=== PATIENT | female | born 1945 | race Caucasian/White ===

== ENCOUNTER 2020-05-11 06:57 | Day surgery (SDC) | payer MEDICARE, OTHER ==
[2020-05-09 10:22] VITALS: BMI 28.5
[~2020-05-11 06:57] MED LIST: ALPRAZolam 0.25 MG TAB PO PRN; ALPRAZolam 0.5 MG TAB PO PRN; ASPIRIN 325 MG TAB PO STA; NITROGLYCERIN SL TABS 0.4 MG TAB SUBLINGUAL PRN; SODIUM CHLORIDE 0.9% 1,000 ML in EMPTY BAG 1 BAG IV ONE
[2020-05-11 07:34] VITALS: TEMP 98.1
[2020-05-11] MEDS ORDERED: SODIUM CHLORIDE 0.9% 1,000 ML IV ONE (07:34)
[2020-05-11 07:38] LABS: African American GFR (CKD) >90 (>60 ml/min/1.73 sqM); Blood Urea Nitrogen 28 mg/dL (7-17); Non-African American GFR(CKD) 79 (>60 ml/min/1.73 sqM)
[2020-05-11 07:54] LABS: Basophils # (A) 0.1 k/uL (0-0.2); Basophils % (A) 1 %; Eosinophils # (A) 0.2 k/uL (0-0.7); Eosinophils % (A) 2 %; HCT 53.5 % (34.0-46.0); HGB 17.1 gm/dL (11.4-16.0); Lymphocytes # (A) 3.7 k/uL (1.0-4.8); Lymphocytes % (A) 39 %; MCH 32.3 pg (25.0-35.0); MCHC 31.9 g/dL (31.0-37.0); MCV 101.1 fL (80.0-100.0); Macrocytosis Slight; Mean Platelet Volume 9.5; Monocytes # (A) 0.4 k/uL (0-1.0); Monocytes % (A) 5 %; Neutrophils # (A) 4.9 k/uL (1.3-7.7); Neutrophils % (A) 52 %; Platelet Count 190 k/uL (150-450); RBC 5.29 m/uL (3.80-5.40); RDW 13.7 % (11.5-15.5); WBC 9.5 k/uL (3.8-10.6)
[2020-05-11] MEDS ORDERED: fentaNYL (PF) 50 MCG/ML 2 ML AMP ONE (08:03)
[2020-05-11] MEDS ORDERED: LIDOCAINE 1% INJ 10MG/ML (20 ML MDV) ONE (08:11)
[2020-05-11] MEDS ORDERED: VERAPAMIL 2.5 MG/ML 2 ML AMP ONE (08:12)
[2020-05-11] MEDS ORDERED: BENZOCAINE SPRAY 1 CAN TOPICAL ONE ×2 (08:15→08:19)
[2020-05-11] MEDS ORDERED: fentaNYL (PF) 50 MCG/ML 2 ML AMP IVP ONE (08:19)
[2020-05-11] MEDS ORDERED: MIDAZOLAM 2 MG/2 ML VIAL IVP ONE ×2 (08:19→08:23)
[2020-05-11] MEDS ORDERED: HEPARIN SODIUM 1,000 UN/ML (10ML VL) ONE (08:50)
[2020-05-11] MEDS ORDERED: HEPARIN SODIUM 1,000 UN/ML (10ML VL) IV ONE (08:53)
[2020-05-11] MEDS ORDERED: IV FLUID CONTINUATION 900 ML IV ONE (08:53)
[2020-05-11] MEDS ORDERED: IOPAMIDOL-370 125ML BTL INJ ONE (08:58)
[2020-05-11] MEDS ORDERED: RX INFO: IV CONTRAST WAS GIVEN 1 EACH MISC MISCELLANE PRN (09:05)
[2020-05-11] MEDS ORDERED: SODIUM CHLORIDE 0.9% 1,000 ML IV SCH (09:15)
--- NOTE | 2020-05-11 09:34 | LTR ---
DATE OF SERVICE: 05/11/2020 RE: Sharmila Ayers Dear Dr. Reynolds; Ms. Sharmila Ayers underwent today heart catheterization and that revealed severe triple-vessel coronary artery disease with heavily calcified right and left coronary systems. Giving the above anatomy, I recommended the patient to be seen and evaluated by cardiothoracic surgeon for the evaluation of coronary artery bypass grafting and possibly repairing the mitral valve at the same time. I want to thank you for allowing us to participate in her care and please do not hesitate to call if you have any question or concern. Sincerely, Aakash Adame MD [id number] / OSMANN: [id number] /
[2020-05-11 09:43] VITALS: RESP 16
--- NOTE | 2020-05-11 09:44 | CC ---
CARDIAC CATHETERIZATION REPORT DATE OF SERVICE: 05/11/2020 PERFORMING PHYSICIAN: Aakash Adame MD. PROCEDURE PERFORMED: 1. Selective right and left coronary angiogram. 2. Left heart catheterization. INDICATION: This is a 74-year-old female patient with coronary artery disease and prior stenting of the LCX and LAD as well as hypertension and dyslipidemia and mitral regurgitation, who was experiencing symptoms of increasing shortness of breath with exertion. She underwent recently a myocardial perfusion imaging stress test and that revealed anterior ischemia and because of that, a heart catheterization was advised. APPROACH: Right radial artery. COMPLICATION: None. LEVEL OF SEDATION: Moderate with sedation length of 16 minutes. COMPLICATION: None. PROCEDURE DESCRIPTION: After obtaining an informed consent, the patient was brought to the cardiac sanitation laborer. The right radial artery was cannulated using micropuncture technique, the micropuncture wire passed easily, then I placed a 5-Welsh sheath in the right radial artery. Subsequently I gave the patient 2 mg of verapamil IA and 6000 units of heparin IV. Selective right and left coronary angiogram performed using JR4 and JL3.5 catheters. Left heart catheterization was performed using 5-Welsh pigtail catheter. The procedure was completed without any complication. SELECTIVE CORONARY ANGIOGRAM: 1. The right coronary artery is a large caliber vessel and it is a dominant vessel. The RCA is extremely calcified and chronically occluded in the midportion and fills by bridging collaterals from the left coronary system. 2. The left main is a large left main but is angiographically normal. Bifurcates into left circumflex and left anterior descending artery. 3. The left circumflex is a large caliber vessel, it is a nondominant vessel. The left circumflex is stented in the proximal portion and the midportion of the left circumflex by the bifurcation of a large obtuse marginal branch has a lesion, appeared to be in the range of 70%. OM branch is a large caliber vessel with 2 lesions. The first lesion appeared to be in the range of 80% and the second lesion distally appeared to be in the range of 90%. The left circumflex after OM continues as a moderate caliber vessel in the AV groove. 4. The left anterior descending artery is extremely calcified and diffusely diseased. The proximal LAD has a long tubular lesion, appeared to be in the range of 80%. The LAD after that lesion is stented with mild in-stent restenosis. The mid LAD has another lesion appeared to be in the range of 80% to 90%. The LAD distally appeared to have another lesion in the range of 99.9%. 5. HEMODYNAMICS: The LVEDP was 20 mmHg without significant gradient across aortic. CONCLUSION: 1. Extremely calcified right and left coronary systems. 2. Chronic total occlusion of the right coronary artery which fills by collateral from the left coronary system. 3. Critical disease involving the left circumflex coronary system with multiple lesions. 4. Critical disease involving the proximal, mid and distal left anterior descending artery with tubular lesions as well. 5. The patient mitral regurgitation is likely to be an ischemic MR related to the RCA occlusion. 6. .. POSTPROCEDURE MANAGEMENT: 1. Maximize medical treatment with high intensity statin. 2. Consult the surgeon for the evaluation of coronary artery bypass grafting. 3. Aggressive cholesterol control and blood pressure control. 4. Follow up with the patient. MMLACEY / IJN: [id number] /
[2020-05-11 13:15] VITALS: BP 157/71; PULSE 69
== END 2020-05-11 13:46 | disposition home or self-care (01) ==
LOC: CATHCVL 06:57
PROVIDERS: ATTEND Internal Medicine Interventional Cardiology
DX: I25.110 Atherosclerotic heart disease of native coronary artery with unstable angina pectoris (principal); I25.82 Chronic total occlusion of coronary artery; T82.855A Stenosis of coronary artery stent, initial encounter; I34.0 Nonrheumatic mitral (valve) insufficiency; I10 Essential (primary) hypertension; E78.5 Hyperlipidemia, unspecified; G35 Multiple sclerosis; F17.210 Nicotine dependence, cigarettes, uncomplicated; Z95.5 Presence of coronary angioplasty implant and graft; Z79.51 Long term (current) use of inhaled steroids; Z79.82 Long term (current) use of aspirin; Z79.899 Other long term (current) drug therapy
CPT/HCPCS: 93458; 82565; 84520; 85025; C1769; C1894; J2250; J3010; J1644; Q9967

== ENCOUNTER → 2020-07-10 | Outpatient (CLI) | payer MEDICARE ==
--- NOTE | 2020-07-10 15:38 | XR ---
EXAMINATION TYPE: XR foot complete LT DATE OF EXAM: 07/10/2020 COMPARISON: NONE HISTORY: Pain TECHNIQUE: Three views are submitted. FINDINGS: The osseous structures are intact. There is no acute fracture or dislocation. Joint spaces are p reserved. Soft tissue edema. No osseous destruction. Calcaneal spur noted. IMPRESSION: 1. No acute fracture or dislocation. If symptoms persist, follow-up exam in 7 to 10 days could be ob tained.
== END | disposition home or self-care (01) ==
LOC: RADXRYALE 15:16
PROVIDERS: ATTEND Internal Medicine
DX: L02.416 Cutaneous abscess of left lower limb (principal)

== ENCOUNTER 2020-08-03 10:43 | Day surgery (SDC) | payer MEDICARE ==
[2020-08-02 09:34] VITALS: BMI 28.9
[2020-08-03] MEDS ORDERED: ALPRAZolam 0.25 MG TAB ONE (11:06)
[2020-08-03] MEDS ORDERED: SODIUM CHLORIDE 0.9% 1,000 ML IV ONE (11:07)
[2020-08-03 11:14] VITALS: RESP 16
[2020-08-03 12:05] LABS: Basophils % (A) 0 %; Eosinophils # (A) 0.2 k/uL (0-0.7); Eosinophils % (A) 2 %; HCT 45.7 % (34.0-46.0); HGB 14.6 gm/dL (11.4-16.0); Lymphocytes # (A) 2.3 k/uL (1.0-4.8); Lymphocytes % (A) 26 %; MCH 31.5 pg (25.0-35.0); MCHC 31.8 g/dL (31.0-37.0); Mean Platelet Volume 9.9; Monocytes # (A) 0.4 k/uL (0-1.0); Monocytes % (A) 4 %; Neutrophils # (A) 5.9 k/uL (1.3-7.7); Neutrophils % (A) 67 %; Platelet Count 142 k/uL (150-450); RBC 4.62 m/uL (3.80-5.40); RDW 14.2 % (11.5-15.5); WBC 8.8 k/uL (3.8-10.6)
[2020-08-03 12:16] LABS: Calcium 9.1 mg/dL (8.4-10.2); Potassium 4.3 mmol/L (3.5-5.1)
[2020-08-03] MEDS: MIDAZOLAM 2 MG/2 ML VIAL IM ONE ×2 (12:30→12:52)
[2020-08-03] MEDS: fentaNYL (PF) 50 MCG/ML 2 ML AMP IVP ONE ×2 (12:33→12:49)
[2020-08-03] MEDS ORDERED: IOPAMIDOL-300 100ML BTL INJ ONE (12:51)
[2020-08-03] MEDS ORDERED: IOPAMIDOL-300 50ML BTL INJ ONE (12:51)
[2020-08-03] MEDS ORDERED: SODIUM CHLORIDE 0.9% 1,000 ML IV SCH (13:15)
--- NOTE | 2020-08-03 13:25 | IR ---
EXAMINATION TYPE: IR angio abdominal w runoff DATE OF EXAM: 08/03/2020 COMPARISON: NONE HISTORY: Fluoroscopy time. Fluoroscopy was provided to the referring clinician.
[2020-08-03] MEDS ORDERED: hydrALAZINE HCL 20 MG/ML 1 ML VIAL ONE (13:41)
[2020-08-03] MEDS ORDERED: HYDROmorphone 0.5 MG/0.5 ML SYRINGE IVP STA ×2 (13:44→17:52)
[2020-08-03] MEDS ORDERED: traMADol 50 MG TAB PO STA (13:54)
[2020-08-03 15:42] VITALS: TEMP 97.6
[2020-08-03 16:30] VITALS: BP 155/68; PULSE 98
--- NOTE | 2020-08-03 19:15 | AN ---
ANGIOGRAPHY REPORT DATE OF SERVICE: August 03, 2020. PERFORMING PHYSICIAN: Aakash Adame MD. PROCEDURE PERFORMED: 1. Abdominal aortogram. 2. Bilateral lower extremities runoff. INDICATION: This is a 74-year-old female patient who was diagnosed recently with critical limb ischemia of the left foot. COMPLICATION: None. LEVEL OF SEDATION: Moderate with sedation length of 17 minutes. PROCEDURE DESCRIPTION: After obtaining an informed consent, the patient was brought to the cardiac drop crew laborer. The right common femoral artery was cannulated using micropuncture technique, the micropuncture wire passed easily. Then I placed a 5-Faroese sheath at the right common femoral artery. I did an abdominal aortogram and bilateral lower extremities runoff using 5-Faroese pigtail catheter. The catheter was initially placed at the level of the renal arteries. Then it was pulled into above the bifurcation of the aorta to right and left common iliac artery. The procedure was completed without any complication. SELECTIVE PERIPHERAL ANGIOGRAM: 1. The aorta appeared to be calcified with mild disease only. 2. Common iliac arteries: The right and left common iliac arteries appear to have mild disease only. 3. External iliac arteries: The right external iliac artery is diffusely diseased up to about 80-90 percent and the left external iliac artery appeared to be occluded. 4. Internal iliac arteries: Both appeared to be patent. 5. Profunda both appeared to be patent. 6. Common femoral arteries: The right common femoral artery appeared to have intermediate to severe disease and the left common femoral artery appeared to have mild disease only. 7. SFA: The right SFA has a critical lesion on multiple areas. The left SFA is occluded from the ostium and reconstitute just by the Dmitry canal. 8. Popliteal: The right popliteal appeared to have mild disease only and the left popliteal appeared to have intermediate disease. 9. Below the knee: There is only one-vessel runoff below the knee bilaterally was peroneal. CONCLUSION: 1. Critical right external iliac and occluded left external iliac. 2. Critical right SFA and occluded left SFA. 3. One vessel runoff below the knee bilaterally with peroneal artery. MMODL / IJN: [id number] /
== END 2020-08-03 19:34 ==
LOC: CATHCVL 10:43 → 1SOBS 14:42 → CATHCVL 19:34
PROVIDERS: ATTEND Internal Medicine Interventional Cardiology
DX: I70.213 Atherosclerosis of native arteries of extremities with intermittent claudication, bilateral legs (principal); I70.245 Atherosclerosis of native arteries of left leg with ulceration of other part of foot; L97.529 Non-pressure chronic ulcer of other part of left foot with unspecified severity; I25.10 Atherosclerotic heart disease of native coronary artery without angina pectoris; I10 Essential (primary) hypertension; E78.5 Hyperlipidemia, unspecified; F17.210 Nicotine dependence, cigarettes, uncomplicated; Z79.82 Long term (current) use of aspirin; Z79.51 Long term (current) use of inhaled steroids; Z79.899 Other long term (current) drug therapy; I74.5 Embolism and thrombosis of iliac artery
CPT/HCPCS: 36200; 75625; 75716; 80048; 85025; C1769 ×4; C1894; J2250; J0360; J3010; J1170; Q9967 ×2

== ENCOUNTER 2020-08-15 11:07 | Day surgery (SDC) | payer MEDICARE ==
[2020-08-09 11:46] VITALS: BMI 28.9
[~2020-08-15 11:07] MED LIST changes: -ALPRAZolam 0.25 MG TAB PO PRN; -ALPRAZolam 0.5 MG TAB PO PRN; +ASPIRIN 325 MG TAB PO PRN; -ASPIRIN 325 MG TAB PO STA; -NITROGLYCERIN SL TABS 0.4 MG TAB SUBLINGUAL PRN; -SODIUM CHLORIDE 0.9% 1,000 ML in EMPTY BAG 1 BAG IV ONE
[2020-08-15] MEDS ORDERED: SODIUM CHLORIDE 0.9% 1,000 ML IV ONE (11:45)
[2020-08-15] MEDS ORDERED: HYDROmorphone 1 MG/ML 1 ML SYRINGE ONE ×2 (11:46→12:41)
[2020-08-15] MEDS ORDERED: ALPRAZolam 0.5 MG TAB ONE (12:00)
[2020-08-15] MEDS: ALPRAZolam 0.25 MG TAB PO PRN ×2 (12:03→20:59)
[2020-08-15] MEDS ORDERED: HYDROmorphone 1 MG/ML 1 ML SYRINGE IVP ONE ×2 (12:45→14:15)
[2020-08-15] MEDS ORDERED: MIDAZOLAM 2 MG/2 ML VIAL IVP ONE (12:52)
[2020-08-15] MEDS ORDERED: MIDAZOLAM 2 MG/2 ML VIAL IV ONE (14:02)
[2020-08-15] MEDS ORDERED: LIDOCAINE 1% INJ 10MG/ML (20 ML MDV) SQ ONE (14:05)
[2020-08-15] MEDS ORDERED: HEPARIN SODIUM 1,000 UN/ML (10ML VL) IV ONE (14:09)
[2020-08-15] MEDS ORDERED: PROPOFOL 10 MG/ML 20 ML VIAL IV ONE (14:24)
[2020-08-15] MEDS ORDERED: IPRATROPIUM 0.5 MG/2.5 ML NEBU INHALATION PRN (16:00)
[2020-08-15] MEDS ORDERED: IOPAMIDOL-250 100ML BTL INTRAARTER ONE (16:16)
[2020-08-15] MEDS ORDERED: CLOPIDOGREL 75 MG TAB PO ONE (16:26)
[2020-08-15] MEDS ORDERED: FLUTICASONE 110 MCG INHALER INHALATION PRN (16:44)
[2020-08-15] MEDS ORDERED: CANNABIDIOL 100 MG/ML TOPICAL PRN (16:44)
[2020-08-15] MEDS ORDERED: SODIUM CHLORIDE 0.9% 1,000 ML in EMPTY BAG 1 BAG IV SCH (16:45)
[2020-08-15] MEDS ORDERED: SYMBICORT 80-4.5 MCG INHALER INHALATION PRN (16:59)
[2020-08-15] MEDS ORDERED: HYDROmorphone 0.5 MG/0.5 ML SYRINGE IVP PRN (17:22)
[2020-08-15] MEDS: HYDROmorphone 1 MG/ML 1 ML SYRINGE IVP PRN ×2 (17:29→20:59)
[2020-08-15] MEDS ORDERED: ATROPINE SULFATE 0.1 MG/ML 10ML SYRINGE ONE (18:34)
--- NOTE | 2020-08-15 20:43 | PCN ---
PROCEDURE NOTE DATE OF SERVICE: 08/15/2020 PERFORMING PHYSICIAN: Aakash Adame M.D. PROCEDURES PERFORMED: 1. Atherectomy of the left common femoral artery using the directional atherectomy device and using the HawkOne device. 2. Successful stenting of the right and left external iliac arteries using self- expandable stents with excellent angiographic results. 3. Successful stenting of the left SFA using a 7.0 x 140 mm Zilver PTX drug-coated stent with an excellent angiographic result. 4. Successful balloon angioplasty of the left popliteal. 5. Selective angiogram of bilateral common iliac arteries and external iliac arteries as well as left SFA and left [id number] and right common femoral artery. 6. Ultrasound-guided access of the right common femoral artery. INDICATION: This is a 74-year-old female patient with extensive coronary artery disease who was diagnosed recently with critical limb ischemia of the left foot. She underwent an angiogram which revealed severe aortoiliac disease and severe femoropopliteal disease and severe jlpjn-khz-vfra disease bilaterally. She was brought today to undergo an intervention. APPROACH: Right common femoral artery. COMPLICATIONS: None. LEVEL OF SEDATION: Moderate, with sedation length of 125 minutes. PROCEDURE DESCRIPTION: After obtaining informed consent, the patient was brought to the cardiac cardiac cath technologist. The right common femoral artery was cannulated using micropuncture technique under ultrasound guidance. The micropuncture wire passed easily. Then I placed a 6-Chilean sheath 70 cm at the right common femoral artery. Initially I did balloon angioplasty of the right external iliac artery because it was severely diseased. Subsequently I did select the left profunda using an 0.035 stiff Glidewire with the back-up support of 5-Chilean RIM catheter. Subsequently I did advance the 6-Chilean Raabe sheath over the RIM catheter and 0.035 stiff Glidewire to the proximal left common iliac artery. I did cross the PSYCHIATRIC CLINICAL NURSE SPECIALIST of the left external iliac artery using 0.035 stiff Glidewire with the back-up support of CXI catheter. Subsequently I did balloon angioplasty and stenting of the left external iliac artery using an 8 x 80 mm self-expandable stent. After that the sheath was advanced through the stent all the way to the left common femoral artery. PSYCHIATRIC CLINICAL NURSE SPECIALIST crossing of the left SFA was performed using 0.018 staley-tipped Glidewire with the back-up support of 0.018 CXI catheter. Subsequently I did exchange my 0.018 wire for an 0.014 wire. Balloon angioplasty was performed using a 5 mm balloon with inadequate angiographic results. Subsequently I placed 2 stents in the left SFA. Both stents were Zilver PTX. The first stent was 6 x 140 and the second stent was 6 x 140 mm. I did after that postdilatation using 5 mm balloon with the following angiogram showing excellent angiographic results. I did after that atherectomy of the left common femoral artery using the HawkOne device and then balloon angioplasty using a 6 mm Chocolate balloon with the following angiogram showing excellent angiographic results. For the left popliteal, there was a lesion that appeared to be in the range of 60%. I did on it balloon angioplasty using a 5 mm Chocolate balloon. By the end I did successful stenting of the right external iliac artery using an 8 x 100 mm self-expandable stent which was post-dilated using a 7 mm balloon with an excellent angiographic result. By the end, I did selective right common femoral artery angiogram after I exchanged my sheath for a short sheath. The procedure was completed without any complication. POST-PROCEDURE MANAGEMENT: 1. Dual anti-platelet therapy. 2. Aggressive cholesterol control. 3. Risk factor modifications. 4. Follow up with the patient. MMODL / IJN: [id number] /
[2020-08-15] MEDS: RANOLAZINE 500 MG TAB.ER.12H PO SCH (20:59)
[2020-08-15] MEDS ORDERED: ATORVASTATIN 80 MG TAB PO SCH (21:00)
[2020-08-16] MEDS: HYDROmorphone 1 MG/ML 1 ML SYRINGE IVP PRN (03:27)
[2020-08-16 05:11] VITALS: RESP 20; TEMP 98.4
[2020-08-16 07:31] LABS: African American GFR (CKD) >90 (>60 ml/min/1.73 sqM); Anion Gap 3 mmol/L; Blood Urea Nitrogen 18 mg/dL (7-17); Calcium 8.6 mg/dL (8.4-10.2); Carbon Dioxide 29 mmol/L (22-30); Chloride 104 mmol/L (98-107); Glucose 89 mg/dL (74-99); Non-African American GFR(CKD) 85 (>60 ml/min/1.73 sqM); Potassium 3.8 mmol/L (3.5-5.1); Sodium 136 mmol/L (137-145)
[2020-08-16 07:37] LABS: Basophils # (A) 0.1 k/uL (0-0.2); Basophils % (A) 1 %; Eosinophils # (A) 0.1 k/uL (0-0.7); Eosinophils % (A) 1 %; HCT 42.8 % (34.0-46.0); HGB 13.7 gm/dL (11.4-16.0); Lymphocytes # (A) 2.1 k/uL (1.0-4.8); Lymphocytes % (A) 23 %; MCH 32.2 pg (25.0-35.0); MCV 100.6 fL (80.0-100.0); Macrocytosis Slight; Mean Platelet Volume 8.6; Monocytes # (A) 0.4 k/uL (0-1.0); Monocytes % (A) 5 %; Neutrophils # (A) 6.2 k/uL (1.3-7.7); Neutrophils % (A) 69 %; Platelet Count 213 k/uL (150-450); RBC 4.26 m/uL (3.80-5.40)
[2020-08-16] MEDS: RANOLAZINE 500 MG TAB.ER.12H PO SCH (08:50)
[2020-08-16] MEDS ORDERED: CYANOCOBALAMIN 500 MCG TAB PO SCH (09:00)
[2020-08-16] MEDS ORDERED: ISOSORBIDE MONONITRATE ER 30 MG TAB.ER.24H PO SCH (09:00)
[2020-08-16] MEDS ORDERED: CHOLECALCIFEROL 25 MCG (1000 IU) TABLET PO SCH (09:00)
[2020-08-16] MEDS ORDERED: METOPROLOL SUCCINATE (ER) 25 MG TAB.ER.24H PO SCH (09:00)
[2020-08-16] MEDS ORDERED: FUROSEMIDE 20 MG TAB PO SCH (09:00)
[2020-08-16] MEDS ORDERED: ASPIRIN 81 MG PO SCH (09:00)
[2020-08-16] MEDS ORDERED: ASCORBIC ACID 500 MG TAB PO SCH (09:00)
[2020-08-16] MEDS ORDERED: LOSARTAN 25 MG TAB PO SCH (09:00)
--- NOTE | 2020-08-16 10:21 | IR ---
EXAMINATION TYPE: IR machine captain iliac DATE OF EXAM: 08/15/2020 COMPARISON: NONE HISTORY: Fluoroscopy time. Fluoroscopy was provided to the referring clinician.
[2020-08-16 10:31] VITALS: BP 138/75; PULSE 92
--- NOTE | 2020-08-16 16:15 | DS ---
DISCHARGE SUMMARY DATE OF SERVICE: 08/16/2020 ADMISSION DATE: August 15, 2020. DISCHARGE DATE: August 16, 2020. BRIEF HISTORY: This is a 74-year-old female patient who underwent yesterday successful CUSTOMER PROGRAM SPECIALIST of the right iliac and left iliac and left SFA. The procedure was performed from the right groin. The right groin is soft and nontender and without any bruises. The patient is going to be discharged home on dual anti-platelet therapy and I will follow up with the patient next week in the office. MMODL / IJN: [id number] /
== END 2020-08-16 12:26 | disposition home or self-care (01) ==
LOC: CATHCVL 11:07 → 3SCARD 16:09 → CATHCVL 08-16 12:26
PROVIDERS: ATTEND Internal Medicine Interventional Cardiology
DX: I70.223 Atherosclerosis of native arteries of extremities with rest pain, bilateral legs (principal); I10 Essential (primary) hypertension; I25.10 Atherosclerotic heart disease of native coronary artery without angina pectoris; E78.5 Hyperlipidemia, unspecified; J44.9 Chronic obstructive pulmonary disease, unspecified; G47.33 Obstructive sleep apnea (adult) (pediatric); M19.90 Unspecified osteoarthritis, unspecified site; Z88.8 Allergy status to other drugs, medicaments and biological substances; Z79.82 Long term (current) use of aspirin; Z79.899 Other long term (current) drug therapy; Z98.890 Other specified postprocedural states
CPT/HCPCS: 37221; 37223; 37227; 80048; 85025; C1894 ×2; C1769 ×8; C1725 ×4; C1876; C1714; C1874; J2250; J2001; J1644; J1170 ×3; J2704; Q9966

== ENCOUNTER 2020-08-17 18:02 | Inpatient (IN) | payer MEDICARE ==
[2020-08-17] MEDS ORDERED: PIPERACILLIN-TAZOBACTAM 3.375 GM in SODIUM CHLORIDE 0.9% 100 ML IVPB STA (18:17)
[2020-08-17] MEDS ORDERED: HYDROmorphone 0.5 MG/0.5 ML SYRINGE IVP STA ×2 (18:17→19:32)
[2020-08-17] MEDS ORDERED: VANCOMYCIN IV PER PHARMACY 1 EACH MISC MISCELLANE PRN (18:18)
--- NOTE | 2020-08-17 18:24 | ED ---
General Adult HPI - General Chief complaint: Skin/Abscess/Foreign Body Stated complaint: post cath/stent in leg/toes are black Time Seen by Provider: 08/17/20 18:05 Source: patient, RN notes reviewed, old records reviewed Mode of arrival: ambulatory Limitations: no limitations - History of Present Illness Initial comments: This is a 74-year-old female who presents emergency department with past medical history significant for diabetes as well as chronic wound on her left foot. Patient states back as though she hit the foot on a door of a car and since then she's had a wound on the medial aspect of her left foot she has since had difficulty healing so more recently she had [address] Adame in the left leg. Patient states that occurred on Thursday and since that time the pain is worse in the blisters are getting worse and the erythema is worse and she states the dorsal aspect of the toes are all open wounds now and expressing quite a bit of pus according to the patient. Patient denies any fever or chills. Patient states the posterior is on the medial aspect of her left leg about 6 inches from her foot and that has now ruptured and the area around it is all erythematous. - Related Data Home Medications Medication Instructions Recorded Confirmed Aspirin [Adult Low Dose Aspirin EC] 81 mg PO DAILY 05/09/20 08/15/20 Cannabidiol (Cbd) [Epidiolex] 1 dose TOPICAL DAILY PRN 05/09/20 08/09/20 Cholecalciferol [Vitamin D3 (25 2,000 unit PO DAILY 05/09/20 08/15/20 Mcg = 1000 Iu)] Cyanocobalamin (Vitamin B-12) 1,000 mcg PO DAILY 05/09/20 08/15/20 [Vitamin B-12] Fluticasone Propionate 110 Mcg 1 puff INHALATION DAILY PRN 05/09/20 08/15/20 [Flovent 110 Mcg Inhaler (Mhu)] Fluticasone/Umeclidin/Vilanter 1 inhalation INHALATION DAILY PRN 05/09/20 08/15/20 [Trelegy Ellipta 100-62.5-25] Isosorbide Mononitrate ER [Imdur] 30 mg PO DAILY 05/09/20 08/15/20 Ascorbic Acid [Vitamin C] 500 mg PO DAILY 08/02/20 08/15/20 Atorvastatin [Lipitor] 80 mg PO HS 08/02/20 08/15/20 Losartan [Cozaar] 25 mg PO DAILY 08/02/20 08/15/20 Metoprolol Succinate [Toprol XL] 25 mg PO DAILY 08/02/20 08/15/20 Ranolazine [Ranexa] 500 mg PO BID 08/02/20 08/15/20 Furosemide [Lasix] 20 mg PO DAILY 08/09/20 08/15/20 Previous Rx's Medication Instructions Recorded Clopidogrel Bisulfate [Plavix] 75 mg PO DAILY #90 tab 08/16/20 Allergies Allergy/AdvReac Type Severity Reaction Status Date / Time sumatriptan [From Imitrex] Allergy Chest Pain Verified 08/17/20 18:09 Review of Systems ROS Statement: Those systems with pertinent positive or pertinent negative responses have been documented in the HPI. ROS Other: All systems not noted in ROS Statement are negative. Past Medical History Past Medical History: COPD, Hyperlipidemia, Hypertension, Neurologic Disorder, Osteoarthritis (OA), Skin Disorder, Sleep Apnea/CPAP/BIPAP, Vascular Disorder Additional Past Medical History / Comment(s): "leaky mitral valve", wound left foot-multiple areas, seen in wound center, [place], occasional use of oxygen for sleep apnea, doesn't use CPAP. [place] History of Any Multi-Drug Resistant Organisms: None Reported Past Surgical History: Appendectomy, Breast Surgery, Heart Catheterization With Stent, Tonsillectomy Additional Past Surgical History / Comment(s): joya benign breast biopsy, leg stents bilat. Past Anesthesia/Blood Transfusion Reactions: No Reported Reaction, Motion Sickness Date of Last Stent Placement:: 2009 Past Psychological History: Anxiety, Depression Smoking Status: Former smoker Past Alcohol Use History: None Reported Past Drug Use History: None Reported - Past Family History Mother Family Medical History: Diabetes Mellitus General Exam - General Exam Comments Initial Comments: GENERAL: Patient is well-developed and well-nourished. Patient is nontoxic and well- hydrated and is in moderate distress. ENT: Neck is soft and supple. No significant lymphadenopathy is noted. Oropharynx is clear. Moist mucous membranes. Neck has full range of motion without eliciting any pain. EYES: The sclera were anicteric and conjunctiva were pink and moist. Extraocular movements were intact and pupils were equal round and reactive to light. Eyelids were unremarkable. PULMONARY: Unlabored respirations. Good breath sounds bilaterally. No audible rales rhonchi or wheezing was noted. CARDIOVASCULAR: There is a regular rate and rhythm without any murmurs gallops or rubs. ABDOMEN: Soft and nontender with normal bowel sounds. SKIN: Patient has a open wound on the medial aspect of the left leg and the distal portion it was a blister which appears to recently ruptured measures about 5 cm in diameter patient also has toes 23 and 4 which all have open wounds on the dorsal surface and are malodorous and draining pus. Patient also has a chronic wound to the heel and to the plantar surface of the foot neither of which appears to be red NEUROLOGIC: Patient is alert and oriented x3. Cranial nerves II through XII are grossly intact. Motor and sensory are also intact. Normal speech, volume and content. Symmetrical smile. MUSCULOSKELETAL: Normal extremities with adequate strength and full range of motion. Patient has Refill in the toes on the left foot and just about 2 seconds. LYMPHATICS: No significant lymphadenopathy is noted PSYCHIATRIC: Normal psychiatric evaluation. Limitations: no limitations Course Vital Signs 08/17/20 18:04 Temperature 98.2 F Pulse Rate 50 L Respiratory 18 Rate Blood Pressure 130/89 O2 Sat by Pulse 97 Oximetry Medical Decision Making - Medical Decision Making EKG shows sinus rhythm occasional PVC at 97 bpm NE interval is 182 QRS is 72 QT interval 374 QTC is 474. Patient's EKG has inverted T waves in leads 2 and 3 as well as V5 and V6. Patient was started on Zosyn and vancomycin the emergency department. Patient's x-ray of the foot shows no obvious osteomyelitis. I spoke with [facility] significant admit the patient admitted the patient wrote admitting orders. - Lab Data Result diagrams: 08/17/20 18:50 08/17/20 18:50 Lab Results 08/17/20 08/17/20 08/17/20 Range/Units 18:50 18:50 18:50 WBC 10.1 (3.8-10.6) k/uL RBC 4.75 (3.80-5.40) m/uL Hgb 15.3 (11.4-16.0) gm/dL Hct 46.6 H (34.0-46.0) % MCV 98.3 (80.0-100.0) fL MCH 32.1 (25.0-35.0) pg MCHC 32.7 (31.0-37.0) g/dL RDW 15.0 (11.5-15.5) % Plt Count 221 (150-450) k/uL MPV 8.5 Neutrophils % 74 % Lymphocytes % 16 % Monocytes % 7 % Eosinophils % 1 % Basophils % 0 % Neutrophils # 7.4 (1.3-7.7) k/uL Lymphocytes # 1.6 (1.0-4.8) k/uL Monocytes # 0.7 (0-1.0) k/uL Eosinophils # 0.1 (0-0.7) k/uL Basophils # 0.0 (0-0.2) k/uL Macrocytosis Slight PT 10.1 (9.0-12.0) sec INR 0.9 (<1.2) APTT 22.4 (22.0-30.0) sec Sodium 138 (137-145) mmol/L Potassium 4.0 (3.5-5.1) mmol/L Chloride 104 (98-107) mmol/L Carbon Dioxide 26 (22-30) mmol/L Anion Gap 8 mmol/L BUN 25 H (7-17) mg/dL Creatinine 0.70 (0.52-1.04) mg/dL Est GFR (CKD-EPI)AfAm >90 (>60 ml/min/1.73 sqM) Est GFR (CKD-EPI)NonAf 87 (>60 ml/min/1.73 sqM) Glucose 134 H (74-99) mg/dL Plasma Lactic Acid Harrison (0.7-2.0) mmol/L Calcium 9.2 (8.4-10.2) mg/dL Total Bilirubin 0.6 (0.2-1.3) mg/dL AST 35 (14-36) U/L ALT 35 H (4-34) U/L Alkaline Phosphatase 78 (38-126) U/L Total Protein 6.7 (6.3-8.2) g/dL Albumin 3.5 (3.5-5.0) g/dL 08/17/20 Range/Units 18:50 WBC (3.8-10.6) k/uL RBC (3.80-5.40) m/uL Hgb (11.4-16.0) gm/dL Hct (34.0-46.0) % MCV (80.0-100.0) fL MCH (25.0-35.0) pg MCHC (31.0-37.0) g/dL RDW (11.5-15.5) % Plt Count (150-450) k/uL MPV Neutrophils % % Lymphocytes % % Monocytes % % Eosinophils % % Basophils % % Neutrophils # (1.3-7.7) k/uL Lymphocytes # (1.0-4.8) k/uL Monocytes # (0-1.0) k/uL Eosinophils # (0-0.7) k/uL Basophils # (0-0.2) k/uL Macrocytosis PT (9.0-12.0) sec INR (<1.2) APTT (22.0-30.0) sec Sodium (137-145) mmol/L Potassium (3.5-5.1) mmol/L Chloride (98-107) mmol/L Carbon Dioxide (22-30) mmol/L Anion Gap mmol/L BUN (7-17) mg/dL Creatinine (0.52-1.04) mg/dL Est GFR (CKD-EPI)AfAm (>60 ml/min/1.73 sqM) Est GFR (CKD-EPI)NonAf (>60 ml/min/1.73 sqM) Glucose (74-99) mg/dL Plasma Lactic Acid Harrison 1.5 (0.7-2.0) mmol/L Calcium (8.4-10.2) mg/dL Total Bilirubin (0.2-1.3) mg/dL AST (14-36) U/L ALT (4-34) U/L Alkaline Phosphatase (38-126) U/L Total Protein (6.3-8.2) g/dL Albumin (3.5-5.0) g/dL Disposition Clinical Impression: Infected wound, Decubitus ulcer of foot Disposition: ADMITTED IP TO THIS HOSP Referrals: Sydnie Reynolds MD [Primary Care Provider] - 1-2 days Time of Disposition: 19:29
[2020-08-17] MEDS ORDERED: VANCOMYCIN 1,250 MG in SODIUM CHLORIDE 0.9% 250 ML IVPB ONE (18:45)
[2020-08-17 19:01] LABS: Basophils % (A) 0 %; Eosinophils # (A) 0.1 k/uL (0-0.7); Eosinophils % (A) 1 %; HCT 46.6 % (34.0-46.0); HGB 15.3 gm/dL (11.4-16.0); Lymphocytes # (A) 1.6 k/uL (1.0-4.8); Lymphocytes % (A) 16 %; MCH 32.1 pg (25.0-35.0); MCHC 32.7 g/dL (31.0-37.0); MCV 98.3 fL (80.0-100.0); Macrocytosis Slight; Mean Platelet Volume 8.5; Monocytes # (A) 0.7 k/uL (0-1.0); Monocytes % (A) 7 %; Neutrophils # (A) 7.4 k/uL (1.3-7.7); Neutrophils % (A) 74 %; Platelet Count 221 k/uL (150-450); RBC 4.75 m/uL (3.80-5.40); WBC 10.1 k/uL (3.8-10.6)
--- NOTE | 2020-08-17 19:05 | XR ---
EXAMINATION TYPE: XR foot complete LT DATE OF EXAM: 08/17/2020 COMPARISON: 07/10/2020 HISTORY: Foot pain TECHNIQUE: 3 views FINDINGS: There is soft tissue swelling of the forefoot and midfoot. There is plantar calcaneal spurr ing. Metatarsals are intact there is soft tissue swelling of the toes. IMPRESSION: Soft tissue swelling increased compared to old exam. No focal bone destruction.
[2020-08-17 19:07] LABS: ALT 35 U/L (4-34); AST 35 U/L (14-36); African American GFR (CKD) >90 (>60 ml/min/1.73 sqM); Albumin 3.5 g/dL (3.5-5.0); Alkaline Phosphatase 78 U/L (38-126); Anion Gap 8 mmol/L; Blood Urea Nitrogen 25 mg/dL (7-17); Calcium 9.2 mg/dL (8.4-10.2); Carbon Dioxide 26 mmol/L (22-30); Chloride 104 mmol/L (98-107); Glucose 134 mg/dL (74-99); Non-African American GFR(CKD) 87 (>60 ml/min/1.73 sqM); Sodium 138 mmol/L (137-145); Total Bilirubin 0.6 mg/dL (0.2-1.3); Total Protein 6.7 g/dL (6.3-8.2)
[2020-08-17 19:11] LABS: INR 0.9 (<1.2); Partial Thromboplastin Time 22.4 sec (22.0-30.0); Prothrombin Time 10.1 sec (9.0-12.0)
[2020-08-17] MEDS: SODIUM CHLORIDE 0.9% 500 ML 500 ML IV SCH ×2 (19:16→21:04)
[2020-08-17] MEDS ORDERED: SODIUM CHLORIDE 0.9% 1,000 ML IV ONE (19:30)
[2020-08-17] MEDS ORDERED: HYDROmorphone 0.5 MG/0.5 ML SYRINGE IM PRN (19:32)
[2020-08-17] MEDS ORDERED: KETOROLAC 15 MG/ML 1 ML VIAL IVP STA (19:53)
[2020-08-17 19:59] LABS: Appearance,Urine Clear (Clear); Bilirubin,Urine Negative (Negative); Blood,Urine Negative (Negative); Color,Urine Yellow; Glucose,Urine (UA) Negative (Negative); Hyaline Casts,Urine 4 /lpf (0-2); Ketones,Urine Negative (Negative); Leukocyte Esterase,Urine Trace (Negative); Mucus,Urine Rare /hpf; Nitrite,Urine Negative (Negative); Protein,Urine Negative (Negative); RBC,Urine 1 /hpf (0-5); Specific Gravity,Urine 1.017 (1.001-1.035); Squamous Epithelial Cell,Urine 3 /hpf (0-4); Urobilinogen,Urine <2.0 mg/dL (<2.0); WBC,Urine 3 /hpf (0-5)
[2020-08-17] MEDS ORDERED: ALPRAZolam 0.25 MG TAB PO STA (23:11)
[2020-08-17] MEDS: HYDROmorphone 1 MG/ML 1 ML SYRINGE IVP PRN (23:26)
[2020-08-18] MEDS: PIPERACILLIN-TAZOBACTAM 3.375 GM in SODIUM CHLORIDE 0.9% 100 ML IVPB SCH ×2 (04:01→12:54)
[2020-08-18] MEDS: HYDROmorphone 1 MG/ML 1 ML SYRINGE IVP PRN ×5 (04:34→20:57)
[2020-08-18] MEDS: LOSARTAN 25 MG TAB PO SCH (09:14)
[2020-08-18] MEDS: VANCOMYCIN 1,250 MG in SODIUM CHLORIDE 0.9% 250 ML IVPB SCH (12:53)
[2020-08-18] MEDS: SODIUM CHLORIDE 0.9% 1,000 ML IV SCH (13:05)
[2020-08-18] MEDS ORDERED: FUROSEMIDE 20 MG TAB PO PRN (13:12)
--- NOTE | 2020-08-18 13:22 | P.CRDCN ---
History of Present Illness Consult date: 08/18/20 Reason for Consult (text): Chronic toe wounds History of present illness: HISTORY OF PRESENT ILLNESS This is a 74-year-old female patient of Dr. Adame with past medical history significant for coronary artery disease with remote stenting of the LAD, valvular heart disease, critical limb ischemia of the left foot, hypertension, dyslipidemia, recently quit tobacco use. Patient has undergone angiogram which revealed severe aortoiliac disease and severe femoropopliteal disease and severe below the knee disease bilaterally. On August 15, patient underwent atherectomy of the left common femoral artery, stenting of the right and left external iliac arteries, successful stenting of the left SFA, balloon angioplasty of the left popliteal and angiogram. Patient was recommended for dual antiplatelet therapy, aggressive cholesterol control and risk factor modifications. Patient also underwent heart catheterization in April 2020 which revealed extremely calcified right and left coronary systems. Chronic total occlusion of the right coronary artery that fills by collaterals from the left. Critical disease involving the left circumflex coronary artery with multiple lesions. Critical disease involving the proximal mid and distal left anterior descending artery with tubular lesions as well. Patient also had a mitral regurgitation likely ischemic related to RCA occlusion. Patient presented to the emergency center on August 17 with complaints of wounds and increasing pain worse to the blistered areas. She also complains of increasing erythema and wound drainage. EKG was a sinus rhythm with no acute changes. X-ra y of the foot shows no obvious osteomyelitis. CBC and BMP unremarkable. Lactic acid 1.5. Troponin 0.07, 0.72, 0.066. REVIEW OF SYSTEMS Constitutional: No fever, no chills. EENT: No headache. No dizziness. Lungs: No shortness of breath, cough, no sputum production. No wheezing. Cardiovascular: No chest pain, no lower extremity edema. No palpitations. No paroxysmal nocturnal dyspnea. No orthopnea. No lightheadedness or dizziness. No syncopal episodes. Abdominal: No abdominal pain. No nausea, vomiting. Genitourinary: No dysuria.. No urinary retention. Musculoskeletal: No myalgias. No muscle weakness, no gait dysfunction, no frequent falls. No back pain. No neck pain. Integumentary: Reports worsening wounds. PHYSICAL EXAMINATION Gen: This is a 74-year-old female. Patient is resting been appears to be comfortable and in no acute distress. VS: Afebrile, heart rate 115, blood pressure 172/72, pulse ox 97% on room air. HEENT: Head is atraumatic, normocephalic. Pupils equal, round. Sclerae is anicteric. NECK: Supple. No JVD. No lymphadenopathy. No thyromegaly. LUNGS: Diminished bilaterally. No intercostal retractions. HEART: Regular rate and rhythm. Systolic murmur. ABDOMEN: Soft. Bowel sounds are present. No masses. No tenderness. EXTREMITIES: Multiple bilateral lower extremity wounds/ulcers. Erythema and edema. Please see nursing neck mentation for details. NEUROLOGICAL: Patient is awake, alert and oriented x3. Cranial nerves 2 through 12 are grossly intact. ASSESSMENT Severe peripheral artery disease Severe triple-vessel coronary artery disease Valvular heart disease with mitral regurgitation Hypertension Dyslipidemia History of tobacco use and dependence PLAN Recommend continuing current IV antibiotics per infectious disease No plan for surgical intervention at this time Resume patient's cardiac medications including aspirin 81 mg daily, Lipitor 80 mg at bedtime, Plavix 75 mg daily, Lasix 20 mg twice daily as needed, Imdur 30 mg daily, Toprol-XL 25 mg daily, Ranexa 500 mg twice sidney Continue losartan 25 mg daily Further recommendations to follow based upon clinical course Thank you kindly for this consultation. Nurse practitioner note has been reviewed, I agree with documented findings and plan of care. Patient was seen and examined. Past Medical History Past Medical History: COPD, Hyperlipidemia, Hypertension, Neurologic Disorder, Osteoarthritis (OA), Skin Disorder, Sleep Apnea/CPAP/BIPAP, Vascular Disorder Additional Past Medical History / Comment(s): "leaky mitral valve", wound left foot-multiple areas, seen in wound center, MS, occasional use of oxygen for sleep apnea, doesn't use CPAP. MS History of Any Multi-Drug Resistant Organisms: None Reported Past Surgical History: Appendectomy, Breast Surgery, Heart Catheterization With Stent, Tonsillectomy Additional Past Surgical History / Comment(s): joya benign breast biopsy, leg stents bilat. Past Anesthesia/Blood Transfusion Reactions: No Reported Reaction, Motion Sickness Date of Last Stent Placement:: 2009 Past Psychological History: Anxiety, Depression Smoking Status: Former smoker Past Alcohol Use History: None Reported Additional Past Alcohol Use History / Comment(s): smoker since age 17 1-1 1/2ppd, quit smoking 2 month ago Past Drug Use History: None Reported Additional Drug Use History / Comment(s): cbd lotion - Past Family History Mother Family Medical History: Diabetes Mellitus Medications and Allergies Home Medications Medication Instructions Recorded Confirmed Type Aspirin [Adult Low Dose Aspirin EC] 81 mg PO DAILY 05/09/20 08/17/20 History Cyanocobalamin (Vitamin B-12) 1,000 mcg PO DAILY 05/09/20 08/17/20 History [Vitamin B-12] Isosorbide Mononitrate ER [Imdur] 30 mg PO DAILY 05/09/20 08/17/20 History Ascorbic Acid [Vitamin C] 500 mg PO DAILY 08/02/20 08/17/20 History Atorvastatin [Lipitor] 80 mg PO HS 08/02/20 08/17/20 History Losartan [Cozaar] 25 mg PO DAILY 08/02/20 08/17/20 History Metoprolol Succinate [Toprol XL] 25 mg PO DAILY 08/02/20 08/17/20 History Ranolazine [Ranexa] 500 mg PO BID 08/02/20 08/17/20 History Furosemide [Lasix] 20 mg PO BID PRN 08/09/20 08/17/20 History Clopidogrel Bisulfate [Plavix] 75 mg PO DAILY #90 tab 08/16/20 08/17/20 Rx Cholecalciferol [Vitamin D3 (25 25 mcg PO DAILY 08/17/20 08/17/20 History Mcg = 1000 Iu)] Collagenase [Santyl] 1 applic TOPICAL DAILY 08/17/20 08/17/20 History traMADol HCl [Ultram] 50 mg PO BID PRN 08/17/20 08/17/20 History Allergies Allergy/AdvReac Type Severity Reaction Status Date / Time sumatriptan [From Imitrex] Allergy Chest Pain Verified 08/17/20 20:11 Physical Exam Vitals: Vital Signs Temp Pulse Pulse Resp BP BP Pulse Ox 08/18/20 08:45 98.1 F 115 H 18 172/72 97 08/18/20 04:00 91 18 147/66 96 08/18/20 02:00 87 18 08/18/20 00:00 98.0 F 87 18 132/65 98 08/17/20 21:15 98 F 90 18 136/60 99 08/17/20 20:30 98.0 F 101 H 18 126/63 97 08/17/20 18:04 98.2 F 50 L 18 130/89 97 Intake and Output 08/17/20 08/18/20 08/18/20 22:59 06:59 14:59 Intake Total 550 Balance 550 Intake: Intake, IV Titration 250 Amount Vancomycin 1,250 mg In 250 Sodium Chloride 0.9% 250 ml @ 125 mls/hr IVPB ONCE ONE Rx#:[id number] Oral 300 Other: Voiding Method Indwelling Catheter # Voids 1 Weight 65.317 kg 71.5 kg Results 08/17/20 18:50 08/17/20 18:50 Cardiac Enzymes 08/17/20 08/17/20 08/17/20 Range/Units 18:50 19:15 23:34 AST 35 (14-36) U/L Troponin I 0.070 H* 0.072 H* (0.000-0.034) ng/mL 08/18/20 Range/Units 02:07 AST (14-36) U/L Troponin I 0.066 H* (0.000-0.034) ng/mL Coagulation 08/17/20 Range/Units 18:50 PT 10.1 (9.0-12.0) sec APTT 22.4 (22.0-30.0) sec CBC 08/17/20 Range/Units 18:50 WBC 10.1 (3.8-10.6) k/uL RBC 4.75 (3.80-5.40) m/uL Hgb 15.3 (11.4-16.0) gm/dL Hct 46.6 H (34.0-46.0) % Plt Count 221 (150-450) k/uL Comprehensive Metabolic Panel 08/17/20 Range/Units 18:50 Sodium 138 (137-145) mmol/L Potassium 4.0 (3.5-5.1) mmol/L Chloride 104 (98-107) mmol/L Carbon Dioxide 26 (22-30) mmol/L BUN 25 H (7-17) mg/dL Creatinine 0.70 (0.52-1.04) mg/dL Glucose 134 H (74-99) mg/dL Calcium 9.2 (8.4-10.2) mg/dL AST 35 (14-36) U/L ALT 35 H (4-34) U/L Alkaline Phosphatase 78 (38-126) U/L Total Protein 6.7 (6.3-8.2) g/dL Albumin 3.5 (3.5-5.0) g/dL Current Medications Generic Name Dose Route Start Last Admin Trade Name Freq PRN Reason Stop Dose Admin Hydromorphone HCl 1 mg 08/17/20 23:30 08/18/20 12:49 Hydromorphone 1 Mg/Ml 1 Ml Syringe IVP 1 mg Q4HR PRN Administration Pain Piperacillin Sod/Tazobactam 100 mls @ 25 mls/hr 08/18/20 04:00 08/18/20 12:54 Sod 3.375 gm/ Sodium Chloride IVPB 25 mls/hr Q8H MARY ANNE Administration Vancomycin HCl 1,250 mg/ 250 mls @ 125 mls/hr 08/18/20 12:00 08/18/20 12:53 Sodium Chloride IVPB 125 mls/hr Q16H MARY ANNE Administration Losartan Potassium 25 mg 08/18/20 09:00 08/18/20 09:14 Losartan 25 Mg Tab PO 25 mg DAILY MARY ANNE Administration Intake and Output 08/17/20 08/18/20 08/18/20 22:59 06:59 14:59 Intake Total 550 Balance 550 Intake: Intake, IV Titration 250 Amount Vancomycin 1,250 mg In 250 Sodium Chloride 0.9% 250 ml @ 125 mls/hr IVPB ONCE ONE Rx#:[id number] Oral 300 Other: Voiding Method Indwelling Catheter # Voids 1 Weight 65.317 kg 71.5 kg 08/17/20 18:50 08/17/20 18:50
--- NOTE | 2020-08-18 14:26 | P.HPIM ---
History of Present Illness This is a pleasant 74 years old female with multiple medical problems including COPD, hyperlipidemia, hypertension, osteoarthritis, multiple sclerosis, sleep apnea with is not compliant with CPAP. She was recently diagnosed with critical limb ischemia of the left foot and she underwent angiogram which revealed severe aortoiliac disease and severe femoral popliteal disease and severe [id number] disease bilaterally. She underwent atherectomy of the left common femoral artery, successful stenting of the right and left external iliac arteries, successful stenting of the left SFA and balloon angioplasty of the left popliteal. She was discharged yesterday. Presents because of worsening blisters and erythema associated with pain and purulent discharge. Patient states that she's been having worsening left lower extremity ischemic symptoms since March however lately for the last couple days the pain become more severe and she cannot take it anymore especially she ran out of her pain medication so she decided to come to emergency room. On admission Vitas looks stable. Labs including CBC, INR, BMP, liver enzymes are unremarkable. Troponins are elevated like to 0.07 and 0.07.Urine analysis is no suspicious of infection EKG showing sinus rhythm at 97 with sinus arrhythmia, T-wave inversion in the lateral legs including lead 1, 2, at 5.6 Left foot x-ray showing soft tissue swelling, increased compared to old exam. No focal bones In the emergency room patient was given Zosyn, IV vancomycin on normal saline at 75 mL/h, pain medication Consult placed for Dr. Montoya and ID team Review of Systems Review of systems CONSTITUTIONAL: No fever, no malaise, no fatigue. HEENT: No recent visual problems or hearing problems. Denied any sore throat. CARDIOVASCULAR: No orthopnea, PND, no palpitations, no syncope. PULMONARY: No shortness of breath, no cough, no hemoptysis. GASTROINTESTINAL: No diarrhea, no nausea, no vomiting, no abdominal pain. Normoactive bowel sounds. NEUROLOGICAL: No headaches, no weakness, no numbness. HEMATOLOGICAL: Denies any bleeding or petechiae. GENITOURINARY: Denies any burning micturition, frequency, or urgency. MUSCULOSKELETAL/RHEUMATOLOGICAL: Denies any joint pain, swelling, or any muscle pain. ENDOCRINE: Denies any polyuria or polydipsia. Past Medical History Past Medical History: COPD, Hyperlipidemia, Hypertension, Neurologic Disorder, Osteoarthritis (OA), Skin Disorder, Sleep Apnea/CPAP/BIPAP, Vascular Disorder Additional Past Medical History / Comment(s): "leaky mitral valve", wound left foot-multiple areas, seen in wound center, MS, occasional use of oxygen for sleep apnea, doesn't use CPAP. MS History of Any Multi-Drug Resistant Organisms: None Reported Past Surgical History: Appendectomy, Breast Surgery, Heart Catheterization With Stent, Tonsillectomy Additional Past Surgical History / Comment(s): joya benign breast biopsy, leg stents bilat. Past Anesthesia/Blood Transfusion Reactions: No Reported Reaction, Motion Sickness Date of Last Stent Placement:: 2009 Past Psychological History: Anxiety, Depression Smoking Status: Former smoker Past Alcohol Use History: None Reported Additional Past Alcohol Use History / Comment(s): smoker since age 17 1-1 1/2ppd, quit smoking 2 month ago Past Drug Use History: None Reported Additional Drug Use History / Comment(s): cbd lotion - Past Family History Mother Family Medical History: Diabetes Mellitus Medications and Allergies Home Medications Medication Instructions Recorded Confirmed Type Aspirin [Adult Low Dose Aspirin EC] 81 mg PO DAILY 05/09/20 08/17/20 History Cyanocobalamin (Vitamin B-12) 1,000 mcg PO DAILY 05/09/20 08/17/20 History [Vitamin B-12] Isosorbide Mononitrate ER [Imdur] 30 mg PO DAILY 05/09/20 08/17/20 History Ascorbic Acid [Vitamin C] 500 mg PO DAILY 08/02/20 08/17/20 History Atorvastatin [Lipitor] 80 mg PO HS 08/02/20 08/17/20 History Losartan [Cozaar] 25 mg PO DAILY 08/02/20 08/17/20 History Metoprolol Succinate [Toprol XL] 25 mg PO DAILY 08/02/20 08/17/20 History Ranolazine [Ranexa] 500 mg PO BID 08/02/20 08/17/20 History Furosemide [Lasix] 20 mg PO BID PRN 08/09/20 08/17/20 History Clopidogrel Bisulfate [Plavix] 75 mg PO DAILY #90 tab 08/16/20 08/17/20 Rx Cholecalciferol [Vitamin D3 (25 25 mcg PO DAILY 08/17/20 08/17/20 History Mcg = 1000 Iu)] Collagenase [Santyl] 1 applic TOPICAL DAILY 08/17/20 08/17/20 History traMADol HCl [Ultram] 50 mg PO BID PRN 08/17/20 08/17/20 History Allergies Allergy/AdvReac Type Severity Reaction Status Date / Time sumatriptan [From Imitrex] Allergy Chest Pain Verified 08/17/20 20:11 Physical Exam Vitals: Vital Signs Temp Pulse Pulse Resp BP BP Pulse Ox 08/17/20 21:15 98 F 90 18 136/60 99 08/17/20 20:30 98.0 F 101 H 18 126/63 97 08/17/20 18:04 98.2 F 50 L 18 130/89 97 Intake and Output 08/17/20 08/17/20 08/18/20 14:59 22:59 06:59 Other: Weight 65.317 kg GENERAL: The patient is alert and oriented x3, not in any acute distress. Well developed, well nourished. HEENT: Pupils are round and equally reacting to light. EOMI. No scleral icterus. No conjunctival pallor. Normocephalic, atraumatic. No pharyngeal erythema. No thyromegaly. CARDIOVASCULAR: S1 and S2 present. No murmurs, rubs, or gallops. PULMONARY: Chest is clear to auscultation, no wheezing or crackles. ABDOMEN: Soft, nontender, nondistended, normoactive bowel sounds. No palpable or ganomegaly. MUSCULOSKELETAL: No joint swelling or deformity. EXTREMITIES: No cyanosis, clubbing, or pedal edema. The whole left foot is erythematous with a black middle 3 toes with thick yellow nail. She has a cardiac and assault of the second toe. NEUROLOGICAL: Gross neurological examination did not reveal any focal deficits. SKIN: No rashes. no petechiae. Results CBC & Chem 7: 08/17/20 18:50 08/17/20 18:50 Labs: Abnormal Lab Results - Last 24 Hours (Table) 08/17/20 08/17/20 08/17/20 Range/Units 18:50 18:50 19:15 Hct 46.6 H (34.0-46.0) % BUN 25 H (7-17) mg/dL Glucose 134 H (74-99) mg/dL ALT 35 H (4-34) U/L Troponin I 0.070 H* (0.000-0.034) ng/mL Ur Leukocyte Esterase (Negative) Hyaline Casts (0-2) /lpf Urine Mucus (None) /hpf 08/17/20 08/17/20 Range/Units 19:29 23:34 Hct (34.0-46.0) % BUN (7-17) mg/dL Glucose (74-99) mg/dL ALT (4-34) U/L Troponin I 0.072 H* (0.000-0.034) ng/mL Ur Leukocyte Esterase Trace H (Negative) Hyaline Casts 4 H (0-2) /lpf Urine Mucus Rare H (None) /hpf Microbiology - Last 24 Hours (Table) 08/17/20 19:06 Wound Culture - Preliminary Toe - Left Second Thrombosis Risk Factor Assmnt - Choose All That Apply Any of the Below Risk Factors Present?: Yes Each Factor Represents 1 point: Abnormal pulmonary function (COPD) Other Risk Factors: Yes Each Risk Factor Represents 2 Points: Age 61-74 years Other congenital or acquired thrombophilia - If yes, enter type in comment: No Thrombosis Risk Factor Assessment Total Risk Factor Score: 3 Thrombosis Risk Factor Assessment Level: Moderate Risk Assessment and Plan Assessment: -Painful Left foot with worsening blisters and erythema and purulent discharge, suspicious for cellulitis secondary to ischemia -Left lower extremity ischemia and occluded severe aortoiliac disease and severe femoral popliteal disease, S/B atherectomy of the left common femoral artery, stenting of the right and left external iliac arteries, stenting of the left SFA and balloon angioplasty of the left popliteal. -Hypertension -Hyperlipidemia -Osteoarthritis -Sleep apnea not on CPAP -Multiple sclerosis -COPD, not in acute exacerbation Plan: This is a pleasant 74 years old female who presents with ischemic left lower extremity. Possible elements of infection. Continue with antibiotics vancomycin and change his Zosyn to Unasyn, consult infectious disease team. Continue gentle hydration. Consult vascular surgery and physical therapist center manager with Dr. Adame. Try to obtain culture results and followed up also continue with aspirin Labs and medication were reviewed.. Continue same treatment. Continue with symptomatic treatment. Resume home medication. Monitor lytes and vitals. DVT and GI prophylaxis. Further recommendationsas per clinical course of the patient DVT prophylaxis: Subcutaneous heparin GI Prophylaxis: Pepcid PT/OT: Pending Prognosis is guarded
[2020-08-18] MEDS: HEPARIN SODIUM,PORCINE 5,000 UNIT/ML 1 ML VIAL SQ SCH ×2 (14:57→23:39)
[2020-08-18] MEDS: METOPROLOL SUCCINATE (ER) 25 MG TAB.ER.24H PO SCH (17:08)
[2020-08-18] MEDS: AMPICILLIN-SULBACTAM 3 GM in SODIUM CHLORIDE 0.9% 100 ML IVPB SCH ×2 (17:09→23:39)
[2020-08-18] MEDS: RANOLAZINE 500 MG TAB.ER.12H PO SCH (20:57)
[2020-08-18] MEDS: FAMOTIDINE 20 MG/2 ML VIAL IV SCH (20:57)
[2020-08-18] MEDS: ATORVASTATIN 80 MG TAB PO SCH (20:57)
[2020-08-19] MEDS: HYDROmorphone 1 MG/ML 1 ML SYRINGE IVP PRN ×6 (00:38→21:25)
[2020-08-19] MEDS: VANCOMYCIN 1,250 MG in SODIUM CHLORIDE 0.9% 250 ML IVPB SCH ×2 (04:05→21:24)
[2020-08-19] MEDS: SODIUM CHLORIDE 0.9% 1,000 ML IV SCH ×2 (04:05→17:34)
[2020-08-19 06:45] LABS: Basophils # (A) 0.1 k/uL (0-0.2); Basophils % (A) 1 %; Eosinophils # (A) 0.2 k/uL (0-0.7); Eosinophils % (A) 4 %; HCT 37.1 % (34.0-46.0); HGB 12.4 gm/dL (11.4-16.0); Lymphocytes # (A) 1.9 k/uL (1.0-4.8); Lymphocytes % (A) 29 %; MCH 33.2 pg (25.0-35.0); MCHC 33.3 g/dL (31.0-37.0); MCV 99.7 fL (80.0-100.0); Macrocytosis Slight; Mean Platelet Volume 8.3; Monocytes # (A) 0.5 k/uL (0-1.0); Monocytes % (A) 7 %; Neutrophils # (A) 3.8 k/uL (1.3-7.7); Neutrophils % (A) 57 %; Platelet Count 188 k/uL (150-450); RBC 3.72 m/uL (3.80-5.40); RDW 14.4 % (11.5-15.5); WBC 6.6 k/uL (3.8-10.6)
[2020-08-19 06:56] LABS: African American GFR (CKD) >90 (>60 ml/min/1.73 sqM); Anion Gap 1 mmol/L; Blood Urea Nitrogen 18 mg/dL (7-17); Calcium 8.4 mg/dL (8.4-10.2); Carbon Dioxide 30 mmol/L (22-30); Chloride 108 mmol/L (98-107); Glucose 99 mg/dL (74-99); Non-African American GFR(CKD) 80 (>60 ml/min/1.73 sqM); Potassium 3.8 mmol/L (3.5-5.1); Sodium 139 mmol/L (137-145)
[2020-08-19] MEDS: AMPICILLIN-SULBACTAM 3 GM in SODIUM CHLORIDE 0.9% 100 ML IVPB SCH ×3 (07:50→17:35)
[2020-08-19] MEDS: HEPARIN SODIUM,PORCINE 5,000 UNIT/ML 1 ML VIAL SQ SCH ×2 (09:10→17:36)
[2020-08-19] MEDS: ASPIRIN 81 MG PO SCH (09:11)
[2020-08-19] MEDS: RANOLAZINE 500 MG TAB.ER.12H PO SCH ×2 (09:12→21:25)
[2020-08-19] MEDS: FAMOTIDINE 20 MG/2 ML VIAL IV SCH ×2 (09:12→21:25)
[2020-08-19] MEDS: CLOPIDOGREL 75 MG TAB PO SCH (09:12)
[2020-08-19] MEDS: ISOSORBIDE MONONITRATE ER 30 MG TAB.ER.24H PO SCH (09:12)
[2020-08-19] MEDS: METOPROLOL SUCCINATE (ER) 25 MG TAB.ER.24H PO SCH (09:12)
[2020-08-19] MEDS: LOSARTAN 25 MG TAB PO SCH (09:12)
[2020-08-19] MEDS: COLLAGENASE 250 UNIT/GM OINTMENT 30 GM TUBE TOPICAL SCH (11:09)
--- NOTE | 2020-08-19 11:14 | P.PN ---
Subjective Progress Note Date: 08/19/20 HISTORY OF PRESENT ILLNESS This is a 74-year-old female patient of Dr. Adame with past medical hi story significant for coronary artery disease with remote stenting of the LAD, valvular heart disease, critical limb ischemia of the left foot, hypertension, dyslipidemia, recently quit tobacco use. Patient has undergone angiogram which revealed severe aortoiliac disease and severe femoropopliteal disease and severe below the knee disease bilaterally. On August 15, patient underwent atherectomy of the left common femoral artery, stenting of the right and left external iliac arteries, successful stenting of the left SFA, balloon angioplasty of the left popliteal and angiogram. Patient was recommended for dual antiplatelet therapy, aggressive cholesterol control and risk factor modifications. Patient also underwent heart catheterization in April 2020 which revealed extremely calcified right and left coronary systems. Chronic total occlusion of the right coronary artery that fills by collaterals from the left. Critical disease involving the left circumflex coronary artery with mul tiple lesions. Critical disease involving the proximal mid and distal left anterior descending artery with tubular lesions as well. Patient also had a mitral regurgitation likely ischemic related to RCA occlusion. Patient presented to the emergency center on August 17 with complaints of wounds and increasing pain worse to the blistered areas. She also complains of increasing erythema and wound drainage. EKG was a sinus rhythm with no acute changes. X- ray of the foot shows no obvious osteomyelitis. CBC and BMP unremarkable. Lactic acid 1.5. Troponin 0.07, 0.72, 0.066. 08/19: Patient states that she is fine. She denies having any chest pain. Updated patient that Dr. Adame has been updated regarding her admission. He does not plan any further surgical intervention and recommends continuing current medical treatment. She has been afebrile, heart rate 88, blood pressure 122/68, pulse ox 95% on room air. Repeat CBC is unremarkable. BUN 18 and creatinine 0.75, potassium 3.8. PHYSICAL EXAMINATION Gen: This is a 74-year-old female. Patient is resting been appears to be comfortable and in no acute distress. HEENT: Head is atraumatic, normocephalic. Pupils equal, round. Sclerae is anicteric. NECK: Supple. No JVD. No lymphadenopathy. No thyromegaly. LUNGS: Diminished bilaterally. No intercostal retractions. HEART: Regular rate and rhythm. Systolic murmur. ABDOMEN: Soft. Bowel sounds are present. No masses. No tenderness. EXTREMITIES: Multiple bilateral lower extremity wounds/ulcers. Erythema and edema. Please see nursing neck mentation for details. NEUROLOGICAL: Patient is awake, alert and oriented x3. Cranial nerves 2 through 12 are grossly intact. ASSESSMENT Severe peripheral artery disease Severe triple-vessel coronary artery disease Valvular heart disease with mitral regurgitation Hypertension Dyslipidemia History of tobacco use and dependence PLAN Recommend continuing current IV antibiotics per infectious disease No plan for surgical intervention at this time by Dr. Adame Continue aspirin 81 mg daily, Lipitor 80 mg at bedtime, Plavix 75 mg daily, Lasix 20 mg twice daily as needed, Imdur 30 mg daily, Toprol-XL 25 mg daily, Ranexa 500 mg twice sidney Continue losartan 25 mg daily Further recommendations to follow based upon clinical course Thank you kindly for this consultation. Nurse practitioner note has been reviewed, I agree with documented findings and plan of care. Patient was seen and examined. Objective - Vital Signs Vital signs: Vital Signs Temp 99.0 F 08/19/20 00:00 Pulse 84 08/19/20 04:00 Resp 18 08/19/20 04:00 BP 172/77 08/19/20 04:00 Pulse Ox 94 L 08/19/20 04:00 Intake & Output 08/18/20 08/19/20 08/19/20 18:59 06:59 18:59 Intake Total 840 240 Output Total 100 425 Balance 740 -425 240 Weight 74.5 kg Intake: Oral 840 240 Output: Urine 100 425 Other: Voiding Method Indwelling Catheter Indwelling Catheter - Labs CBC & Chem 7: 08/19/20 06:09 08/19/20 06:09 Labs: Abnormal Lab Results - Last 24 Hours (Table) 08/17/20 08/19/20 08/19/20 Range/Units 23:34 06:09 06:09 RBC 3.72 L (3.80-5.40) m/uL Chloride 108 H (98-107) mmol/L BUN 18 H (7-17) mg/dL Troponin I 0.072 H* (0.000-0.034) ng/mL Microbiology - Last 24 Hours (Table) 08/17/20 18:50 Blood Culture Gram Stain - Preliminary Blood Blood Culture - Preliminary Coagulase Negative Staph 08/17/20 19:06 Gram Stain - Preliminary Toe - Left Second Wound Culture - Preliminary Gram Neg Bacilli 08/17/20 18:50 Blood Culture - Final Blood
--- NOTE | 2020-08-19 12:12 | P.PN ---
Subjective This is a pleasant 74 years old female with multiple medical problems including COPD, hyperlipidemia, hypertension, osteoarthritis, multiple sclerosis, sleep apnea with is not compliant with CPAP. She was recently diagnosed with critical limb ischemia of the left foot and she underwent angiogram which revealed severe aortoiliac disease and severe femoral popliteal disease and severe [id number] disease bilaterally. She underwent atherectomy of the left common femoral artery, successful stenting of the right and left external iliac arteries, successful stenting of the left SFA and balloon angioplasty of the left popliteal. She was discharged yesterday. Presents because of worsening blisters and erythema associated with pain and purulent discharge. Patient states that she's been having worsening left lower extremity ischemic symptoms since March however lately for the last couple days the pain become more severe and she cannot take it anymore especially she ran out of her pain medication so she decided to come to emergency room. On admission Vitas looks stable. Labs including CBC, INR, BMP, liver enzymes are unremarkable. Troponins are elevated like to 0.07 and 0.07.Urine analysis is no suspicious of infection EKG showing sinus rhythm at 97 with sinus arrhythmia, T-wave inversion in the lateral legs including lead 1, 2, at 5.6 Left foot x-ray showing soft tissue swelling, increased compared to old exam. No focal bones In the emergency room patient was given Zosyn, IV vancomycin on normal saline at 75 mL/h, pain medication Consult placed for Dr. Montoya and ID team 08/19/2020 Patient with no new complaints. She vitals and labs are stable. presents with left foot cellulitis secondary to ischemic left lower extremity. [employer] Veget[employer] team recommended no surgical intervention and to continue with antibiotics for now. Vascular surgery team been consulted pending the recommendation Patient currently is on Unasyn and IV vancomycin. Normal saline lower 75to 50 mL per hour Review of systems CONSTITUTIONAL: No fever, no malaise, no fatigue. HEENT: No recent visual problems or hearing problems. Denied any sore throat. CARDIOVASCULAR: No orthopnea, PND, no palpitations, no syncope. PULMONARY: No shortness of breath, no cough, no hemoptysis. GASTROINTESTINAL: No diarrhea, no nausea, no vomiting, no abdominal pain. Normoactive bowel sounds. NEUROLOGICAL: No headaches, no weakness, no numbness. Active Medications Generic Name Dose Route Start Last Admin Trade Name Freq PRN Reason Stop Dose Admin Aspirin 81 mg 08/19/20 09:00 08/19/20 09:11 Aspirin 81 Mg PO 81 mg DAILY MARY ANNE Administration Atorvastatin Calcium 80 mg 08/18/20 21:00 08/18/20 20:57 Atorvastatin 80 Mg Tab PO 80 mg HS MARY ANNE Administration Clopidogrel Bisulfate 75 mg 08/19/20 09:00 08/19/20 09:12 Clopidogrel 75 Mg Tab PO 75 mg DAILY MARY ANNE Administration Collagenase 1 applic 08/19/20 09:00 08/19/20 11:09 Collagenase 250 Unit/Gm Ointment 30 Gm Tube TOPICAL Not Given DAILY [facility] Famotidine 20 mg 08/18/20 21:00 08/19/20 09:12 Famotidine 20 Mg/2 Ml Vial IV 20 mg Q12HR MARY ANNE Administration Furosemide 20 mg 08/18/20 13:12 Furosemide 20 Mg Tab PO BID PRN Edema Heparin Sodium (Porcine) 5,000 unit 08/18/20 14:30 08/19/20 09:10 Heparin Sodium,Porcine 5,000 Unit/Ml 1 Ml Vial SQ 5,000 unit Q8HR MARY ANNE Administration Hydromorphone HCl 1 mg 08/17/20 23:30 08/19/20 09:03 Hydromorphone 1 Mg/Ml 1 Ml Syringe IVP 1 mg Q4HR PRN Administration Pain Vancomycin HCl 1,250 mg/ 250 mls @ 125 mls/hr 08/18/20 12:00 08/19/20 04:05 Sodium Chloride IVPB 125 mls/hr Q16H MARY ANNE Administration Sodium Chloride 1,000 mls @ 75 mls/hr 08/18/20 13:15 08/19/20 04:05 Saline 0.9% IV 75 mls/hr .[id number] MARY ANNE Administration Ampicillin Sodium/Sulbactam 100 mls @ 200 mls/hr 08/18/20 18:00 08/19/20 07:50 Sodium 3 gm/ Sodium Chloride IVPB 200 mls/hr Q6HR MARY ANNE Administration Isosorbide Mononitrate 30 mg 08/19/20 09:00 08/19/20 09:12 Isosorbide Mononitrate Er 30 Mg Tab.Er.24h PO 30 mg DAILY MARY ANNE Administration Losartan Potassium 25 mg 08/18/20 09:00 08/19/20 09:12 Losartan 25 Mg Tab PO 25 mg DAILY MARY ANNE Administration Metoprolol Succinate 25 mg 08/18/20 13:15 08/19/20 09:12 Metoprolol Succinate (Er) 25 Mg Tab.Er.24h PO 25 mg DAILY MARY ANNE Administration Miscellaneous Information 0 each 08/20/20 11:00 Vancomycin Trough Due 1 Each Misc MISCELLANE 08/20/20 11:01 DIRECTED ONE Ranolazine 500 mg 08/18/20 21:00 08/19/20 09:12 Ranolazine 500 Mg Tab.Er.12h PO 500 mg BID MARY ANNE Administration Objective - Vital Signs Vital signs: Vital Signs Temp 97.9 F 08/19/20 11:55 Pulse 87 08/19/20 11:55 Resp 16 08/19/20 11:55 BP 135/62 08/19/20 11:55 Pulse Ox 96 08/19/20 11:55 Intake & Output 08/18/20 08/19/20 08/19/20 18:59 06:59 18:59 Intake Total 840 240 Output Total 100 425 Balance 740 -425 240 Weight 74.5 kg Intake: Oral 840 240 Output: Urine 100 425 Other: Voiding Method Indwelling Catheter Indwelling Catheter Indwelling Catheter - Exam GENERAL: The patient is alert and oriented x3, not in any acute distress. Well developed, well nourished. HEENT: Pupils are round and equally reacting to light. EOMI. No scleral icterus. No conjunctival pallor. Normocephalic, atraumatic. No pharyngeal erythema. No thyromegaly. CARDIOVASCULAR: S1 and S2 present. No murmurs, rubs, or gallops. PULMONARY: Chest is clear to auscultation, no wheezing or crackles. ABDOMEN: Soft, nontender, nondistended, normoactive bowel sounds. No palpable organomegaly. MUSCULOSKELETAL: No joint swelling or deformity. -EXTREMITIES: No cyanosis, clubbing, or pedal edema. The whole left foot is erythematous with a black middle 3 toes with thick yellow nail. She has a cardiac and assault of the second toe. NEUROLOGICAL: Gross neurological examination did not reveal any focal deficits. SKIN: No rashes. no petechiae. - Labs CBC & Chem 7: 08/19/20 06:09 08/19/20 06:09 Labs: Abnormal Lab Results - Last 24 Hours (Table) 0108/19/20 08/19/20 Range/Units 23:34 06:09 06:09 RBC 3.72 L (3.80-5.40) m/uL Chloride 108 H (98-107) mmol/L BUN 18 H (7-17) mg/dL Troponin I 0.072 H* (0.000-0.034) ng/mL Microbiology - Last 24 Hours (Table) 08/17/20 18:50 Blood Culture Gram Stain - Preliminary Blood Blood Culture - Preliminary Coagulase Negative Staph 08/17/20 19:06 Gram Stain - Preliminary Toe - Left Second Wound Culture - Preliminary Gram Neg Bacilli 08/17/20 18:50 Blood Culture - Final Blood Assessment and Plan Assessment: -Painful Left foot with worsening blisters and erythema and purulent discharge, suspicious for cellulitis secondary to ischemia -Left lower extremity ischemia and occluded severe aortoiliac disease and severe femoral popliteal disease, S/B atherectomy of the left common femoral artery, stenting of the right and left external iliac arteries, stenting of the left SFA and balloon angioplasty of the left popliteal. -Hypertension -Hyperlipidemia -Osteoarthritis -Sleep apnea not on CPAP -Multiple sclerosis -COPD, not in acute exacerbation Plan: This is a pleasant 74 years old female who presents with ischemic left lower extremity. Possible elements of infection. Continue with antibiotics vancomycin and change his Zosyn to Unasyn, consult infectious disease team. Continue gentle hydration. 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 Adame. Try to obtain culture results and followed up also continue with aspirin Labs and medication were reviewed.. Continue same treatment. Continue with symptomatic treatment. Resume home medication. Monitor lytes and vitals. DVT and GI prophylaxis. Further recommendationsas per clinical course of the patient DVT prophylaxis: Subcutaneous heparin GI Prophylaxis: Pepcid PT/OT: Pending Prognosis is guarded
--- NOTE | 2020-08-19 12:34 | P.GSCN ---
History of Present Illness Consult date: 08/19/20 History of present illness: Sharmila is a 74-year-old female in hospital for worsened left lower extremity cellulitis and pain from her nonhealing wounds. She recently, on August 15, underwent bilateral iliac stenting, left superficial femoral artery atherectomy, angioplasty and stenting. She states that her wound began was initiated on a car door and has been going on since then. She just recently quit smoking. She denies any fevers, chills, nausea or vomiting. She is not allowing anyone to touch her toes due to the significant pain Past Medical History Past Medical History: COPD, Hyperlipidemia, Hypertension, Neurologic Disorder, Osteoarthritis (OA), Skin Disorder, Sleep Apnea/CPAP/BIPAP, Vascular Disorder Additional Past Medical History / Comment(s): "leaky mitral valve", wound left foot-multiple areas, seen in wound center, MS, occasional use of oxygen for sleep apnea, doesn't use CPAP. MS History of Any Multi-Drug Resistant Organisms: None Reported Past Surgical History: Appendectomy, Breast Surgery, Heart Catheterization With Stent, Tonsillectomy Additional Past Surgical History / Comment(s): joya benign breast biopsy, leg stents bilat. Past Anesthesia/Blood Transfusion Reactions: No Reported Reaction, Motion Sickness Date of Last Stent Placement:: 2009 Past Psychological History: Anxiety, Depression Smoking Status: Former smoker Past Alcohol Use History: None Reported Additional Past Alcohol Use History / Comment(s): smoker since age 17 1-1 1/2p pd, quit smoking 2 month ago Past Drug Use History: None Reported Additional Drug Use History / Comment(s): cbd lotion - Past Family History Mother Family Medical History: Diabetes Mellitus Medications and Allergies Home Medications Medication Instructions Recorded Confirmed Type Aspirin [Adult Low Dose Aspirin EC] 81 mg PO DAILY 05/09/20 08/17/20 History Cyanocobalamin (Vitamin B-12) 1,000 mcg PO DAILY 05/09/20 08/17/20 History [Vitamin B-12] Isosorbide Mononitrate ER [Imdur] 30 mg PO DAILY 05/09/20 08/17/20 History Ascorbic Acid [Vitamin C] 500 mg PO DAILY 08/02/20 08/17/20 History Atorvastatin [Lipitor] 80 mg PO HS 08/02/20 08/17/20 History Losartan [Cozaar] 25 mg PO DAILY 08/02/20 08/17/20 History Metoprolol Succinate [Toprol XL] 25 mg PO DAILY 08/02/20 08/17/20 History Ranolazine [Ranexa] 500 mg PO BID 08/02/20 08/17/20 History Furosemide [Lasix] 20 mg PO BID PRN 08/09/20 08/17/20 History Clopidogrel Bisulfate [Plavix] 75 mg PO DAILY #90 tab 08/16/20 08/17/20 Rx Cholecalciferol [Vitamin D3 (25 25 mcg PO DAILY 08/17/20 08/17/20 History Mcg = 1000 Iu)] Collagenase [Santyl] 1 applic TOPICAL DAILY 08/17/20 08/17/20 History traMADol HCl [Ultram] 50 mg PO BID PRN 08/17/20 08/17/20 History Allergies Allergy/AdvReac Type Severity Reaction Status Date / Time sumatriptan [From Imitrex] Allergy Chest Pain Verified 08/17/20 20:11 Surgical - Exam Vital Signs Temp Pulse Resp BP Pulse Ox 98.2 F 50 L 18 130/89 97 08/17/20 18:04 08/17/20 18:04 08/17/20 18:04 08/17/20 18:04 08/17/20 18:04 Gen. a pleasant cooperative female in no acute distress. HEENT is normocephalic atraumatic extraocular motion intact. Heart is regular at this time. Lungs are clear bilaterally. Abdomen is soft, nontender nondistended. Extremity show no clubbing, cyanosis or edema. Has palpable radial and femoral pulses bilaterally. She is a palpable posterior tibial pulse on the left lower extremity she has a bullae that has been unroofed at her left medial ankle. She is a small area of eschar of her heel. Her second through fourth toes have significant drainage and areas of eschar. She is unwilling to allow me to palpate these. She states that they are "fused together ". Results - Labs 08/19/20 06:09 08/19/20 06:09 Abnormal Lab Results - Last 24 Hours (Table) 08/17/20 08/19/20 08/19/20 Range/Units 23:34 06:09 06:09 RBC 3.72 L (3.80-5.40) m/uL Chloride 108 H (98-107) mmol/L BUN 18 H (7-17) mg/dL Troponin I 0.072 H* (0.000-0.034) ng/mL Microbiology - Last 24 Hours (Table) 08/17/20 18:50 Blood Culture Gram Stain - Preliminary Blood Blood Culture - Preliminary Coagulase Negative Staph 08/17/20 19:06 Gram Stain - Preliminary Toe - Left Second Wound Culture - Preliminary Gram Neg Bacilli 08/17/20 18:50 Blood Culture - Final Blood Diabetes panel 08/19/20 Range/Units 06:09 Sodium 139 (137-145) mmol/L Potassium 3.8 (3.5-5.1) mmol/L Chloride 108 H (98-107) mmol/L Carbon Dioxide 30 (22-30) mmol/L BUN 18 H (7-17) mg/dL Creatinine 0.75 (0.52-1.04) mg/dL Glucose 99 (74-99) mg/dL Calcium 8.4 (8.4-10.2) mg/dL Calcium panel 08/19/20 Range/Units 06:09 Calcium 8.4 (8.4-10.2) mg/dL Pituitary panel 08/19/20 Range/Units 06:09 Sodium 139 (137-145) mmol/L Potassium 3.8 (3.5-5.1) mmol/L Chloride 108 H (98-107) mmol/L Carbon Dioxide 30 (22-30) mmol/L BUN 18 H (7-17) mg/dL Creatinine 0.75 (0.52-1.04) mg/dL Glucose 99 (74-99) mg/dL Calcium 8.4 (8.4-10.2) mg/dL Adrenal panel 08/19/20 Range/Units 06:09 Sodium 139 (137-145) mmol/L Potassium 3.8 (3.5-5.1) mmol/L Chloride 108 H (98-107) mmol/L Carbon Dioxide 30 (22-30) mmol/L BUN 18 H (7-17) mg/dL Creatinine 0.75 (0.52-1.04) mg/dL Glucose 99 (74-99) mg/dL Calcium 8.4 (8.4-10.2) mg/dL Assessment and Plan Assessment: #1 left lower extremity nonhealing wound, infection and cellulitis #2 recent revascularization with bilateral iliac stenting, left superficial fe moral artery atherectomy and stenting #3 tobacco abuse recently quit Plan: At this time continue IV antibiotics. Had a long discussion with the patient regarding the need for proper wound care and debridement. She states she will not let anyone do this while she is awake due to the amount of pain. Given her recent revascularization, would be hesitant to be aggressive any amputations. Although we did discuss we'll plan to go likely Thursday for a debridement in the operating room as well as possibly undergoing a transmetatarsal amputation at that time if the wounds themselves appear to be too significant and depth and again we discussed the importance of local wound care. She said understands and is willing to proceed as such
--- NOTE | 2020-08-19 19:15 | PN ---
PROGRESS NOTE DATE OF SERVICE: 08/19/2020 REASON FOR FOLLOWUP: Left foot ulcer and cellulitis. INTERVAL HISTORY: Patient is currently afebrile. The patient is feeling slightly better today. Overall pain and discomfort to the left foot is currently controlled. Complaining of pain mostly at the time of dressing changes. No chest pain, shortness of breath or cough. No abdominal pain or diarrhea. PHYSICAL EXAMINATION: Blood pressure 120/58 with a pulse of 73. Temperature is 97.8. She is 96% on room air. General description: The patient is an elderly female lying in bed in no distress. Respiratory system: Unlabored breathing. Clear to auscultation anteriorly. Heart S1, S2. Regular rate and rhythm. Abdomen soft, no tenderness. Left foot is currently dressed up. No obvious drainage on the dressing. LABS: Hemoglobin is 12.4, white count 6.6, creatinine 0.75. Culture showing Gram-negative bacilli. Blood cultures with coagulase negative Staph. DIAGNOSTIC IMPRESSION AND PLAN: Patient with left foot ulcers with secondary cellulitis. She did have positive blood cultures yesterday hence vancomycin was added. Currently covered with Unasyn and Vanco to continue while waiting for the culture to finalize and monitor clinical course closely. MMODL / IJN: [id number] /
[2020-08-19] MEDS: ATORVASTATIN 80 MG TAB PO SCH (21:25)
--- NOTE | 2020-08-19 22:15 | P.CONS ---
History of Present Illness - Reason for Consult Consult date: 08/18/20 left foot wound and cellulitis Requesting physician: Quintin Elizondo - Chief Complaint left foot wound and pain x weeks - History of Present Illness Patient is a 74-year-old female with a past medical history significant for chronic nonhealing wound to her left foot area apparently started after the patient hit front of the door of the car since then the patient did have a wound on her left foot and apparently has been following at the [facility] wound care center patient was noticed to have worsening erythema and drainage from her left foot toes as well as her left foot area evaluated by the ER physician on arrival to the ER patient was afebrile patient did have a normal white count kidney function was normal troponin is elevated patient did have a local wound culture as well as blood cultures obtained patient did have x-rays of the foot soft tissue swelling increased compared to old exam no bone destruction patient has been admitted to the hospital infectious disease was consulted for further recommendation about antibiotic therapy patient describing pain to her left foot to be throbbing almost 10-10 and worse at the time of dressing changes this reason she diffuse her dressing to be changed however she showed me images on her phone. Review of Systems Positive point has been mentioned in HPI rest of the systems are negative Past Medical History Past Medical History: COPD, Hyperlipidemia, Hypertension, Neurologic Disorder, Osteoarthritis (OA), Skin Disorder, Sleep Apnea/CPAP/BIPAP, Vascular Disorder Additional Past Medical History / Comment(s): "leaky mitral valve", wound left foot-multiple areas, seen in wound center, MS, occasional use of oxygen for sleep apnea, doesn't use CPAP. MS History of Any Multi-Drug Resistant Organisms: None Reported Past Surgical History: Appendectomy, Breast Surgery, Heart Catheterization With Stent, Tonsillectomy Additional Past Surgical History / Comment(s): joya benign breast biopsy, leg stents bilat. Past Anesthesia/Blood Transfusion Reactions: No Reported Reaction, Motion Sickness Date of Last Stent Placement:: 2009 Past Psychological History: Anxiety, Depression Smoking Status: Former smoker Past Alcohol Use History: None Reported Additional Past Alcohol Use History / Comment(s): smoker since age 17 1-1 1/2ppd, quit smoking 2 month ago Past Drug Use History: None Reported Additional Drug Use History / Comment(s): cbd lotion - Past Family History Mother Family Medical History: Diabetes Mellitus Medications and Allergies Home Medications Medication Instructions Recorded Confirmed Type Aspirin [Adult Low Dose Aspirin EC] 81 mg PO DAILY 05/09/20 08/17/20 History Cyanocobalamin (Vitamin B-12) 1,000 mcg PO DAILY 05/09/20 08/17/20 History [Vitamin B-12] Isosorbide Mononitrate ER [Imdur] 30 mg PO DAILY 05/09/20 08/17/20 History Ascorbic Acid [Vitamin C] 500 mg PO DAILY 08/02/20 08/17/20 History Atorvastatin [Lipitor] 80 mg PO HS 08/02/20 08/17/20 History Losartan [Cozaar] 25 mg PO DAILY 08/02/20 08/17/20 History Metoprolol Succinate [Toprol XL] 25 mg PO DAILY 08/02/20 08/17/20 History Ranolazine [Ranexa] 500 mg PO BID 08/02/20 08/17/20 History Furosemide [Lasix] 20 mg PO BID PRN 08/09/20 08/17/20 History Clopidogrel Bisulfate [Plavix] 75 mg PO DAILY #90 tab 08/16/20 08/17/20 Rx Cholecalciferol [Vitamin D3 (25 25 mcg PO DAILY 08/17/20 08/17/20 History Mcg = 1000 Iu)] Collagenase [Santyl] 1 applic TOPICAL DAILY 08/17/20 08/17/20 History traMADol HCl [Ultram] 50 mg PO BID PRN 08/17/20 08/17/20 History Allergies Allergy/AdvReac Type Severity Reaction Status Date / Time sumatriptan [From Imitrex] Allergy Chest Pain Verified 08/17/20 20:11 Physical Exam Vitals: Vital Signs Temp Pulse Pulse Resp BP BP Pulse Ox 08/18/20 15:45 98.6 F 92 16 118/57 93 L 08/18/20 12:05 98.3 F 51 L 18 128/59 95 08/18/20 08:45 98.1 F 115 H 18 172/72 97 08/18/20 04:00 91 18 147/66 96 08/18/20 02:00 87 18 08/18/20 00:00 98.0 F 87 18 132/65 98 08/17/20 21:15 98 F 90 18 136/60 99 08/17/20 20:30 98.0 F 101 H 18 126/63 97 Intake and Output 08/18/20 08/18/20 08/18/20 06:59 14:59 22:59 Intake Total 600 240 Output Total 100 Balance 500 240 Intake: Oral 600 240 Output: Urine 100 Other: Voiding Method Indwelling Catheter Indwelling Catheter # Voids 1 Weight 71.5 kg GENERAL DESCRIPTION: Elderly female lying in bed, no distress. No tachypnea or accessory muscle of respiration use. HEENT: Shows Pallor , no scleral icterus. Oral mucous membrane is dry. NECK: Trachea central, no thyromegaly. LUNGS: Unlabored breathing. Clear to auscultation anteriorly. No wheeze or crackle. HEART: S1, S2, regular rate and rhythm. ABDOMEN: Soft, no tenderness , guarding or rigidity EXTREMITIES: No edema of feet. Left foot multiple superficial wounds on the toes and the dorsal aspect with some yellow slough and surrounding redness currently no drainage on the dressing SKIN: No rash, no masses palpable. NEUROLOGICAL: The patient is awake, alert, oriented x3, mood and affect normal. Results CBC & Chem 7: 08/19/20 06:09 08/19/20 06:09 Labs: Abnormal Lab Results - Last 24 Hours (Table) 08/17/20 08/17/20 08/17/20 Range/Units 19:15 19:29 23:34 Troponin I 0.070 H* 0.072 H* (0.000-0.034) ng/mL Ur Leukocyte Esterase Trace H (Negative) Hyaline Casts 4 H (0-2) /lpf Urine Mucus Rare H (None) /hpf 08/18/20 Range/Units 02:07 Troponin I 0.066 H* (0.000-0.034) ng/mL Ur Leukocyte Esterase (Negative) Hyaline Casts (0-2) /lpf Urine Mucus (None) /hpf Microbiology - Last 24 Hours (Table) 08/17/20 18:50 Blood Culture Gram Stain - Preliminary Blood 08/17/20 19:06 Gram Stain - Preliminary Toe - Left Second Wound Culture - Preliminary Gram Neg Bacilli 08/17/20 18:50 Blood Culture - Final Blood Assessment and Plan Assessment: 1-patient presented to the hospital with left foot wound with secondary cellulitis complaining of significant pain with multiple draining wound cellulitis with no evidence of any bony changes on the x-ray will need to cover for the gram-positive skin darell 2-Positive blood culture will be more likely due to her left foot infection (1) Gram-positive bacteremia Current Visit: Yes Status: Acute Code(s): R78.81 - BACTEREMIA SNOMED Code(s): 725365725141 (2) Infected wound Current Visit: Yes Status: Acute Code(s): T14.8XXA - OTHER INJURY OF UNSPECIFIED BODY REGION, INITIAL ENCOUNTER; L08.9 - LOCAL INFECTION OF THE SKIN AND SUBCUTANEOUS TISSUE, UNSP SNOMED Code(s): 89677611 Plan: 1- blood cultures will be repeated document clearance of bacteremia 2vancomycin pharmacy to dose her with a target trough of 15 while watching her kidney function and Vanco trough closely. 3 continue with Unasyn 3 g every 6 hours- 4 local wound care per surgery- We will follow on clinical condition and cultures to further adjust medication if needed Thank you for this consultation we will follow the patient along with you Time with Patient: Greater than 30
[2020-08-20] MEDS: CEFEPIME 2 GM in SODIUM CHLORIDE 0.9% 100 ML IVPB SCH ×3 (00:05→20:40)
[2020-08-20] MEDS: HEPARIN SODIUM,PORCINE 5,000 UNIT/ML 1 ML VIAL SQ SCH ×4 (00:12→23:16)
[2020-08-20] MEDS ORDERED: IPRATROPIUM-ALBUTEROL 3 ML NEB ONE (04:12)
[2020-08-20] MEDS: HYDROmorphone 1 MG/ML 1 ML SYRINGE IVP PRN ×5 (04:41→20:38)
[2020-08-20] MEDS: IPRATROPIUM-ALBUTEROL 3 ML NEB INHALATION PRN ×3 (08:27→21:25)
[2020-08-20] MEDS: METOPROLOL SUCCINATE (ER) 25 MG TAB.ER.24H PO SCH (09:20)
[2020-08-20] MEDS: ASPIRIN 81 MG PO SCH (09:20)
[2020-08-20] MEDS: LOSARTAN 25 MG TAB PO SCH (09:20)
[2020-08-20] MEDS: ISOSORBIDE MONONITRATE ER 30 MG TAB.ER.24H PO SCH (09:20)
[2020-08-20] MEDS: RANOLAZINE 500 MG TAB.ER.12H PO SCH ×2 (09:20→20:40)
[2020-08-20] MEDS: FAMOTIDINE 20 MG/2 ML VIAL IV SCH ×2 (09:20→20:40)
[2020-08-20] MEDS: CLOPIDOGREL 75 MG TAB PO SCH (09:20)
[2020-08-20] MEDS: COLLAGENASE 250 UNIT/GM OINTMENT 30 GM TUBE TOPICAL SCH (10:11)
[2020-08-20] MEDS ORDERED: VANCOMYCIN TROUGH DUE 1 EACH MISC MISCELLANE ONE (11:00)
--- NOTE | 2020-08-20 11:57 | P.PN ---
Subjective 74 years old female with multiple medical problems including COPD, hyperlipidemia, hypertension, osteoarthritis, multiple sclerosis, sleep apnea with is not compliant with CPAP. She was recently diagnosed with critical limb ischemia of the left foot and she underwent angiogram which revealed severe aortoiliac disease and severe femoral popliteal disease and severe [id number] disease bilaterally. She underwent atherectomy of the left commo n femoral artery, successful stenting of the right and left external iliac arteries, successful stenting of the left SFA and balloon angioplasty of the left popliteal. She was discharged yesterday. Presents because of worsening blisters and erythema associated with pain and purulent discharge. Patient states that she's been having worsening left lower extremity ischemic symptoms since March however lately for the last couple days the pain become more severe and she cannot take it anymore especially she ran out of her pain medication so she decided to come to emergency room. On admission Vitas looks stable. Labs including CBC, INR, BMP, liver enzymes are unremarkable. Troponins are elevated like to 0.07 and 0.07.Urine analysis is no suspicious of infection EKG showing sinus rhythm at 97 with sinus arrhythmia, T-wave inversion in the lateral legs including lead 1, 2, at 5.6 Left foot x-ray showing soft tissue swelling, increased compared to old exam. No focal bones In the emergency room patient was given Zosyn, IV vancomycin on normal saline at 75 mL/h, pain medication Consult placed for Dr. Montoya and ID team 08/19/2020 Patient with no new complaints. She vitals and labs are stable. presents with left foot cellulitis secondary to ischemic left lower extremity. Medical Education Coordinator team recommended no surgical intervention and to continue with antibiotics for now. Vascular surgery team been consulted pending the recommendation Patient currently is on Unasyn and IV vancomycin. Normal saline lower 75to 50 mL per hour 08/20/2020 Patient has a Enterobacter cloaca a in the wounds. Patient is presently on cefepime for that. Patient blood cultures are positive because of contamination and showing coagulase-negative staph. Patient is off oxygen at this time patient is getting IV fluids as well as Lasix IV fluids and this can you patient has significant swelling in the left leg. Constitutional: Denied any fatigue denied any fever. Cardio vascular: denied any chest pain, palpitations Gastrointestinal denied any nausea vomiting Pulmonary: Denied any shortness of breath cough Neurologic denied any new focal deficits All inpatient medications were reviewed and appropriate changes in these medications as dictated in the interval history and assessment and plan. Objective - Vital Signs Vital signs: Vital Signs Temp 96.6 F L 08/20/20 08:00 Pulse 90 08/20/20 11:41 Resp 16 08/20/20 11:41 BP 136/64 08/20/20 08:00 Pulse Ox 100 08/20/20 08:00 Intake & Output 08/19/20 08/20/20 08/20/20 18:59 06:59 18:59 Intake Total 1080 550 240 Output Total 100 175 Balance 980 375 240 Weight 71.4 kg Intake: Intake, IV Titration 550 Amount Cefepime 2 gm In Sodium 100 Chloride 0.9% 100 ml @ 25 mls/hr IVPB Q12HR [facility] Rx #:[id number] Sodium Chloride 0.9% 1, 200 000 ml @ 50 mls/hr IV . Q20H [facility] Rx#:[id number] Vancomycin 1,250 mg In 250 Sodium Chloride 0.9% 250 ml @ 125 mls/hr IVPB Q16H [facility] Rx#:[id number] Oral 1080 240 Output: Urine 100 175 Other: Voiding Method Indwelling Catheter Indwelling Catheter Indwelling Catheter # Bowel Movements 1 - Exam PHYSICAL EXAMINATION: GENERAL: The patient is alert and oriented x3, not in any acute distress. Well developed, well nourished. HEENT: Pupils are round and equally reacting to light. EOMI. No scleral icterus. No conjunctival pallor. Normocephalic, atraumatic. No pharyngeal erythema. No thyromegaly. CARDIOVASCULAR: S1 and S2 present. No murmurs, rubs, or gallops. PULMONARY: Chest is clear to auscultation, no wheezing or crackles. ABDOMEN: Soft, nontender, nondistended, normoactive bowel sounds. No palpable organomegaly. MUSCULOSKELETAL: No joint swelling or deformity. EXTREMITIES: No cyanosis, clubbing, or leg is swollen and the wrapped with bandage NEUROLOGICAL: Gross neurological examination did not reveal any focal deficits. SKIN: No rashes. - Labs CBC & Chem 7: 08/19/20 06:09 08/19/20 06:09 Labs: Microbiology - Last 24 Hours (Table) 08/17/20 18:50 Blood Culture Gram Stain - Final Blood Blood Culture - Final Staphylococcus epidermidis 08/17/20 19:06 Gram Stain - Final Toe - Left Second Wound Culture - Final Enterobacter cloacae Assessment and Plan Plan: --Infected wounds and cellulitis of the left leg: Patient is being treated with cefepime patient has Enterobacter cloacae. Patient will undergo debridement. Back wasn't was discontinued and patient is on cefepime at this time -Left lower extremity ischemia and occluded severe aortoiliac disease and severe femoral popliteal disease, S/B atherectomy of the left common femoral artery, stenting of the right and left external iliac arteries, stenting of the left SFA and balloon angioplasty of the left popliteal. -Hypertension -Hyperlipidemia -Osteoarthritis -Sleep apnea not on CPAP -Multiple sclerosis -COPD, not in acute exacerbation -DVT prophylaxis with Lovenox
--- NOTE | 2020-08-20 12:52 | P.PN ---
Subjective Progress Note Date: 08/20/20 Principal diagnosis: Nonhealing, infected wounds Patient seen and examined at the bedside. No acute changes through the night. Patient is scheduled for left foot wound debridement with possible TMA on Thursday with Dr. Tadeo. Objective - Vital Signs Vital signs: Vital Signs Temp 96.6 F L 08/20/20 08:00 Pulse 94 08/20/20 08:37 Resp 16 08/20/20 08:37 BP 136/64 08/20/20 08:00 Pulse Ox 100 08/20/20 08:00 Intake & Output 08/19/20 08/20/20 08/20/20 18:59 06:59 18:59 Intake Total 1080 550 240 Output Total 100 175 Balance 980 375 240 Weight 71.4 kg Intake: Intake, IV Titration 550 Amount Cefepime 2 gm In Sodium 100 Chloride 0.9% 100 ml @ 25 mls/hr IVPB Q12HR [facility] Rx #:[id number] Sodium Chloride 0.9% 1, 200 000 ml @ 50 mls/hr IV . Q20H [facility] Rx#:[id number] Vancomycin 1,250 mg In 250 Sodium Chloride 0.9% 250 ml @ 125 mls/hr IVPB Q16H [facility] Rx#:[id number] Oral 1080 240 Output: Urine 100 175 Other: Voiding Method Indwelling Catheter Indwelling Catheter Indwelling Catheter # Bowel Movements 1 - Exam General appearance: The patient is alert, oriented, appears in no acute distress. HET: Head is normocephalic and atraumatic. Neck: Supple without lymphadenopathy. Trachea midline. Extremities: Left lower extremity edema, good capillary refill. Patient with dressing clean dry and intact to left lower extremity. Full range of motion. Neurological: No focal deficits. Strength and sensation are grossly intact. - Labs CBC & Chem 7: 08/19/20 06:09 08/19/20 06:09 Labs: Microbiology - Last 24 Hours (Table) 08/17/20 18:50 Blood Culture Gram Stain - Final Blood Blood Culture - Final Staphylococcus epidermidis 08/17/20 19:06 Gram Stain - Final Toe - Left Second Wound Culture - Final Enterobacter cloacae Assessment and Plan Assessment: #1 left lower extremity nonhealing wound, infection and cellulitis #2 recent revascularization with bilateral iliac stenting, left superficial femoral artery atherectomy and stenting #3 tobacco abuse recently quit Plan: 1. Continue IV antibiotics 2. Continue local wound care 3. Patient is scheduled for left lower extremity wound debridement with possible TMA Thursday with Dr. Tadeo The above dictated assessment and findings were discussed with Dr. Nix. The impression and plan of care have been directed as dictated.
--- NOTE | 2020-08-20 14:45 | P.PN ---
Subjective This is a pleasant 74-year-old female past medical history significant for coronary artery disease status post PCI to the LAD, critical limb ischemia of the left foot, hypertension, dyslipidemia and mitral regurgitation. She follows in the office with Dr. Adame. She is seen and examined sitting up in the chair in no acute distress. She denies symptoms of chest pain, dizziness or palpitations. She states this morning she woke up feeling short of breath and wheezy. She received an updraft treatment and her symptoms improved. Blood pressure 136/64 heart rate 94 afebrile maintaining oxygen saturation on nasal cannula. Laboratory data reviewed, WBC 6.6, hemoglobin 12.4, platelets 188, sodium 139, potassium 3.8, creatinine 0.75 and troponin trend 0.07, 0.072 and 0.0 66. Currently maintained on aspirin 81 mg daily, atorvastatin 80 mg daily, Plavix 75 mg daily, Imdur 30 mg daily, losartan 25 mg daily, Toprol 25 mg daily and Ranexa 500 mg twice a day. GENERAL: Well-appearing, well-nourished and in no acute distress. NECK: Supple without JVD or thyromegaly. LUNGS: Breath sounds clear to auscultation bilaterally. Respiration equal and unlabored. No wheezes, rales or rhonchi. HEART: Regular rate and rhythm with systolic ejection murmur at the left sternal border, no rubs or gallops. S1 and S2 heard. EXTREMITIES: Normal range of motion, no edema, dressing in place to left lower extremity. No clubbing or cyanosis. Peripheral pulses intact. ASSESSMENT Peripheral vascular disease status post atherectomy of the left common femoral artery, PCI of the right and left external iliacs and successful stenting of the left SFA Nonhealing left lower extremity wound Coronary artery disease Mitral regurgitation Hypertension Dyslipidemia PLAN She is scheduled to undergo wound debridement on Thursday with Dr. Tadeo in the OR. There is discussion of possible amputation depending on the extent underlying wound significant. Stable from a cardiac perspective. She can be transferred to medical floor. Nurse Practitioner note has been reviewed, I agree with a documented findings and plan of care. Patient was seen and examined. Objective - Vital Signs Vital signs: Vital Signs Temp 96.6 F L 08/20/20 08:00 Pulse 94 08/20/20 08:37 Resp 16 08/20/20 08:37 BP 136/64 08/20/20 08:00 Pulse Ox 100 08/20/20 08:00 Intake & Output 08/19/20 08/20/20 08/20/20 18:59 06:59 18:59 Intake Total 1080 550 240 Output Total 100 175 Balance 980 375 240 Weight 71.4 kg Intake: Intake, IV Titration 550 Amount Cefepime 2 gm In Sodium 100 Chloride 0.9% 100 ml @ 25 mls/hr IVPB Q12HR [facility] Rx #:[id number] Sodium Chloride 0.9% 1, 200 000 ml @ 50 mls/hr IV . Q20H [facility] Rx#:[id number] Vancomycin 1,250 mg In 250 Sodium Chloride 0.9% 250 ml @ 125 mls/hr IVPB Q16H [facility] Rx#:[id number] Oral 1080 240 Output: Urine 100 175 Other: Voiding Method Indwelling Catheter Indwelling Catheter Indwelling Catheter # Bowel Movements 1 - Labs CBC & Chem 7: 08/19/20 06:09 08/19/20 06:09 Labs: Microbiology - Last 24 Hours (Table) 08/17/20 18:50 Blood Culture Gram Stain - Final Blood Blood Culture - Final Staphylococcus epidermidis 08/17/20 19:06 Gram Stain - Final Toe - Left Second Wound Culture - Final Enterobacter cloacae
[2020-08-20] MEDS: ATORVASTATIN 80 MG TAB PO SCH (20:40)
--- NOTE | 2020-08-20 21:55 | PN ---
PROGRESS NOTE DATE OF SERVICE: 08/20/2020 REASON FOR FOLLOWUP: Left foot ulcer and cellulitis. INTERVAL HISTORY: The patient is currently afebrile. The patient is breathing comfortably. Patient denies having any chest pain or shortness of breath or cough. No abdominal pain or worsening pain to the left foot area. PHYSICAL EXAMINATION: Her blood pressure is 160/88 with a pulse of 85, temperature 97.7. She is 99% on room air. General description is an elderly female lying in bed in no distress. RESPIRATORY SYSTEM: Unlabored breathing. Clear to auscultation anteriorly. HEART: S1, S2. Regular rate and rhythm. ABDOMEN: Soft. No tenderness. Left foot is currently dressed up. No obvious drainage on the dressing. LABS: Wound culture with Enterobacter. Blood culture with coagulase-negative Staph. Hemoglobin 12.4, white count 6.6, creatinine 0.75. DIAGNOSTIC IMPRESSION AND PLAN: 1. Patient with a positive blood culture, Staphylococcus epidermidis; skin contamination. No need for vancomycin. 2. Left foot wound with secondary cellulitis. Culture positive for Enterobacter. Patient is covered with cefepime and may benefit from continuation of IV antibiotic in the outpatient setting. Continue with supportive care. MMODL / IJN: [id number] /
[2020-08-21 06:18] LABS: HCT 38.5 % (34.0-46.0); MCH 33.5 pg (25.0-35.0); MCHC 33.9 g/dL (31.0-37.0); MCV 98.8 fL (80.0-100.0); Mean Platelet Volume 8.2; Platelet Count 200 k/uL (150-450); RDW 14.4 % (11.5-15.5); WBC 6.9 k/uL (3.8-10.6)
[2020-08-21] MEDS: HYDROmorphone 1 MG/ML 1 ML SYRINGE IVP PRN ×3 (06:53→22:53)
[2020-08-21] MEDS ORDERED: MIDAZOLAM 2 MG/2 ML VIAL IV PRN (07:00)
[2020-08-21] MEDS: ISOSORBIDE MONONITRATE ER 30 MG TAB.ER.24H PO SCH (08:03)
[2020-08-21] MEDS: LOSARTAN 25 MG TAB PO SCH (08:03)
[2020-08-21] MEDS: CEFEPIME 2 GM in SODIUM CHLORIDE 0.9% 100 ML IVPB SCH ×2 (08:03→21:59)
[2020-08-21] MEDS: ASPIRIN 81 MG PO SCH (08:03)
[2020-08-21] MEDS: FAMOTIDINE 20 MG/2 ML VIAL IV SCH ×2 (08:03→21:58)
[2020-08-21] MEDS: ENOXAPARIN 40 MG/0.4 ML SYRINGE SQ SCH (08:03)
[2020-08-21] MEDS: CLOPIDOGREL 75 MG TAB PO SCH (08:03)
[2020-08-21] MEDS: METOPROLOL SUCCINATE (ER) 25 MG TAB.ER.24H PO SCH (08:03)
[2020-08-21] MEDS: COLLAGENASE 250 UNIT/GM OINTMENT 30 GM TUBE TOPICAL SCH (08:06)
[2020-08-21 09:50] LABS: African American GFR (CKD) 105.5 (60.0-200.0); Anion Gap 7.4 mmol/L (4.00-12.00); BUN/Creat Ratio 23.33 Ratio (12.00-20.00); Calcium 8.8 mg/dL (8.7-10.3); Carbon Dioxide 26.6 mmol/L (21.6-31.8); Non-African American GFR(CKD) 91.1 (60.0-200.0); Potassium 4.1 mmol/L (3.5-5.5)
--- NOTE | 2020-08-21 09:50 | P.PN ---
Subjective Progress Note Date: 08/21/20 Principal diagnosis: Nonhealing, infected wounds Patient seen and examined at the bedside. No acute changes through the night. Patient is scheduled for left foot wound debridement with possible TMA on Thursday with Dr. Tadeo. Patient states she still has extreme pain to the left lower extremity. Dressing was changed yesterday. Objective - Vital Signs Vital signs: Vital Signs Temp 97.6 F 08/21/20 05:00 Pulse 88 08/21/20 05:00 Resp 18 08/21/20 05:00 BP 156/81 08/21/20 05:00 Pulse Ox 96 08/21/20 05:00 Intake & Output 08/20/20 08/21/20 08/21/20 18:59 06:59 18:59 Intake Total 540 240 240 Output Total 600 Balance 540 -360 240 Intake: Oral 540 240 240 Output: Urine 600 Other: Voiding Method Indwelling Catheter Indwelling Catheter Indwelling Catheter # Bowel Movements 1 - Exam General appearance: The patient is alert, oriented, appears in no acute distress. HET: Head is normocephalic and atraumatic. Neck: Supple without lymphadenopathy. Trachea midline. Extremities: Left lower extremity edema, good capillary refill. Patient with intact dressing to the left lower extremity with some noted yellow drainage. Full range of motion. Neurological: No focal deficits. Strength and sensation are grossly intact. - Labs CBC & Chem 7: 08/21/20 05:39 08/19/20 06:09 Labs: Microbiology - Last 24 Hours (Table) 08/17/20 18:50 Blood Culture Gram Stain - Final Blood Blood Culture - Final Staphylococcus epidermidis Assessment and Plan Assessment: #1 left lower extremity nonhealing wound, infection and cellulitis #2 recent revascularization with bilateral iliac stenting, left superficial femoral artery atherectomy and stenting #3 tobacco abuse recently quit Plan: 1. Continue IV antibiotics 2. Continue local wound care 3. Patient is scheduled for left lower extremity wound debridement with possible TMA Thursday with Dr. Tadeo 4. Nothing by mouth after midnight 5. Hold aspirin and Plavix and Lovenox in a.m. The impression and plan of care has been dictated as directed. I performed a history and examination of this patient, discussed the same with the dictator. I agree with the dictator's note ,documented as a scribe. Any additional findings or plans will be noted.
--- NOTE | 2020-08-21 11:47 | P.PN ---
Subjective Progress Note Date: 08/21/20 HISTORY OF PRESENT ILLNESS: Patient examined this morning. Patient is sitting up in the chair eating breakfast. Patient denies chest pain or pressure. She denies shortness of breath. Blood pressure 156/81. Heart rate in the 80s. She is on 2 L nasal cannula with oxygen saturations greater than 92%. She is afebrile. PHYSICAL EXAM: VITAL SIGNS: Reviewed. GENERAL: Well-developed in no acute distress. NECK: Supple. No JVD or thyromegaly LUNGS: Respirations even and unlabored. Lungs diminished with scattered expiratory wheezes. HEART: Regular rate and rhythm. S1 and S2 heard. Systolic murmur noted. EXTREMITIES: Normal range of motion. No clubbing or cyanosis. Peripheral pulses intact. No lower extremity edema. Dressing noted to left lower extr emity ASSESSMENT: Peripheral vascular disease status post atherectomy of the left common femoral artery, PCI of the right and left external iliacs and successful stenting of the left SFA Nonhealing left lower extremity wound Coronary artery disease with previous PCI to LAD Mitral regurgitation Hypertension Dyslipidemia PLAN: Continue current cardiac medications Patient is stable from a cardiac perspective Patient scheduled for wound debridement and possible amputation tomorrow with Dr. Tadeo Nurse practitioner note has been reviewed by physician. Signing provider agrees with the documented findings, assessment, and plan of care. Objective - Vital Signs Vital signs: Vital Signs Temp 97.6 F 08/21/20 05:00 Pulse 88 08/21/20 05:00 Resp 18 08/21/20 05:00 BP 156/81 08/21/20 05:00 Pulse Ox 96 08/21/20 05:00 Intake & Output 08/20/20 08/21/20 08/21/20 18:59 06:59 18:59 Intake Total 540 240 240 Output Total 600 Balance 540 -360 240 Intake: Oral 540 240 240 Output: Urine 600 Other: Voiding Method Indwelling Catheter Indwelling Catheter Indwelling Catheter # Bowel Movements 1 - Labs CBC & Chem 7: 08/21/20 05:39 08/21/20 05:39 Labs: Abnormal Lab Results - Last 24 Hours (Table) 08/21/20 Range/Units 05:39 BUN/Creatinine Ratio 23.33 H (12.00-20.00) Ratio Microbiology - Last 24 Hours (Table) 08/17/20 18:50 Blood Culture Gram Stain - Final Blood Blood Culture - Final Staphylococcus epidermidis
[2020-08-21] MEDS: RANOLAZINE 500 MG TAB.ER.12H PO SCH ×2 (13:39→21:45)
--- NOTE | 2020-08-21 13:42 | P.PN ---
Subjective Progress Note Date: 08/21/20 HISTORY OF PRESENT ILLNESS This is a 74-year-old female patient with past medical history signif icant for critical limb ischemia of the left foot, hypertension, dyslipidemia, recently quit tobacco use. Patient has undergone angiogram which revealed severe aortoiliac disease and severe femoropopliteal disease and severe below the knee disease bilaterally. On August 15, patient underwent atherectomy of the left common femoral artery, stenting of the right and left external iliac arteries, successful stenting of the left SFA, balloon angioplasty of the left popliteal and angiogram. Patient was recommended for dual antiplatelet therapy, aggressive cholesterol control and risk factor modifications. Patient presented to the emergency center on August 17 with complaints of wounds and increasing pain and increasing erythema and wound drainage. 08/21: Patient is seen today on the [facility] floor. She is a positive blood culture for Staphylococcus epidermidis a skin contaminant. Vancomycin has been discontinued. She is currently receiving cefepime. Wound culture is positive Enterobacter. She denies significant pain to the left foot. She states she is undergoing intervention tomorrow. Dr. Tadeo has scheduled the patient for debridement and possible transmetatarsal amputation. Patient is afebrile, heart rate 79, blood pressure 165/77, pulse ox 97% on room air. WBC 6.9, hemoglobin 13. Creatinine 0.7. PHYSICAL EXAMINATION Gen: This is a 74-year-old female. Patient is resting in chair appears to be comfortable and in no acute distress. HEENT: Head is atraumatic, normocephalic. Pupils equal, round. Sclerae is anicteric. NECK: Supple. LUNGS: Diminished bilaterally. No intercostal retractions. HEART: Regular rate and rhythm. Systolic murmur. ABDOMEN: Soft. Bowel sounds are present. No masses. No tenderness. EXTREMITIES: Dressing in place to the left foot. NEUROLOGICAL: Patient is awake, alert and oriented x3. ASSESSMENT Left foot ulcer and cellulitis Blood culture positive for Staphylococcus epidermidis, skin contamination Severe peripheral artery disease Severe triple-vessel coronary artery disease Valvular heart disease with mitral regurgitation Hypertension Dyslipidemia History of tobacco use and dependence PLAN Vancomycin has been discontinued Continue cefepime 2 g IV piggyback every 12 hours Further recommendations to follow based upon clinical course Thank you kindly for this consultation. Nurse practitioner note has been reviewed, I agree with documented findings and plan of care. Patient was seen and examined. Objective - Vital Signs Vital signs: Vital Signs Temp 97.6 F 08/21/20 05:00 Pulse 88 08/21/20 05:00 Resp 18 08/21/20 05:00 BP 156/81 08/21/20 05:00 Pulse Ox 96 08/21/20 05:00 Intake & Output 08/20/20 08/21/20 08/21/20 18:59 06:59 18:59 Intake Total 540 240 240 Output Total 600 Balance 540 -360 240 Intake: Oral 540 240 240 Output: Urine 600 Other: Voiding Method Indwelling Catheter Indwelling Catheter Indwelling Catheter # Bowel Movements 1 - Labs CBC & Chem 7: 08/21/20 05:39 08/21/20 05:39 Labs: Abnormal Lab Results - Last 24 Hours (Table) 08/21/20 Range/Units 05:39 BUN/Creatinine Ratio 23.33 H (12.00-20.00) Ratio Microbiology - Last 24 Hours (Table) 08/17/20 18:50 Blood Culture Gram Stain - Final Blood Blood Culture - Final Staphylococcus epidermidis
--- NOTE | 2020-08-21 13:48 | P.PN ---
Subjective Progress Note Date: 08/21/20 74 years old female with multiple medical problems including COPD, hyperlipidemia, hypertension, osteoarthritis, multiple sclerosis, sleep apnea with is not compliant with CPAP. She was recently diagnosed with critical limb ischemia of the left foot and she underwent angiogram which revealed severe aortoiliac disease and severe femoral popliteal disease and severe rzdsb-jhi-gnhe disease bilaterally. She underwent atherectomy of the left common femoral artery, successful stenting of the right and left external iliac arteries, successful stenting of the left SFA and balloon angioplasty of the left popliteal. She was discharged yesterday. Presents because of worsening blisters and erythema associated with pain and purulent discharge. Patient states that she's been having worsening left lower extremity ischemic symptoms since March however lately for the last couple days the pain become more severe and she cannot take it anymore especially she ran out of her pain medication so she decided to come to emergency room. On admission Vitas looks stable. Labs including CBC, INR, BMP, liver enzymes are unremarkable. Troponins are elevated like to 0.07 and 0.07.Urine analysis is no suspicious of infection EKG showing sinus rhythm at 97 with sinus arrhythmia, T-wave inversion in the lateral legs including lead 1, 2, at 5.6 Left foot x-ray showing soft tissue swelling, increased compared to old exam. No focal bones In the emergency room patient was given Zosyn, IV vancomycin on normal saline at 75 mL/h, pain medication Consult placed for Dr. Montoya and ID team 08/19/2020 Patient with no new complaints. She vitals and labs are stable. presents with left foot cellulitis secondary to ischemic left lower extremity. Plant Facilities Technician team recommended no surgical intervention and to continue with antibiotics for now. Vascular surgery team been consulted pending the recommendation Patient currently is on Unasyn and IV vancomycin. Normal saline lower 75to 50 mL per hour 08/20/2020 Patient has a Enterobacter cloaca a in the wounds. Patient is presently on cefepime for that. Patient blood cultures are positive because of contamination and showing coagulase-negative staph. Patient is off oxygen at this time patient is getting IV fluids as well as Lasix IV fluids and this can you patient has significant swelling in the left leg. 08/21/2020 Patient seen in follow-up today currently sitting up in the chair with no acute overnight issues. Cardiology and vascular surgery following. Plans are for wound debridement with the possibility of amputation of the left lower extremity with Dr. Tadeo on Thursday. Patient continues to have lower extremity discomfort and swelling and states that the swelling is worsening in her right leg as well. Dressing of the left lower extremity is currently dry and intact. Brian wraps to bilateral lower extremities and instructed the patient to elevate them while at rest. Constitutional: Denied any fatigue denied any fever. Cardio vascular: denied any chest pain, palpitations Gastrointestinal denied any nausea vomiting Pulmonary: Reports shortness of breath with exertion, denies cough Neurologic denied any new focal deficits All inpatient medications were reviewed and appropriate changes in these medications as dictated in the interval history and assessment and plan. Objective - Vital Signs Vital signs: Vital Signs Temp 97.6 F 08/21/20 05:00 Pulse 88 08/21/20 05:00 Resp 18 08/21/20 05:00 BP 156/81 08/21/20 05:00 Pulse Ox 96 08/21/20 05:00 Intake & Output 08/20/20 08/21/20 08/21/20 18:59 06:59 18:59 Intake Total 540 240 240 Output Total 600 Balance 540 -360 240 Intake: Oral 540 240 240 Output: Urine 600 Other: Voiding Method Indwelling Catheter Indwelling Catheter Indwelling Catheter # Bowel Movements 1 - Exam GENERAL: The patient is alert and oriented x3, not in any acute distress. Well developed, well nourished. HEENT: Pupils are round and equally reacting to light. EOMI. No scleral icterus. No conjunctival pallor. Normocephalic, atraumatic. No pharyngeal erythema. No thyromegaly. CARDIOVASCULAR: S1 and S2 present. No murmurs, rubs, or gallops. PULMONARY: Chest is clear to auscultation, no wheezing or crackles. ABDOMEN: Soft, nontender, nondistended, normoactive bowel sounds. No palpable organomegaly. MUSCULOSKELETAL: No joint swelling or deformity. EXTREMITIES: No cyanosis, clubbing, left leg is swollen and the wrapped with bandage, minimal swelling noted of the right lower extremity NEUROLOGICAL: Gross neurological examination did not reveal any focal deficits. SKIN: No rashes. - Labs CBC & Chem 7: 08/21/20 05:39 08/21/20 05:39 Labs: Abnormal Lab Results - Last 24 Hours (Table) 08/21/20 Range/Units 05:39 BUN/Creatinine Ratio 23.33 H (12.00-20.00) Ratio Microbiology - Last 24 Hours (Table) 08/17/20 18:50 Blood Culture Gram Stain - Final Blood Blood Culture - Final Staphylococcus epidermidis Assessment and Plan Assessment: -Infected wounds and cellulitis of the left leg: Patient is maintained on cefepime as cultures have finalized showing Enterobacter cloacae. Patient will undergo debridement with Dr. Tadeo on Thursday with the discussion of possible amputation when they evaluate. Infectious disease is following -Left lower extremity ischemia and occluded severe aortoiliac disease and severe femoral popliteal disease, S/B atherectomy of the left common femoral artery, stenting of the right and left external iliac arteries, stenting of the left SFA and balloon angioplasty of the left popliteal. Vascular surgery along with cardiology following and patient has been cleared by cardiology to undergo wound debridement with vascular tomorrow with the possibility of amputation of the left lower extremity -Hypertension -Hyperlipidemia -Osteoarthritis -Sleep apnea not on CPAP -Multiple sclerosis -COPD, not in acute exacerbation -DVT prophylaxis with Lovenox Plan: Continue with current medications. Patient is maintained on IV cefepime and will continue at this time. Infectious disease along with cardiology and vascular surgery following. Patient scheduled to undergo debridement with possible amputation of the left lower extremity with Dr. Tadeo in the morning. Patient is currently on 2 L via nasal cannula with intermittent periods of room air and tolerating. Denies Any worsening shortness of breath. Patient does have oral Lasix ordered. Patient is maintained on Lovenox which will be held tonight for the procedure tomorrow. Patient continues to have some swelling of the lower extremities and instructed the patient to elevate while at rest although she states the pain becomes worse when elevating. Recommend Brian wrap from toes to knees of bilateral lower extremities.
[2020-08-21] MEDS ORDERED: LIDOCAINE 1% (10MG/ML) FOR IV START INTRADERMA PRN (17:50)
[2020-08-21] MEDS: ALPRAZolam 0.25 MG TAB PO PRN (20:58)
[2020-08-21] MEDS: ATORVASTATIN 80 MG TAB PO SCH (21:44)
[2020-08-22] MEDS: HYDROmorphone 1 MG/ML 1 ML SYRINGE IVP PRN ×3 (03:45→21:26)
[2020-08-22 05:16] LABS: HCT 39.7 % (34.0-46.0); HGB 13.1 gm/dL (11.4-16.0); MCH 32.8 pg (25.0-35.0); MCV 99.4 fL (80.0-100.0); Macrocytosis Slight; Platelet Count 221 k/uL (150-450); RBC 3.99 m/uL (3.80-5.40); RDW 14.3 % (11.5-15.5)
[2020-08-22] MEDS ORDERED: ONDANSETRON 4 MG/2 ML VIAL IVP PRN (07:00)
[2020-08-22] MEDS: DEXAMETHASONE SOD PHOSPHATE 4 MG/ML 1 ML VIAL IV ONE ×2 (07:51→12:16)
[2020-08-22] MEDS: CEFEPIME 2 GM in SODIUM CHLORIDE 0.9% 100 ML IVPB SCH ×2 (08:06→21:27)
[2020-08-22] MEDS: CLOPIDOGREL 75 MG TAB PO SCH (08:08)
[2020-08-22] MEDS: ENOXAPARIN 40 MG/0.4 ML SYRINGE SQ SCH (08:08)
[2020-08-22] MEDS: ASPIRIN 81 MG PO SCH (08:08)
[2020-08-22] MEDS: COLLAGENASE 250 UNIT/GM OINTMENT 30 GM TUBE TOPICAL SCH (08:08)
[2020-08-22] MEDS: LACTATED RINGERS 1,000 ML IV SCH ×2 (08:23→17:29)
[2020-08-22] MEDS: METOPROLOL SUCCINATE (ER) 25 MG TAB.ER.24H PO SCH (08:56)
[2020-08-22] MEDS: LOSARTAN 25 MG TAB PO SCH (08:57)
[2020-08-22] MEDS: ISOSORBIDE MONONITRATE ER 30 MG TAB.ER.24H PO SCH (08:57)
[2020-08-22] MEDS: IPRATROPIUM-ALBUTEROL 3 ML NEB INHALATION PRN (09:26)
[2020-08-22 09:51] LABS: African American GFR (CKD) 100.3 (60.0-200.0); Anion Gap 4.9 mmol/L (4.00-12.00); BUN/Creat Ratio 17.14 Ratio (12.00-20.00); Calcium 8.6 mg/dL (8.7-10.3); Carbon Dioxide 32.1 mmol/L (21.6-31.8); Non-African American GFR(CKD) 86.6 (60.0-200.0); Potassium 3.7 mmol/L (3.5-5.5)
[2020-08-22] MEDS: FAMOTIDINE 20 MG/2 ML VIAL IV SCH ×2 (11:18→21:26)
[2020-08-22] MEDS ORDERED: IV FLUID CONTINUATION 1,000 ML IV ONE (12:03)
[2020-08-22] MEDS ORDERED: ROCURONIUM 10 MG/ML (10 ML VIAL) IV ONE (12:30)
[2020-08-22] MEDS ORDERED: KETAMINE 10 MG/ML 20 ML VIAL ONE (12:30)
[2020-08-22] MEDS ORDERED: MIDAZOLAM 2 MG/2 ML VIAL ONE (12:30)
[2020-08-22] MEDS ORDERED: PROPOFOL 10 MG/ML 20 ML VIAL IV ONE (12:30)
[2020-08-22] MEDS ORDERED: fentaNYL (PF) 50 MCG/ML 2 ML AMP ONE (12:30)
[2020-08-22] MEDS: HYDROmorphone 0.5 MG/0.5 ML SYRINGE IVP PRN ×4 (13:42→14:05)
[2020-08-22] MEDS: MEPERIDINE 50 MG/ML SYRINGE IVP ONE ×2 (14:07→14:40)
--- NOTE | 2020-08-22 14:07 | PN ---
PROGRESS NOTE DATE OF SERVICE: 08/22/2020 REASON FOR FOLLOWUP: Left foot wound and cellulitis. INTERVAL HISTORY: The patient is currently afebrile. The patient is breathing comfortably. Scheduled for surgery this afternoon. Denies having any chest pain. No shortness of breath or cough. No abdominal pain. No diarrhea. PHYSICAL EXAMINATION: Blood pressure 148/66, pulse of 95, temperature 99.1. She is 96% on room air. General description is an elderly female lying in bed in no distress. RESPIRATORY SYSTEM: Unlabored breathing, clear to auscultation anteriorly. HEART: S1, S2. Regular rate and rhythm. ABDOMEN: Soft, no tenderness. Left foot is currently dressed up. No obvious drainage on the dressing. LABS: Hemoglobin 13.1, white count 8.0. BUN of 12, creatinine 0.7. DIAGNOSTIC IMPRESSION AND PLAN: 1. Patient with left foot wound with secondary cellulitis cultures with Enterobacter. Patient is covered with cefepime to continue will see the results of her surgery to plan for any antibiotic therapy on discharge. 2. Positive blood culture with coagulase negative staph likely skin contaminant no need for any therapy for the same. MMODL / IJN: [id number] /
--- NOTE | 2020-08-22 14:14 | P.OP ---
Date of Procedure: 08/22/20 Description of Procedure: Preoperative diagnosis: [Left lower extremity wounds, peripheral arterial disease] Postoperative diagnosis: Same Procedure: [ #1 sharp excisional debridement left lower extremity wounds Plantar fourth toe 1.2 x 0.5 x 0.3 cm to muscle Heel wound 2.0 x 1.7 x 0.2cm to SQ ankle wound 1.7 x 1.2 x 0.2cm to SQ medial leg wound 7x7x0.1 to dermis #2 removal of toenails 1 through 5 Surgeon: Tiesha Tadeo D.O. EBL: [10 mL see records] IV fluids: See records[] Urine output: [Not measured] Drains: [None] Complications: [None immediately apparent] Condition: [Stable to recovery] Operative indication and findings: [The patient is a 74-year-old female with recent worsening of her left lower extremity wounds. She underwent revascularization with a superficial femoral artery angioplasty and stent as well as iliac. This was done on 08/15/2020. Given this recent revascularization we did discuss the possibility of aggressive wound debridement versus possible transmetatarsal amputation. Risks and benefits of both were discussed with the patient seemingly understood and willing to proceed as such.] Procedure in detail: []The patient was brought to the operating room and placed in supine position. The left lower extremity was prepped and draped in usual sterile fashion. A preprocedure timeout was performed, all parties were in agreement. Using a pickups, the slough and dried tissues were of bubbles from the second through fourth toes. In doing so, one of the toenails was avulsed completely through the nail bed and plate. Hemostasis was achieved with pressure. At that point further investigation of the other nails were was undertaken and all were found to be with some mild discharge underneath therefore toenails 1 through 5 were removed all the nail bed and plate matrix. Further sharp debridement was performed with the curet on toenails 2 through 4. At the bottom of the fourth plantar site there is a wound that was sharply excised with a scalpel which did go down to muscle there was no evidence of drainage or discharge. Only eschar and subcutaneous tissues and muscle was debrided. There was excellent bleeding at the site as well. The heel was then debrided. There was an overlying area of eschar which was resected. It did not seem to perforate deeper than the subcutaneous tissues. At the medial ankle a wound was sharply debrided to the subcutaneous tissues as well. This is right over the medial malleolus. The ankle wound at the medial calf has significant slough. It was sharply debrided with curet to healthy appearing granulation tissue. All wounds were dressed with Adaptic and gauze. Kerlix and compression dressing were placed. The patient was allowed awaken from anesthesia and transferred to recovery in stable condition having tolerated the procedure well.
--- NOTE | 2020-08-22 14:58 | P.PN ---
Subjective Progress Note Date: 08/22/20 74 years old female with multiple medical problems including COPD, hyperlipidemia, hypertension, osteoarthritis, multiple sclerosis, sleep apnea with is not compliant with CPAP. She was recently diagnosed with critical limb ischemia of the left foot and she underwent angiogram which revealed severe aortoiliac disease and severe femoral popliteal disease and severe [id number] disease bilaterally. She underwent atherectomy of the left common femoral artery, successful stenting of the right and left external iliac arteries, successful stenting of the left SFA and balloon angioplasty of the left popliteal. She was discharged yesterday. Presents because of worsening blisters and erythema associated with pain and purulent discharge. Patient states that she's been having worsening left lower extremity ischemic symptoms since March however lately for the last couple days the pain become more severe and she cannot take it anymore especially she ran out of her pain medication so she decided to come to emergency room. On admission Vitas looks stable. Labs including CBC, INR, BMP, liver enzymes are unremarkable. Troponins are elevated like to 0.07 and 0.07.Urine analysis is no suspicious of infection EKG showing sinus rhythm at 97 with sinus arrhythmia, T-wave inversion in the lateral legs including lead 1, 2, at 5.6 Left foot x-ray showing soft tissue swelling, increased compared to old exam. No focal bones In the emergency room patient was given Zosyn, IV vancomycin on normal saline at 75 mL/h, pain medication Consult placed for Dr. Montoya and ID team 08/19/2020 Patient with no new complaints. She vitals and labs are stable. presents with left foot cellulitis secondary to ischemic left lower extremity. Picker Machine Operator team recommended no surgical intervention and to continue with antibiotics for now. Vascular surgery team been consulted pending the recommendation Patient currently is on Unasyn and IV vancomycin. Normal saline lower 75to 50 mL per hour 08/20/2020 Patient has a Enterobacter cloaca a in the wounds. Patient is presently on cefepime for that. Patient blood cultures are positive because of contamination and showing coagulase-negative staph. Patient is off oxygen at this time patient is getting IV fluids as well as Lasix IV fluids and this can you patient has significant swelling in the left leg. 08/21/2020 Patient seen in follow-up today currently sitting up in the chair with no acute overnight issues. Cardiology and vascular surgery following. Plans are for wound debridement with the possibility of amputation of the left lower extremity with Dr. Tadeo on Thursday. Patient continues to have lower extremity discomfort and swelling and states that the swelling is worsening in her right leg as well. Dressing of the left lower extremity is currently dry and intact. Brian wraps to bilateral lower extremities and instructed the patient to elevate them while at rest. 08/22/2020 Patient is seen this morning currently awaiting to undergo debridement of left lower extremity wounds with the possibility of transmetatarsal amputation once further evaluating and the procedure. Patient is currently covered with IV antibiotics and infectious disease is following. IV fluids have been discontinued and current creatinine is 0.7, sodium is 141, potassium is 3.7. Hemoglobin is stable at 13.1. Antiplatelet therapy have been held and will resume once cleared by vascular surgery and cardiology. Will discuss with vascular surgery. She denies any chest pain, shortness of breath, or palpitations. Patient has been nothing by mouth since midnight. Will await surgical report Constitutional: Denied any fatigue denied any fever. Cardio vascular: denied any chest pain, palpitations Gastrointestinal denied any nausea vomiting Pulmonary: No reports of shortness of breath, denies cough Neurologic denied any new focal deficits All inpatient medications were reviewed and appropriate changes in these medications as dictated in the interval history and assessment and plan. Objective - Vital Signs Vital signs: Vital Signs Temp 97.6 F 08/22/20 08:49 Pulse 83 08/22/20 09:41 Resp 20 08/22/20 08:49 BP 169/85 08/22/20 08:49 Pulse Ox 96 08/22/20 08:49 Intake & Output 08/21/20 08/22/20 08/22/20 18:59 06:59 18:59 Intake Total 780 Output Total 600 400 400 Balance 180 -400 -400 Intake: Intake, IV Titration 100 Amount Cefepime 2 gm In Sodium 100 Chloride 0.9% 100 ml @ 25 mls/hr IVPB Q12HR [facility] Rx #:[id number] Oral 680 Output: Urine 600 400 400 Other: Voiding Method Indwelling Catheter Indwelling Catheter Indwelling Catheter # Voids 3 2 2 - Exam GENERAL: The patient is alert and oriented x3, not in any acute distress. Well developed, well nourished. HEENT: Pupils are round and equally reacting to light. EOMI. No scleral icterus. No conjunctival pallor. Normocephalic, atraumatic. No pharyngeal erythema. No thyromegaly. CARDIOVASCULAR: S1 and S2 present. No murmurs, rubs, or gallops. PULMONARY: Chest is clear to auscultation, no wheezing or crackles. ABDOMEN: Soft, nontender, nondistended, normoactive bowel sounds. No palpable organomegaly. MUSCULOSKELETAL: No joint swelling or deformity. EXTREMITIES: No cyanosis, clubbing, left leg is swollen and the wrapped with bandage, minimal swelling noted of the right lower extremity, elevated on bilateral pillows while lying in bed NEUROLOGICAL: Gross neurological examination did not reveal any focal deficits. SKIN: No rashes. - Labs CBC & Chem 7: 08/22/20 05:02 08/22/20 05:02 Labs: Abnormal Lab Results - Last 24 Hours (Table) 08/22/20 Range/Units 05:02 Carbon Dioxide 32.1 H (21.6-31.8) mmol/L Calcium 8.6 L (8.7-10.3) mg/dL Assessment and Plan Assessment: -Infected wounds and cellulitis of the left leg: Patient is maintained on cefepime as cultures have finalized showing Enterobacter cloacae. Patient scheduled to undergo debridement with Dr. Tadeo today with the discussion of possible transmetatarsal amputation when they evaluate. Infectious disease is following -Left lower extremity ischemia and occluded severe aortoiliac disease and severe femoral popliteal disease, S/B atherectomy of the left common femoral artery, stenting of the right and left external iliac arteries, stenting of the left SFA and balloon angioplasty of the left popliteal. Vascular surgery along with cardiology following and patient has been cleared by cardiology to undergo wound debridement with vascular tomorrow with the possibility of transmetatarsal amputation of the left lower extremity -Hypertension -Hyperlipidemia -Osteoarthritis -Sleep apnea not on CPAP -Multiple sclerosis -COPD, not in acute exacerbation -DVT prophylaxis with Lovenox which was held for surgery Plan: Continue with current medications. Patient is maintained on IV cefepime and will continue at this time. Infectious disease along with cardiology and vascular surgery following. Patient scheduled to undergo debridement with possible amputation of the left lower extremity with Dr. Tadeo in the morning. Patient is currently on 2 L via nasal cannula with intermittent periods of room air and tolerating. Denies Any worsening shortness of breath. Patient does have oral Lasix ordered. Patient is maintained on Lovenox which will be held tonight for the procedure tomorrow. Patient continues to have some swelling of the lower extremities and instructed the patient to elevate while at rest although she states the pain becomes worse when elevating. Recommend Brian wrap from toes to knees of bilateral lower extremities.
[2020-08-22] MEDS: RANOLAZINE 500 MG TAB.ER.12H PO SCH ×2 (15:54→21:26)
[2020-08-22] MEDS: ALPRAZolam 0.25 MG TAB PO PRN (20:26)
[2020-08-22] MEDS: ATORVASTATIN 80 MG TAB PO SCH (21:26)
[2020-08-23] MEDS: HYDROcodone/APAP 5-325MG 1 EACH TAB PO PRN ×4 (00:14→20:55)
[2020-08-23] MEDS: HYDROmorphone 1 MG/ML 1 ML SYRINGE IVP PRN ×3 (04:07→17:24)
[2020-08-23] MEDS: CEFEPIME 2 GM in SODIUM CHLORIDE 0.9% 100 ML IVPB SCH ×2 (09:07→20:57)
[2020-08-23] MEDS: COLLAGENASE 250 UNIT/GM OINTMENT 30 GM TUBE TOPICAL SCH (09:41)
[2020-08-23] MEDS: CLOPIDOGREL 75 MG TAB PO SCH (09:51)
[2020-08-23] MEDS: ASPIRIN 81 MG PO SCH (09:51)
[2020-08-23] MEDS: ENOXAPARIN 40 MG/0.4 ML SYRINGE SQ SCH (09:52)
[2020-08-23] MEDS: LOSARTAN 25 MG TAB PO SCH (09:53)
[2020-08-23] MEDS: ISOSORBIDE MONONITRATE ER 30 MG TAB.ER.24H PO SCH (09:53)
[2020-08-23] MEDS: METOPROLOL SUCCINATE (ER) 25 MG TAB.ER.24H PO SCH (09:53)
[2020-08-23] MEDS: RANOLAZINE 500 MG TAB.ER.12H PO SCH ×2 (09:54→20:36)
--- NOTE | 2020-08-23 13:53 | P.PN ---
Subjective Progress Note Date: 08/23/20 74 years old female with multiple medical problems including COPD, hyperlipidemia, hypertension, osteoarthritis, multiple sclerosis, sleep apnea with is not compliant with CPAP. She was recently diagnosed with critical limb ischemia of the left foot and she underwent angiogram which revealed severe aortoiliac disease and severe femoral popliteal disease and severe xrplh-zen-whls disease bilaterally. She underwent atherectomy of the left common femoral artery, successful stenting of the right and left external iliac arteries, successful stenting of the left SFA and balloon angioplasty of the left popliteal. She was discharged yesterday. Presents because of worsening blisters and erythema associated with pain and purulent discharge. Patient states that she's been having worsening left lower extremity ischemic symptoms since March however lately for the last couple days the pain become more severe and she cannot take it anymore especially she ran out of her pain medication so she decided to come to emergency room. On admission Vitas looks stable. Labs including CBC, INR, BMP, liver enzymes are unremarkable. Troponins are elevated like to 0.07 and 0.07.Urine analysis is no suspicious of infection EKG showing sinus rhythm at 97 with sinus arrhythmia, T-wave inversion in the lateral legs including lead 1, 2, at 5.6 Left foot x-ray showing soft tissue swelling, increased compared to old exam. No focal bones In the emergency room patient was given Zosyn, IV vancomycin on normal saline at 75 mL/h, pain medication Consult placed for Dr. Montoya and ID team 08/19/2020 Patient with no new complaints. She vitals and labs are stable. presents with left foot cellulitis secondary to ischemic left lower extremity. Ballistics Tester team recommended no surgical intervention and to continue with antibiotics for now. Vascular surgery team been consulted pending the recommendation Patient currently is on Unasyn and IV vancomycin. Normal saline lower 75to 50 mL per hour 08/20/2020 Patient has a Enterobacter cloaca a in the wounds. Patient is presently on cefepime for that. Patient blood cultures are positive because of contamination and showing coagulase-negative staph. Patient is off oxygen at this time patient is getting IV fluids as well as Lasix IV fluids and this can you patient has significant swelling in the left leg. 08/21/2020 Patient seen in follow-up today currently sitting up in the chair with no acute overnight issues. Cardiology and vascular surgery following. Plans are for wound debridement with the possibility of amputation of the left lower extremity with Dr. Tadeo on Thursday. Patient continues to have lower extremity discomfort and swelling and states that the swelling is worsening in her right leg as well. Dressing of the left lower extremity is currently dry and intact. Brian wraps to bilateral lower extremities and instructed the patient to elevate them while at rest. 08/22/2020 Patient is seen this morning currently awaiting to undergo debridement of left lower extremity wounds with the possibility of transmetatarsal amputation once further evaluating and the procedure. Patient is currently covered with IV antibiotics and infectious disease is following. IV fluids have been discontinued and current creatinine is 0.7, sodium is 141, potassium is 3.7. Hemoglobin is stable at 13.1. Antiplatelet therapy have been held and will resume once cleared by vascular surgery and cardiology. Will discuss with vascular surgery. She denies any chest pain, shortness of breath, or palpitations. Patient has been nothing by mouth since midnight. Will await surgical report 08/23/2020 She is seen in follow-up this morning status post debridement of the left foot wounds with Dr. Tadeo and dressings have been recently changed and appear dry and intact. Patient continues to have discomfort of the left lower extremity and swelling has improved. She does have bilateral lower extremities elevated and is currently sitting up in the chair. Aspirin and Plavix to be resumed. Patient is tolerating diet with no reports of nausea or vomiting noted. Patient is maintained on IV antibiotics in the form of cefepime and will need to discuss with infectious disease about antibiotics upon discharge. Case management also following and working on discharge planning needs. Patient is afebrile. No reports of chest pain or shortness of breath noted. Constitutional: Denied any fatigue denied any fever. Cardio vascular: denied any chest pain, palpitations Gastrointestinal denied any nausea vomiting Pulmonary: No reports of shortness of breath, denies cough Neurologic denied any new focal deficits All inpatient medications were reviewed and appropriate changes in these medications as dictated in the interval history and assessment and plan. Objective - Vital Signs Vital signs: Vital Signs Temp 97.8 F 08/23/20 13:18 Pulse 95 08/23/20 13:18 Resp 16 08/23/20 13:18 BP 152/62 08/23/20 13:18 Pulse Ox 92 L 08/23/20 13:18 Intake & Output 08/22/20 08/23/20 08/23/20 18:59 06:59 18:59 Intake Total 425 Output Total 1335 400 Balance -910 -400 Intake: IV 425 Output: Urine 1325 400 Estimated Blood Loss 10 Other: Voiding Method Indwelling Catheter Indwelling Catheter Indwelling Catheter # Voids 2 0 - Exam GENERAL: The patient is alert and oriented x3, not in any acute distress. Well developed, well nourished. HEENT: Pupils are round and equally reacting to light. EOMI. No scleral icterus. No conjunctival pallor. Normocephalic, atraumatic. No pharyngeal erythema. No thyromegaly. CARDIOVASCULAR: S1 and S2 present. No murmurs, rubs, or gallops. PULMONARY: Chest is clear to auscultation, no wheezing or crackles. ABDOMEN: Soft, nontender, nondistended, normoactive bowel sounds. No palpable organomegaly. MUSCULOSKELETAL: No joint swelling or deformity. EXTREMITIES: No cyanosis, clubbing, swelling of the left lower extremity has improved in surgical dressings changed this morning of debridement of the left foot and leg wounds and is dry and intact. Bilateral lower extremities elevated as patient is sitting up in the chair NEUROLOGICAL: Gross neurological examination did not reveal any focal deficits. SKIN: No rashes. - Labs CBC & Chem 7: 08/22/20 05:02 08/22/20 05:02 Assessment and Plan Assessment: -Infected wounds and cellulitis of the left leg: Patient is maintained on cefepime as cultures have finalized showing Enterobacter cloacae. Patient underwent debridement and toenail removal of the left foot and lower extremity wounds. ID also following and will need to discuss outpatient antibiotic recommendations. -Left lower extremity ischemia and occluded severe aortoiliac disease and severe femoral popliteal disease, S/B atherectomy of the left common femoral artery, stenting of the right and left external iliac arteries, stenting of the left SFA and balloon angioplasty of the left popliteal. Underwent wound debridement with vascular. Resuming aspirin and Plavix -Hypertension -Hyperlipidemia -Osteoarthritis -Sleep apnea not on CPAP -Multiple sclerosis -COPD, not in acute exacerbation -DVT prophylaxis with Lovenox resumed Plan: Patient underwent debridement and toenail removal of the left foot and lower extremity with Dr. Tadeo. Discussed with vascular surgery and resuming aspirin and Plavix and patient is maintained on Lovenox subcutaneous. Patient currently on IV cefepime and infectious disease is following. We'll need to discuss about possible midline her PICC line and outpatient IV antibiotic recommendations. Case management following and working on discharge planning needs. Instructed the patient to increase activity as tolerated and elevate lower extremities while at rest. Possible discharge in 24-48 hours.
[2020-08-23] MEDS: FAMOTIDINE 20 MG/2 ML VIAL IV SCH ×2 (15:05→20:56)
--- NOTE | 2020-08-23 15:28 | PN ---
PROGRESS NOTE DATE OF SERVICE: 08/23/2020 REASON FOR FOLLOWUP: Left foot wound and cellulitis. INTERVAL HISTORY: The patient is currently afebrile. The patient is status post debridement of the wound yesterday per Vascular Surgery. The patient's pain is currently controlled. Denies having any chest pain or shortness of breath or cough. No abdominal pain or diarrhea. PHYSICAL EXAMINATION: Blood pressure 152/62 with a pulse of 95, temperature 97.8. She is 92% on 3 L nasal cannula. General description is an elderly female up in the chair in no distress. RESPIRATORY SYSTEM: Unlabored breathing, clear to auscultation anteriorly. HEART: S1, S2. Regular rate and rhythm. ABDOMEN: Soft, no tenderness. LABS: Hemoglobin 13.1, white count 8.0, BUN of 12, creatinine 0.7. DIAGNOSTIC IMPRESSION AND PLAN: Patient with left foot wound infection with secondary cellulitis. This patient who is status post debridement of the wound completed yesterday. Culture positive for Enterobacter. She is currently on cefepime. Will get a Midline for outpatient antibiotic therapy short course and close outpatient followup. MMODL / IJN: [id number] /
[2020-08-23] MEDS: ALPRAZolam 0.25 MG TAB PO PRN (20:36)
[2020-08-23] MEDS: ATORVASTATIN 80 MG TAB PO SCH (20:36)
[2020-08-24] MEDS: HYDROmorphone 1 MG/ML 1 ML SYRINGE IVP PRN ×2 (02:51→09:19)
[2020-08-24 04:32] VITALS: PULSE 78
[2020-08-24] MEDS: FAMOTIDINE 20 MG/2 ML VIAL IV SCH (07:59)
[2020-08-24] MEDS: CEFEPIME 2 GM in SODIUM CHLORIDE 0.9% 100 ML IVPB SCH (07:59)
[2020-08-24] MEDS: ASPIRIN 81 MG PO SCH (08:01)
[2020-08-24] MEDS: METOPROLOL SUCCINATE (ER) 25 MG TAB.ER.24H PO SCH (08:02)
[2020-08-24] MEDS: ISOSORBIDE MONONITRATE ER 30 MG TAB.ER.24H PO SCH (08:04)
[2020-08-24] MEDS: CLOPIDOGREL 75 MG TAB PO SCH (08:04)
[2020-08-24] MEDS: RANOLAZINE 500 MG TAB.ER.12H PO SCH (08:07)
[2020-08-24] MEDS: LOSARTAN 25 MG TAB PO SCH (08:08)
[2020-08-24] MEDS: ENOXAPARIN 40 MG/0.4 ML SYRINGE SQ SCH (08:09)
[2020-08-24] MEDS: COLLAGENASE 250 UNIT/GM OINTMENT 30 GM TUBE TOPICAL SCH (09:11)
[2020-08-24 09:27] LABS: African American GFR (CKD) 100.3 (60.0-200.0); Anion Gap 6.6 mmol/L (4.00-12.00); BUN/Creat Ratio 25.71 Ratio (12.00-20.00); Calcium 8.6 mg/dL (8.7-10.3); Carbon Dioxide 30.4 mmol/L (21.6-31.8); Non-African American GFR(CKD) 86.6 (60.0-200.0); Potassium 4.3 mmol/L (3.5-5.5)
--- NOTE | 2020-08-24 10:35 | P.CONS ---
History of Present Illness - Reason for Consult Consult date: 08/24/20 wound care - History of Present Illness This is a 74-year-old pleasant female who is known to the wound care center. She sees Dr. Kimberley Robbins. Patient underwent a surgical debridement of second to fourth digit and calcaneus. At this time utilizing Adaptic and gauze Kerlix and a compression dressing. Patient will continue to be seen in the wound care center weekly with Dr. Kmiberley Robbins. At home patient we'll utilize absorptive silver for dressing changes. Review Of Systems: Constitutional: No fever, no chills, no night sweats. No weight change. No weakness, fatigue or lethargy. No daytime sleepiness. Integumentary:reports wounds, no lesions. No rash or pruritus. No unusual bruising. No change in hair or nails. Physical exam: General Appearance: Alert, cooperative, no distress, appears stated age. Skin: Surgical dressing in place clean and dry. all other Skin color, texture, tugor normal, no rashes or lesions. Neurologic: Alert oriented x3 Assessment and plan: 1. Arthrosclerosis of [place] vessels of the left leg with ulceration of heel and midfoot 2. 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 Saline moistened gauze, dry gauze, rolled gauze to curette paper tape. Secure with a Brian wrap. Patient to change the dressings on Thursday. Keep her appointment for August 29 at 9:15 in the wound care center with Dr. Sanchez. Thank you for the consultation any questions please contact the wound care center DNP note has been reviewed and discussed with Dr. Sanchez and the impression and plan of care has been directed as dictated. Past Medical History Past Medical History: COPD, Hyperlipidemia, Hypertension, Neurologic Disorder, Osteoarthritis (OA), Skin Disorder, Sleep Apnea/CPAP/BIPAP, Vascular Disorder Additional Past Medical History / Comment(s): "leaky mitral valve", wound left foot-multiple areas, seen in wound center, [place], occasional use of oxygen for sleep apnea, doesn't use CPAP. [place] History of Any Multi-Drug Resistant Organisms: None Reported Past Surgical History: Appendectomy, Breast Surgery, Heart Catheterization With Stent, Tonsillectomy Additional Past Surgical History / Comment(s): joya benign breast biopsy, leg stents bilat. Past Anesthesia/Blood Transfusion Reactions: No Reported Reaction, Motion Sickness Date of Last Stent Placement:: 2009 Past Psychological History: Anxiety, Depression Smoking Status: Former smoker Past Alcohol Use History: None Reported Additional Past Alcohol Use History / Comment(s): smoker since age 17 1-1 1/2ppd, quit smoking 2 month ago Past Drug Use History: None Reported Additional Drug Use History / Comment(s): cbd lotion - Past Family History Mother Family Medical History: Diabetes Mellitus Medications and Allergies Home Medications Medication Instructions Recorded Confirmed Type Aspirin [Adult Low Dose Aspirin EC] 81 mg PO DAILY 05/09/20 08/17/20 History Cyanocobalamin (Vitamin B-12) 1,000 mcg PO DAILY 05/09/20 08/17/20 History [Vitamin B-12] Isosorbide Mononitrate ER [Imdur] 30 mg PO DAILY 05/09/20 08/17/20 History Ascorbic Acid [Vitamin C] 500 mg PO DAILY 08/02/20 08/17/20 History Atorvastatin [Lipitor] 80 mg PO HS 08/02/20 08/17/20 History Losartan [Cozaar] 25 mg PO DAILY 08/02/20 08/17/20 History Metoprolol Succinate [Toprol XL] 25 mg PO DAILY 08/02/20 08/17/20 History Ranolazine [Ranexa] 500 mg PO BID 08/02/20 08/17/20 History Furosemide [Lasix] 20 mg PO BID PRN 08/09/20 08/17/20 History Clopidogrel Bisulfate [Plavix] 75 mg PO DAILY #90 tab 08/16/20 08/17/20 Rx Cholecalciferol [Vitamin D3 (25 25 mcg PO DAILY 08/17/20 08/17/20 History Mcg = 1000 Iu)] Collagenase [Santyl] 1 applic TOPICAL DAILY 08/17/20 08/17/20 History traMADol HCl [Ultram] 50 mg PO BID PRN 08/17/20 08/17/20 History Allergies Allergy/AdvReac Type Severity Reaction Status Date / Time sumatriptan [From Imitrex] Allergy Chest Pain Verified 08/17/20 20:11 Physical Exam Vitals: Vital Signs Temp Pulse Resp BP Pulse Ox 08/24/20 04:31 98 F 78 18 159/75 98 08/23/20 19:45 98.2 F 101 H 20 141/64 97 08/23/20 17:40 98.3 F 71 18 137/76 97 08/23/20 13:18 97.8 F 95 16 152/62 92 L Intake and Output 08/23/20 08/24/20 08/24/20 22:59 06:59 14:59 Intake Total 200 Output Total 350 Balance 200 -350 Intake: Intake, IV Titration 200 Amount Cefepime 2 gm In Sodium 200 Chloride 0.9% 100 ml @ 25 mls/hr IVPB Q12HR MARY ANNE Rx #:[id number] Output: Urine 350 Other: # Bowel Movements 1 Results CBC & Chem 7: 08/22/20 05:02 08/24/20 04:12 Labs: Abnormal Lab Results - Last 24 Hours (Table) 08/24/20 Range/Units 04:12 BUN/Creatinine Ratio 25.71 H (12.00-20.00) Ratio Calcium 8.6 L (8.7-10.3) mg/dL Microbiology - Last 24 Hours (Table) 08/23/20 06:45 Blood Culture - Preliminary Blood No Growth after 24 hours Assessment and Plan (1) Non-pressure chronic ulcer of left heel and midfoot with muscle involvement without evidence of necrosis Current Visit: Yes Status: Acute Code(s): L97.425 - NON-PRS CHR ULC OF L HEEL/MIDFT W MSL INVL W/O EVD OF NECR SNOMED Code(s): 494400651 (2) Atherosclerosis of [place] arteries of left leg with ulceration of heel and midfoot Current Visit: No Status: Acute Code(s): I70.244 - ATHSCL [place] ART OF LEFT LEG W ULCER OF HEEL AND MIDFOOT SNOMED Code(s): 130242882
[2020-08-24 13:13] VITALS: BP 151/87; RESP 20; TEMP 97.9
--- NOTE | 2020-08-24 13:46 | P.PN ---
Subjective Progress Note Date: 08/24/20 Principal diagnosis: Nonhealing, infected wounds Patient is seen and examined sitting up in the bedside chair her left lower extremity elevated with nursing and dressing change. The patient appears to be comfortable. No acute changes through the night. PICC line is been placed. Plan is for discharge home with home care. She will follow-up with wound care. Objective - Vital Signs Vital signs: Vital Signs Temp 98 F 08/24/20 04:31 Pulse 78 08/24/20 04:31 Resp 18 08/24/20 04:31 BP 159/75 08/24/20 04:31 Pulse Ox 98 08/24/20 04:31 Intake & Output 08/23/20 08/24/20 08/24/20 18:59 06:59 18:59 Intake Total 100 100 Output Total 350 Balance 100 -250 Intake: Intake, IV Titration 100 100 Amount Cefepime 2 gm In Sodium 100 100 Chloride 0.9% 100 ml @ 25 mls/hr IVPB Q12HR MARY ANNE Rx #:[id number] Output: Urine 350 Other: Voiding Method Indwelling Catheter # Bowel Movements 1 - Exam General appearance: The patient is alert, oriented, appears in no acute distress. HET: Head is normocephalic and atraumatic. Neck: Supple without lymphadenopathy. Trachea midline. Extremities: Left lower extremity dressing clean dry and intact. Neurological: No focal deficits. Strength and sensation are grossly intact. - Labs CBC & Chem 7: 08/22/20 05:02 08/24/20 04:12 Labs: Abnormal Lab Results - Last 24 Hours (Table) 08/24/20 Range/Units 04:12 BUN/Creatinine Ratio 25.71 H (12.00-20.00) Ratio Calcium 8.6 L (8.7-10.3) mg/dL Microbiology - Last 24 Hours (Table) 08/23/20 06:45 Blood Culture - Preliminary Blood No Growth after 24 hours Assessment and Plan Assessment: #1 postop day #2 for debridement left lower extremity wounds, as well as toenail removal #2 left lower extremity nonhealing wound, infection and cellulitis #3 recent revascularization with bilateral iliac stenting, left superficial fe moral artery atherectomy and stenting #4 tobacco abuse recently quit Plan: 1. Continue IV antibiotics 2. Continue local wound care daily 3. Wound care consulted, patient will follow-up in outpatient wound center 4. May restart aspirin and Plavix 5. May be discharged home from a vascular surgical standpoint with follow-up with Dr. Tadeo in 1-2 weeks. The impression and plan of care has been dictated as directed. Dr. Tadeo I performed a history and examination of this patient, discussed the same with the dictator. I agree with the dictator's note ,documented as a scribe. Any additional findings or plans will be noted.
[2020-08-24] MEDS ORDERED: TAMSULOSIN 0.4 MG CAP.ER.24H PO STA (15:06)
[2020-08-24] MEDS ORDERED: FUROSEMIDE 10 MG/ML 2 ML VIAL IV STA (15:07)
--- NOTE | 2020-08-24 18:51 | PN ---
PROGRESS NOTE DATE OF SERVICE: 08/24/2020 REASON FOR FOLLOWUP: Left lower extremity wound and cellulitis. INTERVAL HISTORY: The patient was seen on rounds early this afternoon. The patient has been afebrile. Overall pain and discomfort to the left leg wound has decreased. The patient denies having any chest pain or cough. No abdominal pain or diarrhea. PHYSICAL EXAMINATION: Blood pressure 151/87, pulse of 78, temperature 97.9. She is 98% on room air. General description is an elderly female lying in bed in no distress. RESPIRATORY SYSTEM: Unlabored breathing. Clear to auscultation anteriorly. HEART: S1, S2. Regular rate and rhythm. ABDOMEN: Soft. No tenderness. Left lower extremity wound base looks clean. No significant slough tissue. Some surrounding swelling and redness. No drainage. LABS: BUN of 18, creatinine 0.7. DIAGNOSTIC IMPRESSION AND PLAN: Patient with a left lower extremity wound with secondary cellulitis. Local care with a dry Aquacel Silver dressing. Antibiotic in the form of cefepime 2 grams q.12 for 2 weeks and close outpatient followup. MMODL / IJN: [id number] /
[2020-08-24] MEDS ORDERED: FAMOTIDINE 20 MG TAB PO SCH (21:00)
--- NOTE | 2020-08-27 09:03 | P.DS ---
Providers Date of admission: 08/20/20 07:57 Expected date of discharge: 08/24/20 Attending physician: Quintin Elizondo Consults: 08/17/20 19:30 Consult Physician Urgent Consulting Provider: Dell Carcamo Consult Reason/Comments: Infected wounds toes Do you want consulting provider notified?: Yes 08/18/20 13:08 Consult Physician Urgent Consulting Provider: Tiesha Tadeo Consult Reason/Comments: left leg and toe wounds, debridment Do you want consulting provider notified?: Yes Primary care physician: Sydnie Reynolds Hospital Course: Final diagnosis -Infected wounds and cellulitis of the left leg as cultures have finalized showing Enterobacter cloacae -Status post debridement of multiple wounds of the left lower extremity and foot along with all 5 digit toenail removal -Left lower extremity ischemia and occluded severe aortoiliac disease and severe femoral popliteal disease, S/B atherectomy of the left common femoral artery, stenting of the right and left external iliac arteries, stenting of the left SFA and balloon angioplasty of the left popliteal -Hypertension -Hyperlipidemia -Osteoarthritis -Sleep apnea not on CPAP -Multiple sclerosis -COPD, not in acute exacerbation -DVT prophylaxis Discharge disposition Patient is being discharged in a stable condition with guarded prognosis to home. Patient will continue with home care in the outpatient setting. Patient will follow-up with Dr. Reynolds in the outpatient setting upon discharge. Patient will also be following up outpatient with the wound center along with vascular surgery Dr. Tadeo as scheduled. She will continue with IV antibiotics in the form of cefepime 2 g twice daily for the next 2 weeks. Total time taken is greater than 35 minutes. Hospital course 74 years old female with multiple medical problems including COPD, hyperlipidemia, hypertension, osteoarthritis, multiple sclerosis, sleep apnea with is not compliant with CPAP. She was recently diagnosed with critical limb ischemia of the left foot and she underwent angiogram which revealed severe aortoiliac disease and severe femoral popliteal disease and severe zqwbg-ago-bswl disease bilaterally. She underwent atherectomy of the left common femoral artery, successful stenting of the right and left external iliac arteries, successful stenting of the left SFA and balloon angioplasty of the left popliteal. She was discharged yesterday. Presents because of worsening blisters and erythema associated with pain and purulent discharge. Patient states that she's been having worsening left lower extremity ischemic symptoms since March however lately for the last couple days the pain become more severe and she cannot take it anymore especially she ran out of her pain medication so she decided to come to emergency room. 08/24/2020 Patient is seen and evaluated this morning and follow-up in currently awaiting to receive a midline for IV antibiotic therapy in the outpatient setting. Patient does have coverage and will be continuing with [facility] infusion with IV cefepime 2 g twice daily for the next 2 weeks and will be following up at the wound care center. Wound care instructions provided by the wound care nurse pr actitioner. Wound cultures finalized showing Enterobacter Cloqae. Patient will continue with home care in the outpatient setting. Aspirin and Plavix have been resumed. Patient will also be following up with vascular surgery Dr. Tadeo in the outpatient setting. During hospitalization patient underwent debridement of multiple wounds noted on the left foot and lower extremity along with left foot all 5 digit toenail removal. Currently no reports of chest pain, shortness of breath, or palpitations. Patient is afebrile. No reports of nausea or vomiting and patient is tolerating diet. Patient will be discharged home today. On exam vital signs are stable. Temp is 97.9F, pulse is 78, respirations are 20, blood pressure is 151/87, oxygen saturation is 98% on room air. Cardio S1, S2 are muffled. Respiratory system shows diminished breath sounds at the bases with no wheezing or rhonchi noted. Abdomen is soft and nontender. Nervous system shows no focal deficits. Please refer to medication reconciliation sheet for a list of medications. Patient Condition at Discharge: Stable Plan - Discharge Summary Discharge Rx Participant: No New Discharge Prescriptions: New HYDROcodone/APAP 5-325MG [[place] 5-325] 1 each PO Q6H PRN #16 tab PRN Reason: Pain Budesonide/Formoterol Fumarate [Symbicort 160-4.5 Mcg Inhaler] 1 puff IH BID 30 Days #1 hfa.aer.ad Albuterol Inhaler [Ventolin Hfa Inhaler] 1 puff INHALATION RT-QID 30 Days #1 puff Continue Isosorbide Mononitrate ER [Imdur] 30 mg PO DAILY Aspirin [Adult Low Dose Aspirin EC] 81 mg PO DAILY Cyanocobalamin (Vitamin B-12) [Vitamin B-12] 1,000 mcg PO DAILY Atorvastatin [Lipitor] 80 mg PO HS Ascorbic Acid [Vitamin C] 500 mg PO DAILY Ranolazine [Ranexa] 500 mg PO BID Metoprolol Succinate [Toprol XL] 25 mg PO DAILY Losartan [Cozaar] 25 mg PO DAILY Furosemide [Lasix] 20 mg PO BID PRN PRN Reason: Edema Clopidogrel Bisulfate [Plavix] 75 mg PO DAILY #90 tab Cholecalciferol [Vitamin D3 (25 Mcg = 1000 Iu)] 25 mcg PO DAILY traMADol HCl [Ultram] 50 mg PO BID PRN PRN Reason: Pain Collagenase [Santyl] 1 applic TOPICAL DAILY Discharge Medication List Aspirin [Adult Low Dose Aspirin EC] 81 mg PO DAILY 05/09/20 [History] Cyanocobalamin (Vitamin B-12) [Vitamin B-12] 1,000 mcg PO DAILY 05/09/20 [History] Isosorbide Mononitrate ER [Imdur] 30 mg PO DAILY 05/09/20 [History] Ascorbic Acid [Vitamin C] 500 mg PO DAILY 08/02/20 [History] Atorvastatin [Lipitor] 80 mg PO HS 08/02/20 [History] Losartan [Cozaar] 25 mg PO DAILY 08/02/20 [History] Metoprolol Succinate [Toprol XL] 25 mg PO DAILY 08/02/20 [History] Ranolazine [Ranexa] 500 mg PO BID 08/02/20 [History] Furosemide [Lasix] 20 mg PO BID PRN 08/09/20 [History] Clopidogrel Bisulfate [Plavix] 75 mg PO DAILY #90 tab 08/16/20 [Rx] Cholecalciferol [Vitamin D3 (25 Mcg = 1000 Iu)] 25 mcg PO DAILY 08/17/20 [History] Collagenase [Santyl] 1 applic TOPICAL DAILY 08/17/20 [History] traMADol HCl [Ultram] 50 mg PO BID PRN 08/17/20 [History] Albuterol Inhaler [Ventolin Hfa Inhaler] 1 puff INHALATION RT-QID 30 Days #1 puff 08/24/20 [Rx] Budesonide/Formoterol Fumarate [Symbicort 160-4.5 Mcg Inhaler] 1 puff IH BID 30 Days #1 hfa.aer.ad 08/24/20 [Rx] HYDROcodone/APAP 5-325MG [[place] 5-325] 1 each PO Q6H PRN #16 tab 08/24/20 [Rx] Follow up Appointment(s)/Referral(s): Tiesha Tadeo DO [STAFF PHYSICIAN] - 09/05/20 9:30 am [facility], [NON-STAFF] - 1 Week (will come out to teach you and your how to infuse the antibiotics and monitor your progress.) [facility],Infusion [NON-STAFF] - 1 Week (will supply antibiotics and supplies) [facility] [NON-STAFF] - 08/29/20 9:15 am Sydnie Reynolds MD [Primary Care Provider] - 1-2 days (The office is closed please call and make follow up appointment.) Patient Instructions/Handouts: Hydrocodone/Acetaminophen (By mouth), Albuterol (By breathing), Cefepime (By injection), Budesonide/Formoterol (By breathing), Debridement (DC) Activity/Diet/Wound Care/Special Instructions: Cefepime 2 Grams Q12hr for 2 weeks - infusion will be at home with [facility] and [facility] supplying your supplies Activity Limited until follow-up Continue current diet Continue with antibiotics per infectious disease Follow up with primary care provider Follow-up with vascular surgery as instructed Follow-up at the wound care center on scheduled appointment this Thursday Continue with home care Discharge Disposition: HOME WITH HOME HEALTH SERVICES
== END 2020-08-24 16:22 | disposition home health service (06) | DRG 264 ==
LOC: EC 18:02 → 3SCARD 19:30 → OBSVTOIN 08-20 07:57 → 5NMEDONC 08-20 16:18
PROVIDERS: ADMIT Hospitalist; ATTEND Hospitalist
PROC: 0KBW0ZZ Excision of Left Foot Muscle, Open Approach (ICD-10-PCS; principal; 2020-08-22 12:30)
PROC: 0HBRXZZ Excision of Toe Nail, External Approach (ICD-10-PCS; principal; 2020-08-22 12:30)
PROC: 0JBR0ZZ Excision of Left Foot Subcutaneous Tissue and Fascia, Open Approach (ICD-10-PCS; principal; 2020-08-22 12:30)
DX: E11.51 Type 2 diabetes mellitus with diabetic peripheral angiopathy without gangrene (principal); L03.116 Cellulitis of left lower limb; L97.425 Non-pressure chronic ulcer of left heel and midfoot with muscle involvement without evidence of necrosis; F32.9 Major depressive disorder, single episode, unspecified; E78.5 Hyperlipidemia, unspecified; F41.9 Anxiety disorder, unspecified; G35 Multiple sclerosis; I10 Essential (primary) hypertension; I25.10 Atherosclerotic heart disease of native coronary artery without angina pectoris; G47.30 Sleep apnea, unspecified; I70.244 Atherosclerosis of native arteries of left leg with ulceration of heel and midfoot; J44.9 Chronic obstructive pulmonary disease, unspecified; M19.90 Unspecified osteoarthritis, unspecified site; I25.82 Chronic total occlusion of coronary artery; I34.0 Nonrheumatic mitral (valve) insufficiency; E11.621 Type 2 diabetes mellitus with foot ulcer; I49.3 Ventricular premature depolarization; L97.529 Non-pressure chronic ulcer of other part of left foot with unspecified severity; Z91.19 Patient's noncompliance with other medical treatment and regimen; Z87.891 Personal history of nicotine dependence; Z83.3 Family history of diabetes mellitus; Z79.899 Other long term (current) drug therapy; Z79.82 Long term (current) use of aspirin; Z79.02 Long term (current) use of antithrombotics/antiplatelets; Z88.8 Allergy status to other drugs, medicaments and biological substances; Z90.49 Acquired absence of other specified parts of digestive tract; Z95.5 Presence of coronary angioplasty implant and graft; Z90.89 Acquired absence of other organs; Z98.890 Other specified postprocedural states
CPT/HCPCS: 36410; 36415; 76937; 80048; 80053; 81001; 83605; 84484; 85025; 85027; 85610; 85730; 87040; 87070; 87077; 87186; 87205; 93005; 94640; 96365; 96367; 96375; 96376; 99285

== ENCOUNTER → 2020-10-30 | Outpatient (CLI) | payer MEDICARE ==
--- NOTE | 2020-10-31 09:56 | P.VSCSTY ---
Greater Saphenous Vein Mapping This is bilateral lower extremity greater saphenous vein mapping. Date of service: 10/30/2020 Vein quality and ultrasound appearance: We see no intraluminal thrombus. There appears to be a double system around the knee on both sides. In both cases the more posterior branch is most suitable for conduit. The right leg below the knee is probably too small for use.. Vein size groin right : 8.4 x 6.9 groin left: 2.7 x 2.3 High thigh right: 3.9 x 3.5 high thigh left: 7.6 x 7.5 Mid thigh right: 2.9 x 2.7 (posterior branch ) mid thigh left: 6.3 x 5.7 Above-knee right: 3.3 x 2.9 (posterior branch) above-knee left: 3.2 x 3.0 (posterior branch) Below knee right: 2.5 x 1.8 below-knee left: 3.5 x 2.7 Mid calf right: 2.0 x 1.3 mid calf left: To 0.2 x 2.0 Ankle right: 2.0 x 1.7 ankle left: 2.7 x 2.2 Impression: Usable bilateral greater saphenous vein. Duplicate system around the knee bilaterally with posterior branch being most suitable. Below the knee on the right probably too small for use as conduit..
== END | disposition home or self-care (01) ==
LOC: LABWHC1 07:49
PROVIDERS: ATTEND Thoracic Surgery (Cardiothoracic Vascular Surgery)
DX: I73.9 Peripheral vascular disease, unspecified (principal); Z88.8 Allergy status to other drugs, medicaments and biological substances
CPT/HCPCS: 93970

== ENCOUNTER → 2020-11-22 | Outpatient (CLI) | payer MEDICARE ==
[2020-11-22 10:24] LABS: HCT 37.5 % (34.0-46.0); HGB 12.1 gm/dL (11.4-16.0); MCH 32.5 pg (25.0-35.0); MCHC 32.3 g/dL (31.0-37.0); MCV 100.6 fL (80.0-100.0); Macrocytosis Slight; Mean Platelet Volume 8.9; Platelet Count 201 k/uL (150-450); RBC 3.72 m/uL (3.80-5.40); RDW 14.8 % (11.5-15.5); WBC 9.6 k/uL (3.8-10.6)
[2020-11-22 10:33] LABS: Partial Thromboplastin Time 23.7 sec (22.0-30.0); Prothrombin Time 10.9 sec (9.0-12.0)
[2020-11-22 10:40] LABS: Appearance,Urine Clear (Clear); Bilirubin,Urine Negative (Negative); Blood,Urine Negative (Negative); Color,Urine Yellow; Glucose,Urine (UA) Negative (Negative); Ketones,Urine Negative (Negative); Leukocyte Esterase,Urine Negative (Negative); Mucus,Urine Few /hpf; Nitrite,Urine Negative (Negative); PH, Urine 6.5 (5.0-8.0); Protein,Urine 1+ (Negative); RBC,Urine 1 /hpf (0-5); Squamous Epithelial Cell,Urine 1 /hpf (0-4); WBC,Urine 2 /hpf (0-5)
[2020-11-22 11:00] LABS: ALT 15 U/L (4-34); AST 20 U/L (14-36); African American GFR (CKD) >90 (>60 ml/min/1.73 sqM); Albumin 3.1 g/dL (3.5-5.0); Alkaline Phosphatase 94 U/L (38-126); Anion Gap 6 mmol/L; Blood Urea Nitrogen 24 mg/dL (7-17); Calcium 8.9 mg/dL (8.4-10.2); Carbon Dioxide 29 mmol/L (22-30); Chloride 107 mmol/L (98-107); Cholesterol 113 mg/dL (<200); Glucose 94 mg/dL (74-99); HDL Cholesterol 42 mg/dL (40-60); LDL Cholesterol,Calculated 53 mg/dL (0-99); Magnesium 1.7 mg/dL (1.6-2.3); Non-African American GFR(CKD) 87 (>60 ml/min/1.73 sqM); Sodium 142 mmol/L (137-145); Total Bilirubin 0.6 mg/dL (0.2-1.3); Triglycerides 89 mg/dL (<150)
--- NOTE | 2020-11-22 13:01 | ECHOF ---
Referral Reason:I25.84 CAD,COPD,Hyperlipdemia,HTN,U07.1, MEASUREMENTS -------- HEIGHT: 152.4 cm WEIGHT: 66.2 kg BP: 195/80 RVIDd: 2.2 cm (< 3.3) IVSd: 1.2 cm (0.6 - 1.1) LVIDd: 5.0 cm (3.9 - 5.3) LVPWd: 1.0 cm (0.6 - 1.1) IVSs: 1.5 cm LVIDs: 2.8 cm LVPWs: 1.3 cm LA Diam: 3.5 cm (2.7 - 3.8) LAESV Index (A-L): 32.49 ml/m Ao Diam: 2.9 cm (2.0 - 3.7) AV Cusp: 1.8 cm (1.5 - 2.6) MV EXCURSION: 13.189 mm (> 18.000) MV EF SLOPE: 25 mm/s (70 - 150) EPSS: 0.9 cm MV E Jonathan: 1.05 m/s MV DecT: 184 ms MV A Jonathan: 1.09 m/s MV E/A Ratio: 0.96 RAP: 15.00 mmHg RVSP: 54.69 mmHg FINDINGS -------- Sinus rhythm. This was a technically adequate study. The left ventricular size is normal. There is borderline concentric left ventricular hypertrophy. Overall left ventricular systolic function is mild-moderately impaired with, an EF between 40 - 45 % . Basal inferior LV wall motion is hypokinetic. Basal inferoseptal LV wall motion is hypokinetic . Mid inferior LV wall motion is hypokinetic. The right ventricle is normal in size. LA is midly dilated 29-33ml/m2. The right atrial size is normal. Interatrial and interventricular septum intact. There is mild aortic valve sclerosis. Mild mitral annular calcification present. Chtp-dg-ohmncoua mitral regurgitation is present. Mild tricuspid regurgitation present. There is moderate pulmonary hypertension. The pulmonic valve was not well visualized. There is no pulmonic regurgitation present. The aortic root size is normal. Normal inferior vena cava with less than 50% inspiratory collapse consistent with estimated right atr ial pressure of 15 mmHg. There is a small, generalized pericardial effusion present. CONCLUSIONS -------- 1. There is borderline concentric left ventricular hypertrophy. 2. Overall left ventricular systolic function is mild-moderately impaired with, an EF between 40 - 45 %. 3. Basal inferior LV wall motion is hypokinetic. 4. Basal inferoseptal LV wall motion is hypokinetic. 5. Mid inferior LV wall motion is hypokinetic. 6. LA is midly dilated 29-33ml/m2. 7. There is mild aortic valve sclerosis. 8. Mild mitral annular calcification present. 9. Vtha-hv-gdyonhlr mitral regurgitation is present. 10. Mild tricuspid regurgitation present. 11. There is moderate pulmonary hypertension. 12. Normal inferior vena cava with less than 50% inspiratory collapse consistent with estimated right atrial pressure of 15 mmHg. 13. There is a small, generalized pericardial effusion present. GEOSCIENCES ASSOCIATE PROFESSOR: Moriah Paul RDCS
--- NOTE | 2020-11-22 15:30 | XR ---
EXAMINATION TYPE: XR chest 2V DATE OF EXAM: 11/22/2020 COMPARISON: Chest x-ray 05/01/2010 HISTORY: Coronary artery disease, COPD, hypertension, preop TECHNIQUE: Frontal and lateral views of the chest are obtained. FINDINGS: Bibasilar increased attenuation obscures the hemidiaphragms. Heart is likely enlarged. The re is no evident pneumothorax. There is a spinal curvature. Aorta is dense. IMPRESSION: Probable basilar effusions and associated atelectasis versus edema or pneumonia. Cardiom egaly appearance may be accentuated by rotation.
[2020-11-22 22:04] LABS: Hepatitis A Antibody IgM Non-Reactive (Non-Reactive); Hepatitis B Core IgM Non-Reactive (Non-Reactive); Hepatitis B Surface Antigen Non-Reactive (Non-Reactive); Hepatitis C IgG Antibody Non-Reactive (Non-Reactive)
== END ==
LOC: LABPAT 08:35
PROVIDERS: ATTEND Thoracic Surgery (Cardiothoracic Vascular Surgery)
DX: Z01.818 Encounter for other preprocedural examination (principal); U07.1 COVID-19; J44.9 Chronic obstructive pulmonary disease, unspecified; I10 Essential (primary) hypertension; I25.10 Atherosclerotic heart disease of native coronary artery without angina pectoris; E78.5 Hyperlipidemia, unspecified; I73.9 Peripheral vascular disease, unspecified; G35 Multiple sclerosis; I21.09 ST elevation (STEMI) myocardial infarction involving other coronary artery of anterior wall; R94.31 Abnormal electrocardiogram [ECG] [EKG]; E13.9 Other specified diabetes mellitus without complications; R94.5 Abnormal results of liver function studies
CPT/HCPCS: 94150; 93306; 80061; 80053; 80074; 84443; 83735; 85027; 85610; 85730; 81001; 87070; 87086; 83036; 71046; 93005; 36415; U0003; C9803; U0005

== ENCOUNTER 2020-11-29 05:31 | Inpatient (IN) | payer MEDICARE ==
[~2020-11-29 05:31] MED LIST changes: +ALBUMIN HUMAN 25% 50 ML IV ONE; +ALBUMIN HUMAN 5% 500 ML IVPB ONE; +ASPIRIN 325 MG TAB PO ONE; -ASPIRIN 325 MG TAB PO PRN; +ATORVASTATIN 10 MG TAB PO ONE; +CALCIUM CHLORIDE 100 MG/ML 10 ML SYRINGE IV ONE; +CARDIOPLEGIC SOLN (K+ 16 MEQ/L 1,000 ML with SODIUM BICARB (1 MEQ/ML) 20 ML, LIDOCAINE ... PERFUSION ONE; +CHLORHEXIDINE GLUCONATE 15 ML CUP MUCOUS MEM ONE; +CLEVIDIPINE BUTYRATE 25 MG in EMPTY BAG 1 BAG IV ONE; +HEPARIN SODIUM 1,000 UN/ML (10ML VL) IV ONE; +HEPARIN SODIUM,PORCINE 5,000 UNIT in SODIUM CHLORIDE 0.9% 500 ML 500 ML IV ONE; +INSULIN REGULAR 100 UNIT in SODIUM CHLORIDE 0.9% 100 ML IV ONE; +LACTATED RINGERS 1,000 ML IV ONE; +MAGNESIUM SULFATE MG 500 MG/ML IV ONE; +MANNITOL 25% 12.5 GM/50 ML VIAL IV ONE; +METOPROLOL TARTRATE 12.5 MG TAB PO ONE; +NITROGLYCERIN SL TABS 0.4 MG TAB SUBLINGUAL ONE; +NITROGLYCERIN-D5W PMX 25 MG/250 ML BTL IV ONE; +NITROGLYCERIN-D5W PMX 50 MG in DEXTROSE/WATER 1 250ML.BAG IV ONE; +NOREPINEPHRINE 4 MG in SODIUM CHLORIDE 0.9% 250 ML IV ONE; +PAPAVERINE 360 MG in SODIUM CHLORIDE 0.9% 90 ML IV ONE; +PHENYLEPHRINE 10 MG/ML VIAL IV ONE; +PHENYLEPHRINE 40 MG in SODIUM CHLORIDE 0.9% 250 ML IV ONE; +PROTAMINE SULFATE 10 MG/ML 25 ML VIAL IV ONE; +PROTAMINE SULFATE 250 MG in EMPTY BAG 1 BAG IV ONE; +SODIUM BICARB 8.4% 50 ML SYR (1 MEQ/ML) IV ONE; +SODIUM CHLORIDE 0.9% 1,000 ML IV ONE; +TRANEXAMIC ACID 2,000 MG in SODIUM CHLORIDE 0.9% 80 ML IV ONE; +ceFAZolin 1,000 MG in SODIUM CHLORIDE 0.9% IRRIGATIO 1,000 ML IRRIGATION ONE; +propofoL 1,000 MG/100 ML VIAL IV ONE
[2020-11-29 06:30] LABS: Glucose,Whole Blood 88 mg/dL (75-99)
[2020-11-29] MEDS ORDERED: TRANEXAMIC ACID 1,000 MG/10 ML VIAL ONE (07:59)
[2020-11-29] MEDS ORDERED: SODIUM CHLORIDE 0.9% 250 ML BAG ONE (07:59)
[2020-11-29] MEDS ORDERED: MIDAZOLAM 2 MG/2 ML VIAL ONE (07:59)
[2020-11-29] MEDS ORDERED: HEPARIN SODIUM,PORCINE 10,000 UNIT/ML 1 ML VIAL ONE (07:59)
[2020-11-29] MEDS ORDERED: ALBUMIN HUMAN 5% (25gm) 500 ML VIAL IVPB ONE (07:59)
[2020-11-29] MEDS ORDERED: fentaNYL (PF) 50 MCG/ML 50 ML VIAL ONE (07:59)
[2020-11-29] MEDS ORDERED: fentaNYL (PF) 50 MCG/ML 2 ML AMP ONE (07:59)
[2020-11-29] MEDS ORDERED: SODIUM CHLORIDE 0.9% IRRIG 1,000 ML BTL IRRIGATION ONE (07:59)
[2020-11-29] MEDS ORDERED: VECURONIUM 10 MG VIAL IV ONE (07:59)
[2020-11-29] MEDS ORDERED: PROPOFOL 10 MG/ML 20 ML VIAL IV ONE ×2 (07:59→20:50)
[2020-11-29 08:27] LABS: ABG Base Excess 1.8 mmol/L; ABG Glucose Whole Blood 113 mg/dL (75-99); ABG HCO3 26 mmol/L (21-25); ABG Hematocrit 34 % (34.0-46.0); ABG Ionized Calcium 4.7 mg/dL (4.5-5.3); ABG Lactic Acid Whole Blood 0.9 mmol/L (0.5-1.6); ABG PCO2 39 mmHg (35-45); ABG PH 7.44 (7.35-7.45); ABG PO2 405 mmHg (83-108); ABG Potassium Whole Blood 3.6 mmol/L (3.4-4.5); ABG Sodium Whole Blood 140 mmol/L (135-146); ABG TCO2 27 mmol/L (19-24)
[2020-11-29 11:28] LABS: ABG Glucose Whole Blood 107 mg/dL (75-99); ABG HCO3 27 mmol/L (21-25); ABG Hematocrit 31 % (34.0-46.0); ABG Ionized Calcium 4.6 mg/dL (4.5-5.3); ABG Lactic Acid Whole Blood 0.6 mmol/L (0.5-1.6); ABG Oxygen Saturation 99.4 % (94-97); ABG PCO2 41 mmHg (35-45); ABG PH 7.42 (7.35-7.45); ABG PO2 122 mmHg (83-108); ABG Potassium Whole Blood 3.9 mmol/L (3.4-4.5); ABG Sodium Whole Blood 139 mmol/L (135-146); ABG TCO2 28 mmol/L (19-24)
[2020-11-29 11:58] LABS: ABG Base Excess 1.1 mmol/L; ABG Glucose Whole Blood 110 mg/dL (75-99); ABG HCO3 27 mmol/L (21-25); ABG Hematocrit 31 % (34.0-46.0); ABG Ionized Calcium 4.6 mg/dL (4.5-5.3); ABG Lactic Acid Whole Blood 0.5 mmol/L (0.5-1.6); ABG Oxygen Saturation 99.4 % (94-97); ABG PCO2 46 mmHg (35-45); ABG PH 7.37 (7.35-7.45); ABG PO2 125 mmHg (83-108); ABG Potassium Whole Blood 4.9 mmol/L (3.4-4.5); ABG Sodium Whole Blood 139 mmol/L (135-146); ABG TCO2 28 mmol/L (19-24)
[2020-11-29 12:30] LABS: ABG Base Excess 0.6 mmol/L; ABG Glucose Whole Blood 110 mg/dL (75-99); ABG HCO3 26 mmol/L (21-25); ABG Hematocrit 32 % (34.0-46.0); ABG Ionized Calcium 4.6 mg/dL (4.5-5.3); ABG Lactic Acid Whole Blood 0.7 mmol/L (0.5-1.6); ABG Oxygen Saturation 99.3 % (94-97); ABG PCO2 45 mmHg (35-45); ABG PH 7.37 (7.35-7.45); ABG PO2 133 mmHg (83-108); ABG Potassium Whole Blood 4.3 mmol/L (3.4-4.5); ABG Sodium Whole Blood 139 mmol/L (135-146); ABG TCO2 28 mmol/L (19-24)
[2020-11-29 13:04] LABS: ABG Base Excess -0.9 mmol/L; ABG Glucose Whole Blood 106 mg/dL (75-99); ABG HCO3 24 mmol/L (21-25); ABG Hematocrit 31 % (34.0-46.0); ABG Ionized Calcium 4.5 mg/dL (4.5-5.3); ABG Lactic Acid Whole Blood 0.7 mmol/L (0.5-1.6); ABG Oxygen Saturation 99.8 % (94-97); ABG PCO2 42 mmHg (35-45); ABG PH 7.37 (7.35-7.45); ABG PO2 156 mmHg (83-108); ABG Potassium Whole Blood 4.2 mmol/L (3.4-4.5); ABG Sodium Whole Blood 140 mmol/L (135-146); ABG TCO2 26 mmol/L (19-24)
[2020-11-29 13:51] LABS: ABG Base Excess -1.2 mmol/L; ABG Glucose Whole Blood 110 mg/dL (75-99); ABG HCO3 25 mmol/L (21-25); ABG Hematocrit 31 % (34.0-46.0); ABG Ionized Calcium 4.5 mg/dL (4.5-5.3); ABG Lactic Acid Whole Blood 0.7 mmol/L (0.5-1.6); ABG PCO2 46 mmHg (35-45); ABG PH 7.34 (7.35-7.45); ABG PO2 81 mmHg (83-108); ABG Potassium Whole Blood 3.9 mmol/L (3.4-4.5); ABG Sodium Whole Blood 140 mmol/L (135-146); ABG TCO2 26 mmol/L (19-24)
--- NOTE | 2020-11-29 14:19 | P.OP ---
Date of Procedure: 11/29/20 Preoperative Diagnosis: Coronary arteriosclerosis Postoperative Diagnosis: Same Procedure(s) Performed: CABG 3 with free BAUTISTA to LAD, saphenous vein graft to OM, saphenous vein graft to PDA with endovascular vein harvest and ligation of the left atrial appendage with a 40 mm AtriCure clip Implants: 40 mm AtriCure clip Anesthesia: SHANNON Surgeon: Johnson Hargrove Estimated Blood Loss (ml): 200 IV fluids (ml): 2,000 Urine output (ml): 300 Pathology: none sent Condition: stable Disposition: ICU Indications for Procedure: 75-year-old female with severe peripheral vascular disease and severe coronary artery disease. She had initially presented last fall but at that time was felt to be too sick to undergo coronary surgery twos undergone rehab and has also undergone lower extremity revascularization in order to heal a severely infected foot. At this time she is functional and was felt to be reasonable although still high risk candidate for bypass surgery. Operative Findings: There were bilateral serous pleural effusions as well as a significant pericardial sutures of fluid effusion. Tissues themselves were fairly edematous. Coronary targets were diffusely diseased but soft spots were identified for grafting. On preparing the BAUTISTA the flow was very poor. It was probed with a 1.5 mm probe and noted to have a tight calcific stenosis in the midportion of the BAUTISTA. It was taken free and the proximal portion used after excising the stenotic region. Description of Procedure: Patient was brought to the operating room, placed supine on the operating table, anesthetized and intubated. [place]-Richar catheter was placed through the right internal jugular approach. Tadeo and nasogastric tubes were placed. SOFIYA probe was placed. Saphenous vein was harvested from the right lower extremity from just below the knee to the groin. It was of reasonable quality. It did bifurcate in the groin but both pieces were harvested and ultimately were used. The lower leg vein was smaller. Simultaneous sternotomy was performed a left hemisternum retracted upwards. The internal mammary artery was harvested on a vascularized pedicle left intact on its origin from the subclavian and divided distally. It was a good-sized conduit. Once the vein was prepared and [place], standard sternal retractor was placed and pericardium was opened in the midline. Targets were identified. The lengths of the required vein grafts were measured and appropriate pieces of vein were identified. These were loaded onto passport anastomotic connectors and connected to the ascending aorta following systemic heparinization. The best piece of vein was used for the obtuse marginal and was attached to the mid ascending aorta to the left of midline. Second best piece of vein was attached to the anterior aorta just above the sinotubular junction. Both grafts flowed well and but flow was controlled with bulldog clamps. The end of the BAUTISTA was now prepared. Flow at the end of the BAUTISTA was very disappointing. A 1.5 mm probe was placed within the lumen of the BAUTISTA and run proximally and stopped about retirement up the BAUTISTA. This area was explored and a calcific plaque was noted. BAUTISTA was now ligated proximally and its takeoff from the subclavian and divided. 1.5 mm probe was placed into the proximal end of the BAUTISTA and run distally and came to the same site. This area was then excised. The longer piece was the proximal piece and it was decided to use this for the BAUTISTA to the LAD. It was not long enough to reach the ascending aorta but was or than adequate length to reach the saphenous vein graft to the obtuse marginal. The mid LAD was now stabilized and explored. Soft spot was identified. The LAD was opened here was 1.75-2 mm vessel. Blood flow was controlled 1.5 mm flow through. Anastomosis of the BAUTISTA to the LAD was performed with running 8-0 Prolene suture. On completion anastomosis the flow through was removed effectively probing the proximal distal portion anastomosis. Suture was tied with good result and hemostasis and excellent backbleeding was noted out the end of the free BAUTISTA controlled with a bulldog clamp. Bulldog clamps were now placed proximally and distally on the saphenous vein graft to the obtuse marginal and it was opened longitudinally. Proximal anastomosis was constructed with running 7-0 Prolene suture. On completion of the proximal anastomosis it was de-aired by backbleeding suture was tied and the inflow was open to the BAUTISTA to the LAD. Good hemostasis was noted. The end of the BAUITSTA was tacked surrounding epicardium with 6-0 silk. 40 mm AtriCure clip was placed at the base of the left atrial appendage. Next we exposed the PDA. This was a 1.5-1.75 mm vessel with diffuse disease present. It was opened fairly proximally and blood flow control the 1.5 mm flow through. Saphenous vein was anastomosed in an inside fashion with running 7-0 Prolene suture. On completion anastomosis flow through was removed 50 probe the proximal distal portion anastomosis suture was tied with good result and hemostasis and the inflow open. Good hemostasis was again noted. The vein was of excellent lengths. Next the lateral wall the heart was exposed the major marginal branch was stabilized.'s was a diffusely diseased vessel. It was opened in its midportion where it was a 2 mm vessel and had a soft wall. Blood flow was controlled 1.5 mm flow through. Saphenous vein was anastomosed in end-to-side fashion with running 7-0 Prolene suture. Completion of the anastomosis the flow through was removed 50 probe the proximal portion anastomosis. Suture was tied with good result and hemostasis and the inflow was open. Good hemostasis was again noted. The vein was more than adequate length well. Heart was lowered into anatomic position. Heparin was reversed with protamine. Good hemostasis obtained throughout. Bilateral pleural spaces were drained with 32-Serbian chest tubes. Bilateral serous pleural effusions were encountered. The mediastinum was drained with a 36- Serbian chest tube. After assuring good hemostasis the sternum was closed with 6 Mersilene band's. Fascia was closed with 0 Ethibond. Subcutaneous and subcuticular layers with layers of Vicryl suture both the leg and chest. Dry sterile dressings were applied the patient was transferred to the ICU in stable condition.
[2020-11-29] MEDS: CLEVIDIPINE BUTYRATE 25 MG in EMPTY BAG 1 BAG IV SCH ×2 (14:30→17:37)
[2020-11-29] MEDS ORDERED: METOCLOPRAMIDE 5 MG/ML 2 ML VIAL IVP PRN (14:43)
[2020-11-29] MEDS ORDERED: Magnesium Replacement Protocol 1 EACH MISC MISCELLANE PRN (14:43)
[2020-11-29] MEDS ORDERED: ONDANSETRON 4 MG/2 ML VIAL IVP PRN (14:43)
[2020-11-29] MEDS ORDERED: Phosphorus Replacement Protoco 1 EACH MISC MISCELLANE PRN (14:43)
[2020-11-29] MEDS ORDERED: Potassium Replacement Protocol 1 EACH MISC MISCELLANE PRN (14:43)
[2020-11-29] MEDS ORDERED: DEXTROSE 5% IN WATER 100 ML with AMIODARONE 150 MG IV PRN (14:43)
[2020-11-29] MEDS ORDERED: AMIODARONE 450 MG in DEXTROSE 5% IN WATER 250 ML IV PRN ×2 (14:43)
[2020-11-29] MEDS ORDERED: IPRATROPIUM-ALBUTEROL 3 ML NEB INHALATION PRN (14:43)
[2020-11-29] MEDS ORDERED: ALBUMIN HUMAN 5% 250 ML in EMPTY BAG 1 BAG IVPB PRN (14:43)
[2020-11-29] MEDS ORDERED: DEXMEDETOMIDINE/0.9% NACL(PMX) 400 MCG in EMPTY BAG 1 BAG IV SCH (14:43)
[2020-11-29] MEDS ORDERED: AMIODARONE 360 MG in DEXTROSE 5% IN WATER 200 ML IV PRN ×2 (14:43)
[2020-11-29] MEDS ORDERED: BENZOCAINE/MENTHOL LOZENG 1 EACH LOZENGE MUCOUS MEM PRN (14:43)
[2020-11-29] MEDS ORDERED: CALCIUM GLUCONATE 2 GM in SODIUM CHLORIDE 0.9% 100 ML IVPB PRN (14:43)
[2020-11-29] MEDS ORDERED: NITROGLYCERIN-D5W PMX 50 MG in DEXTROSE/WATER 1 250ML.BAG IV SCH (14:43)
[2020-11-29] MEDS ORDERED: hydrALAZINE HCL 20 MG/ML 1 ML VIAL IVP PRN (14:43)
[2020-11-29] MEDS ORDERED: INSULIN REGULAR 100 UNIT in SODIUM CHLORIDE 0.9% 100 ML IV SCH (14:43)
[2020-11-29 14:45] LABS: Glucose,Whole Blood 97 mg/dL (75-99)
[2020-11-29 14:59] LABS: Basophils % (A) 0 %; Eosinophils # (A) 0.2 k/uL (0-0.7); Eosinophils % (A) 2 %; HCT 35.7 % (34.0-46.0); HGB 11.6 gm/dL (11.4-16.0); Hypochromasia Slight; Lymphocytes # (A) 2.3 k/uL (1.0-4.8); Lymphocytes % (A) 24 %; MCH 32.4 pg (25.0-35.0); MCHC 32.5 g/dL (31.0-37.0); MCV 99.6 fL (80.0-100.0); Macrocytosis Slight; Mean Platelet Volume 8.7; Monocytes # (A) 0.2 k/uL (0-1.0); Monocytes % (A) 2 %; Neutrophils # (A) 6.7 k/uL (1.3-7.7); Neutrophils % (A) 71 %; Platelet Count 171 k/uL (150-450); RBC 3.58 m/uL (3.80-5.40); RDW 14.5 % (11.5-15.5); WBC 9.4 k/uL (3.8-10.6)
[2020-11-29 15:09] LABS: INR 1.2 (<1.2); Partial Thromboplastin Time 27.3 sec (22.0-30.0); Prothrombin Time 12.7 sec (9.0-12.0)
[2020-11-29 15:10] LABS: ABG Base Excess -1.7 mmol/L; ABG HCO3 23 mmol/L (21-25); ABG PCO2 38 mmHg (35-45); ABG PH 7.39 (7.35-7.45); ABG PO2 310 mmHg (83-108); ABG TCO2 24 mmol/L (19-24); Allen Test Performed? Yes
[2020-11-29 15:12] LABS: Glucose,Whole Blood 117 mg/dL (75-99)
[2020-11-29 15:13] LABS: Ionized Calcium 4.6 mg/dL (4.5-5.3)
[2020-11-29 15:31] LABS: ALT 11 U/L (4-34); AST 19 U/L (14-36); African American GFR (CKD) >90 (>60 ml/min/1.73 sqM); Alkaline Phosphatase 51 U/L (38-126); Anion Gap 4 mmol/L; Blood Urea Nitrogen 15 mg/dL (7-17); Calcium 8.3 mg/dL (8.4-10.2); Carbon Dioxide 26 mmol/L (22-30); Chloride 108 mmol/L (98-107); Glucose 100 mg/dL (74-99); Magnesium 1.4 mg/dL (1.6-2.3); Non-African American GFR(CKD) >90 (>60 ml/min/1.73 sqM); Potassium 4.1 mmol/L (3.5-5.1); Sodium 138 mmol/L (137-145); Total Bilirubin 0.6 mg/dL (0.2-1.3)
--- NOTE | 2020-11-29 15:33 | XR ---
EXAMINATION TYPE: XR chest 1V portable DATE OF EXAM: 11/29/2020 COMPARISON: 11/22/2020 INDICATION: Postop cardiac surgery TECHNIQUE: Single frontal view of the chest is obtained. FINDINGS: The heart size is mildly prominent. The pulmonary vasculature is normal. Diffuse increased lung markings are present slightly greater on the left. Endotracheal tube tip is above the bright. Nasogastric tube transverses the thorax with the tip in th e proximal left upper quadrant. This could be advanced for more typical positioning. Mediastinal tube is present. Bilateral chest tubes are present. No pneumothorax is evident. [place]-Richar catheter is pre sent with the tip in the main pulmonary artery region. IMPRESSION: 1. Mild diffuse increased lung markings are nonspecific. Correlate for volume overload. 2. Multiple lines and catheters discussed above.
--- NOTE | 2020-11-29 15:50 | P.CNPUL ---
History of Present Illness Consult date: 11/29/20 Chief complaint: Thoracotomy, coronary bypass surgery History of present illness: 75-year-old female patient is being seen in intensive care unit following coronary artery bypass surgery. This was an off pump bypass with CABG 3 with BAUTISTA to LAD, SVG to she is marginal, PDA and left atrial appendage clipping. The patient is currently in the intensive care unit intubated on mechanical ventilator. The patient arrived sedated on propofol. Initially she was on assist control of 14 and the rate was increased up to 22 and she remains on a ti estee volume of 350 with an FiO2 100% and PEEP of 5. Her blood gases are showing a pH of 7.39 with a pCO2 of 38 and pO2 of 310. The patient had a chest x-ray that showed adequate positioning of the ET tube, [place] catheter and the right pleural and left pleural and mediastinal chest tube. The patient as well expanded lungs. No evidence of any pneumothorax. At this point in time, the patient's cardiac output is at 4.3 with an index of 2.7. She has hypertensive and she is on side effects and 4 mg/h. Producing adequate amount of urine output. Chest tube outputs are minimal at this point with a left pleural chest tube draining 60, mediastinal draining 10 and right pleural draining 90 mL of bloody effusion. The patient's has adequate pulses in all 4 extremities. Arterial line was established in the left upper extremity. Hemoglobin 11.6. Creatinine is 0.4 with a mean of 15. Current cardiac rhythm is sinus. She is hypothermic and she is receiving external warming for a temperature of 95.4. Pulmonary artery pressures are 46/21. Review of Systems ROS unobtainable: due to endotracheal tube Past Medical History Past Medical History: Coronary Artery Disease (CAD), COPD, Hyperlipidemia, Hypertension, Neurologic Disorder, Osteoarthritis (OA), Skin Disorder, Sleep Apnea/CPAP/BIPAP, Vascular Disorder Additional Past Medical History / Comment(s): mild redness with swelling to joya lower extremities-firm to touch,hx "leaky mitral valve", wound left leg/foot/toes-multiple areas-healed was seen in wound center, [place], occasional use of oxygen for sleep apnea @ 2.5L [place], doesn't use CPAP History of Any Multi-Drug Resistant Organisms: None Reported Past Surgical History: Appendectomy, Breast Surgery, Heart Catheterization, He art Catheterization With Stent, Tonsillectomy Additional Past Surgical History / Comment(s): joya benign breast biopsy, atherectomy of left common femoral artery,stenting of rt and lt external iliac arteries,stent left SFA,balloon angioplasty of left popliteal artery,angiogram. Past Anesthesia/Blood Transfusion Reactions: No Reported Reaction, Motion Sickness Additional Past Anesthesia/Blood Transfusion Reaction / Comment(s): no hx blood transfusion Date of Last Stent Placement:: 2009 Smoking Status: Former smoker - Past Family History Father Family Medical History: No Reported History Mother Family Medical History: Cancer Additional Family Medical History / Comment(s): breast and brain Medications and Allergies Home Medications Medication Instructions Recorded Confirmed Type Aspirin [Adult Low Dose Aspirin EC] 81 mg PO DAILY 05/09/20 11/23/20 History Isosorbide Mononitrate ER [Imdur] 30 mg PO DAILY 05/09/20 11/23/20 History Atorvastatin [Lipitor] 80 mg PO HS 08/02/20 11/23/20 History Losartan [Cozaar] 25 mg PO DAILY 08/02/20 11/23/20 History Metoprolol Succinate [Toprol XL] 25 mg PO DAILY 08/02/20 11/23/20 History Ranolazine [Ranexa] 500 mg PO BID 08/02/20 11/23/20 History Furosemide [Lasix] 20 mg PO BID 08/09/20 11/23/20 History Clopidogrel Bisulfate [Plavix] 75 mg PO DAILY #90 tab 08/16/20 11/23/20 Rx Mupirocin 2% Oint [Bactroban 2% 1 applic NASAL BID #1 tube 11/22/20 11/23/20 Rx Oint] Albuterol Inhaler [Ventolin Hfa 1 puff INHALATION RT-QID PRN 11/23/20 11/23/20 History Inhaler] Fluticasone/Umeclidin/Vilanter 1 inhalation INHALATION DAILY 11/23/20 11/23/20 History [Trelegy Ellipta 100-62.5-25] ALPRAZolam [Xanax] 0.25 mg PO DAILY PRN 11/28/20 11/28/20 History Allergies Allergy/AdvReac Type Severity Reaction Status Date / Time sumatriptan [From Imitrex] Allergy Chest Pain Verified 11/23/20 15:00 Physical Exam Vitals: Vital Signs Temp Pulse Pulse Resp BP BP BP 11/29/20 15:30 62 22 11/29/20 15:00 95.4 F L 72 22 120/55 11/29/20 14:50 64 22 122/59 11/29/20 14:40 95.2 F L 65 22 125/61 11/29/20 14:31 73 26 H 11/29/20 06:20 97.6 F 69 20 161/75 173/72 11/29/20 06:00 74 20 205/89 212/91 Pulse Ox 11/29/20 15:30 100 11/29/20 15:00 95 11/29/20 14:50 99 11/29/20 14:40 95 11/29/20 14:31 11/29/20 06:20 93 L 11/29/20 06:00 Intake and Output 11/29/20 11/29/20 11/29/20 06:59 14:59 22:59 Intake Total 50 142 59 Output Total 1540 150 Balance 50 -1398 -91 Intake: IV 50 92 9 0.9 CO/CI 30 0.9 flush 9 9 Intake, IV Titration 50 50 Amount Lactated Ringers 1,000 ml 50 50 @ 50 mls/hr IV .Q20H [facility] Rx#:[id number] Output: Chest Tube Drainage 165 60 Chest Tube Left 65 30 Chest Tube Mediastinal 10 20 Chest Tube Right 90 10 Urine 625 90 Estimated Blood Loss 750 Other: Weight 63.3 kg ABP, PAP, CO, CI - Last 8 Hours Arterial Blood Pressure 119/43 Arterial Blood Pressure 116/48 Arterial Blood Pressure 143/52 Pulmonary Artery Pressure 43/19 Pulmonary Artery Pressure 44/18 Pulmonary Artery Pressure 46/20 Pulmonary Artery Pressure 46/21 Cardiac Output 4.3 Cardiac Index 2.7 Patient is currently sedated and the patient is currently intubated on a mechanical ventilator., Comfortable and successful mechanical ventilator. Head exam was generally normal. There was no scleral icterus or corneal arcus. Mucous membranes were moist. Neck was supple and without jugular venous distension, thyromegaly, or carotid bruits. Carotids were easily palpable bilaterally. There was no adenopathy. The patient has a right IJ [place]Rich[place] catheter in place along with a Cordis. Orotracheal and orogastric tube are both in place. Lungs sounds are diminished bilaterally otherwise clear. Surgical wound site over the anterior chest area is dry clean and intact. The patient has a right pleural, left pleural and mediastinal chest tube. Cardiac exam revealed the PMI to be normally situated and sized. The rhythm was regular and no extrasystoles were noted during several minutes of auscultation. The first and second heart sounds were normal and physiologic splitting of the second heart sound was noted. There were no murmurs, rubs, clicks, or gallops. Abdominal exam revealed normal bowel sounds. The abdomen was soft, non-tender, and without masses, organomegaly, or appreciable enlargement of the abdominal aorta. Extremities are showing diminished pulses. There is no cyanosis or clubbing. There is some mottling in the left thigh. Patient is known to have chronic vascular disease and lower extremities and the pulses are obviously diminished in all 4 extremities. Neurologically the patient is sedated and she is calm and comfortable. Pupils are equal and reactive to light. Psychiatric evaluation cannot be done. Examination of the skin revealed no evidence of significant rashes, suspicious appearing nevi or other concerning lesions. Results - Laboratory Findings CBC and BMP: 11/29/20 14:45 11/29/20 14:45 ABG ABG pH 7.39 (7.35-7.45) 11/29/20 15:06 ABG pCO2 38 mmHg (35-45) 11/29/20 15:06 ABG pO2 310 mmHg (83-108) H 11/29/20 15:06 ABG O2 Saturation 100.0 % (94-97) H 11/29/20 15:06 PT/INR, D-dimer PT 12.7 sec (9.0-12.0) H 11/29/20 14:45 INR 1.2 (<1.2) H 11/29/20 14:45 Abnormal lab findings: Abnormal Labs 11/22/20 11/29/20 11/29/20 09:00 08:28 11:28 RBC PT INR ABG pH ABG pCO2 ABG pO2 405 H 122 H ABG HCO3 26 H 27 H ABG Total CO2 27 H 28 H ABG O2 Saturation 100.0 H 99.4 H ABG Hematocrit 31 L ABG Potassium ABG Glucose 113 H 107 H Hemoglobin 11.1 L 10.1 L Chloride Creatinine Glucose POC Glucose (mg/dL) Calcium Magnesium Total Protein Albumin Arterial Blood Potassium Arterial Blood Glucose 113 H 107 H Crossmatch See Detail 11/29/20 11/29/20 11/29/20 11:59 12:31 13:06 RBC PT INR ABG pH ABG pCO2 46 H ABG pO2 125 H 133 H 156 H ABG HCO3 27 H 26 H ABG Total CO2 28 H 28 H 26 H ABG O2 Saturation 99.4 H 99.3 H 99.8 H ABG Hematocrit 31 L 32 L 31 L ABG Potassium 4.9 H ABG Glucose 110 H 110 H 106 H Hemoglobin 10.2 L 10.5 L 10.2 L Chloride Creatinine Glucose POC Glucose (mg/dL) Calcium Magnesium Total Protein Albumin Arterial Blood Potassium 4.9 H Arterial Blood Glucose 110 H 110 H 106 H Crossmatch 11/29/20 11/29/20 11/29/20 13:52 14:45 14:45 RBC 3.58 L PT 12.7 H INR 1.2 H ABG pH 7.34 L ABG pCO2 46 H ABG pO2 81 L ABG HCO3 ABG Total CO2 26 H ABG O2 Saturation ABG Hematocrit 31 L ABG Potassium ABG Glucose 110 H Hemoglobin 10.3 L Chloride Creatinine Glucose POC Glucose (mg/dL) Calcium Magnesium Total Protein Albumin Arterial Blood Potassium Arterial Blood Glucose 110 H Crossmatch 11/29/20 11/29/20 11/29/20 14:45 15:06 15:08 RBC PT INR ABG pH ABG pCO2 ABG pO2 310 H ABG HCO3 ABG Total CO2 ABG O2 Saturation 100.0 H ABG Hematocrit ABG Potassium ABG Glucose Hemoglobin Chloride 108 H Creatinine 0.49 L Glucose 100 H POC Glucose (mg/dL) 117 H Calcium 8.3 L Magnesium 1.4 L Total Protein 5.0 L Albumin 3.0 L Arterial Blood Potassium Arterial Blood Glucose Crossmatch - Diagnostic Findings Chest x-ray: image reviewed Assessment and Plan Plan: 1 symptomatic coronary artery disease, multivessel and the patient underwent three-vessel bypass surgery, off pump, currently postop day #0. The patient is currently hemodynamically stable. Hemodynamic parameters including pulmonary artery pressure, cardiac output and index I will appropriate. She is slightly hypertensive and the patient is currently on clevidipine drip for blood pressure control. Producing adequate urine output. Currently sedated on propofol. Cardiac rhythm is sinus. 2 post thoracotomy, the patient currently is intubated on a mechanical ventilator and the patient has right pleural, left pleural and mediastinal chest tube. Chest x-ray was noted. Blood gases was noted. Output from the chest tubes are minimal at this point in time. 3 severe peripheral vascular disease, post bilateral iliac artery stenting and the patient has undergone previous left superficial femoral artery atherectomy , angioplasty and stenting. 4 hypertension currently on Cleviprex for blood pressure control currently running at 4 mg an hour 5 hyperlipidemia 6 history of smoking 7 COPD 8 obstructive sleep apnea without CPAP therapy on outpatient basis 9 history of multiple sclerosis 10 history of recurrent cellulitis of the lower extremity and the patient has had previous nonhealing wounds, none for now. Plan Continue vent support Drop the FiO2 to maintain a saturation above 90% Keep sedation for now Monitor hemodynamics Continue Cleviprex drip for blood pressure control Monitor upper from the chest tubes Chest x-ray was reviewed Blood gases was reviewed Hemodynamically stable and should be able to extubate within the next 4-6 hours. We'll continue to follow
[2020-11-29] MEDS ORDERED: IPRATROPIUM-ALBUTEROL 3 ML NEB INHALATION SCH (16:00)
[2020-11-29 16:09] LABS: Glucose,Whole Blood 71 mg/dL (75-99)
[2020-11-29 16:16] LABS: Glucose,Whole Blood 128 mg/dL (75-99)
[2020-11-29] MEDS: LACTATED RINGERS 1,000 ML IV SCH (16:33)
[2020-11-29] MEDS: MAGNESIUM SULFATE-D5W PMX 1 GM in DEXTROSE/WATER 1 100ML.BAG IVPB SCH ×2 (16:43→17:49)
[2020-11-29] MEDS: HEPARIN SODIUM,PORCINE/PF 5,000 UNIT/0.5 ML SYRINGE SQ SCH ×2 (16:43→23:36)
[2020-11-29 17:07] LABS: Glucose,Whole Blood 99 mg/dL (75-99)
[2020-11-29 17:16] LABS: ABG Base Excess -4.1 mmol/L; ABG HCO3 23 mmol/L (21-25); ABG Oxygen Saturation 94.2 % (94-97); ABG PCO2 56 mmHg (35-45); ABG PH 7.23 (7.35-7.45); ABG PO2 85 mmHg (83-108); ABG TCO2 25 mmol/L (19-24); Allen Test Performed? Yes
[2020-11-29] MEDS: ACETAMINOPHEN IV (For NPO) 1,000 MG in EMPTY BAG 1 BAG IVPB SCH ×2 (17:50→23:36)
[2020-11-29] MEDS: KETOROLAC 15 MG/ML 1 ML VIAL IVP SCH ×2 (17:59→23:36)
[2020-11-29 18:07] LABS: Glucose,Whole Blood 139 mg/dL (75-99)
[2020-11-29 18:55] LABS: Glucose,Whole Blood 167 mg/dL (75-99)
[2020-11-29] MEDS: IPRATROPIUM-ALBUTEROL 3 ML NEB INHALATION SCH (19:32)
[2020-11-29 19:52] LABS: Glucose,Whole Blood 151 mg/dL (75-99)
[2020-11-29 20:20] LABS: ABG Base Excess -5.2 mmol/L; ABG HCO3 25 mmol/L (21-25); ABG Oxygen Saturation 80.6 % (94-97); ABG PO2 64 mmHg (83-108); ABG TCO2 28 mmol/L (19-24); Allen Test Performed? Yes
[2020-11-29 20:31] LABS: ABG PCO2 89 mmHg (35-45); ABG PH 7.06 (7.35-7.45)
[2020-11-29] MEDS ORDERED: SUCCINYLCHOLINE CHLORIDE VIAL 200 MG/10 ML VIAL IV ONE (20:50)
[2020-11-29] MEDS ORDERED: propofoL 100 ML IV ONE ×2 (20:51→21:03)
--- NOTE | 2020-11-29 21:08 | XR ---
EXAMINATION TYPE: XR chest 1V portable DATE OF EXAM: 11/29/2020 COMPARISON: 11/29/2020 HISTORY: Hypoxemia TECHNIQUE: FINDINGS: There is right jugular catheter with tip in the right pulmonary artery. There is pulmonary interstitial and airspace edema. There are bilateral chest tubes. There is small left apical pneumoth orax. Trachea is midline. There is some mild infiltrate and atelectasis at the lung bases. There is m ild pulmonary congestion. There is some large diameter tubing apparently in the thoracic aorta. IMPRESSION: Congestive heart failure. Small pleural effusions. Basilar pulmonary infiltrates. Chest o verall not significantly different than exam earlier today. There is a new small left apical pneumoth orax less than 5% compared to previous exam.
[2020-11-29 21:11] LABS: Glucose,Whole Blood 115 mg/dL (75-99)
--- NOTE | 2020-11-29 21:21 | XR ---
EXAMINATION TYPE: XR chest 1V portable DATE OF EXAM: 11/29/2020 COMPARISON: Today HISTORY: Hypoxemia TECHNIQUE: FINDINGS: Endotracheal tube is 4.5 cm from the bright. There is right jugular catheter with tip in th e main pulmonary artery. There is some infiltrate and atelectasis in both lower lobes. Heart is enlar ged. There is slight blunting of the costophrenic angles. There is bilateral chest tubes. No pneumoth orax. Large diameter drainage tube over the heart. No obvious pneumothorax. There are chest leads. IMPRESSION: Endotracheal tube in good position. Pulmonary congestion and pulmonary infiltrates slight ly improved compared to exam one hour ago.
[2020-11-29 21:42] LABS: ABG Base Excess -3.6 mmol/L; ABG HCO3 24 mmol/L (21-25); ABG Oxygen Saturation 99.2 % (94-97); ABG PCO2 54 mmHg (35-45); ABG PH 7.25 (7.35-7.45); ABG PO2 185 mmHg (83-108); ABG TCO2 25 mmol/L (19-24); Allen Test Performed? Yes
[2020-11-29 21:53] LABS: Basophils % (A) 0 %; Eosinophils % (A) 0 %; HCT 40.6 % (34.0-46.0); HGB 12.5 gm/dL (11.4-16.0); Hypochromasia Moderate; Lymphocytes # (A) 1.1 k/uL (1.0-4.8); Lymphocytes % (A) 7 %; MCH 31.8 pg (25.0-35.0); MCHC 30.9 g/dL (31.0-37.0); MCV 102.9 fL (80.0-100.0); Macrocytosis Slight; Mean Platelet Volume 9.6; Monocytes # (A) 0.7 k/uL (0-1.0); Monocytes % (A) 4 %; Neutrophils # (A) 13.5 k/uL (1.3-7.7); Neutrophils % (A) 88 %; Platelet Count 264 k/uL (150-450); RBC 3.95 m/uL (3.80-5.40); RDW 14.1 % (11.5-15.5); WBC 15.3 k/uL (3.8-10.6)
[2020-11-29 22:58] LABS: Glucose,Whole Blood 101 mg/dL (75-99)
[2020-11-29 23:07] LABS: ABG HCO3 21 mmol/L (21-25); ABG PCO2 29 mmHg (35-45); ABG PH 7.47 (7.35-7.45); ABG PO2 110 mmHg (83-108); ABG TCO2 22 mmol/L (19-24); Allen Test Performed? Yes
[2020-11-29] MEDS: ATORVASTATIN 80 MG TAB PO SCH (23:23)
[2020-11-30 02:36] LABS: Glucose,Whole Blood 126 mg/dL (75-99)
[2020-11-30 03:14] LABS: Glucose,Whole Blood 128 mg/dL (75-99)
[2020-11-30 03:28] LABS: Ionized Calcium 4.6 mg/dL (4.5-5.3)
[2020-11-30 03:38] LABS: Albumin 2.8 g/dL (3.5-5.0); Basophils % (A) 0 %; Calcium 8.4 mg/dL (8.4-10.2); Eosinophils % (A) 0 %; HCT 33.6 % (34.0-46.0); HGB 10.6 gm/dL (11.4-16.0); Lymphocytes # (A) 1.2 k/uL (1.0-4.8); Lymphocytes % (A) 12 %; MCH 30.9 pg (25.0-35.0); MCHC 31.5 g/dL (31.0-37.0); MCV 98.2 fL (80.0-100.0); Mean Platelet Volume 9.4; Monocytes # (A) 0.4 k/uL (0-1.0); Monocytes % (A) 4 %; Neutrophils # (A) 8.7 k/uL (1.3-7.7); Neutrophils % (A) 84 %; Platelet Count 165 k/uL (150-450); Potassium 3.7 mmol/L (3.5-5.1); RBC 3.42 m/uL (3.80-5.40); RDW 14.6 % (11.5-15.5); Total Bilirubin 0.7 mg/dL (0.2-1.3); Total Protein 4.7 g/dL (6.3-8.2); WBC 10.3 k/uL (3.8-10.6)
[2020-11-30 04:38] LABS: Glucose,Whole Blood 123 mg/dL (75-99)
[2020-11-30 05:44] LABS: ABG Base Excess -2.4 mmol/L; ABG HCO3 21 mmol/L (21-25); ABG Oxygen Saturation 99.8 % (94-97); ABG PCO2 26 mmHg (35-45); ABG PO2 139 mmHg (83-108); ABG TCO2 22 mmol/L (19-24); Allen Test Performed? Yes
[2020-11-30] MEDS: KETOROLAC 15 MG/ML 1 ML VIAL IVP SCH ×4 (05:44→23:51)
[2020-11-30] MEDS: POTASSIUM CHLORIDE 10 MEQ in WATER FOR INJECTION 1 100ML.BAG IVPB SCH ×2 (05:44→07:02)
[2020-11-30] MEDS: CLEVIDIPINE BUTYRATE 25 MG in EMPTY BAG 1 BAG IV SCH ×3 (05:54→15:52)
--- NOTE | 2020-11-30 06:00 | XR ---
EXAMINATION TYPE: XR chest 1V portable DATE OF EXAM: 11/30/2020 CLINICAL HISTORY: Difficulty breathing progress study. TECHNIQUE: Single AP portable upright view of the chest is obtained. COMPARISON: Chest x-ray from one day earlier pain and older studies. FINDINGS: Stable endotracheal and orogastric tubes. Persistent bilateral chest tubes and mediastinal drainage catheter. Stable right internal jugular [place]Rich[place] catheter. Mediastinal clips and left atri al appendage clip redemonstrated. Chronic parenchymal changes with bibasilar opacities. No visualized pneumothorax. Cardiac silhouette size is stable and mildly enlarged with atherosclerotic aorta. Underlying scoliotic curvature. IMPRESSION: Chronic changes and mild cardiomegaly with left greater than right bibasilar acute atelec tasis and/or infiltrate and likely small to tiny left greater than right pleural effusions. No pneumo thorax seen with bilateral chest tubes in place. No significant change from most recent x-ray.
[2020-11-30 06:07] LABS: Glucose,Whole Blood 121 mg/dL (75-99)
[2020-11-30 07:09] LABS: Glucose,Whole Blood 117 mg/dL (75-99)
--- NOTE | 2020-11-30 07:39 | P.PN ---
Subjective Progress Note Date: 11/30/20 11/30/2020, the patient remains intubated on a mechanical ventilator. She failed extubation yesterday and the patient had to be reintubated. Her weaning parameters once off sedation were adequate. Borderline. The patient was given a spontaneous breathing trial and following that she was extubated. Po stextubation, the patient hypoventilated. She developed respiratory acidosis pH became progressively more lethargic and there was a drop in mentation. The blood gases that was done at that time showed a component of an acute respiratory acidosis. At that point she was given a brief trial of BiPAP following that she was reintubated. This morning, she is on assist control of 22, tidal volume of 450, FiO2 of 40% with a PEEP of 5. Morning blood gases showed a pH of 7.5 with a pCO2 of 26 and pO2 of 139. The chest x-ray from today is showing some postsurgical changes. Chest tubes are all in good location. The patient has a right pleural, left pleural and mediastinal chest tube. ET tube is in a good location. She also has his Easton-Richar catheter in the right IJ. Cardiac index currently is at 2.6 with a cardiac output of 4.2. She is producing adequate amount of urine output. Pulses are diminished in all 4 extremities mentioned the legs, obtained by Doppler. Mediastinal chest tube output is in order of 300 mL since operation, left pleural chest tube is in order of 20 6 mL and right chest tube is in order 0.25 mL over the past 12 hours. Urine output is in order of 30 mL an hour. Currently the patient is back on propofol which is running at 25 mics per kilogram per minute. O vernight, recently she received volume and she received 5% albumin, 1. She is still on Catapres for blood pressure control which is still running at 4 mg/h. Her blood work today shows a hemoglobin of 10.6. White cell count is at 10.3. Platelet count is at 165. Electrolytes show a component of non-anion gap metabolic acidosis. Serum bicarbs at 17, sodium is at 135 and liver function tests are all within normal limits. She is arousable. She is following some simple commands. She is wiggling her toes and squeezing using her hands had tubes are equal and reactive to light. No facial asymmetry. Positive gag. Objective - Vital Signs Vital signs: Vital Signs Temp 99.5 F 11/30/20 04:00 Pulse 78 11/30/20 05:45 Resp 22 11/30/20 05:45 BP 112/57 11/30/20 05:45 Pulse Ox 100 11/30/20 05:45 Intake & Output 11/29/20 11/30/20 11/30/20 18:59 06:59 18:59 Intake Total 631.645 7749.228 186.298 Output Total 2055 948 23 Balance -1266.990 456.228 163.298 Weight 63.1 kg Intake: IV 158 1308 179 0.9 CO/CI 60 300 20 0.9 flush 45 108 9 Albumin Human 5% 250 ml 250 In Empty Bag 1 bag @ 250 mls/hr IVPB Q1HR PRN Rx#: [id number] Lactated Ringers 1,000 ml 550 50 @ 50 mls/hr IV .Q20H [facility] Rx#:[id number] Potassium Chloride 10 meq 100 100 In Water For Injection 1 100ml.bag @ 100 mls/hr IVPB Q1H [facility] Rx#: [id number] Intake, IV Titration 630.010 96.228 7.298 Amount ACETAMINOPHEN IV (For NPO 100 ) 1,000 mg In Empty Bag 1 bag @ 400 mls/hr IVPB Q6HR [facility] Rx#:[id number] Clevidipine Butyrate 25 24.933 32.267 5 mg In Empty Bag 1 bag @ 1 MG/HR 2 mls/hr IV .Q24H [facility] Rx#:[id number] Insulin Regular 100 unit 0.488 6.27 2.298 In Sodium Chloride 0.9% 100 ml @ Per Protocol IV .Q0M [facility] Rx#:[id number] Lactated Ringers 1,000 ml 250 50 @ 50 mls/hr IV .Q20H [facility] Rx#:[id number] Magnesium Sulfate-D5w Pmx 200 1 gm In Dextrose/Water 1 100ml.bag @ 100 mls/hr IVPB Q1H [facility] Rx#: [id number] ceFAZolin 2 gm In Sodium 50 Chloride 0.9% 50 ml @ 100 mls/hr IVPB Q8HR [facility] Rx# :[id number] propofoL 1,000 mg In 4.589 Empty Bag 1 bag @ Titrate IV .Q0M [facility] Rx#: [id number] propofoL 1,000 mg In 7.691 Empty Bag 1 bag @ Titrate IV .Q0M [facility] Rx#: [id number] Output: Chest Tube Drainage 375 537 0 Chest Tube Left 130 76 0 Chest Tube Mediastinal 80 201 0 Chest Tube Right 165 260 0 Urine 930 411 23 Estimated Blood Loss 750 Other: Voiding Method Indwelling Catheter Indwelling Catheter ABP, PAP, CO, CI - Last Documented Arterial Blood Pressure 131/53 Pulmonary Artery Pressure 37/19 Cardiac Output 4.4 Cardiac Index 2.8 - Exam Patient is currently sedated and the patient is currently intubated on a mechanical ventilator., Comfortable and successful mechanical ventilator. Head exam was generally normal. There was no scleral icterus or corneal arcus. Mucous membranes were moist. Neck was supple and without jugular venous distension, thyromegaly, or carotid bruits. Carotids were easily palpable bilaterally. There was no adenopathy. The patient has a right IJ Easton-Richar catheter in place along with a Cordis. Orotracheal and orogastric tube are both in place. Lungs sounds are diminished bilaterally otherwise clear. Surgical wound site over the anterior chest area is dry clean and intact. The patient has a right pleural, left pleural and mediastinal chest tube. Cardiac exam revealed the PMI to be normally situated and sized. The rhythm was regular and no extrasystoles were noted during several minutes of auscultation. The first and second heart sounds were normal and physiologic splitting of the second heart sound was noted. There were no murmurs, rubs, clicks, or gallops. Abdominal exam revealed normal bowel sounds. The abdomen was soft, non-tender, and without masses, organomegaly, or appreciable enlargement of the abdominal aorta. Extremities are showing diminished pulses. There is no cyanosis or clubbing. There is some mottling in the left thigh. Patient is known to have chronic vascular disease and lower extremities and the pulses are obviously diminished in all 4 extremities. Neurologically the patient is sedated and she is calm and comfortable. Pupils are equal and reactive to light. She is arousable. She is following simple commands. Psychiatric evaluation cannot be done. Examination of the skin revealed no evidence of significant rashes, suspicious appearing nevi or other concerning lesions. - Labs CBC & Chem 7: 11/30/20 03:10 11/30/20 03:10 Labs: Abnormal Lab Results - Last 24 Hours (Table) 11/22/20 11/29/20 11/29/20 Range/Units 09:00 08:28 11:28 WBC (3.8-10.6) k/uL RBC (3.80-5.40) m/uL Hgb (11.4-16.0) gm/dL Hct (34.0-46.0) % MCV (80.0-100.0) fL MCHC (31.0-37.0) g/dL Neutrophils # (1.3-7.7) k/uL PT (9.0-12.0) sec INR (<1.2) ABG pH (7.35-7.45) ABG pCO2 (35-45) mmHg ABG pO2 405 H 122 H (83-108) mmHg ABG HCO3 26 H 27 H (21-25) mmol/L ABG Total CO2 27 H 28 H (19-24) mmol/L ABG O2 Saturation 100.0 H 99.4 H (94-97) % ABG Hematocrit 31 L (34.0-46.0) % ABG Potassium (3.4-4.5) mmol/L ABG Glucose 113 H 107 H (75-99) mg/dL Hemoglobin 11.1 L 10.1 L (11.4-16.0) gm/dL Sodium (137-145) mmol/L Chloride (98-107) mmol/L Carbon Dioxide (22-30) mmol/L Creatinine (0.52-1.04) mg/dL Glucose (74-99) mg/dL POC Glucose (mg/dL) (75-99) mg/dL Calcium (8.4-10.2) mg/dL Magnesium (1.6-2.3) mg/dL Total Protein (6.3-8.2) g/dL Albumin (3.5-5.0) g/dL Arterial Blood Potassium (3.4-4.5) mmol/L Arterial Blood Glucose 113 H 107 H (75-99) mg/dL Crossmatch See Detail 11/29/20 11/29/20 11/29/20 Range/Units 11:59 12:31 13:06 WBC (3.8-10.6) k/uL RBC (3.80-5.40) m/uL Hgb (11.4-16.0) gm/dL Hct (34.0-46.0) % MCV (80.0-100.0) fL MCHC (31.0-37.0) g/dL Neutrophils # (1.3-7.7) k/uL PT (9.0-12.0) sec INR (<1.2) ABG pH (7.35-7.45) ABG pCO2 46 H (35-45) mmHg ABG pO2 125 H 133 H 156 H (83-108) mmHg ABG HCO3 27 H 26 H (21-25) mmol/L ABG Total CO2 28 H 28 H 26 H (19-24) mmol/L ABG O2 Saturation 99.4 H 99.3 H 99.8 H (94-97) % ABG Hematocrit 31 L 32 L 31 L (34.0-46.0) % ABG Potassium 4.9 H (3.4-4.5) mmol/L ABG Glucose 110 H 110 H 106 H (75-99) mg/dL Hemoglobin 10.2 L 10.5 L 10.2 L (11.4-16.0) gm/dL Sodium (137-145) mmol/L Chloride (98-107) mmol/L Carbon Dioxide (22-30) mmol/L Creatinine (0.52-1.04) mg/dL Glucose (74-99) mg/dL POC Glucose (mg/dL) (75-99) mg/dL Calcium (8.4-10.2) mg/dL Magnesium (1.6-2.3) mg/dL Total Protein (6.3-8.2) g/dL Albumin (3.5-5.0) g/dL Arterial Blood Potassium 4.9 H (3.4-4.5) mmol/L Arterial Blood Glucose 110 H 110 H 106 H (75-99) mg/dL Crossmatch 11/29/20 11/29/20 11/29/20 Range/Units 13:52 14:45 14:45 WBC (3.8-10.6) k/uL RBC 3.58 L (3.80-5.40) m/uL Hgb (11.4-16.0) gm/dL Hct (34.0-46.0) % MCV (80.0-100.0) fL MCHC (31.0-37.0) g/dL Neutrophils # (1.3-7.7) k/uL PT 12.7 H (9.0-12.0) sec INR 1.2 H (<1.2) ABG pH 7.34 L (7.35-7.45) ABG pCO2 46 H (35-45) mmHg ABG pO2 81 L (83-108) mmHg ABG HCO3 (21-25) mmol/L ABG Total CO2 26 H (19-24) mmol/L ABG O2 Saturation (94-97) % ABG Hematocrit 31 L (34.0-46.0) % ABG Potassium (3.4-4.5) mmol/L ABG Glucose 110 H (75-99) mg/dL Hemoglobin 10.3 L (11.4-16.0) gm/dL Sodium (137-145) mmol/L Chloride (98-107) mmol/L Carbon Dioxide (22-30) mmol/L Creatinine (0.52-1.04) mg/dL Glucose (74-99) mg/dL POC Glucose (mg/dL) (75-99) mg/dL Calcium (8.4-10.2) mg/dL Magnesium (1.6-2.3) mg/dL Total Protein (6.3-8.2) g/dL Albumin (3.5-5.0) g/dL Arterial Blood Potassium (3.4-4.5) mmol/L Arterial Blood Glucose 110 H (75-99) mg/dL Crossmatch 11/29/20 11/29/20 11/29/20 Range/Units 14:45 15:06 15:08 WBC (3.8-10.6) k/uL RBC (3.80-5.40) m/uL Hgb (11.4-16.0) gm/dL Hct (34.0-46.0) % MCV (80.0-100.0) fL MCHC (31.0-37.0) g/dL Neutrophils # (1.3-7.7) k/uL PT (9.0-12.0) sec INR (<1.2) ABG pH (7.35-7.45) ABG pCO2 (35-45) mmHg ABG pO2 310 H (83-108) mmHg ABG HCO3 (21-25) mmol/L ABG Total CO2 (19-24) mmol/L ABG O2 Saturation 100.0 H (94-97) % ABG Hematocrit (34.0-46.0) % ABG Potassium (3.4-4.5) mmol/L ABG Glucose (75-99) mg/dL Hemoglobin (11.4-16.0) gm/dL Sodium (137-145) mmol/L Chloride 108 H (98-107) mmol/L Carbon Dioxide (22-30) mmol/L Creatinine 0.49 L (0.52-1.04) mg/dL Glucose 100 H (74-99) mg/dL POC Glucose (mg/dL) 117 H (75-99) mg/dL Calcium 8.3 L (8.4-10.2) mg/dL Magnesium 1.4 L (1.6-2.3) mg/dL Total Protein 5.0 L (6.3-8.2) g/dL Albumin 3.0 L (3.5-5.0) g/dL Arterial Blood Potassium (3.4-4.5) mmol/L Arterial Blood Glucose (75-99) mg/dL Crossmatch 11/29/20 11/29/20 11/29/20 Range/Units 16:08 16:10 17:13 WBC (3.8-10.6) k/uL RBC (3.80-5.40) m/uL Hgb (11.4-16.0) gm/dL Hct (34.0-46.0) % MCV (80.0-100.0) fL MCHC (31.0-37.0) g/dL Neutrophils # (1.3-7.7) k/uL PT (9.0-12.0) sec INR (<1.2) ABG pH 7.23 L (7.35-7.45) ABG pCO2 56 H (35-45) mmHg ABG pO2 (83-108) mmHg ABG HCO3 (21-25) mmol/L ABG Total CO2 25 H (19-24) mmol/L ABG O2 Saturation (94-97) % ABG Hematocrit (34.0-46.0) % ABG Potassium (3.4-4.5) mmol/L ABG Glucose (75-99) mg/dL Hemoglobin (11.4-16.0) gm/dL Sodium (137-145) mmol/L Chloride (98-107) mmol/L Carbon Dioxide (22-30) mmol/L Creatinine (0.52-1.04) mg/dL Glucose (74-99) mg/dL POC Glucose (mg/dL) 71 L 128 H (75-99) mg/dL Calcium (8.4-10.2) mg/dL Magnesium (1.6-2.3) mg/dL Total Protein (6.3-8.2) g/dL Albumin (3.5-5.0) g/dL Arterial Blood Potassium (3.4-4.5) mmol/L Arterial Blood Glucose (75-99) mg/dL Crossmatch 11/29/20 11/29/20 11/29/20 Range/Units 18:05 18:53 19:45 WBC 15.3 H (3.8-10.6) k/uL RBC (3.80-5.40) m/uL Hgb (11.4-16.0) gm/dL Hct (34.0-46.0) % MCV 102.9 H (80.0-100.0) fL MCHC 30.9 L (31.0-37.0) g/dL Neutrophils # 13.5 H (1.3-7.7) k/uL PT (9.0-12.0) sec INR (<1.2) ABG pH (7.35-7.45) ABG pCO2 (35-45) mmHg ABG pO2 (83-108) mmHg ABG HCO3 (21-25) mmol/L ABG Total CO2 (19-24) mmol/L ABG O2 Saturation (94-97) % ABG Hematocrit (34.0-46.0) % ABG Potassium (3.4-4.5) mmol/L ABG Glucose (75-99) mg/dL Hemoglobin (11.4-16.0) gm/dL Sodium (137-145) mmol/L Chloride (98-107) mmol/L Carbon Dioxide (22-30) mmol/L Creatinine (0.52-1.04) mg/dL Glucose (74-99) mg/dL POC Glucose (mg/dL) 139 H 167 H (75-99) mg/dL Calcium (8.4-10.2) mg/dL Magnesium (1.6-2.3) mg/dL Total Protein (6.3-8.2) g/dL Albumin (3.5-5.0) g/dL Arterial Blood Potassium (3.4-4.5) mmol/L Arterial Blood Glucose (75-99) mg/dL Crossmatch 11/29/20 11/29/20 11/29/20 Range/Units 19:51 20:18 21:10 WBC (3.8-10.6) k/uL RBC (3.80-5.40) m/uL Hgb (11.4-16.0) gm/dL Hct (34.0-46.0) % MCV (80.0-100.0) fL MCHC (31.0-37.0) g/dL Neutrophils # (1.3-7.7) k/uL PT (9.0-12.0) sec INR (<1.2) ABG pH 7.06 L* (7.35-7.45) ABG pCO2 89 H* (35-45) mmHg ABG pO2 64 L (83-108) mmHg ABG HCO3 (21-25) mmol/L ABG Total CO2 28 H (19-24) mmol/L ABG O2 Saturation 80.6 L (94-97) % ABG Hematocrit (34.0-46.0) % ABG Potassium (3.4-4.5) mmol/L ABG Glucose (75-99) mg/dL Hemoglobin (11.4-16.0) gm/dL Sodium (137-145) mmol/L Chloride (98-107) mmol/L Carbon Dioxide (22-30) mmol/L Creatinine (0.52-1.04) mg/dL Glucose (74-99) mg/dL POC Glucose (mg/dL) 151 H 115 H (75-99) mg/dL Calcium (8.4-10.2) mg/dL Magnesium (1.6-2.3) mg/dL Total Protein (6.3-8.2) g/dL Albumin (3.5-5.0) g/dL Arterial Blood Potassium (3.4-4.5) mmol/L Arterial Blood Glucose (75-99) mg/dL Crossmatch 11/29/20 11/29/20 11/29/20 Range/Units 21:38 22:57 23:03 WBC (3.8-10.6) k/uL RBC (3.80-5.40) m/uL Hgb (11.4-16.0) gm/dL Hct (34.0-46.0) % MCV (80.0-100.0) fL MCHC (31.0-37.0) g/dL Neutrophils # (1.3-7.7) k/uL PT (9.0-12.0) sec INR (<1.2) ABG pH 7.25 L 7.47 H (7.35-7.45) ABG pCO2 54 H 29 L (35-45) mmHg ABG pO2 185 H 110 H (83-108) mmHg ABG HCO3 (21-25) mmol/L ABG Total CO2 25 H (19-24) mmol/L ABG O2 Saturation 99.2 H 99.0 H (94-97) % ABG Hematocrit (34.0-46.0) % ABG Potassium (3.4-4.5) mmol/L ABG Glucose (75-99) mg/dL Hemoglobin (11.4-16.0) gm/dL Sodium (137-145) mmol/L Chloride (98-107) mmol/L Carbon Dioxide (22-30) mmol/L Creatinine (0.52-1.04) mg/dL Glucose (74-99) mg/dL POC Glucose (mg/dL) 101 H (75-99) mg/dL Calcium (8.4-10.2) mg/dL Magnesium (1.6-2.3) mg/dL Total Protein (6.3-8.2) g/dL Albumin (3.5-5.0) g/dL Arterial Blood Potassium (3.4-4.5) mmol/L Arterial Blood Glucose (75-99) mg/dL Crossmatch 11/30/20 11/30/20 11/30/20 Range/Units 02:35 03:10 03:10 WBC (3.8-10.6) k/uL RBC 3.42 L (3.80-5.40) m/uL Hgb 10.6 L (11.4-16.0) gm/dL Hct 33.6 L (34.0-46.0) % MCV (80.0-100.0) fL MCHC (31.0-37.0) g/dL Neutrophils # 8.7 H (1.3-7.7) k/uL PT (9.0-12.0) sec INR (<1.2) ABG pH (7.35-7.45) ABG pCO2 (35-45) mmHg ABG pO2 (83-108) mmHg ABG HCO3 (21-25) mmol/L ABG Total CO2 (19-24) mmol/L ABG O2 Saturation (94-97) % ABG Hematocrit (34.0-46.0) % ABG Potassium (3.4-4.5) mmol/L ABG Glucose (75-99) mg/dL Hemoglobin (11.4-16.0) gm/dL Sodium 135 L (137-145) mmol/L Chloride (98-107) mmol/L Carbon Dioxide 17 L (22-30) mmol/L Creatinine (0.52-1.04) mg/dL Glucose 121 H (74-99) mg/dL POC Glucose (mg/dL) 126 H (75-99) mg/dL Calcium (8.4-10.2) mg/dL Magnesium (1.6-2.3) mg/dL Total Protein 4.7 L (6.3-8.2) g/dL Albumin 2.8 L (3.5-5.0) g/dL Arterial Blood Potassium (3.4-4.5) mmol/L Arterial Blood Glucose (75-99) mg/dL Crossmatch 11/30/20 11/30/20 11/30/20 Range/Units 03:12 04:36 05:40 WBC (3.8-10.6) k/uL RBC (3.80-5.40) m/uL Hgb (11.4-16.0) gm/dL Hct (34.0-46.0) % MCV (80.0-100.0) fL MCHC (31.0-37.0) g/dL Neutrophils # (1.3-7.7) k/uL PT (9.0-12.0) sec INR (<1.2) ABG pH 7.50 H (7.35-7.45) ABG pCO2 26 L (35-45) mmHg ABG pO2 139 H (83-108) mmHg ABG HCO3 (21-25) mmol/L ABG Total CO2 (19-24) mmol/L ABG O2 Saturation 99.8 H (94-97) % ABG Hematocrit (34.0-46.0) % ABG Potassium (3.4-4.5) mmol/L ABG Glucose (75-99) mg/dL Hemoglobin (11.4-16.0) gm/dL Sodium (137-145) mmol/L Chloride (98-107) mmol/L Carbon Dioxide (22-30) mmol/L Creatinine (0.52-1.04) mg/dL Glucose (74-99) mg/dL POC Glucose (mg/dL) 128 H 123 H (75-99) mg/dL Calcium (8.4-10.2) mg/dL Magnesium (1.6-2.3) mg/dL Total Protein (6.3-8.2) g/dL Albumin (3.5-5.0) g/dL Arterial Blood Potassium (3.4-4.5) mmol/L Arterial Blood Glucose (75-99) mg/dL Crossmatch 11/30/20 11/30/20 Range/Units 06:05 07:08 WBC (3.8-10.6) k/uL RBC (3.80-5.40) m/uL Hgb (11.4-16.0) gm/dL Hct (34.0-46.0) % MCV (80.0-100.0) fL MCHC (31.0-37.0) g/dL Neutrophils # (1.3-7.7) k/uL PT (9.0-12.0) sec INR (<1.2) ABG pH (7.35-7.45) ABG pCO2 (35-45) mmHg ABG pO2 (83-108) mmHg ABG HCO3 (21-25) mmol/L ABG Total CO2 (19-24) mmol/L ABG O2 Saturation (94-97) % ABG Hematocrit (34.0-46.0) % ABG Potassium (3.4-4.5) mmol/L ABG Glucose (75-99) mg/dL Hemoglobin (11.4-16.0) gm/dL Sodium (137-145) mmol/L Chloride (98-107) mmol/L Carbon Dioxide (22-30) mmol/L Creatinine (0.52-1.04) mg/dL Glucose (74-99) mg/dL POC Glucose (mg/dL) 121 H 117 H (75-99) mg/dL Calcium (8.4-10.2) mg/dL Magnesium (1.6-2.3) mg/dL Total Protein (6.3-8.2) g/dL Albumin (3.5-5.0) g/dL Arterial Blood Potassium (3.4-4.5) mmol/L Arterial Blood Glucose (75-99) mg/dL Crossmatch Assessment and Plan Plan: 1 symptomatic coronary artery disease, multivessel and the patient underwent three-vessel bypass surgery, off pump, currently postop day #1. The patient is currently hemodynamically stable. Hemodynamic parameters including pulmonary artery pressure, cardiac output and index .. Hemodynamically stable. She is on no pressors. She is on Cleviprex drip for blood pressure control. Chest tubes are all in place. No evidence of any bleeding. No cardiac arrhythmias. Adequate cardiac output and index. Still intubated on mechanical ventilator. Failed extubation yesterday. 2 post thoracotomy, the patient currently is intubated on a mechanical ventilator and the patient has right pleural, left pleural and mediastinal chest tube. Chest x-ray was noted. Blood gases was noted. The patient failed extubation yesterday. The patient was hypoventilating and she developed an acute respiratory acidosis with altered mentation. She failed BiPAP postextubation and she had to be reintubated. The same process of weaning and extubation to be done today. 3 severe peripheral vascular disease, post bilateral iliac artery stenting and the patient has undergone previous left superficial femoral artery atherectomy , angioplasty and stenting. 4 hypertension currently on Cleviprex for blood pressure control currently running at 4 mg an hour 5 hyperlipidemia 6 history of smoking 7 COPD 8 obstructive sleep apnea without CPAP therapy on outpatient basis 9 history of multiple sclerosis 10 history of recurrent cellulitis of the lower extremity and the patient has had previous nonhealing wounds, none for now. Plan Continue vent support The tidal volume to 400, Dr. respiratory rate down to 14, Wean off sedation and check weaning parameters Drop the FiO2 to maintain a saturation above 90% Monitor hemodynamics Continue Cleviprex drip for blood pressure control Monitor upper from the chest tubes Chest x-ray was reviewed We will proceed with a weaning protocol. We'll check weaning parameters. We will this point is breathing trial. We'll check blood gas. Monitor neurologic status. Monitor hemodynamics. Possible a second attempt at extubation today. Evaluation was done and more than 30 minutes. Time with Patient: Greater than 30
[2020-11-30 08:13] LABS: Glucose,Whole Blood 116 mg/dL (75-99)
[2020-11-30] MEDS: IPRATROPIUM-ALBUTEROL 3 ML NEB INHALATION SCH ×4 (08:18→20:49)
--- NOTE | 2020-11-30 08:27 | P.PN ---
Subjective Progress Note Date: 11/30/20 Principal diagnosis: Coronary artery disease. Previous medical history of coronary artery disease with previous stenting to the LAD, hypertension, hyperlipidemia, peripheral jessi rial disease with bilateral iliac stenting and atherectomy of the left superficial femoral artery as well as left lower extremity wounds necessitating debridement in July 2020, previous tobacco dependence, severe COPD with preoperative FEV1 44% of predicted, as needed home oxygen use, obstructive sleep apnea without CPAP use, remote history of pneumonia, multiple sclerosis. POD #1 CABG 3 with free left internal mammary artery to the left anterior descending artery, reverse greater saphenous vein graft to the obtuse marginal artery, reverse greater saphenous vein graft to the posterior descending artery, endovascular vein harvest of the right greater saphenous vein from just below the knee to the groin, ligation of the left atrial appendage with a 40 mm AtriCure clip Postoperative acute blood loss anemia and thrombocytopenia, expected given hemodilution Patient currently laying in bed in the intensive care unit, sedated and mechanically ventilated. She was successfully extubated last night at 1757, however over the course of the next few hours she became less responsive and mo re obtunded and was subsequently reintubated at 2100. Ventilator changes were made several times through the course of the evening by Dr. Travis. This morning she is awake and alert and following all commands. She remains in sinus rhythm and hemodynamically stable on Cleviprex for blood pressure control. Right internal jugular Scio/Cordis, left radial arterial line, mediastinal/left/right pleural chest tubes all remaining present. When asked if pain is controlled she does nod her head yes. Pulmonology will attempt extubation again as able. Objective - Vital Signs Vital signs: Vital Signs Temp 99.5 F 11/30/20 04:00 Pulse 78 11/30/20 05:45 Resp 22 11/30/20 05:45 BP 112/57 11/30/20 05:45 Pulse Ox 100 11/30/20 05:45 Intake & Output 11/29/20 11/30/20 11/30/20 18:59 06:59 18:59 Intake Total 109.361 0205.228 186.298 Output Total 4375 948 23 Balance -1266.990 456.228 163.298 Weight 63.1 kg Intake: IV 158 1308 179 0.9 CO/CI 60 300 20 0.9 flush 45 108 9 Albumin Human 5% 250 ml 250 In Empty Bag 1 bag @ 250 mls/hr IVPB Q1HR PRN Rx#: [id number] Lactated Ringers 1,000 ml 550 50 @ 50 mls/hr IV .Q20H MARY ANNE Rx#:[id number] Potassium Chloride 10 meq 100 100 In Water For Injection 1 100ml.bag @ 100 mls/hr IVPB Q1H MARY ANNE Rx#: [id number] Intake, IV Titration 630.010 96.228 7.298 Amount ACETAMINOPHEN IV (For NPO 100 ) 1,000 mg In Empty Bag 1 bag @ 400 mls/hr IVPB Q6HR MARY ANNE Rx#:[id number] Clevidipine Butyrate 25 24.933 32.267 5 mg In Empty Bag 1 bag @ 1 MG/HR 2 mls/hr IV .Q24H MARY ANNE Rx#:[id number] Insulin Regular 100 unit 0.488 6.27 2.298 In Sodium Chloride 0.9% 100 ml @ Per Protocol IV .Q0M MARY ANNE Rx#:[id number] Lactated Ringers 1,000 ml 250 50 @ 50 mls/hr IV .Q20H MARY ANNE Rx#:[id number] Magnesium Sulfate-D5w Pmx 200 1 gm In Dextrose/Water 1 100ml.bag @ 100 mls/hr IVPB Q1H MARY ANNE Rx#: [id number] ceFAZolin 2 gm In Sodium 50 Chloride 0.9% 50 ml @ 100 mls/hr IVPB Q8HR MARY ANNE Rx# :[id number] propofoL 1,000 mg In 4.589 Empty Bag 1 bag @ Titrate IV .Q0M MARY ANNE Rx#: [id number] propofoL 1,000 mg In 7.691 Empty Bag 1 bag @ Titrate IV .Q0M MARY ANNE Rx#: [id number] Output: Chest Tube Drainage 375 537 0 Chest Tube Left 130 76 0 Chest Tube Mediastinal 80 201 0 Chest Tube Right 165 260 0 Urine 930 411 23 Estimated Blood Loss 750 Other: Voiding Method Indwelling Catheter Indwelling Catheter ABP, PAP, CO, CI - Last Documented Arterial Blood Pressure 131/53 Pulmonary Artery Pressure 37/19 Cardiac Output 4.4 Cardiac Index 2.8 - Exam CONSTITUTIONAL: Appears comfortable, cooperative, no acute distress RESPIRATORY: Lungs sounds diminished bilaterally. Respirations even, nonlabored. Currently on mechanical ventilation, assist control mode, FiO2 40%, PEEP 5, tidal volume 400, respiratory rate 14. 7.5 ET tube present, 22 at the lip. CARDIOVASCULAR: S1, S2 present. Regular rate and rhythm, sinus rhythm on telemetry. Sternum stable. Doppler peripheral pulses bilaterally. Generalized edema present. No calf pain or tenderness noted. Heart hugger, antiembolism stockings, SCDs present. GASTROINTESTINAL: Abdomen soft, nontender, nondistended. Hypoactive bowel sounds present 4 quadrants. GENITOURINARY: Tadeo present draining clear, yellow urine. Output overnight 30-50 mL per hour INTEGUMENTARY: Skin is warm and dry. Anterior chest incision well approximated and covered with dry intact dressing. EVH site well approximated without redness or drainage. NEUROLOGIC: Cranial nerves II through XII intact MUSKULOSKELETAL: Able to move all extremities, strength equal bilaterally PSYCHIATRIC: Alert, appropriate affect INVASIVE LINES AND TUBES: Mediastinal/left/right pleural chest tubes present and connected to wall suction, no air leaks present. Mediastinal tube with 80 mL serosanguineous drainage overnight, 300 mL since surgery. Left pleural chest tube with 16 mL serosanguineous drainage overnight, 210 mL since surgery. Right pleural chest tube with 80 mL serosanguineous drainage overnight, 410 mL since surgery. Right internal jugular Scio/Cordis, left radial arterial line present. Last CO/CI 4.4/2.8, PA 41/22, CVP 10. - Allied health notes Allied health notes reviewed: nursing - Labs CBC & Chem 7: 11/30/20 03:10 11/30/20 03:10 Labs: Abnormal Lab Results - Last 24 Hours (Table) 11/22/20 11/29/20 11/29/20 Range/Units 09:00 08:28 11:28 WBC (3.8-10.6) k/uL RBC (3.80-5.40) m/uL Hgb (11.4-16.0) gm/dL Hct (34.0-46.0) % MCV (80.0-100.0) fL MCHC (31.0-37.0) g/dL Neutrophils # (1.3-7.7) k/uL PT (9.0-12.0) sec INR (<1.2) ABG pH (7.35-7.45) ABG pCO2 (35-45) mmHg ABG pO2 405 H 122 H (83-108) mmHg ABG HCO3 26 H 27 H (21-25) mmol/L ABG Total CO2 27 H 28 H (19-24) mmol/L ABG O2 Saturation 100.0 H 99.4 H (94-97) % ABG Hematocrit 31 L (34.0-46.0) % ABG Potassium (3.4-4.5) mmol/L ABG Glucose 113 H 107 H (75-99) mg/dL Hemoglobin 11.1 L 10.1 L (11.4-16.0) gm/dL Sodium (137-145) mmol/L Chloride (98-107) mmol/L Carbon Dioxide (22-30) mmol/L Creatinine (0.52-1.04) mg/dL Glucose (74-99) mg/dL POC Glucose (mg/dL) (75-99) mg/dL Calcium (8.4-10.2) mg/dL Magnesium (1.6-2.3) mg/dL Total Protein (6.3-8.2) g/dL Albumin (3.5-5.0) g/dL Arterial Blood Potassium (3.4-4.5) mmol/L Arterial Blood Glucose 113 H 107 H (75-99) mg/dL Crossmatch See Detail 11/29/20 11/29/20 11/29/20 Range/Units 11:59 12:31 13:06 WBC (3.8-10.6) k/uL RBC (3.80-5.40) m/uL Hgb (11.4-16.0) gm/dL Hct (34.0-46.0) % MCV (80.0-100.0) fL MCHC (31.0-37.0) g/dL Neutrophils # (1.3-7.7) k/uL PT (9.0-12.0) sec INR (<1.2) ABG pH (7.35-7.45) ABG pCO2 46 H (35-45) mmHg ABG pO2 125 H 133 H 156 H (83-108) mmHg ABG HCO3 27 H 26 H (21-25) mmol/L ABG Total CO2 28 H 28 H 26 H (19-24) mmol/L ABG O2 Saturation 99.4 H 99.3 H 99.8 H (94-97) % ABG Hematocrit 31 L 32 L 31 L (34.0-46.0) % ABG Potassium 4.9 H (3.4-4.5) mmol/L ABG Glucose 110 H 110 H 106 H (75-99) mg/dL Hemoglobin 10.2 L 10.5 L 10.2 L (11.4-16.0) gm/dL Sodium (137-145) mmol/L Chloride (98-107) mmol/L Carbon Dioxide (22-30) mmol/L Creatinine (0.52-1.04) mg/dL Glucose (74-99) mg/dL POC Glucose (mg/dL) (75-99) mg/dL Calcium (8.4-10.2) mg/dL Magnesium (1.6-2.3) mg/dL Total Protein (6.3-8.2) g/dL Albumin (3.5-5.0) g/dL Arterial Blood Potassium 4.9 H (3.4-4.5) mmol/L Arterial Blood Glucose 110 H 110 H 106 H (75-99) mg/dL Crossmatch 11/29/20 11/29/20 11/29/20 Range/Units 13:52 14:45 14:45 WBC (3.8-10.6) k/uL RBC 3.58 L (3.80-5.40) m/uL Hgb (11.4-16.0) gm/dL Hct (34.0-46.0) % MCV (80.0-100.0) fL MCHC (31.0-37.0) g/dL Neutrophils # (1.3-7.7) k/uL PT 12.7 H (9.0-12.0) sec INR 1.2 H (<1.2) ABG pH 7.34 L (7.35-7.45) ABG pCO2 46 H (35-45) mmHg ABG pO2 81 L (83-108) mmHg ABG HCO3 (21-25) mmol/L ABG Total CO2 26 H (19-24) mmol/L ABG O2 Saturation (94-97) % ABG Hematocrit 31 L (34.0-46.0) % ABG Potassium (3.4-4.5) mmol/L ABG Glucose 110 H (75-99) mg/dL Hemoglobin 10.3 L (11.4-16.0) gm/dL Sodium (137-145) mmol/L Chloride (98-107) mmol/L Carbon Dioxide (22-30) mmol/L Creatinine (0.52-1.04) mg/dL Glucose (74-99) mg/dL POC Glucose (mg/dL) (75-99) mg/dL Calcium (8.4-10.2) mg/dL Magnesium (1.6-2.3) mg/dL Total Protein (6.3-8.2) g/dL Albumin (3.5-5.0) g/dL Arterial Blood Potassium (3.4-4.5) mmol/L Arterial Blood Glucose 110 H (75-99) mg/dL Crossmatch 11/29/20 11/29/20 11/29/20 Range/Units 14:45 15:06 15:08 WBC (3.8-10.6) k/uL RBC (3.80-5.40) m/uL Hgb (11.4-16.0) gm/dL Hct (34.0-46.0) % MCV (80.0-100.0) fL MCHC (31.0-37.0) g/dL Neutrophils # (1.3-7.7) k/uL PT (9.0-12.0) sec INR (<1.2) ABG pH (7.35-7.45) ABG pCO2 (35-45) mmHg ABG pO2 310 H (83-108) mmHg ABG HCO3 (21-25) mmol/L ABG Total CO2 (19-24) mmol/L ABG O2 Saturation 100.0 H (94-97) % ABG Hematocrit (34.0-46.0) % ABG Potassium (3.4-4.5) mmol/L ABG Glucose (75-99) mg/dL Hemoglobin (11.4-16.0) gm/dL Sodium (137-145) mmol/L Chloride 108 H (98-107) mmol/L Carbon Dioxide (22-30) mmol/L Creatinine 0.49 L (0.52-1.04) mg/dL Glucose 100 H (74-99) mg/dL POC Glucose (mg/dL) 117 H (75-99) mg/dL Calcium 8.3 L (8.4-10.2) mg/dL Magnesium 1.4 L (1.6-2.3) mg/dL Total Protein 5.0 L (6.3-8.2) g/dL Albumin 3.0 L (3.5-5.0) g/dL Arterial Blood Potassium (3.4-4.5) mmol/L Arterial Blood Glucose (75-99) mg/dL Crossmatch 11/29/20 11/29/20 11/29/20 Range/Units 16:08 16:10 17:13 WBC (3.8-10.6) k/uL RBC (3.80-5.40) m/uL Hgb (11.4-16.0) gm/dL Hct (34.0-46.0) % MCV (80.0-100.0) fL MCHC (31.0-37.0) g/dL Neutrophils # (1.3-7.7) k/uL PT (9.0-12.0) sec INR (<1.2) ABG pH 7.23 L (7.35-7.45) ABG pCO2 56 H (35-45) mmHg ABG pO2 (83-108) mmHg ABG HCO3 (21-25) mmol/L ABG Total CO2 25 H (19-24) mmol/L ABG O2 Saturation (94-97) % ABG Hematocrit (34.0-46.0) % ABG Potassium (3.4-4.5) mmol/L ABG Glucose (75-99) mg/dL Hemoglobin (11.4-16.0) gm/dL Sodium (137-145) mmol/L Chloride (98-107) mmol/L Carbon Dioxide (22-30) mmol/L Creatinine (0.52-1.04) mg/dL Glucose (74-99) mg/dL POC Glucose (mg/dL) 71 L 128 H (75-99) mg/dL Calcium (8.4-10.2) mg/dL Magnesium (1.6-2.3) mg/dL Total Protein (6.3-8.2) g/dL Albumin (3.5-5.0) g/dL Arterial Blood Potassium (3.4-4.5) mmol/L Arterial Blood Glucose (75-99) mg/dL Crossmatch 11/29/20 11/29/20 11/29/20 Range/Units 18:05 18:53 19:45 WBC 15.3 H (3.8-10.6) k/uL RBC (3.80-5.40) m/uL Hgb (11.4-16.0) gm/dL Hct (34.0-46.0) % MCV 102.9 H (80.0-100.0) fL MCHC 30.9 L (31.0-37.0) g/dL Neutrophils # 13.5 H (1.3-7.7) k/uL PT (9.0-12.0) sec INR (<1.2) ABG pH (7.35-7.45) ABG pCO2 (35-45) mmHg ABG pO2 (83-108) mmHg ABG HCO3 (21-25) mmol/L ABG Total CO2 (19-24) mmol/L ABG O2 Saturation (94-97) % ABG Hematocrit (34.0-46.0) % ABG Potassium (3.4-4.5) mmol/L ABG Glucose (75-99) mg/dL Hemoglobin (11.4-16.0) gm/dL Sodium (137-145) mmol/L Chloride (98-107) mmol/L Carbon Dioxide (22-30) mmol/L Creatinine (0.52-1.04) mg/dL Glucose (74-99) mg/dL POC Glucose (mg/dL) 139 H 167 H (75-99) mg/dL Calcium (8.4-10.2) mg/dL Magnesium (1.6-2.3) mg/dL Total Protein (6.3-8.2) g/dL Albumin (3.5-5.0) g/dL Arterial Blood Potassium (3.4-4.5) mmol/L Arterial Blood Glucose (75-99) mg/dL Crossmatch 11/29/20 11/29/20 11/29/20 Range/Units 19:51 20:18 21:10 WBC (3.8-10.6) k/uL RBC (3.80-5.40) m/uL Hgb (11.4-16.0) gm/dL Hct (34.0-46.0) % MCV (80.0-100.0) fL MCHC (31.0-37.0) g/dL Neutrophils # (1.3-7.7) k/uL PT (9.0-12.0) sec INR (<1.2) ABG pH 7.06 L* (7.35-7.45) ABG pCO2 89 H* (35-45) mmHg ABG pO2 64 L (83-108) mmHg ABG HCO3 (21-25) mmol/L ABG Total CO2 28 H (19-24) mmol/L ABG O2 Saturation 80.6 L (94-97) % ABG Hematocrit (34.0-46.0) % ABG Potassium (3.4-4.5) mmol/L ABG Glucose (75-99) mg/dL Hemoglobin (11.4-16.0) gm/dL Sodium (137-145) mmol/L Chloride (98-107) mmol/L Carbon Dioxide (22-30) mmol/L Creatinine (0.52-1.04) mg/dL Glucose (74-99) mg/dL POC Glucose (mg/dL) 151 H 115 H (75-99) mg/dL Calcium (8.4-10.2) mg/dL Magnesium (1.6-2.3) mg/dL Total Protein (6.3-8.2) g/dL Albumin (3.5-5.0) g/dL Arterial Blood Potassium (3.4-4.5) mmol/L Arterial Blood Glucose (75-99) mg/dL Crossmatch 11/29/20 11/29/20 11/29/20 Range/Units 21:38 22:57 23:03 WBC (3.8-10.6) k/uL RBC (3.80-5.40) m/uL Hgb (11.4-16.0) gm/dL Hct (34.0-46.0) % MCV (80.0-100.0) fL MCHC (31.0-37.0) g/dL Neutrophils # (1.3-7.7) k/uL PT (9.0-12.0) sec INR (<1.2) ABG pH 7.25 L 7.47 H (7.35-7.45) ABG pCO2 54 H 29 L (35-45) mmHg ABG pO2 185 H 110 H (83-108) mmHg ABG HCO3 (21-25) mmol/L ABG Total CO2 25 H (19-24) mmol/L ABG O2 Saturation 99.2 H 99.0 H (94-97) % ABG Hematocrit (34.0-46.0) % ABG Potassium (3.4-4.5) mmol/L ABG Glucose (75-99) mg/dL Hemoglobin (11.4-16.0) gm/dL Sodium (137-145) mmol/L Chloride (98-107) mmol/L Carbon Dioxide (22-30) mmol/L Creatinine (0.52-1.04) mg/dL Glucose (74-99) mg/dL POC Glucose (mg/dL) 101 H (75-99) mg/dL Calcium (8.4-10.2) mg/dL Magnesium (1.6-2.3) mg/dL Total Protein (6.3-8.2) g/dL Albumin (3.5-5.0) g/dL Arterial Blood Potassium (3.4-4.5) mmol/L Arterial Blood Glucose (75-99) mg/dL Crossmatch 11/30/20 11/30/20 11/30/20 Range/Units 02:35 03:10 03:10 WBC (3.8-10.6) k/uL RBC 3.42 L (3.80-5.40) m/uL Hgb 10.6 L (11.4-16.0) gm/dL Hct 33.6 L (34.0-46.0) % MCV (80.0-100.0) fL MCHC (31.0-37.0) g/dL Neutrophils # 8.7 H (1.3-7.7) k/uL PT (9.0-12.0) sec INR (<1.2) ABG pH (7.35-7.45) ABG pCO2 (35-45) mmHg ABG pO2 (83-108) mmHg ABG HCO3 (21-25) mmol/L ABG Total CO2 (19-24) mmol/L ABG O2 Saturation (94-97) % ABG Hematocrit (34.0-46.0) % ABG Potassium (3.4-4.5) mmol/L ABG Glucose (75-99) mg/dL Hemoglobin (11.4-16.0) gm/dL Sodium 135 L (137-145) mmol/L Chloride (98-107) mmol/L Carbon Dioxide 17 L (22-30) mmol/L Creatinine (0.52-1.04) mg/dL Glucose 121 H (74-99) mg/dL POC Glucose (mg/dL) 126 H (75-99) mg/dL Calcium (8.4-10.2) mg/dL Magnesium (1.6-2.3) mg/dL Total Protein 4.7 L (6.3-8.2) g/dL Albumin 2.8 L (3.5-5.0) g/dL Arterial Blood Potassium (3.4-4.5) mmol/L Arterial Blood Glucose (75-99) mg/dL Crossmatch 11/30/20 11/30/20 11/30/20 Range/Units 03:12 04:36 05:40 WBC (3.8-10.6) k/uL RBC (3.80-5.40) m/uL Hgb (11.4-16.0) gm/dL Hct (34.0-46.0) % MCV (80.0-100.0) fL MCHC (31.0-37.0) g/dL Neutrophils # (1.3-7.7) k/uL PT (9.0-12.0) sec INR (<1.2) ABG pH 7.50 H (7.35-7.45) ABG pCO2 26 L (35-45) mmHg ABG pO2 139 H (83-108) mmHg ABG HCO3 (21-25) mmol/L ABG Total CO2 (19-24) mmol/L ABG O2 Saturation 99.8 H (94-97) % ABG Hematocrit (34.0-46.0) % ABG Potassium (3.4-4.5) mmol/L ABG Glucose (75-99) mg/dL Hemoglobin (11.4-16.0) gm/dL Sodium (137-145) mmol/L Chloride (98-107) mmol/L Carbon Dioxide (22-30) mmol/L Creatinine (0.52-1.04) mg/dL Glucose (74-99) mg/dL POC Glucose (mg/dL) 128 H 123 H (75-99) mg/dL Calcium (8.4-10.2) mg/dL Magnesium (1.6-2.3) mg/dL Total Protein (6.3-8.2) g/dL Albumin (3.5-5.0) g/dL Arterial Blood Potassium (3.4-4.5) mmol/L Arterial Blood Glucose (75-99) mg/dL Crossmatch 11/30/20 11/30/20 Range/Units 06:05 07:08 WBC (3.8-10.6) k/uL RBC (3.80-5.40) m/uL Hgb (11.4-16.0) gm/dL Hct (34.0-46.0) % MCV (80.0-100.0) fL MCHC (31.0-37.0) g/dL Neutrophils # (1.3-7.7) k/uL PT (9.0-12.0) sec INR (<1.2) ABG pH (7.35-7.45) ABG pCO2 (35-45) mmHg ABG pO2 (83-108) mmHg ABG HCO3 (21-25) mmol/L ABG Total CO2 (19-24) mmol/L ABG O2 Saturation (94-97) % ABG Hematocrit (34.0-46.0) % ABG Potassium (3.4-4.5) mmol/L ABG Glucose (75-99) mg/dL Hemoglobin (11.4-16.0) gm/dL Sodium (137-145) mmol/L Chloride (98-107) mmol/L Carbon Dioxide (22-30) mmol/L Creatinine (0.52-1.04) mg/dL Glucose (74-99) mg/dL POC Glucose (mg/dL) 121 H 117 H (75-99) mg/dL Calcium (8.4-10.2) mg/dL Magnesium (1.6-2.3) mg/dL Total Protein (6.3-8.2) g/dL Albumin (3.5-5.0) g/dL Arterial Blood Potassium (3.4-4.5) mmol/L Arterial Blood Glucose (75-99) mg/dL Crossmatch - Imaging and Cardiology Chest x-ray: report reviewed, image reviewed Assessment and Plan Assessment: 1. Coronary artery disease, previous stenting to the LAD, status post three- vessel CABG 2. Hypertension 3. Hyperlipidemia, treated, cholesterol 113, LDL 53 4. Peripheral arterial disease with bilateral iliac stenting and atherectomy of the left superficial femoral artery as well as left lower extremity wounds necessitating debridement in July 2020 5. Previous tobacco dependence 6. Severe COPD with preoperative FEV1 44% of predicted 7. As needed home oxygen use 8. Obstructive sleep apnea without CPAP use 9. Remote history of pneumonia 10. Multiple sclerosis 11. Postoperative acute blood loss anemia and thrombocytopenia, expected Plan: 1. Continue aspirin, statin, Plavix, beta patti therapy. Will increase beta blockers as tolerated 2. Discontinue IV nitro. Wean Cleviprex as tolerated 3. Wean from ventilator per pulmonology recommendations. Once extubated, encourage incentive spirometry 10 times every hour while awake 4. Once extubated will increase activity as tolerated. PT/OT/cardiac rehab consulted 5. Will monitor daily labs and x-rays. Electrolyte replacement per protocol. Will start Lasix 20 mg IV push every 8 hours 6. GI/DVT prophylaxis 7. Pain controlled current medication regimen 8. Insulin management per primary care service. Patient is not diabetic, preoperative hemoglobin A1c 5% 9. Will discontinue Scio later today, connect Cordis to continuous CVP monitoring 10. Continue chest tubes for another 24 hours 11. Continue Tadeo catheter for another 24 hours for strict accurate intake and output. Daily weights 12. More recommendations to follow Time with Patient: Greater than 30
[2020-11-30] MEDS ORDERED: CHLORHEXIDINE GLUCONATE 15 ML CUP MUCOUS MEM SCH (09:00)
[2020-11-30] MEDS ORDERED: METOPROLOL TARTRATE 12.5 MG TAB PO SCH (09:00)
[2020-11-30] MEDS ORDERED: bisacodyL 10 MG SUPP RECTAL PRN (09:00)
[2020-11-30] MEDS ORDERED: METOPROLOL TARTRATE 25 MG TAB PO SCH (09:00)
[2020-11-30] MEDS ORDERED: MAGNESIUM HYDROXIDE 2,400 MG/10 ML CUP PO PRN (09:00)
[2020-11-30] MEDS ORDERED: PANTOPRAZOLE 40 MG/10 ML VIAL IVP SCH (09:00)
[2020-11-30 09:20] LABS: Glucose,Whole Blood 120 mg/dL (75-99)
[2020-11-30] MEDS: ASPIRIN 325 MG TAB PO SCH (09:33)
[2020-11-30] MEDS: HEPARIN SODIUM,PORCINE/PF 5,000 UNIT/0.5 ML SYRINGE SQ SCH ×3 (09:33→23:51)
[2020-11-30] MEDS: FUROSEMIDE 10 MG/ML 2 ML VIAL IV SCH ×3 (09:33→23:52)
[2020-11-30] MEDS: POTASSIUM CHLORIDE ER 20 MEQ TAB.ER PO SCH ×2 (09:34→20:48)
[2020-11-30] MEDS: CLOPIDOGREL 75 MG TAB PO SCH (09:34)
[2020-11-30] MEDS: LACTATED RINGERS 1,000 ML IV SCH (09:35)
[2020-11-30 09:57] LABS: Glucose,Whole Blood 115 mg/dL (75-99)
--- NOTE | 2020-11-30 10:40 | P.CRDCN ---
History of Present Illness History of present illness: HISTORY OF PRESENTING ILLNESS This is a pleasant 75-year-old female past medical history significant for coronary artery disease, peripheral vascular disease s/p iliac athrectomy a nd stenting, COPD, hypertension, dyslipidemia, multiple sclerosis, former nicotine dependence, mitral regurgitation, sleep apnea and former nicotine dependence. She follows in the office with Dr. Adame. She underwent coronary artery bypass grafting yesterday with Dr. Hargrove. She had BAUTISTA-LAD, SVG-OM and SVG-PDA with ligation of left atrial appendage. She was initially extubated yesterday post-operatively, however became fatigued and hypercapnic requiring re-intubation. She is currently maintained on mechanical ventilation. She is awake and moving her extremities freely. Blood pressure 132/48 heart rate 84 and she is afebrile. Laboratory data reviewed, WBC 10.3, hemoglobin 10.6, platelets 165, pH 7.5, pCO2 26, pO2 139, sodium 135, potassium 3.7, creatinine 0.79 and magnesium 2.0. Currently maintained on aspirin 325 mg daily, atorvastatin 80 mg daily, Plavix 75 mg daily, Lasix 20 mg IV 3 times a day, metoprolol 25 mg twice a day, cleviprex infusion and nitroglycerin infusion. Pre-operative echocardiogram revealed impaired LV systolic function with EF 40-45%, basal inferior, inferoseptal and mid inferior wall hypokinesia. she had mild-moderate MR, mild TR and moderate pulmonary hypertension with RVSP 54 mmHg. REVIEW OF SYSTEMS At the time of my exam: Unable to obtain accurate review of systems due to mechanical ventilation. PHYSICAL EXAMINATION CONSTITUTIONAL: No apparent distress. HEENT: Head is normocephalic. Pupils are equal, round. Sclerae anicteric. Mucous membranes of the mouth are moist. No JVD. No carotid bruit. Right IJ in place. CHEST EXAMINATION: Scattered rhonchi, no wheezes. No chest wall tenderness is noted on palpation or with deep breathing. Heart hugger in place. Mediastinal/left/right chest tubes present connected to wall suction. HEART EXAMINATION: Regular rate and rhythm. S1, S2 heard. Systolic ejection murmur at the base, no gallops or rub. ABDOMEN: Soft, nontender. Positive bowel sounds. EXTREMITIES: 2+ peripheral pulses, no lower extremity edema and no calf tenderness. Right radial art line in place. NEUROLOGIC EXAMINATION: Patient arousable and moving all extremities. ASSESSMENT Coronary artery disease s/p bypass grafting Hypercapnia requiring re-intubation Peripheral vascular disease Hypertension Dyslipidemia Mitral regurgitation Multiple sclerosis COPD Sleep apnea Former nicotine dependence PLAN Continue current medical regimen. Possible extubation per critical care team. Cleviprexi is being weaned off. Follow renal function and electrolytes in the morning. Continue to provide supportive care. Thank you kindly for this consultation. Nurse Practitioner note has been reviewed, I agree with a documented findings and plan of care. Patient was seen and examined. Past Medical History Past Medical History: Coronary Artery Disease (CAD), COPD, Hyperlipidemia, Hypertension, Neurologic Disorder, Osteoarthritis (OA), Skin Disorder, Sleep Apnea/CPAP/BIPAP, Vascular Disorder Additional Past Medical History / Comment(s): mild redness with swelling to joya lower extremities-firm to touch,hx "leaky mitral valve", wound left leg/foot/toes-multiple areas-healed was seen in wound center, [place], occasional use of oxygen for sleep apnea @ 2.5L [place], doesn't use CPAP History of Any Multi-Drug Resistant Organisms: None Reported Past Surgical History: Appendectomy, Breast Surgery, Heart Catheterization, Heart Catheterization With Stent, Tonsillectomy Additional Past Surgical History / Comment(s): joya benign breast biopsy, atherectomy of left common femoral artery,stenting of rt and lt external iliac arteries,stent left SFA,balloon angioplasty of left popliteal artery,angiogram. Past Anesthesia/Blood Transfusion Reactions: No Reported Reaction, Motion Sick ness Additional Past Anesthesia/Blood Transfusion Reaction / Comment(s): no hx blood transfusion Date of Last Stent Placement:: 2009 Smoking Status: Former smoker - Past Family History Father Family Medical History: No Reported History Mother Family Medical History: Cancer Additional Family Medical History / Comment(s): breast and brain Medications and Allergies Home Medications Medication Instructions Recorded Confirmed Type Aspirin [Adult Low Dose Aspirin EC] 81 mg PO DAILY 05/09/20 11/23/20 History Isosorbide Mononitrate ER [Imdur] 30 mg PO DAILY 05/09/20 11/23/20 History Atorvastatin [Lipitor] 80 mg PO HS 08/02/20 11/23/20 History Losartan [Cozaar] 25 mg PO DAILY 08/02/20 11/23/20 History Metoprolol Succinate [Toprol XL] 25 mg PO DAILY 08/02/20 11/23/20 History Ranolazine [Ranexa] 500 mg PO BID 08/02/20 11/23/20 History Furosemide [Lasix] 20 mg PO BID 08/09/20 11/23/20 History Clopidogrel Bisulfate [Plavix] 75 mg PO DAILY #90 tab 08/16/20 11/23/20 Rx Mupirocin 2% Oint [Bactroban 2% 1 applic NASAL BID #1 tube 11/22/20 11/23/20 Rx Oint] Albuterol Inhaler [Ventolin Hfa 1 puff INHALATION RT-QID PRN 11/23/20 11/23/20 History Inhaler] Fluticasone/Umeclidin/Vilanter 1 inhalation INHALATION DAILY 11/23/20 11/23/20 History [Sky Ellipta 100-62.5-25] ALPRAZolam [Xanax] 0.25 mg PO DAILY PRN 11/28/20 11/28/20 History Allergies Allergy/AdvReac Type Severity Reaction Status Date / Time sumatriptan [From Imitrex] Allergy Chest Pain Verified 11/23/20 15:00 Physical Exam Vitals: Vital Signs Temp Pulse Pulse Resp BP Pulse Ox 11/30/20 09:00 84 15 99 11/30/20 08:30 80 14 11/30/20 08:18 86 14 11/30/20 08:00 99.5 F 79 14 100 11/30/20 07:00 79 22 100 11/30/20 06:00 78 22 100 11/30/20 05:45 78 22 112/57 100 11/30/20 05:30 75 22 100 11/30/20 05:15 82 22 112/57 100 11/30/20 05:00 79 22 100 11/30/20 04:45 85 22 100 11/30/20 04:30 79 22 100 11/30/20 04:15 79 22 100 11/30/20 04:00 99.5 F 76 77 22 100 11/30/20 03:45 80 22 100 11/30/20 03:30 74 22 100 11/30/20 03:15 75 22 103/51 100 11/30/20 03:00 78 22 100 11/30/20 02:45 77 22 100 11/30/20 02:30 73 22 100 11/30/20 02:15 77 22 102/47 100 11/30/20 02:00 71 22 100 11/30/20 01:45 75 22 100 11/30/20 01:30 71 22 100 11/30/20 01:15 75 22 104/48 100 11/30/20 01:00 76 22 100 11/30/20 00:45 71 22 100 11/30/20 00:30 70 22 100 11/30/20 00:15 71 22 94/36 100 11/30/20 00:00 65 66 22 92/56 100 11/29/20 23:45 71 22 100 11/29/20 23:30 99.0 F 66 22 100 11/29/20 23:15 66 22 105/56 100 11/29/20 23:00 61 22 100 11/29/20 22:45 69 22 100 11/29/20 22:30 63 22 100 11/29/20 22:15 71 22 80/51 100 11/29/20 22:00 67 22 99 11/29/20 21:45 71 22 100 11/29/20 21:30 62 22 101/56 100 11/29/20 21:00 89 23 94/74 100 11/29/20 20:18 70 12 11/29/20 20:00 97.2 F L 87 12 119/60 98 11/29/20 19:33 98 11/29/20 19:00 95 14 92 L 11/29/20 18:00 89 15 121/47 93 L 11/29/20 17:58 93 L 11/29/20 17:55 84 11/29/20 17:41 82 11/29/20 17:00 98.1 F 79 23 118/59 94 L 11/29/20 16:30 96.6 F L 72 26 H 99/51 96 11/29/20 16:00 96.3 F L 60 22 99 11/29/20 15:30 62 22 100 11/29/20 15:00 95.4 F L 72 22 120/55 95 11/29/20 14:50 64 22 122/59 99 11/29/20 14:40 95.2 F L 65 22 125/61 95 11/29/20 14:31 73 26 H Intake and Output 11/29/20 11/30/20 11/30/20 22:59 06:59 14:59 Intake Total 2898.003 1315.891 403.608 Output Total 983 480 113 Balance 44.347 542.891 290.608 Intake: IV 372 1002 287 0.9 CO/CI 150 180 50 0.9 flush 72 72 27 Albumin Human 5% 250 ml 250 In Empty Bag 1 bag @ 250 mls/hr IVPB Q1HR PRN Rx#: [id number] Lactated Ringers 1,000 ml 150 400 110 @ 30 mls/hr IV .Q24H [facility] Rx#:[id number] Potassium Chloride 10 meq 100 100 In Water For Injection 1 100ml.bag @ 100 mls/hr IVPB Q1H [facility] Rx#: [id number] Intake, IV Titration 655.347 20.891 116.608 Amount ACETAMINOPHEN IV (For NPO 100 ) 1,000 mg In Empty Bag 1 bag @ 400 mls/hr IVPB Q6HR [facility] Rx#:[id number] Clevidipine Butyrate 25 44.000 13.2 26.867 mg In Empty Bag 1 bag @ 1 MG/HR 2 mls/hr IV .Q24H [facility] Rx#:[id number] Insulin Regular 100 unit 6.758 0 2.298 In Sodium Chloride 0.9% 100 ml @ Per Protocol IV .Q0M [facility] Rx#:[id number] Lactated Ringers 1,000 ml 250 @ 30 mls/hr IV .Q24H [facility] Rx#:[id number] Magnesium Sulfate-D5w Pmx 200 1 gm In Dextrose/Water 1 100ml.bag @ 100 mls/hr IVPB Q1H [facility] Rx#: [id number] ceFAZolin 2 gm In Sodium 50 Chloride 0.9% 50 ml @ 100 mls/hr IVPB Q8HR [facility] Rx# :[id number] propofoL 1,000 mg In 4.589 Empty Bag 1 bag @ Titrate IV .Q0M [facility] Rx#: [id number] propofoL 1,000 mg In 7.691 87.443 Empty Bag 1 bag @ Titrate IV .Q0M [facility] Rx#: [id number] Output: Chest Tube Drainage 571 176 20 Chest Tube Left 125 16 0 Chest Tube Mediastinal 191 80 10 Chest Tube Right 255 80 10 Urine 412 304 93 Other: Voiding Method Indwelling Catheter Indwelling Catheter Indwelling Catheter Weight 63.1 kg ABP, PAP, CO, CI - Last 8 Hours Arterial Blood Pressure 132/48 Arterial Blood Pressure 133/50 Arterial Blood Pressure 145/52 Arterial Blood Pressure 139/53 Arterial Blood Pressure 131/53 Arterial Blood Pressure 135/52 Arterial Blood Pressure 138/60 Arterial Blood Pressure 147/53 Arterial Blood Pressure 126/48 Arterial Blood Pressure 125/50 Arterial Blood Pressure 131/51 Arterial Blood Pressure 123/49 Arterial Blood Pressure 121/64 Arterial Blood Pressure 125/70 Arterial Blood Pressure 135/55 Arterial Blood Pressure 127/53 Arterial Blood Pressure 147/56 Arterial Blood Pressure 109/55 Pulmonary Artery Pressure 45/23 Pulmonary Artery Pressure 41/22 Pulmonary Artery Pressure 38/20 Pulmonary Artery Pressure 36/20 Pulmonary Artery Pressure 37/19 Pulmonary Artery Pressure 40/21 Pulmonary Artery Pressure 43/24 Pulmonary Artery Pressure 37/20 Pulmonary Artery Pressure 37/20 Pulmonary Artery Pressure 35/20 Pulmonary Artery Pressure 36/19 Pulmonary Artery Pressure 37/20 Pulmonary Artery Pressure 36/21 Pulmonary Artery Pressure 36/20 Pulmonary Artery Pressure 41/23 Pulmonary Artery Pressure 38/23 Pulmonary Artery Pressure 46/27 Pulmonary Artery Pressure 45/26 Cardiac Output 4.4 Cardiac Output 4.4 Cardiac Output 4.3 Cardiac Index 2.8 Cardiac Index 2.8 Cardiac Index 2.7 Results 11/30/20 03:10 11/30/20 03:10 Cardiac Enzymes 11/29/20 11/30/20 Range/Units 14:45 03:10 AST 19 30 (14-36) U/L Coagulation 11/29/20 Range/Units 14:45 PT 12.7 H (9.0-12.0) sec APTT 27.3 (22.0-30.0) sec CBC 11/29/20 11/29/20 11/30/20 Range/Units 14:45 19:45 03:10 WBC 9.4 15.3 H 10.3 (3.8-10.6) k/uL RBC 3.58 L 3.95 3.42 L (3.80-5.40) m/uL Hgb 11.6 12.5 10.6 L (11.4-16.0) gm/dL Hct 35.7 40.6 33.6 L (34.0-46.0) % Plt Count 171 264 165 (150-450) k/uL Comprehensive Metabolic Panel 11/29/20 11/30/20 Range/Units 14:45 03:10 Sodium 138 135 L (137-145) mmol/L Potassium 4.1 3.7 (3.5-5.1) mmol/L Chloride 108 H 107 (98-107) mmol/L Carbon Dioxide 26 17 L (22-30) mmol/L BUN 15 17 (7-17) mg/dL Creatinine 0.49 L 0.79 (0.52-1.04) mg/dL Glucose 100 H 121 H (74-99) mg/dL Calcium 8.3 L 8.4 (8.4-10.2) mg/dL AST 19 30 (14-36) U/L ALT 11 9 (4-34) U/L Alkaline Phosphatase 51 44 (38-126) U/L Total Protein 5.0 L 4.7 L (6.3-8.2) g/dL Albumin 3.0 L 2.8 L (3.5-5.0) g/dL Current Medications Generic Name Dose Route Start Last Admin Trade Name Freq PRN Reason Stop Dose Admin Hydrocodone Bitart/Acetaminophen 2 each 11/30/20 01:52 Hydrocodone/Apap 5-325mg 1 Each Tab PO Q4HR PRN Severe Pain Hydrocodone Bitart/Acetaminophen 1 each 11/30/20 01:52 Hydrocodone/Apap 5-325mg 1 Each Tab PO Q4HR PRN Moderate Pain Albuterol/Ipratropium 3 ml 11/29/20 14:43 Ipratropium-Albuterol 3 Ml Neb INHALATION RT-Q2H PRN Shortness Of Breath Or Wheezing Albuterol/Ipratropium 3 ml 11/29/20 20:00 11/30/20 08:18 Ipratropium-Albuterol 3 Ml Neb INHALATION 3 ml RT-QID [facility] Administration Aspirin 325 mg 11/30/20 09:00 11/30/20 09:33 Aspirin 325 Mg Tab PO 325 mg DAILY [facility] Administration Atorvastatin Calcium 80 mg 11/29/20 21:00 11/29/20 23:23 Atorvastatin 80 Mg Tab PO Not Given HS [facility] Benzocaine/Menthol 1 each 11/29/20 14:43 Benzocaine/Menthol Lozeng 1 Each Lozenge MUCOUS MEM Q2H PRN Sore Throat Bisacodyl 10 mg 11/30/20 09:00 Bisacodyl 10 Mg Supp RECTAL DAILY PRN Constipation Chlorhexidine Gluconate 15 ml 11/30/20 09:00 11/30/20 09:34 Chlorhexidine Gluconate 15 Ml Cup MUCOUS MEM 15 ml BID [facility] Administration Clopidogrel Bisulfate 75 mg 11/30/20 09:00 11/30/20 09:34 Clopidogrel 75 Mg Tab PO 75 mg DAILY [facility] Administration Furosemide 20 mg 11/30/20 08:00 11/30/20 09:33 Furosemide 10 Mg/Ml 2 Ml Vial IV 20 mg Q8HR [facility] Administration Heparin Sodium (Porcine) 5,000 unit 11/29/20 16:00 11/30/20 09:33 Heparin Sodium,Porcine/Pf 5,000 Unit/0.5 Ml Syringe SQ 5,000 unit Q8HR [facility] Administration Hydralazine HCl 10 mg 11/29/20 14:43 Hydralazine Hcl 20 Mg/Ml 1 Ml Vial IVP Q1H PRN Blood Pressure - High Clevidipine 25 mg/ IV Solution 50 mls @ 2 mls/hr 11/29/20 14:43 11/30/20 09:53 IV 4 mg/hr .Q24H [facility] 8 mls/hr Administration Protocol 1 MG/HR Amiodarone HCl 150 mg/ 103 mls @ 618 mls/hr 11/29/20 14:43 Dextrose/Water IV .Q10M PRN A.FIB/FLUTTER Protocol Amiodarone HCl 360 mg/ 207.2 mls @ 34.533 mls/hr 11/29/20 14:43 Dextrose/Water IV .Q6H PRN A.FIB/FLUTTER Protocol 1 MG/MIN Amiodarone HCl 450 mg/ 250 mls @ 16.667 mls/hr 11/29/20 14:43 Dextrose/Water IV .Q15H PRN A.FIB/FLUTTER Protocol 0.5 MG/MIN Albumin Human 250 ml/ IV 250 mls @ 250 mls/hr 11/29/20 14:43 11/29/20 21:58 Solution IVPB 12/01/20 14:44 250 mls/hr Q1HR PRN Administration For Volume Calcium Gluconate 2 gm/ Sodium 120 mls @ 100 mls/hr 11/29/20 14:43 Chloride IVPB 12/24/20 14:44 ONCE PRN Ionized Calcium less than 4.4 Nitroglycerin/Dextrose 50 mg/ 250 mls @ 1.5 mls/hr 11/29/20 14:43 11/29/20 15:14 IV Solution IV 10 mcg/min .Q24H [facility] 3 mls/hr Administration 5 MCG/MIN Lactated Ringer's 1,000 mls @ 30 mls/hr 11/29/20 14:43 11/30/20 09:35 Lactated Ringers IV Not Given .Q24H [facility] Insulin Human Regular 100 unit 101 mls @ 0 mls/hr 11/29/20 14:43 11/30/20 07:09 / Sodium Chloride IV 0 units/hr .Q0M [facility] 0 mls/hr Titration Protocol Per Protocol Propofol 1,000 mg/ IV Solution 100 mls @ 0 mls/hr 11/29/20 21:30 11/30/20 09:21 IV 0 mcg/kg/min .Q0M [facility] 0 mls/hr Titration Protocol Titrate Ketorolac Tromethamine 15 mg 11/29/20 18:00 11/30/20 05:44 Ketorolac 15 Mg/Ml 1 Ml Vial IVP 12/02/20 15:49 15 mg Q6HR [facility] Administration Magnesium Hydroxide 2,400 mg 11/30/20 09:00 Magnesium Hydroxide 2,400 Mg/10 Ml Cup PO BID PRN Constipation Metoclopramide HCl 10 mg 11/29/20 14:43 Metoclopramide 5 Mg/Ml 2 Ml Vial IVP Q4H PRN Nausea And Vomiting Metoprolol Tartrate 25 mg 11/30/20 09:00 11/30/20 09:34 Metoprolol Tartrate 25 Mg Tab PO 25 mg BID [facility] Administration Miscellaneous Information 1 each 11/29/20 14:43 Potassium Replacement Protocol 1 Each Misc MISCELLANE DAILY PRN Per Protocol Protocol Miscellaneous Information 1 each 11/29/20 14:43 Magnesium Replacement Protocol 1 Each Misc MISCELLANE DAILY PRN Per Protocol Protocol Miscellaneous Information 1 each 11/29/20 14:43 Phosphorus Replacement Protoco 1 Each Misc MISCELLANE DAILY PRN Per Protocol Protocol Ondansetron HCl 4 mg 11/29/20 14:43 Ondansetron 4 Mg/2 Ml Vial IVP Q6HR PRN Nausea And Vomiting Pantoprazole Sodium 40 mg 11/30/20 09:00 11/30/20 09:34 Pantoprazole 40 Mg/10 Ml Vial IVP 40 mg DAILY [facility] Administration Potassium Chloride 20 meq 11/30/20 09:00 11/30/20 09:34 Potassium Chloride Er 20 Meq Tab.Er PO 20 meq BID [facility] Administration Senna/Docusate Sodium 2 each 11/30/20 21:00 Sennosides-Docusate Sodium 1 Each Tab PO HS [facility] Sodium Chloride 10 ml 11/29/20 21:00 11/30/20 09:34 Sodium Chloride 0.9% Flush 10 Ml Syringe IV Not Given BID [facility] Intake and Output 11/29/20 11/30/20 11/30/20 22:59 06:59 14:59 Intake Total 0372.706 5963.891 403.608 Output Total 983 480 113 Balance 44.347 542.891 290.608 Intake: IV 372 1002 287 0.9 CO/CI 150 180 50 0.9 flush 72 72 27 Albumin Human 5% 250 ml 250 In Empty Bag 1 bag @ 250 mls/hr IVPB Q1HR PRN Rx#: [id number] Lactated Ringers 1,000 ml 150 400 110 @ 30 mls/hr IV .Q24H [facility] Rx#:[id number] Potassium Chloride 10 meq 100 100 In Water For Injection 1 100ml.bag @ 100 mls/hr IVPB Q1H [facility] Rx#: [id number] Intake, IV Titration 655.347 20.891 116.608 Amount ACETAMINOPHEN IV (For NPO 100 ) 1,000 mg In Empty Bag 1 bag @ 400 mls/hr IVPB Q6HR [facility] Rx#:[id number] Clevidipine Butyrate 25 44.000 13.2 26.867 mg In Empty Bag 1 bag @ 1 MG/HR 2 mls/hr IV .Q24H [facility] Rx#:[id number] Insulin Regular 100 unit 6.758 0 2.298 In Sodium Chloride 0.9% 100 ml @ Per Protocol IV .Q0M [facility] Rx#:[id number] Lactated Ringers 1,000 ml 250 @ 30 mls/hr IV .Q24H [facility] Rx#:[id number] Magnesium Sulfate-D5w Pmx 200 1 gm In Dextrose/Water 1 100ml.bag @ 100 mls/hr IVPB Q1H [facility] Rx#: [id number] ceFAZolin 2 gm In Sodium 50 Chloride 0.9% 50 ml @ 100 mls/hr IVPB Q8HR [facility] Rx# :[id number] propofoL 1,000 mg In 4.589 Empty Bag 1 bag @ Titrate IV .Q0M [facility] Rx#: [id number] propofoL 1,000 mg In 7.691 87.443 Empty Bag 1 bag @ Titrate IV .Q0M [facility] Rx#: [id number] Output: Chest Tube Drainage 571 176 20 Chest Tube Left 125 16 0 Chest Tube Mediastinal 191 80 10 Chest Tube Right 255 80 10 Urine 412 304 93 Other: Voiding Method Indwelling Catheter Indwelling Catheter Indwelling Catheter Weight 63.1 kg 11/30/20 03:10 11/30/20 03:10
[2020-11-30 11:14] LABS: Glucose,Whole Blood 124 mg/dL (75-99)
[2020-11-30 11:59] LABS: Glucose,Whole Blood 110 mg/dL (75-99)
[2020-11-30 12:11] LABS: ABG Base Excess -1.7 mmol/L; ABG HCO3 23 mmol/L (21-25); ABG Oxygen Saturation 98.4 % (94-97); ABG PCO2 39 mmHg (35-45); ABG PH 7.38 (7.35-7.45); ABG PO2 105 mmHg (83-108); ABG TCO2 25 mmol/L (19-24); Allen Test Performed? Yes
[2020-11-30 13:27] LABS: Glucose,Whole Blood 122 mg/dL (75-99)
[2020-11-30 14:01] LABS: Glucose,Whole Blood 112 mg/dL (75-99)
--- NOTE | 2020-11-30 15:11 | P.CONS ---
History of Present Illness - Reason for Consult Postoperative medical management, management of blood sugars - History of Present Illness Patient is admitted for elective coronary artery bypass surgery patient had BAUTISTA-LAD, SVG-OM and SVG-PDA with ligation of left atrial appendage. Patient was extubated yesterday. Patient has 3 chest tubes 1 left, 1 right and mediastinal chest tube which is still draining. Patient is extubated earlier today. Patient had an echocardiogram which showed an ejection fraction of 40- 45%. Patient is presently on Lasix patient does have bilateral pleural effusion. Patient is on Catapres and nitroglycerin infusion. Patient has a [place] and [place]. [place] will be removed later today. Patient had mildly elevated white blood cell count. Patient also has significant history of progressive disease doesn't smoke presently. Patient doesn't have any history of time despite as patient is only requiring sliding scale insulin did not require any IV insulin at this time. Review of Systems REVIEW OF SYSTEMS: CONSTITUTIONAL: No fever, no malaise, no fatigue. HEENT: No recent visual problems or hearing problems. Denied any sore throat. CARDIOVASCULAR: No chest pain, orthopnea, PND, no palpitations, no syncope. PULMONARY: No shortness of breath, no cough, no hemoptysis. GASTROINTESTINAL: No diarrhea, no nausea, no vomiting, no abdominal pain. NEUROLOGICAL: No headaches, no weakness, no numbness. HEMATOLOGICAL: Denies any bleeding or petechiae. GENITOURINARY: Denies any burning micturition, frequency, or urgency. MUSCULOSKELETAL/RHEUMATOLOGICAL: Denies any joint pain, swelling, or any muscle pain. ENDOCRINE: Denies any polyuria or polydipsia. The rest of the 14-point review of systems is negative. Past Medical History Past Medical History: Coronary Artery Disease (CAD), COPD, Hyperlipidemia, Hypertension, Neurologic Disorder, Osteoarthritis (OA), Skin Disorder, Sleep Apnea/CPAP/BIPAP, Vascular Disorder Additional Past Medical History / Comment(s): mild redness with swelling to joya lower extremities-firm to touch,hx "leaky mitral valve", wound left leg/foot/toes-multiple areas-healed was seen in wound center, [place], occasional use of oxygen for sleep apnea @ 2.5L [place], doesn't use CPAP History of Any Multi-Drug Resistant Organisms: None Reported Past Surgical History: Appendectomy, Breast Surgery, Heart Catheterization, Heart Catheterization With Stent, Tonsillectomy Additional Past Surgical History / Comment(s): joya benign breast biopsy, atherectomy of left common femoral artery,stenting of rt and lt external iliac arteries,stent left SFA,balloon angioplasty of left popliteal artery,angiogram. Past Anesthesia/Blood Transfusion Reactions: No Reported Reaction, Motion Sickness Additional Past Anesthesia/Blood Transfusion Reaction / Comm: no hx blood transfusion Date of Last Stent Placement:: 2009 Smoking Status: Former smoker - Past Family History Father Family Medical History: No Reported History Mother Family Medical History: Cancer Additional Family Medical History / Comment(s): breast and brain Medications and Allergies Home Medications Medication Instructions Recorded Confirmed Type Aspirin [Adult Low Dose Aspirin EC] 81 mg PO DAILY 05/09/20 11/23/20 History Isosorbide Mononitrate ER [Imdur] 30 mg PO DAILY 05/09/20 11/23/20 History Atorvastatin [Lipitor] 80 mg PO HS 08/02/20 11/23/20 History Losartan [Cozaar] 25 mg PO DAILY 08/02/20 11/23/20 History Metoprolol Succinate [Toprol XL] 25 mg PO DAILY 08/02/20 11/23/20 History Ranolazine [Ranexa] 500 mg PO BID 08/02/20 11/23/20 History Furosemide [Lasix] 20 mg PO BID 08/09/20 11/23/20 History Clopidogrel Bisulfate [Plavix] 75 mg PO DAILY #90 tab 08/16/20 11/23/20 Rx Mupirocin 2% Oint [Bactroban 2% 1 applic NASAL BID #1 tube 11/22/20 11/23/20 Rx Oint] Albuterol Inhaler [Ventolin Hfa 1 puff INHALATION RT-QID PRN 11/23/20 11/23/20 History Inhaler] Fluticasone/Umeclidin/Vilanter 1 inhalation INHALATION DAILY 11/23/20 11/23/20 History [Trelegy Ellipta 100-62.5-25] ALPRAZolam [Xanax] 0.25 mg PO DAILY PRN 11/28/20 11/28/20 History Allergies Allergy/AdvReac Type Severity Reaction Status Date / Time sumatriptan [From Imitrex] Allergy Chest Pain Verified 11/23/20 15:00 Physical Exam Vitals: Vital Signs Temp Pulse Pulse Resp BP Pulse Ox 11/30/20 14:00 80 14 100 11/30/20 13:52 78 16 11/30/20 13:00 81 18 98 11/30/20 12:00 99.5 F 80 20 99 11/30/20 11:00 70 15 100 11/30/20 10:00 84 17 100 11/30/20 09:00 84 15 99 11/30/20 08:30 80 14 11/30/20 08:18 86 14 11/30/20 08:00 99.5 F 79 14 100 11/30/20 07:00 79 22 100 11/30/20 06:00 78 22 100 11/30/20 05:45 78 22 112/57 100 11/30/20 05:30 75 22 100 11/30/20 05:15 82 22 112/57 100 11/30/20 05:00 79 22 100 11/30/20 04:45 85 22 100 11/30/20 04:30 79 22 100 11/30/20 04:15 79 22 100 11/30/20 04:00 99.5 F 76 77 22 100 11/30/20 03:45 80 22 100 11/30/20 03:30 74 22 100 11/30/20 03:15 75 22 103/51 100 11/30/20 03:00 78 22 100 11/30/20 02:45 77 22 100 11/30/20 02:30 73 22 100 11/30/20 02:15 77 22 102/47 100 11/30/20 02:00 71 22 100 11/30/20 01:45 75 22 100 11/30/20 01:30 71 22 100 11/30/20 01:15 75 22 104/48 100 11/30/20 01:00 76 22 100 11/30/20 00:45 71 22 100 11/30/20 00:30 70 22 100 11/30/20 00:15 71 22 94/36 100 11/30/20 00:00 65 66 22 92/56 100 11/29/20 23:45 71 22 100 11/29/20 23:30 99.0 F 66 22 100 11/29/20 23:15 66 22 105/56 100 11/29/20 23:00 61 22 100 11/29/20 22:45 69 22 100 11/29/20 22:30 63 22 100 11/29/20 22:15 71 22 80/51 100 11/29/20 22:00 67 22 99 11/29/20 21:45 71 22 100 11/29/20 21:30 62 22 101/56 100 11/29/20 21:00 89 23 94/74 100 11/29/20 20:18 70 12 11/29/20 20:00 97.2 F L 87 12 119/60 98 11/29/20 19:33 98 11/29/20 19:00 95 14 92 L 11/29/20 18:00 89 15 121/47 93 L 11/29/20 17:58 93 L 11/29/20 17:55 84 11/29/20 17:41 82 11/29/20 17:00 98.1 F 79 23 118/59 94 L 11/29/20 16:30 96.6 F L 72 26 H 99/51 96 11/29/20 16:00 96.3 F L 60 22 99 11/29/20 15:30 62 22 100 Intake and Output 11/30/20 11/30/20 11/30/20 06:59 14:59 22:59 Intake Total 1022.891 734.408 Output Total 480 893 Balance 542.891 -158.592 Intake: IV 1002 499 0.9 CO/CI 180 80 0.9 flush 72 69 Albumin Human 5% 250 ml 250 In Empty Bag 1 bag @ 250 mls/hr IVPB Q1HR PRN Rx#: [id number] Lactated Ringers 1,000 ml 400 250 @ 30 mls/hr IV .Q24H MARY ANNE Rx#:[id number] Potassium Chloride 10 meq 100 100 In Water For Injection 1 100ml.bag @ 100 mls/hr IVPB Q1H MARY ANNE Rx#: [id number] Intake, IV Titration 20.891 235.408 Amount Clevidipine Butyrate 25 13.2 26.867 mg In Empty Bag 1 bag @ 1 MG/HR 2 mls/hr IV .Q24H MARY ANNE Rx#:[id number] Insulin Regular 100 unit 0 2.298 In Sodium Chloride 0.9% 100 ml @ Per Protocol IV .Q0M MARY ANNE Rx#:[id number] Nitroglycerin-D5w Pmx 50 68.8 mg In Dextrose/Water 1 250ml.bag @ 5 MCG/MIN 1.5 mls/hr IV .Q24H MARY ANNE Rx#: [id number] ceFAZolin 2 gm In Sodium 50 Chloride 0.9% 50 ml @ 100 mls/hr IVPB Q8HR MARY ANNE Rx# :[id number] propofoL 1,000 mg In 7.691 87.443 Empty Bag 1 bag @ Titrate IV .Q0M MARY ANNE Rx#: [id number] Output: Chest Tube Drainage 176 200 Chest Tube Left 16 10 Chest Tube Mediastinal 80 90 Chest Tube Right 80 100 Urine 304 693 Other: Voiding Method Indwelling Catheter Indwelling Catheter Weight 63.1 kg 63.1 kg ABP, PAP, CO, CI - Last 8 Hours Arterial Blood Pressure 129/52 Arterial Blood Pressure 126/50 Arterial Blood Pressure 130/47 Arterial Blood Pressure 119/43 Arterial Blood Pressure 135/48 Arterial Blood Pressure 132/48 Arterial Blood Pressure 133/50 Pulmonary Artery Pressure 43/21 Pulmonary Artery Pressure 58/17 Pulmonary Artery Pressure 37/16 Pulmonary Artery Pressure 40/17 Pulmonary Artery Pressure 45/23 Pulmonary Artery Pressure 41/22 Cardiac Output 4.6 Cardiac Output 4.4 Cardiac Index 2.5 Cardiac Index 2.8 PHYSICAL EXAMINATION: GENERAL: The patient is alert and oriented x3, not in any acute distress. Well developed, well nourished. HEENT: Pupils are round and equally reacting to light. EOMI. No scleral icterus. No conjunctival pallor. Normocephalic, atraumatic. No pharyngeal erythema. No thyromegaly. Patient has a [place] in place. CARDIOVASCULAR: S1 and S2 present. No murmurs, rubs, or gallops. PULMONARY: Chest is clear to auscultation, no wheezing or crackles. She was as mentioned above ABDOMEN: Soft, nontender, nondistended, normoactive bowel sounds. No palpable organomegaly. MUSCULOSKELETAL: No joint swelling or deformity. EXTREMITIES: No cyanosis, clubbing, or pedal edema. NEUROLOGICAL: Gross neurological examination did not reveal any focal deficits. SKIN: No rashes. Results CBC & Chem 7: 11/30/20 03:10 11/30/20 03:10 Labs: Abnormal Lab Results - Last 24 Hours (Table) 11/22/20 11/29/20 11/29/20 Range/Units 09:00 14:45 14:45 WBC (3.8-10.6) k/uL RBC (3.80-5.40) m/uL Hgb (11.4-16.0) gm/dL Hct (34.0-46.0) % MCV (80.0-100.0) fL MCHC (31.0-37.0) g/dL Neutrophils # (1.3-7.7) k/uL PT 12.7 H (9.0-12.0) sec INR 1.2 H (<1.2) ABG pH (7.35-7.45) ABG pCO2 (35-45) mmHg ABG pO2 (83-108) mmHg ABG Total CO2 (19-24) mmol/L ABG O2 Saturation (94-97) % Sodium (137-145) mmol/L Chloride 108 H (98-107) mmol/L Carbon Dioxide (22-30) mmol/L Creatinine 0.49 L (0.52-1.04) mg/dL Glucose 100 H (74-99) mg/dL POC Glucose (mg/dL) (75-99) mg/dL Calcium 8.3 L (8.4-10.2) mg/dL Magnesium 1.4 L (1.6-2.3) mg/dL Total Protein 5.0 L (6.3-8.2) g/dL Albumin 3.0 L (3.5-5.0) g/dL Crossmatch See Detail 11/29/20 11/29/20 11/29/20 Range/Units 15:06 15:08 16:08 WBC (3.8-10.6) k/uL RBC (3.80-5.40) m/uL Hgb (11.4-16.0) gm/dL Hct (34.0-46.0) % MCV (80.0-100.0) fL MCHC (31.0-37.0) g/dL Neutrophils # (1.3-7.7) k/uL PT (9.0-12.0) sec INR (<1.2) ABG pH (7.35-7.45) ABG pCO2 (35-45) mmHg ABG pO2 310 H (83-108) mmHg ABG Total CO2 (19-24) mmol/L ABG O2 Saturation 100.0 H (94-97) % Sodium (137-145) mmol/L Chloride (98-107) mmol/L Carbon Dioxide (22-30) mmol/L Creatinine (0.52-1.04) mg/dL Glucose (74-99) mg/dL POC Glucose (mg/dL) 117 H 71 L (75-99) mg/dL Calcium (8.4-10.2) mg/dL Magnesium (1.6-2.3) mg/dL Total Protein (6.3-8.2) g/dL Albumin (3.5-5.0) g/dL Crossmatch 11/29/20 11/29/20 11/29/20 Range/Units 16:10 17:13 18:05 WBC (3.8-10.6) k/uL RBC (3.80-5.40) m/uL Hgb (11.4-16.0) gm/dL Hct (34.0-46.0) % MCV (80.0-100.0) fL MCHC (31.0-37.0) g/dL Neutrophils # (1.3-7.7) k/uL PT (9.0-12.0) sec INR (<1.2) ABG pH 7.23 L (7.35-7.45) ABG pCO2 56 H (35-45) mmHg ABG pO2 (83-108) mmHg ABG Total CO2 25 H (19-24) mmol/L ABG O2 Saturation (94-97) % Sodium (137-145) mmol/L Chloride (98-107) mmol/L Carbon Dioxide (22-30) mmol/L Creatinine (0.52-1.04) mg/dL Glucose (74-99) mg/dL POC Glucose (mg/dL) 128 H 139 H (75-99) mg/dL Calcium (8.4-10.2) mg/dL Magnesium (1.6-2.3) mg/dL Total Protein (6.3-8.2) g/dL Albumin (3.5-5.0) g/dL Crossmatch 11/29/20 11/29/20 11/29/20 Range/Units 18:53 19:45 19:51 WBC 15.3 H (3.8-10.6) k/uL RBC (3.80-5.40) m/uL Hgb (11.4-16.0) gm/dL Hct (34.0-46.0) % MCV 102.9 H (80.0-100.0) fL MCHC 30.9 L (31.0-37.0) g/dL Neutrophils # 13.5 H (1.3-7.7) k/uL PT (9.0-12.0) sec INR (<1.2) ABG pH (7.35-7.45) ABG pCO2 (35-45) mmHg ABG pO2 (83-108) mmHg ABG Total CO2 (19-24) mmol/L ABG O2 Saturation (94-97) % Sodium (137-145) mmol/L Chloride (98-107) mmol/L Carbon Dioxide (22-30) mmol/L Creatinine (0.52-1.04) mg/dL Glucose (74-99) mg/dL POC Glucose (mg/dL) 167 H 151 H (75-99) mg/dL Calcium (8.4-10.2) mg/dL Magnesium (1.6-2.3) mg/dL Total Protein (6.3-8.2) g/dL Albumin (3.5-5.0) g/dL Crossmatch 11/29/20 11/29/20 11/29/20 Range/Units 20:18 21:10 21:38 WBC (3.8-10.6) k/uL RBC (3.80-5.40) m/uL Hgb (11.4-16.0) gm/dL Hct (34.0-46.0) % MCV (80.0-100.0) fL MCHC (31.0-37.0) g/dL Neutrophils # (1.3-7.7) k/uL PT (9.0-12.0) sec INR (<1.2) ABG pH 7.06 L* 7.25 L (7.35-7.45) ABG pCO2 89 H* 54 H (35-45) mmHg ABG pO2 64 L 185 H (83-108) mmHg ABG Total CO2 28 H 25 H (19-24) mmol/L ABG O2 Saturation 80.6 L 99.2 H (94-97) % Sodium (137-145) mmol/L Chloride (98-107) mmol/L Carbon Dioxide (22-30) mmol/L Creatinine (0.52-1.04) mg/dL Glucose (74-99) mg/dL POC Glucose (mg/dL) 115 H (75-99) mg/dL Calcium (8.4-10.2) mg/dL Magnesium (1.6-2.3) mg/dL Total Protein (6.3-8.2) g/dL Albumin (3.5-5.0) g/dL Crossmatch 11/29/20 11/29/20 11/30/20 Range/Units 22:57 23:03 02:35 WBC (3.8-10.6) k/uL RBC (3.80-5.40) m/uL Hgb (11.4-16.0) gm/dL Hct (34.0-46.0) % MCV (80.0-100.0) fL MCHC (31.0-37.0) g/dL Neutrophils # (1.3-7.7) k/uL PT (9.0-12.0) sec INR (<1.2) ABG pH 7.47 H (7.35-7.45) ABG pCO2 29 L (35-45) mmHg ABG pO2 110 H (83-108) mmHg ABG Total CO2 (19-24) mmol/L ABG O2 Saturation 99.0 H (94-97) % Sodium (137-145) mmol/L Chloride (98-107) mmol/L Carbon Dioxide (22-30) mmol/L Creatinine (0.52-1.04) mg/dL Glucose (74-99) mg/dL POC Glucose (mg/dL) 101 H 126 H (75-99) mg/dL Calcium (8.4-10.2) mg/dL Magnesium (1.6-2.3) mg/dL Total Protein (6.3-8.2) g/dL Albumin (3.5-5.0) g/dL Crossmatch 11/30/20 11/30/20 11/30/20 Range/Units 03:10 03:10 03:12 WBC (3.8-10.6) k/uL RBC 3.42 L (3.80-5.40) m/uL Hgb 10.6 L (11.4-16.0) gm/dL Hct 33.6 L (34.0-46.0) % MCV (80.0-100.0) fL MCHC (31.0-37.0) g/dL Neutrophils # 8.7 H (1.3-7.7) k/uL PT (9.0-12.0) sec INR (<1.2) ABG pH (7.35-7.45) ABG pCO2 (35-45) mmHg ABG pO2 (83-108) mmHg ABG Total CO2 (19-24) mmol/L ABG O2 Saturation (94-97) % Sodium 135 L (137-145) mmol/L Chloride (98-107) mmol/L Carbon Dioxide 17 L (22-30) mmol/L Creatinine (0.52-1.04) mg/dL Glucose 121 H (74-99) mg/dL POC Glucose (mg/dL) 128 H (75-99) mg/dL Calcium (8.4-10.2) mg/dL Magnesium (1.6-2.3) mg/dL Total Protein 4.7 L (6.3-8.2) g/dL Albumin 2.8 L (3.5-5.0) g/dL Crossmatch 11/30/20 11/30/20 11/30/20 Range/Units 04:36 05:40 06:05 WBC (3.8-10.6) k/uL RBC (3.80-5.40) m/uL Hgb (11.4-16.0) gm/dL Hct (34.0-46.0) % MCV (80.0-100.0) fL MCHC (31.0-37.0) g/dL Neutrophils # (1.3-7.7) k/uL PT (9.0-12.0) sec INR (<1.2) ABG pH 7.50 H (7.35-7.45) ABG pCO2 26 L (35-45) mmHg ABG pO2 139 H (83-108) mmHg ABG Total CO2 (19-24) mmol/L ABG O2 Saturation 99.8 H (94-97) % Sodium (137-145) mmol/L Chloride (98-107) mmol/L Carbon Dioxide (22-30) mmol/L Creatinine (0.52-1.04) mg/dL Glucose (74-99) mg/dL POC Glucose (mg/dL) 123 H 121 H (75-99) mg/dL Calcium (8.4-10.2) mg/dL Magnesium (1.6-2.3) mg/dL Total Protein (6.3-8.2) g/dL Albumin (3.5-5.0) g/dL Crossmatch 11/30/20 11/30/20 11/30/20 Range/Units 07:08 08:12 09:18 WBC (3.8-10.6) k/uL RBC (3.80-5.40) m/uL Hgb (11.4-16.0) gm/dL Hct (34.0-46.0) % MCV (80.0-100.0) fL MCHC (31.0-37.0) g/dL Neutrophils # (1.3-7.7) k/uL PT (9.0-12.0) sec INR (<1.2) ABG pH (7.35-7.45) ABG pCO2 (35-45) mmHg ABG pO2 (83-108) mmHg ABG Total CO2 (19-24) mmol/L ABG O2 Saturation (94-97) % Sodium (137-145) mmol/L Chloride (98-107) mmol/L Carbon Dioxide (22-30) mmol/L Creatinine (0.52-1.04) mg/dL Glucose (74-99) mg/dL POC Glucose (mg/dL) 117 H 116 H 120 H (75-99) mg/dL Calcium (8.4-10.2) mg/dL Magnesium (1.6-2.3) mg/dL Total Protein (6.3-8.2) g/dL Albumin (3.5-5.0) g/dL Crossmatch 11/30/20 11/30/20 11/30/20 Range/Units 09:56 11:13 11:57 WBC (3.8-10.6) k/uL RBC (3.80-5.40) m/uL Hgb (11.4-16.0) gm/dL Hct (34.0-46.0) % MCV (80.0-100.0) fL MCHC (31.0-37.0) g/dL Neutrophils # (1.3-7.7) k/uL PT (9.0-12.0) sec INR (<1.2) ABG pH (7.35-7.45) ABG pCO2 (35-45) mmHg ABG pO2 (83-108) mmHg ABG Total CO2 (19-24) mmol/L ABG O2 Saturation (94-97) % Sodium (137-145) mmol/L Chloride (98-107) mmol/L Carbon Dioxide (22-30) mmol/L Creatinine (0.52-1.04) mg/dL Glucose (74-99) mg/dL POC Glucose (mg/dL) 115 H 124 H 110 H (75-99) mg/dL Calcium (8.4-10.2) mg/dL Magnesium (1.6-2.3) mg/dL Total Protein (6.3-8.2) g/dL Albumin (3.5-5.0) g/dL Crossmatch 11/30/20 11/30/20 11/30/20 Range/Units 12:08 13:26 13:59 WBC (3.8-10.6) k/uL RBC (3.80-5.40) m/uL Hgb (11.4-16.0) gm/dL Hct (34.0-46.0) % MCV (80.0-100.0) fL MCHC (31.0-37.0) g/dL Neutrophils # (1.3-7.7) k/uL PT (9.0-12.0) sec INR (<1.2) ABG pH (7.35-7.45) ABG pCO2 (35-45) mmHg ABG pO2 (83-108) mmHg ABG Total CO2 25 H (19-24) mmol/L ABG O2 Saturation 98.4 H (94-97) % Sodium (137-145) mmol/L Chloride (98-107) mmol/L Carbon Dioxide (22-30) mmol/L Creatinine (0.52-1.04) mg/dL Glucose (74-99) mg/dL POC Glucose (mg/dL) 122 H 112 H (75-99) mg/dL Calcium (8.4-10.2) mg/dL Magnesium (1.6-2.3) mg/dL Total Protein (6.3-8.2) g/dL Albumin (3.5-5.0) g/dL Crossmatch Assessment and Plan Plan: Coronary artery disease status post CABG: Management as per primary service and the patient is presently on Paraflex and nitroglycerin drip nitroglycerin will be weaned off. Continue with the the platelet therapy and a statin. Patient is also on amiodarone drip -Postoperative respiratory failure which resolved and patient is presently extubated -Professor disease -Hypertension -Hyperlipidemia -Mitral regurgitation -COPD without any acute exacerbation at this time -Sleep apnea 11 congestive heart failure chronic systolic dysfunction EF of around 40-40% with mild acute exacerbation patient is on Lasix and continued -Elevated blood sugars in the perioperative period it secondary to the IV drips patient is not diabetic continue with sliding scale insulin.
[2020-11-30] MEDS: HYDROcodone/APAP 5-325MG 1 EACH TAB PO PRN ×2 (15:50→22:19)
[2020-11-30 16:03] LABS: Glucose,Whole Blood 112 mg/dL (75-99)
[2020-11-30] MEDS: METOPROLOL TARTRATE 25 MG TAB PO SCH ×2 (17:58→23:59)
[2020-11-30 18:04] LABS: Glucose,Whole Blood 106 mg/dL (75-99)
[2020-11-30] MEDS: ATORVASTATIN 80 MG TAB PO SCH (20:48)
[2020-11-30] MEDS: SENNOSIDES-DOCUSATE SODIUM 1 EACH TAB PO SCH (20:49)
[2020-11-30 22:12] LABS: Glucose,Whole Blood 96 mg/dL (75-99)
[2020-11-30 23:32] LABS: Glucose,Whole Blood 103 mg/dL (75-99)
[2020-12-01 02:11] LABS: Glucose,Whole Blood 107 mg/dL (75-99)
[2020-12-01 04:41] LABS: Basophils % (A) 0 %; Eosinophils % (A) 0 %; HCT 33.2 % (34.0-46.0); HGB 11.3 gm/dL (11.4-16.0); Lymphocytes # (A) 1.5 k/uL (1.0-4.8); Lymphocytes % (A) 12 %; MCH 33.7 pg (25.0-35.0); MCV 99.2 fL (80.0-100.0); Mean Platelet Volume 9.2; Monocytes # (A) 0.6 k/uL (0-1.0); Monocytes % (A) 5 %; Neutrophils % (A) 82 %; Platelet Count 146 k/uL (150-450); RBC 3.35 m/uL (3.80-5.40); RDW 14.5 % (11.5-15.5); WBC 12.3 k/uL (3.8-10.6)
[2020-12-01 04:59] LABS: Albumin 2.6 g/dL (3.5-5.0); Calcium 8.3 mg/dL (8.4-10.2); Magnesium 2.1 mg/dL (1.6-2.3); Potassium 4.8 mmol/L (3.5-5.1); Total Bilirubin 0.5 mg/dL (0.2-1.3); Total Protein 4.8 g/dL (6.3-8.2)
[2020-12-01] MEDS: KETOROLAC 15 MG/ML 1 ML VIAL IVP SCH (05:09)
[2020-12-01] MEDS: HYDROcodone/APAP 5-325MG 1 EACH TAB PO PRN ×3 (05:09→15:42)
[2020-12-01 05:33] LABS: Glucose,Whole Blood 92 mg/dL (75-99)
[2020-12-01] MEDS: IPRATROPIUM-ALBUTEROL 3 ML NEB INHALATION SCH ×4 (05:58→20:22)
[2020-12-01 07:19] LABS: Glucose,Whole Blood 102 mg/dL (75-99)
--- NOTE | 2020-12-01 07:38 | P.PN ---
Subjective Progress Note Date: 12/01/20 Principal diagnosis: Coronary artery disease. Previous medical history of coronary artery disease with previous stenting to the LAD, hypertension, hyperlipidemia, peripheral jessi rial disease with bilateral iliac stenting and atherectomy of the left superficial femoral artery as well as left lower extremity wounds necessitating debridement in July 2020, previous tobacco dependence, severe COPD with preoperative FEV1 44% of predicted, as needed home oxygen use, obstructive sleep apnea without CPAP use, remote history of pneumonia, multiple sclerosis. POD #2 CABG 3 with free left internal mammary artery to the left anterior descending artery, reverse greater saphenous vein graft to the obtuse marginal artery, reverse greater saphenous vein graft to the posterior descending artery, endovascular vein harvest of the right greater saphenous vein from just below the knee to the groin, ligation of the left atrial appendage with a 40 mm AtriCure clip Postoperative acute blood loss anemia and thrombocytopenia, expected given hemodilution Patient currently sitting up in a recliner in the intensive care unit in no acute distress. She was successfully extubated again yesterday at 12:30. She states pain is controlled on current medication regimen, denies significant shortness of breath. Actively attempting to use incentive spirometry, oxygenating well on 2LPM NC. She remains in sinus rhythm and hemodynamically stable, off Cleveprex. Right internal jugular Cordis, mediastinal/left/right pleural chest tubes all remaining present. She has ambulated out to the hallway this am. No new concerns. Objective - Vital Signs Vital signs: Vital Signs Temp 99.3 F 12/01/20 04:00 Pulse 73 12/01/20 06:12 Resp 12 12/01/20 06:00 BP 145/66 12/01/20 06:00 Pulse Ox 96 12/01/20 06:00 Intake & Output 11/30/20 12/01/20 12/01/20 18:59 06:59 18:59 Intake Total 899.608 332 26 Output Total 1503 845 15 Balance -603.392 -513 11 Weight 63.1 kg 63.7 kg Intake: IV 603 332 26 0.9 CO/CI 80 0.9 flush 93 92 6 Lactated Ringers 1,000 ml 330 240 20 @ 20 mls/hr IV .Q24H [facility] Rx#:[id number] Potassium Chloride 10 meq 100 In Water For Injection 1 100ml.bag @ 100 mls/hr IVPB Q1H [facility] Rx#: [id number] Intake, IV Titration 296.608 Amount Clevidipine Butyrate 25 88.067 mg In Empty Bag 1 bag @ 1 MG/HR 2 mls/hr IV .Q24H [facility] Rx#:[id number] Insulin Regular 100 unit 2.298 In Sodium Chloride 0.9% 100 ml @ Per Protocol IV .Q0M [facility] Rx#:[id number] Nitroglycerin-D5w Pmx 50 68.8 mg In Dextrose/Water 1 250ml.bag @ 5 MCG/MIN 1.5 mls/hr IV .Q24H [facility] Rx#: [id number] ceFAZolin 2 gm In Sodium 50 Chloride 0.9% 50 ml @ 100 mls/hr IVPB Q8HR [facility] Rx# :[id number] propofoL 1,000 mg In 87.443 Empty Bag 1 bag @ Titrate IV .Q0M [facility] Rx#: [id number] Output: Chest Tube Drainage 290 470 Chest Tube Left 20 110 Chest Tube Mediastinal 120 80 Chest Tube Right 150 280 Urine 1213 375 15 Other: Voiding Method Indwelling Catheter Indwelling Catheter ABP, PAP, CO, CI - Last Documented Arterial Blood Pressure 115/88 Pulmonary Artery Pressure 43/21 Cardiac Output 4.6 Cardiac Index 2.5 - Exam CONSTITUTIONAL: Appears comfortable, cooperative, no acute distress RESPIRATORY: Lungs sounds diminished, coarse bilaterally. Respirations even, nonlabored. Currently on 2 LPM NC, oxygen saturation 99%. Only able to achieve 500 mL on her incentive spirometry. Strong cough. CARDIOVASCULAR: S1, S2 present. Regular rate and rhythm, sinus rhythm on telemetry. Sternum stable. Doppler peripheral pulses bilaterally. Generalized edema present. No calf pain or tenderness noted. Heart hugger in place with patient using appropriately. Antiembolism stockings, SCDs present. GASTROINTESTINAL: Abdomen soft, nontender, nondistended. Active bowel sounds present 4 quadrants. Positive flatus GENITOURINARY: Tadeo present draining clear, yellow urine. Output overnight 20-50 mL per hour, 1588 mL in the last 24 hours INTEGUMENTARY: Skin is warm and dry. Anterior chest incision well approximated and covered with dry intact dressing. EVH site well approximated without redness or drainage. NEUROLOGIC: Cranial nerves II through XII intact MUSKULOSKELETAL: Able to move all extremities, strength equal bilaterally PSYCHIATRIC: Alert, appropriate affect INVASIVE LINES AND TUBES: Mediastinal/left/right pleural chest tubes present and connected to wall suction, small rare intermittent air leak present in the mediastinal and left pleural tube, no air leak present right pleural tube. Mediastinal tube with 20 mL serous drainage overnight, 250 mL in the last 24 hours. Left pleural chest tube with 60 mL serous drainage overnight, 300 mL in the last 24 hours. Right pleural chest tube with 190 mL serous drainage overnight, 550 mL in the last 24 hours. Right internal jugular Cordis present. CVP 12-16 overnight, now 5 up in chair. - Allied health notes Allied health notes reviewed: nursing - Labs CBC & Chem 7: 12/01/20 04:08 12/01/20 04:08 Labs: Abnormal Lab Results - Last 24 Hours (Table) 11/30/20 11/30/20 11/30/20 Range/Units 08:12 09:18 09:56 WBC (3.8-10.6) k/uL RBC (3.80-5.40) m/uL Hgb (11.4-16.0) gm/dL Hct (34.0-46.0) % Plt Count (150-450) k/uL Neutrophils # (1.3-7.7) k/uL ABG Total CO2 (19-24) mmol/L ABG O2 Saturation (94-97) % BUN (7-17) mg/dL Creatinine (0.52-1.04) mg/dL POC Glucose (mg/dL) 116 H 120 H 115 H (75-99) mg/dL Calcium (8.4-10.2) mg/dL Total Protein (6.3-8.2) g/dL Albumin (3.5-5.0) g/dL 11/30/20 11/30/20 11/30/20 Range/Units 11:13 11:57 12:08 WBC (3.8-10.6) k/uL RBC (3.80-5.40) m/uL Hgb (11.4-16.0) gm/dL Hct (34.0-46.0) % Plt Count (150-450) k/uL Neutrophils # (1.3-7.7) k/uL ABG Total CO2 25 H (19-24) mmol/L ABG O2 Saturation 98.4 H (94-97) % BUN (7-17) mg/dL Creatinine (0.52-1.04) mg/dL POC Glucose (mg/dL) 124 H 110 H (75-99) mg/dL Calcium (8.4-10.2) mg/dL Total Protein (6.3-8.2) g/dL Albumin (3.5-5.0) g/dL 11/30/20 11/30/20 11/30/20 Range/Units 13:26 13:59 16:02 WBC (3.8-10.6) k/uL RBC (3.80-5.40) m/uL Hgb (11.4-16.0) gm/dL Hct (34.0-46.0) % Plt Count (150-450) k/uL Neutrophils # (1.3-7.7) k/uL ABG Total CO2 (19-24) mmol/L ABG O2 Saturation (94-97) % BUN (7-17) mg/dL Creatinine (0.52-1.04) mg/dL POC Glucose (mg/dL) 122 H 112 H 112 H (75-99) mg/dL Calcium (8.4-10.2) mg/dL Total Protein (6.3-8.2) g/dL Albumin (3.5-5.0) g/dL 11/30/20 11/30/20 12/01/20 Range/Units 18:03 23:31 02:11 WBC (3.8-10.6) k/uL RBC (3.80-5.40) m/uL Hgb (11.4-16.0) gm/dL Hct (34.0-46.0) % Plt Count (150-450) k/uL Neutrophils # (1.3-7.7) k/uL ABG Total CO2 (19-24) mmol/L ABG O2 Saturation (94-97) % BUN (7-17) mg/dL Creatinine (0.52-1.04) mg/dL POC Glucose (mg/dL) 106 H 103 H 107 H (75-99) mg/dL Calcium (8.4-10.2) mg/dL Total Protein (6.3-8.2) g/dL Albumin (3.5-5.0) g/dL 12/01/20 12/01/20 12/01/20 Range/Units 04:08 04:08 07:18 WBC 12.3 H (3.8-10.6) k/uL RBC 3.35 L (3.80-5.40) m/uL Hgb 11.3 L (11.4-16.0) gm/dL Hct 33.2 L (34.0-46.0) % Plt Count 146 L (150-450) k/uL Neutrophils # 10.0 H (1.3-7.7) k/uL ABG Total CO2 (19-24) mmol/L ABG O2 Saturation (94-97) % BUN 22 H (7-17) mg/dL Creatinine 1.12 H (0.52-1.04) mg/dL POC Glucose (mg/dL) 102 H (75-99) mg/dL Calcium 8.3 L (8.4-10.2) mg/dL Total Protein 4.8 L (6.3-8.2) g/dL Albumin 2.6 L (3.5-5.0) g/dL - Imaging and Cardiology Chest x-ray: image reviewed Assessment and Plan Assessment: 1. Coronary artery disease, previous stenting to the LAD, status post three- vessel CABG 2. Hypertension 3. Hyperlipidemia, treated, cholesterol 113, LDL 53 4. Peripheral arterial disease with bilateral iliac stenting and atherectomy of the left superficial femoral artery as well as left lower extremity wounds n ecessitating debridement in July 2020 5. Previous tobacco dependence 6. Severe COPD with preoperative FEV1 44% of predicted 7. As needed home oxygen use 8. Obstructive sleep apnea without CPAP use 9. Remote history of pneumonia 10. Multiple sclerosis 11. Postoperative acute blood loss anemia and thrombocytopenia, expected Plan: 1. Continue aspirin, statin, Plavix, beta patti therapy. Will increase beta blockers as tolerated. Will restart ARB when able, likely tomorrow 2. Wean oxygen as tolerated. Encourage incentive spirometry 10 times every hour while awake. Bronchodilators per pulmonology. 3. Increase activity, ambulate as tolerated. PT/OT/cardiac rehab consulted 4. Will monitor daily labs and x-rays. Electrolyte replacement per protocol. Continue Lasix 20 mg IV push every 8 hours 5. GI/DVT prophylaxis 6. Pain controlled current medication regimen. Toradol DC'd due to increased creatinine 7. Insulin management per primary care service. Patient is not diabetic, preoperative hemoglobin A1c 5% 8. Will discontinue mediastinal chest tube, keep pleural tubes for another 24 hours 9. Establish peripheral IV, dc cordis 10. Continue Tadeo catheter for another 24 hours for strict accurate intake and output. Daily weights 11. Protein powder added to each meal. Patient needs better nutrition status 12. More recommendations to follow Time with Patient: Greater than 30
[2020-12-01] MEDS: FUROSEMIDE 10 MG/ML 2 ML VIAL IV SCH ×2 (08:11→15:39)
[2020-12-01] MEDS: CLOPIDOGREL 75 MG TAB PO SCH (08:11)
[2020-12-01] MEDS: HEPARIN SODIUM,PORCINE/PF 5,000 UNIT/0.5 ML SYRINGE SQ SCH ×2 (08:11→15:39)
[2020-12-01] MEDS: METOPROLOL TARTRATE 25 MG TAB PO SCH ×2 (08:12→15:39)
[2020-12-01] MEDS: MULTIVITAMINS, THERA 1 EACH TAB PO SCH (08:12)
[2020-12-01] MEDS: PANTOPRAZOLE 40 MG TABLET PO SCH (08:12)
[2020-12-01] MEDS: ASPIRIN 325 MG TAB PO SCH (08:12)
--- NOTE | 2020-12-01 08:44 | XR ---
EXAMINATION TYPE: XR chest 1V portable DATE OF EXAM: 12/01/2020 COMPARISON: 11/30/2020 INDICATION: Tube placement, post CABG TECHNIQUE: Single frontal view of the chest is obtained. FINDINGS: The heart size is mildly prominent. The pulmonary vasculature is normal. Left lower lobe infiltrate appears to be present. No pneumothorax is evident. Bilateral chest tubes a re present. Mediastinal tube is present. The endotracheal tube and nasogastric tube. The [place]-Richar catheter is been removed. Sheath on the rig ht remains present. IMPRESSION: 1. Left lower lobe infiltrate. Correlate for atelectasis. 2. Lines and catheters discussed above.
--- NOTE | 2020-12-01 09:17 | PN ---
PROGRESS NOTE Mrs Ayers was extubated yesterday around noontime. She is maintaining sinus rhythm. Appears to be doing well. Hemodynamically stable, not on any pressors. Remains in sinus rhythm. No JVD. S1-S2 heard normally. Short systolic murmur noted. Lungs reveal improved air entry. Abdomen is soft. Lower extremities are diminished pulses. PLAN: Continue incentive spirometry, pulmonary toilet. Continue current medications. Electrolytes appear to be good. MMODL / IJN: [id number] /
--- NOTE | 2020-12-01 10:04 | P.PN ---
Subjective Progress Note Date: 12/01/20 11/30/2020, the patient remains intubated on a mechanical ventilator. She failed extubation yesterday and the patient had to be reintubated. Her weaning parameters once off sedation were adequate. Borderline. The patient was given a spontaneous breathing trial and following that she was extubated. Po stextubation, the patient hypoventilated. She developed respiratory acidosis pH became progressively more lethargic and there was a drop in mentation. The blood gases that was done at that time showed a component of an acute respiratory acidosis. At that point she was given a brief trial of BiPAP following that she was reintubated. This morning, she is on assist control of 22, tidal volume of 450, FiO2 of 40% with a PEEP of 5. Morning blood gases showed a pH of 7.5 with a pCO2 of 26 and pO2 of 139. The chest x-ray from today is showing some postsurgical changes. Chest tubes are all in good location. The patient has a right pleural, left pleural and mediastinal chest tube. ET tube is in a good location. She also has his Oxford-Richar catheter in the right IJ. Cardiac index currently is at 2.6 with a cardiac output of 4.2. She is producing adequate amount of urine output. Pulses are diminished in all 4 extremities mentioned the legs, obtained by Doppler. Mediastinal chest tube output is in order of 300 mL since operation, left pleural chest tube is in order of 20 6 mL and right chest tube is in order 0.25 mL over the past 12 hours. Urine output is in order of 30 mL an hour. Currently the patient is back on propofol which is running at 25 mics per kilogram per minute. O vernight, recently she received volume and she received 5% albumin, 1. She is still on Catapres for blood pressure control which is still running at 4 mg/h. Her blood work today shows a hemoglobin of 10.6. White cell count is at 10.3. Platelet count is at 165. Electrolytes show a component of non-anion gap metabolic acidosis. Serum bicarbs at 17, sodium is at 135 and liver function tests are all within normal limits. She is arousable. She is following some simple commands. She is wiggling her toes and squeezing using her hands had tubes are equal and reactive to light. No facial asymmetry. Positive gag. 2020, the patient is extubated and the patient is currently on oxygen by nasal cannula at 2 L. Doing extremely well. Sitting up on a chair. No respiratory difficulties. Sternum stable clean and intact. No significant pain across the chest. She is using incentive spirometer and the patient is pulling approximately 500 mL. Chest x-ray showing some small effusion and atelectatic changes in lung bases. Chest tubes are still in place and the patient has a right pleural, left lower and mediastinal chest tubes. Output from the chest tubes have been noted. The patient had minimal mediastinal output and for that reason the mediastinal chest tubes have been removed. The patient otherwise is hemodynamically table. She is on no pressors. The Cleviprex drip has been discontinued and pauses the patient's blood pressure is adequate for now. Hemoglobin is 11.3. Platelet count is slightly dropped down to 146. No signs of any bleeding. She is awake and alert. She is following commands and answering questions. She is moving all 4 extremities. She is also tolerating her diet. Her serum bicarbs up to 25. Creatinine is at 1.1. Conservative an acute kidney injury knowing that her baseline creatinine is a lower at 0.49 Objective - Vital Signs Vital signs: Vital Signs Temp 99.3 F 12/01/20 04:00 Pulse 85 12/01/20 09:00 Resp 9 L 12/01/20 09:00 BP 116/55 12/01/20 09:00 Pulse Ox 97 12/01/20 09:00 Intake & Output 11/30/20 12/01/20 12/01/20 18:59 06:59 18:59 Intake Total 899.608 332 169 Output Total 1503 845 45 Balance -603.392 -513 124 Weight 63.1 kg 63.7 kg Intake: IV 603 332 49 0.9 CO/CI 80 0.9 flush 93 92 9 Lactated Ringers 1,000 ml 330 240 40 @ 20 mls/hr IV .Q24H [facility] Rx#:[id number] Potassium Chloride 10 meq 100 In Water For Injection 1 100ml.bag @ 100 mls/hr IVPB Q1H [facility] Rx#: [id number] Intake, IV Titration 296.608 Amount Clevidipine Butyrate 25 88.067 mg In Empty Bag 1 bag @ 1 MG/HR 2 mls/hr IV .Q24H [facility] Rx#:[id number] Insulin Regular 100 unit 2.298 In Sodium Chloride 0.9% 100 ml @ Per Protocol IV .Q0M [facility] Rx#:[id number] Nitroglycerin-D5w Pmx 50 68.8 mg In Dextrose/Water 1 250ml.bag @ 5 MCG/MIN 1.5 mls/hr IV .Q24H [facility] Rx#: [id number] ceFAZolin 2 gm In Sodium 50 Chloride 0.9% 50 ml @ 100 mls/hr IVPB Q8HR [facility] Rx# :[id number] propofoL 1,000 mg In 87.443 Empty Bag 1 bag @ Titrate IV .Q0M [facility] Rx#: [id number] Oral 120 Output: Chest Tube Drainage 290 470 Chest Tube Left 20 110 Chest Tube Mediastinal 120 80 Chest Tube Right 150 280 Urine 1213 375 45 Other: Voiding Method Indwelling Catheter Indwelling Catheter Indwelling Catheter ABP, PAP, CO, CI - Last Documented Arterial Blood Pressure 115/88 Pulmonary Artery Pressure 43/21 Cardiac Output 4.6 Cardiac Index 2.9 - Exam Patient is currently extubated on 2 L of oxygen by nasal cannula Head exam was generally normal. There was no scleral icterus or corneal arcus. Mucous membranes were moist. Neck was supple and without jugular venous distension, thyromegaly, or carotid bruits. Carotids were easily palpable bilaterally. There was no adenopathy. The patient has a right IJ Oxford-Richar catheter in place along with a Cordis. Orotracheal and orogastric tube are both in place. Lungs sounds are diminished bilaterally otherwise clear. Surgical wound site over the anterior chest area is dry clean and intact. The patient has a right pleural, left pleural and mediastinal chest tube. Cardiac exam revealed the PMI to be normally situated and sized. The rhythm was regular and no extrasystoles were noted during several minutes of auscultation. The first and second heart sounds were normal and physiologic splitting of the second heart sound was noted. There were no murmurs, rubs, clicks, or gallops. Abdominal exam revealed normal bowel sounds. The abdomen was soft, non-tender, and without masses, organomegaly, or appreciable enlargement of the abdominal aorta. Extremities are showing diminished pulses. There is no cyanosis or clubbing. There is some mottling in the left thigh. Patient is known to have chronic vascular disease and lower extremities and the pulses are obviously diminished in all 4 extremities. Neurologically the patient is sedated and she is calm and comfortable. Pupils are equal and reactive to light. She is arousable. She is following simple commands. Psychiatric evaluation cannot be done. Examination of the skin revealed no evidence of significant rashes, suspicious appearing nevi or other concerning lesions. - Labs CBC & Chem 7: 12/01/20 04:08 12/01/20 04:08 Labs: Abnormal Lab Results - Last 24 Hours (Table) 11/30/20 11/30/20 11/30/20 Range/Units 09:56 11:13 11:57 WBC (3.8-10.6) k/uL RBC (3.80-5.40) m/uL Hgb (11.4-16.0) gm/dL Hct (34.0-46.0) % Plt Count (150-450) k/uL Neutrophils # (1.3-7.7) k/uL ABG Total CO2 (19-24) mmol/L ABG O2 Saturation (94-97) % BUN (7-17) mg/dL Creatinine (0.52-1.04) mg/dL POC Glucose (mg/dL) 115 H 124 H 110 H (75-99) mg/dL Calcium (8.4-10.2) mg/dL Total Protein (6.3-8.2) g/dL Albumin (3.5-5.0) g/dL 11/30/20 11/30/20 11/30/20 Range/Units 12:08 13:26 13:59 WBC (3.8-10.6) k/uL RBC (3.80-5.40) m/uL Hgb (11.4-16.0) gm/dL Hct (34.0-46.0) % Plt Count (150-450) k/uL Neutrophils # (1.3-7.7) k/uL ABG Total CO2 25 H (19-24) mmol/L ABG O2 Saturation 98.4 H (94-97) % BUN (7-17) mg/dL Creatinine (0.52-1.04) mg/dL POC Glucose (mg/dL) 122 H 112 H (75-99) mg/dL Calcium (8.4-10.2) mg/dL Total Protein (6.3-8.2) g/dL Albumin (3.5-5.0) g/dL 11/30/20 11/30/20 11/30/20 Range/Units 16:02 18:03 23:31 WBC (3.8-10.6) k/uL RBC (3.80-5.40) m/uL Hgb (11.4-16.0) gm/dL Hct (34.0-46.0) % Plt Count (150-450) k/uL Neutrophils # (1.3-7.7) k/uL ABG Total CO2 (19-24) mmol/L ABG O2 Saturation (94-97) % BUN (7-17) mg/dL Creatinine (0.52-1.04) mg/dL POC Glucose (mg/dL) 112 H 106 H 103 H (75-99) mg/dL Calcium (8.4-10.2) mg/dL Total Protein (6.3-8.2) g/dL Albumin (3.5-5.0) g/dL 12/01/20 12/01/20 12/01/20 Range/Units 02:11 04:08 04:08 WBC 12.3 H (3.8-10.6) k/uL RBC 3.35 L (3.80-5.40) m/uL Hgb 11.3 L (11.4-16.0) gm/dL Hct 33.2 L (34.0-46.0) % Plt Count 146 L (150-450) k/uL Neutrophils # 10.0 H (1.3-7.7) k/uL ABG Total CO2 (19-24) mmol/L ABG O2 Saturation (94-97) % BUN 22 H (7-17) mg/dL Creatinine 1.12 H (0.52-1.04) mg/dL POC Glucose (mg/dL) 107 H (75-99) mg/dL Calcium 8.3 L (8.4-10.2) mg/dL Total Protein 4.8 L (6.3-8.2) g/dL Albumin 2.6 L (3.5-5.0) g/dL 12/01/20 Range/Units 07:18 WBC (3.8-10.6) k/uL RBC (3.80-5.40) m/uL Hgb (11.4-16.0) gm/dL Hct (34.0-46.0) % Plt Count (150-450) k/uL Neutrophils # (1.3-7.7) k/uL ABG Total CO2 (19-24) mmol/L ABG O2 Saturation (94-97) % BUN (7-17) mg/dL Creatinine (0.52-1.04) mg/dL POC Glucose (mg/dL) 102 H (75-99) mg/dL Calcium (8.4-10.2) mg/dL Total Protein (6.3-8.2) g/dL Albumin (3.5-5.0) g/dL Assessment and Plan Plan: 1 symptomatic coronary artery disease, multivessel and the patient underwent three-vessel bypass surgery, off pump, currently postop day #2. The patient is currently hemodynamically stable. Extubated following an initial failed extubation. The patient was extubated yesterday without any major difficulties and currently she is on 2 L of oxygen by nasal cannula. 2 post thoracotomy, the patient currently is intubated on a mechanical ventilator and the patient has right pleural, left pleural and mediastinal chest tube. Chest x-ray was noted. Mediastinal chest tubes have been removed. The pleural chest tube will be kept in place for today. 3 severe peripheral vascular disease, post bilateral iliac artery stenting and the patient has undergone previous left superficial femoral artery atherectomy , angioplasty and stenting. 4 hypertension currently on pressor 25 mg by mouth 3 times a day 5 hyperlipidemia 6 history of smoking 7 COPD 8 obstructive sleep apnea without CPAP therapy on outpatient basis 9 history of multiple sclerosis 10 history of recurrent cellulitis of the lower extremity and the patient has had previous nonhealing wounds, none for now. 11 acute kidney injury currently on Lasix Plan Incentive spirometer Drop the FiO2 to maintain a saturation above 90% Monitor hemodynamics mediastinal chest tubes have been removed keep the pleural chest tubes in place Chest x-ray was reviewed will continue to follow
[2020-12-01] MEDS: LACTATED RINGERS 1,000 ML IV SCH (10:38)
[2020-12-01 12:00] LABS: Glucose,Whole Blood 108 mg/dL (75-99)
[2020-12-01] MEDS: INSULIN ASPART (NovoLOG) 100 UNIT/ML VIAL SQ SCH ×3 (14:29→20:28)
--- NOTE | 2020-12-01 14:44 | P.PN ---
Subjective Patient is admitted for elective coronary artery bypass surgery patient had BAUTISTA-LAD, SVG-OM and SVG-PDA with ligation of left atrial appendage. Patient was extubated yesterday. Patient has 3 chest tubes 1 left, 1 right and mediastinal chest tube which is still draining. Patient is extubated earlier today. Patient had an echocardiogram which showed an ejection fraction of 40- 45%. Patient is presently on Lasix patient does have bilateral pleural effusion. Patient is on Catapres and nitroglycerin infusion. Patient has a [place]-Richar and Cordis. [place]-Richar will be removed later today. Patient had mildly elevated white blood cell count. Patient also has significant history of progressive disease doesn't smoke presently. Patient doesn't have any history of time despite as patient is only requiring sliding scale insulin did not require any IV insulin at this time. 12/01/2020 Ring well chest x-ray showing some atelectasis patient still has left and her sed rate chest use mediastinal was removed remains on cleveprex drip. Constitutional: Denied any fatigue denied any fever. Cardio vascular: denied any chest pain, palpitations Gastrointestinal denied any nausea vomiting Pulmonary: Denied any shortness of breath cough Neurologic denied any new focal deficits All inpatient medications were reviewed and appropriate changes in these medications as dictated in the interval history and assessment and plan. Objective - Vital Signs Vital signs: Vital Signs Temp 99.3 F 12/01/20 04:00 Pulse 86 12/01/20 14:00 Resp 13 12/01/20 14:00 BP 108/66 12/01/20 14:00 Pulse Ox 99 12/01/20 14:00 Intake & Output 11/30/20 12/01/20 12/01/20 18:59 06:59 18:59 Intake Total 899.608 332 455 Output Total 1503 845 570 Balance -603.392 -513 -115 Weight 63.1 kg 63.7 kg Intake: IV 603 332 95 0.9 CO/CI 80 0.9 flush 93 92 15 Lactated Ringers 1,000 ml 330 240 80 @ 20 mls/hr IV .Q24H [facility] Rx#:[id number] Potassium Chloride 10 meq 100 In Water For Injection 1 100ml.bag @ 100 mls/hr IVPB Q1H [facility] Rx#: [id number] Intake, IV Titration 296.608 Amount Clevidipine Butyrate 25 88.067 mg In Empty Bag 1 bag @ 1 MG/HR 2 mls/hr IV .Q24H [facility] Rx#:[id number] Insulin Regular 100 unit 2.298 In Sodium Chloride 0.9% 100 ml @ Per Protocol IV .Q0M [facility] Rx#:[id number] Nitroglycerin-D5w Pmx 50 68.8 mg In Dextrose/Water 1 250ml.bag @ 5 MCG/MIN 1.5 mls/hr IV .Q24H [facility] Rx#: [id number] ceFAZolin 2 gm In Sodium 50 Chloride 0.9% 50 ml @ 100 mls/hr IVPB Q8HR [facility] Rx# :[id number] propofoL 1,000 mg In 87.443 Empty Bag 1 bag @ Titrate IV .Q0M [facility] Rx#: [id number] Oral 360 Output: Chest Tube Drainage 290 470 Chest Tube Left 20 110 Chest Tube Mediastinal 120 80 Chest Tube Right 150 280 Urine 1213 375 570 Other: Voiding Method Indwelling Catheter Indwelling Catheter Indwelling Catheter ABP, PAP, CO, CI - Last Documented Arterial Blood Pressure 115/88 Pulmonary Artery Pressure 43/21 Cardiac Output 4.6 Cardiac Index 2.9 - Exam GENERAL: The patient is alert and oriented x3, not in any acute distress. Well developed, well nourished. HEENT: Pupils are round and equally reacting to light. EOMI. No scleral icterus. No conjunctival pallor. Normocephalic, atraumatic. No pharyngeal erythema. No th yromegaly. CARDIOVASCULAR: S1 and S2 present. No murmurs, rubs, or gallops. PULMONARY: Chest is clear to auscultation, no wheezing or crackles. She was as mentioned above ABDOMEN: Soft, nontender, nondistended, normoactive bowel sounds. No palpable organomegaly. MUSCULOSKELETAL: No joint swelling or deformity. EXTREMITIES: No cyanosis, clubbing, or pedal edema. NEUROLOGICAL: Gross neurological examination did not reveal any focal deficits. SKIN: No rashes. - Labs CBC & Chem 7: 12/01/20 04:08 12/01/20 04:08 Labs: Abnormal Lab Results - Last 24 Hours (Table) 11/30/20 11/30/20 11/30/20 Range/Units 16:02 18:03 23:31 WBC (3.8-10.6) k/uL RBC (3.80-5.40) m/uL Hgb (11.4-16.0) gm/dL Hct (34.0-46.0) % Plt Count (150-450) k/uL Neutrophils # (1.3-7.7) k/uL BUN (7-17) mg/dL Creatinine (0.52-1.04) mg/dL POC Glucose (mg/dL) 112 H 106 H 103 H (75-99) mg/dL Calcium (8.4-10.2) mg/dL Total Protein (6.3-8.2) g/dL Albumin (3.5-5.0) g/dL 12/01/20 12/01/20 12/01/20 Range/Units 02:11 04:08 04:08 WBC 12.3 H (3.8-10.6) k/uL RBC 3.35 L (3.80-5.40) m/uL Hgb 11.3 L (11.4-16.0) gm/dL Hct 33.2 L (34.0-46.0) % Plt Count 146 L (150-450) k/uL Neutrophils # 10.0 H (1.3-7.7) k/uL BUN 22 H (7-17) mg/dL Creatinine 1.12 H (0.52-1.04) mg/dL POC Glucose (mg/dL) 107 H (75-99) mg/dL Calcium 8.3 L (8.4-10.2) mg/dL Total Protein 4.8 L (6.3-8.2) g/dL Albumin 2.6 L (3.5-5.0) g/dL 12/01/20 12/01/20 Range/Units 07:18 11:59 WBC (3.8-10.6) k/uL RBC (3.80-5.40) m/uL Hgb (11.4-16.0) gm/dL Hct (34.0-46.0) % Plt Count (150-450) k/uL Neutrophils # (1.3-7.7) k/uL BUN (7-17) mg/dL Creatinine (0.52-1.04) mg/dL POC Glucose (mg/dL) 102 H 108 H (75-99) mg/dL Calcium (8.4-10.2) mg/dL Total Protein (6.3-8.2) g/dL Albumin (3.5-5.0) g/dL Assessment and Plan Plan: Coronary artery disease status post CABG: Management as per primary service and the patient is presently on pracex Continue with the the platelet therapy and a statin. Patient is also on amiodarone . -Postoperative respiratory failure which resolved and patient is presently ext ubated -Professor disease -Hypertension -Hyperlipidemia -Mitral regurgitation -COPD without any acute exacerbation at this time -Sleep apnea 11 congestive heart failure chronic systolic dysfunction EF of around 40-40% with mild acute exacerbation patient is on Lasix and continued -Elevated blood sugars in the perioperative period it secondary to the IV drips patient is not diabetic continue with sliding scale insulin.
[2020-12-01 18:07] LABS: Glucose,Whole Blood 140 mg/dL (75-99)
[2020-12-01 20:28] LABS: Glucose,Whole Blood 126 mg/dL (75-99)
[2020-12-01] MEDS: ATORVASTATIN 80 MG TAB PO SCH (20:34)
[2020-12-01] MEDS: SENNOSIDES-DOCUSATE SODIUM 1 EACH TAB PO SCH (20:34)
[2020-12-02] MEDS: HEPARIN SODIUM,PORCINE/PF 5,000 UNIT/0.5 ML SYRINGE SQ SCH ×4 (00:36→23:41)
[2020-12-02] MEDS: FUROSEMIDE 10 MG/ML 2 ML VIAL IV SCH ×3 (00:37→21:45)
[2020-12-02] MEDS: HYDROcodone/APAP 5-325MG 1 EACH TAB PO PRN ×5 (00:39→21:45)
[2020-12-02] MEDS: METOPROLOL TARTRATE 25 MG TAB PO SCH ×3 (01:49→16:39)
[2020-12-02 05:06] LABS: Basophils % (A) 0 %; Eosinophils # (A) 0.2 k/uL (0-0.7); Eosinophils % (A) 2 %; HCT 33.9 % (34.0-46.0); HGB 10.7 gm/dL (11.4-16.0); Lymphocytes # (A) 1.7 k/uL (1.0-4.8); Lymphocytes % (A) 15 %; MCH 31.1 pg (25.0-35.0); MCHC 31.5 g/dL (31.0-37.0); MCV 98.7 fL (80.0-100.0); Mean Platelet Volume 9.5; Monocytes # (A) 0.4 k/uL (0-1.0); Monocytes % (A) 4 %; Neutrophils # (A) 8.5 k/uL (1.3-7.7); Neutrophils % (A) 78 %; Platelet Count 172 k/uL (150-450); RBC 3.44 m/uL (3.80-5.40); RDW 14.7 % (11.5-15.5)
[2020-12-02 05:37] LABS: Albumin 2.5 g/dL (3.5-5.0); Calcium 8.4 mg/dL (8.4-10.2); Total Bilirubin 0.6 mg/dL (0.2-1.3); Total Protein 4.6 g/dL (6.3-8.2)
[2020-12-02 06:46] LABS: Glucose,Whole Blood 89 mg/dL (75-99)
[2020-12-02] MEDS: PANTOPRAZOLE 40 MG TABLET PO SCH (06:51)
[2020-12-02] MEDS: INSULIN ASPART (NovoLOG) 100 UNIT/ML VIAL SQ SCH ×4 (06:51→21:46)
[2020-12-02] MEDS: IPRATROPIUM-ALBUTEROL 3 ML NEB INHALATION SCH ×4 (06:53→19:10)
--- NOTE | 2020-12-02 07:37 | P.PN ---
Subjective Progress Note Date: 12/02/20 Principal diagnosis: Coronary artery disease. Previous medical history of coronary artery disease with previous stenting to the LAD, hypertension, hyperlipidemia, peripheral jessi rial disease with bilateral iliac stenting and atherectomy of the left superficial femoral artery as well as left lower extremity wounds necessitating debridement in July 2020, previous tobacco dependence, severe COPD with preoperative FEV1 44% of predicted, as needed home oxygen use, obstructive sleep apnea without CPAP use, remote history of pneumonia, multiple sclerosis. POD #3 CABG 3 with free left internal mammary artery to the left anterior descending artery, reverse greater saphenous vein graft to the obtuse marginal artery, reverse greater saphenous vein graft to the posterior descending artery, endovascular vein harvest of the right greater saphenous vein from just below the knee to the groin, ligation of the left atrial appendage with a 40 mm AtriCure clip Postoperative acute blood loss anemia and thrombocytopenia, expected given hemodilution Patient currently sitting up in a recliner in the intensive care unit in no acute distress. She states pain is controlled on current medication regimen, denies significant shortness of breath. Actively attempting to use incentive spirometry although only achieving 500 mL, oxygenating well on 2LPM NC. She remains in sinus rhythm and hemodynamically stable. Left/right pleural chest tubes remainin present. She has ambulated out in the hallway several times yesterday and this morning. No new concerns. Objective - Vital Signs Vital signs: Vital Signs Temp 98.1 F 12/02/20 00:00 Pulse 84 12/02/20 07:00 Resp 25 H 12/02/20 07:00 BP 130/74 12/02/20 07:00 Pulse Ox 100 12/02/20 07:00 Intake & Output 12/01/20 12/02/20 12/02/20 18:59 06:59 18:59 Intake Total 695 200 75 Output Total 1120 930 35 Balance -425 -730 40 Weight 63 kg Intake: IV 95 0.9 flush 15 Lactated Ringers 1,000 ml 80 @ 20 mls/hr IV .Q24H [facility] Rx#:[id number] Oral 600 200 75 Output: Chest Tube Drainage 150 235 Chest Tube Left 60 150 Chest Tube Right 90 85 Urine 970 695 35 Other: Voiding Method Indwelling Catheter Indwelling Catheter ABP, PAP, CO, CI - Last Documented Arterial Blood Pressure 115/88 Pulmonary Artery Pressure 43/21 Cardiac Output 4.6 Cardiac Index 2.9 - Exam CONSTITUTIONAL: Appears comfortable, cooperative, no acute distress RESPIRATORY: Lungs sounds diminished bilaterally. Respirations even, nonlabored. Currently on 2 LPM NC, oxygen saturation 98%, 93-94% on room air. Only able to achieve 500 mL on her incentive spirometry. Strong cough. CARDIOVASCULAR: S1, S2 present. Regular rate and rhythm, sinus rhythm on telemetry. Sternum stable. Doppler peripheral pulses bilaterally. Trace edema present. No calf pain or tenderness noted. Heart hugger in place with patient using appropriately. Antiembolism stockings, SCDs present. GASTROINTESTINAL: Abdomen soft, nontender, nondistended. Active bowel sounds present 4 quadrants. Positive flatus GENITOURINARY: Tadeo present draining clear, yellow urine. Output overnight 25-60 mL per hour, 1665 mL in the last 24 hours INTEGUMENTARY: Skin is warm and dry. Anterior chest incision well approximated and covered with dry intact dressing. EVH site well approximated without redness or drainage. NEUROLOGIC: Cranial nerves II through XII intact MUSKULOSKELETAL: Able to move all extremities, strength equal bilaterally PSYCHIATRIC: Alert, oriented to person, place and time, appropriate affect INVASIVE LINES AND TUBES: Left/right pleural chest tubes present and connected to wall suction, no air leaks present. Left pleural chest tube with 150 mL serous drainage overnight, 400 mL in the last 24 hours. Right pleural chest tube with 75 mL serous drainage overnight, 300 mL in the last 24 hours. - Allied health notes Allied health notes reviewed: nursing - Labs CBC & Chem 7: 12/02/20 04:42 12/02/20 04:42 Labs: Abnormal Lab Results - Last 24 Hours (Table) 12/01/20 12/01/20 12/01/20 Range/Units 11:59 18:05 20:27 WBC (3.8-10.6) k/uL RBC (3.80-5.40) m/uL Hgb (11.4-16.0) gm/dL Hct (34.0-46.0) % Neutrophils # (1.3-7.7) k/uL Sodium (137-145) mmol/L BUN (7-17) mg/dL Glucose (74-99) mg/dL POC Glucose (mg/dL) 108 H 140 H 126 H (75-99) mg/dL Total Protein (6.3-8.2) g/dL Albumin (3.5-5.0) g/dL 12/02/20 12/02/20 Range/Units 04:42 04:42 WBC 11.0 H (3.8-10.6) k/uL RBC 3.44 L (3.80-5.40) m/uL Hgb 10.7 L (11.4-16.0) gm/dL Hct 33.9 L (34.0-46.0) % Neutrophils # 8.5 H (1.3-7.7) k/uL Sodium 135 L (137-145) mmol/L BUN 27 H (7-17) mg/dL Glucose 107 H (74-99) mg/dL POC Glucose (mg/dL) (75-99) mg/dL Total Protein 4.6 L (6.3-8.2) g/dL Albumin 2.5 L (3.5-5.0) g/dL - Imaging and Cardiology Chest x-ray: image reviewed Assessment and Plan Assessment: 1. Coronary artery disease, previous stenting to the LAD, status post three- vessel CABG 2. Hypertension 3. Hyperlipidemia, treated, cholesterol 113, LDL 53 4. Peripheral arterial disease with bilateral iliac stenting and atherectomy of the left superficial femoral artery as well as left lower extremity wounds necessitating debridement in July 2020 5. Previous tobacco dependence 6. Severe COPD with preoperative FEV1 44% of predicted 7. As needed home oxygen use 8. Obstructive sleep apnea without CPAP use 9. Remote history of pneumonia 10. Multiple sclerosis 11. Postoperative acute blood loss anemia and thrombocytopenia, expected Plan: 1. Continue aspirin, statin, Plavix, beta patti therapy. Will increase beta blockers as tolerated. Will restart low dose ARB today 2. Wean oxygen as tolerated. Encourage incentive spirometry 10 times every hour while awake. Bronchodilators per pulmonology. 3. Increase activity, ambulate as tolerated. PT/OT/cardiac rehab consulted 4. Will monitor daily labs and x-rays. Electrolyte replacement per protocol. Decrease Lasix 20 mg IV push twice daily 5. GI/DVT prophylaxis 6. Pain controlled current medication regimen. 7. Insulin management per primary care service. Patient is not diabetic, preoperative hemoglobin A1c 5% 8. Will discontinue pleural chest tubes 9. Discontinue Tadeo catheter. May bladder scan and straight cath for >300 mL residual. 10. Strict accurate intake and output. Daily weights 11. Protein powder added to each meal. Patient needs improved nutrition status 12. Will place transfer orders for 3 south cardiac step-down, may transfer when bed available 13. More recommendations to follow Time with Patient: Greater than 30
--- NOTE | 2020-12-02 08:05 | XR ---
EXAMINATION TYPE: XR chest 1V portable DATE OF EXAM: 12/02/2020 COMPARISON: 12/01/2020 INDICATION: Line catheter placement TECHNIQUE: Single frontal view of the chest is obtained. FINDINGS: The heart size is enlarged. The pulmonary vasculature is normal. Mild nonspecific lung markings are present. Mild infiltrate is at the left base may have mild improve ment. Bilateral chest tubes are present. A small left pneumothorax is present. IMPRESSION: 1. Small left apical pneumothorax. 2. Diffuse increased lung markings greatest at the left base, stable from comparison
[2020-12-02] MEDS: MULTIVITAMINS, THERA 1 EACH TAB PO SCH (08:40)
[2020-12-02] MEDS: CLOPIDOGREL 75 MG TAB PO SCH (08:40)
[2020-12-02] MEDS: ASPIRIN 325 MG TAB PO SCH (08:40)
[2020-12-02] MEDS: LOSARTAN 25 MG TAB PO SCH (08:41)
--- NOTE | 2020-12-02 08:46 | P.PN ---
Subjective Progress Note Date: 12/02/20 11/30/2020, the patient remains intubated on a mechanical ventilator. She failed extubation yesterday and the patient had to be reintubated. Her weaning parameters once off sedation were adequate. Borderline. The patient was given a spontaneous breathing trial and following that she was extubated. Po stextubation, the patient hypoventilated. She developed respiratory acidosis pH became progressively more lethargic and there was a drop in mentation. The blood gases that was done at that time showed a component of an acute respiratory acidosis. At that point she was given a brief trial of BiPAP following that she was reintubated. This morning, she is on assist control of 22, tidal volume of 450, FiO2 of 40% with a PEEP of 5. Morning blood gases showed a pH of 7.5 with a pCO2 of 26 and pO2 of 139. The chest x-ray from today is showing some postsurgical changes. Chest tubes are all in good location. The patient has a right pleural, left pleural and mediastinal chest tube. ET tube is in a good location. She also has his [place]-Richar catheter in the right IJ. Cardiac index currently is at 2.6 with a cardiac output of 4.2. She is producing adequate amount of urine output. Pulses are diminished in all 4 extremities mentioned the legs, obtained by Doppler. Mediastinal chest tube output is in order of 300 mL since operation, left pleural chest tube is in order of 20 6 mL and right chest tube is in order 0.25 mL over the past 12 hours. Urine output is in order of 30 mL an hour. Currently the patient is back on propofol which is running at 25 mics per kilogram per minute. O vernight, recently she received volume and she received 5% albumin, 1. She is still on Catapres for blood pressure control which is still running at 4 mg/h. Her blood work today shows a hemoglobin of 10.6. White cell count is at 10.3. Platelet count is at 165. Electrolytes show a component of non-anion gap metabolic acidosis. Serum bicarbs at 17, sodium is at 135 and liver function tests are all within normal limits. She is arousable. She is following some simple commands. She is wiggling her toes and squeezing using her hands had tubes are equal and reactive to light. No facial asymmetry. Positive gag. 2020, the patient is extubated and the patient is currently on oxygen by nasal cannula at 2 L. Doing extremely well. Sitting up on a chair. No respiratory difficulties. Sternum stable clean and intact. No significant pain across the chest. She is using incentive spirometer and the patient is pulling approximately 500 mL. Chest x-ray showing some small effusion and atelectatic changes in lung bases. Chest tubes are still in place and the patient has a right pleural, left lower and mediastinal chest tubes. Output from the chest tubes have been noted. The patient had minimal mediastinal output and for that reason the mediastinal chest tubes have been removed. The patient otherwise is hemodynamically table. She is on no pressors. The Cleviprex drip has been discontinued and pauses the patient's blood pressure is adequate for now. Hemoglobin is 11.3. Platelet count is slightly dropped down to 146. No signs of any bleeding. She is awake and alert. She is following commands and answering questions. She is moving all 4 extremities. She is also tolerating her diet. Her serum bicarbs up to 25. Creatinine is at 1.1. Conservative an acute kidney injury knowing that her baseline creatinine is a lower at 0.49 The patient is seen today 12/02/2020 and follow-up in the intensive care unit. She is currently sitting up in a chair at the bedside. Awake and alert in no acute distress. She is maintaining good O2 saturations in the 90s on room air. Afebrile. Hemodynamically stable. Chest x-ray reveals small left apical pneumothorax. Diffuse increased lung markings greater on the left. Stable compared to previous. Right and left sided chest tubes remain with approximate 100 ML's out. She's only pulling approximately 500 ML's on her incentive spirometer. She needs increased encouragement regarding the use. Cordis has been removed. White count 11.0. Hemoglobin 10.7. Sodium 135. Potassium 4.0. Creatinine 0.97. He is receiving Lasix 20 mg IV push twice a day. Heparin for DVT prophylaxis. Tenex for GI prophylaxis. She has been up ambulating in the alcantar with assistance. Objective - Vital Signs Vital signs: Vital Signs Temp 98.1 F 12/02/20 00:00 Pulse 84 12/02/20 07:00 Resp 25 H 12/02/20 08:00 BP 130/74 12/02/20 07:00 Pulse Ox 100 12/02/20 07:00 Intake & Output 12/01/20 12/02/20 12/02/20 18:59 06:59 18:59 Intake Total 695 200 75 Output Total 1120 930 35 Balance -425 -730 40 Weight 63 kg Intake: IV 95 0.9 flush 15 Lactated Ringers 1,000 ml 80 @ 20 mls/hr IV .Q24H [facility] Rx#:[id number] Oral 600 200 75 Output: Chest Tube Drainage 150 235 Chest Tube Left 60 150 Chest Tube Right 90 85 Urine 970 695 35 Other: Voiding Method Indwelling Catheter Indwelling Catheter Indwelling Catheter ABP, PAP, CO, CI - Last Documented Arterial Blood Pressure 115/88 Pulmonary Artery Pressure 43/21 Cardiac Output 4.6 Cardiac Index 2.9 - Exam Alert pleasant 75-year-old female patient, up in a chair at the bedside, currently on room air. Head exam was generally normal. There was no scleral icterus or corneal arcus. Mucous membranes were moist. Neck was supple and without jugular venous distension, thyromegaly, or carotid bruits. Carotids were easily palpable bilaterally. There was no adenopathy. [place]/cordis is removed Lungs sounds are diminished bilaterally otherwise clear. Surgical wound site over the anterior chest area is dry clean and intact. The patient has a right pleural, left pleural chest tubes. Cardiac exam revealed the PMI to be normally situated and sized. The rhythm was regular and no extrasystoles were noted during several minutes of auscultation. The first and second heart sounds were normal and physiologic splitting of the second heart sound was noted. There were no murmurs, rubs, clicks, or gallops. Abdominal exam revealed normal bowel sounds. The abdomen was soft, non-tender, and without masses, organomegaly, or appreciable enlargement of the abdominal aorta. Extremities are showing diminished pulses. There is no cyanosis or clubbing. There is some mottling in the left thigh. Patient is known to have chronic vascular disease and lower extremities and the pulses are obviously diminished in all 4 extremities. Neurologically the patient is sedated and she is calm and comfortable. Pupils are equal and reactive to light. She is arousable. She is following simple commands. Psychiatric evaluation cannot be done. Examination of the skin revealed no evidence of significant rashes, suspicious appearing nevi or other concerning lesions. - Labs CBC & Chem 7: 12/02/20 04:42 12/02/20 04:42 Labs: Abnormal Lab Results - Last 24 Hours (Table) 12/01/20 12/01/20 12/01/20 Range/Units 11:59 18:05 20:27 WBC (3.8-10.6) k/uL RBC (3.80-5.40) m/uL Hgb (11.4-16.0) gm/dL Hct (34.0-46.0) % Neutrophils # (1.3-7.7) k/uL Sodium (137-145) mmol/L BUN (7-17) mg/dL Glucose (74-99) mg/dL POC Glucose (mg/dL) 108 H 140 H 126 H (75-99) mg/dL Total Protein (6.3-8.2) g/dL Albumin (3.5-5.0) g/dL 12/02/20 12/02/20 Range/Units 04:42 04:42 WBC 11.0 H (3.8-10.6) k/uL RBC 3.44 L (3.80-5.40) m/uL Hgb 10.7 L (11.4-16.0) gm/dL Hct 33.9 L (34.0-46.0) % Neutrophils # 8.5 H (1.3-7.7) k/uL Sodium 135 L (137-145) mmol/L BUN 27 H (7-17) mg/dL Glucose 107 H (74-99) mg/dL POC Glucose (mg/dL) (75-99) mg/dL Total Protein 4.6 L (6.3-8.2) g/dL Albumin 2.5 L (3.5-5.0) g/dL Assessment and Plan Assessment: 1 symptomatic coronary artery disease, multivessel and the patient underwent three-vessel bypass surgery, off pump, currently postop day #3. The patient is currently hemodynamically stable. Extubated following an initial failed extubation. The patient was extubated yesterday without any major difficulties and currently she is on room air. 2 post thoracotomy, the patient currently is intubated on a mechanical ventilator and the patient has right pleural, left pleural chest tubes. Chest x-ray was noted. 3 severe peripheral vascular disease, post bilateral iliac artery stenting and the patient has undergone previous left superficial femoral artery atherectomy , angioplasty and stenting. 4 hypertension currently on lopressor 25 mg by mouth 3 times a day 5 hyperlipidemia 6 history of smoking 7 COPD on home oxygen at 2.5 L/m 8 obstructive sleep apnea without CPAP therapy on outpatient basis 9 history of multiple sclerosis 10 history of recurrent cellulitis of the lower extremity and the patient has had previous nonhealing wounds, none for now. 11 acute kidney injury currently on Lasix Plan The patient was seen and evaluated by Dr. Travis Chest x-ray and labs reviewed Encouraged increased use the incentive spirometer and cough and deep breathing exercises Remains on Lasix 20 mg IVP every 12 hours Increase her activity as tolerated We will continue to follow
[2020-12-02 10:54] LABS: Glucose,Whole Blood 112 mg/dL (75-99)
--- NOTE | 2020-12-02 12:59 | PN ---
PROGRESS NOTE Mrs. Ayers is in sinus rhythm, status post bypass surgery, doing remarkably well. Today she is improving with her effort on the incentive spirometry. Vital signs stable. S1-S2 heard normally. No rub. Lungs reveal improved air entry. Abdomen is soft. Lower extremities reveal diminished pulses. Rest of physical exam unchanged. MMODL / IJN: [id number] /
[2020-12-02] MEDS ORDERED: ACETAMINOPHEN TAB 325 MG TAB PO PRN (13:13)
--- NOTE | 2020-12-02 14:14 | P.PN ---
Subjective Patient is admitted for elective coronary artery bypass surgery patient had BAUTISTA-LAD, SVG-OM and SVG-PDA with ligation of left atrial appendage. Patient was extubated yesterday. Patient has 3 chest tubes 1 left, 1 right and mediastinal chest tube which is still draining. Patient is extubated earlier today. Patient had an echocardiogram which showed an ejection fraction of 40- 45%. Patient is presently on Lasix patient does have bilateral pleural effusion. Patient is on Catapres and nitroglycerin infusion. Patient has a Hyannis-Richar and Cordis. Hyannis-Richar will be removed later today. Patient had mildly elevated white blood cell count. Patient also has significant history of progressive disease doesn't smoke presently. Patient doesn't have any history of time despite as patient is only requiring sliding scale insulin did not require any IV insulin at this time. 12/01/2020 Ring well chest x-ray showing some atelectasis patient still has left and her sed rate chest use mediastinal was removed remains on cleveprex drip. 12/02/2020 Patient is off all drips patient chest tubes are out. Patient is clinically doing well chest x-rays showed a very small apical pneumothorax on the left. Patient does have increased interstitial markings patient has mild wheezing and exam LAD Pulmicort. Creatinine is 0.97 visit patient is presently receiving Lasix 20 mg IV twice a day. Patient is already on DuoNeb treatments. Constitutional: Denied any fatigue denied any fever. Cardio vascular: denied any chest pain, palpitations Gastrointestinal denied any nausea vomiting Pulmonary: Denied any shortness of breath cough Neurologic denied any new focal deficits All inpatient medications were reviewed and appropriate changes in these medications as dictated in the interval history and assessment and plan. Objective - Vital Signs Vital signs: Vital Signs Temp 98.0 F 12/02/20 12:00 Pulse 89 12/02/20 13:04 Resp 18 12/02/20 13:04 BP 116/56 12/02/20 13:04 Pulse Ox 97 12/02/20 13:04 Intake & Output 12/01/20 12/02/20 12/02/20 18:59 06:59 18:59 Intake Total 695 200 675 Output Total 1120 930 485 Balance -425 -730 190 Weight 63 kg Intake: IV 95 0.9 flush 15 Lactated Ringers 1,000 ml 80 @ 20 mls/hr IV .Q24H [facility] Rx#:[id number] Oral 600 200 675 Output: Chest Tube Drainage 150 235 Chest Tube Left 60 150 Chest Tube Right 90 85 Urine 970 695 485 Other: Voiding Method Indwelling Catheter Indwelling Catheter Bedside Commode ABP, PAP, CO, CI - Last Documented Arterial Blood Pressure 115/88 Pulmonary Artery Pressure 43/21 Cardiac Output 4.6 Cardiac Index 2.9 - Exam GENERAL: The patient is alert and oriented x3, not in any acute distress. Well developed, well nourished. HEENT: Pupils are round and equally reacting to light. EOMI. No scleral icterus. No conjunctival pallor. Normocephalic, atraumatic. No pharyngeal erythema. No thyromegaly. CARDIOVASCULAR: S1 and S2 present. No murmurs, rubs, or gallops. PULMONARY: Mild expiratory wheezing on exam fairly good air entry into bilateral lung howard ABDOMEN: Soft, nontender, nondistended, normoactive bowel sounds. No palpable organomegaly. MUSCULOSKELETAL: No joint swelling or deformity. EXTREMITIES: No cyanosis, clubbing, or pedal edema. NEUROLOGICAL: Gross neurological examination did not reveal any focal deficits. SKIN: No rashes. - Labs CBC & Chem 7: 12/02/20 04:42 12/02/20 04:42 Labs: Abnormal Lab Results - Last 24 Hours (Table) 12/01/20 12/01/20 12/02/20 Range/Units 18:05 20:27 04:42 WBC 11.0 H (3.8-10.6) k/uL RBC 3.44 L (3.80-5.40) m/uL Hgb 10.7 L (11.4-16.0) gm/dL Hct 33.9 L (34.0-46.0) % Neutrophils # 8.5 H (1.3-7.7) k/uL Sodium (137-145) mmol/L BUN (7-17) mg/dL Glucose (74-99) mg/dL POC Glucose (mg/dL) 140 H 126 H (75-99) mg/dL Total Protein (6.3-8.2) g/dL Albumin (3.5-5.0) g/dL 12/02/20 12/02/20 Range/Units 04:42 10:53 WBC (3.8-10.6) k/uL RBC (3.80-5.40) m/uL Hgb (11.4-16.0) gm/dL Hct (34.0-46.0) % Neutrophils # (1.3-7.7) k/uL Sodium 135 L (137-145) mmol/L BUN 27 H (7-17) mg/dL Glucose 107 H (74-99) mg/dL POC Glucose (mg/dL) 112 H (75-99) mg/dL Total Protein 4.6 L (6.3-8.2) g/dL Albumin 2.5 L (3.5-5.0) g/dL Assessment and Plan Plan: Coronary artery disease status post CABG: Postoperative day 3 Management as per primary service and patient does have some pulmonary edema for which patient on IV Lasix -Postoperative respiratory failure which resolved -Coronary artery and peripheral vascular disease -Hypertension -Hyperlipidemia -Mitral regurgitation -COPD mild acute exacerbation patient will be stressed started on inhaled steroids continue with the inhalational treatments. -Sleep apnea 11 congestive heart failure chronic systolic dysfunction EF of around 40-40% with mild acute exacerbation patient is on Lasix and continued -Elevated blood sugars in the perioperative period it secondary to the IV drips patient is not diabetic continue with sliding scale insulin.
[2020-12-02 16:39] LABS: Glucose,Whole Blood 142 mg/dL (75-99)
[2020-12-02] MEDS: DEXTROSE 5% IN WATER 100 ML with AMIODARONE 150 MG IV ONE (18:06)
[2020-12-02 19:08] LABS: Glucose,Whole Blood 223 mg/dL (75-99)
[2020-12-02] MEDS: BUDESONIDE 0.5 MG/2 ML NEBU INHALATION SCH (19:11)
[2020-12-02] MEDS: SENNOSIDES-DOCUSATE SODIUM 1 EACH TAB PO SCH (21:44)
[2020-12-02] MEDS: ATORVASTATIN 80 MG TAB PO SCH (21:49)
[2020-12-03] MEDS: METOPROLOL TARTRATE 25 MG TAB PO SCH ×3 (02:30→17:03)
[2020-12-03 06:22] LABS: Glucose,Whole Blood 121 mg/dL (75-99)
[2020-12-03] MEDS: PANTOPRAZOLE 40 MG TABLET PO SCH (06:46)
[2020-12-03] MEDS: HYDROcodone/APAP 5-325MG 1 EACH TAB PO PRN ×3 (06:54→18:34)
--- NOTE | 2020-12-03 08:00 | P.PN ---
Subjective Progress Note Date: 12/03/20 Principal diagnosis: Coronary artery disease. Previous medical history of coronary artery disease with previous stenting to the LAD, hypertension, hyperlipidemia, peripheral jessi rial disease with bilateral iliac stenting and atherectomy of the left superficial femoral artery as well as left lower extremity wounds necessitating debridement in July 2020, previous tobacco dependence, severe COPD with preoperative FEV1 44% of predicted, as needed home oxygen use, obstructive sleep apnea without CPAP use, remote history of pneumonia, multiple sclerosis. POD #4 CABG 3 with free left internal mammary artery to the left anterior descending artery, reverse greater saphenous vein graft to the obtuse marginal artery, reverse greater saphenous vein graft to the posterior descending artery, endovascular vein harvest of the right greater saphenous vein from just below the knee to the groin, ligation of the left atrial appendage with a 40 mm AtriCure clip Postoperative acute blood loss anemia and thrombocytopenia, expected given hemodilution Atrial fibrillation, known common occurrence after open heart surgery, currently in sinus rhythm The patient is currently laying in bed on the cardiac step down unit in no acute distress. She states her only pain is in her shoulders and it is controlled on current medication regimen, denies significant shortness of breath. Actively attempting to use incentive spirometry although only achieving 500 mL, oxygenating well on room air. She did have a few hours of atrial fibrillation yesterday, given IV amio with conversion back to sinus rhythm. She remains in sinus rhythm currently and hemodynamically stable. All invasive lines/tubes discontinued yesterday. She has ambulated several times with minimal assistance. No new concerns. Objective - Vital Signs Vital signs: Vital Signs Temp 98.2 F 12/03/20 04:00 Pulse 74 12/03/20 04:00 Resp 18 12/03/20 04:00 BP 129/58 12/03/20 04:00 Pulse Ox 96 12/03/20 04:00 Intake & Output 12/02/20 12/03/20 12/03/20 18:59 06:59 18:59 Intake Total 905 Output Total 485 50 Balance 420 -50 Weight 63 kg Intake: Oral 905 Output: Urine 485 50 Other: Voiding Method Bedside Commode Bedside Commode # Voids 1 1 ABP, PAP, CO, CI - Last Documented Arterial Blood Pressure 115/88 Pulmonary Artery Pressure 43/21 Cardiac Output 4.6 Cardiac Index 2.9 - Exam CONSTITUTIONAL: Appears comfortable, cooperative, no acute distress RESPIRATORY: Lungs sounds diminished bilaterally. Respirations even, nonlabored. Currently on room air with oxygen saturation 94-96%. Only able to achieve 500 mL on her incentive spirometry. Strong cough. CARDIOVASCULAR: S1, S2 present. Regular rate and rhythm, sinus rhythm on telemetry. Sternum stable. Doppler peripheral pulses bilaterally. Trace edema present. No calf pain or tenderness noted. Heart hugger in place with patient using appropriately. Antiembolism stockings, SCDs present. GASTROINTESTINAL: Abdomen soft, nontender, nondistended. Active bowel sounds present 4 quadrants. Positive flatus GENITOURINARY: Tadeo discontinued yesterday, continues to void INTEGUMENTARY: Skin is warm and dry. Anterior chest incision well approximated and covered with dry intact dressing. EVH site well approximated without rednes s or drainage. NEUROLOGIC: Cranial nerves II through XII intact MUSKULOSKELETAL: Able to move all extremities, strength equal bilaterally, ambulating with minimal assistance PSYCHIATRIC: Alert, oriented to person, place and time, appropriate affect - Allied health notes Allied health notes reviewed: nursing - Labs CBC & Chem 7: 12/02/20 04:42 12/02/20 04:42 Labs: Abnormal Lab Results - Last 24 Hours (Table) 12/02/20 12/02/20 12/02/20 Range/Units 10:53 16:36 19:07 POC Glucose (mg/dL) 112 H 142 H 223 H (75-99) mg/dL 12/03/20 Range/Units 06:13 POC Glucose (mg/dL) 121 H (75-99) mg/dL - Imaging and Cardiology Chest x-ray: image reviewed Assessment and Plan Assessment: 1. Coronary artery disease, previous stenting to the LAD, status post three- vessel CABG 2. Hypertension 3. Hyperlipidemia, treated, cholesterol 113, LDL 53 4. Peripheral arterial disease with bilateral iliac stenting and atherectomy of the left superficial femoral artery as well as left lower extremity wounds necessitating debridement in July 2020 5. Previous tobacco dependence 6. Severe COPD with preoperative FEV1 44% of predicted 7. As needed home oxygen use 8. Obstructive sleep apnea without CPAP use 9. Remote history of pneumonia 10. Multiple sclerosis 11. Postoperative acute blood loss anemia and thrombocytopenia, expected 12. Atrial fibrillation, known common occurrence, currently sinus rhythm Plan: 1. Continue aspirin, statin, Plavix, ARB, beta patti therapy. Will increase beta blockers as tolerated. 2. Continue amio for afib prophylaxis, will transition to oral. No anticoagulation necessary unless in afib >24 hours 3. Encourage incentive spirometry 10 times every hour while awake. Bronchodilators per pulmonology. 4. Increase activity, ambulate as tolerated. PT/OT/cardiac rehab consulted 5. Will monitor daily labs and x-rays. Electrolyte replacement per protocol. Continue Lasix 20 mg IV push twice daily 6. GI/DVT prophylaxis 7. Pain controlled current medication regimen. 8. Insulin management per primary care service. Patient is not diabetic, preoperative hemoglobin A1c 5% 9. Strict accurate intake and output. Daily weights 10. Protein powder added to each meal. Patient needs improved nutrition status 11. Discharge planning in progress, anticipate discharge to home with home care next 24-48 hours 12. More recommendations to follow Time with Patient: Greater than 30
[2020-12-03 08:13] LABS: HCT 32.6 % (34.0-46.0); HGB 10.7 gm/dL (11.4-16.0); MCH 32.3 pg (25.0-35.0); MCHC 32.9 g/dL (31.0-37.0); MCV 98.4 fL (80.0-100.0); Platelet Count 207 k/uL (150-450); RBC 3.31 m/uL (3.80-5.40); RDW 14.7 % (11.5-15.5); WBC 9.7 k/uL (3.8-10.6)
[2020-12-03] MEDS: INSULIN ASPART (NovoLOG) 100 UNIT/ML VIAL SQ SCH ×4 (08:22→21:54)
[2020-12-03 08:26] LABS: Calcium 8.3 mg/dL (8.4-10.2); Potassium 3.9 mmol/L (3.5-5.1)
[2020-12-03] MEDS: HEPARIN SODIUM,PORCINE/PF 5,000 UNIT/0.5 ML SYRINGE SQ SCH ×2 (08:26→17:03)
[2020-12-03] MEDS: ASPIRIN 325 MG TAB PO SCH (08:26)
[2020-12-03] MEDS: MULTIVITAMINS, THERA 1 EACH TAB PO SCH (08:26)
[2020-12-03] MEDS: CLOPIDOGREL 75 MG TAB PO SCH (08:27)
[2020-12-03] MEDS: FUROSEMIDE 10 MG/ML 2 ML VIAL IV SCH ×2 (08:27→21:45)
--- NOTE | 2020-12-03 08:30 | XR ---
EXAMINATION TYPE: XR chest 2V DATE OF EXAM: 12/03/2020 COMPARISON: Chest x-ray 12/02/2020 HISTORY: Status post cardiac surgery, chest tube removal, abnormal chest x-ray TECHNIQUE: Frontal and lateral views of the chest are obtained. FINDINGS: There is been interval removal of bilateral chest tubes. Left atrial appendage clip is aga in noted. Cardiac mediastinal silhouette shows a similar appearance, patient is rotated. There is saundra e minimal blunting the costophrenic angles. Minimal pneumothorax suspected on the left as on prior. A mariana is dense. There are overlying artifacts. There is some improvement in lung volume, aeration as c ompared to prior exam. IMPRESSION: No evident complication status post chest tube removal. Improvement in aeration.
[2020-12-03] MEDS: BUDESONIDE 0.5 MG/2 ML NEBU INHALATION SCH ×2 (10:03→20:00)
[2020-12-03] MEDS: IPRATROPIUM-ALBUTEROL 3 ML NEB INHALATION SCH ×4 (10:03→20:00)
[2020-12-03] MEDS: AMIODARONE 200 MG TAB PO SCH ×2 (10:16→21:44)
[2020-12-03] MEDS: DEXTROSE 5% IN WATER 100 ML with AMIODARONE 150 MG IV ONE (10:26)
--- NOTE | 2020-12-03 10:37 | P.PN ---
Subjective HISTORY OF PRESENTING ILLNESS This is a pleasant 75-year-old female past medical history significant for coronary artery disease, peripheral vascular disease s/p iliac athrectomy and stenting, COPD, hypertension, dyslipidemia, multiple sclerosis, former nicotine dependence, mitral regurgitation, sleep apnea and former nicotine dependence. She follows in the office with Dr. Adame. She underwent coronary artery bypass grafting yesterday with Dr. Hargrove. She had BAUTISTA-LAD, SVG-OM and SVG-PDA with ligation of left atrial appendage. She was initially extubated yesterday post-operatively, however became fatigued and hypercapnic requiring re-intubation. She is currently maintained on mechanical ventilation. She is awake and moving her extremities freely. Blood pressure 132/48 heart rate 84 and she is afebrile. Laboratory data reviewed, WBC 10.3, hemoglobin 10.6, platelets 165, pH 7.5, pCO2 26, pO2 139, sodium 135, potassium 3.7, creatinine 0.79 and magnesium 2.0. Currently maintained on aspirin 325 mg daily, atorvastatin 80 mg daily, Plavix 75 mg daily, Lasix 20 mg IV 3 times a day, metoprolol 25 mg twice a day, cleviprex infusion and nitroglycerin infusion. Pre-operative echocardiogram revealed impaired LV systolic function with EF 40-45%, basal inferior, inferoseptal and mid inferior wall hypokinesia. she had mild-moderate MR, mild TR and moderate pulmonary hypertension with RVSP 54 mmHg. 12/03/2020 Pt seen and examined sitting up in the recliner in no acute distress. She has some pain in her chest with breathing. No exertional pain. Breathing is stable. Blood pressure 141/61 heart rate 74. Yesterday afternoon she went into atrial fibrillation. She was given an amiodarone bolus and is on oral agents this morning. She has converted back to sinus rhythm. PHYSICAL EXAMINATION CONSTITUTIONAL: No apparent distress. HEENT: Head is normocephalic. Pupils are equal, round. Sclerae anicteric. Mucous membranes of the mouth are moist. No JVD. No carotid bruit. CHEST EXAMINATION: Scattered rhonchi, no wheezes. No chest wall tenderness is noted on palpation or with deep breathing. Heart hugger in place. HEART EXAMINATION: Regular rate and rhythm. S1, S2 heard. Systolic ejection murmur at the base, no gallops or rub. EXTREMITIES: 2+ peripheral pulses, no lower extremity edema and no calf tenderness. Right radial art line in place. ASSESSMENT Coronary artery disease s/p bypass grafting Hypercapnia requiring re-intubation Peripheral vascular disease Hypertension Dyslipidemia Mitral regurgitation Multiple sclerosis COPD Sleep apnea Former nicotine dependence Episode of paroxysmal atrial fibrillation, currently maintaining sinus mechanism. PLAN Continue current medical regimen. Encourage incentive spirometer use around the clock while awake. We will continue to follow and provide supportive care. Nurse Practitioner note has been reviewed, I agree with a documented findings and plan of care. Patient was seen and examined. Objective - Vital Signs Vital signs: Vital Signs Temp 97.6 F 12/03/20 08:00 Pulse 74 12/03/20 10:16 Resp 20 12/03/20 08:00 BP 141/61 12/03/20 08:00 Pulse Ox 97 12/03/20 08:00 Intake & Output 12/02/20 12/03/20 12/03/20 18:59 06:59 18:59 Intake Total 905 240 Output Total 485 50 200 Balance 420 -50 40 Weight 63 kg Intake: Oral 905 240 Output: Urine 485 50 200 Other: Voiding Method Bedside Commode Bedside Commode # Voids 1 1 ABP, PAP, CO, CI - Last Documented Arterial Blood Pressure 115/88 Pulmonary Artery Pressure 43/21 Cardiac Output 4.6 Cardiac Index 2.9 - Labs CBC & Chem 7: 12/03/20 07:38 12/03/20 07:38 Labs: Abnormal Lab Results - Last 24 Hours (Table) 12/02/20 12/02/20 12/02/20 Range/Units 10:53 16:36 19:07 RBC (3.80-5.40) m/uL Hgb (11.4-16.0) gm/dL Hct (34.0-46.0) % Sodium (137-145) mmol/L BUN (7-17) mg/dL Glucose (74-99) mg/dL POC Glucose (mg/dL) 112 H 142 H 223 H (75-99) mg/dL Calcium (8.4-10.2) mg/dL 12/03/20 12/03/20 12/03/20 Range/Units 06:13 07:38 07:38 RBC 3.31 L (3.80-5.40) m/uL Hgb 10.7 L (11.4-16.0) gm/dL Hct 32.6 L (34.0-46.0) % Sodium 136 L (137-145) mmol/L BUN 26 H (7-17) mg/dL Glucose 107 H (74-99) mg/dL POC Glucose (mg/dL) 121 H (75-99) mg/dL Calcium 8.3 L (8.4-10.2) mg/dL
[2020-12-03 12:09] LABS: Glucose,Whole Blood 104 mg/dL (75-99)
[2020-12-03] MEDS: LOSARTAN 25 MG TAB PO SCH (12:27)
[2020-12-03 16:57] LABS: Glucose,Whole Blood 104 mg/dL (75-99)
--- NOTE | 2020-12-03 17:11 | PN ---
PROGRESS NOTE DATE OF SERVICE: 12/03/2020 This 75-year-old woman who was admitted after CAD, CABG, is being closely monitored. The patient had postoperative respiratory failure, expected, which has resolved. No chest pain. No palpitations. No fever. The most recent chest x-ray, which was reviewed personally by me, showed improved aeration. No chest pain. No palpitations. No fever. PHYSICAL EXAMINATION: Alert and oriented x3. Pulse is 75, blood pressure 147/61, respiration 20, temperature 97.5, pulse ox 98% on room air. HEENT: Conjunctivae normal. NECK: No jugular venous distention. CARDIOVASCULAR SYSTEM: S1, S2 muffled. RESPIRATORY SYSTEM: Breath sounds diminished at the bases. A few scattered rhonchi. ABDOMEN: Soft, non-tender. LEGS: No edema. No swelling. NERVOUS SYSTEM: No focal deficit. LAB STUDIES: WBC 9.7. Hemoglobin 10.7. ASSESSMENT: 1. Coronary artery disease, status post coronary artery bypass grafting. 2. Postoperative acute respiratory failure, as expected, which has improved. 3. Hypercapnia requiring reintubation. 4. Coronary artery disease, peripheral vascular disease. 5. Hypertension. 6. Hyperlipidemia. 7. Mitral regurgitation. 8. Chronic obstructive pulmonary disease, mild exacerbation. 9. Sleep apnea. 10.History of congestive heart failure with congestive heart failure, ejection fraction 40%. 11.Elevated blood glucose. RECOMMENDATIONS AND DISCUSSION: I recommend to continue current medication, continue symptomatic treatment. Otherwise, incentive spirometry. Continue the bronchodilators. Closely follow with Pulmonary as well as Cardiology and Cardiothoracic Surgery. Further recommendations to follow. MMODL / IJN: [id number] /
--- NOTE | 2020-12-03 17:32 | P.PN ---
Subjective Progress Note Date: 12/03/20 Principal diagnosis: Status post three-vessel bypass surgery 11/30/2020, the patient remains intubated on a mechanical ventilator. She failed extubation yesterday and the patient had to be reintubated. Her weaning parameters once off sedation were adequate. Borderline. The patient was given a spontaneous breathing trial and following that she was extubated. Postextubation, the patient hypoventilated. She developed respiratory acidosis pH became progressively more lethargic and there was a drop in mentation. The blood gases that was done at that time showed a component of an acute respiratory acidosis. At that point she was given a brief trial of BiPAP following that she was reintubated. This morning, she is on assist control of 22, tidal volume of 450, FiO2 of 40% with a PEEP of 5. Morning blood gases showed a pH of 7.5 with a pCO2 of 26 and pO2 of 139. The chest x-ray from today is showing some postsurgical changes. Chest tubes are all in good location. The patient has a right pleural, left pleural and mediastinal chest tube. ET tube is in a good location. She also has his Kincaid-Richar catheter in the right IJ. Cardiac index currently is at 2.6 with a cardiac output of 4.2. She is producing adequate amount of urine output. Pulses are diminished in all 4 extremities mentioned the legs, obtained by Doppler. Mediastinal chest tube output is in order of 300 mL since operation, left pleural chest tube is in order of 20 6 mL and right chest tube is in order 0.25 mL over the past 12 hours. Urine output is in order of 30 mL an hour. Currently the patient is back on propofol which is running at 25 mics per kilogram per minute. Overnight, recently she received volume and she received 5% albumin, 1. She is still on Catapres for blood pressure control which is still running at 4 mg/h. Her blood work today shows a hemoglobin of 10.6. White cell count is at 10.3. Platelet count is at 165. Electrolytes show a component of non-anion gap metabolic acidosis. Serum bicarbs at 17, sodium is at 135 and liver function tests are all within normal limits. She is arousable. She is following some simple commands. She is wiggling her toes and squeezing using her hands had tubes are equal and reactive to light. No facial asymmetry. Positive gag. 2020, the patient is extubated and the patient is currently on oxygen by nasal cannula at 2 L. Doing extremely well. Sitting up on a chair. No respiratory difficulties. Sternum stable clean and intact. No significant pain across the chest. She is using incentive spirometer and the patient is pulling approximately 500 mL. Chest x-ray showing some small effusion and atelectatic changes in lung bases. Chest tubes are still in place and the patient has a right pleural, left lower and mediastinal chest tubes. Output from the chest tubes have been noted. The patient had minimal mediastinal output and for that reason the mediastinal chest tubes have been removed. The patient otherwise is hemodynamically table. She is on no pressors. The Cleviprex drip has been discontinued and pauses the patient's blood pressure is adequate for now. Hemoglobin is 11.3. Platelet count is slightly dropped down to 146. No signs of any bleeding. She is awake and alert. She is following commands and answering questions. She is moving all 4 extremities. She is also tolerating her diet. Her serum bicarbs up to 25. Creatinine is at 1.1. Conservative an acute kidney injury knowing that her baseline creatinine is a lower at 0.49 The patient is seen today 12/02/2020 and follow-up in the intensive care unit. She is currently sitting up in a chair at the bedside. Awake and alert in no acute distress. She is maintaining good O2 saturations in the 90s on room air. Afebrile. Hemodynamically stable. Chest x-ray reveals small left apical pneumothorax. Diffuse increased lung markings greater on the left. Stable compared to previous. Right and left sided chest tubes remain with approximate 100 ML's out. She's only pulling approximately 500 ML's on her incentive spirometer. She needs increased encouragement regarding the use. Cordis has been removed. White count 11.0. Hemoglobin 10.7. Sodium 135. Potassium 4.0. Creatinine 0.97. He is receiving Lasix 20 mg IV push twice a day. Heparin for DVT prophylaxis. Tenex for GI prophylaxis. She has been up ambulating in the alcantar with assistance. Reevaluated today on 12/03/2020, patient is now on the regular medical floor, sitting at a bedside chair, in no distress. Chest x-ray continues show small tiny left apical pneumothorax. Patient is doing great clinically. Remains compliant with her incentive spirometer. And she is not in any distress. Objective - Vital Signs Vital signs: Vital Signs Temp 98.1 F 12/03/20 16:39 Pulse 69 12/03/20 16:39 Resp 20 12/03/20 16:39 BP 130/58 12/03/20 16:39 Pulse Ox 98 12/03/20 16:39 Intake & Output 12/02/20 12/03/20 12/03/20 18:59 06:59 18:59 Intake Total 905 490 Output Total 485 50 500 Balance 420 -50 -10 Weight 63 kg Intake: Oral 905 490 Output: Urine 485 50 500 Other: Voiding Method Bedside Commode Bedside Commode # Voids 1 1 ABP, PAP, CO, CI - Last Documented Arterial Blood Pressure 115/88 Pulmonary Artery Pressure 43/21 Cardiac Output 4.6 Cardiac Index 2.9 - Exam Physical Exam: Revealed 75-year-old female in no distress. Head: Atraumatic normocephalic. HEENT:[Neck is supple.] [No neck masses.] [No thyromegaly.] [No JVD.] Chest: [Clear throughout, no crackles, no rhonchi, no wheezes.] Cardiac Exam: [Normal S1 and S2, no S3 gallop, no murmur.] Abdomen: [Soft, nontender, no megaly, no rebound, no guarding, normal bowel sounds.] Extremities: [No clubbing, no edema, no cyanosis.] Neurological Exam: [No focal neurologic deficit.] Alert oriented 3. Psychiatric: Normal mood, affect and normal mental status examination. Skin: No rashes. - Labs CBC & Chem 7: 12/03/20 07:38 12/03/20 07:38 Labs: Abnormal Lab Results - Last 24 Hours (Table) 12/02/20 12/03/20 12/03/20 Range/Units 19:07 06:13 07:38 RBC 3.31 L (3.80-5.40) m/uL Hgb 10.7 L (11.4-16.0) gm/dL Hct 32.6 L (34.0-46.0) % Sodium (137-145) mmol/L BUN (7-17) mg/dL Glucose (74-99) mg/dL POC Glucose (mg/dL) 223 H 121 H (75-99) mg/dL Calcium (8.4-10.2) mg/dL 12/03/20 12/03/20 12/03/20 Range/Units 07:38 12:01 16:46 RBC (3.80-5.40) m/uL Hgb (11.4-16.0) gm/dL Hct (34.0-46.0) % Sodium 136 L (137-145) mmol/L BUN 26 H (7-17) mg/dL Glucose 107 H (74-99) mg/dL POC Glucose (mg/dL) 104 H 104 H (75-99) mg/dL Calcium 8.3 L (8.4-10.2) mg/dL Assessment and Plan Assessment: Impression: Status post CABG, postoperative day #4 3 severe peripheral vessel occlusive disease Hypertension. Dyslipidemia. Chronic hypoxic respiratory failure secondary to COPD, patient is on 2.5 L nasal cannula at home. Obstructive sleep apnea syndrome. History of multiple sclerosis. Acute kidney injury, remains on diuretics. Small left apical pneumothorax, expected. Recommendation: Chest x-ray was reviewed. Encouraged to continue incentive spirometry Continue deep coughing deep breathing Ambulation. Continue oxygen and titrate accordingly Possible discharge planning in the next 24 hours. We'll continue to follow. Time with Patient: Less than 30
[2020-12-03 20:31] LABS: Glucose,Whole Blood 91 mg/dL (75-99)
[2020-12-03] MEDS: SENNOSIDES-DOCUSATE SODIUM 1 EACH TAB PO SCH (21:44)
[2020-12-03] MEDS: ATORVASTATIN 80 MG TAB PO SCH (21:44)
[2020-12-04] MEDS: METOPROLOL TARTRATE 25 MG TAB PO SCH (00:59)
[2020-12-04] MEDS: HEPARIN SODIUM,PORCINE/PF 5,000 UNIT/0.5 ML SYRINGE SQ SCH ×2 (00:59→08:17)
[2020-12-04] MEDS: HYDROcodone/APAP 5-325MG 1 EACH TAB PO PRN ×4 (01:11→21:01)
[2020-12-04] MEDS ORDERED: DEXTROSE 5% IN WATER 100 ML with AMIODARONE 150 MG IV ONE (05:00)
[2020-12-04 06:07] LABS: Glucose,Whole Blood 143 mg/dL (75-99)
[2020-12-04] MEDS: PANTOPRAZOLE 40 MG TABLET PO SCH (06:21)
[2020-12-04] MEDS ORDERED: DEXTROSE 5% IN WATER 100 ML with AMIODARONE 150 MG IV STA (06:32)
[2020-12-04] MEDS: INSULIN ASPART (NovoLOG) 100 UNIT/ML VIAL SQ SCH ×4 (07:12→20:46)
[2020-12-04 08:10] LABS: HCT 35.2 % (34.0-46.0); HGB 11.3 gm/dL (11.4-16.0); MCH 31.7 pg (25.0-35.0); MCHC 32.2 g/dL (31.0-37.0); MCV 98.4 fL (80.0-100.0); Platelet Count 266 k/uL (150-450); RBC 3.58 m/uL (3.80-5.40); RDW 14.5 % (11.5-15.5); WBC 8.3 k/uL (3.8-10.6)
[2020-12-04] MEDS: AMIODARONE 200 MG TAB PO SCH ×2 (08:13→21:00)
[2020-12-04] MEDS: METOPROLOL TARTRATE 50 MG TAB PO SCH ×2 (08:14→21:01)
[2020-12-04] MEDS: MULTIVITAMINS, THERA 1 EACH TAB PO SCH (08:14)
[2020-12-04] MEDS: CLOPIDOGREL 75 MG TAB PO SCH (08:14)
[2020-12-04] MEDS: FUROSEMIDE 10 MG/ML 2 ML VIAL IV SCH ×2 (08:14→21:00)
--- NOTE | 2020-12-04 08:15 | XR ---
EXAMINATION TYPE: XR chest 2V DATE OF EXAM: 12/04/2020 COMPARISON: Chest x-ray 12/03/2020 HISTORY: Status post cardiac surgery, abnormal chest x-ray TECHNIQUE: Frontal and lateral views of the chest are obtained. FINDINGS: Bibasilar increased attenuation is present, there is blunting the costophrenic angles. Car diac mediastinal silhouette shows a similar appearance, atrial appendage clip is noted. Aorta is dens e. There may be residual minimal apical left pneumothorax. There are overlying artifacts. Thickening of the major fissure suspected on the lateral exam may be due to pleural effusion. IMPRESSION: Probable small basilar effusions and associated atelectasis. Small left apical pneumotho rax is likely improved.
[2020-12-04] MEDS: ASPIRIN 81 MG PO SCH (08:17)
[2020-12-04 08:28] LABS: Calcium 8.3 mg/dL (8.4-10.2); Magnesium 1.9 mg/dL (1.6-2.3); Potassium 3.8 mmol/L (3.5-5.1)
[2020-12-04] MEDS ORDERED: POTASSIUM CHLORIDE ER 20 MEQ TAB.ER PO STA (08:33)
--- NOTE | 2020-12-04 08:42 | P.PN ---
Subjective Progress Note Date: 12/04/20 Principal diagnosis: Coronary artery disease. Previous medical history of coronary artery disease with previous stenting to the LAD, hypertension, hyperlipidemia, peripheral jessi rial disease with bilateral iliac stenting and atherectomy of the left superficial femoral artery as well as left lower extremity wounds necessitating debridement in July 2020, previous tobacco dependence, severe COPD with preoperative FEV1 44% of predicted, as needed home oxygen use, obstructive sleep apnea without CPAP use, remote history of pneumonia, multiple sclerosis. POD #5 CABG 3 with free left internal mammary artery to the left anterior descending artery, reverse greater saphenous vein graft to the obtuse marginal artery, reverse greater saphenous vein graft to the posterior descending artery, endovascular vein harvest of the right greater saphenous vein from just below the knee to the groin, ligation of the left atrial appendage with a 40 mm AtriCure clip Postoperative acute blood loss anemia and thrombocytopenia, expected given hemodilution Atrial fibrillation, known common occurrence after open heart surgery The patient is currently sitting up in a chair on the cardiac step down unit in no acute distress. She states her only pain is in her shoulders and it is co ntrolled on current medication regimen, denies significant shortness of breath. Actively attempting to use incentive spirometry although only achieving 500 mL, oxygenating well on room air. She did have a burst of atrial fibrillation yesterday afternoon and went into A. fib RVR again last night, given IV amio bolus, as well as oral started yesterday. She is currently in sinus rhythm and hemodynamically stable. She has ambulated several times with minimal assistance. Patient is wishing to go home although understands need for further medication adjustment. No new concerns. Objective - Vital Signs Vital signs: Vital Signs Temp 97.8 F 12/04/20 04:00 Pulse 125 H 12/04/20 04:00 Resp 18 12/04/20 04:00 BP 141/76 12/04/20 04:00 Pulse Ox 96 12/04/20 04:00 Intake & Output 12/03/20 12/04/20 12/04/20 18:59 06:59 18:59 Intake Total 814.92 Output Total 700 1175 Balance 114.92 -1175 Weight 53.5 kg Intake: Intake, IV Titration 199.92 Amount Dextrose 5% in Water 100 199.92 ml @ 618 mls/hr IV .Q10M ONE with Amiodarone 150 mg Rx#:[id number] Oral 615 Output: Urine 700 1100 Other 75 Other: Voiding Method Bedside Commode ABP, PAP, CO, CI - Last Documented Arterial Blood Pressure 115/88 Pulmonary Artery Pressure 43/21 Cardiac Output 4.6 Cardiac Index 2.9 - Exam CONSTITUTIONAL: Appears comfortable, cooperative, no acute distress RESPIRATORY: Lungs sounds diminished bilaterally. Respirations even, nonlabored. Currently on room air with oxygen saturation 94-96%. Only able to achieve 500 mL on her incentive spirometry. Strong cough. CARDIOVASCULAR: S1, S2 present. Regular rate and rhythm, sinus rhythm on telemetry. Sternum stable. Doppler peripheral pulses bilaterally. No edema present. No calf pain or tenderness noted. Heart hugger in place with patient using appropriately. Antiembolism stockings, SCDs present. GASTROINTESTINAL: Abdomen soft, nontender, nondistended. Active bowel sounds present 4 quadrants. Positive flatus GENITOURINARY: Continues to void INTEGUMENTARY: Skin is warm and dry. Anterior chest incision well approximated and covered with dry intact dressing. EVH site well approximated without redness or drainage. NEUROLOGIC: Cranial nerves II through XII intact MUSKULOSKELETAL: Able to move all extremities, strength equal bilaterally, ambulating with minimal assistance although does need to take occasional breaks PSYCHIATRIC: Alert, oriented to person, place and time, appropriate affect - Allied health notes Allied health notes reviewed: nursing - Labs CBC & Chem 7: 12/04/20 07:47 12/04/20 07:47 Labs: Abnormal Lab Results - Last 24 Hours (Table) 12/03/20 12/03/20 12/03/20 Range/Units 07:38 07:38 12:01 RBC 3.31 L (3.80-5.40) m/uL Hgb 10.7 L (11.4-16.0) gm/dL Hct 32.6 L (34.0-46.0) % Sodium 136 L (137-145) mmol/L BUN 26 H (7-17) mg/dL Glucose 107 H (74-99) mg/dL POC Glucose (mg/dL) 104 H (75-99) mg/dL Calcium 8.3 L (8.4-10.2) mg/dL 12/03/20 12/04/20 Range/Units 16:46 06:02 RBC (3.80-5.40) m/uL Hgb (11.4-16.0) gm/dL Hct (34.0-46.0) % Sodium (137-145) mmol/L BUN (7-17) mg/dL Glucose (74-99) mg/dL POC Glucose (mg/dL) 104 H 143 H (75-99) mg/dL Calcium (8.4-10.2) mg/dL - Imaging and Cardiology Chest x-ray: image reviewed Assessment and Plan Assessment: 1. Coronary artery disease, previous stenting to the LAD, status post three- vessel CABG 2. Hypertension 3. Hyperlipidemia, treated, cholesterol 113, LDL 53 4. Peripheral arterial disease with bilateral iliac stenting and atherectomy of the left superficial femoral artery as well as left lower extremity wounds necessitating debridement in July 2020 5. Previous tobacco dependence 6. Severe COPD with preoperative FEV1 44% of predicted 7. As needed home oxygen use 8. Obstructive sleep apnea without CPAP use 9. Remote history of pneumonia 10. Multiple sclerosis 11. Postoperative acute blood loss anemia and thrombocytopenia, expected 12. Atrial fibrillation, known common occurrence Plan: 1. Continue low dose aspirin, statin, Plavix, ARB, beta patti therapy. Will increase beta blockers as tolerated, increased to 50 mg twice daily today. 2. Continue oral amio for afib prophylaxis. Will start low dose Eliquis for anticoagulation, will use triple therapy due to significant PAD, discussed with Dr. Adame 3. Encourage incentive spirometry 10 times every hour while awake. Bronchodilators per pulmonology. 4. Increase activity, ambulate as tolerated. PT/OT/cardiac rehab consulted 5. Will monitor daily labs and x-rays. Electrolyte replacement per protocol. Continue Lasix 20 mg IV push twice daily 6. GI/DVT prophylaxis 7. Pain controlled current medication regimen. 8. Insulin management per primary care service. Patient is not diabetic, preoperative hemoglobin A1c 5% 9. Strict accurate intake and output. Daily weights 10. Protein powder added to each meal. Patient needs improved nutrition status 11. Discharge planning in progress, anticipate discharge to home with home care next 24-48 hours 12. More recommendations to follow Time with Patient: Greater than 30
[2020-12-04] MEDS: APIXABAN 2.5 MG TABLET PO SCH ×2 (09:15→21:00)
[2020-12-04] MEDS: MAGNESIUM OXIDE 400 MG TAB PO SCH ×2 (09:15→21:01)
[2020-12-04] MEDS: BUDESONIDE 0.5 MG/2 ML NEBU INHALATION SCH ×2 (09:39→20:44)
[2020-12-04] MEDS: IPRATROPIUM-ALBUTEROL 3 ML NEB INHALATION SCH ×4 (09:39→20:44)
[2020-12-04 11:23] VITALS: BMI 23.0
[2020-12-04] MEDS: LOSARTAN 25 MG TAB PO SCH (12:13)
[2020-12-04 12:14] LABS: Glucose,Whole Blood 117 mg/dL (75-99)
--- NOTE | 2020-12-04 12:17 | P.PN ---
Subjective HISTORY OF PRESENTING ILLNESS This is a pleasant 75-year-old female past medical history significant for coronary artery disease, peripheral vascular disease s/p iliac athrectomy and stenting, COPD, hypertension, dyslipidemia, multiple sclerosis, former nicotine dependence, mitral regurgitation, sleep apnea and former nicotine dependence. She follows in the office with Dr. Adame. She underwent coronary artery bypass grafting yesterday with Dr. Hargrove. She had BAUTISTA-LAD, SVG-OM and SVG-PDA with ligation of left atrial appendage. She was initially extubated yesterday post-operatively, however became fatigued and hypercapnic requiring re-intubation. She is currently maintained on mechanical ventilation. She is awake and moving her extremities freely. Blood pressure 132/48 heart rate 84 and she is afebrile. Laboratory data reviewed, WBC 10.3, hemoglobin 10.6, platelets 165, pH 7.5, pCO2 26, pO2 139, sodium 135, potassium 3.7, creatinine 0.79 and magnesium 2.0. Currently maintained on aspirin 325 mg daily, atorvastatin 80 mg daily, Plavix 75 mg daily, Lasix 20 mg IV 3 times a day, metoprolol 25 mg twice a day, cleviprex infusion and nitroglycerin infusion. Pre-operative echocardiogram revealed impaired LV systolic function with EF 40-45%, basal inferior, inferoseptal and mid inferior wall hypokinesia. she had mild-moderate MR, mild TR and moderate pulmonary hypertension with RVSP 54 mmHg. 12/03/2020 Pt seen and examined sitting up in the recliner in no acute distress. Her breathing is stable. She has no chest pain, dizziness or palpitations. She has been up ambulating with therapy. Blood pressure 153/71 heart rate 61 afebrile and maintaining oxygen saturation on room air. Telemetry tracings reviewed, she had another episode of afib last night requiring amiodarone bolus. She was initiated on eliquis 2.5 mg BID today per CT surgery. Currently in sinus mechanism. Laboratory data reviewed, WBC 8.3, hemoglobin 11.3, sodium 132, potassium 3.8, creatinine 0.79 and magnesium 1.9. PHYSICAL EXAMINATION CONSTITUTIONAL: No apparent distress. HEENT: Head is normocephalic. Pupils are equal, round. Sclerae anicteric. Mucous membranes of the mouth are moist. No JVD. No carotid bruit. CHEST EXAMINATION: Scattered rhonchi, no wheezes. No chest wall tenderness is noted on palpation or with deep breathing. Heart hugger in place. HEART EXAMINATION: Regular rate and rhythm. S1, S2 heard. Systolic ejection murmur at the base, no gallops or rub. EXTREMITIES: 2+ peripheral pulses, no lower extremity edema and no calf tenderness. ASSESSMENT Coronary artery disease s/p bypass grafting Hypercapnia requiring re-intubation Peripheral vascular disease Hypertension Dyslipidemia Mitral regurgitation Multiple sclerosis COPD Sleep apnea Former nicotine dependence Episode of paroxysmal atrial fibrillation, currently maintaining sinus mechanism. PLAN Agree with Eliquis 2.5 mg twice a day for thromboembolic protection. Current incentive spirometer use. Increase activity as tolerated. We will continue to follow and make recommendations accordingly. Nurse Practitioner note has been reviewed, I agree with a documented findings and plan of care. Patient was seen and examined. Objective - Vital Signs Vital signs: Vital Signs Temp 98.1 F 12/04/20 08:00 Pulse 61 12/04/20 11:23 Resp 20 12/04/20 11:23 BP 153/71 12/04/20 11:23 Pulse Ox 97 12/04/20 11:23 Intake & Output 12/03/20 12/04/20 12/04/20 18:59 06:59 18:59 Intake Total 814.92 0 Output Total 700 1175 Balance 114.92 -1175 0 Weight 53.5 kg 53.5 kg Intake: Intake, IV Titration 199.92 Amount Dextrose 5% in Water 100 199.92 ml @ 618 mls/hr IV .Q10M ONE with Amiodarone 150 mg Rx#:[id number] Oral 615 0 Output: Urine 700 1100 Other 75 Other: Voiding Method Bedside Commode ABP, PAP, CO, CI - Last Documented Arterial Blood Pressure 115/88 Pulmonary Artery Pressure 43/21 Cardiac Output 4.6 Cardiac Index 2.9 - Labs CBC & Chem 7: 12/04/20 07:47 12/04/20 07:47 Labs: Abnormal Lab Results - Last 24 Hours (Table) 12/03/20 12/04/20 12/04/20 Range/Units 16:46 06:02 07:47 RBC 3.58 L (3.80-5.40) m/uL Hgb 11.3 L (11.4-16.0) gm/dL Sodium (137-145) mmol/L Chloride (98-107) mmol/L BUN (7-17) mg/dL Glucose (74-99) mg/dL POC Glucose (mg/dL) 104 H 143 H (75-99) mg/dL Calcium (8.4-10.2) mg/dL 12/04/20 Range/Units 07:47 RBC (3.80-5.40) m/uL Hgb (11.4-16.0) gm/dL Sodium 132 L (137-145) mmol/L Chloride 97 L (98-107) mmol/L BUN 23 H (7-17) mg/dL Glucose 228 H (74-99) mg/dL POC Glucose (mg/dL) (75-99) mg/dL Calcium 8.3 L (8.4-10.2) mg/dL
[2020-12-04 17:17] LABS: Glucose,Whole Blood 106 mg/dL (75-99)
--- NOTE | 2020-12-04 18:58 | PN ---
PROGRESS NOTE This 75-year-old woman who was admitted after CAD, CABG is being closely monitored. Patient has some bronchospasm also. No chest pain. No palpitations. No fever. Most recent chest x-ray done today showed some bibasilar effusions and atelectasis. No chest pain. No palpitations. No fever. PHYSICAL EXAMINATION: Alert and oriented times two. Pulse 66, blood pressure 120/63, respiration 20, temperature 98 degrees, pulse ox 99 percent on room air. HEENT: Conjunctivae normal. NECK: No JVD. CARDIOVASCULAR: S1, S2 muffled. RESPIRATION: Breath sounds diminished in the bases. A few scattered rhonchi. No crackles. ABDOMEN: Soft, nontender. LEGS: No edema. No swelling. NERVOUS SYSTEM: No focal deficits. LABS: Hemoglobin 11.2, sodium 132. ASSESSMENT: 1. Coronary artery disease, coronary artery bypass grafting. 2. Postoperative acute respiratory failure as expected, which is improved. 3. Hypercapnia requiring re-intubation. 4. Coronary artery disease. 5. Peripheral vascular disease. 6. Hypertension. 7. Hyperlipidemia. 8. Chronic obstructive pulmonary disease. 9. Mitral regurgitation. 10.Obstructive sleep apnea. 11.History of congestive heart failure with chronic systolic dysfunction, ejection fraction 40%. 12.Elevated blood glucose. RECOMMENDATIONS AND DISCUSSION: Recommend to continue current management and symptomatic treatment. Continue incentive spirometry, bronchodilators. Monitor labs. Closely follow with Cardiothoracic Surgery. Further recommendations to follow. Cardiology is also following the patient closely. Incentive spirometry. DVT prophylaxis. CHARMAINE / OSMANN: [id number] /
[2020-12-04 20:24] LABS: Glucose,Whole Blood 103 mg/dL (75-99)
[2020-12-04] MEDS: ATORVASTATIN 80 MG TAB PO SCH (21:00)
[2020-12-04] MEDS: SENNOSIDES-DOCUSATE SODIUM 1 EACH TAB PO SCH (21:01)
[2020-12-05 02:01] LABS: Glucose,Whole Blood 99 mg/dL (75-99)
[2020-12-05] MEDS: HYDROcodone/APAP 5-325MG 1 EACH TAB PO PRN (03:29)
[2020-12-05 06:22] LABS: Glucose,Whole Blood 97 mg/dL (75-99)
[2020-12-05] MEDS: INSULIN ASPART (NovoLOG) 100 UNIT/ML VIAL SQ SCH ×2 (06:26→12:34)
[2020-12-05] MEDS: PANTOPRAZOLE 40 MG TABLET PO SCH (06:27)
--- NOTE | 2020-12-05 07:59 | XR ---
EXAMINATION TYPE: XR chest 2V DATE OF EXAM: 12/05/2020 COMPARISON: 12/04/2020 TECHNIQUE: PA and lateral views submitted. HISTORY: Post cardiac surgery. FINDINGS: Heart is enlarged and there is bilateral infiltrate and pleural effusion. Diffuse interstitial patter n. No pneumothorax. Atherosclerotic change aorta. Postsurgical changes seen. IMPRESSION: 1. Stable x-ray compatible COPD, bilateral infiltrate and pleural effusion correlate for underlying C HF.
[2020-12-05 08:41] LABS: HCT 34.2 % (34.0-46.0); HGB 10.9 gm/dL (11.4-16.0); Hypochromasia Slight; MCH 31.6 pg (25.0-35.0); MCHC 31.7 g/dL (31.0-37.0); MCV 99.6 fL (80.0-100.0); Macrocytosis Slight; Mean Platelet Volume 8.6; Platelet Count 277 k/uL (150-450); RBC 3.43 m/uL (3.80-5.40); RDW 14.6 % (11.5-15.5); WBC 9.1 k/uL (3.8-10.6)
--- NOTE | 2020-12-05 08:42 | P.PN ---
Subjective Progress Note Date: 12/05/20 Principal diagnosis: Coronary artery disease. Previous medical history of coronary artery disease with previous stenting to the LAD, hypertension, hyperlipidemia, peripheral jessi rial disease with bilateral iliac stenting and atherectomy of the left superficial femoral artery as well as left lower extremity wounds necessitating debridement in July 2020, previous tobacco dependence, severe COPD with preoperative FEV1 44% of predicted, as needed home oxygen use, obstructive sleep apnea without CPAP use, remote history of pneumonia, multiple sclerosis. POD #6 CABG 3 with free left internal mammary artery to the left anterior descending artery, reverse greater saphenous vein graft to the obtuse marginal artery, reverse greater saphenous vein graft to the posterior descending artery, endovascular vein harvest of the right greater saphenous vein from just below the knee to the groin, ligation of the left atrial appendage with a 40 mm AtriCure clip Postoperative acute blood loss anemia and thrombocytopenia, expected given hemodilution Atrial fibrillation, known common occurrence after open heart surgery The patient is currently sitting up in a chair on the cardiac step down unit in no acute distress. She states her only pain is in her shoulders and it is co ntrolled on current medication regimen, denies significant shortness of breath. Actively attempting to use incentive spirometry although only achieving 500 mL, oxygenating well on room air. No further afib. She is currently in sinus rhythm and hemodynamically stable. She has ambulated several times with minimal assistance. Patient is wishing to go home. No new concerns. Objective - Vital Signs Vital signs: Vital Signs Temp 98.2 F 12/05/20 03:59 Pulse 67 12/05/20 03:59 Resp 18 12/05/20 03:59 BP 145/65 12/05/20 03:59 Pulse Ox 96 12/05/20 03:59 Intake & Output 12/04/20 12/05/20 12/05/20 18:59 06:59 18:59 Intake Total 340 780 Output Total 425 Balance 340 355 Weight 53.5 kg 59.9 kg Intake: Intake, IV Titration 100 Amount Dextrose 5% in Water 100 100 ml @ 618 mls/hr IV .Q10M STA with Amiodarone 150 mg Rx#:[id number] Oral 240 780 Output: Urine 425 Other: Voiding Method Toilet # Voids 2 1 ABP, PAP, CO, CI - Last Documented Arterial Blood Pressure 115/88 Pulmonary Artery Pressure 43/21 Cardiac Output 4.6 Cardiac Index 2.9 - Exam CONSTITUTIONAL: Appears comfortable, cooperative, no acute distress RESPIRATORY: Lungs sounds diminished bilaterally. Respirations even, nonlabored. Currently on room air with oxygen saturation 94-96%. Only able to achieve 500 mL on her incentive spirometry. Strong cough. CARDIOVASCULAR: S1, S2 present. Regular rate and rhythm, sinus rhythm on telemetry. Sternum stable. Doppler peripheral pulses bilaterally. No edema present. No calf pain or tenderness noted. Heart hugger in place with patient using appropriately. Antiembolism stockings, SCDs present. GASTROINTESTINAL: Abdomen soft, nontender, nondistended. Active bowel sounds present 4 quadrants. Positive bowel movement GENITOURINARY: Continues to void INTEGUMENTARY: Skin is warm and dry. Anterior chest incision well approximated and covered with dry intact dressing. EVH site well approximated without redness or drainage. NEUROLOGIC: Cranial nerves II through XII intact MUSKULOSKELETAL: Able to move all extremities, strength equal bilaterally, ambulating with minimal assistance although does need to take occasional breaks PSYCHIATRIC: Alert, oriented to person, place and time, appropriate affect - Allied health notes Allied health notes reviewed: nursing - Labs CBC & Chem 7: 12/04/20 07:47 12/04/20 07:47 Labs: Abnormal Lab Results - Last 24 Hours (Table) 12/04/20 12/04/20 12/04/20 Range/Units 11:47 17:00 20:23 POC Glucose (mg/dL) 117 H 106 H 103 H (75-99) mg/dL - Imaging and Cardiology Chest x-ray: image reviewed Assessment and Plan Assessment: 1. Coronary artery disease, previous stenting to the LAD, status post three- vessel CABG 2. Hypertension 3. Hyperlipidemia, treated, cholesterol 113, LDL 53 4. Peripheral arterial disease with bilateral iliac stenting and atherectomy of the left superficial femoral artery as well as left lower extremity wounds necessitating debridement in July 2020 5. Previous tobacco dependence 6. Severe COPD with preoperative FEV1 44% of predicted 7. As needed home oxygen use 8. Obstructive sleep apnea without CPAP use 9. Remote history of pneumonia 10. Multiple sclerosis 11. Postoperative acute blood loss anemia and thrombocytopenia, expected 12. Atrial fibrillation, known common occurrence after open heart surgery Plan: 1. Continue low dose aspirin, statin, ARB, beta patti therapy. 2. Continue oral amio for afib prophylaxis. Continue Eliquis for anticoagulation 3. Encourage incentive spirometry 10 times every hour while awake. Bronchodilators per pulmonology. 4. Increase activity, ambulate as tolerated. PT/OT/cardiac rehab consulted 5. Will monitor daily labs and x-rays. Electrolyte replacement per protocol. 6. GI/DVT prophylaxis 7. Pain controlled current medication regimen. 8. Insulin management per primary care service. Patient is not diabetic, preoperative hemoglobin A1c 5% 9. Strict accurate intake and output. Daily weights 10. Protein powder added to each meal. Patient needs improved nutrition status 11. Discharge planning in progress, anticipate discharge to home with home care early afternoon 12. More recommendations to follow Time with Patient: Greater than 30
[2020-12-05 08:43] LABS: Calcium 8.5 mg/dL (8.4-10.2); Potassium 4.4 mmol/L (3.5-5.1)
[2020-12-05] MEDS ORDERED: APIXABAN 5 MG TAB PO SCH (09:00)
[2020-12-05 09:09] VITALS: RESP 16; TEMP 97.8
[2020-12-05] MEDS: MULTIVITAMINS, THERA 1 EACH TAB PO SCH (09:11)
[2020-12-05] MEDS: METOPROLOL TARTRATE 50 MG TAB PO SCH (09:11)
[2020-12-05] MEDS: MAGNESIUM OXIDE 400 MG TAB PO SCH (09:11)
[2020-12-05] MEDS: ASPIRIN 81 MG PO SCH (09:11)
[2020-12-05] MEDS: FUROSEMIDE 10 MG/ML 2 ML VIAL IV SCH (09:11)
[2020-12-05] MEDS: AMIODARONE 200 MG TAB PO SCH (09:11)
--- NOTE | 2020-12-05 09:28 | P.PN ---
Subjective HISTORY OF PRESENTING ILLNESS This is a pleasant 75-year-old female past medical history significant for coronary artery disease, peripheral vascular disease s/p iliac athrectomy and stenting, COPD, hypertension, dyslipidemia, multiple sclerosis, former nicotine dependence, mitral regurgitation, sleep apnea and former nicotine dependence. She follows in the office with Dr. Adame. She underwent coronary artery bypass grafting yesterday with Dr. Hargrove. She had BAUTISTA-LAD, SVG-OM and SVG-PDA with ligation of left atrial appendage. She was initially extubated yesterday post-operatively, however became fatigued and hypercapnic requiring re-intubation. She is currently maintained on mechanical ventilation. She is awake and moving her extremities freely. Blood pressure 132/48 heart rate 84 and she is afebrile. Laboratory data reviewed, WBC 10.3, hemoglobin 10.6, platelets 165, pH 7.5, pCO2 26, pO2 139, sodium 135, potassium 3.7, creatinine 0.79 and magnesium 2.0. Currently maintained on aspirin 325 mg daily, atorvastatin 80 mg daily, Plavix 75 mg daily, Lasix 20 mg IV 3 times a day, metoprolol 25 mg twice a day, cleviprex infusion and nitroglycerin infusion. Pre-operative echocardiogram revealed impaired LV systolic function with EF 40-45%, basal inferior, inferoseptal and mid inferior wall hypokinesia. she had mild-moderate MR, mild TR and moderate pulmonary hypertension with RVSP 54 mmHg. 12/05/2020 Pt seen and examined sitting up in the recliner in no acute distress. She denies resting chest pain, shortness of breath or palpitations. She does feel some exertional shortness of breath. She went back in atrial fibrillation this morning with heart rates in the 130-140s. She has yet to get her AM dose of lopressor. Blood pressure 145/65 heart rate 136 afebrile and maintaining oxygen saturation on nasal cannula. Laboratory data reviewed, WBC 9.1, hemoglobin 10.9, platelets 277, sodium 136, potassium 4.4, creatinine 0.83 magnesium 2.0. PHYSICAL EXAMINATION CONSTITUTIONAL: No apparent distress. HEENT: Head is normocephalic. Pupils are equal, round. Sclerae anicteric. Mucous membranes of the mouth are moist. No JVD. No carotid bruit. CHEST EXAMINATION: Scattered rhonchi, faint rales, no wheezes. No chest wall tenderness is noted on palpation or with deep breathing. Heart hugger in place. HEART EXAMINATION: Irregular rate and rhythm. S1, S2 heard. Systolic ejection murmur at the base, no gallops or rub. EXTREMITIES: 2+ peripheral pulses, no lower extremity edema and no calf tenderness. ASSESSMENT Coronary artery disease s/p bypass grafting Hypercapnia requiring re-intubation Peripheral vascular disease Hypertension Dyslipidemia Mitral regurgitation Multiple sclerosis COPD Sleep apnea Former nicotine dependence Paroxysmal atrial fibrillation with rapid ventricular rates PLAN Eliquis was increased per CT surgery. Discussed with the nurse her beta patti dosing. Continue oral amiodarone 400 mg BID. Continue telemetry monitoring. Recommend to keep her inpatient for another 24 hours for ongoing telemetry monitoring. Further recommendations to follow based on clinical course. Nurse Practitioner note has been reviewed, I agree with a documented findings and plan of care. Patient was seen and examined. Objective - Vital Signs Vital signs: Vital Signs Temp 97.8 F 12/05/20 09:08 Pulse 129 H 12/05/20 09:08 Resp 16 12/05/20 09:08 BP 130/61 12/05/20 09:08 Pulse Ox 95 12/05/20 09:08 Intake & Output 12/04/20 12/05/20 12/05/20 18:59 06:59 18:59 Intake Total 340 780 Output Total 425 Balance 340 355 Weight 53.5 kg 59.9 kg Intake: Intake, IV Titration 100 Amount Dextrose 5% in Water 100 100 ml @ 618 mls/hr IV .Q10M STA with Amiodarone 150 mg Rx#:[id number] Oral 240 780 Output: Urine 425 Other: Voiding Method Toilet # Voids 2 1 ABP, PAP, CO, CI - Last Documented Arterial Blood Pressure 115/88 Pulmonary Artery Pressure 43/21 Cardiac Output 4.6 Cardiac Index 2.9 - Labs CBC & Chem 7: 12/05/20 07:20 12/05/20 07:20 Labs: Abnormal Lab Results - Last 24 Hours (Table) 12/04/20 12/04/20 12/04/20 Range/Units 11:47 17:00 20:23 RBC (3.80-5.40) m/uL Hgb (11.4-16.0) gm/dL Sodium (137-145) mmol/L BUN (7-17) mg/dL POC Glucose (mg/dL) 117 H 106 H 103 H (75-99) mg/dL 12/05/20 12/05/20 Range/Units 07:20 07:20 RBC 3.43 L (3.80-5.40) m/uL Hgb 10.9 L (11.4-16.0) gm/dL Sodium 136 L (137-145) mmol/L BUN 26 H (7-17) mg/dL POC Glucose (mg/dL) (75-99) mg/dL
[2020-12-05] MEDS: BUDESONIDE 0.5 MG/2 ML NEBU INHALATION SCH (09:39)
[2020-12-05] MEDS: IPRATROPIUM-ALBUTEROL 3 ML NEB INHALATION SCH ×2 (09:39→12:29)
[2020-12-05] MEDS ORDERED: DEXTROSE 5% IN WATER 100 ML with AMIODARONE 150 MG IV ONE (10:58)
[2020-12-05] MEDS ORDERED: LOSARTAN 25 MG TAB PO SCH (12:00)
[2020-12-05 12:28] LABS: Glucose,Whole Blood 110 mg/dL (75-99)
[2020-12-05 12:32] VITALS: PULSE 120
[2020-12-05 12:33] VITALS: BP 136/63
--- NOTE | 2020-12-05 13:49 | P.DS ---
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 Coronary artery disease with previous history of stenting 2. Hypertension 3. Hyperlipidemia, treated, cholesterol 113, LDL 53 4. Peripheral arterial disease with bilateral iliac stenting and atherectomy of the left SFA as well as left lower extremity wounds necessitating debridement in July 2020 5. Previous tobacco dependence 6. Severe COPD with preoperative FEV1 44% of predicted 7. Home oxygen use as needed 8. Obstructive sleep apnea without CPAP use 9. Remote history of pneumonia 10. Multiple sclerosis 11. Postoperative acute blood loss anemia and thrombocytopenia, expected 12. Paroxysmal atrial fibrillation PRINCIPAL PROCEDURE: 1. Coronary artery bypass 3 with free left internal mammary artery to the left anterior descending artery, reverse greater saphenous vein graft to the obtuse marginal artery, reverse greater saphenous vein graft to the posterior descending artery 2. Endovascular vein harvest of the right greater saphenous vein from just below the knee to the groin 3. Ligation of the left atrial appendage with a 40 mm AtriCure clip HISTORY OF PRESENT ILLNESS: This is a 75-year-old female who follows on an outpatient basis with Dr. Sydnie Reynolds for primary care as well as Dr. Adame for cardiology. She has a known history of coronary artery disease as well as peripheral vascular disease for many years, which came to a head over the previous 6 months. She underwent cardiac catheterization in April 2020 which demonstrated severe triple-vessel coronary artery disease with in-stent restenosis of the LAD stent, diffuse disease in the LAD, both in the mid and distal portions of the vessel. Following the catheterization she had transthoracic echocardiography demonstrating fairly normal left ventricular function with evidence of mild to moderate ischemic mitral regurgitation with evidence of diastolic dysfunction and left ventricular hypertrophy. She was referred for bypass at that time but was turned down due to severe peripheral vascular disease with leg ischemia combined with severe diffuse coronary disease with relatively poor targets and active smoking. She underwent bilateral iliac stenting and atherectomy of the left superficial femoral artery leading to improved blood supply to the left foot. Following this she had fairly extensive debridement of the left foot, both of the toes and heel, and had been undergoing wound care for healing of her leg. She successfully quit smoking. She was referred to Dr. Madrigal from pulmonology and received clearance for surgery upon smoking cessation. She was referred back to Dr. Hargrove for a second opinion regarding surgical myocardial revascularization. It was felt she would likely benefit from CABG although at somewhat higher risk than the average patient. The usual perioperative course was discussed in detail with the patient and her family, all risks and benefits were explained, all questions were answered, and consent was obtained to proceed with surgery, in fact the patient was adamant that she wanted surgery. Preoperative testing was repeated including vein mapping, and she was scheduled for surgery at the earliest possible date. HOSPITAL COURSE: The patient was brought to the hospital on 11/29/2020, taken to the preoperative area, prepared in the usual fashion, and subsequently taken to the operating room where Dr. Hargrove performed a three-vessel CABG. Upon completion of surgery the patient was transferred to the cardiovascular intensive care unit where she was recovered and monitored hemodynamically. She was extubated, all lines, tubes, and drips were discontinued when appropriate, and she was transferred to 3 S. cardiac stepdown unit for further monitoring and rehabilitation. She did experience paroxysmal atrial fibrillation which was treated with amiodarone and Eliquis, along with protection in the form of left atrial appendage ligation. Her oxygen was titrated down, she continued to work with physical and occupational therapy, she was tolerating oral diet, her pain was controlled, and she was ready to be discharged to home with [facility] care on postoperative day #6. She received written and verbal instruction regarding her medications, activity restrictions, signs and symptoms requiring physician notification, and follow-up appointments. COMPLICATIONS: The patient experienced paroxysmal atrial fibrillation which was treated accordingly. Patient Condition at Discharge: Stable Plan - Discharge Summary Discharge Rx Participant: No New Discharge Prescriptions: New Amiodarone [Cordarone] 400 mg PO BID #40 tab Metoprolol Tartrate [Lopressor] 50 mg PO BID #60 tab Sennosides-Docusate Sodium [Senokot-S] 2 each PO HS PRN tab PRN Reason: Constipation Apixaban [Eliquis] 5 mg PO BID #60 tab Pantoprazole [Protonix] 40 mg PO AC-BRKFST #30 tablet.dr Acetaminophen Tab [Tylenol] 650 mg PO Q4HR PRN tab PRN Reason: Fever And/ Or Pain Continue Aspirin [Adult Low Dose Aspirin EC] 81 mg PO DAILY Atorvastatin [Lipitor] 80 mg PO HS Losartan [Cozaar] 25 mg PO DAILY Albuterol Inhaler [Ventolin Hfa Inhaler] 1 puff INHALATION RT-QID PRN PRN Reason: sob Fluticasone/Umeclidin/Vilanter [Trelegy Ellipta 100-62.5-25] 1 inhalation INHALATION DAILY Changed Furosemide [Lasix] 40 mg PO DAILY #30 tab Discontinued Isosorbide Mononitrate ER [Imdur] 30 mg PO DAILY Ranolazine [Ranexa] 500 mg PO BID Metoprolol Succinate [Toprol XL] 25 mg PO DAILY Clopidogrel Bisulfate [Plavix] 75 mg PO DAILY #90 tab Mupirocin 2% Oint [Bactroban 2% Oint] 1 applic NASAL BID #1 tube ALPRAZolam [Xanax] 0.25 mg PO DAILY PRN PRN Reason: Anxiety Discharge Medication List Aspirin [Adult Low Dose Aspirin EC] 81 mg PO DAILY 05/09/20 [History] Atorvastatin [Lipitor] 80 mg PO HS 08/02/20 [History] Losartan [Cozaar] 25 mg PO DAILY 08/02/20 [History] Albuterol Inhaler [Ventolin Hfa Inhaler] 1 puff INHALATION RT-QID PRN 11/23/20 [History] Fluticasone/Umeclidin/Vilanter [Trelegy Ellipta 100-62.5-25] 1 inhalation I NHALATION DAILY 11/23/20 [History] Acetaminophen Tab [Tylenol] 650 mg PO Q4HR PRN tab 12/05/20 [Rx] Amiodarone [Cordarone] 400 mg PO BID #40 tab 12/05/20 [Rx] Apixaban [Eliquis] 5 mg PO BID #60 tab 12/05/20 [Rx] Furosemide [Lasix] 40 mg PO DAILY #30 tab 12/05/20 [Rx] Metoprolol Tartrate [Lopressor] 50 mg PO BID #60 tab 12/05/20 [Rx] Pantoprazole [Protonix] 40 mg PO AC-BRKFST #30 tablet. 12/05/20 [Rx] Sennosides-Docusate Sodium [Senokot-S] 2 each PO HS PRN tab 12/05/20 [Rx] Follow up Appointment(s)/Referral(s): Luis Felipe Madrigal MD [STAFF PHYSICIAN] - 12/21/20 1:15 pm Rosario Hernandez NPC [Nurse Practitioner] - 12/10/20 11:00 am (To be seen in the surgeon's office, [facility], [address], [address]) [facility] [NON-STAFF] - 4 Weeks (You will be called for evaluation to begin Cardiac Rehab in approximately 4 weeks) Aakash Adame MD [STAFF PHYSICIAN] - 2 Weeks (Office will call with appointment) Johnson Hargrove MD [STAFF PHYSICIAN] - 12/27/20 9:30 am [facility], [NON-STAFF] - Sydnie Reynolds MD [Primary Care Provider] - 12/17/20 2:00 pm Ambulatory/Diagnostic Orders: Complete Blood Count w/diff [LAB.AMB] Time Frame: 3 Days, Location: None Selected Comprehensive Metabolic Panel [LAB.AMB] Time Frame: 3 Days, Location: None Selected Patient Instructions/Handouts: A-fib (Atrial Fibrillation) (DC), CABG (Coronary Artery Bypass Graft) (DC) Activity/Diet/Wound Care/Special Instructions: DISCHARGE INSTRUCTIONS: 1. No driving for 4 weeks, or until physician gives their ok. 2. The patient should sleep in their own bed, no medical bed needed. 3. Stairs are not an issue. If the bedroom is upstairs, it is advised that the patient go up at night and down in the morning for the first week. Go slowly, using handrail and take 1 step at a time. 4. MARIS hose are to be worn for 30 days or until physician discontinues. 5. Heart hugger is to be worn 100% of the time until physician discontinues.(except when showering) 6. No lifting, pushing, or pulling more than 10 pounds for 12 weeks. The physician will advise of any restriction changes. 7. The patient is expected to continue the prescribed walking program. 8. Continue pain control per as needed orders. 9. Continue with incentive spirometry and splinting/heart hugger until otherwi se directed by the physician. 10. Must shower daily using liquid antibacterial soap and a separate white washcloth for each individual incision. 11. Routine sternal incision care. No powders, lotions, ointments on incisions. No dressings are necessary on incisions unless they are draining. Dermabond tape is to remain on sternal incision until surgeon follow-up. 12. Please call surgeon/PAYROLL TAX SPECIALIST for temp greater than 101 F or purulent drainage from incisions. 13. All prescriptions given by surgeon for 30 days. Refills need to be filled through food cart attendant/primary care physician. 14. A Red armband has been placed on the patient. It should be worn for 30 days post surgery and will be removed by the cardiac surgeons. If an ER visit is necessary, please make sure the number on the Red armband is called. 15. You have been referred to and are expected to begin Cardiac Rehab in approximately 4-6 weeks. HOME HEALTH SERVICES TO PROVIDE: RN SKILLED HOME CARE SERVICES FOR POST-OP SURGICAL PATIENTS WITH THE FOLLOWING: Coronary Artery Bypass Surgery (CABG), Mitral Valve Replacement/Repair ( MVR), Aortic Valve Replacement/Repair (AVR) RN TO CONTINUE EDUCATION FROM ``ROAD TO A HEALTH HEART PATIENT EDUCATION MANUAL (GIVEN TO PATIENT IN THE HOSPITAL) MEDICATION RECONCILIATION WITH EDUCATION NEEDED ON FIRST HOME VISIT EMPHASIZE IMPORTANCE OF WEARING BREAST SUPPORT/HEART HUGGER ENCOURAGE USE OF INCENTIVE SPIROMETER 10 X EVERY HOUR WHILE AWAKE ENCOURAGE UTILIZATION OF LOWER EXTREMITY COMPRESSION STOCKINGS/MARIS HOSE and ELEVATE LEGS ABOVE LEVEL OF HEART WHILE AT REST. ENCOURAGE AMBULATION 3-5x/day INCREASING TOLERATES, WHILE AVOIDING EXTREMES IN TEMPERATURE FREQUENCY: RN TO OPEN THE PATIENT WITHIN 24 HOURS OF DISCHARGE FROM THE HOSPITAL WITH TELEHEALTH INSTALLED AT [facility] [place], RN TO VISIT 2-3 X A WEEK FOR 4 WEEKS ESTABLISHED BY PATIENT NEEDS. LABORATORY: CBC, CMP TO BE DRAWN ON THE THIRD DAY HOME, (RAN STAT) FAX RESULTS TO . TELEHEALTH PARAMETERS: WEIGHT: NOTIFY MD OF WEIGHT GAIN OF 2 LBS IN 24 HOURS OR 5 LBS IN ONE WEEK HR: NOTIFY MD OF HR <55 BPM OR HR>100 BPM BP: NOTIFY MD IF BP <90/55 OR BP>140/100 O2 SAT: NOTIFY MD IF PO2<93% ON ROOM AIR SEND TELEHEALTH REPORT TO LOG MARKER AND CARDIOVASCULAR SURGEON THE FIRST WEEK OF CARE AND THEN BI-WEEKLY. PLEASE ADDITIONALLY COMMUNICATE ANY ABNORMALS AND NEW FINDINGS TO THE SURGEONS OFFICE. For any questions or concerns please call decorating consultant Rosario @ or Emiliano @ Discharge Disposition: HOME WITH HOME HEALTH SERVICES
--- NOTE | 2020-12-05 17:55 | PN ---
PROGRESS NOTE DATE OF SERVICE: 12/05/2020 This 75-year-old woman who was admitted with CAD, CABG is improving significantly. No chest pain. No palpitations. No fever. The patient has some atelectasis. The patient has COPD, also. PHYSICAL EXAMINATION: Alert and oriented x3. Pulse is 120, blood pressure 130/63, respirations 16, temperature normal, pulse ox 95% on room air. HEENT: Conjunctivae normal. NECK: No jugular venous distention. CARDIOVASCULAR SYSTEM: S1, S2 muffled. RESPIRATORY SYSTEM: Breath sounds diminished at the bases. A few scattered rhonchi. ABDOMEN: Soft, non-tender. NERVOUS SYSTEM: No focal deficit. LABS: WBC 9.2, hemoglobin 10.9. ASSESSMENT: 1. Coronary artery disease, status post coronary artery bypass grafting. 2. Possible acute respiratory failure, as expected, which is improved. 3. Hypercapnia requiring reintubation. 4. Coronary artery disease. 5. Peripheral vascular disease. 6. Hypertension. 7. Hyperlipidemia. 8. Chronic obstructive pulmonary disease. 9. Mitral regurgitation. 10.Obstructive sleep apnea. 11.History of congestive heart failure with chronic systolic dysfunction, ejection fraction 40%. 12.Elevated blood glucose. RECOMMENDATIONS AND DISCUSSION: I recommend to continue current medications, continue symptomatic treatment. Otherwise at this time I recommend resuming the home medications, bronchodilators. Closely follow with Dr. Reynolds as recommended. Rest of the recommendations per Cardiothoracic Surgery, Cardiology and Pulmonology. MMODL / IJN: [id number] /
== END 2020-12-05 14:04 | disposition home health service (06) | DRG 235 ==
LOC: 2ORMAIN 05:31 → 2SICU 14:32 → 3SCARD 12-02 12:58
PROVIDERS: ADMIT Thoracic Surgery (Cardiothoracic Vascular Surgery); ATTEND Thoracic Surgery (Cardiothoracic Vascular Surgery)
PROC: 5A1935Z Respiratory Ventilation, Less than 24 Consecutive Hours (ICD-10-PCS; 2020-11-29)
PROC: 0BH17EZ Insertion of Endotracheal Airway into Trachea, Via Natural or Artificial Opening (ICD-10-PCS; 2020-11-29)
PROC: 02100Z9 Bypass Coronary Artery, One Artery from Left Internal Mammary, Open Approach (ICD-10-PCS; principal; 2020-11-29 08:00)
PROC: 06BP4ZZ Excision of Right Saphenous Vein, Percutaneous Endoscopic Approach (ICD-10-PCS; principal; 2020-11-29 08:00)
PROC: 02L70CK Occlusion of Left Atrial Appendage with Extraluminal Device, Open Approach (ICD-10-PCS; principal; 2020-11-29 08:00)
PROC: B246ZZ4 Ultrasonography of Right and Left Heart, Transesophageal (ICD-10-PCS; principal; 2020-11-29 08:00)
PROC: 021109W Bypass Coronary Artery, Two Arteries from Aorta with Autologous Venous Tissue, Open Approach (ICD-10-PCS; principal; 2020-11-29 08:00)
PROC: 5A09357 Assistance with Respiratory Ventilation, Less than 24 Consecutive Hours, Continuous Positive Airway Pressure (ICD-10-PCS; 2020-11-29 08:00)
DX: I25.10 Atherosclerotic heart disease of native coronary artery without angina pectoris (principal); J96.02 Acute respiratory failure with hypercapnia; I50.23 Acute on chronic systolic (congestive) heart failure; J96.11 Chronic respiratory failure with hypoxia; N17.9 Acute kidney failure, unspecified; E87.2 Acidosis; T82.855A Stenosis of coronary artery stent, initial encounter; D62 Acute posthemorrhagic anemia; J93.83 Other pneumothorax; J98.11 Atelectasis; D69.6 Thrombocytopenia, unspecified; I27.20 Pulmonary hypertension, unspecified; I48.0 Paroxysmal atrial fibrillation; I11.0 Hypertensive heart disease with heart failure; I73.9 Peripheral vascular disease, unspecified; J44.9 Chronic obstructive pulmonary disease, unspecified; G35 Multiple sclerosis; J98.01 Acute bronchospasm; I34.0 Nonrheumatic mitral (valve) insufficiency; G47.33 Obstructive sleep apnea (adult) (pediatric); R73.9 Hyperglycemia, unspecified; E78.5 Hyperlipidemia, unspecified; I25.2 Old myocardial infarction; M19.90 Unspecified osteoarthritis, unspecified site; Z99.81 Dependence on supplemental oxygen; Z79.82 Long term (current) use of aspirin; Z79.02 Long term (current) use of antithrombotics/antiplatelets; Z79.51 Long term (current) use of inhaled steroids; Z79.899 Other long term (current) drug therapy; Z87.891 Personal history of nicotine dependence; Z87.01 Personal history of pneumonia (recurrent); Z95.5 Presence of coronary angioplasty implant and graft; Z90.49 Acquired absence of other specified parts of digestive tract; Z87.19 Personal history of other diseases of the digestive system; Z87.2 Personal history of diseases of the skin and subcutaneous tissue; Z90.89 Acquired absence of other organs; Z95.820 Peripheral vascular angioplasty status with implants and grafts; Z98.890 Other specified postprocedural states; Z88.8 Allergy status to other drugs, medicaments and biological substances; Z80.3 Family history of malignant neoplasm of breast; Z80.8 Family history of malignant neoplasm of other organs or systems; Y83.1 Surgical operation with implant of artificial internal device as the cause of abnormal reaction of the patient, or of later complication, without mention of misadventure at the time of the procedure
CPT/HCPCS: 71045; 71046; 80048; 80053; 82330; 82805; 83735; 84132; 85025; 85027; 85520; 85610; 85730; 86850; 86891; 86900; 86901; 86920; 94003; 94640; 94660; 94760

== ENCOUNTER → 2020-12-14 | Outpatient (CLI) | payer MEDICARE ==
--- NOTE | 2020-12-14 14:13 | XR ---
EXAMINATION TYPE: XR chest 2V DATE OF EXAM: 12/14/2020 COMPARISON: 12/05/2020 HISTORY: Shortness of breath TECHNIQUE: Frontal and lateral views of the chest are obtained. FINDINGS: Heart size enlarged. Moderate bilateral pleural effusions. Bilateral perihilar interstitia l opacities suggestive of edema. Consider congestive heart failure. There are also bibasilar airspace opacities suggestive of atelectasis or developing pneumonia. No pneumothorax. Degenerative changes a nd osteopenia of the thoracic spine. IMPRESSION: 1. Cardiomegaly, bilateral perihilar interstitial opacities and moderate bilateral pleural effusions. Consider congestive heart failure. 2. Bibasilar airspace opacities suggestive of atelectasis or developing pneumonia.
[2020-12-14 14:24] LABS: Basophils # (A) 0.1 k/uL (0-0.2); Basophils % (A) 1 %; Eosinophils # (A) 0.4 k/uL (0-0.7); Eosinophils % (A) 4 %; HCT 30.4 % (34.0-46.0); Hypochromasia Moderate; Lymphocytes # (A) 1.9 k/uL (1.0-4.8); Lymphocytes % (A) 17 %; MCH 31.8 pg (25.0-35.0); MCHC 32.1 g/dL (31.0-37.0); MCV 99.1 fL (80.0-100.0); Mean Platelet Volume 7.4; Monocytes # (A) 0.5 k/uL (0-1.0); Monocytes % (A) 4 %; Neutrophils # (A) 8.5 k/uL (1.3-7.7); Neutrophils % (A) 74 %; Platelet Count 473 k/uL (150-450); RBC 3.07 m/uL (3.80-5.40); RDW 14.5 % (11.5-15.5); WBC 11.5 k/uL (3.8-10.6)
[2020-12-14 14:28] LABS: HGB 9.8 gm/dL (11.4-16.0)
[2020-12-14 14:31] LABS: ALT 14 U/L (4-34); AST 20 U/L (14-36); African American GFR (CKD) 88 (>60 ml/min/1.73 sqM); Albumin 2.8 g/dL (3.5-5.0); Alkaline Phosphatase 92 U/L (38-126); Anion Gap 3 mmol/L; Blood Urea Nitrogen 22 mg/dL (7-17); Calcium 8.7 mg/dL (8.4-10.2); Carbon Dioxide 30 mmol/L (22-30); Chloride 107 mmol/L (98-107); Globulin 2.8 g/dL; Glucose 92 mg/dL (74-99); Non-African American GFR(CKD) 76 (>60 ml/min/1.73 sqM); Potassium 4.9 mmol/L (3.5-5.1); Sodium 140 mmol/L (137-145); Total Bilirubin 0.2 mg/dL (0.2-1.3); Total Protein 5.6 g/dL (6.3-8.2)
== END | disposition home or self-care (01) ==
LOC: LABWHC1 12:13
PROVIDERS: ATTEND Surgery
DX: I11.0 Hypertensive heart disease with heart failure (principal); I50.9 Heart failure, unspecified; E87.5 Hyperkalemia; D64.9 Anemia, unspecified; J90 Pleural effusion, not elsewhere classified; R91.8 Other nonspecific abnormal finding of lung field
CPT/HCPCS: 36415; 71046; 80053; 85025

== ENCOUNTER → 2021-05-14 | Outpatient (CLI) | payer MEDICARE ==
--- NOTE | 2021-05-14 12:41 | MM ---
Reason for exam: clinical finding. History: Patient is postmenopausal. Family history of breast cancer in mother and breast cancer in maternal aunt. Benign excisional biopsy of both breasts. Benign lumpectomy of both breasts. Took hormonal contraceptives for 6 months. Indicated problem(s): palpable abnormality in the right breast. Physical Findings: Nurse Summary: 1cm nodule in the right breast at 11 o'clock, 0.5cm nodule in the left breast at 2 o'clock (nurse jazmyne). MG 3D Diag Mammo W/Cad PAUL Bilateral CC, MLO, XCCL, CC with magnification, and LM with magnification view(s) were taken. The breast tissue is heterogeneously dense. This may lower the sensitivity of mammography. Irregular mass palpable right upper outer quadrant. Nurse palpated area 2 o'clock left breast. Dense tissues area present. 10 o'clock grouped calcifications left breast, some round, some heterogeneous, stereotactic biopsy recommended. These results were verbally communicated with the patient and result sheet given to the patient on 05/14/21. ASSESSMENT: Incomplete: need additional imaging evaluation, BI-RAD 0 RECOMMENDATION: Ultrasound of both breasts.
--- NOTE | 2021-05-14 12:44 | USB ---
Reason for exam: additional evaluation requested from abnormal screening. History: Patient is postmenopausal. Family history of breast cancer in mother and breast cancer in maternal aunt. Benign excisional biopsy of both breasts. Benign lumpectomy of both breasts. Took hormonal contraceptives for 6 months. US Breast BILAT Right complete breast ultrasound includes all four quadrants, the retroareolar region and axilla. Finding demonstrates a 2.4 x 1.2 x 2.1cm oval, solid, hypoechoic lesion at 10 o'clock. Left complete breast ultrasound includes all four quadrants, the retroareolar region and axilla. Finding demonstrates bilateral complete dense tissue under left BB at 2 o'clock. No axillary CAD. These results were verbally communicated with the patient and result sheet given to the patient on 05/14/21. ASSESSMENT: Suspicious, BI-RAD 4 RECOMMENDATION: Ultrasound core biopsy of the right breast. Stereotactic core biopsy of the left breast. Called office with mammographic findings and has scheduled an appointment for the patient for 05/16/21 at 3:[address] Reynolds. PRELIMINARY REPORT CALLED AND FAXED TO DR. REYNOLDS ON 05/14/21.
== END | disposition home or self-care (01) ==
LOC: RADMAMWWP 11:02
PROVIDERS: ATTEND Internal Medicine
DX: N63.11 Unspecified lump in the right breast, upper outer quadrant (principal); N63.21 Unspecified lump in the left breast, upper outer quadrant; Z80.3 Family history of malignant neoplasm of breast
CPT/HCPCS: 77066; 76641; G0279; 77062

== ENCOUNTER → 2021-05-17 | Outpatient (CLI) | payer MEDICARE ==
[2021-05-17 07:52] VITALS: BP 172/79; PULSE 52; RESP 14; TEMP 98.3
--- NOTE | 2021-05-17 08:57 | P.GSHP ---
History of Present Illness H&P Date: 05/17/21 Chief Complaint: lump in right breast, abnormal bilateral mammogram Sharmila is a 75-year-old white female seen in consultation for Dr. Reynolds regarding a mass in her right breast and bilateral abnormal mammograms. The patient states she noted the mass approximately 7 months ago. It has increased in size. Her last mammogram was approximately 40 years ago until the recent mammogram of [id number]. On the mammogram in the right breast at the 10 o'clock position there is an irregular mass, and in the left breast some heterogeneous calcifications were noted. An ultrasound was recommended of both breast. On the ultrasound of the right breast a 2.4 x 2.1 cm solid mass was noted at 10:00. In the left breast dense tissue was noted at 2:00. Ultrasound core biopsy of the right breast was recommended and stereotactic core biopsy of the left breast was recommended. She has had bilateral open biopsies in the remote past. They were benign. She has had no recent trauma or infection in the breast. Her pain medication is done through neurology Javier Felipe; Dr. Morgan Caffeine: 2 pots coffee/day now down to 3 cups/day nicotine: stopped 1 year ago, was 3 PPD; had smoked since chocolate: several times/week Family history: mother: breast metastasis to brain; dx. in 80's maternal aunt: breast and ovarian dx. in 40's maternal cousin: cervical and breast cancer Hormonal History: menarche: 15 , breast fed: no, age at first : 24 menopause: mid 40's BCP: 6 months in her 30's hormones: 6 months at menopause Surgical history: 1. open heart surgery November 29; tripple bypass 2. stints in legs bilateral 3. stints in heart 4. appendectomy 5. tonsil 6. bilateral breast biopsies Medical History: multiple sclerosis since 2006 sleep apnea uses oxygen at night Social history: Nicotine: 3 packs per day until last year stopped approximately one year ago smoked since she was 15 alcohol: none drugs: none - Constitutional Constitutional: Denies chills, Denies fever - EENT Eyes: bilateral bulging eye, denies blurred vision, denies pain Ears: bilateral: decreased hearing, deny: tinnitus Ears, nose, mouth and throat: Reports headache, Denies sore throat - Breasts Breasts: bilateral: as per HPI - Cardiovascular Comment: coronary bypass surgery Cardiovascular: Reports chest pain, Reports shortness of breath - Respiratory Respiratory: Reports as per HPI - Gastrointestinal Gastrointestinal: Reports constipation, Denies abdominal pain, Denies diarrhea, Denies nausea, Denies vomiting - Genitourinary (Female) Genitourinary: Denies dysuria, Denies hematuria - Menstruation Menstruation: Reports postmenopausal - Musculoskeletal Comment: arthritis back and hips - Integumentary Integumentary: Denies pruritus, Denies rash - Neurological Comment: hands numb and tingling - Psychiatric Psychiatric: Reports anxiety, Reports depression - Endocrine Comment: lost 25 pounds since November 2020 Endocrine: Reports fatigue, Reports weight change - Hematologic/Lymphatic Comment: aspirin, eliquis - Allergic/Immunologic Allergic/Immunologic: Reports as per HPI Past Medical History Past Medical History: COPD, Hyperlipidemia, Hypertension, Neurologic Disorder, Osteoarthritis (OA), Skin Disorder, Sleep Apnea/CPAP/BIPAP, Vascular Disorder Additional Past Medical History / Comment(s): "leaky mitral valve", wound left foot-multiple areas, seen in wound center, [place], occasional use of oxygen for sleep apnea, doesn't use CPAP. MS History of Any Multi-Drug Resistant Organisms: None Reported Past Surgical History: Appendectomy, Breast Surgery, Heart Catheterization With Stent, Tonsillectomy Additional Past Surgical History / Comment(s): joya benign breast biopsy, leg stents bilat. Past Anesthesia/Blood Transfusion Reactions: No Reported Reaction, Motion Sickness Additional Past Anesthesia/Blood Transfusion Reaction / Comment(s): no hx blood transfusion Date of Last Stent Placement:: 2009 Additional Past Alcohol Use History / Comment(s): smoker since age 17 1-1 1/2ppd, quit smoking 2 month ago - Past Family History Father Family Medical History: No Reported History Mother Family Medical History: Cancer Additional Family Medical History / Comment(s): breast and brain Medications and Allergies Home Medications Medication Instructions Recorded Confirmed Type Aspirin [Adult Low Dose Aspirin EC] 81 mg PO DAILY 05/09/20 05/17/21 History Atorvastatin [Lipitor] 80 mg PO BID 08/02/20 05/17/21 History Albuterol Inhaler [Ventolin Hfa 1 puff INHALATION RT-QID PRN 11/23/20 05/17/21 History Inhaler] Acetaminophen Tab [Tylenol] 650 mg PO Q4HR PRN tab 12/05/20 05/17/21 Rx Apixaban [Eliquis] 5 mg PO BID #60 tab 12/05/20 05/17/21 Rx Metoprolol Tartrate [Lopressor] 50 mg PO BID #60 tab 12/05/20 05/17/21 Rx HYDROcodone/APAP 5-325MG [[place] 1 tab PO Q6HR PRN 7 Days #30 tab 12/10/20 05/17/21 Rx 5-325] Baclofen 10 mg PO TID PRN 05/17/21 05/17/21 History Fluticasone/Umeclidin/Vilanter 1 inhalation INHALATION DAILY 05/17/21 05/17/21 History [Trelegy Ellipta 100-62.5-25] Furosemide [Lasix] 20 mg PO BID 05/17/21 05/17/21 History Tiotropium Br/Olodaterol HCl 1 spray INHALATION DAILY 05/17/21 05/17/21 History [Stiolto Respimat Inhal [place]] traMADol HCL 50 mg PO BID PRN 05/17/21 05/17/21 History Allergies Allergy/AdvReac Type Severity Reaction Status Date / Time sumatriptan [From Imitrex] Allergy Chest Pain Verified 05/17/21 07:29 Surgical - Exam BMI 24.4 - General no distress - Eyes normal ocular movement - ENT normal nares - Neck no masses, trachea midline - Respiratory normal respiratory effort - Cardiovascular Heart Sounds: normal: S1, S2 - Abdomen Abdomen: soft - Integumentary Well-healed scar from coronary artery bypass graft; bilateral scars on breast from prior biopsies - Neurologic no disoriented, no combative - Musculoskeletal uses a cane, or a walker, or a wheel chair - Psychiatric oriented to time, oriented to person, oriented to place, speech is normal, memory intact Breast Exam: BRA: 36C inspection: bilateral grade 3 ptosis; bilateral scars from prior biopsies palpation: right breast: Multi-positional exam mass upper outer quadrant approximately 2 cm in size no other dominant masses or nodules of concern Right axilla: Shotty adenopathy Left breast: Multi-positional exam fibrocystic changes no dominant masses or nodules of concern Left axilla: No adenopathy of concern Results Mammogram and ultrasound reviewed with Dr. Alston Assessment and Plan Assessment: Impression: 1. Palpable mass right breast upper outer quadrant corresponding to mammogram and ultrasound abnormality, microcalcifications of concern left breast 2. Fibrocystic breast changes 3. Family history breast cancer 4. Personal history of multiple sclerosis 5. Cardiac disease/recent coronary artery bypass grafting 6. Atherosclerotic disease bilateral lower extremity stents 7. COPD 8. Hyperlipidemia 9. Hypertension 10. Sleep apnea 11. growth between C1 and C3/ waiting for appointment at [facility] [phone] Plan: 1. Patient is presently on Eloquis we will asked permission to stop the Eloquis such that the patient can have an ultrasound core biopsy of the right breast and a stereotactic core biopsy of the left breast 2. Follow-up after biopsies 3. clearance to stop eloquis prior to biopsy Cc: Dr. Reynolds
== END ==
LOC: WWCWWP 07:08
PROVIDERS: ATTEND Surgery
DX: N60.12 Diffuse cystic mastopathy of left breast (principal); N63.11 Unspecified lump in the right breast, upper outer quadrant; R92.0 Mammographic microcalcification found on diagnostic imaging of breast; J44.9 Chronic obstructive pulmonary disease, unspecified; Z87.39 Personal history of other diseases of the musculoskeletal system and connective tissue; Z95.1 Presence of aortocoronary bypass graft; I70.203 Unspecified atherosclerosis of native arteries of extremities, bilateral legs; Z80.3 Family history of malignant neoplasm of breast; E78.5 Hyperlipidemia, unspecified; I10 Essential (primary) hypertension; G47.30 Sleep apnea, unspecified; M19.90 Unspecified osteoarthritis, unspecified site; Z87.891 Personal history of nicotine dependence; Z79.82 Long term (current) use of aspirin; Z79.899 Other long term (current) drug therapy

== ENCOUNTER → 2021-06-05 | Day surgery (SDC) | payer MEDICARE ==
[2021-06-05 07:44] VITALS: RESP 12
[2021-06-05 09:17] VITALS: BP 179/78; PULSE 66; TEMP 98.7
--- NOTE | 2021-06-05 11:41 | USB ---
EXAMINATION TYPE: US biopsy breast VAD RT, MG post biopsy diagnostic mammo RT wo CAD DATE OF EXAM: 06/05/2021 CLINICAL HISTORY: 75-year-old female N63 BREAST LUMP,MASS. TECHNIQUE: Ultrasound guided core biopsy of the right breast. COMPARISON: 05/14/2021 FINDINGS: The procedure of ultrasound guided core biopsy was explained to the patient. Benefits, alternatives, and risks were discussed. An informed consent was then obtained. Timeout was performed. Initial scanning shows the heterogeneous hypoechoic area at the 10:00 position. The patient was placed in supine positioning for imaging and for the procedure. The overlying skin was prepped and draped in usual sterile fashion. Lidocaine was used as anesthetic into the skin and subcutaneous tissue up to area of concern in the 10:00 right breast. Under ultrasound guidance, a 13-gauge vacuum-assisted mammotome Elite biopsy gun was used to obtain 6 core samples. Following this, a wing clip was left in lesion. The patient tolerated the procedure well without any immediate complication. The patient was kept in the radiology department for short stay after the procedure and then discharged home in stable condition. Post procedure mammogram shows wing clip at the site of architectural distortion. IMPRESSION: 1. Successful, uncomplicated ultrasound guided core biopsy of area of concern in the 10:00 right breast corresponding to the patient's palpable site and area of architectural distortion on mammogram, full pathology results to follow. 2. If benign results, given continued growth and mammographic appearance, excision would need to be considered. 3. The patient scheduled for stereotactic core needle biopsy of the left breast next week for calcifications. Pathology Results: Malignant RIGHT BREAST, ULTRASOUND GUIDED CORE BIOPSY: Invasive lobular carcinoma. See Surgical Pathology Cancer Case Summary and Comment. Recommendation Surgical consult of the right breast. Await results for left stereotactic core biopsy. [facility]
== END ==
LOC: RADUSWWP 07:17
PROVIDERS: ATTEND Surgery
DX: N63.20 Unspecified lump in the left breast, unspecified quadrant (principal); Z88.8 Allergy status to other drugs, medicaments and biological substances; Z17.0 Estrogen receptor positive status [ER+]
CPT/HCPCS: 88305; 88342; 88341; 77065; 19083; A4648; J2001

== ENCOUNTER → 2021-06-13 | Day surgery (SDC) | payer MEDICARE ==
[2021-06-13 07:53] VITALS: RESP 18; TEMP 97.6
[2021-06-13 10:06] VITALS: BP 182/68; PULSE 67
--- NOTE | 2021-06-18 11:37 | MM ---
Sharmila is a 75-year-old female noted to have calcifications of concern in her left breast at the 10 o'clock position. A stereotactic core biopsy was recommended. The risk and benefits of the procedure were discussed with the patient. She understood and wished to proceed. The patient was brought to the stereotactic core biopsy room. She was positioned prone on the lo-rad table. A CC from above approach was utilized. The breast was prepped using Betadine. 20 mL of 1% lidocaine were used to anesthetize the area of concern. A 9-gauge Petit vacuum-assisted core rotating biopsy needle was driven to the correct coordinates after the lesion had been targeted. A prefire film was obtained. The needle was fired and post-fire film was obtained. The needle appeared to be in the correct location. 13 core biopsy specimens were obtained. Radiograph of the specimen revealed that calcifications of concern were present. A secure rah top hat lacer was placed. A post biopsy mammogram revealed the marker to be in the correct location. The specimen was sent to pathology. The patient will follow-up with Dr. Padron next week. The patient has a known right breast invasive ductal carcinoma and this was discussed with the patient and her prior to her stereotactic core biopsy. This will be further discussed in treatment planning after results from the left breast stereotactic core biopsy are available. YULY
== END ==
LOC: RADMAMWWP 07:05
PROVIDERS: ATTEND Surgery
DX: D24.2 Benign neoplasm of left breast (principal)
CPT/HCPCS: 88305; 19081; A4648; J2001

== ENCOUNTER → 2021-06-13 | Outpatient (CLI) | payer MEDICARE ==
[2021-06-13 07:36] VITALS: BP 185/78; PULSE 70; RESP 18; TEMP 97.6
--- NOTE | 2021-06-13 16:55 | P.PCN ---
Date of Procedure: 06/13/21 Preoperative Diagnosis: Sharmila Ayers is a 75-year-old white female who underwent an ultrasound-guided core biopsy of the right breast which was positive for invasive ductal carcinoma. She was recommended to undergo a stereotactic core biopsy of the left breast secondary to calcifications of concern. I discussed this with the patient and her . Risks and benefits of the procedure have been discussed. They understand and wish to proceed. Postoperative Diagnosis: Same Procedure(s) Performed: Stereotactic core biopsy left breast Anesthesia: local Surgeon: Jonna Stapleton Pathology: other (Breast tissue/calcifications noted in specimen) Condition: stable Disposition: same day Indications for Procedure: Calcifications of concern left breast Operative Findings: Radiographic of specimen reveals calcifications Description of Procedure: Sharmila is a 75-year-old female noted to have calcifications of concern in her left breast at the 10 o'clock position. A stereotactic core biopsy was recommended. The risk and benefits of the procedure were discussed with the patient. She understood and wished to proceed. The patient was brought to the stereotactic core biopsy wound. She was positioned prone on the liver bed table. A CC from above approach was utilized. The breast was prepped using Betadine. 20 mL of 1% lidocaine were used to anesthetize the area of concern. A 9-gauge Petit vacuum-assisted core rotating biopsy needle was driven to the correct coordinates after the lesion had been targeted. A prefire film was obtained. The needle was fired and post-fire film was obtained. The needle appeared to be in the correct location. 13 core biopsy specimens were obtained. Radiograph of the specimen revealed that calcifications were present. A secure marked top Marker was placed. A post biopsy mammogram revealed the marker to be in the correct location. The specimen was sent to pathology. The patient will follow-up with Dr. Padron next week. The patient has a known right breast invasive ductal carcinoma and this was discussed with the patient and her prior to her stereotactic core biopsy. This will be further discussed in treatment planning after results from the left breast stereotactic core biopsy are available. Cc: Dr. Reynolds
== END ==
LOC: WWCWWP 07:09
PROVIDERS: ATTEND Surgery
DX: C50.911 Malignant neoplasm of unspecified site of right female breast (principal); R92.1 Mammographic calcification found on diagnostic imaging of breast; Z88.8 Allergy status to other drugs, medicaments and biological substances

== ENCOUNTER → 2021-06-27 | Outpatient (CLI) | payer MEDICARE ==
[2021-06-27 12:09] VITALS: BP 168/88; PULSE 92; RESP 18; TEMP 97.7
--- NOTE | 2021-06-27 12:49 | P.PN ---
Subjective Progress Note Date: 06/27/21 Principal diagnosis: right breast invasive ductal cancer stage IIA Sharmila is a 75-year-old white female seen in consultation for Dr. Reynolds regarding a mass in her right breast and bilateral abnormal mammograms. The patient states she noted the mass approximately 7 months ago. It has increased in size. Her last mammogram was approximately 40 years ago until the recent mammogram of [id number]. On the mammogram in the right breast at the 10 o'clock position there is an irregular mass, and in the left breast some heterogeneous calcifications were noted. An ultrasound was recommended of both breast. On the ultrasound of the right breast a 2.4 x 2.1 cm solid mass was noted at 10:00. In the left breast dense tissue was noted at 2:00. Ultrasound core biopsy of the right breast was recommended and stereotactic core biopsy of the left breast was recommended. She has had bilateral open biopsies in the remote past. They were benign. She has had no recent trauma or infection in the breast. She underwent a right breast ultrasound-guided core biopsy on [id number]. This revealed invasive ductal carcinoma grade 1 ER positive, NM negative, HER-2 negative. The patient then underwent a stereotactic core biopsy of the left breast on [id number]. This revealed fibrocystic changes including dense stromal fibrosis with focal fibroadenomatoid hyperplasia. Chills no complaints related to her most recent biopsy. Her pain medication is done through neurology Javier Felipe; Dr. Morgan She underwent an MRI performed on . 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 She has an appointment with neurology on July 04. She was seen and cleared for surgery by Dr. Montoay on May 27. Caffeine: 2 pots coffee/day now down to 3 cups/day nicotine: stopped 1 year ago, was 3 PPD; had smoked since 15 chocolate: several times/week Family history: mother: breast metastasis to brain; dx. in 80's maternal aunt: breast and ovarian dx. in 40's maternal cousin: cervical and breast cancer Hormonal History: menarche: 15 , breast fed: no, age at first : 24 menopause: mid 40's BCP: 6 months in her 30's hormones: 6 months at menopause Surgical history: 1. open heart surgery November 29; tripple bypass 2. stints in legs bilateral 3. stints in heart 4. appendectomy 5. tonsil 6. bilateral breast biopsies Medical History: multiple sclerosis since 2006 sleep apnea uses oxygen at night Social history: Nicotine: 3 packs per day until last year stopped approximately one year ago smoked since she was 15 alcohol: none drugs: none - Constitutional Constitutional: Denies chills, Denies fever - EENT Eyes: bilateral bulging eye, denies blurred vision, denies pain Ears: bilateral: decreased hearing, deny: tinnitus Ears, nose, mouth and throat: Reports headache, Denies sore throat - Breasts Breasts: bilateral: as per HPI - Cardiovascular Comment: coronary bypass surgery Cardiovascular: Reports chest pain, Reports shortness of breath - Respiratory Respiratory: Reports as per HPI - Gastrointestinal Gastrointestinal: Reports constipation, Denies abdominal pain, Denies diarrhea, Denies nausea, Denies vomiting - Genitourinary (Female) Genitourinary: Denies dysuria, Denies hematuria - Menstruation Menstruation: Reports postmenopausal - Musculoskeletal Comment: arthritis back and hips - Integumentary Integumentary: Denies pruritus, Denies rash - Neurological Comment: hands numb and tingling - Psychiatric Psychiatric: Reports anxiety, Reports depression - Endocrine Comment: lost 25 pounds since November 2020 Endocrine: Reports fatigue, Reports weight change - Hematologic/Lymphatic Comment: aspirin, eliquis - Allergic/Immunologic Allergic/Immunologic: Reports as per HPI Objective - Vital Signs Vital signs: Vital Signs Temp 97.7 F 06/27/21 12:07 Pulse 92 06/27/21 12:07 Resp 18 06/27/21 12:07 BP 168/88 06/27/21 12:07 Pulse Ox 96 06/27/21 12:07 Intake & Output 06/26/21 06/27/21 06/27/21 18:59 06:59 18:59 Weight 56.699 kg - Constitutional General appearance: Present: cooperative - EENT Eyes: Present: EOMI ENT: Present: hearing grossly normal - Neck Neck: Present: normal ROM - Respiratory Respiratory: bilateral: CTA - Cardiovascular Heart sounds: normal: S1, S2 - Gastrointestinal General gastrointestinal: Present: soft - Integumentary Integumentary: Present: normal turgor - Psychiatric Psychiatric: Present: A&O x's 3, appropriate affect, intact judgment & insight - Additional findings Additional findings: Breast Exam: BRA: 36B inspection: bilateral grade 3 ptosis palpation: right breast: multiplsitional exam mass UUQ 2.5 cm, no other dominate masses or nodules of concern right axilla: No adenopathy of concern Left breast: Multiple positional exam no dominant masses or nodules of concern Left axilla: No adenopathy of concern Assessment and Plan Assessment: Impression: 1. right breast Stage IIA invasive ductal cancer 2. cardiac stints/ open heart surgery 3. Meningioma Plan: 1. Presentation of case at tumor board 2. Cardiac clearance 3. Clearance from Dr. Reynolds 4. Clearance from neurology 5. right breast Needle localization lumpectomy, sentinel node biopsy possible axillary node dissection, optical plastic tissue transfer Risks and benefits of the procedure been discussed with the patient and her husb and. Risks include but are not limited to bleeding, infection, reaction to the anesthetic. Additionally we have discussed mastectomy versus lumpectomy and at this time she would prefer to save her breast. She understands that she will be getting radiation therapy. She understands the margins are positive she would need reexcision. Regarding the sentinel node biopsy we have talked about bleedi ng, infection, reaction to the anesthetic. Possibility of numbness to her inner arm as well as lymphedema and/or injury to the thoracodorsal and long thoracic nerves. They understand and wish to proceed. At this time we are awaiting clearance from neurology prior to proceeding. CC: Dr. Reynolds
== END ==
LOC: WWCWWP 11:59
PROVIDERS: ATTEND Surgery
DX: C50.911 Malignant neoplasm of unspecified site of right female breast (principal); D32.9 Benign neoplasm of meninges, unspecified; Z87.891 Personal history of nicotine dependence; Z95.5 Presence of coronary angioplasty implant and graft; Z88.8 Allergy status to other drugs, medicaments and biological substances

== ENCOUNTER 2021-07-18 12:57 | Emergency (ER) | payer MEDICARE ==
[2021-07-18 13:03] VITALS: BP 135/87; TEMP 98.4
[2021-07-18 13:58] VITALS: RESP 16
[2021-07-18] MEDS ORDERED: SODIUM CHLORIDE 0.9% 50 ML IVPB ONE (14:30)
[2021-07-18] MEDS ORDERED: CASIRIVIMAB (REGN10933) (EUA) 600 MG, IMDEVIMAB (REGN10987) (EUA) 600 MG in SODIUM CHLO... IVPB ONE (14:30)
--- NOTE | 2021-07-18 14:50 | ED ---
General Adult HPI - General Chief complaint: Recheck/Abnormal Lab/Rx Stated complaint: Covid test Time Seen by Provider: 07/18/21 13:10 Source: patient, family, RN notes reviewed Mode of arrival: ambulatory Limitations: no limitations - History of Present Illness Initial comments: This a 75-year-old female presents emergency Department with chief complaint of possible COVID-19. Patient states her was just here and tested positive. She is asymptomatic. Patient offers no complaints denies fevers chills cough congestion runny nose sore throat. - Related Data Home Medications Medication Instructions Recorded Confirmed Aspirin [Adult Low Dose Aspirin EC] 81 mg PO DAILY 05/09/20 06/13/21 Atorvastatin [Lipitor] 80 mg PO BID 08/02/20 06/13/21 Albuterol Inhaler [Ventolin Hfa 1 puff INHALATION RT-QID PRN 11/23/20 06/13/21 Inhaler] Baclofen 10 mg PO TID PRN 05/17/21 06/13/21 Furosemide [Lasix] 20 mg PO BID 05/17/21 06/13/21 Tiotropium Br/Olodaterol HCl 1 spray INHALATION DAILY 05/31/21 06/13/21 [Stiolto Respimat Inhal [place]] Previous Rx's Medication Instructions Recorded Acetaminophen Tab [Tylenol] 650 mg PO Q4HR PRN tab 12/05/20 Apixaban [Eliquis] 5 mg PO BID #60 tab 12/05/20 Metoprolol Tartrate [Lopressor] 50 mg PO BID #60 tab 12/05/20 HYDROcodone/APAP 5-325MG [[place] 1 tab PO Q6HR PRN 7 Days #30 tab 12/10/20 5-325] Allergies Allergy/AdvReac Type Severity Reaction Status Date / Time sumatriptan [From Imitrex] Allergy Chest Pain Verified 07/18/21 13:03 Review of Systems ROS Statement: Those systems with pertinent positive or pertinent negative responses have been documented in the HPI. ROS Other: All systems not noted in ROS Statement are negative. Past Medical History Past Medical History: COPD, Hyperlipidemia, Hypertension, Neurologic Disorder, Osteoarthritis (OA), Skin Disorder, Sleep Apnea/CPAP/BIPAP, Vascular Disorder Additional Past Medical History / Comment(s): "leaky mitral valve"; wound left foot-multiple areas, seen in wound center; MS; occasional use of oxygen for sleep apnea, doesn't use CPAP; History of Any Multi-Drug Resistant Organisms: None Reported Past Surgical History: Appendectomy, Breast Surgery, Heart Catheterization With Stent, Tonsillectomy Additional Past Surgical History / Comment(s): joya benign breast biopsy; leg stents bilat; nov 29 2020 open heart, ultrasound core biopsy right breast 06/16 Past Anesthesia/Blood Transfusion Reactions: Motion Sickness Additional Past Anesthesia/Blood Transfusion Reaction / Comment(s): no hx blood transfusion Date of Last Stent Placement:: 2009 Past Psychological History: Anxiety, Depression Smoking Status: Former smoker Past Alcohol Use History: Rare Past Drug Use History: None Reported - Past Family History Father Family Medical History: No Reported History Mother Family Medical History: Cancer Additional Family Medical History / Comment(s): breast and brain General Exam Limitations: no limitations General appearance: alert, in no apparent distress Head exam: Present: atraumatic, normocephalic, normal inspection Eye exam: Present: normal appearance, PERRL, EOMI. Absent: scleral icterus, conjunctival injection, periorbital swelling ENT exam: Present: normal exam, normal oropharynx, mucous membranes moist Neck exam: Present: normal inspection, full ROM. Absent: tenderness, meningismus, lymphadenopathy Respiratory exam: Present: normal lung sounds bilaterally. Absent: respiratory distress, wheezes, rales, rhonchi, stridor Cardiovascular Exam: Present: regular rate, normal rhythm, normal heart sounds. Absent: systolic murmur, diastolic murmur, rubs, gallop, clicks GI/Abdominal exam: Present: soft, normal bowel sounds. Absent: distended, tenderness, guarding, rebound, rigid Course Vital Signs 07/18/21 07/18/21 12:59 13:53 Temperature 98.4 F Pulse Rate 99 Respiratory 18 16 Rate Blood Pressure 135/87 O2 Sat by Pulse 100 Oximetry Medical Decision Making - Medical Decision Making pateint will monoclonal antibodies will be discharged in stable condition return parameters were discussed. - Lab Data Lab Results 07/18/21 Range/Units 13:08 Coronavirus (PCR) Detected A (Not Detectd) Disposition Clinical Impression: COVID-19 Disposition: HOME SELF-CARE Condition: Stable Instructions (If sedation given, give patient instructions): Coronavirus Disease 2019 (COVID-19) Additional Instructions: Please return to the Emergency Department if symptoms worsen or any other concerns. Is patient prescribed a controlled substance at d/c from ED?: No Referrals: Sydnie Reynolds MD [Primary Care Provider] - 1-2 days Time of Disposition: 14:49
[2021-07-18 15:57] VITALS: PULSE 68
== END 2021-07-18 15:56 | disposition home or self-care (01) ==
LOC: EC 12:57
DX: U07.1 COVID-19 (principal); I10 Essential (primary) hypertension; J44.9 Chronic obstructive pulmonary disease, unspecified; E78.5 Hyperlipidemia, unspecified; M19.90 Unspecified osteoarthritis, unspecified site; Z87.891 Personal history of nicotine dependence; Z79.899 Other long term (current) drug therapy; Z79.82 Long term (current) use of aspirin; Z79.51 Long term (current) use of inhaled steroids
CPT/HCPCS: 99283; 87635; Q0244

== ENCOUNTER → 2021-08-08 | Outpatient (CLI) | payer MEDICARE ==
[2021-08-08 17:17] LABS: Appearance,Urine Clear (Clear); Bilirubin,Urine Negative (Negative); Blood,Urine Negative (Negative); Color,Urine Yellow; Glucose,Urine (UA) Negative (Negative); Ketones,Urine Negative (Negative); Leukocyte Esterase,Urine Negative (Negative); Nitrite,Urine Negative (Negative); PH, Urine 5.5 (5.0-8.0); Protein,Urine Trace (Negative); Specific Gravity,Urine 1.029 (1.001-1.035); Urobilinogen,Urine <2.0 mg/dL (<2.0)
[2021-08-08 17:41] LABS: Partial Thromboplastin Time 25.5 sec (22.0-30.0); Prothrombin Time 10.6 sec (9.0-12.0)
[2021-08-08 23:11] LABS: Basophils # (A) 0.07 X 10*3/uL (0.00-0.10); Basophils % (A) 0.9 %; Eosinophils # (A) 0.12 X 10*3/uL (0.04-0.35); Eosinophils % (A) 1.5 %; HCT 38.5 % (37.2-46.3); HGB 11.3 g/dL (12.0-15.0); Lymphocytes # (A) 2.65 X 10*3/uL (0.90-5.00); Lymphocytes % (A) 32.2 %; MCH 26.2 pg (27.0-32.0); MCHC 29.4 g/dL (32.0-37.0); MCV 89.3 fL (80.0-97.0); Mean Platelet Volume 11.4 fL (9.5-12.2); Monocytes # (A) 0.52 X 10*3/uL (0.20-1.00); Monocytes % (A) 6.3 %; Neutrophils # (A) 4.84 X 10*3/uL (1.80-7.70); Neutrophils % (A) 58.9 %; Platelet Count 293 X 10*3/uL (140-440); RBC 4.31 X 10*6/uL (4.10-5.20); RDW 18.3 % (11.5-14.5); WBC 8.22 X 10*3/uL (4.50-10.00)
[2021-08-09 00:37] LABS: African American GFR (CKD) 85.3 (60.0-200.0); Albumin 3.8 g/dL (3.8-4.9); Albumin/Globulin Ratio 1.24 (1.60-3.17); Anion Gap 14.5 mmol/L (10.00-18.00); BUN/Creat Ratio 26.26 Ratio (12.00-20.00); Blood Urea Nitrogen 20.9 mg/dL (9.0-27.0); Calcium 9.1 mg/dL (8.7-10.3); Carbon Dioxide 22.5 mmol/L (20.0-27.5); Globulin 3.1 g/dL (1.6-3.3); Non-African American GFR(CKD) 73.6 (60.0-200.0); Potassium 4.1 mmol/L (3.5-5.5); Total Bilirubin 0.2 mg/dL (0.30-1.20); Total Protein 6.9 g/dL (6.2-8.2)
== END | disposition home or self-care (01) ==
LOC: LABWHC1 16:20
PROVIDERS: ATTEND Neurological Surgery
DX: D48.9 Neoplasm of uncertain behavior, unspecified (principal); M47.12 Other spondylosis with myelopathy, cervical region
CPT/HCPCS: 36415; 80053; 81003; 85025; 85610; 85730; 87070

== ENCOUNTER → 2021-09-05 | Outpatient (CLI) | payer MEDICARE ==
[2021-09-05 13:20] VITALS: BP 168/82; PULSE 97; RESP 20; TEMP 98.6
--- NOTE | 2021-09-05 14:07 | P.PN ---
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 Reynolds regarding a mass in her right breast and bilateral abnormal mammograms. The patient states she noted the mass approximately 7 months ago. It has increased in size. Her last mammogram was approximately 40 years ago until the recent mammogram of [id number]. On the mammogram in the right breast at the 10 o'clock position there is an irregular mass, and in the left breast some heterogeneous calcifications were noted. An ultrasound was recommended of both breast. On the ultrasound of the right breast a 2.4 x 2.1 cm solid mass was noted at 10:00. In the left breast dense tissue was noted at 2:00. Ultrasound core biopsy of the right breast was recommended and stereotactic core biopsy of the left breast was recommended. She has had bilateral open biopsies in the remote past. They were benign. She has had no recent trauma or infection in the breast. She underwent a right breast ultrasound-guided core biopsy on [id number]. This revealed invasive ductal carcinoma grade 1 ER positive, WI negative, HER-2 negative. The patient then underwent a stereotactic core biopsy of the left julissa ast on [id number]. This revealed fibrocystic changes including dense stromal fibrosis with focal fibroadenomatoid hyperplasia. Chills no complaints related to her most recent biopsy. Her pain medication is done through neurology Javier Felipe; Dr. Morgan She underwent an MRI performed on . 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 She has an appointment with neurology on July 04. She was seen and cleared for surgery by Dr. Montoya on May 27. 09-05-21 She had resection of the spinal tumor approximately 2 weeks ago at [facility]. I am awaiting clearance from neurosurgery. Procedure the patient had some lethargy was taken to the emergency department and a computed tomography scan was performed showing 2 strokes. The computed tomography scan was on . It was an acute/subacute microinfarct of the right frontal lobe place central gyrus near the apex. She was off all Eloquis for approximately 6 days. She takes this for atrial fibrillation and the stroke was attributed to being off the blood thinner. Caffeine: 2 pots coffee/day now down to 3 cups/day nicotine: stopped 1 year ago, was 3 PPD; had smoked since chocolate: several times/week Family history: mother: breast metastasis to brain; dx. in 80's maternal aunt: breast and ovarian dx. in 40's maternal cousin: cervical and breast cancer Hormonal History: menarche: 15 , breast fed: no, age at first : 24 menopause: mid 40's BCP: 6 months in her 30's hormones: 6 months at menopause Surgical history: 1. open heart surgery November 29; tripple bypass 2. stints in legs bilateral 3. stints in heart 4. appendectomy 5. tonsil 6. bilateral breast biopsies Medical History: multiple sclerosis since 2006 sleep apnea uses oxygen at night Social history: Nicotine: 3 packs per day until last year stopped approximately one year ago smoked since she was 15 alcohol: none drugs: none - Constitutional Constitutional: Denies chills, Denies fever - EENT Eyes: bilateral bulging eye, denies blurred vision, denies pain Ears: bilateral: decreased hearing, deny: tinnitus Ears, nose, mouth and throat: Reports headache, Denies sore throat - Breasts Breasts: bilateral: as per HPI - Cardiovascular Comment: coronary bypass surgery Cardiovascular: Reports chest pain, Reports shortness of breath - Respiratory Respiratory: Reports as per HPI - Gastrointestinal Gastrointestinal: Reports constipation, Denies abdominal pain, Denies diarrhea, Denies nausea, Denies vomiting - Genitourinary (Female) Genitourinary: Denies dysuria, Denies hematuria - Menstruation Menstruation: Reports postmenopausal - Musculoskeletal Comment: arthritis back and hips - Integumentary Integumentary: Denies pruritus, Denies rash - Neurological Comment: hands numb and tingling - Psychiatric Psychiatric: Reports anxiety, Reports depression - Endocrine Comment: lost 25 pounds since November 2020 Endocrine: Reports fatigue, Reports weight change - Hematologic/Lymphatic Comment: aspirin, eliquis - Allergic/Immunologic Allergic/Immunologic: Reports as per HPI Objective - Vital Signs Vital signs: Vital Signs Temp 98.6 F 09/05/21 13:13 Pulse 97 09/05/21 13:13 Resp 20 09/05/21 13:13 BP 168/82 09/05/21 13:13 Pulse Ox 98 09/05/21 13:13 Intake & Output 09/04/21 09/05/21 09/05/21 18:59 06:59 18:59 Weight 53.977 kg - Constitutional General appearance: Present: cooperative - EENT Eyes: Present: EOMI ENT: Present: hearing grossly normal - Neck Neck: Present: normal ROM - Respiratory Respiratory: bilateral: CTA - Cardiovascular Heart sounds: normal: S1, S2 - Gastrointestinal General gastrointestinal: Present: soft - Integumentary Integumentary: Present: normal turgor - Musculoskeletal Musculoskeletal Comment(s): uses a cane - Psychiatric Psychiatric: Present: A&O x's 3, appropriate affect, intact judgment & insight - Additional findings Additional findings: Breast Exam: BRA: 34C inspection: grade 3 ptosis bilateral palpation: right breast: Mass right breast lateral aspect approximately 2 cm in size freely mobile no other dominant masses or nodules of concern Right axilla: No adenopathy of concern Left breast: fibrocystic changes no dominant masses or nodules of concern Left axilla: No adenopathy of concern Assessment and Plan Assessment: Impression: Stage IIA left breast invasive ductal carcinoma Recent acute/subacute microinfarct of the right frontal lobe pre-central gyrus near the apex Recent neurosurgical removal of spinal cord tumor Cardiac history Pulmonary history Plan: The patient has opted for a mastectomy rather than a lumpectomy. Additionally after discussion with she and her [id number] she would like to have a sentinel node biopsy performed. Right mastectomy with sentinel node biopsy possible axillary node dissection Preoperative clearance from cardiology Preoperative clearance from pulmonary Preoperative clearance from neurosurgery Preoperative clearance from neurology Operative clearance from Dr. Reynolds Risk and benefits of the procedure discussed with the patient and her [id number]. Risk include but are not limited to bleeding, infection, reaction to the anesthetic. This axillary surgery includes possible injury to the thoracodorsal or long thoracic nerves as well as numbness to the interim or lymphedema. They understand and wish to proceed. Cc: Dr. Reynolds
== END ==
LOC: WWCWWP 13:00
PROVIDERS: ATTEND Surgery
DX: C50.911 Malignant neoplasm of unspecified site of right female breast (principal); I67.89 Other cerebrovascular disease; Z86.79 Personal history of other diseases of the circulatory system; Z87.09 Personal history of other diseases of the respiratory system; Z87.891 Personal history of nicotine dependence; Z88.8 Allergy status to other drugs, medicaments and biological substances

== ENCOUNTER 2021-09-17 07:33 | Day surgery (SDC) | payer MEDICARE ==
--- NOTE | 2021-09-13 08:16 | P.PN ---
Progress Note - Text Progress Note Date: 09/13/21 A have had a discussion with Dr. Rodolfo henao primary care physician as well as Dr. Baca medical oncology regarding Sharmila's case. We all have concerns secondary to her medical comorbidities and the high risk of operative intervention. We have determined that the safest course for the patient would be lumpectomy without a sentinel node biopsy and an aromatase inhibitor to follow. We have discussed the fact that she would not be receiving radiation therapy secondary to transportation difficulties. I have discussed this with the patient. The patient understands and would like to change the procedure from a mastectomy to a lumpectomy. We will attempt to do this with local and sedation. I've also discussed cost her case with her neurosurgeon who feels that she is stable for surgery. The procedure is being changed from a mastectomy to a right lumpectomy without sentinel node biopsy.
[2021-09-13 12:27] VITALS: BMI 24.2
[~2021-09-17 07:33] MED LIST changes: -ALBUMIN HUMAN 25% 50 ML IV ONE; -ALBUMIN HUMAN 5% 500 ML IVPB ONE; -ASPIRIN 325 MG TAB PO ONE; -ATORVASTATIN 10 MG TAB PO ONE; -CALCIUM CHLORIDE 100 MG/ML 10 ML SYRINGE IV ONE; -CARDIOPLEGIC SOLN (K+ 16 MEQ/L 1,000 ML with SODIUM BICARB (1 MEQ/ML) 20 ML, LIDOCAINE ... PERFUSION ONE; -CHLORHEXIDINE GLUCONATE 15 ML CUP MUCOUS MEM ONE; -CLEVIDIPINE BUTYRATE 25 MG in EMPTY BAG 1 BAG IV ONE; +DEXAMETHASONE SOD PHOSPHATE 4 MG/ML 1 ML VIAL IV ONE; -HEPARIN SODIUM 1,000 UN/ML (10ML VL) IV ONE; -HEPARIN SODIUM,PORCINE 5,000 UNIT in SODIUM CHLORIDE 0.9% 500 ML 500 ML IV ONE; +HEPARIN SODIUM,PORCINE/PF 5,000 UNIT/0.5 ML SYRINGE SQ PRN; +HYDROmorphone 0.5 MG/0.5 ML SYRINGE IVP PRN; -INSULIN REGULAR 100 UNIT in SODIUM CHLORIDE 0.9% 100 ML IV ONE; -LACTATED RINGERS 1,000 ML IV ONE; +LACTATED RINGERS 1,000 ML IV SCH; +LIDOCAINE 1% (10MG/ML) FOR IV START INTRADERMA PRN; -MAGNESIUM SULFATE MG 500 MG/ML IV ONE; -MANNITOL 25% 12.5 GM/50 ML VIAL IV ONE; -METOPROLOL TARTRATE 12.5 MG TAB PO ONE; +MIDAZOLAM 2 MG/2 ML VIAL IV PRN; -NITROGLYCERIN SL TABS 0.4 MG TAB SUBLINGUAL ONE; -NITROGLYCERIN-D5W PMX 25 MG/250 ML BTL IV ONE; -NITROGLYCERIN-D5W PMX 50 MG in DEXTROSE/WATER 1 250ML.BAG IV ONE; -NOREPINEPHRINE 4 MG in SODIUM CHLORIDE 0.9% 250 ML IV ONE; +ONDANSETRON 4 MG/2 ML VIAL IVP ONE; -PAPAVERINE 360 MG in SODIUM CHLORIDE 0.9% 90 ML IV ONE; -PHENYLEPHRINE 10 MG/ML VIAL IV ONE; -PHENYLEPHRINE 40 MG in SODIUM CHLORIDE 0.9% 250 ML IV ONE; -PROTAMINE SULFATE 10 MG/ML 25 ML VIAL IV ONE; -PROTAMINE SULFATE 250 MG in EMPTY BAG 1 BAG IV ONE; +Pre Op ABX Message 1 EACH MISC MISCELLANE ONE; -SODIUM BICARB 8.4% 50 ML SYR (1 MEQ/ML) IV ONE; -SODIUM CHLORIDE 0.9% 1,000 ML IV ONE; -TRANEXAMIC ACID 2,000 MG in SODIUM CHLORIDE 0.9% 80 ML IV ONE; -ceFAZolin 1,000 MG in SODIUM CHLORIDE 0.9% IRRIGATIO 1,000 ML IRRIGATION ONE; -propofoL 1,000 MG/100 ML VIAL IV ONE
[2021-09-17] MEDS ORDERED: fentaNYL (PF) 50 MCG/ML 2 ML AMP ONE (08:39)
[2021-09-17] MEDS ORDERED: MIDAZOLAM 2 MG/2 ML VIAL ONE (08:39)
[2021-09-17] MEDS ORDERED: PROPOFOL 10 MG/ML 20 ML VIAL IV ONE (08:39)
--- NOTE | 2021-09-17 08:50 | P.NAPBC ---
NAPBC Queries - NAPBC Queries Was patient's case review presented at [facility] tumor board? If no, comment.: Yes Was patient's pathology reviewed at [facility]? If no, comment.: Yes Was breast conservation surgery offered? If no, comment.: Yes Was sentinel node biopsy offered? If no, comment.: Yes (declined secondary to medical co-morbidities) Was diagnosis confirmed by percutaneous core biopsy? If no, comment.: Yes Is patient mastectomy patient?: No (see addendum) Clinical Stage: [id number]- stage IIA
[2021-09-17] MEDS ORDERED: LIDOCAINE 0.5% (PF) 5 MG/ML (50 ML SDV) SQ ONE ×3 (09:02)
--- NOTE | 2021-09-17 10:02 | P.OP ---
Date of Procedure: 09/17/21 Preoperative Diagnosis: Right breast invasive ductal carcinoma Postoperative Diagnosis: Same Procedure(s) Performed: Lumpectomy invasive ductal carcinoma right breast Anesthesia: MAC Surgeon: Jonna Stapleton Estimated Blood Loss (ml): 10 IV fluids (ml): 500 Pathology: other (Breast tissue) Condition: stable Disposition: same day Indications for Procedure: Invasive ductal carcinoma right breast Operative Findings: Palpable carcinoma right breast Description of Procedure: The patient was brought to the operating room and following sedation the right breast was prepped and draped in a sterile fashion. 0.5% lidocaine was used to anesthetize the area of concern. Wide excision was performed of the palpable carcinoma. Anteriorly skin was taken. Posteriorly dissection was performed onto the pectoralis major muscle. The specimen was removed. The specimen was 6 x 3 cm in size. This was 18 cm. The specimen was painted for orientation. Titanium clips were placed to rah the cavity. Superiorioly tissue mobilization of 6 x 2 cm for 12 cm was performed. Inferiorly 6 x 2 cm tissue mobilized for a total of 12 cm. A total of 42 cm of tissue was mobilized. The deep tissues were brought together using 3-0 Vicryl suture. Surgicel in powder form was placed. Several layers were used to close the defect. Subcutaneously 3-0 Vicryl suture was run. A subcuticular 4-0 Monocryl suture was run. The patient tolerated the procedure in stable condition. The specimen was painted for orientation and sent to pathology. A total of 30 mL of 0.5% lidocaine was utilized.
--- NOTE | 2021-09-17 10:08 | P.DS ---
Providers Attending physician: Jonna Stapleton Primary care physician: Sydnie Reynolds Plan - Discharge Summary Discharge Rx Participant: No New Discharge Prescriptions: No Action Atorvastatin [Lipitor] 80 mg PO HS Metoprolol Tartrate [Lopressor] 50 mg PO BID #60 tab HYDROcodone/APAP 7.5-325MG [[place] 7.5-325] 1 tab PO TID PRN PRN Reason: Pain ALPRAZolam [Xanax] 0.25 mg PO BID PRN PRN Reason: Anxiety traMADol HCl [Ultram] 50 mg PO BID PRN PRN Reason: Pain Escitalopram [Lexapro] 5 mg PO DAILY Apixaban [Eliquis] 5 mg PO BID #0 Furosemide [Lasix] 20 mg PO BID PRN PRN Reason: Edema Gabapentin [Neurontin] 100 mg PO TID PRN PRN Reason: Pain Aspirin [Adult Low Dose Aspirin EC] 81 mg PO DAILY Potassium Chloride 10 meq PO DAILY #30 tab Baclofen 5 mg PO BID #0 Albuterol Sulfate [Ventolin HFA] 1 puff INHALATION Q4H PRN PRN Reason: Dyspnea Discharge Medication List Atorvastatin [Lipitor] 80 mg PO HS 08/02/20 [History] Metoprolol Tartrate [Lopressor] 50 mg PO BID #60 tab 12/05/20 [Rx] ALPRAZolam [Xanax] 0.25 mg PO BID PRN 07/18/21 [History] Gabapentin [Neurontin] 100 mg PO TID PRN 07/18/21 [History] HYDROcodone/APAP 7.5-325MG [[place] 7.5-325] 1 tab PO TID PRN 07/18/21 [History] Escitalopram [Lexapro] 5 mg PO DAILY 08/18/21 [History] traMADol HCl [Ultram] 50 mg PO BID PRN 08/18/21 [History] Aspirin [Adult Low Dose Aspirin EC] 81 mg PO DAILY 08/20/21 [History] Apixaban [Eliquis] 5 mg PO BID #0 08/22/21 [Rx] Baclofen 5 mg PO BID #0 08/22/21 [Rx] Potassium Chloride 10 meq PO DAILY #30 tab 08/22/21 [Rx] Albuterol Sulfate [Ventolin HFA] 1 puff INHALATION Q4H PRN 09/13/21 [History] Furosemide [Lasix] 20 mg PO BID PRN 09/13/21 [History] Follow up Appointment(s)/Referral(s): Jonna Stapleton MD [STAFF PHYSICIAN] - 1 Week Activity/Diet/Wound Care/Special Instructions: May shower after 48 hours Wear Bra all times Restart Eliquis tomorrow Discharge Disposition: HOME SELF-CARE
[2021-09-17 10:15] VITALS: TEMP 97.6
[2021-09-17] MEDS ORDERED: METOPROLOL TARTRATE 5 MG/5 ML VIAL IVP ONE (10:55)
[2021-09-17 11:47] VITALS: BP 150/70; PULSE 67; RESP 18
== END 2021-09-17 12:25 | disposition home or self-care (01) ==
LOC: OR 07:33
PROVIDERS: ATTEND Surgery
DX: C50.911 Malignant neoplasm of unspecified site of right female breast (principal); Z87.891 Personal history of nicotine dependence; J44.9 Chronic obstructive pulmonary disease, unspecified; I25.10 Atherosclerotic heart disease of native coronary artery without angina pectoris; I11.0 Hypertensive heart disease with heart failure; I50.9 Heart failure, unspecified; I48.91 Unspecified atrial fibrillation; I34.1 Nonrheumatic mitral (valve) prolapse; I73.9 Peripheral vascular disease, unspecified; G47.33 Obstructive sleep apnea (adult) (pediatric); M19.90 Unspecified osteoarthritis, unspecified site; Z82.3 Family history of stroke; Z95.1 Presence of aortocoronary bypass graft; Z95.5 Presence of coronary angioplasty implant and graft; Z90.49 Acquired absence of other specified parts of digestive tract; Z98.890 Other specified postprocedural states; G35 Multiple sclerosis; Z80.3 Family history of malignant neoplasm of breast; Z80.41 Family history of malignant neoplasm of ovary; Z79.899 Other long term (current) drug therapy; Z79.01 Long term (current) use of anticoagulants; Z88.8 Allergy status to other drugs, medicaments and biological substances; Z80.49 Family history of malignant neoplasm of other genital organs
CPT/HCPCS: 19301; 88307; J2250; J1100; J2405; J0690; J2001; J3010; J2704; J1644

== ENCOUNTER → 2021-09-26 | Outpatient (CLI) | payer MEDICARE ==
[2021-09-26 11:32] VITALS: BP 142/63; PULSE 60; RESP 20; TEMP 98.3
--- NOTE | 2021-09-26 11:51 | P.PN ---
Progress Note - Text Progress Note Date: 09/26/21 Sharmila is a 75 -year-old white female status post right breast lumpectomy on . Pathology revealed invasive lobular carcinoma involving the medial and inferior margins. The tumor size was 2.4 cm by gross calculation. The patient post procedure has done well although she does have some mild erythema at the lumpectomy site. After discussion with the patient and her [id number] the patient would like to have a mastectomy performed with a sentinel node biopsy. Physical examination: Lungs: Clear Heart: Regular rate and rhythm Incision: Mild erythema superior aspect of incision Plan: Patient to be started on Keflex Follow-up in 2 weeks Scheduled for mastectomy with sentinel node biopsy CC: Dr. Reynolds
== END ==
LOC: WWCWWP 11:08
PROVIDERS: ATTEND Surgery
DX: Z08 Encounter for follow-up examination after completed treatment for malignant neoplasm (principal); Z85.3 Personal history of malignant neoplasm of breast; Z98.890 Other specified postprocedural states; Z88.6 Allergy status to analgesic agent

== ENCOUNTER 2021-11-26 13:03 | Day surgery (SDC) | payer MEDICARE ==
[2021-11-25 12:04] VITALS: BMI 25.0
[~2021-11-26 13:03] MED LIST changes: -LACTATED RINGERS 1,000 ML IV SCH; -ONDANSETRON 4 MG/2 ML VIAL IVP ONE; +ONDANSETRON 4 MG/2 ML VIAL IVP PRN
[2021-11-26] MEDS: LACTATED RINGERS 1,000 ML IV SCH (13:36)
[2021-11-26] MEDS ORDERED: SUCCINYLCHOLINE CHLORIDE 100 MG/5 ML SYR IV ONE (14:10)
[2021-11-26] MEDS ORDERED: LIDOCAINE 2% INJ 20 MG/ML (2 ML VIAL) ONE (14:10)
[2021-11-26] MEDS ORDERED: ePHEDrine 50 MG/ML 1 ML VIAL ONE (14:10)
[2021-11-26] MEDS ORDERED: PROPOFOL 10 MG/ML 20 ML VIAL IV ONE (14:10)
[2021-11-26] MEDS ORDERED: fentaNYL (PF) 50 MCG/ML 2 ML AMP ONE (14:10)
--- NOTE | 2021-11-26 14:15 | NM ---
EXAMINATION TYPE: NM sentinel node injection DATE OF EXAM: 11/26/2021 COMPARISON: NONE HISTORY: Right-sided breast cancer TECHNIQUE AND FINDINGS: The procedure of sentinel lymph node injection was explained to the patient. The benefits, alternatives, and risks were discussed. An informed consent was then obtained. Overlying skin is cleaned with sterile alcohol. Following this, 557 uCi Tc99m Tilmanocept was inject ed in the upper outer aspect of the right nipple intradermally. The patient tolerated the procedure well without any immediate complication. The patient was kept in the radiology department for short stay after the procedure and then taken to surgery for surgical p rocedure what is presumed intraoperative gamma probe will be used for sentinel lymph node detection. IMPRESSION: Right breast radiotracer injection for sentinel node localization as above.
[2021-11-26] MEDS ORDERED: NALOXONE 0.4 MG/ML 1 ML VIAL IV PRN (15:50)
[2021-11-26] MEDS ORDERED: ONDANSETRON 4 MG/2 ML VIAL IVP PRN (15:50)
[2021-11-26] MEDS ORDERED: BENZOCAINE/MENTHOL LOZENG 1 EACH LOZENGE MUCOUS MEM PRN (15:50)
[2021-11-26] MEDS ORDERED: HYDROmorphone 1 MG/ML 1 ML SYRINGE IVP PRN (15:50)
--- NOTE | 2021-11-26 15:50 | P.OP ---
Date of Procedure: 11/26/21 Preoperative Diagnosis: Right breast invasive lobular carcinoma/lumpectomy with positive margins Postoperative Diagnosis: Same Procedure(s) Performed: Right mastectomy with sentinel node biopsy Anesthesia: SHANNON Surgeon: Jonna Stapleton Estimated Blood Loss (ml): 20 IV fluids (ml): 600 Pathology: other (Right breast and sentinel node) Condition: stable Disposition: floor Indications for Procedure: Invasive lobular carcinoma with positive margins on lumpectomy Operative Findings: Fibrofatty breast tissue Description of Procedure: The patient is a 76-year-old white female who underwent a lumpectomy for invasive lobular carcinoma. The margins were positive on lumpectomy specimen and she opted for a mastectomy. The patient wished to have a sentinel node biopsy. Secondary to the fact that she was undergoing a mastectomy and we would be near the area of the axilla. In the preoperative area the patient was injected in the periareolar area with radioactive tracer. The patient was brought to the operating room and following induction of anesthesia the right breast and axilla were prepped and draped in a sterile fashion. The breast was marked for superior and inferior flaps. The superior flap was developed using the electrocautery device as well as the Harmonic scalpel. This was carried down to the chest wall. The inferior flap was developed in a similar fashion. The breast breast was brought from medial to lateral off the chest wall using the electrocautery device as well as the Harmonic scalpel. The area of the axilla was interrogated. A small amount of radioactivity was identified and dissection in this area revealed a small lymph node. 10 second count was only 17 however the background count was minimal was removed no other palpable adenopathy was demonstrated. Small amount of axillary tissue was removed with the breast specimen and sent as axillary tissue. This area was not radioactive. After assured that hemostasis was attained 2 HOLLIE drains were placed. One in the axilla and one in the inferior aspect of the skin flap. The flap's were closed using interrupted 3-0 Vicryl suture followed by 3-0 running subcuticular suture. The skin was repaired approximated using oksana. The drains were secured using nylon suture. The patient tolerated the procedure in stable condition. All instrument and sponge counts were correct at the end of the case.
[2021-11-26] MEDS ORDERED: SODIUM CHLORIDE 0.45% 1,000 ML IV SCH (16:00)
[2021-11-26] MEDS ORDERED: hydrALAZINE HCL 20 MG/ML 1 ML VIAL IVP ONE (16:26)
[2021-11-26] MEDS ORDERED: ALBUTEROL HFA INHALER INHALATION PRN (17:57)
[2021-11-26] MEDS ORDERED: ALPRAZolam 0.25 MG TAB PO PRN (17:57)
[2021-11-26] MEDS ORDERED: IPRATROPIUM 0.5 MG/2.5 ML NEBU INHALATION PRN (17:57)
[2021-11-26] MEDS ORDERED: GABAPENTIN 100 MG CAP PO PRN (17:57)
[2021-11-26] MEDS ORDERED: SYMBICORT 80-4.5 MCG INHALER INHALATION PRN (18:01)
[2021-11-26] MEDS: BACLOFEN 10 MG TAB PO SCH (20:24)
[2021-11-26] MEDS: METOPROLOL TARTRATE 50 MG TAB PO SCH (20:25)
[2021-11-26] MEDS: HYDROcodone/APAP 5-325MG 1 EACH TAB PO PRN (20:29)
[2021-11-26] MEDS ORDERED: ATORVASTATIN 80 MG TAB PO SCH (21:00)
[2021-11-26] MEDS ORDERED: ESCITALOPRAM 5 MG TAB PO SCH (21:00)
[2021-11-26] MEDS: HEPARIN SODIUM,PORCINE/PF 5,000 UNIT/0.5 ML SYRINGE SQ SCH (23:57)
[2021-11-27] MEDS: LACTATED RINGERS 1,000 ML IV SCH (07:42)
[2021-11-27] MEDS: HEPARIN SODIUM,PORCINE/PF 5,000 UNIT/0.5 ML SYRINGE SQ SCH (07:55)
[2021-11-27] MEDS: HYDROcodone/APAP 5-325MG 1 EACH TAB PO PRN ×2 (07:56→12:00)
[2021-11-27] MEDS: METOPROLOL TARTRATE 50 MG TAB PO SCH (07:56)
[2021-11-27] MEDS: BACLOFEN 10 MG TAB PO SCH (07:56)
[2021-11-27 08:59] VITALS: BP 146/66; PULSE 73; RESP 17; TEMP 98.3
[2021-11-27] MEDS ORDERED: ASPIRIN 81 MG PO SCH (09:00)
[2021-11-27 10:04] LABS: Basophils # (A) 0.02 X 10*3/uL (0.00-0.10); Basophils % (A) 0.2 %; Eosinophils # (A) 0 X 10*3/uL (0.04-0.35); Eosinophils % (A) 0 %; HCT 30.6 % (37.2-46.3); HGB 8.5 g/dL (12.0-15.0); Immature Grans, Automated 0.3 %; Lymphocytes % (A) 15.1 %; MCH 26.2 pg (27.0-32.0); MCHC 27.8 g/dL (32.0-37.0); MCV 94.4 fL (80.0-97.0); Mean Platelet Volume 11.4 fL (9.5-12.2); Monocytes # (A) 0.54 X 10*3/uL (0.20-1.00); Monocytes % (A) 6.3 %; NRBC Per 100 WBC 0 /100 WBCS (0.0-0.0); Neutrophils % (A) 78.1 %; Platelet Count 217 X 10*3/uL (140-440); RBC 3.24 X 10*6/uL (4.10-5.20); WBC 8.59 X 10*3/uL (4.50-10.00)
--- NOTE | 2021-11-27 10:09 | P.PN ---
Subjective Progress Note Date: 11/27/21 Principal diagnosis: POD#1 right mastectomy with sentinel node biopsy Sharmila is a 76-year-old white female status post right mastectomy and sentinel node biopsy on [id number]. Post procedure she is doing well with no complaints. Her HOLLIE drainage is serous in nature and total output is 80 mL. Her hemoglobin is stable at 11. She is tolerating eating, with minimal pain. Objective - Vital Signs Vital signs: Vital Signs Temp 98.3 F 11/27/21 08:00 Pulse 73 11/27/21 08:00 Resp 17 11/27/21 08:00 BP 146/66 11/27/21 08:00 Pulse Ox 98 11/27/21 08:00 Intake & Output 11/26/21 11/27/21 11/27/21 18:59 06:59 18:59 Intake Total 850 Output Total 20 80 Balance 830 -80 Weight 56.7 kg Intake: IV 850 Oral 0 Output: Drainage 80 Chest 0 Right Chest 80 Estimated Blood Loss 20 Other: Voiding Method Toilet Toilet # Voids 0 2 - Constitutional General appearance: Present: cooperative - EENT Eyes: Present: EOMI - Neck Neck: Present: normal ROM - Respiratory Details: wheezing right lung base, left lung decreased breath sounds but clear - Cardiovascular Heart sounds: normal: S1, S2 - Integumentary Integumentary Comment(s): Decreased swelling bilateral lower extremities Incision right chest wall clean and dry no evidence of infection, no evidence of hematoma - Musculoskeletal Musculoskeletal Comment(s): Sitting in a chair - Psychiatric Psychiatric: Present: A&O x's 3, appropriate affect, intact judgment & insight - Labs CBC & Chem 7: 11/27/21 03:41 Labs: Abnormal Lab Results - Last 24 Hours (Table) 11/27/21 Range/Units 03:41 RBC 3.24 L (4.10-5.20) X 10*6/uL Hgb 8.5 L (12.0-15.0) g/dL Hct 30.6 L (37.2-46.3) % MCH 26.2 L (27.0-32.0) pg MCHC 27.8 L (32.0-37.0) g/dL RDW 20.0 H (11.5-14.5) % Eosinophils # 0 L (0.04-0.35) X 10*3/uL Assessment and Plan Assessment: Impression: Patient is postop day #1 right mastectomy and sentinel node biopsy From a postoperative perspective she is doing well She has medical comorbidities prior to the procedure and has some wheezing at the right lung base, her O2 sats are 98% Plan: Discharge if okay with medicine Follow-up Dr. Padron 1 week Teaching patient drain care Where binder at all times May restart eliquis today CC: Dr. Reynolds
--- NOTE | 2021-11-27 10:12 | P.DS ---
Providers Attending physician: Jonna Stapleton Consults: 11/26/21 15:54 Consult Physician Routine Consulting Provider: Quintin Elizondo Consult Reason/Comments: medical managment Do you want consulting provider notified?: Yes Primary care physician: Sydnie Reynolds [facility] Course: The patient was admitted on 5321. She underwent a right mastectomy with sentinel node biopsy. Postoperatively she has done well. Her hemoglobin is stable. She has no evidence of infection or hematoma at the mastectomy site. Her HOLLIE drains are holding suction without difficulty. She does have some mild wheezing at the right lung base in medicine is following her. Plan - Discharge Summary Discharge Rx Participant: No New Discharge Prescriptions: No Action Atorvastatin [Lipitor] 80 mg PO HS Metoprolol Tartrate [Lopressor] 50 mg PO BID #60 tab ALPRAZolam [Xanax] 0.25 mg PO BID PRN PRN Reason: Anxiety Escitalopram [Lexapro] 5 mg PO HS Apixaban [Eliquis] 5 mg PO BID #0 Furosemide [Lasix] 20 mg PO BID PRN PRN Reason: Edema Fluticasone/Umeclidin/Vilanter [Trelegy Ellipta 100-62.5-25] 1 puff INHALATION DAILY PRN PRN Reason: Wheezing Gabapentin [Neurontin] 100 mg PO TID PRN PRN Reason: Pain Aspirin [Adult Low Dose Aspirin EC] 81 mg PO DAILY Baclofen 5 mg PO BID #0 Albuterol Sulfate [Ventolin HFA] 1 puff INHALATION Q4H PRN PRN Reason: Dyspnea Discharge Medication List Atorvastatin [Lipitor] 80 mg PO HS 08/02/20 [History] Metoprolol Tartrate [Lopressor] 50 mg PO BID #60 tab 12/05/20 [Rx] ALPRAZolam [Xanax] 0.25 mg PO BID PRN 07/18/21 [History] Gabapentin [Neurontin] 100 mg PO TID PRN 07/18/21 [History] Escitalopram [Lexapro] 5 mg PO HS 08/18/21 [History] Aspirin [Adult Low Dose Aspirin EC] 81 mg PO DAILY 08/20/21 [History] Apixaban [Eliquis] 5 mg PO BID #0 08/22/21 [Rx] Baclofen 5 mg PO BID #0 08/22/21 [Rx] Albuterol Sulfate [Ventolin HFA] 1 puff INHALATION Q4H PRN 09/13/21 [History] Furosemide [Lasix] 20 mg PO BID PRN 09/13/21 [History] Fluticasone/Umeclidin/Vilanter [Trelegy Ellipta 100-62.5-25] 1 puff INHALATION DAILY PRN 11/01/21 [History] Follow up Appointment(s)/Referral(s): Jonna Stapleton MD [STAFF PHYSICIAN] - 1 Week Activity/Diet/Wound Care/Special Instructions: May shower after 48 hours Restart eliquis today Wear binder at all times teach how to empty and record HOLLIE drainage that should be done twice a day and as needed Discharge Disposition: HOME SELF-CARE
--- NOTE | 2021-11-27 10:32 | P.CONS ---
History of Present Illness - History of Present Illness This is a pleasant 76 years old female with past medical history of right breast mass, atrial fibrillation on liquids, COPD that follow-up with Dr. carrington on chronic oxygen at home 2.5-4 lpm urine. Panic attack, depression, coronary artery disease that follow up with Dr. Adame. Osteoarthritis. Patient's was admitted for right mastectomy related to her invasive lobular carcinoma with sentinel node biopsy. Patient was sitting in chair, eating cookies and drinks. She was doing well with no nausea vomiting, no abdominal pain. Have bowel movements but she is passing gas. To the bathroom twice this morning with no difficulties. His chest pain or dyspnea. No headache or weakness or numbness. No urinary complaints. No fever. Patient herself feels fine and she wants to go home. Actually she's been already discharge and pending medical clearance. Her oxygen and breathing is at baseline and she has oxygen at home as she told me. Also she has a liquids at home. As been already started on facility this morning. Patient was instructed to resume her Eliquis as soon as possible as per surgery team. Patient is hemodynamically stable and afebrile. She is saturating 98% on 4 L oxygen at Labs showed only CBC with WBC 8.5, hemoglobin 8.5 and platelet count 217. Review of Systems CONSTITUTIONAL: No fever, no malaise, no fatigue. HEENT: No recent visual problems or hearing problems. Denied any sore throat. CARDIOVASCULAR: No orthopnea, PND, no palpitations, no syncope. PULMONARY: No shortness of breath, no cough, no hemoptysis. GASTROINTESTINAL: No diarrhea, no nausea, no vomiting, no abdominal pain. Normoactive bowel sounds. NEUROLOGICAL: No headaches, no weakness, no numbness. HEMATOLOGICAL: Denies any bleeding or petechiae. GENITOURINARY: Denies any burning micturition, frequency, or urgency. MUSCULOSKELETAL/RHEUMATOLOGICAL: Denies any joint pain, swelling, or any muscle pain. ENDOCRINE: Denies any polyuria or polydipsia. Past Medical History Past Medical History: Atrial Fibrillation, Coronary Artery Disease (CAD), Cancer, Heart Failure, COPD, CVA/TIA, Hyperlipidemia, Hypertension, Mitral Valve Prolapse (MVP), Neurologic Disorder, Osteoarthritis (OA), Pneumonia, Skin Disorder, Sleep Apnea/CPAP/BIPAP, Vascular Disorder Additional Past Medical History / Comment(s): "Upper back cancerous mass removed 08/17/21 at [facility].". Multiple Sclerosis. PAD/chronic wounds left foot/lower leg, peripheral neuropathy. CVA Jul/Aug 2021. History of Any Multi-Drug Resistant Organisms: None Reported Past Surgical History: Appendectomy, Breast Surgery, Coronary Bypass/CABG, Heart Catheterization With Stent, Orthopedic Surgery, Tonsillectomy Additional Past Surgical History / Comment(s): 08/17/21 surgery at [facility]-cervical or upper back for mass, 11/2020 CABG 4 vessel, PCI/stents in , bilateral iliac arthrectomy/stents, left foot wound debridements, bronchoscopy/lavage, bilateral breast biopsies, D&C, lumpectomy right breast 08/2021. Right mastectomy (11/26/21) Past Anesthesia/Blood Transfusion Reactions: Motion Sickness Additional Past Anesthesia/Blood Transfusion Reaction / Comm: No hx blood transfusion. Date of Last Stent Placement:: 2008 Past Psychological History: Anxiety, Depression Additional Psychological History / Comment(s): Pt's due to Covid beginning of August 2021. Smoking Status: Former smoker Past Alcohol Use History: Rare Additional Past Alcohol Use History / Comment(s): Pt started smoking in 1960 and quit May 2020. Past Drug Use History: None Reported Additional Drug Use History / Comment(s): CBD lotion. - Past Family History Father Family Medical History: No Reported History Mother Family Medical History: Cancer Additional Family Medical History / Comment(s): Breast and brain cancer. Medications and Allergies Home Medications Medication Instructions Recorded Confirmed Type Atorvastatin [Lipitor] 80 mg PO HS 08/02/20 11/25/21 History Metoprolol Tartrate [Lopressor] 50 mg PO BID #60 tab 12/05/20 11/25/21 Rx ALPRAZolam [Xanax] 0.25 mg PO BID PRN 07/18/21 11/26/21 History Gabapentin [Neurontin] 100 mg PO TID PRN 07/18/21 11/25/21 History Escitalopram [Lexapro] 5 mg PO HS 08/18/21 11/25/21 History Aspirin [Adult Low Dose Aspirin EC] 81 mg PO DAILY 08/20/21 11/25/21 History Apixaban [Eliquis] 5 mg PO BID #0 08/22/21 11/26/21 Rx Baclofen 5 mg PO BID #0 08/22/21 11/25/21 Rx Albuterol Sulfate [Ventolin HFA] 1 puff INHALATION Q4H PRN 09/13/21 11/26/21 History Furosemide [Lasix] 20 mg PO BID PRN 09/13/21 11/25/21 History Fluticasone/Umeclidin/Vilanter 1 puff INHALATION DAILY PRN 11/01/21 11/25/21 History [Trelegy Ellipta 100-62.5-25] Allergies Allergy/AdvReac Type Severity Reaction Status Date / Time sumatriptan [From Imitrex] Allergy Chest Pain Verified 11/26/21 13:21 Physical Exam Vitals: Vital Signs Temp Pulse Pulse Resp BP BP Pulse Ox 11/27/21 08:00 98.3 F 73 17 146/66 98 11/27/21 01:57 98.0 F 65 15 129/61 100 11/26/21 19:40 20 11/26/21 19:27 78 167/52 100 11/26/21 19:12 82 152/77 99 11/26/21 18:57 84 162/69 99 11/26/21 18:42 81 152/72 99 11/26/21 18:27 81 162/70 95 11/26/21 18:13 83 148/71 93 L 11/26/21 17:58 82 152/72 94 L 11/26/21 17:42 84 146/64 90 L 11/26/21 17:30 98.6 F 89 22 149/69 93 L 11/26/21 17:05 84 16 147/63 96 11/26/21 16:50 89 16 148/82 94 L 11/26/21 16:35 82 17 157/88 98 11/26/21 16:20 89 16 204/91 98 11/26/21 16:05 96.8 F L 79 16 169/74 99 11/26/21 13:25 97.7 F 84 16 133/76 96 Intake and Output 11/26/21 11/27/21 11/27/21 22:59 06:59 14:59 Intake Total 100 Output Total 20 80 Balance 80 -80 Intake: IV 100 Oral 0 Output: Drainage 80 Chest 0 Right Chest 80 Estimated Blood Loss 20 Other: Voiding Method Toilet Toilet # Voids 0 2 Weight 56.7 kg GENERAL: The patient is alert and oriented x3, not in any acute distress. Well developed, well nourished. -HEENT: Pupils are round and equally reacting to light. EOMI. No scleral icterus. No conjunctival pallor. Normocephalic, atraumatic. No pharyngeal erythema. No thyromegaly. Right breast surgical wound with a dressing in place. Of exam is deferred to surgery primary team CARDIOVASCULAR: S1 and S2 present. No murmurs, rubs, or gallops. PULMONARY: Chest is clear to auscultation, no wheezing or crackles. ABDOMEN: Soft, nontender, nondistended, normoactive bowel sounds. No palpable organomegaly. MUSCULOSKELETAL: No joint swelling or deformity. EXTREMITIES: No cyanosis, clubbing, or pedal edema. NEUROLOGICAL: Gross neurological examination did not reveal any focal deficits. SKIN: No rashes. No petechiae Results CBC & Chem 7: 11/27/21 03:41 Labs: Abnormal Lab Results - Last 24 Hours (Table) 11/27/21 Range/Units 03:41 RBC 3.24 L (4.10-5.20) X 10*6/uL Hgb 8.5 L (12.0-15.0) g/dL Hct 30.6 L (37.2-46.3) % MCH 26.2 L (27.0-32.0) pg MCHC 27.8 L (32.0-37.0) g/dL RDW 20.0 H (11.5-14.5) % Eosinophils # 0 L (0.04-0.35) X 10*3/uL Assessment and Plan Assessment: Right breast cancer, status post right mastectomy related to her invasive lobular carcinoma with sentinel node biopsy. Chronic atrial fibrillation on Eliquis COPD, no acute exacerbation Circumflex respiratory failure Congestive heart failure, no acute exacerbation Panic attack, not an active issue Hypertension Hyperlipidemia History of mitral valve prolapse History of osteoarthritis History of sleep apnea Plan: This is a pleasant 76 years old female who presents with right mastectomy She is doing well postoperatively. She denies any symptoms and she can resume her aspirin. Resume Eliquis for surgery team clearance. Discussed with the bedside nurse. Labs and medication were reviewed.. Continue same treatment. Continue with symptomatic treatment. Resume home medication. Monitor lytes and vitals. DVT and GI prophylaxis. Further recommendations depends on the clinical course of the patient Patient is medically stable and can be discharged home once cleared by surgical team. We recommend patient follow up with her PCP Dr. Reynolds in one week and her oncologist Dr. Baca in 7-10 days, patient informed with this recommendation and she agrees. States that her on July and she does not have a right atrial to depend on family member so she was to make her own appointment. Thank you for consulting us
== END 2021-11-27 14:12 | disposition home or self-care (01) ==
LOC: OR 13:03 → 4SSUR 15:53 → OR 11-27 14:12
PROVIDERS: ATTEND Surgery
DX: C50.911 Malignant neoplasm of unspecified site of right female breast (principal); Z86.73 Personal history of transient ischemic attack (TIA), and cerebral infarction without residual deficits; Z87.891 Personal history of nicotine dependence; Z95.1 Presence of aortocoronary bypass graft; Z95.820 Peripheral vascular angioplasty status with implants and grafts; Z90.49 Acquired absence of other specified parts of digestive tract; Z98.890 Other specified postprocedural states; I25.10 Atherosclerotic heart disease of native coronary artery without angina pectoris; I11.0 Hypertensive heart disease with heart failure; I50.9 Heart failure, unspecified; I48.20 Chronic atrial fibrillation, unspecified; J44.9 Chronic obstructive pulmonary disease, unspecified; E78.5 Hyperlipidemia, unspecified; F41.0 Panic disorder [episodic paroxysmal anxiety]; F32.A Depression, unspecified; M19.90 Unspecified osteoarthritis, unspecified site; G35 Multiple sclerosis; G47.30 Sleep apnea, unspecified; J96.90 Respiratory failure, unspecified, unspecified whether with hypoxia or hypercapnia; Z99.81 Dependence on supplemental oxygen; Z80.3 Family history of malignant neoplasm of breast; Z80.8 Family history of malignant neoplasm of other organs or systems; Z80.41 Family history of malignant neoplasm of ovary; Z80.49 Family history of malignant neoplasm of other genital organs; I34.1 Nonrheumatic mitral (valve) prolapse; Z87.01 Personal history of pneumonia (recurrent); Z95.5 Presence of coronary angioplasty implant and graft; Z90.11 Acquired absence of right breast and nipple; F41.9 Anxiety disorder, unspecified; Z79.01 Long term (current) use of anticoagulants; Z79.82 Long term (current) use of aspirin; Z79.899 Other long term (current) drug therapy; Z88.8 Allergy status to other drugs, medicaments and biological substances
CPT/HCPCS: 97162; 97166; 85025; 38792; 19301; 38500; A9520; J0360; J1100; J2405; J0690; J3010; J0330; J2704; J1644 ×2; J2001

== ENCOUNTER → 2021-12-05 | Outpatient (CLI) | payer MEDICARE ==
[2021-12-05 13:33] VITALS: BP 134/71; PULSE 65; RESP 18; TEMP 98.2
--- NOTE | 2021-12-05 13:59 | P.PN ---
Progress Note - Text Progress Note Date: 12/05/21 Sharmila is a 76-year-old white female status post right mastectomy and 5522. This was for positive margins on a lumpectomy for invasive lobular carcinoma. The mastectomy specimen on verbal report did not show any residual disease. The sentinel lymph node was negative. The patient's doing well at this time. Physical exam: Incision clean and dry Bilateral JPs serous in nature HOLLIE #1 50 mL for the last 2 days HOLLIE #250 mm 30 mL Heart: Regular rate and rhythm Lungs: Bilateral wheezing at the bases Bilateral ankle swelling Impression/Plan: Patient doing well from a surgical standpoint We will remove every other staple and leave HOLLIE drains in place tone next week Follow up next week for removal of the remainder oksana and HOLLIE drains Follow up Primary care doctor regarding ankle swelling and lung wheezing CC: Dr. Reynolds
== END ==
LOC: WWCWWP 13:02
PROVIDERS: ATTEND Surgery
DX: Z48.817 Encounter for surgical aftercare following surgery on the skin and subcutaneous tissue (principal); Z90.11 Acquired absence of right breast and nipple; Z88.6 Allergy status to analgesic agent

== ENCOUNTER → 2021-12-19 | Outpatient (CLI) | payer MEDICARE ==
--- NOTE | 2021-12-19 18:01 | P.PN ---
Progress Note - Text Progress Note Date: 12/19/21 Sharmila is a 76-year-old white female status post right mastectomy and 5522. This was for positive margins on a lumpectomy for invasive lobular carcinoma. The mastectomy specimen did not show any residual disease. The sentinel lymph node was negative. The patient's doing well at this time. Physical exam: Incision clean and dry HOLLIE output at this time is minimal and can be removed Impression/Plan: Patient doing well from a surgical standpoint HOLLIE drain removed Patient will follow up in 4 months Patient is following up with medical oncology and we'll most likely start an aromatase inhibitor CC: Dr. Reynolds
== END ==
LOC: WWCWWP 17:51
PROVIDERS: ATTEND Surgery
DX: Z48.03 Encounter for change or removal of drains (principal)

== ENCOUNTER → 2021-12-20 | Outpatient (CLI) | payer MEDICARE ==
--- NOTE | 2021-12-24 07:46 | BD ---
EXAMINATION TYPE: DEXA Bone Density DATE OF EXAM: 12/20/2021 COMPARISON: NONE CLINICAL HISTORY: 76 years year old Female. ICD-10 CODE: BREAST CANCER C50.411 Nuclear Medicine Study in the last 2 weeks: Barium Study in the last week: : Height: Weight: FRAX RISK QUESTIONS: Alcohol (3 or more units per day): NO Family History (Parent hip fracture): NO Glucocorticoids (More than 3mos): NO History of Fracture in Adulthood: NO Secondary Osteoporosis: 1. Type 1 Diabetes: NO 2. Hyperthyroidism: NO 3. Menopause before 45: YES 4. Malnutrition: NO 5. Chronic liver disease: NO Rheumatoid Arthritis: NO Current Tobacco Use: YES RISK FACTORS HISTORY OF: Hip Fracture (Right/Left): NO Spine Fracture: NO History of Wrist Fracture: NO Surgery to Spine/Hip(right/left)/Wrist (right/left): NO Family History of Osteoporosis: NO Active: NO Diet low in dairy products/other sources of calcium: YES Postmenopausal woman: YES Take estrogen and/or progesterone medications: YES How lon WEEKS, PRESCRIBED BY ONCOLOGIST Lost more than 2 inches in height since high school: YES Frequent falls: NO Poor Health: YES Hyperparathyroidism NO Adrenal Insufficiency: NO MEDICATIONS: Prednisone or other steroids: VENTOLIN INHALER How Lon YEARS Thyroid Medications: NO Osteoporosis Medications: NO Additional Medications: CHOLESTEROL MEDS, LASIX, TRIOLOGY Additional History: EXAM MEASUREMENTS: Bone mineral densitometry was performed using the CDP System. Bone mineral density as measured about the Lumbar spine is: ----- L1-L4(G/cm2): 1.413 T Score Values are as follows: ----- L1: -0.8 ----- L2: -0.3 ----- L3: 3.2 ----- L4: 4.7 ----- L1-L4: 1.9 BASELINE STUDY Bone mineral density about the R hip (g/cm2): 0.782 Bone mineral density about the L hip (g/cm2): 0.783 T Score values are as follows: -----R Neck: -1.8 -----L Neck -1.8 -----R Total: -1.4 -----L Total: -1.5 BASELINE STUDY FRAX%s: The graph provided illustrates a 13.2% chance for a major osteoporotic fx and a 4.6% chance f or the hips probability for fx in 10 years time. IMPRESSION: Osteopenia (T Score between -2.5 and -1). There is slightly increased risk of fracture and the patient may be considered for treatment. Re-Screen 2-5 years. NOTE: T-SCORE=SD OF THE YOUNG ADULT MEAN. Phasicity
== END | disposition home or self-care (01) ==
LOC: RADBDWWP 16:19
PROVIDERS: ATTEND Internal Medicine Hematology & Oncology
DX: C50.919 Malignant neoplasm of unspecified site of unspecified female breast (principal); M85.89 Other specified disorders of bone density and structure, multiple sites; Z78.0 Asymptomatic menopausal state
CPT/HCPCS: 77080

== ENCOUNTER 2022-01-04 19:35 | Inpatient (IN) | payer MEDICARE ==
--- NOTE | 2022-01-04 19:44 | ED ---
General Adult HPI - General Stated complaint: Chest Pain Time Seen by Provider: 01/04/22 19:44 - History of Present Illness Initial comments: Sharmial is a 46-year-old female history of A. fib, COPD, still smoking cigarettes. Patient is brought to the ER today by ambulance for evaluation of shortness of breath and chest pressure. Patient reports that she's been feeling like this throughout the day today. She was given a breathing treatment by EMS and some nitro and had some improvement in her discomfort. Patient states she feels like she can't catch her breath, she is breathing really hard her heartbeat really hard. - Related Data Home Medications Medication Instructions Recorded Confirmed Atorvastatin [Lipitor] 80 mg PO HS 08/02/20 12/05/21 ALPRAZolam [Xanax] 0.25 mg PO BID PRN 07/18/21 12/05/21 Gabapentin [Neurontin] 100 mg PO TID PRN 07/18/21 12/05/21 Escitalopram [Lexapro] 5 mg PO HS 08/18/21 12/05/21 Aspirin [Adult Low Dose Aspirin EC] 81 mg PO DAILY 08/20/21 12/05/21 Albuterol Sulfate [Ventolin HFA] 1 puff INHALATION Q4H PRN 09/13/21 12/05/21 Furosemide [Lasix] 20 mg PO BID PRN 09/13/21 12/05/21 Fluticasone/Umeclidin/Vilanter 1 puff INHALATION DAILY PRN 11/01/21 12/05/21 [Trelegy Ellipta 100-62.5-25] Previous Rx's Medication Instructions Recorded Metoprolol Tartrate [Lopressor] 50 mg PO BID #60 tab 12/05/20 Apixaban [Eliquis] 5 mg PO BID #0 08/22/21 Baclofen 5 mg PO BID #0 08/22/21 Allergies Allergy/AdvReac Type Severity Reaction Status Date / Time sumatriptan [From Imitrex] Allergy Chest Pain Verified 12/05/21 13:33 Review of Systems ROS Statement: Those systems with pertinent positive or pertinent negative responses have been documented in the HPI. ROS Other: All systems not noted in ROS Statement are negative. Past Medical History Past Medical History: Atrial Fibrillation, Coronary Artery Disease (CAD), Cancer, Heart Failure, COPD, CVA/TIA, Hyperlipidemia, Hypertension, Mitral Valve Prolapse (MVP), Neurologic Disorder, Osteoarthritis (OA), Pneumonia, Skin Disorder, Sleep Apnea/CPAP/BIPAP, Vascular Disorder Additional Past Medical History / Comment(s): "Upper back cancerous mass removed 08/17/21 at [facility].". Multiple Sclerosis. PAD/chronic wounds left foot/lower leg, peripheral neuropathy. CVA Jul/Aug 2021. History of Any Multi-Drug Resistant Organisms: None Reported Past Surgical History: Appendectomy, Breast Surgery, Coronary Bypass/CABG, Heart Catheterization With Stent, Orthopedic Surgery, Tonsillectomy Additional Past Surgical History / Comment(s): 08/17/21 surgery at [facility]-cervical or upper back for mass, 11/2020 CABG 4 vessel, PCI/stents in , bilateral iliac arthrectomy/stents, left foot wound debridements, bronchoscopy/lavage, bilateral breast biopsies, D&C, lumpectomy right breast 08/2021. Right mastectomy (11/26/21) Past Anesthesia/Blood Transfusion Reactions: Motion Sickness Additional Past Anesthesia/Blood Transfusion Reaction / Comment(s): No hx blood transfusion. Date of Last Stent Placement:: 2008 Past Psychological History: Anxiety, Depression Additional Psychological History / Comment(s): Pt's due to Covid beginning of August 2021. Smoking Status: Former smoker Past Alcohol Use History: Rare Additional Past Alcohol Use History / Comment(s): Pt started smoking in 1960 and quit May 2020. Past Drug Use History: None Reported Additional Drug Use History / Comment(s): CBD lotion. - Past Family History Father Family Medical History: No Reported History Mother Family Medical History: Cancer Additional Family Medical History / Comment(s): Breast and brain cancer. General Exam - General Exam Comments Initial Comments: Physical Exam GENERAL: Chronically ill-appearing elderly female HENT: Normocephalic, Atraumatic. EYES: PERRL, EOMI PULMONARY: Tachypnea with wheezing in all lung howard CARDIOVASCULAR: Tachycardia, irregularly irregular ABDOMEN: Soft and nontender with normal bowel sounds. SKIN: Surgical incision over her right breast f : Deferred NEUROLOGIC: Patient is alert and oriented x3. Moving all extremities spontaneously MUSCULOSKELETAL: Normal extremities with adequate strength and full range of motion. No lower extremity swelling or edema. No calf tenderness. PSYCHIATRIC: Normal psychiatric evaluation. Course Vital Signs 01/04/22 01/04/22 01/04/22 19:39 20:38 20:52 Temperature 98.0 F Pulse Rate 130 H 110 H 120 H Respiratory 22 Rate Blood Pressure 132/81 O2 Sat by Pulse 100 Oximetry 01/04/22 01/04/22 21:57 22:11 Temperature Pulse Rate 133 H 113 H Respiratory 22 Rate Blood Pressure 133/104 O2 Sat by Pulse 99 Oximetry EKG Findings - EKG Comments: EKG Findings:: EKG was obtained due to tachycardia and chest pain, EKG was obtained 1938 rate is 131 rhythm is narrow complex irregularly irregular tachycardia consistent with an atrial fibrillation with RVR no acute ST elevations no evidence of ischemia or infarction. PVCs are noted. Medical Decision Making - Medical Decision Making Patient was seen and evaluated, history is obtained from the patient and EMS Labs were ordered DuoNeb's were ordered, patient's heart rate was somewhat elevated but she didn't improve with DuoNeb's She was placed on Cardizem for rate management Labs resulted with multiple abnormalities, patient has chronic anemia which is at baseline, troponin is mildly elevated is likely related to persistent tachycardia, BNP is significantly elevated and chest x-ray reveals signs of h eart failure Patient be admitted to the hospital to trend troponins, manage heart rate and treat CHF exacerbation - Lab Data Result diagrams: 01/04/22 19:54 01/04/22 19:54 Lab Results 01/04/22 01/04/22 01/04/22 Range/Units 19:54 19:54 19:54 WBC 7.9 (3.8-10.6) k/uL RBC 3.60 L (3.80-5.40) m/uL Hgb 9.1 L (11.4-16.0) gm/dL Hct 31.5 L (34.0-46.0) % MCV 87.4 (80.0-100.0) fL MCH 25.3 (25.0-35.0) pg MCHC 28.9 L (31.0-37.0) g/dL RDW 17.8 H (11.5-15.5) % Plt Count 286 (150-450) k/uL MPV 8.9 Neutrophils % 72 % Lymphocytes % 22 % Monocytes % 5 % Eosinophils % 0 % Basophils % 0 % Neutrophils # 5.6 (1.3-7.7) k/uL Lymphocytes # 1.7 (1.0-4.8) k/uL Monocytes # 0.4 (0-1.0) k/uL Eosinophils # 0.0 (0-0.7) k/uL Basophils # 0.0 (0-0.2) k/uL Hypochromasia Marked Anisocytosis Slight PT 12.8 H (9.0-12.0) sec INR 1.2 H (<1.2) APTT 24.5 (22.0-30.0) sec Sodium 139 (137-145) mmol/L Potassium 3.3 L (3.5-5.1) mmol/L Chloride 104 (98-107) mmol/L Carbon Dioxide 29 (22-30) mmol/L Anion Gap 6 mmol/L BUN 19 H (7-17) mg/dL Creatinine 0.86 (0.52-1.04) mg/dL Est GFR (CKD-EPI)AfAm 78 (>60 ml/min/1.73 sqM) Est GFR (CKD-EPI)NonAf 67 (>60 ml/min/1.73 sqM) Glucose 126 H (74-99) mg/dL Plasma Lactic Acid Harrison (0.7-2.0) mmol/L Calcium 8.8 (8.4-10.2) mg/dL Magnesium 1.6 (1.6-2.3) mg/dL Total Bilirubin 0.5 (0.2-1.3) mg/dL AST 37 H (14-36) U/L ALT 25 (4-34) U/L Alkaline Phosphatase 109 (38-126) U/L Troponin I (0.000-0.034) ng/mL NT-Pro-B Natriuret Pep pg/mL Total Protein 6.2 L (6.3-8.2) g/dL Albumin 3.3 L (3.5-5.0) g/dL Coronavirus (PCR) (Not Detectd) Influenza Type A RNA (Not Detectd) Influenza Type B (PCR) (Not Detectd) 01/04/22 01/04/22 01/04/22 Range/Units 19:54 19:54 19:54 WBC (3.8-10.6) k/uL RBC (3.80-5.40) m/uL Hgb (11.4-16.0) gm/dL Hct (34.0-46.0) % MCV (80.0-100.0) fL MCH (25.0-35.0) pg MCHC (31.0-37.0) g/dL RDW (11.5-15.5) % Plt Count (150-450) k/uL MPV Neutrophils % % Lymphocytes % % Monocytes % % Eosinophils % % Basophils % % Neutrophils # (1.3-7.7) k/uL Lymphocytes # (1.0-4.8) k/uL Monocytes # (0-1.0) k/uL Eosinophils # (0-0.7) k/uL Basophils # (0-0.2) k/uL Hypochromasia Anisocytosis PT (9.0-12.0) sec INR (<1.2) APTT (22.0-30.0) sec Sodium (137-145) mmol/L Potassium (3.5-5.1) mmol/L Chloride (98-107) mmol/L Carbon Dioxide (22-30) mmol/L Anion Gap mmol/L BUN (7-17) mg/dL Creatinine (0.52-1.04) mg/dL Est GFR (CKD-EPI)AfAm (>60 ml/min/1.73 sqM) Est GFR (CKD-EPI)NonAf (>60 ml/min/1.73 sqM) Glucose (74-99) mg/dL Plasma Lactic Acid Harrison 1.7 (0.7-2.0) mmol/L Calcium (8.4-10.2) mg/dL Magnesium (1.6-2.3) mg/dL Total Bilirubin (0.2-1.3) mg/dL AST (14-36) U/L ALT (4-34) U/L Alkaline Phosphatase (38-126) U/L Troponin I 0.067 H* (0.000-0.034) ng/mL NT-Pro-B Natriuret Pep 89246 pg/mL Total Protein (6.3-8.2) g/dL Albumin (3.5-5.0) g/dL Coronavirus (PCR) (Not Detectd) Influenza Type A RNA (Not Detectd) Influenza Type B (PCR) (Not Detectd) 06/11/22 06/11/22 Range/Units 19:54 19:54 WBC (3.8-10.6) k/uL RBC (3.80-5.40) m/uL Hgb (11.4-16.0) gm/dL Hct (34.0-46.0) % MCV (80.0-100.0) fL MCH (25.0-35.0) pg MCHC (31.0-37.0) g/dL RDW (11.5-15.5) % Plt Count (150-450) k/uL MPV Neutrophils % % Lymphocytes % % Monocytes % % Eosinophils % % Basophils % % Neutrophils # (1.3-7.7) k/uL Lymphocytes # (1.0-4.8) k/uL Monocytes # (0-1.0) k/uL Eosinophils # (0-0.7) k/uL Basophils # (0-0.2) k/uL Hypochromasia Anisocytosis PT (9.0-12.0) sec INR (<1.2) APTT (22.0-30.0) sec Sodium (137-145) mmol/L Potassium (3.5-5.1) mmol/L Chloride (98-107) mmol/L Carbon Dioxide (22-30) mmol/L Anion Gap mmol/L BUN (7-17) mg/dL Creatinine (0.52-1.04) mg/dL Est GFR (CKD-EPI)AfAm (>60 ml/min/1.73 sqM) Est GFR (CKD-EPI)NonAf (>60 ml/min/1.73 sqM) Glucose (74-99) mg/dL Plasma Lactic Acid Harrison (0.7-2.0) mmol/L Calcium (8.4-10.2) mg/dL Magnesium (1.6-2.3) mg/dL Total Bilirubin (0.2-1.3) mg/dL AST (14-36) U/L ALT (4-34) U/L Alkaline Phosphatase (38-126) U/L Troponin I (0.000-0.034) ng/mL NT-Pro-B Natriuret Pep pg/mL Total Protein (6.3-8.2) g/dL Albumin (3.5-5.0) g/dL Coronavirus (PCR) Not Detected (Not Detectd) Influenza Type A RNA Not Detected (Not Detectd) Influenza Type B (PCR) Not Detected (Not Detectd) Disposition Clinical Impression: Acute non-ST elevation myocardial infarction (NSTEMI), Atrial fibrillation with RVR, COPD exacerbation Disposition: ADMITTED IP TO THIS HOSP Condition: Serious
[2022-01-04] MEDS ORDERED: IPRATROPIUM-ALBUTEROL 3 ML NEB INHALATION STA (19:51)
[2022-01-04] MEDS ORDERED: SODIUM CHLORIDE 0.9% 1,000 ML IV STA (19:51)
--- NOTE | 2022-01-04 20:31 | XR ---
EXAMINATION TYPE: XR chest 2V DATE OF EXAM: 01/04/2022 COMPARISON: 11/21/2021 HISTORY: Short of breath TECHNIQUE: FINDINGS: Heart is enlarged. There is blunting of the costophrenic angles are more on the left side. There is pulmonary vascular congestion. IMPRESSION: Congestive heart failure with pleural effusions that appears worse than last exam.
[2022-01-04 20:59] LABS: Anisocytosis Slight; Basophils % (A) 0 %; Eosinophils % (A) 0 %; HCT 31.5 % (34.0-46.0); HGB 9.1 gm/dL (11.4-16.0); Hypochromasia Marked; Lymphocytes # (A) 1.7 k/uL (1.0-4.8); Lymphocytes % (A) 22 %; MCH 25.3 pg (25.0-35.0); MCHC 28.9 g/dL (31.0-37.0); MCV 87.4 fL (80.0-100.0); Mean Platelet Volume 8.9; Monocytes # (A) 0.4 k/uL (0-1.0); Monocytes % (A) 5 %; Neutrophils # (A) 5.6 k/uL (1.3-7.7); Neutrophils % (A) 72 %; Platelet Count 286 k/uL (150-450); RDW 17.8 % (11.5-15.5); WBC 7.9 k/uL (3.8-10.6)
[2022-01-04 21:05] LABS: INR 1.2 (<1.2); Partial Thromboplastin Time 24.5 sec (22.0-30.0); Prothrombin Time 12.8 sec (9.0-12.0)
[2022-01-04] MEDS ORDERED: DILTIAZEM DRIP BOLUS FROM BAG 1 MG SOLN IV ONE (21:15)
[2022-01-04] MEDS ORDERED: DILTIAZEM 125 MG in SODIUM CHLORIDE 0.9% 100 ML IV SCH (21:15)
[2022-01-04 21:25] LABS: Albumin 3.3 g/dL (3.5-5.0); Calcium 8.8 mg/dL (8.4-10.2); Magnesium 1.6 mg/dL (1.6-2.3); Potassium 3.3 mmol/L (3.5-5.1); Total Bilirubin 0.5 mg/dL (0.2-1.3); Total Protein 6.2 g/dL (6.3-8.2)
[2022-01-05] MEDS: FUROSEMIDE 10 MG/ML 4 ML VIAL IV SCH ×3 (00:36→20:40)
[2022-01-05] MEDS ORDERED: ALPRAZolam 0.25 MG TAB PO PRN (01:00)
[2022-01-05] MEDS ORDERED: BACLOFEN 10 MG TAB PO PRN (01:00)
[2022-01-05] MEDS ORDERED: NON FORMULARY DRUG (Fluticasone/Umeclidin/Vilanter [Trelegy Ellipta 100-62.5-25] 1 EACH Bl INHALATION PRN (01:00)
[2022-01-05] MEDS ORDERED: ALBUTEROL NEBULIZED 2.5 MG/3 ML INHALATION PRN (01:00)
[2022-01-05] MEDS ORDERED: POTASSIUM CHLORIDE ER 20 MEQ TAB.ER PO STA ×3 (01:03→09:56)
[2022-01-05] MEDS: ACETAMINOPHEN TAB 500 MG TAB PO PRN ×2 (01:49→10:31)
[2022-01-05] MEDS: APIXABAN 5 MG TAB PO SCH ×3 (01:49→20:39)
[2022-01-05] MEDS: GABAPENTIN 100 MG CAP PO SCH ×4 (01:50→20:44)
[2022-01-05 08:08] LABS: Calcium 8.8 mg/dL (8.4-10.2); Potassium 3.7 mmol/L (3.5-5.1)
[2022-01-05] MEDS: LETROZOLE 2.5 MG TAB PO SCH (08:25)
[2022-01-05] MEDS: ASPIRIN 81 MG PO SCH (08:25)
[2022-01-05] MEDS ORDERED: METOPROLOL TARTRATE 50 MG TAB PO SCH (09:00)
[2022-01-05] MEDS: IPRATROPIUM 0.5 MG/2.5 ML NEBU INHALATION SCH ×4 (09:20→19:50)
[2022-01-05] MEDS: SYMBICORT 80-4.5 MCG INHALER INHALATION SCH ×2 (09:24→19:50)
--- NOTE | 2022-01-05 10:16 | P.HPIM ---
History of Present Illness Patient is a pleasant 46-year-old female came in with compensative shortness of breath and orthopnea, patient does have history of congestive heart failure EF of around 25-30% in the past patient has ischemic cardiomyopathy had heart attacks in the past and CABG in the past. Patient is found to have elevated BNP of 10,000 and the patient the chest x-ray is consistent with congestive heart failure with bilateral pleural effusions and primary congestion. Patient the quit smoking many months ago started smoking again last July. Chest x-ray did not show any pneumonia patient is comparing of coffee per day sputum production. had the atrial fibrillation with rapid ventricular rate on admission was on Cardizem uses metoprolol Cardizem is being this can urine patient's metoprolol dose will be increased cardiology was consulted. REVIEW OF SYSTEMS: CONSTITUTIONAL: No fever, no malaise, no fatigue. HEENT: No recent visual problems or hearing problems. Denied any sore throat. CARDIOVASCULAR: No chest pain, no palpitations, no syncope. PULMONARY: no hemoptysis. GASTROINTESTINAL: No diarrhea, no nausea, no vomiting, no abdominal pain. NEUROLOGICAL: No headaches, no weakness, no numbness. HEMATOLOGICAL: Denies any bleeding or petechiae. GENITOURINARY: Denies any burning micturition, frequency, or urgency. MUSCULOSKELETAL/RHEUMATOLOGICAL: Denies any joint pain, swelling, or any muscle pain. ENDOCRINE: Denies any polyuria or polydipsia. The rest of the 14-point review of systems is negative. PHYSICAL EXAMINATION: GENERAL: The patient is alert and oriented x3, not in any acute distress. Well developed, well nourished. HEENT: Pupils are round and equally reacting to light. EOMI. No scleral icterus. No conjunctival pallor. Normocephalic, atraumatic. No pharyngeal erythema. No thyromegaly. CARDIOVASCULAR: S1 and S2 present. No murmurs, rubs, or gallops. Elevated JVD PULMONARY: Type bilaterally along with bibasilar crackles ABDOMEN: Soft, nontender, nondistended, normoactive bowel sounds. No palpable organomegaly. MUSCULOSKELETAL: No joint swelling or deformity. EXTREMITIES: No cyanosis, clubbing, does have pedal edema NEUROLOGICAL: Gross neurological examination did not reveal any focal deficits. SKIN: No rashes. Assessment and plan Congestive heart failure chronic systolic dysfunction with acute exacerbation: Patient will be continued on IV Lasix patient uses 20 mg twice a day of Lasix patient is presently on 40 every 8 which probably need to be cut down to 40 twice a day patient has good urine output. -Atrial fibrillation with rapid rate patient has a known proximal A. fib does take Eliquis for anticoagulation metoprolol dose will be increased discontinue Cardizem. -COPD with mild acute exacerbation patient was started on inhaled steroids inhalational treatments. -Depression -Coronary artery disease -Peripheral neuropathy -Hyperlipidemia -History of cerebral vascular accident in the past without any residual weakness -Mitral valve prolapse DVT prophylaxis: On Eliquis Past Medical History Past Medical History: Atrial Fibrillation, Coronary Artery Disease (CAD), Cancer, Heart Failure, COPD, CVA/TIA, Hyperlipidemia, Hypertension, Mitral Valve Prolapse (MVP), Neurologic Disorder, Osteoarthritis (OA), Pneumonia, Skin Disorder, Sleep Apnea/CPAP/BIPAP, Vascular Disorder Additional Past Medical History / Comment(s): "Upper back non-cancerous mass removed 08/17/21 at [facility].". Multiple Sclerosis. PAD/chronic wounds left foot/lower leg, peripheral neuropathy. CVA Jul/Aug 2021. History of Any Multi-Drug Resistant Organisms: None Reported Past Surgical History: Appendectomy, Breast Surgery, Coronary Bypass/CABG, Heart Catheterization With Stent, Orthopedic Surgery, Tonsillectomy Additional Past Surgical History / Comment(s): 08/17/21 surgery at [facility]-cervical or upper back for mass, 11/2020 CABG 4 vessel, PCI/stents in 2005/2008, bilateral iliac arthrectomy/stents, left foot wound debridements, bronchoscopy/lavage, bilateral breast biopsies, D&C, lumpectomy right breast 08/2021. Right mastectomy (11/26/21) Past Anesthesia/Blood Transfusion Reactions: Motion Sickness Additional Past Anesthesia/Blood Transfusion Reaction / Comment(s): No hx blood transfusion. Date of Last Stent Placement:: 2008 Past Psychological History: Anxiety, Depression Additional Psychological History / Comment(s): Pt's due to Covid beginning of August 2021. Smoking Status: Former smoker Past Alcohol Use History: Rare Additional Past Alcohol Use History / Comment(s): Pt started smoking in 1960 and quit May 2020. Past Drug Use History: None Reported Additional Drug Use History / Comment(s): CBD lotion. - Past Family History Father Family Medical History: No Reported History Mother Family Medical History: Cancer Additional Family Medical History / Comment(s): Breast and brain cancer. Medications and Allergies Home Medications Medication Instructions Recorded Confirmed Type Atorvastatin [Lipitor] 80 mg PO HS 08/02/20 01/04/22 History Metoprolol Tartrate [Lopressor] 50 mg PO BID #60 tab 12/05/20 01/04/22 Rx ALPRAZolam [Xanax] 0.25 mg PO BID PRN 07/18/21 01/04/22 History Gabapentin [Neurontin] 100 mg PO TID 07/18/21 01/04/22 History Escitalopram [Lexapro] 5 mg PO HS 08/18/21 01/04/22 History Aspirin [Adult Low Dose Aspirin EC] 81 mg PO DAILY 08/20/21 01/04/22 History Apixaban [Eliquis] 5 mg PO BID #0 08/22/21 01/04/22 Rx Albuterol Sulfate [Ventolin HFA] 1 puff INHALATION RT-Q4H PRN 09/13/21 01/04/22 History Furosemide [Lasix] 20 mg PO BID PRN 09/13/21 01/04/22 History Fluticasone/Umeclidin/Vilanter 1 puff INHALATION RT-DAILY PRN 11/01/21 01/04/22 History [Trelegy Ellipta 100-62.5-25] Baclofen 10 mg PO QID PRN 01/04/22 01/04/22 History Letrozole [Femara] 2.5 mg PO DAILY 01/04/22 01/04/22 History lisinopriL [Zestril] 2.5 mg PO DAILY 01/04/22 01/04/22 History Allergies Allergy/AdvReac Type Severity Reaction Status Date / Time sumatriptan [From Imitrex] AdvReac Chest Pain Verified 01/04/22 22:47 Physical Exam Vitals: Vital Signs Temp Pulse Pulse Resp BP BP Pulse Ox 01/05/22 09:34 80 01/05/22 09:25 80 01/05/22 08:16 98.2 F 80 171/70 98 01/05/22 04:00 97.9 F 88 19 126/79 100 01/05/22 02:05 100 01/05/22 02:00 94 24 01/05/22 01:56 110 H 01/05/22 00:00 98.3 F 94 24 140/72 100 01/04/22 22:46 98.3 F 94 24 140/72 100 01/04/22 22:11 113 H 01/04/22 21:57 133 H 22 133/104 99 01/04/22 20:52 120 H 01/04/22 20:38 110 H 01/04/22 19:50 20 01/04/22 19:39 98.0 F 130 H 22 132/81 100 Intake and Output 01/04/22 01/05/22 01/05/22 22:59 06:59 14:59 Intake Total 130 Output Total 1550 Balance -1420 Intake: Intake, IV Titration 80 Amount Sodium Chloride 0.9% 1, 80 000 ml @ 50 mls/hr IV . Q20H STA Rx#:[id number] Oral 50 Output: Urine 1550 Other: Voiding Method External Catheter Weight 60.5 kg 60.5 kg Results CBC & Chem 7: 01/04/22 19:54 01/05/22 06:53 Labs: Abnormal Lab Results - Last 24 Hours (Table) 01/04/22 01/04/22 01/04/22 Range/Units 19:54 19:54 19:54 RBC 3.60 L (3.80-5.40) m/uL Hgb 9.1 L (11.4-16.0) gm/dL Hct 31.5 L (34.0-46.0) % MCHC 28.9 L (31.0-37.0) g/dL RDW 17.8 H (11.5-15.5) % PT 12.8 H (9.0-12.0) sec INR 1.2 H (<1.2) Potassium 3.3 L (3.5-5.1) mmol/L Carbon Dioxide (22-30) mmol/L BUN 19 H (7-17) mg/dL Glucose 126 H (74-99) mg/dL AST 37 H (14-36) U/L Troponin I (0.000-0.034) ng/mL Total Protein 6.2 L (6.3-8.2) g/dL Albumin 3.3 L (3.5-5.0) g/dL 01/04/22 01/05/22 Range/Units 19:54 06:53 RBC (3.80-5.40) m/uL Hgb (11.4-16.0) gm/dL Hct (34.0-46.0) % MCHC (31.0-37.0) g/dL RDW (11.5-15.5) % PT (9.0-12.0) sec INR (<1.2) Potassium (3.5-5.1) mmol/L Carbon Dioxide 31 H (22-30) mmol/L BUN (7-17) mg/dL Glucose 106 H (74-99) mg/dL AST (14-36) U/L Troponin I 0.067 H* (0.000-0.034) ng/mL Total Protein (6.3-8.2) g/dL Albumin (3.5-5.0) g/dL Thrombosis Risk Factor Assmnt - Choose All That Apply Any of the Below Risk Factors Present?: Yes Each Factor Represents 1 point: Abnormal pulmonary function (COPD), Obesity (BMI >25) Other Risk Factors: Yes Each Risk Factor Represents 2 Points: Age 61-74 years Thrombosis Risk Factor Assessment Total Risk Factor Score: 4 Thrombosis Risk Factor Assessment Level: Moderate Risk
[2022-01-05] MEDS: METOPROLOL TARTRATE 25 MG TAB PO SCH ×2 (10:28→20:39)
--- NOTE | 2022-01-05 11:17 | P.CRDCN ---
History of Present Illness Consult date: 01/05/22 Consult reason: chest pain, shortness of breath History of present illness: The patient is a 76-year-old female who follows in the office with Dr. Adame. She presented to the hospital with worsening shortness of breath and chest discomfort. She states this started over 24-48 hour period and progressively had gotten worse. Initial EKG showed A. fib with RVR. Chest x-ray showed pulmonary vascular congestion with bilateral pleural effusions. The patient was interviewed and examined lying comfortably in bed. She states she's been feeling much better since she has been receiving Lasix. She states she is breathing much more comfortably and no longer has chest discomfort. She denies ever feeling any palpitations. DIAGNOSTICS: Lab data WBC 7.9, hemoglobin 9.1, hematocrit 31.5, platelet 286, sodium 142, potassium 3.7, BUN 16, creatinine 0.84, BNP 10,400, troponin 0.06, AST 37, ALT 25 Vital signs: Blood pressure 171/70, temp 98.2F, pulse 80, SpO2 98% on 3 L nasal cannula Telemetry: Sinus mechanism with heart rates in the 80s PAST MEDICAL HISTORY: Coronary artery disease, cardiomyopathy, paroxysmal atrial fibrillation, LV thrombus, dyslipidemia, TIA, hypertension or valvular heart disease REVIEW OF SYSTEMS: No fever or chills. No cough or expectoration. No diaphoresis. Patient denies headache, dizziness, blurred vision, double vision. Patient denies any stomach discomfort. No nausea, vomiting. No hematochezia. No hematemesis. Denies any black stools or blood in his stools. Denies dysuria or hematuria. No muscle weakness or numbness. PHYSICAL EXAMINATION: This is a 76-year-old female in no apparent distress at the time of my examination. HEENT: Head is atraumatic, normocephalic. Pupils are equal, round. Sclerae ani cteric. Conjunctivae are clear. Mucous membranes of the mouth are moist. Neck is supple. There is no jugular venous distention. No carotid bruit is heard. CHEST EXAMINATION: Lungs are diminished to auscultation. No chest wall tenderness is noted on palpation or with deep breathing. Inspiratory wheezes bilaterally. No rhonchi. HEART EXAMINATION: Heart regular rate and rhythm. S1, S2 heard. No murmurs, gallops or rub. ABDOMEN: Soft, nontender. Bowel sounds are heard. No organomegaly noted. EXTREMITIES: 2+ peripheral pulses with no evidence of peripheral edema and no calf tenderness noted. NEUROLOGIC EXAMINATION: Patient is awake, alert and oriented x3. FINAL ASSESSMENT AND PLAN: A. fib with RVR, converted with Cardizem drip Congestive heart failure, last ejection fraction 25-30% History of LV thrombus, on anticoagulation Coronary artery disease Peripheral vascular disease Hypertension Dyslipidemia Moderate mitral regurgitation PLAN: Discontinue Cardizem drip as she is now back in sinus rhythm Increased beta patti to 50 mg twice daily Echocardiogram and Doppler study in sinus rhythm Further recommendations will be based upon clinical course I am dictating on behalf of Dr Luis Armijo's history/physical and assessment/plan. Past Medical History Past Medical History: Atrial Fibrillation, Coronary Artery Disease (CAD), Cancer, Heart Failure, COPD, CVA/TIA, Hyperlipidemia, Hypertension, Mitral Valve Prolapse (MVP), Neurologic Disorder, Osteoarthritis (OA), Pneumonia, Skin Disorder, Sleep Apnea/CPAP/BIPAP, Vascular Disorder Additional Past Medical History / Comment(s): "Upper back non-cancerous mass removed 08/17/21 at [facility].". Multiple Sclerosis. PAD/chronic wounds left foot/lower leg, peripheral neuropathy. CVA Jul/Aug 2021. History of Any Multi-Drug Resistant Organisms: None Reported Past Surgical History: Appendectomy, Breast Surgery, Coronary Bypass/CABG, Heart Catheterization With Stent, Orthopedic Surgery, Tonsillectomy Additional Past Surgical History / Comment(s): 08/17/[address] [facility]-cervical or upper back for mass, 11/2020 CABG 4 vessel, PCI/stents in , bilateral iliac arthrectomy/stents, left foot wound debridements, bronchoscopy/lavage, bilateral breast biopsies, D&C, lumpectomy right breast 08/2021. Right mastectomy (11/26/21) Past Anesthesia/Blood Transfusion Reactions: Motion Sickness Additional Past Anesthesia/Blood Transfusion Reaction / Comment(s): No hx blood transfusion. Date of Last Stent Placement:: 2008 Past Psychological History: Anxiety, Depression Additional Psychological History / Comment(s): Pt's due to Covid beginning of August 2021. Smoking Status: Former smoker Past Alcohol Use History: Rare Additional Past Alcohol Use History / Comment(s): Pt started smoking in 1960 and quit May 2020. Past Drug Use History: None Reported Additional Drug Use History / Comment(s): CBD lotion. - Past Family History Father Family Medical History: No Reported History Mother Family Medical History: Cancer Additional Family Medical History / Comment(s): Breast and brain cancer. Medications and Allergies Home Medications Medication Instructions Recorded Confirmed Type Atorvastatin [Lipitor] 80 mg PO HS 08/02/20 01/04/22 History Metoprolol Tartrate [Lopressor] 50 mg PO BID #60 tab 12/05/20 01/04/22 Rx ALPRAZolam [Xanax] 0.25 mg PO BID PRN 07/18/21 01/04/22 History Gabapentin [Neurontin] 100 mg PO TID 07/18/21 01/04/22 History Escitalopram [Lexapro] 5 mg PO HS 08/18/21 01/04/22 History Aspirin [Adult Low Dose Aspirin EC] 81 mg PO DAILY 08/20/21 01/04/22 History Apixaban [Eliquis] 5 mg PO BID #0 08/22/21 01/04/22 Rx Albuterol Sulfate [Ventolin HFA] 1 puff INHALATION RT-Q4H PRN 09/13/21 01/04/22 History Furosemide [Lasix] 20 mg PO BID PRN 09/13/21 01/04/22 History Fluticasone/Umeclidin/Vilanter 1 puff INHALATION RT-DAILY PRN 11/01/21 01/04/22 History [Trelegy Ellipta 100-62.5-25] Baclofen 10 mg PO QID PRN 01/04/22 01/04/22 History Letrozole [Femara] 2.5 mg PO DAILY 01/04/22 01/04/22 History lisinopriL [Zestril] 2.5 mg PO DAILY 01/04/22 01/04/22 History Allergies Allergy/AdvReac Type Severity Reaction Status Date / Time sumatriptan [From Imitrex] AdvReac Chest Pain Verified 01/04/22 22:47 Physical Exam Vitals: Vital Signs Temp Pulse Pulse Resp BP BP Pulse Ox 01/05/22 08:16 98.2 F 80 171/70 98 01/05/22 04:00 97.9 F 88 19 126/79 100 01/05/22 02:05 100 01/05/22 02:00 94 24 01/05/22 01:56 110 H 01/05/22 00:00 98.3 F 94 24 140/72 100 01/04/22 22:46 98.3 F 94 24 140/72 100 01/04/22 22:11 113 H 01/04/22 21:57 133 H 22 133/104 99 01/04/22 20:52 120 H 01/04/22 20:38 110 H 01/04/22 19:50 20 01/04/22 19:39 98.0 F 130 H 22 132/81 100 Intake and Output 01/04/22 01/05/22 01/05/22 22:59 06:59 14:59 Intake Total 130 Output Total 1550 Balance -1420 Intake: Intake, IV Titration 80 Amount Sodium Chloride 0.9% 1, 80 000 ml @ 50 mls/hr IV . Q20H [facility] Rx#:[id number] Oral 50 Output: Urine 1550 Other: Voiding Method External Catheter Weight 60.5 kg 60.5 kg Results 01/04/22 19:54 01/05/22 06:53 Cardiac Enzymes 01/04/22 01/04/22 Range/Units 19:54 19:54 AST 37 H (14-36) U/L Troponin I 0.067 H* (0.000-0.034) ng/mL Coagulation 01/04/22 Range/Units 19:54 PT 12.8 H (9.0-12.0) sec APTT 24.5 (22.0-30.0) sec CBC 01/04/22 Range/Units 19:54 WBC 7.9 (3.8-10.6) k/uL RBC 3.60 L (3.80-5.40) m/uL Hgb 9.1 L (11.4-16.0) gm/dL Hct 31.5 L (34.0-46.0) % Plt Count 286 (150-450) k/uL Comprehensive Metabolic Panel 01/04/22 01/05/22 Range/Units 19:54 06:53 Sodium 139 142 (137-145) mmol/L Potassium 3.3 L 3.7 (3.5-5.1) mmol/L Chloride 104 102 (98-107) mmol/L Carbon Dioxide 29 31 H (22-30) mmol/L BUN 19 H 16 (7-17) mg/dL Creatinine 0.86 0.84 (0.52-1.04) mg/dL Glucose 126 H 106 H (74-99) mg/dL Calcium 8.8 8.8 (8.4-10.2) mg/dL AST 37 H (14-36) U/L ALT 25 (4-34) U/L Alkaline Phosphatase 109 (38-126) U/L Total Protein 6.2 L (6.3-8.2) g/dL Albumin 3.3 L (3.5-5.0) g/dL Current Medications Generic Name Dose Route Start Last Admin Trade Name Freq PRN Reason Stop Dose Admin Acetaminophen 500 mg 01/05/22 01:03 01/05/22 01:49 Acetaminophen Tab 500 Mg Tab PO 500 mg Q6HR PRN Administration Fever and/ or Pain Albuterol Sulfate 2.5 mg 01/05/22 01:00 01/05/22 01:56 Albuterol Nebulized 2.5 Mg/3 Ml INHALATION 2.5 mg RT-Q4H PRN Administration Shortness Of Breath Alprazolam 0.25 mg 01/05/22 01:00 01/05/22 01:49 Alprazolam 0.25 Mg Tab PO 0.25 mg BID PRN Administration Anxiety Apixaban 5 mg 01/05/22 01:15 01/05/22 01:49 Apixaban 5 Mg Tab PO 5 mg BID MARY ANNE Administration Protocol Aspirin 81 mg 01/05/22 09:00 01/05/22 08:25 Aspirin 81 Mg PO 81 mg DAILY MARY ANNE Administration Atorvastatin Calcium 80 mg 01/05/22 21:00 Atorvastatin 80 Mg Tab PO HS MARY ANNE Baclofen 10 mg 01/05/22 01:00 01/05/22 01:49 Baclofen 10 Mg Tab PO 10 mg QID PRN Administration Muscle Spasm Budesonide/Formoterol Fumarate 2 puff 01/05/22 08:00 Symbicort 80-4.5 Mcg Inhaler INHALATION RT-BID MARY ANNE Escitalopram Oxalate 5 mg 01/05/22 21:00 Escitalopram 5 Mg Tab PO HS [facility] Furosemide 40 mg 01/04/22 22:00 01/05/22 05:47 Furosemide 10 Mg/Ml 4 Ml Vial IV 40 mg Q8H MARY ANNE Administration Gabapentin 100 mg 01/05/22 01:01 01/05/22 08:25 Gabapentin 100 Mg Cap PO 100 mg TID MARY ANNE Administration Sodium Chloride 1,000 mls @ 50 mls/hr 01/04/22 19:51 01/04/22 20:18 Saline 0.9% IV 01/05/22 15:50 50 mls/hr .Q20H [facility] Administration Ipratropium [place] 0.5 mg 01/05/22 08:00 Ipratropium 0.5 Mg/2.5 Ml Nebu INHALATION RT-QID MARY ANNE Letrozole 2.5 mg 01/05/22 09:00 01/05/22 08:25 Letrozole 2.5 Mg Tab PO 2.5 mg DAILY MARY ANNE Administration Lisinopril 2.5 mg 01/05/22 09:00 01/05/22 08:26 Lisinopril 2.5 Mg Tab PO 2.5 mg DAILY MARY ANNE Administration Metoprolol Tartrate 50 mg 01/05/22 09:00 Metoprolol Tartrate 50 Mg Tab PO BID MARY ANNE Intake and Output 01/04/22 01/05/22 01/05/22 22:59 06:59 14:59 Intake Total 130 Output Total 1550 Balance -1420 Intake: Intake, IV Titration 80 Amount Sodium Chloride 0.9% 1, 80 000 ml @ 50 mls/hr IV . Q20H [facility] Rx#:[id number] Oral 50 Output: Urine 1550 Other: Voiding Method External Catheter Weight 60.5 kg 60.5 kg 01/04/22 19:54 01/05/22 06:53
[2022-01-05] MEDS: IPRATROPIUM-ALBUTEROL 3 ML NEB INHALATION PRN (12:40)
[2022-01-05] MEDS: BACLOFEN 10 MG TAB PO SCH ×2 (15:53→20:39)
[2022-01-05] MEDS: traMADol 50 MG TAB PO SCH ×2 (18:44→22:10)
[2022-01-05] MEDS: BUDESONIDE 0.5 MG/2 ML NEBU INHALATION SCH (19:49)
[2022-01-05] MEDS: ATORVASTATIN 80 MG TAB PO SCH (20:39)
[2022-01-05] MEDS: ESCITALOPRAM 5 MG TAB PO SCH (20:39)
[2022-01-06] MEDS: ACETAMINOPHEN TAB 500 MG TAB PO PRN (05:16)
[2022-01-06 07:08] LABS: Calcium 8.8 mg/dL (8.4-10.2); Magnesium 1.6 mg/dL (1.6-2.3); Potassium 4.2 mmol/L (3.5-5.1)
[2022-01-06] MEDS: BUDESONIDE 0.5 MG/2 ML NEBU INHALATION SCH (08:19)
[2022-01-06] MEDS: IPRATROPIUM-ALBUTEROL 3 ML NEB INHALATION PRN ×4 (08:20→20:15)
[2022-01-06] MEDS: IPRATROPIUM 0.5 MG/2.5 ML NEBU INHALATION SCH ×4 (08:20→20:26)
[2022-01-06] MEDS: SYMBICORT 80-4.5 MCG INHALER INHALATION SCH ×2 (08:21→20:20)
[2022-01-06] MEDS: traMADol 50 MG TAB PO SCH ×4 (09:41→20:09)
[2022-01-06] MEDS: BACLOFEN 10 MG TAB PO SCH ×3 (09:41→20:09)
[2022-01-06] MEDS: ASPIRIN 81 MG PO SCH (09:41)
[2022-01-06] MEDS: METOPROLOL TARTRATE 25 MG TAB PO SCH ×2 (09:41→20:08)
[2022-01-06] MEDS: APIXABAN 5 MG TAB PO SCH ×2 (09:42→20:09)
[2022-01-06] MEDS: FUROSEMIDE 10 MG/ML 4 ML VIAL IV SCH ×2 (09:42→20:10)
[2022-01-06] MEDS: GABAPENTIN 100 MG CAP PO SCH ×3 (09:42→20:09)
[2022-01-06] MEDS: LETROZOLE 2.5 MG TAB PO SCH (09:43)
--- NOTE | 2022-01-06 10:00 | CA ---
Transthoracic Echo Report Name: Sharmila Ayers Age: 76 Gender: F : 1945 Exam Date: 01/06/2022 08:51 Exam Location: [place] [facility] Ht (in): 52 Wt (lb): 133 Ordering Physician: Leela Gonzalez Attending/Referring Phys: [id number], Carlos Ep Technologist Sandy Escobedo, VIOLET Procedure CPT: Indications: chf Cardiac Hx: NC, STENTS, CABG X 3, TIA Technical Quality: Good Contrast 1: Total Dose (mL): Contrast 2: Total Dose (mL): MEASUREMENTS (Male / Female) Normal Values 2D ECHO LA Volume 66.2 cm??? 18 - 58 / 22 - 52 cm??? M-MODE Aortic Root Diameter MM 3.0 cm LA Systolic Diameter MM 4.2 cm LA Ao Ratio MM 1.4 MV E Point Septal Separation 0.9 cm AV Cusp Separation MM 1.2 cm DOPPLER MV Area PHT 4.6 cm??? Mitral E Point Velocity 89.6 cm/s Mitral A Point Velocity 43.8 cm/s Mitral E to A Ratio 2.0 MV Deceleration Time 163.2 ms MV E' Velocity 3.0 cm/s Mitral E to MV E' Ratio 29.9 FINDINGS Left Ventricle Left ventricular ejection fraction is estimated at 45-50 %. Inferior basal hypokinesis. Right Ventricle Normal right ventricular size and function. Right ventricular systolic pressure within normal limits. Right Atrium Normal right atrial size. Left Atrium Moderately increased left atrial volume. Mildly increased left atrial area. Mitral Valve Mitral valve thickened. [id number] mitral regurgitation. Aortic Valve Aortic valve sclerosis. Tricuspid Valve Structurally normal tricuspid valve. Pulmonic Valve Structurally normal pulmonic valve. Pericardium Normal pericardium. Aorta Normal size aortic root and proximal ascending aorta. CONCLUSIONS Normal LV size. Inferobasal hypokinesia and ejection fraction is about 45%. No pericardial effusion. Mild to moderate mitral regurgitation. Previewed by: Dr. Kari Winters MD (Electronically Signed) Final Date: 06 January 2022 09:59
--- NOTE | 2022-01-06 11:49 | P.PN ---
Subjective Progress Note Date: 01/06/22 HISTORY OF PRESENT ILLNESS: This is a 76-year-old female who follows in the office with Dr. Adame. Patient has a history of paroxysmal atrial fibrillation, LV thrombus, hypertension, h yperlipidemia, TIA, and coronary artery disease with previous stenting and CABG 3 vessels in November 2020. Patient is admitted to the hospital secondary to CHF and A-fib with RVR. Patient was placed on IV Cardizem and has since converted to sinus mechanism. She is maintaining sinus mechanism this morning. She remains on IV lasix 40mg BID. PHYSICAL EXAM: VITAL SIGNS: Reviewed. GENERAL: Well-developed in no acute distress. NECK: Supple. No JVD or thyromegaly LUNGS: Respirations even and unlabored. Lungs diminished with bibasilar crackles and expiratory wheezing. HEART: Regular rate and rhythm. S1 and S2 heard. EXTREMITIES: Normal range of motion. No clubbing or cyanosis. Peripheral pulses intact. Trace bilateral lower extremity edema ASSESSMENT: Paroxysmal atrial fibrillation with RVR Acute on chronic heart failure with reduced EF Abnormal troponins, likely NSTEMI Coronary artery disease with previous stenting and CABG 3 vessels Ischemic cardiomyopathy, most recent ejection fraction 25-30% History of LV thrombus Peripheral vascular disease Hypertension Hyperlipidemia PLAN: 2D echo ordered. Await results. Continue IV lasix Daily weights. Accurate I&O. Monitor kidney function. Continue current cardiac medications Continue telemetry monitoring Patient will likely need cardiac cath when she is medically stable Further recommendations pending patient course Nurse practitioner note has been reviewed by physician. Signing provider agrees with the documented findings, assessment, and plan of care. Objective - Vital Signs Vital signs: Vital Signs Temp 98.3 F 01/06/22 04:00 Pulse 64 01/06/22 08:32 Resp 20 01/06/22 08:27 BP 137/74 01/06/22 04:00 Pulse Ox 97 01/06/22 04:00 FiO2 Intake & Output 01/05/22 01/06/22 01/06/22 18:59 06:59 18:59 Intake Total 304.833 240 240 Output Total 350 1350 Balance -45.167 -1110 240 Weight 60.6 kg Intake: Intake, IV Titration 64.833 Amount Diltiazem 125 mg In 64.833 Sodium Chloride 0.9% 100 ml @ 5 MG/HR 5 mls/hr IV .Q24H MARY ANNE Rx#:[id number] Oral 240 240 240 Output: Urine 350 1350 Other: Voiding Method External Catheter External Catheter External Catheter - Labs CBC & Chem 7: 01/04/22 19:54 01/06/22 06:25 Labs: Abnormal Lab Results - Last 24 Hours (Table) 01/05/22 01/05/22 01/06/22 Range/Units 10:26 15:16 06:25 BUN 18 H (7-17) mg/dL Glucose 104 H (74-99) mg/dL Troponin I 2.830 H* 2.920 H* (0.000-0.034) ng/mL
[2022-01-06] MEDS ORDERED: Magnesium Replacement Protocol 1 EACH MISC MISCELLANE PRN (15:13)
--- NOTE | 2022-01-06 15:18 | P.PN ---
Subjective Progress Note Date: 01/06/22 Patient is a pleasant 46-year-old female came in with compensative shortness of breath and orthopnea, patient does have history of congestive heart failure EF of around 25-30% in the past patient has ischemic cardiomyopathy had heart attacks in the past and CABG in the past. Patient is found to have elevated BNP of 10,000 and the patient the chest x-ray is consistent with congestive heart failure with bilateral pleural effusions and primary congestion. Patient the quit smoking many months ago started smoking again last July. Chest x-ray did not show any pneumonia patient is comparing of coffee per day sputum production. had the atrial fibrillation with rapid ventricular rate on admission was on Cardizem uses metoprolol Cardizem is being this can urine patient's metoprolol dose will be increased cardiology was consulted. 01/06/2022 Patient evaluated today resting in bed. Overall she is feeling better. She continues on oxygen via nasal cannula 2-3 L, oxygen saturation is 99% and this can be weaned off probably. She has been started on eliquis. Metoprolol has been increased to 75 mg PO BID and she is now in sinus rhythm. She uses trelegy inhaler at home which is not stocked here for this reason she is on symbicort. Echocardiogram has been completed showing EF of 45% with inferobasal hypokinesia, there is mild to moderate mitral regurgitation. She continues on IV lasix BID, has been down -1.4 Liters in the last 24 hours. Labs today showing sodium 139, potassium 4.2, BUN 18, creatinine 0.86, magnesium 1.6. Cardiology is recommending cardiac cath when she is medically stable. Review of Systems Constitutional: Denied any fatigue denied any fever. Cardio vascular: denied any chest pain, palpitations Gastrointestinal: denied any nausea, vomiting, diarrhea Pulmonary: Denied any shortness of breath cough Neurologic denied any new focal deficits All inpatient medications were reviewed and appropriate changes in these medications as dictated in the interval history and assessment and plan. PHYSICAL EXAMINATION: GENERAL: The patient is alert and oriented x3, not in any acute distress. Well developed, well nourished. HEENT: Pupils are round and equally reacting to light. EOMI. No scleral icterus. No conjunctival pallor. Normocephalic, atraumatic. No pharyngeal erythema. No thyromegaly. CARDIOVASCULAR: S1 and S2 present. No murmurs, rubs, or gallops. Elevated JVD PULMONARY: Faint inspiratory wheeze noted. ABDOMEN: Soft, nontender, nondistended, normoactive bowel sounds. No palpable organomegaly. MUSCULOSKELETAL: No joint swelling or deformity. EXTREMITIES: No cyanosis, clubbing, does have pedal edema NEUROLOGICAL: Gross neurological examination did not reveal any focal deficits. SKIN: No rashes. Assessment and plan Congestive heart failure chronic systolic dysfunction, patient continues on IV lasix BID and cardiology is following patient -Atrial fibrillation with rapid rate patient has a known paroxysmal A. fib does take Eliquis for anticoagulation metoprolol dose will be increased discontinue Cardizem and patient is now in sinus rhythm. -COPD with mild acute exacerbation patient was started on inhaled steroids, she is maintained on trelegy outpatient -Depression -Coronary artery disease status post prior stenting and 3 vessel CABG -Peripheral neuropathy -Hyperlipidemia -History of cerebral vascular accident in the past without any residual weakness -Mitral valve prolapse -History of LV thrombus -Hypertension DVT prophylaxis: On Eliquis The impression and plan of care has been dictated by Carlene Loera, Nurse Practitioner as directed. Dr. Kacey MD I have performed a history and physical examination and medical decision making of this patient, discussed the same with the dictator, and agree with the dictators assessment and plan as written, documented as a scribe. Based on total visit time, I have performed more than 50% of this visit. Objective - Vital Signs Vital signs: Vital Signs Temp 97.8 F 01/06/22 12:13 Pulse 62 01/06/22 12:42 Resp 18 01/06/22 14:00 BP 139/80 01/06/22 12:13 Pulse Ox 99 01/06/22 12:13 FiO2 Intake & Output 01/05/22 01/06/22 01/06/22 18:59 06:59 18:59 Intake Total 304.833 240 240 Output Total 350 1350 500 Balance -45.167 -1110 -260 Weight 60.6 kg 60.6 kg Intake: Intake, IV Titration 64.833 Amount Diltiazem 125 mg In 64.833 Sodium Chloride 0.9% 100 ml @ 5 MG/HR 5 mls/hr IV .Q24H [facility] Rx#:[id number] Oral 240 240 240 Output: Urine 350 1350 500 Other: Voiding Method External Catheter External Catheter External Catheter - Labs CBC & Chem 7: 01/04/22 19:54 01/06/22 06:25 Labs: Abnormal Lab Results - Last 24 Hours (Table) 01/05/22 01/06/22 Range/Units 15:16 06:25 BUN 18 H (7-17) mg/dL Glucose 104 H (74-99) mg/dL Troponin I 2.920 H* (0.000-0.034) ng/mL Assessment and Plan Time with Patient: Less than 30
[2022-01-06] MEDS: MAGNESIUM SULFATE-D5W PMX 1 GM in DEXTROSE/WATER 1 100ML.BAG IVPB SCH ×2 (17:03→18:31)
[2022-01-06] MEDS: ATORVASTATIN 80 MG TAB PO SCH (20:09)
[2022-01-06] MEDS: ESCITALOPRAM 5 MG TAB PO SCH (20:44)
[2022-01-07] MEDS: IPRATROPIUM 0.5 MG/2.5 ML NEBU INHALATION SCH ×4 (08:11→19:44)
[2022-01-07] MEDS: SYMBICORT 80-4.5 MCG INHALER INHALATION SCH ×2 (08:11→19:45)
[2022-01-07] MEDS: IPRATROPIUM-ALBUTEROL 3 ML NEB INHALATION PRN (08:17)
[2022-01-07] MEDS: METOPROLOL TARTRATE 25 MG TAB PO SCH ×2 (08:53→20:03)
[2022-01-07] MEDS: BACLOFEN 10 MG TAB PO SCH ×3 (08:54→20:03)
[2022-01-07] MEDS: ASPIRIN 81 MG PO SCH (08:54)
[2022-01-07] MEDS: FUROSEMIDE 10 MG/ML 4 ML VIAL IV SCH (08:54)
[2022-01-07] MEDS: APIXABAN 5 MG TAB PO SCH ×2 (08:54→20:02)
[2022-01-07] MEDS: GABAPENTIN 100 MG CAP PO SCH ×3 (08:54→20:03)
[2022-01-07] MEDS: LETROZOLE 2.5 MG TAB PO SCH (08:54)
[2022-01-07] MEDS: traMADol 50 MG TAB PO SCH ×3 (08:54→18:09)
[2022-01-07 10:31] LABS: Calcium 9.2 mg/dL (8.4-10.2); Potassium 3.7 mmol/L (3.5-5.1)
--- NOTE | 2022-01-07 10:36 | CT ---
EXAMINATION TYPE: CT brain wo con DATE OF EXAM: 01/07/2022 COMPARISON: CT dated 08/18/2021 HISTORY: confusion CT DLP: 1099.4 mGycm Automated exposure control for dose reduction was used. TECHNIQUE: CT scan of the brain is performed without IV contrast administration. FINDINGS: Brain volume loss changes, likely age-related. Bilateral cerebral white matter hypodensities, likely representing advanced chronic microvascular ischemic changes. Right occipital cortical and subcortica l chronic infarct, appreciated previously. Scattered arterial atherosclerotic calcifications. No acute intracranial hemorrhage. No gross acute cortical infarct. No midline shift, herniation or ve ntriculomegaly. Unremarkable basal cisterns, sella and CP angles. No gross space-occupying lesion, va sogenic edema or mass effect. Unremarkable orbits. Clear visualized paranasal sinuses and mastoid air cells. Unremarkable calvarial bones. IMPRESSION: Brain volume loss changes, chronic ischemic changes and chronic right occipital infarct as described above. No acute intracranial hemorrhage or gross acute cortical infarct. No gross space-occupying lesion by this unenhanced CT scan.
--- NOTE | 2022-01-07 13:07 | P.PN ---
Subjective Progress Note Date: 01/07/22 HISTORY OF PRESENT ILLNESS: This is a 76-year-old female who follows in the office with Dr. Adame. Patient has a history of paroxysmal atrial fibrillation, LV thrombus, hypertension, h yperlipidemia, TIA, and coronary artery disease with previous stenting and CABG 3 vessels in November 2020. Patient is admitted to the hospital secondary to CHF and A-fib with RVR. Patient was placed on IV Cardizem and has since converted to sinus mechanism. She is maintaining sinus mechanism this morning. She remains on IV lasix 40mg BID. 01/07/2022 Patient examined this morning at the bedside. Patient appears confused this morning. She denies chest pain or pressure. She reports improvement in her lower extremity edema and her SOB. Echocardiogram performed reveals ejection fraction 45-50%, inferior basal hypokinesis, [id number] mitral regurgitation. PHYSICAL EXAM: VITAL SIGNS: Reviewed. GENERAL: Well-developed in no acute distress. NECK: Supple. No JVD or thyromegaly LUNGS: Respirations even and unlabored. Lungs diminished bilaterally. HEART: Regular rate and rhythm. S1 and S2 heard. EXTREMITIES: Normal range of motion. No clubbing or cyanosis. Peripheral pulses intact. Trace bilateral lower extremity edema ASSESSMENT: Paroxysmal atrial fibrillation with RVR Acute on chronic heart failure with reduced EF Abnormal troponins, likely NSTEMI Coronary artery disease with previous stenting and CABG 3 vessels Ischemic cardiomyopathy, most recent ejection fraction 25-30%, repeat echo 45- 50% History of LV thrombus Peripheral vascular disease Hypertension Hyperlipidemia PLAN: Continue IV lasix. Decrease dose to 40mg IV daily Daily weights. Accurate I&O. Monitor kidney function. Continue current cardiac medications Continue telemetry monitoring Patient will likely need cardiac cath when she is medically stable Further recommendations pending patient course Nurse practitioner note has been reviewed by physician. Signing provider agrees with the documented findings, assessment, and plan of care. Objective - Vital Signs Vital signs: Vital Signs Temp 98.0 F 01/07/22 09:15 Pulse 79 01/07/22 09:15 Resp 20 01/07/22 09:15 BP 149/90 01/07/22 09:15 Pulse Ox 94 L 01/07/22 09:15 FiO2 Intake & Output 01/06/22 01/07/22 01/07/22 18:59 06:59 18:59 Intake Total 240 485 Output Total 700 650 Balance -460 -165 Weight 60.6 kg 58 kg Intake: Oral 240 485 Output: Urine 700 650 Other: Voiding Method External Catheter External Catheter External Catheter # Voids 2 - Labs CBC & Chem 7: 01/04/22 19:54 01/07/22 09:41 Labs: Abnormal Lab Results - Last 24 Hours (Table) 01/07/22 Range/Units 09:41 Chloride 97 L (98-107) mmol/L Carbon Dioxide 33 H (22-30) mmol/L BUN 19 H (7-17) mg/dL Glucose 110 H (74-99) mg/dL
[2022-01-07] MEDS ORDERED: POTASSIUM CHLORIDE ER 20 MEQ TAB.ER PO STA (13:24)
--- NOTE | 2022-01-07 16:59 | P.PN ---
Subjective Progress Note Date: 01/07/22 Patient is a pleasant 46-year-old female came in with compensative shortness of breath and orthopnea, patient does have history of congestive heart failure EF of around 25-30% in the past patient has ischemic cardiomyopathy had heart attacks in the past and CABG in the past. Patient is found to have elevated BNP of 10,000 and the patient the chest x-ray is consistent with congestive heart failure with bilateral pleural effusions and primary congestion. Patient the quit smoking many months ago started smoking again last July. Chest x-ray did not show any pneumonia patient is comparing of coffee per day sputum production. had the atrial fibrillation with rapid ventricular rate on admission was on Cardizem uses metoprolol Cardizem is being this can urine patient's metoprolol dose will be increased cardiology was consulted. 01/06/2022 Patient evaluated today resting in bed. Overall she is feeling better. She continues on oxygen via nasal cannula 2-3 L, oxygen saturation is 99% and this can be weaned off probably. She has been started on eliquis. Metoprolol has been increased to 75 mg PO BID and she is now in sinus rhythm. She uses trelegy inhaler at home which is not stocked here for this reason she is on symbicort. Echocardiogram has been completed showing EF of 45% with inferobasal hypokinesia, there is mild to moderate mitral regurgitation. She continues on IV lasix BID, has been down -1.4 Liters in the last 24 hours. Labs today showing sodium 139, potassium 4.2, BUN 18, creatinine 0.86, magnesium 1.6. Cardiology is recommending cardiac cath when she is medically stable. 01/07/2022 Patient elevated today resting in bed, she is alert 1 which is a change in mental status. 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 Brain CT without contrast was completed today which shows no hemorrhage and no acute stroke. Continue to monitor neuro status will start patient on a small dose of Seroquel the evening for some possible acute hospital delirium. Patient is on Lexapro and accommodation can prolong QT interval which was reviewed and her QTC is showing 385 on EKG. Labs show serum sodium 139, potassium 3.7, chloride 97, CO2 33, BUN 19, creatinine 0.91. Blood pressure today 134/67. IV lasix decreased to daily. Review of Systems Constitutional: Denied any fatigue denied any fever. Cardio vascular: denied any chest pain, palpitations Gastrointestinal: denied any nausea, vomiting, diarrhea Pulmonary: Denied any shortness of breath cough Neurologic denied any new focal deficits All inpatient medications were reviewed and appropriate changes in these medications as dictated in the interval history and assessment and plan. PHYSICAL EXAMINATION: GENERAL: The patient is alert and oriented x3, not in any acute distress. Well developed, well nourished. HEENT: Pupils are round and equally reacting to light. EOMI. No scleral icterus. No conjunctival pallor. Normocephalic, atraumatic. No pharyngeal erythema. No thyromegaly. CARDIOVASCULAR: S1 and S2 present. No murmurs, rubs, or gallops. Elevated JVD PULMONARY: Faint inspiratory wheeze noted. ABDOMEN: Soft, nontender, nondistended, normoactive bowel sounds. No palpable organomegaly. MUSCULOSKELETAL: No joint swelling or deformity. EXTREMITIES: No cyanosis, clubbing, does have pedal edema NEUROLOGICAL: Gross neurological examination did not reveal any focal deficits. SKIN: No rashes. Assessment and plan Congestive heart failure chronic systolic dysfunction, patient continues on IV lasix which has been decreased to daily. -Atrial fibrillation with rapid rate patient has a known paroxysmal A. fib does take Eliquis for anticoagulation metoprolol dose will be increased discontinue Cardizem and patient is now in sinus rhythm. -COPD with mild acute exacerbation patient was started on inhaled steroids, she is maintained on trelegy outpatient -Acute delirium, brain CT negative for acute changes, will trial seroquel tonight and continue to monitor -Depression -Coronary artery disease status post prior stenting and 3 vessel CABG -Peripheral neuropathy -Hyperlipidemia -History of cerebral vascular accident in the past without any residual weakness -Mitral valve prolapse -History of LV thrombus -Hypertension DVT prophylaxis: On Eliquis The impression and plan of care has been dictated by Carlene Loera Nurse Practitioner as directed. Dr. Kacey MD I have performed a history and physical examination and medical decision making of this patient, discussed the same with the dictator, and agree with the dictators assessment and plan as written, documented as a scribe. Based on total visit time, I have performed more than 50% of this visit. Objective - Vital Signs Vital signs: Vital Signs Temp 98.0 F 01/07/22 09:15 Pulse 79 01/07/22 09:15 Resp 20 01/07/22 09:15 BP 149/90 01/07/22 09:15 Pulse Ox 94 L 01/07/22 09:15 FiO2 Intake & Output 01/06/22 01/07/22 01/07/22 18:59 06:59 18:59 Intake Total 240 485 Output Total 700 650 Balance -460 -165 Weight 60.6 kg 58 kg Intake: Oral 240 485 Output: Urine 700 650 Other: Voiding Method External Catheter External Catheter External Catheter # Voids 2 - Labs CBC & Chem 7: 01/04/22 19:54 01/07/22 09:41 Labs: Abnormal Lab Results - Last 24 Hours (Table) 01/07/22 Range/Units 09:41 Chloride 97 L (98-107) mmol/L Carbon Dioxide 33 H (22-30) mmol/L BUN 19 H (7-17) mg/dL Glucose 110 H (74-99) mg/dL Assessment and Plan Time with Patient: Less than 30
[2022-01-07] MEDS ORDERED: traMADol 50 MG TAB PO PRN (18:37)
[2022-01-07] MEDS ORDERED: QUEtiapine 25 MG TAB PO PRN (18:38)
[2022-01-07 19:09] LABS: Glucose,Whole Blood 150 mg/dL (75-99)
[2022-01-07 19:24] LABS: ABG Base Excess 8.5 mmol/L; ABG HCO3 34 mmol/L (21-25); ABG Oxygen Saturation 94.1 % (94-97); ABG PCO2 58 mmHg (35-45); ABG PH 7.38 (7.35-7.45); ABG PO2 72 mmHg (83-108); ABG TCO2 36 mmol/L (19-24); Allen Test Performed? Yes
--- NOTE | 2022-01-07 19:43 | CT ---
EXAMINATION TYPE: CT brain wo con CT DLP: 1111.4 mGycm, Automated exposure control for dose reduction was used. DATE OF EXAM: 01/07/2022 7:07 PM COMPARISON: MRI brain 08/20/2021. CT 08/18/2021. CLINICAL INDICATION:Female, 76 years old with history of AMS, increased AMS TECHNIQUE: Brain: Multiple axial CT images of the brain were obtained without IV contrast. FINDINGS: Brain: Extra-axial spaces: No abnormal extra-axial fluid collections. Ventricular system: Dilatation in proportion to cerebral atrophy. 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 No acute intraparenchymal hemorrhage or mass effect. The tang-white junction is w ell differentiated. Scattered hypoattenuating areas are seen within the white matter. Cerebellum: Unremarkable. Mass effect: No evidence of midline shift. Intracranial vasculature: Atherosclerotic calcifications of the intracranial vessels. Soft tissues: Normal. Calvarium/osseous structures: No depressed skull fracture. Paranasal sinuses and mastoid air cells: Mild scattered paranasal sinus disease. Visualized orbits: Orbital contents are intact. IMPRESSION: 1. Continued evolution of right parietal infarct with encephalomalacia as seen on 08/20/2021. No new a reas suspicious for acute/subacute infarct. 2. Nonspecific white matter changes.
[2022-01-07] MEDS: ATORVASTATIN 80 MG TAB PO SCH (20:02)
[2022-01-07] MEDS: ESCITALOPRAM 5 MG TAB PO SCH (20:03)
[2022-01-07 20:13] LABS: Albumin 3.6 g/dL (3.5-5.0); Potassium 4.2 mmol/L (3.5-5.1); Total Bilirubin 0.6 mg/dL (0.2-1.3); Total Protein 6.8 g/dL (6.3-8.2)
[2022-01-07 20:20] LABS: Anisocytosis Slight; HCT 36.2 % (34.0-46.0); HGB 10.5 gm/dL (11.4-16.0); Hypochromasia Marked; MCH 25.7 pg (25.0-35.0); MCHC 28.9 g/dL (31.0-37.0); MCV 88.7 fL (80.0-100.0); Mean Platelet Volume 8.8; Platelet Count 309 k/uL (150-450); Poikilocytosis Slight; RBC 4.08 m/uL (3.80-5.40); RDW 17.9 % (11.5-15.5); WBC 9.7 k/uL (3.8-10.6)
[2022-01-07] MEDS ORDERED: QUEtiapine 25 MG TAB PO SCH (21:00)
[2022-01-08] MEDS: BACLOFEN 10 MG TAB PO SCH ×4 (07:37→19:56)
[2022-01-08] MEDS: LETROZOLE 2.5 MG TAB PO SCH (07:38)
[2022-01-08] MEDS: METOPROLOL TARTRATE 25 MG TAB PO SCH ×2 (07:38→19:56)
[2022-01-08] MEDS: GABAPENTIN 100 MG CAP PO SCH ×4 (07:38→19:56)
[2022-01-08] MEDS: APIXABAN 5 MG TAB PO SCH ×2 (07:38→19:56)
[2022-01-08] MEDS: ASPIRIN 81 MG PO SCH (07:38)
[2022-01-08] MEDS: IPRATROPIUM 0.5 MG/2.5 ML NEBU INHALATION SCH ×4 (07:46→20:04)
[2022-01-08] MEDS: SYMBICORT 80-4.5 MCG INHALER INHALATION SCH (07:46)
[2022-01-08] MEDS ORDERED: FUROSEMIDE 10 MG/ML 4 ML VIAL IV SCH (09:00)
--- NOTE | 2022-01-08 09:32 | XR ---
EXAMINATION TYPE: XR chest 2V DATE OF EXAM: 01/08/2022 COMPARISON: Chest x-ray dated 01/04/2022 HISTORY: Redness of breath TECHNIQUE: Frontal and lateral views of the chest are obtained. FINDINGS: Coronary artery calcifications are present, patient is post left atrial appendage clip deo cement. Aorta is dense, patient is rotated. Surgical clips are again noted and is superior aspect of left hemithorax level. No evident pneumothorax or sizable pleural effusion. Heart is enlarged. Patchy density is present at the left lung base, suspect some improvement in airspace disease. IMPRESSION: Findings may represent some basilar atelectasis, patient is rotated. Cardiomegaly and po stop changes. Coronary artery disease.
--- NOTE | 2022-01-08 12:29 | P.PN ---
Subjective Progress Note Date: 01/08/22 Patient is a pleasant 46-year-old female came in with compensative shortness of breath and orthopnea, patient does have history of congestive heart failure EF of around 25-30% in the past patient has ischemic cardiomyopathy had heart attacks in the past and CABG in the past. Patient is found to have elevated BNP of 10,000 and the patient the chest x-ray is consistent with congestive heart failure with bilateral pleural effusions and primary congestion. Patient the quit smoking many months ago started smoking again last July. Chest x-ray did not show any pneumonia patient is comparing of coffee per day sputum production. had the atrial fibrillation with rapid ventricular rate on admission was on Cardizem uses metoprolol Cardizem is being this can urine patient's metoprolol dose will be increased cardiology was consulted. 01/06/2022 Patient evaluated today resting in bed. Overall she is feeling better. She continues on oxygen via nasal cannula 2-3 L, oxygen saturation is 99% and this can be weaned off probably. She has been started on eliquis. Metoprolol has been increased to 75 mg PO BID and she is now in sinus rhythm. She uses trelegy inhaler at home which is not stocked here for this reason she is on symbicort. Echocardiogram has been completed showing EF of 45% with inferobasal hypokinesia, there is mild to moderate mitral regurgitation. She continues on IV lasix BID, has been down -1.4 Liters in the last 24 hours. Labs today showing sodium 139, potassium 4.2, BUN 18, creatinine 0.86, magnesium 1.6. Cardiology is recommending cardiac cath when she is medically stable. 01/07/2022 Patient elevated today resting in bed, she is alert 1 which is a change in mental status. 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 Brain CT without contrast was completed today which shows no hemorrhage and no acute stroke. Continue to monitor neuro status will start patient on a small dose of Seroquel the evening for some possible acute hospital delirium. Patient is on Lexapro and accommodation can prolong QT interval which was reviewed and her QTC is showing 385 on EKG. Labs show serum sodium 139, potassium 3.7, chloride 97, CO2 33, BUN 19, creatinine 0.91. Blood pressure today 134/67. IV lasix decreased to daily. 01/08/2022 Patient evaluated today and her mentation has improved slighty she is alert x 2 now. She underwent repeat brain CT 01/07/2022 in the evening redemonstrating right parietal infarct with encephalomalacia, however, this CT reports continued evolution. No new areas for acute/subacute infarct. There is nonspecific white matter changes. Patient to be evaluated today by neurology. She is afebrile, heart rate 83, blood pressure 159/71, 96% on 3L Nasal cannula, she was dyspneic today on exam, chest xray was completed showing some basilar atelectasis. Labs today showing sodium 140, potassium 4.2, CO2 increased up to 37, ABG's were ordered last night showing PO2 of 72, HCO3 34, total CO2 36, pCO2 58. She has been transitioned to oral lasix today. Review of Systems Constitutional: Denied any fatigue denied any fever. Cardio vascular: denied any chest pain, palpitations Gastrointestinal: denied any nausea, vomiting, diarrhea Pulmonary: Denied any shortness of breath cough Neurologic: Unable to complete full neurological exam she is not answering all questions. All inpatient medications were reviewed and appropriate changes in these medications as dictated in the interval history and assessment and plan. PHYSICAL EXAMINATION: GENERAL: The patient is alert and oriented x2, not in any acute distress. Well developed, well nourished. HEENT: Pupils are round and equally reacting to light. EOMI. No scleral icterus. No conjunctival pallor. Normocephalic, atraumatic. No pharyngeal erythema. No thyromegaly. CARDIOVASCULAR: S1 and S2 present. No murmurs, rubs, or gallops. Elevated JVD PULMONARY: Lungs are clear today, she is dyspneic. ABDOMEN: Soft, nontender, nondistended, normoactive bowel sounds. No palpable organomegaly. MUSCULOSKELETAL: No joint swelling or deformity. EXTREMITIES: No cyanosis, clubbing, does have pedal edema NEUROLOGICAL: Alert x 2 SKIN: No rashes. Assessment and plan Congestive heart failure chronic systolic dysfunction, patient has been transitioned to oral lasix. -Atrial fibrillation with rapid rate patient has a known paroxysmal A. fib does take Eliquis for anticoagulation metoprolol dose will be increased discontinue Cardizem and patient is now in sinus rhythm. -COPD with mild acute exacerbation patient was started on inhaled steroids, she is maintained on trelegy outpatient -Altered mental status with repeat brain CT showing continued evolution of right parietal infarct with encephalomalacia, she will be evaluated by neurology today. Mentation is slightly improved today. -Depression -Coronary artery disease status post prior stenting and 3 vessel CABG -Peripheral neuropathy -Hyperlipidemia -History of cerebral vascular accident in the past without any residual weakness -Mitral valve prolapse -History of LV thrombus -Hypertension DVT prophylaxis: On Eliquis Full Code The impression and plan of care has been dictated by Carlene Loera, Nurse Practitioner as directed. Dr. Kacey MD I have performed a history and physical examination and medical decision making of this patient, discussed the same with the dictator, and agree with the dictators assessment and plan as written, documented as a scribe. Based on total visit time, I have performed more than 50% of this visit. Objective - Vital Signs Vital signs: Vital Signs Temp 98.3 F 01/08/22 07:42 Pulse 83 01/08/22 08:00 Resp 22 01/08/22 08:00 BP 159/71 01/08/22 07:42 Pulse Ox 96 01/08/22 07:49 FiO2 Intake & Output 01/07/22 01/08/22 01/08/22 18:59 06:59 18:59 Output Total 125 Balance -125 Weight 53.5 kg Output: Urine 125 Other: Voiding Method External Catheter External Catheter External Catheter # Voids 1 - Labs CBC & Chem 7: 01/07/22 19:42 01/07/22 19:42 Labs: Abnormal Lab Results - Last 24 Hours (Table) 01/07/22 01/07/22 01/07/22 Range/Units 19:08 19:20 19:42 Hgb 10.5 L (11.4-16.0) gm/dL MCHC 28.9 L (31.0-37.0) g/dL RDW 17.9 H (11.5-15.5) % ABG pCO2 58 H (35-45) mmHg ABG pO2 72 L (83-108) mmHg ABG HCO3 34 H (21-25) mmol/L ABG Total CO2 36 H (19-24) mmol/L Carbon Dioxide (22-30) mmol/L BUN (7-17) mg/dL Glucose (74-99) mg/dL POC Glucose (mg/dL) 150 H (75-99) mg/dL 01/07/22 Range/Units 19:42 Hgb (11.4-16.0) gm/dL MCHC (31.0-37.0) g/dL RDW (11.5-15.5) % ABG pCO2 (35-45) mmHg ABG pO2 (83-108) mmHg ABG HCO3 (21-25) mmol/L ABG Total CO2 (19-24) mmol/L Carbon Dioxide 37 H (22-30) mmol/L BUN 22 H (7-17) mg/dL Glucose 108 H (74-99) mg/dL POC Glucose (mg/dL) (75-99) mg/dL Assessment and Plan Time with Patient: Less than 30
--- NOTE | 2022-01-08 13:13 | P.PN ---
Subjective Progress Note Date: 01/08/22 HISTORY OF PRESENT ILLNESS: This is a 76-year-old female who follows in the office with Dr. Adame. Patient has a history of paroxysmal atrial fibrillation, LV thrombus, hypertension, h yperlipidemia, TIA, and coronary artery disease with previous stenting and CABG 3 vessels in November 2020. Patient is admitted to the hospital secondary to CHF and A-fib with RVR. Patient was placed on IV Cardizem and has since converted to sinus mechanism. She is maintaining sinus mechanism this morning. She remains on IV lasix 40mg BID. 01/07/2022 Patient examined this morning at the bedside. Patient appears confused this morning. She denies chest pain or pressure. She reports improvement in her lower extremity edema and her SOB. Echocardiogram performed reveals ejection fraction 45-50%, inferior basal hypokinesis, [id number] mitral regurgitation. 01/08/2022 Patient examined this morning at the bedside. Patient remains slightly confused this morning. She denies chest pain or pressure. She reports mild SOB. She remains on IV lasix. Vital signs are stable. Chest x-ray this morning reveals findings representing basilar atelectasis, cardiomegaly and postoperative changes. PHYSICAL EXAM: VITAL SIGNS: Reviewed. GENERAL: Well-developed in no acute distress. NECK: Supple. No JVD or thyromegaly LUNGS: Respirations even and unlabored. Lungs diminished bilaterally. HEART: Regular rate and rhythm. S1 and S2 heard. EXTREMITIES: Normal range of motion. No clubbing or cyanosis. Peripheral pulses intact. Trace bilateral lower extremity edema ASSESSMENT: Paroxysmal atrial fibrillation with RVR Acute on chronic heart failure with reduced EF Abnormal troponins, likely NSTEMI Coronary artery disease with previous stenting and CABG 3 vessels Ischemic cardiomyopathy, most recent ejection fraction 25-30%, repeat echo 45- 50% History of LV thrombus Peripheral vascular disease Hypertension Hyperlipidemia PLAN: Discontinue IV lasix. Begin oral lasix 20mg starting tomorrow. Daily weights. Accurate I&O. Monitor kidney function. Continue current cardiac medications Continue telemetry monitoring Patient will likely need cardiac cath when she is medically stable Further recommendations pending patient course Nurse practitioner note has been reviewed by physician. Signing provider agrees with the documented findings, assessment, and plan of care. Objective - Vital Signs Vital signs: Vital Signs Temp 98.3 F 01/08/22 07:42 Pulse 83 01/08/22 12:35 Resp 22 01/08/22 12:35 BP 159/71 01/08/22 07:42 Pulse Ox 96 01/08/22 07:49 FiO2 Intake & Output 01/07/22 01/08/22 01/08/22 18:59 06:59 18:59 Output Total 125 Balance -125 Weight 53.5 kg Output: Urine 125 Other: Voiding Method External Catheter External Catheter External Catheter # Voids 1 - Labs CBC & Chem 7: 01/07/22 19:42 01/07/22 19:42 Labs: Abnormal Lab Results - Last 24 Hours (Table) 01/07/22 01/07/22 01/07/22 Range/Units 19:08 19:20 19:42 Hgb 10.5 L (11.4-16.0) gm/dL MCHC 28.9 L (31.0-37.0) g/dL RDW 17.9 H (11.5-15.5) % ABG pCO2 58 H (35-45) mmHg ABG pO2 72 L (83-108) mmHg ABG HCO3 34 H (21-25) mmol/L ABG Total CO2 36 H (19-24) mmol/L Carbon Dioxide (22-30) mmol/L BUN (7-17) mg/dL Glucose (74-99) mg/dL POC Glucose (mg/dL) 150 H (75-99) mg/dL 01/07/22 Range/Units 19:42 Hgb (11.4-16.0) gm/dL MCHC (31.0-37.0) g/dL RDW (11.5-15.5) % ABG pCO2 (35-45) mmHg ABG pO2 (83-108) mmHg ABG HCO3 (21-25) mmol/L ABG Total CO2 (19-24) mmol/L Carbon Dioxide 37 H (22-30) mmol/L BUN 22 H (7-17) mg/dL Glucose 108 H (74-99) mg/dL POC Glucose (mg/dL) (75-99) mg/dL
[2022-01-08 14:14] LABS: Allen Test Performed? Yes
--- NOTE | 2022-01-08 14:39 | P.CNNES ---
History of Present Illness Consult date: 01/08/22 Requesting physician: Nasima Chavis Reason for Consult: Altered mental status History of Present Illness: Patient is a 76-year-old female with history of atrial fibrillation, COPD, still smokes cigarettes came to the hospital by ambulance on 01/04/2022 for shortness of breath and chest pressure. EMS flow sheet not available in the chart. As per report from the nurse, patient apparently was conversing couple days ago as usual. Yesterday she was alert and oriented in the morning. However as the day progressed, patient mental status declined. Her breathing has also got worse, more labored breathing, and diaphoretic. This morning patient was only saying "yes" to every question, which was a significant change from baseline, which prompted this neurology consultation for altered mental status. No seizures peres ve been noted. Nurses have not noticed any focal deficits. Patient has been diagnosed with non-STEMI. EKG shows atrial fibrillation with rapid ventricular rate. Chest x-ray showed congestive heart failure with pleural effusion that appears worse than last exam. CT head from 01/07/2022 revealed brain volume loss changes, chronic ischemic changes and chronic right occipital infarct. No acute process. CT head from 01/07/2022 revealed continued evolution of right parietal infarct with encephalomalacia seen on 08/20/2021. No new areas of suspicious for acute/subacute infarct. Nonspecific white matter change. Patient's blood test shows WBC 9.7 hemoglobin 10.5 platelet 29. ABG with pH 7.38, pCO2 58, pO2 72 and saturation 94%. Electrolytes are normal, BUN 22, creatinine 0.99. Hepatic panel is normal, ammonia is normal, troponins are elevated. Mccray virus PCR negative, influenza screen negative. Patient was seen by myself on 08/22/2021 when patient has presented with acute CVA in 2 different vascular territories, one of them is a mild infarct on the right frontal lobe precentral gyrus near the apex, and the another area of restricted diffusion around an area of encephalomalacia of the right temporal parietal region. Strokes likely embolic in nature. Thrombus in the left- ventricular apex. Patient had history of breast cancer. Review of Systems Patient does admit to having headache, but cannot tell the degree on a scale of 1-10. She is obviously short of breath. Not able to answer any other questions. ROS unobtainable: due to mental status Past Medical History Past Medical History: Atrial Fibrillation, Coronary Artery Disease (CAD), Cancer, Heart Failure, COPD, CVA/TIA, Hyperlipidemia, Hypertension, Mitral Valve Prolapse (MVP), Neurologic Disorder, Osteoarthritis (OA), Pneumonia, Skin Disorder, Sleep Apnea/CPAP/BIPAP, Vascular Disorder Additional Past Medical History / Comment(s): "Upper back non-cancerous mass removed 08/17/21 at [facility].". Multiple Sclerosis. PAD/chronic wounds left foot/lower leg, peripheral neuropathy. CVA Jul/Aug 2021. History of Any Multi-Drug Resistant Organisms: None Reported Past Surgical History: Appendectomy, Breast Surgery, Coronary Bypass/CABG, Heart Catheterization With Stent, Orthopedic Surgery, Tonsillectomy Additional Past Surgical History / Comment(s): 08/17/21 surgery at [facility]-cervical or upper back for mass, 11/2020 CABG 4 vessel, PCI/stents in , bilateral iliac arthrectomy/stents, left foot wound debridements, bronchoscopy/lavage, bilateral breast biopsies, D&C, lumpectomy right breast 08/2021. Right mastectomy (11/26/21) Past Anesthesia/Blood Transfusion Reactions: Motion Sickness Additional Past Anesthesia/Blood Transfusion Reaction / Comment(s): No hx blood transfusion. Date of Last Stent Placement:: 2008 Past Psychological History: Anxiety, Depression Additional Psychological History / Comment(s): Pt's due to Covid beginning of August 2021. Smoking Status: Former smoker Past Alcohol Use History: Rare Additional Past Alcohol Use History / Comment(s): Pt started smoking in 1960 and quit May 2020. Past Drug Use History: None Reported Additional Drug Use History / Comment(s): CBD lotion. - Past Family History Father Family Medical History: No Reported History Mother Family Medical History: Cancer Additional Family Medical History / Comment(s): Breast and brain cancer. Medications and Allergies Home Medications Medication Instructions Recorded Confirmed Type Atorvastatin [Lipitor] 80 mg PO HS 08/02/20 01/04/22 History Metoprolol Tartrate [Lopressor] 50 mg PO BID #60 tab 12/05/20 01/04/22 Rx ALPRAZolam [Xanax] 0.25 mg PO BID PRN 07/18/21 01/04/22 History Gabapentin [Neurontin] 100 mg PO TID 07/18/21 01/04/22 History Escitalopram [Lexapro] 5 mg PO HS 08/18/21 01/04/22 History Aspirin [Adult Low Dose Aspirin EC] 81 mg PO DAILY 08/20/21 01/04/22 History Apixaban [Eliquis] 5 mg PO BID #0 08/22/21 01/04/22 Rx Albuterol Sulfate [Ventolin HFA] 1 puff INHALATION RT-Q4H PRN 09/13/21 01/04/22 History Furosemide [Lasix] 20 mg PO BID PRN 09/13/21 01/04/22 History Fluticasone/Umeclidin/Vilanter 1 puff INHALATION RT-DAILY PRN 11/01/21 01/04/22 History [Trelegy Ellipta 100-62.5-25] Baclofen 10 mg PO QID PRN 01/04/22 01/04/22 History Letrozole [Femara] 2.5 mg PO DAILY 01/04/22 01/04/22 History lisinopriL [Zestril] 2.5 mg PO DAILY 01/04/22 01/04/22 History Allergies Allergy/AdvReac Type Severity Reaction Status Date / Time sumatriptan [From Imitrex] AdvReac Chest Pain Verified 01/04/22 22:47 Physical Examination - Vital Signs Vital Signs: Vital Signs Temp Pulse Pulse Resp BP Pulse Ox 01/08/22 08:00 83 22 01/08/22 07:49 83 96 01/08/22 07:42 98.3 F 83 22 159/71 93 L 01/08/22 04:00 80 20 184/77 94 L 01/08/22 00:00 82 18 164/80 98 01/07/22 20:00 98.2 F 76 20 170/77 98 01/07/22 16:27 98.0 F 70 18 150/90 95 01/07/22 14:00 18 01/07/22 12:00 97.8 F 80 18 134/67 97 Intake and Output 01/07/22 01/08/22 01/08/22 22:59 06:59 14:59 Output Total 125 Balance -125 Output: Urine 125 Other: Voiding Method External Catheter External Catheter External Catheter # Voids 1 Weight 53.5 kg Patient is an elderly female, who appears in obvious respiratory distress, with labored breathing at 32/m. Patient is alert awake, appears encephalopathic, very tachypneic in moderate distress. Patient knows her name, her date of , stated "I am fine". Patient able to name objects like "finger, pen, eyeglasses". Limited speech was clear with no aphasia or dysarthria. Attention, concentration and fund of knowledge is limited. On cranial examination, pupils are round and reacting to light, visual howard could not be tested reliably because of patient's mental status. Her extraocular muscles are intact with no nystagmus. Face is symmetric, patient did not protrude her tongue. Palatal elevation and sensation cannot be asse ssed, hearing and shoulder shrug normal, facial sensations could not be assessed. On muscle strength testing, there is no pronator drift although patient brings her arms down equally bilaterally. No obvious flaccidity. Patient did not cooperate well. 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 Patient did not cooperate with examination of the proximal upper limbs. Patient did not cooperate for testing of the lower extremities. However when I gave her 10. Less with nailbed pressure of the toes, she would draw her foot equal bilaterally. Sensation to painful stimuli appears equal. Deep tendon reflexes are trace at the biceps, 0 brachioradialis, 2 at the knees 0 ankles and plantars are probably upgoing bilaterally. Cerebellar function could not be tested. Tone is mildly to moderately increased and bulk of muscles overall decreased. Gait not able to be checked. On general examination, there is no carotid bruit or murmur, S1-S2 audible. Abdomen is soft nontender. No organomegaly. Bowel sounds present. Chest has some crackles in the bases. Patient has positive peripheral edema. Her toes are purple bilaterally. Feet are cold. Results - Laboratory Findings CBC and BMP: 01/07/22 19:42 01/07/22 19:42 Abnormal Lab Findings: Abnormal Labs 01/04/22 01/04/22 01/04/22 19:54 19:54 19:54 RBC 3.60 L Hgb 9.1 L Hct 31.5 L MCHC 28.9 L RDW 17.8 H PT 12.8 H INR 1.2 H ABG pCO2 ABG pO2 ABG HCO3 ABG Total CO2 Potassium 3.3 L Chloride Carbon Dioxide BUN 19 H Glucose 126 H POC Glucose (mg/dL) AST 37 H Troponin I Total Protein 6.2 L Albumin 3.3 L 01/04/22 01/05/22 01/05/22 19:54 06:53 10:26 RBC Hgb Hct MCHC RDW PT INR ABG pCO2 ABG pO2 ABG HCO3 ABG Total CO2 Potassium Chloride Carbon Dioxide 31 H BUN Glucose 106 H POC Glucose (mg/dL) AST Troponin I 0.067 H* 2.830 H* Total Protein Albumin 01/05/22 01/06/22 01/07/22 15:16 06:25 09:41 RBC Hgb Hct MCHC RDW PT INR ABG pCO2 ABG pO2 ABG HCO3 ABG Total CO2 Potassium Chloride 97 L Carbon Dioxide 33 H BUN 18 H 19 H Glucose 104 H 110 H POC Glucose (mg/dL) AST Troponin I 2.920 H* Total Protein Albumin 01/07/22 01/07/22 01/07/22 19:08 19:20 19:42 RBC Hgb 10.5 L Hct MCHC 28.9 L RDW 17.9 H PT INR ABG pCO2 58 H ABG pO2 72 L ABG HCO3 34 H ABG Total CO2 36 H Potassium Chloride Carbon Dioxide BUN Glucose POC Glucose (mg/dL) 150 H AST Troponin I Total Protein Albumin 01/07/22 19:42 RBC Hgb Hct MCHC RDW PT INR ABG pCO2 ABG pO2 ABG HCO3 ABG Total CO2 Potassium Chloride Carbon Dioxide 37 H BUN 22 H Glucose 108 H POC Glucose (mg/dL) AST Troponin I Total Protein Albumin Assessment and Plan Assessment: * Altered mental status, likely due to toxic metabolic encephalopathy. This is most likely related to underlying cardiopulmonary dysfunction. Patient is in obvious respiratory distress, tachypneic, breathing at 32/m. Her limited neurological examination is nonfocal. * Acute non-STEMI * Congestive heart failure * History of CVA * Paroxysmal atrial fibrillation * CAD * COPD * Hypertension * Hyperlipidemia * Folate deficiency * History of breast cancer Plan: * Patient's altered mental status is most likely related to metabolic encephalopathy. Patient able to answer some simple questions appropriately, with no aphasia. Her examination although limited (due to mental status) is nonfocal. * Treatment of underlying cardiopulmonary process as per IM and other specialties. * 2-D echo revealed normal left ventricle size. Inferior septal hypokinesia and ejection fraction is about 45%. Mild to moderate MR. Moderately increased left atrial volume. Mildly increased left atrium area. * Carotid Doppler from 08/19/2021 showed [id number] atherosclerotic changes with no significant hemodynamic stenosis. * Continue Eliquis for stroke prevention related to atrial fibrillation. Patient also on aspirin 81 mg daily and Lipitor 80 mg. * Patient has history of folate deficiency, we will start folic acid 1 mg daily. * Neurology will follow clinically. Thank you for the consult.
--- NOTE | 2022-01-08 15:09 | P.CNPUL ---
History of Present Illness Consult date: 01/08/22 Requesting physician: Dov Erazo Reason for consult: dyspnea Chief complaint: Dyspnea History of present illness: 76-year-old female patient that was admitted thru the emergency department on 01/04/2022 for evaluation of chest pain, and shortness of breath. She felt like she couldn't catch her breath, and she was breathing really hard, and having palpitations. Has extensive medical history including paroxysmal atrial fibrillation on Eliquis, LV thrombus, TIA, coronary artery disease with history of stenting and three-vessel coronary artery bypass in November 2020 and the left atrial appendage clipping, chronic congestive heart failure with systolic dysfunction, ischemic cardiomyopathy, mitral valve prolapse with previous surgery, hypertension, hyperlipidemia, previous episode of pneumonia, COPD, peripheral vascular disease with previous bilateral iliac arthrectomy and stent placement, breast cancer with history of right mastectomy currently on Femara. Patient also has history of multiple sclerosis, and obstructive sleep apnea without CPAP on outpatient basis. Chest x-ray on admission showed cardiomegaly, blunting of the costophrenic angles more so on the left side, pulmonary rest or congestion consistent with congestive heart failure with pleural effusions. EKG showed A. fib with RVR. Lab evaluation showed a white blood cell, 7.9, hemoglobin is 9.1, INR is 1.2, potassium is 3.3, respiratory electrolytes were unremarkable, renal profile was within normal limits, lactic acid was 1.7, patient had troponin elevation of 0.067, 2.830, 2.9-0, and proBNP of 10,004 100. The COVID-19 influenza A and B were all negative. Echocardiogram showed improved EF at 45-50% compared previously documented EF of 25-30%. There was moderately increased left atrial volume, mild to moderate mitral regurgitation, there was inferobasal hypokinesia, no evidence of pericardial effusion. Patient was started on diuretics, she was placed on Cardizem infusion for rate control, and she was already on oral anticoagulation for history of paroxysmal atrial fibrillation. Patient was noted to have alteration of her mental status that was noted 3 days ago. Patient's breathing also got worse, more labored and diaphoretic. Patient was only able to say yes to every question which was a significant change from baseline. No seizures. No focal neurological deficit was noted. CT of the head from 01/07/2022 showed brain volume loss changes, chronic ischemic changes on chronic right occipital infarct. There was no acute process. CT of the brain CT was obtained from the same date on 01/07/2022 showed continued evolution of the right parietal infarct with encephalomalacia. No new areas of suspicious for acute subacute infarct, diffuse nonspecific white matter. Patient does have history of previous CVA from July 2021. She was seen in evaluation by neurology, and it was felt that her mental status was due to toxic metabolic encephalopathy. He was also diagnosed with acute non-ST elevated myocardial infarction. Today we were called to the bedside for evaluation of worsening shortness of breath, patient is awake, but is not able to answer any questions, she has obviously increased work of breathing, with accessory muscle use. At the time of our arrival to the bedside patient is having blood gas drawn, she is currently on 3 L of oxygen with pulse ox of 94%, she is afebrile, she remains in A. fib, chest x-ray this morning showing cardiomegaly, no evident pneumothorax or sizable pleural effusion, patchy densities at the left lung base, suspect some improvement in airspace disease. Yesterday patient had a blood gas that showed pO2 of 72, pCO2 of 58, and pH of 7.38 and this was done and FiO2 of 35%. Her last set of blood work from 01/07/2022 showed normal white count of 9.7, hemoglobin is 10.5, CO2 is 37, the rest of the electrolytes were within normal limits, B1 is 22, creatinine 0.99. Ammonia level is less than 9, LFTs were within normal limits. Patient has had no fever. Blood pressure is 149/79. Patient is having retractive respirations of the abdomen, and she will be placed on BiPAP support, with pending blood gases and transferred to the intensive care unit. Review of Systems All systems: negative Constitutional: Denies chills, Denies fever Eyes: denies blurred vision, denies pain Ears, nose, mouth and throat: Denies headache, Denies sore throat Cardiovascular: Denies chest pain, Denies shortness of breath Respiratory: Reports dyspnea, Denies cough Gastrointestinal: Denies abdominal pain, Denies diarrhea, Denies nausea, Denies vomiting Genitourinary: Denies dysuria, Denies hematuria Musculoskeletal: Denies myalgias Integumentary: Denies pruritus, Denies rash Neurological: Reports change in mentation, Denies numbness, Denies weakness Psychiatric: Denies anxiety, Denies depression Endocrine: Denies fatigue, Denies weight change Past Medical History Past Medical History: Atrial Fibrillation, Coronary Artery Disease (CAD), Cancer, Heart Failure, COPD, CVA/TIA, Hyperlipidemia, Hypertension, Mitral Valve Prolapse (MVP), Neurologic Disorder, Osteoarthritis (OA), Pneumonia, Skin Disorder, Sleep Apnea/CPAP/BIPAP, Vascular Disorder Additional Past Medical History / Comment(s): "Upper back non-cancerous mass removed 08/17/21 at [facility].". Multiple Sclerosis. PAD/chronic wounds left foot/lower leg, peripheral neuropathy. CVA Jul/Aug 2021. History of Any Multi-Drug Resistant Organisms: None Reported Past Surgical History: Appendectomy, Breast Surgery, Coronary Bypass/CABG, Heart Catheterization With Stent, Orthopedic Surgery, Tonsillectomy Additional Past Surgical History / Comment(s): 08/17/21 surgery at [facility]-cervical or upper back for mass, 11/2020 CABG 4 vessel, PCI/stents in , bilateral iliac arthrectomy/stents, left foot wound debridements, bronchoscopy/lavage, bilateral breast biopsies, D&C, lumpectomy right breast 08/2021. Right mastectomy (11/26/21) Past Anesthesia/Blood Transfusion Reactions: Motion Sickness Additional Past Anesthesia/Blood Transfusion Reaction / Comment(s): No hx blood transfusion. Date of Last Stent Placement:: 2008 Past Psychological History: Anxiety, Depression Additional Psychological History / Comment(s): Pt's due to Covid beginning of August 2021. Smoking Status: Former smoker Past Alcohol Use History: Rare Additional Past Alcohol Use History / Comment(s): Pt started smoking in 1960 and quit May 2020. Past Drug Use History: None Reported Additional Drug Use History / Comment(s): CBD lotion. - Past Family History Father Family Medical History: No Reported History Mother Family Medical History: Cancer Additional Family Medical History / Comment(s): Breast and brain cancer. Medications and Allergies Home Medications Medication Instructions Recorded Confirmed Type Atorvastatin [Lipitor] 80 mg PO HS 08/02/20 01/04/22 History Metoprolol Tartrate [Lopressor] 50 mg PO BID #60 tab 12/05/20 01/04/22 Rx ALPRAZolam [Xanax] 0.25 mg PO BID PRN 07/18/21 01/04/22 History Gabapentin [Neurontin] 100 mg PO TID 07/18/21 01/04/22 History Escitalopram [Lexapro] 5 mg PO HS 08/18/21 01/04/22 History Aspirin [Adult Low Dose Aspirin EC] 81 mg PO DAILY 08/20/21 01/04/22 History Apixaban [Eliquis] 5 mg PO BID #0 08/22/21 01/04/22 Rx Albuterol Sulfate [Ventolin HFA] 1 puff INHALATION RT-Q4H PRN 09/13/21 01/04/22 History Furosemide [Lasix] 20 mg PO BID PRN 09/13/21 01/04/22 History Fluticasone/Umeclidin/Vilanter 1 puff INHALATION RT-DAILY PRN 11/01/21 01/04/22 History [Trelegy Ellipta 100-62.5-25] Baclofen 10 mg PO QID PRN 01/04/22 01/04/22 History Letrozole [Femara] 2.5 mg PO DAILY 01/04/22 01/04/22 History lisinopriL [Zestril] 2.5 mg PO DAILY 01/04/22 01/04/22 History Allergies Allergy/AdvReac Type Severity Reaction Status Date / Time sumatriptan [From Imitrex] AdvReac Chest Pain Verified 01/04/22 22:47 Physical Exam Vitals: Vital Signs Temp Pulse Pulse Pulse Resp BP Pulse Ox 01/08/22 14:35 01/08/22 12:35 83 22 01/08/22 12:00 98.1 F 92 20 149/76 94 L 01/08/22 08:00 83 22 01/08/22 07:49 83 96 01/08/22 07:42 98.3 F 83 22 159/71 93 L 01/08/22 04:00 80 20 184/77 94 L 01/08/22 00:00 82 18 164/80 98 01/07/22 20:00 98.2 F 76 20 170/77 98 01/07/22 16:27 98.0 F 70 18 150/90 95 FiO2 01/08/22 14:35 40 01/08/22 12:35 01/08/22 12:00 01/08/22 08:00 01/08/22 07:49 01/08/22 07:42 01/08/22 04:00 01/08/22 00:00 01/07/22 20:00 01/07/22 16:27 Intake and Output 01/07/22 01/08/22 01/08/22 22:59 06:59 14:59 Output Total 125 Balance -125 Output: Urine 125 Other: Voiding Method External Catheter External Catheter External Catheter # Voids 1 Weight 53.5 kg GENERAL EXAM: Alert, but in respiratory distress, increased work of breathing, patient is not able to provide any verbal answers related to dyspnea, 76-year-old white female, currently on 3 L of oxygen, she is being placed on BiPAP support HEAD: Normocephalic/atraumatic. EYES: Normal reaction of pupils, equal size. Conjunctiva pink, sclera white. NOSE: Clear with pink turbinates. THROAT: No erythema or exudates. NECK: No masses, no JVD, no thyroid enlargement, no adenopathy. CHEST: No chest wall deformity. Symmetrical expansion. LUNGS: Equal air entry with no crackles, wheeze, rhonchi or dullness. CVS: Irregular rate and rhythm, normal S1 and S2, no gallops, no murmurs, no rubs ABDOMEN: Soft, nontender. No hepatosplenomegaly, normal bowel sounds, no guarding or rigidity. EXTREMITIES: No clubbing, no edema, no cyanosis, 2+ pulses and upper and lower extremities. MUSCULOSKELETAL: Muscle strength and tone normal. SPINE: No scoliosis or deformity SKIN: No rashes CENTRAL NERVOUS SYSTEM: Alert and oriented -1. No focal deficits, tone is normal in all 4 extremities. PSYCHIATRIC: Alert and oriented -1. Appropriate affect. Intact judgment and insight. Results - Laboratory Findings CBC and BMP: 01/07/22 19:42 01/07/22 19:42 ABG ABG pH 7.38 (7.35-7.45) 01/07/22 19:20 ABG pCO2 58 mmHg (35-45) H 01/07/22 19:20 ABG pO2 72 mmHg (83-108) L 01/07/22 19:20 ABG O2 Saturation 94.1 % (94-97) 01/07/22 19:20 PT/INR, D-dimer PT 12.8 sec (9.0-12.0) H 01/04/22 19:54 INR 1.2 (<1.2) H 01/04/22 19:54 Abnormal lab findings: Abnormal Labs 01/04/22 01/04/22 01/04/22 19:54 19:54 19:54 RBC 3.60 L Hgb 9.1 L Hct 31.5 L MCHC 28.9 L RDW 17.8 H PT 12.8 H INR 1.2 H ABG pCO2 ABG pO2 ABG HCO3 ABG Total CO2 Potassium 3.3 L Chloride Carbon Dioxide BUN 19 H Glucose 126 H POC Glucose (mg/dL) AST 37 H Troponin I Total Protein 6.2 L Albumin 3.3 L 01/04/22 01/05/22 01/05/22 19:54 06:53 10:26 RBC Hgb Hct MCHC RDW PT INR ABG pCO2 ABG pO2 ABG HCO3 ABG Total CO2 Potassium Chloride Carbon Dioxide 31 H BUN Glucose 106 H POC Glucose (mg/dL) AST Troponin I 0.067 H* 2.830 H* Total Protein Albumin 01/05/22 01/06/22 01/07/22 15:16 06:25 09:41 RBC Hgb Hct MCHC RDW PT INR ABG pCO2 ABG pO2 ABG HCO3 ABG Total CO2 Potassium Chloride 97 L Carbon Dioxide 33 H BUN 18 H 19 H Glucose 104 H 110 H POC Glucose (mg/dL) AST Troponin I 2.920 H* Total Protein Albumin 01/07/22 01/07/22 01/07/22 19:08 19:20 19:42 RBC Hgb 10.5 L Hct MCHC 28.9 L RDW 17.9 H PT INR ABG pCO2 58 H ABG pO2 72 L ABG HCO3 34 H ABG Total CO2 36 H Potassium Chloride Carbon Dioxide BUN Glucose POC Glucose (mg/dL) 150 H AST Troponin I Total Protein Albumin 01/07/22 19:42 RBC Hgb Hct MCHC RDW PT INR ABG pCO2 ABG pO2 ABG HCO3 ABG Total CO2 Potassium Chloride Carbon Dioxide 37 H BUN 22 H Glucose 108 H POC Glucose (mg/dL) AST Troponin I Total Protein Albumin - Diagnostic Findings Chest x-ray: report reviewed, image reviewed Additional studies: Brain CT, EKG, echocardiogram reviewed Assessment and Plan Plan: Assessment: #1. Acute hypoxic and likely hypercapnic respiratory failure related to acute exacerbation of CHF with systolic dysfunction and acute exacerbation of COPD, worsened, and patient started experiencing altered mental status, worsening work of breathing, and was placed on BiPAP support and transferred to the unit on #2. Acute non-ST elevated myocardial infarction #3. Altered mental status, patient was evaluated by neurology who feels that this is due to toxic metabolic encephalopathy #4. Previous history of CVA #5. Paroxysmal atrial fibrillation on [place] #6. A. fib with RVR, currently better controlled #7. History of COPD #8. Hypertension #9. Hyperlipidemia #10. History of breast cancer with right mastectomy #11. Coronary artery disease with previous stenting and three-vessel coronary artery bypass grafting in November 2020 #12. Mild to moderate mitral regurgitation #13. Ischemic cardiomyopathy, most recent EF shows improvement, and was at 45% #14. Chronic and ongoing history of smoking Plan: We'll place the patient on BiPAP support Blood gases pending Transfer the patient to the intensive care unit *Symbicort Continue breathing treatments Start IV Solu-Medrol Patient stated that she does not want life support, or aggressive resuscitation We will verify the CODE STATUS with the family In the meantime we'll continue supportive treatment in the intensive care unit I have personally seen and examined the patient, performed the documentation and the assessment and plan as written. Number of minutes spent on the visit: 15 Time with Patient: Greater than 30
[2022-01-08 15:22] LABS: Glucose,Whole Blood 100 mg/dL (70-110)
[2022-01-08] MEDS: methylPREDNISolone SOD SUCCI 40 MG/ML 1 ML VIAL IV SCH (15:33)
[2022-01-08] MEDS: FOLIC ACID 1 MG TAB PO SCH (15:35)
[2022-01-08 15:38] LABS: ABG Base Excess 8.1 mmol/L; ABG HCO3 30 mmol/L (21-25); ABG PCO2 35 mmHg (35-45); ABG PH 7.55 (7.35-7.45); ABG PO2 144 mmHg (83-108); ABG TCO2 32 mmol/L (19-24)
[2022-01-08] MEDS ORDERED: ALPRAZolam 0.25 MG TAB PO PRN (15:53)
[2022-01-08] MEDS: SODIUM CHLORIDE 0.9% 1,000 ML IV SCH (16:12)
[2022-01-08] MEDS: LORazepam 2 MG/ML INJ IV PRN ×2 (18:12→21:23)
[2022-01-08] MEDS: ATORVASTATIN 80 MG TAB PO SCH (19:56)
[2022-01-08] MEDS: SYMBICORT 160-4.5 MCG INHALER INHALATION SCH (20:04)
[2022-01-08 21:31] LABS: Anisocytosis Slight; Basophils # (A) 0.1 k/uL (0-0.2); Basophils % (A) 0 %; Eosinophils # (A) 0.2 k/uL (0-0.7); Eosinophils % (A) 1 %; HCT 37.6 % (34.0-46.0); HGB 10.6 gm/dL (11.4-16.0); Hypochromasia Marked; Lymphocytes # (A) 0.5 k/uL (1.0-4.8); Lymphocytes % (A) 4 %; MCH 24.2 pg (25.0-35.0); MCHC 28.1 g/dL (31.0-37.0); MCV 86.1 fL (80.0-100.0); Mean Platelet Volume 8.4; Monocytes # (A) 0.4 k/uL (0-1.0); Monocytes % (A) 3 %; Neutrophils # (A) 13.3 k/uL (1.3-7.7); Neutrophils % (A) 92 %; Platelet Count 287 k/uL (150-450); Poikilocytosis Slight; RBC 4.37 m/uL (3.80-5.40); RDW 17.6 % (11.5-15.5); WBC 14.4 k/uL (3.8-10.6)
[2022-01-08 21:40] LABS: Calcium 9.2 mg/dL (8.4-10.2); Potassium 3.9 mmol/L (3.5-5.1)
[2022-01-08] MEDS: ESCITALOPRAM 5 MG TAB PO SCH (22:10)
[2022-01-08] MEDS ORDERED: hydrALAZINE HCL 20 MG/ML 1 ML VIAL IVP PRN (22:18)
[2022-01-08] MEDS ORDERED: DEXMEDETOMIDINE/0.9% NACL(PMX) 400 MCG in EMPTY BAG 1 BAG IV SCH (23:30)
[2022-01-08 23:44] LABS: Amorphous Sediment,Urine Occasional /hpf; Appearance,Urine Cloudy (Clear); Bacteria,Urine Occasional /hpf; Bilirubin,Urine Negative (Negative); Blood,Urine Moderate (Negative); Color,Urine Yellow; Glucose,Urine (UA) Negative (Negative); Hyaline Casts,Urine 59 /lpf (0-2); Ketones,Urine 1+ (Negative); Leukocyte Esterase,Urine Large (Negative); Mucus,Urine Occasional /hpf; Nitrite,Urine Negative (Negative); PH, Urine 5.5 (5.0-8.0); Protein,Urine Trace (Negative); RBC,Urine 147 /hpf (0-5); Specific Gravity,Urine 1.018 (1.001-1.035); Squamous Epithelial Cell,Urine 1 /hpf (0-4); Urobilinogen,Urine <2.0 mg/dL (<2.0); WBC,Urine 149 /hpf (0-5)
[2022-01-08 23:47] LABS: Glucose,Whole Blood 155 mg/dL (70-110)
[2022-01-09] MEDS: methylPREDNISolone SOD SUCCI 40 MG/ML 1 ML VIAL IV SCH ×4 (00:16→23:13)
[2022-01-09] MEDS: INSULIN ASPART (NovoLOG) 100 UNIT/ML VIAL SQ SCH ×5 (00:17→23:28)
[2022-01-09] MEDS: IPRATROPIUM-ALBUTEROL 3 ML NEB INHALATION PRN (00:38)
[2022-01-09 05:58] LABS: Glucose,Whole Blood 120 mg/dL (70-110)
[2022-01-09 07:25] LABS: Calcium 8.9 mg/dL (8.4-10.2); Potassium 3.5 mmol/L (3.5-5.1)
[2022-01-09 07:38] LABS: Anisocytosis Slight; Basophils % (A) 0 %; Eosinophils % (A) 0 %; HCT 33.5 % (34.0-46.0); HGB 9.8 gm/dL (11.4-16.0); Hypochromasia Marked; Lymphocytes # (A) 0.6 k/uL (1.0-4.8); Lymphocytes % (A) 5 %; MCH 25.1 pg (25.0-35.0); MCHC 29.2 g/dL (31.0-37.0); MCV 86.1 fL (80.0-100.0); Mean Platelet Volume 8.1; Monocytes # (A) 0.6 k/uL (0-1.0); Monocytes % (A) 5 %; Neutrophils # (A) 10.1 k/uL (1.3-7.7); Neutrophils % (A) 89 %; Platelet Count 224 k/uL (150-450); RBC 3.89 m/uL (3.80-5.40); RDW 17.7 % (11.5-15.5); WBC 11.3 k/uL (3.8-10.6)
--- NOTE | 2022-01-09 08:18 | XR ---
EXAMINATION TYPE: XR chest 1V portable DATE OF EXAM: 01/09/2022 COMPARISON: Chest x-ray 01/08/2022 HISTORY: Congestive heart failure TECHNIQUE: Single frontal view of the chest is obtained. FINDINGS: There has been interval near opacification of the left hemithorax. Patient is rotated, the re is volume loss with tracheal deviation suspected. No evident pneumothorax. Postop changes are agai n seen. IMPRESSION: Findings may represent atelectasis, difficult to exclude associated effusion, pneumonia
[2022-01-09] MEDS ORDERED: propofoL 100 ML IV ONE (08:54)
[2022-01-09] MEDS ORDERED: SUCCINYLCHOLINE CHLORIDE VIAL 200 MG/10 ML VIAL IV ONE (08:54)
[2022-01-09] MEDS ORDERED: FUROSEMIDE 20 MG TAB PO SCH (09:00)
[2022-01-09] MEDS: SYMBICORT 160-4.5 MCG INHALER INHALATION SCH ×2 (09:30→20:07)
[2022-01-09] MEDS: IPRATROPIUM 0.5 MG/2.5 ML NEBU INHALATION SCH ×4 (09:30→19:46)
--- NOTE | 2022-01-09 10:18 | XR ---
EXAMINATION TYPE: XR chest 1V confirm [facility] DATE OF EXAM: 01/09/2022 COMPARISON: Chest x-ray 01/09/2022 at earlier time HISTORY: Post intubation, central line placement TECHNIQUE: frontal view of the chest is obtained on 2 images. FINDINGS: There is been interval placement of a right jugular central venous catheter is coursing to the region overlying the superior vena cava. There is some improvement in aeration in the left upper lobe, persistent abnormal density present in the lower two thirds of the left chest however. Endotra cheal tube and NG tube have been placed in the interval, NG tube shows the distal tip near the level of the gastroesophageal junction, side port is proximal. Endotracheal tube is overlying the tracheal air column in appropriate position. No evident pneumothorax. IMPRESSION: No evident comp occasions status post central venous catheter placement. Some interval i mproved aeration in the left upper lobe. NG tube positioned as described.
[2022-01-09] MEDS: ASPIRIN 81 MG PO SCH (10:50)
[2022-01-09] MEDS: BACLOFEN 10 MG TAB PO SCH ×3 (10:50→21:19)
[2022-01-09] MEDS: APIXABAN 5 MG TAB PO SCH ×2 (10:50→20:04)
[2022-01-09] MEDS: GABAPENTIN 100 MG CAP PO SCH ×3 (10:51→21:20)
[2022-01-09] MEDS: FOLIC ACID 1 MG TAB PO SCH (10:51)
[2022-01-09] MEDS: LETROZOLE 2.5 MG TAB PO SCH (10:51)
[2022-01-09 10:52] LABS: ABG Base Excess 8.9 mmol/L; ABG HCO3 32 mmol/L (21-25); ABG Oxygen Saturation 96.3 % (94-97); ABG PCO2 43 mmHg (35-45); ABG PH 7.48 (7.35-7.45); ABG PO2 74 mmHg (83-108); ABG TCO2 34 mmol/L (19-24)
[2022-01-09] MEDS: METOPROLOL TARTRATE 25 MG TAB PO SCH ×2 (10:52→20:04)
[2022-01-09 10:55] LABS: Allen Test Performed? no
[2022-01-09] MEDS: PIPERACILLIN-TAZOBACTAM 3.375 GM in SODIUM CHLORIDE 0.9% 100 ML IVPB SCH ×2 (10:59→18:15)
[2022-01-09] MEDS: CHLORHEXIDINE GLUCONATE 15 ML CUP MUCOUS MEM SCH ×2 (11:24→20:04)
[2022-01-09] MEDS: PANTOPRAZOLE 40 MG/10 ML VIAL IVP SCH (11:26)
--- NOTE | 2022-01-09 11:30 | PN ---
PROGRESS NOTE Sharmila is a 76-year-old lady with history of paroxysmal atrial fibrillation, coronary artery disease, status post prior bypass surgery, hypertension, dyslipidemia, who was admitted to the hospital with a combination of COPD and CHF exacerbations, was on the floor with worsening shortness of breath and yesterday actually remained slightly confused. Due to increasing oxygen needs, she was transferred to ICU where she underwent a bronchoscopy and subsequently had to be intubated and placed on vent. I am seeing the patient in the ICU. She remains in sinus rhythm, hemodynamically stable. EXAM: Heart rate is 65 beats a minute, and blood pressure is 120/70, respiratory is 18. Chest exam reveals diminished air entry bilaterally. Heart exam reveals first and second heart sounds. Systolic murmur at the apex. Abdomen: Soft. Exam of extremities did not reveal any edema. LABS: Labs show a hemoglobin of 9.8, platelet count is 224. Potassium is 3.5. Creatinine is 0.76. MEDICATIONS: The patient is on Eliquis, Lipitor, Zestril and Lopressor. ASSESSMENT: 1. Paroxysmal atrial fibrillation. 2. Acute exacerbation of chronic systolic heart failure. 3. Chronic obstructive pulmonary disease. 4. Vent requiring respiratory failure. PLAN: Continue with current medications. MMODL / IJN: [id number] /
[2022-01-09 11:49] LABS: Glucose,Whole Blood 128 mg/dL (70-110)
--- NOTE | 2022-01-09 14:07 | P.PN ---
Subjective Progress Note Date: 01/09/22 Principal diagnosis: Acute hypoxic and hypercapnic respiratory failure, multifactorial secondary to COPD exacerbation and systolic dysfunction heart failure. 76-year-old female patient that was admitted thru the emergency department on 01/04/2022 for evaluation of chest pain, and shortness of breath. She felt like she couldn't catch her breath, and she was breathing really hard, and having palpitations. Has extensive medical history including paroxysmal atrial fibrillation on Eliquis, LV thrombus, TIA, coronary artery disease with history of stenting and three-vessel coronary artery bypass in November 2020 and the left atrial appendage clipping, chronic congestive heart failure with systolic dysfunction, ischemic cardiomyopathy, mitral valve prolapse with previous surgery, hypertension, hyperlipidemia, previous episode of pneumonia, COPD, peripheral vascular disease with previous bilateral iliac arthrectomy and stent placement, breast cancer with history of right mastectomy currently on Femara. Patient also has history of multiple sclerosis, and obstructive sleep apnea without CPAP on outpatient basis. Chest x-ray on admission showed cardiomegaly, blunting of the costophrenic angles more so on the left side, pulmonary rest or congestion consistent with congestive heart failure with pleural effusions. EKG showed A. fib with RVR. Lab evaluation showed a white blood cell, 7.9, hemoglobin is 9.1, INR is 1.2, potassium is 3.3, respiratory electrolytes were unremarkable, renal profile was within normal limits, lactic acid was 1.7, patient had troponin elevation of 0.067, 2.830, 2.9-0, and proBNP of 10,004 100. The COVID-19 influenza A and B were all negative. Echocardiogram showed improved EF at 45-50% compared previously documented EF of 25-30%. There was moderately increased left atrial volume, mild to moderate mitral regurgitation, there was inferobasal hypokinesia, no evidence of pericardial effusion. Patient was started on diuretics, she was placed on Cardizem infusion for rate control, and she was already on oral anticoagulation for history of paroxysmal atrial fibrillation. Patient was noted to have alteration of her mental status that was noted 3 days ago. Patient's breathing also got worse, more labored and diaphoretic. Patient was only able to say yes to every question which was a significant change from baseline. No seizures. No focal neurological deficit was noted. CT of the head from 01/07/2022 showed brain volume loss changes, chronic ischemic changes on chronic right occipital infarct. There was no acute process. CT of the brain CT was obtained from the same date on 01/07/2022 showed continued evolution of the right parietal infarct with encephalomalacia. No new areas of suspicious for acute subacute infarct, diffuse nonspecific white matter. Patient does have history of previous CVA from July 2021. She was seen in evaluation by neurology, and it was felt that her mental status was due to toxic metabolic encephalopathy. He was also diagnosed with acute non-ST elevated myocardial infarction. Today we were called to the bedside for evaluation of worsening shortness of breath, patient is awake, but is not able to answer any questions, she has obviously increased work of breathing, with accessory muscle use. At the time of our arrival to the bedside patient is having blood gas drawn, she is currently on 3 L of oxygen with pulse ox of 94%, she is afebrile, she remains in A. fib, chest x-ray this morning showing cardiomegaly, no evident pneumothorax or sizable pleural effusion, patchy densi ties at the left lung base, suspect some improvement in airspace disease. Yesterday patient had a blood gas that showed pO2 of 72, pCO2 of 58, and pH of 7.38 and this was done and FiO2 of 35%. Her last set of blood work from 01/07/2022 showed normal white count of 9.7, hemoglobin is 10.5, CO2 is 37, the rest of the electrolytes were within normal limits, B1 is 22, creatinine 0.99. Ammonia level is less than 9, LFTs were within normal limits. Patient has had no fever. Blood pressure is 149/79. Patient is having retractive respirations of the abdomen, and she will be placed on BiPAP support, with pending blood gases and transferred to the intensive care unit. Patient was reevaluated today on 01/09/2022, patient is on BiPAP, she is also on Precedex as she was getting extremely agitated last night. However the patient had developed apparently complete collapse of the left lung, and obviously based on the chest x-ray, the patient has mucous plugging involving the left mainstem bronchus. Indeed the patient underwent bronchoscopy while the patient was intubated, and revealed evidence of significant mucous plugs in the left mainstem bronchus,. His secretions, these were suctioned in the left lung was lavaged. Kept on mechanical ventilation to the address and she may need another bronchoscopy in the next 24 hours. She is now on mechanical ventilation assist control rate 24th of volume 300 FiO2 on the percent and PEEP of 5. He is also on propofol drip and IV fluid 0.9 normal saline at 50 mL per hour. Chest x-ray showed excellent improvement over a bronchoscopy and lavage of the left lung. 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 Hence ENT was consulted, consult is pending. Labs today showed W set of 11.3 hemoglobin 9.8. ABG post intubation on 50% showed a pO2 of 74 pCO2 43 pH of 7.48. Basic metabolic profile is normal renal profile is normal. Objective - Vital Signs Vital signs: Vital Signs Temp 98.1 F 01/09/22 04:00 Pulse 65 01/09/22 06:00 Resp 18 01/09/22 06:00 BP 124/57 01/09/22 06:00 Pulse Ox 94 L 01/09/22 06:00 FiO2 50 01/09/22 10:50 Intake & Output 01/08/22 01/09/22 01/09/22 18:59 06:59 18:59 Intake Total 150 605.573 Output Total 990 445 Balance -840 160.573 Weight 48.7 kg Intake: Intake, IV Titration 150 605.573 Amount Dexmedetomidine/0.9% NaCl 5.573 (Pmx) 400 mcg In Empty Bag 1 bag @ 0.2 MCG/KG/HR 2.675 mls/hr IV .Q24H MARY ANNE Rx#:[id number] Sodium Chloride 0.9% 1, 150 600 000 ml @ 50 mls/hr IV . Q20H MARY ANNE Rx#:[id number] Output: Urine 990 445 Uretheral (Tadeo) 900 Other: Voiding Method Indwelling Catheter Indwelling Catheter - Exam Physical Exam: Revealed a 76-year-old female on BiPAP, in mild respiratory distress. On Precedex. Head: Atraumatic, normocephalic. HEENT:[Neck is supple.] [No neck masses.] [No thyromegaly.] [No JVD.] Chest: [Extremely diminished breath sounds on the left side, right-sided clear. Cardiac Exam: [Normal S1 and S2, no S3 gallop, no murmur.] Abdomen: [Soft, nontender, no megaly, no rebound, no guarding, normal bowel sounds.] Extremities: [No clubbing, no edema, no cyanosis.] Neurological Exam: [No focal neurologic deficit.] Skin: No rashes - Labs CBC & Chem 7: 01/09/22 06:54 01/09/22 06:54 Labs: Abnormal Lab Results - Last 24 Hours (Table) 01/08/22 01/08/22 01/08/22 Range/Units 14:24 14:24 15:37 WBC (3.8-10.6) k/uL Hgb (11.4-16.0) gm/dL Hct (34.0-46.0) % MCH (25.0-35.0) pg MCHC (31.0-37.0) g/dL RDW (11.5-15.5) % Neutrophils # (1.3-7.7) k/uL Lymphocytes # (1.0-4.8) k/uL D-Dimer 2.19 H (<0.60) mg/L FEU ABG pH 7.55 H (7.35-7.45) ABG pO2 144 H (83-108) mmHg ABG HCO3 30 H (21-25) mmol/L ABG Total CO2 32 H (19-24) mmol/L ABG O2 Saturation 100.0 H (94-97) % BUN (7-17) mg/dL Glucose (74-99) mg/dL POC Glucose (mg/dL) (70-110) mg/dL Troponin I 0.503 H* (0.000-0.034) ng/mL Urine Appearance (Clear) Urine Protein (Negative) Urine Ketones (Negative) Urine Blood (Negative) Ur Leukocyte Esterase (Negative) Urine RBC (0-5) /hpf Urine WBC (0-5) /hpf Urine WBC Clumps (None) /hpf Amorphous Sediment (None) /hpf Urine Bacteria (None) /hpf Hyaline Casts (0-2) /lpf Urine Mucus (None) /hpf 01/08/22 01/08/22 01/08/22 Range/Units 21:23 21:23 23:17 WBC 14.4 H (3.8-10.6) k/uL Hgb 10.6 L (11.4-16.0) gm/dL Hct (34.0-46.0) % MCH 24.2 L (25.0-35.0) pg MCHC 28.1 L (31.0-37.0) g/dL RDW 17.6 H (11.5-15.5) % Neutrophils # 13.3 H (1.3-7.7) k/uL Lymphocytes # 0.5 L (1.0-4.8) k/uL D-Dimer (<0.60) mg/L FEU ABG pH (7.35-7.45) ABG pO2 (83-108) mmHg ABG HCO3 (21-25) mmol/L ABG Total CO2 (19-24) mmol/L ABG O2 Saturation (94-97) % BUN 31 H (7-17) mg/dL Glucose 128 H (74-99) mg/dL POC Glucose (mg/dL) (70-110) mg/dL Troponin I (0.000-0.034) ng/mL Urine Appearance Cloudy H (Clear) Urine Protein Trace H (Negative) Urine Ketones 1+ H (Negative) Urine Blood Moderate H (Negative) Ur Leukocyte Esterase Large H (Negative) Urine RBC 147 H (0-5) /hpf Urine WBC 149 H (0-5) /hpf Urine WBC Clumps Many H (None) /hpf Amorphous Sediment Occasional H (None) /hpf Urine Bacteria Occasional H (None) /hpf Hyaline Casts 59 H (0-2) /lpf Urine Mucus Occasional H (None) /hpf 01/08/22 01/09/22 01/09/22 Range/Units 23:46 05:57 06:54 WBC 11.3 H (3.8-10.6) k/uL Hgb 9.8 L (11.4-16.0) gm/dL Hct 33.5 L (34.0-46.0) % MCH (25.0-35.0) pg MCHC 29.2 L (31.0-37.0) g/dL RDW 17.7 H (11.5-15.5) % Neutrophils # 10.1 H (1.3-7.7) k/uL Lymphocytes # 0.6 L (1.0-4.8) k/uL D-Dimer (<0.60) mg/L FEU ABG pH (7.35-7.45) ABG pO2 (83-108) mmHg ABG HCO3 (21-25) mmol/L ABG Total CO2 (19-24) mmol/L ABG O2 Saturation (94-97) % BUN (7-17) mg/dL Glucose (74-99) mg/dL POC Glucose (mg/dL) 155 H 120 H (70-110) mg/dL Troponin I (0.000-0.034) ng/mL Urine Appearance (Clear) Urine Protein (Negative) Urine Ketones (Negative) Urine Blood (Negative) Ur Leukocyte Esterase (Negative) Urine RBC (0-5) /hpf Urine WBC (0-5) /hpf Urine WBC Clumps (None) /hpf Amorphous Sediment (None) /hpf Urine Bacteria (None) /hpf Hyaline Casts (0-2) /lpf Urine Mucus (None) /hpf 01/09/22 01/09/22 01/09/22 Range/Units 06:54 10:50 11:48 WBC (3.8-10.6) k/uL Hgb (11.4-16.0) gm/dL Hct (34.0-46.0) % MCH (25.0-35.0) pg MCHC (31.0-37.0) g/dL RDW (11.5-15.5) % Neutrophils # (1.3-7.7) k/uL Lymphocytes # (1.0-4.8) k/uL D-Dimer (<0.60) mg/L FEU ABG pH 7.48 H (7.35-7.45) ABG pO2 74 L (83-108) mmHg ABG HCO3 32 H (21-25) mmol/L ABG Total CO2 34 H (19-24) mmol/L ABG O2 Saturation (94-97) % BUN 32 H (7-17) mg/dL Glucose 122 H (74-99) mg/dL POC Glucose (mg/dL) 128 H (70-110) mg/dL Troponin I (0.000-0.034) ng/mL Urine Appearance (Clear) Urine Protein (Negative) Urine Ketones (Negative) Urine Blood (Negative) Ur Leukocyte Esterase (Negative) Urine RBC (0-5) /hpf Urine WBC (0-5) /hpf Urine WBC Clumps (None) /hpf Amorphous Sediment (None) /hpf Urine Bacteria (None) /hpf Hyaline Casts (0-2) /lpf Urine Mucus (None) /hpf Microbiology - Last 24 Hours (Table) 01/08/22 23:17 Urine Culture - Preliminary Urine,Voided Assessment and Plan Assessment: Impression: Acute hypoxic and hypercapnic respiratory failure secondary to acute exacerbation of COPD, acute systolic congestive heart failure, and now mucous plugging involving the left mainstem bronchus with complete collapse of the left lung. Acute non-ST elevation myocardial infarction Acute metabolic encephalopathy History of CVA Paroxysmal atrial fibrillation History of severe underlying COPD Benign essential hypertension History of right breast cancer with right mastectomy Coronary artery disease and previous stenting and three-vessel CABG in November 2020 Mitral valve disease with mild to moderate mitral regurgitation Ischemic cardiomyopathy and LV dysfunction and ejection fraction of 45% Ongoing tobacco dependence syndrome. Status post bronchoscopy and lavage as well as extraction of mucous plugs in the left mainstem bronchus however the patient required intubation and mechanical ventilation. Focal cord tumor noted during intubation, needs to have further evaluation by ENT Recommendation: Continue ventilatory support Continue bronchodilators Start antibiotics Discussed and explained to her daughter today over the phone her need for bronchoscopy and intubation, and will update the daughter later today about her overall status and findings from the bronchoscopy. ENT consultation for evaluation of focal cord tumor noted during intubation. Prognosis is extremely poor and guarded, Patient is critically ill. Critical care time is over 30 minutes not including the time spent on procedures today Time with Patient: Greater than 30
--- NOTE | 2022-01-09 14:19 | P.PN ---
Subjective Progress Note Date: 01/09/22 Patient is a pleasant 46-year-old female came in with compensative shortness of breath and orthopnea, patient does have history of congestive heart failure EF of around 25-30% in the past patient has ischemic cardiomyopathy had heart attacks in the past and CABG in the past. Patient is found to have elevated BNP of 10,000 and the patient the chest x-ray is consistent with congestive heart failure with bilateral pleural effusions and primary congestion. Patient the quit smoking many months ago started smoking again last July. Chest x-ray did not show any pneumonia patient is comparing of coffee per day sputum production. had the atrial fibrillation with rapid ventricular rate on admission was on Cardizem uses metoprolol Cardizem is being this can urine patient's metoprolol dose will be increased cardiology was consulted. 01/06/2022 Patient evaluated today resting in bed. Overall she is feeling better. She continues on oxygen via nasal cannula 2-3 L, oxygen saturation is 99% and this can be weaned off probably. She has been started on eliquis. Metoprolol has been increased to 75 mg PO BID and she is now in sinus rhythm. She uses trelegy inhaler at home which is not stocked here for this reason she is on symbicort. Echocardiogram has been completed showing EF of 45% with inferobasal hypokinesia, there is mild to moderate mitral regurgitation. She continues on IV lasix BID, has been down -1.4 Liters in the last 24 hours. Labs today showing sodium 139, potassium 4.2, BUN 18, creatinine 0.86, magnesium 1.6. Cardiology is recommending cardiac cath when she is medically stable. 01/07/2022 Patient elevated today resting in bed, she is alert 1 which is a change in mental status. 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 Brain CT without contrast was completed today which shows no hemorrhage and no acute stroke. Continue to monitor neuro status will start patient on a small dose of Seroquel the evening for some possible acute hospital delirium. Patient is on Lexapro and accommodation can prolong QT interval which was reviewed and her QTC is showing 385 on EKG. Labs show serum sodium 139, potassium 3.7, chloride 97, CO2 33, BUN 19, creatinine 0.91. Blood pressure today 134/67. IV lasix decreased to daily. 01/08/2022 Patient evaluated today and her mentation has improved slighty she is alert x 2 now. She underwent repeat brain CT 01/07/2022 in the evening redemonstrating right parietal infarct with encephalomalacia, however, this CT reports continued evolution. No new areas for acute/subacute infarct. There is nonspecific white matter changes. Patient to be evaluated today by neurology. She is afebrile, heart rate 83, blood pressure 159/71, 96% on 3L Nasal cannula, she was dyspneic today on exam, chest xray was completed showing some basilar atelectasis. Labs today showing sodium 140, potassium 4.2, CO2 increased up to 37, ABG's were ordered last night showing PO2 of 72, HCO3 34, total CO2 36, pCO2 58. She has been transitioned to oral lasix today. 01/09/2022 Patient was upgraded to intensive care unit and placed on BiPAP yesterday afternoon, she was started on precedex gtt through out the night for acute agitation. Repeat ABGs were completed showing pH 7.55, pCO2 35, pO2 144, HCO3 30, total CO2 32, oxygen saturation 100%. Repeat troponin level showing 0.503 which is trending down, d-dimer was completed at 2.19. Patient had a chest xray completed this morning showing opacification of the left lung suggesting comple te collapse of the left lung with suspected mucous plug or obstruction. 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 ENT was consulted for this. Bronchoscopy per reports showed mucous plugging in the left mainstream bronchus which was extracted and Patient is now on mechanical ventilator with FiO2 of 50%. Repeat chest xray post bronchoscopy shows improved aeration of the left upper lobe with persistent abnormal density in the lower 2/3 of the chest. Labs today showing white count 11.3, hgb 9.8, sodium 142, potassium 3.5, BUN 7, creatinine 3.2. Glucose in the 120s. Urinalysis showing cloudy urine with trace protein, mo derate blood, ketones, large leukocyte esterase, WC 149, many white blood cell clumps, high hyaline casts. Urine culture is pending. She has been started on IV zosyn empirically, as well as IV solumedrol 40 mg Q8h, symbicort, duonebs. Lasix is on hold and she is receiving normal saline at 50 mLs per hour. Precedex has been discontinued. She is being followed by neurology, pulmonary powder line repairer, an d cardiology services. Unable to complete full review of systems as patient is intubated All inpatient medications were reviewed and appropriate changes in these medications as dictated in the interval history and assessment and plan. PHYSICAL EXAMINATION: GENERAL: The patient is alert and oriented x2, not in any acute distress. Well developed, well nourished. HEENT: Pupils are round and equally reacting to light. EOMI. No scleral icterus. No conjunctival pallor. Normocephalic, atraumatic. No pharyngeal erythema. No thyromegaly. CARDIOVASCULAR: S1 and S2 present. No murmurs, rubs, or gallops. Elevated JVD PULMONARY: Lungs are clear today, she is dyspneic. ABDOMEN: Soft, nontender, nondistended, normoactive bowel sounds. No palpable organomegaly. MUSCULOSKELETAL: No joint swelling or deformity. EXTREMITIES: No cyanosis, clubbing, does have pedal edema NEUROLOGICAL: Alert x 2 SKIN: No rashes. Assessment and plan -Acute hypoxic and hypercapnic Respiratory Failure patient is on mechanical ventilator being monitored in the intensive care unit with 50% FiO2. She is status post bronchoscopy which reveals mucous plugging of left mainstem bronchus and also complete collapse of the left lung. Culture and cytology are pending. She is on antibiotics empirically. 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 fib does take Eliquis for anticoagulation metoprolol dose will be increased discontinue Cardizem and patient is now in sinus rhythm. -Elevated troponins, likely NSTEMI per cardiology will most likely require cardiac cath when medically sable -COPD with acute exacerbation patient was started on inhaled steroids, she is maintained on trelegy outpatient, IV solumedrol has been added today. -Altered mental status with repeat brain CT showing continued evolution of right parietal infarct with encephalomalacia, she will be evaluated by neurology today. Mentation is slightly improved today. -Depression -Coronary artery disease status post prior stenting and 3 vessel CABG -Peripheral neuropathy -Hyperlipidemia -History of cerebral vascular accident in the past without any residual weakness -Mitral valve prolapse -History of LV thrombus -Hypertension -History of right breast cancer with mastectomy she is maintained on femara daily GI Prophylaxis: DVT prophylaxis: On Eliquis code status: mechanical ventilator only Plan Patient will continue to be monitored in the intensive care unit on mechanical ventilator. She is post bronchoscopy with pulmonary powder line repairer. Per reports patient may need repeat bronchoscopy. Lasix has been placed on hold and the patient is being gently hydrated with normal saline. She has also been started on IV Solu-Medrol 40 mg every 8 hours in addition to empiric antibiotic coverage with IV Zosyn. She is on a propofol drip for sedation. We will repeat labs in morning including CBC, CMP. She is being followed by multiple consultations including pulmonary powder line repairer, cardiology, neurology, and ENT. Code status per family includes mechanical ventilation only. Family does not want defibrillation, trach, peg. The impression and plan of care has been dictated by Carlene Loera, Nurse Practitioner as directed. Dr. Kacey MD I have performed a history and physical examination and medical decision making of this patient, discussed the same with the dictator, and agree with the dictators assessment and plan as written, documented as a scribe. Based on total visit time, I have performed more than 50% of this visit. Objective - Vital Signs Vital signs: Vital Signs Temp 98.1 F 01/09/22 04:00 Pulse 65 01/09/22 06:00 Resp 18 01/09/22 06:00 BP 124/57 01/09/22 06:00 Pulse Ox 94 L 01/09/22 06:00 FiO2 50 01/09/22 10:50 Intake & Output 01/08/22 01/09/22 01/09/22 18:59 06:59 18:59 Intake Total 150 605.573 Output Total 990 445 Balance -840 160.573 Weight 48.7 kg Intake: Intake, IV Titration 150 605.573 Amount Dexmedetomidine/0.9% NaCl 5.573 (Pmx) 400 mcg In Empty Bag 1 bag @ 0.2 MCG/KG/HR 2.675 mls/hr IV .Q24H [facility] Rx#:[id number] Sodium Chloride 0.9% 1, 150 600 000 ml @ 50 mls/hr IV . Q20H [facility] Rx#:[id number] Output: Urine 990 445 Uretheral (Tadeo) 900 Other: Voiding Method Indwelling Catheter Indwelling Catheter - Labs CBC & Chem 7: 01/09/22 06:54 01/09/22 06:54 Labs: Abnormal Lab Results - Last 24 Hours (Table) 01/08/22 01/08/22 01/08/22 Range/Units 14:24 14:24 15:37 WBC (3.8-10.6) k/uL Hgb (11.4-16.0) gm/dL Hct (34.0-46.0) % MCH (25.0-35.0) pg MCHC (31.0-37.0) g/dL RDW (11.5-15.5) % Neutrophils # (1.3-7.7) k/uL Lymphocytes # (1.0-4.8) k/uL D-Dimer 2.19 H (<0.60) mg/L FEU ABG pH 7.55 H (7.35-7.45) ABG pO2 144 H (83-108) mmHg ABG HCO3 30 H (21-25) mmol/L ABG Total CO2 32 H (19-24) mmol/L ABG O2 Saturation 100.0 H (94-97) % BUN (7-17) mg/dL Glucose (74-99) mg/dL POC Glucose (mg/dL) (70-110) mg/dL Troponin I 0.503 H* (0.000-0.034) ng/mL Urine Appearance (Clear) Urine Protein (Negative) Urine Ketones (Negative) Urine Blood (Negative) Ur Leukocyte Esterase (Negative) Urine RBC (0-5) /hpf Urine WBC (0-5) /hpf Urine WBC Clumps (None) /hpf Amorphous Sediment (None) /hpf Urine Bacteria (None) /hpf Hyaline Casts (0-2) /lpf Urine Mucus (None) /hpf 01/08/22 01/08/22 01/08/22 Range/Units 21:23 21:23 23:17 WBC 14.4 H (3.8-10.6) k/uL Hgb 10.6 L (11.4-16.0) gm/dL Hct (34.0-46.0) % MCH 24.2 L (25.0-35.0) pg MCHC 28.1 L (31.0-37.0) g/dL RDW 17.6 H (11.5-15.5) % Neutrophils # 13.3 H (1.3-7.7) k/uL Lymphocytes # 0.5 L (1.0-4.8) k/uL D-Dimer (<0.60) mg/L FEU ABG pH (7.35-7.45) ABG pO2 (83-108) mmHg ABG HCO3 (21-25) mmol/L ABG Total CO2 (19-24) mmol/L ABG O2 Saturation (94-97) % BUN 31 H (7-17) mg/dL Glucose 128 H (74-99) mg/dL POC Glucose (mg/dL) (70-110) mg/dL Troponin I (0.000-0.034) ng/mL Urine Appearance Cloudy H (Clear) Urine Protein Trace H (Negative) Urine Ketones 1+ H (Negative) Urine Blood Moderate H (Negative) Ur Leukocyte Esterase Large H (Negative) Urine RBC 147 H (0-5) /hpf Urine WBC 149 H (0-5) /hpf Urine WBC Clumps Many H (None) /hpf Amorphous Sediment Occasional H (None) /hpf Urine Bacteria Occasional H (None) /hpf Hyaline Casts 59 H (0-2) /lpf Urine Mucus Occasional H (None) /hpf 01/08/22 01/09/22 01/09/22 Range/Units 23:46 05:57 06:54 WBC 11.3 H (3.8-10.6) k/uL Hgb 9.8 L (11.4-16.0) gm/dL Hct 33.5 L (34.0-46.0) % MCH (25.0-35.0) pg MCHC 29.2 L (31.0-37.0) g/dL RDW 17.7 H (11.5-15.5) % Neutrophils # 10.1 H (1.3-7.7) k/uL Lymphocytes # 0.6 L (1.0-4.8) k/uL D-Dimer (<0.60) mg/L FEU ABG pH (7.35-7.45) ABG pO2 (83-108) mmHg ABG HCO3 (21-25) mmol/L ABG Total CO2 (19-24) mmol/L ABG O2 Saturation (94-97) % BUN (7-17) mg/dL Glucose (74-99) mg/dL POC Glucose (mg/dL) 155 H 120 H (70-110) mg/dL Troponin I (0.000-0.034) ng/mL Urine Appearance (Clear) Urine Protein (Negative) Urine Ketones (Negative) Urine Blood (Negative) Ur Leukocyte Esterase (Negative) Urine RBC (0-5) /hpf Urine WBC (0-5) /hpf Urine WBC Clumps (None) /hpf Amorphous Sediment (None) /hpf Urine Bacteria (None) /hpf Hyaline Casts (0-2) /lpf Urine Mucus (None) /hpf 01/09/22 01/09/22 Range/Units 06:54 10:50 WBC (3.8-10.6) k/uL Hgb (11.4-16.0) gm/dL Hct (34.0-46.0) % MCH (25.0-35.0) pg MCHC (31.0-37.0) g/dL RDW (11.5-15.5) % Neutrophils # (1.3-7.7) k/uL Lymphocytes # (1.0-4.8) k/uL D-Dimer (<0.60) mg/L FEU ABG pH 7.48 H (7.35-7.45) ABG pO2 74 L (83-108) mmHg ABG HCO3 32 H (21-25) mmol/L ABG Total CO2 34 H (19-24) mmol/L ABG O2 Saturation (94-97) % BUN 32 H (7-17) mg/dL Glucose 122 H (74-99) mg/dL POC Glucose (mg/dL) (70-110) mg/dL Troponin I (0.000-0.034) ng/mL Urine Appearance (Clear) Urine Protein (Negative) Urine Ketones (Negative) Urine Blood (Negative) Ur Leukocyte Esterase (Negative) Urine RBC (0-5) /hpf Urine WBC (0-5) /hpf Urine WBC Clumps (None) /hpf Amorphous Sediment (None) /hpf Urine Bacteria (None) /hpf Hyaline Casts (0-2) /lpf Urine Mucus (None) /hpf Microbiology - Last 24 Hours (Table) 01/08/22 23:17 Urine Culture - Preliminary Urine,Voided Assessment and Plan Time with Patient: Less than 30
--- NOTE | 2022-01-09 15:38 | PCN ---
PROCEDURE NOTE OPERATIVE REPORT: Intubation. PREOPERATIVE DIAGNOSIS: Left lung collapse secondary to mucus plugging, and the patient has severe underlying COPD. POSTOPERATIVE DIAGNOSIS: Left lung collapse secondary to mucus plugging, and the patient has severe underlying COPD. ANESTHESIA USED: The patient was given 75 mg of succinylcholine, 50 mg of propofol. PROCEDURE: Patient was placed in a supine position, the patient was Ambu bagged initially after the anesthetics were given. I was able to visualize the vocal cords using a GlideScope. As soon as the vocal cords were visualized, there was a tumor noted in the vallecula, it slightly impinges on the right vocal cord measuring about 2.0 cm. Pictures of the tumor were given. Nonetheless, I went ahead and proceeded with intubating the patient with a size 7.5 endotracheal tube. The vocal cords were easily entered, and as soon as the tube went through the vocal cords, the cuff was inflated, and there was color change and monitored adequate placement of the endotracheal tube by listening to breath sounds bilaterally, and by noticing color change indicating end- tidal CO2 monitoring. At any rate, the patient was intubated and connected to mechanical ventilation, and the cuff was inflated at the 22 cm at the lip. No complications, the procedure was well tolerated. MMODL / IJN: [id number] /
--- NOTE | 2022-01-09 15:45 | PCN ---
PROCEDURE NOTE OPERATIVE REPORT: Bronchoscopy and bronchoalveolar lavage of the left lung were extraction of the left mainstem endobronchial mucous plugs. PREOPERATIVE DIAGNOSIS: Left lung collapse secondary to mucus plugging. POSTOPERATIVE DIAGNOSIS: Left lung collapse secondary to mucus plugging. ANESTHESIA: The patient was already on propofol after intubation. PROCEDURE: The patient was placed in the supine position, she was already on mechanical ventilation, as the patient was intubated earlier. The bronchoscope was advanced through the endotracheal tube down to the distal area of the endotracheal tube, and there was significant mucus noted. Secretions noted at the distal end. The right side was examined, there was hardly any secretions on the right side. The right upper lobe, right middle lobe, right lower lobe were intact. However, as I entered the left mainstem bronchus, there was a large mucus plug with purulent secretions completely occluding the left mainstem bronchus. Suctioning was done, lavage of the whole left lung was done including lavage of the left mainstem bronchus, left upper lobe, left side, lingula and left lower lobe. The procedure was well tolerated, the fluid was sent for different diagnostic studies including cultures. Again, no complications. The patient remained on mechanical ventilation postprocedure, and the chest x-ray showed significant improvement of the left lung, but not completely clear. Hence, we will keep the patient on mechanical ventilation for the next 24 hours. MMODL / IJN: [id number] /
[2022-01-09] MEDS: SODIUM CHLORIDE 0.9% 1,000 ML IV SCH (16:37)
[2022-01-09 17:00] LABS: Glucose,Whole Blood 90 mg/dL (70-110)
[2022-01-09] MEDS: ATORVASTATIN 80 MG TAB PO SCH (20:04)
[2022-01-09] MEDS: ESCITALOPRAM 5 MG TAB PO SCH (20:04)
--- NOTE | 2022-01-09 20:26 | PCN ---
PROCEDURE NOTE OPERATIVE REPORT: Placement of a right jugular triple-lumen catheter. PREOPERATIVE DIAGNOSIS: Acute hypoxic respiratory failure. POSTOP DIAGNOSIS: Acute hypoxic respiratory failure. ANESTHESIA USED: 2 mL of 1% lidocaine. PROCEDURE: The patient was placed in a Trendelenburg position, right neck was prepared in a sterile fashion. Drapes were applied. The area behind the posterior belly of the sternocleidomastoid was locally anesthetized. Then using the posterior approach, the right internal jugular vein was easily cannulated, a guidewire was placed, area around the guidewire was dilated. Then a triple-lumen catheter was inserted over the guidewire, the guidewire was removed. Good blood flow noted in the significant ports, no complications, line was secured using 3.0 silk sutures. The chest x-ray postoperatively was unremarkable and showed adequate placement of the line. MMLACEY / OSMANN: [id number] /
--- NOTE | 2022-01-09 20:29 | PCN ---
PROCEDURE NOTE OPERATIVE REPORT: Placement of the left brachial arterial line. PREOPERATIVE DIAGNOSIS: Acute hypoxic respiratory failure. POSTOPERATIVE DIAGNOSIS: Acute hypoxic respiratory failure. ANESTHESIA: Used none deployed. PROCEDURE: The patient was placed in the supine position, the left brachial region was prepared in a sterile fashion. Drapes were applied. The left brachial artery was palpated, easily cannulated, and a guidewire was placed. A Cook's catheter was inserted over the guidewire, and the guidewire was removed. Good blood flow, good waveform, no complications. Line was secured using 3.0 silk sutures. MMODL / IJN: [id number] /
[2022-01-09] MEDS: HYDROmorphone 1 MG/ML 1 ML SYRINGE IVP PRN (21:19)
[2022-01-09] MEDS: ACETAMINOPHEN TAB 500 MG TAB PO PRN (21:52)
[2022-01-09] MEDS ORDERED: Potassium Replacement Protocol 1 EACH MISC MISCELLANE PRN (22:27)
[2022-01-09] MEDS: POTASSIUM BICARBONATE/CIT AC 20 MEQ TABLET.EFF NG-TUBE SCH ×2 (22:37→23:29)
[2022-01-09] MEDS ORDERED: NOREPINEPHRIN 4 MG-0.9% NS PMX 4 MG/250 ML ML IV ONE (22:54)
[2022-01-09] MEDS: NOREPINEPHRINE 4 MG in SODIUM CHLORIDE 0.9% 250 ML IV SCH (22:55)
[2022-01-09 23:28] LABS: Glucose,Whole Blood 140 mg/dL (70-110)
[2022-01-09 23:37] LABS: Calcium 8.6 mg/dL (8.4-10.2); Magnesium 1.9 mg/dL (1.6-2.3); Phosphorus 3.4 mg/dL (2.5-4.5); Potassium 3.2 mmol/L (3.5-5.1)
[2022-01-10] MEDS: PIPERACILLIN-TAZOBACTAM 3.375 GM in SODIUM CHLORIDE 0.9% 100 ML IVPB SCH ×3 (03:06→18:56)
[2022-01-10 04:49] LABS: Albumin 2.7 g/dL (3.5-5.0); Calcium 8.8 mg/dL (8.4-10.2); Potassium 3.8 mmol/L (3.5-5.1); Total Protein 5.5 g/dL (6.3-8.2)
[2022-01-10 04:55] LABS: Anisocytosis Slight; Basophils % (A) 0 %; Eosinophils % (A) 0 %; HCT 31.8 % (34.0-46.0); HGB 9.5 gm/dL (11.4-16.0); Hypochromasia Marked; Lymphocytes # (A) 0.6 k/uL (1.0-4.8); Lymphocytes % (A) 6 %; MCH 25.6 pg (25.0-35.0); MCV 85.2 fL (80.0-100.0); Mean Platelet Volume 9.1; Monocytes # (A) 0.3 k/uL (0-1.0); Monocytes % (A) 3 %; Neutrophils # (A) 8.8 k/uL (1.3-7.7); Neutrophils % (A) 89 %; Platelet Count 231 k/uL (150-450); Poikilocytosis Slight; RBC 3.73 m/uL (3.80-5.40); RDW 18.3 % (11.5-15.5); WBC 9.9 k/uL (3.8-10.6)
[2022-01-10 05:31] LABS: Glucose,Whole Blood 160 mg/dL (70-110)
[2022-01-10] MEDS: INSULIN ASPART (NovoLOG) 100 UNIT/ML VIAL SQ SCH ×4 (05:31→23:59)
[2022-01-10 05:49] LABS: ABG Base Excess 9.3 mmol/L; ABG HCO3 32 mmol/L (21-25); ABG PCO2 37 mmHg (35-45); ABG PH 7.55 (7.35-7.45); ABG PO2 84 mmHg (83-108); ABG TCO2 33 mmol/L (19-24); Allen Test Performed? Yes
[2022-01-10] MEDS ORDERED: POTASSIUM BICARBONATE/CIT AC 20 MEQ TABLET.EFF NG-TUBE SCH (06:00)
[2022-01-10] MEDS: IPRATROPIUM 0.5 MG/2.5 ML NEBU INHALATION SCH ×4 (08:27→19:50)
[2022-01-10] MEDS: methylPREDNISolone SOD SUCCI 40 MG/ML 1 ML VIAL IV SCH ×3 (08:37→23:46)
[2022-01-10] MEDS: PANTOPRAZOLE 40 MG/10 ML VIAL IVP SCH (08:37)
[2022-01-10] MEDS: METOPROLOL TARTRATE 25 MG TAB PO SCH ×2 (08:38→20:01)
[2022-01-10] MEDS: ASPIRIN 81 MG PO SCH (08:38)
[2022-01-10] MEDS: CHLORHEXIDINE GLUCONATE 15 ML CUP MUCOUS MEM SCH ×2 (08:38→20:00)
[2022-01-10] MEDS: BACLOFEN 10 MG TAB PO SCH ×3 (08:38→21:01)
[2022-01-10] MEDS: FOLIC ACID 1 MG TAB PO SCH (08:38)
[2022-01-10] MEDS: APIXABAN 5 MG TAB PO SCH ×2 (08:38→20:00)
[2022-01-10] MEDS: LETROZOLE 2.5 MG TAB PO SCH (08:39)
--- NOTE | 2022-01-10 10:17 | XR ---
EXAMINATION TYPE: XR chest 1V portable DATE OF EXAM: 01/10/2022 COMPARISON: Chest x-ray 01/09/2022 HISTORY: Intubated TECHNIQUE: Single frontal view of the chest is obtained. FINDINGS: Endotracheal tube, right jugular central venous catheter, left atrial appendage clip and p ostop changes are all again noted. NG tube shows the distal tip near the gastroesophageal junction. N o evident pneumothorax. There are overlying leads. Patient is rotated. There is some improvement in a eration as compared to prior exam, persistent abnormal density at the left lung base with obscured le ft hemidiaphragm, increased retrocardiac density. Cardiac mediastinal silhouette is likely stable. Ao rta is dense. IMPRESSION: Improvement in aeration.
--- NOTE | 2022-01-10 10:55 | P.PN ---
Subjective 76-year-old lady who developed vent requiring respiratory failure intubated on vent oxygenating well thinks are improving. On exam intubated on vent sedated in sinus rhythm stable hemodynamically there is a jugular venous distention chest exam reveals good air entry bilaterally and do not hear any crackles or rhonchi heart exam reveals first and second heart sounds no gallop abdomen is soft exam extremities did not will any edema per for pulses are felt Labs show a hemoglobin of 9.5 platelet count is 2:30 blood gases revealed a pH of 7.5 pO2 of 84. Potassium is 3.8 BN is 36 creatinine 0.9 Assessment and plan: Paroxysmal A. fib Acute exacerbation of chronic systolic heart failure COPD Vent requiring respiratory failure CAD status post CABG Patient will continue Eliquis aspirin and Lipitor and Zestril and Lopressor. Will continue the antibiotics Objective - Vital Signs Vital signs: Vital Signs Temp 97.7 F 01/10/22 08:00 Pulse 66 01/10/22 08:38 Resp 25 H 01/10/22 08:00 BP 114/56 01/10/22 08:00 Pulse Ox 98 01/10/22 08:00 FiO2 40 01/10/22 10:41 Intake & Output 01/09/22 01/10/22 01/10/22 18:59 06:59 18:59 Intake Total 827.798 959.062 180.178 Output Total 357 337 70 Balance 470.798 622.062 110.178 Weight 48.7 kg 52.7 kg Intake: IV 750 600 100 Piperacillin-Tazobactam 3 200 .375 gm In Sodium Chloride 0.9% 100 ml @ 25 mls/hr IVPB Q8H [facility] Rx#: [id number] Sodium Chloride 0.9% 1, 550 600 100 000 ml @ 50 mls/hr IV . Q20H [facility] Rx#:[id number] Intake, IV Titration 77.798 89.062 40.178 Amount Norepinephrine 4 mg In 87.796 Sodium Chloride 0.9% 250 ml @ 0.05 MCG/KG/MIN 9. 277 mls/hr IV .Q24H [facility] Rx#:[id number] propofoL 1,000 mg In 77.798 Empty Bag 1 bag @ 5 MCG/ KG/MIN 1.461 mls/hr IV . Q24H [facility] Rx#:[id number] propofoL 1,000 mg In 1.266 40.178 Empty Bag 1 bag @ 50 MCG/ KG/MIN 14.61 mls/hr IV . Q6H51M [facility] Rx#:[id number] Tube Feeding 180 40 Other 90 Output: Urine 357 337 70 Other: Voiding Method Indwelling Catheter Indwelling Catheter ABP, PAP, CO, CI - Last Documented Arterial Blood Pressure 200/73 - Labs CBC & Chem 7: 01/10/22 04:10 01/10/22 04:10 Labs: Abnormal Lab Results - Last 24 Hours (Table) 01/09/22 01/09/22 01/09/22 Range/Units 10:50 11:48 23:10 RBC (3.80-5.40) m/uL Hgb (11.4-16.0) gm/dL Hct (34.0-46.0) % MCHC (31.0-37.0) g/dL RDW (11.5-15.5) % Neutrophils # (1.3-7.7) k/uL Lymphocytes # (1.0-4.8) k/uL ABG pH 7.48 H (7.35-7.45) ABG pO2 74 L (83-108) mmHg ABG HCO3 32 H (21-25) mmol/L ABG Total CO2 34 H (19-24) mmol/L ABG O2 Saturation (94-97) % Potassium 3.2 L (3.5-5.1) mmol/L Carbon Dioxide (22-30) mmol/L BUN 36 H (7-17) mg/dL Glucose 126 H (74-99) mg/dL POC Glucose (mg/dL) 128 H (70-110) mg/dL Total Protein (6.3-8.2) g/dL Albumin (3.5-5.0) g/dL 01/09/22 01/10/22 01/10/22 Range/Units 23:27 04:10 04:10 RBC 3.73 L (3.80-5.40) m/uL Hgb 9.5 L (11.4-16.0) gm/dL Hct 31.8 L (34.0-46.0) % MCHC 30.0 L (31.0-37.0) g/dL RDW 18.3 H (11.5-15.5) % Neutrophils # 8.8 H (1.3-7.7) k/uL Lymphocytes # 0.6 L (1.0-4.8) k/uL ABG pH (7.35-7.45) ABG pO2 (83-108) mmHg ABG HCO3 (21-25) mmol/L ABG Total CO2 (19-24) mmol/L ABG O2 Saturation (94-97) % Potassium (3.5-5.1) mmol/L Carbon Dioxide 31 H (22-30) mmol/L BUN 36 H (7-17) mg/dL Glucose 165 H (74-99) mg/dL POC Glucose (mg/dL) 140 H (70-110) mg/dL Total Protein 5.5 L (6.3-8.2) g/dL Albumin 2.7 L (3.5-5.0) g/dL 01/10/22 01/10/22 Range/Units 05:29 05:46 RBC (3.80-5.40) m/uL Hgb (11.4-16.0) gm/dL Hct (34.0-46.0) % MCHC (31.0-37.0) g/dL RDW (11.5-15.5) % Neutrophils # (1.3-7.7) k/uL Lymphocytes # (1.0-4.8) k/uL ABG pH 7.55 H (7.35-7.45) ABG pO2 (83-108) mmHg ABG HCO3 32 H (21-25) mmol/L ABG Total CO2 33 H (19-24) mmol/L ABG O2 Saturation 98.0 H (94-97) % Potassium (3.5-5.1) mmol/L Carbon Dioxide (22-30) mmol/L BUN (7-17) mg/dL Glucose (74-99) mg/dL POC Glucose (mg/dL) 160 H (70-110) mg/dL Total Protein (6.3-8.2) g/dL Albumin (3.5-5.0) g/dL Microbiology - Last 24 Hours (Table) 01/09/22 09:13 Gram Stain - Preliminary Bronchial Washings - Left Bronchial Washings Culture - Preliminary 01/09/22 09:13 Acid Fast Bacilli Smear - Final Bronchial Washings - Left Acid Fast Bacilli Culture - Preliminary 01/09/22 09:13 Fungal Culture - Preliminary Bronchial Washings - Left 01/08/22 23:17 Urine Culture - Preliminary Urine,Voided
[2022-01-10] MEDS: GABAPENTIN 100 MG CAP PO SCH ×3 (11:03→21:02)
[2022-01-10] MEDS: SODIUM CHLORIDE 0.9% 1,000 ML IV SCH (11:20)
[2022-01-10 11:37] LABS: Glucose,Whole Blood 178 mg/dL (70-110)
--- NOTE | 2022-01-10 12:04 | P.PN ---
Subjective Progress Note Date: 01/10/22 Patient is a pleasant 46-year-old female came in with compensative shortness of breath and orthopnea, patient does have history of congestive heart failure EF of around 25-30% in the past patient has ischemic cardiomyopathy had heart attacks in the past and CABG in the past. Patient is found to have elevated BNP of 10,000 and the patient the chest x-ray is consistent with congestive heart failure with bilateral pleural effusions and primary congestion. Patient the quit smoking many months ago started smoking again last July. Chest x-ray did not show any pneumonia patient is comparing of coffee per day sputum production. had the atrial fibrillation with rapid ventricular rate on admission was on Cardizem uses metoprolol Cardizem is being this can urine patient's metoprolol dose will be increased cardiology was consulted. 01/06/2022 Patient evaluated today resting in bed. Overall she is feeling better. She continues on oxygen via nasal cannula 2-3 L, oxygen saturation is 99% and this can be weaned off probably. She has been started on eliquis. Metoprolol has been increased to 75 mg PO BID and she is now in sinus rhythm. She uses trelegy inhaler at home which is not stocked here for this reason she is on symbicort. Echocardiogram has been completed showing EF of 45% with inferobasal hypokinesia, there is mild to moderate mitral regurgitation. She continues on IV lasix BID, has been down -1.4 Liters in the last 24 hours. Labs today showing sodium 139, potassium 4.2, BUN 18, creatinine 0.86, magnesium 1.6. Cardiology is recommending cardiac cath when she is medically stable. 01/07/2022 Patient elevated today resting in bed, she is alert 1 which is a change in mental status. Apparently this happened throughout the night time babysitter. Brain CT without contrast was completed today which shows no hemorrhage and no acute stroke. Continue to monitor neuro status will start patient on a small dose of Seroquel the evening for some possible acute hospital delirium. Patient is on Lexapro and accommodation can prolong QT interval which was reviewed and her QTC is showing 385 on EKG. Labs show serum sodium 139, potassium 3.7, chloride 97, CO2 33, BUN 19, creatinine 0.91. Blood pressure today 134/67. IV lasix decreased to daily. 01/08/2022 Patient evaluated today and her mentation has improved slighty she is alert x 2 now. She underwent repeat brain CT 01/07/2022 in the evening redemonstrating right parietal infarct with encephalomalacia, however, this CT reports continued evolution. No new areas for acute/subacute infarct. There is nonspecific white matter changes. Patient to be evaluated today by neurology. She is afebrile, heart rate 83, blood pressure 159/71, 96% on 3L Nasal cannula, she was dyspneic today on exam, chest xray was completed showing some basilar atelectasis. Labs today showing sodium 140, potassium 4.2, CO2 increased up to 37, ABG's were ordered last night showing PO2 of 72, HCO3 34, total CO2 36, pCO2 58. She has been transitioned to oral lasix today. 01/09/2022 Patient was upgraded to intensive care unit and placed on BiPAP yesterday afternoon, she was started on precedex gtt through out the night for acute agitation. Repeat ABGs were completed showing pH 7.55, pCO2 35, pO2 144, HCO3 30, total CO2 32, oxygen saturation 100%. Repeat troponin level showing 0.503 which is trending down, d-dimer was completed at 2.19. Patient had a chest xray completed this morning showing opacification of the left lung suggesting comple te collapse of the left lung with suspected mucous plug or obstruction. 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 ENT was consulted for this. Bronchoscopy per reports showed mucous plugging in the left mainstream bronchus which was extracted and Patient is now on mechanical ventilator with FiO2 of 50%. Repeat chest xray post bronchoscopy shows improved aeration of the left upper lobe with persistent abnormal density in the lower 2/3 of the chest. Labs today showing white count 11.3, hgb 9.8, sodium 142, potassium 3.5, BUN 7, creatinine 3.2. Glucose in the 120s. Urinalysis showing cloudy urine with trace protein, mo derate blood, ketones, large leukocyte esterase, WC 149, many white blood cell clumps, high hyaline casts. Urine culture is pending. She has been started on IV zosyn empirically, as well as IV solumedrol 40 mg Q8h, symbicort, duonebs. Lasix is on hold and she is receiving normal saline at 50 mLs per hour. Precedex has been discontinued. She is being followed by neurology, pulmonary nuisance wildlife control operator, an d cardiology services. 01/10/2022 Patient continues to be monitored in the intensive care unit on mechanical ventilator with FiO2 40%. She is status post bronchoscopy with evacuation of mucous plugging left mainstem bronchus. Today her chest xray shows improvement in aeration with persistent abnormal density in the left lung base. No wheezing noted today, she does sound rhonchorous today with JVD evident. She continues off lasix. Labs today showing white count of 9.9, hemoglobin 9.5, sodium 142, potassium 3.8, CO2 31, BUN 36, creatinine 0.90. Blood glucoses in the 160s. She has T-Max 101.3 in the last 24 hours, heart rate showing sinus kathrin cardia in the 50s, blood pressure 88/40, 97% oxygenation, Cardiology is following the patient as well as neurology and pulmonary nuisance wildlife control operator. She continues on IV zosyn, IV propofol, she is requiring pressor support. Continues on IV solumedrol and blood sugars will be monitored closely. Dietary has also been consulted and patient will be started on enteral tube feedings. Family has changed code status to mechanical ventilation only. She is wiggling toes on examination. Unable to complete full review of systems as patient is intubated All inpatient medications were reviewed and appropriate changes in these medications as dictated in the interval history and assessment and plan. PHYSICAL EXAMINATION: GENERAL: The patient continues in intensive care unit on mechanical ventilator. HEENT: Pupils are round and equally reacting to light. EOMI. No scleral icterus. No conjunctival pallor. Normocephalic, atraumatic. No pharyngeal erythema. No thyromegaly. CARDIOVASCULAR: S1 and S2 present. No murmurs, rubs, or gallops. Elevated JVD PULMONARY: Coarse rhonchi throughout, ABDOMEN: Soft, nontender, nondistended, normoactive bowel sounds. No palpable organomegaly. MUSCULOSKELETAL: No joint swelling or deformity. EXTREMITIES: No cyanosis, clubbing, no pedal edema, wiggling toes NEUROLOGICAL: Patient is intubated. SKIN: No rashes. Assessment and plan -Acute hypoxic and hypercapnic Respiratory Failure patient is on mechanical ve ntilator being monitored in the intensive care unit with 40% FiO2. She is status post bronchoscopy which reveals mucous plugging of left mainstem bronchus. Left lung aeration has improved on imaging. Culture and cytology are pending. She is on antibiotics empirically. 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 fib does take Eliquis for anticoagulation. Patient is continued on metoprolol. -Elevated troponins, likely NSTEMI per cardiology will most likely require cardiac cath when medically sable -COPD with acute exacerbation patient was started on inhaled steroids, she is maintained on trelegy outpatient, IV solumedrol has been added today. -Altered mental status with repeat brain CT showing continued evolution of right parietal infarct with encephalomalacia, most likely this is toxic metabolic encephalopathy from underlying cardiac and pulmonary disease process as mentioned above. -Depression -Coronary artery disease status post prior stenting and 3 vessel CABG -Peripheral neuropathy -Hyperlipidemia -History of cerebral vascular accident in the past without any residual weakness -Mitral valve prolapse -History of LV thrombus -Hypertension -History of right breast cancer with mastectomy she is maintained on femara daily GI Prophylaxis: DVT prophylaxis: On Eliquis code status: mechanical ventilator only Plan Patient will continue to be monitored in the intensive care unit on mechanical ventilator. She is post bronchoscopy with pulmonary nuisance wildlife control operator. Per reports patient may need repeat bronchoscopy. Per chest xray there is improved aeration of the left lung with plans to repeat chest xray in the morning. Lasix has been placed on hold and the patient is being gently hydrated with normal saline. She continues on IV Solu-Medrol 40 mg every 8 hours in addition to empiric antibiotic coverage with IV Zosyn. She is on a propofol drip for sedation, patient is also maintained on pressor support. Dietary has been consulted for enteral tube feedings and blood glucose will be monitored closely and adjust as needed. She is being followed by multiple consultations including pulmonary nuisance wildlife control operator, cardiology, neurology, and ENT. Follow up labs in AM including CBC, CMP. Code status per family includes mechanical ventilation only. Family does not want defibrillation, trach, peg. Prognosis remains guarded for this patient. The impression and plan of care has been dictated by Carlene Loera Nurse Practitioner as directed. Dr. Kacey MD I have performed a history and physical examination and medical decision making of this patient, discussed the same with the dictator, and agree with the dictators assessment and plan as written, documented as a scribe. Based on total visit time, I have performed more than 50% of this visit. Objective - Vital Signs Vital signs: Vital Signs Temp 97.7 F 01/10/22 08:00 Pulse 64 01/10/22 11:38 Resp 25 H 01/10/22 11:00 BP 88/40 01/10/22 11:00 Pulse Ox 97 01/10/22 11:00 FiO2 40 01/10/22 10:41 Intake & Output 01/09/22 01/10/22 01/10/22 18:59 06:59 18:59 Intake Total 827.798 959.062 394.811 Output Total 357 337 160 Balance 470.798 622.062 234.811 Weight 48.7 kg 52.7 kg Intake: IV 750 600 250 Piperacillin-Tazobactam 3 200 .375 gm In Sodium Chloride 0.9% 100 ml @ 25 mls/hr IVPB Q8H [facility] Rx#: [id number] Sodium Chloride 0.9% 1, 550 600 250 000 ml @ 50 mls/hr IV . Q20H [facility] ANNE Rx#:[id number] Intake, IV Titration 77.798 89.062 44.811 Amount Norepinephrine 4 mg In 87.796 Sodium Chloride 0.9% 250 ml @ 0.05 MCG/KG/MIN 9. 277 mls/hr IV .Q24H [facility]NE Rx#:[id number] propofoL 1,000 mg In 77.798 Empty Bag 1 bag @ 5 MCG/ KG/MIN 1.461 mls/hr IV . Q24H [facility]NE Rx#:[id number] propofoL 1,000 mg In 1.266 44.811 Empty Bag 1 bag @ 50 MCG/ KG/MIN 14.61 mls/hr IV . Q6H51M [facility] ANNE Rx#:[id number] Tube Feeding 180 100 Other 90 Output: Urine 357 337 160 Other: Voiding Method Indwelling Catheter Indwelling Catheter Indwelling Catheter ABP, PAP, CO, CI - Last Documented Arterial Blood Pressure 154/44 - Labs CBC & Chem 7: 01/10/22 04:10 01/10/22 04:10 Labs: Abnormal Lab Results - Last 24 Hours (Table) 01/09/22 01/09/22 01/09/22 Range/Units 11:48 23:10 23:27 RBC (3.80-5.40) m/uL Hgb (11.4-16.0) gm/dL Hct (34.0-46.0) % MCHC (31.0-37.0) g/dL RDW (11.5-15.5) % Neutrophils # (1.3-7.7) k/uL Lymphocytes # (1.0-4.8) k/uL ABG pH (7.35-7.45) ABG HCO3 (21-25) mmol/L ABG Total CO2 (19-24) mmol/L ABG O2 Saturation (94-97) % Potassium 3.2 L (3.5-5.1) mmol/L Carbon Dioxide (22-30) mmol/L BUN 36 H (7-17) mg/dL Glucose 126 H (74-99) mg/dL POC Glucose (mg/dL) 128 H 140 H (70-110) mg/dL Total Protein (6.3-8.2) g/dL Albumin (3.5-5.0) g/dL 01/10/22 01/10/22 01/10/22 Range/Units 04:10 04:10 05:29 RBC 3.73 L (3.80-5.40) m/uL Hgb 9.5 L (11.4-16.0) gm/dL Hct 31.8 L (34.0-46.0) % MCHC 30.0 L (31.0-37.0) g/dL RDW 18.3 H (11.5-15.5) % Neutrophils # 8.8 H (1.3-7.7) k/uL Lymphocytes # 0.6 L (1.0-4.8) k/uL ABG pH (7.35-7.45) ABG HCO3 (21-25) mmol/L ABG Total CO2 (19-24) mmol/L ABG O2 Saturation (94-97) % Potassium (3.5-5.1) mmol/L Carbon Dioxide 31 H (22-30) mmol/L BUN 36 H (7-17) mg/dL Glucose 165 H (74-99) mg/dL POC Glucose (mg/dL) 160 H (70-110) mg/dL Total Protein 5.5 L (6.3-8.2) g/dL Albumin 2.7 L (3.5-5.0) g/dL 01/10/22 01/10/22 Range/Units 05:46 11:35 RBC (3.80-5.40) m/uL Hgb (11.4-16.0) gm/dL Hct (34.0-46.0) % MCHC (31.0-37.0) g/dL RDW (11.5-15.5) % Neutrophils # (1.3-7.7) k/uL Lymphocytes # (1.0-4.8) k/uL ABG pH 7.55 H (7.35-7.45) ABG HCO3 32 H (21-25) mmol/L ABG Total CO2 33 H (19-24) mmol/L ABG O2 Saturation 98.0 H (94-97) % Potassium (3.5-5.1) mmol/L Carbon Dioxide (22-30) mmol/L BUN (7-17) mg/dL Glucose (74-99) mg/dL POC Glucose (mg/dL) 178 H (70-110) mg/dL Total Protein (6.3-8.2) g/dL Albumin (3.5-5.0) g/dL Microbiology - Last 24 Hours (Table) 01/09/22 09:13 Gram Stain - Preliminary Bronchial Washings - Left Bronchial Washings Culture - Preliminary 01/09/22 09:13 Acid Fast Bacilli Smear - Final Bronchial Washings - Left Acid Fast Bacilli Culture - Preliminary 01/09/22 09:13 Fungal Culture - Preliminary Bronchial Washings - Left 01/08/22 23:17 Urine Culture - Preliminary Urine,Voided Assessment and Plan Time with Patient: Less than 30
--- NOTE | 2022-01-10 12:39 | P.PN ---
Subjective Progress Note Date: 01/10/22 Principal diagnosis: Acute hypoxic and hypercapnic respiratory failure, multifactorial secondary to COPD exacerbation and systolic dysfunction heart failure. 76-year-old female patient that was admitted thru the emergency department on 01/04/2022 for evaluation of chest pain, and shortness of breath. She felt like she couldn't catch her breath, and she was breathing really hard, and having palpitations. Has extensive medical history including paroxysmal atrial fibrillation on Eliquis, LV thrombus, TIA, coronary artery disease with history of stenting and three-vessel coronary artery bypass in November 2020 and the left atrial appendage clipping, chronic congestive heart failure with systolic dysfunction, ischemic cardiomyopathy, mitral valve prolapse with previous surgery, hypertension, hyperlipidemia, previous episode of pneumonia, COPD, peripheral vascular disease with previous bilateral iliac arthrectomy and stent placement, breast cancer with history of right mastectomy currently on Femara. Patient also has history of multiple sclerosis, and obstructive sleep apnea without CPAP on outpatient basis. Chest x-ray on admission showed cardiomegaly, blunting of the costophrenic angles more so on the left side, pulmonary rest or congestion consistent with congestive heart failure with pleural effusions. EKG showed A. fib with RVR. Lab evaluation showed a white blood cell, 7.9, hemoglobin is 9.1, INR is 1.2, potassium is 3.3, respiratory electrolytes were unremarkable, renal profile was within normal limits, lactic acid was 1.7, patient had troponin elevation of 0.067, 2.830, 2.9-0, and proBNP of 10,004 100. The COVID-19 influenza A and B were all negative. Echocardiogram showed improved EF at 45-50% compared previously documented EF of 25-30%. There was moderately increased left atrial volume, mild to moderate mitral regurgitation, there was inferobasal hypokinesia, no evidence of pericardial effusion. Patient was started on diuretics, she was placed on Cardizem infusion for rate control, and she was already on oral anticoagulation for history of paroxysmal atrial fibrillation. Patient was noted to have alteration of her mental status that was noted 3 days ago. Patient's breathing also got worse, more labored and diaphoretic. Patient was only able to say yes to every question which was a significant change from baseline. No seizures. No focal neurological deficit was noted. CT of the head from 01/07/2022 showed brain volume loss changes, chronic ischemic changes on chronic right occipital infarct. There was no acute process. CT of the brain CT was obtained from the same date on 01/07/2022 showed continued evolution of the right parietal infarct with encephalomalacia. No new areas of suspicious for acute subacute infarct, diffuse nonspecific white matter. Patient does have history of previous CVA from July 2021. She was seen in evaluation by neurology, and it was felt that her mental status was due to toxic metabolic encephalopathy. He was also diagnosed with acute non-ST elevated myocardial infarction. Today we were called to the bedside for evaluation of worsening shortness of breath, patient is awake, but is not able to answer any questions, she has obviously increased work of breathing, with accessory muscle use. At the time of our arrival to the bedside patient is having blood gas drawn, she is currently on 3 L of oxygen with pulse ox of 94%, she is afebrile, she remains in A. fib, chest x-ray this morning showing cardiomegaly, no evident pneumothorax or sizable pleural effusion, patchy densi ties at the left lung base, suspect some improvement in airspace disease. Yesterday patient had a blood gas that showed pO2 of 72, pCO2 of 58, and pH of 7.38 and this was done and FiO2 of 35%. Her last set of blood work from 01/07/2022 showed normal white count of 9.7, hemoglobin is 10.5, CO2 is 37, the rest of the electrolytes were within normal limits, B1 is 22, creatinine 0.99. Ammonia level is less than 9, LFTs were within normal limits. Patient has had no fever. Blood pressure is 149/79. Patient is having retractive respirations of the abdomen, and she will be placed on BiPAP support, with pending blood gases and transferred to the intensive care unit. Patient was reevaluated today on 01/09/2022, patient is on BiPAP, she is also on Precedex as she was getting extremely agitated last night. However the patient had developed apparently complete collapse of the left lung, and obviously based on the chest x-ray, the patient has mucous plugging involving the left mainstem bronchus. Indeed the patient underwent bronchoscopy while the patient was intubated, and revealed evidence of significant mucous plugs in the left mainstem bronchus,. His secretions, these were suctioned in the left lung was lavaged. Kept on mechanical ventilation to the address and she may need another bronchoscopy in the next 24 hours. She is now on mechanical ventilation assist control rate 24th of volume 300 FiO2 on the percent and PEEP of 5. He is also on propofol drip and IV fluid 0.9 normal saline at 50 mL per hour. Chest x-ray showed excellent improvement over a bronchoscopy and lavage of the left lung. 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 Hence ENT was consulted, consult is pending. Labs today showed W set of 11.3 hemoglobin 9.8. ABG post intubation on 50% showed a pO2 of 74 pCO2 43 pH of 7.48. Basic metabolic profile is normal renal profile is normal. Reevaluated today on 01/10/22, patient remains in the ICU, intubated and mechanically ventilated. Patient is on assist control rate of 24 tidal volume 350 FiO2 40% and PEEP of 5. Overnight the patient required small dose of norepinephrine at 0.04 mcg/kg/m. She is sedated, on propofol at 7.5 mcg/kg/h, patient is still receiving Zosyn for presumptive left sided pneumonia, and cultures are pending. ABG today showed a pO2 of 84 pCO2 37 pH of 7.55. Continues to have left lower lobe consolidation on chest x-ray, however dramatic improvement noted on the chest x-ray in comparison to her chest x-ray when she was admitted to the ICU showing a complete collapse of the left lung. WBC count today is 9.9 hemoglobin is 9.5. Basic metabolic profile is relatively normal. Patient is on enteral feeding. Tolerating enteral feeding well. Objective - Vital Signs Vital signs: Vital Signs Temp 97.7 F 01/10/22 08:00 Pulse 59 L 01/10/22 11:48 Resp 25 H 01/10/22 11:00 BP 88/40 01/10/22 11:00 Pulse Ox 97 01/10/22 11:00 FiO2 40 01/10/22 10:41 Intake & Output 01/09/22 01/10/22 01/10/22 18:59 06:59 18:59 Intake Total 827.798 959.062 394.811 Output Total 357 337 160 Balance 470.798 622.062 234.811 Weight 48.7 kg 52.7 kg Intake: IV 750 600 250 Piperacillin-Tazobactam 3 200 .375 gm In Sodium Chloride 0.9% 100 ml @ 25 mls/hr IVPB Q8H [facility] Rx#: [id number] Sodium Chloride 0.9% 1, 550 600 250 000 ml @ 50 mls/hr IV . Q20H [facility] ANNE Rx#:[id number] Intake, IV Titration 77.798 89.062 44.811 Amount Norepinephrine 4 mg In 87.796 Sodium Chloride 0.9% 250 ml @ 0.05 MCG/KG/MIN 9. 277 mls/hr IV .Q24H M[facility] ANNE Rx#:[id number] propofoL 1,000 mg In 77.798 Empty Bag 1 bag @ 5 MCG/ KG/MIN 1.461 mls/hr IV . Q24H [facility] ANNE Rx#:[id number] propofoL 1,000 mg In 1.266 44.811 Empty Bag 1 bag @ 50 MCG/ KG/MIN 14.61 mls/hr IV . Q6H51M [facility] ANNE Rx#:[id number] Tube Feeding 180 100 Other 90 Output: Urine 357 337 160 Other: Voiding Method Indwelling Catheter Indwelling Catheter Indwelling Catheter ABP, PAP, CO, CI - Last Documented Arterial Blood Pressure 154/44 - Exam Physical Exam: Revealed a 76-year-old female, intubated, sedated, mechanically ventilated. Head: Atraumatic, normocephalic. HEENT:[Neck is supple.] [No neck masses.] [No thyromegaly.] [No JVD.] Chest: [Scattered rhonchi bilaterally. No wheezing good breath sound bilaterally. Cardiac Exam: [Normal S1 and S2, no S3 gallop, no murmur.] Abdomen: [Soft, nontender, no megaly, no rebound, no guarding, normal bowel sounds.] Extremities: [No clubbing, no edema, no cyanosis.] Neurological Exam: Could not assess, patient is sedated. Psychiatric: Could not assess. Skin: No rashes - Labs CBC & Chem 7: 01/10/22 04:10 01/10/22 04:10 Labs: Abnormal Lab Results - Last 24 Hours (Table) 01/09/22 01/09/22 01/10/22 Range/Units 23:10 23:27 04:10 RBC 3.73 L (3.80-5.40) m/uL Hgb 9.5 L (11.4-16.0) gm/dL Hct 31.8 L (34.0-46.0) % MCHC 30.0 L (31.0-37.0) g/dL RDW 18.3 H (11.5-15.5) % Neutrophils # 8.8 H (1.3-7.7) k/uL Lymphocytes # 0.6 L (1.0-4.8) k/uL ABG pH (7.35-7.45) ABG HCO3 (21-25) mmol/L ABG Total CO2 (19-24) mmol/L ABG O2 Saturation (94-97) % Potassium 3.2 L (3.5-5.1) mmol/L Carbon Dioxide (22-30) mmol/L BUN 36 H (7-17) mg/dL Glucose 126 H (74-99) mg/dL POC Glucose (mg/dL) 140 H (70-110) mg/dL Total Protein (6.3-8.2) g/dL Albumin (3.5-5.0) g/dL 01/10/22 01/10/22 01/10/22 Range/Units 04:10 05:29 05:46 RBC (3.80-5.40) m/uL Hgb (11.4-16.0) gm/dL Hct (34.0-46.0) % MCHC (31.0-37.0) g/dL RDW (11.5-15.5) % Neutrophils # (1.3-7.7) k/uL Lymphocytes # (1.0-4.8) k/uL ABG pH 7.55 H (7.35-7.45) ABG HCO3 32 H (21-25) mmol/L ABG Total CO2 33 H (19-24) mmol/L ABG O2 Saturation 98.0 H (94-97) % Potassium (3.5-5.1) mmol/L Carbon Dioxide 31 H (22-30) mmol/L BUN 36 H (7-17) mg/dL Glucose 165 H (74-99) mg/dL POC Glucose (mg/dL) 160 H (70-110) mg/dL Total Protein 5.5 L (6.3-8.2) g/dL Albumin 2.7 L (3.5-5.0) g/dL 01/10/22 Range/Units 11:35 RBC (3.80-5.40) m/uL Hgb (11.4-16.0) gm/dL Hct (34.0-46.0) % MCHC (31.0-37.0) g/dL RDW (11.5-15.5) % Neutrophils # (1.3-7.7) k/uL Lymphocytes # (1.0-4.8) k/uL ABG pH (7.35-7.45) ABG HCO3 (21-25) mmol/L ABG Total CO2 (19-24) mmol/L ABG O2 Saturation (94-97) % Potassium (3.5-5.1) mmol/L Carbon Dioxide (22-30) mmol/L BUN (7-17) mg/dL Glucose (74-99) mg/dL POC Glucose (mg/dL) 178 H (70-110) mg/dL Total Protein (6.3-8.2) g/dL Albumin (3.5-5.0) g/dL Microbiology - Last 24 Hours (Table) 01/09/22 09:13 Gram Stain - Preliminary Bronchial Washings - Left Bronchial Washings Culture - Preliminary 01/09/22 09:13 Acid Fast Bacilli Smear - Final Bronchial Washings - Left Acid Fast Bacilli Culture - Preliminary 01/09/22 09:13 Fungal Culture - Preliminary Bronchial Washings - Left 01/08/22 23:17 Urine Culture - Preliminary Urine,Voided Assessment and Plan Assessment: Impression: Acute hypoxic and hypercapnic respiratory failure secondary to acute exacerbation of COPD, acute systolic congestive heart failure, and now mucous plugging involving the left mainstem bronchus with complete collapse of the left lung. Suspect left lower lobe pneumonia, likely hospital-acquired or healthcare acquired pneumonia. Acute non-ST elevation myocardial infarction Acute metabolic encephalopathy History of CVA Paroxysmal atrial fibrillation History of severe underlying COPD Benign essential hypertension History of right breast cancer with right mastectomy Coronary artery disease and previous stenting and three-vessel CABG in November 2020 Mitral valve disease with mild to moderate mitral regurgitation Ischemic cardiomyopathy and LV dysfunction and ejection fraction of 45% Ongoing tobacco dependence syndrome. Status post bronchoscopy and lavage as well as extraction of mucous plugs in the left mainstem bronchus however the patient required intubation and mechanical ventilation. vocal cord tumor noted during intubation, needs to have further evaluation by ENT, discussed with Dr. Alvarez, he will evaluate the patient postextubation Recommendation: Continue ventilatory support Continue bronchodilators Continue Zosyn empirically. For her presumptive left sided pneumonia and mucous plugs. Cultures are pending from the bronchoscopy/lavage ENT should eventually evaluate for her vocal cords tumor and this is to be done after the patient is extubated. Prognosis is extremely poor and guarded, Patient is critically ill. Critical care time is over 30 minutes not including the time spent on procedures today Time with Patient: Greater than 30
[2022-01-10 18:06] LABS: Glucose,Whole Blood 165 mg/dL (70-110)
[2022-01-10] MEDS: IPRATROPIUM-ALBUTEROL 3 ML NEB INHALATION PRN (19:50)
[2022-01-10] MEDS: ESCITALOPRAM 5 MG TAB PO SCH (20:01)
[2022-01-10] MEDS: ATORVASTATIN 80 MG TAB PO SCH (20:01)
[2022-01-10] MEDS: ACETAMINOPHEN TAB 500 MG TAB PO PRN (21:01)
[2022-01-10] MEDS: NOREPINEPHRINE 4 MG in SODIUM CHLORIDE 0.9% 250 ML IV SCH ×2 (21:55→23:43)
[2022-01-10 23:55] LABS: Glucose,Whole Blood 203 mg/dL (70-110)
[2022-01-11] MEDS: PIPERACILLIN-TAZOBACTAM 3.375 GM in SODIUM CHLORIDE 0.9% 100 ML IVPB SCH ×3 (02:28→23:22)
[2022-01-11] MEDS: HYDROmorphone 1 MG/ML 1 ML SYRINGE IVP PRN ×2 (03:41→15:47)
[2022-01-11] MEDS: SODIUM CHLORIDE 0.9% 1,000 ML IV SCH (03:51)
[2022-01-11 04:34] LABS: Anisocytosis Slight; Basophils % (A) 0 %; Eosinophils % (A) 0 %; HCT 28.5 % (34.0-46.0); HGB 8.4 gm/dL (11.4-16.0); Hypochromasia Marked; Lymphocytes # (A) 0.4 k/uL (1.0-4.8); Lymphocytes % (A) 5 %; MCH 25.3 pg (25.0-35.0); MCHC 29.4 g/dL (31.0-37.0); Mean Platelet Volume 9.5; Monocytes # (A) 0.3 k/uL (0-1.0); Monocytes % (A) 4 %; Neutrophils # (A) 7.1 k/uL (1.3-7.7); Neutrophils % (A) 90 %; Platelet Count 193 k/uL (150-450); RBC 3.31 m/uL (3.80-5.40)
[2022-01-11 04:45] LABS: ALT 17 U/L (4-34); African American GFR (CKD) >90 (>60 ml/min/1.73 sqM); Albumin 2.4 g/dL (3.5-5.0); Anion Gap 5 mmol/L; Blood Urea Nitrogen 40 mg/dL (7-17); Calcium 8.2 mg/dL (8.4-10.2); Carbon Dioxide 28 mmol/L (22-30); Chloride 110 mmol/L (98-107); Glucose 161 mg/dL (74-99); Non-African American GFR(CKD) 90 (>60 ml/min/1.73 sqM); Sodium 143 mmol/L (137-145); Total Bilirubin 0.6 mg/dL (0.2-1.3); Total Protein 5.2 g/dL (6.3-8.2)
[2022-01-11 04:47] LABS: AST 30 U/L (14-36); Alkaline Phosphatase 55 U/L (38-126); Potassium 3.5 mmol/L (3.5-5.1)
[2022-01-11] MEDS: POTASSIUM BICARBONATE/CIT AC 20 MEQ TABLET.EFF NG-TUBE SCH ×4 (05:15→22:59)
[2022-01-11 05:26] LABS: Glucose,Whole Blood 185 mg/dL (70-110)
[2022-01-11 05:43] LABS: ABG Base Excess 7.6 mmol/L; ABG HCO3 30 mmol/L (21-25); ABG Oxygen Saturation 99.2 % (94-97); ABG PCO2 37 mmHg (35-45); ABG PH 7.52 (7.35-7.45); ABG PO2 107 mmHg (83-108); ABG TCO2 32 mmol/L (19-24)
[2022-01-11 05:45] LABS: Allen Test Performed? no
[2022-01-11] MEDS: INSULIN ASPART (NovoLOG) 100 UNIT/ML VIAL SQ SCH ×4 (05:53→23:59)
[2022-01-11] MEDS: IPRATROPIUM 0.5 MG/2.5 ML NEBU INHALATION SCH ×4 (07:25→19:17)
--- NOTE | 2022-01-11 07:31 | XR ---
EXAMINATION TYPE: XR chest 1V portable DATE OF EXAM: 01/11/2022 COMPARISON: Chest x-ray 01/10/2022 HISTORY: Intubated TECHNIQUE: Single frontal view of the chest is obtained. FINDINGS: Endotracheal tube and NG tube are in place overlying appropriate positions, the NG tube peres s been advanced in the interval. Left atrial appendage clip placement, right jugular central venous c atheter are again noted. Bilateral airspace disease is suspected, there are overlying artifacts. No e vident pneumothorax. Aorta is dense. Bones are stable. IMPRESSION: Correlate for congestive heart failure versus pneumonia, difficult to exclude effusion
[2022-01-11] MEDS: PANTOPRAZOLE 40 MG/10 ML VIAL IVP SCH (08:52)
[2022-01-11] MEDS: CHLORHEXIDINE GLUCONATE 15 ML CUP MUCOUS MEM SCH ×2 (08:52→21:26)
[2022-01-11] MEDS: methylPREDNISolone SOD SUCCI 40 MG/ML 1 ML VIAL IV SCH ×3 (08:53→23:22)
[2022-01-11] MEDS: APIXABAN 5 MG TAB PO SCH ×2 (08:53→21:26)
[2022-01-11] MEDS: FOLIC ACID 1 MG TAB PO SCH (08:53)
[2022-01-11] MEDS: ASPIRIN 81 MG PO SCH (08:53)
[2022-01-11] MEDS: GABAPENTIN 100 MG CAP PO SCH ×3 (08:54→21:26)
[2022-01-11] MEDS: BACLOFEN 10 MG TAB PO SCH ×3 (08:54→21:26)
[2022-01-11] MEDS: LETROZOLE 2.5 MG TAB PO SCH (08:55)
[2022-01-11] MEDS: METOPROLOL TARTRATE 25 MG TAB PO SCH ×2 (09:16→21:25)
--- NOTE | 2022-01-11 11:36 | P.PN ---
Subjective Progress Note Date: 01/11/22 Patient is a pleasant 46-year-old female came in with compensative shortness of breath and orthopnea, patient does have history of congestive heart failure EF of around 25-30% in the past patient has ischemic cardiomyopathy had heart attacks in the past and CABG in the past. Patient is found to have elevated BNP of 10,000 and the patient the chest x-ray is consistent with congestive heart failure with bilateral pleural effusions and primary congestion. Patient the quit smoking many months ago started smoking again last July. Chest x-ray did not show any pneumonia patient is comparing of coffee per day sputum production. had the atrial fibrillation with rapid ventricular rate on admission was on Cardizem uses metoprolol Cardizem is being this can urine patient's metoprolol dose will be increased cardiology was consulted. 01/06/2022 Patient evaluated today resting in bed. Overall she is feeling better. She continues on oxygen via nasal cannula 2-3 L, oxygen saturation is 99% and this can be weaned off probably. She has been started on eliquis. Metoprolol has been increased to 75 mg PO BID and she is now in sinus rhythm. She uses trelegy inhaler at home which is not stocked here for this reason she is on symbicort. Echocardiogram has been completed showing EF of 45% with inferobasal hypokinesia, there is mild to moderate mitral regurgitation. She continues on IV lasix BID, has been down -1.4 Liters in the last 24 hours. Labs today showing sodium 139, potassium 4.2, BUN 18, creatinine 0.86, magnesium 1.6. Cardiology is recommending cardiac cath when she is medically stable. 01/07/2022 Patient elevated today resting in bed, she is alert 1 which is a change in mental status. 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 Brain CT without contrast was completed today which shows no hemorrhage and no acute stroke. Continue to monitor neuro status will start patient on a small dose of Seroquel the evening for some possible acute hospital delirium. Patient is on Lexapro and accommodation can prolong QT interval which was reviewed and her QTC is showing 385 on EKG. Labs show serum sodium 139, potassium 3.7, chloride 97, CO2 33, BUN 19, creatinine 0.91. Blood pressure today 134/67. IV lasix decreased to daily. 01/08/2022 Patient evaluated today and her mentation has improved slighty she is alert x 2 now. She underwent repeat brain CT 01/07/2022 in the evening redemonstrating right parietal infarct with encephalomalacia, however, this CT reports continued evolution. No new areas for acute/subacute infarct. There is nonspecific white matter changes. Patient to be evaluated today by neurology. She is afebrile, heart rate 83, blood pressure 159/71, 96% on 3L Nasal cannula, she was dyspneic today on exam, chest xray was completed showing some basilar atelectasis. Labs today showing sodium 140, potassium 4.2, CO2 increased up to 37, ABG's were ordered last night showing PO2 of 72, HCO3 34, total CO2 36, pCO2 58. She has been transitioned to oral lasix today. 01/09/2022 Patient was upgraded to intensive care unit and placed on BiPAP yesterday afternoon, she was started on precedex gtt through out the night for acute agitation. Repeat ABGs were completed showing pH 7.55, pCO2 35, pO2 144, HCO3 30, total CO2 32, oxygen saturation 100%. Repeat troponin level showing 0.503 which is trending down, d-dimer was completed at 2.19. Patient had a chest xray completed this morning showing opacification of the left lung suggesting comple te collapse of the left lung with suspected mucous plug or obstruction. 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 ENT was consulted for this. Bronchoscopy per reports showed mucous plugging in the left mainstream bronchus which was extracted and Patient is now on mechanical ventilator with FiO2 of 50%. Repeat chest xray post bronchoscopy shows improved aeration of the left upper lobe with persistent abnormal density in the lower 2/3 of the chest. Labs today showing white count 11.3, hgb 9.8, sodium 142, potassium 3.5, BUN 7, creatinine 3.2. Glucose in the 120s. Urinalysis showing cloudy urine with trace protein, mo derate blood, ketones, large leukocyte esterase, WC 149, many white blood cell clumps, high hyaline casts. Urine culture is pending. She has been started on IV zosyn empirically, as well as IV solumedrol 40 mg Q8h, symbicort, duonebs. Lasix is on hold and she is receiving normal saline at 50 mLs per hour. Precedex has been discontinued. She is being followed by neurology, pulmonary music therapist, an d cardiology services. 01/10/2022 Patient continues to be monitored in the intensive care unit on mechanical ventilator with FiO2 40%. She is status post bronchoscopy with evacuation of mucous plugging left mainstem bronchus. Today her chest xray shows improvement in aeration with persistent abnormal density in the left lung base. No wheezing noted today, she does sound rhonchorous today with JVD evident. She continues off lasix. Labs today showing white count of 9.9, hemoglobin 9.5, sodium 142, potassium 3.8, CO2 31, BUN 36, creatinine 0.90. Blood glucoses in the 160s. She has T-Max 101.3 in the last 24 hours, heart rate showing sinus kathrin cardia in the 50s, blood pressure 88/40, 97% oxygenation, Cardiology is following the patient as well as neurology and pulmonary music therapist. She continues on IV zosyn, IV propofol, she is requiring pressor support. Continues on IV solumedrol and blood sugars will be monitored closely. Dietary has also been consulted and patient will be started on enteral tube feedings. Family has changed code status to mechanical ventilation only. She is wiggling toes on examination. 01/11/2022 Patient continues to be monitored in the intensive care unit. She is currently intubated with an FiO2 of 40% oxygen saturations 99-100%. She has been febrile throughout the evening with T-Max 100.6. Patient complains of difficulty in breathing and asking to be suctioned. Continues with significant secretions. Patients chest xray today shows correlation for congestive heart failure versus pneumonia. She has been started on enteral tube feedings with novolog coverage every 6 hours. Blood glucose in the 180s. A small dose of levemir was given today. She continues on IV solu-medrol 40 mg Q8h. She is off pressor support and blood pressures are 115/50. She is sinus rhythm with ST depression and inverted T Wave. Urine culture has finalized showing E.Coli and Klebsiella, and bronchial washing showing E.Coli. Antibiotics have been changed to Ceftriaxone 2gm Q24 hours. We will order a blood culture today as well. 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 Cardiology is following the patient and lasix continues to be on hold. She is in a positive fluid balance of about 1200 mL over the last few days with evidence for JVD. She is continued on Labs reviewed; White count is 8.4 today, hemoglobin 8.4, her sodium was 143, potassium 3.5 and repeat 4.1 after supplementation, BUN 40, creatinine 0.61. Unable to complete full review of systems as patient is intubated All inpatient medications were reviewed and appropriate changes in these medications as dictated in the interval history and assessment and plan. PHYSICAL EXAMINATION: GENERAL: The patient continues in intensive care unit on mechanical ventilator. HEENT: Pupils are round and equally reacting to light. EOMI. No scleral icterus. No conjunctival pallor. Normocephalic, atraumatic. No pharyngeal erythema. No thyromegaly. CARDIOVASCULAR: S1 and S2 present. No murmurs, rubs, or gallops. Elevated JVD PULMONARY: Coarse rhonchi throughout, ABDOMEN: Soft, nontender, nondistended, normoactive bowel sounds. No palpable organomegaly. MUSCULOSKELETAL: No joint swelling or deformity. EXTREMITIES: No cyanosis, clubbing, no pedal edema, wiggling toes NEUROLOGICAL: Patient is intubated. SKIN: No rashes. Assessment and plan -Acute hypoxic and hypercapnic Respiratory Failure patient is on mechanical ventilator being monitored in the intensive care unit with 40% FiO2. She is status post bronchoscopy which reveals mucous plugging of left mainstem bronchus. Left lung aeration has improved on imaging. Culture showing E.Coli and antibiotics have been adjusted to Rocephin. -Acute CHF with chronic systolic dysfunction, lasix is on hold -Urinary tract infection with sepsis, E.Coli and Klebsiella finalized on cultures, antibiotics have been adjusted to rocephin -Elevated troponins, likely NSTEMI per cardiology will most likely require cardiac cath when medically sable -Atrial fibrillation with rapid rate patient has a known paroxysmal A. fib does take Eliquis for anticoagulation. Patient is continued on metoprolol. -COPD with acute exacerbation patient was started on inhaled steroids, she is maintained on trelegy outpatient, IV solumedrol has been added today. -Altered mental status with repeat brain CT showing continued evolution of right parietal infarct with encephalomalacia, most likely this is toxic metabolic enc ephalopathy multifactorial from urinary tract infection, pneumonia and heart failure, improving. 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 Patient was treated with Cardizem gtt and IV lasix on the stepdown unit and was eventually transitioned to oral lasix and po metoprolol. On 01/08 patient Developed altered mentation and brain CT was completed which did not show acute stroke or hemorrhage. Urinalysis was completed, and also patient had a chest xray completed showing a completed collapse of left lung. She is post bronchoscopy with pulmonary music therapist. Patient continue to be monitored in the intensive care unit on mechanical ventilator with FiO2 40%. Per reports patient may need repeat bronchoscopy. Lasix has been placed on hold and the patient is being gently hydrated with normal saline. She continues on IV Solu-Medrol 40 mg every 8 hours. Antibiotics have been adjusted to IV rocephin as urine and bronchial washing cultures are showing E.Coli and Klebsiella. She is on a propofol drip for sedation, pressor support is currently on hold. Patient continues on enteral tube feedings and blood glucose will be monitored closely. She is on sliding scale Q6 and small dose of levemir added today. Recommend tight glycemic control. She is being followed by multiple consultations including pulmonary music therapist, cardiology, neurology, and ENT. Follow up labs in AM including CBC, CMP. Blood culture has been ordered. Code status per family includes mechanical ventilation only. Family does not want defibrillation, trach, peg. Prognosis remains guarded for this patient. The impression and plan of care has been dictated by Carlene Loera Nurse Practitioner as directed. Dr. Kacey MD I have performed a history and physical examination and medical decision making of this patient, discussed the same with the dictator, and agree with the dictators assessment and plan as written, documented as a scribe. Based on total visit time, I have performed more than 50% of this visit. Objective - Vital Signs Vital signs: Vital Signs Temp 99.0 F 01/11/22 04:00 Pulse 58 L 01/11/22 07:40 Resp 15 01/11/22 07:00 BP 115/50 01/11/22 07:00 Pulse Ox 99 01/11/22 07:00 FiO2 40 01/11/22 07:22 Intake & Output 01/10/22 01/11/22 01/11/22 18:59 06:59 18:59 Intake Total 716.154 7310.936 243.628 Output Total 465 545 150 Balance 503.171 583.936 93.628 Weight 52.7 kg 53.6 kg Intake: IV 600 600 150 Sodium Chloride 0.9% 1, 600 600 150 000 ml @ 50 mls/hr IV . Q20H M[facility] ANNE Rx#:[id number] Intake, IV Titration 58.171 17.936 11.628 Amount Norepinephrine 4 mg In 13.36 17.936 11.628 Sodium Chloride 0.9% 250 ml @ 0.05 MCG/KG/MIN 9. 277 mls/hr IV .Q24H MARY ANNE Rx#:[id number] propofoL 1,000 mg In 44.811 Empty Bag 1 bag @ 50 MCG/ KG/MIN 14.61 mls/hr IV . Q6H51M MARY ANNE Rx#:[id number] Tube Feeding 310 481 82 Other 30 Output: Urine 465 545 150 Other: Voiding Method Indwelling Catheter Indwelling Catheter ABP, PAP, CO, CI - Last Documented Arterial Blood Pressure 142/43 - Labs CBC & Chem 7: 01/11/22 04:20 01/11/22 07:00 Labs: Abnormal Lab Results - Last 24 Hours (Table) 01/10/22 01/10/22 01/10/22 Range/Units 11:35 18:04 23:52 RBC (3.80-5.40) m/uL Hgb (11.4-16.0) gm/dL Hct (34.0-46.0) % MCHC (31.0-37.0) g/dL RDW (11.5-15.5) % Lymphocytes # (1.0-4.8) k/uL ABG pH (7.35-7.45) ABG HCO3 (21-25) mmol/L ABG Total CO2 (19-24) mmol/L ABG O2 Saturation (94-97) % Chloride (98-107) mmol/L BUN (7-17) mg/dL Glucose (74-99) mg/dL POC Glucose (mg/dL) 178 H 165 H 203 H (70-110) mg/dL Calcium (8.4-10.2) mg/dL Total Protein (6.3-8.2) g/dL Albumin (3.5-5.0) g/dL 01/11/22 01/11/22 01/11/22 Range/Units 04:20 04:20 05:25 RBC 3.31 L (3.80-5.40) m/uL Hgb 8.4 L (11.4-16.0) gm/dL Hct 28.5 L (34.0-46.0) % MCHC 29.4 L (31.0-37.0) g/dL RDW 18.0 H (11.5-15.5) % Lymphocytes # 0.4 L (1.0-4.8) k/uL ABG pH (7.35-7.45) ABG HCO3 (21-25) mmol/L ABG Total CO2 (19-24) mmol/L ABG O2 Saturation (94-97) % Chloride 110 H (98-107) mmol/L BUN 40 H (7-17) mg/dL Glucose 161 H (74-99) mg/dL POC Glucose (mg/dL) 185 H (70-110) mg/dL Calcium 8.2 L (8.4-10.2) mg/dL Total Protein 5.2 L (6.3-8.2) g/dL Albumin 2.4 L (3.5-5.0) g/dL 01/11/22 Range/Units 05:40 RBC (3.80-5.40) m/uL Hgb (11.4-16.0) gm/dL Hct (34.0-46.0) % MCHC (31.0-37.0) g/dL RDW (11.5-15.5) % Lymphocytes # (1.0-4.8) k/uL ABG pH 7.52 H (7.35-7.45) ABG HCO3 30 H (21-25) mmol/L ABG Total CO2 32 H (19-24) mmol/L ABG O2 Saturation 99.2 H (94-97) % Chloride (98-107) mmol/L BUN (7-17) mg/dL Glucose (74-99) mg/dL POC Glucose (mg/dL) (70-110) mg/dL Calcium (8.4-10.2) mg/dL Total Protein (6.3-8.2) g/dL Albumin (3.5-5.0) g/dL Microbiology - Last 24 Hours (Table) 01/09/22 09:13 Gram Stain - Final Bronchial Washings - Left Bronchial Washings Culture - Final Escherichia coli 01/08/22 23:17 Urine Culture - Preliminary Urine,Voided Gram Neg Bacilli Assessment and Plan Time with Patient: Less than 30
[2022-01-11 11:47] LABS: Glucose,Whole Blood 141 mg/dL (70-110)
--- NOTE | 2022-01-11 12:02 | P.PN ---
Subjective Progress Note Date: 01/11/22 Principal diagnosis: Acute hypoxic and hypercapnic respiratory failure, multifactorial secondary to COPD exacerbation and systolic dysfunction heart failure. 76-year-old female patient that was admitted thru the emergency department on 01/04/2022 for evaluation of chest pain, and shortness of breath. She felt like she couldn't catch her breath, and she was breathing really hard, and having palpitations. Has extensive medical history including paroxysmal atrial fibrillation on Eliquis, LV thrombus, TIA, coronary artery disease with history of stenting and three-vessel coronary artery bypass in November 2020 and the left atrial appendage clipping, chronic congestive heart failure with systolic dysfunction, ischemic cardiomyopathy, mitral valve prolapse with previous surgery, hypertension, hyperlipidemia, previous episode of pneumonia, COPD, peripheral vascular disease with previous bilateral iliac arthrectomy and stent placement, breast cancer with history of right mastectomy currently on Femara. Patient also has history of multiple sclerosis, and obstructive sleep apnea without CPAP on outpatient basis. Chest x-ray on admission showed cardiomegaly, blunting of the costophrenic angles more so on the left side, pulmonary rest or congestion consistent with congestive heart failure with pleural effusions. EKG showed A. fib with RVR. Lab evaluation showed a white blood cell, 7.9, hemoglobin is 9.1, INR is 1.2, potassium is 3.3, respiratory electrolytes were unremarkable, renal profile was within normal limits, lactic acid was 1.7, patient had troponin elevation of 0.067, 2.830, 2.9-0, and proBNP of 10,004 100. The COVID-19 influenza A and B were all negative. Echocardiogram showed improved EF at 45-50% compared previously documented EF of 25-30%. There was moderately increased left atrial volume, mild to moderate mitral regurgitation, there was inferobasal hypokinesia, no evidence of pericardial effusion. Patient was started on diuretics, she was placed on Cardizem infusion for rate control, and she was already on oral anticoagulation for history of paroxysmal atrial fibrillation. Patient was noted to have alteration of her mental status that was noted 3 days ago. Patient's breathing also got worse, more labored and diaphoretic. Patient was only able to say yes to every question which was a significant change from baseline. No seizures. No focal neurological deficit was noted. CT of the head from 01/07/2022 showed brain volume loss changes, chronic ischemic changes on chronic right occipital infarct. There was no acute process. CT of the brain CT was obtained from the same date on 01/07/2022 showed continued evolution of the right parietal infarct with encephalomalacia. No new areas of suspicious for acute subacute infarct, diffuse nonspecific white matter. Patient does have history of previous CVA from July 2021. She was seen in evaluation by neurology, and it was felt that her mental status was due to toxic metabolic encephalopathy. He was also diagnosed with acute non-ST elevated myocardial infarction. Today we were called to the bedside for evaluation of worsening shortness of breath, patient is awake, but is not able to answer any questions, she has obviously increased work of breathing, with accessory muscle use. At the time of our arrival to the bedside patient is having blood gas drawn, she is currently on 3 L of oxygen with pulse ox of 94%, she is afebrile, she remains in A. fib, chest x-ray this morning showing cardiomegaly, no evident pneumothorax or sizable pleural effusion, patchy densi ties at the left lung base, suspect some improvement in airspace disease. Yesterday patient had a blood gas that showed pO2 of 72, pCO2 of 58, and pH of 7.38 and this was done and FiO2 of 35%. Her last set of blood work from 01/07/2022 showed normal white count of 9.7, hemoglobin is 10.5, CO2 is 37, the rest of the electrolytes were within normal limits, B1 is 22, creatinine 0.99. Ammonia level is less than 9, LFTs were within normal limits. Patient has had no fever. Blood pressure is 149/79. Patient is having retractive respirations of the abdomen, and she will be placed on BiPAP support, with pending blood gases and transferred to the intensive care unit. Patient was reevaluated today on 01/09/2022, patient is on BiPAP, she is also on Precedex as she was getting extremely agitated last night. However the patient had developed apparently complete collapse of the left lung, and obviously based on the chest x-ray, the patient has mucous plugging involving the left mainstem bronchus. Indeed the patient underwent bronchoscopy while the patient was intubated, and revealed evidence of significant mucous plugs in the left mainstem bronchus,. His secretions, these were suctioned in the left lung was lavaged. Kept on mechanical ventilation to the address and she may need another bronchoscopy in the next 24 hours. She is now on mechanical ventilation assist control rate 24th of volume 300 FiO2 on the percent and PEEP of 5. He is also on propofol drip and IV fluid 0.9 normal saline at 50 mL per hour. Chest x-ray showed excellent improvement over a bronchoscopy and lavage of the left lung. 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 Hence ENT was consulted, consult is pending. Labs today showed W set of 11.3 hemoglobin 9.8. ABG post intubation on 50% showed a pO2 of 74 pCO2 43 pH of 7.48. Basic metabolic profile is normal renal profile is normal. Reevaluated today on 01/10/22, patient remains in the ICU, intubated and mechanically ventilated. Patient is on assist control rate of 24 tidal volume 350 FiO2 40% and PEEP of 5. Overnight the patient required small dose of norepinephrine at 0.04 mcg/kg/m. She is sedated, on propofol at 7.5 mcg/kg/h, patient is still receiving Zosyn for presumptive left sided pneumonia, and cultures are pending. ABG today showed a pO2 of 84 pCO2 37 pH of 7.55. Continues to have left lower lobe consolidation on chest x-ray, however dramatic improvement noted on the chest x-ray in comparison to her chest x-ray when she was admitted to the ICU showing a complete collapse of the left lung. WBC count today is 9.9 hemoglobin is 9.5. Basic metabolic profile is relatively normal. Patient is on enteral feeding. Tolerating enteral feeding well. 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 Patient is awake, however she seems to be extremely restless, agitated, and tachypneic. Respiratory rate is in the mid 30s. Patient seems to be working hard to breathe although she is on assist control mode of mechanical ventilation. Hence I believe the patient is not quite ready to wean and extubate at this point yet. Her ventilator settings are assist control rate of 24 tidal volume 350 FiO2 40% PEEP of 5 and I cut down her FiO2 down to 35%. Her ABG showed a pO2 of 107 pCO2 37 pH of 7.52. Patient is now off sedation, and I recommended going back on sedation, as she is not quite ready to wean. Patient will be a difficult extubation, and she will likely be a failure to wean easily. She is on IV fluid in the form of point tenderness saline at 50 mL per hour. Chest x-ray showed significant improvement in her left lung opacification and left lower lobe pneumonia. However the chest x-ray is suggestive of mild perihilar interstitial edema. Bronchial washings are positive for E. coli and urine cultures are positive for E. coli and Klebsiella oxytoca. Both are sensitive to Zosyn, and the patient is already on Zosyn WBC count today is 8.0 hemoglobin is 8.4. Platelets are 193. Basic metabolic profile is relatively normal. BUN is 40 creatinine 0.61. Liver profile is basically unremarkable. Objective - Vital Signs Vital signs: Vital Signs Temp 99.0 F 01/11/22 04:00 Pulse 57 L 01/11/22 11:30 Resp 15 01/11/22 07:00 BP 115/50 01/11/22 07:00 Pulse Ox 99 01/11/22 07:00 FiO2 35 01/11/22 11:16 Intake & Output 01/10/22 01/11/22 01/11/22 18:59 06:59 18:59 Intake Total 831.317 6467.936 384.750 Output Total 465 545 280 Balance 503.171 583.936 104.750 Weight 52.7 kg 53.6 kg Intake: IV 600 600 250 Sodium Chloride 0.9% 1, 600 600 250 000 ml @ 50 mls/hr IV . Q20H MARY ANNE Rx#:[id number] Intake, IV Titration 58.171 17.936 11.750 Amount Norepinephrine 4 mg In 13.36 17.936 11.628 Sodium Chloride 0.9% 250 ml @ 0.05 MCG/KG/MIN 9. 277 mls/hr IV .Q24H MARY ANNE Rx#:[id number] propofoL 1,000 mg In 44.811 0.122 Empty Bag 1 bag @ 50 MCG/ KG/MIN 14.61 mls/hr IV . Q6H51M MARY ANNE Rx#:[id number] Tube Feeding 310 481 123 Other 30 Output: Urine 465 545 280 Other: Voiding Method Indwelling Catheter Indwelling Catheter ABP, PAP, CO, CI - Last Documented Arterial Blood Pressure 142/43 - Exam Physical Exam: Revealed a 76-year-old female, intubated, off sedation, seems to be agitated, restless. And tachypneic Head: Atraumatic, normocephalic. HEENT:[Neck is supple.] [No neck masses.] [No thyromegaly.] [No JVD.] Chest: [Diminished breath sound bilaterally, occasional wheezing noted bilaterally. Cardiac Exam: [Normal S1 and S2, no S3 gallop, no murmur.] Abdomen: [Soft, nontender, no megaly, no rebound, no guarding, normal bowel sounds.] Extremities: [No clubbing, no edema, no cyanosis.] Neurological Exam: Awake, restless, agitated, follows instructions. Psychiatric: Anxious mood, flat affect, mental status seems to be appropriate and she follows instructions. Skin: No rashes - Labs CBC & Chem 7: 01/11/22 04:20 01/11/22 07:00 Labs: Abnormal Lab Results - Last 24 Hours (Table) 01/10/22 01/10/22 01/11/22 Range/Units 18:04 23:52 04:20 RBC 3.31 L (3.80-5.40) m/uL Hgb 8.4 L (11.4-16.0) gm/dL Hct 28.5 L (34.0-46.0) % MCHC 29.4 L (31.0-37.0) g/dL RDW 18.0 H (11.5-15.5) % Lymphocytes # 0.4 L (1.0-4.8) k/uL ABG pH (7.35-7.45) ABG HCO3 (21-25) mmol/L ABG Total CO2 (19-24) mmol/L ABG O2 Saturation (94-97) % Chloride (98-107) mmol/L BUN (7-17) mg/dL Glucose (74-99) mg/dL POC Glucose (mg/dL) 165 H 203 H (70-110) mg/dL Calcium (8.4-10.2) mg/dL Total Protein (6.3-8.2) g/dL Albumin (3.5-5.0) g/dL 01/11/22 01/11/22 01/11/22 Range/Units 04:20 05:25 05:40 RBC (3.80-5.40) m/uL Hgb (11.4-16.0) gm/dL Hct (34.0-46.0) % MCHC (31.0-37.0) g/dL RDW (11.5-15.5) % Lymphocytes # (1.0-4.8) k/uL ABG pH 7.52 H (7.35-7.45) ABG HCO3 30 H (21-25) mmol/L ABG Total CO2 32 H (19-24) mmol/L ABG O2 Saturation 99.2 H (94-97) % Chloride 110 H (98-107) mmol/L BUN 40 H (7-17) mg/dL Glucose 161 H (74-99) mg/dL POC Glucose (mg/dL) 185 H (70-110) mg/dL Calcium 8.2 L (8.4-10.2) mg/dL Total Protein 5.2 L (6.3-8.2) g/dL Albumin 2.4 L (3.5-5.0) g/dL 01/11/22 Range/Units 11:45 RBC (3.80-5.40) m/uL Hgb (11.4-16.0) gm/dL Hct (34.0-46.0) % MCHC (31.0-37.0) g/dL RDW (11.5-15.5) % Lymphocytes # (1.0-4.8) k/uL ABG pH (7.35-7.45) ABG HCO3 (21-25) mmol/L ABG Total CO2 (19-24) mmol/L ABG O2 Saturation (94-97) % Chloride (98-107) mmol/L BUN (7-17) mg/dL Glucose (74-99) mg/dL POC Glucose (mg/dL) 141 H (70-110) mg/dL Calcium (8.4-10.2) mg/dL Total Protein (6.3-8.2) g/dL Albumin (3.5-5.0) g/dL Microbiology - Last 24 Hours (Table) 01/08/22 23:17 Urine Culture - Final Urine,Voided Escherichia coli Klebsiella oxytoca 01/09/22 09:13 Gram Stain - Final Bronchial Washings - Left Bronchial Washings Culture - Final Escherichia coli Assessment and Plan Assessment: Impression: Acute hypoxic and hypercapnic respiratory failure secondary to acute exacerbation of COPD, acute systolic congestive heart failure, and now mucous plugging involving the left mainstem bronchus with complete collapse of the left lung. Suspect left lower lobe pneumonia, likely hospital-acquired or healthcare acquired pneumonia. Patient has E. coli pneumonia. Acute non-ST elevation myocardial infarction Acute metabolic encephalopathy History of CVA Paroxysmal atrial fibrillation History of severe underlying COPD Benign essential hypertension History of right breast cancer with right mastectomy Coronary artery disease and previous stenting and three-vessel CABG in November 2020 Mitral valve disease with mild to moderate mitral regurgitation Ischemic cardiomyopathy and LV dysfunction and ejection fraction of 45% Ongoing tobacco dependence syndrome. Status post bronchoscopy and lavage as well as extraction of mucous plugs in the left mainstem bronchus however the patient required intubation and mechanical ventilation. vocal cord tumor noted during intubation, needs to have further evaluation by ENT, discussed with Dr. Alvarez, he will evaluate the patient postextubation Acute urinary tract infection secondary to E. coli and Klebsiella oxytoca. Recommendation: Continue ventilatory support, patient is not ready to wean and extubate at this point. Hence I will keep on mechanical ventilation. Recommend gentle diuresis. Continue bronchodilators Continue GI and DVT prophylaxis. Gentle diuresis Continue nutritional support/enteral feeding. Continue Zosyn for her E. coli pneumonia and for her urinary tract infection. ENT aware of her tumor next to the vocal cords. Will evaluate post extubation Prognosis is extremely poor and guarded, Patient is critically ill. Patient is not ready to wean. Critical care time is over 30 minutes not including the time spent on procedures today Time with Patient: Greater than 30
[2022-01-11 12:06] LABS: % Iron Saturation 2.9 (12.00-45.00)
[2022-01-11] MEDS: FUROSEMIDE 10 MG/ML 2 ML VIAL IV SCH ×2 (12:53→21:45)
--- NOTE | 2022-01-11 14:37 | PN ---
PROGRESS NOTE FOLLOW-UP NOTE: Sharmila remains intubated on vent without any significant change in her condition. She remains in sinus rhythm. Heart rate is 60 beats per minute. Blood pressure is 139/40, respiratory rate is 24. Chest exam reveals diminished air entry bilaterally. She is mechanically ventilated with an O2 saturation of 97%. Heart exam reveals first and second heart sounds. No gallop. Examination of extremities did not reveal any edema. Peripheral pulses are felt. Labs show that the blood gases show a pH of 7.5, pO2 of 107. Potassium is 3.5 creatinine is 0.6. Patient is currently on Eliquis 5 b.i.d., Lipitor 80 daily, Lasix 20 mg IV q.12, Lopressor 75 b.i.d. and Solu-Medrol. ASSESSMENT: 1. Paroxysmal atrial fibrillation. 2. Vent-requiring respiratory failure. 3. Coronary artery disease, status post coronary artery bypass grafting. PLAN: Patient will continue current medications. MMODL / IJN: [id number] /
[2022-01-11 18:03] LABS: Glucose,Whole Blood 158 mg/dL (70-110)
[2022-01-11] MEDS: ESCITALOPRAM 5 MG TAB PO SCH (21:26)
[2022-01-11] MEDS: ATORVASTATIN 80 MG TAB PO SCH (21:26)
[2022-01-11] MEDS: INSULIN DETEMIR (LEVEMIR) 100 UNIT/ML SYR SQ SCH (21:26)
[2022-01-11 21:35] LABS: Magnesium 1.9 mg/dL (1.6-2.3); Potassium 3.2 mmol/L (3.5-5.1)
[2022-01-11] MEDS: NOREPINEPHRINE 4 MG in SODIUM CHLORIDE 0.9% 250 ML IV SCH (23:00)
[2022-01-11 23:58] LABS: Glucose,Whole Blood 197 mg/dL (70-110)
[2022-01-12 04:19] LABS: Anisocytosis Slight; Basophils % (A) 0 %; Eosinophils % (A) 0 %; HCT 28.8 % (34.0-46.0); HGB 8.6 gm/dL (11.4-16.0); Hypochromasia Marked; Lymphocytes # (A) 0.4 k/uL (1.0-4.8); Lymphocytes % (A) 4 %; MCH 25.1 pg (25.0-35.0); MCHC 29.9 g/dL (31.0-37.0); MCV 84.2 fL (80.0-100.0); Mean Platelet Volume 10.1; Monocytes # (A) 0.4 k/uL (0-1.0); Monocytes % (A) 4 %; Neutrophils # (A) 8.7 k/uL (1.3-7.7); Neutrophils % (A) 90 %; Platelet Count 194 k/uL (150-450); Poikilocytosis Slight; RBC 3.42 m/uL (3.80-5.40); RDW 17.9 % (11.5-15.5); WBC 9.7 k/uL (3.8-10.6)
[2022-01-12] MEDS: SODIUM CHLORIDE 0.9% 1,000 ML IV SCH (04:25)
[2022-01-12 04:37] LABS: ALT 24 U/L (4-34); AST 30 U/L (14-36); African American GFR (CKD) >90 (>60 ml/min/1.73 sqM); Albumin 2.6 g/dL (3.5-5.0); Alkaline Phosphatase 63 U/L (38-126); Anion Gap 4 mmol/L; Blood Urea Nitrogen 37 mg/dL (7-17); Calcium 8.3 mg/dL (8.4-10.2); Carbon Dioxide 31 mmol/L (22-30); Chloride 107 mmol/L (98-107); Glucose 147 mg/dL (74-99); Non-African American GFR(CKD) 86 (>60 ml/min/1.73 sqM); Potassium 3.5 mmol/L (3.5-5.1); Sodium 142 mmol/L (137-145); Total Bilirubin 0.4 mg/dL (0.2-1.3); Total Protein 5.4 g/dL (6.3-8.2)
[2022-01-12] MEDS: HYDROmorphone 1 MG/ML 1 ML SYRINGE IVP PRN ×4 (05:27→21:51)
[2022-01-12 05:31] LABS: Glucose,Whole Blood 153 mg/dL (70-110)
[2022-01-12] MEDS: INSULIN ASPART (NovoLOG) 100 UNIT/ML VIAL SQ SCH ×4 (05:32→23:54)
[2022-01-12] MEDS: POTASSIUM BICARBONATE/CIT AC 20 MEQ TABLET.EFF NG-TUBE SCH ×2 (05:32→06:44)
[2022-01-12 05:33] LABS: ABG Base Excess 8.9 mmol/L; ABG HCO3 31 mmol/L (21-25); ABG Oxygen Saturation 99.4 % (94-97); ABG PCO2 32 mmHg (35-45); ABG PO2 108 mmHg (83-108); ABG TCO2 32 mmol/L (19-24)
[2022-01-12 05:35] LABS: ABG PH 7.59 (7.35-7.45); Allen Test Performed? no
[2022-01-12] MEDS: IPRATROPIUM 0.5 MG/2.5 ML NEBU INHALATION SCH ×4 (07:10→19:10)
--- NOTE | 2022-01-12 07:46 | XR ---
EXAMINATION TYPE: XR chest 1V portable DATE OF EXAM: 01/12/2022 6:01 AM COMPARISON: Chest radiograph from one day prior. TECHNIQUE: XR chest 1V portable Portable AP radiograph of the chest.. CLINICAL INDICATION:Female, 76 years old with history of Tube placement; FINDINGS: Lungs/Pleura: There is no evidence of pleural effusion, focal consolidation, or pneumothorax. Pulmonary vascularity: Pulmonary vascular congestion. Heart/mediastinum: Cardiomediastinal silhouette is unremarkable. Left atrial occlusion device. Musculoskeletal: No acute osseous pathology. Other findings: None Lines/Tubes: Endotracheal tube with distal tip 6.6 cm above the bright Nasogastric tube with its distal tip and side-port projecting under the diaphragm. Right internal jugular central venous catheter with distal tip at the cavoatrial junction. IMPRESSION: 1. Similar multifocal airspace opacities. 2. Stable support line and tubes.
[2022-01-12] MEDS: BACLOFEN 10 MG TAB PO SCH ×3 (08:15→21:51)
[2022-01-12] MEDS: PIPERACILLIN-TAZOBACTAM 3.375 GM in SODIUM CHLORIDE 0.9% 100 ML IVPB SCH ×3 (08:16→23:53)
[2022-01-12] MEDS: methylPREDNISolone SOD SUCCI 40 MG/ML 1 ML VIAL IV SCH ×3 (08:16→23:53)
[2022-01-12] MEDS: FOLIC ACID 1 MG TAB PO SCH (08:16)
[2022-01-12] MEDS: ACETAMINOPHEN TAB 500 MG TAB PO PRN (08:16)
[2022-01-12] MEDS: APIXABAN 5 MG TAB PO SCH ×2 (08:16→20:18)
[2022-01-12] MEDS: GABAPENTIN 100 MG CAP PO SCH ×3 (08:17→21:51)
[2022-01-12] MEDS: FUROSEMIDE 10 MG/ML 2 ML VIAL IV SCH ×2 (08:17→20:18)
[2022-01-12] MEDS: METOPROLOL TARTRATE 25 MG TAB PO SCH ×2 (08:17→20:19)
[2022-01-12] MEDS: PANTOPRAZOLE 40 MG/10 ML VIAL IVP SCH (08:17)
[2022-01-12] MEDS: CHLORHEXIDINE GLUCONATE 15 ML CUP MUCOUS MEM SCH (08:17)
[2022-01-12] MEDS: LETROZOLE 2.5 MG TAB PO SCH (08:17)
[2022-01-12] MEDS: ASPIRIN 81 MG PO SCH (08:18)
--- NOTE | 2022-01-12 10:10 | P.PN ---
Subjective Progress Note Date: 01/12/22 Principal diagnosis: Acute hypoxic and hypercapnic respiratory failure, multifactorial secondary to COPD exacerbation and systolic dysfunction heart failure. 76-year-old female patient that was admitted thru the emergency department on 01/04/2022 for evaluation of chest pain, and shortness of breath. She felt like she couldn't catch her breath, and she was breathing really hard, and having palpitations. Has extensive medical history including paroxysmal atrial fibrillation on Eliquis, LV thrombus, TIA, coronary artery disease with history of stenting and three-vessel coronary artery bypass in November 2020 and the left atrial appendage clipping, chronic congestive heart failure with systolic dysfunction, ischemic cardiomyopathy, mitral valve prolapse with previous surgery, hypertension, hyperlipidemia, previous episode of pneumonia, COPD, peripheral vascular disease with previous bilateral iliac arthrectomy and stent placement, breast cancer with history of right mastectomy currently on Femara. Patient also has history of multiple sclerosis, and obstructive sleep apnea without CPAP on outpatient basis. Chest x-ray on admission showed cardiomegaly, blunting of the costophrenic angles more so on the left side, pulmonary rest or congestion consistent with congestive heart failure with pleural effusions. EKG showed A. fib with RVR. Lab evaluation showed a white blood cell, 7.9, hemoglobin is 9.1, INR is 1.2, potassium is 3.3, respiratory electrolytes were unremarkable, renal profile was within normal limits, lactic acid was 1.7, patient had troponin elevation of 0.067, 2.830, 2.9-0, and proBNP of 10,004 100. The COVID-19 influenza A and B were all negative. Echocardiogram showed improved EF at 45-50% compared previously documented EF of 25-30%. There was moderately increased left atrial volume, mild to moderate mitral regurgitation, there was inferobasal hypokinesia, no evidence of pericardial effusion. Patient was started on diuretics, she was placed on Cardizem infusion for rate control, and she was already on oral anticoagulation for history of paroxysmal atrial fibrillation. Patient was noted to have alteration of her mental status that was noted 3 days ago. Patient's breathing also got worse, more labored and diaphoretic. Patient was only able to say yes to every question which was a significant change from baseline. No seizures. No focal neurological deficit was noted. CT of the head from 01/07/2022 showed brain volume loss changes, chronic ischemic changes on chronic right occipital infarct. There was no acute process. CT of the brain CT was obtained from the same date on 01/07/2022 showed continued evolution of the right parietal infarct with encephalomalacia. No new areas of suspicious for acute subacute infarct, diffuse nonspecific white matter. Patient does have history of previous CVA from July 2021. She was seen in evaluation by neurology, and it was felt that her mental status was due to toxic metabolic encephalopathy. He was also diagnosed with acute non-ST elevated myocardial infarction. Today we were called to the bedside for evaluation of worsening shortness of breath, patient is awake, but is not able to answer any questions, she has obviously increased work of breathing, with accessory muscle use. At the time of our arrival to the bedside patient is having blood gas drawn, she is currently on 3 L of oxygen with pulse ox of 94%, she is afebrile, she remains in A. fib, chest x-ray this morning showing cardiomegaly, no evident pneumothorax or sizable pleural effusion, patchy densi ties at the left lung base, suspect some improvement in airspace disease. Yesterday patient had a blood gas that showed pO2 of 72, pCO2 of 58, and pH of 7.38 and this was done and FiO2 of 35%. Her last set of blood work from 01/07/2022 showed normal white count of 9.7, hemoglobin is 10.5, CO2 is 37, the rest of the electrolytes were within normal limits, B1 is 22, creatinine 0.99. Ammonia level is less than 9, LFTs were within normal limits. Patient has had no fever. Blood pressure is 149/79. Patient is having retractive respirations of the abdomen, and she will be placed on BiPAP support, with pending blood gases and transferred to the intensive care unit. Patient was reevaluated today on 01/09/2022, patient is on BiPAP, she is also on Precedex as she was getting extremely agitated last night. However the patient had developed apparently complete collapse of the left lung, and obviously based on the chest x-ray, the patient has mucous plugging involving the left mainstem bronchus. Indeed the patient underwent bronchoscopy while the patient was intubated, and revealed evidence of significant mucous plugs in the left mainstem bronchus,. His secretions, these were suctioned in the left lung was lavaged. Kept on mechanical ventilation to the address and she may need another bronchoscopy in the next 24 hours. She is now on mechanical ventilation assist control rate 24th of volume 300 FiO2 on the percent and PEEP of 5. He is also on propofol drip and IV fluid 0.9 normal saline at 50 mL per hour. Chest x-ray showed excellent improvement over a bronchoscopy and lavage of the left lung. 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 Hence ENT was consulted, consult is pending. Labs today showed W set of 11.3 hemoglobin 9.8. ABG post intubation on 50% showed a pO2 of 74 pCO2 43 pH of 7.48. Basic metabolic profile is normal renal profile is normal. Reevaluated today on 01/10/22, patient remains in the ICU, intubated and mechanically ventilated. Patient is on assist control rate of 24 tidal volume 350 FiO2 40% and PEEP of 5. Overnight the patient required small dose of norepinephrine at 0.04 mcg/kg/m. She is sedated, on propofol at 7.5 mcg/kg/h, patient is still receiving Zosyn for presumptive left sided pneumonia, and cultures are pending. ABG today showed a pO2 of 84 pCO2 37 pH of 7.55. Continues to have left lower lobe consolidation on chest x-ray, however dramatic improvement noted on the chest x-ray in comparison to her chest x-ray when she was admitted to the ICU showing a complete collapse of the left lung. WBC count today is 9.9 hemoglobin is 9.5. Basic metabolic profile is relatively normal. Patient is on enteral feeding. Tolerating enteral feeding well. 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 Patient is awake, however she seems to be extremely restless, agitated, and tachypneic. Respiratory rate is in the mid 30s. Patient seems to be working hard to breathe although she is on assist control mode of mechanical ventilation. Hence I believe the patient is not quite ready to wean and extubate at this point yet. Her ventilator settings are assist control rate of 24 tidal volume 350 FiO2 40% PEEP of 5 and I cut down her FiO2 down to 35%. Her ABG showed a pO2 of 107 pCO2 37 pH of 7.52. Patient is now off sedation, and I recommended going back on sedation, as she is not quite ready to wean. Patient will be a difficult extubation, and she will likely be a failure to wean easily. She is on IV fluid in the form of point tenderness saline at 50 mL per hour. Chest x-ray showed significant improvement in her left lung opacification and left lower lobe pneumonia. However the chest x-ray is suggestive of mild perihilar interstitial edema. Bronchial washings are positive for E. coli and urine cultures are positive for E. coli and Klebsiella oxytoca. Both are sensitive to Zosyn, and the patient is already on Zosyn WBC count today is 8.0 hemoglobin is 8.4. Platelets are 193. Basic metabolic profile is relatively normal. BUN is 40 creatinine 0.61. Liver profile is basically unremarkable. Reevaluated today on 01/12/2022, patient remains in the ICU, intubated and mechanically ventilated. She is off sedation this morning, patient is awake, and she follows simple instructions but she seems to be generally weak. She is on assist control rate of 24 tidal volume 350 FiO2 35% PEEP of 5. ABG showed a pO2 of 108 pCO2 of 32 pH of 7.59, patient had a baseline pCO2 in the 50s, hence I cut down her rate from 24-20 in the meantime I recommended giving the patient a trial of pressure support of 10 and CPAP. Since the patient is awake, at the she will receive a weaning trial, although my clinical suspicion that the patient will be difficult to wean based on her baseline pulmonary status and cardiac status. Chest x-ray showed evidence of pulmonary congestion/slight interstitial edema, and I recommended Lasix which is given twice a day. Patient is on vitamin Hpwe at 41 cc per hour. Tolerating that quite well. WBC count today is 9.7 hemoglobin 8.6. Basic metabolic profile is normal renal profile is normal. Bicarb is 31. Objective - Vital Signs Vital signs: Vital Signs Temp 98.8 F 01/12/22 08:00 Pulse 67 01/12/22 09:00 Resp 30 H 01/12/22 09:00 BP 115/50 01/11/22 07:00 Pulse Ox 100 01/12/22 09:00 FiO2 40 01/12/22 09:10 Intake & Output 01/11/22 01/12/22 01/12/22 18:59 06:59 18:59 Intake Total 730.986 351.109 163.036 Output Total 1560 1495 140 Balance -829.014 -1143.891 23.036 Weight 49.8 kg Intake: IV 450 240 140 Piperacillin-Tazobactam 3 100 100 .375 gm In Sodium Chloride 0.9% 100 ml @ 25 mls/hr IVPB Q8H [facility] Rx#: [id number] Sodium Chloride 0.9% 1, 350 240 40 000 ml @ 20 mls/hr IV . Q24H [facility] Rx#:[id number] Intake, IV Titration 75.986 111.109 23.036 Amount Norepinephrine 4 mg In 11.628 Sodium Chloride 0.9% 250 ml @ 0.05 MCG/KG/MIN 9. 277 mls/hr IV .Q24H [facility] Rx#:[id number] propofoL 1,000 mg In 64.358 111.109 23.036 Empty Bag 1 bag @ 50 MCG/ KG/MIN 14.61 mls/hr IV . Q6H51M [facility]NE Rx#:[id number] Tube Feeding 205 Output: Urine 1560 1495 140 Other: Voiding Method Indwelling Catheter Indwelling Catheter Indwelling Catheter # Bowel Movements 1 ABP, PAP, CO, CI - Last Documented Arterial Blood Pressure 179/62 - Exam Physical Exam: Revealed a 76-year-old female, intubated, awake, calm, in no distress, she is on assist control mode of mechanical ventilation, off propofol Head: Atraumatic, normocephalic. HEENT:[Neck is supple.] [No neck masses.] [No thyromegaly.] [No JVD.] Chest: [Diminished breath sound bilaterally, occasional wheezing noted bilaterally. Cardiac Exam: [Normal S1 and S2, no S3 gallop, no murmur.] Abdomen: [Soft, nontender, no megaly, no rebound, no guarding, normal bowel sounds.] Extremities: [No clubbing, no edema, no cyanosis.] Neurological Exam: Awake, restless, agitated, follows instructions. Psychiatric: Normal mood, flat affect, mental status seems to be appropriate and she follows instructions. Skin: No rashes - Labs CBC & Chem 7: 01/12/22 04:00 01/12/22 08:30 Labs: Abnormal Lab Results - Last 24 Hours (Table) 01/11/22 01/11/22 01/11/22 Range/Units 04:20 11:45 18:01 RBC (3.80-5.40) m/uL Hgb (11.4-16.0) gm/dL Hct (34.0-46.0) % MCHC (31.0-37.0) g/dL RDW (11.5-15.5) % Neutrophils # (1.3-7.7) k/uL Lymphocytes # (1.0-4.8) k/uL ABG pH (7.35-7.45) ABG pCO2 (35-45) mmHg ABG HCO3 (21-25) mmol/L ABG Total CO2 (19-24) mmol/L ABG O2 Saturation (94-97) % Potassium (3.5-5.1) mmol/L Carbon Dioxide (22-30) mmol/L BUN (7-17) mg/dL Glucose (74-99) mg/dL POC Glucose (mg/dL) 141 H 158 H (70-110) mg/dL Calcium (8.4-10.2) mg/dL Iron 8 L (50-170) ug/dL % Saturation 2.90 L (12.00-45.00) Total Protein (6.3-8.2) g/dL Albumin (3.5-5.0) g/dL 01/11/22 01/11/22 01/12/22 Range/Units 20:53 23:54 04:00 RBC 3.42 L (3.80-5.40) m/uL Hgb 8.6 L (11.4-16.0) gm/dL Hct 28.8 L (34.0-46.0) % MCHC 29.9 L (31.0-37.0) g/dL RDW 17.9 H (11.5-15.5) % Neutrophils # 8.7 H (1.3-7.7) k/uL Lymphocytes # 0.4 L (1.0-4.8) k/uL ABG pH (7.35-7.45) ABG pCO2 (35-45) mmHg ABG HCO3 (21-25) mmol/L ABG Total CO2 (19-24) mmol/L ABG O2 Saturation (94-97) % Potassium 3.2 L (3.5-5.1) mmol/L Carbon Dioxide (22-30) mmol/L BUN (7-17) mg/dL Glucose (74-99) mg/dL POC Glucose (mg/dL) 197 H (70-110) mg/dL Calcium (8.4-10.2) mg/dL Iron (50-170) ug/dL % Saturation (12.00-45.00) Total Protein (6.3-8.2) g/dL Albumin (3.5-5.0) g/dL 01/12/22 01/12/22 01/12/22 Range/Units 04:00 05:30 05:30 RBC (3.80-5.40) m/uL Hgb (11.4-16.0) gm/dL Hct (34.0-46.0) % MCHC (31.0-37.0) g/dL RDW (11.5-15.5) % Neutrophils # (1.3-7.7) k/uL Lymphocytes # (1.0-4.8) k/uL ABG pH 7.59 H* (7.35-7.45) ABG pCO2 32 L (35-45) mmHg ABG HCO3 31 H (21-25) mmol/L ABG Total CO2 32 H (19-24) mmol/L ABG O2 Saturation 99.4 H (94-97) % Potassium (3.5-5.1) mmol/L Carbon Dioxide 31 H (22-30) mmol/L BUN 37 H (7-17) mg/dL Glucose 147 H (74-99) mg/dL POC Glucose (mg/dL) 153 H (70-110) mg/dL Calcium 8.3 L (8.4-10.2) mg/dL Iron (50-170) ug/dL % Saturation (12.00-45.00) Total Protein 5.4 L (6.3-8.2) g/dL Albumin 2.6 L (3.5-5.0) g/dL Microbiology - Last 24 Hours (Table) 01/08/22 23:17 Urine Culture - Final Urine,Voided Escherichia coli Klebsiella oxytoca 01/09/22 09:13 Gram Stain - Final Bronchial Washings - Left Bronchial Washings Culture - Final Escherichia coli Assessment and Plan Assessment: Impression: Acute hypoxic and hypercapnic respiratory failure secondary to acute exacerbation of COPD, acute systolic congestive heart failure, and mucous plugging involving the left mainstem bronchus with complete collapse of the left lung. Suspect left lower lobe pneumonia, likely hospital-acquired or healthcare acquired pneumonia. Patient has E. coli pneumonia. Acute non-ST elevation myocardial infarction Acute metabolic encephalopathy History of CVA Paroxysmal atrial fibrillation History of severe underlying COPD Benign essential hypertension History of right breast cancer with right mastectomy Coronary artery disease and previous stenting and three-vessel CABG in November 2020 Mitral valve disease with mild to moderate mitral regurgitation Ischemic cardiomyopathy and LV dysfunction and ejection fraction of 45% Acute on chronic systolic congestive heart failure Ongoing tobacco dependence syndrome. Status post bronchoscopy and lavage as well as extraction of mucous plugs in the left mainstem bronchus however the patient required intubation and mechanical ventilation. vocal cord tumor noted during intubation, needs to have further evaluation by ENT, discussed with Dr. Alvarez, he will evaluate the patient postextubation Acute urinary tract infection secondary to E. coli and Klebsiella oxytoca. Recommendation: Continue ventilatory support, will give the patient a trial of pressure support and CPAP today, starting at pressure support of 10. Continue diuresis. Continue bronchodilators Continue GI and DVT prophylaxis. Continue nutritional support/enteral feeding. Continue Zosyn for her E. coli pneumonia and for her urinary tract infection. ENT aware of her tumor next to the vocal cords. Will evaluate post extubation Prognosis is extremely poor and guarded, Patient is critically ill. Will be given a trial of weaning, my clinical impression is that patient will be difficult to wean Critical care time is over 30 minutes not including the time spent on procedures today Time with Patient: Greater than 30
[2022-01-12 10:52] LABS: ABG Base Excess 11.1 mmol/L; ABG HCO3 33 mmol/L (21-25); ABG PCO2 35 mmHg (35-45); ABG PO2 119 mmHg (83-108); ABG TCO2 34 mmol/L (19-24); Allen Test Performed? Yes
[2022-01-12 10:56] LABS: ABG PH 7.59 (7.35-7.45)
[2022-01-12 12:32] LABS: Glucose,Whole Blood 132 mg/dL (70-110)
--- NOTE | 2022-01-12 13:58 | PN ---
PROGRESS NOTE FOLLOW-UP NOTE: Sharmila is a 76-year-old lady with history of paroxysmal atrial fibrillation, coronary artery disease, status post CABG, and COPD who is admitted to hospital with mild non-ST- segment-elevation MS, congestive heart failure and acute exacerbation of chronic COPD. She had a mucus plug and developed respiratory failure, was intubated on vent and underwent bronchoscopy. Today patient is extubated and oxygenating well and is free of significant symptoms. On exam, heart rate is 70 beats per minute. Blood pressure is 160/50. Respiratory rate is 18. Chest exam reveals diminished air entry at the bases. Heart exam reveals first and second heart sounds, an ejection systolic murmur in the aortic area. Abdomen is soft. Examination of extremities reveals mild edema. Peripheral pulses are felt. The patient is currently on Eliquis 5 b.i.d., aspirin, Lipitor 80 daily, Lexapro, folic acid, Lasix 20 IV q.12, insulin, Zestril, Lopressor and nebulizers. Labs show that the hemoglobin is 8.6, potassium is 3.5, creatinine is 0.69. ASSESSMENT: 1. Vent-requiring respiratory failure. 2. Congestive heart failure. 3. Coronary artery disease, status post coronary artery bypass grafting. 4. Paroxysmal atrial fibrillation. PLAN: Patient is extubated, doing well. Will continue current medications. MMODL / IJN: [id number] /
[2022-01-12] MEDS: NITROGLYCERIN OINT 1 INCH/GM PACKET TOPICAL SCH ×2 (14:29→23:53)
[2022-01-12 17:55] LABS: Glucose,Whole Blood 141 mg/dL (70-110)
[2022-01-12] MEDS: IPRATROPIUM-ALBUTEROL 3 ML NEB INHALATION PRN (19:09)
[2022-01-12] MEDS: ATORVASTATIN 80 MG TAB PO SCH (20:18)
[2022-01-12] MEDS: INSULIN DETEMIR (LEVEMIR) 100 UNIT/ML SYR SQ SCH (20:19)
[2022-01-12] MEDS: ESCITALOPRAM 5 MG TAB PO SCH (21:51)
[2022-01-12] MEDS: NOREPINEPHRINE 4 MG in SODIUM CHLORIDE 0.9% 250 ML IV SCH (22:23)
--- NOTE | 2022-01-12 22:38 | P.PN ---
Subjective Patient is a pleasant 46-year-old female came in with compensative shortness of breath and orthopnea, patient does have history of congestive heart failure EF of around 25-30% in the past patient has ischemic cardiomyopathy had heart attacks in the past and CABG in the past. Patient is found to have elevated BNP of 10,000 and the patient the chest x-ray is consistent with congestive heart failure with bilateral pleural effusions and primary congestion. Patient the quit smoking many months ago started smoking again last July. Chest x-ray did not show any pneumonia patient is comparing of coffee per day sputum production. had the atrial fibrillation with rapid ventricular rate on admission was on Cardizem uses metoprolol Cardizem is being this can urine patient's metoprolol dose will be increased cardiology was consulted. 01/06/2022 Patient evaluated today resting in bed. Overall she is feeling better. She continues on oxygen via nasal cannula 2-3 L, oxygen saturation is 99% and this can be weaned off probably. She has been started on eliquis. Metoprolol has been increased to 75 mg PO BID and she is now in sinus rhythm. She uses trelegy inhaler at home which is not stocked here for this reason she is on symbicort. E chocardiogram has been completed showing EF of 45% with inferobasal hypokinesia, there is mild to moderate mitral regurgitation. She continues on IV lasix BID, has been down -1.4 Liters in the last 24 hours. Labs today showing sodium 139, potassium 4.2, BUN 18, creatinine 0.86, magnesium 1.6. Cardiology is recommending cardiac cath when she is medically stable. 01/07/2022 Patient elevated today resting in bed, she is alert 1 which is a change in mental status. Apparently this happened throughout the registered nurse cardiac telemetry. Brain CT without contrast was completed today which shows no hemorrhage and no acute stroke. Continue to monitor neuro status will start patient on a small dose of Seroquel the evening for some possible acute hospital delirium. Patient is on Lexapro and accommodation can prolong QT interval which was reviewed and her QTC is showing 385 on EKG. Labs show serum sodium 139, potassium 3.7, chloride 97, CO2 33, BUN 19, creatinine 0.91. Blood pressure today 134/67. IV lasix decreased to daily. 01/08/2022 Patient evaluated today and her mentation has improved slighty she is alert x 2 now. She underwent repeat brain CT 01/07/2022 in the evening redemonstrating right parietal infarct with encephalomalacia, however, this CT reports continued evolution. No new areas for acute/subacute infarct. There is nonspecific white matter changes. Patient to be evaluated today by neurology. She is afebrile, heart rate 83, blood pressure 159/71, 96% on 3L Nasal cannula, she was dyspneic today on exam, chest xray was completed showing some basilar atelectasis. Labs today showing sodium 140, potassium 4.2, CO2 increased up to 37, ABG's were ordered last night showing PO2 of 72, HCO3 34, total CO2 36, pCO2 58. She has been transitioned to oral lasix today. 01/09/2022 Patient was upgraded to intensive care unit and placed on BiPAP yesterday afternoon, she was started on precedex gtt through out the night for acute agitation. Repeat ABGs were completed showing pH 7.55, pCO2 35, pO2 144, HCO3 30, total CO2 32, oxygen saturation 100%. Repeat troponin level showing 0.503 w hich is trending down, d-dimer was completed at 2.19. Patient had a chest xray completed this morning showing opacification of the left lung suggesting complete collapse of the left lung with suspected mucous plug or obstruction. 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 ENT was consulted for this. Bronchoscopy per reports showed mucous plugging in the left mainstream bronchus which was extracted and Patient is now on mechanical ventilator with FiO2 of 50%. Repeat chest xray post bronchoscopy shows improved aeration of the left upper lobe with persistent abnormal density in the lower 2/3 of the chest. Labs today showing white count 11.3, hgb 9.8, sodium 142, potassium 3.5, BUN 7, creatinine 3.2. Glucose in the 120s. Urinalysis showing cloudy urine with trace protein, moderate blood, ketones, large leukocyte esterase, WC 149, many white blood cell clumps, high hyaline casts. Urine culture is pending. She has been started on IV zosyn empirically, as well as IV solumedrol 40 mg Q8h, symbicort, duonebs. Lasix is on hold and she is receiving normal saline at 50 mLs per hour. Precedex has been discontinued. She is being followed by neurology, pulmonary order builder loader, and cardiology services. 01/10/2022 Patient continues to be monitored in the intensive care unit on mechanical ventilator with FiO2 40%. She is status post bronchoscopy with evacuation of mucous plugging left mainstem bronchus. Today her chest xray shows improvement in aeration with persistent abnormal density in the left lung base. No wheezing noted today, she does sound rhonchorous today with JVD evident. She continues off lasix. Labs today showing white count of 9.9, hemoglobin 9.5, sodium 142, potassium 3.8, CO2 31, BUN 36, creatinine 0.90. Blood glucoses in the 160s. She has T-Max 101.3 in the last 24 hours, heart rate showing sinus kathrin cardia in the 50s, blood pressure 88/40, 97% oxygenation, Cardiology is following the pat ient as well as neurology and pulmonary order builder loader. She continues on IV zosyn, IV propofol, she is requiring pressor support. Continues on IV solumedrol and blood sugars will be monitored closely. Dietary has also been consulted and patient will be started on enteral tube feedings. Family has changed code status to mechanical ventilation only. She is wiggling toes on examination. 01/11/2022 Patient continues to be monitored in the intensive care unit. She is currently intubated with an FiO2 of 40% oxygen saturations 99-100%. She has been febrile throughout the evening with T-Max 100.6. Patient complains of difficulty in breathing and asking to be suctioned. Continues with significant secretions. Patients chest xray today shows correlation for congestive heart failure versus pneumonia. She has been started on enteral tube feedings with novolog coverage every 6 hours. Blood glucose in the 180s. A small dose of levemir was given today. She continues on IV solu-medrol 40 mg Q8h. She is off pressor support and blood pressures are 115/50. She is sinus rhythm with ST depression and inverted T Wave. Urine culture has finalized showing E.Coli and Klebsiella, and bronchial washing showing E.Coli. Antibiotics have been changed to Ceftriaxone 2gm Q24 hours. We will order a blood culture today as well. 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 Cardiology is following the patient and lasix continues to be on hold. She is in a positive fluid balance of about 1200 mL over the last few days with evidence for JVD. She is continued on Resume the care of the patient on 01/12/2022 Patient remains in the ICU in critical condition, she is intubated and on mechanical ventilation with pulmonary/critical care team following her closely. I did help with and management. She is on multiple medications including those of Eliquis for her paroxysmal atrial fibrillation, she is on IV Lasix 20 mg twice daily, salmeterol 40 mg and Zosyn for her multiple problems including hypoxic respiratory failure secondary to E. coli left lower lobe pneumonia, good COPD exacerbation and acute systolic CHF with ejection fraction of 45%. Also she has evidence of chronic rectal stroke, iron deficiency anemia and 2 more close to the vocal cords. Patient is followed closely by pulmonary services. Her hemoglobin is 8.6 and, and access 31. She is on PEEP of 5 and she has no fever or currently. Echocardiogram showing ejection fraction of 45% and hypokinesia well chest x-ray showing multifocal airspace opacity. Bring a portion cultures positive for E. coli were urine cultures positive for E. coli and Klebsiella. ProBNP is elevated at 10 400 Review of systems: N/a Active Medications Generic Name Dose Route Start Last Admin Trade Name Freq PRN Reason Stop Dose Admin Acetaminophen 500 mg 01/05/22 01:03 01/12/22 08:16 Acetaminophen Tab 500 Mg Tab PO 500 mg Q6HR PRN Administration Fever and/ or Pain Albuterol/Ipratropium 3 ml 01/05/22 10:16 01/12/22 19:09 Ipratropium-Albuterol 3 Ml Neb INHALATION 3 ml RT-QID PRN Administration Shortness Of Breath Or Wheezing Apixaban 5 mg 01/05/22 01:15 01/12/22 20:18 Apixaban 5 Mg Tab PO 5 mg BID MARY ANNE Administration Protocol Aspirin 81 mg 01/05/22 09:00 01/12/22 08:18 Aspirin 81 Mg PO 81 mg DAILY MARY ANNE Administration Atorvastatin Calcium 80 mg 01/05/22 21:00 01/12/22 20:18 Atorvastatin 80 Mg Tab PO 80 mg HS MARY ANNE Administration Baclofen 5 mg 01/05/22 16:00 01/12/22 21:51 Baclofen 10 Mg Tab PO 5 mg TID MARY ANNE Administration Escitalopram Oxalate 5 mg 01/05/22 21:00 01/12/22 21:51 Escitalopram 5 Mg Tab PO 5 mg HS MARY ANNE Administration Folic Acid 1 mg 01/08/22 14:45 01/12/22 08:16 Folic Acid 1 Mg Tab PO 1 mg DAILY MARY ANNE Administration Furosemide 20 mg 01/11/22 12:30 01/12/22 20:18 Furosemide 10 Mg/Ml 2 Ml Vial IV 20 mg Q12HR MARY ANNE Administration Gabapentin 100 mg 01/05/22 01:01 01/12/22 21:51 Gabapentin 100 Mg Cap PO 100 mg TID MARY ANNE Administration Hydromorphone HCl 1 mg 01/09/22 19:25 01/12/22 21:51 Hydromorphone 1 Mg/Ml 1 Ml Syringe IVP 1 mg Q3H PRN Administration Pain Sodium Chloride 1,000 mls @ 20 mls/hr 01/08/22 16:00 01/12/22 04:25 Saline 0.9% IV 20 mls/hr .Q24H MARY ANNE Administration Norepinephrine Bitartrate 4 mg 254 mls @ 9.277 mls/hr 01/09/22 23:00 01/12/22 22:23 / Sodium Chloride IV Not Given .Q24H MARY ANNE Protocol 0.05 MCG/KG/MIN Piperacillin Sod/Tazobactam 100 mls @ 25 mls/hr 01/11/22 16:00 01/12/22 16:49 Sod 3.375 gm/ Sodium Chloride IVPB 25 mls/hr Q8HR MARY ANNE Administration Protocol Insulin Aspart 0 unit 01/09/22 00:00 01/12/22 18:17 Insulin Aspart (Novolog) 100 Unit/Ml Vial SQ Not Given Q6H [facility] Protocol Insulin Detemir 6 unit 01/11/22 21:00 01/12/22 20:19 Insulin Detemir (Levemir) 100 Unit/Ml Syr SQ 6 unit HS MARY ANNE Administration Ipratropium [place] 0.5 mg 01/05/22 08:00 01/12/22 19:10 Ipratropium 0.5 Mg/2.5 Ml Nebu INHALATION Not Given RT-QID MARY ANNE Letrozole 2.5 mg 01/05/22 09:00 01/12/22 08:17 Letrozole 2.5 Mg Tab PO 2.5 mg DAILY MARY ANNE Administration Lisinopril 2.5 mg 01/05/22 09:00 01/12/22 08:18 Lisinopril 2.5 Mg Tab PO 2.5 mg DAILY MARY ANNE Administration Methylprednisolone Sodium Succinate 40 mg 01/08/22 16:00 01/12/22 16:48 Methylprednisolone Sod Succi 40 Mg/Ml 1 Ml Vial IV 40 mg Q8HR MARY ANNE Administration Metoprolol Tartrate 75 mg 01/05/22 10:00 01/12/22 20:19 Metoprolol Tartrate 25 Mg Tab PO 75 mg BID MARY ANNE Administration Miscellaneous Information 1 each 01/06/22 15:13 Magnesium Replacement Protocol 1 Each [facility] [place] DAILY PRN Per Protocol Protocol Miscellaneous Information 1 each 01/09/22 22:27 Potassium Replacement Protocol 1 Each [facility] [place] DAILY PRN Per Protocol Protocol Nitroglycerin 1 inch 01/12/22 16:00 01/12/22 14:29 Nitroglycerin Oint 1 Inch/Gm Packet TOPICAL 1 inch Q8HR MARY ANNE Administration Pantoprazole Sodium 40 mg 01/09/22 10:00 01/12/22 08:17 Pantoprazole 40 Mg/10 Ml Vial IVP 40 mg DAILY MARY ANNE Administration Objective - Vital Signs Vital signs: Vital Signs Temp 98.8 F 01/12/22 08:00 Pulse 71 01/12/22 08:00 Resp 24 01/12/22 08:00 BP 115/50 01/11/22 07:00 Pulse Ox 100 01/12/22 08:00 FiO2 40 01/12/22 09:10 Intake & Output 01/11/22 01/12/22 01/12/22 18:59 06:59 18:59 Intake Total 730.986 351.109 162.402 Output Total 1560 1495 140 Balance -829.014 -1143.891 22.402 Weight 49.8 kg Intake: IV 450 240 140 Piperacillin-Tazobactam 3 100 100 .375 gm In Sodium Chloride 0.9% 100 ml @ 25 mls/hr IVPB Q8H MARY ANNE Rx#: [id number] Sodium Chloride 0.9% 1, 350 240 40 000 ml @ 20 mls/hr IV . Q24H MARY ANNE Rx#:[id number] Intake, IV Titration 75.986 111.109 22.402 Amount Norepinephrine 4 mg In 11.628 Sodium Chloride 0.9% 250 ml @ 0.05 MCG/KG/MIN 9. 277 mls/hr IV .Q24H MARY ANNE Rx#:[id number] propofoL 1,000 mg In 64.358 111.109 22.402 Empty Bag 1 bag @ 50 MCG/ KG/MIN 14.61 mls/hr IV . Q6H51M MARY ANNE Rx#:[id number] Tube Feeding 205 Output: Urine 1560 1495 140 Other: Voiding Method Indwelling Catheter Indwelling Catheter Indwelling Catheter # Bowel Movements 1 ABP, PAP, CO, CI - Last Documented Arterial Blood Pressure 186/67 - Exam -GENERAL: The patient is intubated and sedated HEENT: Pupils are round and equally reacting to light. EOMI. No scleral icterus. No conjunctival pallor. Normocephalic, atraumatic. No pharyngeal erythema. No thyromegaly. CARDIOVASCULAR: S1 and S2 present. No murmurs, rubs, or gallops. -PULMONARY: Chest is clear to auscultation, no wheezing, multiple crackles bilaterally ABDOMEN: Soft, nontender, nondistended, normoactive bowel sounds. No palpable organomegaly. MUSCULOSKELETAL: No joint swelling or deformity. EXTREMITIES: No cyanosis, clubbing, or pedal edema. NEUROLOGICAL: Gross neurological examination did not reveal any focal deficits. SKIN: No rashes. no petechiae. - Labs CBC & Chem 7: 01/12/22 04:00 01/12/22 08:30 Labs: Abnormal Lab Results - Last 24 Hours (Table) 01/11/22 01/11/22 01/11/22 Range/Units 04:20 11:45 18:01 RBC (3.80-5.40) m/uL Hgb (11.4-16.0) gm/dL Hct (34.0-46.0) % MCHC (31.0-37.0) g/dL RDW (11.5-15.5) % Neutrophils # (1.3-7.7) k/uL Lymphocytes # (1.0-4.8) k/uL ABG pH (7.35-7.45) ABG pCO2 (35-45) mmHg ABG HCO3 (21-25) mmol/L ABG Total CO2 (19-24) mmol/L ABG O2 Saturation (94-97) % Potassium (3.5-5.1) mmol/L Carbon Dioxide (22-30) mmol/L BUN (7-17) mg/dL Glucose (74-99) mg/dL POC Glucose (mg/dL) 141 H 158 H (70-110) mg/dL Calcium (8.4-10.2) mg/dL Iron 8 L (50-170) ug/dL % Saturation 2.90 L (12.00-45.00) Total Protein (6.3-8.2) g/dL Albumin (3.5-5.0) g/dL 01/11/22 01/11/22 01/12/22 Range/Units 20:53 23:54 04:00 RBC 3.42 L (3.80-5.40) m/uL Hgb 8.6 L (11.4-16.0) gm/dL Hct 28.8 L (34.0-46.0) % MCHC 29.9 L (31.0-37.0) g/dL RDW 17.9 H (11.5-15.5) % Neutrophils # 8.7 H (1.3-7.7) k/uL Lymphocytes # 0.4 L (1.0-4.8) k/uL ABG pH (7.35-7.45) ABG pCO2 (35-45) mmHg ABG HCO3 (21-25) mmol/L ABG Total CO2 (19-24) mmol/L ABG O2 Saturation (94-97) % Potassium 3.2 L (3.5-5.1) mmol/L Carbon Dioxide (22-30) mmol/L BUN (7-17) mg/dL Glucose (74-99) mg/dL POC Glucose (mg/dL) 197 H (70-110) mg/dL Calcium (8.4-10.2) mg/dL Iron (50-170) ug/dL % Saturation (12.00-45.00) Total Protein (6.3-8.2) g/dL Albumin (3.5-5.0) g/dL 01/12/22 01/12/22 01/12/22 Range/Units 04:00 05:30 05:30 RBC (3.80-5.40) m/uL Hgb (11.4-16.0) gm/dL Hct (34.0-46.0) % MCHC (31.0-37.0) g/dL RDW (11.5-15.5) % Neutrophils # (1.3-7.7) k/uL Lymphocytes # (1.0-4.8) k/uL ABG pH 7.59 H* (7.35-7.45) ABG pCO2 32 L (35-45) mmHg ABG HCO3 31 H (21-25) mmol/L ABG Total CO2 32 H (19-24) mmol/L ABG O2 Saturation 99.4 H (94-97) % Potassium (3.5-5.1) mmol/L Carbon Dioxide 31 H (22-30) mmol/L BUN 37 H (7-17) mg/dL Glucose 147 H (74-99) mg/dL POC Glucose (mg/dL) 153 H (70-110) mg/dL Calcium 8.3 L (8.4-10.2) mg/dL Iron (50-170) ug/dL % Saturation (12.00-45.00) Total Protein 5.4 L (6.3-8.2) g/dL Albumin 2.6 L (3.5-5.0) g/dL Microbiology - Last 24 Hours (Table) 01/08/22 23:17 Urine Culture - Final Urine,Voided Escherichia coli Klebsiella oxytoca 01/09/22 09:13 Gram Stain - Final Bronchial Washings - Left Bronchial Washings Culture - Final Escherichia coli Assessment and Plan Assessment: -Acute hypoxic and hypercapnic Respiratory Failure patient is on mechanical ventilator being monitored in the intensive care unit. She is status post bronchoscopy which reveals mucous plugging of left mainstem bronchus. Left lung aeration has improved on imaging. Culture showing E.Coli and antibiotics have been adjusted to Rocephin. -Acute on chronic systolic CHF, ejection fraction 45% - Acute COPD exacerbation -Urinary tract infection with sepsis, E.Coli and Klebsiella finalized on cultures, antibiotics have been adjusted to rocephin -Elevated troponins, likely NSTEMI per cardiology will most likely require cardiac cath when medically sable -Atrial fibrillation with rapid rate patient has a known paroxysmal A. fib does take Eliquis for anticoagulation. Patient is continued on metoprolol. -Altered mental status with repeat brain CT showing continued evolution of right parietal infarct with encephalomalacia, most likely this is toxic metabolic encephalopathy multifactorial from urinary tract infection, pneumonia and heart failure, improving. 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 fib. Continue with the liquids home dose of 5 mg Continue with IV Lasix Continue with IV Solu-Medrol Continue with antibiotic Zosyn patient may benefit from cardiac cath upon improvement of her critical illness Patient were were ENT evaluation for her vocal cord tumor Several consultants of the case including ICU, neurologist and clerical aide teacher Labs and medication were reviewed.. Continue same treatment. Continue with symptomatic treatment. Resume home medication. Monitor lytes and vitals. DVT and GI prophylaxis. Further recommendations as per clinical course of the patient DVT prophylaxis: Eliquis GI Prophylaxis: ppi Prognosis is guarded
[2022-01-12 23:54] LABS: Glucose,Whole Blood 113 mg/dL (70-110)
--- NOTE | 2022-01-13 01:43 | P.PN ---
Subjective Progress Note Date: 01/10/22 Patient was seen for a follow-up. Patient is intubated. Patient is following commands. Wiggling all toes. Objective - Vital Signs Vital signs: Vital Signs Temp 97.7 F 01/10/22 08:00 Pulse 59 L 01/10/22 11:48 Resp 25 H 01/10/22 11:00 BP 88/40 01/10/22 11:00 Pulse Ox 97 01/10/22 11:00 FiO2 40 01/10/22 10:41 Intake & Output 01/09/22 01/10/22 01/10/22 18:59 06:59 18:59 Intake Total 827.798 959.062 394.811 Output Total 357 337 160 Balance 470.798 622.062 234.811 Weight 48.7 kg 52.7 kg Intake: IV 750 600 250 Piperacillin-Tazobactam 3 200 .375 gm In Sodium Chloride 0.9% 100 ml @ 25 mls/hr IVPB Q8H MARY ANNE Rx#: [id number] Sodium Chloride 0.9% 1, 550 600 250 000 ml @ 50 mls/hr IV . Q20H MARY ANNE Rx#:[id number] Intake, IV Titration 77.798 89.062 44.811 Amount Norepinephrine 4 mg In 87.796 Sodium Chloride 0.9% 250 ml @ 0.05 MCG/KG/MIN 9. 277 mls/hr IV .Q24H MARY ANNE Rx#:[id number] propofoL 1,000 mg In 77.798 Empty Bag 1 bag @ 5 MCG/ KG/MIN 1.461 mls/hr IV . Q24H MARY ANNE Rx#:[id number] propofoL 1,000 mg In 1.266 44.811 Empty Bag 1 bag @ 50 MCG/ KG/MIN 14.61 mls/hr IV . Q6H51M MARY ANNE Rx#:[id number] Tube Feeding 180 100 Other 90 Output: Urine 357 337 160 Other: Voiding Method Indwelling Catheter Indwelling Catheter Indwelling Catheter ABP, PAP, CO, CI - Last Documented Arterial Blood Pressure 154/44 - Exam Patient is intubated, slightly drowsy, but does wake up, and is following commands. Patient nods very appropriately. Patient is squeezing hands. She is wiggling her feet. No obvious focality. - Labs CBC & Chem 7: 01/12/22 04:00 01/12/22 08:30 Labs: Abnormal Lab Results - Last 24 Hours (Table) 01/09/22 01/09/22 01/10/22 Range/Units 23:10 23:27 04:10 RBC 3.73 L (3.80-5.40) m/uL Hgb 9.5 L (11.4-16.0) gm/dL Hct 31.8 L (34.0-46.0) % MCHC 30.0 L (31.0-37.0) g/dL RDW 18.3 H (11.5-15.5) % Neutrophils # 8.8 H (1.3-7.7) k/uL Lymphocytes # 0.6 L (1.0-4.8) k/uL ABG pH (7.35-7.45) ABG HCO3 (21-25) mmol/L ABG Total CO2 (19-24) mmol/L ABG O2 Saturation (94-97) % Potassium 3.2 L (3.5-5.1) mmol/L Carbon Dioxide (22-30) mmol/L BUN 36 H (7-17) mg/dL Glucose 126 H (74-99) mg/dL POC Glucose (mg/dL) 140 H (70-110) mg/dL Total Protein (6.3-8.2) g/dL Albumin (3.5-5.0) g/dL 01/10/22 01/10/22 01/10/22 Range/Units 04:10 05:29 05:46 RBC (3.80-5.40) m/uL Hgb (11.4-16.0) gm/dL Hct (34.0-46.0) % MCHC (31.0-37.0) g/dL RDW (11.5-15.5) % Neutrophils # (1.3-7.7) k/uL Lymphocytes # (1.0-4.8) k/uL ABG pH 7.55 H (7.35-7.45) ABG HCO3 32 H (21-25) mmol/L ABG Total CO2 33 H (19-24) mmol/L ABG O2 Saturation 98.0 H (94-97) % Potassium (3.5-5.1) mmol/L Carbon Dioxide 31 H (22-30) mmol/L BUN 36 H (7-17) mg/dL Glucose 165 H (74-99) mg/dL POC Glucose (mg/dL) 160 H (70-110) mg/dL Total Protein 5.5 L (6.3-8.2) g/dL Albumin 2.7 L (3.5-5.0) g/dL 01/10/22 Range/Units 11:35 RBC (3.80-5.40) m/uL Hgb (11.4-16.0) gm/dL Hct (34.0-46.0) % MCHC (31.0-37.0) g/dL RDW (11.5-15.5) % Neutrophils # (1.3-7.7) k/uL Lymphocytes # (1.0-4.8) k/uL ABG pH (7.35-7.45) ABG HCO3 (21-25) mmol/L ABG Total CO2 (19-24) mmol/L ABG O2 Saturation (94-97) % Potassium (3.5-5.1) mmol/L Carbon Dioxide (22-30) mmol/L BUN (7-17) mg/dL Glucose (74-99) mg/dL POC Glucose (mg/dL) 178 H (70-110) mg/dL Total Protein (6.3-8.2) g/dL Albumin (3.5-5.0) g/dL Microbiology - Last 24 Hours (Table) 01/09/22 09:13 Gram Stain - Preliminary Bronchial Washings - Left Bronchial Washings Culture - Preliminary 01/09/22 09:13 Acid Fast Bacilli Smear - Final Bronchial Washings - Left Acid Fast Bacilli Culture - Preliminary 01/09/22 09:13 Fungal Culture - Preliminary Bronchial Washings - Left 01/08/22 23:17 Urine Culture - Preliminary Urine,Voided Assessment and Plan Assessment: * Altered mental status, likely due to toxic metabolic encephalopathy. This is most likely related to underlying cardiopulmonary dysfunction. * Ventilator-dependent respiratory failure, now on mechanical ventilation * Acute non-STEMI * Congestive heart failure * History of CVA * Paroxysmal atrial fibrillation * CAD * COPD * Hypertension * Hyperlipidemia * Folate deficiency * History of breast cancer Plan: * Patient's examination is limited due to being on mechanical ventilation, but is nonfocal. She is following commands, moving all 4 extremities. * Treatment of underlying cardiopulmonary process as per IM and other specialties. * 2-D echo revealed normal left ventricle size. Inferior septal hypokinesia and ejection fraction is about 45%. Mild to moderate MR. Moderately increased left atrial volume. Mildly increased left atrium area. * Carotid Doppler from 08/19/2021 showed [id number] atherosclerotic changes with no significant hemodynamic stenosis. * Continue Eliquis for stroke prevention related to atrial fibrillation. Patient also on aspirin 81 mg daily and Lipitor 80 mg. * Patient has history of folate deficiency, we will start folic acid 1 mg daily. * Medical management as per ICU and other specialties. * Neurology will sign off. Please reconsult neurology if any other concerns.
[2022-01-13] MEDS: HYDROmorphone 1 MG/ML 1 ML SYRINGE IVP PRN ×5 (02:43→20:34)
[2022-01-13 02:59] LABS: Anisocytosis Slight; Basophils % (A) 0 %; Eosinophils % (A) 0 %; HCT 28.7 % (34.0-46.0); HGB 8.6 gm/dL (11.4-16.0); Hypochromasia Marked; Lymphocytes # (A) 0.6 k/uL (1.0-4.8); Lymphocytes % (A) 6 %; MCH 25.5 pg (25.0-35.0); MCV 84.9 fL (80.0-100.0); Mean Platelet Volume 11.1; Monocytes # (A) 0.3 k/uL (0-1.0); Monocytes % (A) 3 %; Neutrophils # (A) 9.8 k/uL (1.3-7.7); Neutrophils % (A) 90 %; Platelet Count 166 k/uL (150-450); Poikilocytosis Slight; RBC 3.38 m/uL (3.80-5.40); RDW 17.6 % (11.5-15.5); WBC 10.8 k/uL (3.8-10.6)
[2022-01-13 03:08] LABS: ALT 27 U/L (4-34); AST 29 U/L (14-36); African American GFR (CKD) >90 (>60 ml/min/1.73 sqM); Albumin 2.9 g/dL (3.5-5.0); Alkaline Phosphatase 63 U/L (38-126); Anion Gap 4 mmol/L; Blood Urea Nitrogen 32 mg/dL (7-17); Calcium 8.5 mg/dL (8.4-10.2); Carbon Dioxide 33 mmol/L (22-30); Chloride 104 mmol/L (98-107); Glucose 107 mg/dL (74-99); Non-African American GFR(CKD) 86 (>60 ml/min/1.73 sqM); Potassium 3.7 mmol/L (3.5-5.1); Sodium 141 mmol/L (137-145); Total Bilirubin 0.5 mg/dL (0.2-1.3); Total Protein 5.9 g/dL (6.3-8.2)
[2022-01-13] MEDS ORDERED: POTASSIUM CHLORIDE ER 20 MEQ TAB.ER PO SCH (04:00)
[2022-01-13] MEDS: SODIUM CHLORIDE 0.9% 1,000 ML IV SCH (04:33)
[2022-01-13 06:41] LABS: Glucose,Whole Blood 100 mg/dL (70-110)
[2022-01-13] MEDS: INSULIN ASPART (NovoLOG) 100 UNIT/ML VIAL SQ SCH ×4 (06:55→21:30)
--- NOTE | 2022-01-13 07:35 | XR ---
EXAMINATION TYPE: XR chest 1V portable DATE OF EXAM: 01/13/2022 COMPARISON: Chest x-ray dated 01/11/2022 HISTORY: Extubated TECHNIQUE: Single frontal view of the chest is obtained. FINDINGS: Endotracheal tube and NG tube have been removed, right jugular central sheath remains in p lace. There is some interval improvement in visualization of left hemidiaphragm. Patient is post left atrial appendage clip placement. Aorta is dense. Patient is rotated. No evident pneumothorax. Patchy density persists within the lungs. Cardiac mediastinal silhouette is likely stable. IMPRESSION: Interval extubation. Suspect some improvement in aeration.
--- NOTE | 2022-01-13 07:53 | P.PN ---
Subjective Progress Note Date: 01/13/22 Principal diagnosis: Acute hypoxic respiratory failure This is a 76-year-old female patient with known to her service from before with a past medical history significant for severe coronary artery disease and status post CABG as well as severe lower extremities peripheral arterial disease with prior revascularization as well as cardiomyopathy based on echo recently the ejection fraction was 45% and also hypertension and dyslipidemia and smoking and COPD. She was admitted to the hospital with acute hypoxic respiratory failure. The patient was seen this morning. She is feeling better overall. She reports no pain in the chest. On examination she continues to have bilateral expiratory wheezing. She has no lower extremities edema noted on examination. Currently she is on Lasix IV. The chest x-ray was repeated this morning and showed mild improvement. We can consider switching the patient Lasix by mouth in the next 24 hours. She is also on oral anticoagulation for history of paroxysmal atrial fibrillation. Objective - Vital Signs Vital signs: Vital Signs Temp 98.3 F 01/13/22 04:00 Pulse 75 01/13/22 07:00 Resp 28 H 01/13/22 07:00 BP 115/50 01/11/22 07:00 Pulse Ox 99 01/13/22 07:00 FiO2 40 01/12/22 09:10 Intake & Output 01/12/22 01/13/22 01/13/22 18:59 06:59 18:59 Intake Total 563.036 240 20 Output Total 1090 1325 150 Balance -526.964 -1085 -130 Weight 49.7 kg Intake: IV 340 240 20 Piperacillin-Tazobactam 3 100 .375 gm In Sodium Chloride 0.9% 100 ml @ 25 mls/hr IVPB Q8H MARY ANNE Rx#: [id number] Sodium Chloride 0.9% 1, 240 240 20 000 ml @ 20 mls/hr IV . Q24H MARY ANNE Rx#:[id number] Intake, IV Titration 123.036 Amount Piperacillin-Tazobactam 3 100 .375 gm In Sodium Chloride 0.9% 100 ml @ 25 mls/hr IVPB Q8HR MARY ANNE Rx# :[id number] propofoL 1,000 mg In 23.036 Empty Bag 1 bag @ 50 MCG/ KG/MIN 14.61 mls/hr IV . Q6H51M MARY ANNE Rx#:[id number] Oral 100 Output: Urine 1090 1325 150 Other: Voiding Method Indwelling Catheter Indwelling Catheter ABP, PAP, CO, CI - Last Documented Arterial Blood Pressure 132/86 - Constitutional General appearance: Present: no acute distress - Respiratory Respiratory: bilateral: wheezing - Cardiovascular Rhythm: regular Heart sounds: normal: S1, S2 - Labs CBC & Chem 7: 01/13/22 02:50 01/13/22 02:50 Labs: Abnormal Lab Results - Last 24 Hours (Table) 01/12/22 01/12/22 01/12/22 Range/Units 10:46 12:30 17:53 WBC (3.8-10.6) k/uL RBC (3.80-5.40) m/uL Hgb (11.4-16.0) gm/dL Hct (34.0-46.0) % MCHC (31.0-37.0) g/dL RDW (11.5-15.5) % Neutrophils # (1.3-7.7) k/uL Lymphocytes # (1.0-4.8) k/uL ABG pH 7.59 H* (7.35-7.45) ABG pO2 119 H (83-108) mmHg ABG HCO3 33 H (21-25) mmol/L ABG Total CO2 34 H (19-24) mmol/L ABG O2 Saturation 100.0 H (94-97) % Carbon Dioxide (22-30) mmol/L BUN (7-17) mg/dL Glucose (74-99) mg/dL POC Glucose (mg/dL) 132 H 141 H (70-110) mg/dL Total Protein (6.3-8.2) g/dL Albumin (3.5-5.0) g/dL 01/12/22 01/13/22 01/13/22 Range/Units 23:52 02:50 02:50 WBC 10.8 H (3.8-10.6) k/uL RBC 3.38 L (3.80-5.40) m/uL Hgb 8.6 L (11.4-16.0) gm/dL Hct 28.7 L (34.0-46.0) % MCHC 30.0 L (31.0-37.0) g/dL RDW 17.6 H (11.5-15.5) % Neutrophils # 9.8 H (1.3-7.7) k/uL Lymphocytes # 0.6 L (1.0-4.8) k/uL ABG pH (7.35-7.45) ABG pO2 (83-108) mmHg ABG HCO3 (21-25) mmol/L ABG Total CO2 (19-24) mmol/L ABG O2 Saturation (94-97) % Carbon Dioxide 33 H (22-30) mmol/L BUN 32 H (7-17) mg/dL Glucose 107 H (74-99) mg/dL POC Glucose (mg/dL) 113 H (70-110) mg/dL Total Protein 5.9 L (6.3-8.2) g/dL Albumin 2.9 L (3.5-5.0) g/dL Microbiology - Last 24 Hours (Table) 01/11/22 12:57 Blood Culture - Preliminary Blood No Growth after 24 hours Assessment and Plan Assessment: Assessment #1 acute hypoxic respiratory failure #2 heart failure exacerbation secondary to heart failure with reduced ejection fraction #3 paroxysmal atrial fibrillation #4 COPD exacerbation #5 severe lower extremities peripheral arterial disease #6 multiple comorbid conditions Plan #1 continue the current dose of Lasix IV for additional 24 hours #2 consider switching the patient to Lasix by mouth in the next 24-48 hours #3 the chest x-ray was reviewed and showed mild improvement #4 continue oral anticoagulation #5 continue anti-ischemic medication #6 follow-up with the patient
[2022-01-13] MEDS: IPRATROPIUM 0.5 MG/2.5 ML NEBU INHALATION SCH ×4 (08:46→20:02)
[2022-01-13] MEDS: methylPREDNISolone SOD SUCCI 40 MG/ML 1 ML VIAL IV SCH ×3 (08:53→23:37)
[2022-01-13] MEDS: PIPERACILLIN-TAZOBACTAM 3.375 GM in SODIUM CHLORIDE 0.9% 100 ML IVPB SCH ×3 (08:53→23:37)
[2022-01-13] MEDS: NITROGLYCERIN OINT 1 INCH/GM PACKET TOPICAL SCH ×3 (08:54→23:34)
[2022-01-13] MEDS: APIXABAN 5 MG TAB PO SCH ×2 (08:54→21:11)
[2022-01-13] MEDS: GABAPENTIN 100 MG CAP PO SCH ×3 (08:55→21:29)
[2022-01-13] MEDS: FOLIC ACID 1 MG TAB PO SCH (08:55)
[2022-01-13] MEDS: BACLOFEN 10 MG TAB PO SCH ×3 (08:55→21:29)
[2022-01-13] MEDS: FUROSEMIDE 10 MG/ML 2 ML VIAL IV SCH ×2 (08:55→21:30)
[2022-01-13] MEDS: ASPIRIN 81 MG PO SCH (08:55)
[2022-01-13] MEDS: LETROZOLE 2.5 MG TAB PO SCH (09:00)
[2022-01-13] MEDS: PANTOPRAZOLE 40 MG/10 ML VIAL IVP SCH (09:01)
[2022-01-13] MEDS: METOPROLOL TARTRATE 25 MG TAB PO SCH ×2 (09:17→21:29)
--- NOTE | 2022-01-13 09:41 | P.PN ---
Subjective Progress Note Date: 01/13/22 Principal diagnosis: Respiratory failure. Reevaluated today on 01/10/22, patient remains in the ICU, intubated and mechanically ventilated. Patient is on assist control rate of 24 tidal volume 350 FiO2 40% and PEEP of 5. Overnight the patient required small dose of norepinephrine at 0.04 mcg/kg/m. She is sedated, on propofol at 7.5 mcg/kg/h, patient is still receiving Zosyn for presumptive left sided pneumonia, and cultures are pending. ABG today showed a pO2 of 84 pCO2 37 pH of 7.55. Continues to have left lower lobe consolidation on chest x-ray, however dramatic improvement noted on the chest x-ray in comparison to her chest x-ray when she was admitted to the ICU showing a complete collapse of the left lung. WBC count today is 9.9 hemoglobin is 9.5. Basic metabolic profile is relatively normal. Patient is on enteral feeding. Tolerating enteral feeding well. Reevaluated today on 01/11/22, patient remains in the ICU, intubated and mechanically ventilated. Patient is awake, however she seems to be extremely restless, agitated, and tachypneic. Respiratory rate is in the mid 30s. Patient seems to be working hard to breathe although she is on assist control mode of mechanical ventilation. Hence I believe the patient is not quite ready to wean and extubate at this point yet. Her ventilator settings are assist control rate of 24 tidal volume 350 FiO2 40% PEEP of 5 and I cut down her FiO2 down to 35%. Her ABG showed a pO2 of 107 pCO2 37 pH of 7.52. Patient is now off sedation, and I recommended going back on sedation, as she is not quite ready to wean. Patient will be a difficult extubation, and she will likely be a failure to wean easily. She is on IV fluid in the form of point tenderness saline at 50 mL per hour. Chest x-ray showed significant improvement in her left lung opacification and left lower lobe pneumonia. However the chest x-ray is suggestive of mild perihilar interstitial edema. Bronchial washings are positive for E. coli and urine cultures are positive for E. coli and Klebsiella oxytoca. Both are sensitive to Zosyn, and the patient is already on Zosyn WBC count today is 8.0 hemoglobin is 8.4. Platelets are 193. Basic metabolic profile is relatively normal. BUN is 40 creatinine 0.61. Liver profile is basically unremarkable. Reevaluated today on 01/12/2022, patient remains in the ICU, intubated and mechanically ventilated. She is off sedation this morning, patient is awake, and she follows simple instructions but she seems to be generally weak. She is on assist control rate of 24 tidal volume 350 FiO2 35% PEEP of 5. ABG showed a pO2 of 108 pCO2 of 32 pH of 7.59, patient had a baseline pCO2 in the 50s, hence I cut down her rate from 24-20 in the meantime I recommended giving the patient a trial of pressure support of 10 and CPAP. Since the patient is awake, at the she will receive a weaning trial, although my clinical suspicion that the patient will be difficult to wean based on her baseline pulmonary status and cardiac status. Chest x-ray showed evidence of pulmonary congestion/slight int erstitial edema, and I recommended Lasix which is given twice a day. Patient is on vitamin Hpwe at 41 cc per hour. Tolerating that quite well. WBC count today is 9.7 hemoglobin 8.6. Basic metabolic profile is normal renal profile is normal. Bicarb is 31. Progress note dated 01/13/2022. The patient is seen today in room 258. She was admitted to the hospital on January 04. She came with atrial fibrillation and RVR, COPD, and CHF. She was intubated on January 09, extubated yesterday on January 12. Currently, she is resting comfortably. She is on 3 L nasal cannula. He is getting saline at 20 mL an hour. She has no major complaints. White count 10.8, hemoglobin 8.6, hematocrit 28.7, and platelet count 266,000. Sodium 141, potassium 3.7, chlorides 104, CO2 33, BUN 32, creatinine 0.69. Albumin 2.9. Chest x-ray shows improvement in overall aeration. Microbiologic studies show urine to be positive for Escherichia coli, and Klebsiella, and bronchial washings from January 09 be positive for E. coli. She is currently on Zosyn. Objective - Vital Signs Vital signs: Vital Signs Temp 97.0 F L 01/13/22 08:00 Pulse 74 01/13/22 08:56 Resp 20 01/13/22 08:00 BP 145/85 01/13/22 08:00 Pulse Ox 99 01/13/22 08:00 FiO2 40 01/12/22 09:10 Intake & Output 01/12/22 01/13/22 01/13/22 18:59 06:59 18:59 Intake Total 563.036 240 20 Output Total 1090 1325 150 Balance -526.964 -1085 -130 Weight 49.7 kg Intake: IV 340 240 20 Piperacillin-Tazobactam 3 100 .375 gm In Sodium Chloride 0.9% 100 ml @ 25 mls/hr IVPB Q8H [facility] ANNE Rx#: [id number] Sodium Chloride 0.9% 1, 240 240 20 000 ml @ 20 mls/hr IV . Q24H [facility]ARY ANNE Rx#:[id number] Intake, IV Titration 123.036 Amount Piperacillin-Tazobactam 3 100 .375 gm In Sodium Chloride 0.9% 100 ml @ 25 mls/hr IVPB Q8HR M[facility] ANNE Rx# :[id number] propofoL 1,000 mg In 23.036 Empty Bag 1 bag @ 50 MCG/ KG/MIN 14.61 mls/hr IV . Q6H51M MARY ANNE Rx#:[id number] Oral 100 Output: Urine 1090 1325 150 Other: Voiding Method Indwelling Catheter Indwelling Catheter Indwelling Catheter ABP, PAP, CO, CI - Last Documented Arterial Blood Pressure 116/105 - Exam No acute distress, oriented 3. Currently on 3 L nasal cannula. HEENT examination is grossly unremarkable. Neck supple. Full range of motion. No adenopathy thyromegaly or neck vein distention. Cardiovascular examination reveals regular rhythm rate. S1-S2 normal. No S3 or S4. No discernible murmur noted. Heart rate 74 bpm. Lungs reveal scattered bilateral rhonchi. No wheezes or crackles. Breath sound s equal bilaterally. 3 L saturations 99%. Abdomen soft bowel sounds are heard. No masses or tenderness. Extremities are intact. No cyanosis clubbing or edema. Skin is without rash or lesion. Neurologic examination is brief but nonfocal. - Labs CBC & Chem 7: 01/13/22 02:50 01/13/22 02:50 Labs: Abnormal Lab Results - Last 24 Hours (Table) 01/12/22 01/12/22 01/12/22 Range/Units 10:46 12:30 17:53 WBC (3.8-10.6) k/uL RBC (3.80-5.40) m/uL Hgb (11.4-16.0) gm/dL Hct (34.0-46.0) % MCHC (31.0-37.0) g/dL RDW (11.5-15.5) % Neutrophils # (1.3-7.7) k/uL Lymphocytes # (1.0-4.8) k/uL ABG pH 7.59 H* (7.35-7.45) ABG pO2 119 H (83-108) mmHg ABG HCO3 33 H (21-25) mmol/L ABG Total CO2 34 H (19-24) mmol/L ABG O2 Saturation 100.0 H (94-97) % Carbon Dioxide (22-30) mmol/L BUN (7-17) mg/dL Glucose (74-99) mg/dL POC Glucose (mg/dL) 132 H 141 H (70-110) mg/dL Total Protein (6.3-8.2) g/dL Albumin (3.5-5.0) g/dL 01/12/22 01/13/22 01/13/22 Range/Units 23:52 02:50 02:50 WBC 10.8 H (3.8-10.6) k/uL RBC 3.38 L (3.80-5.40) m/uL Hgb 8.6 L (11.4-16.0) gm/dL Hct 28.7 L (34.0-46.0) % MCHC 30.0 L (31.0-37.0) g/dL RDW 17.6 H (11.5-15.5) % Neutrophils # 9.8 H (1.3-7.7) k/uL Lymphocytes # 0.6 L (1.0-4.8) k/uL ABG pH (7.35-7.45) ABG pO2 (83-108) mmHg ABG HCO3 (21-25) mmol/L ABG Total CO2 (19-24) mmol/L ABG O2 Saturation (94-97) % Carbon Dioxide 33 H (22-30) mmol/L BUN 32 H (7-17) mg/dL Glucose 107 H (74-99) mg/dL POC Glucose (mg/dL) 113 H (70-110) mg/dL Total Protein 5.9 L (6.3-8.2) g/dL Albumin 2.9 L (3.5-5.0) g/dL Microbiology - Last 24 Hours (Table) 01/11/22 12:57 Blood Culture - Preliminary Blood No Growth after 24 hours Assessment and Plan Assessment: Acute hypoxemic and hypercapnic respiratory failure, secondary to both COPD exacerbation, and acute systolic CHF, status post intubation on January 09 and extubation on January 12. Status post bronchoscopy, for mucous plugging of the left mainstem bronchus. Acute non-ST; elevation myocardial infarction. Escherichia coli pneumonia. Escherichia coli and Klebsiella urinary tract infection. History of CVA. Metabolic encephalopathy. Paroxysmal atrial fibrillation. Severe COPD. Benign essential hypertension. Right breast cancer, S/P previous mastectomy. CAD, with previous three-vessel bypass grafting, November 2020. Mitral valve regurgitation. Ischemic cardiomyopathy. Acute on chronic systolic CHF. Ongoing tobacco dependence syndrome. 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 Plan: Plan dated 01/13/2022. The patient appears to be doing well. She was extubated yesterday, January 12. She remains on 3 L nasal cannula. She's getting saline at 20 mL an hour. Labs, x-rays, and medications are reviewed. The patient remains on Zosyn for E. coli and Klebsiella infections. We will continue to follow the patient, make recommendations were appropriate. Prognosis is guarded. The patient could be considered for possible transfer out of the intensive care unit. Time with Patient: Less than 30
[2022-01-13 12:18] LABS: Glucose,Whole Blood 100 mg/dL (70-110)
[2022-01-13] MEDS: ACETAMINOPHEN TAB 500 MG TAB PO PRN (13:52)
[2022-01-13 14:20] LABS: INR 1.1 (<1.2); Partial Thromboplastin Time 24.6 sec (22.0-30.0)
[2022-01-13 14:34] LABS: Anisocytosis Slight; Basophils % (A) 0 %; Eosinophils % (A) 0 %; HCT 28.7 % (34.0-46.0); HGB 8.5 gm/dL (11.4-16.0); Hypochromasia Marked; Lymphocytes # (A) 0.8 k/uL (1.0-4.8); Lymphocytes % (A) 7 %; MCH 25.2 pg (25.0-35.0); MCHC 29.5 g/dL (31.0-37.0); MCV 85.5 fL (80.0-100.0); Mean Platelet Volume 10.5; Monocytes # (A) 0.5 k/uL (0-1.0); Monocytes % (A) 4 %; Neutrophils # (A) 9.6 k/uL (1.3-7.7); Neutrophils % (A) 87 %; Platelet Count 173 k/uL (150-450); Poikilocytosis Slight; RBC 3.36 m/uL (3.80-5.40); RDW 17.8 % (11.5-15.5)
--- NOTE | 2022-01-13 14:36 | P.GSCN ---
History of Present Illness Consult date: 01/13/22 Reason for Consult: Arterial line bleed Requesting physician: Dani Banerjee History of present illness: This a pleasant 76-year-old female who was admitted to the hospital on 01/04/2022 acute hypoxic respiratory failure related to congestive heart failure and COPD. She has a history of coronary artery disease atrial fibrillation, cardiomyopathy, TIA, LV thrombus, hypertension, and valvular heart disease who is currently on Eliquis 5mg BID. Patient had been intubated on 01/09/2022 and a left brachial arterial line was placed by Dr. Madrigal. Nursing removed arterial line today and states that there is been bleeding for the last 3 hours from the site. They have applied pressure and T-band without any improvement. Dr. Steele was notified and recommended Surgicel to site. Nursing states it still continues to bleed. Patient is awake and alert, she is oriented 3. She is denying any difficulty with moving her arm or her fingers. She is denying any shortness of breath or chest pain. Repeat hemoglobin this afternoon is stable at 8.5 from 8.6 this morning. Review of Systems A 14 point review systems was completed all pertinent positives and negatives as stated in the HPI. Past Medical History Past Medical History: Atrial Fibrillation, Coronary Artery Disease (CAD), Cancer, Heart Failure, COPD, CVA/TIA, Hyperlipidemia, Hypertension, Mitral Valve Prolapse (MVP), Neurologic Disorder, Osteoarthritis (OA), Pneumonia, Skin Disorder, Sleep Apnea/CPAP/BIPAP, Vascular Disorder Additional Past Medical History / Comment(s): "Upper back non-cancerous mass removed 08/17/21 at [facility].". Multiple Sclerosis. PAD/chronic wounds left foot/lower leg, peripheral neuropathy. CVA Jul/Aug 2021. History of Any Multi-Drug Resistant Organisms: None Reported Past Surgical History: Appendectomy, Breast Surgery, Coronary Bypass/CABG, Heart Catheterization With Stent, Orthopedic Surgery, Tonsillectomy Additional Past Surgical History / Comment(s): 08/17/21 surgery at [facility]-cervical or upper back for mass, 11/2020 CABG 4 vessel, PCI/stents in , bilateral iliac arthrectomy/stents, left foot wound debridements, bronchoscopy/lavage, bilateral breast biopsies, D&C, lumpectomy right breast 08/2021. Right mastectomy (11/26/21) Past Anesthesia/Blood Transfusion Reactions: Motion Sickness Additional Past Anesthesia/Blood Transfusion Reaction / Comm: No hx blood transfusion. Date of Last Stent Placement:: 2008 Past Psychological History: Anxiety, Depression Additional Psychological History / Comment(s): Pt's due to Covid beginning of August 2021. Smoking Status: Former smoker Past Alcohol Use History: Rare Additional Past Alcohol Use History / Comment(s): Pt started smoking in 1960 and quit May 2020. Past Drug Use History: None Reported Additional Drug Use History / Comment(s): CBD lotion. - Past Family History Father Family Medical History: No Reported History Mother Family Medical History: Cancer Additional Family Medical History / Comment(s): Breast and brain cancer. Medications and Allergies Home Medications Medication Instructions Recorded Confirmed Type Atorvastatin [Lipitor] 80 mg PO HS 08/02/20 01/04/22 History Metoprolol Tartrate [Lopressor] 50 mg PO BID #60 tab 12/05/20 01/04/22 Rx ALPRAZolam [Xanax] 0.25 mg PO BID PRN 07/18/21 01/04/22 History Gabapentin [Neurontin] 100 mg PO TID 07/18/21 01/04/22 History Escitalopram [Lexapro] 5 mg PO HS 08/18/21 01/04/22 History Aspirin [Adult Low Dose Aspirin EC] 81 mg PO DAILY 08/20/21 01/04/22 History Apixaban [Eliquis] 5 mg PO BID #0 08/22/21 01/04/22 Rx Albuterol Sulfate [Ventolin HFA] 1 puff INHALATION RT-Q4H PRN 09/13/21 01/04/22 History Furosemide [Lasix] 20 mg PO BID PRN 09/13/21 01/04/22 History Fluticasone/Umeclidin/Vilanter 1 puff INHALATION RT-DAILY PRN 11/01/21 01/04/22 History [Trelegy Ellipta 100-62.5-25] Baclofen 10 mg PO QID PRN 01/04/22 01/04/22 History Letrozole [Femara] 2.5 mg PO DAILY 01/04/22 01/04/22 History lisinopriL [Zestril] 2.5 mg PO DAILY 01/04/22 01/04/22 History Allergies Allergy/AdvReac Type Severity Reaction Status Date / Time sumatriptan [From Imitrex] AdvReac Chest Pain Verified 01/04/22 22:47 Surgical - Exam Vital Signs Temp Pulse Resp BP Pulse Ox 98.0 F 130 H 22 132/81 100 01/04/22 19:39 01/04/22 19:39 01/04/22 19:39 01/04/22 19:39 01/04/22 19:39 General appearance: The patient is alert, oriented, appears in no acute distress. HET: Head is normocephalic and atraumatic. Pupils are equal and reactive. Neck: Supple without lymphadenopathy. Trachea midline. Extremities: Normal skin color and turgor. Left antecubital region with dressing and pressure per nursing staff with continued bleeding from the brachial arterial line site. Patient has palpable radial pulse. Good capillary refill and sensation in her hand and fingers. Neurological: No focal deficits. Strength and sensation are grossly intact. Results - Labs 01/13/22 13:47 01/13/22 02:50 Abnormal Lab Results - Last 24 Hours (Table) 01/12/22 01/12/22 01/13/22 Range/Units 17:53 23:52 02:50 WBC 10.8 H (3.8-10.6) k/uL RBC 3.38 L (3.80-5.40) m/uL Hgb 8.6 L (11.4-16.0) gm/dL Hct 28.7 L (34.0-46.0) % MCHC 30.0 L (31.0-37.0) g/dL RDW 17.6 H (11.5-15.5) % Neutrophils # 9.8 H (1.3-7.7) k/uL Lymphocytes # 0.6 L (1.0-4.8) k/uL Carbon Dioxide (22-30) mmol/L BUN (7-17) mg/dL Glucose (74-99) mg/dL POC Glucose (mg/dL) 141 H 113 H (70-110) mg/dL Total Protein (6.3-8.2) g/dL Albumin (3.5-5.0) g/dL 01/13/22 Range/Units 02:50 WBC (3.8-10.6) k/uL RBC (3.80-5.40) m/uL Hgb (11.4-16.0) gm/dL Hct (34.0-46.0) % MCHC (31.0-37.0) g/dL RDW (11.5-15.5) % Neutrophils # (1.3-7.7) k/uL Lymphocytes # (1.0-4.8) k/uL Carbon Dioxide 33 H (22-30) mmol/L BUN 32 H (7-17) mg/dL Glucose 107 H (74-99) mg/dL POC Glucose (mg/dL) (70-110) mg/dL Total Protein 5.9 L (6.3-8.2) g/dL Albumin 2.9 L (3.5-5.0) g/dL Microbiology - Last 24 Hours (Table) 01/11/22 12:57 Blood Culture - Preliminary Blood No Growth after 24 hours Diabetes panel 01/13/22 Range/Units 02:50 Sodium 141 (137-145) mmol/L Potassium 3.7 (3.5-5.1) mmol/L Chloride 104 (98-107) mmol/L Carbon Dioxide 33 H (22-30) mmol/L BUN 32 H (7-17) mg/dL Creatinine 0.69 (0.52-1.04) mg/dL Glucose 107 H (74-99) mg/dL Calcium 8.5 (8.4-10.2) mg/dL AST 29 (14-36) U/L ALT 27 (4-34) U/L Alkaline Phosphatase 63 (38-126) U/L Total Protein 5.9 L (6.3-8.2) g/dL Albumin 2.9 L (3.5-5.0) g/dL Calcium panel 01/13/22 Range/Units 02:50 Calcium 8.5 (8.4-10.2) mg/dL Albumin 2.9 L (3.5-5.0) g/dL Pituitary panel 01/13/22 Range/Units 02:50 Sodium 141 (137-145) mmol/L Potassium 3.7 (3.5-5.1) mmol/L Chloride 104 (98-107) mmol/L Carbon Dioxide 33 H (22-30) mmol/L BUN 32 H (7-17) mg/dL Creatinine 0.69 (0.52-1.04) mg/dL Glucose 107 H (74-99) mg/dL Calcium 8.5 (8.4-10.2) mg/dL Adrenal panel 01/13/22 Range/Units 02:50 Sodium 141 (137-145) mmol/L Potassium 3.7 (3.5-5.1) mmol/L Chloride 104 (98-107) mmol/L Carbon Dioxide 33 H (22-30) mmol/L BUN 32 H (7-17) mg/dL Creatinine 0.69 (0.52-1.04) mg/dL Glucose 107 H (74-99) mg/dL Calcium 8.5 (8.4-10.2) mg/dL Total Bilirubin 0.5 (0.2-1.3) mg/dL AST 29 (14-36) U/L ALT 27 (4-34) U/L Alkaline Phosphatase 63 (38-126) U/L Total Protein 5.9 L (6.3-8.2) g/dL Albumin 2.9 L (3.5-5.0) g/dL Assessment and Plan Assessment: 1. Left brachial artery bleed status post arterial line removal 2. Acute hypoxic respiratory failure 3. COPD 4. Congestive heart failure 5. History atrial fibrillation on Eliquis Plan: 1. Hold pressure to the left brachial artery site 2. Hold Eliquis 3. Surgicel to site 4. Keep nothing by mouth 5. CBC, type and screen 6. Further recommendations per vascular surgeon forthcoming Thank you for this consultation, we will continue to follow. The impression and plan of care has been dictated as directed. I performed a history and examination of this patient, discussed the same with the dictator. I agree with the dictator's note ,documented as a scribe. Any additional findings or plans will be noted.
[2022-01-13] MEDS ORDERED: ALPRAZolam 0.25 MG TAB PO PRN (17:46)
--- NOTE | 2022-01-13 18:44 | P.PN ---
Subjective Patient is a pleasant 46-year-old female came in with compensative shortness of breath and orthopnea, patient does have history of congestive heart failure EF of around 25-30% in the past patient has ischemic cardiomyopathy had heart attacks in the past and CABG in the past. Patient is found to have elevated BNP of 10,000 and the patient the chest x-ray is consistent with congestive heart failure with bilateral pleural effusions and primary congestion. Patient the quit smoking many months ago started smoking again last July. Chest x-ray did not show any pneumonia patient is comparing of coffee per day sputum production. had the atrial fibrillation with rapid ventricular rate on admission was on Cardizem uses metoprolol Cardizem is being this can urine patient's metoprolol dose will be increased cardiology was consulted. 01/06/2022 Patient evaluated today resting in bed. Overall she is feeling better. She continues on oxygen via nasal cannula 2-3 L, oxygen saturation is 99% and this can be weaned off probably. She has been started on eliquis. Metoprolol has been increased to 75 mg PO BID and she is now in sinus rhythm. She uses trelegy inhaler at home which is not stocked here for this reason she is on symbicort. E chocardiogram has been completed showing EF of 45% with inferobasal hypokinesia, there is mild to moderate mitral regurgitation. She continues on IV lasix BID, has been down -1.4 Liters in the last 24 hours. Labs today showing sodium 139, potassium 4.2, BUN 18, creatinine 0.86, magnesium 1.6. Cardiology is recommending cardiac cath when she is medically stable. 01/07/2022 Patient elevated today resting in bed, she is alert 1 which is a change in mental status. Apparently this happened throughout the overnight caregiver. Brain CT without contrast was completed today which shows no hemorrhage and no acute stroke. Continue to monitor neuro status will start patient on a small dose of Seroquel the evening for some possible acute hospital delirium. Patient is on Lexapro and accommodation can prolong QT interval which was reviewed and her QTC is showing 385 on EKG. Labs show serum sodium 139, potassium 3.7, chloride 97, CO2 33, BUN 19, creatinine 0.91. Blood pressure today 134/67. IV lasix decreased to daily. 01/08/2022 Patient evaluated today and her mentation has improved slighty she is alert x 2 now. She underwent repeat brain CT 01/07/2022 in the evening redemonstrating right parietal infarct with encephalomalacia, however, this CT reports continued evolution. No new areas for acute/subacute infarct. There is nonspecific white matter changes. Patient to be evaluated today by neurology. She is afebrile, heart rate 83, blood pressure 159/71, 96% on 3L Nasal cannula, she was dyspneic today on exam, chest xray was completed showing some basilar atelectasis. Labs today showing sodium 140, potassium 4.2, CO2 increased up to 37, ABG's were ordered last night showing PO2 of 72, HCO3 34, total CO2 36, pCO2 58. She has been transitioned to oral lasix today. 01/09/2022 Patient was upgraded to intensive care unit and placed on BiPAP yesterday afternoon, she was started on precedex gtt through out the night for acute agitation. Repeat ABGs were completed showing pH 7.55, pCO2 35, pO2 144, HCO3 30, total CO2 32, oxygen saturation 100%. Repeat troponin level showing 0.503 w hich is trending down, d-dimer was completed at 2.19. Patient had a chest xray completed this morning showing opacification of the left lung suggesting complete collapse of the left lung with suspected mucous plug or obstruction. 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 ENT was consulted for this. Bronchoscopy per reports showed mucous plugging in the left mainstream bronchus which was extracted and Patient is now on mechanical ventilator with FiO2 of 50%. Repeat chest xray post bronchoscopy shows improved aeration of the left upper lobe with persistent abnormal density in the lower 2/3 of the chest. Labs today showing white count 11.3, hgb 9.8, sodium 142, potassium 3.5, BUN 7, creatinine 3.2. Glucose in the 120s. Urinalysis showing cloudy urine with trace protein, moderate blood, ketones, large leukocyte esterase, WC 149, many white blood cell clumps, high hyaline casts. Urine culture is pending. She has been started on IV zosyn empirically, as well as IV solumedrol 40 mg Q8h, symbicort, duonebs. Lasix is on hold and she is receiving normal saline at 50 mLs per hour. Precedex has been discontinued. She is being followed by neurology, pulmonary colorectal surgeon, and cardiology services. 01/10/2022 Patient continues to be monitored in the intensive care unit on mechanical ventilator with FiO2 40%. She is status post bronchoscopy with evacuation of mucous plugging left mainstem bronchus. Today her chest xray shows improvement in aeration with persistent abnormal density in the left lung base. No wheezing noted today, she does sound rhonchorous today with JVD evident. She continues off lasix. Labs today showing white count of 9.9, hemoglobin 9.5, sodium 142, potassium 3.8, CO2 31, BUN 36, creatinine 0.90. Blood glucoses in the 160s. She has T-Max 101.3 in the last 24 hours, heart rate showing sinus kathrin cardia in the 50s, blood pressure 88/40, 97% oxygenation, Cardiology is following the pat ient as well as neurology and pulmonary colorectal surgeon. She continues on IV zosyn, IV propofol, she is requiring pressor support. Continues on IV solumedrol and blood sugars will be monitored closely. Dietary has also been consulted and patient will be started on enteral tube feedings. Family has changed code status to mechanical ventilation only. She is wiggling toes on examination. 01/11/2022 Patient continues to be monitored in the intensive care unit. She is currently intubated with an FiO2 of 40% oxygen saturations 99-100%. She has been febrile throughout the evening with T-Max 100.6. Patient complains of difficulty in breathing and asking to be suctioned. Continues with significant secretions. Patients chest xray today shows correlation for congestive heart failure versus pneumonia. She has been started on enteral tube feedings with novolog coverage every 6 hours. Blood glucose in the 180s. A small dose of levemir was given today. She continues on IV solu-medrol 40 mg Q8h. She is off pressor support and blood pressures are 115/50. She is sinus rhythm with ST depression and inverted T Wave. Urine culture has finalized showing E.Coli and Klebsiella, and bronchial washing showing E.Coli. Antibiotics have been changed to Ceftriaxone 2gm Q24 hours. We will order a blood culture today as well. 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 Cardiology is following the patient and lasix continues to be on hold. She is in a positive fluid balance of about 1200 mL over the last few days with evidence for JVD. She is continued on Resume the care of the patient on 01/12/2022 Patient remains in the ICU in critical condition, she is intubated and on mechanical ventilation with pulmonary/critical care team following her closely. I did help with and management. She is on multiple medications including those of Eliquis for her paroxysmal atrial fibrillation, she is on IV Lasix 20 mg twice daily, salmeterol 40 mg and Zosyn for her multiple problems including hypoxic respiratory failure secondary to E. coli left lower lobe pneumonia, good COPD exacerbation and acute systolic CHF with ejection fraction of 45%. Also she has evidence of chronic rectal stroke, iron deficiency anemia and 2 more close to the vocal cords. Patient is followed closely by pulmonary services. Her hemoglobin is 8.6 and, and access 31. She is on PEEP of 5 and she has no fever or currently. Echocardiogram showing ejection fraction of 45% and hypokinesia well chest x-ray showing multifocal airspace opacity. Bring a portion cultures positive for E. coli were urine cultures positive for E. coli and Klebsiella. ProBNP is elevated at 10 400 01/13/2022 Patient is a status post extubation, today she was lying in bed comfortable, no tachypnea, no chest pain or coughing. She is saturating well until 23 L oxygen via nasal cannula. No other complaints and she tolerates diet well. She has little back pain. Also she is awake and alert. She still has Tadeo catheter. Vital signs stable and labs are stable as well. Hemoglobin 8.5 bicarb is 33. Chest x-ray showing mild radiation and S/p extubation. She remains on Solu-Medrol 40 mg, Zosyn, IV Lasix 20 mg twice a day and home dose of Eliquis 5 mg. Objective - Vital Signs Vital signs: Vital Signs Temp 97.0 F L 01/13/22 08:00 Pulse 64 01/13/22 10:00 Resp 15 01/13/22 10:00 BP 137/91 01/13/22 10:00 Pulse Ox 92 L 01/13/22 10:00 FiO2 40 01/12/22 09:10 Intake & Output 01/12/22 01/13/22 01/13/22 18:59 06:59 18:59 Intake Total 563.036 240 80 Output Total 1090 1325 500 Balance -526.964 -1085 -420 Weight 49.7 kg Intake: IV 340 240 80 Piperacillin-Tazobactam 3 100 .375 gm In Sodium Chloride 0.9% 100 ml @ 25 mls/hr IVPB Q8H MARY ANNE Rx#: [id number] Sodium Chloride 0.9% 1, 240 240 80 000 ml @ 20 mls/hr IV . Q24H MARY ANNE Rx#:[id number] Intake, IV Titration 123.036 Amount Piperacillin-Tazobactam 3 100 .375 gm In Sodium Chloride 0.9% 100 ml @ 25 mls/hr IVPB Q8HR MARY ANNE Rx# :[id number] propofoL 1,000 mg In 23.036 Empty Bag 1 bag @ 50 MCG/ KG/MIN 14.61 mls/hr IV . Q6H51M MARY ANNE Rx#:[id number] Oral 100 Output: Urine 1090 1325 500 Other: Voiding Method Indwelling Catheter Indwelling Catheter Indwelling Catheter ABP, PAP, CO, CI - Last Documented Arterial Blood Pressure 131/89 - Exam -GENERAL: The patient is awake and alert and oriented 3, no respiratory distress. HEENT: Pupils are round and equally reacting to light. EOMI. No scleral icterus. No conjunctival pallor. Normocephalic, atraumatic. No pharyngeal erythema. No thyromegaly. CARDIOVASCULAR: S1 and S2 present. No murmurs, rubs, or gallops. -PULMONARY: Chest is clear to auscultation, no wheezing, multiple crackles bilaterally -ABDOMEN: Soft, nontender, nondistended, normoactive bowel sounds. No palpable organomegaly. Tadeo catheter in place MUSCULOSKELETAL: No joint swelling or deformity. EXTREMITIES: No cyanosis, clubbing, or pedal edema. NEUROLOGICAL: Gross neurological examination did not reveal any focal deficits. SKIN: No rashes. no petechiae. - Labs CBC & Chem 7: 01/13/22 13:47 01/13/22 02:50 Labs: Abnormal Lab Results - Last 24 Hours (Table) 01/12/22 01/12/22 01/12/22 Range/Units 10:46 12:30 17:53 WBC (3.8-10.6) k/uL RBC (3.80-5.40) m/uL Hgb (11.4-16.0) gm/dL Hct (34.0-46.0) % MCHC (31.0-37.0) g/dL RDW (11.5-15.5) % Neutrophils # (1.3-7.7) k/uL Lymphocytes # (1.0-4.8) k/uL ABG pH 7.59 H* (7.35-7.45) ABG pO2 119 H (83-108) mmHg ABG HCO3 33 H (21-25) mmol/L ABG Total CO2 34 H (19-24) mmol/L ABG O2 Saturation 100.0 H (94-97) % Carbon Dioxide (22-30) mmol/L BUN (7-17) mg/dL Glucose (74-99) mg/dL POC Glucose (mg/dL) 132 H 141 H (70-110) mg/dL Total Protein (6.3-8.2) g/dL Albumin (3.5-5.0) g/dL 01/12/22 01/13/22 01/13/22 Range/Units 23:52 02:50 02:50 WBC 10.8 H (3.8-10.6) k/uL RBC 3.38 L (3.80-5.40) m/uL Hgb 8.6 L (11.4-16.0) gm/dL Hct 28.7 L (34.0-46.0) % MCHC 30.0 L (31.0-37.0) g/dL RDW 17.6 H (11.5-15.5) % Neutrophils # 9.8 H (1.3-7.7) k/uL Lymphocytes # 0.6 L (1.0-4.8) k/uL ABG pH (7.35-7.45) ABG pO2 (83-108) mmHg ABG HCO3 (21-25) mmol/L ABG Total CO2 (19-24) mmol/L ABG O2 Saturation (94-97) % Carbon Dioxide 33 H (22-30) mmol/L BUN 32 H (7-17) mg/dL Glucose 107 H (74-99) mg/dL POC Glucose (mg/dL) 113 H (70-110) mg/dL Total Protein 5.9 L (6.3-8.2) g/dL Albumin 2.9 L (3.5-5.0) g/dL Microbiology - Last 24 Hours (Table) 01/11/22 12:57 Blood Culture - Preliminary Blood No Growth after 24 hours Assessment and Plan Assessment: -Acute hypoxic and hypercapnic Respiratory Failure patient is on mechanical ventilator, status post extubation on 01/12. She is status post bronchoscopy which reveals mucous plugging of left mainstem bronchus. Left lung aeration has improved on imaging. Culture showing E.Coli and antibiotics have been adjusted to Rocephin. -Acute on chronic systolic CHF, ejection fraction 45% - Acute COPD exacerbation -Urinary tract infection with sepsis, E.Coli and Klebsiella finalized on cultures, antibiotics have been adjusted to rocephin -Elevated troponins, likely NSTEMI per cardiology will most likely require cardiac cath when medically sable -Atrial fibrillation with rapid rate patient has a known paroxysmal A. fib does take Eliquis for anticoagulation. Patient is continued on metoprolol. -Altered mental status with repeat brain CT showing continued evolution of right parietal infarct with encephalomalacia, most likely this is toxic metabolic encephalopathy multifactorial from urinary tract infection, pneumonia and heart failure, improving. 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 fib. Continue with Eliquis home dose of 5 mg Continue with IV Lasix Continue with IV Solu-Medrol Continue with antibiotic Zosyn patient may benefit from cardiac cath upon improvement of her critical illness Patient were were ENT evaluation for her vocal cord tumor Several consultants of the case including ICU, neurologist and software engineer developer Labs and medication were reviewed.. Continue same treatment. Continue with symptomatic treatment. Resume home medication. Monitor lytes and vitals. DVT and GI prophylaxis. Further recommendations as per clinical course of the patient DVT prophylaxis: Eliquis GI Prophylaxis: ppi Prognosis is guarded
[2022-01-13] MEDS: IPRATROPIUM-ALBUTEROL 3 ML NEB INHALATION PRN (20:02)
[2022-01-13 20:55] LABS: Glucose,Whole Blood 174 mg/dL (70-110)
[2022-01-13] MEDS: ATORVASTATIN 80 MG TAB PO SCH (21:29)
[2022-01-13] MEDS: INSULIN DETEMIR (LEVEMIR) 100 UNIT/ML SYR SQ SCH (21:30)
[2022-01-13] MEDS: ESCITALOPRAM 5 MG TAB PO SCH (22:13)
[2022-01-14] MEDS: HYDROmorphone 1 MG/ML 1 ML SYRINGE IVP PRN (02:48)
[2022-01-14 06:04] LABS: Glucose,Whole Blood 141 mg/dL (70-110)
[2022-01-14] MEDS: SODIUM CHLORIDE 0.9% 1,000 ML IV SCH (06:17)
[2022-01-14] MEDS: INSULIN ASPART (NovoLOG) 100 UNIT/ML VIAL SQ SCH ×4 (06:21→20:46)
[2022-01-14] MEDS: IPRATROPIUM 0.5 MG/2.5 ML NEBU INHALATION SCH ×4 (08:06→20:11)
[2022-01-14] MEDS: IPRATROPIUM-ALBUTEROL 3 ML NEB INHALATION PRN ×4 (08:06→20:12)
[2022-01-14] MEDS: methylPREDNISolone SOD SUCCI 40 MG/ML 1 ML VIAL IV SCH ×3 (09:45→23:30)
[2022-01-14] MEDS: PANTOPRAZOLE 40 MG/10 ML VIAL IVP SCH (09:46)
[2022-01-14] MEDS: PIPERACILLIN-TAZOBACTAM 3.375 GM in SODIUM CHLORIDE 0.9% 100 ML IVPB SCH ×3 (09:46→23:30)
[2022-01-14] MEDS: GABAPENTIN 100 MG CAP PO SCH ×3 (09:46→20:46)
[2022-01-14] MEDS: FOLIC ACID 1 MG TAB PO SCH (09:46)
[2022-01-14] MEDS: BACLOFEN 10 MG TAB PO SCH ×3 (09:46→20:46)
[2022-01-14] MEDS: NITROGLYCERIN OINT 1 INCH/GM PACKET TOPICAL SCH ×4 (09:46→23:30)
[2022-01-14] MEDS: ASPIRIN 81 MG PO SCH (09:46)
[2022-01-14] MEDS: METOPROLOL TARTRATE 25 MG TAB PO SCH ×2 (09:46→21:20)
[2022-01-14] MEDS: FUROSEMIDE 10 MG/ML 2 ML VIAL IV SCH (09:46)
[2022-01-14] MEDS: APIXABAN 5 MG TAB PO SCH ×2 (09:47→20:46)
--- NOTE | 2022-01-14 09:51 | P.PN ---
Subjective Progress Note Date: 01/14/22 Principal diagnosis: Respiratory failure. Reevaluated today on 01/10/22, patient remains in the ICU, intubated and mechanically ventilated. Patient is on assist control rate of 24 tidal volume 350 FiO2 40% and PEEP of 5. Overnight the patient required small dose of norepinephrine at 0.04 mcg/kg/m. She is sedated, on propofol at 7.5 mcg/kg/h, patient is still receiving Zosyn for presumptive left sided pneumonia, and cultures are pending. ABG today showed a pO2 of 84 pCO2 37 pH of 7.55. Continues to have left lower lobe consolidation on chest x-ray, however dramatic improvement noted on the chest x-ray in comparison to her chest x-ray when she was admitted to the ICU showing a complete collapse of the left lung. WBC count today is 9.9 hemoglobin is 9.5. Basic metabolic profile is relatively normal. Patient is on enteral feeding. Tolerating enteral feeding well. Reevaluated today on 01/11/22, patient remains in the ICU, intubated and mechanically ventilated. Patient is awake, however she seems to be extremely restless, agitated, and tachypneic. Respiratory rate is in the mid 30s. Patient seems to be working hard to breathe although she is on assist control mode of mechanical ventilation. Hence I believe the patient is not quite ready to wean and extubate at this point yet. Her ventilator settings are assist control rate of 24 tidal volume 350 FiO2 40% PEEP of 5 and I cut down her FiO2 down to 35%. Her ABG showed a pO2 of 107 pCO2 37 pH of 7.52. Patient is now off sedation, and I recommended going back on sedation, as she is not quite ready to wean. Patient will be a difficult extubation, and she will likely be a failure to wean easily. She is on IV fluid in the form of point tenderness saline at 50 mL per hour. Chest x-ray showed significant improvement in her left lung opacification and left lower lobe pneumonia. However the chest x-ray is suggestive of mild perihilar interstitial edema. Bronchial washings are positive for E. coli and urine cultures are positive for E. coli and Klebsiella oxytoca. Both are sensitive to Zosyn, and the patient is already on Zosyn WBC count today is 8.0 hemoglobin is 8.4. Platelets are 193. Basic metabolic profile is relatively normal. BUN is 40 creatinine 0.61. Liver profile is basically unremarkable. Reevaluated today on 01/12/2022, patient remains in the ICU, intubated and mechanically ventilated. She is off sedation this morning, patient is awake, and she follows simple instructions but she seems to be generally weak. She is on assist control rate of 24 tidal volume 350 FiO2 35% PEEP of 5. ABG showed a pO2 of 108 pCO2 of 32 pH of 7.59, patient had a baseline pCO2 in the 50s, hence I cut down her rate from 24-20 in the meantime I recommended giving the patient a trial of pressure support of 10 and CPAP. Since the patient is awake, at the she will receive a weaning trial, although my clinical suspicion that the patient will be difficult to wean based on her baseline pulmonary status and cardiac status. Chest x-ray showed evidence of pulmonary congestion/slight int erstitial edema, and I recommended Lasix which is given twice a day. Patient is on vitamin Hpwe at 41 cc per hour. Tolerating that quite well. WBC count today is 9.7 hemoglobin 8.6. Basic metabolic profile is normal renal profile is normal. Bicarb is 31. Progress note dated 01/13/2022. The patient is seen today in room 258. She was admitted to the hospital on January 04. She came with atrial fibrillation and RVR, COPD, and CHF. She was intubated on January 09, extubated yesterday on January 12. Currently, she is resting comfortably. She is on 3 L nasal cannula. He is getting saline at 20 mL an hour. She has no major complaints. White count 10.8, hemoglobin 8.6, hematocrit 28.7, and platelet count 266,000. Sodium 141, potassium 3.7, chlorides 104, CO2 33, BUN 32, creatinine 0.69. Albumin 2.9. Chest x-ray shows improvement in overall aeration. Microbiologic studies show urine to be positive for Escherichia coli, and Klebsiella, and bronchial washings from January 09 be positive for E. coli. She is currently on Zosyn. Progress note dated 01/14/2022. The patient was seen in the intensive care unit yesterday. She was moved out to the floor. Today she seen in room 378. Currently, the patient's on O2 at 3 L. She's getting saline at 20 mL an hour. The patient is talking on the phone, without any respiratory difficulty or distress. There is no conversational dyspnea or use of accessory muscles. No new labs today other than a glucose of 141. Objective - Vital Signs Vital signs: Vital Signs Temp 97.9 F 01/14/22 04:00 Pulse 72 01/14/22 08:16 Resp 16 01/14/22 08:16 BP 136/75 01/14/22 04:00 Pulse Ox 100 01/14/22 08:06 FiO2 40 01/12/22 09:10 Intake & Output 01/13/22 01/14/22 01/14/22 18:59 06:59 18:59 Intake Total 220 240 Output Total 900 1000 390 Balance -680 -760 -390 Weight 49.7 kg Intake: IV 120 240 Sodium Chloride 0.9% 1, 120 240 000 ml @ 20 mls/hr IV . Q24H MARY ANNE Rx#:[id number] Intake, IV Titration 100 Amount Piperacillin-Tazobactam 3 100 .375 gm In Sodium Chloride 0.9% 100 ml @ 25 mls/hr IVPB Q8HR MARY ANNE Rx# :[id number] Output: Urine 900 1000 390 Other: Voiding Method Indwelling Catheter Indwelling Catheter ABP, PAP, CO, CI - Last Documented Arterial Blood Pressure 125/63 - Exam No acute distress, oriented 3. Currently on 3 L nasal cannula. HEENT examination is grossly unremarkable. Neck supple. Full range of motion. No adenopathy thyromegaly or neck vein distention. Cardiovascular examination reveals regular rhythm rate. S1-S2 normal. No S3 or S4. No discernible murmur noted. Heart rate 72 bpm. Lungs reveal scattered bilateral rhonchi. No wheezes or crackles. Breath sounds equal bilaterally. 3 L saturation is 100%. Abdomen soft bowel sounds are heard. No masses or tenderness. Extremities are intact. No cyanosis clubbing or edema. Skin is without rash or lesion. Neurologic examination is brief but nonfocal. - Labs CBC & Chem 7: 01/13/22 13:47 01/13/22 02:50 Labs: Abnormal Lab Results - Last 24 Hours (Table) 01/13/22 01/13/22 01/14/22 Range/Units 13:47 20:54 06:02 WBC 11.0 H (3.8-10.6) k/uL RBC 3.36 L (3.80-5.40) m/uL Hgb 8.5 L (11.4-16.0) gm/dL Hct 28.7 L (34.0-46.0) % MCHC 29.5 L (31.0-37.0) g/dL RDW 17.8 H (11.5-15.5) % Neutrophils # 9.6 H (1.3-7.7) k/uL Lymphocytes # 0.8 L (1.0-4.8) k/uL POC Glucose (mg/dL) 174 H 141 H (70-110) mg/dL Microbiology - Last 24 Hours (Table) 01/11/22 12:57 Blood Culture - Preliminary Blood No Growth after 48 hours Assessment and Plan Assessment: Acute hypoxemic and hypercapnic respiratory failure, secondary to both COPD exacerbation, and acute systolic CHF, status post intubation on January 09 and extubation on January 12. Status post bronchoscopy, for mucous plugging of the left mainstem bronchus. Acute non-ST; elevation myocardial infarction. Escherichia coli pneumonia. Escherichia coli and Klebsiella urinary tract infection. History of CVA. Metabolic encephalopathy. Paroxysmal atrial fibrillation. Severe COPD. Benign essential hypertension. Right breast cancer, S/P previous mastectomy. CAD, with previous three-vessel bypass grafting, November 2020. Mitral valve regurgitation. Ischemic cardiomyopathy. Acute on chronic systolic CHF. Ongoing tobacco dependence syndrome. 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 Plan: Plan dated 01/13/2022. The patient appears to be doing well. She was extubated yesterday, January 12. She remains on 3 L nasal cannula. She's getting saline at 20 mL an hour. Labs, x-rays, and medications are reviewed. The patient remains on Zosyn for E. coli and Klebsiella infections. We will continue to follow the patient, make re commendations were appropriate. Prognosis is guarded. The patient could be considered for possible transfer out of the intensive care unit. Plan dated 01/14/2022. The patient was in the intensive care unit yesterday. The patient was extubated on January 12. Clinically, she's doing very well. She is on saline at 20 mL an hour. She is getting oxygen at 3 L. Saturations are 100% and probably the oxygen can be titrated down or off. Labs are reviewed. X-rays and medications are reviewed. The patient is treated for a E. coli and Klebsiella infection. She remains on Zosyn. We'll continue to follow as needed. Prognosis is guarded. Time with Patient: Less than 30
--- NOTE | 2022-01-14 11:08 | P.PN ---
Subjective Progress Note Date: 01/14/22 Principal diagnosis: Left brachial artery A-line bleed Pleasant 76-year-old female who was admitted into the ICU and intubated for acute hypoxic respiratory failure. She was extubated 2 days ago, yesterday her arterial line from her left brachial artery was discontinued and patient had significant bleeding for 3-4 hours post removal. Initially Surgicel and pressure was applied however bleeding continued. Dr. Steele came back 3 evaluate the patient thrombin was used at the site along with pressure dressing. Today she has not had any further bleeding from that site. Hemoglobin has been stable at 8.5. She denies any pain in her left arm. She has good capillary refill, denies any numbness or tingling. Objective - Vital Signs Vital signs: Vital Signs Temp 98 F 01/14/22 09:45 Pulse 88 01/14/22 09:45 Resp 18 01/14/22 09:45 BP 128/63 01/14/22 09:45 Pulse Ox 100 01/14/22 09:45 FiO2 40 01/12/22 09:10 Intake & Output 01/13/22 01/14/22 01/14/22 18:59 06:59 18:59 Intake Total 220 240 Output Total 900 1000 390 Balance -680 -760 -390 Weight 49.7 kg Intake: IV 120 240 Sodium Chloride 0.9% 1, 120 240 000 ml @ 20 mls/hr IV . Q24H MARY ANNE Rx#:[id number] Intake, IV Titration 100 Amount Piperacillin-Tazobactam 3 100 .375 gm In Sodium Chloride 0.9% 100 ml @ 25 mls/hr IVPB Q8HR MARY ANNE Rx# :[id number] Output: Urine 900 1000 390 Other: Voiding Method Indwelling Catheter Indwelling Catheter ABP, PAP, CO, CI - Last Documented Arterial Blood Pressure 125/63 - Exam General appearance: The patient is alert, oriented, appears in no acute distress. HET: Head is normocephalic and atraumatic. Pupils are equal and reactive. Neck: Supple without lymphadenopathy. Trachea midline. Extremities: Left arm with pressure dressing that is clean dry and intact. Some notable swelling to the lower forearm with a palpable radial pulse. Good capillary refill and good range of motion. Dressing was removed there was no bleeding at this site, minimal bruising. Minimal pressure dressing reapplied. Neurological: No focal deficits. Strength and sensation are grossly intact. - Labs CBC & Chem 7: 01/13/22 13:47 01/13/22 02:50 Labs: Abnormal Lab Results - Last 24 Hours (Table) 01/13/22 01/13/22 01/14/22 Range/Units 13:47 20:54 06:02 WBC 11.0 H (3.8-10.6) k/uL RBC 3.36 L (3.80-5.40) m/uL Hgb 8.5 L (11.4-16.0) gm/dL Hct 28.7 L (34.0-46.0) % MCHC 29.5 L (31.0-37.0) g/dL RDW 17.8 H (11.5-15.5) % Neutrophils # 9.6 H (1.3-7.7) k/uL Lymphocytes # 0.8 L (1.0-4.8) k/uL POC Glucose (mg/dL) 174 H 141 H (70-110) mg/dL Microbiology - Last 24 Hours (Table) 01/11/22 12:57 Blood Culture - Preliminary Blood No Growth after 48 hours Assessment and Plan Assessment: 1. Left brachial artery bleed status post arterial line removal 2. Acute hypoxic respiratory failure 3. COPD 4. Congestive heart failure 5. History atrial fibrillation on Eliquis Plan: 1. Keep 4 x 4 with Kerlix to A-line site, with minimal pressure 2. May resume Eliquis this evening 3. There is no indication for any surgical intervention. Thank you for this consultation, we will continue to follow. The impression and plan of care has been dictated as directed. I performed a history and examination of this patient, discussed the same with the dictator. I agree with the dictator's note ,documented as a scribe. Any additional findings or plans will be noted.
[2022-01-14 11:40] LABS: Glucose,Whole Blood 153 mg/dL (70-110)
--- NOTE | 2022-01-14 11:44 | P.PN ---
Subjective Patient is a pleasant 46-year-old female came in with compensative shortness of breath and orthopnea, patient does have history of congestive heart failure EF of around 25-30% in the past patient has ischemic cardiomyopathy had heart attacks in the past and CABG in the past. Patient is found to have elevated BNP of 10,000 and the patient the chest x-ray is consistent with congestive heart failure with bilateral pleural effusions and primary congestion. Patient the quit smoking many months ago started smoking again last July. Chest x-ray did not show any pneumonia patient is comparing of coffee per day sputum production. had the atrial fibrillation with rapid ventricular rate on admission was on Cardizem uses metoprolol Cardizem is being this can urine patient's metoprolol dose will be increased cardiology was consulted. 01/06/2022 Patient evaluated today resting in bed. Overall she is feeling better. She continues on oxygen via nasal cannula 2-3 L, oxygen saturation is 99% and this can be weaned off probably. She has been started on eliquis. Metoprolol has been increased to 75 mg PO BID and she is now in sinus rhythm. She uses trelegy inhaler at home which is not stocked here for this reason she is on symbicort. E chocardiogram has been completed showing EF of 45% with inferobasal hypokinesia, there is mild to moderate mitral regurgitation. She continues on IV lasix BID, has been down -1.4 Liters in the last 24 hours. Labs today showing sodium 139, potassium 4.2, BUN 18, creatinine 0.86, magnesium 1.6. Cardiology is recommending cardiac cath when she is medically stable. 01/07/2022 Patient elevated today resting in bed, she is alert 1 which is a change in mental status. Apparently this happened throughout the handle finisher. Brain CT without contrast was completed today which shows no hemorrhage and no acute stroke. Continue to monitor neuro status will start patient on a small dose of Seroquel the evening for some possible acute hospital delirium. Patient is on Lexapro and accommodation can prolong QT interval which was reviewed and her QTC is showing 385 on EKG. Labs show serum sodium 139, potassium 3.7, chloride 97, CO2 33, BUN 19, creatinine 0.91. Blood pressure today 134/67. IV lasix decreased to daily. 01/08/2022 Patient evaluated today and her mentation has improved slighty she is alert x 2 now. She underwent repeat brain CT 01/07/2022 in the evening redemonstrating right parietal infarct with encephalomalacia, however, this CT reports continued evolution. No new areas for acute/subacute infarct. There is nonspecific white matter changes. Patient to be evaluated today by neurology. She is afebrile, heart rate 83, blood pressure 159/71, 96% on 3L Nasal cannula, she was dyspneic today on exam, chest xray was completed showing some basilar atelectasis. Labs today showing sodium 140, potassium 4.2, CO2 increased up to 37, ABG's were ordered last night showing PO2 of 72, HCO3 34, total CO2 36, pCO2 58. She has been transitioned to oral lasix today. 01/09/2022 Patient was upgraded to intensive care unit and placed on BiPAP yesterday afternoon, she was started on precedex gtt through out the night for acute agitation. Repeat ABGs were completed showing pH 7.55, pCO2 35, pO2 144, HCO3 30, total CO2 32, oxygen saturation 100%. Repeat troponin level showing 0.503 w hich is trending down, d-dimer was completed at 2.19. Patient had a chest xray completed this morning showing opacification of the left lung suggesting complete collapse of the left lung with suspected mucous plug or obstruction. 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 ENT was consulted for this. Bronchoscopy per reports showed mucous plugging in the left mainstream bronchus which was extracted and Patient is now on mechanical ventilator with FiO2 of 50%. Repeat chest xray post bronchoscopy shows improved aeration of the left upper lobe with persistent abnormal density in the lower 2/3 of the chest. Labs today showing white count 11.3, hgb 9.8, sodium 142, potassium 3.5, BUN 7, creatinine 3.2. Glucose in the 120s. Urinalysis showing cloudy urine with trace protein, moderate blood, ketones, large leukocyte esterase, WC 149, many white blood cell clumps, high hyaline casts. Urine culture is pending. She has been started on IV zosyn empirically, as well as IV solumedrol 40 mg Q8h, symbicort, duonebs. Lasix is on hold and she is receiving normal saline at 50 mLs per hour. Precedex has been discontinued. She is being followed by neurology, pulmonary glassware finisher, and cardiology services. 01/10/2022 Patient continues to be monitored in the intensive care unit on mechanical ventilator with FiO2 40%. She is status post bronchoscopy with evacuation of mucous plugging left mainstem bronchus. Today her chest xray shows improvement in aeration with persistent abnormal density in the left lung base. No wheezing noted today, she does sound rhonchorous today with JVD evident. She continues off lasix. Labs today showing white count of 9.9, hemoglobin 9.5, sodium 142, potassium 3.8, CO2 31, BUN 36, creatinine 0.90. Blood glucoses in the 160s. She has T-Max 101.3 in the last 24 hours, heart rate showing sinus kathrin cardia in the 50s, blood pressure 88/40, 97% oxygenation, Cardiology is following the pat ient as well as neurology and pulmonary glassware finisher. She continues on IV zosyn, IV propofol, she is requiring pressor support. Continues on IV solumedrol and blood sugars will be monitored closely. Dietary has also been consulted and patient will be started on enteral tube feedings. Family has changed code status to mechanical ventilation only. She is wiggling toes on examination. 01/11/2022 Patient continues to be monitored in the intensive care unit. She is currently intubated with an FiO2 of 40% oxygen saturations 99-100%. She has been febrile throughout the evening with T-Max 100.6. Patient complains of difficulty in breathing and asking to be suctioned. Continues with significant secretions. Patients chest xray today shows correlation for congestive heart failure versus pneumonia. She has been started on enteral tube feedings with novolog coverage every 6 hours. Blood glucose in the 180s. A small dose of levemir was given today. She continues on IV solu-medrol 40 mg Q8h. She is off pressor support and blood pressures are 115/50. She is sinus rhythm with ST depression and inverted T Wave. Urine culture has finalized showing E.Coli and Klebsiella, and bronchial washing showing E.Coli. Antibiotics have been changed to Ceftriaxone 2gm Q24 hours. We will order a blood culture today as well. 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 Cardiology is following the patient and lasix continues to be on hold. She is in a positive fluid balance of about 1200 mL over the last few days with evidence for JVD. She is continued on Resume the care of the patient on 01/12/2022 Patient remains in the ICU in critical condition, she is intubated and on mechanical ventilation with pulmonary/critical care team following her closely. I did help with and management. She is on multiple medications including those of Eliquis for her paroxysmal atrial fibrillation, she is on IV Lasix 20 mg twice daily, salmeterol 40 mg and Zosyn for her multiple problems including hypoxic respiratory failure secondary to E. coli left lower lobe pneumonia, good COPD exacerbation and acute systolic CHF with ejection fraction of 45%. Also she has evidence of chronic rectal stroke, iron deficiency anemia and 2 more close to the vocal cords. Patient is followed closely by pulmonary services. Her hemoglobin is 8.6 and, and access 31. She is on PEEP of 5 and she has no fever or currently. Echocardiogram showing ejection fraction of 45% and hypokinesia well chest x-ray showing multifocal airspace opacity. Bring a portion cultures positive for E. coli were urine cultures positive for E. coli and Klebsiella. ProBNP is elevated at 10 400 01/13/2022 Patient is a status post extubation, today she was lying in bed comfortable, no tachypnea, no chest pain or coughing. She is saturating well until 23 L oxygen via nasal cannula. No other complaints and she tolerates diet well. She has little back pain. Also she is awake and alert. She still has Tadeo catheter. Vital signs stable and labs are stable as well. Hemoglobin 8.5 bicarb is 33. Chest x-ray showing mild radiation and S/p extubation. She remains on Solu-Medrol 40 mg, Zosyn, IV Lasix 20 mg twice a day and home dose of Eliquis 5 mg. 01/15/2012 patient awake and alert and she denies any specific complaints this morning, she was sitting up in bed ready to eat her breakfast 14. No dyspnea or abdominal pain. No dysuria. No headache. She is hemodynamically stable. Yesterday she developed bleeding from her arterial line on left arm which is controlled by pressure and Eliquis held, resume Eliquis today for surgery team. Extremities on Eliquis 5 mg, Solu-Medrol 40 mg and Zosyn. Lasix was switched to oral dose 40 mg once daily. Tadeo catheter to be discontinued today and check postvoid residual, discussed with the bedside nurse. Objective - Vital Signs Vital signs: Vital Signs Temp 98 F 01/14/22 09:45 Pulse 88 01/14/22 09:45 Resp 18 01/14/22 09:45 BP 128/63 01/14/22 09:45 Pulse Ox 100 01/14/22 09:45 FiO2 40 01/12/22 09:10 Intake & Output 01/13/22 01/14/22 01/14/22 18:59 06:59 18:59 Intake Total 220 240 Output Total 900 1000 390 Balance -680 -760 -390 Weight 49.7 kg Intake: IV 120 240 Sodium Chloride 0.9% 1, 120 240 000 ml @ 20 mls/hr IV . Q24H MARY ANNE Rx#:[id number] Intake, IV Titration 100 Amount Piperacillin-Tazobactam 3 100 .375 gm In Sodium Chloride 0.9% 100 ml @ 25 mls/hr IVPB Q8HR MARY ANNE Rx# :[id number] Output: Urine 900 1000 390 Other: Voiding Method Indwelling Catheter Indwelling Catheter ABP, PAP, CO, CI - Last Documented Arterial Blood Pressure 125/63 - Exam -GENERAL: The patient is awake and alert and oriented 3, no respiratory distress. HEENT: Pupils are round and equally reacting to light. EOMI. No scleral icterus. No conjunctival pallor. Normocephalic, atraumatic. No pharyngeal erythema. No thyromegaly. CARDIOVASCULAR: S1 and S2 present. No murmurs, rubs, or gallops. -PULMONARY: Chest is clear to auscultation, no wheezing, multiple crackles bilaterally -ABDOMEN: Soft, nontender, nondistended, normoactive bowel sounds. No palpable organomegaly. Tadeo catheter in place MUSCULOSKELETAL: No joint swelling or deformity. EXTREMITIES: No cyanosis, clubbing, or pedal edema. NEUROLOGICAL: Gross neurological examination did not reveal any focal deficits. SKIN: No rashes. no petechiae. - Labs CBC & Chem 7: 01/13/22 13:47 01/13/22 02:50 Labs: Abnormal Lab Results - Last 24 Hours (Table) 01/13/22 01/13/22 01/14/22 Range/Units 13:47 20:54 06:02 WBC 11.0 H (3.8-10.6) k/uL RBC 3.36 L (3.80-5.40) m/uL Hgb 8.5 L (11.4-16.0) gm/dL Hct 28.7 L (34.0-46.0) % MCHC 29.5 L (31.0-37.0) g/dL RDW 17.8 H (11.5-15.5) % Neutrophils # 9.6 H (1.3-7.7) k/uL Lymphocytes # 0.8 L (1.0-4.8) k/uL POC Glucose (mg/dL) 174 H 141 H (70-110) mg/dL Microbiology - Last 24 Hours (Table) 01/11/22 12:57 Blood Culture - Preliminary Blood No Growth after 48 hours Assessment and Plan Assessment: -Acute hypoxic and hypercapnic Respiratory Failure patient is on mechanical ventilator, status post extubation on 01/12. She is status post bronchoscopy which reveals mucous plugging of left mainstem bronchus. Left lung aeration has improved on imaging. Culture showing E.Coli and antibiotics have been adjusted to Rocephin. -Acute on chronic systolic CHF, ejection fraction 45% - Acute COPD exacerbation -Urinary tract infection with sepsis, E.Coli and Klebsiella finalized on cultures, antibiotics have been adjusted to rocephin -Elevated troponins, likely NSTEMI per cardiology will most likely require cardiac cath when medically sable -Atrial fibrillation with rapid rate patient has a known paroxysmal A. fib does take Eliquis for anticoagulation. Patient is continued on metoprolol. -Altered mental status with repeat brain CT showing continued evolution of right parietal infarct with encephalomalacia, most likely this is toxic metabolic encephalopathy multifactorial from urinary tract infection, pneumonia and heart failure, improving. 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 fib. Continue with Eliquis home dose of 5 mg Continue with IV Lasix Continue with IV Solu-Medrol Continue with antibiotic Zosyn patient may benefit from cardiac cath upon improvement of her critical illness Patient were were ENT evaluation for her vocal cord tumor Several consultants of the case including ICU, neurologist and electric lineman Labs and medication were reviewed.. Continue same treatment. Continue with symptomatic treatment. Resume home medication. Monitor lytes and vitals. DVT and GI prophylaxis. Further recommendations as per clinical course of the patient DVT prophylaxis: Eliquis GI Prophylaxis: ppi Prognosis is guarded
[2022-01-14] MEDS: LETROZOLE 2.5 MG TAB PO SCH (12:51)
--- NOTE | 2022-01-14 13:34 | P.PN ---
Subjective Progress Note Date: 01/14/22 HISTORY OF PRESENT ILLNESS: This is a 76-year-old female who follows in the office with Dr. Adame. Patient has a history of paroxysmal atrial fibrillation, LV thrombus, hypertension, h yperlipidemia, TIA, and coronary artery disease with previous stenting and CABG 3 vessels in November 2020. Patient is admitted to the hospital secondary to CHF and A-fib with RVR. Patient was placed on IV Cardizem and has since converted to sinus mechanism. She is maintaining sinus mechanism this morning. She remains on IV lasix 40mg BID. 01/07/2022 Patient examined this morning at the bedside. Patient appears confused this morning. She denies chest pain or pressure. She reports improvement in her lower extremity edema and her SOB. Echocardiogram performed reveals ejection fraction 45-50%, inferior basal hypokinesis, [id number] mitral regurgitation. 01/08/2022 Patient examined this morning at the bedside. Patient remains slightly confused this morning. She denies chest pain or pressure. She reports mild SOB. She remains on IV lasix. Vital signs are stable. Chest x-ray this morning reveals findings representing basilar atelectasis, cardiomegaly and postoperative changes. 01/14/2022 Patient examined this morning at the bedside. Patient denies chest pain or pressure. She denies shortness of breath. She remains on IV Lasix. Patient is hoping to be discharged home today. PHYSICAL EXAM: VITAL SIGNS: Reviewed. GENERAL: Well-developed in no acute distress. NECK: Supple. No JVD or thyromegaly LUNGS: Respirations even and unlabored. Lungs diminished bilaterally with a few scattered crackles.. HEART: Regular rate and rhythm. S1 and S2 heard. EXTREMITIES: Normal range of motion. No clubbing or cyanosis. Peripheral pulses intact. Trace bilateral lower extremity edema ASSESSMENT: Paroxysmal atrial fibrillation with RVR Acute on chronic heart failure with reduced EF Abnormal troponins, likely NSTEMI Coronary artery disease with previous stenting and CABG 3 vessels Ischemic cardiomyopathy, most recent ejection fraction 25-30%, repeat echo 45- 50% History of LV thrombus Peripheral vascular disease Hypertension Hyperlipidemia PLAN: Discontinue IV Lasix Begin oral lasix 40mg daily Per Dr. Adame ,patient may be discharged home today with close outpatient follow up Nurse practitioner note has been reviewed by physician. Signing provider agrees with the documented findings, assessment, and plan of care. Objective - Vital Signs Vital signs: Vital Signs Temp 98.6 F 01/14/22 12:40 Pulse 64 01/14/22 12:40 Resp 16 01/14/22 12:40 BP 142/70 01/14/22 12:40 Pulse Ox 99 01/14/22 12:40 FiO2 40 01/12/22 09:10 Intake & Output 01/13/22 01/14/22 01/14/22 18:59 06:59 18:59 Intake Total 220 240 Output Total 900 1000 390 Balance -680 -760 -390 Weight 49.7 kg Intake: IV 120 240 Sodium Chloride 0.9% 1, 120 240 000 ml @ 20 mls/hr IV . Q24H MARY ANNE Rx#:[id number] Intake, IV Titration 100 Amount Piperacillin-Tazobactam 3 100 .375 gm In Sodium Chloride 0.9% 100 ml @ 25 mls/hr IVPB Q8HR MARY ANNE Rx# :[id number] Output: Urine 900 1000 390 Other: Voiding Method Indwelling Catheter Indwelling Catheter Indwelling Catheter ABP, PAP, CO, CI - Last Documented Arterial Blood Pressure 125/63 - Labs CBC & Chem 7: 01/13/22 13:47 01/13/22 02:50 Labs: Abnormal Lab Results - Last 24 Hours (Table) 01/13/22 01/13/22 01/14/22 Range/Units 13:47 20:54 06:02 WBC 11.0 H (3.8-10.6) k/uL RBC 3.36 L (3.80-5.40) m/uL Hgb 8.5 L (11.4-16.0) gm/dL Hct 28.7 L (34.0-46.0) % MCHC 29.5 L (31.0-37.0) g/dL RDW 17.8 H (11.5-15.5) % Neutrophils # 9.6 H (1.3-7.7) k/uL Lymphocytes # 0.8 L (1.0-4.8) k/uL POC Glucose (mg/dL) 174 H 141 H (70-110) mg/dL 01/14/22 Range/Units 11:39 WBC (3.8-10.6) k/uL RBC (3.80-5.40) m/uL Hgb (11.4-16.0) gm/dL Hct (34.0-46.0) % MCHC (31.0-37.0) g/dL RDW (11.5-15.5) % Neutrophils # (1.3-7.7) k/uL Lymphocytes # (1.0-4.8) k/uL POC Glucose (mg/dL) 153 H (70-110) mg/dL Microbiology - Last 24 Hours (Table) 01/11/22 12:57 Blood Culture - Preliminary Blood No Growth after 48 hours
[2022-01-14 17:19] LABS: Glucose,Whole Blood 200 mg/dL (70-110)
[2022-01-14] MEDS: ACETAMINOPHEN TAB 500 MG TAB PO PRN (17:26)
[2022-01-14 20:16] LABS: Glucose,Whole Blood 176 mg/dL (70-110)
[2022-01-14] MEDS: INSULIN DETEMIR (LEVEMIR) 100 UNIT/ML SYR SQ SCH (20:46)
[2022-01-14] MEDS: ATORVASTATIN 80 MG TAB PO SCH (20:46)
[2022-01-14] MEDS: ESCITALOPRAM 5 MG TAB PO SCH (21:20)
[2022-01-15] MEDS: SODIUM CHLORIDE 0.9% 1,000 ML IV SCH (04:13)
[2022-01-15 06:08] LABS: Glucose,Whole Blood 136 mg/dL (70-110)
[2022-01-15] MEDS: INSULIN ASPART (NovoLOG) 100 UNIT/ML VIAL SQ SCH ×2 (06:13→12:54)
[2022-01-15] MEDS: IPRATROPIUM 0.5 MG/2.5 ML NEBU INHALATION SCH ×3 (08:51→16:15)
[2022-01-15] MEDS: IPRATROPIUM-ALBUTEROL 3 ML NEB INHALATION PRN (08:51)
[2022-01-15] MEDS ORDERED: FUROSEMIDE 40 MG TAB PO SCH (09:00)
[2022-01-15] MEDS: ASPIRIN 81 MG PO SCH (09:41)
[2022-01-15] MEDS: BACLOFEN 10 MG TAB PO SCH ×2 (09:41→16:25)
[2022-01-15] MEDS: PIPERACILLIN-TAZOBACTAM 3.375 GM in SODIUM CHLORIDE 0.9% 100 ML IVPB SCH (09:41)
[2022-01-15] MEDS: LETROZOLE 2.5 MG TAB PO SCH (09:42)
[2022-01-15] MEDS: APIXABAN 5 MG TAB PO SCH (09:42)
[2022-01-15] MEDS: METOPROLOL TARTRATE 25 MG TAB PO SCH (09:43)
[2022-01-15] MEDS: NITROGLYCERIN OINT 1 INCH/GM PACKET TOPICAL SCH ×2 (09:43→16:21)
[2022-01-15] MEDS: methylPREDNISolone SOD SUCCI 40 MG/ML 1 ML VIAL IV SCH ×2 (09:43→16:21)
[2022-01-15] MEDS: GABAPENTIN 100 MG CAP PO SCH ×2 (09:43→16:25)
[2022-01-15] MEDS: PANTOPRAZOLE 40 MG/10 ML VIAL IVP SCH (09:43)
[2022-01-15] MEDS: FOLIC ACID 1 MG TAB PO SCH (09:44)
--- NOTE | 2022-01-15 10:24 | P.PN ---
Subjective Progress Note Date: 01/15/22 Principal diagnosis: Left brachial artery A-line bleed Pleasant 76-year-old female who was admitted into the ICU and intubated for acute hypoxic respiratory failure. She was extubated, A-line was discontinued and patient had bleeding from site for 3-4 hours post removal. Surgicel and thrombin were used to control the bleeding along with pressure dressing. She's had no further bleeding. Eliquis was resumed yesterday evening. She has no complaints of pain in the left upper extremity and has full range of motion. Objective - Vital Signs Vital signs: Vital Signs Temp 98.3 F 01/15/22 03:59 Pulse 64 01/15/22 09:02 Resp 16 01/15/22 03:59 BP 151/77 01/15/22 03:59 Pulse Ox 100 01/15/22 08:51 FiO2 40 01/12/22 09:10 Intake & Output 01/14/22 01/15/22 01/15/22 18:59 06:59 18:59 Intake Total 760 460 Output Total 570 Balance 190 460 Weight 50 kg Intake: Intake, IV Titration 280 100 Amount Piperacillin-Tazobactam 3 100 100 .375 gm In Sodium Chloride 0.9% 100 ml @ 25 mls/hr IVPB Q8HR MARY ANNE Rx# :[id number] Sodium Chloride 0.9% 1, 180 000 ml @ 20 mls/hr IV . Q24H MARY ANNE Rx#:[id number] Oral 480 360 Output: Urine 570 Other: Voiding Method Indwelling Catheter # Voids 1 ABP, PAP, CO, CI - Last Documented Arterial Blood Pressure 125/63 - Exam General appearance: The patient is alert, oriented, appears in no acute distress. HET: Head is normocephalic and atraumatic. Pupils are equal and reactive. Neck: Supple without lymphadenopathy. Trachea midline. Extremities: Left arm brachial access site clean dry and intact. No further bleeding. Minimal bruising noted. No hematoma. Swelling improved. Good capillary refill and good range of motion. Palpable radial pulse. Neurological: No focal deficits. Strength and sensation are grossly intact. - Labs CBC & Chem 7: 01/13/22 13:47 01/13/22 02:50 Labs: Abnormal Lab Results - Last 24 Hours (Table) 01/14/22 01/14/22 01/14/22 Range/Units 11:39 17:07 20:15 POC Glucose (mg/dL) 153 H 200 H 176 H (70-110) mg/dL 01/15/22 Range/Units 06:05 POC Glucose (mg/dL) 136 H (70-110) mg/dL Microbiology - Last 24 Hours (Table) 01/11/22 12:57 Blood Culture - Preliminary Blood No Growth after 72 hours Assessment and Plan Assessment: 1. Left brachial artery bleed status post arterial line removal 2. Acute hypoxic respiratory failure 3. COPD 4. Congestive heart failure 5. History atrial fibrillation on Eliquis Plan: 1. May resume Eliquis 2. There is no indication for any surgical intervention. Thank you for this consultation, we will sign off at this time The impression and plan of care has been dictated as directed. Dr. Tadeo I performed a history and examination of this patient, discussed the same with the dictator. I agree with the dictator's note ,documented as a scribe. Any additional findings or plans will be noted.
--- NOTE | 2022-01-15 11:59 | P.PN ---
Subjective Progress Note Date: 01/15/22 Principal diagnosis: Respiratory failure. Reevaluated today on 01/10/22, patient remains in the ICU, intubated and mechanically ventilated. Patient is on assist control rate of 24 tidal volume 350 FiO2 40% and PEEP of 5. Overnight the patient required small dose of norepinephrine at 0.04 mcg/kg/m. She is sedated, on propofol at 7.5 mcg/kg/h, patient is still receiving Zosyn for presumptive left sided pneumonia, and cultures are pending. ABG today showed a pO2 of 84 pCO2 37 pH of 7.55. Continues to have left lower lobe consolidation on chest x-ray, however dramatic improvement noted on the chest x-ray in comparison to her chest x-ray when she was admitted to the ICU showing a complete collapse of the left lung. WBC count today is 9.9 hemoglobin is 9.5. Basic metabolic profile is relatively normal. Patient is on enteral feeding. Tolerating enteral feeding well. Reevaluated today on 01/11/22, patient remains in the ICU, intubated and mechanically ventilated. Patient is awake, however she seems to be extremely restless, agitated, and tachypneic. Respiratory rate is in the mid 30s. Patient seems to be working hard to breathe although she is on assist control mode of mechanical ventilation. Hence I believe the patient is not quite ready to wean and extubate at this point yet. Her ventilator settings are assist control rate of 24 tidal volume 350 FiO2 40% PEEP of 5 and I cut down her FiO2 down to 35%. Her ABG showed a pO2 of 107 pCO2 37 pH of 7.52. Patient is now off sedation, and I recommended going back on sedation, as she is not quite ready to wean. Patient will be a difficult extubation, and she will likely be a failure to wean easily. She is on IV fluid in the form of point tenderness saline at 50 mL per hour. Chest x-ray showed significant improvement in her left lung opacification and left lower lobe pneumonia. However the chest x-ray is suggestive of mild perihilar interstitial edema. Bronchial washings are positive for E. coli and urine cultures are positive for E. coli and Klebsiella oxytoca. Both are sensitive to Zosyn, and the patient is already on Zosyn WBC count today is 8.0 hemoglobin is 8.4. Platelets are 193. Basic metabolic profile is relatively normal. BUN is 40 creatinine 0.61. Liver profile is basically unremarkable. Reevaluated today on 01/12/2022, patient remains in the ICU, intubated and mechanically ventilated. She is off sedation this morning, patient is awake, and she follows simple instructions but she seems to be generally weak. She is on assist control rate of 24 tidal volume 350 FiO2 35% PEEP of 5. ABG showed a pO2 of 108 pCO2 of 32 pH of 7.59, patient had a baseline pCO2 in the 50s, hence I cut down her rate from 24-20 in the meantime I recommended giving the patient a trial of pressure support of 10 and CPAP. Since the patient is awake, at the she will receive a weaning trial, although my clinical suspicion that the patient will be difficult to wean based on her baseline pulmonary status and cardiac status. Chest x-ray showed evidence of pulmonary congestion/slight int erstitial edema, and I recommended Lasix which is given twice a day. Patient is on vitamin Hpwe at 41 cc per hour. Tolerating that quite well. WBC count today is 9.7 hemoglobin 8.6. Basic metabolic profile is normal renal profile is normal. Bicarb is 31. Progress note dated 01/13/2022. The patient is seen today in room 258. She was admitted to the hospital on January 04. She came with atrial fibrillation and RVR, COPD, and CHF. She was intubated on January 09, extubated yesterday on January 12. Currently, she is resting comfortably. She is on 3 L nasal cannula. He is getting saline at 20 mL an hour. She has no major complaints. White count 10.8, hemoglobin 8.6, hematocrit 28.7, and platelet count 266,000. Sodium 141, potassium 3.7, chlorides 104, CO2 33, BUN 32, creatinine 0.69. Albumin 2.9. Chest x-ray shows improvement in overall aeration. Microbiologic studies show urine to be positive for Escherichia coli, and Klebsiella, and bronchial washings from January 09 be positive for E. coli. She is currently on Zosyn. Progress note dated 01/14/2022. The patient was seen in the intensive care unit yesterday. She was moved out to the floor. Today she seen in room 378. Currently, the patient's on O2 at 3 L. She's getting saline at 20 mL an hour. The patient is talking on the phone, without any respiratory difficulty or distress. There is no conversational dyspnea or use of accessory muscles. No new labs today other than a glucose of 141. Progress note dated 01/15/2022. The patient is doing well. She seen today in room 378. No new labs today. Today's glucose was 136. She remains on 3 L nasal cannula, with saturations of 100%. The rest of her vital signs are stable. No new laboratory data today. The patient is getting saline at 20 mL an hour. Objective - Vital Signs Vital signs: Vital Signs Temp 97.7 F 01/15/22 08:00 Pulse 64 01/15/22 09:02 Resp 18 01/15/22 08:00 BP 150/66 01/15/22 08:00 Pulse Ox 100 01/15/22 08:51 FiO2 40 01/12/22 09:10 Intake & Output 01/14/22 01/15/22 01/15/22 18:59 06:59 18:59 Intake Total 760 460 Output Total 570 1 Balance 190 460 -1 Weight 50 kg Intake: Intake, IV Titration 280 100 Amount Piperacillin-Tazobactam 3 100 100 .375 gm In Sodium Chloride 0.9% 100 ml @ 25 mls/hr IVPB Q8HR [facility] Rx# :[id number] Sodium Chloride 0.9% 1, 180 000 ml @ 20 mls/hr IV . Q24H [facility]ARY ANNE Rx#:[id number] Oral 480 360 Output: Urine 570 Stool 1 Other: Voiding Method Indwelling Catheter Bedside Commode # Voids 1 1 # Bowel Movements 3 ABP, PAP, CO, CI - Last Documented Arterial Blood Pressure 125/63 - Exam No acute distress, oriented 3. Currently on 3 L nasal cannula. HEENT examination is grossly unremarkable. Neck supple. Full range of motion. No adenopathy thyromegaly or neck vein distention. Cardiovascular examination reveals regular rhythm rate. S1-S2 normal. No S3 or S4. No discernible murmur noted. Heart rate 64 bpm. Lungs reveal scattered bilateral rhonchi. No wheezes or crackles. Breath sounds equal bilaterally. 3 L saturation is 100%. Abdomen soft bowel sounds are heard. No masses or tenderness. Extremities are intact. No cyanosis clubbing or edema. Skin is without rash or lesion. Neurologic examination is brief but nonfocal. - Labs CBC & Chem 7: 01/13/22 13:47 01/13/22 02:50 Labs: Abnormal Lab Results - Last 24 Hours (Table) 01/14/22 01/14/22 01/15/22 Range/Units 17:07 20:15 06:05 POC Glucose (mg/dL) 200 H 176 H 136 H (70-110) mg/dL Microbiology - Last 24 Hours (Table) 01/11/22 12:57 Blood Culture - Preliminary Blood No Growth after 72 hours Assessment and Plan Assessment: Acute hypoxemic and hypercapnic respiratory failure, secondary to both COPD exacerbation, and acute systolic CHF, status post intubation on January 09 and ex tubation on January 12. Status post bronchoscopy, for mucous plugging of the left mainstem bronchus. Acute non-ST segment elevation myocardial infarction. Escherichia coli pneumonia. Escherichia coli and Klebsiella urinary tract infection. History of CVA. Metabolic encephalopathy. Paroxysmal atrial fibrillation. Severe COPD. Benign essential hypertension. Right breast cancer, S/P previous mastectomy. CAD, with previous three-vessel bypass grafting, November 2020. Mitral valve regurgitation. Ischemic cardiomyopathy. Acute on chronic systolic CHF. Ongoing tobacco dependence syndrome. 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 Plan: Plan dated 01/13/2022. The patient appears to be doing well. She was extubated yesterday, January 12. She remains on 3 L nasal cannula. She's getting saline at 20 mL an hour. Labs, x-rays, and medications are reviewed. The patient remains on Zosyn for E. coli and Klebsiella infections. We will continue to follow the patient, make recommendations were appropriate. Prognosis is guarded. The patient could be considered for possible transfer out of the intensive care unit. Plan dated 01/14/2022. The patient was in the intensive care unit yesterday. The patient was extubated on January 12. Clinically, she's doing very well. She is on saline at 20 mL an hour. She is getting oxygen at 3 L. Saturations are 100% and probably the oxygen can be titrated down or off. Labs are reviewed. X-rays and medications are reviewed. The patient is treated for a E. coli and Klebsiella infection. She remains on Zosyn. We'll continue to follow as needed. Prognosis is guarded. Plan dated 01/15/2022. From our perspective, the patient is cleared to be discharged. Apparently, the primary service is planning to discharge the patient to a correction although the patient apparently does not want to go. Labs, x-rays, medications are all reviewed. The patient's oxygen can probably be titrated down. On 3 L, her saturation is 100%. Labs, x-rays, and medications are reviewed. She remains on Zosyn. Prognosis is guarded. Moving forward, we'll see the patient only as needed. Time with Patient: Less than 30
[2022-01-15 12:10] LABS: Glucose,Whole Blood 114 mg/dL (70-110)
[2022-01-15 12:13] VITALS: BP 134/61; RESP 16; TEMP 97.9
[2022-01-15] MEDS: ACETAMINOPHEN TAB 500 MG TAB PO PRN (15:01)
[2022-01-15 15:14] VITALS: BMI 23.0
[2022-01-15 17:45] VITALS: PULSE 88
--- NOTE | 2022-01-15 20:55 | P.DS ---
Providers Date of admission: 01/04/22 22:04 Attending physician: Quintin Elizondo Consults: 01/04/22 22:04 Consult Physician Routine Consulting Provider: [facility] Consult Reason/Comments: chf, afib rvr Do you want consulting provider notified?: Yes, Notify in am 01/07/22 21:24 Consult Physician Routine Consulting Provider: Suleiman Banerjee Consult Reason/Comments: AMS Do you want consulting provider notified?: Yes, Notify in am 01/08/22 13:53 Consult Physician Routine Consulting Provider: Luis Felipe Madrigal Consult Reason/Comments: hypoxia Do you want consulting provider notified?: Yes, Notify in am 01/09/22 10:22 Consult Physician Routine Consulting Provider: Sincere Dueñas Consult Reason/Comments: vocal cord mass Do you want consulting provider notified?: Yes 01/13/22 12:52 Consult Physician Routine Consulting Provider: Jed Steele Consult Reason/Comments: artierial line site bleeding Do you want consulting provider notified?: Yes Primary care physician: Sydnie Reynolds Hospital Course: Diagnoses: -Acute hypoxic and hypercapnic Respiratory Failure patient is on mechanical ventilator, status post extubation on 01/12. She is status post bronchoscopy which reveals mucous plugging of left mainstem bronchus. Left lung aeration has improved on imaging. Culture showing E.Coli and antibiotics have been adjusted to Rocephin. -Acute on chronic systolic CHF, ejection fraction 45% - Acute COPD exacerbation -Urinary tract infection with sepsis, E.Coli and Klebsiella finalized on cultures, antibiotics have been adjusted to rocephin -Elevated troponins, likely NSTEMI per cardiology will most likely require cardiac cath when medically sable -Atrial fibrillation with rapid rate patient has a known paroxysmal A. fib does take Eliquis for anticoagulation. Patient is continued on metoprolol. -Altered mental status with repeat brain CT showing continued evolution of right parietal infarct with encephalomalacia, most likely this is toxic metabolic encephalopathy multifactorial from urinary tract infection, pneumonia and heart failure, improving. 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 Patient refusing rehab -Coronary artery disease status post prior stenting and 3 vessel CABG -Peripheral neuropathy -Hyperlipidemia -History of cerebral vascular accident in the past without any residual weakness -Mitral valve prolapse -History of LV thrombus -Hypertension -History of right breast cancer with mastectomy she is maintained on femara daily Hospital course: Patient is a pleasant 76-year-old female came in with shortness of breath and orthopnea, patient does have history of congestive heart failure EF of around 25-30% in the past patient has ischemic cardiomyopathy had heart attacks in the past and CABG in the past. Patient is found to have elevated BNP of 10,000 and the patient the chest x-ray is consistent with congestive heart failure with bilateral pleural effusions and primary congestion. Patient went into respiratory failure and she got intubated with pulmonary/critical care team were following her closely as well as billet heater. She's been treated for left lower lobe pneumonia secondary to E. coli, acute COPD exacerbation acute on chronic systolic CHF with ejection fraction 45%, also she has a right parietal stroke. She was treated with IV Lasix, salmeterol and Zosyn as well as her home dose of Eliquis 5 mg, patient showed interval improvement and she got extubated and transferred to the general medical floor reactive Patient currently resting comfortably in bed and chair, she needed 2 people to assist her to lift her between chair and bed, she is generally weak and she required rehab for physical therapy evaluation however was so adamant not to go to rehab and to go home stating that she has wheelchair, walker and people to help her and her home. Patient has to make medical decision and risks including but not limited to fall, intracranial bleed recurrent infection are explained for her and she verbalized understanding and acceptance. Patient remains high- risk for rehospitalization and complication. However with stopped her baclofen which may contribute to her weakness. Patient feels ready for going home today. Patient will be discharged with home health care. Patient informed about her vocal cords area tumor that risk of cancer explained for her and she verbalized understanding and acceptance to follow up with ENT Dr. Simpson as an outpatient, see discharge instructions. Patient does not want to talk to her family however she agrees to follow up with her PCP Dr. Reynolds. And that patient will be discharged on short course of oral antibiotics, tapered prednisone. Patient confirmed to me she has Eliquis at home. Problems and management plan were discussed with the patient and he verbalized understanding and acceptance Patient was found stable and can be discharged home in guarded prognosis however he needs follow-up as an outpatient. Patient was instructed to follow up with PCP Dr. Reynolds within one week and patient agrees with appointment made for her on 01/21, also she told me she agrees to the appointment made with her ENT Dr. Simpson and and that she will follow up. Also she agreed with the appointments made for her Dr. Adame as she confirmed to me today prior to her going home. Physical exam Gen: patient is a AAOx3, no distress CVS: S1-S2, RRR, no murmur Lungs: B/L CTA, no wheezing Abdomen: soft, no distention, no tenderness, positive bowel sounds Extremity: no leg edema or induration Time spent more than 35 minutes Patient Condition at Discharge: Stable Plan - Discharge Summary Discharge Rx Participant: No New Discharge Prescriptions: New predniSONE 10 mg PO DIRECTED #40 tab Acetaminophen Tab [Tylenol] 500 mg PO Q6HR PRN tab PRN Reason: Fever And/ Or Pain Amoxic-Pot Clav 875-125Mg [Augmentin 875-125] 1 tab PO Q12HR 7 Days #14 tab Folic Acid 1 mg PO DAILY #30 tab Metoprolol Tartrate [Lopressor] 75 mg PO BID #180 tab Omeprazole [PriLOSEC] 20 mg PO AC-BID #60 cap Continue Atorvastatin [Lipitor] 80 mg PO HS Escitalopram [Lexapro] 5 mg PO HS Apixaban [Eliquis] 5 mg PO BID #0 Furosemide [Lasix] 20 mg PO BID PRN PRN Reason: Edema Fluticasone/Umeclidin/Vilanter [Trelegy Ellipta 100-62.5-25] 1 puff INHALATION RT-DAILY PRN PRN Reason: Wheezing Letrozole [Femara] 2.5 mg PO DAILY Albuterol Sulfate [Ventolin HFA] 1 puff INHALATION RT-Q4H PRN #1 each PRN Reason: Shortness Of Breath Gabapentin [Neurontin] 100 mg PO TID Aspirin [Adult Low Dose Aspirin EC] 81 mg PO DAILY lisinopriL [Zestril] 2.5 mg PO DAILY Discontinued Metoprolol Tartrate [Lopressor] 50 mg PO BID #60 tab ALPRAZolam [Xanax] 0.25 mg PO BID PRN PRN Reason: Anxiety Baclofen 10 mg PO QID PRN PRN Reason: Muscle Spasm Discharge Medication List Atorvastatin [Lipitor] 80 mg PO HS 01/07/21 [History] Gabapentin [Neurontin] 100 mg PO TID 07/18/21 [History] Escitalopram [Lexapro] 5 mg PO HS 08/18/21 [History] Aspirin [Adult Low Dose Aspirin EC] 81 mg PO DAILY 08/20/21 [History] Apixaban [Eliquis] 5 mg PO BID #0 08/22/21 [Rx] Furosemide [Lasix] 20 mg PO BID PRN 09/13/21 [History] Fluticasone/Umeclidin/Vilanter [Trelegy Ellipta 100-62.5-25] 1 puff INHALATION RT-DAILY PRN 11/01/21 [History] Letrozole [Femara] 2.5 mg PO DAILY 01/04/22 [History] lisinopriL [Zestril] 2.5 mg PO DAILY 01/04/22 [History] Acetaminophen Tab [Tylenol] 500 mg PO Q6HR PRN tab 01/15/22 [Rx] Albuterol Sulfate [Ventolin HFA] 1 puff INHALATION RT-Q4H PRN #1 each 01/15/22 [Rx] Amoxic-Pot Clav 875-125Mg [Augmentin 875-125] 1 tab PO Q12HR 7 Days #14 tab 01/15/22 [Rx] Folic Acid 1 mg PO DAILY #30 tab 01/15/22 [Rx] Metoprolol Tartrate [Lopressor] 75 mg PO BID #180 tab 01/15/22 [Rx] Omeprazole [PriLOSEC] 20 mg PO AC-BID #60 cap 01/15/22 [Rx] predniSONE 10 mg PO DIRECTED #40 tab 01/15/22 [Rx] Follow up Appointment(s)/Referral(s): Luis Felipe Madrigal MD [STAFF PHYSICIAN] - 2 Weeks (lung doctor ) Aakash Adame MD [STAFF PHYSICIAN] - 02/03/22 4:45 pm (Thursday previously scheduled appointment (no earlier appointment available)) Eldon Simpson MD [STAFF PHYSICIAN] - 01/23/22 9:45 am ( ENT Doctor for our laryngeal mass They will mail you forms prior to appointment) Sydnie Reynolds MD [Primary Care Provider] - 01/21/22 11:40 am (Thursday) Patient Instructions/Handouts: Heart Failure (DC), A-fib (Atrial Fibrillation) (DC) Activity/Diet/Wound Care/Special Instructions: heart healthy diet activity is restricted till you see your doctor Discharge Disposition: HOME WITH HOME HEALTH SERVICES
--- NOTE | 2022-01-17 15:51 | CDI ---
Documentation Clarification Form Date: 01/17/2022 03:24:59 PM From: Rocío Rodarte RN, CCDS Email: [email or web address] Admit Date: 01/04/2022 10:04:00 PM Patient Name: Sharmila Ayers Visit Number: [id number] Discharge Date: 01/15/2022 06:55:00 PM ATTENTION: The Clinical Documentation Specialists (CDI) and [facility] Coding Staff appreciate your assistance in clarifying documentation. Please respond to the clarification below the line at the bottom and electronically sign. The CDI & [facility] Coding staff will review the response and follow-up if needed. Please note: Queries are made part of the Legal Health Record. If you have any questions, please contact the author of this message via ITS. Dr. Horn E Sheet There is documentation of uncontrolled bleeding from the brachial artery site post arterial line removal. The patient was on Eliquis. Additional clarification is requested. History/Risk Factors: Admitted to the hospital on 01/04/2022 with acute hypoxic respiratory failure related to congestive heart failure and COPD. She has a history of coronary artery disease atrial fibrillation, cardiomyopathy, TIA, LV thrombus, hypertension, and valvular heart disease who was on Eliquis 5mg BID. Clinical Indicators: 01/13 Nursing note: RN pulled left brachial arterial line at 1115. Pressure held for 1 hour due to uncontrolled bleeding from site. Dr. Steele in to see patient at 1300. Labs ordered and pressure continued with surgicell in place. Bleeding remained uncontrolled with continued pressure, and Dr. Steele back at bedside at 1500. Dr. Steele dressed site with thrombin, gel foam and paz wrap. Instructions given to keep paz wrap in place unless site becomes saturated. Pulses palpable at left radial site, and patient has not complaints of pain or numbness to extremity. 01/13 Cardiovascular surgery: Left brachial artery bleed status post arterial line removal. 01/14 IM: Yesterday she developed bleeding from her arterial line on left arm which is controlled by pressure and Eliquis held, resume Eliquis today for surgery team. Treatment: Hold pressure to the left brachial artery site Hold Eliquis Surgicel to site Keep nothing by mouth CBC, type and screen Can you please clarify if anticoagulation was responsible for the prolonged bleeding [ ] Yes [ ] No [ ] Other, please specify [ ] Unable to determine yes MTDD
== END 2022-01-15 18:55 | disposition home health service (06) | DRG 280 ==
LOC: EC 19:35 → 3SCARD 22:04 → 2SICU 01-08 15:58 → 3SCARD 01-13 19:53
PROVIDERS: ADMIT Hospitalist; ATTEND Hospitalist
PROC: 5A09357 Assistance with Respiratory Ventilation, Less than 24 Consecutive Hours, Continuous Positive Airway Pressure (ICD-10-PCS; 2022-01-08)
PROC: 4A133B1 Monitoring of Arterial Pressure, Peripheral, Percutaneous Approach (ICD-10-PCS; 2022-01-09)
PROC: 4A133J1 Monitoring of Arterial Pulse, Peripheral, Percutaneous Approach (ICD-10-PCS; 2022-01-09)
PROC: 02HV33Z Insertion of Infusion Device into Superior Vena Cava, Percutaneous Approach (ICD-10-PCS; 2022-01-09)
PROC: 0BH17EZ Insertion of Endotracheal Airway into Trachea, Via Natural or Artificial Opening (ICD-10-PCS; 2022-01-09)
PROC: 0BC98ZZ Extirpation of Matter from Lingula Bronchus, Via Natural or Artificial Opening Endoscopic (ICD-10-PCS; 2022-01-09)
PROC: 0BC88ZZ Extirpation of Matter from Left Upper Lobe Bronchus, Via Natural or Artificial Opening Endoscopic (ICD-10-PCS; 2022-01-09)
PROC: 0BC78ZZ Extirpation of Matter from Left Main Bronchus, Via Natural or Artificial Opening Endoscopic (ICD-10-PCS; 2022-01-09)
PROC: 0BCB8ZZ Extirpation of Matter from Left Lower Lobe Bronchus, Via Natural or Artificial Opening Endoscopic (ICD-10-PCS; 2022-01-09)
PROC: 3E043XZ Introduction of Vasopressor into Central Vein, Percutaneous Approach (ICD-10-PCS; 2022-01-09)
PROC: 3E0G76Z Introduction of Nutritional Substance into Upper GI, Via Natural or Artificial Opening (ICD-10-PCS; 2022-01-09)
PROC: 0D9670Z Drainage of Stomach with Drainage Device, Via Natural or Artificial Opening (ICD-10-PCS; 2022-01-09)
PROC: 5A1945Z Respiratory Ventilation, 24-96 Consecutive Hours (ICD-10-PCS; principal; 2022-01-09 08:05)
PROC: 03HY32Z Insertion of Monitoring Device into Upper Artery, Percutaneous Approach (ICD-10-PCS; 2022-01-09 08:05)
DX: I21.4 Non-ST elevation (NSTEMI) myocardial infarction (principal); I50.23 Acute on chronic systolic (congestive) heart failure; J96.01 Acute respiratory failure with hypoxia; A41.51 Sepsis due to Escherichia coli [E. coli]; J96.02 Acute respiratory failure with hypercapnia; G92.8 Other toxic encephalopathy; J15.5 Pneumonia due to Escherichia coli; T17.590A Other foreign object in bronchus causing asphyxiation, initial encounter; J44.0 Chronic obstructive pulmonary disease with (acute) lower respiratory infection; J44.1 Chronic obstructive pulmonary disease with (acute) exacerbation; I23.6 Thrombosis of atrium, auricular appendage, and ventricle as current complications following acute myocardial infarction; J98.11 Atelectasis; N39.0 Urinary tract infection, site not specified; D68.32 Hemorrhagic disorder due to extrinsic circulating anticoagulants; I11.0 Hypertensive heart disease with heart failure; G35 Multiple sclerosis; I73.9 Peripheral vascular disease, unspecified; I48.0 Paroxysmal atrial fibrillation; Z20.822 Contact with and (suspected) exposure to COVID-19; G93.89 Other specified disorders of brain; R58 Hemorrhage, not elsewhere classified; T45.515A Adverse effect of anticoagulants, initial encounter; I25.5 Ischemic cardiomyopathy; I25.10 Atherosclerotic heart disease of native coronary artery without angina pectoris; D49.1 Neoplasm of unspecified behavior of respiratory system; E78.5 Hyperlipidemia, unspecified; I34.1 Nonrheumatic mitral (valve) prolapse; I34.0 Nonrheumatic mitral (valve) insufficiency; D50.9 Iron deficiency anemia, unspecified; B96.1 Klebsiella pneumoniae [K. pneumoniae] as the cause of diseases classified elsewhere; G47.33 Obstructive sleep apnea (adult) (pediatric); E53.8 Deficiency of other specified B group vitamins; I25.2 Old myocardial infarction; G62.9 Polyneuropathy, unspecified; F32.A Depression, unspecified; F41.9 Anxiety disorder, unspecified; M54.9 Dorsalgia, unspecified; M19.90 Unspecified osteoarthritis, unspecified site; Z91.19 Patient's noncompliance with other medical treatment and regimen; Z79.01 Long term (current) use of anticoagulants; Z79.82 Long term (current) use of aspirin; Z79.811 Long term (current) use of aromatase inhibitors; Z79.51 Long term (current) use of inhaled steroids; Z79.899 Other long term (current) drug therapy; Z95.1 Presence of aortocoronary bypass graft; Z87.891 Personal history of nicotine dependence; Z87.01 Personal history of pneumonia (recurrent); Z86.73 Personal history of transient ischemic attack (TIA), and cerebral infarction without residual deficits; Z90.49 Acquired absence of other specified parts of digestive tract; Z85.3 Personal history of malignant neoplasm of breast; Z95.5 Presence of coronary angioplasty implant and graft; Z87.2 Personal history of diseases of the skin and subcutaneous tissue; Z95.820 Peripheral vascular angioplasty status with implants and grafts; Z88.8 Allergy status to other drugs, medicaments and biological substances
CPT/HCPCS: 31624; 31645; 36415; 36600; 70450; 71045; 71046; 80048; 80053; 81001; 82140; 82805; 83540; 83550; 83605; 83735; 83880; 84100; 84132; 84484; 85025; 85027; 85379; 85610; 85730; 86850; 86900; 86901; 87040; 87070; 87075; 87077; 87086; 87102; 87116; 87186; 87205; 87206; 87252; 87496; 87498; 87502; 87529; 87634; 87635; 87798; 88108; 88305; 93005; 93306; 94002; 94003; 94640; 94660; 94760; 96374; 99285

== ENCOUNTER 2022-01-27 17:55 | Inpatient (IN) | payer MEDICARE ==
[2022-01-27] MEDS ORDERED: HYDROcodone/APAP 7.5-325MG 1 EACH TAB PO ONE (18:41)
--- NOTE | 2022-01-27 18:55 | ED ---
Fall HPI - General Chief Complaint: Fall Stated Complaint: weakness Time Seen by Provider: 01/27/22 18:17 Source: patient, EMS, RN notes reviewed Mode of arrival: EMS - History of Present Illness Initial Comments: This is a 76-year-old female who presents to the emergency department for a fall. Patient slipped out of her wheelchair and fell onto the ground. Her grandson forgot to check on her because he was camping, and she was unable to reach for a phone or get help. She was subsequently left on the floor for 2-4 days. Currently complaining of pain in her lower back, however she states that she has multiple sclerosis and she does frequently have pain there so she is u nsure if this is new. Otherwise she does not have any pain. She was recently hospitalized from 01/04 through 01/15 for a pneumonia and subsequent respiratory failure requiring intubation. She continues to be on 3 L of oxygen via nasal cannula at home. States that she does continue to feel very short of breath. Denies any chest pain. Denies any fevers, chills, sore throat, cough, chest pain, palpitations, abdominal pain, nausea, vomiting, diarrhea, back pain, or headaches. MD Complaint: fall Fall Witnessed: no Place Fall Occurred: home Loss of Consciousness: unsure Prolonged Down Time?: yes Symptoms Prior to Fall: none Location: back - Related Data Home Medications Medication Instructions Recorded Confirmed Atorvastatin [Lipitor] 80 mg PO HS 08/02/20 01/27/22 Gabapentin [Neurontin] 100 mg PO TID 07/18/21 01/27/22 Escitalopram [Lexapro] 5 mg PO HS 08/18/21 01/27/22 Aspirin [Adult Low Dose Aspirin EC] 81 mg PO DAILY 08/20/21 01/27/22 Furosemide [Lasix] 20 mg PO BID PRN 09/13/21 01/27/22 Fluticasone/Umeclidin/Vilanter 1 puff INHALATION RT-DAILY PRN 11/01/21 01/27/22 [Trelegy Ellipta 100-62.5-25] Letrozole [Femara] 2.5 mg PO DAILY 01/04/22 01/27/22 lisinopriL [Zestril] 2.5 mg PO DAILY 01/04/22 01/27/22 ALPRAZolam [Xanax] 0.25 mg PO BID PRN 01/27/22 01/27/22 predniSONE See Taper PO DIRECTED 01/27/22 01/27/22 Previous Rx's Medication Instructions Recorded Apixaban [Eliquis] 5 mg PO BID #0 08/22/21 Acetaminophen Tab [Tylenol] 500 mg PO Q6HR PRN tab 01/15/22 Albuterol Sulfate [Ventolin HFA] 1 puff INHALATION RT-Q4H PRN #1 01/15/22 each Folic Acid 1 mg PO DAILY #30 tab 01/15/22 Metoprolol Tartrate [Lopressor] 75 mg PO BID #180 tab 01/15/22 Omeprazole [PriLOSEC] 20 mg PO AC-BID #60 cap 01/15/22 Allergies Allergy/AdvReac Type Severity Reaction Status Date / Time sumatriptan [From Imitrex] AdvReac Chest Pain Verified 01/04/22 22:47 Review of Systems ROS Statement: Those systems with pertinent positive or pertinent negative responses have been documented in the HPI. ROS Other: All systems not noted in ROS Statement are negative. Past Medical History Past Medical History: Atrial Fibrillation, Coronary Artery Disease (CAD), Cancer, Heart Failure, COPD, CVA/TIA, Hyperlipidemia, Hypertension, Mitral Valve Prolapse (MVP), Neurologic Disorder, Osteoarthritis (OA), Pneumonia, Skin Disorder, Sleep Apnea/CPAP/BIPAP, Vascular Disorder Additional Past Medical History / Comment(s): "Upper back non-cancerous mass removed 08/17/21 at [facility].". Multiple Sclerosis. PAD/chronic wounds left foot/lower leg, peripheral neuropathy. CVA Jul/Aug 2021. History of Any Multi-Drug Resistant Organisms: None Reported Past Surgical History: Appendectomy, Breast Surgery, Coronary Bypass/CABG, Heart Catheterization With Stent, Orthopedic Surgery, Tonsillectomy Additional Past Surgical History / Comment(s): 08/17/21 surgery at [facility]-cervical or upper back for mass, 11/2020 CABG 4 vessel, PCI/stents in , bilateral iliac arthrectomy/stents, left foot wound debridements, bronchoscopy/lavage, bilateral breast biopsies, D&C, lumpectomy right breast 08/2021. Right mastectomy (11/26/21) Past Anesthesia/Blood Transfusion Reactions: Motion Sickness Additional Past Anesthesia/Blood Transfusion Reaction / Comment(s): No hx blood transfusion. Date of Last Stent Placement:: 2008 Past Psychological History: Anxiety, Depression Additional Psychological History / Comment(s): Pt's due to Covid beginning of August 2021. Smoking Status: Former smoker Past Alcohol Use History: Rare Additional Past Alcohol Use History / Comment(s): Pt started smoking in 1960 and quit May 2020. Past Drug Use History: None Reported Additional Drug Use History / Comment(s): CBD lotion. - Past Family History Father Family Medical History: No Reported History Mother Family Medical History: Cancer Additional Family Medical History / Comment(s): Breast and brain cancer. General Exam Limitations: no limitations General appearance: alert, in no apparent distress Head exam: Present: atraumatic, normocephalic, normal inspection Respiratory exam: Present: wheezes, rhonchi Cardiovascular Exam: Present: regular rate, normal rhythm, normal heart sounds. Absent: systolic murmur, diastolic murmur, rubs, gallop, clicks Neurological exam: Present: alert, oriented X3, CN II-XII intact Psychiatric exam: Present: normal affect, normal mood Skin exam: Present: warm, dry, intact, normal color. Absent: rash Course Vital Signs 01/27/22 01/27/22 01/27/22 18:03 19:51 21:55 Temperature 99.1 F Pulse Rate 95 94 71 Respiratory 18 18 18 Rate Blood Pressure 118/74 140/81 146/104 O2 Sat by Pulse 94 L 99 100 Oximetry Medical Decision Making - Medical Decision Making This is a 76-year-old female who presents to the emergency department for a fall. Lab work consistent with a urinary tract infection, and given the a ssociated back pain, she has likely developed a pyelonephritis. Her creatinine kinase is not elevated to suggest a rhabdomyolysis. Troponin is elevated at 0.108, however this is improved from 01/15 when she was discharged for respiratory failure secondary to pneumonia. At that time the troponin was 0.503. XR of the lumbar spine had no acute irregularities and chest x-ray revealed stable or improving CHF. Given that the patient lives alone and has difficulty caring for herself, she would likely benefit from jail placement or an assisted living facility. Patient will be admitted for pyelonephritis and possible jail placement. Consult to social work placed to discuss this with the patient and her family. Ceftriaxone administered for pyelonephritis and the patient was started on maintenance IV fluids. This case was discussed in detail with the attending ED physician. Presentation, findings, and treatment plan discussed in detail as well. - Lab Data Result diagrams: 01/27/22 19:51 01/27/22 19:51 Lab Results 01/27/22 01/27/22 01/27/22 Range/Units 19:51 19:51 19:51 WBC 10.8 H (3.8-10.6) k/uL RBC 3.16 L (3.80-5.40) m/uL Hgb 8.2 L (11.4-16.0) gm/dL Hct 26.6 L (34.0-46.0) % MCV 84.3 (80.0-100.0) fL MCH 25.9 (25.0-35.0) pg MCHC 30.8 L (31.0-37.0) g/dL RDW 19.1 H (11.5-15.5) % Plt Count 229 (150-450) k/uL MPV 8.5 Neutrophils % 84 % Lymphocytes % 11 % Monocytes % 3 % Eosinophils % 0 % Basophils % 0 % Neutrophils # 9.1 H (1.3-7.7) k/uL Lymphocytes # 1.2 (1.0-4.8) k/uL Monocytes # 0.3 (0-1.0) k/uL Eosinophils # 0.0 (0-0.7) k/uL Basophils # 0.0 (0-0.2) k/uL Hypochromasia Marked Anisocytosis Slight VBG pH (7.31-7.41) VBG pCO2 (37-51) mmHg VBG HCO3 (24-28) mmol/L Sodium 138 (137-145) mmol/L Potassium 4.6 (3.5-5.1) mmol/L Chloride 110 H (98-107) mmol/L Carbon Dioxide 20 L (22-30) mmol/L Anion Gap 8 mmol/L BUN 26 H (7-17) mg/dL Creatinine 0.63 (0.52-1.04) mg/dL Est GFR (CKD-EPI)AfAm >90 (>60 ml/min/1.73 sqM) Est GFR (CKD-EPI)NonAf 89 (>60 ml/min/1.73 sqM) Glucose 96 (74-99) mg/dL Calcium 8.6 (8.4-10.2) mg/dL Total Bilirubin 0.6 (0.2-1.3) mg/dL AST 33 (14-36) U/L ALT 19 (4-34) U/L Alkaline Phosphatase 108 (38-126) U/L Creatine Kinase 73 (30-135) U/L Troponin I (0.000-0.034) ng/mL Total Protein 6.0 L (6.3-8.2) g/dL Albumin 3.1 L (3.5-5.0) g/dL Urine Color Yellow Urine Appearance Cloudy H (Clear) Urine pH 7.0 (5.0-8.0) Ur Specific [place] 1.020 (1.001-1.035) Urine Protein Trace H (Negative) Urine Glucose (UA) Negative (Negative) Urine Ketones 1+ H (Negative) Urine Blood Negative (Negative) Urine Nitrite Positive H (Negative) Urine Bilirubin Negative (Negative) Urine Urobilinogen <2.0 (<2.0) mg/dL Ur Leukocyte Esterase Moderate H (Negative) Urine RBC <1 (0-5) /hpf Urine WBC 14 H (0-5) /hpf Ur Squamous Epith Cells 1 (0-4) /hpf Urine Bacteria Moderate H (None) /hpf Hyaline Casts 1 (0-2) /lpf Urine Mucus Rare H (None) /hpf 01/27/22 01/27/22 Range/Units 19:51 19:51 WBC (3.8-10.6) k/uL RBC (3.80-5.40) m/uL Hgb (11.4-16.0) gm/dL Hct (34.0-46.0) % MCV (80.0-100.0) fL MCH (25.0-35.0) pg MCHC (31.0-37.0) g/dL RDW (11.5-15.5) % Plt Count (150-450) k/uL MPV Neutrophils % % Lymphocytes % % Monocytes % % Eosinophils % % Basophils % % Neutrophils # (1.3-7.7) k/uL Lymphocytes # (1.0-4.8) k/uL Monocytes # (0-1.0) k/uL Eosinophils # (0-0.7) k/uL Basophils # (0-0.2) k/uL Hypochromasia Anisocytosis VBG pH 7.40 (7.31-7.41) VBG pCO2 32 L (37-51) mmHg VBG HCO3 20 L (24-28) mmol/L Sodium (137-145) mmol/L Potassium (3.5-5.1) mmol/L Chloride (98-107) mmol/L Carbon Dioxide (22-30) mmol/L Anion Gap mmol/L BUN (7-17) mg/dL Creatinine (0.52-1.04) mg/dL Est GFR (CKD-EPI)AfAm (>60 ml/min/1.73 sqM) Est GFR (CKD-EPI)NonAf (>60 ml/min/1.73 sqM) Glucose (74-99) mg/dL Calcium (8.4-10.2) mg/dL Total Bilirubin (0.2-1.3) mg/dL AST (14-36) U/L ALT (4-34) U/L Alkaline Phosphatase (38-126) U/L Creatine Kinase (30-135) U/L Troponin I 0.108 H* (0.000-0.034) ng/mL Total Protein (6.3-8.2) g/dL Albumin (3.5-5.0) g/dL Urine Color Urine Appearance (Clear) Urine pH (5.0-8.0) Ur Specific [place] (1.001-1.035) Urine Protein (Negative) Urine Glucose (UA) (Negative) Urine Ketones (Negative) Urine Blood (Negative) Urine Nitrite (Negative) Urine Bilirubin (Negative) Urine Urobilinogen (<2.0) mg/dL Ur Leukocyte Esterase (Negative) Urine RBC (0-5) /hpf Urine WBC (0-5) /hpf Ur Squamous Epith Cells (0-4) /hpf Urine Bacteria (None) /hpf Hyaline Casts (0-2) /lpf Urine Mucus (None) /hpf - EKG Data EKG Comments: Sinus rhythm with frequent PVCs. Possible left atrial enlargement. Ventricular rate 90 bpm, FL interval 159 ms, QRS duration 82 ms, QTC 388 ms. - Radiology Data Radiology results: report reviewed, image reviewed Disposition Clinical Impression: Fall, Pyelonephritis, Elevated troponin Disposition: ADMITTED IP TO THIS HOSP
--- NOTE | 2022-01-27 19:39 | XR ---
EXAMINATION TYPE: XR chest 2V DATE OF EXAM: 01/27/2022 COMPARISON: 01/13/2022 HISTORY: Short of breath TECHNIQUE: FINDINGS: Heart is enlarged. There is some mild pulmonary congestion. There is mild blunting of the c ostophrenic angles. Bony thorax is intact. IMPRESSION: There is mild heart failure that is the same or improved compared to last exam.
--- NOTE | 2022-01-27 19:41 | XR ---
EXAMINATION TYPE: XR lumbar spine 2 or 3V DATE OF EXAM: 01/27/2022 COMPARISON: NONE HISTORY: Back pain TECHNIQUE: 3 views FINDINGS: There is a upper lumbar dextroscoliosis. There is degenerative disc space narrowing through out the lumbar spine with spurring and vacuum disc. No compression fracture. Sacroiliac joints are in tact. There is stent in the left iliac artery. There is mild subluxation of L3 to the right of L4. IMPRESSION: Scoliotic deformity and multilevel spondylosis. No fracture seen.
[2022-01-27 20:00] LABS: Anisocytosis Slight; Basophils % (A) 0 %; Eosinophils % (A) 0 %; HCT 26.6 % (34.0-46.0); HGB 8.2 gm/dL (11.4-16.0); Hypochromasia Marked; Lymphocytes # (A) 1.2 k/uL (1.0-4.8); Lymphocytes % (A) 11 %; MCH 25.9 pg (25.0-35.0); MCHC 30.8 g/dL (31.0-37.0); MCV 84.3 fL (80.0-100.0); Mean Platelet Volume 8.5; Monocytes # (A) 0.3 k/uL (0-1.0); Monocytes % (A) 3 %; Neutrophils # (A) 9.1 k/uL (1.3-7.7); Neutrophils % (A) 84 %; Platelet Count 229 k/uL (150-450); RBC 3.16 m/uL (3.80-5.40); RDW 19.1 % (11.5-15.5); VBG PH 7.4 (7.31-7.41); WBC 10.8 k/uL (3.8-10.6)
[2022-01-27 20:12] LABS: ALT 19 U/L (4-34); AST 33 U/L (14-36); African American GFR (CKD) >90 (>60 ml/min/1.73 sqM); Albumin 3.1 g/dL (3.5-5.0); Alkaline Phosphatase 108 U/L (38-126); Anion Gap 8 mmol/L; Blood Urea Nitrogen 26 mg/dL (7-17); Calcium 8.6 mg/dL (8.4-10.2); Carbon Dioxide 20 mmol/L (22-30); Chloride 110 mmol/L (98-107); Creatine Kinase 73 U/L (30-135); Glucose 96 mg/dL (74-99); Non-African American GFR(CKD) 89 (>60 ml/min/1.73 sqM); Potassium 4.6 mmol/L (3.5-5.1); Sodium 138 mmol/L (137-145); Total Bilirubin 0.6 mg/dL (0.2-1.3)
[2022-01-27 20:14] LABS: Appearance,Urine Cloudy (Clear); Bacteria,Urine Moderate /hpf; Bilirubin,Urine Negative (Negative); Blood,Urine Negative (Negative); Color,Urine Yellow; Glucose,Urine (UA) Negative (Negative); Hyaline Casts,Urine 1 /lpf (0-2); Ketones,Urine 1+ (Negative); Leukocyte Esterase,Urine Moderate (Negative); Mucus,Urine Rare /hpf; Nitrite,Urine Positive (Negative); Protein,Urine Trace (Negative); RBC,Urine <1 /hpf (0-5); Squamous Epithelial Cell,Urine 1 /hpf (0-4); Urobilinogen,Urine <2.0 mg/dL (<2.0); WBC,Urine 14 /hpf (0-5)
[2022-01-27] MEDS ORDERED: SODIUM CHLORIDE 0.9% 1,000 ML IV STA (20:16)
[2022-01-27] MEDS ORDERED: cefTRIAXone IN SWFI 1,000 MG/10 ML SYRINGE IVP STA (20:16)
[2022-01-27] MEDS ORDERED: ONDANSETRON 4 MG/2 ML VIAL IVP PRN (22:39)
[2022-01-27] MEDS ORDERED: NALOXONE 0.4 MG/ML 1 ML VIAL IV PRN (22:39)
[2022-01-27] MEDS ORDERED: ACETAMINOPHEN TAB 325 MG TAB PO PRN (22:39)
[2022-01-27] MEDS ORDERED: oxyCODONE-APAP 5-325MG 1 EACH TAB PO PRN (22:39)
[2022-01-27] MEDS ORDERED: IPRATROPIUM 0.5 MG/2.5 ML NEBU INHALATION PRN (22:42)
[2022-01-27] MEDS: METOPROLOL TARTRATE 25 MG TAB PO SCH (22:57)
[2022-01-27] MEDS: SODIUM CHLORIDE 0.9% 1,000 ML IV SCH (22:57)
[2022-01-27] MEDS: GABAPENTIN 100 MG CAP PO SCH (22:57)
[2022-01-27] MEDS: APIXABAN 5 MG TAB PO SCH (22:57)
[2022-01-27] MEDS: ATORVASTATIN 80 MG TAB PO SCH (22:57)
[2022-01-27] MEDS: ESCITALOPRAM 5 MG TAB PO SCH (22:58)
[2022-01-28] MEDS: HYDROcodone/APAP 5-325MG 1 EACH TAB PO PRN ×2 (00:28→18:00)
[2022-01-28] MEDS: SODIUM CHLORIDE 0.9% 1,000 ML IV SCH (00:30)
[2022-01-28] MEDS: PANTOPRAZOLE 40 MG TABLET PO SCH (06:27)
[2022-01-28] MEDS: SYMBICORT 80-4.5 MCG INHALER INHALATION SCH ×2 (07:43→20:28)
[2022-01-28 08:10] LABS: ALT 20 U/L (4-34); AST 28 U/L (14-36); African American GFR (CKD) >90 (>60 ml/min/1.73 sqM); Albumin 2.9 g/dL (3.5-5.0); Alkaline Phosphatase 129 U/L (38-126); Anion Gap 7 mmol/L; Blood Urea Nitrogen 25 mg/dL (7-17); Calcium 8.1 mg/dL (8.4-10.2); Carbon Dioxide 20 mmol/L (22-30); Chloride 111 mmol/L (98-107); Creatine Kinase 58 U/L (30-135); Glucose 73 mg/dL (74-99); Non-African American GFR(CKD) 86 (>60 ml/min/1.73 sqM); Potassium 4.1 mmol/L (3.5-5.1); Sodium 138 mmol/L (137-145); Total Bilirubin 0.5 mg/dL (0.2-1.3); Total Protein 5.5 g/dL (6.3-8.2)
[2022-01-28 08:18] LABS: Anisocytosis Slight; Basophils % (A) 0 %; Eosinophils % (A) 0 %; HCT 24.7 % (34.0-46.0); HGB 7.4 gm/dL (11.4-16.0); Hypochromasia Marked; Lymphocytes # (A) 1.4 k/uL (1.0-4.8); Lymphocytes % (A) 18 %; MCH 25.4 pg (25.0-35.0); MCV 84.8 fL (80.0-100.0); Mean Platelet Volume 7.8; Monocytes # (A) 0.3 k/uL (0-1.0); Monocytes % (A) 4 %; Neutrophils % (A) 76 %; Platelet Count 210 k/uL (150-450); RBC 2.92 m/uL (3.80-5.40); RDW 18.9 % (11.5-15.5); WBC 7.9 k/uL (3.8-10.6)
[2022-01-28] MEDS: GABAPENTIN 100 MG CAP PO SCH ×3 (08:37→20:20)
[2022-01-28] MEDS: LETROZOLE 2.5 MG TAB PO SCH (08:37)
[2022-01-28] MEDS: FOLIC ACID 1 MG TAB PO SCH (08:37)
[2022-01-28] MEDS: ASPIRIN 81 MG PO SCH (08:38)
[2022-01-28] MEDS: METOPROLOL TARTRATE 25 MG TAB PO SCH ×2 (08:38→20:20)
[2022-01-28] MEDS: APIXABAN 5 MG TAB PO SCH ×2 (08:38→20:20)
--- NOTE | 2022-01-28 09:37 | P.HPIM ---
History of Present Illness This is a pleasant 76 years old female with past medical history of Atrial Fibrillation, Coronary Artery Disease , Heart Failure, COPD, CVA/TIA, Hyperlipidemia, Hypertension, , Osteoarthritis Sleep Apnea/CPAP/BIPAP, , Coronary Bypass/CABG, Heart Catheterization With Stent, Pt's due to Covid beginning of August 2021. History of multiple sclerosis Patient slipped from her wheelchair and was on the ground and could not get up for 2 days She denies any dizziness or syncope. She denies any chest pain or dyspnea or coughing currently. She has some mild discomfort earlier which is better now. She thinks she has weakness in both upper extremities although she has strong hand case assistant but she had difficulty pulling her up from the floor which usually she can do as she states. She denies any headache or numbness. She's been on Zainab for about a month, before that she was able to walk little bit. She is also complaining of from a pain like a band around her lower back and the sites which is resolved now. No abdominal pain or vomiting or diarrhea. She is complaining of from dysuria Vitals are stable and patient is afebrile. Labs showing mild leukocytosis of 10.8, hemoglobin 8.2, platelet count 2129. BMP and liver enzymes are unremarkable Elevated troponin of 0.108 Urine analysis is suspicious for infection Chest x-ray: Showing mild heart failure improved from last time Lumbar x-ray: No fracture In the emergency room she received ceftriaxone, IV fluid and [place] Review of Systems Review of systems CONSTITUTIONAL: No fever, no malaise, no fatigue. HEENT: No recent visual problems or hearing problems. Denied any sore throat. CARDIOVASCULAR: No orthopnea, PND, no palpitations, no syncope. PULMONARY: No shortness of breath, no cough, no hemoptysis. GASTROINTESTINAL: No diarrhea, no nausea, no vomiting, no abdominal pain. Normoactive bowel sounds. NEUROLOGICAL: No headaches, no weakness, no numbness. HEMATOLOGICAL: Denies any bleeding or petechiae. GENITOURINARY: Denies any burning micturition, frequency, or urgency. MUSCULOSKELETAL/RHEUMATOLOGICAL: Denies any joint pain, swelling, or any muscle pain. ENDOCRINE: Denies any polyuria or polydipsia. Past Medical History Past Medical History: Atrial Fibrillation, Coronary Artery Disease (CAD), Cancer, Heart Failure, COPD, CVA/TIA, Hyperlipidemia, Hypertension, Mitral Valve Prolapse (MVP), Neurologic Disorder, Osteoarthritis (OA), Pneumonia, Skin Disorder, Sleep Apnea/CPAP/BIPAP, Vascular Disorder Additional Past Medical History / Comment(s): "Upper back non-cancerous mass removed 08/17/21 at [facility].". Multiple Sclerosis. PAD/chronic wounds left foot/lower leg, peripheral neuropathy. CVA Jul/Aug 2021. History of Any Multi-Drug Resistant Organisms: None Reported Past Surgical History: Appendectomy, Breast Surgery, Coronary Bypass/CABG, Heart Catheterization With Stent, Orthopedic Surgery, Tonsillectomy Additional Past Surgical History / Comment(s): 08/17/21 surgery at [facility]-cervical or upper back for mass, 11/2020 CABG 4 vessel, PCI/stents in , bilateral iliac arthrectomy/stents, left foot wound debridements, bronchoscopy/lavage, bilateral breast biopsies, D&C, lumpectomy right breast 08/2021. Right mastectomy (11/26/21) Past Anesthesia/Blood Transfusion Reactions: Motion Sickness Additional Past Anesthesia/Blood Transfusion Reaction / Comment(s): No hx blood transfusion. Date of Last Stent Placement:: 2008 Past Psychological History: Anxiety, Depression Additional Psychological History / Comment(s): Pt's due to Covid beginning of August 2021. Smoking Status: Former smoker Past Alcohol Use History: Rare Additional Past Alcohol Use History / Comment(s): Pt started smoking in 1960 and quit May 2020. Past Drug Use History: None Reported Additional Drug Use History / Comment(s): CBD lotion. - Past Family History Father Family Medical History: No Reported History Mother Family Medical History: Cancer Additional Family Medical History / Comment(s): Breast and brain cancer. Medications and Allergies Home Medications Medication Instructions Recorded Confirmed Type Atorvastatin [Lipitor] 80 mg PO HS 08/02/20 01/27/22 History Gabapentin [Neurontin] 100 mg PO TID 07/18/21 01/27/22 History Escitalopram [Lexapro] 5 mg PO HS 08/18/21 01/27/22 History Aspirin [Adult Low Dose Aspirin EC] 81 mg PO DAILY 08/20/21 01/27/22 History Apixaban [Eliquis] 5 mg PO BID #0 08/22/21 01/27/22 Rx Furosemide [Lasix] 20 mg PO BID PRN 09/13/21 01/27/22 History Fluticasone/Umeclidin/Vilanter 1 puff INHALATION RT-DAILY PRN 11/01/21 01/27/22 History [[place] 100-62.5-25] Letrozole [Femara] 2.5 mg PO DAILY 01/04/22 01/27/22 History lisinopriL [Zestril] 2.5 mg PO DAILY 01/04/22 01/27/22 History Acetaminophen Tab [Tylenol] 500 mg PO Q6HR PRN tab 01/15/22 01/27/22 Rx Albuterol Sulfate [Ventolin HFA] 1 puff INHALATION RT-Q4H PRN #1 01/15/22 01/27/22 Rx each Folic Acid 1 mg PO DAILY #30 tab 01/15/22 01/27/22 Rx Metoprolol Tartrate [Lopressor] 75 mg PO BID #180 tab 01/15/22 01/27/22 Rx Omeprazole [PriLOSEC] 20 mg PO AC-BID #60 cap 01/15/22 01/27/22 Rx ALPRAZolam [Xanax] 0.25 mg PO BID PRN 01/27/22 01/27/22 History predniSONE See Taper PO DIRECTED 01/27/22 01/27/22 History Allergies Allergy/AdvReac Type Severity Reaction Status Date / Time sumatriptan [From Imitrex] AdvReac Chest Pain Verified 01/04/22 22:47 Physical Exam Vitals: Vital Signs Temp Pulse Pulse Resp BP BP Pulse Ox 01/28/22 03:43 97.9 F 76 16 131/61 98 01/28/22 02:00 76 16 01/28/22 00:44 72 18 01/28/22 00:00 98.4 F 72 18 135/65 100 01/27/22 21:55 71 18 146/104 100 01/27/22 19:51 94 18 140/81 99 01/27/22 18:03 99.1 F 95 18 118/74 94 L Intake and Output 01/27/22 01/28/22 01/28/22 22:59 06:59 14:59 Intake Total 1150 Balance 1150 Intake: Intake, IV Titration 1150 Amount Sodium Chloride 0.9% 1, 150 000 ml @ 75 mls/hr IV . [id number] MARY ANNE Rx#:[id number] Sodium Chloride 0.9% 1, 1000 000 ml @ 999 mls/hr IV . Q1H1M STA Rx#:[id number] Other: Voiding Method Indwelling Catheter Weight 52.617 kg 52.617 kg GENERAL: The patient is alert and oriented x3, not in any acute distress. Well developed, well nourished. HEENT: Pupils are round and equally reacting to light. EOMI. No scleral icterus. No conjunctival pallor. Normocephalic, atraumatic. No pharyngeal erythema. No thyromegaly. CARDIOVASCULAR: S1 and S2 present. No murmurs, rubs, or gallops. PULMONARY: Chest is clear to auscultation, no wheezing or crackles. ABDOMEN: Soft, nontender, nondistended, normoactive bowel sounds. No palpable organomegaly. MUSCULOSKELETAL: No joint swelling or deformity. EXTREMITIES: No cyanosis, clubbing, or pedal edema. -NEUROLOGICAL: Gross neurological examination did not reveal any focal deficits. She has chronic bilateral lower extremity weakness strength 5/5 in upper extremity. Sensation is intact SKIN: No rashes. no petechiae. Results CBC & Chem 7: 01/28/22 06:07 01/28/22 06:07 Labs: Abnormal Lab Results - Last 24 Hours (Table) 01/27/22 01/27/22 01/27/22 Range/Units 19:51 19:51 19:51 WBC 10.8 H (3.8-10.6) k/uL RBC 3.16 L (3.80-5.40) m/uL Hgb 8.2 L (11.4-16.0) gm/dL Hct 26.6 L (34.0-46.0) % MCHC 30.8 L (31.0-37.0) g/dL RDW 19.1 H (11.5-15.5) % Neutrophils # 9.1 H (1.3-7.7) k/uL VBG pCO2 (37-51) mmHg VBG HCO3 (24-28) mmol/L Chloride 110 H (98-107) mmol/L Carbon Dioxide 20 L (22-30) mmol/L BUN 26 H (7-17) mg/dL Glucose (74-99) mg/dL Calcium (8.4-10.2) mg/dL Alkaline Phosphatase (38-126) U/L Troponin I (0.000-0.034) ng/mL Total Protein 6.0 L (6.3-8.2) g/dL Albumin 3.1 L (3.5-5.0) g/dL Urine Appearance Cloudy H (Clear) Urine Protein Trace H (Negative) Urine Ketones 1+ H (Negative) Urine Nitrite Positive H (Negative) Ur Leukocyte Esterase Moderate H (Negative) Urine WBC 14 H (0-5) /hpf Urine Bacteria Moderate H (None) /hpf Urine Mucus Rare H (None) /hpf 01/27/22 01/27/22 01/28/22 Range/Units 19:51 19:51 06:07 WBC (3.8-10.6) k/uL RBC 2.92 L (3.80-5.40) m/uL Hgb 7.4 L (11.4-16.0) gm/dL Hct 24.7 L (34.0-46.0) % MCHC 30.0 L (31.0-37.0) g/dL RDW 18.9 H (11.5-15.5) % Neutrophils # (1.3-7.7) k/uL VBG pCO2 32 L (37-51) mmHg VBG HCO3 20 L (24-28) mmol/L Chloride (98-107) mmol/L Carbon Dioxide (22-30) mmol/L BUN (7-17) mg/dL Glucose (74-99) mg/dL Calcium (8.4-10.2) mg/dL Alkaline Phosphatase (38-126) U/L Troponin I 0.108 H* (0.000-0.034) ng/mL Total Protein (6.3-8.2) g/dL Albumin (3.5-5.0) g/dL Urine Appearance (Clear) Urine Protein (Negative) Urine Ketones (Negative) Urine Nitrite (Negative) Ur Leukocyte Esterase (Negative) Urine WBC (0-5) /hpf Urine Bacteria (None) /hpf Urine Mucus (None) /hpf 01/28/22 01/28/22 Range/Units 06:07 06:07 WBC (3.8-10.6) k/uL RBC (3.80-5.40) m/uL Hgb (11.4-16.0) gm/dL Hct (34.0-46.0) % MCHC (31.0-37.0) g/dL RDW (11.5-15.5) % Neutrophils # (1.3-7.7) k/uL VBG pCO2 (37-51) mmHg VBG HCO3 (24-28) mmol/L Chloride 111 H (98-107) mmol/L Carbon Dioxide 20 L (22-30) mmol/L BUN 25 H (7-17) mg/dL Glucose 73 L (74-99) mg/dL Calcium 8.1 L (8.4-10.2) mg/dL Alkaline Phosphatase 129 H (38-126) U/L Troponin I 0.084 H* (0.000-0.034) ng/mL Total Protein 5.5 L (6.3-8.2) g/dL Albumin 2.9 L (3.5-5.0) g/dL Urine Appearance (Clear) Urine Protein (Negative) Urine Ketones (Negative) Urine Nitrite (Negative) Ur Leukocyte Esterase (Negative) Urine WBC (0-5) /hpf Urine Bacteria (None) /hpf Urine Mucus (None) /hpf Thrombosis Risk Factor Assmnt - Choose All That Apply Each Factor Represents 1 point: Abnormal pulmonary function (COPD), Medical pt on bed rest, Serious lung disease incl. pneumonia (< 1month) Each Risk Factor Represents 2 Points: Age 61-74 years Other congenital or acquired thrombophilia - If yes, enter type in comment: No Thrombosis Risk Factor Assessment Total Risk Factor Score: 5 Thrombosis Risk Factor Assessment Level: High Risk Assessment and Plan Assessment: Acute urinary tract infection Elevated troponin EKG showed normal sinus rhythm at [address]-T changes Dehydration Fall on the floor with inability to stand up for 2 days History of multiple sclerosis, rule out acute flareup History of coronary artery disease status post CABG and stent Chronic atrial fibrillation on Eliquis COPD, no acute exacerbation Chronic heart failure History of CVA/TIA Hypertension Hyperlipidemia History of osteoarthritis History of sleep apnea Plan: This is a pleasant 76 years old female who presents with fall and inability to stand up for 2 days Continue g continue with ceftriaxone follow-up urine culture Continue with IV hydration Consult neurology Consults cardiology. Continue with the liquids and aspirin. Continue with metoprolol and lisinopril. And statin Labs and medication were reviewed.. Continue same treatment. Continue with symptomatic treatment. Resume home medication. Monitor lytes and vitals. DVT and GI prophylaxis. Further recommendations as per clinical course of the patient DVT prophylaxis Eliquis GI Prophylaxis: Pepcid PT/OT: Pending Prognosis is guarded
--- NOTE | 2022-01-28 10:22 | US ---
EXAMINATION TYPE: US renals and bladder DATE OF EXAM: 01/28/2022 COMPARISON: NONE CLINICAL HISTORY: uti and pain. UTI, BILATERAL FLANK PAIN EXAM MEASUREMENTS: Right Kidney: 10.1 x 4.0 x 4.3 cm Left Kidney: 10.4 x 4.7 x 5.3 cm Right Kidney: No hydronephrosis or calcifications seen, cystic area noted in mid/ upper pole measurin g 2.9 x 2.7 x 2.5cm, simple cystic Left Kidney: No hydronephrosis or calcifications seen, cystic area noted in mid pelvis area measuring approx. 2.0 x 1.2 x 1.5cm, some low-level internal echoes not excluded, findings could be technical, possible focal caliectasis Bladder: Non distended, harden bulb seen Bilateral Jets seen: No Calcification noted in GB neck area measuring approx. 2.9 x 2.0cm There is no evidence for hydronephrosis at this point in time. No nephrolithiasis is seen. Cortical medullary differentiation is maintained. No masses are identified. The urinary bladder is catheteriz ed. IMPRESSION: Simple cyst right kidney. Some limitations in evaluation of left renal cystic focus, possible parapel evelia cyst or focal caliectasis. Follow-up suggested. Incidental cholelithiasis. Limitations as describ ed.
[2022-01-28] MEDS: ATORVASTATIN 80 MG TAB PO SCH (20:20)
[2022-01-28] MEDS: ESCITALOPRAM 5 MG TAB PO SCH (20:20)
[2022-01-29] MEDS: SODIUM CHLORIDE 0.9% 1,000 ML IV SCH (02:33)
[2022-01-29] MEDS: PANTOPRAZOLE 40 MG TABLET PO SCH (06:16)
[2022-01-29] MEDS: SYMBICORT 80-4.5 MCG INHALER INHALATION SCH ×2 (08:23→18:37)
[2022-01-29 08:41] LABS: Anisocytosis Slight; Basophils % (A) 0 %; Eosinophils # (A) 0.1 k/uL (0-0.7); Eosinophils % (A) 1 %; HCT 25.5 % (34.0-46.0); HGB 7.5 gm/dL (11.4-16.0); Hypochromasia Marked; Lymphocytes # (A) 1.3 k/uL (1.0-4.8); Lymphocytes % (A) 17 %; MCH 25.5 pg (25.0-35.0); MCHC 29.5 g/dL (31.0-37.0); MCV 86.4 fL (80.0-100.0); Mean Platelet Volume 7.7; Monocytes # (A) 0.3 k/uL (0-1.0); Monocytes % (A) 4 %; Neutrophils # (A) 5.7 k/uL (1.3-7.7); Neutrophils % (A) 78 %; Platelet Count 196 k/uL (150-450); RBC 2.96 m/uL (3.80-5.40); RDW 18.6 % (11.5-15.5); WBC 7.3 k/uL (3.8-10.6)
[2022-01-29] MEDS: ASPIRIN 81 MG PO SCH (08:45)
[2022-01-29] MEDS: GABAPENTIN 100 MG CAP PO SCH ×3 (08:45→19:56)
[2022-01-29] MEDS: FOLIC ACID 1 MG TAB PO SCH (08:45)
[2022-01-29] MEDS: APIXABAN 5 MG TAB PO SCH ×2 (08:45→19:56)
[2022-01-29] MEDS: METOPROLOL TARTRATE 25 MG TAB PO SCH ×2 (08:45→19:55)
[2022-01-29 09:05] LABS: African American GFR (CKD) >90 (>60 ml/min/1.73 sqM); Anion Gap 6 mmol/L; Blood Urea Nitrogen 19 mg/dL (7-17); Calcium 7.9 mg/dL (8.4-10.2); Carbon Dioxide 22 mmol/L (22-30); Chloride 111 mmol/L (98-107); Glucose 119 mg/dL (74-99); Magnesium 1.8 mg/dL (1.6-2.3); Non-African American GFR(CKD) 87 (>60 ml/min/1.73 sqM); Potassium 4.1 mmol/L (3.5-5.1); Sodium 139 mmol/L (137-145)
--- NOTE | 2022-01-29 09:46 | XR ---
EXAMINATION TYPE: XR chest 2V DATE OF EXAM: 01/29/2022 COMPARISON: Chest x-ray 01/27/2022 HISTORY: Congestive heart failure TECHNIQUE: Frontal and lateral views of the chest are obtained. FINDINGS: Cardiac mediastinal silhouette is stable and thought to be indicative of an enlarged heart , the patient is rotated however. No evident pneumothorax. There is blunting the costophrenic angles, patchy basilar density is noted. Central vascularity appears increased. Patient is post left atrial appendage clip placement. Aorta is dense. There is some thickening the minor fissure. Interstitium is increased. IMPRESSION: Findings could be indicative of pulmonary venous hypertension and interstitial edema, si milar to prior exam. Difficult to exclude basilar effusions.
[2022-01-29] MEDS ORDERED: FUROSEMIDE 20 MG TAB PO SCH (10:00)
[2022-01-29] MEDS ORDERED: FUROSEMIDE 10 MG/ML 2 ML VIAL IV ONE (10:24)
--- NOTE | 2022-01-29 10:29 | P.PN ---
Subjective This is a pleasant 76 years old female with past medical history of Atrial Fibrillation, Coronary Artery Disease , Heart Failure, COPD, CVA/TIA, Hyp erlipidemia, Hypertension, , Osteoarthritis Sleep Apnea/CPAP/BIPAP, , Coronary Bypass/CABG, Heart Catheterization With Stent, Pt's due to Covid beginning of August 2021. History of multiple sclerosis Patient slipped from her wheelchair and was on the ground and could not get up for 2 days She denies any dizziness or syncope. She denies any chest pain or dyspnea or coughing currently. She has some mild discomfort earlier which is better now. 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 She denies any headache or numbness. She's been on [place] for about a month, before that she was able to walk little bit. She is also complaining of from a pain like a band around her lower back and the sites which is resolved now. No abdominal pain or vomiting or diarrhea. She is complaining of from dysuria Vitals are stable and patient is afebrile. Labs showing mild leukocytosis of 10.8, hemoglobin 8.2, platelet count 2129. BMP and liver enzymes are unremarkable Elevated troponin of 0.108 Urine analysis is suspicious for infection Chest x-ray: Showing mild heart failure improved from last time Lumbar x-ray: No fracture In the emergency room she received ceftriaxone, IV fluid and [place] 12/31/2021 Patient little tachypneic this morning while at bed. Repeat chest x-ray showing similar findings with hyperinflated chest and some pulmonary congestion. IV fluids were stopped, patient is already on Lasix by mouth 20 mg twice a day. We will add Aldactone 25 mg daily. Check labs tomorrow morning. Here patient also receiving treatment for acute UTI with ceftriaxone, her weakness is improving. Tadeo catheter draining yellow urine. Continue with home dose of Eliquis 5 mg and aspirin 81 mg. No active chest pain. 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 Objective - Vital Signs Vital signs: Vital Signs Temp 98.3 F 01/29/22 04:00 Pulse 74 01/29/22 08:00 Resp 16 01/29/22 08:00 BP 115/55 01/29/22 08:00 Pulse Ox 96 01/29/22 08:00 FiO2 Intake & Output 01/28/22 01/29/22 01/29/22 18:59 06:59 18:59 Intake Total 840 1500 Output Total 250 375 Balance 590 1125 Weight 52.617 kg Intake: Intake, IV Titration 600 900 Amount Sodium Chloride 0.9% 1, 550 900 000 ml @ 75 mls/hr IV . [id number] MARY ANNE Rx#:[id number] cefTRIAXone 1 gm In 50 Sodium Chloride 0.9% 50 ml @ 100 mls/hr IVPB Q24HR MARY ANNE Rx#:[id number] Oral 240 600 Output: Urine 250 375 Other: Voiding Method Indwelling Catheter Indwelling Catheter - Exam GENERAL: The patient is alert and oriented x3, not in any acute distress. Well developed, well nourished. HEENT: Pupils are round and equally reacting to light. EOMI. No scleral icterus. No conjunctival pallor. Normocephalic, atraumatic. No pharyngeal erythema. No thyromegaly. CARDIOVASCULAR: S1 and S2 present. No murmurs, rubs, or gallops. -PULMONARY: Chest is clear to auscultation, no wheezing or crackles. Mild basal crepitation ABDOMEN: Soft, nontender, nondistended, normoactive bowel sounds. No palpable organomegaly. MUSCULOSKELETAL: No joint swelling or deformity. EXTREMITIES: No cyanosis, clubbing, or pedal edema. NEUROLOGICAL: Gross neurological examination did not reveal any focal deficits. SKIN: No rashes. no petechiae. - Labs CBC & Chem 7: 01/29/22 08:16 01/29/22 08:16 Labs: Abnormal Lab Results - Last 24 Hours (Table) 01/29/22 01/29/22 Range/Units 08:16 08:16 RBC 2.96 L (3.80-5.40) m/uL Hgb 7.5 L (11.4-16.0) gm/dL Hct 25.5 L (34.0-46.0) % MCHC 29.5 L (31.0-37.0) g/dL RDW 18.6 H (11.5-15.5) % Chloride 111 H (98-107) mmol/L BUN 19 H (7-17) mg/dL Glucose 119 H (74-99) mg/dL Calcium 7.9 L (8.4-10.2) mg/dL Microbiology - Last 24 Hours (Table) 01/27/22 20:50 Blood Culture - Preliminary Blood No Growth after 24 hours 01/27/22 19:51 Urine Culture - Preliminary Urine,Voided Assessment and Plan Assessment: Acute urinary tract infection Elevated troponin EKG showed normal sinus rhythm at [address]-T changes Dehydration Fall on the floor with inability to stand up for 2 days History of multiple sclerosis, rule out acute flareup History of coronary artery disease status post CABG and stent Chronic atrial fibrillation on Eliquis COPD, no acute exacerbation Chronic heart failure History of CVA/TIA Hypertension Hyperlipidemia History of osteoarthritis History of sleep apnea Plan: This is a pleasant 76 years old female who presents with fall and inability to stand up for 2 days Continue g continue with ceftriaxone follow-up urine culture Discontinue IV hydration Add Aldactone Consults cardiology. Continue with the liquids and aspirin. Continue with metoprolol and lisinopril. And statin Labs and medication were reviewed.. Continue same treatment. Continue with symptomatic treatment. Resume home medication. Monitor lytes and vitals. DVT and GI prophylaxis. Further recommendations as per clinical course of the patient DVT prophylaxis Eliquis GI Prophylaxis: Pepcid PT/OT: Pending Prognosis is guarded
[2022-01-29] MEDS ORDERED: SPIRONOLACTONE 25 MG TAB PO SCH (10:30)
[2022-01-29] MEDS: LETROZOLE 2.5 MG TAB PO SCH (12:20)
[2022-01-29] MEDS: SPIRONOLACTONE 25 MG TAB PO SCH (12:20)
[2022-01-29] MEDS ORDERED: FUROSEMIDE 10 MG/ML 2 ML VIAL ONE (12:24)
[2022-01-29] MEDS: FUROSEMIDE 10 MG/ML 2 ML VIAL IV SCH ×2 (12:26→19:56)
--- NOTE | 2022-01-29 12:26 | P.CRDCN ---
History of Present Illness History of present illness: HISTORY OF PRESENTING ILLNESS This is a pleasant 76-year-old female past medical history significant for paroxysmal atrial fibrillation on Eliquis, coronary artery disease s/p CABG 11/2020, multiple sclerosis, ischemic cardiomyopathy, history of LV thrombus, peripheral artery disease status post prior angioplasty, hypertension, dyslipidemia, former nicotine dependence, mitral regurgitation, obstructive sleep apnea, COPD, recent diagnosis of breast cancer status post lumpectomy 08/2021 and mastectomy 11/2021, recent admission to the hospital 01/04- 01/15/2022 for pneumonia, congestive heart failure, atrial fib with RVR and respiratory failure mucous plugging involving the left mainstem bronchus with complete collapse of the left lung, requiring intubation. She follows in the office with Dr. Adame. We have been asked to see in consultation for elevated troponin. Patient presents to the ER with complaints of fall. She apparently slipped out of her wheelchair and fell on the ground. She was on the floor for 2 days. Her grandson called with no answer, sent neighbor over to check on her and EMS was called. She endorses increased shortness of breath, needing her oxygen on consistently, the minute she takes it off she feels dyspnea on exertion and anxiety. She denies any chest pain, lightheadedness, dizziness, syncope or loss of consciousness. She denies any fever, cough or chills. She denies any bleeding or dark/tarry stools. DIAGNOSTICS EKG reveals sinus rhythm, frequent PVCs, nonspecific ST or T-wave abnormalities. No acute ischemia noted. Telemetry tracings indicate sinus rhythm Chest xray mild pulmonary congestion, heart is enlarged. Laboratory reviewed, WBC 7.9, hemoglobin 7.4, platelets 210, sodium 138, potassium 4.1, BUN 25, serum creatinine 0.6, troponin 0.10, 0.08, proBNP 11,000, UA positive UTI Echocardiogram 01/06/2022 revealed an EF of 4550%, inferior basal hypokinesis, mild to moderate mitral regurgitation Current home cardiac medications include metoprolol titrate 75 mg twice a day, lisinopril 2.5 mg daily, Lasix 20 mg twice a day when necessary, atorvastatin 80 mg nightly, aspirin 81 mg daily, Eliquis 5 mg twice a day REVIEW OF SYSTEMS At the time of my exam: CONSTITUTIONAL: Denies fever or chills. CARDIOVASCULAR: Denies chest pain,Reports shortness of breath, Denies orthopnea, PND or palpitations. RESPIRATORY: Denies cough. GASTROINTESTINAL: Denies abdominal pain, diarrhea, constipation, nausea or vomiting. MUSCULOSKELETAL: Denies myalgias. NEUROLOGIC: Denies numbness, tingling, headacbe or weakness. ENDOCRINE: Denies fatigue, weight change, polydipsia or polyurina. GENITOURINARY: Denies burning, hematuria or urgency with micturation. HEMATOLOGIC: +history of anemia or bleeding. PHYSICAL EXAMINATION Vitals reviewed CONSTITUTIONAL: No apparent distress. HEENT: Head is normocephalic. Pupils are equal, round. Sclerae anicteric. Mucous membranes of the mouth are moist. No JVD. No carotid bruit. CHEST EXAMINATION: Lungs are crackles in the bilateral bases to auscultation. No chest wall tenderness is noted on palpation or with deep breathing. HEART EXAMINATION: Regular rate and rhythm. S1, S2 heard. Systolic murmur heard at base and apex, No gallops or rub. ABDOMEN: Soft, nontender. Positive bowel sounds. EXTREMITIES: no lower extremity edema and no calf tenderness. Bilateral feet are cool, difficult to obtain pedal pulse NEUROLOGIC EXAMINATION: Patient is awake, alert and oriented x3. ASSESSMENT Shortness of breath Elevated troponin, chronic elevated troponin, ACS unlikely. Mechanical fall at home, on the floor for 2 days Urinary tract infection Paroxysmal atrial fibrillation on Eliquis Coronary artery disease s/p CABG 11/2020 Acute on chronic heart failure with preserved ejection fraction, borderline EF 45-50% History of Multiple sclerosis Ischemic cardiomyopathy History of LV thrombus Peripheral artery disease status post prior angioplasty Hypertension Dyslipidemia Former nicotine dependence Mitral regurgitation, mild to moderate Obstructive sleep apnea COPD Breast cancer status post lumpectomy 08/2021 and mastectomy 11/2021 Recent admission to the hospital 01/04-01/15/2022 for pneumonia, atrial fib with RVR and respiratory failure mucous plugging involving the left mainstem bronc hus with complete collapse of the left lung, requiring intubation PLAN Limited 2D echocardiogram IV lasix 20mg BID Monitor I/Os, daily weights, renal function and electrolytes Monitor Hemoglobin Continue atorvastatin, Eliquis, lisinopril 2.5 mg daily, metoprolol Further recommendations based on clinical course Nurse practitioner note has been reviewed by physician. Signing provider agrees with the documented findings, assessment, and plan of care. Past Medical History Past Medical History: Atrial Fibrillation, Coronary Artery Disease (CAD), Cancer , Heart Failure, COPD, CVA/TIA, Hyperlipidemia, Hypertension, Mitral Valve Prolapse (MVP), Neurologic Disorder, Osteoarthritis (OA), Pneumonia, Skin Disorder, Sleep Apnea/CPAP/BIPAP, Vascular Disorder Additional Past Medical History / Comment(s): "Upper back non-cancerous mass removed 08/17/21 at [facility].". Multiple Sclerosis. PAD/chronic wounds left foot/lower leg, peripheral neuropathy. CVA Jul/Aug 2021. History of Any Multi-Drug Resistant Organisms: None Reported Past Surgical History: Appendectomy, Breast Surgery, Coronary Bypass/CABG, Heart Catheterization With Stent, Orthopedic Surgery, Tonsillectomy Additional Past Surgical History / Comment(s): 08/17/21 surgery at [facility]-cervical or upper back for mass, 11/2020 CABG 4 vessel, PCI/stents in , bilateral iliac arthrectomy/stents, left foot wound debridements, bronchoscopy/lavage, bilateral breast biopsies, D&C, lumpectomy right breast 08/2021. Right mastectomy (11/26/21) Past Anesthesia/Blood Transfusion Reactions: Motion Sickness Additional Past Anesthesia/Blood Transfusion Reaction / Comment(s): No hx blood transfusion. Date of Last Stent Placement:: 2008 Past Psychological History: Anxiety, Depression Additional Psychological History / Comment(s): Pt's due to Covid beginning of August 2021. Smoking Status: Former smoker Past Alcohol Use History: Rare Additional Past Alcohol Use History / Comment(s): Pt started smoking in 1960 and quit May 2020. Past Drug Use History: None Reported Additional Drug Use History / Comment(s): CBD lotion. - Past Family History Father Family Medical History: No Reported History Mother Family Medical History: Cancer Additional Family Medical History / Comment(s): Breast and brain cancer. Medications and Allergies Home Medications Medication Instructions Recorded Confirmed Type Atorvastatin [Lipitor] 80 mg PO HS 08/02/20 01/27/22 History Gabapentin [Neurontin] 100 mg PO TID 07/18/21 01/27/22 History Escitalopram [Lexapro] 5 mg PO HS 08/18/21 01/27/22 History Aspirin [Adult Low Dose Aspirin EC] 81 mg PO DAILY 08/20/21 01/27/22 History Apixaban [Eliquis] 5 mg PO BID #0 08/22/21 01/27/22 Rx Furosemide [Lasix] 20 mg PO BID PRN 09/13/21 01/27/22 History Fluticasone/Umeclidin/Vilanter 1 puff INHALATION RT-DAILY PRN 11/01/21 01/27/22 History [Trelegy Ellipta 100-62.5-25] Letrozole [Femara] 2.5 mg PO DAILY 01/04/22 01/27/22 History lisinopriL [Zestril] 2.5 mg PO DAILY 01/04/22 01/27/22 History Acetaminophen Tab [Tylenol] 500 mg PO Q6HR PRN tab 01/15/22 01/27/22 Rx Albuterol Sulfate [Ventolin HFA] 1 puff INHALATION RT-Q4H PRN #1 01/15/22 01/27/22 Rx each Folic Acid 1 mg PO DAILY #30 tab 01/15/22 01/27/22 Rx Metoprolol Tartrate [Lopressor] 75 mg PO BID #180 tab 01/15/22 01/27/22 Rx Omeprazole [PriLOSEC] 20 mg PO AC-BID #60 cap 01/15/22 01/27/22 Rx ALPRAZolam [Xanax] 0.25 mg PO BID PRN 01/27/22 01/27/22 History predniSONE See Taper PO DIRECTED 01/27/22 01/27/22 History Allergies Allergy/AdvReac Type Severity Reaction Status Date / Time sumatriptan [From Imitrex] AdvReac Chest Pain Verified 01/04/22 22:47 Physical Exam Vitals: Vital Signs Temp Pulse Pulse Resp BP BP Pulse Ox 01/28/22 12:00 98 F 66 16 133/65 99 01/28/22 08:00 97.8 F 75 16 132/68 99 01/28/22 03:43 97.9 F 76 16 131/61 98 01/28/22 02:00 76 16 01/28/22 00:44 72 18 01/28/22 00:00 98.4 F 72 18 135/65 100 01/27/22 21:55 71 18 146/104 100 01/27/22 19:51 94 18 140/81 99 01/27/22 18:03 99.1 F 95 18 118/74 94 L Intake and Output 01/27/22 01/28/22 01/28/22 22:59 06:59 14:59 Intake Total 1150 720 Balance 1150 720 Intake: Intake, IV Titration 1150 600 Amount Sodium Chloride 0.9% 1, 150 550 000 ml @ 75 mls/hr IV . [id number] MARY ANNE Rx#:[id number] Sodium Chloride 0.9% 1, 1000 000 ml @ 999 mls/hr IV . Q1H1M STA Rx#:[id number] cefTRIAXone 1 gm In 50 Sodium Chloride 0.9% 50 ml @ 100 mls/hr IVPB Q24HR [facility] Rx#:[id number] Oral 120 Other: Voiding Method Indwelling Catheter Indwelling Catheter Weight 52.617 kg 52.617 kg 52.617 kg Results 01/29/22 08:16 01/29/22 08:16 Cardiac Enzymes 01/27/22 01/27/22 01/28/22 Range/Units 19:51 19:51 06:07 AST 33 28 (14-36) U/L Troponin I 0.108 H* (0.000-0.034) ng/mL 01/28/22 Range/Units 06:07 AST (14-36) U/L Troponin I 0.084 H* (0.000-0.034) ng/mL CBC 01/27/22 01/28/22 Range/Units 19:51 06:07 WBC 10.8 H 7.9 (3.8-10.6) k/uL RBC 3.16 L 2.92 L (3.80-5.40) m/uL Hgb 8.2 L 7.4 L (11.4-16.0) gm/dL Hct 26.6 L 24.7 L (34.0-46.0) % Plt Count 229 210 (150-450) k/uL Comprehensive Metabolic Panel 01/27/22 01/28/22 Range/Units 19:51 06:07 Sodium 138 138 (137-145) mmol/L Potassium 4.6 4.1 (3.5-5.1) mmol/L Chloride 110 H 111 H (98-107) mmol/L Carbon Dioxide 20 L 20 L (22-30) mmol/L BUN 26 H 25 H (7-17) mg/dL Creatinine 0.63 0.69 (0.52-1.04) mg/dL Glucose 96 73 L (74-99) mg/dL Calcium 8.6 8.1 L (8.4-10.2) mg/dL AST 33 28 (14-36) U/L ALT 19 20 (4-34) U/L Alkaline Phosphatase 108 129 H (38-126) U/L Total Protein 6.0 L 5.5 L (6.3-8.2) g/dL Albumin 3.1 L 2.9 L (3.5-5.0) g/dL Current Medications Generic Name Dose Route Start Last Admin Trade Name Freq PRN Reason Stop Dose Admin Acetaminophen 650 mg 01/27/22 22:39 Acetaminophen Tab 325 Mg Tab PO Q6HR PRN Mild Pain or Fever > 100.5 Hydrocodone Bitart/Acetaminophen 1 each 01/27/22 22:39 01/28/22 00:28 Hydrocodone/Apap 5-325mg 1 Each Tab PO 1 each Q4HR PRN Administration Moderate Pain Apixaban 5 mg 01/27/22 22:45 01/28/22 08:38 Apixaban 5 Mg Tab PO 5 mg BID MARY ANNE Administration Protocol Aspirin 81 mg 01/28/22 09:00 01/28/22 08:38 Aspirin 81 Mg PO 81 mg DAILY MARY ANNE Administration Atorvastatin Calcium 80 mg 01/27/22 22:45 01/27/22 22:57 Atorvastatin 80 Mg Tab PO 80 mg HS MARY ANNE Administration Budesonide/Formoterol Fumarate 2 puff 01/28/22 08:00 01/28/22 07:43 Symbicort 80-4.5 Mcg Inhaler INHALATION Not Given RT-BID MARY ANNE Escitalopram Oxalate 5 mg 01/27/22 22:45 01/27/22 22:58 Escitalopram 5 Mg Tab PO 5 mg HS MARY ANNE Administration Folic Acid 1 mg 01/28/22 09:00 01/28/22 08:37 Folic Acid 1 Mg Tab PO 1 mg DAILY MARY ANNE Administration Gabapentin 100 mg 01/27/22 22:45 01/28/22 08:37 Gabapentin 100 Mg Cap PO 100 mg TID MARY ANNE Administration Sodium Chloride 1,000 mls @ 75 mls/hr 01/27/22 22:45 01/28/22 00:30 Saline 0.9% IV 75 mls/hr .[id number] MARY ANNE Administration Ceftriaxone Sodium 1 gm/ 50 mls @ 100 mls/hr 01/28/22 09:00 01/28/22 08:37 Sodium Chloride IVPB 100 mls/hr Q24HR MARY ANNE Administration Protocol Ipratropium [place] 0.5 mg 01/27/22 22:42 Ipratropium 0.5 Mg/2.5 Ml Nebu INHALATION RT-QID PRN Wheezing Letrozole 2.5 mg 01/28/22 09:00 01/28/22 08:37 Letrozole 2.5 Mg Tab PO 2.5 mg DAILY MARY ANNE Administration Lisinopril 2.5 mg 01/28/22 09:00 01/28/22 08:37 Lisinopril 2.5 Mg Tab PO 2.5 mg DAILY MARY ANNE Administration Metoprolol Tartrate 75 mg 01/27/22 22:45 01/28/22 08:38 Metoprolol Tartrate 25 Mg Tab PO 75 mg BID MARY ANNE Administration Naloxone HCl 0.2 mg 01/27/22 22:39 Naloxone 0.4 Mg/Ml 1 Ml Vial IV Q2M PRN Opioid Reversal Ondansetron HCl 4 mg 01/27/22 22:39 Ondansetron 4 Mg/2 Ml Vial IVP Q8HR PRN Nausea And Vomiting Oxycodone/Acetaminophen 1 each 01/27/22 22:39 Oxycodone-Apap 5-325mg 1 Each Tab PO Q4HR PRN Severe Pain Pantoprazole Sodium 40 mg 01/28/22 07:30 01/28/22 06:27 Pantoprazole 40 Mg Tablet PO 40 mg [id number] MARY ANNE Administration Intake and Output 01/27/22 01/28/22 01/28/22 22:59 06:59 14:59 Intake Total 1150 720 Balance 1150 720 Intake: Intake, IV Titration 1150 600 Amount Sodium Chloride 0.9% 1, 150 550 000 ml @ 75 mls/hr IV . [id number] MARY ANNE Rx#:[id number] Sodium Chloride 0.9% 1, 1000 000 ml @ 999 mls/hr IV . Q1H1M STA Rx#:[id number] cefTRIAXone 1 gm In 50 Sodium Chloride 0.9% 50 ml @ 100 mls/hr IVPB Q24HR MARY ANNE Rx#:[id number] Oral 120 Other: Voiding Method Indwelling Catheter Indwelling Catheter Weight 52.617 kg 52.617 kg 52.617 kg Patient Weight 01/29/22 06:59 Weight 52.617 kg 01/28/22 06:07 01/28/22 06:07
[2022-01-29] MEDS: FERROUS SULFATE 325 MG TAB PO SCH ×2 (15:48→17:49)
[2022-01-29] MEDS: HYDROcodone/APAP 5-325MG 1 EACH TAB PO PRN ×2 (15:50→19:58)
[2022-01-29 18:31] LABS: % Iron Saturation 4.23 (12.00-45.00); Ferritin 33.7 ng/mL (10.0-291.0)
[2022-01-29] MEDS: ATORVASTATIN 80 MG TAB PO SCH (19:56)
[2022-01-29] MEDS: ESCITALOPRAM 5 MG TAB PO SCH (23:08)
[2022-01-30] MEDS: PANTOPRAZOLE 40 MG TABLET PO SCH (06:29)
[2022-01-30] MEDS: FERROUS SULFATE 325 MG TAB PO SCH ×2 (06:29→17:02)
[2022-01-30] MEDS: SYMBICORT 80-4.5 MCG INHALER INHALATION SCH ×2 (08:12→20:44)
[2022-01-30] MEDS: APIXABAN 5 MG TAB PO SCH ×2 (08:26→21:00)
[2022-01-30] MEDS: LETROZOLE 2.5 MG TAB PO SCH (08:26)
[2022-01-30] MEDS: GABAPENTIN 100 MG CAP PO SCH ×3 (08:26→21:00)
[2022-01-30] MEDS: FUROSEMIDE 10 MG/ML 2 ML VIAL IV SCH ×2 (08:26→21:01)
[2022-01-30] MEDS: SPIRONOLACTONE 25 MG TAB PO SCH (08:26)
[2022-01-30] MEDS: FOLIC ACID 1 MG TAB PO SCH (08:27)
[2022-01-30] MEDS: METOPROLOL TARTRATE 25 MG TAB PO SCH ×2 (08:27→21:02)
[2022-01-30] MEDS: HYDROcodone/APAP 5-325MG 1 EACH TAB PO PRN ×2 (08:38→21:00)
[2022-01-30 09:07] LABS: African American GFR (CKD) >90 (>60 ml/min/1.73 sqM); Anion Gap 6 mmol/L; Blood Urea Nitrogen 14 mg/dL (7-17); Calcium 7.9 mg/dL (8.4-10.2); Carbon Dioxide 24 mmol/L (22-30); Chloride 107 mmol/L (98-107); Glucose 86 mg/dL (74-99); Magnesium 1.7 mg/dL (1.6-2.3); Non-African American GFR(CKD) 90 (>60 ml/min/1.73 sqM); Potassium 3.8 mmol/L (3.5-5.1); Sodium 137 mmol/L (137-145)
[2022-01-30 09:49] LABS: Anisocytosis Slight; Basophils % (A) 0 %; Eosinophils # (A) 0.1 k/uL (0-0.7); Eosinophils % (A) 1 %; HCT 25.5 % (34.0-46.0); HGB 7.6 gm/dL (11.4-16.0); Hypochromasia Marked; Lymphocytes # (A) 1.3 k/uL (1.0-4.8); Lymphocytes % (A) 21 %; MCH 25.3 pg (25.0-35.0); MCHC 29.9 g/dL (31.0-37.0); MCV 84.6 fL (80.0-100.0); Monocytes # (A) 0.3 k/uL (0-1.0); Monocytes % (A) 4 %; Neutrophils # (A) 4.6 k/uL (1.3-7.7); Neutrophils % (A) 73 %; Platelet Count 202 k/uL (150-450); RBC 3.01 m/uL (3.80-5.40); RDW 18.7 % (11.5-15.5); WBC 6.3 k/uL (3.8-10.6)
[2022-01-30 10:07] LABS: Hypochromasia (M) Present; Ovalocytes Present; Poikilocytosis (M) Present; Polychromasia Present; Target Cells Present
--- NOTE | 2022-01-30 10:36 | CA ---
Transthoracic Echo Report Name: Sharmila Ayers Age: 76 Gender: F : 1945 Exam Date: 01/29/2022 13:50 Exam Location: [facility] [facility] Ht (in): 52 Wt (lb): 11 Ordering Physician: Seamus Jones DO ([email or web address]) Attending/Referring Phys: Cloth Tester Quality Sandy Escobedo RDCS Procedure CPT: Indications: re: elevated troponin Cardiac Hx: Technical Quality: Good Contrast 1: Total Dose (mL): Contrast 2: Total Dose (mL): MEASUREMENTS (Male / Female) Normal Values FINDINGS Left Ventricle Left ventricular ejection fraction is estimated at 40-45 %. Right Ventricle Right Atrium Left Atrium Mitral Valve Aortic Valve Tricuspid Valve Pulmonic Valve Pericardium Aorta CONCLUSIONS This is a limited echocardiogram. The echo is to assess ejection fraction The lead function is impaired with EF between 40-45% Previewed by: Dr. Aakash Adame MD (Electronically Signed) Final Date: 30 January 2022 10:35
--- NOTE | 2022-01-30 10:58 | P.PN ---
Subjective This is a pleasant 76 years old female with past medical history of Atrial Fibrillation, Coronary Artery Disease , Heart Failure, COPD, CVA/TIA, Hyp erlipidemia, Hypertension, , Osteoarthritis Sleep Apnea/CPAP/BIPAP, , Coronary Bypass/CABG, Heart Catheterization With Stent, Pt's due to Covid beginning of August 2021. History of multiple sclerosis Patient slipped from her wheelchair and was on the ground and could not get up for 2 days She denies any dizziness or syncope. She denies any chest pain or dyspnea or coughing currently. She has some mild discomfort earlier which is better now. She thinks she has weakness in both upper extremities although she has strong hand track repairer but she had difficulty pulling her up from the floor which usually she can do as she states. She denies any headache or numbness. She's been on [place] for about a month, before that she was able to walk little bit. She is also complaining of from a pain like a band around her lower back and the sites which is resolved now. No abdominal pain or vomiting or diarrhea. She is complaining of from dysuria Vitals are stable and patient is afebrile. Labs showing mild leukocytosis of 10.8, hemoglobin 8.2, platelet count 2129. BMP and liver enzymes are unremarkable Elevated troponin of 0.108 Urine analysis is suspicious for infection Chest x-ray: Showing mild heart failure improved from last time Lumbar x-ray: No fracture In the emergency room she received ceftriaxone, IV fluid and [place] 12/31/2021 Patient little tachypneic this morning while at bed. Repeat chest x-ray showing similar findings with hyperinflated chest and some pulmonary congestion. IV fluids were stopped, patient is already on Lasix by mouth 20 mg twice a day. We will add Aldactone 25 mg daily. Check labs tomorrow morning. Here patient also receiving treatment for acute UTI with ceftriaxone, her weakness is improving. Tadeo catheter draining yellow urine. Continue with home dose of Eliquis 5 mg and aspirin 81 mg. No active chest pain. 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 01/30/2022 Patient name is little bit tachypneic with bilateral leg swelling secondary to acute CHF exacerbation with ejection fraction 40-45%, patient kept on IV Lasix 20 mg twice daily. Also she received ceftriaxone for UTI with culture is growing gram-negative bacilli. She is afebrile. Rest of her toes looks stable. She is saturating 97% on 3 L oxygen nasal cannula. WBC is 6.3, hemoglobin 7.6. BMP is unremarkable. She is continued on home dose of Eliquis She has history of atrial fibrillation Objective - Vital Signs Vital signs: Vital Signs Temp 98.1 F 01/30/22 03:43 Pulse 70 01/30/22 03:43 Resp 17 01/30/22 03:43 BP 115/56 01/30/22 03:43 Pulse Ox 98 01/30/22 03:43 FiO2 Intake & Output 01/29/22 01/30/22 01/30/22 18:59 06:59 18:59 Intake Total 240 Output Total 1500 1400 Balance -1260 -1400 Weight 53.8 kg 29 kg Intake: Oral 240 Output: Urine 1500 1400 Uretheral (Tadeo) 700 Other: Voiding Method Indwelling Catheter Indwelling Catheter - Exam GENERAL: The patient is alert and oriented x3, not in any acute distress. Well developed, well nourished. HEENT: Pupils are round and equally reacting to light. EOMI. No scleral icterus. No conjunctival pallor. Normocephalic, atraumatic. No pharyngeal erythema. No thyromegaly. CARDIOVASCULAR: S1 and S2 present. No murmurs, rubs, or gallops. -PULMONARY: Chest is clear to auscultation, no wheezing or crackles. Mild basal crepitation ABDOMEN: Soft, nontender, nondistended, normoactive bowel sounds. No palpable organomegaly. MUSCULOSKELETAL: No joint swelling or deformity. EXTREMITIES: No cyanosis, clubbing, or pedal edema. NEUROLOGICAL: Gross neurological examination did not reveal any focal deficits. SKIN: No rashes. no petechiae. - Labs CBC & Chem 7: 01/30/22 08:11 01/30/22 08:11 Labs: Abnormal Lab Results - Last 24 Hours (Table) 01/29/22 01/30/22 01/30/22 Range/Units 08:16 08:11 08:11 RBC 3.01 L (3.80-5.40) m/uL Hgb 7.6 L (11.4-16.0) gm/dL Hct 25.5 L (34.0-46.0) % MCHC 29.9 L (31.0-37.0) g/dL RDW 18.7 H (11.5-15.5) % Calcium 7.9 L (8.4-10.2) mg/dL Iron 14 L (50-170) ug/dL % Saturation 4.23 L (12.00-45.00) Microbiology - Last 24 Hours (Table) 01/27/22 19:51 Urine Culture - Final Urine,Voided Escherichia coli 01/27/22 20:50 Blood Culture - Preliminary Blood No Growth after 48 hours Assessment and Plan Assessment: Acute urinary tract infection secondary to gram-negative bacilli, final results pending Acute on chronic CHF with ejection fraction 40-45% iron deficiency anemia. Rule out GI bleed Elevated troponin EKG showed normal sinus rhythm at [address]-T changes Fall on the floor with inability to stand up for 2 days History of multiple sclerosis, rule out acute flareup History of coronary artery disease status post CABG and stent Chronic atrial fibrillation on Eliquis COPD, no acute exacerbation Chronic heart failure History of CVA/TIA Hypertension Hyperlipidemia History of osteoarthritis History of sleep apnea Plan: This is a pleasant 76 years old female who presents with fall and inability to stand up for 2 days continue with ceftriaxone follow-up urine culture results Continue with IV Lasix Add Aldactone Continue with iron pills and consult surgery for iron deficiency anemia. Check occult blood in stool as she is on a blood thinner at home. Monitor hemoglobin closely. Continue with Protonix Consults cardiology. Continue with the liquids and aspirin. Continue with metoprolol and lisinopril. And statin Labs and medication were reviewed.. Continue same treatment. Continue with symptomatic treatment. Resume home medication. Monitor lytes and vitals. DVT and GI prophylaxis. Further recommendations as per clinical course of the p atient DVT prophylaxis Eliquis GI Prophylaxis: Ppi PT/OT: Pending Prognosis is guarded
--- NOTE | 2022-01-30 13:29 | P.PN ---
Subjective This is a pleasant 76-year-old female past medical history significant for paroxysmal atrial fibrillation on Eliquis, coronary artery disease s/p CABG 11/2020, multiple sclerosis, ischemic cardiomyopathy, history of LV thrombus, peripheral artery disease status post prior angioplasty, hypertension, dyslipidemia, former nicotine dependence, mitral regurgitation, obstructive sleep apnea, COPD, recent diagnosis of breast cancer status post lumpectomy 08/2021 and mastectomy 11/2021, recent admission to the hospital 01/04- 01/15/2022 for pneumonia, congestive heart failure, atrial fib with RVR and respiratory failure mucous plugging involving the left mainstem bronchus with complete collapse of the left lung, requiring intubation. She follows in the office with Dr. Adame. We have been asked to see in consultation for elevated troponin. Patient presents to the ER with complaints of fall. She apparently slipped out of her wheelchair and fell on the ground. She was on the floor for 2 days. She had symptoms of shortness of breath. 01/30/2022 Patient seen and examined at bedside, no acute distress. She endorses her breathing and shortness of breath is the same. She denies any chest pain. 2.9L urine output over the past 24 hours.kidney function is stable. Limited Echo revealed EF 40-45% (previous echo last prabhakar hEF 45-50%) She is currently being diuresed with IV Lasix 20mg BID PHYSICAL EXAMINATION Vitals reviewed CONSTITUTIONAL: No apparent distress. HEENT: Head is normocephalic. Pupils are equal, round. Sclerae anicteric. Mucous membranes of the mouth are moist. No JVD. CHEST EXAMINATION: Lungs are crackles in the bilateral bases to auscultation. No chest wall tenderness is noted on palpation or with deep breathing. HEART EXAMINATION: Regular rate and rhythm. S1, S2 heard. Systolic murmur heard at base and apex, No gallops or rub. ABDOMEN: Soft, nontender. Positive bowel sounds. EXTREMITIES: no lower extremity edema and no calf tenderness. Bilateral feet are cool, difficult to obtain pedal pulse NEUROLOGIC EXAMINATION: Patient is awake, alert and oriented x3. ASSESSMENT Shortness of breath Elevated troponin, chronic elevated troponin, ACS unlikely. Mechanical fall at home, on the floor for 2 days Urinary tract infection Paroxysmal atrial fibrillation on Eliquis Coronary artery disease s/p CABG 11/2020 Acute on chronic heart failure with preserved ejection fraction, 40-45% History of Multiple sclerosis Ischemic cardiomyopathy History of LV thrombus Peripheral artery disease status post prior angioplasty Hypertension Dyslipidemia Former nicotine dependence Mitral regurgitation, mild to moderate Obstructive sleep apnea COPD Breast cancer status post lumpectomy 08/2021 and mastectomy 11/2021 Recent admission to the hospital 01/04-01/15/2022 for pneumonia, atrial fib with RVR and respiratory failure mucous plugging involving the left mainstem bronchus with complete collapse of the left lung, requiring intubation PLAN IV lasix 20mg BID Monitor I/Os, daily weights, renal function and electrolytes Monitor Hemoglobin Patient had iron infusion scheduled as an outpatient as Arturo recommend infusion, will defer to primary Continue atorvastatin, Eliquis, lisinopril 2.5 mg daily, metoprolol Further recommendations based on clinical course Nurse practitioner note has been reviewed by physician. Signing provider agrees with the documented findings, assessment, and plan of care. Objective - Vital Signs Vital signs: Vital Signs Temp 98.1 F 01/30/22 03:43 Pulse 61 01/30/22 12:00 Resp 16 01/30/22 12:00 BP 121/64 01/30/22 12:00 Pulse Ox 100 01/30/22 12:00 FiO2 Intake & Output 01/29/22 01/30/22 01/30/22 18:59 06:59 18:59 Intake Total 240 118 Output Total 1500 1400 Balance -1260 -1400 118 Weight 53.8 kg 29 kg Intake: Oral 240 118 Output: Urine 1500 1400 Uretheral (Tadeo) 700 Other: Voiding Method Indwelling Catheter Indwelling Catheter Indwelling Catheter - Labs CBC & Chem 7: 01/30/22 08:11 01/30/22 08:11 Labs: Abnormal Lab Results - Last 24 Hours (Table) 01/29/22 01/30/22 01/30/22 Range/Units 08:16 08:11 08:11 RBC 3.01 L (3.80-5.40) m/uL Hgb 7.6 L (11.4-16.0) gm/dL Hct 25.5 L (34.0-46.0) % MCHC 29.9 L (31.0-37.0) g/dL RDW 18.7 H (11.5-15.5) % Calcium 7.9 L (8.4-10.2) mg/dL Iron 14 L (50-170) ug/dL % Saturation 4.23 L (12.00-45.00) Microbiology - Last 24 Hours (Table) 01/27/22 19:51 Urine Culture - Final Urine,Voided Escherichia coli 01/27/22 20:50 Blood Culture - Preliminary Blood No Growth after 48 hours
--- NOTE | 2022-01-30 15:17 | P.GSCN ---
History of Present Illness Consult date: 01/30/22 History of present illness: CHIEF COMPLAINT: Fall Reason for consult anemia, on Eliquis HISTORY OF PRESENT ILLNESS: This is a 76-year-old female presented to the emergency department after a fall. She had slipped out of her chair and landed on the ground. Apparently she was on the ground for about 2-4 days. She had a recent hospitalization from January 04 through January 15 for pneumonia and respiratory failure requiring to be intubated. She has a known history of br east cancer status post mastectomy on November 2021. Patient follows with Dr. Baca at [facility]. Patient denies being on any chemotherapy. She was found to have a UTI and CHF exacerbation during this hospitalization. Patient follow- up with cardiology. Patient has known history of atrial fibrillation and on Eliquis. Patient has been anemic. She reports that her oncologist was going to start iron infusions at [facility]. Patient reports that the just had not is set up a official date. Hemoglobin on admission 8.2. Hemoglobin did drop to 7.4 and is now at 7.6 today. Patient's iron level low at 14. She denies any blood in his stools or black stools. She's never had a colonoscopy or EGD. She denies any NSAID use. Denies any abdominal pain. Denies any nausea or vomiting. Patient also reporting that she does not want to have EGD or colonoscopy. Surgical service consulted in regards to patient's anemia. Patient denies any bruising from her fall. Patient also reports poor oral intake. Patient does have shortness of breath. PAST MEDICAL HISTORY: Multiple sclerosis, Atrial Fibrillation, Coronary Artery Disease (CAD), Cancer, Heart Failure, COPD, CVA, Hyperlipidemia, Hypertension, Mitral Valve Prolapse (MVP), Neurologic Disorder, Osteoarthritis (OA), Pneumonia, Skin Disorder, Sleep Apnea/CPAP/BIPAP, Vascular Disorder coronary disease with CABG and cardiac stent PAST SURGICAL HISTORY: See list. MEDICATIONS: See list. ALLERGIES: See list. SOCIAL HISTORY: No illicit drug use. REVIEW OF SYSTEMS: CONSTITUTIONAL: Denies fever or chills. HEENT: Denies blurred vision, vision changes, or eye pain. Denies hemoptysis CARDIOVASCULAR: Denies chest pain or pressure. RESPIRATORY: shortness of breath. GASTROINTESTINAL: See HPI for pertinent findings HEMATOLOGIC: Denies bleeding disorders. GENITOURINARY: Denies any blood in urine or increased urinary frequency. SKIN: Denies pruitis. Denies rash. PHYSICAL EXAM: VITAL SIGNS: Reviewed GENERAL: Well-developed in no acute distress. HEENT: No sclera icterus. Extraocular movements grossly intact. Moist buccal mucosa. Head is atraumatic, normocephalic. No nasal drainage. ABDOMEN: Soft. Nondistended. nontender NEUROLOGIC: Alert and oriented. Cranial nerves II through XII grossly intact. skin exam no evidence of bruising LABORATORY DATA: WBC 6.3 hemoglobin 7.6 platelets 202 sodium 137 potassium 3.8 creatinine 0.61 Albumin 2.9 IMAGING: Echo EF of 40-45% ASSESSMENT: 1. Microcytic Anemia with no active signs of bleeding 2. Iron deficiency anemia 3. History of atrial fibrillation anticoagulated with Eliquis 4. Recent pneumonia and hospitalization requiring to be intubated 5. History of breast cancer status post mastectomy PLAN: -Continue iron replacement -Continue monitor hemoglobin -Continue monitor for any signs or symptoms of bleeding -check stool for occult blood -Continue supportive care -Patient refuses to have EGD or colonoscopy Thank you for this consultation Physician [employer] note has been reviewed by physician. Signing provider agrees with the documented findings, assessment, and plan of care. Past Medical History Past Medical History: Atrial Fibrillation, Coronary Artery Disease (CAD), Cancer, Heart Failure, COPD, CVA/TIA, Hyperlipidemia, Hypertension, Mitral Valve Prolapse (MVP), Neurologic Disorder, Osteoarthritis (OA), Pneumonia, Skin Disorder, Sleep Apnea/CPAP/BIPAP, Vascular Disorder Additional Past Medical History / Comment(s): "Upper back non-cancerous mass removed 08/17/21 at [facility].". Multiple Sclerosis. PAD/chronic wounds left foot/lower leg, peripheral neuropathy. CVA Jul/Aug 2021. History of Any Multi-Drug Resistant Organisms: None Reported Past Surgical History: Appendectomy, Breast Surgery, Coronary Bypass/CABG, Heart Catheterization With Stent, Orthopedic Surgery, Tonsillectomy Additional Past Surgical History / Comment(s): 08/17/21 surgery at [facility] spital-cervical or upper back for mass, 11/2020 CABG 4 vessel, PCI/stents in , bilateral iliac arthrectomy/stents, left foot wound debridements, bronchoscopy/lavage, bilateral breast biopsies, D&C, lumpectomy right breast 08/2021. Right mastectomy (11/26/21) Past Anesthesia/Blood Transfusion Reactions: Motion Sickness Additional Past Anesthesia/Blood Transfusion Reaction / Comm: No hx blood transfusion. Date of Last Stent Placement:: 2008 Past Psychological History: Anxiety, Depression Additional Psychological History / Comment(s): Pt's due to Covid beginning of August 2021. Smoking Status: Former smoker Past Alcohol Use History: Rare Additional Past Alcohol Use History / Comment(s): Pt started smoking in 1960 and quit May 2020. Past Drug Use History: None Reported Additional Drug Use History / Comment(s): CBD lotion. - Past Family History Father Family Medical History: No Reported History Mother Family Medical History: Cancer Additional Family Medical History / Comment(s): Breast and brain cancer. Medications and Allergies Home Medications Medication Instructions Recorded Confirmed Type Atorvastatin [Lipitor] 80 mg PO HS 08/02/20 01/27/22 History Gabapentin [Neurontin] 100 mg PO TID 07/18/21 01/27/22 History Escitalopram [Lexapro] 5 mg PO HS 08/18/21 01/27/22 History Aspirin [Adult Low Dose Aspirin EC] 81 mg PO DAILY 08/20/21 01/27/22 History Apixaban [Eliquis] 5 mg PO BID #0 08/22/21 01/27/22 Rx Furosemide [Lasix] 20 mg PO BID PRN 09/13/21 01/27/22 History Fluticasone/Umeclidin/Vilanter 1 puff INHALATION RT-DAILY PRN 11/01/21 01/27/22 History [Trelegy Ellipta 100-62.5-25] Letrozole [Femara] 2.5 mg PO DAILY 01/04/22 01/27/22 History lisinopriL [Zestril] 2.5 mg PO DAILY 01/04/22 01/27/22 History Acetaminophen Tab [Tylenol] 500 mg PO Q6HR PRN tab 01/15/22 01/27/22 Rx Albuterol Sulfate [Ventolin HFA] 1 puff INHALATION RT-Q4H PRN #1 01/15/22 01/27/22 Rx each Folic Acid 1 mg PO DAILY #30 tab 01/15/22 01/27/22 Rx Metoprolol Tartrate [Lopressor] 75 mg PO BID #180 tab 01/15/22 01/27/22 Rx Omeprazole [PriLOSEC] 20 mg PO AC-BID #60 cap 01/15/22 01/27/22 Rx ALPRAZolam [Xanax] 0.25 mg PO BID PRN 01/27/22 01/27/22 History predniSONE See Taper PO DIRECTED 01/27/22 01/27/22 History Allergies Allergy/AdvReac Type Severity Reaction Status Date / Time sumatriptan [From Imitrex] AdvReac Chest Pain Verified 01/04/22 22:47 Surgical - Exam Vital Signs Temp Pulse Resp BP Pulse Ox 99.1 F 95 18 118/74 94 L 01/27/22 18:03 01/27/22 18:03 01/27/22 18:03 01/27/22 18:03 01/27/22 18:03 Results - Labs 01/30/22 08:11 01/30/22 08:11 Abnormal Lab Results - Last 24 Hours (Table) 01/29/22 01/30/22 01/30/22 Range/Units 08:16 08:11 08:11 RBC 3.01 L (3.80-5.40) m/uL Hgb 7.6 L (11.4-16.0) gm/dL Hct 25.5 L (34.0-46.0) % MCHC 29.9 L (31.0-37.0) g/dL RDW 18.7 H (11.5-15.5) % Calcium 7.9 L (8.4-10.2) mg/dL Iron 14 L (50-170) ug/dL % Saturation 4.23 L (12.00-45.00) Microbiology - Last 24 Hours (Table) 01/27/22 19:51 Urine Culture - Final Urine,Voided Escherichia coli 01/27/22 20:50 Blood Culture - Preliminary Blood No Growth after 48 hours Diabetes panel 01/30/22 Range/Units 08:11 Sodium 137 (137-145) mmol/L Potassium 3.8 (3.5-5.1) mmol/L Chloride 107 (98-107) mmol/L Carbon Dioxide 24 (22-30) mmol/L BUN 14 (7-17) mg/dL Creatinine 0.61 (0.52-1.04) mg/dL Glucose 86 (74-99) mg/dL Calcium 7.9 L (8.4-10.2) mg/dL Calcium panel 01/30/22 Range/Units 08:11 Calcium 7.9 L (8.4-10.2) mg/dL Pituitary panel 01/30/22 Range/Units 08:11 Sodium 137 (137-145) mmol/L Potassium 3.8 (3.5-5.1) mmol/L Chloride 107 (98-107) mmol/L Carbon Dioxide 24 (22-30) mmol/L BUN 14 (7-17) mg/dL Creatinine 0.61 (0.52-1.04) mg/dL Glucose 86 (74-99) mg/dL Calcium 7.9 L (8.4-10.2) mg/dL Adrenal panel 01/30/22 Range/Units 08:11 Sodium 137 (137-145) mmol/L Potassium 3.8 (3.5-5.1) mmol/L Chloride 107 (98-107) mmol/L Carbon Dioxide 24 (22-30) mmol/L BUN 14 (7-17) mg/dL Creatinine 0.61 (0.52-1.04) mg/dL Glucose 86 (74-99) mg/dL Calcium 7.9 L (8.4-10.2) mg/dL
[2022-01-30] MEDS: ATORVASTATIN 80 MG TAB PO SCH (21:00)
[2022-01-30] MEDS: ESCITALOPRAM 5 MG TAB PO SCH (21:01)
[2022-01-31] MEDS: FERROUS SULFATE 325 MG TAB PO SCH ×2 (06:22→16:46)
[2022-01-31] MEDS: PANTOPRAZOLE 40 MG TABLET PO SCH (06:22)
[2022-01-31] MEDS: SYMBICORT 80-4.5 MCG INHALER INHALATION SCH ×3 (07:06→19:14)
[2022-01-31] MEDS: APIXABAN 5 MG TAB PO SCH (08:29)
[2022-01-31] MEDS: FOLIC ACID 1 MG TAB PO SCH (08:30)
[2022-01-31] MEDS: LETROZOLE 2.5 MG TAB PO SCH (08:31)
[2022-01-31] MEDS: METOPROLOL TARTRATE 25 MG TAB PO SCH (08:32)
[2022-01-31] MEDS: SPIRONOLACTONE 25 MG TAB PO SCH (08:32)
[2022-01-31] MEDS: GABAPENTIN 100 MG CAP PO SCH ×2 (08:37→16:46)
[2022-01-31] MEDS: FUROSEMIDE 10 MG/ML 2 ML VIAL IV SCH (09:03)
[2022-01-31 09:04] LABS: Anisocytosis Slight; Basophils % (A) 0 %; Eosinophils # (A) 0.1 k/uL (0-0.7); Eosinophils % (A) 2 %; HGB 8.3 gm/dL (11.4-16.0); Hypochromasia Marked; Lymphocytes # (A) 1.5 k/uL (1.0-4.8); Lymphocytes % (A) 23 %; MCH 25.3 pg (25.0-35.0); MCHC 29.6 g/dL (31.0-37.0); MCV 85.7 fL (80.0-100.0); Mean Platelet Volume 9.5; Monocytes # (A) 0.3 k/uL (0-1.0); Monocytes % (A) 4 %; Neutrophils # (A) 4.4 k/uL (1.3-7.7); Neutrophils % (A) 69 %; Platelet Count 244 k/uL (150-450); Poikilocytosis Slight; RBC 3.27 m/uL (3.80-5.40); RDW 19.1 % (11.5-15.5); WBC 6.4 k/uL (3.8-10.6)
[2022-01-31] MEDS: HYDROcodone/APAP 5-325MG 1 EACH TAB PO PRN ×2 (09:04→16:46)
[2022-01-31 09:45] LABS: African American GFR (CKD) >90 (>60 ml/min/1.73 sqM); Anion Gap 6 mmol/L; Blood Urea Nitrogen 11 mg/dL (7-17); Calcium 8.1 mg/dL (8.4-10.2); Carbon Dioxide 28 mmol/L (22-30); Chloride 104 mmol/L (98-107); Glucose 102 mg/dL (74-99); Magnesium 1.7 mg/dL (1.6-2.3); Non-African American GFR(CKD) >90 (>60 ml/min/1.73 sqM); Potassium 3.8 mmol/L (3.5-5.1); Sodium 138 mmol/L (137-145)
--- NOTE | 2022-01-31 12:40 | P.PN ---
Subjective Progress Note Date: 01/31/22 CHIEF COMPLAINT: Anemia HISTORY OF PRESENT ILLNESS: Surgical service following in regards to patient's anemia. Patient has refused endoscopies. Patient denies any abdominal pain. Denies any blood in her stools. She remains on eliquis for afib. Hemoglobin has gone up from 7.6-8.3. She is receiving oral iron. She is tolerating diet. Patient seen and examined with Dr. murphy PHYSICAL EXAM: VITAL SIGNS: Reviewed. GENERAL: Well-developed in no acute distress. HEENT: No sclera icterus. Extraocular movements grossly intact. Moist buccal mucosa. Head is atraumatic, normocephalic. ABDOMEN: Soft. Nondistended. Nontender. NEUROLOGIC: Alert and oriented. Cranial nerves II through XII grossly intact. ASSESSMENT: 1. Microcytic Anemia with no active signs of bleeding 2. Iron deficiency anemia 3. History of atrial fibrillation anticoagulated with Eliquis 4. Recent pneumonia and hospitalization requiring to be intubated 5. History of breast cancer status post mastectomy PLAN: -Surgical service remains on standby. Patient refusing endoscopies. -Continue supportive care -Continue iron supplement -Continue to monitor hemoglobin -Continue to monitor signs or symptoms of bleeding -Continue PPI Physician [employer] note has been reviewed by physician. Signing provider agrees with the documented findings, assessment, and plan of care. Objective - Vital Signs Vital signs: Vital Signs Temp 98.0 F 01/31/22 11:23 Pulse 100 01/31/22 11:23 Resp 22 01/31/22 11:23 BP 122/57 01/31/22 11:23 Pulse Ox 100 01/31/22 11:23 FiO2 Intake & Output 01/30/22 01/31/22 01/31/22 18:59 06:59 18:59 Intake Total 358 240 Balance 358 240 Weight 60.5 kg Intake: Oral 358 240 Other: Voiding Method Indwelling Catheter Indwelling Catheter Indwelling Catheter - Labs CBC & Chem 7: 01/31/22 07:25 01/31/22 07:25 Labs: Abnormal Lab Results - Last 24 Hours (Table) 01/31/22 01/31/22 Range/Units 07:25 07:25 RBC 3.27 L (3.80-5.40) m/uL Hgb 8.3 L (11.4-16.0) gm/dL Hct 28.0 L (34.0-46.0) % MCHC 29.6 L (31.0-37.0) g/dL RDW 19.1 H (11.5-15.5) % Glucose 102 H (74-99) mg/dL Calcium 8.1 L (8.4-10.2) mg/dL Microbiology - Last 24 Hours (Table) 01/27/22 20:50 Blood Culture - Preliminary Blood No Growth after 72 hours 01/27/22 19:51 Urine Culture - Final Urine,Voided Escherichia coli
[2022-01-31 12:48] VITALS: BMI 27.8
--- NOTE | 2022-01-31 13:06 | P.PN ---
Subjective This is a pleasant 76-year-old female past medical history significant for paroxysmal atrial fibrillation on Eliquis, coronary artery disease s/p CABG 11/2020, multiple sclerosis, ischemic cardiomyopathy, history of LV thrombus, peripheral artery disease status post prior angioplasty, hypertension, dyslipidemia, former nicotine dependence, mitral regurgitation, obstructive sleep apnea, COPD, recent diagnosis of breast cancer status post lumpectomy 08/2021 and mastectomy 11/2021, recent admission to the hospital 01/04- 01/15/2022 for pneumonia, congestive heart failure, atrial fib with RVR and respiratory failure mucous plugging involving the left mainstem bronchus with complete collapse of the left lung, requiring intubation. She follows in the office with Dr. Adame. We have been asked to see in consultation for elevated troponin. Patient presents to the ER with complaints of fall. She apparently slipped out of her wheelchair and fell on the ground. She was on the floor for 2 days. She had symptoms of shortness of breath. 01/31/2022 Patient seen and examined at bedside, no acute distress. She endorses her breathing and shortness of breath is the same, however, appears improved from yesterday. She denies any chest pain. She states she has had increased urine output. Sodium 138, potassium 3.8, BUN 11, serum creatinine 0.5. Limited Echo revealed EF 40-45% (previous echo last prabhakar hEF 45-50%) She is currently being diuresed with IV Lasix 20mg BID PHYSICAL EXAMINATION Vitals reviewed CONSTITUTIONAL: No apparent distress. HEENT: Head is normocephalic. Pupils are equal, round. Sclerae anicteric. Mucous membranes of the mouth are moist. No JVD. CHEST EXAMINATION: Lungs are crackles in the left base, diminished in the right, clear to auscultation other lung howard. No chest wall tenderness is noted on palpation or with deep breathing. HEART EXAMINATION: Regular rate and rhythm. S1, S2 heard. Systolic murmur heard at base and apex, No gallops or rub. ABDOMEN: Soft, nontender. Positive bowel sounds. EXTREMITIES: no lower extremity edema and no calf tenderness. Bilateral feet are cool, difficult to obtain pedal pulse NEUROLOGIC EXAMINATION: Patient is awake, alert and oriented x3. ASSESSMENT Shortness of breath Elevated troponin, chronic elevated troponin, ACS unlikely. Mechanical fall at home, on the floor for 2 days Urinary tract infection Paroxysmal atrial fibrillation on Eliquis Coronary artery disease s/p CABG 11/2020 Acute on chronic heart failure with preserved ejection fraction, 40-45% History of Multiple sclerosis Ischemic cardiomyopathy History of LV thrombus Peripheral artery disease status post prior angioplasty Hypertension Dyslipidemia Former nicotine dependence Mitral regurgitation, mild to moderate Obstructive sleep apnea COPD Breast cancer status post lumpectomy 08/2021 and mastectomy 11/2021 Recent admission to the hospital 01/04-01/15/2022 for pneumonia, atrial fib with RVR and respiratory failure mucous plugging involving the left mainstem bronchus with complete collapse of the left lung, requiring intubation PLAN From a cardiology perspective, patient is stable. We will transition to PO Lasix. No further changes from a cardiology perspective Patient had iron infusion scheduled as an outpatient as Arturo recommend infusion, will defer to primary Stop home Aspirin Continue atorvastatin, Eliquis, lisinopril 2.5 mg daily, metoprolol We'll follow the patient as needed. Please reconsult if needed. Patient to follow up outpatient with Dr. Adame Nurse practitioner note has been reviewed by physician. Signing provider agrees with the documented findings, assessment, and plan of care. Objective - Vital Signs Vital signs: Vital Signs Temp 98.1 F 01/31/22 12:00 Pulse 62 01/31/22 12:00 Resp 16 01/31/22 12:00 BP 139/66 01/31/22 12:00 Pulse Ox 100 01/31/22 12:00 FiO2 Intake & Output 01/30/22 01/31/22 01/31/22 18:59 06:59 18:59 Intake Total 358 240 Output Total 825 Balance 358 -585 Weight 60.5 kg 60.5 kg Intake: Oral 358 240 Output: Urine 825 Uretheral (Tadeo) 825 Other: Voiding Method Indwelling Catheter Indwelling Catheter Indwelling Catheter - Labs CBC & Chem 7: 01/31/22 07:25 01/31/22 07:25 Labs: Abnormal Lab Results - Last 24 Hours (Table) 01/31/22 01/31/22 Range/Units 07:25 07:25 RBC 3.27 L (3.80-5.40) m/uL Hgb 8.3 L (11.4-16.0) gm/dL Hct 28.0 L (34.0-46.0) % MCHC 29.6 L (31.0-37.0) g/dL RDW 19.1 H (11.5-15.5) % Glucose 102 H (74-99) mg/dL Calcium 8.1 L (8.4-10.2) mg/dL Microbiology - Last 24 Hours (Table) 01/27/22 20:50 Blood Culture - Preliminary Blood No Growth after 72 hours
[2022-01-31 17:54] VITALS: BP 148/67; PULSE 52; RESP 15; TEMP 97.6
--- NOTE | 2022-01-31 18:56 | P.DS ---
Providers Date of admission: 01/27/22 22:56 Expected date of discharge: 01/31/22 Attending physician: Quintin Elizondo Consults: 01/28/22 09:35 Consult Physician Urgent Consulting Provider: Mitchell Marshall Consult Reason/Comments: high Troponin Do you want consulting provider notified?: Yes 01/30/22 10:57 Consult Physician Urgent Consulting Provider: Curtis Rudolph Consult Reason/Comments: anemia while on eliquis Do you want consulting provider notified?: Yes Primary care physician: [facility] Course: 76 years old female with past medical history of Atrial Fibrillation, Coronary Artery Disease , Heart Failure, COPD, CVA/TIA, Hyperlipidemia, Hypertension, , Osteoarthritis Sleep Apnea/CPAP/BIPAP, , Coronary Bypass/CABG, Heart Catheterization With Stent, Pt's due to Covid beginning of August 2021. History of multiple sclerosis Patient slipped from her wheelchair and was on the ground and could not get up for 2 days She denies any dizziness or syncope. She denies any chest pain or dyspnea or coughing currently. She has some mild discomfort earlier which is better now. She thinks she has weakness in both upper extremities although she has strong hand roller repairer but she had difficulty pulling her up from the floor which usually she can do as she states. She denies any headache or numbness. She's been on Zainab for about a month, before that she was able to walk little bit. She is also complaining of from a pain like a band around her lower back and the sites which is resolved now. No abdominal pain or vomiting or diarrhea. She is complaining of from dysuria Vitals are stable and patient is afebrile. Labs showing mild leukocytosis of 10.8, hemoglobin 8.2, platelet count 2129. BMP and liver enzymes are unremarkable Elevated troponin of 0.108 Urine analysis is suspicious for infection Chest x-ray: Showing mild heart failure improved from last time Lumbar x-ray: No fracture In the emergency room she received ceftriaxone, IV fluid and Sedley Limited 2D echocardiogram IV lasix 20mg BID Monitor I/Os, daily weights, renal function and electrolytes Monitor Hemoglobin Continue atorvastatin, Eliquis, lisinopril 2.5 mg daily, metoprolol ---We will transition to PO Lasix. No further changes from a cardiology perspective Patient had iron infusion scheduled as an outpatient as Karmanos recommend i nfusion, will defer to primary Stop home Aspirin Continue atorvastatin, Eliquis, lisinopril 2.5 mg daily, metoprolol We'll follow the patient as needed. Please reconsult if needed. Patient to follow up outpatient with Dr. Adame 12/31/2021 Patient little tachypneic this morning while at bed. Repeat chest x-ray showing similar findings with hyperinflated chest and some pulmonary congestion. IV fluids were stopped, patient is already on Lasix by mouth 20 mg twice a day. We will add Aldactone 25 mg daily. Check labs tomorrow morning. Here patient also receiving treatment for acute UTI with ceftriaxone, her weakness is improving. Tadeo catheter draining yellow urine. Continue with home dose of Eliquis 5 mg and aspirin 81 mg. No active chest pain. 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 01/30/2022 Patient name is little bit tachypneic with bilateral leg swelling secondary to acute CHF exacerbation with ejection fraction 40-45%, patient kept on IV Lasix 20 mg twice daily. Also she received ceftriaxone for UTI with culture is growing gram-negative [place]. She is afebrile. Rest of her toes looks stable. She is saturating 97% on 3 L oxygen nasal cannula. WBC is 6.3, hemoglobin 7.6. BMP is unremarkable. She is continued on home dose of Eliquis She has history of atrial fibrillation Plan - Discharge Summary New Discharge Prescriptions: New Spironolactone [Aldactone] 25 mg PO DAILY 30 Days #30 tab Cephalexin [Keflex] 500 mg PO Q8HR 7 Days #21 cap Continue Atorvastatin [Lipitor] 80 mg PO HS Escitalopram [Lexapro] 5 mg PO HS Apixaban [Eliquis] 5 mg PO BID #0 Furosemide [Lasix] 20 mg PO BID PRN PRN Reason: Edema Fluticasone/Umeclidin/Vilanter [Trelegy Ellipta 100-62.5-25] 1 puff INHALATION RT-DAILY PRN PRN Reason: Wheezing Letrozole [Femara] 2.5 mg PO DAILY Acetaminophen Tab [Tylenol] 500 mg PO Q6HR PRN tab PRN Reason: Fever And/ Or Pain Albuterol Sulfate [Ventolin HFA] 1 puff INHALATION RT-Q4H PRN #1 each PRN Reason: Shortness Of Breath ALPRAZolam [Xanax] 0.25 mg PO BID PRN PRN Reason: Anxiety predniSONE See Taper PO DIRECTED Gabapentin [Neurontin] 100 mg PO TID lisinopriL [Zestril] 2.5 mg PO DAILY Folic Acid 1 mg PO DAILY #30 tab Metoprolol Tartrate [Lopressor] 75 mg PO BID #180 tab Omeprazole [PriLOSEC] 20 mg PO AC-BID #60 cap Discontinued Aspirin [Adult Low Dose Aspirin EC] 81 mg PO DAILY Discharge Medication List Atorvastatin [Lipitor] 80 mg PO HS 08/02/20 [History] Gabapentin [Neurontin] 100 mg PO TID 07/18/21 [History] Escitalopram [Lexapro] 5 mg PO HS 08/18/21 [History] Apixaban [Eliquis] 5 mg PO BID #0 08/22/21 [Rx] Furosemide [Lasix] 20 mg PO BID PRN 09/13/21 [History] Fluticasone/Umeclidin/Vilanter [Trelegy Ellipta 100-62.5-25] 1 puff INHALATION RT-DAILY PRN 11/01/21 [History] Letrozole [Femara] 2.5 mg PO DAILY 01/04/22 [History] lisinopriL [Zestril] 2.5 mg PO DAILY 01/04/22 [History] Acetaminophen Tab [Tylenol] 500 mg PO Q6HR PRN tab 01/15/22 [Rx] Albuterol Sulfate [Ventolin HFA] 1 puff INHALATION RT-Q4H PRN #1 each 01/15/22 [Rx] Folic Acid 1 mg PO DAILY #30 tab 01/15/22 [Rx] Metoprolol Tartrate [Lopressor] 75 mg PO BID #180 tab 01/15/22 [Rx] Omeprazole [PriLOSEC] 20 mg PO AC-BID #60 cap 01/15/22 [Rx] ALPRAZolam [Xanax] 0.25 mg PO BID PRN 01/27/22 [History] predniSONE See Taper PO DIRECTED 01/27/22 [History] Cephalexin [Keflex] 500 mg PO Q8HR 7 Days #21 cap 01/31/22 [Rx] Spironolactone [Aldactone] 25 mg PO DAILY 30 Days #30 tab 01/31/22 [Rx] Follow up Appointment(s)/Referral(s): Aakash Adame MD [STAFF PHYSICIAN] - 2 Weeks [facility], [NON-STAFF] - ySdnie Reynolds MD [Primary Care Provider] - 1-2 days Patient Instructions/Handouts: Kidney Infection (DC) Discharge Disposition: HOME WITH HOME HEALTH SERVICES
[2022-02-01] MEDS ORDERED: FUROSEMIDE 20 MG TAB PO SCH (09:00)
== END 2022-01-31 19:38 | disposition home health service (06) | DRG 689 ==
LOC: EC 17:55 → 3SCARD 22:38
PROVIDERS: ADMIT Hospitalist; ATTEND Hospitalist
DX: N39.0 Urinary tract infection, site not specified (principal); I50.33 Acute on chronic diastolic (congestive) heart failure; C50.911 Malignant neoplasm of unspecified site of right female breast; Z99.81 Dependence on supplemental oxygen; I48.0 Paroxysmal atrial fibrillation; E78.5 Hyperlipidemia, unspecified; D50.9 Iron deficiency anemia, unspecified; B96.20 Unspecified Escherichia coli [E. coli] as the cause of diseases classified elsewhere; E86.0 Dehydration; I11.0 Hypertensive heart disease with heart failure; G35 Multiple sclerosis; F32.A Depression, unspecified; G62.9 Polyneuropathy, unspecified; J44.9 Chronic obstructive pulmonary disease, unspecified; I73.9 Peripheral vascular disease, unspecified; G47.33 Obstructive sleep apnea (adult) (pediatric); F41.9 Anxiety disorder, unspecified; I34.0 Nonrheumatic mitral (valve) insufficiency; I34.1 Nonrheumatic mitral (valve) prolapse; I25.5 Ischemic cardiomyopathy; M54.50 Low back pain, unspecified; I25.10 Atherosclerotic heart disease of native coronary artery without angina pectoris; M19.90 Unspecified osteoarthritis, unspecified site; Z79.01 Long term (current) use of anticoagulants; Z79.51 Long term (current) use of inhaled steroids; Z79.811 Long term (current) use of aromatase inhibitors; Z79.899 Other long term (current) drug therapy; Z87.891 Personal history of nicotine dependence; Z95.1 Presence of aortocoronary bypass graft; Z95.5 Presence of coronary angioplasty implant and graft; Z95.820 Peripheral vascular angioplasty status with implants and grafts; Z60.2 Problems related to living alone; Z88.8 Allergy status to other drugs, medicaments and biological substances; W05.0XXA Fall from non-moving wheelchair, initial encounter; Y92.009 Unspecified place in unspecified non-institutional (private) residence as the place of occurrence of the external cause
CPT/HCPCS: 36415; 51702; 71046; 72100; 76770; 80048; 80053; 81001; 82550; 82728; 82803; 83540; 83550; 83735; 83880; 84145; 84484; 85025; 87040; 87077; 87086; 87186; 93005; 93308; 94640; 94760; 96361; 96374; 99285

== ENCOUNTER 2022-04-18 10:11 | Day surgery (SDC) | payer MEDICARE ==
[2022-04-16 12:33] VITALS: BMI 23.8
--- NOTE | 2022-04-17 20:21 | HP ---
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 HISTORY OF PRESENT ILLNESS: This patient is a 76-year-old female with a history of having severe COPD, who was referred to my office because of a lesion on her left true vocal cord. The lesion was discovered during a recent bronchoscopy while the patient was hospitalized for a left collapsed lung. The patient is a smoker and smokes at least a pack to a pack and a half or more per day and has absolutely no desire to quit. At the time that she was seen in my office, clinical examination of the hypopharynx including an indirect laryngoscopy with a headlight and mirror revealed a possible lesion of the right true vocal cord. The patient had originally been listed as having a lesion on the left true vocal cord, but it is actually the right true vocal cord. This lesion is highly suspicious for a malignancy. No other suspicious lesions were noted. Because of a history of heavy smoking, it was recommended that the patient undergo a suspension microlaryngoscopy with biopsy of this lesion of the right true vocal cord under general anesthesia. PAST MEDICAL HISTORY: Reveals that the patient has allergies to Imitrex. PAST SURGICAL HISTORY: Reveals the patient's previous surgeries include triple bypass surgery, appendectomy, mastectomy, benign tumor removed from the back of her neck, tonsillectomy and adenoidectomy. She is 2 para, 2 , 0 miscarriage. CURRENT MEDICATIONS: Include: 1. Metoprolol. 2. Lipitor. 3. Lopressor. 4. Xanax. 5. Neurontin. 6. Lexapro. 7. Baby aspirin daily. 8. Eliquis. 9. Flonase. 10.Ellipta. 11.Baclofen. 12.Femara. 13.Zestril. 14.Albuterol. REVIEW OF SYSTEMS: CARDIOVASCULAR: Positive for hypertension and ASHD. RESPIRATORY: Positive for severe COPD. METABOLIC/ENDOCRINE is positive for hypercholesterolemia. The remainder of the review of systems is essentially unremarkable. PHYSICAL EXAMINATION: GENERAL: This patient is a 76-year-old female, who is alert and cooperative. HEENT: The patient is normocephalic. Tympanic membranes are normal. Middle ear space is free of any fluid or infection. Pupils are equal, round, and react to light and accommodation. Extraocular movements are within normal limits. Intranasal examination reveals moderate septal deviation with compensatory hypertrophy of the inferior turbinates. Examination of the hypopharynx and larynx is as described above in the history of present illness and will not be repeated here. Cranial nerves 2 through 12, palpation of the neck, and the remainder of the head and neck exam is within normal limits. CHEST/CARDIOVASCULAR: Lung sounds are distant, but clear. The patient is in regular sinus rhythm. S1, S2 are present without evidence of any murmurs, S3s, or S4s. Peripheral pulses are bilaterally symmetrical. ABDOMEN: There is no evidence any masses, megaly, or tenderness. Abdomen is soft. SKIN: Unremarkable. MUSCULOSKELETAL/NEUROLOGICAL: Within normal limits. PELVIC/RECTAL: Deferred at this time because the patient has this done on a regular basis at her family physician's office. IMPRESSION: Suspicious lesion of the right true vocal cord. PLAN: The patient is scheduled to undergo a suspension microlaryngoscopy, biopsy of right true vocal cord under general anesthesia in the a.m. Attention RNs in the pre-surgical area: I have ordered for this patient to receive Ofirmev 1000 mg IV to be given once an intravenous line has been established. I have not ordered any pre-surgical prophylactic antibiotics. If the Pharmacy Department sends any pre-surgical prophylactic antibiotics to the pre-surgical area for this patient, that order should be cancelled, the medication should be returned to the Pharmacy Department, and make sure that the patient's account is credited appropriately. I have discussed the risks, benefits and alternative therapies for the above-mentioned procedure and for both sedation/analgesia as well as necessary blood product administration, if indicated, as they pertain to this patient. The patient has indicated her understanding and acceptance of the risks and procedures discussed. MMODL / IJN: [id number] /
[~2022-04-18 10:11] MED LIST changes: +ACETAMINOPHEN IV (For NPO) 1,000 MG in EMPTY BAG 1 BAG IVPB ONE; -HEPARIN SODIUM,PORCINE/PF 5,000 UNIT/0.5 ML SYRINGE SQ PRN; +LACTATED RINGERS 1,000 ML IV SCH; +ONDANSETRON 4 MG/2 ML VIAL IVP ONE; -ONDANSETRON 4 MG/2 ML VIAL IVP PRN
[2022-04-18 11:17] VITALS: RESP 16; TEMP 96.6
[2022-04-18] MEDS ORDERED: SUCCINYLCHOLINE CHLORIDE 200 MG/10 ML VIAL IV ONE (12:15)
[2022-04-18] MEDS ORDERED: fentaNYL (PF) 50 MCG/ML 2 ML AMP ONE (12:15)
[2022-04-18] MEDS ORDERED: LIDOCAINE 2% INJ 20 MG/ML (2 ML VIAL) ONE (12:15)
[2022-04-18] MEDS ORDERED: PROPOFOL 10 MG/ML 20 ML VIAL IV ONE (12:15)
[2022-04-18] MEDS ORDERED: LIDOCAINE 4% LTA KIT (4 ML) TOPICAL ONE (12:15)
[2022-04-18 14:05] VITALS: PULSE 67
[2022-04-18 15:02] VITALS: BP 149/73
--- NOTE | 2022-04-20 15:54 | OP ---
OPERATIVE REPORT PREOPERATIVE DIAGNOSIS: Laryngeal mass. POSTOPERATIVE DIAGNOSES: 1. Laryngeal mass, biopsy pathology pending. 2. Torus palatinus. ANESTHESIA: General. OPERATIVE PROCEDURE: Suspension microlaryngoscopy with biopsy of right laryngeal mass, final pathology pending. ANESTHESIA: General. COMPLICATIONS: None. ESTIMATED BLOOD LOSS: Less than 1 cc. DESCRIPTION OF PROCEDURE: The patient was placed on the operating table in supine position and after uneventful induction and endotracheal intubation, satisfactory general anesthesia was obtained. Next, the patient was draped in usual and customary fashion. Following this, the laryngoscope was introduced into the oropharynx and immediately one could see that there was a large torus palatinus arising in the area of the patient's hard palate. This is a benign condition and therefore was not biopsied. Next, as the laryngoscope was advanced, the right and left pyriform sinuses, base of tongue and vallecula were inspected and found to be free of any suspicious lesions. Next, the laryngoscope was presented at the laryngeal introitus. The Lewy apparatus was then attached to the handle on the laryngoscope and the laryngoscope was suspended on the patient's chest. Inspection did not reveal any evidence of any suspicious lesions of the right or left true vocal cord proper. However, there was noted to be a cystic-appearing lesion that was involving the right false vocal cord near the region of the arytenoid. This area was biopsied. Further inspection did not reveal any other suspicious lesions. There did not appear to be anything located in the immediate subglottic area either. The patient was given 10 mg of Decadron intraoperatively to reduce any laryngeal edema. At this point, the procedure was terminated. There were no intraoperative complications. The patient tolerated the procedure well and was returned to recovery room in satisfactory condition. Final pathology is pending. Again, it is noted that the patient had a rather large torus palatinus. MMODL / IJN: [id number] /
--- NOTE | 2022-04-20 16:21 | OP ---
OPERATIVE REPORT PREOPERATIVE DIAGNOSIS: Right true vocal cord mass. 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 ANESTHESIA: General. OPERATIVE PROCEDURE: Suspension microlaryngoscopy with biopsy of right laryngeal mass. COMPLICATIONS: None. ESTIMATED BLOOD LOSS: Less than 1 cc. DESCRIPTION OF PROCEDURE: The patient was placed on the operating table in supine position and after uneventful induction and endotracheal intubation, satisfactory general anesthesia was obtained. Next, the patient's head was draped in usual and customary fashion. Following this, the laryngoscope was introduced into the patient's oropharynx. Immediately it was noted that there was a large torus palatinus located on the patient's hard palate. This is a benign lesion and therefore it was not biopsied. Further inspection of the hypopharynx revealed no suspicious lesion of the right or left pyriform sinuses, base of tongue, vallecula, or epiglottis. The tip of the laryngoscope was then presented at the laryngeal introitus, the Lewy apparatus was then attached to the handle of the laryngoscope and the laryngoscope was suspended on the patient's chest. Next, using the Zeiss operating microscope, the larynx and vocal cords were visualized with magnification. There were no suspicious lesions noted of the right or left pyriform sinus or of the subglottic area. However, there appeared to be a cystic lesion located in the region of the right ventricle/right true vocal cord. A single biopsy was taken of this area and this specimen was sent in formalin to Pathology for permanent sectioning. Further extensive inspection did not reveal any suspicious lesions. Again, there was no suspicious mass noted on either the right or left true vocal cord. However, it was noted that the patient did have a large torus palatinus, which was easily seen at initiation of any type of laryngoscopy or bronchoscopy procedure. The patient was given 10 mg of Decadron intraoperatively to reduce any postoperative laryngeal edema. At this point, the procedure was terminated. There were no intraoperative complications. The patient tolerated the procedure well and was returned to recovery room in satisfactory condition. MMODL / IJN: [id number] /
== END 2022-04-18 15:24 | disposition home or self-care (01) ==
LOC: OR 10:11
PROVIDERS: ATTEND Otolaryngology
DX: J37.0 Chronic laryngitis (principal); J38.1 Polyp of vocal cord and larynx; M27.0 Developmental disorders of jaws; I10 Essential (primary) hypertension; E78.5 Hyperlipidemia, unspecified; J44.9 Chronic obstructive pulmonary disease, unspecified; Z90.49 Acquired absence of other specified parts of digestive tract; I48.91 Unspecified atrial fibrillation; G47.33 Obstructive sleep apnea (adult) (pediatric); I25.10 Atherosclerotic heart disease of native coronary artery without angina pectoris; I49.9 Cardiac arrhythmia, unspecified; I63.9 Cerebral infarction, unspecified; Z98.890 Other specified postprocedural states; Z90.89 Acquired absence of other organs; Z90.10 Acquired absence of unspecified breast and nipple; Z79.51 Long term (current) use of inhaled steroids; Z79.899 Other long term (current) drug therapy; Z88.1 Allergy status to other antibiotic agents
CPT/HCPCS: 88305; 31536; J0330; J1100; J2405; J3010; J0131; J2704; J1170; J2001

== ENCOUNTER 2022-05-12 08:36 | Day surgery (SDC) | payer MEDICARE ==
[2022-05-09 14:31] VITALS: BMI 22.1
--- NOTE | 2022-05-11 20:48 | HP ---
HISTORY AND PHYSICAL CHIEF COMPLAINT: Chronic laryngitis with possible laryngeal lesion. HISTORY OF PRESENT ILLNESS: The patient is a 76-year-old female with history of severe COPD, who was initially referred to my office because of a laryngeal lesion. Lesion was discovered on recent bronchoscopy. The patient is a heavy smoker and smokes at least a pack to a pack and a half or more cigarettes per day and has absolutely no desire to quit. The patient was subsequently taken to surgery and underwent a suspension microlaryngoscopy and a right laryngeal biopsy did not reveal evidence of any malignancy. However, when the patient was seen in my office, I advised her that although the pathology came back negative for malignancy, I was still quite suspicious and recommended that we repeat suspension microlaryngoscopy, and at that time, we will biopsy not only the right true vocal cord, but also do a blind biopsy of this area of the vallecular area. The patient was in agreement with this. PAST MEDICAL HISTORY: Reveals that she has allergies to Imitrex. PAST SURGICAL HISTORY: Previous surgeries include triple bypass surgery, suspension microlaryngoscopy, appendectomy, mastectomy, benign tumor removed from the back of her neck, tonsillectomy, adenoidectomy. She is 2 para, 2 , 0 miscarriage. CURRENT MEDICATIONS: 1. Lipitor. 2. Metoprolol. 3. Albuterol. 4. Femara. 5. Zestril. 6. Flonase. 7. Baclofen. 8. Ellipta. 9. Neurontin. 10.Baby aspirin daily. 11.Lopressor. 12.Lexapro. 13.Xanax. REVIEW OF SYSTEMS: CARDIOVASCULAR: Positive for hypertension and ASHD. RESPIRATORY: Positive for severe COPD. METABOLIC/ENDOCRINE: Positive for hypercholesterolemia. Remainder of the review of systems is unremarkable. PHYSICAL EXAMINATION: GENERAL: This patient is a 76-year-old female, who is alert and cooperative. HEENT: The patient is normocephalic. Tympanic membranes are normal. Middle ear spaces are free of any fluid or infection. Pupils are equal, round, and reactive to light and accommodation. Extraocular movements are within normal limits. Intranasal examination reveals [id number] septal deviation with compensatory hypertrophy of the inferior turbinates. Examination of the oropharynx is unremarkable. Indirect laryngoscopy findings were noted on previous history and physical and in the history of present illness and will not be repeated here. Palpation of the neck is negative for any neck masses or lymphadenopathy. Cranial nerves II through XII, and the remainder of the head and neck exam is unremarkable. CHEST/CARDIOVASCULAR: Lung howard are clear. The lung sounds are distant bilaterally. There is no rales, rhonchi, or wheezes. The patient is in regular sinus rhythm. S1 and S2 are present without any murmurs, S3s, or S4s. Peripheral pulses are bilaterally symmetrical. ABDOMEN: There is no evidence of any masses, megaly, or tenderness. Abdomen is soft. SKIN: Unremarkable. MUSCULOSKELETAL/NEUROLOGICAL: Within normal limits. PELVIC/RECTAL: Deferred at this time because the patient has this done on a regular basis at her family physician's office. The remainder of the physical exam is unremarkable. ASSESSMENT: Chronic laryngitis with possible laryngeal lesion. PLAN: The patient is scheduled to undergo a suspension microlaryngoscopy with biopsy of the vallecula, right true vocal cord, and laryngeal lesion. Attention RNs in the pre-surgical area: I have ordered for this patient to receive 1000 mg of Ofirmev IV to be given once an intravenous line has been established. I have not ordered any pre-surgical prophylactic antibiotics for this patient. If the Pharmacy Department sends any pre-surgical prophylactic antibiotics to the pre-surgical area for this patient, please return that medication to the pharmacy and cancel that order. Please make sure that the patient's account is credited appropriately. I have discussed the risks, benefits and alternative therapies for the above-mentioned procedure and for both sedation/analgesia as well as necessary blood product administration, if indicated, as they pertain to this patient. The patient has indicated her understanding and acceptance of the risks and procedures discussed. MMODL / IJN: [id number] /
[~2022-05-12 08:36] MED LIST changes: -ACETAMINOPHEN IV (For NPO) 1,000 MG in EMPTY BAG 1 BAG IVPB ONE; -DEXAMETHASONE SOD PHOSPHATE 4 MG/ML 1 ML VIAL IV ONE; -HYDROmorphone 0.5 MG/0.5 ML SYRINGE IVP PRN; -LACTATED RINGERS 1,000 ML IV SCH; -LIDOCAINE 1% (10MG/ML) FOR IV START INTRADERMA PRN; -MIDAZOLAM 2 MG/2 ML VIAL IV PRN; -ONDANSETRON 4 MG/2 ML VIAL IVP ONE
[2022-05-12] MEDS ORDERED: ACETAMINOPHEN IV (For NPO) 1,000 MG in EMPTY BAG 1 BAG IVPB ONE (09:45)
[2022-05-12] MEDS ORDERED: ACETAMINOPHEN IVPB ONE (09:45)
[2022-05-12] MEDS ORDERED: ceFAZolin 1,000 MG VIAL ONE (09:59)
[2022-05-12] MEDS ORDERED: LIDOCAINE 2% INJ 20 MG/ML (2 ML VIAL) ONE (09:59)
[2022-05-12] MEDS ORDERED: ONDANSETRON 4 MG/2 ML VIAL ONE (09:59)
[2022-05-12] MEDS ORDERED: PROPOFOL 10 MG/ML 20 ML VIAL IV ONE (09:59)
[2022-05-12] MEDS ORDERED: MIDAZOLAM 2 MG/2 ML VIAL ONE (09:59)
[2022-05-12] MEDS ORDERED: fentaNYL (PF) 50 MCG/ML 2 ML AMP ONE (09:59)
[2022-05-12] MEDS ORDERED: SUCCINYLCHOLINE CHLORIDE 200 MG/10 ML VIAL IV ONE (09:59)
[2022-05-12] MEDS ORDERED: DEXAMETHASONE SOD PHOS (MDV) 100 MG/10 ML VIAL ONE (09:59)
[2022-05-12] MEDS ORDERED: SODIUM CHLORIDE 0.9% 100 ML BAG ONE (09:59)
[2022-05-12] MEDS ORDERED: ACETAMINOPHEN IV (For NPO) 1,000 MG/100 ML VIAL IVPB ONE (10:02)
[2022-05-12] MEDS ORDERED: LACTATED RINGERS 1,000 ML IV ONE ×2 (10:03→12:22)
[2022-05-12] MEDS ORDERED: SODIUM CHLORIDE 0.9% 50 ML with ceFAZolin 1,000 MG IV ONE ×2 (10:19)
[2022-05-12 11:07] VITALS: TEMP 97.3
[2022-05-12 12:35] VITALS: RESP 16
[2022-05-12] MEDS ORDERED: Acetaminophen-Codeine 300-30mg TAB ONE (13:19)
[2022-05-12] MEDS ORDERED: Acetaminophen-Codeine 300-30mg TAB PO ONE (13:21)
[2022-05-12 13:23] VITALS: PULSE 77
[2022-05-12 13:30] VITALS: BP 151/81
--- NOTE | 2022-05-13 08:07 | OP ---
OPERATIVE REPORT PREOPERATIVE DIAGNOSIS: Chronic laryngitis with right laryngeal mass. POSTOPERATIVE DIAGNOSIS: Chronic laryngitis with right laryngeal mass, final pathology pending. ANESTHESIA: General. PROCEDURES PERFORMED: 1. Suspension microlaryngoscopy with biopsy of lesion of the right vallecula/base of tongue. 2. Biopsy of lesion of the right laryngeal ventricle. COMPLICATIONS: None. ESTIMATED BLOOD LOSS: Less than 1 mL. DESCRIPTION OF PROCEDURE: The patient was placed on the operating table in supine position, and after uneventful induction and endotracheal intubation, satisfactory general anesthesia was obtained. Next, the patient's head was draped in usual customary fashion. Following this, the laryngoscope was introduced into the oropharynx, and the entire hypopharynx including the right and left piriform sinus, base of tongue, valleculae, and epiglottis were inspected. There appeared to be a sizable vallecular cyst on the right side near the base of tongue. Therefore, using a large, straight, up-biting microlaryngeal forceps, a biopsy specimen of this area was taken and sent to Pathology in formalin for permanent sectioning. Next, the tip of the laryngoscope was placed at the laryngeal introitus, the Lewy apparatus was attached to the handle of the laryngoscope, and the laryngoscope was suspended on the patient's chest. Next, using the Zeiss operating microscope under direct visualization, one could see that there appeared to be some irregular tissue noted in the right ventricle. I did not see any actual spillage onto the right true vocal cord either posteriorly or anteriorly. Multiple blind biopsies of this tissue were taken. The tissue did not appear to be suspicious, however. Further careful search of the entire laryngeal apparatus did not reveal any other suspicious lesions. The patient was given 10 mg of Decadron intraoperatively to prevent any postoperative laryngeal edema. The true vocal cords themselves appeared to be free of any lesions or disease, polyps, nodules, etc. At this point, the procedure was terminated. There were no intraoperative complications. The patient tolerated the procedure well and was returned to the recovery room in satisfactory condition. Final pathology is pending. MMODL / IJN: [id number] /
== END 2022-05-12 14:15 | disposition home or self-care (01) ==
LOC: OR 08:36
PROVIDERS: ATTEND Otolaryngology
DX: J37.0 Chronic laryngitis (principal); L72.0 Epidermal cyst; I10 Essential (primary) hypertension; J44.9 Chronic obstructive pulmonary disease, unspecified; Z90.49 Acquired absence of other specified parts of digestive tract; Z90.89 Acquired absence of other organs; Z79.899 Other long term (current) drug therapy
CPT/HCPCS: 88305; 84132; 31536; J2250; J0330; J2405; J0690; J3010; J1100; J0131; J2704; J2001

== ENCOUNTER → 2022-06-25 | Outpatient (CLI) | payer MEDICARE ==
[2022-06-25 13:22] LABS: African American GFR (CKD) >90 (>60 ml/min/1.73 sqM); Blood Urea Nitrogen 15 mg/dL (7-17); Non-African American GFR(CKD) 86 (>60 ml/min/1.73 sqM)
--- NOTE | 2022-06-25 15:42 | CT ---
EXAMINATION TYPE: CT angio abd aorta w/Runoff DATE OF EXAM: 06/25/2022 COMPARISON: None HISTORY: 76-year-old female I73.9, PAD, Cold lower extremities X1 year TECHNIQUE: Contiguous axial scanning of the abdomen and pelvis performed without and with IV Contrast , post contrast scanning was continued through the bilateral lower extremities. Patient injected with 125 mL of Isovue 370. Coronal/sagittal reconstructions performed. 3-D reconstructions generated on a dedicated workstation. CT DLP: 1598 mGycm Automated exposure control for dose reduction was used. FINDINGS: Severe generalized anasarca change. Heart mildly enlarged. Prominent reflux of contrast into the hepatic veins. Small left and trace righ t pleural effusions with adjacent atelectasis. There is mild abdominopelvic ascites fluid. Allowing for arterial phase imaging, liver, adrenal glands and left kidney, spleen, and pancreas show no gross abnormality. There is a 3.2 cm benign cortical cyst lateral right kidney. No dilated small bowel or free air. There is a 2.5 x 1.5 cm gallstone. Mild gallbladder wall thickening but no hydropic change. There is moderate mural and fold thickening along the cecum and ascending colon, refer to axial image 104. Suspect mid to distal sigmoid diverticulosis. The severe anasarca change and limited intra-abdo rashaun fat limits evaluation. Circumferential bladder wall thickening. Correlate to exclude cystitis. Mild pelvic ascites fluid. Ut erus not clearly identified and may be surgically absent. Neither ovary clearly identified. Bones: Osteopenia. Mild degenerative change of the hips. Moderate to advanced spondylotic change mid to lower lumbar spine. VASCULATURE: Scattered moderate atherosclerotic calcifications are present throughout. Celiac axis and SMA origins are patent. There is possible severe focal stenosis proximal to mid right renal artery, axial image 61 located beyond the origin. HALLE is patent. No aneurysmal change. Right: Right common and external iliac artery stents. Moderate atherosclerotic calcifications continue along the iliac vessels. Suspect occlusion of the origin of the right internal iliac artery with some estela t distal reconstitution from collateral vessels. Segmental mild stenosis at the distal landing zone of the external iliac artery stent. The common femoral artery shows scattered mild atherosclerotic calcifications. The profunda femoral artery is patent. There is SFA occlusion 1 cm below the bifurcation. Reconstitution of the upper popliteal artery. Normal takeoff of the anterior tibial artery. Tibial peroneal trunk is patent. Nonvisualization of the posterior tibial artery. The anterior tibial artery becomes markedly diminutive at the distal third leg level. The peroneal artery becomes diminutive at the distal leg. Faint runoff is seen via the anterior tibial and peroneal arteries. Left: Mild segmental stenoses left common iliac artery. Left external iliac artery stent. Mild stenosis distal left external iliac artery after the stent della ding zone. Moderate focal stenosis at the origin of the left internal iliac artery with moderate stenoses throug hout. Moderate atherosclerotic calcifications of the common femoral artery. Suspect severe focal stenosis at the origin of the profunda femoral artery which otherwise opacifies. SFA stent is patent. The popliteal artery is patent. Normal takeoff of the anterior tibial artery. Moderate atherosclerotic calcification tibioperoneal trunk and proximal anterior tibial artery. Nonvisualization of the posterior tibial artery. The anterior tibial artery becomes diminutive at the mid leg level. It is not seen beyond the distal third leg level. Faint runoff via the peroneal artery which supplies collateral flow to the distal posterior tibial ar leyla at the ankle. IMPRESSION: 1. MODERATE ATHEROSCLEROTIC CHANGES THROUGHOUT. SEVERE FOCAL STENOSIS PROXIMAL TO MID RIGHT RENAL ART CHARLENE BEYOND ITS ORIGIN. RIGHT: 2. COMMON AND EXTERNAL ILIAC ARTERY STENTS. OCCLUSION AT THE ORIGIN OF THE RIGHT INTERNAL ILIAC ARTER Y. 3. Patent PFA with SFA occlusion 1 cm below its origin. Reconstitution of the upper popliteal artery. 4. Nonvisualization of the posterior tibial artery. Anterior tibial artery becomes diminutive at the distal third leg level. Peroneal artery becomes diminutive at the distal leg. Faint two-vessel runoff . LEFT: 5. External iliac artery stent. Moderate segmental stenoses throughout the left internal iliac artery and [employer]. 6. Severe focal stenosis at the origin of the PFA. 7. Patent SFA stent and popliteal artery. 8. Nonvisualization of the posterior tibial artery. 9. Anterior tibial artery becomes diminutive at the mid leg level and is not seen beyond the distal t hird leg. 10. Faint runoff via the peroneal artery which supplies collateral flow to the distal posterior tibia l artery at the ankle. ABDOMEN PELVIS: 11. Severe anasarca change. Cardiomegaly. Contrast reflux into the hepatic veins. Small left and trac e right pleural effusions. Mild ascites fluid. Correlate for CHF and fluid overload. 12. Abnormal moderate wall thickening of the cecum and ascending colon. Correlate for nonspecific mod erate colitis. Direct visualization when patient able and if routine screening colonoscopy has not be en performed. 13. A 2.5 cm gallstone. 14. Prominent bladder wall thickening could represent chronic bladder hypertrophy or cystitis. Clinic ally correlate.
== END | disposition home or self-care (01) ==
LOC: RADCTMAIN 12:39
PROVIDERS: ATTEND Surgery
DX: I70.201 Unspecified atherosclerosis of native arteries of extremities, right leg (principal); K80.20 Calculus of gallbladder without cholecystitis without obstruction; N32.89 Other specified disorders of bladder; J90 Pleural effusion, not elsewhere classified; R18.8 Other ascites; I51.7 Cardiomegaly
CPT/HCPCS: 82565; 84520; 75635; 36415; Q9967

== ENCOUNTER 2022-07-15 18:12 | Inpatient (IN) | payer MEDICARE ==
--- NOTE | 2022-07-15 19:52 | XR ---
EXAMINATION TYPE: XR tibia fibula RT DATE OF EXAM: 07/15/2022 CLINICAL HISTORY: Swelling and pain after injury. TECHNIQUE: Two views of the right leg are obtained. COMPARISON: None. FINDINGS: There is no acute fracture or dislocation seen in the right tibia or fibula. The right kn ee and ankle joints appear within normal limits. Moderate diffuse subcutaneous edema is present. Surg ical clips medially are seen. More focal soft tissue swelling laterally mid to distal fibular diaphys eal level is noted. IMPRESSION: As above.
--- NOTE | 2022-07-15 19:54 | XR ---
EXAMINATION TYPE: XR chest 2V DATE OF EXAM: 07/15/2022 COMPARISON: Chest x-ray January 29, 2022 HISTORY: Difficulty in breathing. TECHNIQUE: Frontal and lateral views of the chest are obtained. FINDINGS: There is persistent cardiomegaly. There is left atrial appendage clip redemonstrated. Joe e scattered mediastinal clips noted. Chronic parenchymal changes are present with suspected mild inte rstitial edema. No pleural effusion or pneumothorax noted. The osseous structures are intact. IMPRESSION: Cardiomegaly with mild interstitial edema redemonstrated. No significant change from prio r. Correlate for CHF exacerbation.
[2022-07-15 20:24] LABS: Anisocytosis Slight; Basophils % (A) 0 %; Eosinophils # (A) 0.1 k/uL (0-0.7); Eosinophils % (A) 1 %; HCT 45.2 % (34.0-46.0); HGB 13.7 gm/dL (11.4-16.0); Hypochromasia Marked; Lymphocytes # (A) 1.8 k/uL (1.0-4.8); Lymphocytes % (A) 22 %; MCH 29.6 pg (25.0-35.0); MCHC 30.3 g/dL (31.0-37.0); MCV 97.9 fL (80.0-100.0); Macrocytosis Slight; Mean Platelet Volume 8.7; Monocytes # (A) 0.4 k/uL (0-1.0); Monocytes % (A) 5 %; Neutrophils # (A) 5.7 k/uL (1.3-7.7); Neutrophils % (A) 69 %; Platelet Count 203 k/uL (150-450); RBC 4.62 m/uL (3.80-5.40); WBC 8.3 k/uL (3.8-10.6)
--- NOTE | 2022-07-15 20:24 | ED ---
General Adult HPI - General Chief complaint: Skin/Abscess/Foreign Body Stated complaint: edema - both legs Time Seen by Provider: 07/15/22 18:29 Source: patient, RN notes reviewed, old records reviewed Mode of arrival: wheelchair Limitations: no limitations - History of Present Illness Initial comments: This a 76-year-old female presents emergency department she states she is on eliquis. Patient comes in because she bumped her leg 2 weeks ago and there was a large hematoma on the outside of her leg and it is not going down is becoming more painful for she came in to be evaluated because her primary medical care doctor wanted someone else looked at and possibly evacuate the hematoma. Patient has bilateral edema which is chronic but worsening lately. Patient denies any fever chills or cough. Patient denies any chest pain palpitations difficulty breathing. - Related Data Home Medications Medication Instructions Recorded Confirmed Atorvastatin [Lipitor] 80 mg PO HS 08/02/20 07/15/22 Furosemide [Lasix] 20 mg PO BID 09/13/21 07/15/22 Fluticasone/Umeclidin/Vilanter 1 puff INHALATION RT-DAILY PRN 11/01/21 07/15/22 [Trelegy Ellipta 100-62.5-25] Letrozole [Femara] 2.5 mg PO DAILY 01/04/22 07/15/22 lisinopriL [Zestril] 2.5 mg PO DAILY 01/04/22 07/15/22 ALPRAZolam [Xanax] 0.25 mg PO BID PRN 01/27/22 07/15/22 Nitroglycerin Sl Tabs [Nitrostat] 0.4 mg SUBLINGUAL Q5M PRN 04/16/22 07/15/22 Escitalopram Oxalate [Lexapro] 10 mg PO DAILY 07/15/22 07/15/22 Gabapentin [Neurontin] 300 mg PO BID 07/15/22 07/15/22 Metoprolol Tartrate [Lopressor] 75 mg PO BID 07/15/22 07/15/22 Previous Rx's Medication Instructions Recorded Apixaban [Eliquis] 5 mg PO BID #0 08/22/21 Albuterol Sulfate [Ventolin HFA] 1 puff INHALATION RT-Q4H PRN #1 01/15/22 each Allergies Allergy/AdvReac Type Severity Reaction Status Date / Time sumatriptan [From Imitrex] AdvReac Chest Pain Verified 05/09/22 14:25 Review of Systems ROS Statement: Those systems with pertinent positive or pertinent negative responses have been documented in the HPI. ROS Other: All systems not noted in ROS Statement are negative. Past Medical History Past Medical History: Atrial Fibrillation, Coronary Artery Disease (CAD), Cancer, Heart Failure, COPD, CVA/TIA, Hyperlipidemia, Hypertension, Mitral Valve Prolapse (MVP), Neurologic Disorder, Osteoarthritis (OA), Pneumonia, Skin Disorder, Sleep Apnea/CPAP/BIPAP, Vascular Disorder Additional Past Medical History / Comment(s): right breast cancer (mastectomy november 2021).,. Multiple Sclerosis. ,PAD hx chronic wounds left foot/lower leg now healed., states feet are red & purple in color, edema both feet., peripheral neuropathy., CVA x2 Jul/Aug 2021 gait unsteady-uses w/c., generalized weakness., hx anemia with iron infusions., hx hospitalization for collapsed lung and respiratory failure with intubation., states lump on her vocal cord.,. oxygen at 2.5-4 L prn, sleep apnea (no machine) History of Any Multi-Drug Resistant Organisms: None Reported Past Surgical History: Appendectomy, Breast Surgery, Coronary Bypass/CABG, Heart Catheterization With Stent, Orthopedic Surgery, Tonsillectomy Additional Past Surgical History / Comment(s): 08/17/21 surgery at [facility] for mass upper back., 11/2020 CABG 4 vessel, PCI/stents in , bilateral iliac arthrectomy/stents ., left foot wound debridements, bronchoscopy/lavage, bilateral breast biopsies, D&C, lumpectomy right breast 08/2021. Right mastectomy (11/26/21) Past Anesthesia/Blood Transfusion Reactions: No Reported Reaction, Motion Sickness Additional Past Anesthesia/Blood Transfusion Reaction / Comment(s): No hx blood transfusion. Date of Last Stent Placement:: 2008 Past Psychological History: Anxiety, Depression Smoking Status: Current every day smoker Past Alcohol Use History: None Reported Past Drug Use History: None Reported - Past Family History Father Family Medical History: No Reported History Mother Family Medical History: Cancer Additional Family Medical History / Comment(s): Breast and brain cancer. General Exam - General Exam Comments Initial Comments: GENERAL: Patient is well-developed and well-nourished. Patient is nontoxic and well- hydrated and is in mild distress. ENT: Neck is soft and supple. No significant lymphadenopathy is noted. Oropharynx is clear. Moist mucous membranes. Neck has full range of motion without eliciting any pain. EYES: The sclera were anicteric and conjunctiva were pink and moist. Extraocular movements were intact and pupils were equal round and reactive to light. Eyelids were unremarkable. PULMONARY: Unlabored respirations. Good breath sounds bilaterally. No audible rales rhonchi or wheezing was noted. CARDIOVASCULAR: There is a regular rate and rhythm without any murmurs gallops or rubs. ABDOMEN: Soft and nontender with normal bowel sounds. SKIN: Skin is clear with no lesions or rashes and otherwise unremarkable. NEUROLOGIC: Patient is alert and oriented x3. Cranial nerves II through XII are grossly intact. Motor and sensory are also intact. Normal speech, volume and content. Symmetrical smile. MUSCULOSKELETAL: Normal extremities with adequate strength and full range of motion. Bilateral edema is 2+. Patient has a large hematoma on the lateral aspect of the right leg it is extremely tender to touch and it does appear to be some early necrosis of the overlying skin. LYMPHATICS: No significant lymphadenopathy is noted PSYCHIATRIC: Normal psychiatric evaluation. Limitations: no limitations Course Vital Signs 07/15/22 07/15/22 07/15/22 18:14 19:22 20:17 Temperature 97 F L 97.3 F L Pulse Rate 79 70 Respiratory 20 16 16 Rate Blood Pressure 159/78 114/83 O2 Sat by Pulse 92 L 94 L Oximetry Medical Decision Making - Medical Decision Making X-ray of the chest was interpreted by me. X-ray of the chest shows mild pulmona ry edema. X-ray of the tib-fib was interpreted by me. X-ray of the tib-fib shows no acute abnormality. [facility] the patient wrote admitting orders. - Lab Data Result diagrams: 07/15/22 18:49 07/15/22 18:49 Lab Results 07/15/22 07/15/22 07/15/22 Range/Units 18:49 18:49 18:49 WBC 8.3 (3.8-10.6) k/uL RBC 4.62 (3.80-5.40) m/uL Hgb 13.7 (11.4-16.0) gm/dL Hct 45.2 (34.0-46.0) % MCV 97.9 (80.0-100.0) fL MCH 29.6 (25.0-35.0) pg MCHC 30.3 L (31.0-37.0) g/dL RDW 17.0 H (11.5-15.5) % Plt Count 203 (150-450) k/uL MPV 8.7 Neutrophils % 69 % Lymphocytes % 22 % Monocytes % 5 % Eosinophils % 1 % Basophils % 0 % Neutrophils # 5.7 (1.3-7.7) k/uL Lymphocytes # 1.8 (1.0-4.8) k/uL Monocytes # 0.4 (0-1.0) k/uL Eosinophils # 0.1 (0-0.7) k/uL Basophils # 0.0 (0-0.2) k/uL Hypochromasia Marked Anisocytosis Slight Macrocytosis Slight PT (9.0-12.0) sec INR (<1.2) APTT (22.0-30.0) sec Sodium 138 (137-145) mmol/L Potassium 3.7 (3.5-5.1) mmol/L Chloride 97 L (98-107) mmol/L Carbon Dioxide 37 H (22-30) mmol/L Anion Gap 4 mmol/L BUN 17 (7-17) mg/dL Creatinine 0.65 (0.52-1.04) mg/dL Est GFR (CKD-EPI)AfAm >90 (>60 ml/min/1.73 sqM) Est GFR (CKD-EPI)NonAf 88 (>60 ml/min/1.73 sqM) Glucose 89 (74-99) mg/dL Plasma Lactic Acid Harrison 1.3 (0.7-2.0) mmol/L Calcium 8.5 (8.4-10.2) mg/dL Magnesium 1.9 (1.6-2.3) mg/dL Total Bilirubin 0.8 (0.2-1.3) mg/dL AST 28 (14-36) U/L ALT 17 (4-34) U/L Alkaline Phosphatase 126 (38-126) U/L NT-Pro-B Natriuret Pep pg/mL Total Protein 6.9 (6.3-8.2) g/dL Albumin 3.7 (3.5-5.0) g/dL 07/15/22 07/15/22 Range/Units 18:49 18:49 WBC (3.8-10.6) k/uL RBC (3.80-5.40) m/uL Hgb (11.4-16.0) gm/dL Hct (34.0-46.0) % MCV (80.0-100.0) fL MCH (25.0-35.0) pg MCHC (31.0-37.0) g/dL RDW (11.5-15.5) % Plt Count (150-450) k/uL MPV Neutrophils % % Lymphocytes % % Monocytes % % Eosinophils % % Basophils % % Neutrophils # (1.3-7.7) k/uL Lymphocytes # (1.0-4.8) k/uL Monocytes # (0-1.0) k/uL Eosinophils # (0-0.7) k/uL Basophils # (0-0.2) k/uL Hypochromasia Anisocytosis Macrocytosis PT 11.0 (9.0-12.0) sec INR 1.1 (<1.2) APTT 26.6 (22.0-30.0) sec Sodium (137-145) mmol/L Potassium (3.5-5.1) mmol/L Chloride (98-107) mmol/L Carbon Dioxide (22-30) mmol/L Anion Gap mmol/L BUN (7-17) mg/dL Creatinine (0.52-1.04) mg/dL Est GFR (CKD-EPI)AfAm (>60 ml/min/1.73 sqM) Est GFR (CKD-EPI)NonAf (>60 ml/min/1.73 sqM) Glucose (74-99) mg/dL Plasma Lactic Acid Harrison (0.7-2.0) mmol/L Calcium (8.4-10.2) mg/dL Magnesium (1.6-2.3) mg/dL Total Bilirubin (0.2-1.3) mg/dL AST (14-36) U/L ALT (4-34) U/L Alkaline Phosphatase (38-126) U/L NT-Pro-B Natriuret Pep 6580 pg/mL Total Protein (6.3-8.2) g/dL Albumin (3.5-5.0) g/dL Disposition Clinical Impression: Pulmonary edema, Hematoma of leg Disposition: ADMITTED IP TO THIS HOSP Referrals: Sydnie Reynolds MD [Primary Care Provider] - 1-2 days Time of Disposition: 22:10
[2022-07-15 20:36] LABS: INR 1.1 (<1.2); Partial Thromboplastin Time 26.6 sec (22.0-30.0)
[2022-07-15 20:45] LABS: ALT 17 U/L (4-34); AST 28 U/L (14-36); African American GFR (CKD) >90 (>60 ml/min/1.73 sqM); Albumin 3.7 g/dL (3.5-5.0); Alkaline Phosphatase 126 U/L (38-126); Anion Gap 4 mmol/L; Blood Urea Nitrogen 17 mg/dL (7-17); Calcium 8.5 mg/dL (8.4-10.2); Carbon Dioxide 37 mmol/L (22-30); Chloride 97 mmol/L (98-107); Glucose 89 mg/dL (74-99); Magnesium 1.9 mg/dL (1.6-2.3); Non-African American GFR(CKD) 88 (>60 ml/min/1.73 sqM); Potassium 3.7 mmol/L (3.5-5.1); Sodium 138 mmol/L (137-145); Total Bilirubin 0.8 mg/dL (0.2-1.3); Total Protein 6.9 g/dL (6.3-8.2)
[2022-07-15] MEDS: FUROSEMIDE 10 MG/ML 4 ML VIAL IV SCH (23:13)
[2022-07-16] MEDS: HYDROcodone/APAP 7.5-325MG 1 EACH TAB PO PRN ×4 (01:40→22:44)
[2022-07-16] MEDS: FUROSEMIDE 10 MG/ML 4 ML VIAL IV SCH ×3 (05:29→21:12)
[2022-07-16] MEDS ORDERED: NITROGLYCERIN SL TABS 0.4 MG TAB SUBLINGUAL PRN (11:25)
[2022-07-16] MEDS ORDERED: ALPRAZolam 0.25 MG TAB PO PRN (11:25)
[2022-07-16] MEDS ORDERED: ALBUTEROL NEBULIZED 2.5 MG/3 ML INHALATION PRN (11:25)
--- NOTE | 2022-07-16 11:33 | P.HPIM ---
History of Present Illness Patient with known history of CHF systolic function around 40-45% came in with complaints of for shortness of breath orthopnea paroxysmal dyspnea with along with bilateral pedal edema. Patient does have a big hematoma and bruise in the right leg patient is on eliquis for atrial fibrillation, patient is presently sinus rhythm, rate controlled. Patient is feeling better today. Patient does have bilateral pedal edema which appears to have improved patient does have some chronic venous stasis redness in bilateral lower extremities along with hematoma in the right leg with significant surrounding redness there is occasional skin breakdowns along with the severe peripheral vascular disease we will pulses and purplish toes. Patient quit smoking for 18 months started smoking again after the demise of her . Patient is feeling better since admission patient was started on every 8 hours IV Lasix 40 mg patient usually uses oral 20 mg twice a day. REVIEW OF SYSTEMS: CONSTITUTIONAL: No fever, no malaise, no fatigue. HEENT: No recent visual problems or hearing problems. Denied any sore throat. CARDIOVASCULAR: No chest pain, no palpitations, no syncope. PULMONARY: no cough, no hemoptysis. GASTROINTESTINAL: No diarrhea, no nausea, no vomiting, no abdominal pain. NEUROLOGICAL: No headaches, no weakness, no numbness. HEMATOLOGICAL: Denies any bleeding or petechiae. GENITOURINARY: Denies any burning micturition, frequency, or urgency. MUSCULOSKELETAL/RHEUMATOLOGICAL: Denies any joint pain, or any muscle pain. ENDOCRINE: Denies any polyuria or polydipsia. The rest of the 14-point review of systems is negative. PHYSICAL EXAMINATION: GENERAL: The patient is alert and oriented x3, not in any acute distress. Well developed, well nourished. HEENT: Pupils are round and equally reacting to light. EOMI. No scleral icterus. No conjunctival pallor. Normocephalic, atraumatic. No pharyngeal erythema. No thyromegaly. CARDIOVASCULAR: S1 and S2 present. No murmurs, rubs, or gallops. PULMONARY: Chest is clear to auscultation, no wheezing or crackles. ABDOMEN: Soft, nontender, nondistended, normoactive bowel sounds. No palpable organomegaly. MUSCULOSKELETAL: No joint swelling or deformity. EXTREMITIES: No clubbing, bilateral lower extremity 2+ pitting pedal edema extending up to both knees venous stasis bilateral lower extremities NEUROLOGICAL: Gross neurological examination did not reveal any focal deficits. SKIN: Venous stasis bilateral lower extremities along with cyanosis of bilateral toes skin breakdown with a hematoma in the right painter area along with some skin breakdown in the right foot . Assessment and plan -Congestive heart failure chronic systolic dysfunction with acute exacerbation EF of around 40-45%, patient will be continued on IV Lasix will cut down the Lasix dose of 40 mg IV twice a day possibly can be discharged later today or tomorrow cardiology will evaluate the patient. -Right painter hematoma patient may have had an ileus, leading to hematoma, patient will be resumed on atelectasis hematoma should resolve by itself -Severe peripheral vascular disease secondary to smoking counseling was provided for this -COPD without any acute exacerbation -Atrial fibrillation paroxysmal presently sinus rhythm -History of mitral valve prolapse -Hypertension -Hyperlipidemia -Sleep apnea uses CPAP machine at home -Coronary artery disease with cardiomyopathy: Patient will be resumed on beta patti and a statin and АНДРЕЙ inhibitor -Urinary retention for which patient has a chronic Tadeo catheter -Generalized deconditioning patient usually mostly nonambulatory does move around with help of a walker and wheelchair does have home care DVT prophylaxis: On anticoagulation Past Medical History Past Medical History: Atrial Fibrillation, Coronary Artery Disease (CAD), Cancer, Heart Failure, COPD, CVA/TIA, Hyperlipidemia, Hypertension, Mitral Valve Prolapse (MVP), Neurologic Disorder, Osteoarthritis (OA), Pneumonia, Skin Diso rder, Sleep Apnea/CPAP/BIPAP, Vascular Disorder Additional Past Medical History / Comment(s): right breast cancer (mastectomy november 2021).,. Multiple Sclerosis. ,PAD hx chronic wounds left foot/lower leg now healed., states feet are red & purple in color, edema both feet., peripheral neuropathy., CVA x2 Jul/Aug 2021 gait unsteady-uses w/c., generalized weakness., hx anemia with iron infusions., hx hospitalization for collapsed lung and respiratory failure with intubation., states lump on her vocal cord.,. oxygen at 2.5-4 L prn, sleep apnea (no machine) History of Any Multi-Drug Resistant Organisms: None Reported Past Surgical History: Appendectomy, Breast Surgery, Coronary Bypass/CABG, Heart Catheterization With Stent, Orthopedic Surgery, Tonsillectomy Additional Past Surgical History / Comment(s): 08/17/21 surgery at [facility] for mass upper back., 11/2020 CABG 4 vessel, PCI/stents in , bilateral iliac arthrectomy/stents ., left foot wound debridements, bronchoscopy/lavage, b ilateral breast biopsies, D&C, lumpectomy right breast 08/2021. Right mastectomy (11/26/21) Past Anesthesia/Blood Transfusion Reactions: No Reported Reaction, Motion Sickness Additional Past Anesthesia/Blood Transfusion Reaction / Comment(s): No hx blood transfusion. Date of Last Stent Placement:: 2008 Past Psychological History: Anxiety, Depression Smoking Status: Current every day smoker Past Alcohol Use History: None Reported Past Drug Use History: None Reported - Past Family History Father Family Medical History: No Reported History Mother Family Medical History: Cancer Additional Family Medical History / Comment(s): Breast and brain cancer. Medications and Allergies Home Medications Medication Instructions Recorded Confirmed Type Atorvastatin [Lipitor] 80 mg PO HS 08/02/20 07/15/22 History Apixaban [Eliquis] 5 mg PO BID #0 08/22/21 07/15/22 Rx Furosemide [Lasix] 20 mg PO BID 09/13/21 07/15/22 History Fluticasone/Umeclidin/Vilanter 1 puff INHALATION RT-DAILY PRN 11/01/21 07/15/22 History [Trelegy Ellipta 100-62.5-25] Letrozole [Femara] 2.5 mg PO DAILY 01/04/22 07/15/22 History lisinopriL [Zestril] 2.5 mg PO DAILY 01/04/22 07/15/22 History Albuterol Sulfate [Ventolin HFA] 1 puff INHALATION RT-Q4H PRN #1 01/15/22 07/15/22 Rx each ALPRAZolam [Xanax] 0.25 mg PO BID PRN 01/27/22 07/15/22 History Nitroglycerin Sl Tabs [Nitrostat] 0.4 mg SUBLINGUAL Q5M PRN 04/16/22 07/15/22 History Escitalopram Oxalate [Lexapro] 10 mg PO DAILY 07/15/22 07/15/22 History Gabapentin [Neurontin] 300 mg PO BID 07/15/22 07/15/22 History Metoprolol Tartrate [Lopressor] 75 mg PO BID 07/15/22 07/15/22 History Allergies Allergy/AdvReac Type Severity Reaction Status Date / Time sumatriptan [From Imitrex] AdvReac Chest Pain Verified 05/09/22 14:25 Physical Exam Vitals: Vital Signs Temp Pulse Resp BP Pulse Ox 07/16/22 07:33 71 16 150/86 94 L 07/16/22 06:55 72 16 149/66 94 L 07/16/22 06:00 71 16 94 L 07/16/22 05:38 98.4 F 72 16 144/90 95 07/16/22 05:00 72 16 138/59 97 07/16/22 04:00 74 16 98 07/16/22 01:22 63 18 134/61 92 L 07/15/22 23:00 68 18 119/59 95 07/15/22 22:10 70 16 156/84 07/15/22 20:17 16 07/15/22 19:22 97.3 F L 70 16 114/83 94 L 07/15/22 18:14 97 F L 79 20 159/78 92 L Intake and Output 07/15/22 07/16/22 07/16/22 22:59 06:59 14:59 Output Total 1750 Balance -1750 Output: Urine 1750 Uretheral (Tadeo) 1750 Other: Weight 117 kg Results CBC & Chem 7: 07/15/22 18:49 07/15/22 18:49 Labs: Abnormal Lab Results - Last 24 Hours (Table) 07/15/22 07/15/22 Range/Units 18:49 18:49 MCHC 30.3 L (31.0-37.0) g/dL RDW 17.0 H (11.5-15.5) % Chloride 97 L (98-107) mmol/L Carbon Dioxide 37 H (22-30) mmol/L
[2022-07-16] MEDS: SYMBICORT 80-4.5 MCG INHALER INHALATION SCH (19:44)
[2022-07-16] MEDS: IPRATROPIUM 0.5 MG/2.5 ML NEBU INHALATION SCH (19:45)
[2022-07-16 20:31] VITALS: RESP 16
[2022-07-16] MEDS ORDERED: ATORVASTATIN 80 MG TAB PO SCH (21:00)
[2022-07-16] MEDS: GABAPENTIN 300 MG CAP PO SCH (21:13)
[2022-07-16] MEDS: METOPROLOL TARTRATE 25 MG TAB PO SCH (21:13)
[2022-07-16] MEDS: APIXABAN 5 MG TAB PO SCH (21:13)
--- NOTE | 2022-07-16 23:25 | P.CRDCN ---
History of Present Illness History of present illness: HISTORY OF PRESENTING ILLNESS This is a pleasant 76-year-old female past medical history significant for paroxysmal atrial fibrillation on Eliquis, coronary artery disease s/p CABG 11/2020, multiple sclerosis, ischemic cardiomyopathy EF40-45%, history of LV thrombus, peripheral artery disease status post prior angioplasty, hypertension, dyslipidemia, former nicotine dependence, mitral regurgitation, obstructive sleep apnea, COPD, recent diagnosis of breast cancer status post lumpectomy 08/2021 and mastectomy 11/2021, previoius respiratory failure with mucous plugging involving the left mainstem bronchus with complete collapse of the left lung, requiring intubation. She follows in the office with Dr. Adame. She admits to being noncompliant with meds 2-3 weeks ago however recently in the last week has been taking them. In the last week however she has noticed increased VÁSQUEZ, orthopnea, and increased LE edema. She additionally has had erythema, pain and warmth of her LLE with skin changes concerning for cellulitis. Denies any chest pain or pressure. DIAGNOSTICS EKG reveals sinus rhythm, nonspecific ST depressions inferior and laterally Telemetry tracings indicate sinus rhythm REVIEW OF SYSTEMS At the time of my exam: CONSTITUTIONAL: Denies fever or chills. CARDIOVASCULAR: Denies chest pain, Reports shortness of breath, Denies orthopnea, PND or palpitations. RESPIRATORY: Denies cough. GASTROINTESTINAL: Denies abdominal pain, diarrhea, constipation, nausea or v omiting. MUSCULOSKELETAL: Denies myalgias. NEUROLOGIC: Denies numbness, tingling, headacbe or weakness. ENDOCRINE: Denies fatigue, weight change, polydipsia or polyurina. GENITOURINARY: Denies burning, hematuria or urgency with micturation. HEMATOLOGIC: +history of anemia or bleeding. PHYSICAL EXAMINATION Vitals reviewed CONSTITUTIONAL: No apparent distress. HEENT: Head is normocephalic. Pupils are equal, round. Sclerae anicteric. Mucous membranes of the mouth are moist. No JVD. No carotid bruit. CHEST EXAMINATION: Lungs are crackles in the bilateral bases to auscultation. No chest wall tenderness is noted on palpation or with deep breathing. HEART EXAMINATION: Regular rate and rhythm. S1, S2 heard. Systolic murmur heard at base and apex, No gallops or rub. ABDOMEN: Soft, nontender. Positive bowel sounds. EXTREMITIES: 2+ lower extremity edema and +LLE erythema NEUROLOGIC EXAMINATION: Patient is awake, alert and oriented x3. ASSESSMENT Acute on chronic systolic heart failure EF 40-45% LLE cellulitis Paroxysmal atrial fibrillationcurrently sinus rhythm Coronary artery disease s/p CABG 11/2020 History of Multiple sclerosis Ischemic cardiomyopathy History of LV thrombus Peripheral artery disease status post prior angioplasty Hypertension Dyslipidemia Former nicotine dependence Mitral regurgitation, mild to moderate Obstructive sleep apnea COPD Breast cancer status post lumpectomy 08/2021 and mastectomy 11/2021 PLAN Presentation consistent with heart failure which mainly appears related to medical noncompliance a few weeks ago. Continue diuretics and home heart failur e regimen. Antibiotics for LLE cellulitis per medicine. If LLE erythema not improving may consider ultrasound to rule out progression of PAD. Past Medical History Past Medical History: Atrial Fibrillation, Coronary Artery Disease (CAD), Cancer, Heart Failure, COPD, CVA/TIA, Hyperlipidemia, Hypertension, Mitral Valve Prolapse (MVP), Neurologic Disorder, Osteoarthritis (OA), Pneumonia, Skin Disorder, Sleep Apnea/CPAP/BIPAP, Vascular Disorder Additional Past Medical History / Comment(s): right breast cancer (mastectomy november 2021).,. Multiple Sclerosis. ,PAD hx chronic wounds left foot/lower leg now healed., states feet are red & purple in color, edema both feet., peripheral neuropathy., CVA x2 Jul/Aug 2021 gait unsteady-uses w/c., generalized weakness., hx anemia with iron infusions., hx hospitalization for collapsed lung and respiratory failure with intubation., states lump on her vocal cord.,. oxygen at 2.5-4 L prn, sleep apnea (no machine) History of Any Multi-Drug Resistant Organisms: None Reported Past Surgical History: Appendectomy, Breast Surgery, Coronary Bypass/CABG, Heart Catheterization With Stent, Orthopedic Surgery, Tonsillectomy Additional Past Surgical History / Comment(s): 08/17/21 surgery at [place] for mass upper back., 11/2020 CABG 4 vessel, PCI/stents in , bilateral iliac arthrectomy/stents ., left foot wound debridements, bronchoscopy/lavage, bilateral breast biopsies, D&C, lumpectomy right breast 08/2021. Right mastectomy (11/26/21) Past Anesthesia/Blood Transfusion Reactions: No Reported Reaction, Motion Sickness Additional Past Anesthesia/Blood Transfusion Reaction / Comment(s): No hx blood transfusion. Date of Last Stent Placement:: 2008 Past Psychological History: Anxiety, Depression Additional Psychological History / Comment(s): Pt's due to Covid beginning of August 2021. Smoking Status: Current every day smoker Past Alcohol Use History: None Reported Additional Past Alcohol Use History / Comment(s): smokes 1/2 ppd., started smoking 1960, quit may 2020 and restarted. Past Drug Use History: None Reported Additional Drug Use History / Comment(s): . - Past Family History Father Family Medical History: No Reported History Mother Family Medical History: Cancer Additional Family Medical History / Comment(s): Breast and brain cancer. Medications and Allergies Home Medications Medication Instructions Recorded Confirmed Type Atorvastatin [Lipitor] 80 mg PO HS 08/02/20 07/15/22 History Apixaban [Eliquis] 5 mg PO BID #0 08/22/21 07/15/22 Rx Furosemide [Lasix] 20 mg PO BID 09/13/21 07/15/22 History Fluticasone/Umeclidin/Vilanter 1 puff INHALATION RT-DAILY PRN 11/01/21 07/15/22 History [Trelegy Ellipta 100-62.5-25] Letrozole [Femara] 2.5 mg PO DAILY 01/04/22 07/15/22 History lisinopriL [Zestril] 2.5 mg PO DAILY 01/04/22 07/15/22 History Albuterol Sulfate [Ventolin HFA] 1 puff INHALATION RT-Q4H PRN #1 01/15/22 07/15/22 Rx each ALPRAZolam [Xanax] 0.25 mg PO BID PRN 01/27/22 07/15/22 History Nitroglycerin Sl Tabs [Nitrostat] 0.4 mg SUBLINGUAL Q5M PRN 04/16/22 07/15/22 History Escitalopram Oxalate [Lexapro] 10 mg PO DAILY 07/15/22 07/15/22 History Gabapentin [Neurontin] 300 mg PO BID 07/15/22 07/15/22 History Metoprolol Tartrate [Lopressor] 75 mg PO BID 07/15/22 07/15/22 History Allergies Allergy/AdvReac Type Severity Reaction Status Date / Time sumatriptan [From Imitrex] AdvReac Chest Pain Verified 05/09/22 14:25 Physical Exam Vitals: Vital Signs Temp Pulse Pulse Resp BP BP Pulse Ox 07/16/22 20:00 98.5 F 75 16 158/69 98 07/16/22 19:48 72 07/16/22 18:24 89 18 147/80 91 L 07/16/22 16:22 78 18 133/55 91 L 07/16/22 07:33 71 16 150/86 94 L 07/16/22 06:55 72 16 149/66 94 L 07/16/22 06:00 71 16 94 L 07/16/22 05:38 98.4 F 72 16 144/90 95 07/16/22 05:00 72 16 138/59 97 07/16/22 04:00 74 16 98 07/16/22 01:22 63 18 134/61 92 L Intake and Output 07/16/22 07/16/22 07/17/22 14:59 22:59 06:59 Output Total 700 Balance -700 Output: Urine 700 Other: Voiding Method Indwelling Catheter Weight 117 kg Results 07/15/22 18:49 07/15/22 18:49 Current Medications Generic Name Dose Route Start Last Admin Trade Name Freq PRN Reason Stop Dose Admin Hydrocodone Bitart/Acetaminophen 1 each 07/16/22 01:27 07/16/22 22:44 Hydrocodone/Apap 7.5-325mg 1 Each Tab PO 1 each Q6HR PRN Administration Pain Albuterol Sulfate 2.5 mg 07/16/22 11:25 Albuterol Nebulized 2.5 Mg/3 Ml INHALATION RT-Q4H PRN Shortness Of Breath Alprazolam 0.25 mg 07/16/22 11:25 Alprazolam 0.25 Mg Tab PO BID PRN Anxiety Apixaban 5 mg 07/16/22 21:00 07/16/22 21:13 Apixaban 5 Mg Tab PO 5 mg BID MARY ANNE Administration Protocol Atorvastatin Calcium 80 mg 07/16/22 21:00 07/16/22 21:13 Atorvastatin 80 Mg Tab PO 80 mg HS MARY ANNE Administration Budesonide/Formoterol Fumarate 2 puff 07/16/22 20:00 07/16/22 19:44 Symbicort 80-4.5 Mcg Inhaler INHALATION 2 puff RT-BID MARY ANNE Administration Escitalopram Oxalate 10 mg 07/17/22 09:00 Escitalopram 10 Mg Tab PO DAILY MARY ANNE Furosemide 40 mg 07/16/22 21:00 07/16/22 21:12 Furosemide 10 Mg/Ml 4 Ml Vial IV 40 mg BID MARY ANNE Administration Gabapentin 300 mg 07/16/22 21:00 07/16/22 21:13 Gabapentin 300 Mg Cap PO 300 mg BID MARY ANNE Administration Ipratropium [place] 0.5 mg 07/16/22 20:00 07/16/22 19:45 Ipratropium 0.5 Mg/2.5 Ml Nebu INHALATION 0.5 mg RT-QID MARY ANNE Administration Letrozole 2.5 mg 07/17/22 09:00 Letrozole 2.5 Mg Tab PO DAILY [facility] Lisinopril 5 mg 07/17/22 09:00 Lisinopril 5 Mg Tab PO DAILY [facility] Metoprolol Tartrate 75 mg 07/16/22 21:00 07/16/22 21:13 Metoprolol Tartrate 25 Mg Tab PO 75 mg BID MARY ANNE Administration Nitroglycerin 0.4 mg 07/16/22 11:25 Nitroglycerin Sl Tabs 0.4 Mg Tab SUBLINGUAL Q5M PRN Chest Pain Intake and Output 07/16/22 07/16/22 07/17/22 14:59 22:59 06:59 Output Total 700 Balance -700 Output: Urine 700 Other: Voiding Method Indwelling Catheter Weight 117 kg Patient Weight 07/17/22 06:59 Weight 117 kg 07/15/22 18:49 07/15/22 18:49
[2022-07-17 08:05] LABS: Calcium 8.4 mg/dL (8.4-10.2); Magnesium 1.9 mg/dL (1.6-2.3); Potassium 3.7 mmol/L (3.5-5.1)
[2022-07-17] MEDS: SYMBICORT 80-4.5 MCG INHALER INHALATION SCH (08:21)
[2022-07-17] MEDS: IPRATROPIUM 0.5 MG/2.5 ML NEBU INHALATION SCH ×3 (08:21→15:47)
[2022-07-17] MEDS ORDERED: ESCITALOPRAM 10 MG TAB PO SCH (09:00)
[2022-07-17] MEDS ORDERED: LETROZOLE 2.5 MG TAB PO SCH (09:00)
[2022-07-17] MEDS ORDERED: lisinopriL 5 MG TAB PO SCH (09:00)
[2022-07-17] MEDS: HYDROcodone/APAP 7.5-325MG 1 EACH TAB PO PRN (10:29)
[2022-07-17] MEDS: METOPROLOL TARTRATE 25 MG TAB PO SCH (10:30)
[2022-07-17] MEDS: APIXABAN 5 MG TAB PO SCH (10:31)
[2022-07-17] MEDS: FUROSEMIDE 10 MG/ML 4 ML VIAL IV SCH (10:31)
[2022-07-17] MEDS: GABAPENTIN 300 MG CAP PO SCH (10:31)
--- NOTE | 2022-07-17 11:52 | P.PN ---
Subjective HISTORY OF PRESENTING ILLNESS This is a pleasant 76-year-old female past medical history significant for paroxysmal atrial fibrillation on Eliquis, coronary artery disease s/p CABG 11/2020, multiple sclerosis, ischemic cardiomyopathy EF40-45%, history of LV thrombus, peripheral artery disease status post prior angioplasty, hypertension, dyslipidemia, former nicotine dependence, mitral regurgitation, obstructive sleep apnea, COPD, recent diagnosis of breast cancer status post lumpectomy 08/2021 and mastectomy 11/2021, previoius respiratory failure with mucous plugging involving the left mainstem bronchus with complete collapse of the left lung, requiring intubation. She follows in the office with Dr. Adame. She admits to being noncompliant with meds 2-3 weeks ago however recently in the last week has been taking them. In the last week however she has noticed increased VÁSQUEZ, orthopnea, and increased LE edema. She additionally has had erythema, pain and warmth of her LLE with skin changes concerning for cellulitis. Denies any chest pain or pressure. DIAGNOSTICS EKG reveals sinus rhythm, nonspecific ST depressions inferior and laterally Telemetry tracings indicate sinus rhythm 07/17 Patient seen and examined. She admits her lower extremity swelling is much better. She is somewhat anxious to go home. Has had good urine output with IV Lasix. Creatinine stable. Erythema somewhat improved on bilateral right greater than left lower extremity. PHYSICAL EXAMINATION Vitals reviewed CONSTITUTIONAL: No apparent distress. HEENT: Head is normocephalic. Pupils are equal, round. Sclerae anicteric. Mucous membranes of the mouth are moist. No JVD. No carotid bruit. CHEST EXAMINATION: Lungs are crackles in the bilateral bases to auscultation. No chest wall tenderness is noted on palpation or with deep breathing. HEART EXAMINATION: Regular rate and rhythm. S1, S2 heard. Systolic murmur heard at base and apex, No gallops or rub. ABDOMEN: Soft, nontender. Positive bowel sounds. EXTREMITIES: 2+ lower extremity edema and +LLE erythema NEUROLOGIC EXAMINATION: Patient is awake, alert and oriented x3. ASSESSMENT Acute on chronic systolic heart failure EF 40-45% LLE cellulitis Paroxysmal atrial fibrillationcurrently sinus rhythm Coronary artery disease s/p CABG 11/2020 History of Multiple sclerosis Ischemic cardiomyopathy History of LV thrombus Peripheral artery disease status post prior angioplasty Hypertension Dyslipidemia Former nicotine dependence Mitral regurgitation, mild to moderate Obstructive sleep apnea COPD Breast cancer status post lumpectomy 08/2021 and mastectomy 11/2021 PLAN Appears to be improving significantly with diuresis. She still does have some edema however and discussed prior likelihood of readmission if not properly diuresis. Would recommend another 24 hours of diuretics. Likely discharge home tomorrow. Objective - Vital Signs Vital signs: Vital Signs Temp 97.7 F 07/17/22 09:15 Pulse 68 07/17/22 09:15 Resp 16 07/17/22 09:15 BP 190/70 07/17/22 09:15 Pulse Ox 98 07/17/22 09:15 FiO2 Intake & Output 07/16/22 07/17/22 07/17/22 18:59 06:59 18:59 Intake Total 240 Output Total 1150 Balance -1150 240 Weight 51.5 kg Intake: Oral 240 Output: Urine 1150 Other: Voiding Method Indwelling Catheter - Labs CBC & Chem 7: 07/15/22 18:49 07/17/22 07:30 Labs: Abnormal Lab Results - Last 24 Hours (Table) 07/17/22 Range/Units 07:30 Carbon Dioxide 39 H (22-30) mmol/L BUN 21 H (7-17) mg/dL
[2022-07-17] MEDS ORDERED: POTASSIUM CHLORIDE ER 20 MEQ TAB.ER PO STA (13:22)
[2022-07-17 13:27] VITALS: BMI 23.7
[2022-07-17 15:17] VITALS: BP 127/60; TEMP 97.7
[2022-07-17 15:59] VITALS: PULSE 72
== END 2022-07-17 18:23 | disposition home health service (06) | DRG 291 ==
LOC: EC 18:12 → 3SCARD 22:12
PROVIDERS: ADMIT Hospitalist; ATTEND Hospitalist
DX: I11.0 Hypertensive heart disease with heart failure (principal); I50.23 Acute on chronic systolic (congestive) heart failure; J98.11 Atelectasis; L03.116 Cellulitis of left lower limb; S80.11XA Contusion of right lower leg, initial encounter; J44.9 Chronic obstructive pulmonary disease, unspecified; I48.0 Paroxysmal atrial fibrillation; I73.9 Peripheral vascular disease, unspecified; G35 Multiple sclerosis; I25.10 Atherosclerotic heart disease of native coronary artery without angina pectoris; R33.9 Retention of urine, unspecified; E78.5 Hyperlipidemia, unspecified; I34.1 Nonrheumatic mitral (valve) prolapse; G62.9 Polyneuropathy, unspecified; I87.8 Other specified disorders of veins; D50.9 Iron deficiency anemia, unspecified; M19.90 Unspecified osteoarthritis, unspecified site; F32.A Depression, unspecified; F41.9 Anxiety disorder, unspecified; Z95.1 Presence of aortocoronary bypass graft; Z95.5 Presence of coronary angioplasty implant and graft; Z88.8 Allergy status to other drugs, medicaments and biological substances; Z79.01 Long term (current) use of anticoagulants; Z79.899 Other long term (current) drug therapy; Z79.811 Long term (current) use of aromatase inhibitors; Z90.711 Acquired absence of uterus with remaining cervical stump; Z86.73 Personal history of transient ischemic attack (TIA), and cerebral infarction without residual deficits; Z85.3 Personal history of malignant neoplasm of breast; Z87.01 Personal history of pneumonia (recurrent); Z80.8 Family history of malignant neoplasm of other organs or systems; Z80.3 Family history of malignant neoplasm of breast; G47.33 Obstructive sleep apnea (adult) (pediatric); I25.5 Ischemic cardiomyopathy; I34.0 Nonrheumatic mitral (valve) insufficiency; Z90.11 Acquired absence of right breast and nipple; Z91.14 Patient's other noncompliance with medication regimen
CPT/HCPCS: 36415; 71046; 80048; 80053; 83605; 83735; 83880; 85025; 85610; 85730; 93005; 94640; 94760; 96374; 96376; 99285

== ENCOUNTER 2022-08-01 16:51 | Inpatient (IN) | payer MEDICARE ==
[2022-08-01] MEDS ORDERED: LORazepam 2 MG/ML INJ IV STA (17:18)
[2022-08-01] MEDS ORDERED: DILTIAZEM DRIP BOLUS FROM BAG 1 MG SOLN IV ONE ×2 (17:18→19:48)
[2022-08-01] MEDS: DILTIAZEM 125 MG in SODIUM CHLORIDE 0.9% 100 ML IV SCH (17:34)
--- NOTE | 2022-08-01 17:51 | XR ---
EXAMINATION TYPE: XR chest 1V portable DATE OF EXAM: 08/01/2022 COMPARISON: 07/15/2022 HISTORY: Short of breath TECHNIQUE: FINDINGS: Heart is top normal in size. There is coarsening of the interstitial markings. No pleural f luid. There are no hilar masses. No obvious heart failure. There are chest leads. IMPRESSION: There are some interstitial infiltrates that could be interstitial pneumonia or pulmonary fibrosis and similar to old exam. No obvious heart failure.
[2022-08-01 17:52] LABS: Anisocytosis Slight; Basophils # (A) 0.1 k/uL (0-0.2); Basophils % (A) 1 %; Eosinophils % (A) 0 %; HCT 46.4 % (34.0-46.0); HGB 14.9 gm/dL (11.4-16.0); Hypochromasia Moderate; Lymphocytes # (A) 1.1 k/uL (1.0-4.8); Lymphocytes % (A) 7 %; MCH 30.8 pg (25.0-35.0); MCHC 32.1 g/dL (31.0-37.0); MCV 95.9 fL (80.0-100.0); Mean Platelet Volume 9.3; Monocytes # (A) 0.4 k/uL (0-1.0); Monocytes % (A) 3 %; Neutrophils # (A) 14.4 k/uL (1.3-7.7); Neutrophils % (A) 89 %; Platelet Count 190 k/uL (150-450); RBC 4.84 m/uL (3.80-5.40); RDW 16.9 % (11.5-15.5); WBC 16.1 k/uL (3.8-10.6)
[2022-08-01 18:08] LABS: ALT 21 U/L (4-34); AST 44 U/L (14-36); African American GFR (CKD) >90 (>60 ml/min/1.73 sqM); Alkaline Phosphatase 132 U/L (38-126); Anion Gap 14 mmol/L; Blood Urea Nitrogen 17 mg/dL (7-17); Calcium 9.2 mg/dL (8.4-10.2); Carbon Dioxide 24 mmol/L (22-30); Chloride 101 mmol/L (98-107); Glucose 149 mg/dL (74-99); Magnesium 1.7 mg/dL (1.6-2.3); Non-African American GFR(CKD) >90 (>60 ml/min/1.73 sqM); Sodium 139 mmol/L (137-145); Total Bilirubin 0.8 mg/dL (0.2-1.3); Total Protein 7.4 g/dL (6.3-8.2)
[2022-08-01 18:56] LABS: Potassium 4.1 mmol/L (3.5-5.1)
[2022-08-01 19:27] LABS: INR 1.1 (<1.2); Partial Thromboplastin Time 27.1 sec (22.0-30.0); Prothrombin Time 11.3 sec (9.0-12.0)
[2022-08-01] MEDS ORDERED: OSELTAMIVIR 75 MG CAP PO STA (20:06)
[2022-08-01] MEDS ORDERED: NALOXONE 0.4 MG/ML 1 ML VIAL IV PRN (21:16)
--- NOTE | 2022-08-01 21:16 | ED ---
SOB HPI - General Chief Complaint: Shortness of Breath Stated Complaint: CRISTA Time Seen by Provider: 08/01/22 16:55 Source: EMS Mode of arrival: EMS Limitations: physical limitation - History of Present Illness Initial Comments: 76-year-old female past medical history of A. fib on antiplatelet medication, congestive heart failure, COPD on 3 L home O2 who presents emergency room in respiratory distress. Patient called EMS for increased work of breathing which has been going on for the past 3 days. They found the patient to be wearing her 3 L of oxygen however she was saturating in the 70s. When they attempted to get the patient up and ambulate to the stretcher she dropped down into the 50s. She was placed on CPAP and brought into the hospital with improvement in her saturations up to 92%. She was given 125 of Solu-Medrol, 2 albuterol treatments with a Atrovent treatments. They also gave her a nitro and 4 baby aspirins. Patient denies any chest pain. Admits to a chronic cough without any sputum production. No fevers. No sick contacts. Admits to some increase in her lower extremity edema. Patient has been taking her blood thinner as directed without any missed doses. She has been intubated previously for her breathing. No othe r alleviating, precipitating or modifying factors - Related Data Home Medications Medication Instructions Recorded Confirmed Atorvastatin [Lipitor] 80 mg PO HS 08/02/20 08/01/22 Fluticasone/Umeclidin/Vilanter 1 puff INHALATION RT-DAILY PRN 11/01/21 08/01/22 [Trelegy Ellipta 100-62.5-25] Letrozole [Femara] 2.5 mg PO DAILY 01/04/22 08/01/22 Nitroglycerin Sl Tabs [Nitrostat] 0.4 mg SUBLINGUAL Q5M PRN 04/16/22 08/01/22 Escitalopram Oxalate [Lexapro] 10 mg PO DAILY 07/15/22 08/01/22 Gabapentin [Neurontin] 300 mg PO BID 07/15/22 08/01/22 Metoprolol Tartrate [Lopressor] 75 mg PO BID 07/15/22 08/01/22 HYDROcodone/APAP 7.5-325MG [[place] 1 tab PO Q6HR PRN 08/01/22 08/01/22 7.5-325] Previous Rx's Medication Instructions Recorded Apixaban [Eliquis] 5 mg PO BID #0 08/22/21 Potassium Chloride ER [K-Dur 20] 20 meq PO DAILY #30 tab 07/17/22 lisinopriL [Zestril] 10 mg PO DAILY 30 Days #60 tab 07/17/22 Albuterol Sulfate [Ventolin HFA] 1 puff INHALATION Q6H PRN #1 each 08/06/22 Furosemide [Lasix] 40 mg PO BID@0900,1600 #60 tab 08/06/22 cefUROXime axetiL [Ceftin] 500 mg PO BID 6 Days #3 tab 08/06/22 predniSONE 10 mg PO DIRECTED #40 tab 08/06/22 Allergies Allergy/AdvReac Type Severity Reaction Status Date / Time sumatriptan [From Imitrex] AdvReac Chest Pain Verified 08/01/22 18:56 Review of Systems ROS Statement: Those systems with pertinent positive or pertinent negative responses have been documented in the HPI. ROS Other: All systems not noted in ROS Statement are negative. Past Medical History Past Medical History: Atrial Fibrillation, Coronary Artery Disease (CAD), Cancer, Heart Failure, COPD, CVA/TIA, Hyperlipidemia, Hypertension, Mitral Valve Prolapse (MVP), Neurologic Disorder, Osteoarthritis (OA), Pneumonia, Skin Disorder, Sleep Apnea/CPAP/BIPAP, Vascular Disorder Additional Past Medical History / Comment(s): right breast cancer (mastectomy november 2021).,. Multiple Sclerosis. ,PAD hx chronic wounds left foot/lower leg now healed., states feet are red & purple in color, edema both feet., peripheral n europathy., CVA x2 Jul/Aug 2021 gait unsteady-uses w/c., generalized weakness., hx anemia with iron infusions., hx hospitalization for collapsed lung and respiratory failure with intubation., states lump on her vocal cord.,. oxygen at 2.5-4 L prn, sleep apnea (no machine) History of Any Multi-Drug Resistant Organisms: None Reported Past Surgical History: Appendectomy, Breast Surgery, Coronary Bypass/CABG, Heart Catheterization With Stent, Orthopedic Surgery, Tonsillectomy Additional Past Surgical History / Comment(s): 08/17/21 surgery at [facility] for mass upper back., 11/2020 CABG 4 vessel, PCI/stents in , bilateral iliac arthrectomy/stents ., left foot wound debridements, bronchoscopy/lavage, bilateral breast biopsies, D&C, lumpectomy right breast 08/2021. Right mastectomy (11/26/21) Past Anesthesia/Blood Transfusion Reactions: No Reported Reaction, Motion Sickness Additional Past Anesthesia/Blood Transfusion Reaction / Comment(s): No hx blood transfusion. Date of Last Stent Placement:: 2008 Past Psychological History: Anxiety, Depression Smoking Status: Current every day smoker Past Alcohol Use History: None Reported Past Drug Use History: None Reported - Past Family History Father Family Medical History: No Reported History Mother Family Medical History: Cancer Additional Family Medical History / Comment(s): Breast and brain cancer. General Exam Limitations: physical limitation General appearance: alert, anxious Head exam: Present: atraumatic, normocephalic, normal inspection Eye exam: Present: normal appearance, PERRL, EOMI. Absent: scleral icterus, conjunctival injection, periorbital swelling Respiratory exam: Present: respiratory distress, wheezes, accessory muscle use, decreased breath sounds Cardiovascular Exam: Present: tachycardia, irregular rhythm GI/Abdominal exam: Present: soft, normal bowel sounds. Absent: distended, tenderness, guarding, rebound, rigid Extremities exam: Present: pedal edema Neurological exam: Present: alert Psychiatric exam: Present: anxious Skin exam: Present: diaphoretic, pallor Course Vital Signs 08/01/22 08/01/22 08/01/22 16:52 16:58 17:03 Temperature 98.3 F Pulse Rate 172 H Respiratory 26 H 26 H Rate Blood Pressure 145/88 O2 Sat by Pulse 100 Oximetry Fraction of 35 Inspired Oxygen (FIO2) 08/01/22 08/01/22 08/01/22 17:36 18:58 19:44 Temperature Pulse Rate 161 H 160 H 152 H Respiratory 45 H 20 34 H Rate Blood Pressure 110/72 107/92 112/78 O2 Sat by Pulse 95 94 L 95 Oximetry Fraction of Inspired Oxygen (FIO2) 08/01/22 08/01/22 08/01/22 21:27 21:35 23:40 Temperature Pulse Rate Respiratory Rate Blood Pressure O2 Sat by Pulse Oximetry Fraction of 35 40 40 Inspired Oxygen (FIO2) 08/02/22 08/02/22 08/02/22 00:47 03:43 05:00 Temperature Pulse Rate 124 H 125 H Respiratory 22 30 H Rate Blood Pressure 98/87 98/58 O2 Sat by Pulse 96 97 Oximetry Fraction of 40 Inspired Oxygen (FIO2) 08/02/22 08/02/22 08/02/22 06:43 09:33 11:20 Temperature Pulse Rate 122 H 96 Respiratory 20 Rate Blood Pressure 119/75 O2 Sat by Pulse 97 Oximetry Fraction of 40 40 Inspired Oxygen (FIO2) 08/02/22 08/02/22 08/02/22 11:29 11:32 15:42 Temperature Pulse Rate 105 H 96 105 H Respiratory 27 H Rate Blood Pressure 109/64 O2 Sat by Pulse 97 Oximetry Fraction of 40 Inspired Oxygen (FIO2) 08/02/22 15:52 Temperature Pulse Rate 104 H Respiratory Rate Blood Pressure O2 Sat by Pulse Oximetry Fraction of Inspired Oxygen (FIO2) Medical Decision Making - Medical Decision Making Was pt. sent in by a medical professional or institution? no Did you speak to anyone other than the patient for history? EMS Did you review nursing and triage notes? yes and I agree Were old charts reviewed? previous admissions, old EKG Differential Diagnosis? MDM Differential Dyspnea: Coronary syndrome, arrhythmia, tamponade, asthma, COPD, pulmonary embolism, pneumonia, pneumothorax, pulmonary effusion, anaphylaxis, diabetic ketoacidosis, flailed chest, pulmonary contusion, diaphragmatic rupture, anemia, neuromuscular this is not meant to be an all-inclusive list. EKG interpreted by me (3pts min.)? yes X-rays interpreted by me (1pt min.)? yes CT interpreted by me (1pt min.)? no U/S interpreted by me (1pt. min.)? no What testing was considered but not performed? (CT, X-rays, U/S, labs)? Why? none What meds were considered but not given? Why? none Did you discuss the management of the patient with other professionals? admitting physician Did you reconcile home meds? yes Was smoking cessation discussed for >3mins.? no Was critical care preformed (if so, how long)? yes 35 minutes for bipap management Were there social determinants of health that impacted care today? How? (Homelessness, low income, unemployed, alcoholism, drug addiction, transportation, low edu. Level, literacy, decrease access to med. care, retirement, rehab)? no Was there de-escalation of care discussed even if they declined? (Discuss DNR or withdrawal of care, Hospice)? no What co-morbidities impacted this encounter? (DM, HTN, Smoking, COPD, CAD, Cancer, CVA, Hep., AIDS, mental health diagnosis, sleep apnea, morbid obesity)? afib, htn, cancer, copd, heart failure, CAD Was patient admitted / discharged? @Upon arrival patient was promptly placed into trauma 1. A thorough history and physical exam was performed. She is switched to BiPAP. IV is established. Laboratory studies are conducted. Chest x-rays performed. Laboratory studies are reviewed. Troponin 0.075. BNP 10,000. Influenza A is positive. Chest x- ray demonstrates interstitial infiltrates that could be interstitial pneumonia o r pulmonary fibrosis similar to old exam. No heart failure. She does have rales on clinical exam. She was given a dose of Lasix. Patient also initiated on Tamiflu for her influenza. She remains on BiPAP. Gas obtained which demonstrates a CO2 of 48 and O2 of 58. FiO2 of 35 was increased to 40. Patient placed on a Cardizem drip for her rapid heart rates. Patient will be admitted. Spoke with [facility] who was agreeable to admit the patient. Cardiology and pulmonology placed on consult Undiagnosed new problem with uncertain prognosis? yes Drug Therapy requiring intensive monitoring for toxicity (Heparin, Nitro, Insulin, Cardizem)? cardizem Were any procedures done? abg Diagnosis/symptom? acute resp distress with bipap dependance Acute, or Chronic, or Acute on Chronic? acute Uncomplicated (without systemic symptoms) or Complicated (systemic symptoms)? complicated Side effects of treatment? none Exacerbation, Progression, or Severe Exacerbation] severe exacerbation Poses a threat to life or bodily function? yes Diagnosis/symptom? afib with rvr Acute, or Chronic, or Acute on Chronic? acute on chronic Uncomplicated (without systemic symptoms) or Complicated (systemic symptoms)? complicated Side effects of treatment? hypotension, bradycardia Exacerbation, Progression, or Severe Exacerbation] severe exacerbation Poses a threat to life or bodily function? yes Diagnosis/symptom? influenza A Acute, or Chronic, or Acute on Chronic? acute Uncomplicated (without systemic symptoms) or Complicated (systemic symptoms)? complicated Side effects of treatment? none Exacerbation, Progression, or Severe Exacerbation] no Poses a threat to life or bodily function? yes - Lab Data Result diagrams: 08/04/22 06:23 01/09/23 06:23 Lab Results 08/01/22 08/01/22 08/01/22 Range/Units 17:30 17:30 17:30 WBC 16.1 H (3.8-10.6) k/uL RBC 4.84 (3.80-5.40) m/uL Hgb 14.9 (11.4-16.0) gm/dL Hct 46.4 H (34.0-46.0) % MCV 95.9 (80.0-100.0) fL MCH 30.8 (25.0-35.0) pg MCHC 32.1 (31.0-37.0) g/dL RDW 16.9 H (11.5-15.5) % Plt Count 190 (150-450) k/uL MPV 9.3 Neutrophils % 89 % Lymphocytes % 7 % Monocytes % 3 % Eosinophils % 0 % Basophils % 1 % Neutrophils # 14.4 H (1.3-7.7) k/uL Lymphocytes # 1.1 (1.0-4.8) k/uL Monocytes # 0.4 (0-1.0) k/uL Eosinophils # 0.0 (0-0.7) k/uL Basophils # 0.1 (0-0.2) k/uL Manual Slide Review Performed Hypochromasia Moderate Anisocytosis Slight PT 11.3 (9.0-12.0) sec INR 1.1 (<1.2) APTT 27.1 (22.0-30.0) sec Sodium 139 (137-145) mmol/L Potassium 4.1 (3.5-5.1) mmol/L Chloride 101 (98-107) mmol/L Carbon Dioxide 24 (22-30) mmol/L Anion Gap 14 mmol/L BUN 17 (7-17) mg/dL Creatinine 0.55 (0.52-1.04) mg/dL Est GFR (CKD-EPI)AfAm >90 (>60 ml/min/1.73 sqM) Est GFR (CKD-EPI)NonAf >90 (>60 ml/min/1.73 sqM) Glucose 149 H (74-99) mg/dL Lactic Ac Sepsis Rflx Plasma Lactic Acid Harrison (0.7-2.0) mmol/L Calcium 9.2 (8.4-10.2) mg/dL Magnesium 1.7 (1.6-2.3) mg/dL Total Bilirubin 0.8 (0.2-1.3) mg/dL AST 44 H (14-36) U/L ALT 21 (4-34) U/L Alkaline Phosphatase 132 H (38-126) U/L Troponin I (0.000-0.034) ng/mL NT-Pro-B Natriuret Pep pg/mL Total Protein 7.4 (6.3-8.2) g/dL Albumin 4.0 (3.5-5.0) g/dL Influenza Type A (PCR) (Not Detectd) Influenza Type B (PCR) (Not Detectd) RSV (PCR) (Not Detectd) SARS-CoV-2 (PCR) (Not Detectd) 08/01/22 08/01/22 08/01/22 Range/Units 17:30 17:30 17:36 WBC (3.8-10.6) k/uL RBC (3.80-5.40) m/uL Hgb (11.4-16.0) gm/dL Hct (34.0-46.0) % MCV (80.0-100.0) fL MCH (25.0-35.0) pg MCHC (31.0-37.0) g/dL RDW (11.5-15.5) % Plt Count (150-450) k/uL MPV Neutrophils % % Lymphocytes % % Monocytes % % Eosinophils % % Basophils % % Neutrophils # (1.3-7.7) k/uL Lymphocytes # (1.0-4.8) k/uL Monocytes # (0-1.0) k/uL Eosinophils # (0-0.7) k/uL Basophils # (0-0.2) k/uL Manual Slide Review Hypochromasia Anisocytosis PT (9.0-12.0) sec INR (<1.2) APTT (22.0-30.0) sec Sodium (137-145) mmol/L Potassium (3.5-5.1) mmol/L Chloride (98-107) mmol/L Carbon Dioxide (22-30) mmol/L Anion Gap mmol/L BUN (7-17) mg/dL Creatinine (0.52-1.04) mg/dL Est GFR (CKD-EPI)AfAm (>60 ml/min/1.73 sqM) Est GFR (CKD-EPI)NonAf (>60 ml/min/1.73 sqM) Glucose (74-99) mg/dL Lactic Ac Sepsis Rflx Plasma Lactic Acid Harrison (0.7-2.0) mmol/L Calcium (8.4-10.2) mg/dL Magnesium (1.6-2.3) mg/dL Total Bilirubin (0.2-1.3) mg/dL AST (14-36) U/L ALT (4-34) U/L Alkaline Phosphatase (38-126) U/L Troponin I 0.075 H* (0.000-0.034) ng/mL NT-Pro-B Natriuret Pep 42455 pg/mL Total Protein (6.3-8.2) g/dL Albumin (3.5-5.0) g/dL Influenza Type A (PCR) Detected A (Not Detectd) Influenza Type B (PCR) Not Detected (Not Detectd) RSV (PCR) Not Detected (Not Detectd) SARS-CoV-2 (PCR) Not Detected (Not Detectd) 08/01/22 08/01/22 Range/Units 19:50 21:11 WBC (3.8-10.6) k/uL RBC (3.80-5.40) m/uL Hgb (11.4-16.0) gm/dL Hct (34.0-46.0) % MCV (80.0-100.0) fL MCH (25.0-35.0) pg MCHC (31.0-37.0) g/dL RDW (11.5-15.5) % Plt Count (150-450) k/uL MPV Neutrophils % % Lymphocytes % % Monocytes % % Eosinophils % % Basophils % % Neutrophils # (1.3-7.7) k/uL Lymphocytes # (1.0-4.8) k/uL Monocytes # (0-1.0) k/uL Eosinophils # (0-0.7) k/uL Basophils # (0-0.2) k/uL Manual Slide Review Hypochromasia Anisocytosis PT (9.0-12.0) sec INR (<1.2) APTT (22.0-30.0) sec Sodium (137-145) mmol/L Potassium (3.5-5.1) mmol/L Chloride (98-107) mmol/L Carbon Dioxide (22-30) mmol/L Anion Gap mmol/L BUN (7-17) mg/dL Creatinine (0.52-1.04) mg/dL Est GFR (CKD-EPI)AfAm (>60 ml/min/1.73 sqM) Est GFR (CKD-EPI)NonAf (>60 ml/min/1.73 sqM) Glucose (74-99) mg/dL Lactic Ac Sepsis Rflx Y Plasma Lactic Acid Harrison 2.3 H* (0.7-2.0) mmol/L Calcium (8.4-10.2) mg/dL Magnesium (1.6-2.3) mg/dL Total Bilirubin (0.2-1.3) mg/dL AST (14-36) U/L ALT (4-34) U/L Alkaline Phosphatase (38-126) U/L Troponin I (0.000-0.034) ng/mL NT-Pro-B Natriuret Pep pg/mL Total Protein (6.3-8.2) g/dL Albumin (3.5-5.0) g/dL Influenza Type A (PCR) (Not Detectd) Influenza Type B (PCR) (Not Detectd) RSV (PCR) (Not Detectd) SARS-CoV-2 (PCR) (Not Detectd) - EKG Data EKG Comments: EKG demonstrates A. fib with a rate of 182. QRS 80. QTC of 337. No acute ST segment elevations. Mild rate dependent ST depression Critical Care Time Critical Care Time: Yes Critical Care Time: 35 minutes Disposition Clinical Impression: Influenza A, BiPAP (biphasic positive airway pressure) dependence, Atrial fibrillation with RVR, Elevated troponin Disposition: ADMITTED IP TO THIS HOSP Condition: Serious Is patient prescribed a controlled substance at d/c from ED?: No Time of Disposition: 21:16 Decision to Admit Reason: Admit from EC Decision Date: 08/01/22 Decision Time: 21:16
[2022-08-01] MEDS ORDERED: FUROSEMIDE 10 MG/ML 10 ML VIAL IV STA (21:26)
[2022-08-01 21:31] LABS: ABG HCO3 28 mmol/L (21-25); ABG Oxygen Saturation 90.8 % (94-97); ABG PCO2 40 mmHg (35-45); ABG PH 7.45 (7.35-7.45); ABG TCO2 29 mmol/L (19-24); Allen Test Performed? Yes
[2022-08-01 21:33] LABS: ABG PO2 58 mmHg (83-108)
[2022-08-01] MEDS ORDERED: SYMBICORT 80-4.5 MCG INHALER INHALATION PRN (22:00)
[2022-08-02] MEDS: APIXABAN 5 MG TAB PO SCH ×3 (00:50→21:16)
[2022-08-02] MEDS: ATORVASTATIN 80 MG TAB PO SCH ×2 (00:50→21:16)
[2022-08-02] MEDS: methylPREDNISolone SOD SUCCI 40 MG/ML 1 ML VIAL IV SCH ×2 (00:50→09:59)
[2022-08-02] MEDS: GABAPENTIN 300 MG CAP PO SCH ×3 (00:50→21:16)
[2022-08-02 04:25] LABS: Anisocytosis Slight; Basophils # (A) 0.1 k/uL (0-0.2); Basophils % (A) 0 %; Eosinophils % (A) 0 %; HCT 42.7 % (34.0-46.0); HGB 13.7 gm/dL (11.4-16.0); Hypochromasia Slight; Lymphocytes # (A) 1.1 k/uL (1.0-4.8); Lymphocytes % (A) 7 %; MCH 30.8 pg (25.0-35.0); MCHC 32.1 g/dL (31.0-37.0); MCV 95.9 fL (80.0-100.0); Macrocytosis Slight; Mean Platelet Volume 9.5; Monocytes # (A) 0.3 k/uL (0-1.0); Monocytes % (A) 2 %; Neutrophils # (A) 12.9 k/uL (1.3-7.7); Neutrophils % (A) 88 %; Platelet Count 180 k/uL (150-450); RBC 4.45 m/uL (3.80-5.40); RDW 17.4 % (11.5-15.5); WBC 14.7 k/uL (3.8-10.6)
[2022-08-02 05:20] LABS: African American GFR (CKD) >90 (>60 ml/min/1.73 sqM); Anion Gap 9 mmol/L; Blood Urea Nitrogen 19 mg/dL (7-17); Calcium 9.2 mg/dL (8.4-10.2); Carbon Dioxide 29 mmol/L (22-30); Chloride 101 mmol/L (98-107); Glucose 135 mg/dL (74-99); Non-African American GFR(CKD) >90 (>60 ml/min/1.73 sqM); Potassium 3.7 mmol/L (3.5-5.1); Sodium 139 mmol/L (137-145)
[2022-08-02] MEDS ORDERED: IPRATROPIUM 0.5 MG/2.5 ML NEBU INHALATION SCH (08:00)
[2022-08-02] MEDS ORDERED: FUROSEMIDE 40 MG TAB PO SCH (09:00)
[2022-08-02] MEDS: OSELTAMIVIR 75 MG CAP PO SCH ×2 (09:23→21:44)
[2022-08-02] MEDS: HYDROcodone/APAP 7.5-325MG 1 EACH TAB PO PRN ×2 (09:57→18:56)
[2022-08-02] MEDS: LETROZOLE 2.5 MG TAB PO SCH (10:01)
--- NOTE | 2022-08-02 10:07 | P.CNPUL ---
History of Present Illness Consult date: 08/02/22 Reason for consult: dyspnea History of present illness: 76-year-old female patient that was admitted thru the emergency department for shortness of breath. Has extensive medical history including paroxysmal atrial fibrillation on Eliquis, LV thrombus, TIA, coronary artery disease with history of stenting and three-vessel coronary artery bypass in November 2020 and the left atrial appendage clipping, chronic congestive heart failure with systolic dysfunction, ischemic cardiomyopathy, mitral valve prolapse with previous surgery, hypertension, hyperlipidemia, previous episode of pneumonia, COPD, peripheral vascular disease with previous bilateral iliac arthrectomy and stent placement, breast cancer with history of right mastectomy currently on Femara. Patient also has history of multiple sclerosis, and obstructive sleep apnea without CPAP on outpatient basis. The patient has advanced COPD. The patient has started smoking cigarettes. She was in the hospital back in December 2021 for acute hypoxic/hypercapnic respiratory failure due to COPD exacerbation had mucus plugging involving left mainstem bronchus and complete collapse of the left lung. This was active uterine E. coli infection and the patient underwent bronchoscopy and a bronchial lavage and she required intubation mechanical ventilation and ultimately she recovers. During the course of her illness, she also suffered a acute non-ST segment elevation myocardial infarction. Noted the patient is known to have coronary artery disease, three-vessel bypass surgery in November 2020 was done and the patient has undergone previous stenting. She has ischemic cardiomyopathy. She was also maintained on oxygen at 3 L/m nasal cannula. She was living at home and she was still smoking 1 pack of cigarettes a day. During this current admission, the patient came into the emergency for worsening shortness of breath. She was found to be hypoxic at home with a pulse ox of 70% on 3 L of oxygen by nasal cannula. She attempted to get up and ambulate and she dropped even further down to the 50s. EMS arrived to the scene. The patient was placed on CPAP/BiPAP and the patient was brought in to the emergency. Here in the emergency, the patient is currently on a BiPAP at a pressure of 12/6 cm of water with FiO2 of 40%. She is in atrial fibrillation and slightly tachycardic in the heart disease ranging between 110 and 120. She was given bronchodilators and she was given steroids. Chest x-ray was done and there is some mild colovesical congestion. Small effusions. Increased interstitial markings. No airspace disease. He is awake and alert and she is communicating. While on her BiPAP she had a blood gas that showed a pH of 7.4 with a pCO2 of 40 and pO2 of 58 and this was on FiO2 of 35%. Lactic acid level was at 2.5. Troponins were elevated at 0.0 0.6 respectively. BUN is at 19 with a creatinine of 0.4. She has a chronic dry wound/ulcer over the anterior aspect of the right lower extremity. It is unstageable as the patient has a necrotic eschar coverin g the wounds. She also has evidence of chronic vascular insufficiency in the lower extremities and chronic cyanosis of diminished pulses. Note that the patient also tested positive for influenza A. Covid 19 testing was negative. RSV was negative. Past Medical History Past Medical History: Atrial Fibrillation, Coronary Artery Disease (CAD), Cancer, Heart Failure, COPD, CVA/TIA, Hyperlipidemia, Hypertension, Mitral Valve Prolapse (MVP), Neurologic Disorder, Osteoarthritis (OA), Pneumonia, Skin Disorder, Sleep Apnea/CPAP/BIPAP, Vascular Disorder Additional Past Medical History / Comment(s): right breast cancer (mastectomy november 2021).,. Multiple Sclerosis. ,PAD hx chronic wounds left foot/lower leg now healed., states feet are red & purple in color, edema both feet., peripheral neuropathy., CVA x2 Jul/Aug 2021 gait unsteady-uses w/c., generalized weakness., hx anemia with iron infusions., hx hospitalization for collapsed lung and respiratory failure with intubation., states lump on her vocal cord.,. oxygen at 2.5-4 L prn, sleep apnea (no machine) History of Any Multi-Drug Resistant Organisms: None Reported Past Surgical History: Appendectomy, Breast Surgery, Coronary Bypass/CABG, Heart Catheterization With Stent, Orthopedic Surgery, Tonsillectomy Additional Past Surgical History / Comment(s): 08/17/21 surgery at [facility] for mass upper back., 11/2020 CABG 4 vessel, PCI/stents in , bilateral iliac arthrectomy/stents ., left foot wound debridements, bronchoscopy/lavage, bilateral breast biopsies, D&C, lumpectomy right breast 08/2021. Right mastectomy (11/26/21) Past Anesthesia/Blood Transfusion Reactions: No Reported Reaction, Motion Sickness Additional Past Anesthesia/Blood Transfusion Reaction / Comment(s): No hx blood transfusion. Date of Last Stent Placement:: 2008 Past Psychological History: Anxiety, Depression Smoking Status: Current every day smoker Past Alcohol Use History: None Reported Past Drug Use History: None Reported - Past Family History Father Family Medical History: No Reported History Mother Family Medical History: Cancer Additional Family Medical History / Comment(s): Breast and brain cancer. Medications and Allergies Home Medications Medication Instructions Recorded Confirmed Type Atorvastatin [Lipitor] 80 mg PO HS 08/02/20 08/01/22 History Apixaban [Eliquis] 5 mg PO BID #0 08/22/21 08/01/22 Rx Fluticasone/Umeclidin/Vilanter 1 puff INHALATION RT-DAILY PRN 11/01/21 08/01/22 History [Trelegy Ellipta 100-62.5-25] Letrozole [Femara] 2.5 mg PO DAILY 01/04/22 08/01/22 History Albuterol Sulfate [Ventolin HFA] 1 puff INHALATION RT-Q4H PRN #1 01/15/22 08/01/22 Rx each ALPRAZolam [Xanax] 0.25 mg PO BID PRN 01/27/22 08/01/22 History Nitroglycerin Sl Tabs [Nitrostat] 0.4 mg SUBLINGUAL Q5M PRN 04/16/22 08/01/22 History Escitalopram Oxalate [Lexapro] 10 mg PO DAILY 07/15/22 08/01/22 History Gabapentin [Neurontin] 300 mg PO BID 07/15/22 08/01/22 History Metoprolol Tartrate [Lopressor] 75 mg PO BID 07/15/22 08/01/22 History Furosemide [Lasix] 40 mg PO BID 30 Days #120 tab 07/17/22 08/01/22 Rx Potassium Chloride ER [K-Dur 20] 20 meq PO DAILY #30 tab 07/17/22 08/01/22 Rx lisinopriL [Zestril] 10 mg PO DAILY 30 Days #60 tab 07/17/22 08/01/22 Rx HYDROcodone/APAP 7.5-325MG [[place] 1 tab PO Q6HR PRN 08/01/22 08/01/22 History 7.5-325] Allergies Allergy/AdvReac Type Severity Reaction Status Date / Time sumatriptan [From Imitrex] AdvReac Chest Pain Verified 08/01/22 18:56 Physical Exam Vitals: Vital Signs Temp Pulse Resp BP Pulse Ox FiO2 08/02/22 09:33 40 08/02/22 06:43 122 H 20 119/75 97 08/02/22 05:00 40 08/02/22 03:43 125 H 30 H 98/58 97 08/02/22 00:47 124 H 22 98/87 96 08/01/22 23:40 40 08/01/22 21:35 40 08/01/22 21:27 35 08/01/22 19:44 152 H 34 H 112/78 95 08/01/22 18:58 160 H 20 107/92 94 L 08/01/22 17:36 161 H 45 H 110/72 95 08/01/22 17:03 35 08/01/22 16:58 26 H 08/01/22 16:52 98.3 F 172 H 26 H 145/88 100 Intake and Output 08/01/22 08/02/22 08/02/22 22:59 06:59 14:59 Intake Total 11.083 Balance 11.083 Intake: Intake, IV Titration 11.083 Amount Diltiazem 125 mg In 11.083 Sodium Chloride 0.9% 100 ml @ 5 MG/HR 5 mls/hr IV .Q24H [facility] Rx#:[id number] Other: Weight 47.627 kg Patient is currently extubated on BiPAP at a pressure of 12/6 cm of water, he'll tachypneic and short of breath and actively bronchospastic and wheezy Head exam was generally normal. There was no scleral icterus or corneal arcus. Mucous membranes were moist. Neck was supple and without jugular venous distension, thyromegaly, or carotid bruits. Carotids were easily palpable bilaterally. There was no adenopathy. The patient has a right IJ [place]-Richar catheter in place along with a Cordis. Orotracheal and orogastric tube are both in place. Lungs sounds are diminished bilaterally and the patient is actively b ronchospastic and wheezy and diminished breath sounds on she has crackles in lung bases bilaterally Cardiac exam revealed the PMI to be normally situated and sized. The rhythm was regular and no extrasystoles were noted during several minutes of auscultation. The first and second heart sounds were normal and physiologic splitting of the second heart sound was noted. There were no murmurs, rubs, clicks, or gallops. Abdominal exam revealed normal bowel sounds. The abdomen was soft, non-tender, and without masses, organomegaly, or appreciable enlargement of the abdominal aorta. Extremities are showing diminished pulses. There is no cyanosis or clubbing. There is some mottling in the left thigh. Patient is known to have chronic vascular disease and lower extremities and the pulses are obviously diminished in all 4 extremities. Neurologically the patient is sedated and she is calm and comfortable. Pupils are equal and reactive to light. She is arousable. She is following simple commands. Psychiatric evaluation cannot be done. Examination of the skin revealed no evidence of significant rashes, suspicious appearing nevi or other concerning lesions. In unstageable wound in the anter ior aspect of the right lower extremity with a large dried up eschar covering the wound. Pulses are diminished in lower oximetry is bilaterally Results - Laboratory Findings CBC and BMP: 08/02/22 03:30 08/02/22 03:30 ABG ABG pH 7.45 (7.35-7.45) 08/01/22 21:27 ABG pCO2 40 mmHg (35-45) 08/01/22 21:27 ABG pO2 58 mmHg (83-108) L* 08/01/22 21:27 ABG O2 Saturation 90.8 % (94-97) L 08/01/22 21:27 PT/INR, D-dimer PT 11.3 sec (9.0-12.0) 08/01/22 17:30 INR 1.1 (<1.2) 08/01/22 17:30 Abnormal lab findings: Abnormal Labs 08/01/22 08/01/22 08/01/22 17:30 17:30 17:30 WBC 16.1 H Hct 46.4 H RDW 16.9 H Neutrophils # 14.4 H ABG pO2 ABG HCO3 ABG Total CO2 ABG O2 Saturation BUN Creatinine Glucose 149 H Plasma Lactic Acid Harrison AST 44 H Alkaline Phosphatase 132 H Troponin I 0.075 H* Influenza Type A (PCR) 08/01/22 08/01/22 08/01/22 17:36 19:50 21:27 WBC Hct RDW Neutrophils # ABG pO2 58 L* ABG HCO3 28 H ABG Total CO2 29 H ABG O2 Saturation 90.8 L BUN Creatinine Glucose Plasma Lactic Acid Harrison 2.3 H* AST Alkaline Phosphatase Troponin I Influenza Type A (PCR) Detected A 08/01/22 08/01/22 08/02/22 22:00 23:10 03:30 WBC Hct RDW Neutrophils # ABG pO2 ABG HCO3 ABG Total CO2 ABG O2 Saturation BUN Creatinine Glucose Plasma Lactic Acid Harrison 2.5 H* AST Alkaline Phosphatase Troponin I 0.327 H* 0.612 H* Influenza Type A (PCR) 08/02/22 08/02/22 03:30 03:30 WBC 14.7 H Hct RDW 17.4 H Neutrophils # 12.9 H ABG pO2 ABG HCO3 ABG Total CO2 ABG O2 Saturation BUN 19 H Creatinine 0.49 L Glucose 135 H Plasma Lactic Acid Harrison AST Alkaline Phosphatase Troponin I Influenza Type A (PCR) Assessment and Plan Plan: Acute shortness of breath secondary to COPD exacerbation and influenza A infection Acute influenza A tracheobronchitis with secondary COPD exacerbation Acute on chronic hypoxic and hypercapnic respiratory failure, secondary to above, currently on BiPAP at a pressure of 12/6 cm of water Previous history of respiratory failure with E. coli pneumonia and left lung collapse requiring intubation, mechanical ventilation and bronchoscopy and this was in December 2020 Previous history of coronary artery disease. The patient has multivessel and the patient underwent three-vessel bypass surgery, off pump Troponin Leak secondary to above Acute on chronic systolic heart failure EF 40-45% Chronic atrial fibrillation with rapid ventricular response at this point in time secondary to above History of cardiac thrombus severe peripheral vascular disease, post bilateral iliac artery stenting and the patient has undergone previous left superficial femoral artery atherectomy , angioplasty and stenting. hypertension hyperlipidemia history of smoking COPD obstructive sleep apnea without CPAP therapy on outpatient basis history of multiple sclerosis history of recurrent cellulitis of the lower extremity and the patient has had previous nonhealing wounds, none for now. Plan Ideally, this patient will need ICU transfer. She is very ill and she has multiple medical problems and comorbidities. We'll try to get into the intensive care unit if possible today. Continue BiPAP support at a pressure of 12/6 with an FiO2 of 40% Check a pro-calcitonin level I'm going to start the patient on DuoNeb updrafts on the clock every 4 hours IV Solu-Medrol 60 mg every 6 hours Tamiflu 75 mg by mouth twice a day Lasix 40 mg IV every 12 hours continue anticoagulation with Eliquis
[2022-08-02] MEDS ORDERED: NITROGLYCERIN SL TABS 0.4 MG TAB SUBLINGUAL PRN (10:48)
[2022-08-02] MEDS ORDERED: ALBUTEROL NEBULIZED 2.5 MG/3 ML INHALATION PRN (10:48)
[2022-08-02] MEDS: IPRATROPIUM-ALBUTEROL 3 ML NEB INHALATION SCH ×3 (11:20→20:43)
[2022-08-02] MEDS: methylPREDNISolone SOD SUCCI 125 MG/2 ML VIAL IV SCH ×3 (11:40→22:46)
--- NOTE | 2022-08-02 14:44 | P.CRDCN ---
History of Present Illness Consult date: 08/02/22 Reason for Consult (text): Elevated troponins History of present illness: This is Joel Carballo NP, I'm dictating on behalf of Dr. Armijo's H&P and A&P The patient was interviewed and examined. HPI: Patient is a 76-year-old female who presented to the hospital with significant shortness of breath. Patient was brought into the ER by EMS and immediately placed on BiPAP due to significant hypoxia. Patient is positive for influenza A. We were consulted due to elevated troponins. History is difficult to obtain due to the patient needing BIPAP mask. Patient has a history of congestive heart failure, as well as COPD and atrial fibrillation. Patient's heart rates were significantly elevated upon admission, and she was placed on a Cardizem drip. This is currently running at 10 mg an hour. ROS: [No fever, chills, or rigors] [Positive for cough, phlegm, and expectoration] [no nausea, vomiting, or diarrhea] [no hematuria, dysuria] [no musculoskelatal complaints] [no strokes or seizures] [no skin lesions] EXAMINATION: GENERAL: Well-appearing, well-nourished and in no acute distress. NECK: Supple without JVD or thyromegaly. LUNGS: Breath sounds demonstrate rales bilaterally. Respiration equal and unlabored on BiPAP. No wheezes or rhonchi. HEART: Irregular rate and rhythm without murmurs, rubs or gallops. S1 and S2 heard. EXTREMITIES: Normal range of motion, mild edema. No clubbing, positive for cyanosis in the bilateral feet. Peripheral pulses intact and weak. REVIEW OF LABS, ECG & MEDICAL DATA: LABS: White count 14.7, hemoglobin 13.7, platelets 180, arterial blood gas-pH 7.45, CO2 40, O2 58, HCO3 28; sodium 139, potassium 3.7, B1 19, creatinine 0.49, lactic acid 2.5, troponin 0.327, 0.612 EKG: Atrial fibrillation with rapid ventricular response IMAGING: Chest x-ray dated 08/01/2022 demonstrates some interstitial infiltrates that could be interstitial pneumonia or pulmonary fibrosis and similar to old e xam, no obvious heart failure. VITALS: Temp 98.3, heart rate 122, respirations 20, blood pressure 119/75, O2 saturation 97% on BiPAP at 40% FiO2 IMPRESSION: 1. Influenza A 2. Acute exacerbation of COPD 3. Demand ischemia 4. Atrial fibrillation with RVR PLAN: Continue Cardizem at 10, do not change the rate. Once breathing improves, may switch to oral Cardizem. Continue Eliquis. Troponin elevations are due to ischemic demand. Further recommendations based on the patient's clinical course. Thank you for the consult and allowing us to participate in the care of this patient. Past Medical History Past Medical History: Atrial Fibrillation, Coronary Artery Disease (CAD), Cancer, Heart Failure, COPD, CVA/TIA, Hyperlipidemia, Hypertension, Mitral Valve Prolapse (MVP), Neurologic Disorder, Osteoarthritis (OA), Pneumonia, Skin Disorder, Sleep Apnea/CPAP/BIPAP, Vascular Disorder Additional Past Medical History / Comment(s): right breast cancer (mastectomy november 2021).,. Multiple Sclerosis. ,PAD hx chronic wounds left foot/lower leg now healed., states feet are red & purple in color, edema both feet., peripheral neuropathy., CVA x2 Jul/Aug 2021 gait unsteady-uses w/c., generalized weakness., hx anemia with iron infusions., hx hospitalization for collapsed lung and respiratory failure with intubation., states lump on her vocal cord.,. oxygen at 2.5-4 L prn, sleep apnea (no machine) History of Any Multi-Drug Resistant Organisms: None Reported Past Surgical History: Appendectomy, Breast Surgery, Coronary Bypass/CABG, Heart Catheterization With Stent, Orthopedic Surgery, Tonsillectomy Additional Past Surgical History / Comment(s): 08/17/21 surgery at [place] for mass upper back., 11/2020 CABG 4 vessel, PCI/stents in , bilateral iliac arthrectomy/stents ., left foot wound debridements, bronchoscopy/lavage, bilateral breast biopsies, D&C, lumpectomy right breast 08/2021. Right mastectomy (11/26/21) Past Anesthesia/Blood Transfusion Reactions: No Reported Reaction, Motion Sickness Additional Past Anesthesia/Blood Transfusion Reaction / Comment(s): No hx blood transfusion. Date of Last Stent Placement:: 2008 Past Psychological History: Anxiety, Depression Smoking Status: Current every day smoker Past Alcohol Use History: None Reported Past Drug Use History: None Reported - Past Family History Father Family Medical History: No Reported History Mother Family Medical History: Cancer Additional Family Medical History / Comment(s): Breast and brain cancer. Medications and Allergies Home Medications Medication Instructions Recorded Confirmed Type Atorvastatin [Lipitor] 80 mg PO HS 08/02/20 08/01/22 History Apixaban [Eliquis] 5 mg PO BID #0 08/22/21 08/01/22 Rx Fluticasone/Umeclidin/Vilanter 1 puff INHALATION RT-DAILY PRN 11/01/21 08/01/22 History [Trelegy Ellipta 100-62.5-25] Letrozole [Femara] 2.5 mg PO DAILY 01/04/22 08/01/22 History Albuterol Sulfate [Ventolin HFA] 1 puff INHALATION RT-Q4H PRN #1 01/15/22 08/01/22 Rx each ALPRAZolam [Xanax] 0.25 mg PO BID PRN 01/27/22 08/01/22 History Nitroglycerin Sl Tabs [Nitrostat] 0.4 mg SUBLINGUAL Q5M PRN 04/16/22 08/01/22 History Escitalopram Oxalate [Lexapro] 10 mg PO DAILY 07/15/22 08/01/22 History Gabapentin [Neurontin] 300 mg PO BID 07/15/22 08/01/22 History Metoprolol Tartrate [Lopressor] 75 mg PO BID 07/15/22 08/01/22 History Furosemide [Lasix] 40 mg PO BID 30 Days #120 tab 07/17/22 08/01/22 Rx Potassium Chloride ER [K-Dur 20] 20 meq PO DAILY #30 tab 07/17/22 08/01/22 Rx lisinopriL [Zestril] 10 mg PO DAILY 30 Days #60 tab 07/17/22 08/01/22 Rx HYDROcodone/APAP 7.5-325MG [[place] 1 tab PO Q6HR PRN 08/01/22 08/01/22 History 7.5-325] Allergies Allergy/AdvReac Type Severity Reaction Status Date / Time sumatriptan [From Imitrex] AdvReac Chest Pain Verified 08/01/22 18:56 Physical Exam Vitals: Vital Signs Temp Pulse Resp BP Pulse Ox FiO2 08/02/22 11:29 105 H 27 H 109/64 97 08/02/22 11:20 40 08/02/22 09:33 40 08/02/22 06:43 122 H 20 119/75 97 08/02/22 05:00 40 08/02/22 03:43 125 H 30 H 98/58 97 08/02/22 00:47 124 H 22 98/87 96 08/01/22 23:40 40 08/01/22 21:35 40 08/01/22 21:27 35 08/01/22 19:44 152 H 34 H 112/78 95 08/01/22 18:58 160 H 20 107/92 94 L 08/01/22 17:36 161 H 45 H 110/72 95 08/01/22 17:03 35 08/01/22 16:58 26 H 08/01/22 16:52 98.3 F 172 H 26 H 145/88 100 Intake and Output 08/01/22 08/02/22 08/02/22 22:59 06:59 14:59 Intake Total 11.083 Balance 11.083 Intake: Intake, IV Titration 11.083 Amount Diltiazem 125 mg In 11.083 Sodium Chloride 0.9% 100 ml @ 5 MG/HR 5 mls/hr IV .Q24H [facility] Rx#:[id number] Other: Weight 47.627 kg Results 08/02/22 03:30 08/02/22 03:30 Cardiac Enzymes 08/01/22 08/01/22 08/01/22 Range/Units 17:30 17:30 22:00 AST 44 H (14-36) U/L Troponin I 0.075 H* 0.327 H* (0.000-0.034) ng/mL 08/02/22 Range/Units 03:30 AST (14-36) U/L Troponin I 0.612 H* (0.000-0.034) ng/mL Coagulation 08/01/22 Range/Units 17:30 PT 11.3 (9.0-12.0) sec APTT 27.1 (22.0-30.0) sec CBC 08/01/22 08/02/22 Range/Units 17:30 03:30 WBC 16.1 H 14.7 H (3.8-10.6) k/uL RBC 4.84 4.45 (3.80-5.40) m/uL Hgb 14.9 13.7 (11.4-16.0) gm/dL Hct 46.4 H 42.7 (34.0-46.0) % Plt Count 190 180 (150-450) k/uL Comprehensive Metabolic Panel 08/01/22 08/02/22 Range/Units 17:30 03:30 Sodium 139 139 (137-145) mmol/L Potassium 4.1 3.7 (3.5-5.1) mmol/L Chloride 101 101 (98-107) mmol/L Carbon Dioxide 24 29 (22-30) mmol/L BUN 17 19 H (7-17) mg/dL Creatinine 0.55 0.49 L (0.52-1.04) mg/dL Glucose 149 H 135 H (74-99) mg/dL Calcium 9.2 9.2 (8.4-10.2) mg/dL AST 44 H (14-36) U/L ALT 21 (4-34) U/L Alkaline Phosphatase 132 H (38-126) U/L Total Protein 7.4 (6.3-8.2) g/dL Albumin 4.0 (3.5-5.0) g/dL Current Medications Generic Name Dose Route Start Last Admin Trade Name Freq PRN Reason Stop Dose Admin Hydrocodone Bitart/Acetaminophen 1 each 08/01/22 21:23 08/02/22 09:57 Hydrocodone/Apap 7.5-325mg 1 Each Tab PO 1 each Q6HR PRN Administration Pain Albuterol Sulfate 2.5 mg 08/02/22 10:48 Albuterol Nebulized 2.5 Mg/3 Ml INHALATION RT-Q4H PRN Shortness Of Breath Albuterol/Ipratropium 3 ml 08/02/22 12:00 08/02/22 11:20 Ipratropium-Albuterol 3 Ml Neb INHALATION 3 ml RT-QID MARY ANNE Administration Alprazolam 0.25 mg 08/01/22 21:23 Alprazolam 0.25 Mg Tab PO BID PRN Anxiety Apixaban 5 mg 08/01/22 21:30 08/02/22 09:23 Apixaban 5 Mg Tab PO 5 mg BID MARY ANNE Administration Protocol Atorvastatin Calcium 80 mg 08/01/22 21:30 08/02/22 00:50 Atorvastatin 80 Mg Tab PO 80 mg HS MARY ANNE Administration Budesonide 0.5 mg 08/02/22 20:00 Budesonide 0.5 Mg/2 Ml Nebu INHALATION RT-BID [facility] Escitalopram Oxalate 10 mg 08/03/22 09:00 Escitalopram 10 Mg Tab PO DAILY [facility] Formoterol Fumarate 20 mcg 08/02/22 20:00 Formoterol Fumarate 20 Mcg/2 Ml Nebu INHALATION RT-BID MARY ANNE Furosemide 40 mg 08/02/22 21:00 Furosemide 10 Mg/Ml 4 Ml Vial IV Q12HR MARY ANNE Gabapentin 300 mg 08/01/22 21:30 08/02/22 09:24 Gabapentin 300 Mg Cap PO 300 mg BID MARY ANNE Administration Diltiazem HCl 125 mg/ Sodium 125 mls @ 5 mls/hr 08/01/22 17:30 08/01/22 19:47 Chloride IV 10 mg/hr .Q24H [facility] ANNE 10 mls/hr Infusion 5 MG/HR Ceftriaxone Sodium 1 gm/ 50 mls @ 100 mls/hr 08/02/22 10:15 08/02/22 11:40 Sodium Chloride IVPB 100 mls/hr Q24HR MARY ANNE Administration Protocol Letrozole 2.5 mg 08/02/22 09:00 08/02/22 10:01 Letrozole 2.5 Mg Tab PO 2.5 mg DAILY MARY ANNE Administration Methylprednisolone Sodium Succinate 60 mg 08/02/22 11:00 08/02/22 11:40 Methylprednisolone Sod Succi 125 Mg/2 Ml Vial IV 60 mg Q6H [facility] ANNE Administration Naloxone HCl 0.2 mg 08/01/22 21:16 Naloxone 0.4 Mg/Ml 1 Ml Vial IV Q2M PRN Opioid Reversal Nitroglycerin 0.4 mg 08/02/22 10:48 Nitroglycerin Sl Tabs 0.4 Mg Tab SUBLINGUAL Q5M PRN Chest Pain Oseltamivir Phosphate 75 mg 08/02/22 09:00 08/02/22 09:23 Oseltamivir 75 Mg Cap PO 08/06/22 21:01 75 mg Q12HR MARY ANNE Administration Protocol Intake and Output 08/01/22 08/02/22 08/02/22 22:59 06:59 14:59 Intake Total 11.083 Balance 11.083 Intake: Intake, IV Titration 11.083 Amount Diltiazem 125 mg In 11.083 Sodium Chloride 0.9% 100 ml @ 5 MG/HR 5 mls/hr IV .Q24H [facility] Rx#:[id number] Other: Weight 47.627 kg 08/02/22 03:30 08/02/22 03:30
[2022-08-02 17:26] LABS: Glucose,Whole Blood 148 mg/dL (70-110)
--- NOTE | 2022-08-02 18:19 | P.HPIM ---
History of Present Illness H&P Date: 08/02/22 Chief Complaint: Shortness of Breath 76-year-old female past medical history of A. fib on antiplatelet medication, congestive heart failure, COPD on 3 L home O2 who presents emergency room in respiratory distress. Patient called EMS for increased worker breathing which has been going on for the past 3 days. They found the patient to be wearing her 3 L of oxygen however she was saturating in the 70s. When they attempted to get the patient up and ambulate to the stretcher she dropped down into the 50s. She was placed on CPAP and brought into the hospital with improvement in her saturations up to 92%. She was given 125 of Solu-Medrol, 2 albuterol treatments with a Atrovent treatments. They also gave her a nitro and 4 baby aspirins. Patient denies any chest pain. Admits to a chronic cough without any sputum production. No fevers. No sick contacts. Admits to some increase in her lower extremity edema. Patient has been taking her blood thinner as directed without any missed doses. She has been intubated previously for her breathing. 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 VITALS: Temp 98.3, heart rate 122, respirations 20, blood pressure 119/75, O2 saturation 97% on BiPAP at 40% FiO2 Review of Systems REVIEW OF SYSTEMS: CONSTITUTIONAL: No fever, no malaise, no fatigue. HEENT: No recent visual problems or hearing problems. Denied any sore throat. CARDIOVASCULAR: No chest pain, orthopnea, PND, no palpitations, no syncope. PULMONARY: No shortness of breath, no cough, no hemoptysis. GASTROINTESTINAL: No diarrhea, no nausea, no vomiting, no abdominal pain. NEUROLOGICAL: No headaches, no weakness, no numbness. HEMATOLOGICAL: Denies any bleeding or petechiae. GENITOURINARY: Denies any burning micturition, frequency, or urgency. MUSCULOSKELETAL/RHEUMATOLOGICAL: Denies any joint pain, swelling, or any muscle pain. ENDOCRINE: Denies any polyuria or polydipsia. The rest of the 14-point review of systems is negative. Past Medical History Past Medical History: Atrial Fibrillation, Coronary Artery Disease (CAD), Cancer, Heart Failure, COPD, CVA/TIA, Hyperlipidemia, Hypertension, Mitral Valve Prolapse (MVP), Neurologic Disorder, Osteoarthritis (OA), Pneumonia, Skin Disorder, Sleep Apnea/CPAP/BIPAP, Vascular Disorder Additional Past Medical History / Comment(s): right breast cancer (mastectomy november 2021).,. Multiple Sclerosis. ,PAD hx chronic wounds left foot/lower leg now healed., states feet are red & purple in color, edema both feet., peripheral neuropathy., CVA x2 Jul/Aug 2021 gait unsteady-uses w/c., generalized weakness., hx anemia with iron infusions., hx hospitalization for collapsed lung and respiratory failure with intubation., states lump on her vocal cord.,. oxygen at 2.5-4 L prn, sleep apnea (no machine) History of Any Multi-Drug Resistant Organisms: None Reported Past Surgical History: Appendectomy, Breast Surgery, Coronary Bypass/CABG, Heart Catheterization With Stent, Orthopedic Surgery, Tonsillectomy Additional Past Surgical History / Comment(s): 08/17/21 surgery at [place] for mass upper back., 11/2020 CABG 4 vessel, PCI/stents in , bilateral iliac arthrectomy/stents ., left foot wound debridements, bronchoscopy/lavage, bilateral breast biopsies, D&C, lumpectomy right breast 08/2021. Right mastectomy (11/26/21) Past Anesthesia/Blood Transfusion Reactions: No Reported Reaction, Motion Sickness Additional Past Anesthesia/Blood Transfusion Reaction / Comment(s): No hx blood transfusion. Date of Last Stent Placement:: 2008 Past Psychological History: Anxiety, Depression Smoking Status: Current every day smoker Past Alcohol Use History: None Reported Past Drug Use History: None Reported - Past Family History Father Family Medical History: No Reported History Mother Family Medical History: Cancer Additional Family Medical History / Comment(s): Breast and brain cancer. Medications and Allergies Home Medications Medication Instructions Recorded Confirmed Type Atorvastatin [Lipitor] 80 mg PO HS 08/02/20 08/01/22 History Apixaban [Eliquis] 5 mg PO BID #0 08/22/21 08/01/22 Rx Fluticasone/Umeclidin/Vilanter 1 puff INHALATION RT-DAILY PRN 11/01/21 08/01/22 History [Trelegy Ellipta 100-62.5-25] Letrozole [Femara] 2.5 mg PO DAILY 01/04/22 08/01/22 History Albuterol Sulfate [Ventolin HFA] 1 puff INHALATION RT-Q4H PRN #1 01/15/22 08/01/22 Rx each ALPRAZolam [Xanax] 0.25 mg PO BID PRN 01/27/22 08/01/22 History Nitroglycerin Sl Tabs [Nitrostat] 0.4 mg SUBLINGUAL Q5M PRN 04/16/22 08/01/22 History Escitalopram Oxalate [Lexapro] 10 mg PO DAILY 07/15/22 08/01/22 History Gabapentin [Neurontin] 300 mg PO BID 07/15/22 08/01/22 History Metoprolol Tartrate [Lopressor] 75 mg PO BID 07/15/22 08/01/22 History Furosemide [Lasix] 40 mg PO BID 30 Days #120 tab 07/17/22 08/01/22 Rx Potassium Chloride ER [K-Dur 20] 20 meq PO DAILY #30 tab 07/17/22 08/01/22 Rx lisinopriL [Zestril] 10 mg PO DAILY 30 Days #60 tab 07/17/22 08/01/22 Rx HYDROcodone/APAP 7.5-325MG [Perry 1 tab PO Q6HR PRN 08/01/22 08/01/22 History 7.5-325] Allergies Allergy/AdvReac Type Severity Reaction Status Date / Time sumatriptan [From Imitrex] AdvReac Chest Pain Verified 08/01/22 18:56 Physical Exam Vitals: Vital Signs Temp Pulse Resp BP Pulse Ox FiO2 08/02/22 09:33 40 08/02/22 06:43 122 H 20 119/75 97 08/02/22 05:00 40 08/02/22 03:43 125 H 30 H 98/58 97 08/02/22 00:47 124 H 22 98/87 96 08/01/22 23:40 40 08/01/22 21:35 40 08/01/22 21:27 35 08/01/22 19:44 152 H 34 H 112/78 95 08/01/22 18:58 160 H 20 107/92 94 L 08/01/22 17:36 161 H 45 H 110/72 95 08/01/22 17:03 35 08/01/22 16:58 26 H 08/01/22 16:52 98.3 F 172 H 26 H 145/88 100 Intake and Output 08/01/22 08/02/22 08/02/22 22:59 06:59 14:59 Intake Total 11.083 Balance 11.083 Intake: Intake, IV Titration 11.083 Amount Diltiazem 125 mg In 11.083 Sodium Chloride 0.9% 100 ml @ 5 MG/HR 5 mls/hr IV .Q24H [facility] Rx#:[id number] Other: Weight 47.627 kg GENERAL: Well-appearing, well-nourished and in no acute distress. NECK: Supple without JVD or thyromegaly. LUNGS: Breath sounds demonstrate rales bilaterally. Respiration equal and unlabored on BiPAP. No wheezes or rhonchi. HEART: Irregular rate and rhythm without murmurs, rubs or gallops. S1 and S2 heard. EXTREMITIES: Normal range of motion, mild edema. No clubbing, positive for cyanosis in the bilateral feet. Peripheral pulses intact and weak. Results CBC & Chem 7: 08/02/22 03:30 08/02/22 03:30 Labs: Abnormal Lab Results - Last 24 Hours (Table) 08/01/22 08/01/22 08/01/22 Range/Units 17:30 17:30 17:30 WBC 16.1 H (3.8-10.6) k/uL Hct 46.4 H (34.0-46.0) % RDW 16.9 H (11.5-15.5) % Neutrophils # 14.4 H (1.3-7.7) k/uL ABG pO2 (83-108) mmHg ABG HCO3 (21-25) mmol/L ABG Total CO2 (19-24) mmol/L ABG O2 Saturation (94-97) % BUN (7-17) mg/dL Creatinine (0.52-1.04) mg/dL Glucose 149 H (74-99) mg/dL Plasma Lactic Acid Harrison (0.7-2.0) mmol/L AST 44 H (14-36) U/L Alkaline Phosphatase 132 H (38-126) U/L Troponin I 0.075 H* (0.000-0.034) ng/mL Influenza Type A (PCR) (Not Detectd) 08/01/22 08/01/22 08/01/22 Range/Units 17:36 19:50 21:27 WBC (3.8-10.6) k/uL Hct (34.0-46.0) % RDW (11.5-15.5) % Neutrophils # (1.3-7.7) k/uL ABG pO2 58 L* (83-108) mmHg ABG HCO3 28 H (21-25) mmol/L ABG Total CO2 29 H (19-24) mmol/L ABG O2 Saturation 90.8 L (94-97) % BUN (7-17) mg/dL Creatinine (0.52-1.04) mg/dL Glucose (74-99) mg/dL Plasma Lactic Acid Harrison 2.3 H* (0.7-2.0) mmol/L AST (14-36) U/L Alkaline Phosphatase (38-126) U/L Troponin I (0.000-0.034) ng/mL Influenza Type A (PCR) Detected A (Not Detectd) 08/01/22 08/01/22 08/02/22 Range/Units 22:00 23:10 03:30 WBC (3.8-10.6) k/uL Hct (34.0-46.0) % RDW (11.5-15.5) % Neutrophils # (1.3-7.7) k/uL ABG pO2 (83-108) mmHg ABG HCO3 (21-25) mmol/L ABG Total CO2 (19-24) mmol/L ABG O2 Saturation (94-97) % BUN (7-17) mg/dL Creatinine (0.52-1.04) mg/dL Glucose (74-99) mg/dL Plasma Lactic Acid Harrison 2.5 H* (0.7-2.0) mmol/L AST (14-36) U/L Alkaline Phosphatase (38-126) U/L Troponin I 0.327 H* 0.612 H* (0.000-0.034) ng/mL Influenza Type A (PCR) (Not Detectd) 08/02/22 08/02/22 Range/Units 03:30 03:30 WBC 14.7 H (3.8-10.6) k/uL Hct (34.0-46.0) % RDW 17.4 H (11.5-15.5) % Neutrophils # 12.9 H (1.3-7.7) k/uL ABG pO2 (83-108) mmHg ABG HCO3 (21-25) mmol/L ABG Total CO2 (19-24) mmol/L ABG O2 Saturation (94-97) % BUN 19 H (7-17) mg/dL Creatinine 0.49 L (0.52-1.04) mg/dL Glucose 135 H (74-99) mg/dL Plasma Lactic Acid Harrison (0.7-2.0) mmol/L AST (14-36) U/L Alkaline Phosphatase (38-126) U/L Troponin I (0.000-0.034) ng/mL Influenza Type A (PCR) (Not Detectd) Assessment and Plan Assessment: 1. Acute influenza A tracheobronchitis with secondary COPD exacerbation - Patient has been admitted to ICU; has been placed on IV Solu-Medrol 60 mg every 6 hours; bronchodilator nebulizer treatments 4 times a day and when necessary; Pulmicort nebulizer treatments twice a day - Patient has been placed on Tamiflu 75 mg by mouth twice a day - Ceftriaxone 1 g IV daily 2. Acute on chronic hypoxic and hypercapnic respiratory failure -- currently on BiPAP at a pressure of 12/6 cm of water at an FiO2 of 40% - Patient has been placed on steroid and bronchodilator nebulizer treatments 4 times a day and when necessary 3. 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 History of coronary artery disease. The patient has multivessel and the patient underwent three-vessel bypass surgery, off pump 4. Elevated Troponin Leak secondary to above; we will monitor EKG and trend troponin 5. Acute on chronic systolic heart failure EF 40-45% - Lasix 40 mg IV every 12 hours; we will monitor strict MIKEY's, daily weights, renal function and electrolytes along with low-salt and fluid restricted diet 6. Chronic atrial fibrillation with rapid ventricular response; likely related to hypoxic respiratory failure resulting from influenza A infection and COPD exacerbation - Patient remains on IV Cardizem infusion at a rate of 5 mg per hour -- continue anticoagulation with Eliquis 7. Severe peripheral vascular disease, post bilateral iliac artery stenting and the patient has undergone previous left superficial femoral artery atherectomy , angioplasty and stenting. 8. Hypertension; patient takes lisinopril and metoprolol at home which has been placed on hold; blood pressure currently stable on IV Cardizem infusion 9. Hyperlipidemia; Lipitor 80 mg by mouth daily at bedtime 10. Obstructive sleep apnea without CPAP therapy on outpatient basis; patient is currently on BiPAP DVT prophylaxis; SCDs/systemic anticoagulation CODE STATUS; full code
[2022-08-02] MEDS: ALPRAZolam 0.25 MG TAB PO PRN (18:56)
[2022-08-02] MEDS: BUDESONIDE 0.5 MG/2 ML NEBU INHALATION SCH (20:43)
[2022-08-02] MEDS: FORMOTEROL FUMARATE 20 MCG/2 ML NEBU INHALATION SCH (20:43)
[2022-08-02] MEDS: DILTIAZEM 125 MG in SODIUM CHLORIDE 0.9% 100 ML IV SCH (21:09)
[2022-08-02] MEDS: FUROSEMIDE 10 MG/ML 4 ML VIAL IV SCH (21:17)
[2022-08-03] MEDS: HYDROcodone/APAP 7.5-325MG 1 EACH TAB PO PRN ×2 (00:48→15:52)
[2022-08-03 01:16] LABS: Glucose,Whole Blood 175 mg/dL (70-110)
[2022-08-03] MEDS: methylPREDNISolone SOD SUCCI 125 MG/2 ML VIAL IV SCH ×4 (05:24→23:09)
[2022-08-03] MEDS: DILTIAZEM 125 MG in SODIUM CHLORIDE 0.9% 100 ML IV SCH (05:54)
[2022-08-03 06:08] LABS: Anisocytosis Slight; HGB 13.1 gm/dL (11.4-16.0); Hypochromasia Slight; MCH 31.2 pg (25.0-35.0); MCHC 32.6 g/dL (31.0-37.0); MCV 95.8 fL (80.0-100.0); Mean Platelet Volume 9.6; Platelet Count 179 k/uL (150-450); RBC 4.18 m/uL (3.80-5.40); RDW 16.9 % (11.5-15.5); WBC 13.6 k/uL (3.8-10.6)
[2022-08-03 06:27] LABS: Potassium 3.4 mmol/L (3.5-5.1)
[2022-08-03 06:28] LABS: African American GFR (CKD) >90 (>60 ml/min/1.73 sqM); Anion Gap 6 mmol/L; Blood Urea Nitrogen 32 mg/dL (7-17); Calcium 9.2 mg/dL (8.4-10.2); Carbon Dioxide 31 mmol/L (22-30); Chloride 99 mmol/L (98-107); Glucose 142 mg/dL (74-99); Non-African American GFR(CKD) 86 (>60 ml/min/1.73 sqM); Sodium 136 mmol/L (137-145)
[2022-08-03] MEDS ORDERED: Potassium Replacement Protocol 1 EACH MISC MISCELLANE PRN ×2 (07:14→09:48)
--- NOTE | 2022-08-03 07:14 | P.PN ---
Subjective Progress Note Date: 08/03/22 76-year-old female patient that was admitted thru the emergency department for shortness of breath. Has extensive medical history including paroxysmal atrial fibrillation on Eliquis, LV thrombus, TIA, coronary artery disease with history of stenting and three-vessel coronary artery bypass in November 2020 and the left atrial appendage clipping, chronic congestive heart failure with systolic dysfunction, ischemic cardiomyopathy, mitral valve prolapse with previous surgery, hypertension, hyperlipidemia, previous episode of pneumonia, COPD, peripheral vascular disease with previous bilateral iliac arthrectomy and stent placement, breast cancer with history of right mastectomy currently on Femara. Patient also has history of multiple sclerosis, and obstructive sleep apnea without CPAP on outpatient basis. The patient has advanced COPD. The patient has started smoking cigarettes. She was in the hospital back in December 2021 for acute hypoxic/hypercapnic respiratory failure due to COPD exacerbation had mucus plugging involving left mainstem bronchus and complete collapse of the left lung. This was active uterine E. coli infection and the patient underwent bronchoscopy and a bronchial lavage and she required intubation mechanical ventilation and ultimately she recovers. During the course of her illness, she also suffered a acute non-ST segment elevation myocardial infarction. Noted the patient is known to have coronary artery disease, three-vessel bypass surgery in November 2020 was done and the patient has undergone previous stenting. She has ischemic cardiomyopathy. She was also maintained on oxygen at 3 L/m nasal cannula. She was living at home and she was still smoking 1 pack of cigarettes a day. During this current admission, the patient came into the emergency for worsening shortness of breath. She was found to be hypoxic at home with a pulse ox of 70% on 3 L of oxygen by nasal cannula. She attempted to get up and ambulate and she dropped even further down to the 50s. EMS arrived to the scene. The patient was placed on CPAP/BiPAP and the patient was brought in to the emergency. Here in the emergency, the patient is currently on a BiPAP at a pressure of 12/6 cm of water with FiO2 of 40%. She is in atrial fibrillation and slightly tachycardic in the heart disease ranging between 110 and 120. She was given bronchodilators and she was given steroids. Chest x-ray was done and there is some mild pulmonary congestion. Small effusions. Increased interstitial markings. No airspace disease. He is awake and alert and she is communicating. While on her BiPAP she had a blood gas that showed a pH of 7.4 with a pCO2 of 40 and pO2 of 58 and this was on FiO2 of 35%. Lactic acid level was at 2.5. Troponins were elevated at 0.0 0.6 respectively. BUN is at 19 with a creatinine of 0.4. She has a chronic dry wound/ulcer over the anterior aspect of the right lower extremity. It is unstageable as the patient has a necrotic eschar covering the wounds. She also has evidence of chronic vascular insufficiency in the lower extremities and chronic cyanosis of diminished pulses. Note that the patient also tested positive for influenza A. Covid 19 testing was negative. RSV was negative. On 08/03/2022, the patient seems to much more comfortable compared to yesterday. I saw this patient in emergency department yesterday with significant respiratory distress. At that time she was diagnosed having influenza A tracheobronchitis and secondary COPD and CHF exacerbation. Immediately, the patient was placed on a BiPAP. She was subjected to Tamiflu. She was given diuretics patient was given bronchodilators and steroids. Overnight, she took off the BiPAP. She was already getting better and this morning she is on 4 L of oxygen by nasal cannula. She seems to be comfortable in her pulse ox is around 93%. The patient is receiving bronchodilators right now and she is on DuoNeb nebulized treatments [id number]. She is also on IV Solu-Medrol 60 mg every 6 hours. She is on Tamiflu 75 mg by mouth twice a day. She also was found to have elevated pro-calcitonin level and she was started on empiric antibiotic coverage with IV Rocephin. She is receiving Lasix 40 mg IV every 12 hours and she is achieving a negative fluid balance. On today's evaluation, cardiac rhythm is atrial fibrillation and rate is other better control. She remains on Cardizem drip at 5 mg and hour and was being titrated for her blood pressure control. She takes and coagulation with Eliquis 5 mg by mouth twice a day which has been resumed. She is also on metoprolol on outpatient basis at a dose of 75 mg by mouth twice a day. No chest pain. No angina. Pulses of the lower extremities are diminished. They're obtainable by Doppler signals. Most recent BP is 113/68. Vascular surgery has been consulted regarding her diminished pulses in lower extremities and the wound that essentially unstageable with a large eschar covering the surface of the wound and this wound is located in the anterior aspect of the right lower extremity. There is no evidence of any surrounding cellulitis at this point in time. Tadeo catheter is in place. The patient was seen by cardiology. Alert and awake and oriented. Following commands and answering questions appropriately. Repeat chest x-ray from today is showing pulmonary vascular congestion and CHF and cardiomegaly. Objective - Vital Signs Vital signs: Vital Signs Temp 97.3 F L 08/03/22 00:00 Pulse 112 H 08/03/22 06:00 Resp 13 08/03/22 06:00 BP 113/68 08/03/22 06:00 Pulse Ox 92 L 08/03/22 06:00 FiO2 40 08/02/22 15:42 Intake & Output 08/02/22 08/03/22 08/03/22 18:59 06:59 18:59 Intake Total 113.917 287.5 Output Total 470 Balance 113.917 -182.5 Weight 50.7 kg Intake: Intake, IV Titration 113.917 87.5 Amount Diltiazem 125 mg In 113.917 87.5 Sodium Chloride 0.9% 100 ml @ 5 MG/HR 5 mls/hr IV .Q24H [facility] Rx#:[id number] Oral 200 Output: Urine 470 Other: Voiding Method Indwelling Catheter - Exam Patient is currently calm and comfortable on 4 L of oxygen by nasal cannula, and the BiPAP was discontinued yesterday Head exam was generally normal. There was no scleral icterus or corneal arcus. Mucous membranes were moist. Neck was supple and without jugular venous distension, thyromegaly, or carotid bruits. Carotids were easily palpable bilaterally. There was no adenopathy. Cardiac exam revealed the PMI to be normally situated and sized. The rhythm was regular and no extrasystoles were noted during several minutes of auscultation. The first and second heart sounds were normal and physiologic splitting of the second heart sound was noted. There were no murmurs, rubs, clicks, or gallops. Abdominal exam revealed normal bowel sounds. The abdomen was soft, non-tender, and without masses, organomegaly, or appreciable enlargement of the abdominal aorta. Extremities are showing diminished pulses. There is no cyanosis or clubbing. There is some mottling in the left thigh. Patient is known to have chronic vascular disease and lower extremities and the pulses are obviously diminished in all 4 extremities. Neurologically the patient is sedated and she is calm and comfortable. Pupils are equal and reactive to light. She is arousable. She is following simple commands. Psychiatric evaluation cannot be done. Examination of the skin revealed no evidence of significant rashes, suspicious appearing nevi or other concerning lesions. In unstageable wound in the anterior aspect of the right lower extremity with a large dried up eschar covering the wound. Pulses are diminished in lower extremities bilaterally and the patient has Doppler signals in the wound remains unchanged. - Labs CBC & Chem 7: 08/03/22 05:41 08/03/22 05:41 Labs: Abnormal Lab Results - Last 24 Hours (Table) 08/02/22 08/02/22 08/03/22 Range/Units 03:30 17:24 01:14 WBC (3.8-10.6) k/uL RDW (11.5-15.5) % Sodium (137-145) mmol/L Potassium (3.5-5.1) mmol/L Carbon Dioxide (22-30) mmol/L BUN (7-17) mg/dL Glucose (74-99) mg/dL POC Glucose (mg/dL) 148 H 175 H (70-110) mg/dL Procalcitonin 1.59 H (0.02-0.09) ng/mL 08/03/22 08/03/22 Range/Units 05:41 05:41 WBC 13.6 H (3.8-10.6) k/uL RDW 16.9 H (11.5-15.5) % Sodium 136 L (137-145) mmol/L Potassium 3.4 L (3.5-5.1) mmol/L Carbon Dioxide 31 H (22-30) mmol/L BUN 32 H (7-17) mg/dL Glucose 142 H (74-99) mg/dL POC Glucose (mg/dL) (70-110) mg/dL Procalcitonin (0.02-0.09) ng/mL Assessment and Plan Plan: Acute shortness of breath secondary to COPD exacerbation and influenza A infection, improving Acute influenza A tracheobronchitis with secondary COPD exacerbation, improving Acute on chronic hypoxic and hypercapnic respiratory failure, secondary to above, currently off BiPAP and the patient is currently on 4 L of oxygen by nasal cannula Previous history of respiratory failure with E. coli pneumonia and left lung collapse requiring intubation, mechanical ventilation and bronchoscopy and this was in December 2020 Previous history of coronary artery disease. The patient has multivessel and the patient underwent three-vessel bypass surgery, off pump Troponin Leak secondary to above Acute on chronic systolic heart failure EF 40-45% Chronic atrial fibrillation with rapid ventricular response at this point in time secondary to above, and the patient is currently on a Cardizem drip at 10 mg an hour History of cardiac thrombus severe peripheral vascular disease, post bilateral iliac artery stenting and the patient has undergone previous left superficial femoral artery atherectomy , ang ioplasty and stenting. hypertension hyperlipidemia history of smoking COPD obstructive sleep apnea without CPAP therapy on outpatient basis history of multiple sclerosis history of recurrent cellulitis of the lower extremity and the patient has had previous nonhealing wounds, none for now. Plan Keep the patient off BiPAP today Pro calcitonin level is elevated and we'll continue the IV Rocephin for now Continue Lasix 40 mg IV every 12 hours Continue Tamiflu Continue bronchodilators and IV Solu-Medrol Continue Cardizem drip and restart the patient on metoprolol 50 mg by mouth twice a day and gradually wean off the Cardizem drip. Continue Eliquis for long-term anticoagulants Condition is obviously improved since yesterday. Would advance diet. With proper the patient incentive spirometer. She is quite debilitated and she'll be kept in ICU for another 24 hours.
--- NOTE | 2022-08-03 07:24 | XR ---
EXAMINATION TYPE: XR chest 1V portable DATE OF EXAM: 08/03/2022 5:23 AM COMPARISON: Chest radiograph from two days prior. TECHNIQUE: XR chest 1V portable Portable AP radiograph of the chest. CLINICAL INDICATION:Female, 76 years old with history of Short of breath; FINDINGS: Lungs/Pleura: Similar multifocal airspace opacities. No evidence of pneumothorax or pleural effusion. Pulmonary vascularity: Unremarkable. Heart/mediastinum: Cardiomediastinal silhouette is unremarkable. Atherosclerotic calcifications are seen in the aorta. Left atrial appendage occlusion device is present. Musculoskeletal: No acute osseous pathology. Surgical clips project over the mediastinum. IMPRESSION: Similar multifocal airspace opacities.
[2022-08-03] MEDS: IPRATROPIUM-ALBUTEROL 3 ML NEB INHALATION SCH ×4 (07:46→19:15)
[2022-08-03] MEDS: FORMOTEROL FUMARATE 20 MCG/2 ML NEBU INHALATION SCH ×2 (07:46→19:26)
[2022-08-03] MEDS: BUDESONIDE 0.5 MG/2 ML NEBU INHALATION SCH ×2 (07:46→19:15)
[2022-08-03] MEDS: APIXABAN 5 MG TAB PO SCH ×2 (08:48→20:29)
[2022-08-03] MEDS: GABAPENTIN 300 MG CAP PO SCH ×2 (08:48→20:29)
[2022-08-03] MEDS: ESCITALOPRAM 10 MG TAB PO SCH (08:50)
[2022-08-03] MEDS: LETROZOLE 2.5 MG TAB PO SCH (08:50)
[2022-08-03] MEDS: FUROSEMIDE 10 MG/ML 4 ML VIAL IV SCH ×2 (08:50→20:36)
[2022-08-03] MEDS: OSELTAMIVIR 75 MG CAP PO SCH (08:51)
[2022-08-03] MEDS ORDERED: METOPROLOL TARTRATE 50 MG TAB PO SCH (09:00)
[2022-08-03] MEDS ORDERED: METOPROLOL TARTRATE 25 MG TAB PO STA (10:40)
[2022-08-03] MEDS: POTASSIUM CHLORIDE ER 20 MEQ TAB.ER PO SCH ×2 (10:58→13:08)
--- NOTE | 2022-08-03 11:53 | P.PN ---
Subjective Progress Note Date: 08/03/22 This is Joel Carballo NP, I'm dictating on behalf of Dr. Armijo's H&P and A&P. Patient was interviewed and examined. Patient is a 76-year-old female who presented to the hospital with severe shortness of breath, and was significantly tachycardic in the ER. Today patients heart rate is significantly improved. She has tolerated the cardizem and metoprolol well. She is no longer on bipap. Heart rate is much better controlled. She denies chest pain and palpitations. GENERAL: Well-appearing, well-nourished and in no acute distress. NECK: Supple without JVD or thyromegaly. LUNGS: Breath sounds clear to auscultation bilaterally. Respiration equal and unlabored. No wheezes, rales or rhonchi. HEART: Regular rate and rhythm without murmurs, rubs or gallops. S1 and S2 heard. EXTREMITIES: Normal range of motion, no edema. No clubbing or cyanosis. Peripheral pulses intact and strong. VITALS: Temp 98.1, pulse 86, respirations 26, blood pressure 112/60, O2 saturation 93% on 4 L TELEMETRY: Normal sinus rhythm LABS: White count 13.6, hemoglobin 13.1, platelets 179, sodium 136, potassium 3.4, B1 32, creatinine 0.7 IMPRESSION: 1. Influenza A 2. Acute exacerbation of COPD 3. Demand ischemia 4. Atrial fibrillation with RVR PLAN: Continue cardizem Increase metoprolol to 75mg BID. Give a 25mg one time dose this am. Further recommendations based on the patients clinical course. Objective - Vital Signs Vital signs: Vital Signs Temp 98.1 F 08/03/22 08:00 Pulse 115 H 08/03/22 09:00 Resp 35 H 08/03/22 09:00 BP 106/66 08/03/22 09:00 Pulse Ox 90 L 08/03/22 09:00 FiO2 40 08/02/22 15:42 Intake & Output 08/02/22 08/03/22 08/03/22 18:59 06:59 18:59 Intake Total 113.917 287.5 50 Output Total 470 90 Balance 113.917 -182.5 -40 Weight 50.7 kg Intake: IV 50 cefTRIAXone 1 gm In 50 Sodium Chloride 0.9% 50 ml @ 100 mls/hr IVPB Q24HR [facility] Rx#:[id number] Intake, IV Titration 113.917 87.5 Amount Diltiazem 125 mg In 113.917 87.5 Sodium Chloride 0.9% 100 ml @ 5 MG/HR 5 mls/hr IV .Q24H [facility] Rx#:[id number] Oral 200 Output: Urine 470 90 Other: Voiding Method Indwelling Catheter - Labs CBC & Chem 7: 08/03/22 05:41 08/03/22 05:41 Labs: Abnormal Lab Results - Last 24 Hours (Table) 08/02/22 08/02/22 08/03/22 Range/Units 03:30 17:24 01:14 WBC (3.8-10.6) k/uL RDW (11.5-15.5) % Sodium (137-145) mmol/L Potassium (3.5-5.1) mmol/L Carbon Dioxide (22-30) mmol/L BUN (7-17) mg/dL Glucose (74-99) mg/dL POC Glucose (mg/dL) 148 H 175 H (70-110) mg/dL Procalcitonin 1.59 H (0.02-0.09) ng/mL 08/03/22 08/03/22 Range/Units 05:41 05:41 WBC 13.6 H (3.8-10.6) k/uL RDW 16.9 H (11.5-15.5) % Sodium 136 L (137-145) mmol/L Potassium 3.4 L (3.5-5.1) mmol/L Carbon Dioxide 31 H (22-30) mmol/L BUN 32 H (7-17) mg/dL Glucose 142 H (74-99) mg/dL POC Glucose (mg/dL) (70-110) mg/dL Procalcitonin (0.02-0.09) ng/mL
--- NOTE | 2022-08-03 14:12 | P.PN ---
Subjective Progress Note Date: 08/03/22 Principal diagnosis: Acute exacerbation COPD Influenza infection/tracheobronchitis Acute on chronic hypoxic/hypercapnic respiratory failure Acute on chronic systolic CHF Severe peripheral vascular disease/unstageable wound right lower extremity 76-year-old female past medical history of A. fib on antiplatelet medication, congestive heart failure, COPD on 3 L home O2 who presents emergency room in respiratory distress. Patient called EMS for increased worker breathing which has been going on for the past 3 days. They found the patient to be wearing her 3 L of oxygen however she was saturating in the 70s. When they attempted to get the patient up and ambulate to the stretcher she dropped down into the 50s. She was placed on CPAP and brought into the hospital with improvement in her saturations up to 92%. She was given 125 of Solu-Medrol, 2 albuterol treatments with a Atrovent treatments. They also gave her a nitro and 4 baby aspirins. Patient denies any chest pain. Admits to a chronic cough without any sputum production. No fevers. No sick contacts. Admits to some increase in her lower extremity edema. Patient has been taking her blood thinner as directed without any missed doses. She has been intubated previously for her breathing. No other alleviating, berry grower modifying factors -- LABS: White count 14.7, hemoglobin 13.7, platelets 180, arterial blood gas-pH 7.45, CO2 40, O2 58, HCO3 28; sodium 139, potassium 3.7, B1 19, creatinine 0.49, lactic acid 2.5, troponin 0.327, 0.612 EKG: Atrial fibrillation with rapid ventricular response IMAGING: Chest x-ray dated 08/01/2022 demonstrates some interstitial infiltrates that could be interstitial pneumonia or pulmonary fibrosis and similar to old exam, no obvious heart failure. VITALS: Temp 98.3, heart rate 122, respirations 20, blood pressure 119/75, O2 saturation 97% on BiPAP at 40% FiO2 Overnight, she took off the BiPAP. She was already getting better and this morning she is on 4 L of oxygen by nasal cannula. She seems to be comfortable in her pulse ox is around 93%. The patient is receiving bronchodilators right now and she is on DuoNeb nebulized treatments [id number]. She is also on IV Solu-Medrol 60 mg every 6 hours. She is on Tamiflu 75 mg by mouth twice a day. She also was found to have elevated pro-calcitonin level and she was start ed on empiric antibiotic coverage with IV Rocephin. She is receiving Lasix 40 mg IV every 12 hours and she is achieving a negative fluid balance. --Repeat chest x-ray from today is showing pulmonary vascular congestion and CHF and cardiomegaly Objective - Vital Signs Vital signs: Vital Signs Temp 97.3 F L 08/03/22 00:00 Pulse 112 H 08/03/22 08:07 Resp 15 08/03/22 07:00 BP 76/62 08/03/22 07:00 Pulse Ox 93 L 08/03/22 07:00 FiO2 40 08/02/22 15:42 Intake & Output 08/02/22 08/03/22 08/03/22 18:59 06:59 18:59 Intake Total 113.917 287.5 50 Output Total 470 40 Balance 113.917 -182.5 10 Weight 50.7 kg Intake: IV 50 cefTRIAXone 1 gm In 50 Sodium Chloride 0.9% 50 ml @ 100 mls/hr IVPB Q24HR [facility] Rx#:[id number] Intake, IV Titration 113.917 87.5 Amount Diltiazem 125 mg In 113.917 87.5 Sodium Chloride 0.9% 100 ml @ 5 MG/HR 5 mls/hr IV .Q24H [facility] Rx#:[id number] Oral 200 Output: Urine 470 40 Other: Voiding Method Indwelling Catheter - Exam Head exam was generally normal. Mucous membranes were moist. Neck was supple and without jugular venous distension, thyromegaly, or carotid bruits. Cardiac exam revealed The rhythm was regular and no extrasystoles were noted during several minutes of auscultation. The first and second heart sounds were normal Abdominal exam revealed normal bowel sounds. The abdomen was soft, non-tender, and without masses, organomegaly, or appreciable enlargement of the abdominal aorta. Extremities are showing diminished pulses; some mottling in the left thigh. Patient is known to have chronic vascular disease and lower extremities and the pulses are diminished in all 4 extremities. Neurologically the patient is sedated and she is calm and comfortable. Pupils are equal and reactive to light. She is arousable. She is following simple commands. Psychiatric evaluation cannot be done. Examination of the skin revealed unstageable wound in the anterior aspect of the right lower extremity with a large dried up eschar covering the wound. - Labs CBC & Chem 7: 08/03/22 05:41 08/03/22 05:41 Labs: Abnormal Lab Results - Last 24 Hours (Table) 08/02/22 08/02/22 08/03/22 Range/Units 03:30 17:24 01:14 WBC (3.8-10.6) k/uL RDW (11.5-15.5) % Sodium (137-145) mmol/L Potassium (3.5-5.1) mmol/L Carbon Dioxide (22-30) mmol/L BUN (7-17) mg/dL Glucose (74-99) mg/dL POC Glucose (mg/dL) 148 H 175 H (70-110) mg/dL Procalcitonin 1.59 H (0.02-0.09) ng/mL 08/03/22 08/03/22 Range/Units 05:41 05:41 WBC 13.6 H (3.8-10.6) k/uL RDW 16.9 H (11.5-15.5) % Sodium 136 L (137-145) mmol/L Potassium 3.4 L (3.5-5.1) mmol/L Carbon Dioxide 31 H (22-30) mmol/L BUN 32 H (7-17) mg/dL Glucose 142 H (74-99) mg/dL POC Glucose (mg/dL) (70-110) mg/dL Procalcitonin (0.02-0.09) ng/mL Assessment and Plan Assessment: 1. Acute influenza A tracheobronchitis with secondary COPD exacerbation - Patient has been admitted to ICU; has been placed on IV Solu-Medrol 60 mg every 6 hours; bronchodilator nebulizer treatments 4 times a day and when necessary; Pulmicort nebulizer treatments twice a day - Patient has been placed on Tamiflu 75 mg by mouth twice a day - Ceftriaxone 1 g IV daily 2. Acute on chronic hypoxic and hypercapnic respiratory failure -- currently on BiPAP at a pressure of 12/6 cm of water at an FiO2 of 40% - Patient has been placed on steroid and bronchodilator nebulizer treatments 4 times a day and when necessary 3. 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 History of coronary artery disease. The patient has multivessel and the patient underwent three-vessel bypass surgery, off pump 4. Elevated Troponin Leak secondary to above; we will monitor EKG and trend troponin 5. Acute on chronic systolic heart failure EF 40-45% - Lasix 40 mg IV every 12 hours; we will monitor strict MIKEY's, daily weights, renal function and electrolytes along with low-salt and fluid restricted diet 6. Chronic atrial fibrillation with rapid ventricular response; likely related to hypoxic respiratory failure resulting from influenza A infection and COPD exacerbation - Patient remains on IV Cardizem infusion at a rate of 5 mg per hour -- continue anticoagulation with Eliquis 7. Severe peripheral vascular disease, post bilateral iliac artery stenting and the patient has undergone previous left superficial femoral artery atherectomy , angioplasty and stenting. - Patient has been evaluated and treated by Dr. Montoya; consult has been placed 8. Hypertension; patient takes lisinopril and metoprolol at home which has been placed on hold; blood pressure currently stable on IV Cardizem infusion 9. Hyperlipidemia; Lipitor 80 mg by mouth daily at bedtime 10. Obstructive sleep apnea without CPAP therapy on outpatient basis; patient is currently on BiPAP DVT prophylaxis; SCDs/systemic anticoagulation CODE STATUS; full code
[2022-08-03] MEDS: ALPRAZolam 0.25 MG TAB PO PRN (16:14)
[2022-08-03] MEDS: ATORVASTATIN 80 MG TAB PO SCH (20:28)
[2022-08-03] MEDS: METOPROLOL TARTRATE 50 MG TAB PO SCH (20:29)
[2022-08-03] MEDS: OSELTAMIVIR 60 MG/10 ML ORAL SYRINGE PO SCH (21:10)
[2022-08-04] MEDS: HYDROcodone/APAP 7.5-325MG 1 EACH TAB PO PRN ×3 (04:03→23:32)
[2022-08-04] MEDS: methylPREDNISolone SOD SUCCI 125 MG/2 ML VIAL IV SCH ×4 (04:10→23:31)
[2022-08-04 06:36] LABS: Anisocytosis Slight; Basophils # (A) 0.1 k/uL (0-0.2); Basophils % (A) 1 %; Eosinophils % (A) 0 %; HCT 38.9 % (34.0-46.0); HGB 12.5 gm/dL (11.4-16.0); Hypochromasia Moderate; Lymphocytes # (A) 0.5 k/uL (1.0-4.8); Lymphocytes % (A) 5 %; MCH 30.8 pg (25.0-35.0); MCV 96.2 fL (80.0-100.0); Mean Platelet Volume 9.1; Monocytes # (A) 0.3 k/uL (0-1.0); Monocytes % (A) 3 %; Neutrophils # (A) 9.1 k/uL (1.3-7.7); Neutrophils % (A) 90 %; Platelet Count 183 k/uL (150-450); RBC 4.04 m/uL (3.80-5.40); RDW 16.8 % (11.5-15.5); WBC 10.1 k/uL (3.8-10.6)
[2022-08-04 06:49] LABS: African American GFR (CKD) >90 (>60 ml/min/1.73 sqM); Anion Gap 3 mmol/L; Blood Urea Nitrogen 34 mg/dL (7-17); Calcium 8.8 mg/dL (8.4-10.2); Carbon Dioxide 34 mmol/L (22-30); Chloride 99 mmol/L (98-107); Glucose 141 mg/dL (74-99); Non-African American GFR(CKD) 82 (>60 ml/min/1.73 sqM); Potassium 4.3 mmol/L (3.5-5.1); Sodium 136 mmol/L (137-145)
[2022-08-04] MEDS: FORMOTEROL FUMARATE 20 MCG/2 ML NEBU INHALATION SCH ×2 (07:41→19:47)
[2022-08-04] MEDS: IPRATROPIUM-ALBUTEROL 3 ML NEB INHALATION SCH ×4 (07:41→19:47)
[2022-08-04] MEDS: BUDESONIDE 0.5 MG/2 ML NEBU INHALATION SCH ×2 (07:41→19:47)
[2022-08-04] MEDS: OSELTAMIVIR 60 MG/10 ML ORAL SYRINGE PO SCH ×2 (09:27→20:34)
[2022-08-04] MEDS: FUROSEMIDE 10 MG/ML 4 ML VIAL IV SCH ×2 (09:28→20:34)
[2022-08-04] MEDS: METOPROLOL TARTRATE 50 MG TAB PO SCH ×2 (09:28→20:33)
[2022-08-04] MEDS: GABAPENTIN 300 MG CAP PO SCH ×2 (09:29→20:33)
[2022-08-04] MEDS: LETROZOLE 2.5 MG TAB PO SCH (09:29)
[2022-08-04] MEDS: APIXABAN 5 MG TAB PO SCH ×2 (09:29→20:33)
[2022-08-04] MEDS: ESCITALOPRAM 10 MG TAB PO SCH (09:30)
--- NOTE | 2022-08-04 10:08 | P.PN ---
Subjective From records 76-year-old female past medical history of A. fib on antiplatelet medication, congestive heart failure, COPD on 3 L home O2 who presents emergency room in respiratory distress. Patient called EMS for increased worker breathing which h as been going on for the past 3 days. They found the patient to be wearing her 3 L of oxygen however she was saturating in the 70s. When they attempted to get the patient up and ambulate to the stretcher she dropped down into the 50s. She was placed on CPAP and brought into the hospital with improvement in her saturations up to 92%. She was given 125 of Solu-Medrol, 2 albuterol treatments with a Atrovent treatments. They also gave her a nitro and 4 baby aspirins. Patient denies any chest pain. Admits to a chronic cough without any sputum production. No fevers. No sick contacts. Admits to some increase in her lower extremity edema. Patient has been taking her blood thinner as directed without any missed doses. She has been intubated previously for her breathing. No other alleviating, head animal keeper modifying factors -- LABS: White count 14.7, hemoglobin 13.7, platelets 180, arterial blood gas-pH 7.45, CO2 40, O2 58, HCO3 28; sodium 139, potassium 3.7, B1 19, creatinine 0.49, lactic acid 2.5, troponin 0.327, 0.612 EKG: Atrial fibrillation with rapid ventricular response IMAGING: Chest x-ray dated 08/01/2022 demonstrates some interstitial infiltrates that could be interstitial pneumonia or pulmonary fibrosis and similar to old exam, no obvious heart failure. VITALS: Temp 98.3, heart rate 122, respirations 20, blood pressure 119/75, O2 saturation 97% on BiPAP at 40% FiO2 Overnight, she took off the BiPAP. She was already getting better and this morning she is on 4 L of oxygen by nasal cannula. She seems to be comfortable in her pulse ox is around 93%. The patient is receiving bronchodilators right now and she is on DuoNeb nebulized treatments [id number]. She is also on IV Solu-Medrol 60 mg every 6 hours. She is on Tamiflu 75 mg by mouth twice a day. She also was found to have elevated pro-calcitonin level and she was started on empiric antibiotic coverage with IV Rocephin. She is receiving Lasix 40 mg IV every 12 hours and she is achieving a negative fluid balance. --Repeat chest x-ray from today is showing pulmonary vascular congestion and CHF and cardiomegaly 08/04/2022 Patient feels better, she feels she can go home soon. She is less tachypneic She saturating 98% infarcted or significant nasal cannula Leukocytosis resolved She remains on multiple medication including ceftriaxone, Tamiflu, Solu-Medrol 60 mg, IV Lasix 40 mg twice daily, home dose of Eliquis and metoprolol 75 mL/h Objective - Vital Signs Vital signs: Vital Signs Temp 97.9 F 08/04/22 08:00 Pulse 76 08/04/22 08:06 Resp 20 08/04/22 08:00 BP 118/91 08/04/22 08:00 Pulse Ox 98 08/04/22 08:00 FiO2 40 08/03/22 08:00 Intake & Output 08/03/22 08/04/22 08/04/22 18:59 06:59 18:59 Intake Total 133.5 250 250 Output Total 375 985 185 Balance -241.5 -735 65 Weight 51 kg Intake: IV 70 0.9 Normal Saline @ KVO 20 cefTRIAXone 1 gm In 50 Sodium Chloride 0.9% 50 ml @ 100 mls/hr IVPB Q24HR [facility] Rx#:[id number] Intake, IV Titration 63.5 Amount Diltiazem 125 mg In 63.5 Sodium Chloride 0.9% 100 ml @ 5 MG/HR 5 mls/hr IV .Q24H [facility] Rx#:[id number] Oral 250 250 Output: Urine 375 985 185 Other: Voiding Method Indwelling Catheter Indwelling Catheter Indwelling Catheter - Exam GENERAL: The patient is alert and oriented x3, not in any acute distress. Well developed, well nourished. HEENT: Pupils are round and equally reacting to light. EOMI. No scleral icterus. No conjunctival pallor. Normocephalic, atraumatic. No pharyngeal erythema. No thyromegaly. CARDIOVASCULAR: S1 and S2 present. No murmurs, rubs, or gallops. PULMONARY: Chest is clear to auscultation, no wheezing .bilateral crepitation ABDOMEN: Soft, nontender, nondistended, normoactive bowel sounds. No palpable organomegaly. MUSCULOSKELETAL: No joint swelling or deformity. EXTREMITIES: No cyanosis, clubbing, or pedal edema. NEUROLOGICAL: Gross neurological examination did not reveal any focal deficits. SKIN: No rashes. no petechiae. - Labs CBC & Chem 7: 08/04/22 06:23 08/04/22 06:23 Labs: Abnormal Lab Results - Last 24 Hours (Table) 08/04/22 08/04/22 Range/Units 06:23 06:23 RDW 16.8 H (11.5-15.5) % Neutrophils # 9.1 H (1.3-7.7) k/uL Lymphocytes # 0.5 L (1.0-4.8) k/uL Sodium 136 L (137-145) mmol/L Carbon Dioxide 34 H (22-30) mmol/L BUN 34 H (7-17) mg/dL Glucose 141 H (74-99) mg/dL Assessment and Plan Assessment: 1. Acute influenza A tracheobronchitis with secondary COPD exacerbation and secondary bacterial superinfection/acute tracheobronchitis - Patient has been admitted to ICU; has been placed on IV Solu-Medrol 60 mg every 6 hours; bronchodilator nebulizer treatments 4 times a day and when necessary; Pulmicort nebulizer treatments twice a day - Patient has been placed on Tamiflu 75 mg by mouth twice a day - Ceftriaxone 1 g IV daily 2. Acute on chronic hypoxic and hypercapnic respiratory failure -- currently on BiPAP at a pressure of 12/6 cm of water at an FiO2 of 40% - Patient has been placed on steroid and bronchodilator nebulizer treatments 4 times a day and when necessary 3. 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 History of coronary artery disease. The patient has multivessel and the patient underwent three-vessel bypass surgery, off pump 4. Elevated Troponin Leak secondary to above; typr 2 PA, demand/supplied mismatch 5. Acute on chronic systolic heart failure EF 40-45% - Lasix 40 mg IV every 12 hours; we will monitor strict MIKEY's, daily weights, renal function and electrolytes along with low-salt and fluid restricted diet 6. Chronic atrial fibrillation with rapid ventricular response; likely related to hypoxic respiratory failure resulting from influenza A infection and COPD exacerbation - Continue with metoprolol - continue anticoagulation with Eliquis - Elevator Erector consult 7. Severe peripheral vascular disease, post bilateral iliac artery stenting and the patient has undergone previous left superficial femoral artery atherectomy , angioplasty and stenting. - Patient has been evaluated and treated by Dr. Montoya; consult has been placed 8. Hypertension; patient takes lisinopril and metoprolol at home which has been placed on hold; blood pressure currently stable on IV Cardizem infusion 9. Hyperlipidemia; Lipitor 80 mg by mouth daily at bedtime 10. Obstructive sleep apnea without CPAP therapy on outpatient basis; patient is currently on BiPAP DVT prophylaxis; SCDs/systemic anticoagulation CODE STATUS; full code
--- NOTE | 2022-08-04 12:16 | P.PN ---
Subjective Progress Note Date: 08/04/22 Principal diagnosis: Acute on chronic hypoxic and hypercapnic respiratory failure secondary to acute exacerbation of COPD secondary to influenza A infection. 76-year-old female patient that was admitted thru the emergency department for shortness of breath. Has extensive medical history including paroxysmal atrial fibrillation on Eliquis, LV thrombus, TIA, coronary artery disease with history of stenting and three-vessel coronary artery bypass in November 2020 and the left atrial appendage clipping, chronic congestive heart failure with systolic dysfunction, ischemic cardiomyopathy, mitral valve prolapse with previous surgery, hypertension, hyperlipidemia, previous episode of pneumonia, COPD, peripheral vascular disease with previous bilateral iliac arthrectomy and stent placement, breast cancer with history of right mastectomy currently on Femara. Patient also has history of multiple sclerosis, and obstructive sleep apnea without CPAP on outpatient basis. The patient has advanced COPD. The patient has started smoking cigarettes. She was in the hospital back in December 2021 for acute hypoxic/hypercapnic respiratory failure due to COPD exacerbation had mucus plugging involving left mainstem bronchus and complete collapse of the left lung. This was active uterine E. coli infection and the patient underwent bronchoscopy and a bronchial lavage and she required intubation mechanical ventilation and ultimately she recovers. During the course of her illness, she also suffered a acute non-ST segment elevation myocardial infarction. Noted the patient is known to have coronary artery disease, three-vessel bypass surgery in November 2020 was done and the patient has undergone previous stenting. She has ischemic cardiomyopathy. She was also maintained on oxygen at 3 L/m nasal cannula. She was living at home and she was still smoking 1 pack of cigarettes a day. During this current admission, the patient came into the emergency for worsening shortness of breath. She was found to be hypoxic at home with a pulse ox of 70% on 3 L of oxygen by nasal cannula. She attempted to get up and ambulate and she dropped even further down to the 50s. EMS arrived to the scene. The patient was placed on CPAP/BiPAP and the patient was brought in to the emergency. Here in the emergency, the patient is currently on a BiPAP at a pressure of 12/6 cm of water with FiO2 of 40%. She is in atrial fibrillation and slightly tachycardic in the heart disease ranging between 110 and 120. She was given bronchodilators and she was given steroids. Chest x-ray was done and there is some mild pulmonary congestion. Small effusions. Increased interstitial markings. No airspace disease. He is awake and alert and she is communicating. While on her BiPAP she had a blood gas that showed a pH of 7.4 with a pCO2 of 40 and pO2 of 58 and this was on FiO2 of 35%. Lactic acid level was at 2.5. Troponins were elevated at 0.0 0.6 respectively. BUN is at 19 with a creatinine of 0.4. She has a chronic dry wound/ulcer over the anterior aspect of the right lower extremity. It is unstageable as the patient has a necrotic eschar covering the wounds. She also has evidence of chronic vascular insufficiency in the lower extremities and chronic cyanosis of diminished pulses. Note that the patient also tested positive for influenza A. Covid 19 testing was negative. R SV was negative. On 08/03/2022, the patient seems to much more comfortable compared to yesterday. I saw this patient in emergency department yesterday with significant respiratory distress. At that time she was diagnosed having influenza A tracheobronchitis and secondary COPD and CHF exacerbation. Immediately, the patient was placed on a BiPAP. She was subjected to Tamiflu. She was given diu retics patient was given bronchodilators and steroids. Overnight, she took off the BiPAP. She was already getting better and this morning she is on 4 L of oxygen by nasal cannula. She seems to be comfortable in her pulse ox is around 93%. The patient is receiving bronchodilators right now and she is on DuoNeb nebulized treatments [id number]. She is also on IV Solu-Medrol 60 mg every 6 hours. She is on Tamiflu 75 mg by mouth twice a day. She also was found to have elevated pro-calcitonin level and she was started on empiric antibiotic coverage with IV Rocephin. She is receiving Lasix 40 mg IV every 12 hours and she is achieving a negative fluid balance. On today's evaluation, c ardiac rhythm is atrial fibrillation and rate is other better control. She remains on Cardizem drip at 5 mg and hour and was being titrated for her blood pressure control. She takes and coagulation with Eliquis 5 mg by mouth twice a day which has been resumed. She is also on metoprolol on outpatient basis at a dose of 75 mg by mouth twice a day. No chest pain. No angina. Pulses of the lower extremities are diminished. They're obtainable by Doppler signals. Most recent BP is 113/68. Vascular surgery has been consulted regarding her diminished pulses in lower extremities and the wound that essentially unstageable with a large eschar covering the surface of the wound and this wound is located in the anterior aspect of the right lower extremity. There is no evidence of any surrounding cellulitis at this point in time. Tadeo catheter is in place. The patient was seen by cardiology. Alert and awake and oriented. Following commands and answering questions appropriately. Repeat chest x-ray from today is showing pulmonary vascular congestion and CHF and cardiomegaly. Reevaluated today on 08/04/2022, patient remains in the ICU, she is now on 5 L nasal cannula, does not seem to be in any distress. Remains on Tamiflu, remains on Rocephin, she is also on Lasix 40 mg twice a day. Patient was noted to have slightly elevated pro-calcitonin level of 1.59, hence the Rocephin will remain the same, she was also noted to have elevated BNP of 10,900, remains on Lasix, she is also noted to have elevated troponin. Patient is not requiring BiPAP today, getting better steadily. Remains on bronchodilators including DuoNeb, is also on IV Solu-Medrol. And on Tamiflu. Patient is off Cardizem today for her atrial fibrillation, her leukocytosis has resolved. Patient is on her home eliquis she is also on metoprolol WBC count today is 10.1 hemoglobin is 12.5. Electrolytes are normal renal profile is normal. Chest x-ray continues to show multifocal airspace opacities. Consistent with multifocal pneumonia, possibly superimposed pneumonia in addition to her influenza infection Objective - Vital Signs Vital signs: Vital Signs Temp 97.9 F 08/04/22 08:00 Pulse 72 08/04/22 11:49 Resp 20 08/04/22 08:00 BP 118/91 08/04/22 08:00 Pulse Ox 98 08/04/22 08:00 FiO2 40 08/03/22 08:00 Intake & Output 08/03/22 08/04/22 08/04/22 18:59 06:59 18:59 Intake Total 133.5 250 300 Output Total 375 985 535 Balance -241.5 -735 -235 Weight 51 kg Intake: IV 70 50 0.9 Normal Saline @ KVO 20 cefTRIAXone 1 gm In 50 50 Sodium Chloride 0.9% 50 ml @ 100 mls/hr IVPB Q24HR [facility] Rx#:[id number] Intake, IV Titration 63.5 Amount Diltiazem 125 mg In 63.5 Sodium Chloride 0.9% 100 ml @ 5 MG/HR 5 mls/hr IV .Q24H [facility] Rx#:[id number] Oral 250 250 Output: Urine 375 985 535 Other: Voiding Method Indwelling Catheter Indwelling Catheter Indwelling Catheter - Exam GENERAL: Revealed a 76-year-old female in no distress, on few liters nasal cannula HEENT: No evidence of pallor. Normocephalic, atraumatic. No pharyngeal erythema. No thyromegaly. CARDIOVAnormal S1 and S2, no S3 gallop. No murmur. Chest:: Chest is clear to auscultation, no wheezingminimal crackles at the bases. ABDOMEN: Soft, nontender, nondistended, normoactive bowel sounds. No palpable organomegaly. MUSCULOSKELETAL: no deformities and no limitation in range of motion Extremities:: No cyanosis, clubbing, or pedal edema. diminished distal pulses bilaterally NEUROLOGICAL: alert oriented 3 no gross focal deficit. SKIN: No rashes. - Labs CBC & Chem 7: 08/04/22 06:23 08/04/22 06:23 Labs: Abnormal Lab Results - Last 24 Hours (Table) 08/04/22 08/04/22 Range/Units 06:23 06:23 RDW 16.8 H (11.5-15.5) % Neutrophils # 9.1 H (1.3-7.7) k/uL Lymphocytes # 0.5 L (1.0-4.8) k/uL Sodium 136 L (137-145) mmol/L Carbon Dioxide 34 H (22-30) mmol/L BUN 34 H (7-17) mg/dL Glucose 141 H (74-99) mg/dL Assessment and Plan Assessment: Impression: Acute on chronic hypoxic and hypercapnic respiratory failure Acute exacerbation of COPD Acute influenza A tracheobronchitis Suspect superimposed bacterial pneumonia with elevated pro calcitonin level, remains on Rocephin. History of coronary artery disease. Severe peripheral vessel occlusive disease Dyslipidemia Benign essential hypertension history of obstructive sleep apnea syndrome Troponin leak. Acute on chronic systolic congestive heart failure, ejection fraction 40-45%. Remains on Lasix. Recommendation: Continue present supportive care measures Continue Rocephin and Tamiflu and Lasix Continue bronchodilators Continue Solu-Medrol Off Cardizem today. Patient is on metoprolol. Continue eliquis Transfer patient to a monitor bed on selective, patient could be transferred out of the ICU today Not quite ready for discharge planning, we will continue to follow Time with Patient: Less than 30
[2022-08-04] MEDS: ALPRAZolam 0.25 MG TAB PO PRN (14:22)
[2022-08-04] MEDS: ATORVASTATIN 80 MG TAB PO SCH (20:33)
[2022-08-04] MEDS: NICOTINE 21MG/24HR PATCH TRANSDERM SCH (20:34)
--- NOTE | 2022-08-04 22:56 | PN ---
PROGRESS NOTE SUBJECTIVE: Sharmila is a 76-year-old lady, who is admitted to hospital with shortness of breath and respiratory failure secondary to influenza. OBJECTIVE: VITAL SIGNS: Heart rate is 76 beats per minute, blood pressure is 180/90, respiratory rate 20, O2 saturation is 98% on high-flow nasal O2. CHEST: Reveals diminished air entry bilaterally. HEART: Reveals first and second heart sounds. No gallop. EXTREMITIES: Did not reveal any edema. Peripheral pulses are palpable. IMAGING: The patient had an echo that revealed an ejection fraction of 45% to 50%. MEDICATIONS: The patient is currently on: 1. Eliquis 5 b.i.d. 2. Lipitor. 3. Lasix 40 mg IV q.12. 4. Lopressor 75 b.i.d. 5. She is also on Tamiflu. ASSESSMENT: 1. Respiratory failure. 2. Paroxysmal atrial fibrillation. PLAN: Continue current medications. MMODL / IJN: [id number] /
[2022-08-05] MEDS: HYDROcodone/APAP 7.5-325MG 1 EACH TAB PO PRN ×3 (04:37→19:08)
[2022-08-05] MEDS: ALPRAZolam 0.25 MG TAB PO PRN ×2 (04:37→21:58)
[2022-08-05] MEDS: methylPREDNISolone SOD SUCCI 125 MG/2 ML VIAL IV SCH ×4 (04:37→23:20)
[2022-08-05] MEDS: BUDESONIDE 0.5 MG/2 ML NEBU INHALATION SCH ×2 (07:22→19:43)
[2022-08-05] MEDS: IPRATROPIUM-ALBUTEROL 3 ML NEB INHALATION SCH ×4 (07:22→19:43)
[2022-08-05] MEDS: FORMOTEROL FUMARATE 20 MCG/2 ML NEBU INHALATION SCH ×2 (07:22→19:43)
[2022-08-05] MEDS: ESCITALOPRAM 10 MG TAB PO SCH (08:44)
[2022-08-05] MEDS: METOPROLOL TARTRATE 50 MG TAB PO SCH ×2 (08:44→20:34)
[2022-08-05] MEDS: APIXABAN 5 MG TAB PO SCH ×2 (08:44→20:34)
[2022-08-05] MEDS: LETROZOLE 2.5 MG TAB PO SCH (08:44)
[2022-08-05] MEDS: OSELTAMIVIR 60 MG/10 ML ORAL SYRINGE PO SCH ×2 (08:44→20:52)
[2022-08-05] MEDS: FUROSEMIDE 10 MG/ML 4 ML VIAL IV SCH ×2 (08:44→20:33)
[2022-08-05] MEDS: GABAPENTIN 300 MG CAP PO SCH ×2 (08:44→20:34)
[2022-08-05 10:26] VITALS: BMI 17.9
[2022-08-05] MEDS: lisinopriL 10 MG TAB PO SCH (11:07)
--- NOTE | 2022-08-05 11:42 | P.PN ---
Subjective Progress Note Date: 08/05/22 Principal diagnosis: Acute on chronic hypoxic and hypercapnic respiratory failure secondary to acute exacerbation of COPD secondary to influenza A infection. 76-year-old female patient that was admitted thru the emergency department for shortness of breath. Has extensive medical history including paroxysmal atrial fibrillation on Eliquis, LV thrombus, TIA, coronary artery disease with history of stenting and three-vessel coronary artery bypass in November 2020 and the left atrial appendage clipping, chronic congestive heart failure with systolic dysfunction, ischemic cardiomyopathy, mitral valve prolapse with previous surgery, hypertension, hyperlipidemia, previous episode of pneumonia, COPD, peripheral vascular disease with previous bilateral iliac arthrectomy and stent placement, breast cancer with history of right mastectomy currently on Femara. Patient also has history of multiple sclerosis, and obstructive sleep apnea without CPAP on outpatient basis. The patient has advanced COPD. The patient has started smoking cigarettes. She was in the hospital back in December 2021 for acute hypoxic/hypercapnic respiratory failure due to COPD exacerbation had mucus plugging involving left mainstem bronchus and complete collapse of the left lung. This was active uterine E. coli infection and the patient underwent bronchoscopy and a bronchial lavage and she required intubation mechanical ventilation and ultimately she recovers. During the course of her illness, she also suffered a acute non-ST segment elevation myocardial infarction. Noted the patient is known to have coronary artery disease, three-vessel bypass surgery in November 2020 was done and the patient has undergone previous stenting. She has ischemic cardiomyopathy. She was also maintained on oxygen at 3 L/m nasal cannula. She was living at home and she was still smoking 1 pack of cigarettes a day. During this current admission, the patient came into the emergency for worsening shortness of breath. She was found to be hypoxic at home with a pulse ox of 70% on 3 L of oxygen by nasal cannula. She attempted to get up and ambulate and she dropped even further down to the 50s. EMS arrived to the scene. The patient was placed on CPAP/BiPAP and the patient was brought in to the emergency. Here in the emergency, the patient is currently on a BiPAP at a pressure of 12/6 cm of water with FiO2 of 40%. She is in atrial fibrillation and slightly tachycardic in the heart disease ranging between 110 and 120. She was given bronchodilators and she was given steroids. Chest x-ray was done and there is some mild pulmonary congestion. Small effusions. Increased interstitial markings. No airspace disease. He is awake and alert and she is communicating. While on her BiPAP she had a blood gas that showed a pH of 7.4 with a pCO2 of 40 and pO2 of 58 and this was on FiO2 of 35%. Lactic acid level was at 2.5. Troponins were elevated at 0.0 0.6 respectively. BUN is at 19 with a creatinine of 0.4. She has a chronic dry wound/ulcer over the anterior aspect of the right lower extremity. It is unstageable as the patient has a necrotic eschar covering the wounds. She also has evidence of chronic vascular insufficiency in the lower extremities and chronic cyanosis of diminished pulses. Note that the patient also tested positive for influenza A. Covid 19 testing was negative. R SV was negative. On 08/03/2022, the patient seems to much more comfortable compared to yesterday. I saw this patient in emergency department yesterday with significant respiratory distress. At that time she was diagnosed having influenza A tracheobronchitis and secondary COPD and CHF exacerbation. Immediately, the patient was placed on a BiPAP. She was subjected to Tamiflu. She was given diu retics patient was given bronchodilators and steroids. Overnight, she took off the BiPAP. She was already getting better and this morning she is on 4 L of oxygen by nasal cannula. She seems to be comfortable in her pulse ox is around 93%. The patient is receiving bronchodilators right now and she is on DuoNeb nebulized treatments [id number]. She is also on IV Solu-Medrol 60 mg every 6 hours. She is on Tamiflu 75 mg by mouth twice a day. She also was found to have elevated pro-calcitonin level and she was started on empiric antibiotic coverage with IV Rocephin. She is receiving Lasix 40 mg IV every 12 hours and she is achieving a negative fluid balance. On today's evaluation, c ardiac rhythm is atrial fibrillation and rate is other better control. She remains on Cardizem drip at 5 mg and hour and was being titrated for her blood pressure control. She takes and coagulation with Eliquis 5 mg by mouth twice a day which has been resumed. She is also on metoprolol on outpatient basis at a dose of 75 mg by mouth twice a day. No chest pain. No angina. Pulses of the lower extremities are diminished. They're obtainable by Doppler signals. Most recent BP is 113/68. Vascular surgery has been consulted regarding her diminished pulses in lower extremities and the wound that essentially unstageable with a large eschar covering the surface of the wound and this wound is located in the anterior aspect of the right lower extremity. There is no evidence of any surrounding cellulitis at this point in time. Tadeo catheter is in place. The patient was seen by cardiology. Alert and awake and oriented. Following commands and answering questions appropriately. Repeat chest x-ray from today is showing pulmonary vascular congestion and CHF and cardiomegaly. Reevaluated today on 08/04/2022, patient remains in the ICU, she is now on 5 L nasal cannula, does not seem to be in any distress. Remains on Tamiflu, remains on Rocephin, she is also on Lasix 40 mg twice a day. Patient was noted to have slightly elevated pro-calcitonin level of 1.59, hence the Rocephin will remain the same, she was also noted to have elevated BNP of 10,900, remains on Lasix, she is also noted to have elevated troponin. Patient is not requiring BiPAP today, getting better steadily. Remains on bronchodilators including DuoNeb, is also on IV Solu-Medrol. And on Tamiflu. Patient is off Cardizem today for her atrial fibrillation, her leukocytosis has resolved. Patient is on her home eliquis she is also on metoprolol WBC count today is 10.1 hemoglobin is 12.5. Electrolytes are normal renal profile is normal. Chest x-ray continues to show multifocal airspace opacities. Consistent with multifocal pneumonia, possibly superimposed pneumonia in addition to her influenza infection Reevaluated today 08/05/2022, patient remains in the ICU, she is basically an overflow. Remains on 4 L nasal cannula, she is off BiPAP, she was on BiPAP 12/ at 40%, still receiving Tamiflu for one more day, she is not receiving any other infusions. Patient remains on bronchodilators and she is also on steroids, she is on ceftriaxone, her last chest x-ray showed multifocal infiltrates clinically the patient continues to have intermittent cough and wheezing, and on physical examination continues to have significant wheezing today. Hence I believe the patient is not quite ready for discharge planning. WBC count is 10.1 hemoglobin is 12.5 electrodes are normal renal profile is normal bicarb is 34. Pro- calcitonin level on admission was 1.59, hence the patient was treated empirically with antibiotics for potentially superimposed bacterial pneumonia although the presentation mostly a presentation of influenza A infection Objective - Vital Signs Vital signs: Vital Signs Temp 98.3 F 08/05/22 08:00 Pulse 78 08/05/22 08:07 Resp 17 08/05/22 08:00 BP 172/86 08/05/22 08:00 Pulse Ox 95 08/05/22 08:00 FiO2 40 08/03/22 08:00 Intake & Output 08/04/22 08/05/22 08/05/22 18:59 06:59 18:59 Intake Total 600 Output Total 1135 550 Balance -535 -550 Weight 47.3 kg 47.3 kg Intake: IV 50 cefTRIAXone 1 gm In 50 Sodium Chloride 0.9% 50 ml @ 100 mls/hr IVPB Q24HR [facility] Rx#:[id number] Oral 550 Output: Urine 1135 550 Other: Voiding Method Indwelling Catheter Indwelling Catheter Indwelling Catheter - Exam GENERAL: Revealed a 76-year-old female in no distress, on 4 liters nasal cannul a, not in any distress. HEENT: No evidence of pallor. Normocephalic, atraumatic. No pharyngeal erythema. No thyromegaly. CARDIOVAnormal S1 and S2, no S3 gallop. No murmur. Chest:: Chest is clear to auscultation, rhonchi and wheezing noted bilaterally today. ABDOMEN: Soft, nontender, nondistended, normoactive bowel sounds. No palpable organomegaly. MUSCULOSKELETAL: no deformities and no limitation in range of motion Extremities:: No cyanosis, clubbing, or pedal edema. diminished distal pulses bilaterally NEUROLOGICAL: alert oriented 3 no gross focal deficit. SKIN: No rashes. - Labs CBC & Chem 7: 08/04/22 06:23 08/04/22 06:23 Assessment and Plan Assessment: Impression: Acute on chronic hypoxic and hypercapnic respiratory failure Acute exacerbation of COPD Acute influenza A tracheobronchitis Suspect superimposed bacterial pneumonia with elevated pro calcitonin level, remains on Rocephin. History of coronary artery disease. Severe peripheral vessel occlusive disease Dyslipidemia Benign essential hypertension history of obstructive sleep apnea syndrome Troponin leak. Acute on chronic systolic congestive heart failure, ejection fraction 40-45%. Remains on Lasix. Recommendation: Patient is presently an overflow in the ICU, waiting to get a bed on the medical surgical floor. Continue present supportive care measures Continue Tamiflu, she has one more day of this. Continue Rocephin. Continue bronchodilators Continue Solu-Medrol Continue metoprolol Continue eliquis Transfer patient to a monitor bed on selective, once a bed is available. Not quite ready for discharge planning, we will continue to follow Time with Patient: Less than 30
[2022-08-05] MEDS ORDERED: LIDOCAINE 4% CREAM 5 GM TUBE TOPICAL ONE (17:00)
--- NOTE | 2022-08-05 18:43 | P.PN ---
Subjective From records 76-year-old female past medical history of A. fib on antiplatelet medication, congestive heart failure, COPD on 3 L home O2 who presents emergency room in respiratory distress. Patient called EMS for increased worker breathing which h as been going on for the past 3 days. They found the patient to be wearing her 3 L of oxygen however she was saturating in the 70s. When they attempted to get the patient up and ambulate to the stretcher she dropped down into the 50s. She was placed on CPAP and brought into the hospital with improvement in her saturations up to 92%. She was given 125 of Solu-Medrol, 2 albuterol treatments with a Atrovent treatments. They also gave her a nitro and 4 baby aspirins. Patient denies any chest pain. Admits to a chronic cough without any sputum production. No fevers. No sick contacts. Admits to some increase in her lower extremity edema. Patient has been taking her blood thinner as directed without any missed doses. She has been intubated previously for her breathing. No other alleviating, operating room rn modifying factors -- LABS: White count 14.7, hemoglobin 13.7, platelets 180, arterial blood gas-pH 7.45, CO2 40, O2 58, HCO3 28; sodium 139, potassium 3.7, B1 19, creatinine 0.49, lactic acid 2.5, troponin 0.327, 0.612 EKG: Atrial fibrillation with rapid ventricular response IMAGING: Chest x-ray dated 08/01/2022 demonstrates some interstitial infiltrates that could be interstitial pneumonia or pulmonary fibrosis and similar to old exam, no obvious heart failure. VITALS: Temp 98.3, heart rate 122, respirations 20, blood pressure 119/75, O2 saturation 97% on BiPAP at 40% FiO2 Overnight, she took off the BiPAP. She was already getting better and this morning she is on 4 L of oxygen by nasal cannula. She seems to be comfortable in her pulse ox is around 93%. The patient is receiving bronchodilators right now and she is on DuoNeb nebulized treatments [id number]. She is also on IV Solu-Medrol 60 mg every 6 hours. She is on Tamiflu 75 mg by mouth twice a day. She also was found to have elevated pro-calcitonin level and she was started on empiric antibiotic coverage with IV Rocephin. She is receiving Lasix 40 mg IV every 12 hours and she is achieving a negative fluid balance. --Repeat chest x-ray from today is showing pulmonary vascular congestion and CHF and cardiomegaly 08/04/2022 Patient feels better, she feels she can go home soon. She is less tachypneic She saturating 98% infarcted or significant nasal cannula Leukocytosis resolved She remains on multiple medication including ceftriaxone, Tamiflu, Solu-Medrol 60 mg, IV Lasix 40 mg twice daily, home dose of Eliquis and metoprolol 75 mL/h 08/05/2022 Patient to continue to improve slowly and gradually, her oxygen requirements doctor for a permanent today, saturation of her oxygen is 98% Leukocytosis resolved Patient today is to be transferred out of the ICU pending bed availability. She remains on the same treatment of Tamiflu, ceftriaxone, IV Lasix and IV Solu- Medrol. Objective - Vital Signs Vital signs: Vital Signs Temp 98.3 F 08/05/22 08:00 Pulse 78 08/05/22 08:07 Resp 17 08/05/22 08:00 BP 172/86 08/05/22 08:00 Pulse Ox 95 08/05/22 08:00 FiO2 40 08/03/22 08:00 Intake & Output 08/04/22 08/05/22 08/05/22 18:59 06:59 18:59 Intake Total 600 Output Total 1135 550 Balance -535 -550 Weight 47.3 kg 47.3 kg Intake: IV 50 cefTRIAXone 1 gm In 50 Sodium Chloride 0.9% 50 ml @ 100 mls/hr IVPB Q24HR [facility] Rx#:[id number] Oral 550 Output: Urine 1135 550 Other: Voiding Method Indwelling Catheter Indwelling Catheter Indwelling Catheter - Exam GENERAL: The patient is alert and oriented x3, not in any acute distress. Well developed, well nourished. HEENT: Pupils are round and equally reacting to light. EOMI. No scleral icterus. No conjunctival pallor. Normocephalic, atraumatic. No pharyngeal erythema. No thyromegaly. CARDIOVASCULAR: S1 and S2 present. No murmurs, rubs, or gallops. PULMONARY: Chest is clear to auscultation, no wheezing .bilateral crepitation ABDOMEN: Soft, nontender, nondistended, normoactive bowel sounds. No palpable organomegaly. MUSCULOSKELETAL: No joint swelling or deformity. EXTREMITIES: No cyanosis, clubbing, or pedal edema. NEUROLOGICAL: Gross neurological examination did not reveal any focal deficits. SKIN: No rashes. no petechiae. - Labs CBC & Chem 7: 08/04/22 06:23 08/04/22 06:23 Assessment and Plan Assessment: 1. Acute influenza A tracheobronchitis with secondary COPD exacerbation and secondary bacterial superinfection/acute tracheobronchitis - Patient has been admitted to ICU; has been placed on IV Solu-Medrol 60 mg every 6 hours; bronchodilator nebulizer treatments 4 times a day and when necessary; Pulmicort nebulizer treatments twice a day - Patient has been placed on Tamiflu 75 mg by mouth twice a day - Ceftriaxone 1 g IV daily 2. Acute on chronic hypoxic and hypercapnic respiratory failure -- currently on BiPAP at a pressure of 12/6 cm of water at an FiO2 of 40% - Patient has been placed on steroid and bronchodilator nebulizer treatments 4 times a day and when necessary 3. 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 History of coronary artery disease. The patient has multivessel and the patient underwent three-vessel bypass surgery, off pump 4. Elevated Troponin Leak secondary to above; typr 2 OK, demand/supplied mismatch 5. Acute on chronic systolic heart failure EF 40-45% - Lasix 40 mg IV every 12 hours; we will monitor strict MIKEY's, daily weights, renal function and electrolytes along with low-salt and fluid restricted diet 6. Chronic atrial fibrillation with rapid ventricular response; likely related to hypoxic respiratory failure resulting from influenza A infection and COPD exacerbation - Continue with metoprolol - continue anticoagulation with Eliquis - Metal Alloy Scientist consult 7. Severe peripheral vascular disease, post bilateral iliac artery stenting and the patient has undergone previous left superficial femoral artery atherectomy , angioplasty and stenting. - Patient has been evaluated and treated by Dr. Montoya; consult has been placed 8. Hypertension; patient takes lisinopril and metoprolol at home which has been placed on hold; blood pressure currently stable on IV Cardizem infusion 9. Hyperlipidemia; Lipitor 80 mg by mouth daily at bedtime 10. Obstructive sleep apnea without CPAP therapy on outpatient basis; patient is currently on BiPAP DVT prophylaxis; SCDs/systemic anticoagulation CODE STATUS; full code
--- NOTE | 2022-08-05 19:59 | PN ---
PROGRESS NOTE SUBJECTIVE: Sharmila is a 76-year-old lady who was admitted to hospital with a combination of COPD and CHF exacerbations, has chronic peripheral arterial disease with chronic ischemic legs bilaterally. This morning she is feeling better. Shortness of breath has improved. Blood pressure is poorly controlled. OBJECTIVE: VITAL SIGNS: Heart rate is 73 beats per minute, blood pressure is 172/80, and respiratory rate of 16. CHEST: Reveals bilateral rhonchi with rare crackles. HEART: Reveals 1st and 2nd. DICTATION ENDS ABRUPTLY. MMODL / IJN: [id number] /
--- NOTE | 2022-08-05 20:02 | PN ---
PROGRESS NOTE SUBJECTIVE: A 76-year-old lady who is admitted to hospital with COPD and CHF exacerbations, currently being treated with intravenous diuretics, antibiotic, and nebulizers with improvement in her symptoms. She has history of atrial fibrillation. OBJECTIVE: GENERAL: Today, comfortable at rest. VITAL SIGNS: Blood pressure is elevated at 172/83, respiratory rate is 18. CHEST: Reveals diminished air entry with occasional rhonchi. HEART: Reveals first and second heart sounds, an ejection systolic murmur in the aortic area. ABDOMEN: Soft. EXTREMITIES: Reveal chronic ischemic changes and diminished pulses. LABORATORY DATA: Show a hemoglobin of 12.5, platelet count is 180, potassium is 4.3 creatinine is 0.7. ASSESSMENT: 1. Congestive heart failure. 2. Chronic obstructive pulmonary disease exacerbation. 3. Peripheral arterial disease. PLAN: The patient will continue current measures including IV Lasix. Her COPD is definitely improved from yesterday. Continue current medications and I will continue IV Lasix for another day at least. MMODL / IJN: [id number] /
[2022-08-05] MEDS: NICOTINE 21MG/24HR PATCH TRANSDERM SCH (20:34)
[2022-08-05] MEDS: ATORVASTATIN 80 MG TAB PO SCH (20:34)
[2022-08-06] MEDS: HYDROcodone/APAP 7.5-325MG 1 EACH TAB PO PRN ×3 (00:34→11:52)
[2022-08-06] MEDS: methylPREDNISolone SOD SUCCI 125 MG/2 ML VIAL IV SCH (05:09)
[2022-08-06] MEDS: GABAPENTIN 300 MG CAP PO SCH (08:01)
[2022-08-06] MEDS: FUROSEMIDE 10 MG/ML 4 ML VIAL IV SCH (08:02)
[2022-08-06] MEDS: METOPROLOL TARTRATE 50 MG TAB PO SCH (08:02)
[2022-08-06] MEDS: lisinopriL 10 MG TAB PO SCH (08:02)
[2022-08-06] MEDS: APIXABAN 5 MG TAB PO SCH (08:02)
[2022-08-06] MEDS: ESCITALOPRAM 10 MG TAB PO SCH (08:02)
--- NOTE | 2022-08-06 08:18 | XR ---
EXAMINATION TYPE: XR chest 1V portable DATE OF EXAM: 08/06/2022 COMPARISON: 08/03/2022 HISTORY: Shortness of breath TECHNIQUE: Single frontal view of the chest is obtained. FINDINGS: Postoperative changes elevated left hemidiaphragm coarsened interstitium with no pneumotho rax. Subsegmental changes in left lung base. IMPRESSION: 1. Improvement of the interstitium suggestive of increasing interstitial pneumonia or pneumonitis. 2. Basilar atelectasis or infiltrate stable
[2022-08-06] MEDS: IPRATROPIUM-ALBUTEROL 3 ML NEB INHALATION SCH ×3 (08:28→15:54)
[2022-08-06] MEDS: BUDESONIDE 0.5 MG/2 ML NEBU INHALATION SCH (08:28)
[2022-08-06] MEDS: FORMOTEROL FUMARATE 20 MCG/2 ML NEBU INHALATION SCH (08:28)
[2022-08-06 09:22] VITALS: BP 178/82; RESP 16; TEMP 97.8
--- NOTE | 2022-08-06 11:39 | P.PN ---
Subjective Progress Note Date: 08/06/22 HISTORY OF PRESENT ILLNESS: Patient examined this morning. She is sitting up in the chair. She denies chest pain or pressure. She currently denies shortness of breath. She states she feels like she is back to her baseline. Monitor reveals sinus mechanism. She is currently receiving IV Lasix. Vital signs are stable. PHYSICAL EXAM: VITAL SIGNS: Reviewed. GENERAL: Well-developed in no acute distress. NECK: Supple. No JVD or thyromegaly LUNGS: Respirations even and unlabored. Lungs essentially clear to auscultation bilaterally, diminished. HEART: Regular rate and rhythm. S1 and S2 heard. Systolic murmur noted. EXTREMITIES: Normal range of motion. No clubbing or cyanosis. Peripheral pulses intact. No lower extremity edema ASSESSMENT: Acute COPD exacerbation Acute on chronic heart failure with mildly reduced ejection fraction, 40-45% Paroxysmal atrial fibrillation PLAN: Discontinue IV lasix Begin oral lasix 40mg BID Continue additional cardiac medications Patient is stable for discharge home today from a cardiac standpoint Patient to follow up in the office with Dr. Adame Nurse practitioner note has been reviewed by physician. Signing provider agrees with the documented findings, assessment, and plan of care. Objective - Vital Signs Vital signs: Vital Signs Temp 97.8 F 08/06/22 08:00 Pulse 75 08/06/22 11:29 Resp 16 08/06/22 08:00 BP 178/82 08/06/22 08:00 Pulse Ox 98 08/06/22 08:00 FiO2 40 08/03/22 08:00 Intake & Output 08/05/22 08/06/22 08/06/22 18:59 06:59 18:59 Intake Total 550 240 Output Total 1000 640 Balance -450 -640 240 Weight 47.3 kg 48.6 kg Intake: IV 50 cefTRIAXone 1 gm In 50 Sodium Chloride 0.9% 50 ml @ 100 mls/hr IVPB Q24HR [facility] Rx#:[id number] Oral 500 240 Output: Urine 1000 640 Other: Voiding Method Indwelling Catheter Indwelling Catheter Indwelling Catheter - Labs CBC & Chem 7: 08/04/22 06:23 08/04/22 06:23
[2022-08-06 11:40] LABS: Glucose,Whole Blood 184 mg/dL (70-110)
--- NOTE | 2022-08-06 11:50 | P.PN ---
Subjective From records 76-year-old female past medical history of A. fib on antiplatelet medication, congestive heart failure, COPD on 3 L home O2 who presents emergency room in respiratory distress. Patient called EMS for increased worker breathing which h as been going on for the past 3 days. They found the patient to be wearing her 3 L of oxygen however she was saturating in the 70s. When they attempted to get the patient up and ambulate to the stretcher she dropped down into the 50s. She was placed on CPAP and brought into the hospital with improvement in her saturations up to 92%. She was given 125 of Solu-Medrol, 2 albuterol treatments with a Atrovent treatments. They also gave her a nitro and 4 baby aspirins. Patient denies any chest pain. Admits to a chronic cough without any sputum production. No fevers. No sick contacts. Admits to some increase in her lower extremity edema. Patient has been taking her blood thinner as directed without any missed doses. She has been intubated previously for her breathing. No other alleviating, mail order sorter modifying factors -- LABS: White count 14.7, hemoglobin 13.7, platelets 180, arterial blood gas-pH 7.45, CO2 40, O2 58, HCO3 28; sodium 139, potassium 3.7, B1 19, creatinine 0.49, lactic acid 2.5, troponin 0.327, 0.612 EKG: Atrial fibrillation with rapid ventricular response IMAGING: Chest x-ray dated 08/01/2022 demonstrates some interstitial infiltrates that could be interstitial pneumonia or pulmonary fibrosis and similar to old exam, no obvious heart failure. VITALS: Temp 98.3, heart rate 122, respirations 20, blood pressure 119/75, O2 saturation 97% on BiPAP at 40% FiO2 Overnight, she took off the BiPAP. She was already getting better and this morning she is on 4 L of oxygen by nasal cannula. She seems to be comfortable in her pulse ox is around 93%. The patient is receiving bronchodilators right now and she is on DuoNeb nebulized treatments [id number]. She is also on IV Solu-Medrol 60 mg every 6 hours. She is on Tamiflu 75 mg by mouth twice a day. She also was found to have elevated pro-calcitonin level and she was started on empiric antibiotic coverage with IV Rocephin. She is receiving Lasix 40 mg IV every 12 hours and she is achieving a negative fluid balance. --Repeat chest x-ray from today is showing pulmonary vascular congestion and CHF and cardiomegaly 08/04/2022 Patient feels better, she feels she can go home soon. She is less tachypneic She saturating 98% infarcted or significant nasal cannula Leukocytosis resolved She remains on multiple medication including ceftriaxone, Tamiflu, Solu-Medrol 60 mg, IV Lasix 40 mg twice daily, home dose of Eliquis and metoprolol 75 mL/h 08/05/2022 Patient to continue to improve slowly and gradually, her oxygen requirements doctor for a permanent today, saturation of her oxygen is 98% Leukocytosis resolved Patient today is to be transferred out of the ICU pending bed availability. She remains on the same treatment of Tamiflu, ceftriaxone, IV Lasix and IV Solu- Medrol. 08/06/2022 Patient continued to improve slowly and gradually. Patient's also go home whenever she is medically ready. She is currently on 4 L oxygen via is a cannula. at home she states she is takes 2.5-3.5 L/m. She denies significant dyspnea at rest. She has a good appetite. No other complaints and no diarrhea. Yeni Rosenbaum to the patient pulmonary team still on the case. She is currently on IV ceftriaxone, today's last day of her Tamiflu. She is on prednisone 40 mg and oral Lasix. Objective - Vital Signs Vital signs: Vital Signs Temp 97.8 F 08/06/22 08:00 Pulse 75 08/06/22 11:39 Resp 16 08/06/22 08:00 BP 178/82 08/06/22 08:00 Pulse Ox 98 08/06/22 08:00 FiO2 40 08/03/22 08:00 Intake & Output 08/05/22 08/06/22 08/06/22 18:59 06:59 18:59 Intake Total 550 240 Output Total 1000 640 Balance -450 -640 240 Weight 47.3 kg 48.6 kg Intake: IV 50 cefTRIAXone 1 gm In 50 Sodium Chloride 0.9% 50 ml @ 100 mls/hr IVPB Q24HR [facility] Rx#:[id number] Oral 500 240 Output: Urine 1000 640 Other: Voiding Method Indwelling Catheter Indwelling Catheter Indwelling Catheter - Exam GENERAL: The patient is alert and oriented x3, not in any acute distress. Well developed, well nourished. HEENT: Pupils are round and equally reacting to light. EOMI. No scleral icterus. No conjunctival pallor. Normocephalic, atraumatic. No pharyngeal erythema. No thyromegaly. CARDIOVASCULAR: S1 and S2 present. No murmurs, rubs, or gallops. PULMONARY: Chest is clear to auscultation, no wheezing .bilateral crepitation ABDOMEN: Soft, nontender, nondistended, normoactive bowel sounds. No palpable organomegaly. MUSCULOSKELETAL: No joint swelling or deformity. EXTREMITIES: No cyanosis, clubbing, or pedal edema. NEUROLOGICAL: Gross neurological examination did not reveal any focal deficits. SKIN: No rashes. no petechiae. - Labs CBC & Chem 7: 08/04/22 06:23 08/04/22 06:23 Labs: Abnormal Lab Results - Last 24 Hours (Table) 08/06/22 Range/Units 11:32 POC Glucose (mg/dL) 184 H (70-110) mg/dL Assessment and Plan Assessment: 1. Acute influenza A tracheobronchitis with secondary COPD exacerbation and secondary bacterial superinfection/acute tracheobronchitis -Currently she is on prednisone 40 mg; bronchodilator nebulizer treatments 4 times a day and when necessary; Pulmicort nebulizer treatments twice a day - Patient has been placed on Tamiflu 75 mg by mouth twice a day - Ceftriaxone 1 g IV daily 2. Acute on chronic hypoxic and hypercapnic respiratory failure -- currently on BiPAP at a pressure of 12/6 cm of water at an FiO2 of 40% - Patient has been placed on steroid and bronchodilator nebulizer treatments 4 times a day and when necessary 3. 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 History of coronary artery disease. The patient has multivessel and the patient underwent three-vessel bypass surgery, off pump 4. Elevated Troponin Leak secondary to above; typr 2 DC, demand/supplied mismatch 5. Acute on chronic systolic heart failure EF 40-45% - Lasix 40 mg IV every 12 hours; we will monitor strict MIKEY's, daily weights, renal function and electrolytes along with low-salt and fluid restricted diet 6. Chronic atrial fibrillation with rapid ventricular response; likely related to hypoxic respiratory failure resulting from influenza A infection and COPD exacerbation - Continue with metoprolol - continue anticoagulation with Eliquis - Gis Professor consult 7. Severe peripheral vascular disease, post bilateral iliac artery stenting and the patient has undergone previous left superficial femoral artery atherectomy , angioplasty and stenting. - Patient has been evaluated and treated by Dr. Montoya; consult has been placed 8. Hypertension; patient takes lisinopril and metoprolol at home which has been placed on hold; blood pressure currently stable on IV Cardizem infusion 9. Hyperlipidemia; Lipitor 80 mg by mouth daily at bedtime 10. Obstructive sleep apnea without CPAP therapy on outpatient basis; patient is currently on BiPAP DVT prophylaxis; SCDs/systemic anticoagulation CODE STATUS; full code
[2022-08-06] MEDS: OSELTAMIVIR 60 MG/10 ML ORAL SYRINGE PO SCH (11:52)
--- NOTE | 2022-08-06 12:52 | P.PN ---
Subjective Progress Note Date: 08/06/22 76-year-old female patient that was admitted thru the emergency department for shortness of breath. Has extensive medical history including paroxysmal atrial fibrillation on Eliquis, LV thrombus, TIA, coronary artery disease with history of stenting and three-vessel coronary artery bypass in November 2020 and the left atrial appendage clipping, chronic congestive heart failure with systolic dysfunction, ischemic cardiomyopathy, mitral valve prolapse with previous surgery, hypertension, hyperlipidemia, previous episode of pneumonia, COPD, peripheral vascular disease with previous bilateral iliac arthrectomy and stent placement, breast cancer with history of right mastectomy currently on Femara. Patient also has history of multiple sclerosis, and obstructive sleep apnea without CPAP on outpatient basis. The patient has advanced COPD. The patient has started smoking cigarettes. She was in the hospital back in December 2021 for acute hypoxic/hypercapnic respiratory failure due to COPD exacerbation had mucus plugging involving left mainstem bronchus and complete collapse of the left lung. This was active uterine E. coli infection and the patient underwent bronchoscopy and a bronchial lavage and she required intubation mechanical ventilation and ultimately she recovers. During the course of her illness, she also suffered a acute non-ST segment elevation myocardial infarction. Noted the patient is known to have coronary artery disease, three-vessel bypass surgery in November 2020 was done and the patient has undergone previous stenting. She has ischemic cardiomyopathy. She was also maintained on oxygen at 3 L/m nasal cannula. She was living at home and she was still smoking 1 pack of cigarettes a day. During this current admission, the patient came into the emergency for worsening shortness of breath. She was found to be hypoxic at home with a pulse ox of 70% on 3 L of oxygen by nasal cannula. She attempted to get up and ambulate and she dropped even further down to the 50s. EMS arrived to the scene. The patient was placed on CPAP/BiPAP and the patient was brought in to the emergency. Here in the emergency, the patient is currently on a BiPAP at a pressure of 12/6 cm of water with FiO2 of 40%. She is in atrial fibrillation and slightly tachycardic in the heart disease ranging between 110 and 120. She was given bronchodilators and she was given steroids. Chest x-ray was done and there is some mild pulmonary congestion. Small effusions. Increased interstitial markings. No airspace disease. He is awake and alert and she is communicating. While on her BiPAP she had a blood gas that showed a pH of 7.4 with a pCO2 of 40 and pO2 of 58 and this was on FiO2 of 35%. Lactic acid level was at 2.5. Troponins were elevated at 0.0 0.6 respectively. BUN is at 19 with a creatinine of 0.4. She has a chronic dry wound/ulcer over the anterior aspect of the right lower extremity. It is unstageable as the patient has a necrotic eschar covering the wounds. She also has evidence of chronic vascular insufficiency in the lower extremities and chronic cyanosis of diminished pulses. Note that the patient also tested positive for influenza A. Covid 19 testing was negative. RSV was negative. On 08/03/2022, the patient seems to much more comfortable compared to yesterday. I saw this patient in emergency department yesterday with significant respiratory distress. At that time she was diagnosed having influenza A tracheobronchitis and secondary COPD and CHF exacerbation. Immediately, the patient was placed on a BiPAP. She was subjected to Tamiflu. She was given diuretics patient was given bronchodilators and steroids. Overnight, she took off the BiPAP. She was already getting better and this morning she is on 4 L of oxygen by nasal cannula. She seems to be comfortable in her pulse ox is around 93%. The patient is receiving bronchodilators right now and she is on DuoNeb nebulized treatments [id number]. She is also on IV Solu-Medrol 60 mg every 6 hours. She is on Tamiflu 75 mg by mouth twice a day. She also was found to have elevated pro-calcitonin level and she was started on empiric antibiotic coverage with IV Rocephin. She is receiving Lasix 40 mg IV every 12 hours and she is achieving a negative fluid balance. On today's evaluation, cardiac rhythm is atrial fibrillation and rate is other better control. She remains on Cardizem drip at 5 mg and hour and was being titrated for her blood pressure control. She takes and coagulation with Eliquis 5 mg by mouth twice a day which has been resumed. She is also on metoprolol on outpatient basis at a dose of 75 mg by mouth twice a day. No chest pain. No angina. Pulses of the lower extremities are diminished. They're obtainable by Doppler signals. Most recent BP is 113/68. Vascular surgery has been consulted regarding her diminished pulses in lower extremities and the wound that essentially unstageable with a large eschar covering the surface of the wound and this wound is located in the anterior aspect of the right lower extremity. There is no evidence of any surrounding cellulitis at this point in time. Tadeo catheter is in place. The patient was seen by cardiology. Alert and awake and oriented. Following commands and answering questions appropriately. Repeat chest x-ray from today is showing pulmonary vascular congestion and CHF and cardiomegaly. Reevaluated today on 08/04/2022, patient remains in the ICU, she is now on 5 L nasal cannula, does not seem to be in any distress. Remains on Tamiflu, remains on Rocephin, she is also on Lasix 40 mg twice a day. Patient was noted to have slightly elevated pro-calcitonin level of 1.59, hence the Rocephin will remain the same, she was also noted to have elevated BNP of 10,900, remains on Lasix, she is also noted to have elevated troponin. Patient is not requiring BiPAP today, getting better steadily. Remains on bronchodilators including DuoNeb, is also on IV Solu-Medrol. And on Tamiflu. Patient is off Cardizem today for her atrial fibrillation, her leukocytosis has resolved. Patient is on her home eliquis she is also on metoprolol WBC count today is 10.1 hemoglobin is 12.5. Electrolytes are normal renal profile is normal. Chest x-ray continues to show multifocal airspace opacities. Consistent with multifocal pneumonia, possibly superimposed pneumonia in addition to her influenza infection Reevaluated today 08/05/2022, patient remains in the ICU, she is basically an overflow. Remains on 4 L nasal cannula, she is off BiPAP, she was on BiPAP 12/ at 40%, still receiving Tamiflu for one more day, she is not receiving any other infusions. Patient remains on bronchodilators and she is also on steroids, she is on ceftriaxone, her last chest x-ray showed multifocal infiltrates clinically the patient continues to have intermittent cough and wheezing, and on physical examination continues to have significant wheezing today. Hence I believe the patient is not quite ready for discharge planning. WBC count is 10.1 hemoglobin is 12.5 electrodes are normal renal profile is normal bicarb is 34. Pro- calcitonin level on admission was 1.59, hence the patient was treated e mpirically with antibiotics for potentially superimposed bacterial pneumonia although the presentation mostly a presentation of influenza A infection The patient is seen today July 2022 in follow-up on the selective care unit. She is currently sitting up in a chair at the bedside. Awake and alert in no acute distress. She is maintaining O2 saturations in the 90s on 4 L/m per nasal cannula. Today's chest x-ray reveals improvement of the interstitium suggestive of improving interstitial pneumonia or pneumonitis. Basilar atelectasis stable. Blood glucose 184. She is continued on DuoNeb inhalations, Pulmicort and Perforomist inhalations. She is continued on Tamiflu. Remains on oral diuretics. Remains on ceftriaxone. Anticoagulated with Eliquis. Currently in a -1 L balance. Objective - Vital Signs Vital signs: Vital Signs Temp 97.8 F 08/06/22 08:00 Pulse 77 08/06/22 12:14 Resp 16 08/06/22 12:14 BP 178/82 08/06/22 08:00 Pulse Ox 98 08/06/22 08:00 FiO2 40 08/03/22 08:00 Intake & Output 08/05/22 08/06/22 08/06/22 18:59 06:59 18:59 Intake Total 550 240 Output Total 1000 640 Balance -450 -640 240 Weight 47.3 kg 48.6 kg Intake: IV 50 cefTRIAXone 1 gm In 50 Sodium Chloride 0.9% 50 ml @ 100 mls/hr IVPB Q24HR [facility] Rx#:[id number] Oral 500 240 Output: Urine 1000 640 Other: Voiding Method Indwelling Catheter Indwelling Catheter Indwelling Catheter - Exam GENERAL: Revealed a 76-year-old female, up in a chair at the bedside, on 4 liters nasal cannula, not in any distress. HEENT: No evidence of pallor. Normocephalic, atraumatic. No pharyngeal erythema. No thyromegaly. CARDIOVAnormal S1 and S2, no S3 gallop. No murmur. Chest: Chest is clear to auscultation, rhonchi and wheezing noted bilaterally today. ABDOMEN: Soft, nontender, nondistended, normoactive bowel sounds. No palpable organomegaly. MUSCULOSKELETAL: no deformities and no limitation in range of motion Extremities:: No cyanosis, clubbing, or pedal edema. diminished distal pulses bilaterally NEUROLOGICAL: alert oriented 3 no gross focal deficit. SKIN: No rashes. - Labs CBC & Chem 7: 08/04/22 06:23 08/04/22 06:23 Labs: Abnormal Lab Results - Last 24 Hours (Table) 08/06/22 Range/Units 11:32 POC Glucose (mg/dL) 184 H (70-110) mg/dL Assessment and Plan Assessment: Acute on chronic hypoxic and hypercapnic respiratory failure secondary to an acute exacerbation of COPD and acute influenza a tracheobronchitis Acute exacerbation of COPD Acute influenza A tracheobronchitis Suspect superimposed bacterial pneumonia with elevated pro calcitonin level, remains on Rocephin. Acute on chronic systolic congestive heart failure, ejection fraction 40-45%. Remains on Lasix History of coronary artery disease. Severe peripheral vessel occlusive disease Dyslipidemia Benign essential hypertension history of obstructive sleep apnea syndrome Troponin leak. Lab: The patient was seen and evaluated Chest x-ray, labs and medications reviewed Cleared for discharge from the pulmonary standpoint Complete prednisone taper starting at 40 mg daily for 4 days Continue home pulmonary medications Continue home oxygen Patient refusing subacute rehabilitation Plan is for home with home care Follow up in our office in 1 week I have personally seen and examined the patient, performed the documentation and the assessment and plan as written. Number of minutes spent on the visit: 10.
[2022-08-06] MEDS ORDERED: FUROSEMIDE 40 MG TAB PO SCH (16:00)
[2022-08-06 16:05] VITALS: PULSE 78
[2022-08-06] MEDS ORDERED: LIDOCAINE 4% CREAM 5 GM TUBE TOPICAL ONE (16:35)
--- NOTE | 2022-08-06 20:32 | P.DS ---
Providers Date of admission: 08/01/22 21:22 Attending physician: Quintin Elizondo Consults: 08/01/22 21:16 Consult Physician Urgent Consulting Provider: Mark Travis Consult Reason/Comments: acute bipap dependant resp failure, influenza a Do you want consulting provider notified?: Yes 08/02/22 01:14 Consult Physician Urgent Consulting Provider: [facility] Consult Reason/Comments: afib with rvr Do you want consulting provider notified?: Yes 08/03/22 13:17 Consult Physician Routine Consulting Provider: Aakash Adame Consult Reason/Comments: Chronic wound right leg; vascular; physician performed previous procedure Do you want consulting provider notified?: Yes, Notify in am Primary care physician: Sydnie Reynolds [facility] Course: Diagnoses: 1. Acute influenza A tracheobronchitis with secondary COPD exacerbation and secondary bacterial superinfection/acute tracheobronchitis 2. Acute on chronic hypoxic and hypercapnic respiratory failure 3. Cellulitis bilateral lower extremities; patient does have history of recurrent cellulitis , improved with antibiotic 3. History of coronary artery disease. The patient has multivessel and the patient underwent three-vessel bypass surgery, off pump 4. Elevated Troponin Leak secondary to above; typr 2 CO, demand/supplied mismatch 5. Acute on chronic systolic heart failure EF 40-45% 6. Chronic atrial fibrillation with rapid ventricular response; likely related to hypoxic respiratory failure resulting from influenza A infection and COPD exacerbation 7. Severe peripheral vascular disease, post bilateral iliac artery stenting and the patient has undergone previous left superficial femoral artery atherectomy , angioplasty and stenting. 8. Hypertension; patient takes lisinopril and metoprolol at home which has been placed on hold; blood pressure currently stable on IV Cardizem infusion 9. Hyperlipidemia; Lipitor 80 mg by mouth daily at bedtime 10. Obstructive sleep apnea without CPAP therapy on outpatient basis; patient is currently on BiPAP Hospital course: 76-year-old female past medical history of A. fib on antiplatelet medication, congestive heart failure, COPD on 3 L home O2 (2.5-3.5 L/m as she states ) who presents emergency room in respiratory distress. Patient found to have acute influenza infection with tracheobronchitis located by secondary bacterial infection, she was treated with Tamiflu, she office treatment today also ceftriaxone. Patient developed that by pulmonary service and corrugator. She was treated for acute COPD exacerbation and hypoxia and acute CHF. Also she has A. fib with RVR on admission responded to treatment with Cardizem drip and later on with beta patti. Patient also on liquids which she has a, she confirms to me. Patient also treated with IV diuretics and IV Solu-Medrol which are switched to oral medication upon discharge with tapered steroids and oral Lasix 40 mg twice a day Today her breathing significantly improved and back to baseline, she denies any chest pain or other new symptoms. Patient feels she is close to her baseline, patient was to be discharged home today. Patient was cleared for discharge by both cardiology and pulmonary service. Patient conference to me she has oxygen at home. Patient denies any other new symptoms. Problems and management plan were discussed with the patient and he verbalized understanding and acceptance Patient was found stable and can be discharged home in guarded prognosis however he needs follow-up as an outpatient. Patient was instructed to follow up with PCP Dr. Reynolds within one week and patient agrees Patient was instructed to follow up with corrugator Dr. Adame in one week and computer security coordinator Dr. Travis in one week and she agrees to call and make on appointments Patient declined rehab recommended for her, risks benefits explained for her especially she is on Eliquis Physical exam Gen: patient is a AAOx3, no distress CVS: S1-S2, RRR, no murmur Lungs: B/L CTA, no wheezing. Nasal cannula in place Abdomen: soft, no distention, no tenderness, positive bowel sounds Extremity: no leg edema or induration Time spent more than 35 minutes Patient Condition at Discharge: Serious Plan - Discharge Summary New Discharge Prescriptions: New cefUROXime axetiL [Ceftin] 500 mg PO BID 6 Days #3 tab Furosemide [Lasix] 40 mg PO BID@0900,1600 #60 tab predniSONE 10 mg PO DIRECTED #40 tab Continue Atorvastatin [Lipitor] 80 mg PO HS Apixaban [Eliquis] 5 mg PO BID #0 Fluticasone/Umeclidin/Vilanter [Trelegy Ellipta 100-62.5-25] 1 puff INHALATION RT-DAILY PRN PRN Reason: Shortness Of Breath Letrozole [Femara] 2.5 mg PO DAILY Gabapentin [Neurontin] 300 mg PO BID Escitalopram Oxalate [Lexapro] 10 mg PO DAILY Metoprolol Tartrate [Lopressor] 75 mg PO BID lisinopriL [Zestril] 10 mg PO DAILY 30 Days #60 tab Nitroglycerin Sl Tabs [Nitrostat] 0.4 mg SUBLINGUAL Q5M PRN PRN Reason: Chest Pain Potassium Chloride ER [K-Dur 20] 20 meq PO DAILY #30 tab HYDROcodone/APAP 7.5-325MG [[place] 7.5-325] 1 tab PO Q6HR PRN PRN Reason: Pain Changed Albuterol Sulfate [Ventolin HFA] 1 puff INHALATION Q6H PRN #1 each PRN Reason: Shortness Of Breath Discontinued ALPRAZolam [Xanax] 0.25 mg PO BID PRN PRN Reason: Anxiety Furosemide [Lasix] 40 mg PO BID 30 Days #120 tab Discharge Medication List Atorvastatin [Lipitor] 80 mg PO HS 08/02/20 [History] Apixaban [Eliquis] 5 mg PO BID #0 08/22/21 [Rx] Fluticasone/Umeclidin/Vilanter [Trelegy Ellipta 100-62.5-25] 1 puff INHALATION RT-DAILY PRN 11/01/21 [History] Letrozole [Femara] 2.5 mg PO DAILY 01/04/22 [History] Nitroglycerin Sl Tabs [Nitrostat] 0.4 mg SUBLINGUAL Q5M PRN 04/16/22 [History] Escitalopram Oxalate [Lexapro] 10 mg PO DAILY 07/15/22 [History] Gabapentin [Neurontin] 300 mg PO BID 07/15/22 [History] Metoprolol Tartrate [Lopressor] 75 mg PO BID 07/15/22 [History] Potassium Chloride ER [K-Dur 20] 20 meq PO DAILY #30 tab 07/17/22 [Rx] lisinopriL [Zestril] 10 mg PO DAILY 30 Days #60 tab 07/17/22 [Rx] HYDROcodone/APAP 7.5-325MG [[place] 7.5-325] 1 tab PO Q6HR PRN 08/01/22 [History] Albuterol Sulfate [Ventolin HFA] 1 puff INHALATION Q6H PRN #1 each 08/06/22 [Rx] Furosemide [Lasix] 40 mg PO BID@0900,1600 #60 tab 08/06/22 [Rx] cefUROXime axetiL [Ceftin] 500 mg PO BID 6 Days #3 tab 08/06/22 [Rx] predniSONE 10 mg PO DIRECTED #40 tab 08/06/22 [Rx] Follow up Appointment(s)/Referral(s): Aakash Adame MD [STAFF PHYSICIAN] - 1 Week Sydnie Reynolds MD [Primary Care Provider] - 1-2 days Mark Travis MD [STAFF PHYSICIAN] - 1 Week Patient Instructions/Handouts: A-fib (Atrial Fibrillation) (DC), Influenza (DC) Activity/Diet/Wound Care/Special Instructions: heart healthy diet activity is restricted till you see your doctor continue with home oxygen Discharge Disposition: HOME WITH HOME HEALTH SERVICES
[2022-08-07] MEDS ORDERED: predniSONE 20 MG TAB PO SCH (09:00)
== END 2022-08-06 18:42 | disposition home health service (06) | DRG 193 ==
LOC: EC 16:51 → 1SOBS 21:22 → 3SCARD 08-02 00:19 → 2SICU 08-02 11:02 → 3SCARD 08-06 06:32
PROVIDERS: ADMIT Hospitalist; ATTEND Hospitalist
DX: J10.1 Influenza due to other identified influenza virus with other respiratory manifestations (principal); I21.A1 Myocardial infarction type 2; I50.23 Acute on chronic systolic (congestive) heart failure; J96.21 Acute and chronic respiratory failure with hypoxia; J96.22 Acute and chronic respiratory failure with hypercapnia; J44.0 Chronic obstructive pulmonary disease with (acute) lower respiratory infection; J44.1 Chronic obstructive pulmonary disease with (acute) exacerbation; J98.11 Atelectasis; L03.116 Cellulitis of left lower limb; L03.115 Cellulitis of right lower limb; F17.210 Nicotine dependence, cigarettes, uncomplicated; J20.9 Acute bronchitis, unspecified; D64.9 Anemia, unspecified; G62.9 Polyneuropathy, unspecified; Z95.820 Peripheral vascular angioplasty status with implants and grafts; E78.5 Hyperlipidemia, unspecified; F32.A Depression, unspecified; F41.9 Anxiety disorder, unspecified; G35 Multiple sclerosis; R23.0 Cyanosis; G47.33 Obstructive sleep apnea (adult) (pediatric); I11.0 Hypertensive heart disease with heart failure; Z99.81 Dependence on supplemental oxygen; I25.10 Atherosclerotic heart disease of native coronary artery without angina pectoris; I25.5 Ischemic cardiomyopathy; I48.0 Paroxysmal atrial fibrillation; Z90.11 Acquired absence of right breast and nipple; Z20.822 Contact with and (suspected) exposure to COVID-19; Z79.01 Long term (current) use of anticoagulants; Z79.811 Long term (current) use of aromatase inhibitors; Z79.899 Other long term (current) drug therapy; Z85.3 Personal history of malignant neoplasm of breast; Z80.3 Family history of malignant neoplasm of breast; Z86.73 Personal history of transient ischemic attack (TIA), and cerebral infarction without residual deficits; Z95.1 Presence of aortocoronary bypass graft; Z95.5 Presence of coronary angioplasty implant and graft; Z71.3 Dietary counseling and surveillance; Z87.01 Personal history of pneumonia (recurrent)
CPT/HCPCS: 36415; 36600; 71045; 80048; 80053; 82805; 83605; 83735; 83880; 84132; 84145; 84484; 85025; 85027; 85610; 85730; 87636; 93005; 94640; 94660; 94760; 96365; 96367; 96375; 96376; 99291

== ENCOUNTER 2022-10-27 20:50 | Inpatient (IN) | payer MEDICARE ==
--- NOTE | 2022-10-27 23:08 | ED ---
General Adult HPI - General Chief complaint: Weakness Stated complaint: Weakness Time Seen by Provider: 10/27/22 21:04 Source: EMS Mode of arrival: EMS Limitations: physical limitation - History of Present Illness Initial comments: This is a 77 year old female with a past medical history including hypertension, COPD, CHF and peripheral vascular disease presents emergency Department with her family for increasing weakness and lethargy. It was reported the patient slept in her wheelchair at the kitchen table for approximately 12 hours today. It was noted the patient was tired yesterday as well however the family was not concerned until today when she was continuously sleeping all day long. The patient did state that she didn't have any pain but did state that she was tired. They did report that this happened at the same time previously when she had a UTI. The patient herself denied any acute pain and was ANO 2. The patient's family stated that she has not been complain about any pain but was having intermittent fevers and chills at home. They denied any recent sick contacts. The patient was resting in bed comfortably. - Related Data Home Medications Medication Instructions Recorded Confirmed Atorvastatin [Lipitor] 80 mg PO HS 08/02/20 10/27/22 Fluticasone/Umeclidin/Vilanter 1 puff INHALATION RT-DAILY PRN 11/01/21 10/27/22 [Trelegy Ellipta 100-62.5-25] Letrozole [Femara] 2.5 mg PO DAILY 01/04/22 10/27/22 Nitroglycerin Sl Tabs [Nitrostat] 0.4 mg SUBLINGUAL Q5M PRN 04/16/22 10/27/22 Metoprolol Tartrate [Lopressor] 75 mg PO BID 07/15/22 10/27/22 ALPRAZolam [Xanax] 0.25 mg PO HS 09/16/22 10/27/22 Acetaminophen Tab [Tylenol] 500 - 1,500 mg PO Q6H PRN 09/16/22 10/27/22 Albuterol Sulfate [Ventolin HFA] 1 puff INHALATION RT-Q6H PRN 09/16/22 10/27/22 Gabapentin [Neurontin] 300 mg PO HS 09/16/22 10/27/22 Escitalopram [Lexapro] 20 mg PO DAILY 10/27/22 10/27/22 traMADol HCL 50 mg PO HS PRN 10/27/22 10/27/22 Previous Rx's Medication Instructions Recorded Apixaban [Eliquis] 5 mg PO BID #0 08/22/21 Potassium Chloride ER [K-Dur 20] 20 meq PO DAILY #30 tab 07/17/22 lisinopriL [Zestril] 10 mg PO DAILY 30 Days #60 tab 07/17/22 Furosemide [Lasix] 40 mg PO BID@0900,1600 #60 tab 08/06/22 Collagenase [Santyl Ointment] 1 applic TOPICAL DAILY 30 Days #1 09/23/22 each Allergies Allergy/AdvReac Type Severity Reaction Status Date / Time sumatriptan [From Imitrex] AdvReac Chest Pain Verified 10/27/22 22:04 Review of Systems ROS Statement: Those systems with pertinent positive or pertinent negative responses have been documented in the HPI. ROS Other: All systems not noted in ROS Statement are negative. Past Medical History Past Medical History: Atrial Fibrillation, Coronary Artery Disease (CAD), Cancer, Heart Failure, COPD, CVA/TIA, Hyperlipidemia, Hypertension, Mitral Valve Prolapse (MVP), Neurologic Disorder, Osteoarthritis (OA), Pneumonia, Skin Disorder, Sleep Apnea/CPAP/BIPAP, Vascular Disorder Additional Past Medical History / Comment(s): right breast cancer (mastectomy november 2021).,. Multiple Sclerosis. ,PAD hx chronic wounds left foot/lower leg now healed., states feet are red & purple in color, edema both feet., peripheral neuropathy., CVA x2 Jul/Aug 2021 gait unsteady-uses w/c., generalized weakness., hx anemia with iron infusions., hx hospitalization for collapsed lung and respiratory failure with intubation., states lump on her vocal cord.,. oxygen at 2.5-4 L prn, sleep apnea (no machine) History of Any Multi-Drug Resistant Organisms: None Reported Past Surgical History: Appendectomy, Breast Surgery, Coronary Bypass/CABG, Heart Catheterization With Stent, Orthopedic Surgery, Tonsillectomy Additional Past Surgical History / Comment(s): 08/17/21 surgery at [place] for mass upper back., 11/2020 CABG 4 vessel, PCI/stents in , bilateral iliac arthrectomy/stents ., left foot wound debridements, bronchoscopy/lavage, bilateral breast biopsies, D&C, lumpectomy right breast 08/2021. Right mastectomy (11/26/21) Past Anesthesia/Blood Transfusion Reactions: No Reported Reaction, Motion Sickness Additional Past Anesthesia/Blood Transfusion Reaction / Comment(s): No hx blood transfusion. Date of Last Stent Placement:: 2008 Additional Psychological History / Comment(s): Pt's due to Covid beginning of July 2021. Additional Past Alcohol Use History / Comment(s): started smoking 1960 (up to 3 ppd), quit may 2020 and restarted (07/28-1 ppd). - Past Family History Father Family Medical History: No Reported History Additional Family Medical History / Comment(s): alcoholism, deseased. Mother Family Medical History: Cancer Additional Family Medical History / Comment(s): Breast and brain cancer. General Exam Limitations: altered mental status (ANOx2), physical limitation General appearance: alert, in no apparent distress Head exam: Present: atraumatic, normocephalic, normal inspection Eye exam: Present: normal appearance, PERRL Pupils: Present: normal accommodation ENT exam: Present: normal exam, normal oropharynx, mucous membranes moist Neck exam: Present: normal inspection, full ROM Respiratory exam: Present: normal lung sounds bilaterally Cardiovascular Exam: Present: regular rate, normal rhythm GI/Abdominal exam: Present: soft, normal bowel sounds Extremities exam: Present: full ROM, pedal edema Back exam: Present: normal inspection, full ROM Neurological exam: Present: alert, altered, CN II-XII intact Psychiatric exam: Present: normal affect, normal mood Skin exam: Present: warm, dry, other (Chronic venous stasis ulcer noted to the right lower extremity without any erythema or induration noted) Course Vital Signs 10/27/22 21:16 Temperature 98 F Pulse Rate 120 H Respiratory 16 Rate Blood Pressure 186/101 O2 Sat by Pulse 99 Oximetry EKG Findings - EKG Comments: EKG Findings:: An EKG was obtained and was interpreted by myself showing a rate of 80, NV interval 152, QRS duration of 86 and QTC of 392. This EKG showed a normal sinus rhythm with no ST segment elevation or depression noted. Medical Decision Making - Medical Decision Making Was pt. sent in by a medical professional or institution (, PA, SENIOR HUMAN RESOURCES REPRESENTATIVE, urgent care, hospital, or [place] health care facility...) When possible be specific @ -No Did you speak to anyone other than the patient for history (EMS, parent, family, police, friend...)? What history was obtained from this source @ -No Did you review nursing and triage notes (agree or disagree)? Why? @ -I reviewed and agree with nursing and triage notes Were old charts reviewed (outside hosp., previous admission, EMS record, old EKG, old radiological studies, urgent care reports/EKG's, [place] health care facility records)? Report findings @ -No old charts were reviewed Differential Diagnosis (chest pain, altered mental status, abdominal pain women, abdominal pain men, vaginal bleeding, weakness, fever, dyspnea, syncope, headache, dizziness, GI bleed, back pain, seizure, CVA, palpatations, mental health)? @ -not applicable EKG interpreted by me (3pts min.). @ -As above X-rays interpreted by me (1pt min.). @ -Chest x-ray was obtained and was interpreted by myself showing no acute process. There was COPD changes. CT interpreted by me (1pt min.). @ -CT brain was obtained and was interpreted by myself showing no acute intracranial process. There was a remote injury of the right temporal and parietal lobes. CT abdomen and pelvis with contrast was obtained and was interpreted by myself showing liver size stable and within normal limits. There is evidence of long-standing chronic medical renal disease. There was moderate diffuse subcutaneous edema consistent with fluid overload. There was no other new acute findings noted. U/S interpreted by me (1pt. min.). @ -None done What testing was considered but not performed or refused? (CT, X-rays, U/S, labs)? Why? @ -Ultrasound was considered at this time however the patient will be admitted and a computed tomography scan was obtained therefore ultrasound and GI consultation will be performed later on admission What meds were considered but not given or refused? Why? @ -None Did you discuss the management of the patient with other professionals (professionals i.e. , PA, SENIOR HUMAN RESOURCES REPRESENTATIVE, lab, RT, psych nurse, social insurance analyst, nocturnist physician, teacher, safety officer, pillowcase folder)? Give summary @ -Yes, admitting physician Was smoking cessation discussed for >3mins.? @ -Yes Was critical care preformed (if so, how long)? @ -No Were there social determinants of health that impacted care today? How? (Homelessness, low income, unemployed, alcoholism, drug addiction, transportat ion, low edu. Level, literacy, decrease access to med. care, assisted, rehab)? @ -No Was there de-escalation of care discussed even if they declined (Discuss DNR or withdrawal of care, Hospice)? DNR status @ -No What co-morbidities impacted this encounter? (DM, HTN, Smoking, COPD, CAD, Cancer, CVA, ARF, Chemo, Hep., AIDS, mental health diagnosis, sleep apnea, morbid obesity)? @ -Hypertension, COPD, CHF, peripheral vascular disease Was patient admitted / discharged? Hospital course, mention meds given and route, prescriptions, significant lab abnormalities, going to OR and other perti nent info. @ -The patient was seen and evaluated emergency department. Physical exam, the patient was resting in bed comfortably. The patient was lethargic however was able to awake and answer questions appropriately however was altered. Workup was obtained that showed significant findings consistent with a MARY, CHF exas and acute hepatitis. Computed tomography scan was obtained and did not show any biliary pathology however an ultrasound will likely need to be done later on this admission along with a GI consultation. The patient was also given 40 mg of Lasix IV as the patient did also have a CHF exacerbation. Due to the findings on exam and the setting of acute hepatitis and CHF exacerbation with altered mental status and lethargy, the patient will be admitted for further workup and evaluation. The patient was agreeable to this and all of her questions were answered. The patient was admitted in stable condition. Undiagnosed new problem with uncertain prognosis? @ -No Drug Therapy requiring intensive monitoring for toxicity (Heparin, Nitro, Insulin, Cardizem)? @ -No Were any procedures done? @ -No Diagnosis/symptom? @ -Acute hepatitis Acute, or Chronic, or Acute on Chronic? @ -Acute Uncomplicated (without systemic symptoms) or Complicated (systemic symptoms)? @ -Complicated Side effects of treatment? @ -No Exacerbation, Progression, or Severe Exacerbation? @ -No Poses a threat to life or bodily function? How? (Chest pain, [place], [place], pneumonia, PE, COPD, DKA, ARF, appy, cholecystitis, CVA, Diverticulitis, Homicidal, Suicidal, threat to staff... and all critical care pts) @ -Yes, worsening hepatitis can cause permanent damage Diagnosis/symptom? @ -MARY Acute, or Chronic, or Acute on Chronic? @ -Acute Uncomplicated (without systemic symptoms) or Complicated (systemic symptoms)? @ -Complicated Side effects of treatment? @ -none Exacerbation, Progression, or Severe Exacerbation] @ -no Poses a threat to life or bodily function? @ -Yes, worsening HPI can lead to permanent damage and possible . Diagnosis/symptom? @ -CHF exacerbation Acute, or Chronic, or Acute on Chronic? @ -Acute Uncomplicated (without systemic symptoms) or Complicated (systemic symptoms)? @ -Complicated Side effects of treatment? @ -none Exacerbation, Progression, or Severe Exacerbation] @ -Severe exacerbation Poses a threat to life or bodily function? @ -Yes, worsening exacerbation can be to continue to shortness of breath and fluid overload causing permanent damage and possible . - Lab Data Result diagrams: 10/27/22 23:17 10/27/22 23:17 Lab Results 10/27/22 10/27/22 10/27/22 Range/Units 23:17 23:17 23:17 WBC 15.2 H (3.8-10.6) k/uL RBC 4.31 (3.80-5.40) m/uL Hgb 14.0 (11.4-16.0) gm/dL Hct 43.6 (34.0-46.0) % MCV 101.3 H (80.0-100.0) fL MCH 32.5 (25.0-35.0) pg MCHC 32.1 (31.0-37.0) g/dL RDW 16.3 H (11.5-15.5) % Plt Count 157 (150-450) k/uL MPV 9.7 Neutrophils % 86 % Lymphocytes % 8 % Monocytes % 4 % Eosinophils % 0 % Basophils % 0 % Neutrophils # 13.1 H (1.3-7.7) k/uL Lymphocytes # 1.2 (1.0-4.8) k/uL Monocytes # 0.6 (0-1.0) k/uL Eosinophils # 0.1 (0-0.7) k/uL Basophils # 0.0 (0-0.2) k/uL Hypochromasia Moderate Poikilocytosis Slight Anisocytosis Slight Macrocytosis Slight PT 21.8 H (9.0-12.0) sec INR 2.2 H (<1.2) APTT 27.2 (22.0-30.0) sec Sodium 140 (137-145) mmol/L Potassium 4.6 (3.5-5.1) mmol/L Chloride 104 (98-107) mmol/L Carbon Dioxide 24 (22-30) mmol/L Anion Gap 12 mmol/L BUN 51 H (7-17) mg/dL Creatinine 1.52 H (0.52-1.04) mg/dL Est GFR (CKD-EPI)AfAm 38 (>60 ml/min/1.73 sqM) Est GFR (CKD-EPI)NonAf 33 (>60 ml/min/1.73 sqM) Glucose 94 (74-99) mg/dL Calcium 8.6 (8.4-10.2) mg/dL Magnesium 2.1 (1.6-2.3) mg/dL Total Bilirubin 2.5 H (0.2-1.3) mg/dL AST 2937 H (14-36) U/L ALT 2113 H (4-34) U/L Alkaline Phosphatase 181 H (38-126) U/L Ammonia (<30) umol/L Troponin I (0.000-0.034) ng/mL NT-Pro-B Natriuret Pep pg/mL Total Protein 6.9 (6.3-8.2) g/dL Albumin 3.9 (3.5-5.0) g/dL Lipase 110 (23-300) U/L Urine Color Urine Appearance (Clear) Urine pH (5.0-8.0) Ur Specific [place] (1.001-1.035) Urine Protein (Negative) Urine Glucose (UA) (Negative) Urine Ketones (Negative) Urine Blood (Negative) Urine Nitrite (Negative) Urine Bilirubin (Negative) Urine Urobilinogen (<2.0) mg/dL Ur Leukocyte Esterase (Negative) Urine RBC (0-5) /hpf Urine WBC (0-5) /hpf Ur Squamous Epith Cells (0-4) /hpf Amorphous Sediment (None) /hpf Hyaline Casts (0-2) /lpf Influenza Type A (PCR) (Not Detectd) Influenza Type B (PCR) (Not Detectd) RSV (PCR) (Not Detectd) SARS-CoV-2 (PCR) (Not Detectd) 10/27/22 10/27/22 10/28/22 Range/Units 23:17 23:17 02:11 WBC (3.8-10.6) k/uL RBC (3.80-5.40) m/uL Hgb (11.4-16.0) gm/dL Hct (34.0-46.0) % MCV (80.0-100.0) fL MCH (25.0-35.0) pg MCHC (31.0-37.0) g/dL RDW (11.5-15.5) % Plt Count (150-450) k/uL MPV Neutrophils % % Lymphocytes % % Monocytes % % Eosinophils % % Basophils % % Neutrophils # (1.3-7.7) k/uL Lymphocytes # (1.0-4.8) k/uL Monocytes # (0-1.0) k/uL Eosinophils # (0-0.7) k/uL Basophils # (0-0.2) k/uL Hypochromasia Poikilocytosis Anisocytosis Macrocytosis PT (9.0-12.0) sec INR (<1.2) APTT (22.0-30.0) sec Sodium (137-145) mmol/L Potassium (3.5-5.1) mmol/L Chloride (98-107) mmol/L Carbon Dioxide (22-30) mmol/L Anion Gap mmol/L BUN (7-17) mg/dL Creatinine (0.52-1.04) mg/dL Est GFR (CKD-EPI)AfAm (>60 ml/min/1.73 sqM) Est GFR (CKD-EPI)NonAf (>60 ml/min/1.73 sqM) Glucose (74-99) mg/dL Calcium (8.4-10.2) mg/dL Magnesium (1.6-2.3) mg/dL Total Bilirubin (0.2-1.3) mg/dL AST (14-36) U/L ALT (4-34) U/L Alkaline Phosphatase (38-126) U/L Ammonia (<30) umol/L Troponin I 0.244 H* (0.000-0.034) ng/mL NT-Pro-B Natriuret Pep 32553 pg/mL Total Protein (6.3-8.2) g/dL Albumin (3.5-5.0) g/dL Lipase (23-300) U/L Urine Color Urine Appearance (Clear) Urine pH (5.0-8.0) Ur Specific [place] (1.001-1.035) Urine Protein (Negative) Urine Glucose (UA) (Negative) Urine Ketones (Negative) Urine Blood (Negative) Urine Nitrite (Negative) Urine Bilirubin (Negative) Urine Urobilinogen (<2.0) mg/dL Ur Leukocyte Esterase (Negative) Urine RBC (0-5) /hpf Urine WBC (0-5) /hpf Ur Squamous Epith Cells (0-4) /hpf Amorphous Sediment (None) /hpf Hyaline Casts (0-2) /lpf Influenza Type A (PCR) Not Detected (Not Detectd) Influenza Type B (PCR) Not Detected (Not Detectd) RSV (PCR) Not Detected (Not Detectd) SARS-CoV-2 (PCR) Not Detected (Not Detectd) 10/28/22 10/28/22 Range/Units 02:48 02:58 WBC (3.8-10.6) k/uL RBC (3.80-5.40) m/uL Hgb (11.4-16.0) gm/dL Hct (34.0-46.0) % MCV (80.0-100.0) fL MCH (25.0-35.0) pg MCHC (31.0-37.0) g/dL RDW (11.5-15.5) % Plt Count (150-450) k/uL MPV Neutrophils % % Lymphocytes % % Monocytes % % Eosinophils % % Basophils % % Neutrophils # (1.3-7.7) k/uL Lymphocytes # (1.0-4.8) k/uL Monocytes # (0-1.0) k/uL Eosinophils # (0-0.7) k/uL Basophils # (0-0.2) k/uL Hypochromasia Poikilocytosis Anisocytosis Macrocytosis PT (9.0-12.0) sec INR (<1.2) APTT (22.0-30.0) sec Sodium (137-145) mmol/L Potassium (3.5-5.1) mmol/L Chloride (98-107) mmol/L Carbon Dioxide (22-30) mmol/L Anion Gap mmol/L BUN (7-17) mg/dL Creatinine (0.52-1.04) mg/dL Est GFR (CKD-EPI)AfAm (>60 ml/min/1.73 sqM) Est GFR (CKD-EPI)NonAf (>60 ml/min/1.73 sqM) Glucose (74-99) mg/dL Calcium (8.4-10.2) mg/dL Magnesium (1.6-2.3) mg/dL Total Bilirubin (0.2-1.3) mg/dL AST (14-36) U/L ALT (4-34) U/L Alkaline Phosphatase (38-126) U/L Ammonia <9 (<30) umol/L Troponin I (0.000-0.034) ng/mL NT-Pro-B Natriuret Pep pg/mL Total Protein (6.3-8.2) g/dL Albumin (3.5-5.0) g/dL Lipase (23-300) U/L Urine Color Yellow Urine Appearance Cloudy H (Clear) Urine pH 5.5 (5.0-8.0) Ur Specific [place] 1.017 (1.001-1.035) Urine Protein 1+ H (Negative) Urine Glucose (UA) Negative (Negative) Urine Ketones Trace H (Negative) Urine Blood Moderate H (Negative) Urine Nitrite Negative (Negative) Urine Bilirubin Negative (Negative) Urine Urobilinogen 2.0 (<2.0) mg/dL Ur Leukocyte Esterase Negative (Negative) Urine RBC <1 (0-5) /hpf Urine WBC 1 (0-5) /hpf Ur Squamous Epith Cells <1 (0-4) /hpf Amorphous Sediment Rare H (None) /hpf Hyaline Casts 1 (0-2) /lpf Influenza Type A (PCR) (Not Detectd) Influenza Type B (PCR) (Not Detectd) RSV (PCR) (Not Detectd) SARS-CoV-2 (PCR) (Not Detectd) Disposition Clinical Impression: CHF exacerbation, MARY (acute kidney injury), Acute hepatitis Disposition: ADMITTED IP TO THIS HOSP Condition: Stable Is patient prescribed a controlled substance at d/c from ED?: No Referrals: Sydnie Reynolds MD [Primary Care Provider] - 1-2 days Time of Disposition: 05:00 Decision to Admit Reason: Admit from EC Decision Date: 10/28/22 Decision Time: 05:00
--- NOTE | 2022-10-27 23:15 | XR ---
EXAMINATION TYPE: XR chest 2V DATE OF EXAM: 10/27/2022 10:25 PM COMPARISON: Chest radiographs from 08/06/2022 TECHNIQUE: XR chest 2V Frontal and lateral views of the chest. CLINICAL INDICATION:Female, 77 years old with history of CP; FINDINGS: Lungs/Pleura: There is flattening of the diaphragm with increased lucency of the lungs. No evidence o f pneumothorax, pleural effusion or focal consolidation. Pulmonary vascularity: Unremarkable. Heart/mediastinum: Cardiomediastinal silhouette is enlarged and stable. Left atrial appendage occlusi on device is present. Musculoskeletal: No acute osseous pathology. Midline sternotomy wires are noted. IMPRESSION: 1. No acute cardiopulmonary disease process. 2. COPD changes.
--- NOTE | 2022-10-27 23:25 | CT ---
EXAMINATION TYPE: CT brain wo con CT DLP: 1189.4 mGycm, Automated exposure control for dose reduction was used. DATE OF EXAM: 10/27/2022 10:59 PM COMPARISON: 01/07/2022 CLINICAL INDICATION:Female, 77 years old with history of AMS, h/o maxillary ca, AMS TECHNIQUE: Brain: Axial CT images of the brain were obtained with coronal and sagittal reformats created and rev iewed. Contrast used: None. Oral contrast used: None. FINDINGS: Brain: Extra-axial spaces: No abnormal extra-axial fluid collections. Ventricular system: Within normal limits Cerebral parenchyma: Remote right temporal parietal region injury. No acute intraparenchymal hemorrha ge or mass effect. The tang-white junction is well differentiated. Cerebellum: Unremarkable. Mass effect: No evidence of midline shift. Intracranial vasculature: Atherosclerotic calcifications of the intracranial vessels. Soft tissues: Normal. Calvarium/osseous structures: No depressed skull fracture. Paranasal sinuses and mastoid air cells: Mild scattered paranasal sinus disease. Visualized orbits: Orbital contents are intact. IMPRESSION: 1. No acute intracranial process. 2. Remote injury of the right temporal/parietal lobes.
[2022-10-27 23:34] LABS: Anisocytosis Slight; Basophils % (A) 0 %; Eosinophils # (A) 0.1 k/uL (0-0.7); Eosinophils % (A) 0 %; HCT 43.6 % (34.0-46.0); Hypochromasia Moderate; Lymphocytes # (A) 1.2 k/uL (1.0-4.8); Lymphocytes % (A) 8 %; MCH 32.5 pg (25.0-35.0); MCHC 32.1 g/dL (31.0-37.0); MCV 101.3 fL (80.0-100.0); Macrocytosis Slight; Mean Platelet Volume 9.7; Monocytes # (A) 0.6 k/uL (0-1.0); Monocytes % (A) 4 %; Neutrophils # (A) 13.1 k/uL (1.3-7.7); Neutrophils % (A) 86 %; Platelet Count 157 k/uL (150-450); Poikilocytosis Slight; RBC 4.31 m/uL (3.80-5.40); RDW 16.3 % (11.5-15.5); WBC 15.2 k/uL (3.8-10.6)
[2022-10-27 23:46] LABS: Albumin 3.9 g/dL (3.5-5.0); Calcium 8.6 mg/dL (8.4-10.2); Magnesium 2.1 mg/dL (1.6-2.3); Potassium 4.6 mmol/L (3.5-5.1); Total Bilirubin 2.5 mg/dL (0.2-1.3); Total Protein 6.9 g/dL (6.3-8.2)
[2022-10-27 23:50] LABS: INR 2.2 (<1.2)
[2022-10-27 23:51] LABS: Partial Thromboplastin Time 27.2 sec (22.0-30.0); Prothrombin Time 21.8 sec (9.0-12.0)
[2022-10-28 03:51] LABS: Amorphous Sediment,Urine Rare /hpf; Appearance,Urine Cloudy (Clear); Bilirubin,Urine Negative (Negative); Blood,Urine Moderate (Negative); Color,Urine Yellow; Glucose,Urine (UA) Negative (Negative); Hyaline Casts,Urine 1 /lpf (0-2); Ketones,Urine Trace (Negative); Leukocyte Esterase,Urine Negative (Negative); Nitrite,Urine Negative (Negative); PH, Urine 5.5 (5.0-8.0); Protein,Urine 1+ (Negative); RBC,Urine <1 /hpf (0-5); Specific Gravity,Urine 1.017 (1.001-1.035); Squamous Epithelial Cell,Urine <1 /hpf (0-4); WBC,Urine 1 /hpf (0-5)
--- NOTE | 2022-10-28 05:41 | CT ---
EXAMINATION TYPE: CT abdomen pelvis w con DATE OF EXAM: 10/28/2022 HISTORY: Acute hepatitis. Acute onset pain. CT DLP: 242.1mGycm Automated Exposure Control for Dose Reduction was Utilized. CONTRAST: CT scan of the abdomen and pelvis is performed without oral and with IV Contrast, patient injected wi th 100 mL of Isovue 300. COMPARISON: CT June 25, 2022 FINDINGS: Suboptimal due to artifact from overlying upper extremities and overlying ECG leads. LUNG BASES: Posterior left basilar atelectasis and consolidation redemonstrated. Cardiomegaly partial ly imaged. LIVER/GB: Intraluminal gallstone redemonstrated.. PANCREAS: No significant abnormality is seen. SPLEEN: No significant abnormality is seen. ADRENALS: No significant abnormality is seen. KIDNEYS: Better visualized 2.8 cm simple thin-walled cyst in the right kidney image 19 series 301. BOWEL: Suboptimal evaluation without enteric contrast and patient having little intra-abdominal fat. No suspicious small and large bowel dilatation. Diverticula in the sigmoid colon are present. No defi nitive acute diverticulitis. UTERUS/ADNEXA: Uterus surgically absent or atrophic in appearance. LYMPH NODES: No greater than 1cm abdominal or pelvic lymph nodes are appreciated. OSSEOUS STRUCTURES: Underlying scoliosis is redemonstrated multilevel [id number] disc space n arrowing redemonstrated. OTHER: Moderate diffuse subcutaneous edema. Moderate to severe peripheral calcified plaque of the aor ta extends into branch vessels. No free air. IMPRESSION: Liver size is stable and within normal limits. Evidence of long-standing chronic medical renal disease. Moderate diffuse subcutaneous edema consistent with product of fluid overload state. N o bowel obstruction. Gallstone redemonstrated. No definitive new acute findings seen.
[2022-10-28] MEDS ORDERED: FUROSEMIDE 10 MG/ML 4 ML VIAL IV STA (05:56)
[2022-10-28] MEDS ORDERED: NALOXONE 0.4 MG/ML 1 ML VIAL IV PRN (06:57)
--- NOTE | 2022-10-28 08:50 | CONS ---
CONSULTATION CHIEF COMPLAINT: Fatigue, tiredness, not feeling well and excessive sleepiness. HISTORY OF PRESENT ILLNESS: Sharmila is a 77-year-old lady with history of coronary artery disease status post CABG, ischemic cardiomyopathy, history of left ventricular thrombus, peripheral arterial disease, hypertension, dyslipidemia, and more recent history of atrial fibrillation with rapid ventricular rate, presented to the hospital because she was not feeling well, sleeping excessively and seemed fatigued and tired and somewhat confused. Speaking to the nurse, she was apparently brought in by her grandson. At the time of my evaluation, she seems more alert, awake and is answering questions appropriately. She denies any chest pain or difficulty in breathing. There is no history of leg edema, PND or orthopnea. An EKG shows sinus rhythm with PACs. Her labs showed that the hemoglobin is normal at 14. INR is elevated at 2.2, potassium is 4.6, BUN is 51, creatinine is 1.5. AST and ALT are elevated at 2937 and 2113. Troponin is 0.2. BNP is 22,000. The chest x-ray did not reveal any evidence of pulmonary congestion. CT scan of the abdomen showed diffuse subcutaneous edema, peripheral arterial calcification. CT scan of the brain was negative. Blood pressure is elevated at 186/101. The patient's clinical presentation does not seem to be related to congestive heart failure, even though the BNP is elevated. She in fact is volume depleted with elevated BUN and creatinine. I do not see any evidence of myocardial ischemia. The troponin elevation is probably related to the renal failure. It is possible the patient has had episodes of hypotension causing acute liver injury, but her presentation is not consistent with acute liver injury related to heart failure. Her liver enzymes were normal in August and her creatinine was 0.6 and BUN was at 18. PAST MEDICAL HISTORY: Significant for CAD status post CABG, peripheral arterial disease, hypertension, dyslipidemia, atrial fibrillation, and evidence of cardiac thrombus. The patient had an echocardiogram last year that revealed an ejection fraction of 45%. ALLERGIES: As charted. FAMILY HISTORY: Negative for premature coronary artery disease. SOCIAL HISTORY: Significant for smoking. There is no history of EtOH abuse or drug abuse. REVIEW OF SYSTEMS: HEENT: Significant for confusion. CARDIAC: As described above. RESPIRATORY: As described above. GI: As described above. GENITOURINARY: Negative. ALLERGIES/IMMUNOLOGY: Negative. SKIN: Negative. MUSCULOSKELETAL: Significant for arthritis, fatigue, tiredness, weakness and inability to ambulate. The rest of the system review is not relevant. PHYSICAL EXAMINATION: VITAL SIGNS: Heart rate is 90 beats per minute. Blood pressure is 160/80, respiratory rate is 18. CHEST: Reveals diminished air entry at the bases. HEART: Reveals first and second heart sounds. An ejection systolic murmur in the aortic area. ABDOMEN: Soft. EXTREMITIES: Examination of the extremities reveals bilateral 1+ edema and distal pulses are diminished. LABORATORY DATA: Labs show that the BNP is elevated at 22,000. AST, ALT elevated. BUN is 51, creatinine is 1.5. INR is elevated at 2.2, hemoglobin is 14. White cell count is elevated at 15. ASSESSMENT: 1. Acute renal failure. 2. Acute liver injury. 3. Coronary artery disease, status post coronary artery bypass grafting. 4. Elevated troponin secondary to renal failure. BNP elevation of unclear clinical significance. The patient is currently not in overt heart failure. 5. Peripheral arterial disease. PLAN: I will continue with supportive care, optimal control of blood pressure. Resume the beta blockers. Hold the Eliquis for now until the coagulopathy and the liver injury improves. Gentle hydration to deal with the intravascular volume depletion. Obtain a 2D echo to assess her LV function. Obtain blood cultures given the elevated white cell count and the evidence of multiorgan failure and recurrent hospitalizations. MMODL / IJN: [id number] /
[2022-10-28] MEDS: traMADol 50 MG TAB PO PRN (09:32)
--- NOTE | 2022-10-28 10:38 | US ---
EXAMINATION TYPE: US gallbladder DATE OF EXAM: 10/28/2022 COMPARISON: CT 10/28/2022 CLINICAL HISTORY: acute hepatitis. TECHNIQUE: Multiple sonographic images of the right upper quadrant are obtained. FINDINGS: EXAM MEASUREMENTS: Liver Length: 13.3 cm Gallbladder Wall: 0.5 cm CBD: 0.4 cm Right Kidney: 10.3 x 4.5 x 5.2 cm ELECTRIC MULE OPERATOR NOTES: Pancreas: visualized portions wnl Liver: wnl Gallbladder: large stone with sludge, thickened wall. Evidence for sonographic Avendaño's sign: yes CBD: wnl Right Kidney: upper pole cyst measures 2.6 x 2.8 x 2.5 cm. IMPRESSION: 1. Cholelithiasis with gallbladder wall thickening correlate for cholecystitis.
[2022-10-28] MEDS ORDERED: NITROGLYCERIN SL TABS 0.4 MG TAB SUBLINGUAL PRN (12:02)
[2022-10-28] MEDS ORDERED: IPRATROPIUM 0.5 MG/2.5 ML NEBU INHALATION PRN ×2 (12:02→12:30)
[2022-10-28] MEDS ORDERED: ALBUTEROL NEBULIZED 2.5 MG/3 ML INHALATION PRN ×2 (12:02→12:30)
[2022-10-28] MEDS ORDERED: IPRATROPIUM-ALBUTEROL 3 ML NEB INHALATION PRN (12:12)
[2022-10-28] MEDS: HYDROmorphone 0.5 MG/0.5 ML SYRINGE IVP PRN (12:20)
[2022-10-28] MEDS: FUROSEMIDE 10 MG/ML 4 ML VIAL IV SCH ×2 (12:21→23:50)
--- NOTE | 2022-10-28 12:25 | P.HPIM ---
History of Present Illness 77-year-old pleasant female with a history of COPD continues to smoke. 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 Patient is also found a highly elevated AST and ALT AST being 2900 and ALP being 2100 and patient does have some edema of the abdominal wall chest x-ray did not show any significant abnormality but BNP is elevated to 22,000 and patient has history of heart failure with EF of around 45%. RVSP is not known. Patient is an creatinine is around 0.8 present creatinine is 1.5 to INR is 2.2 and patient is on eliquis. Does have history of atrial fibrillation. Presently no evidence of GI bleed at this time. Patient does have history of cerebrovascular disease follows up with gastro-surgery as an outpatient patient has significant cyanosis of bilateral lower extremity. Patient does have leukocytosis without any fever. Does have an ulcer in the right lower extremity below the midshin area. REVIEW OF SYSTEMS: CONSTITUTIONAL: As mentioned in HPI HEENT: No recent visual problems or hearing problems. Denied any sore throat. CARDIOVASCULAR: No chest pain, orthopnea, PND, no palpitations, no syncope. PULMONARY:no cough, no hemoptysis. GASTROINTESTINAL: No diarrhea, no nausea, no vomiting, no abdominal pain. NEUROLOGICAL: No headaches, no weakness, no numbness. HEMATOLOGICAL: Denies any bleeding or petechiae. GENITOURINARY: Denies any burning micturition, frequency, or urgency. MUSCULOSKELETAL/RHEUMATOLOGICAL: Denies any joint pain, swelling, or any muscle pain. ENDOCRINE: Denies any polyuria or polydipsia. The rest of the 14-point review of systems is negative. PHYSICAL EXAMINATION: GENERAL: The patient is alert and oriented x3, not in any acute distress. Well developed, well nourished. Thin built HEENT: Pupils are round and equally reacting to light. EOMI. No scleral icterus. No conjunctival pallor. Normocephalic, atraumatic. No pharyngeal erythema. No thyromegaly. CARDIOVASCULAR: S1 and S2 present. No murmurs, rubs, or gallops. PULMONARY: Chest is clear to auscultation, no wheezing or crackles. Expiratory wheezing ABDOMEN: Soft, nontender, nondistended, normoactive bowel sounds. No palpable organomegaly. MUSCULOSKELETAL: No joint swelling or deformity. EXTREMITIES: No clubbing, or pedal edema. NEUROLOGICAL: Gross neurological examination did not reveal any focal deficits. SKIN: Cyanosis of bilateral lower extremities extending up to the mid foot area and an Omni healing ulcer on the anterior aspect of the right midshin Assessment and plan Acute on chronic hypoxic and hypercapnic respiratory failure secondary to severe exacerbation, patient does have CHF as well patient does use 3 L of oxygen at home patient will be started on inhaled steroids and inhalational treatments. -Congestive heart failure chronic systolic dysfunction with acute exacerbation patient was started on 40 mg of IV Lasix twice a day -Transaminitis: Secondary to hepatic congestion patient was started on IV Lasix patient is definitely volume overloaded although chest x-ray did not show any pulmonary congestion. -Mild troponin elevation secondary to CHF -Acute renal failure prerenal azotemia secondary to congestive heart failure IV Lasix as mentioned above -Leukocytosis reactive in nature -Atrial fibrillation paroxysmal presently rate controlled patient correlation is being held because of elevated INR of 2.2 probably can be resumed tomorrow at a low dose considering renal dysfunction next and-COPD with acute exacerbation and he is to smoke smoking cessation counseling was provided -Hyperlipidemia -Hypertension -Cerebrovascular disease with the cyanosis of bilateral lower it's which is restless surgery was consulted -Coronary artery disease with stents in the past and CABG in the past DVT prophylaxis: Patient is anticoagulated because of coagulopathy and hepatic congestion Past Medical History Past Medical History: Atrial Fibrillation, Coronary Artery Disease (CAD), Cancer, Heart Failure, COPD, CVA/TIA, Hyperlipidemia, Hypertension, Mitral Valve Prolapse (MVP), Neurologic Disorder, Osteoarthritis (OA), Pneumonia, Skin Disorder, Sleep Apnea/CPAP/BIPAP, Vascular Disorder Additional Past Medical History / Comment(s): right breast cancer (mastectomy november 2021).,. Multiple Sclerosis. ,PAD hx chronic wounds left foot/lower leg now healed., states feet are red & purple in color, edema both feet., peripheral neuropathy., CVA x2 Jul/Aug 2021 gait unsteady-uses w/c., generalized weakness., hx anemia with iron infusions., hx hospitalization for collapsed lung and respiratory failure with intubation., states lump on her vocal cord.,. oxygen at 2.5-4 L prn, sleep apnea (no machine) History of Any Multi-Drug Resistant Organisms: None Reported Past Surgical History: Appendectomy, Breast Surgery, Coronary Bypass/CABG, Heart Catheterization With Stent, Orthopedic Surgery, Tonsillectomy Additional Past Surgical History / Comment(s): 08/17/21 surgery at [place] for mass upper back., 11/2020 CABG 4 vessel, PCI/stents in , bilateral iliac arthrectomy/stents ., left foot wound debridements, bronchoscopy/lavage, bilateral breast biopsies, D&C, lumpectomy right breast 08/2021. Right mastectomy (11/26/21) Past Anesthesia/Blood Transfusion Reactions: No Reported Reaction, Motion Sickness Additional Past Anesthesia/Blood Transfusion Reaction / Comment(s): No hx blood transfusion. Date of Last Stent Placement:: 2008 Additional Psychological History / Comment(s): Pt's due to Covid beginning of July 2021. Additional Past Alcohol Use History / Comment(s): started smoking 1960 (up to 3 ppd), quit may 2020 and restarted (07/28-1 ppd). - Past Family History Father Family Medical History: No Reported History Additional Family Medical History / Comment(s): alcoholism, deseased. Mother Family Medical History: Cancer Additional Family Medical History / Comment(s): Breast and brain cancer. Medications and Allergies Home Medications Medication Instructions Recorded Confirmed Type Atorvastatin [Lipitor] 80 mg PO HS 08/02/20 10/27/22 History Apixaban [Eliquis] 5 mg PO BID #0 08/22/21 10/27/22 Rx Fluticasone/Umeclidin/Vilanter 1 puff INHALATION RT-DAILY PRN 11/01/21 10/27/22 History [Trelegy Ellipta 100-62.5-25] Letrozole [Femara] 2.5 mg PO DAILY 01/04/22 10/27/22 History Nitroglycerin Sl Tabs [Nitrostat] 0.4 mg SUBLINGUAL Q5M PRN 04/16/22 10/27/22 History Metoprolol Tartrate [Lopressor] 75 mg PO BID 07/15/22 10/27/22 History Potassium Chloride ER [K-Dur 20] 20 meq PO DAILY #30 tab 07/17/22 10/27/22 Rx lisinopriL [Zestril] 10 mg PO DAILY 30 Days #60 tab 07/17/22 10/27/22 Rx Furosemide [Lasix] 40 mg PO BID@0900,1600 #60 tab 08/06/22 10/27/22 Rx ALPRAZolam [Xanax] 0.25 mg PO HS 09/16/22 10/27/22 History Acetaminophen Tab [Tylenol] 500 - 1,500 mg PO Q6H PRN 09/16/22 10/27/22 History Albuterol Sulfate [Ventolin HFA] 1 puff INHALATION RT-Q6H PRN 09/16/22 10/27/22 History Gabapentin [Neurontin] 300 mg PO HS 09/16/22 10/27/22 History Collagenase [Santyl Ointment] 1 applic TOPICAL DAILY 30 Days #1 09/23/22 10/27/22 Rx each Escitalopram [Lexapro] 20 mg PO DAILY 10/27/22 10/27/22 History traMADol HCL 50 mg PO HS PRN 10/27/22 10/27/22 History Allergies Allergy/AdvReac Type Severity Reaction Status Date / Time sumatriptan [From Imitrex] AdvReac Chest Pain Verified 10/27/22 22:04 Physical Exam Vitals: Vital Signs Temp Pulse Pulse Resp BP BP Pulse Ox 10/28/22 12:16 85 18 173/80 100 10/28/22 09:33 97.6 F 104 H 18 152/91 99 10/27/22 21:16 98 F 120 H 16 186/101 99 Intake and Output 10/27/22 10/28/22 10/28/22 22:59 06:59 14:59 Other: Weight 39.916 kg Results CBC & Chem 7: 10/27/22 23:17 10/27/22 23:17 Labs: Abnormal Lab Results - Last 24 Hours (Table) 10/27/22 10/27/22 10/27/22 Range/Units 23:17 23:17 23:17 WBC 15.2 H (3.8-10.6) k/uL MCV 101.3 H (80.0-100.0) fL RDW 16.3 H (11.5-15.5) % Neutrophils # 13.1 H (1.3-7.7) k/uL PT 21.8 H (9.0-12.0) sec INR 2.2 H (<1.2) BUN 51 H (7-17) mg/dL Creatinine 1.52 H (0.52-1.04) mg/dL Total Bilirubin 2.5 H (0.2-1.3) mg/dL AST 2937 H (14-36) U/L ALT 2113 H (4-34) U/L Alkaline Phosphatase 181 H (38-126) U/L Troponin I (0.000-0.034) ng/mL Urine Appearance (Clear) Urine Protein (Negative) Urine Ketones (Negative) Urine Blood (Negative) Amorphous Sediment (None) /hpf 10/27/22 10/28/22 Range/Units 23:17 02:58 WBC (3.8-10.6) k/uL MCV (80.0-100.0) fL RDW (11.5-15.5) % Neutrophils # (1.3-7.7) k/uL PT (9.0-12.0) sec INR (<1.2) BUN (7-17) mg/dL Creatinine (0.52-1.04) mg/dL Total Bilirubin (0.2-1.3) mg/dL AST (14-36) U/L ALT (4-34) U/L Alkaline Phosphatase (38-126) U/L Troponin I 0.244 H* (0.000-0.034) ng/mL Urine Appearance Cloudy H (Clear) Urine Protein 1+ H (Negative) Urine Ketones Trace H (Negative) Urine Blood Moderate H (Negative) Amorphous Sediment Rare H (None) /hpf
[2022-10-28] MEDS ORDERED: METOPROLOL TARTRATE 25 MG TAB PO STA (13:25)
--- NOTE | 2022-10-28 13:44 | P.CONS ---
History of Present Illness - Reason for Consult Consult date: 10/28/22 Acute hepatitis Requesting physician: Armen Palafox - Chief Complaint Weakness - History of Present Illness Pleasant 77-year-old male who presented to the emergency department with complaints of weakness. Patient states that she has been having increased weakness, fatigue, decreased appetite and nausea over the last 5 days. She denies any fevers or chills. Denies any chest pain, has some chronic shortness of breath, no abdominal pain no vomiting. past medical history includes peripheral arterial disease, atrial fibrillation, coronary artery disease, heart failure, COPD, TIA, hyperlipidemia, hypertension, right breast cancer, nicotine dependence, and chronic left lower extremity wounds. The patient was noted to have elevated LFTs on admission. She also had elevated troponin as well as being hypertensive. Apparently patient may have been sleeping in her wheelchair at the table for 12 hours. She lives with 2 grandsons and a great- granddaughter. She had a CT of the abdomen and pelvis which reported liver size is stable within normal limits. Evidence of long-standing chronic medical renal disease. Moderate diffuse subcutaneous edema consistent with product of fluid overload state, no bowel obstruction. Gallstones are demonstrated. No definitive new acute findings seen. Patient denies any history of liver disease, no prior history of alcohol abuse. States that she has been on antibiotics, although she cannot recall which ones for chronic wounds to her left foot. Looking back at her last discharge summary on 09/17/2022 patient was discharged home on Augmentin for 10 days however patient completed that. Admitting labs WBC 15.2 hemoglobin 14 hematocrit 43 platelet count 157,000 INR 2.2 sodium 140 potassium 4.6 BUN 51 creatinine 1.5 total bilirubin 2.5 AST 2937 ALT 2113 alkaline phosphatase 181 ammonia less than 9 troponin 0.244 lipase 110 Review of Systems REVIEW OF SYSTEMS: CARDIOPULMONARY: No chest pain or shortness of breath. Gastrointestinal: No abdominal pain. Patient has had some nausea and decreased appetite but no vomiting for last 5 days duration.No hematemesis, coffee-ground emesis. No rectal bleeding, or melena. GENITOURINARY: No dysuria or hematuria. MUSCULOSKELETAL: Reports normal range of motion. Joint pain. Neuropathy. SKIN: No rashes. No jaundice. Bilateral feet with discoloration from peripheral vascular disease, left lower extremity with chronic wounds. ENDOCRINE: No chills, fevers. No excessive weight gain or loss. No polydipsia or polyuria. PSYCHIATRIC: Unremarkable. NEUROLOGY: No change in mental status. Denies dizziness, headache. ENT: Vision unremarkable. CONSTITUTIONAL: No recent weight loss. No fever, chills, night sweats. Increased weakness and fatigue. Past Medical History Past Medical History: Atrial Fibrillation, Coronary Artery Disease (CAD), Cancer, Heart Failure, COPD, CVA/TIA, Hyperlipidemia, Hypertension, Mitral Valve Prolapse (MVP), Neurologic Disorder, Osteoarthritis (OA), Pneumonia, Skin Di sorder, Sleep Apnea/CPAP/BIPAP, Vascular Disorder Additional Past Medical History / Comment(s): right breast cancer (mastectomy november 2021).,. Multiple Sclerosis. ,PAD hx chronic wounds left foot/lower leg now healed., states feet are red & purple in color, edema both feet., peripheral neuropathy., CVA x2 Jul/Aug 2021 gait unsteady-uses w/c., generalized weakness., hx anemia with iron infusions., hx hospitalization for collapsed lung and respiratory failure with intubation., states lump on her vocal cord.,. oxygen at 2.5-4 L prn, sleep apnea (no machine) History of Any Multi-Drug Resistant Organisms: None Reported Past Surgical History: Appendectomy, Breast Surgery, Coronary Bypass/CABG, Heart Catheterization With Stent, Orthopedic Surgery, Tonsillectomy Additional Past Surgical History / Comment(s): 08/17/21 surgery at [place] for mass upper back., 11/2020 CABG 4 vessel, PCI/stents in , bilateral iliac arthrectomy/stents ., left foot wound debridements, bronchoscopy/lavage, bilateral breast biopsies, D&C, lumpectomy right breast 08/2021. Right mastectomy (11/26/21) Past Anesthesia/Blood Transfusion Reactions: No Reported Reaction, Motion Sickness Additional Past Anesthesia/Blood Transfusion Reaction / Comm: No hx blood t ransfusion. Date of Last Stent Placement:: 2008 Additional Psychological History / Comment(s): Pt's due to Covid beginning of July 2021. Additional Past Alcohol Use History / Comment(s): started smoking 1960 (up to 3 ppd), quit may 2020 and restarted (12-1 ppd). - Past Family History Father Family Medical History: No Reported History Additional Family Medical History / Comment(s): alcoholism, deseased. Mother Family Medical History: Cancer Additional Family Medical History / Comment(s): Breast and brain cancer. Medications and Allergies Home Medications Medication Instructions Recorded Confirmed Type Atorvastatin [Lipitor] 80 mg PO HS 08/02/20 10/27/22 History Apixaban [Eliquis] 5 mg PO BID #0 08/22/21 10/27/22 Rx Fluticasone/Umeclidin/Vilanter 1 puff INHALATION RT-DAILY PRN 11/01/21 10/27/22 History [Trelegy Ellipta 100-62.5-25] Letrozole [Femara] 2.5 mg PO DAILY 01/04/22 10/27/22 History Nitroglycerin Sl Tabs [Nitrostat] 0.4 mg SUBLINGUAL Q5M PRN 04/16/22 10/27/22 History Metoprolol Tartrate [Lopressor] 75 mg PO BID 07/15/22 10/27/22 History Potassium Chloride ER [K-Dur 20] 20 meq PO DAILY #30 tab 07/17/22 10/27/22 Rx lisinopriL [Zestril] 10 mg PO DAILY 30 Days #60 tab 07/17/22 10/27/22 Rx Furosemide [Lasix] 40 mg PO BID@0900,1600 #60 tab 08/06/22 10/27/22 Rx ALPRAZolam [Xanax] 0.25 mg PO HS 09/16/22 10/27/22 History Acetaminophen Tab [Tylenol] 500 - 1,500 mg PO Q6H PRN 09/16/22 10/27/22 History Albuterol Sulfate [Ventolin HFA] 1 puff INHALATION RT-Q6H PRN 09/16/22 10/27/22 History Gabapentin [Neurontin] 300 mg PO HS 09/16/22 10/27/22 History Collagenase [Santyl Ointment] 1 applic TOPICAL DAILY 30 Days #1 09/23/22 10/27/22 Rx each Escitalopram [Lexapro] 20 mg PO DAILY 10/27/22 10/27/22 History traMADol HCL 50 mg PO HS PRN 10/27/22 10/27/22 History Allergies Allergy/AdvReac Type Severity Reaction Status Date / Time sumatriptan [From Imitrex] AdvReac Chest Pain Verified 10/27/22 22:04 Physical Exam Vitals: Vital Signs Temp Pulse Resp BP Pulse Ox 10/28/22 09:33 97.6 F 104 H 18 152/91 99 10/27/22 21:16 98 F 120 H 16 186/101 99 Intake and Output 10/27/22 10/28/22 10/28/22 22:59 06:59 14:59 Other: Weight 39.916 kg General appearance: The patient is alert, oriented, appears in no acute dist ress. HET: Head is normocephalic and atraumatic. Conjunctiva pink. Sclera anicteric. Neck: Supple without lymphadenopathy. Trachea midline. Heart: S1 S2. Regular rate and rhythm. Lungs: Clear to auscultation. Abdomen: Soft, nontender, nondistended with bowel sounds. No guarding or rigidity. Skin: No rashes. No jaundice. Extremities: Bilateral lower extremity with edema. Bilateral feet and toe discoloration, dusky purple. Left lower extremity with dressing in place. Neurological: No focal deficits. Alert and oriented x3. Results CBC & Chem 7: 10/28/22 13:35 10/28/22 17:16 Labs: Abnormal Lab Results - Last 24 Hours (Table) 10/27/22 10/27/22 10/27/22 Range/Units 23:17 23:17 23:17 WBC 15.2 H (3.8-10.6) k/uL MCV 101.3 H (80.0-100.0) fL RDW 16.3 H (11.5-15.5) % Neutrophils # 13.1 H (1.3-7.7) k/uL PT 21.8 H (9.0-12.0) sec INR 2.2 H (<1.2) BUN 51 H (7-17) mg/dL Creatinine 1.52 H (0.52-1.04) mg/dL Total Bilirubin 2.5 H (0.2-1.3) mg/dL AST 2937 H (14-36) U/L ALT 2113 H (4-34) U/L Alkaline Phosphatase 181 H (38-126) U/L Troponin I (0.000-0.034) ng/mL Urine Appearance (Clear) Urine Protein (Negative) Urine Ketones (Negative) Urine Blood (Negative) Amorphous Sediment (None) /hpf 10/27/22 10/28/22 Range/Units 23:17 02:58 WBC (3.8-10.6) k/uL MCV (80.0-100.0) fL RDW (11.5-15.5) % Neutrophils # (1.3-7.7) k/uL PT (9.0-12.0) sec INR (<1.2) BUN (7-17) mg/dL Creatinine (0.52-1.04) mg/dL Total Bilirubin (0.2-1.3) mg/dL AST (14-36) U/L ALT (4-34) U/L Alkaline Phosphatase (38-126) U/L Troponin I 0.244 H* (0.000-0.034) ng/mL Urine Appearance Cloudy H (Clear) Urine Protein 1+ H (Negative) Urine Ketones Trace H (Negative) Urine Blood Moderate H (Negative) Amorphous Sediment Rare H (None) /hpf Assessment and Plan (1) Acute hepatitis Narrative/Plan: 77-year-old female presented to emergency department with complaints of generalized weakness and increased fatigue. Patient has multiple comorbidities including coronary artery disease atrial fibrillation, congestive heart failure, peripheral arterial disease currently on Eliquis. Patient's initial labs showed elevated troponin, acute kidney injury with significantly elevated LFTs. No underlying history of liver disease, no previous history of alcohol abuse. Was recently on Augmentin at the end of August part of September. Patient was hype rtensive on admission, tachycardic, afebrile. Unclear etiology of elevated LFTs, likely looking at possible ischemic hepatitis versus medication induced hepatitis. We will order acute hepatitis panel, gallbladder ultrasound, and acetaminophen level. Current Visit: Yes Status: Acute Code(s): B17.9 - ACUTE VIRAL HEPATITIS, UNSPECIFIED SNOMED Code(s): 01417650 (2) MARY (acute kidney injury) Current Visit: Yes Status: Acute Code(s): N17.9 - ACUTE KIDNEY FAILURE, UNSPECIFIED SNOMED Code(s): 37619318 (3) Atrial fibrillation Current Visit: Yes Status: Acute Code(s): I48.91 - UNSPECIFIED ATRIAL FIBRILLATION SNOMED Code(s): 37792337 (4) Elevated troponin Current Visit: No Status: Acute Code(s): R77.8 - OTHER SPECIFIED ABNORMALITIES OF PLASMA PROTEINS SNOMED Code(s): 465035411 (5) Weakness Current Visit: Yes Status: Acute Code(s): R53.1 - WEAKNESS SNOMED Code(s): 39751336 Plan: 1. Continue symptomatic care 2. Acetaminophen and creatinine kinase level ordered 3. Gallbladder ultrasound ordered 4. Acute hepatitis panel ordered 5. Avoid hepatotoxic medications 6. May have heart healthy diet 7. Repeat CBC, INR, CMP in the morning Thank you for this consultation, we will continue to follow. Dr. Rose Gutierrez I agree with the dictator's note, documented as a scribe by Esthela Agudelo.
[2022-10-28 13:59] LABS: HCT 41.1 % (34.0-46.0); HGB 12.8 gm/dL (11.4-16.0); Hypochromasia Moderate; MCHC 31.3 g/dL (31.0-37.0); MCV 102.4 fL (80.0-100.0); Macrocytosis Slight; Mean Platelet Volume 9.2; Platelet Count 128 k/uL (150-450); Poikilocytosis Slight; RBC 4.01 m/uL (3.80-5.40); RDW 15.9 % (11.5-15.5); WBC 16.1 k/uL (3.8-10.6)
[2022-10-28] MEDS: IPRATROPIUM 0.5 MG/2.5 ML NEBU INHALATION SCH ×4 (15:07→19:59)
[2022-10-28] MEDS: ALBUTEROL NEBULIZED 2.5 MG/3 ML INHALATION SCH ×2 (15:07→19:53)
[2022-10-28] MEDS: SYMBICORT 80-4.5 MCG INHALER INHALATION SCH (15:21)
[2022-10-28] MEDS ORDERED: DILTIAZEM DRIP BOLUS FROM BAG 1 MG SOLN IV ONE (15:51)
[2022-10-28] MEDS ORDERED: IPRATROPIUM-ALBUTEROL 3 ML NEB INHALATION SCH (16:00)
[2022-10-28] MEDS: DILTIAZEM 125 MG in SODIUM CHLORIDE 0.9% 100 ML IV SCH (16:17)
[2022-10-28 17:26] LABS: Hepatitis A Antibody IgM Nonreactive (Nonreactive); Hepatitis C IgG Antibody Nonreactive (Nonreactive)
[2022-10-28 17:27] LABS: Hepatitis B Core IgM Nonreactive (Nonreactive); Hepatitis B Surface Antigen Nonreactive (Nonreactive)
[2022-10-28 18:07] LABS: Acetaminophen <10.0 ug/mL; African American GFR (CKD) 46 (>60 ml/min/1.73 sqM); Albumin 3.4 g/dL (3.5-5.0); Alkaline Phosphatase 156 U/L (38-126); Anion Gap 11 mmol/L; Blood Urea Nitrogen 47 mg/dL (7-17); Calcium 8.5 mg/dL (8.4-10.2); Carbon Dioxide 26 mmol/L (22-30); Chloride 105 mmol/L (98-107); Glucose 90 mg/dL (74-99); Non-African American GFR(CKD) 40 (>60 ml/min/1.73 sqM); Potassium 4.1 mmol/L (3.5-5.1); Sodium 142 mmol/L (137-145); Total Bilirubin 2.8 mg/dL (0.2-1.3); Total Protein 6.2 g/dL (6.3-8.2)
[2022-10-28 18:25] LABS: ALT 1539 U/L (4-34); AST 1424 U/L (14-36)
[2022-10-28 18:28] LABS: Creatine Kinase 2824 U/L (30-135)
[2022-10-28] MEDS ORDERED: APIXABAN 2.5 MG TABLET PO SCH (21:00)
[2022-10-28] MEDS: GABAPENTIN 100 MG CAP PO SCH (23:51)
[2022-10-28] MEDS: METOPROLOL TARTRATE 25 MG TAB PO SCH (23:51)
[2022-10-29] MEDS: HYDROmorphone 0.5 MG/0.5 ML SYRINGE IVP PRN ×3 (03:37→23:34)
[2022-10-29] MEDS: DILTIAZEM 125 MG in SODIUM CHLORIDE 0.9% 100 ML IV SCH (05:46)
[2022-10-29] MEDS: SYMBICORT 80-4.5 MCG INHALER INHALATION SCH ×2 (08:05→21:54)
[2022-10-29] MEDS: IPRATROPIUM 0.5 MG/2.5 ML NEBU INHALATION SCH ×4 (08:05→21:54)
[2022-10-29] MEDS: ALBUTEROL NEBULIZED 2.5 MG/3 ML INHALATION SCH ×4 (08:05→21:53)
[2022-10-29] MEDS: METOPROLOL TARTRATE 25 MG TAB PO SCH (10:12)
[2022-10-29] MEDS: traMADol 50 MG TAB PO PRN ×2 (10:12→17:56)
[2022-10-29] MEDS: ESCITALOPRAM 20 MG TAB PO SCH (10:12)
[2022-10-29] MEDS: FUROSEMIDE 10 MG/ML 4 ML VIAL IV SCH (10:13)
[2022-10-29 10:30] LABS: HCT 36.2 % (34.0-46.0); HGB 11.5 gm/dL (11.4-16.0); Hypochromasia Moderate; MCH 32.3 pg (25.0-35.0); MCHC 31.8 g/dL (31.0-37.0); MCV 101.7 fL (80.0-100.0); Macrocytosis Slight; Mean Platelet Volume 9.1; Platelet Count 107 k/uL (150-450); Poikilocytosis Slight; RBC 3.56 m/uL (3.80-5.40); RDW 15.8 % (11.5-15.5); WBC 10.5 k/uL (3.8-10.6)
--- NOTE | 2022-10-29 10:30 | P.CONS ---
History of Present Illness - Reason for Consult Consult date: 10/29/22 wound care - History of Present Illness This is a 77-year-old patient who is known to the wound care center with a nonhealing ulceration to the left lateral calf. Patient has developed increase in discoloration to the left foot with ischemic changes noted to the digits. Original cause of wound was Trauma. The date acquired was: 07/09/2022. The wound has been in treatment 1 weeks. The wound is currently classified as a Full Thickness Without Exposed Support Structures wound with etiology of To be determined and is located on the Right,Anterior Lower Leg. The wound measures 6.4cm length x 3.8cm width x 0.3cm depth; 19.101cm^2 area and 5.73cm^3 volume. The wound is limited to skin breakdown. There is no tunneling or undermining noted. There is a medium amount of serous drainage noted. The wound margin is distinct with the outline attached to the wound base. There is no granulation within the wound bed. There is a large (67-100%) amount of necrotic tissue within the wound bed including Adherent Slough. The periwound skin appearance had no abnormalities noted for texture. The periwound skin appearance had no ab normalities noted for color. The periwound skin appearance exhibited: Dry/Scaly. The periwound skin appearance did not exhibit: Maceration. Periwound temperature was noted as No Abnormality. Review Of Systems: Constitutional: No fever, no chills, no night sweats. No weight change. No weakness, fatigue or lethargy. No daytime sleepiness. Integumentary:reports wounds, no lesions. No rash or pruritus. No unusual bruising. No change in hair or nails. Physical exam: General Appearance: Alert, cooperative, no distress, appears stated age. Skin: See HPI all other Skin color, texture, tugor normal, no rashes or lesions. Neurologic: Alert oriented x3 Assessment: 1. Atherosclerosis of [place] arteries of right foot with ulceration of the calf 2. 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 Atherosclerosis of left lower extremity with rest pain Plan: 1. Apply Santyl, family moist gauze, dry gauze, rolled gauze and secure with paper tape. Change daily. Patient has an appointment in the wound care center on [address] at 10:15. Thank you for the consultation any questions was contact the wound care center DNP note has been reviewed and discussed with Dr. Sanchez and the impression and plan of care has been directed as dictated. Past Medical History Past Medical History: Atrial Fibrillation, Coronary Artery Disease (CAD), Cancer, Heart Failure, COPD, CVA/TIA, Hyperlipidemia, Hypertension, Mitral Valve Prolapse (MVP), Neurologic Disorder, Osteoarthritis (OA), Pneumonia, Skin Disorder, Sleep Apnea/CPAP/BIPAP, Vascular Disorder Additional Past Medical History / Comment(s): right breast cancer (mastectomy november 2021).,. Multiple Sclerosis. ,PAD hx chronic wounds left foot/lower leg now healed., states feet are red & purple in color, edema both feet., peripheral neuropathy., CVA x2 Jul/Aug 2021 gait unsteady-uses w/c., generalized weakness., hx anemia with iron infusions., hx hospitalization for collapsed lung and respiratory failure with intubation., states lump on her vocal cord.,. oxygen at 2.5-4 L prn, sleep apnea (no machine) History of Any Multi-Drug Resistant Organisms: None Reported Past Surgical History: Appendectomy, Breast Surgery, Coronary Bypass/CABG, Heart Catheterization With Stent, Orthopedic Surgery, Tonsillectomy Additional Past Surgical History / Comment(s): 08/17/21 surgery at [facility] for mass upper back., 11/2020 CABG 4 vessel, PCI/stents in , bilateral iliac arthrectomy/stents ., left foot wound debridements, bronchoscopy/lavage, bilateral breast biopsies, D&C, lumpectomy right breast 08/2021. Right mastectomy (11/26/21) Past Anesthesia/Blood Transfusion Reactions: No Reported Reaction, Motion Sickness Additional Past Anesthesia/Blood Transfusion Reaction / Comm: No hx blood transfusion. Date of Last Stent Placement:: 2008 Additional Psychological History / Comment(s): Pt's due to Covid beginning of July 2021. Additional Past Alcohol Use History / Comment(s): started smoking 1960 (up to 3 ppd), quit may 2020 and restarted (07/28-1 ppd). - Past Family History Father Family Medical History: No Reported History Additional Family Medical History / Comment(s): alcoholism, deseased. Mother Family Medical History: Cancer Additional Family Medical History / Comment(s): Breast and brain cancer. Medications and Allergies Home Medications Medication Instructions Recorded Confirmed Type Atorvastatin [Lipitor] 80 mg PO HS 08/02/20 10/27/22 History Apixaban [Eliquis] 5 mg PO BID #0 08/22/21 10/27/22 Rx Fluticasone/Umeclidin/Vilanter 1 puff INHALATION RT-DAILY PRN 11/01/21 10/27/22 History [Trelegy Ellipta 100-62.5-25] Letrozole [Femara] 2.5 mg PO DAILY 01/04/22 10/27/22 History Nitroglycerin Sl Tabs [Nitrostat] 0.4 mg SUBLINGUAL Q5M PRN 04/16/22 10/27/22 History Metoprolol Tartrate [Lopressor] 75 mg PO BID 07/15/22 10/27/22 History Potassium Chloride ER [K-Dur 20] 20 meq PO DAILY #30 tab 07/17/22 10/27/22 Rx lisinopriL [Zestril] 10 mg PO DAILY 30 Days #60 tab 07/17/22 10/27/22 Rx Furosemide [Lasix] 40 mg PO BID@0900,1600 #60 tab 08/06/22 10/27/22 Rx ALPRAZolam [Xanax] 0.25 mg PO HS 09/16/22 10/27/22 History Acetaminophen Tab [Tylenol] 500 - 1,500 mg PO Q6H PRN 09/16/22 10/27/22 History Albuterol Sulfate [Ventolin HFA] 1 puff INHALATION RT-Q6H PRN 09/16/22 10/27/22 History Gabapentin [Neurontin] 300 mg PO HS 09/16/22 10/27/22 History Collagenase [Santyl Ointment] 1 applic TOPICAL DAILY 30 Days #1 09/23/22 10/27/22 Rx each Escitalopram [Lexapro] 20 mg PO DAILY 10/27/22 10/27/22 History traMADol HCL 50 mg PO HS PRN 10/27/22 10/27/22 History Allergies Allergy/AdvReac Type Severity Reaction Status Date / Time sumatriptan [From Imitrex] AdvReac Chest Pain Verified 10/27/22 22:04 Physical Exam Vitals: Vital Signs Temp Pulse Pulse Resp BP Pulse Ox 10/29/22 08:32 62 10/29/22 08:09 50 L 100 10/29/22 08:00 98.3 F 57 L 15 135/71 96 10/29/22 04:29 41 L 107/54 10/29/22 03:47 97.8 F 87 16 106/63 96 10/28/22 20:04 129 H 10/28/22 20:00 160/74 10/28/22 19:54 113 H 10/28/22 16:50 139 H 18 157/82 98 10/28/22 15:22 60 10/28/22 15:12 100 10/28/22 15:08 60 10/28/22 14:00 139 H 18 10/28/22 12:16 85 18 173/80 100 Intake and Output 10/28/22 10/29/22 10/29/22 22:59 06:59 14:59 Intake Total 8.667 Output Total 275 550 Balance -266.333 -550 Intake: Intake, IV Titration 8.667 Amount Diltiazem 125 mg In 8.667 Sodium Chloride 0.9% 100 ml @ 10 MG/HR 10 mls/hr IV .[id number] [facility] Rx#: [id number] Output: Urine 275 550 Results CBC & Chem 7: 10/28/22 13:35 10/28/22 17:16 Labs: Abnormal Lab Results - Last 24 Hours (Table) 10/28/22 10/28/22 Range/Units 13:35 17:16 WBC 16.1 H (3.8-10.6) k/uL MCV 102.4 H (80.0-100.0) fL RDW 15.9 H (11.5-15.5) % Plt Count 128 L (150-450) k/uL BUN 47 H (7-17) mg/dL Creatinine 1.32 H (0.52-1.04) mg/dL Total Bilirubin 2.8 H (0.2-1.3) mg/dL AST 1424 H (14-36) U/L ALT 1539 H (4-34) U/L Alkaline Phosphatase 156 H (38-126) U/L Creatine Kinase 2824 H* (30-135) U/L Total Protein 6.2 L (6.3-8.2) g/dL Albumin 3.4 L (3.5-5.0) g/dL Assessment and Plan (1) Atherosclerosis of [place] arteries of left leg with ulceration of heel and midfoot Current Visit: No Status: Acute Code(s): I70.244 - ATHSCL [place] ART OF LEFT LEG W ULCER OF HEEL AND MIDFOOT SNOMED Code(s): 018618162 (2) Atherosclerosis of [place] arteries of right leg with ulceration of other part of foot Current Visit: No Status: Acute Code(s): I70.235 - ATHSCL [place] ARTERIES OF RIGHT LEG W ULCER OTH PRT FOOT SNOMED Code(s): 236529083 (3) Non-pressure chronic ulcer of other part of right lower leg with muscle involvement without evidence of necrosis Current Visit: No Status: Acute Code(s): L97.815 - NON-PRS [facility] OTH PRT R LOW LEG W MSL INVL W/O EVD OF NECR SNOMED Code(s): 75411020096333515
[2022-10-29 10:48] LABS: INR 1.7 (<1.2); Prothrombin Time 17.1 sec (9.0-12.0)
[2022-10-29 10:56] LABS: Calcium 8.1 mg/dL (8.4-10.2); Potassium 3.5 mmol/L (3.5-5.1); Total Bilirubin 2.2 mg/dL (0.2-1.3); Total Protein 5.7 g/dL (6.3-8.2)
[2022-10-29] MEDS: COLLAGENASE 250 UNIT/GM OINTMENT 30 GM TUBE TOPICAL SCH (11:44)
[2022-10-29 11:58] VITALS: BMI 18.3
--- NOTE | 2022-10-29 12:00 | P.PN ---
Subjective Progress Note Date: 10/29/22 Principal diagnosis: Acute hepatitis Pleasant 77-year-old male who presented to the emergency department with complaints of weakness. Patient states that she has been having increased weakness, fatigue, decreased appetite and nausea over the last 5 days. She denies any fevers or chills. Denies any chest pain, has some chronic shortness of breath, no abdominal pain no vomiting. past medical history includes peripheral arterial disease, atrial fibrillation, coronary artery disease, heart failure, COPD, TIA, hyperlipidemia, hypertension, right breast cancer, nicotine dependence, and chronic left lower extremity wounds. The patient was noted to have elevated LFTs on admission. She also had elevated troponin as well as being hypertensive. Apparently patient may have been sleeping in her wheelchair at the table for 12 hours. She lives with 2 grandsons and a great-gr anddaughter. She had a CT of the abdomen and pelvis which reported liver size is stable within normal limits. Evidence of long-standing chronic medical renal disease. Moderate diffuse subcutaneous edema consistent with product of fluid overload state, no bowel obstruction. Gallstones are demonstrated. No definitive new acute findings seen. Patient denies any history of liver disease, no prior history of alcohol abuse. States that she has been on antibiotics, although she cannot recall which ones for chronic wounds to her left foot. Looking back at her last discharge summary on 09/17/2022 patient was discharged home on Augmentin for 10 days however patient completed that. Admitting labs WBC 15.2 hemoglobin 14 hematocrit 43 platelet count 157,000 INR 2.2 sodium 140 potassium 4.6 BUN 51 creatinine 1.5 total bilirubin 2.5 AST 2937 ALT 2113 alkaline phosphatase 181 ammonia less than 9 troponin 0.244 lipase 110 10/29/2022: Patient seen and examined today as a follow-up. She denies any abdominal pain, nausea, or vomiting. Does state that she was started on Lipitor for a history of TIA in the last few months. Also states she was started on Lexapro. Creatinine kinase was ordered yesterday and came back at 2824. Acetaminophen level less than 10. Today's labs WBC 10.5 hemoglobin 11.5 platelet count 107,000 INR 1.7 sodium 142 potassium 3.5 BUN 40, creatinine 0.9 glucose 128 total bilirubin 2.2, AST 834 ALT 1219 alkaline phosphatase 125. Gallbladder ultrasound reviewed reporting cholelithiasis with gallbladder wall thickening correlate for cholecystitis. However patient has had previous CT abdomen and pelvis with noted gallbladder stone and patient is asymptomatic. Objective - Vital Signs Vital signs: Vital Signs Temp 97.8 F 10/29/22 03:47 Pulse 41 L 10/29/22 04:29 Resp 16 10/29/22 03:47 BP 107/54 10/29/22 04:29 Pulse Ox 96 10/29/22 03:47 FiO2 Intake & Output 10/28/22 10/29/22 10/29/22 18:59 06:59 18:59 Intake Total 208.667 Output Total 275 550 Balance -66.333 -550 Weight 39.916 kg Intake: Intake, IV Titration 8.667 Amount Diltiazem 125 mg In 8.667 Sodium Chloride 0.9% 100 ml @ 10 MG/HR 10 mls/hr IV .[id number] [facility] Rx#: [id number] Oral 200 Output: Urine 275 550 - Exam General appearance: The patient is alert, oriented, appears in no acute distress. HET: Head is normocephalic and atraumatic. Conjunctiva pink. Sclera anicteric. Neck: Supple without lymphadenopathy. Abdomen: Soft, nontender, nondistended with bowel sounds. No guarding or rigidity. Extremities: Bilateral lower extremity edema, scaly skin, bilateral midfoot and toes with purple discoloration. Skin: No rashes, no jaundice Neurological: No focal deficits. Alert and oriented. - Labs CBC & Chem 7: 10/29/22 10:00 10/29/22 10:00 Labs: Abnormal Lab Results - Last 24 Hours (Table) 10/28/22 10/28/22 Range/Units 13:35 17:16 WBC 16.1 H (3.8-10.6) k/uL MCV 102.4 H (80.0-100.0) fL RDW 15.9 H (11.5-15.5) % Plt Count 128 L (150-450) k/uL BUN 47 H (7-17) mg/dL Creatinine 1.32 H (0.52-1.04) mg/dL Total Bilirubin 2.8 H (0.2-1.3) mg/dL AST 1424 H (14-36) U/L ALT 1539 H (4-34) U/L Alkaline Phosphatase 156 H (38-126) U/L Creatine Kinase 2824 H* (30-135) U/L Total Protein 6.2 L (6.3-8.2) g/dL Albumin 3.4 L (3.5-5.0) g/dL Assessment and Plan (1) Acute hepatitis Narrative/Plan: 77-year-old female presented to emergency department with complaints of ge neralized weakness and increased fatigue. Patient has multiple comorbidities including coronary artery disease atrial fibrillation, congestive heart failure, peripheral arterial disease currently on Eliquis. Patient's initial labs showed elevated troponin, acute kidney injury with significantly elevated LFTs. No underlying history of liver disease, no previous history of alcohol abuse. Was recently on Augmentin at the end of August part of September. Patient was hypertensive on admission, tachycardic, afebrile. Unclear etiology of elevated LFTs, likely looking at possible ischemic hepatitis versus medication induced hepatitis. We will order acute hepatitis panel, gallbladder ultrasound, and acetaminophen level. L4 5 23: LFTs are trending down. Patient still denies any abdominal pain, nausea or vomiting. Creatinine kinase 2824, acute hepatitis could be related to rhabdomyolysis versus medication induced. However medication induced hepatitis favorable for high-dose atorvastatin 80 mg daily, recent antibiotic use, and recently started on Lexapro. Continue to hold hepatotoxic medications. Continue with medical management. Current Visit: Yes Status: Acute Code(s): B17.9 - ACUTE VIRAL HEPATITIS, U NSPECIFIED SNOMED Code(s): 55774425 (2) MARY (acute kidney injury) Current Visit: Yes Status: Acute Code(s): N17.9 - ACUTE KIDNEY FAILURE, UNSPECIFIED SNOMED Code(s): 88475648 (3) Atrial fibrillation Current Visit: Yes Status: Acute Code(s): I48.91 - UNSPECIFIED ATRIAL FIBRILLATION SNOMED Code(s): 99822335 (4) Elevated troponin Current Visit: No Status: Acute Code(s): R77.8 - OTHER SPECIFIED ABNORMALITIES OF PLASMA PROTEINS SNOMED Code(s): 145125605 (5) Weakness Current Visit: Yes Status: Acute Code(s): R53.1 - WEAKNESS SNOMED Code(s): 39419278 Plan: 1. Continue symptomatic care 2. Continue to avoid hepatotoxic medications and recommend discontinuing atorvastatin 3. Gallbladder ultrasound reviewed 4. Acute hepatitis panel ordered 5. Repeat CBC, CMP, CK tomorrow Thank you for this consultation, we will continue to follow. Dr. Rose Gutierrez I agree with the dictator's note, documented as a scribe by Esthela Agudelo.
--- NOTE | 2022-10-29 12:35 | P.PN ---
Subjective Progress Note Date: 10/29/22 HISTORY OF PRESENT ILLNESS: This is a 77-year-old female with history of coronary artery disease with previous CABG, ischemic cardiomyopathy, history of left ventricular thrombus, peripheral arterial disease, hypertension, hyperlipidemia, and paroxysmal atrial fibrillation. Patient is admitted to the hospital secondary to acute renal failure and transaminitis. Patient was in atrial fibrillation with RVR last night. She was started on IV Cardizem and this morning she is maintaining sinus mechanism. However shortly after she was evaluated by cardiology this morning, patient back into atrial fibrillation with controlled ventricular rates in the 80s. Her IV Cardizem has been discontinued. She remains on metoprolol tartrate. PHYSICAL EXAM: VITAL SIGNS: Reviewed. GENERAL: Well-developed in no acute distress. NECK: Supple. No JVD or thyromegaly LUNGS: Respirations even and unlabored. Lungs diminished to auscultation bilaterally. HEART: Regular rate and rhythm. S1 and S2 heard. + systolic murmur. EXTREMITIES: Normal range of motion. No clubbing or cyanosis. Patient with necrosis noted to left foot (Vascular following) ASSESSMENT: Acute renal failure Abnormal troponin, secondary to above, ACS ruled out Transaminitis Coagulopathy Paroxysmal atrial fibrillation with RVR Coronary artery disease with previous CABG Ischemic cardiomyopathy Peripheral arterial disease Hypertension Hyperlipidemia History of congestive heart failure PLAN: 2D echo ordered. Await results. IV Cardizem discontinued Decrease metoprolol to 50mg BID as patient is bradycardic when in sinus mechanism Eliquis remains on hold (secondary to elevated INR and awaiting vascular evaluation) Further recommendations pending patient course Nurse practitioner note has been reviewed by physician. Signing provider agrees with the documented findings, assessment, and plan of care. Objective - Vital Signs Vital signs: Vital Signs Temp 97.1 F L 10/29/22 12:01 Pulse 82 10/29/22 12:01 Resp 16 10/29/22 12:01 BP 134/64 10/29/22 12:01 Pulse Ox 94 L 10/29/22 12:01 FiO2 Intake & Output 10/28/22 10/29/22 10/29/22 18:59 06:59 18:59 Intake Total 208.667 240 Output Total 275 550 Balance -66.333 -550 240 Weight 39.916 kg 39.916 kg Intake: Intake, IV Titration 8.667 Amount Diltiazem 125 mg In 8.667 Sodium Chloride 0.9% 100 ml @ 10 MG/HR 10 mls/hr IV .[id number] [facility] Rx#: [id number] Oral 200 240 Output: Urine 275 550 Other: Voiding Method External Catheter - Labs CBC & Chem 7: 10/29/22 10:00 10/29/22 10:00 Labs: Abnormal Lab Results - Last 24 Hours (Table) 10/28/22 10/28/22 10/29/22 Range/Units 13:35 17:16 10:00 WBC 16.1 H (3.8-10.6) k/uL RBC 3.56 L (3.80-5.40) m/uL MCV 102.4 H 101.7 H (80.0-100.0) fL RDW 15.9 H 15.8 H (11.5-15.5) % Plt Count 128 L 107 L (150-450) k/uL PT (9.0-12.0) sec INR (<1.2) BUN 47 H (7-17) mg/dL Creatinine 1.32 H (0.52-1.04) mg/dL Glucose (74-99) mg/dL Calcium (8.4-10.2) mg/dL Total Bilirubin 2.8 H (0.2-1.3) mg/dL AST 1424 H (14-36) U/L ALT 1539 H (4-34) U/L Alkaline Phosphatase 156 H (38-126) U/L Creatine Kinase 2824 H* (30-135) U/L Total Protein 6.2 L (6.3-8.2) g/dL Albumin 3.4 L (3.5-5.0) g/dL 10/29/22 10/29/22 Range/Units 10:00 10:00 WBC (3.8-10.6) k/uL RBC (3.80-5.40) m/uL MCV (80.0-100.0) fL RDW (11.5-15.5) % Plt Count (150-450) k/uL PT 17.1 H (9.0-12.0) sec INR 1.7 H (<1.2) BUN 40 H (7-17) mg/dL Creatinine (0.52-1.04) mg/dL Glucose 128 H (74-99) mg/dL Calcium 8.1 L (8.4-10.2) mg/dL Total Bilirubin 2.2 H (0.2-1.3) mg/dL AST 834 H (14-36) U/L ALT 1219 H (4-34) U/L Alkaline Phosphatase (38-126) U/L Creatine Kinase (30-135) U/L Total Protein 5.7 L (6.3-8.2) g/dL Albumin 3.0 L (3.5-5.0) g/dL
--- NOTE | 2022-10-29 12:47 | P.GSCN ---
History of Present Illness Consult date: 10/29/22 Reason for Consult: Severe peripheral vascular disease Requesting physician: Dov Erazo History of present illness: Pleasant 77-year-old male who presented to the emergency department with complaints of weakness on 10/27/2022. Patient states that she has been having increased weakness, fatigue, decreased appetite and nausea over the last 5 days prior to coming to the hospital. According to chart records family reported that the patient had been in her wheelchair at the kitchen table sleeping for at least 12 hours. She denies any fevers or chills. Denies any chest pain, has some chronic shortness of breath, no abdominal pain no vomiting. past medical history includes peripheral arterial disease, atrial fibrillation, coronary artery disease, heart failure, COPD, TIA, hyperlipidemia, hypertension, right breast cancer, nicotine dependence, and chronic left lower extremity wounds. She was known to vascular surgical services hand has a long history of chronic peripheral arterial disease and chronic wounds. She last saw Dr. Tadeo in the office about 2 weeks ago. She was recently hospitalized in August for lower extremity wounds, cellulitis and underwent surgical debridement of the right low er extremity wound. Patient follows with [facility] wound [place]. Currently using Santyl on her right lower extremity wound. The patient was noted to have significantly elevated LFTs on admission. She also had elevated troponin as well as being hypertensive. She lives with 2 grandsons and a great- granddaughter. She had a CT of the abdomen and pelvis which reported liver size is stable within normal limits. Evidence of long-standing chronic medical renal disease. Moderate diffuse subcutaneous edema consistent with product of fluid overload state, no bowel obstruction. Gallstones are demonstrated. No definitive new acute findings seen. She has a history of bilateral iliac stents, last CTA abdomen aorta with runoff done on 06/25/2022 reported right lower extremity with moderate arthrosclerotic changes severe focal stenosis of the proximal to mid renal artery beyond its origin. Right common and external iliac artery stents. Occlusion at the origin of the right internal iliac artery. Patent cath A with SFA occlusion reconstitution of the upper popliteal artery. Left external iliac artery stent with moderate segmental stenosis throughout left internal iliac artery and common femoral artery. Severe focal stenosis at the origin of PSA. Patent SFA stent and popliteal artery. Patient states feet have been discolored and purple 4 months. Plan is for outpatient surgical intervention with Dr. Tadeo. She does complain of pain in bilateral feet and toes. She currently denies any chest pain, shortness of breath, abdominal pain, nausea or vomiting. She's been afebrile. Admitting labs WBC 15.2 hemoglobin 14 hematocrit 43 platelet count 157,000 INR 2.2 sodium 140 potassium 4.6 BUN 51 creatinine 1.5 total bilirubin 2.5 AST 2937 ALT 2113 alkaline phosphatase 181 ammonia less than 9 troponin 0.244 lipase 110 Review of Systems A 14 point review systems was completed all pertinent positives and negatives as stated in the HPI. Past Medical History Past Medical History: Atrial Fibrillation, Coronary Artery Disease (CAD), Cancer, Heart Failure, COPD, CVA/TIA, Hyperlipidemia, Hypertension, Mitral Valve Prolapse (MVP), Neurologic Disorder, Osteoarthritis (OA), Pneumonia, Skin Disorder, Sleep Apnea/CPAP/BIPAP, Vascular Disorder Additional Past Medical History / Comment(s): right breast cancer (mastectomy november 2021).,. Multiple Sclerosis. ,PAD hx chronic wounds left foot/lower leg now healed., states feet are red & purple in color, edema both feet., peripheral neuropathy., CVA x2 Jul/Aug 2021 gait unsteady-uses w/c., generalized w eakness., hx anemia with iron infusions., hx hospitalization for collapsed lung and respiratory failure with intubation., states lump on her vocal cord.,. oxygen at 2.5-4 L prn, sleep apnea (no machine) History of Any Multi-Drug Resistant Organisms: None Reported Past Surgical History: Appendectomy, Breast Surgery, Coronary Bypass/CABG, Heart Catheterization With Stent, Orthopedic Surgery, Tonsillectomy Additional Past Surgical History / Comment(s): 08/17/21 surgery at [place] for mass upper back., 11/2020 CABG 4 vessel, PCI/stents in , bilateral iliac arthrectomy/stents ., left foot wound debridements, bronchoscopy/lavage, bilateral breast biopsies, D&C, lumpectomy right breast 08/2021. Right mastectomy (11/26/21) Past Anesthesia/Blood Transfusion Reactions: No Reported Reaction, Motion Sickness Additional Past Anesthesia/Blood Transfusion Reaction / Comm: No hx blood transfusion. Date of Last Stent Placement:: 2008 Additional Psychological History / Comment(s): Pt's due to Covid beginning of July 2021. Additional Past Alcohol Use History / Comment(s): started smoking 1960 (up to 3 ppd), quit may 2020 and restarted (1/2-1 ppd). - Past Family History Father Family Medical History: No Reported History Additional Family Medical History / Comment(s): alcoholism, deseased. Mother Family Medical History: Cancer Additional Family Medical History / Comment(s): Breast and brain cancer. Medications and Allergies Home Medications Medication Instructions Recorded Confirmed Type Atorvastatin [Lipitor] 80 mg PO HS 08/02/20 10/27/22 History Apixaban [Eliquis] 5 mg PO BID #0 08/22/21 10/27/22 Rx Fluticasone/Umeclidin/Vilanter 1 puff INHALATION RT-DAILY PRN 11/01/21 10/27/22 History [Trelegy Ellipta 100-62.5-25] Letrozole [Femara] 2.5 mg PO DAILY 01/04/22 10/27/22 History Nitroglycerin Sl Tabs [Nitrostat] 0.4 mg SUBLINGUAL Q5M PRN 04/16/22 10/27/22 History Metoprolol Tartrate [Lopressor] 75 mg PO BID 07/15/22 10/27/22 History Potassium Chloride ER [K-Dur 20] 20 meq PO DAILY #30 tab 07/17/22 10/27/22 Rx lisinopriL [Zestril] 10 mg PO DAILY 30 Days #60 tab 07/17/22 10/27/22 Rx Furosemide [Lasix] 40 mg PO BID@0900,1600 #60 tab 08/06/22 10/27/22 Rx ALPRAZolam [Xanax] 0.25 mg PO HS 09/16/22 10/27/22 History Acetaminophen Tab [Tylenol] 500 - 1,500 mg PO Q6H PRN 09/16/22 10/27/22 History Albuterol Sulfate [Ventolin HFA] 1 puff INHALATION RT-Q6H PRN 09/16/22 10/27/22 History Gabapentin [Neurontin] 300 mg PO HS 09/16/22 10/27/22 History Collagenase [Santyl Ointment] 1 applic TOPICAL DAILY 30 Days #1 09/23/22 10/27/22 Rx each Escitalopram [Lexapro] 20 mg PO DAILY 10/27/22 10/27/22 History traMADol HCL 50 mg PO HS PRN 10/27/22 10/27/22 History Allergies Allergy/AdvReac Type Severity Reaction Status Date / Time sumatriptan [From Imitrex] AdvReac Chest Pain Verified 10/27/22 22:04 Surgical - Exam Vital Signs Temp Pulse Resp BP Pulse Ox 98 F 120 H 16 186/101 99 10/27/22 21:16 10/27/22 21:16 10/27/22 21:16 10/27/22 21:16 10/27/22 21:16 General appearance: The patient is alert, oriented, appears in no acute distress. Patient seems slightly confused this morning. HET: Head is normocephalic and atraumatic. Pupils are equal and reactive. Neck: Supple. Heart: Regular. Lungs: Equal expansion, normal respiratory effort. Abdomen: Soft, nontender, nondistended. Extremities: Bilateral lower extremity edema, scaly skin, mid foot and toes bilateral with cyanotic changes, cool to the touch and painful. Right lower e xtremity wound with dressing clean dry and intact, left lower extremity wound with dressing clean dry and intact. Bilateral palpable femoral pulses. On the right lower extremity biphasic popliteal, PT and DP signals. Popliteal, PT and DP with monophasic signals. Neurological: No focal deficits. Slightly confused. Strength and sensation are grossly intact. Results - Labs 10/29/22 10:00 10/29/22 10:00 Abnormal Lab Results - Last 24 Hours (Table) 10/28/22 10/28/22 Range/Units 13:35 17:16 WBC 16.1 H (3.8-10.6) k/uL MCV 102.4 H (80.0-100.0) fL RDW 15.9 H (11.5-15.5) % Plt Count 128 L (150-450) k/uL BUN 47 H (7-17) mg/dL Creatinine 1.32 H (0.52-1.04) mg/dL Total Bilirubin 2.8 H (0.2-1.3) mg/dL AST 1424 H (14-36) U/L ALT 1539 H (4-34) U/L Alkaline Phosphatase 156 H (38-126) U/L Creatine Kinase 2824 H* (30-135) U/L Total Protein 6.2 L (6.3-8.2) g/dL Albumin 3.4 L (3.5-5.0) g/dL Diabetes panel 10/28/22 Range/Units 17:16 Sodium 142 (137-145) mmol/L Potassium 4.1 (3.5-5.1) mmol/L Chloride 105 (98-107) mmol/L Carbon Dioxide 26 (22-30) mmol/L BUN 47 H (7-17) mg/dL Creatinine 1.32 H (0.52-1.04) mg/dL Glucose 90 (74-99) mg/dL Calcium 8.5 (8.4-10.2) mg/dL AST 1424 H (14-36) U/L ALT 1539 H (4-34) U/L Alkaline Phosphatase 156 H (38-126) U/L Total Protein 6.2 L (6.3-8.2) g/dL Albumin 3.4 L (3.5-5.0) g/dL Calcium panel 10/28/22 Range/Units 17:16 Calcium 8.5 (8.4-10.2) mg/dL Albumin 3.4 L (3.5-5.0) g/dL Pituitary panel 10/28/22 Range/Units 17:16 Sodium 142 (137-145) mmol/L Potassium 4.1 (3.5-5.1) mmol/L Chloride 105 (98-107) mmol/L Carbon Dioxide 26 (22-30) mmol/L BUN 47 H (7-17) mg/dL Creatinine 1.32 H (0.52-1.04) mg/dL Glucose 90 (74-99) mg/dL Calcium 8.5 (8.4-10.2) mg/dL Adrenal panel 10/28/22 Range/Units 17:16 Sodium 142 (137-145) mmol/L Potassium 4.1 (3.5-5.1) mmol/L Chloride 105 (98-107) mmol/L Carbon Dioxide 26 (22-30) mmol/L BUN 47 H (7-17) mg/dL Creatinine 1.32 H (0.52-1.04) mg/dL Glucose 90 (74-99) mg/dL Calcium 8.5 (8.4-10.2) mg/dL Total Bilirubin 2.8 H (0.2-1.3) mg/dL AST 1424 H (14-36) U/L ALT 1539 H (4-34) U/L Alkaline Phosphatase 156 H (38-126) U/L Total Protein 6.2 L (6.3-8.2) g/dL Albumin 3.4 L (3.5-5.0) g/dL Assessment and Plan Assessment: 1. Bilateral feet with cyanotic changes 2. Chronic peripheral arterial disease with occlusion of right internal iliac artery stent 3. Chronic lower extremity wounds 3. History of bilateral iliac stents 4. Weakness 5. Acute kidney injury 6. Acute hepatitis 7. Atrial fibrillation 8. History of TIA Plan: 1. Consult to wound clinic for local wound care 2. Eliquis on hold for INR 2.2, start heparin drip 3. Continue medical management 4. Lower extremity arterial ultrasound and venous duplex ordered 5. Await further recommendations from vascular surgeon, patient known to Dr. Tadeo with chronic peripheral arterial disease Thank you for this consultation, we'll continue to follow. The impression and plan of care has been dictated as directed. Dr. Tadeo I performed a history and examination of this patient, discussed the same with the dictator. I agree with the dictator's note ,documented as a scribe. Any additional findings or plans will be noted.
[2022-10-29] MEDS ORDERED: METOPROLOL TARTRATE 50 MG TAB PO STA (13:20)
[2022-10-29] MEDS ORDERED: HEPARIN SODIUM 1,000 UN/ML (10ML VL) IV PRN (13:45)
--- NOTE | 2022-10-29 15:24 | US ---
EXAMINATION TYPE: US venous doppler duplex LE DATE OF EXAM: 10/29/2022 1:45 PM COMPARISON: None. CLINICAL HISTORY: lower extremity pain, discoloration toes. SIDE PERFORMED: Bilateral TECHNIQUE: The lower extremity deep venous system is examined utilizing real time linear array sonog agnieszka with graded compression, doppler sonography and color-flow sonography. VESSELS IMAGED: Common Femoral Vein Deep Femoral Vein Greater Saphenous Vein * Femoral Vein Popliteal Vein Small Saphenous Vein * Proximal Calf Veins (* superficial vessels) Right Leg: Negative for DVT Left Leg: Negative for DVT Grayscale, color doppler, spectral doppler imaging performed of the deep veins of the bilateral lower extremities. There is normal flow, compressibility, vascular waveforms. Mild Subcutaneous edema di stally is seen bilaterally. IMPRESSION: No ultrasound evidence for acute DVT in either lower extremity.
--- NOTE | 2022-10-29 16:25 | P.PN ---
Subjective Progress Note Date: 10/29/22 77-year-old pleasant female with a history of COPD continues to smoke. 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 Patient is also found a highly elevated AST and ALT AST being 2900 and ALP being 2100 and patient does have some edema of the abdominal wall chest x-ray did not show any significant abnormality but BNP is elevated to 22,000 and patient has history of heart failure with EF of around 45%. RVSP is not known. Patient is an creatinine is around 0.8 present creatinine is 1.5 to INR is 2.2 and patient is on eliquis. Does have history of atrial fibrillation. Presently no evidence of GI bleed at this time. Patient does have history of cerebrovascular disease follows up with gastro-surgery as an outpatient patient has significant cyanosis of bilateral lower extremity. Patient does have leukocytosis without any fever. Does have an ulcer in the right lower extremity below the midshin area. 10/29/2022 Patient is seen and evaluated in follow-up this morning with multiple consultations following including vascular surgery, cardiology, GI, and wound care. Patient was continued on IV Lasix and diuresed well as patient reports she has been urinating frequently and will transition to oral Lasix. Vascular surgery following as well and eliquis currently on hold and awaiting further testing. Venous Doppler was ordered along with 2-D echo. Patient was on IV Cardizem for atrial fibrillation and recommend telemetry monitoring and adjustments to medications have been done. Patient was evaluated by GI service for significantly elevated LFTs and recommend holding hepatotoxic medications and will discontinue statin for now and awaiting hepatitis panel. No plans for endoscopic intervention at this time and will follow-up with repeat labs. Patient also with significant weakness and would recommend physical therapy evaluation and would recommend daily. Patient is refusing any form of rehab and will be going home once stabilized discharged from consultations. Patient is currently afebrile with no reports of worsening shortness of breath and denies chest pain. Patient denies palpitations at this time just feels generally weak and fatigued. Patient is chronically wearing oxygen and is maintained on 2 L cu rrently. Review of systems: Constitutional: reports of fatigue, no fever, or chills Cardiovascular: No reports of chest pain or palpitations Respiratory: No reports of worsening shortness of breath or cough GI: No reports of nausea, vomiting, or diarrhea : No reports of dysuria or retention, patient reports voiding frequently due to diuretics Neurovascular: reports of generalized weakness and also reports her discoloration of her lower extremities have been ongoing for the last few months All medications have been reviewed Active Medications Albuterol Sulfate (Albuterol Nebulized 2.5 Mg/3 Ml) 2.5 mg INHALATION RT-QID MARY ANNE Last Admin: 10/29/22 15:51 Dose: 2.5 mg Albuterol Sulfate (Albuterol Nebulized 2.5 Mg/3 Ml) 2.5 mg INHALATION RT-QID PRN PRN Reason: Shortness Of Breath Or Wheezing Budesonide/Formoterol Fumarate (Symbicort 80-4.5 Mcg Inhaler) 2 puff INHALATION RT-BID [facility] [place] Last Admin: 10/29/22 08:05 Dose: 2 puff Collagenase (Collagenase 250 Unit/Gm Ointment 30 Gm Tube) 1 applic TOPICAL DAILY [facility]; Protocol Last Admin: 10/29/22 11:44 Dose: 1 applic Escitalopram Oxalate (Escitalopram 20 Mg Tab) 20 mg PO DAILY [facility] [place] Last Admin: 10/29/22 10:12 Dose: 20 mg Furosemide (Furosemide 40 Mg Tab) 40 mg PO BID@0900,1600 [facility] Gabapentin (Gabapentin 100 Mg Cap) 100 mg PO HS [facility] Last Admin: 10/28/22 23:51 Dose: 100 mg Heparin Sodium (Porcine) (Heparin Sodium 1,000 Un/Ml (10ml Vl)) 0 unit IV PER PROTOCOL PRN; Protocol PRN Reason: Low PTT Hydromorphone HCl (Hydromorphone 0.5 Mg/0.5 Ml Syringe) 0.5 mg IVP Q4HR PRN PRN Reason: Pain Last Admin: 10/29/22 11:45 Dose: 0.5 mg Heparin Sodium/Sodium Chloride (25,000 unit/ Sodium Chloride) 250 mls @ 7.185 mls/hr IV .Q24H [facility] [place]; Protocol Ipratropium Advance (Ipratropium 0.5 Mg/2.5 Ml Nebu) 0.5 mg INHALATION RT-QID MARY ANNE Last Admin: 10/29/22 15:51 Dose: 0.5 mg Ipratropium Advance (Ipratropium 0.5 Mg/2.5 Ml Nebu) 0.5 mg INHALATION RT-QID PRN PRN Reason: Shortness Of Breath Or Wheezing Metoprolol Tartrate (Metoprolol Tartrate 50 Mg Tab) 50 mg PO BID MARY ANNE Naloxone HCl (Naloxone 0.4 Mg/Ml 1 Ml Vial) 0.2 mg IV Q2M PRN PRN Reason: Opioid Reversal Nitroglycerin (Nitroglycerin Sl Tabs 0.4 Mg Tab) 0.4 mg SUBLINGUAL Q5M PRN PRN Reason: Chest Pain Tramadol HCl (Tramadol 50 Mg Tab) 50 mg PO Q6H PRN PRN Reason: Pain Last Admin: 10/29/22 10:12 Dose: 50 mg PHYSICAL EXAMINATION: GENERAL: The patient is alert and oriented x3, not in any acute distress. Well developed, well nourished. Thin built HEENT: Pupils are round and equally reacting to light. EOMI. No scleral icterus. No conjunctival pallor. Normocephalic, atraumatic. No pharyngeal erythema. No thyromegaly. CARDIOVASCULAR: S1 and S2 present. No murmurs, rubs, or gallops. PULMONARY: Chest is clear to auscultation, no wheezing or crackles. Faint Expiratory wheezing ABDOMEN: Soft, nontender, nondistended, normoactive bowel sounds. No palpable organomegaly. MUSCULOSKELETAL: No joint swelling or deformity. EXTREMITIES: No clubbing, or pedal edema. NEUROLOGICAL: Gross neurological examination did not reveal any focal deficits. SKIN: Cyanosis of bilateral lower extremities extending up to the mid foot area and an right healing ulcer on the anterior aspect of the right midshin Assessment: -Acute on chronic hypoxic and hypercapnic respiratory failure secondary to severe COPD exacerbation, patient does have CHF as well patient does use 3 L of oxygen at home patient will be started on inhaled steroids and inhalational treatments. -Congestive heart failure chronic systolic dysfunction with acute exacerbation -Acute on chronic hypoxic respiratory failure and chronically wears 2-3 L outpatient -Transaminitis: Secondary to hepatic congestion -Mild troponin elevation secondary to CHF -Acute renal failure, prerenal azotemia secondary to congestive heart failure, improving -Leukocytosis reactive in nature -Atrial fibrillation paroxysmal presently rate controlled -Coagulopathy elevated INR of 2.2 probably can be resumed tomorrow at a low dose considering renal dysfunction -COPD with acute exacerbation -Continued ongoing nicotine dependence -Hyperlipidemia -Hypertension -Severe peripheral vascular disease with the cyanosis of bilateral lower extremities -Coronary artery disease with stents in the past and CABG in the past -DVT prophylaxis: Patient is anticoagulated of coagulopathy and hepatic congestion -GI prophylaxis -DVT prophylaxis Plan: Recommend to continue with current medications and management with multiple consultations following. Cardiology following and will continue on telemetry monitoring and adjustments to medications being done Patient being followed by vascular surgery and [facility] Currently on hold and awaiting further testing including Doppler of lower extremities Encourage small frequent meals and increased activity as tolerated Would recommend physical therapy evaluation although patient is adamant she is returning home and was refusing to go to rehab Will follow-up with vascular surgery in regards to treatment plan as well as anticoagulation Patient was on IV diuresis and diuresed well and we'll transition to oral Lasix this afternoon in follow-up with repeat labs The impression and plan of care has been dictated by Valeri Fritz, Nurse Practitioner as directed. Dr. Kacey MD I have performed a history and examination and MDM of this patient, discussed the same with the dictator, and agree with the dictator's assessment and plan as written ,documented as a scribe. Based on total visit time, I have performed more than 50% of the visit. Objective - Vital Signs Vital signs: Vital Signs Temp 97.1 F L 10/29/22 12:01 Pulse 82 10/29/22 12:01 Resp 16 10/29/22 12:01 BP 134/64 10/29/22 12:01 Pulse Ox 94 L 10/29/22 12:01 FiO2 Intake & Output 10/28/22 10/29/22 10/29/22 18:59 06:59 18:59 Intake Total 208.667 780 Output Total 275 550 650 Balance -66.333 -550 130 Weight 39.916 kg 39.916 kg Intake: Intake, IV Titration 8.667 Amount Diltiazem 125 mg In 8.667 Sodium Chloride 0.9% 100 ml @ 10 MG/HR 10 mls/hr IV .[id number] [facility] Rx#: [id number] Oral 200 780 Output: Urine 275 550 650 Other: Voiding Method External Catheter # Voids 2 # Bowel Movements 0 - Labs CBC & Chem 7: 10/29/22 10:00 10/29/22 10:00 Labs: Abnormal Lab Results - Last 24 Hours (Table) 10/28/22 10/29/22 10/29/22 Range/Units 17:16 10:00 10:00 RBC 3.56 L (3.80-5.40) m/uL MCV 101.7 H (80.0-100.0) fL RDW 15.8 H (11.5-15.5) % Plt Count 107 L (150-450) k/uL PT (9.0-12.0) sec INR (<1.2) BUN 47 H 40 H (7-17) mg/dL Creatinine 1.32 H (0.52-1.04) mg/dL Glucose 128 H (74-99) mg/dL Calcium 8.1 L (8.4-10.2) mg/dL Total Bilirubin 2.8 H 2.2 H (0.2-1.3) mg/dL AST 1424 H 834 H (14-36) U/L ALT 1539 H 1219 H (4-34) U/L Alkaline Phosphatase 156 H (38-126) U/L Creatine Kinase 2824 H* (30-135) U/L Total Protein 6.2 L 5.7 L (6.3-8.2) g/dL Albumin 3.4 L 3.0 L (3.5-5.0) g/dL 10/29/22 Range/Units 10:00 RBC (3.80-5.40) m/uL MCV (80.0-100.0) fL RDW (11.5-15.5) % Plt Count (150-450) k/uL PT 17.1 H (9.0-12.0) sec INR 1.7 H (<1.2) BUN (7-17) mg/dL Creatinine (0.52-1.04) mg/dL Glucose (74-99) mg/dL Calcium (8.4-10.2) mg/dL Total Bilirubin (0.2-1.3) mg/dL AST (14-36) U/L ALT (4-34) U/L Alkaline Phosphatase (38-126) U/L Creatine Kinase (30-135) U/L Total Protein (6.3-8.2) g/dL Albumin (3.5-5.0) g/dL Microbiology - Last 24 Hours (Table) 10/28/22 10:43 Blood Culture - Preliminary Blood No Growth after 24 hours
[2022-10-29] MEDS: FUROSEMIDE 40 MG TAB PO SCH (17:56)
[2022-10-29] MEDS: HEPARIN SOD,PORK IN 0.45% NACL 25,000 UNIT in 0.45% NACL 1 250ML.BAG IV SCH (18:04)
[2022-10-29] MEDS: METOPROLOL TARTRATE 50 MG TAB PO SCH (20:16)
[2022-10-29] MEDS: GABAPENTIN 100 MG CAP PO SCH (20:16)
[2022-10-29] MEDS ORDERED: APIXABAN 5 MG TAB PO SCH (21:00)
[2022-10-29] MEDS: diphenhydrAMINE 25 MG CAP PO PRN (23:53)
[2022-10-30] MEDS: HYDROmorphone 0.5 MG/0.5 ML SYRINGE IVP PRN (06:03)
[2022-10-30] MEDS: SYMBICORT 80-4.5 MCG INHALER INHALATION SCH ×2 (07:47→20:30)
[2022-10-30] MEDS: IPRATROPIUM 0.5 MG/2.5 ML NEBU INHALATION SCH ×5 (07:47→20:30)
[2022-10-30] MEDS: ALBUTEROL NEBULIZED 2.5 MG/3 ML INHALATION SCH ×5 (07:47→20:30)
[2022-10-30] MEDS: FUROSEMIDE 40 MG TAB PO SCH ×2 (09:03→16:52)
[2022-10-30] MEDS: ESCITALOPRAM 20 MG TAB PO SCH (09:03)
[2022-10-30] MEDS: METOPROLOL TARTRATE 50 MG TAB PO SCH ×2 (09:03→20:25)
[2022-10-30] MEDS ORDERED: METOPROLOL TARTRATE 25 MG TAB PO STA (09:41)
--- NOTE | 2022-10-30 09:48 | CA ---
Transthoracic Echo Report Name: Sharmila Ayers Age: 77 Gender: F : 1945 Exam Date: 10/29/2022 14:04 Exam Location: [place] [facility] Ht (in): 60 Wt (lb): 88 Ordering Physician: Barb Rodríguez Attending/Referring Phys: [id number], Marcos Derrick Boat Runner Luca Rosales RDCS Procedure CPT: Indications: LV function Cardiac Hx: Technical Quality: Fair Contrast 1: Total Dose (mL): Contrast 2: Total Dose (mL): MEASUREMENTS (Male / Female) Normal Values 2D ECHO LV Diastolic Diameter PLAX 3.6 cm 4.2 - 5.9 / 3.9 - 5.3 cm LV Systolic Diameter PLAX 3.2 cm IVS Diastolic Thickness 1.3 cm 0.6 - 1.0 / 0.6 - 0.9 cm LVPW Diastolic Thickness 1.4 cm 0.6 - 1.0 / 0.6 - 0.9 cm LV Relative Wall Thickness 0.7 RV Internal Dim ED PLAX 2.5 cm LA Volume 86.7 cm??? 18 - 58 / 22 - 52 cm??? M-MODE Aortic Root Diameter MM 2.1 cm MV E Point Septal Separation 0.5 cm AV Cusp Separation MM 1.4 cm DOPPLER AV Peak Velocity 127.9 cm/s AV Peak Gradient 6.5 mmHg LVOT Peak Velocity 88.7 cm/s LVOT Peak Gradient 3.1 mmHg MV Area PHT 5.4 cm??? MR Peak Velocity 610.5 cm/s MR Peak Gradient 149.1 mmHg Mitral E Point Velocity 101.3 cm/s Mitral A Point Velocity 49.2 cm/s Mitral E to A Ratio 2.1 MV Deceleration Time 140.4 ms TR Peak Velocity 243.1 cm/s TR Peak Gradient 23.6 mmHg Right Atrial Pressure 15.0 mmHg Pulmonary Artery Systolic Pressu 38.6 mmHg Right Ventricular Systolic Press 38.6 mmHg FINDINGS Left Ventricle Moderately increased septal wall thickness. Moderately increased posterior wall thickness. Grade 4 diastolic dysfunction. Small left ventricular cavity. Left ventricular ejection fraction is estimated at 35-40 %. Right Ventricle Normal right ventricular size. Severely reduced right ventricular global systolic function. Mild pulmonary hypertension. Right Atrium Right atrial dilatation. Left Atrium Severely increased left atrial volume. Mitral Valve Moderate mitral regurgitation. Aortic Valve Trileaflet aortic valve. No aortic stenosis. No aortic regurgitation. Tricuspid Valve Mild tricuspid regurgitation. Pulmonic Valve [id number] pulmonic regurgitation. Pericardium Small pericardial effusion. Aorta Normal size aortic root and proximal ascending aorta. CONCLUSIONS LV size is normal there is moderate concentric LVH. There is mild to moderate global decrease in contractility with estimated ejection fraction of 35-40%. Moderate mitral and tricuspid insufficiency. No significant pulmonary hypertension but right-sided pressures are not well quantified Previewed by: Dr. Kari Winters MD (Electronically Signed) Final Date: 30 October 2022 09:47
--- NOTE | 2022-10-30 11:53 | P.PN ---
Subjective Progress Note Date: 10/30/22 HISTORY OF PRESENT ILLNESS: This is a 77-year-old female with history of coronary artery disease with previous CABG, ischemic cardiomyopathy, history of left ventricular thrombus, peripheral arterial disease, hypertension, hyperlipidemia, and paroxysmal atrial fibrillation. Patient is admitted to the hospital secondary to acute renal failure and transaminitis. Patient was in atrial fibrillation with RVR last night. She was started on IV Cardizem and this morning she is maintaining sinus mechanism. However shortly after she was evaluated by cardiology this morning, patient back into atrial fibrillation with controlled ventricular rates in the 80s. Her IV Cardizem has been discontinued. She remains on metoprolol tartrate. 10/30/2022 Patient examined this morning. She is sitting in the chair. She denies chest pain or pressure. She denies shortness of breath. Telemetry reveals atrial flutter with a heart rate in the 20s. The patient was seen by vascular surgery yesterday and remains on a heparin drip. Her Eliquis remains on hold. Echocardiogram completed revealing ejection fraction of 35-40%, moderate MR, mild pulmonary hypertension. PHYSICAL EXAM: VITAL SIGNS: Reviewed. GENERAL: Well-developed in no acute distress. NECK: Supple. No JVD or thyromegaly LUNGS: Respirations even and unlabored. Lungs diminished to auscultation bilater ally. HEART: Regular rate and rhythm. S1 and S2 heard. + systolic murmur. EXTREMITIES: Normal range of motion. No clubbing or cyanosis. Patient with necrosis noted to left foot (Vascular following) ASSESSMENT: Acute renal failure Abnormal troponin, secondary to above, ACS ruled out Transaminitis Coagulopathy Paroxysmal atrial fibrillation/typical aflutter with RVR Coronary artery disease with previous CABG Ischemic cardiomyopathy Peripheral arterial disease Hypertension Hyperlipidemia History of congestive heart failure PLAN: Continue Metoprolol 50mg BID. Give an extra 25mg x 1 of metoprolol Continue telemetry monitoring Continue additional cardiac medications Eliquis remains on hold (secondary to elevated INR and awaiting further recommendations from vascular surgery) Further recommendations pending patient course Nurse practitioner note has been reviewed by physician. Signing provider agrees with the documented findings, assessment, and plan of care. Objective - Vital Signs Vital signs: Vital Signs Temp 98.1 F 10/30/22 08:00 Pulse 137 H 10/30/22 08:00 Resp 20 10/30/22 08:00 BP 125/81 10/30/22 08:00 Pulse Ox 98 10/30/22 08:00 FiO2 Intake & Output 10/29/22 10/30/22 10/30/22 18:59 06:59 18:59 Intake Total 1320 43.589 118 Output Total 900 800 Balance 420 -756.411 118 Weight 39.916 kg Intake: Intake, IV Titration 43.589 Amount Heparin Sod,Pork in 0.45% 43.589 NaCl 25,000 unit In 0.45 % NaCl 1 250ml.bag @ 18 UNITS/KG/HR 7.185 mls/hr IV .Q24H [facility] Rx#: [id number] Oral 1320 118 Output: Urine 900 800 Other: Voiding Method External Catheter External Catheter External Catheter # Voids 2 1 # Bowel Movements 0 - Labs CBC & Chem 7: 10/29/22 10:00 10/29/22 10:00 Labs: Abnormal Lab Results - Last 24 Hours (Table) 10/29/22 10/29/22 Range/Units 10:00 22:45 PT 17.1 H (9.0-12.0) sec INR 1.7 H (<1.2) APTT 32.2 H (22.0-30.0) sec Microbiology - Last 24 Hours (Table) 10/28/22 10:43 Blood Culture - Preliminary Blood No Growth after 24 hours
[2022-10-30] MEDS: COLLAGENASE 250 UNIT/GM OINTMENT 30 GM TUBE TOPICAL SCH (12:26)
[2022-10-30] MEDS: traMADol 50 MG TAB PO PRN ×2 (12:29→20:25)
--- NOTE | 2022-10-30 12:59 | CT ---
EXAMINATION TYPE: CT angio abd aorta w/Runoff DATE OF EXAM: 10/30/2022 12:22 PM COMPARISON: 10/28/2022, 06/25/2022 HISTORY: PAD of lower legs, swelling, pain CT DLP: 1124.9 mGycm Automated exposure control for dose reduction was used. TECHNIQUE: Performed with IV Contrast, patient injected with 100 mL of Isovue 370. . FINDINGS: Heart is enlarged and there is dense coronary artery calcification bilateral consolidation and small effusion. Underlying COPD suspected. Noncontrast technique limits assessment of the abdominal viscera and bowel. Grossly there is a large gallstone. There is heterogeneous appearance of the kidneys bilaterally which can be associated with renal insufficiency on noncontrast imaging correlate clinically. Simple Bosniak classification right renal cyst measuring 1.8 cm. Grossly spleen, pancreas, adrenal glands, liver homogeneous. Suboptimal evaluation of the bowel. No obvious obstruction. Correlate for diverticulosis. Uterus appears surgically absent. There is hypertrophic and degenerative changes of the spine with sc oliosis. Bilateral hip arthropathy. The aorta is of normal caliber with atherosclerotic plaque. There is no significant stenosis of the a bdominal aorta to the level of the aortic bifurcation. There is atherosclerotic plaque involving the mesenteric vasculature including the celiac axis and SMA and bilateral renal arteries. There is at le ast 50% stenosis origin right renal artery and a severe stenosis measuring greater than 70% approxima tely 1 cm from its ostium. There is a mixed attenuation posterior to the epidermis near the gluteal r egion which should be correlated clinically. VASCULATURE: Scattered moderate atherosclerotic calcifications are present throughout. Celiac axis an d SMA origins are patent. There is possible severe focal stenosis proximal to mid right renal artery, axial image 61 located beyond the origin. HALLE is patent. No aneurysmal change. Right: Right common and external iliac artery stents. Moderate atherosclerotic calcifications continu e along the iliac vessels. Suspect occlusion of the origin of the right internal iliac artery with so me faint distal reconstitution from collateral vessels. Segmental mild stenosis at the distal landing zone of the external iliac artery stent. The common femoral artery shows scattered mild atherosclerotic calcifications. The profunda femoral a rtery is patent. There is SFA occlusion 1 cm below the bifurcation. Reconstitution of the upper popli teal artery. Normal takeoff of the anterior tibial artery. Tibial peroneal demonstrates on axial imag e 387 8 critical stenosis or short segmental occlusion with abrupt reconstitution of the peroneal art kiana beyond the trunk.. Nonvisualization of the posterior tibial artery. The anterior tibial artery be comes markedly diminutive at the distal third leg level. The peroneal artery becomes diminutive at th e distal leg. Faint runoff is seen via the anterior tibial and peroneal arteries. Left: Mild segmental stenoses left common iliac artery. Left external iliac artery stent. Mild stenos is distal left external iliac artery after the stent landing zone. Moderate focal stenosis at the renita gin of the left internal iliac artery with moderate stenoses throughout. Moderate atherosclerotic calcifications of the common femoral artery. Suspect severe focal stenosis a t the origin of the profunda femoral artery which otherwise opacifies. SFA stent is patent but there is an approximate 70% stenosis just proximal to the origin of the common femoral\SFA stent On axial images 252 there is reduced enhancement within the stent metallic and report. The popliteal artery is patent. Normal takeoff of the anterior tibial artery. Moderate atheroscleroti c calcification tibioperoneal trunk and proximal anterior tibial artery. Nonvisualization of the post erior tibial artery. The anterior tibial artery becomes diminutive at the mid leg level. It is not se en beyond the distal third leg level. Faint runoff via the peroneal artery which supplies collateral flow to the distal posterior tibial artery at the ankle. There is diffuse soft tissue edema. Suggestive cervical clips involving the medial soft tissues of th e right lower extremity IMPRESSION: 1. Diffuse atherosclerotic changes of the aorta with no significant aortic stenosis. Suspect a high-g rade significant proximal right renal artery stenosis approximately 1 cm from its origin. 2. Iliac stents appear patent. Does appear to be occlusion of the origin of the right internal iliac artery. 3. Long segmental right superficial femoral artery occlusion reconstituted at the level of the poplit eal artery. As noted above there suspicion for critical stenosis or short segmental occlusion of the tibioperoneal trunk reconstitution of the peroneal artery. 4. Left iliac stent is patent with moderate segmental stenosis throughout the left internal iliac art kiana and common femoral artery. Severe focal stenosis origin of the deep femoral artery. There is a po ssibly significant stenosis proximal to the SFA stent. 5. Infrapopliteal bilateral atherosclerotic change with diminutive vasculature and limited runoff as discussed above. 6. Correlate for anasarca. 7. Striated nephrogram correlate for medical renal disease or infectious etiology. Correlate with uri nalysis. 8. Cholelithiasis. 9. Cardiomegaly with dense coronary artery calcification, small right effusion and left basilar atele ctasis or early infiltrate.
[2022-10-30 14:59] LABS: HCT 38.4 % (34.0-46.0); Hypochromasia Marked; MCH 32.1 pg (25.0-35.0); MCHC 31.2 g/dL (31.0-37.0); MCV 102.9 fL (80.0-100.0); Macrocytosis Slight; Mean Platelet Volume 9.5; Platelet Count 106 k/uL (150-450); Poikilocytosis Slight; RBC 3.73 m/uL (3.80-5.40); RDW 15.8 % (11.5-15.5); WBC 10.7 k/uL (3.8-10.6)
[2022-10-30 15:14] LABS: AST 517 U/L (14-36); African American GFR (CKD) >90 (>60 ml/min/1.73 sqM); Albumin 3.1 g/dL (3.5-5.0); Alkaline Phosphatase 134 U/L (38-126); Anion Gap 7 mmol/L; Blood Urea Nitrogen 26 mg/dL (7-17); Calcium 7.8 mg/dL (8.4-10.2); Carbon Dioxide 36 mmol/L (22-30); Chloride 94 mmol/L (98-107); Creatine Kinase 538 U/L (30-135); Glucose 137 mg/dL (74-99); Non-African American GFR(CKD) 85 (>60 ml/min/1.73 sqM); Potassium 2.8 mmol/L (3.5-5.1); Sodium 137 mmol/L (137-145); Total Bilirubin 1.9 mg/dL (0.2-1.3); Total Protein 5.8 g/dL (6.3-8.2)
[2022-10-30] MEDS: diphenhydrAMINE 25 MG CAP PO PRN (15:18)
--- NOTE | 2022-10-30 15:26 | P.PN ---
Subjective Progress Note Date: 10/30/22 Principal diagnosis: Acute hepatitis Pleasant 77-year-old male who presented to the emergency department with complaints of weakness. Patient states that she has been having increased weakness, fatigue, decreased appetite and nausea over the last 5 days. She denies any fevers or chills. Denies any chest pain, has some chronic shortness of breath, no abdominal pain no vomiting. past medical history includes peripheral arterial disease, atrial fibrillation, coronary artery disease, heart failure, COPD, TIA, hyperlipidemia, hypertension, right breast cancer, nicotine dependence, and chronic left lower extremity wounds. The patient was noted to have elevated LFTs on admission. She also had elevated troponin as well as being hypertensive. Apparently patient may have been sleeping in her wheelchair at the table for 12 hours. She lives with 2 grandsons and a great-gr anddaughter. She had a CT of the abdomen and pelvis which reported liver size is stable within normal limits. Evidence of long-standing chronic medical renal disease. Moderate diffuse subcutaneous edema consistent with product of fluid overload state, no bowel obstruction. Gallstones are demonstrated. No definitive new acute findings seen. Patient denies any history of liver disease, no prior history of alcohol abuse. States that she has been on antibiotics, although she cannot recall which ones for chronic wounds to her left foot. Looking back at her last discharge summary on 09/17/2022 patient was discharged home on Augmentin for 10 days however patient completed that. Admitting labs WBC 15.2 hemoglobin 14 hematocrit 43 platelet count 157,000 INR 2.2 sodium 140 potassium 4.6 BUN 51 creatinine 1.5 total bilirubin 2.5 AST 2937 ALT 2113 alkaline phosphatase 181 ammonia less than 9 troponin 0.244 lipase 110 10/29/2022: Patient seen and examined today as a follow-up. She denies any abdominal pain, nausea, or vomiting. Does state that she was started on Lipitor for a history of TIA in the last few months. Also states she was started on Lexapro. Creatinine kinase was ordered yesterday and came back at 2824. Acetaminophen level less than 10. Today's labs WBC 10.5 hemoglobin 11.5 platelet count 107,000 INR 1.7 sodium 142 potassium 3.5 BUN 40, creatinine 0.9 glucose 128 total bilirubin 2.2, AST 834 ALT 1219 alkaline phosphatase 125. Gallbladder ultrasound reviewed reporting cholelithiasis with gallbladder wall thickening correlate for cholecystitis. However patient has had previous CT abdomen and pelvis with noted gallbladder stone and patient is asymptomatic. 10/30/2022: Patient seen and examined today as a follow-up. She denies any abdominal pain, nausea or vomiting. She has been afebrile. LFTs and repeat creatinine kinase are currently pending. Patient sitting up in a bedside chair, tolerating diet. No acute changes through the night. Objective - Vital Signs Vital signs: Vital Signs Temp 98 F 10/30/22 11:29 Pulse 106 H 10/30/22 11:29 Resp 20 10/30/22 11:29 BP 111/56 10/30/22 11:29 Pulse Ox 99 10/30/22 11:29 FiO2 Intake & Output 10/29/22 10/30/22 10/30/22 18:59 06:59 18:59 Intake Total 1320 43.589 438.011 Output Total 900 800 300 Balance 420 -756.411 138.011 Weight 39.916 kg Intake: Intake, IV Titration 43.589 120.011 Amount Heparin Sod,Pork in 0.45% 43.589 120.011 NaCl 25,000 unit In 0.45 % NaCl 1 250ml.bag @ 18 UNITS/KG/HR 7.185 mls/hr IV .Q24H [facility] Rx#: [id number] Oral 1320 318 Output: Urine 900 800 300 Other: Voiding Method External Catheter External Catheter External Catheter # Voids 2 1 # Bowel Movements 0 - Exam General appearance: The patient is alert, oriented, appears in no acute distress. HET: Head is normocephalic and atraumatic. Conjunctiva pink. Sclera anicteric. Neck: Supple without lymphadenopathy. Abdomen: Soft, nontender, nondistended with bowel sounds. No guarding or rigidity. Extremities: Bilateral lower extremity edema, scaly skin, bilateral midfoot and toes with purple discoloration. Skin: No rashes, no jaundice Neurological: No focal deficits. Alert and oriented. - Labs CBC & Chem 7: 10/30/22 14:29 10/29/22 10:00 Labs: Abnormal Lab Results - Last 24 Hours (Table) 10/29/22 10/30/22 10/30/22 Range/Units 22:45 14:29 14:29 WBC 10.7 H (3.8-10.6) k/uL RBC 3.73 L (3.80-5.40) m/uL MCV 102.9 H (80.0-100.0) fL RDW 15.8 H (11.5-15.5) % Plt Count 106 L (150-450) k/uL APTT 32.2 H 41.9 H (22.0-30.0) sec Microbiology - Last 24 Hours (Table) 10/28/22 10:43 Blood Culture - Preliminary Blood No Growth after 48 hours Assessment and Plan (1) Acute hepatitis Narrative/Plan: 77-year-old female presented to emergency department with complaints of generalized weakness and increased fatigue. Patient has multiple comorbidities including coronary artery disease atrial fibrillation, congestive heart failure, peripheral arterial disease currently on Eliquis. Patient's initial labs showed elevated troponin, acute kidney injury with significantly elevated LFTs. No underlying history of liver disease, no previous history of alcohol abuse. Was recently on Augmentin at the end of August part of September. Patient was hypertensive on admission, tachycardic, afebrile. Unclear etiology of elevated LFTs, likely looking at possible ischemic hepatitis versus medication induced hepatitis. We will order acute hepatitis panel, gallbladder ultrasound, and acetaminophen level. L4 23: LFTs are trending down. Patient still denies any abdominal pain, nausea or vomiting. Creatinine kinase 2824, acute hepatitis could be related to rhabdomyolysis versus medication induced. However medication induced hepatitis favorable for high-dose atorvastatin 80 mg daily, recent antibiotic use, and recently started on Lexapro. Continue to hold hepatotoxic medications. Continue with medical management. Current Visit: Yes Status: Acute Code(s): B17.9 - ACUTE VIRAL HEPATITIS, UNSPECIFIED SNOMED Code(s): 60421101 (2) Peripheral arterial disease Current Visit: Yes Status: Acute Code(s): I73.9 - PERIPHERAL VASCULAR DISEASE, UNSPECIFIED SNOMED Code(s): 598521806 (3) MARY (acute kidney injury) Current Visit: Yes Status: Acute Code(s): N17.9 - ACUTE KIDNEY FAILURE, UNSPECIFIED SNOMED Code(s): 33608059 (4) Atrial fibrillation Current Visit: Yes Status: Acute Code(s): I48.91 - UNSPECIFIED ATRIAL FIBRILLATION SNOMED Code(s): 25946638 Plan: 1. Continue symptomatic and supportive care 2. Daily CMP 3. Continue medical management 4. Avoid hepatotoxic medications 5. Gallbladder ultrasound reviewed 6. Acute hepatitis panel nonreactive Thank you for this consultation, we will continue to follow. Dr. Rose Gutierrez I agree with the dictator's note, documented as a scribe by Esthela Agudelo.
[2022-10-30 15:27] LABS: ALT 930 U/L (4-34)
[2022-10-30] MEDS ORDERED: Potassium Replacement Protocol 1 EACH MISC MISCELLANE PRN (15:37)
--- NOTE | 2022-10-30 15:50 | P.PN ---
Subjective Progress Note Date: 10/30/22 Principal diagnosis: Peripheral arterial disease Patient seen and examined today as a follow-up for peripheral arterial disease. Patient with continued discomfort in bilateral feet. Continued discoloration in bilateral feet. She denies any acute changes. Denies any shortness of breath or chest pain, no abdominal pain, nausea vomiting. She's been afebrile. She is up in the recliner. Objective - Vital Signs Vital signs: Vital Signs Temp 98 F 10/30/22 11:29 Pulse 106 H 10/30/22 11:29 Resp 20 10/30/22 11:29 BP 111/56 10/30/22 11:29 Pulse Ox 99 10/30/22 11:29 FiO2 Intake & Output 10/29/22 10/30/22 10/30/22 18:59 06:59 18:59 Intake Total 1320 43.589 438.011 Output Total 900 800 300 Balance 420 -756.411 138.011 Weight 39.916 kg Intake: Intake, IV Titration 43.589 120.011 Amount Heparin Sod,Pork in 0.45% 43.589 120.011 NaCl 25,000 unit In 0.45 % NaCl 1 250ml.bag @ 18 UNITS/KG/HR 7.185 mls/hr IV .Q24H [facility] Rx#: [id number] Oral 1320 318 Output: Urine 900 800 300 Other: Voiding Method External Catheter External Catheter External Catheter # Voids 2 1 # Bowel Movements 0 - Exam General appearance: The patient is alert, oriented, appears in no acute distress. HET: Head is normocephalic and atraumatic. Conjunctiva pink. Sclera anicteric. Neck: Supple without lymphadenopathy. Abdomen: Soft, nontender, nondistended with bowel sounds. No guarding or rigidity. Extremities: Bilateral lower extremity edema, scaly skin, bilateral midfoot and toes with purple discoloration. Nonpalpable pulses. Skin: No rashes, no jaundice Neurological: No focal deficits. Alert and oriented. - Labs CBC & Chem 7: 10/30/22 14:29 10/29/22 10:00 Labs: Abnormal Lab Results - Last 24 Hours (Table) 10/29/22 10/30/22 10/30/22 Range/Units 22:45 14:29 14:29 WBC 10.7 H (3.8-10.6) k/uL RBC 3.73 L (3.80-5.40) m/uL MCV 102.9 H (80.0-100.0) fL RDW 15.8 H (11.5-15.5) % Plt Count 106 L (150-450) k/uL APTT 32.2 H 41.9 H (22.0-30.0) sec Microbiology - Last 24 Hours (Table) 10/28/22 10:43 Blood Culture - Preliminary Blood No Growth after 48 hours Assessment and Plan Assessment: 1. Bilateral feet with cyanotic changes 2. Chronic peripheral arterial disease with occlusion of right internal iliac artery stent 3. Chronic lower extremity wounds 3. History of bilateral iliac stents 4. Weakness 5. Acute kidney injury 6. Acute hepatitis 7. Atrial fibrillation 8. History of TIA Plan: 1. Continue symptomatic and supportive care 2. CT angiogram aorta/abdomen with runoff ordered and reviewed by Dr. Tadeo 3. Continue heparin drip for now 4. Heart healthy diet 5. Continue local wound care 6. Discussed smoking cessation 7. No plans on vascular surgical intervention at this time. Patient to follow-up with Dr. Tadeo upon discharge. Thank you for this consultation, we will continue to follow. The impression and plan of care has been dictated as directed. I performed a history and examination of this patient, discussed the same with the dictator. I agree with the dictator's note ,documented as a scribe. Any additional findings or plans will be noted.
[2022-10-30] MEDS: POTASSIUM CHLORIDE ER 20 MEQ TAB.ER PO SCH ×4 (15:58→18:46)
--- NOTE | 2022-10-30 19:28 | US ---
EXAMINATION TYPE: US arterial LE single level DATE OF EXAM: 10/29/2022 4:04 PM CLINICAL HISTORY: chronic PAD, cyanotic toes. History of: Smoker: Current Smoker Hypertension: Yes Diabetic: No Hyperlipidemia: Yes TIA/CVA: Yes Previous Vascular Surgery: Yes CAD: Yes ID: Yes Gangrene: Cyanotic toes/feet bilaterally Doppler Waveforms: Right: No waveforms visualized Left: MANAGER PROCESS EXCELLENCE only, monophasic Digits Waveforms: Right: No waveforms visualized Left: No waveform on 1st digit, patient declined remainder of exam. Right Brachial Pressure: No waveforms available to obtain bp. Left Brachial Pressure: Attempted to obtain a bp on MANAGER PROCESS EXCELLENCE, patient could not tolerate. Ankle-Brachial Indices: Right: N/A Left: N/A Toe Brachial Indices: Right: N/A Left: N/A IMPRESSION: Nondiagnostic study.
[2022-10-30] MEDS: GABAPENTIN 100 MG CAP PO SCH (20:25)
--- NOTE | 2022-10-30 21:40 | P.PN ---
Subjective Progress Note Date: 10/30/22 77-year-old pleasant female with a history of COPD continues to smoke. 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 Patient is also found a highly elevated AST and ALT AST being 2900 and ALP being 2100 and patient does have some edema of the abdominal wall chest x-ray did not show any significant abnormality but BNP is elevated to 22,000 and patient has history of heart failure with EF of around 45%. RVSP is not known. Patient is an creatinine is around 0.8 present creatinine is 1.5 to INR is 2.2 and patient is on eliquis. Does have history of atrial fibrillation. Presently no evidence of GI bleed at this time. Patient does have history of cerebrovascular disease follows up with gastro-surgery as an outpatient patient has significant cyanosis of bilateral lower extremity. Patient does have leukocytosis without any fever. Does have an ulcer in the right lower extremity below the midshin area. 10/29/2022 Patient is seen and evaluated in follow-up this morning with multiple consultations following including vascular surgery, cardiology, GI, and wound care. Patient was continued on IV Lasix and diuresed well as patient reports she has been urinating frequently and will transition to oral Lasix. Vascular surgery following as well and eliquis currently on hold and awaiting further testing. Venous Doppler was ordered along with 2-D echo. Patient was on IV Cardizem for atrial fibrillation and recommend telemetry monitoring and adjustments to medications have been done. Patient was evaluated by GI service for significantly elevated LFTs and recommend holding hepatotoxic medications and will discontinue statin for now and awaiting hepatitis panel. No plans for endoscopic intervention at this time and will follow-up with repeat labs. Patient also with significant weakness and would recommend physical therapy evaluation and would recommend daily. Patient is refusing any form of rehab and will be going home once stabilized discharged from consultations. Patient is currently afebrile with no reports of worsening shortness of breath and denies chest pain. Patient denies palpitations at this time just feels generally weak and fatigued. Patient is chronically wearing oxygen and is maintained on 2 L cu rrently. 10/30/2022 Patient is seen in follow-up this morning with multiple medical consultations following with vascular surgery ordering a CT angiogram with runoff as patient continues to have significant discoloration of her lower extremities. Patient is maintained on IV heparin and oral anticoagulation is on hold. GI also following and liver functions trending down most likely hepatic congestion medication induced. Patient continues with weakness with physical therapy following recommending rehab although patient is adamant she is returning home. Patient continues to report pain of the lower extremities and difficulty with ambulation. Will discuss further with consultations about treatment plan moving forward. Patient is currently afebrile with no reports of chest pain or worse con shortness of breath. No nausea or vomiting noted and patient is tolerating diet. Review of systems: Constitutional: reports of fatigue, no fever, or chills Cardiovascular: No reports of chest pain or palpitations Respiratory: No reports of worsening shortness of breath or cough GI: No reports of nausea, vomiting, or diarrhea : No reports of dysuria or retention Neurovascular: reports of generalized weakness and also reports her discoloration of her lower extremities have been ongoing for the last few months , reports continued pain of the lower extremities All medications have been reviewed Active Medications Albuterol Sulfate (Albuterol Nebulized 2.5 Mg/3 Ml) 2.5 mg INHALATION RT-QID [facility] Last Admin: 10/30/22 20:30 Dose: 2.5 mg Albuterol Sulfate (Albuterol Nebulized 2.5 Mg/3 Ml) 2.5 mg INHALATION RT-QID PRN PRN Reason: Shortness Of Breath Or Wheezing Budesonide/Formoterol Fumarate (Symbicort 80-4.5 Mcg Inhaler) 2 puff INHALATION RT-BID [facility] Last Admin: 10/30/22 20:30 Dose: 2 puff Collagenase (Collagenase 250 Unit/Gm Ointment 30 Gm Tube) 1 applic TOPICAL DAILY [facility]; Protocol Last Admin: 10/30/22 12:26 Dose: 1 applic Diphenhydramine HCl (Diphenhydramine 25 Mg Cap) 25 mg PO QID PRN PRN Reason: Itching Last Admin: 10/30/22 15:18 Dose: 25 mg Escitalopram Oxalate (Escitalopram 20 Mg Tab) 20 mg PO DAILY [facility] Last Admin: 10/30/22 09:03 Dose: 20 mg Furosemide (Furosemide 40 Mg Tab) 40 mg PO BID@0900,1600 [facility] Last Admin: 10/30/22 16:52 Dose: 40 mg Gabapentin (Gabapentin 100 Mg Cap) 100 mg PO HS [facility] Last Admin: 10/30/22 20:25 Dose: 100 mg Heparin Sodium (Porcine) (Heparin Sodium 1,000 Un/Ml (10ml Vl)) 0 unit IV PER PROTOCOL PRN; Protocol PRN Reason: Low PTT Last Admin: 10/30/22 15:14 Dose: 1,596 unit Hydromorphone HCl (Hydromorphone 0.5 Mg/0.5 Ml Syringe) 0.5 mg IVP Q4HR PRN PRN Reason: Pain Last Admin: 10/30/22 06:03 Dose: 0.5 mg Heparin Sodium/Sodium Chloride (25,000 unit/ Sodium Chloride) 250 mls @ 7.185 mls/hr IV .Q24H [facility]; Protocol Last Titration: 10/30/22 15:10 Dose: 22 units/kg/hr, 8.782 mls/hr Ipratropium [place] (Ipratropium 0.5 Mg/2.5 Ml Nebu) 0.5 mg INHALATION RT-QID [facility] Last Admin: 10/30/22 20:30 Dose: 0.5 mg Ipratropium [place] (Ipratropium 0.5 Mg/2.5 Ml Nebu) 0.5 mg INHALATION RT-QID PRN PRN Reason: Shortness Of Breath Or Wheezing Metoprolol Tartrate (Metoprolol Tartrate 50 Mg Tab) 50 mg PO BID [facility] Last Admin: 10/30/22 20:25 Dose: 50 mg Miscellaneous Information (Potassium Replacement Protocol 1 Each Misc) 1 each MISCELLANE DAILY PRN; Protocol PRN Reason: Per Protocol Naloxone HCl (Naloxone 0.4 Mg/Ml 1 Ml Vial) 0.2 mg IV Q2M PRN PRN Reason: Opioid Reversal Nitroglycerin (Nitroglycerin Sl Tabs 0.4 Mg Tab) 0.4 mg SUBLINGUAL Q5M PRN PRN Reason: Chest Pain Tramadol HCl (Tramadol 50 Mg Tab) 50 mg PO Q6H PRN PRN Reason: Pain Last Admin: 10/30/22 20:25 Dose: 50 mg PHYSICAL EXAMINATION: GENERAL: The patient is alert and oriented x3, not in any acute distress. Elderly appearing female Thin built HEENT: Pupils are round and equally reacting to light. EOMI. No scleral icterus. No conjunctival pallor. Normocephalic, atraumatic. No pharyngeal erythema. No thyromegaly. CARDIOVASCULAR: S1 and S2 present. No murmurs, rubs, or gallops. PULMONARY: Chest is clear to auscultation, no wheezing or crackles. Faint Expiratory wheezing ABDOMEN: Soft, nontender, nondistended, normoactive bowel sounds. No palpable organomegaly. MUSCULOSKELETAL: No joint swelling or deformity. EXTREMITIES: No clubbing, or pedal edema. NEUROLOGICAL: Gross neurological examination did not reveal any focal deficits. SKIN: Cyanosis of bilateral lower extremities extending up to the mid foot area and an right healing ulcer on the anterior aspect of the right midshin Assessment: -Acute on chronic hypoxic and hypercapnic respiratory failure secondary to severe COPD exacerbation, patient does have CHF as well patient does use 3 L of oxygen at home patient continued on inhaled steroids and inhalational treatments. -Congestive heart failure chronic systolic dysfunction with acute exacerbation -Acute on chronic hypoxic respiratory failure and chronically wears 2-3 L outpatient -Transaminitis: Secondary to hepatic congestion, trending down -Mild troponin elevation secondary to CHF -Acute renal failure, prerenal azotemia secondary to congestive heart failure, improving -Leukocytosis reactive in nature -Atrial fibrillation paroxysmal presently rate controlled -Coagulopathy elevated INR of 2.2 probably can be resumed tomorrow at a low dose considering renal dysfunction -COPD with acute exacerbation -Continued ongoing nicotine dependence -Hyperlipidemia -Hypertension -Severe peripheral vascular disease with the cyanosis of bilateral lower extremities -Coronary artery disease with stents in the past and CABG in the past -DVT prophylaxis: Patient is anticoagulated of coagulopathy and hepatic congestion -GI prophylaxis -Full code Plan: Recommend to continue with current medications and management with multiple consultations following. Cardiology following and will continue on telemetry monitoring and adjustments to medications being done Patient being followed by vascular surgery and randell Currently on hold and an to undergo CT angiogram with runoff and is now maintained on IV heparin drip Encourage small frequent meals and increased activity as tolerated Would recommend physical therapy evaluation daily although patient is adamant she is returning home and was refusing to go to rehab Will follow-up with vascular surgery in regards to treatment plan as well as anticoagulation Will follow-up with repeat labs and continue to monitor closely The impression and plan of care has been dictated by Valeri Fritz, Nurse Practitioner as directed. Dr. Kacey MD I have performed a history and examination and MDM of this patient, discussed the same with the dictator, and agree with the dictator's assessment and plan as written ,documented as a scribe. Based on total visit time, I have performed more than 50% of the visit. Objective - Vital Signs Vital signs: Vital Signs Temp 98 F 10/30/22 20:25 Pulse 60 10/30/22 20:41 Resp 18 10/30/22 20:25 BP 132/59 10/30/22 20:25 Pulse Ox 97 10/30/22 20:25 FiO2 Intake & Output 10/30/22 10/30/22 10/31/22 06:59 18:59 06:59 Intake Total 43.589 836.971 Output Total 800 500 Balance -756.411 336.971 Intake: IV 98.96 Heparin Sod,Pork in 0.45% 98.96 NaCl 25,000 unit In 0.45 % NaCl 1 250ml.bag @ 18 UNITS/KG/HR 7.185 mls/hr IV .Q24H [facility] Rx#: [id number] Intake, IV Titration 43.589 120.011 Amount Heparin Sod,Pork in 0.45% 43.589 120.011 NaCl 25,000 unit In 0.45 % NaCl 1 250ml.bag @ 18 UNITS/KG/HR 7.185 mls/hr IV .Q24H [facility] Rx#: [id number] Oral 618 Output: Urine 800 500 Other: Voiding Method External Catheter External Catheter External Catheter # Voids 1 - Labs CBC & Chem 7: 10/30/22 14:29 10/30/22 14:29 Labs: Abnormal Lab Results - Last 24 Hours (Table) 10/29/22 10/30/22 10/30/22 Range/Units 22:45 14:29 14:29 WBC 10.7 H (3.8-10.6) k/uL RBC 3.73 L (3.80-5.40) m/uL MCV 102.9 H (80.0-100.0) fL RDW 15.8 H (11.5-15.5) % Plt Count 106 L (150-450) k/uL APTT 32.2 H 41.9 H (22.0-30.0) sec Potassium (3.5-5.1) mmol/L Chloride (98-107) mmol/L Carbon Dioxide (22-30) mmol/L BUN (7-17) mg/dL Glucose (74-99) mg/dL Calcium (8.4-10.2) mg/dL Total Bilirubin (0.2-1.3) mg/dL AST (14-36) U/L ALT (4-34) U/L Alkaline Phosphatase (38-126) U/L Creatine Kinase (30-135) U/L Total Protein (6.3-8.2) g/dL Albumin (3.5-5.0) g/dL 10/30/22 Range/Units 14:29 WBC (3.8-10.6) k/uL RBC (3.80-5.40) m/uL MCV (80.0-100.0) fL RDW (11.5-15.5) % Plt Count (150-450) k/uL APTT (22.0-30.0) sec Potassium 2.8 L (3.5-5.1) mmol/L Chloride 94 L (98-107) mmol/L Carbon Dioxide 36 H (22-30) mmol/L BUN 26 H (7-17) mg/dL Glucose 137 H (74-99) mg/dL Calcium 7.8 L (8.4-10.2) mg/dL Total Bilirubin 1.9 H (0.2-1.3) mg/dL AST 517 H (14-36) U/L ALT 930 H (4-34) U/L Alkaline Phosphatase 134 H (38-126) U/L Creatine Kinase 538 H (30-135) U/L Total Protein 5.8 L (6.3-8.2) g/dL Albumin 3.1 L (3.5-5.0) g/dL Microbiology - Last 24 Hours (Table) 10/28/22 10:43 Blood Culture - Preliminary Blood No Growth after 48 hours
[2022-10-30] MEDS ORDERED: POTASSIUM CHLORIDE ER 20 MEQ TAB.ER PO STA (21:42)
[2022-10-30] MEDS: HEPARIN SOD,PORK IN 0.45% NACL 25,000 UNIT in 0.45% NACL 1 250ML.BAG IV SCH (22:52)
[2022-10-31] MEDS: traMADol 50 MG TAB PO PRN ×2 (03:41→16:27)
[2022-10-31 06:17] LABS: Basophils % (A) 0 %; Eosinophils % (A) 0 %; HCT 36.6 % (34.0-46.0); HGB 11.8 gm/dL (11.4-16.0); Hypochromasia Moderate; Lymphocytes # (A) 1.6 k/uL (1.0-4.8); Lymphocytes % (A) 15 %; MCH 32.3 pg (25.0-35.0); MCHC 32.1 g/dL (31.0-37.0); MCV 100.5 fL (80.0-100.0); Macrocytosis Slight; Mean Platelet Volume 9.9; Monocytes # (A) 0.8 k/uL (0-1.0); Monocytes % (A) 8 %; Neutrophils # (A) 7.9 k/uL (1.3-7.7); Neutrophils % (A) 76 %; Platelet Count 110 k/uL (150-450); Poikilocytosis Slight; RBC 3.65 m/uL (3.80-5.40); RDW 15.8 % (11.5-15.5); WBC 10.4 k/uL (3.8-10.6)
[2022-10-31 06:20] LABS: INR 1.4 (<1.2); Partial Thromboplastin Time 71.3 sec (22.0-30.0); Prothrombin Time 14.1 sec (9.0-12.0)
[2022-10-31 06:21] LABS: Calcium 7.9 mg/dL (8.4-10.2); Potassium 4.9 mmol/L (3.5-5.1)
[2022-10-31] MEDS: IPRATROPIUM 0.5 MG/2.5 ML NEBU INHALATION SCH ×3 (07:57→15:28)
[2022-10-31] MEDS: ALBUTEROL NEBULIZED 2.5 MG/3 ML INHALATION SCH ×3 (07:57→15:29)
[2022-10-31] MEDS: SYMBICORT 80-4.5 MCG INHALER INHALATION SCH (07:57)
[2022-10-31] MEDS: ESCITALOPRAM 20 MG TAB PO SCH (08:45)
[2022-10-31] MEDS: FUROSEMIDE 40 MG TAB PO SCH ×2 (08:45→16:24)
[2022-10-31] MEDS: METOPROLOL TARTRATE 50 MG TAB PO SCH (08:45)
[2022-10-31] MEDS: HYDROmorphone 0.5 MG/0.5 ML SYRINGE IVP PRN (08:46)
[2022-10-31] MEDS ORDERED: POTASSIUM CHLORIDE ER 20 MEQ TAB.ER PO SCH (09:00)
[2022-10-31] MEDS ORDERED: APIXABAN 5 MG TAB PO SCH (09:00)
[2022-10-31 09:24] LABS: Total Bilirubin 1.8 mg/dL (0.2-1.3)
[2022-10-31] MEDS: COLLAGENASE 250 UNIT/GM OINTMENT 30 GM TUBE TOPICAL SCH (12:18)
--- NOTE | 2022-10-31 13:01 | P.PN ---
Subjective Progress Note Date: 10/31/22 HISTORY OF PRESENT ILLNESS: This is a 77-year-old female with history of coronary artery disease with previous CABG, ischemic cardiomyopathy, history of left ventricular thrombus, peripheral arterial disease, hypertension, hyperlipidemia, and paroxysmal atrial fibrillation. Patient is admitted to the hospital secondary to acute renal failure and transaminitis. Patient was in atrial fibrillation with RVR last night. She was started on IV Cardizem and this morning she is maintaining sinus mechanism. However shortly after she was evaluated by cardiology this morning, patient back into atrial fibrillation with controlled ventricular rates in the 80s. Her IV Cardizem has been discontinued. She remains on metoprolol tartrate. 10/30/2022 Patient examined this morning. She is sitting in the chair. She denies chest pain or pressure. She denies shortness of breath. Telemetry reveals atrial flutter with a heart rate in the 20s. The patient was seen by vascular surgery yesterday and remains on a heparin drip. Her Eliquis remains on hold. Echocardiogram completed revealing ejection fraction of 35-40%, moderate MR, mild pulmonary hypertension. 10/31/2022 Patient examined this morning. She is sitting up in the chair. She denies chest pain or pressure. She denies shortness of breath. Telemetry reveals sinus mechanism with PACs. She has been resumed on her anticoagulation this morning. PHYSICAL EXAM: VITAL SIGNS: Reviewed. GENERAL: Well-developed in no acute distress. NECK: Supple. No JVD or thyromegaly LUNGS: Respirations even and unlabored. Lungs diminished to auscultation bilaterally. HEART: Regular rate and rhythm. S1 and S2 heard. + systolic murmur. EXTREMITIES: Normal range of motion. No clubbing or cyanosis. Patient with necrosis noted to left foot (Vascular following) ASSESSMENT: Acute renal failure Abnormal troponin, secondary to above, ACS ruled out Transaminitis Coagulopathy Paroxysmal atrial fibrillation/typical aflutter with RVR Coronary artery disease with previous CABG Ischemic cardiomyopathy Peripheral arterial disease Hypertension Hyperlipidemia History of congestive heart failure PLAN: Continue current cardiac medications Eliquis resumed this morning Patient stable from a cardiac perspective Further recommendations pending patient course Nurse practitioner note has been reviewed by physician. Signing provider agrees with the documented findings, assessment, and plan of care. Objective - Vital Signs Vital signs: Vital Signs Temp 98.4 F 10/31/22 11:52 Pulse 67 10/31/22 11:52 Resp 18 10/31/22 11:52 BP 119/67 10/31/22 11:52 Pulse Ox 96 10/31/22 11:52 FiO2 Intake & Output 10/30/22 10/31/22 10/31/22 18:59 06:59 18:59 Intake Total 836.971 67.621 360 Output Total 500 200 300 Balance 336.971 -132.379 60 Intake: IV 98.96 Heparin Sod,Pork in 0.45% 98.96 NaCl 25,000 unit In 0.45 % NaCl 1 250ml.bag @ 18 UNITS/KG/HR 7.185 mls/hr IV .Q24H [facility] Rx#: [id number] Intake, IV Titration 120.011 67.621 Amount Heparin Sod,Pork in 0.45% 120.011 67.621 NaCl 25,000 unit In 0.45 % NaCl 1 250ml.bag @ 18 UNITS/KG/HR 7.185 mls/hr IV .Q24H [facility] Rx#: [id number] Oral 618 360 Output: Urine 500 200 300 Other: Voiding Method External Catheter External Catheter External Catheter - Labs CBC & Chem 7: 10/31/22 05:19 10/31/22 05:19 Labs: Abnormal Lab Results - Last 24 Hours (Table) 10/30/22 10/30/22 10/30/22 Range/Units 14:29 14:29 14:29 WBC 10.7 H (3.8-10.6) k/uL RBC 3.73 L (3.80-5.40) m/uL MCV 102.9 H (80.0-100.0) fL RDW 15.8 H (11.5-15.5) % Plt Count 106 L (150-450) k/uL Neutrophils # (1.3-7.7) k/uL PT (9.0-12.0) sec INR (<1.2) APTT 41.9 H (22.0-30.0) sec Sodium (137-145) mmol/L Potassium 2.8 L (3.5-5.1) mmol/L Chloride 94 L (98-107) mmol/L Carbon Dioxide 36 H (22-30) mmol/L BUN 26 H (7-17) mg/dL Glucose 137 H (74-99) mg/dL Calcium 7.8 L (8.4-10.2) mg/dL Total Bilirubin 1.9 H (0.2-1.3) mg/dL AST 517 H (14-36) U/L ALT 930 H (4-34) U/L Alkaline Phosphatase 134 H (38-126) U/L Creatine Kinase 538 H (30-135) U/L Total Protein 5.8 L (6.3-8.2) g/dL Albumin 3.1 L (3.5-5.0) g/dL 10/30/22 10/31/22 10/31/22 Range/Units 21:36 05:19 05:19 WBC (3.8-10.6) k/uL RBC 3.65 L (3.80-5.40) m/uL MCV 100.5 H (80.0-100.0) fL RDW 15.8 H (11.5-15.5) % Plt Count 110 L (150-450) k/uL Neutrophils # 7.9 H (1.3-7.7) k/uL PT 14.1 H (9.0-12.0) sec INR 1.4 H (<1.2) APTT 48.6 H 71.3 H (22.0-30.0) sec Sodium (137-145) mmol/L Potassium (3.5-5.1) mmol/L Chloride (98-107) mmol/L Carbon Dioxide (22-30) mmol/L BUN (7-17) mg/dL Glucose (74-99) mg/dL Calcium (8.4-10.2) mg/dL Total Bilirubin (0.2-1.3) mg/dL AST (14-36) U/L ALT (4-34) U/L Alkaline Phosphatase (38-126) U/L Creatine Kinase (30-135) U/L Total Protein (6.3-8.2) g/dL Albumin (3.5-5.0) g/dL 10/31/22 10/31/22 Range/Units 05:19 05:19 WBC (3.8-10.6) k/uL RBC (3.80-5.40) m/uL MCV (80.0-100.0) fL RDW (11.5-15.5) % Plt Count (150-450) k/uL Neutrophils # (1.3-7.7) k/uL PT (9.0-12.0) sec INR (<1.2) APTT (22.0-30.0) sec Sodium 136 L (137-145) mmol/L Potassium (3.5-5.1) mmol/L Chloride (98-107) mmol/L Carbon Dioxide 32 H (22-30) mmol/L BUN 27 H (7-17) mg/dL Glucose 100 H (74-99) mg/dL Calcium 7.9 L (8.4-10.2) mg/dL Total Bilirubin 1.8 H (0.2-1.3) mg/dL AST 395 H (14-36) U/L ALT 858 H (4-34) U/L Alkaline Phosphatase 133 H (38-126) U/L Creatine Kinase (30-135) U/L Total Protein (6.3-8.2) g/dL Albumin (3.5-5.0) g/dL Microbiology - Last 24 Hours (Table) 10/28/22 10:43 Blood Culture - Preliminary Blood No Growth after 48 hours
--- NOTE | 2022-10-31 13:33 | P.PN ---
Subjective Progress Note Date: 10/31/22 (Vascular) Principal diagnosis: Peripheral arterial disease Should seen and examined sitting up at the bedside chair. No acute changes through the night. Patient is able move bilateral feet and toes. Still has pain in bilateral feet. Denies any chest pain or shortness of breath. She has been afebrile. Objective - Vital Signs Vital signs: Vital Signs Temp 98 F 10/30/22 20:25 Pulse 70 10/31/22 03:38 Resp 17 10/31/22 03:38 BP 121/66 10/31/22 03:38 Pulse Ox 97 10/31/22 03:38 FiO2 Intake & Output 10/30/22 10/31/22 10/31/22 18:59 06:59 18:59 Intake Total 836.971 67.621 Output Total 500 200 Balance 336.971 -132.379 Intake: IV 98.96 Heparin Sod,Pork in 0.45% 98.96 NaCl 25,000 unit In 0.45 % NaCl 1 250ml.bag @ 18 UNITS/KG/HR 7.185 mls/hr IV .Q24H [facility] Rx#: [id number] Intake, IV Titration 120.011 67.621 Amount Heparin Sod,Pork in 0.45% 120.011 67.621 NaCl 25,000 unit In 0.45 % NaCl 1 250ml.bag @ 18 UNITS/KG/HR 7.185 mls/hr IV .Q24H [facility] Rx#: [id number] Oral 618 Output: Urine 500 200 Other: Voiding Method External Catheter External Catheter - Exam General appearance: The patient is alert, oriented, appears in no acute distress. HET: Head is normocephalic and atraumatic. Conjunctiva pink. Sclera anicteric. Neck: Supple without lymphadenopathy. Abdomen: Soft, nontender, nondistended with bowel sounds. No guarding or rigidity. Extremities: Bilateral lower extremity edema, scaly skin, bilateral midfoot and toes with purple discoloration. Nonpalpable pulses. Skin: No rashes, no jaundice Neurological: No focal deficits. Alert and oriented. - Labs CBC & Chem 7: 10/31/22 05:19 10/31/22 05:19 Labs: Abnormal Lab Results - Last 24 Hours (Table) 10/30/22 10/30/22 10/30/22 Range/Units 14:29 14:29 14:29 WBC 10.7 H (3.8-10.6) k/uL RBC 3.73 L (3.80-5.40) m/uL MCV 102.9 H (80.0-100.0) fL RDW 15.8 H (11.5-15.5) % Plt Count 106 L (150-450) k/uL Neutrophils # (1.3-7.7) k/uL PT (9.0-12.0) sec INR (<1.2) APTT 41.9 H (22.0-30.0) sec Sodium (137-145) mmol/L Potassium 2.8 L (3.5-5.1) mmol/L Chloride 94 L (98-107) mmol/L Carbon Dioxide 36 H (22-30) mmol/L BUN 26 H (7-17) mg/dL Glucose 137 H (74-99) mg/dL Calcium 7.8 L (8.4-10.2) mg/dL Total Bilirubin 1.9 H (0.2-1.3) mg/dL AST 517 H (14-36) U/L ALT 930 H (4-34) U/L Alkaline Phosphatase 134 H (38-126) U/L Creatine Kinase 538 H (30-135) U/L Total Protein 5.8 L (6.3-8.2) g/dL Albumin 3.1 L (3.5-5.0) g/dL 10/30/22 10/31/22 10/31/22 Range/Units 21:36 05:19 05:19 WBC (3.8-10.6) k/uL RBC 3.65 L (3.80-5.40) m/uL MCV 100.5 H (80.0-100.0) fL RDW 15.8 H (11.5-15.5) % Plt Count 110 L (150-450) k/uL Neutrophils # 7.9 H (1.3-7.7) k/uL PT 14.1 H (9.0-12.0) sec INR 1.4 H (<1.2) APTT 48.6 H 71.3 H (22.0-30.0) sec Sodium (137-145) mmol/L Potassium (3.5-5.1) mmol/L Chloride (98-107) mmol/L Carbon Dioxide (22-30) mmol/L BUN (7-17) mg/dL Glucose (74-99) mg/dL Calcium (8.4-10.2) mg/dL Total Bilirubin (0.2-1.3) mg/dL AST (14-36) U/L ALT (4-34) U/L Alkaline Phosphatase (38-126) U/L Creatine Kinase (30-135) U/L Total Protein (6.3-8.2) g/dL Albumin (3.5-5.0) g/dL 10/31/22 Range/Units 05:19 WBC (3.8-10.6) k/uL RBC (3.80-5.40) m/uL MCV (80.0-100.0) fL RDW (11.5-15.5) % Plt Count (150-450) k/uL Neutrophils # (1.3-7.7) k/uL PT (9.0-12.0) sec INR (<1.2) APTT (22.0-30.0) sec Sodium 136 L (137-145) mmol/L Potassium (3.5-5.1) mmol/L Chloride (98-107) mmol/L Carbon Dioxide 32 H (22-30) mmol/L BUN 27 H (7-17) mg/dL Glucose 100 H (74-99) mg/dL Calcium 7.9 L (8.4-10.2) mg/dL Total Bilirubin (0.2-1.3) mg/dL AST (14-36) U/L ALT (4-34) U/L Alkaline Phosphatase (38-126) U/L Creatine Kinase (30-135) U/L Total Protein (6.3-8.2) g/dL Albumin (3.5-5.0) g/dL Microbiology - Last 24 Hours (Table) 10/28/22 10:43 Blood Culture - Preliminary Blood No Growth after 48 hours Assessment and Plan Assessment: 1. Bilateral feet with cyanotic changes 2. Chronic peripheral arterial disease with occlusion of right internal iliac a rtery stent 3. Chronic lower extremity wounds 3. History of bilateral iliac stents 4. Weakness 5. Acute kidney injury 6. Acute hepatitis 7. Atrial fibrillation 8. History of TIA Plan: 1. Continue symptomatic and supportive care 2. CT angiogram aorta/abdomen with runoff ordered and reviewed by Dr. Tadeo 3. Continue heparin drip for now 4. Heart healthy diet 5. Continue local wound care 6. Discussed smoking cessation 7. No plans on vascular surgical intervention at this time. Patient to follow- up with Dr. Tadeo upon discharge. Thank you for this consultation, patient is clear from vascular surgery for discharge. The impression and plan of care has been dictated as directed. Dr. Steele I performed a history and examination of this patient, discussed the same with the dictator. I agree with the dictator's note ,documented as a scribe. Any additional findings or plans will be noted.
--- NOTE | 2022-10-31 13:38 | P.PN ---
Subjective Progress Note Date: 10/31/22 (GI ) Principal diagnosis: Acute hepatitis Pleasant 77-year-old male who presented to the emergency department with complaints of weakness. Patient states that she has been having increased weakness, fatigue, decreased appetite and nausea over the last 5 days. She denies any fevers or chills. Denies any chest pain, has some chronic shortness of breath, no abdominal pain no vomiting. past medical history includes peripheral arterial disease, atrial fibrillation, coronary artery disease, heart failure, COPD, TIA, hyperlipidemia, hypertension, right breast cancer, nicotine dependence, and chronic left lower extremity wounds. The patient was noted to have elevated LFTs on admission. She also had elevated troponin as well as being hypertensive. Apparently patient may have been sleeping in her wheelchair at the table for 12 hours. She lives with 2 grandsons and a great- granddaughter. She had a CT of the abdomen and pelvis which reported liver size is stable within normal limits. Evidence of long-standing chronic medical renal disease. Moderate diffuse subcutaneous edema consistent with product of fluid overload state, no bowel obstruction. Gallstones are demonstrated. No definitive new acute findings seen. Patient denies any history of liver disease, no prior history of alcohol abuse. States that she has been on antibiotics, although she cannot recall which ones for chronic wounds to her left foot. Looking back at her last discharge summary on 09/17/2022 patient was discharged home on Augmentin for 10 days however patient completed that. Admitting labs WBC 15.2 hemoglobin 14 hematocrit 43 platelet count 157,000 INR 2.2 sodium 140 potassium 4.6 BUN 51 creatinine 1.5 total bilirubin 2.5 AST 2937 ALT 2113 alkaline phosphatase 181 ammonia less than 9 troponin 0.244 lipase 110 10/29/2022: Patient seen and examined today as a follow-up. She denies any abdominal pain, nausea, or vomiting. Does state that she was started on Lipitor for a history of TIA in the last few months. Also states she was started on Lexapro. Creatinine kinase was ordered yesterday and came back at 2824. Acetaminophen level less than 10. Today's labs WBC 10.5 hemoglobin 11.5 platelet count 107,000 INR 1.7 sodium 142 potassium 3.5 BUN 40, creatinine 0.9 glucose 128 total bilirubin 2.2, AST 834 ALT 1219 alkaline phosphatase 125. Gallbladder ultrasound reviewed reporting cholelithiasis with gallbladder wall thickening correlate for cholecystitis. However patient has had previous CT abdomen and pelvis with noted gallbladder stone and patient is asymptomatic. 10/30/2022: Patient seen and examined today as a follow-up. She denies any abdominal pain, nausea or vomiting. She has been afebrile. LFTs and repeat creatinine kinase are currently pending. Patient sitting up in a bedside chair, tolerating diet. No acute changes through the night. 10/31/2022: Patient seen and examined today as a follow-up. She states no acute changes. States she is feeling better overall. Kidney function continues to improve. He continued to trend down. Total bilirubin 1.8 AST 395 ALT 858 alkaline phosphatase 133. She denies any abdominal pain, nausea or vomiting. Objective - Vital Signs Vital signs: Vital Signs Temp 98 F 10/30/22 20:25 Pulse 70 10/31/22 03:38 Resp 17 10/31/22 03:38 BP 121/66 10/31/22 03:38 Pulse Ox 97 10/31/22 03:38 FiO2 Intake & Output 10/30/22 10/31/22 10/31/22 18:59 06:59 18:59 Intake Total 836.971 67.621 Output Total 500 200 Balance 336.971 -132.379 Intake: IV 98.96 Heparin Sod,Pork in 0.45% 98.96 NaCl 25,000 unit In 0.45 % NaCl 1 250ml.bag @ 18 UNITS/KG/HR 7.185 mls/hr IV .Q24H MARY ANNE Rx#: [id number] Intake, IV Titration 120.011 67.621 Amount Heparin Sod,Pork in 0.45% 120.011 67.621 NaCl 25,000 unit In 0.45 % NaCl 1 250ml.bag @ 18 UNITS/KG/HR 7.185 mls/hr IV .Q24H MARY ANNE Rx#: [id number] Oral 618 Output: Urine 500 200 Other: Voiding Method External Catheter External Catheter - Exam General appearance: The patient is alert, oriented, appears in no acute distress. HET: Head is normocephalic and atraumatic. Conjunctiva pink. Sclera anicteric. Neck: Supple without lymphadenopathy. Abdomen: Soft, nontender, nondistended with bowel sounds. No guarding or rigidity. Extremities: Bilateral feet with purple discoloration, scaly skin. No pedal edema Skin: No rashes, no jaundice. Neurological: No focal deficits. Alert and oriented. - Labs CBC & Chem 7: 10/31/22 05:19 10/31/22 05:19 Labs: Abnormal Lab Results - Last 24 Hours (Table) 10/30/22 10/30/22 10/30/22 Range/Units 14:29 14:29 14:29 WBC 10.7 H (3.8-10.6) k/uL RBC 3.73 L (3.80-5.40) m/uL MCV 102.9 H (80.0-100.0) fL RDW 15.8 H (11.5-15.5) % Plt Count 106 L (150-450) k/uL Neutrophils # (1.3-7.7) k/uL PT (9.0-12.0) sec INR (<1.2) APTT 41.9 H (22.0-30.0) sec Sodium (137-145) mmol/L Potassium 2.8 L (3.5-5.1) mmol/L Chloride 94 L (98-107) mmol/L Carbon Dioxide 36 H (22-30) mmol/L BUN 26 H (7-17) mg/dL Glucose 137 H (74-99) mg/dL Calcium 7.8 L (8.4-10.2) mg/dL Total Bilirubin 1.9 H (0.2-1.3) mg/dL AST 517 H (14-36) U/L ALT 930 H (4-34) U/L Alkaline Phosphatase 134 H (38-126) U/L Creatine Kinase 538 H (30-135) U/L Total Protein 5.8 L (6.3-8.2) g/dL Albumin 3.1 L (3.5-5.0) g/dL 10/30/22 10/31/22 10/31/22 Range/Units 21:36 05:19 05:19 WBC (3.8-10.6) k/uL RBC 3.65 L (3.80-5.40) m/uL MCV 100.5 H (80.0-100.0) fL RDW 15.8 H (11.5-15.5) % Plt Count 110 L (150-450) k/uL Neutrophils # 7.9 H (1.3-7.7) k/uL PT 14.1 H (9.0-12.0) sec INR 1.4 H (<1.2) APTT 48.6 H 71.3 H (22.0-30.0) sec Sodium (137-145) mmol/L Potassium (3.5-5.1) mmol/L Chloride (98-107) mmol/L Carbon Dioxide (22-30) mmol/L BUN (7-17) mg/dL Glucose (74-99) mg/dL Calcium (8.4-10.2) mg/dL Total Bilirubin (0.2-1.3) mg/dL AST (14-36) U/L ALT (4-34) U/L Alkaline Phosphatase (38-126) U/L Creatine Kinase (30-135) U/L Total Protein (6.3-8.2) g/dL Albumin (3.5-5.0) g/dL 10/31/22 Range/Units 05:19 WBC (3.8-10.6) k/uL RBC (3.80-5.40) m/uL MCV (80.0-100.0) fL RDW (11.5-15.5) % Plt Count (150-450) k/uL Neutrophils # (1.3-7.7) k/uL PT (9.0-12.0) sec INR (<1.2) APTT (22.0-30.0) sec Sodium 136 L (137-145) mmol/L Potassium (3.5-5.1) mmol/L Chloride (98-107) mmol/L Carbon Dioxide 32 H (22-30) mmol/L BUN 27 H (7-17) mg/dL Glucose 100 H (74-99) mg/dL Calcium 7.9 L (8.4-10.2) mg/dL Total Bilirubin (0.2-1.3) mg/dL AST (14-36) U/L ALT (4-34) U/L Alkaline Phosphatase (38-126) U/L Creatine Kinase (30-135) U/L Total Protein (6.3-8.2) g/dL Albumin (3.5-5.0) g/dL Microbiology - Last 24 Hours (Table) 10/28/22 10:43 Blood Culture - Preliminary Blood No Growth after 48 hours Assessment and Plan (1) Acute hepatitis Narrative/Plan: 77-year-old female presented to emergency department with complaints of generalized weakness and increased fatigue. Patient has multiple comorbidities including coronary artery disease atrial fibrillation, congestive heart failure, peripheral arterial disease currently on Eliquis. Patient's initial labs showed elevated troponin, acute kidney injury with significantly elevated LFTs. No underlying history of liver disease, no previous history of alcohol abuse. Was recently on Augmentin at the end of August part of September. Patient was hypertensive on admission, tachycardic, afebrile. Unclear etiology of elevated LFTs, likely looking at possible ischemic hepatitis versus medication induced hepatitis. We will order acute hepatitis panel, gallbladder ultrasound, and acetaminophen level. L4 5 23: LFTs are trending down. Patient still denies any abdominal pain, nausea or vomiting. Creatinine kinase 2824, acute hepatitis could be related to rhabdomyolysis versus medication induced. However medication induced hepatitis favorable for high-dose atorvastatin 80 mg daily, recent antibiotic use, and recently started on Lexapro. Continue to hold hepatotoxic medications. Continue with medical management. Current Visit: Yes Status: Acute Code(s): B17.9 - ACUTE VIRAL HEPATITIS, UNSPECIFIED SNOMED Code(s): 21410574 (2) MARY (acute kidney injury) Current Visit: Yes Status: Acute Code(s): N17.9 - ACUTE KIDNEY FAILURE, UNSPECIFIED SNOMED Code(s): 74251213 (3) Atrial fibrillation Current Visit: Yes Status: Acute Code(s): I48.91 - UNSPECIFIED ATRIAL FIBRILLATION SNOMED Code(s): 39212984 (4) Peripheral arterial disease Current Visit: Yes Status: Acute Code(s): I73.9 - PERIPHERAL VASCULAR DISEASE, UNSPECIFIED SNOMED Code(s): 588861377 (5) Weakness Current Visit: Yes Status: Acute Code(s): R53.1 - WEAKNESS SNOMED Code(s): 52989207 Plan: 1. Continue symptomatic and supportive care 2. CMP reviewed, LFTs continue to improve 3. Continue medical management 4. Avoid hepatotoxic medications 5. Gallbladder ultrasound reviewed 6. Acute hepatitis panel nonreactive Thank you for this consultation, no further workup indicated. Patient cleared by gastroenterology for discharge. Follow-up in 1-2 weeks. We will sign off at this time. Dr. Rose Gutierrez I agree with the dictator's note, documented as a scribe by Esthela Agudelo.
[2022-10-31 17:10] VITALS: BP 144/69; PULSE 65; RESP 16; TEMP 97.5
--- NOTE | 2022-11-01 19:46 | P.DS ---
Providers Date of admission: 10/28/22 06:57 Expected date of discharge: 10/31/22 Attending physician: Quintin Elizondo Consults: 10/28/22 06:57 Consult Physician Routine Consulting Provider: Felecia Gutierrez Consult Reason/Comments: Acute hepatitis Do you want consulting provider notified?: Yes, Notify in am 10/28/22 06:59 Consult Physician Routine Consulting Provider: [facility] Consult Reason/Comments: CHF exas Do you want consulting provider notified?: Yes, Notify in am 10/28/22 12:11 Consult Physician Routine Consulting Provider: Tiesha Tadeo Consult Reason/Comments: Severe peripheral vascular disease Do you want consulting provider notified?: Yes Primary care physician: Sydnie Reynolds Hospital Course: Final diagnosis -Acute on chronic hypoxic and hypercapnic respiratory failure secondary to severe COPD exacerbation, patient does have CHF as well patient does use 3 L of oxygen at home -Congestive heart failure chronic systolic dysfunction with acute exacerbation -Acute on chronic hypoxic respiratory failure and chronically wears 2-3 L outpatient -Transaminitis: Secondary to hepatic congestion, trending down -Mild troponin elevation secondary to CHF -Acute renal failure, prerenal azotemia secondary to congestive heart failure, improving -Leukocytosis reactive in nature -Atrial fibrillation paroxysmal presently rate controlled -Coagulopathy elevated INR of 2.2 probably can be resumed tomorrow at a low dose considering renal dysfunction -COPD with acute exacerbation -Continued ongoing nicotine dependence -Hyperlipidemia -Hypertension -Severe peripheral vascular disease with the cyanosis of bilateral lower extremities -Coronary artery disease with stents in the past and CABG in the past -DVT prophylaxis: Patient is anticoagulated of coagulopathy and hepatic congestion -GI prophylaxis -Full code Discharge disposition Patient is being discharged in a stable condition with guarded prognosis to home with home care. Patient will follow-up with Dr. Reynolds in the outpatient setting upon discharge. Patient is to continue current medication regimen and continue to hold statin therapy with close outpatient follow-up with cardiology as scheduled. Patient also follow-up with vascular surgery outpatient. Total time taken is greater than 35 minutes. Hospital course This is a 77-year-old female who was recently admitted with shortness of breath with CHF exacerbation as well as hepatic congestion with transaminitis and being closely monitored. Patient also with significant severe peripheral vascular disease and managed by vascular surgery along with wound care in the outpatient setting. Patient was seen and evaluated underwent CT aNGiO with runoff with no plans for immediate intervention and has been placed back on anticoagulation and will need outpatient follow-up. Patient was seen and evaluated by GI with no plans for endoscopic intervention and will follow-up in the outpatient setting as well. Patient has been cleared by consultations with follow-up within the next 1 week. Please refer to consultation notes for further HPI. Patient reports to feeling improved and extremely anxious to go home. Currently no reports of chest pain, shortness of breath, or palpitations. Patient is afebrile. No reports of nausea or vomiting and patient is tolerating diet. Patient continues with weakness with physical therapy recommending rehab although patient is adamant she will not be going to rehab. Patient will continue with home care in the outpatient setting. Patient will be discharged home today. Extremely guarded prognosis as patient is high risk for readmissions given patient's significant multiple comorbidities. Patient instructed to follow-up with primary care provider as well as the outpatient setting. Physical exam: Gen: This is a 77-year-old female who is awake, alert and oriented 3, thin built, elderly appearing HEENT: Head is atraumatic, normocephalic. Pupils equal, round. Sclerae is anicteric. NECK: Supple. No JVD. No lymphadenopathy. No thyromegaly. LUNGS: Diminished breath sounds bilaterally with scattered rhonchi noted No intercostal retractions. HEART: S1, S2 are muffled ABDOMEN: Soft. Bowel sounds are present. No masses. No tenderness. EXTREMITIES: No pedal edema. No calf tenderness. Significant cyanosis noted to bilateral lower extremities NEUROLOGICAL: Patient is awake, alert and oriented x3. Cranial nerves 2 through 12 are grossly intact. Diffusely weak Please refer to medication reconciliation sheet for a list of medications. The impression and plan of care has been dictated by Valeri Fritz, Nurse Practitioner as directed. Dr. Mikhail MD I have performed a history and examination and MDM of this patient, discussed the same with the dictator, and agree with the dictator's assessment and plan as written ,documented as a scribe. Based on total visit time, I have performed more than 50% of the visit. Patient Condition at Discharge: Fair Plan - Discharge Summary Discharge Rx Participant: Yes New Discharge Prescriptions: New Metoprolol Tartrate [Lopressor] 50 mg PO BID #60 tab Albuterol Nebulized [Ventolin Nebulized] 2.5 mg INHALATION RT-QID ml Continue Apixaban [Eliquis] 5 mg PO BID #0 Fluticasone/Umeclidin/Vilanter [Trelegy Ellipta 100-62.5-25] 1 puff INHALATION RT-DAILY PRN PRN Reason: Shortness Of Breath Letrozole [Femara] 2.5 mg PO DAILY Furosemide [Lasix] 40 mg PO BID@0900,1600 #60 tab Gabapentin [Neurontin] 300 mg PO HS Acetaminophen Tab [Tylenol] 500 - 1,500 mg PO Q6H PRN PRN Reason: Pain Escitalopram [Lexapro] 20 mg PO DAILY Nitroglycerin Sl Tabs [Nitrostat] 0.4 mg SUBLINGUAL Q5M PRN PRN Reason: Chest Pain Potassium Chloride ER [K-Dur 20] 20 meq PO DAILY #30 tab Albuterol Sulfate [Ventolin HFA] 1 puff INHALATION RT-Q6H PRN PRN Reason: Shortness Of Breath ALPRAZolam [Xanax] 0.25 mg PO HS Collagenase [Santyl Ointment] 1 applic TOPICAL DAILY 30 Days #1 each traMADol HCL 50 mg PO HS PRN PRN Reason: Pain Discontinued Atorvastatin [Lipitor] 80 mg PO HS Metoprolol Tartrate [Lopressor] 75 mg PO BID lisinopriL [Zestril] 10 mg PO DAILY 30 Days #60 tab Discharge Medication List Apixaban [Eliquis] 5 mg PO BID #0 08/22/21 [Rx] Fluticasone/Umeclidin/Vilanter [Trelegy Ellipta 100-62.5-25] 1 puff INHALATION RT-DAILY PRN 11/01/21 [History] Letrozole [Femara] 2.5 mg PO DAILY 01/04/22 [History] Nitroglycerin Sl Tabs [Nitrostat] 0.4 mg SUBLINGUAL Q5M PRN 04/16/22 [History] Potassium Chloride ER [K-Dur 20] 20 meq PO DAILY #30 tab 07/17/22 [Rx] Furosemide [Lasix] 40 mg PO BID@0900,1600 #60 tab 08/06/22 [Rx] ALPRAZolam [Xanax] 0.25 mg PO HS 09/16/22 [History] Acetaminophen Tab [Tylenol] 500 - 1,500 mg PO Q6H PRN 09/16/22 [History] Albuterol Sulfate [Ventolin HFA] 1 puff INHALATION RT-Q6H PRN 09/16/22 [History] Gabapentin [Neurontin] 300 mg PO HS 09/16/22 [History] Collagenase [Santyl Ointment] 1 applic TOPICAL DAILY 30 Days #1 each 09/23/22 [Rx] Escitalopram [Lexapro] 20 mg PO DAILY 10/27/22 [History] traMADol HCL 50 mg PO HS PRN 10/27/22 [History] Albuterol Nebulized [Ventolin Nebulized] 2.5 mg INHALATION RT-QID ml 10/31/22 [Rx] Metoprolol Tartrate [Lopressor] 50 mg PO BID #60 tab 10/31/22 [Rx] Follow up Appointment(s)/Referral(s): [facility] [NON-STAFF] - Aakash Adame MD [STAFF PHYSICIAN] - 1 Week (November 19 3:30) Tiesha Tadeo DO [STAFF PHYSICIAN] - 1 Week (please call for appt time) [facility], [NON-STAFF] - Sydnie Reynolds MD [Primary Care Provider] - 1-2 days (office is closed today, ple ase call for appt time) Ambulatory/Diagnostic Orders: Complete Blood Count w/diff [LAB.AMB] Time Frame: 3 Days, Location: None Selected Patient Instructions/Handouts: Heart Failure (DC), Acute Kidney Injury (DC) Activity/Diet/Wound Care/Special Instructions: Activity Limited until follow-up Follow-up primary care provider on discharge Follow-up with vascular surgery and cardiology Continue taking medications as prescribed Continue holding statin therapy for now Follow-up repeat labs Follow-up with wound care center as scheduled Discharge/Stand Alone Forms: Who Do I Call?, Community Resources, Personal Operator Weapon Locating Radar Discharge Disposition: HOME WITH HOME HEALTH SERVICES
== END 2022-10-31 20:44 | disposition home health service (06) | DRG 291 ==
LOC: EC 20:50 → 3SCARD 10-28 06:57
PROVIDERS: ADMIT Hospitalist; ATTEND Hospitalist
DX: I11.0 Hypertensive heart disease with heart failure (principal); J96.21 Acute and chronic respiratory failure with hypoxia; J96.22 Acute and chronic respiratory failure with hypercapnia; T82.856A Stenosis of peripheral vascular stent, initial encounter; I70.261 Atherosclerosis of native arteries of extremities with gangrene, right leg; N17.9 Acute kidney failure, unspecified; D68.9 Coagulation defect, unspecified; I48.92 Unspecified atrial flutter; J44.1 Chronic obstructive pulmonary disease with (acute) exacerbation; L97.212 Non-pressure chronic ulcer of right calf with fat layer exposed; L97.429 Non-pressure chronic ulcer of left heel and midfoot with unspecified severity; L97.815 Non-pressure chronic ulcer of other part of right lower leg with muscle involvement without evidence of necrosis; B17.9 Acute viral hepatitis, unspecified; I50.22 Chronic systolic (congestive) heart failure; I27.20 Pulmonary hypertension, unspecified; E86.9 Volume depletion, unspecified; I95.9 Hypotension, unspecified; I70.222 Atherosclerosis of native arteries of extremities with rest pain, left leg; Z95.1 Presence of aortocoronary bypass graft; K76.1 Chronic passive congestion of liver; Z79.01 Long term (current) use of anticoagulants; Z95.820 Peripheral vascular angioplasty status with implants and grafts; I34.0 Nonrheumatic mitral (valve) insufficiency; G35 Multiple sclerosis; J44.9 Chronic obstructive pulmonary disease, unspecified; I34.1 Nonrheumatic mitral (valve) prolapse; F17.210 Nicotine dependence, cigarettes, uncomplicated; E78.5 Hyperlipidemia, unspecified; I48.0 Paroxysmal atrial fibrillation; I87.2 Venous insufficiency (chronic) (peripheral); G47.30 Sleep apnea, unspecified; R60.0 Localized edema; G62.9 Polyneuropathy, unspecified; I49.1 Atrial premature depolarization; K80.20 Calculus of gallbladder without cholecystitis without obstruction; R00.0 Tachycardia, unspecified; D72.828 Other elevated white blood cell count; I25.5 Ischemic cardiomyopathy; I67.9 Cerebrovascular disease, unspecified; I25.10 Atherosclerotic heart disease of native coronary artery without angina pectoris; R26.81 Unsteadiness on feet; Y71.1 Therapeutic (nonsurgical) and rehabilitative cardiovascular devices associated with adverse incidents; Z20.822 Contact with and (suspected) exposure to COVID-19; Z95.5 Presence of coronary angioplasty implant and graft; Z86.73 Personal history of transient ischemic attack (TIA), and cerebral infarction without residual deficits; Z85.3 Personal history of malignant neoplasm of breast; Z90.11 Acquired absence of right breast and nipple; Z88.8 Allergy status to other drugs, medicaments and biological substances; Z79.899 Other long term (current) drug therapy; Z79.811 Long term (current) use of aromatase inhibitors; Z79.891 Long term (current) use of opiate analgesic; Z86.79 Personal history of other diseases of the circulatory system
CPT/HCPCS: 36415; 70450; 71046; 74177; 75635; 76705; 80048; 80053; 80074; 80143; 81001; 82140; 82247; 82550; 83690; 83735; 83880; 84075; 84450; 84460; 84484; 85025; 85027; 85610; 85730; 87040; 87636; 93005; 93306; 93922; 93970; 94640; 94760; 96374; 99285; 99406

== ENCOUNTER 2022-11-07 18:40 | Inpatient (IN) | payer MEDICARE ==
[2022-11-07] MEDS ORDERED: MORPHINE SULFATE 4 MG/ML SYRINGE IVP STA (19:13)
[2022-11-07] MEDS ORDERED: HEPARIN SODIUM 1,000 UN/ML (10ML VL) IV ONE (19:41)
[2022-11-07] MEDS: HEPARIN SOD,PORK IN 0.45% NACL 25,000 UNIT in 0.45% NACL 1 250ML.BAG IV SCH (20:55)
[2022-11-07] MEDS ORDERED: NALOXONE 0.4 MG/ML 1 ML VIAL IV PRN (21:05)
--- NOTE | 2022-11-07 21:05 | ED ---
General Adult HPI - General Chief complaint: Skin/Abscess/Foreign Body Stated complaint: foot abscess Time Seen by Provider: 11/07/22 18:46 Source: patient Mode of arrival: wheelchair Limitations: no limitations - History of Present Illness Initial comments: 77-year-old female with past history of peripheral vascular disease, A. fib, breast cancer who presents emergency Department reporting increased discoloration to her toes. Patient was just hospitalized from to the . At this time she was reporting to increased pain and discoloration of her right lower extremity. She had ultrasound and CT angiography of her lower extremity is performed due to vascular insufficiency. She was told that she needs surgery however Dr. Harden will not perform the surgery until she has cardiology clearance. Patient admits that she was discharged home on Thursday. Thursday she woke up and began having worsening discoloration of her left toes. States that this is normally her good foot. She began developing a blister to the top portion of the foot. Her home care nurse evaluated her on Thursday and recommended that she come into the hospital. She had another evaluation today by the home care nurse who further recommended that the patient go into the emergency department for her symptoms. Patient states that she finally listens and comes in for evaluation. She denies any chest pain or shortness of breath. Is taking her Eliquis at home without any missed doses. 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 - Related Data Home Medications Medication Instructions Recorded Confirmed Fluticasone/Umeclidin/Vilanter 1 puff INHALATION RT-DAILY PRN 11/01/21 11/07/22 [Trelegy Ellipta 100-62.5-25] Nitroglycerin Sl Tabs [Nitrostat] 0.4 mg SUBLINGUAL Q5M PRN 04/16/22 11/07/22 ALPRAZolam [Xanax] 0.25 mg PO HS 09/16/22 11/07/22 Acetaminophen Tab [Tylenol] 500 - 1,500 mg PO Q6H PRN 09/16/22 11/07/22 Albuterol Sulfate [Ventolin HFA] 1 puff INHALATION RT-Q6H PRN 09/16/22 11/07/22 Gabapentin [Neurontin] 100 mg PO BID 09/16/22 11/07/22 Escitalopram [Lexapro] 20 mg PO DAILY 10/27/22 11/07/22 Albuterol Nebulized [Ventolin 2.5 mg INHALATION RT-QID PRN 11/07/22 11/07/22 Nebulized] Previous Rx's Medication Instructions Recorded Collagenase [Santyl Ointment] 1 applic TOPICAL DAILY 30 Days #1 09/23/22 each Metoprolol Tartrate [Lopressor] 50 mg PO BID #60 tab 10/31/22 Apixaban [Eliquis] 5 mg PO BID 30 Days #60 tab 11/12/22 Atorvastatin [Lipitor] 40 mg PO DAILY #30 tab 11/12/22 Furosemide [Lasix] 40 mg PO BID@0900,1600 30 Days #60 11/12/22 tab HYDROcodone/APAP 5-325MG [Paola 1 tab PO Q8HR PRN 5 Days #15 tab 11/12/22 5-325] lisinopriL [Zestril] 5 mg PO DAILY #30 tab 11/12/22 Allergies Allergy/AdvReac Type Severity Reaction Status Date / Time sumatriptan [From Imitrex] AdvReac Chest Pain Verified 11/07/22 21:18 Review of Systems ROS Statement: Those systems with pertinent positive or pertinent negative responses have been documented in the HPI. ROS Other: All systems not noted in ROS Statement are negative. Past Medical History Past Medical History: Atrial Fibrillation, Coronary Artery Disease (CAD), Cancer, Heart Failure, COPD, CVA/TIA, Hyperlipidemia, Hypertension, Mitral Valve Prolapse (MVP), Neurologic Disorder, Osteoarthritis (OA), Pneumonia, Skin Disorder, Sleep Apnea/CPAP/BIPAP, Vascular Disorder Additional Past Medical History / Comment(s): right breast cancer (mastectomy november 2021).,. Multiple Sclerosis. ,PAD hx chronic wounds left foot/lower leg now healed., states feet are red & purple in color, edema both feet., peripheral neuropathy., CVA x2 Jul/Aug 2021 gait unsteady-uses w/c., generalized weakness., hx anemia with iron infusions., hx hospitalization for collapsed lung and respiratory failure with intubation., states lump on her vocal cord.,. oxygen at 2.5-4 L prn, sleep apnea (no machine) History of Any Multi-Drug Resistant Organisms: None Reported Past Surgical History: Appendectomy, Breast Surgery, Coronary Bypass/CABG, Heart Catheterization With Stent, Orthopedic Surgery, Tonsillectomy Additional Past Surgical History / Comment(s): 08/17/21 surgery at [place] for mass upper back., 11/2020 CABG 4 vessel, PCI/stents in , bilateral iliac arthrectomy/stents ., left foot wound debridements, bronchoscopy/lavage, bilater al breast biopsies, D&C, lumpectomy right breast 08/2021. Right mastectomy (11/26/21) Past Anesthesia/Blood Transfusion Reactions: No Reported Reaction, Motion Sickness Additional Past Anesthesia/Blood Transfusion Reaction / Comment(s): No hx blood transfusion. Date of Last Stent Placement:: 2008 Past Psychological History: Anxiety, Depression Smoking Status: Current every day smoker Past Alcohol Use History: None Reported Past Drug Use History: None Reported - Past Family History Father Family Medical History: No Reported History Additional Family Medical History / Comment(s): alcoholism, deseased. Mother Family Medical History: Cancer Additional Family Medical History / Comment(s): Breast and brain cancer. General Exam Limitations: no limitations General appearance: alert, in no apparent distress Head exam: Present: atraumatic, normocephalic, normal inspection Eye exam: Present: normal appearance, PERRL, EOMI. Absent: scleral icterus, conjunctival injection, periorbital swelling ENT exam: Present: normal exam, mucous membranes moist Neck exam: Present: normal inspection. Absent: tenderness, meningismus, lymphadenopathy Respiratory exam: Present: normal lung sounds bilaterally. Absent: respiratory distress, wheezes, rales, rhonchi, stridor Cardiovascular Exam: Present: regular rate, normal rhythm, normal heart sounds. Absent: systolic murmur, diastolic murmur, rubs, gallop, clicks GI/Abdominal exam: Present: soft, normal bowel sounds. Absent: distended, tenderness, guarding, rebound, rigid Extremities exam: Present: tenderness, pedal edema, other (dusky appearing toes left foot, digits 1-3. large serosanginous blister dorsal foot. pulses found via ultrasound). Absent: joint swelling, calf tenderness Back exam: Present: normal inspection Neurological exam: Present: alert, oriented X3, CN II-XII intact Psychiatric exam: Present: normal affect, normal mood Skin exam: Present: warm, dry, intact, normal color. Absent: rash Course Vital Signs 11/07/22 11/07/22 18:41 21:35 Temperature 98.7 F 98.1 F Pulse Rate 79 79 Respiratory 18 16 Rate Blood Pressure 131/77 132/89 O2 Sat by Pulse 99 100 Oximetry Medical Decision Making - Medical Decision Making Was pt. sent in by a medical professional or institution (, [facility], [employer], urgent care, hospital, or group home...) When possible be specific @ -No Did you speak to anyone other than the patient for history (EMS, parent, family, police, friend...)? What history was obtained from this source @ -Family Did you review nursing and triage notes (agree or disagree)? Why? @ -I reviewed and agree with nursing and triage notes Were old charts reviewed (outside hosp., previous admission, EMS record, old EKG, old radiological studies, urgent care reports/EKG's, group home records)? Report findings @ -old charts were reviewed - patients discharge summary from earlier this week Differential Diagnosis (chest pain, altered mental status, abdominal pain women, abdominal pain men, vaginal bleeding, weakness, fever, dyspnea, syncope, headache, dizziness, GI bleed, back pain, seizure, CVA, palpatations, mental health, musculoskeletal)? @ -critical limb ischemia, dvt, trauma, dissection EKG interpreted by me (3pts min.). @ -yes X-rays interpreted by me (1pt min.). @ -None dibe CT interpreted by me (1pt min.). @ -None done U/S interpreted by me (1pt. min.). @ -None done What testing was considered but not performed or refused? (CT, X-rays, U/S, labs)? Why? @ -CTA however patient just had this study - dr harden states she would figure out which imaging was needed What meds were considered but not given or refused? Why? @ -None Did you discuss the management of the patient with other professionals (professionals i.e. , [place], [employer], lab, RT, psych nurse, social media developer, warehouse stocker, teacher, chief investment officer, nurse outreach case manager)? Give summary @ -Dr. smith who will admit the patient Was smoking cessation discussed for >3mins.? @ -No Was critical care preformed (if so, how long)? @ -Yes, 35 minutes Were there social determinants of health that impacted care today? How? (Ho melessness, low income, unemployed, alcoholism, drug addiction, transportation, low edu. Level, literacy, decrease access to med. care, usp, rehab)? @ -No Was there de-escalation of care discussed even if they declined (Discuss DNR or withdrawal of care, Hospice)? DNR status @ -No What co-morbidities impacted this encounter? (DM, HTN, Smoking, COPD, CAD, Cancer, CVA, ARF, Chemo, Hep., AIDS, mental health diagnosis, sleep apnea, morbid obesity)? @ -PAD Was patient admitted / discharged? Hospital course, mention meds given and route, prescriptions, significant lab abnormalities, going to OR and other pertinent info. @ -Upon arrival patient is placed into room 3. History and physical exam was performed. I am able to use the ultrasound machine and appreciate dorsalis pedis and posterior tibial pulses. She does have concerning purple discoloration to her left first through third toes. Because of this I did immediately call Dr. Harden. Discussed the case with her. Patient recently had CT angiography. Unsure if I should proceed with this study due to chronic kidney issues. Dr. Harden states that she would like the patient heparinized and will evaluate the patient herself to understand if she needs any further imaging. Patient was given a dose of pain medication. Admitted to [facility]. Spoke with Dr. smith who agreed to admit the patient. She was taken to the floor in stable condition Undiagnosed new problem with uncertain prognosis? @ -No Drug Therapy requiring intensive monitoring for toxicity (Heparin, Nitro, Insulin, Cardizem)? @ -Yes, heparin Were any procedures done? @ -No Diagnosis/symptom? @ -acute left toes 1-3 critical limb ischemia Acute, or Chronic, or Acute on Chronic? @ -acute on chronic Uncomplicated (without systemic symptoms) or Complicated (systemic symptoms)? @ -complicated Side effects of treatment? @ -No Exacerbation, Progression, or Severe Exacerbation? @ -yes Poses a threat to life or bodily function? How? (Chest pain, USA, NV, pneumonia, PE, COPD, DKA, ARF, appy, cholecystitis, CVA, Diverticulitis, Homicidal, Suicidal, threat to staff... and all critical care pts) @ -yes - Lab Data Result diagrams: 11/12/22 02:44 11/12/22 02:44 Lab Results 11/07/22 11/07/22 11/07/22 Range/Units 20:41 20:41 20:41 WBC 11.4 H (3.8-10.6) k/uL RBC 4.10 (3.80-5.40) m/uL Hgb 12.4 (11.4-16.0) gm/dL Hct 39.8 (34.0-46.0) % MCV 97.3 (80.0-100.0) fL MCH 30.2 (25.0-35.0) pg MCHC 31.0 (31.0-37.0) g/dL RDW 15.9 H (11.5-15.5) % Plt Count 203 (150-450) k/uL MPV 8.5 Neutrophils % 81 % Lymphocytes % 13 % Monocytes % 4 % Eosinophils % 0 % Basophils % 0 % Neutrophils # 9.2 H (1.3-7.7) k/uL Lymphocytes # 1.5 (1.0-4.8) k/uL Monocytes # 0.5 (0-1.0) k/uL Eosinophils # 0.0 (0-0.7) k/uL Basophils # 0.0 (0-0.2) k/uL Hypochromasia Moderate Poikilocytosis Slight PT 10.9 (9.0-12.0) sec INR 1.0 (<1.2) APTT 21.0 L (22.0-30.0) sec Sodium (137-145) mmol/L Potassium (3.5-5.1) mmol/L Chloride (98-107) mmol/L Carbon Dioxide (22-30) mmol/L Anion Gap mmol/L BUN (7-17) mg/dL Creatinine (0.52-1.04) mg/dL Est GFR (CKD-EPI)AfAm (>60 ml/min/1.73 sqM) Est GFR (CKD-EPI)NonAf (>60 ml/min/1.73 sqM) Glucose (74-99) mg/dL Plasma Lactic Acid Harrison 1.7 (0.7-2.0) mmol/L Calcium (8.4-10.2) mg/dL Total Bilirubin (0.2-1.3) mg/dL AST (14-36) U/L ALT (4-34) U/L Alkaline Phosphatase (38-126) U/L Total Protein (6.3-8.2) g/dL Albumin (3.5-5.0) g/dL 11/07/22 Range/Units 20:41 WBC (3.8-10.6) k/uL RBC (3.80-5.40) m/uL Hgb (11.4-16.0) gm/dL Hct (34.0-46.0) % MCV (80.0-100.0) fL MCH (25.0-35.0) pg MCHC (31.0-37.0) g/dL RDW (11.5-15.5) % Plt Count (150-450) k/uL MPV Neutrophils % % Lymphocytes % % Monocytes % % Eosinophils % % Basophils % % Neutrophils # (1.3-7.7) k/uL Lymphocytes # (1.0-4.8) k/uL Monocytes # (0-1.0) k/uL Eosinophils # (0-0.7) k/uL Basophils # (0-0.2) k/uL Hypochromasia Poikilocytosis PT (9.0-12.0) sec INR (<1.2) APTT (22.0-30.0) sec Sodium 135 L (137-145) mmol/L Potassium 4.3 (3.5-5.1) mmol/L Chloride 96 L (98-107) mmol/L Carbon Dioxide 36 H (22-30) mmol/L Anion Gap 3 mmol/L BUN 17 (7-17) mg/dL Creatinine 0.64 (0.52-1.04) mg/dL Est GFR (CKD-EPI)AfAm >90 (>60 ml/min/1.73 sqM) Est GFR (CKD-EPI)NonAf 88 (>60 ml/min/1.73 sqM) Glucose 88 (74-99) mg/dL Plasma Lactic Acid Harrison (0.7-2.0) mmol/L Calcium 8.2 L (8.4-10.2) mg/dL Total Bilirubin 1.1 (0.2-1.3) mg/dL AST 60 H (14-36) U/L ALT 130 H (4-34) U/L Alkaline Phosphatase 166 H (38-126) U/L Total Protein 6.1 L (6.3-8.2) g/dL Albumin 3.1 L (3.5-5.0) g/dL Disposition Clinical Impression: Atherosclerosis of [place] arteries of left leg with ulceration of heel and midfoot, Peripheral vascular disease Disposition: ADMITTED IP TO THIS [facility] Condition: Serious Is patient prescribed a controlled substance at d/c from ED?: No Time of Disposition: 21:05 Decision to Admit Reason: Admit from EC Decision Date: 11/07/22 Decision Time: 21:05
[2022-11-07 21:11] LABS: ALT 130 U/L (4-34); AST 60 U/L (14-36); African American GFR (CKD) >90 (>60 ml/min/1.73 sqM); Albumin 3.1 g/dL (3.5-5.0); Alkaline Phosphatase 166 U/L (38-126); Anion Gap 3 mmol/L; Blood Urea Nitrogen 17 mg/dL (7-17); Calcium 8.2 mg/dL (8.4-10.2); Carbon Dioxide 36 mmol/L (22-30); Chloride 96 mmol/L (98-107); Glucose 88 mg/dL (74-99); Non-African American GFR(CKD) 88 (>60 ml/min/1.73 sqM); Potassium 4.3 mmol/L (3.5-5.1); Sodium 135 mmol/L (137-145); Total Bilirubin 1.1 mg/dL (0.2-1.3); Total Protein 6.1 g/dL (6.3-8.2)
[2022-11-07 21:15] LABS: Prothrombin Time 10.9 sec (9.0-12.0)
[2022-11-07 21:29] LABS: Basophils % (A) 0 %; Eosinophils % (A) 0 %; HCT 39.8 % (34.0-46.0); HGB 12.4 gm/dL (11.4-16.0); Hypochromasia Moderate; Lymphocytes # (A) 1.5 k/uL (1.0-4.8); Lymphocytes % (A) 13 %; MCH 30.2 pg (25.0-35.0); MCV 97.3 fL (80.0-100.0); Mean Platelet Volume 8.5; Monocytes # (A) 0.5 k/uL (0-1.0); Monocytes % (A) 4 %; Neutrophils # (A) 9.2 k/uL (1.3-7.7); Neutrophils % (A) 81 %; Platelet Count 203 k/uL (150-450); Poikilocytosis Slight; RDW 15.9 % (11.5-15.5); WBC 11.4 k/uL (3.8-10.6)
[2022-11-07] MEDS: MORPHINE SULFATE 4 MG/ML SYRINGE IV PRN (22:35)
[2022-11-08 02:22] LABS: African American GFR (CKD) >90 (>60 ml/min/1.73 sqM); Anion Gap 1 mmol/L; Blood Urea Nitrogen 16 mg/dL (7-17); Calcium 7.7 mg/dL (8.4-10.2); Carbon Dioxide 35 mmol/L (22-30); Chloride 96 mmol/L (98-107); Non-African American GFR(CKD) >90 (>60 ml/min/1.73 sqM); Sodium 132 mmol/L (137-145)
[2022-11-08 02:26] LABS: Basophils % (A) 0 %; Eosinophils # (A) 0.1 k/uL (0-0.7); Eosinophils % (A) 1 %; Glucose 113 mg/dL (74-99); HCT 37.1 % (34.0-46.0); HGB 11.7 gm/dL (11.4-16.0); Hypochromasia Marked; Lymphocytes # (A) 1.7 k/uL (1.0-4.8); Lymphocytes % (A) 17 %; MCH 31.2 pg (25.0-35.0); MCHC 31.6 g/dL (31.0-37.0); MCV 98.7 fL (80.0-100.0); Macrocytosis Slight; Mean Platelet Volume 9.4; Monocytes # (A) 0.5 k/uL (0-1.0); Monocytes % (A) 5 %; Neutrophils # (A) 7.8 k/uL (1.3-7.7); Neutrophils % (A) 77 %; Platelet Count 163 k/uL (150-450); Poikilocytosis Slight; Potassium 5.9 mmol/L (3.5-5.1); RBC 3.76 m/uL (3.80-5.40); RDW 15.8 % (11.5-15.5); WBC 10.1 k/uL (3.8-10.6)
[2022-11-08 02:29] LABS: INR 1.1 (<1.2); Partial Thromboplastin Time 27.6 sec (22.0-30.0); Prothrombin Time 11.5 sec (9.0-12.0)
[2022-11-08] MEDS: HEPARIN SODIUM 1,000 UN/ML (10ML VL) IV PRN (03:05)
[2022-11-08] MEDS: MORPHINE SULFATE 4 MG/ML SYRINGE IV PRN ×4 (09:51→23:32)
[2022-11-08] MEDS ORDERED: ACETAMINOPHEN TAB 500 MG TAB PO PRN (10:04)
[2022-11-08] MEDS ORDERED: ALBUTEROL NEBULIZED 2.5 MG/3 ML INHALATION PRN (10:08)
[2022-11-08] MEDS ORDERED: NITROGLYCERIN SL TABS 0.4 MG TAB SUBLINGUAL PRN (10:08)
[2022-11-08] MEDS ORDERED: IPRATROPIUM 0.5 MG/2.5 ML NEBU INHALATION PRN (10:08)
[2022-11-08] MEDS ORDERED: ALBUTEROL HFA INHALER INHALATION PRN (10:08)
[2022-11-08] MEDS ORDERED: CALCIUM GLUCONATE IN NACL 1 GM in SALINE 1 100ML.BAG IVPB ONE (10:13)
[2022-11-08] MEDS ORDERED: DEXTROSE 50% SYRINGE 50 ML IVP ONE (10:13)
[2022-11-08] MEDS ORDERED: SODIUM POLYSTYRENE SULFONATE 15 GM/60 ML BOTTLE PO ONE (10:13)
[2022-11-08] MEDS ORDERED: ALBUTEROL NEB (CONC) 2.5 MG/0.5 ML INHALATION ONE (10:13)
[2022-11-08] MEDS ORDERED: INSULIN REGULAR 100 UNIT/ML VIAL (IV) IV ONE (10:13)
[2022-11-08] MEDS: ACETAMINOPHEN TAB 325 MG TAB PO PRN (12:23)
--- NOTE | 2022-11-08 14:10 | P.HPIM ---
History of Present Illness H&P Date: 11/08/22 History of present illness; This is a 77-year-old female past medical history significant for peripheral vascular disease, Narcisa bowers who was recently admitted for CHF exacerbation as well as hepatic congestion with transaminitis presented to the ER for increased discoloration to her toes .Patient has severe peripheral vascular disease and managed by vascular surgery along with wound care in the outpatient setting. Patient was seen and evaluated recently underwent CT aNGiO with runoff with no plans for immediate intervention and was placed back on anticoagulation, vascular surgery were planning intervention once cleared by cardiology. Patient was discharged on Thursday, beginning Thursday she started noticing blister on her left foot followed by bluish discoloration of her toes, wound care nurse was following up on her and she told her to come to ER. Initial lab work in the ER showed white count of 11.4, hemoglobin of 12.4, platelet count 203, sodium 135, potassium 4.3, chloride 96, carbon dioxide 36, BUN 17, creatinine 0.64 REVIEW OF SYSTEMS: CONSTITUTIONAL: No fever, no malaise, no fatigue. HEENT: No recent visual problems or hearing problems. Denied any sore throat. CARDIOVASCULAR: No chest pain, orthopnea, PND, no palpitations, no syncope. PULMONARY: No shortness of breath, no cough, no hemoptysis. GASTROINTESTINAL: No diarrhea, no nausea, no vomiting, no abdominal pain. NEUROLOGICAL: No headaches, no weakness, no numbness. HEMATOLOGICAL: Denies any bleeding or petechiae. GENITOURINARY: Denies any burning micturition, frequency, or urgency. MUSCULOSKELETAL/RHEUMATOLOGICAL: As mentioned in HPI ENDOCRINE: Denies any polyuria or polydipsia. The rest of the 14-point review of systems is negative. PHYSICAL EXAMINATION: GENERAL: The patient is alert and oriented x3, not in any acute distress. Well developed, well nourished. HEENT: Pupils are round and equally reacting to light. EOMI. No scleral icterus. No conjunctival pallor. Normocephalic, atraumatic. No pharyngeal erythema. No thyromegaly. CARDIOVASCULAR: S1 and S2 present. No murmurs, rubs, or gallops. PULMONARY: Chest is clear to auscultation, no wheezing or crackles. ABDOMEN: Soft, nontender, nondistended, normoactive bowel sounds. No palpable organomegaly. MUSCULOSKELETAL: No joint swelling or deformity. EXTREMITIES: Left foot blister noticeable on the dorsum of the foot, bluish discoloration noticeable NEUROLOGICAL: Gross neurological examination did not reveal any focal deficits. SKIN: No rashes. Assessment and plan Acute left limb ischemia of left foot Peripheral vascular disease Hypertension Chronic hypoxic respiratory failure Chronic systolic CHF -Transaminitis Hyperkalemia -Atrial fibrillation paroxysmal -Hyperlipidemia -Hypertension -Coronary artery disease with stents in the past and CABG in the past Plan; Monitor vital signs Monitor CBC next monitor CMP Continue pharmacy dose heparin Low potassium diet. Ordered dextrose, insulin, calcium gluconate for hyperkalemia Vascular surgery on board for acute limb ischemia, they're planning possible angiogram Cardiology consulted for cardiac clearance Nephrology consulted for hyperkalemia DVT prophylaxis: Past Medical History Past Medical History: Atrial Fibrillation, Coronary Artery Disease (CAD), Cancer, Heart Failure, COPD, CVA/TIA, Hyperlipidemia, Hypertension, Mitral Valve Prolapse (MVP), Neurologic Disorder, Osteoarthritis (OA), Pneumonia, Skin Disorder, Sleep Apnea/CPAP/BIPAP, Vascular Disorder Additional Past Medical History / Comment(s): right breast cancer (mastectomy november 2021).,. Multiple Sclerosis. ,PAD hx chronic wounds left foot/lower leg now healed., states feet are red & purple in color, edema both feet., peripheral neuropathy., CVA x2 Jul/Aug 2021 gait unsteady-uses w/c., generalized weakness., hx anemia with iron infusions., hx hospitalization for collapsed lung and respiratory failure with intubation., states lump on her vocal cord.,. oxygen at 2.5-4 L prn, sleep apnea (no machine) History of Any Multi-Drug Resistant Organisms: None Reported Past Surgical History: Appendectomy, Breast Surgery, Coronary Bypass/CABG, Heart Catheterization With Stent, Orthopedic Surgery, Tonsillectomy Additional Past Surgical History / Comment(s): 08/17/21 surgery at [place] for mass upper back., 11/2020 CABG 4 vessel, PCI/stents in , bilateral iliac arthrectomy/stents ., left foot wound debridements, bronchoscopy/lavage, bilateral breast biopsies, D&C, lumpectomy right breast 08/2021. Right mastectomy (11/26/21) Past Anesthesia/Blood Transfusion Reactions: No Reported Reaction, Motion Sickness Additional Past Anesthesia/Blood Transfusion Reaction / Comment(s): No hx blood transfusion. Date of Last Stent Placement:: 2008 Past Psychological History: Anxiety, Depression Smoking Status: Current every day smoker Past Alcohol Use History: None Reported Past Drug Use History: None Reported - Past Family History Father Family Medical History: No Reported History Additional Family Medical History / Comment(s): alcoholism, deseased. Mother Family Medical History: Cancer Additional Family Medical History / Comment(s): Breast and brain cancer. Medications and Allergies Home Medications Medication Instructions Recorded Confirmed Type Apixaban [Eliquis] 5 mg PO BID #0 08/22/21 11/07/22 Rx Fluticasone/Umeclidin/Vilanter 1 puff INHALATION RT-DAILY PRN 11/01/21 11/07/22 History [Trelegy Ellipta 100-62.5-25] Nitroglycerin Sl Tabs [Nitrostat] 0.4 mg SUBLINGUAL Q5M PRN 04/16/22 11/07/22 History Furosemide [Lasix] 40 mg PO BID@0900,1600 #60 tab 08/06/22 11/07/22 Rx ALPRAZolam [Xanax] 0.25 mg PO HS 09/16/22 11/07/22 History Acetaminophen Tab [Tylenol] 500 - 1,500 mg PO Q6H PRN 09/16/22 11/07/22 History Albuterol Sulfate [Ventolin HFA] 1 puff INHALATION RT-Q6H PRN 09/16/22 11/07/22 History Gabapentin [Neurontin] 100 mg PO BID 09/16/22 11/07/22 History Collagenase [Santyl Ointment] 1 applic TOPICAL DAILY 30 Days #1 09/23/22 11/07/22 Rx each Escitalopram [Lexapro] 20 mg PO DAILY 10/27/22 11/07/22 History traMADol HCL 50 mg PO HS PRN 10/27/22 11/07/22 History Metoprolol Tartrate [Lopressor] 50 mg PO BID #60 tab 10/31/22 11/07/22 Rx Albuterol Nebulized [Ventolin 2.5 mg INHALATION RT-QID PRN 11/07/22 11/07/22 History Nebulized] Allergies Allergy/AdvReac Type Severity Reaction Status Date / Time sumatriptan [From Imitrex] AdvReac Chest Pain Verified 11/07/22 21:18 Physical Exam Vitals: Vital Signs Temp Pulse Pulse Resp BP BP Pulse Ox 11/08/22 09:00 98.2 F 103 H 16 156/81 95 11/08/22 04:00 98.6 F 75 18 133/66 98 11/08/22 00:00 87 18 135/86 98 11/07/22 22:15 98.3 F 73 18 154/65 98 11/07/22 21:35 98.1 F 79 16 132/89 100 11/07/22 18:41 98.7 F 79 18 131/77 99 Intake and Output 11/07/22 11/08/22 11/08/22 22:59 06:59 14:59 Intake Total 29.139 100 Balance 29.139 100 Intake: Intake, IV Titration 29.139 Amount Heparin Sod,Pork in 0.45% 29.139 NaCl 25,000 unit In 0.45 % NaCl 1 250ml.bag @ 12 UNITS/KG/HR 4.79 mls/hr IV .Q24H [facility] Rx#: [id number] Oral 100 Other: Voiding Method Bedpan Diaper Incontinent Weight 39.916 kg Results CBC & Chem 7: 11/08/22 01:45 11/08/22 10:16 Labs: Abnormal Lab Results - Last 24 Hours (Table) 11/07/22 11/07/22 11/07/22 Range/Units 20:41 20:41 20:41 WBC 11.4 H (3.8-10.6) k/uL RBC (3.80-5.40) m/uL RDW 15.9 H (11.5-15.5) % Neutrophils # 9.2 H (1.3-7.7) k/uL APTT 21.0 L (22.0-30.0) sec Sodium 135 L (137-145) mmol/L Potassium (3.5-5.1) mmol/L Chloride 96 L (98-107) mmol/L Carbon Dioxide 36 H (22-30) mmol/L Glucose (74-99) mg/dL Calcium 8.2 L (8.4-10.2) mg/dL AST 60 H (14-36) U/L ALT 130 H (4-34) U/L Alkaline Phosphatase 166 H (38-126) U/L Total Protein 6.1 L (6.3-8.2) g/dL Albumin 3.1 L (3.5-5.0) g/dL 11/08/22 11/08/22 Range/Units 01:45 01:45 WBC (3.8-10.6) k/uL RBC 3.76 L (3.80-5.40) m/uL RDW 15.8 H (11.5-15.5) % Neutrophils # 7.8 H (1.3-7.7) k/uL APTT (22.0-30.0) sec Sodium 132 L (137-145) mmol/L Potassium 5.9 H (3.5-5.1) mmol/L Chloride 96 L (98-107) mmol/L Carbon Dioxide 35 H (22-30) mmol/L Glucose 113 H (74-99) mg/dL Calcium 7.7 L (8.4-10.2) mg/dL AST (14-36) U/L ALT (4-34) U/L Alkaline Phosphatase (38-126) U/L Total Protein (6.3-8.2) g/dL Albumin (3.5-5.0) g/dL Thrombosis Risk Factor Assmnt - Choose All That Apply Any of the Below Risk Factors Present?: Yes Each Factor Represents 1 point: Swollen legs (current) Other Risk Factors: Yes Each Risk Factor Represents 3 Points: Age 75 years or older Thrombosis Risk Factor Assessment Total Risk Factor Score: 4 Thrombosis Risk Factor Assessment Level: Moderate Risk
--- NOTE | 2022-11-08 14:16 | P.GSCN ---
History of Present Illness Consult date: 11/08/22 History of present illness: Sharmila is a 77-year-old female with known severe peripheral vascular disease that is chronic in nature, she was recently admitted to the hospital and at that time to have severe weakness and general debility. In aortogram with runoffs was performed due to her toe discoloration and swelling at that time worsening findings were of the right lower extremity. She presented to the ER today with worsening left lower extremity pain as well as discoloration of her first through third toes and a blister the top of her foot. She denies any trauma. She denies any changes in particular. She is motor intact. She still has pain in her bilateral feet as previous. This is essentially unchanged as had been Past Medical History Past Medical History: Atrial Fibrillation, Coronary Artery Disease (CAD), C ancer, Heart Failure, COPD, CVA/TIA, Hyperlipidemia, Hypertension, Mitral Valve Prolapse (MVP), Neurologic Disorder, Osteoarthritis (OA), Pneumonia, Skin Disorder, Sleep Apnea/CPAP/BIPAP, Vascular Disorder Additional Past Medical History / Comment(s): right breast cancer (mastectomy november 2021).,. Multiple Sclerosis. ,PAD hx chronic wounds left foot/lower leg now healed., states feet are red & purple in color, edema both feet., peripheral neuropathy., CVA x2 Jul/Aug 2021 gait unsteady-uses w/c., generalized weakness., hx anemia with iron infusions., hx hospitalization for collapsed lung and respiratory failure with intubation., states lump on her vocal cord.,. oxy gen at 2.5-4 L prn, sleep apnea (no machine) History of Any Multi-Drug Resistant Organisms: None Reported Past Surgical History: Appendectomy, Breast Surgery, Coronary Bypass/CABG, Heart Catheterization With Stent, Orthopedic Surgery, Tonsillectomy Additional Past Surgical History / Comment(s): 08/17/21 surgery at [facility] for mass upper back., 11/2020 CABG 4 vessel, PCI/stents in , bilateral iliac arthrectomy/stents ., left foot wound debridements, bronchoscopy/lavage, bilateral breast biopsies, D&C, lumpectomy right breast 08/2021. Right mastectomy (11/26/21) Past Anesthesia/Blood Transfusion Reactions: No Reported Reaction, Motion Sickness Additional Past Anesthesia/Blood Transfusion Reaction / Comm: No hx blood transfusion. Date of Last Stent Placement:: 2008 Past Psychological History: Anxiety, Depression Smoking Status: Current every day smoker Past Alcohol Use History: None Reported Past Drug Use History: None Reported - Past Family History Father Family Medical History: No Reported History Additional Family Medical History / Comment(s): alcoholism, deseased. Mother Family Medical History: Cancer Additional Family Medical History / Comment(s): Breast and brain cancer. Medications and Allergies Home Medications Medication Instructions Recorded Confirmed Type Apixaban [Eliquis] 5 mg PO BID #0 08/22/21 11/07/22 Rx Fluticasone/Umeclidin/Vilanter 1 puff INHALATION RT-DAILY PRN 11/01/21 11/07/22 History [Trelegy Ellipta 100-62.5-25] Nitroglycerin Sl Tabs [Nitrostat] 0.4 mg SUBLINGUAL Q5M PRN 04/16/22 11/07/22 History Furosemide [Lasix] 40 mg PO BID@0900,1600 #60 tab 08/06/22 11/07/22 Rx ALPRAZolam [Xanax] 0.25 mg PO HS 09/16/22 11/07/22 History Acetaminophen Tab [Tylenol] 500 - 1,500 mg PO Q6H PRN 09/16/22 11/07/22 History Albuterol Sulfate [Ventolin HFA] 1 puff INHALATION RT-Q6H PRN 09/16/22 11/07/22 History Gabapentin [Neurontin] 100 mg PO BID 09/16/22 11/07/22 History Collagenase [Santyl Ointment] 1 applic TOPICAL DAILY 30 Days #1 09/23/22 11/07/22 Rx each Escitalopram [Lexapro] 20 mg PO DAILY 10/27/22 11/07/22 History traMADol HCL 50 mg PO HS PRN 10/27/22 11/07/22 History Metoprolol Tartrate [Lopressor] 50 mg PO BID #60 tab 10/31/22 11/07/22 Rx Albuterol Nebulized [Ventolin 2.5 mg INHALATION RT-QID PRN 11/07/22 11/07/22 History Nebulized] Allergies Allergy/AdvReac Type Severity Reaction Status Date / Time sumatriptan [From Imitrex] AdvReac Chest Pain Verified 11/07/22 21:18 Surgical - Exam Vital Signs Temp Pulse Resp BP Pulse Ox 98.7 F 79 18 131/77 99 11/07/22 18:41 11/07/22 18:41 11/07/22 18:41 11/07/22 18:41 11/07/22 18:41 General appearance: The patient is alert, oriented, appears in no acute distress. Better appearing than previous admission HET: Head is normocephalic and atraumatic. Conjunctiva pink. Sclera anicteric. Neck: Supple without lymphadenopathy. Abdomen: Soft, nontender, nondistended with bowel sounds. No guarding or rigidity. Extremities: Bilateral lower extremity edema, scaly skin, significant improvement of right lower extremity coloration. No more purplish discoloration. Mildly erythematous. On the left her first through third toe with some cyanotic-appearing changes versus venous congestion. Large bullae on the top of the foot which is drained Skin: No rashes, no jaundice Neurological: No focal deficits. Alert and oriented. Results - Labs 11/08/22 01:45 11/08/22 10:16 Abnormal Lab Results - Last 24 Hours (Table) 11/07/22 11/07/22 11/07/22 Range/Units 20:41 20:41 20:41 WBC 11.4 H (3.8-10.6) k/uL RBC (3.80-5.40) m/uL RDW 15.9 H (11.5-15.5) % Neutrophils # 9.2 H (1.3-7.7) k/uL APTT 21.0 L (22.0-30.0) sec Sodium 135 L (137-145) mmol/L Potassium (3.5-5.1) mmol/L Chloride 96 L (98-107) mmol/L Carbon Dioxide 36 H (22-30) mmol/L Glucose (74-99) mg/dL Calcium 8.2 L (8.4-10.2) mg/dL AST 60 H (14-36) U/L ALT 130 H (4-34) U/L Alkaline Phosphatase 166 H (38-126) U/L Total Protein 6.1 L (6.3-8.2) g/dL Albumin 3.1 L (3.5-5.0) g/dL 11/08/22 11/08/22 11/08/22 Range/Units 01:45 01:45 10:16 WBC (3.8-10.6) k/uL RBC 3.76 L (3.80-5.40) m/uL RDW 15.8 H (11.5-15.5) % Neutrophils # 7.8 H (1.3-7.7) k/uL APTT 45.3 H (22.0-30.0) sec Sodium 132 L (137-145) mmol/L Potassium 5.9 H (3.5-5.1) mmol/L Chloride 96 L (98-107) mmol/L Carbon Dioxide 35 H (22-30) mmol/L Glucose 113 H (74-99) mg/dL Calcium 7.7 L (8.4-10.2) mg/dL AST (14-36) U/L ALT (4-34) U/L Alkaline Phosphatase (38-126) U/L Total Protein (6.3-8.2) g/dL Albumin (3.5-5.0) g/dL Diabetes panel 11/07/22 11/08/22 11/08/22 Range/Units 20:41 01:45 10:16 Sodium 135 L 132 L (137-145) mmol/L Potassium 4.3 5.9 H 5.1 (3.5-5.1) mmol/L Chloride 96 L 96 L (98-107) mmol/L Carbon Dioxide 36 H 35 H (22-30) mmol/L BUN 17 16 (7-17) mg/dL Creatinine 0.64 0.52 (0.52-1.04) mg/dL Glucose 88 113 H (74-99) mg/dL Calcium 8.2 L 7.7 L (8.4-10.2) mg/dL AST 60 H (14-36) U/L ALT 130 H (4-34) U/L Alkaline Phosphatase 166 H (38-126) U/L Total Protein 6.1 L (6.3-8.2) g/dL Albumin 3.1 L (3.5-5.0) g/dL Calcium panel 11/07/22 11/08/22 Range/Units 20:41 01:45 Calcium 8.2 L 7.7 L (8.4-10.2) mg/dL Albumin 3.1 L (3.5-5.0) g/dL Pituitary panel 11/07/22 11/08/22 11/08/22 Range/Units 20:41 01:45 10:16 Sodium 135 L 132 L (137-145) mmol/L Potassium 4.3 5.9 H 5.1 (3.5-5.1) mmol/L Chloride 96 L 96 L (98-107) mmol/L Carbon Dioxide 36 H 35 H (22-30) mmol/L BUN 17 16 (7-17) mg/dL Creatinine 0.64 0.52 (0.52-1.04) mg/dL Glucose 88 113 H (74-99) mg/dL Calcium 8.2 L 7.7 L (8.4-10.2) mg/dL Adrenal panel 11/07/22 11/08/22 11/08/22 Range/Units 20:41 01:45 10:16 Sodium 135 L 132 L (137-145) mmol/L Potassium 4.3 5.9 H 5.1 (3.5-5.1) mmol/L Chloride 96 L 96 L (98-107) mmol/L Carbon Dioxide 36 H 35 H (22-30) mmol/L BUN 17 16 (7-17) mg/dL Creatinine 0.64 0.52 (0.52-1.04) mg/dL Glucose 88 113 H (74-99) mg/dL Calcium 8.2 L 7.7 L (8.4-10.2) mg/dL Total Bilirubin 1.1 (0.2-1.3) mg/dL AST 60 H (14-36) U/L ALT 130 H (4-34) U/L Alkaline Phosphatase 166 H (38-126) U/L Total Protein 6.1 L (6.3-8.2) g/dL Albumin 3.1 L (3.5-5.0) g/dL Assessment and Plan Assessment: #1. Left lower extremity discoloration and bullae 2. Chronic peripheral arterial disease 3. Chronic lower extremity wounds 3. History of bilateral iliac stents, patent on recent computed tomography scan 4. Weakness 5. Acute kidney injury 6. Atrial fibrillation 7. History of TIA Plan: Continuous and transported care. A CT angiogram was reviewed again, the patient likely will need an aortogram with runoffs to evaluating concerns regularly discussed smoking cessation and local wound care. Continue heparin drip at this time due to A. fib and on liquids. We will adjust and monitor, will see if there is any change in foot coloration due to large bullae drainage, uncertain if this is causing pressure causing microscopic changes.
[2022-11-08 14:49] VITALS: BMI 18.3
[2022-11-08] MEDS: FUROSEMIDE 40 MG TAB PO SCH (15:17)
--- NOTE | 2022-11-08 15:45 | P.CRDCN ---
History of Present Illness Consult date: 11/08/22 Chief complaint: pre-op clearance History of present illness: History of present illness: Patient has a pleasant 77-year-old female with significant past medical history of PVD, atrial fibrillation on Eliquis, breast cancer, CABG 4 vessels 11/2020, COPD, multiple sclerosis, status post PCI , ischemic cardiomyopathy, CVA, PAD status post prior angioplasty who presented to the emergency department with worsening discoloration of left foot and toes. She was recently admitted last week for the same for who she saw vascular surgery Dr. Tadeo. She sees Dr. Adame as her architecture consultant in the office. Cardiology was consulted for cardiac clearance for possible surgery. Patient reports that she has been dealing with issues with her left foot for the past 1 month, she also has a wound on the right lower extremity. She had an echo during her previous admission for that revealed EF 3540%, moderate LVH, moderate mitral insufficiency and moderate tricuspid insufficiency. Her activity has been limited over the past 1 month due to her foot issues. She reports feeling short of breath, this is chronic and stable per her report. She denies any chest pain or palpitations. She does have complaints of dizziness. Labs reviewed: WBC 10.1, hemoglobin 11.7, potassium 5.1, creatinine 0.52. She is currently on a heparin drip and getting Lasix 40 mg by mouth twice a day. She is still smoking. She has not had a recent stress test. REVIEW OF SYSTEMS: No fever or chills. No cough or expectoration. No diaphoresis. Patient denies headache, dizziness, blurred vision, double vision. Patient denies any stomach discomfort. No nausea, vomiting. No hematochezia. No hematemesis. Denies any black stools or blood in his stools. Denies dysuria or hematuria. No muscle weakness or numbness. No chest pain or pressure. Reports shortness of breath. Reports discoloration of feet. PHYSICAL EXAMINATION: This is a 77 year-old email in no apparent distress at the time of my examination. HEENT: Head is atraumatic, normocephalic. Pupils are equal, round. Sclerae anicteric. Conjunctivae are clear. Mucous membranes of the mouth are moist. Neck is supple. There is no jugular venous distention. No carotid bruit is heard. CHEST EXAMINATION: Lungs are clear to auscultation. No chest wall tenderness is noted on palpation or with deep breathing. HEART EXAMINATION: Heart regular rate and rhythm. S1, S2 heard. No murmurs, gallops or rub. ABDOMEN: Soft, nontender. Bowel sounds are heard. EXTREMITIES: Left foot with large blister on top, digits 1 through 3 are purple/black, pitting edema. Right foot toes are a deeper red color, pitting edema, right painter is wrapped in Kerlix. NEUROLOGIC EXAMINATION: Patient is awake, alert and oriented x3. IMPRESSION AND PLAN: Atrial fibrillation, on anticoagulation Ischemic cardiomyopathy, current EF 3540% Status post CABG 4 vessel 11/2020 and status post prior PCI PAD PVD Tobacco abuse PLAN: We will check a Lexiscan stress test for preoperative clearance, this will likely be done on Thursday, nothing by mouth after midnight on Thursday night. Smoking cessation was strongly emphasized. Vascular surgery is following. We will follow. I am dictating on behalf of Dr. Seamus Jones's history/physical and assessment/plan. Past Medical History Past Medical History: Atrial Fibrillation, Coronary Artery Disease (CAD), Cancer, Heart Failure, COPD, CVA/TIA, Hyperlipidemia, Hypertension, Mitral Valve Prolapse (MVP), Neurologic Disorder, Osteoarthritis (OA), Pneumonia, Skin Disorder, Sleep Apnea/CPAP/BIPAP, Vascular Disorder Additional Past Medical History / Comment(s): right breast cancer (mastectomy november 2021).,. Multiple Sclerosis. ,PAD hx chronic wounds left foot/lower leg now healed., states feet are red & purple in color, edema both feet., peripheral neuropathy., CVA x2 Jul/Aug 2021 gait unsteady-uses w/c., generalized weakness., hx anemia with iron infusions., hx hospitalization for collapsed lung and respiratory failure with intubation., states lump on her vocal cord.,. oxygen at 2.5-4 L prn, sleep apnea (no machine) History of Any Multi-Drug Resistant Organisms: None Reported Past Surgical History: Appendectomy, Breast Surgery, Coronary Bypass/CABG, Heart Catheterization With Stent, Orthopedic Surgery, Tonsillectomy Additional Past Surgical History / Comment(s): 08/17/21 surgery at [facility] for mass upper back., 11/2020 CABG 4 vessel, PCI/stents in , bilateral iliac arthrectomy/stents ., left foot wound debridements, bronchoscopy/lavage, bilateral breast biopsies, D&C, lumpectomy right breast 08/2021. Right mastectomy (11/26/21) Past Anesthesia/Blood Transfusion Reactions: No Reported Reaction, Motion Sickness Additional Past Anesthesia/Blood Transfusion Reaction / Comment(s): No hx blood transfusion. Date of Last Stent Placement:: 2008 Past Psychological History: Anxiety, Depression Smoking Status: Current every day smoker Past Alcohol Use History: None Reported Past Drug Use History: None Reported - Past Family History Father Family Medical History: No Reported History Additional Family Medical History / Comment(s): alcoholism, deseased. Mother Family Medical History: Cancer Additional Family Medical History / Comment(s): Breast and brain cancer. Medications and Allergies Home Medications Medication Instructions Recorded Confirmed Type Apixaban [Eliquis] 5 mg PO BID #0 08/22/21 11/07/22 Rx Fluticasone/Umeclidin/Vilanter 1 puff INHALATION RT-DAILY PRN 11/01/21 11/07/22 History [Trelegy Ellipta 100-62.5-25] Nitroglycerin Sl Tabs [Nitrostat] 0.4 mg SUBLINGUAL Q5M PRN 04/16/22 11/07/22 History Furosemide [Lasix] 40 mg PO BID@0900,1600 #60 tab 08/06/22 11/07/22 Rx ALPRAZolam [Xanax] 0.25 mg PO HS 09/16/22 11/07/22 History Acetaminophen Tab [Tylenol] 500 - 1,500 mg PO Q6H PRN 09/16/22 11/07/22 History Albuterol Sulfate [Ventolin HFA] 1 puff INHALATION RT-Q6H PRN 09/16/22 11/07/22 History Gabapentin [Neurontin] 100 mg PO BID 09/16/22 11/07/22 History Collagenase [Santyl Ointment] 1 applic TOPICAL DAILY 30 Days #1 09/23/22 11/07/22 Rx each Escitalopram [Lexapro] 20 mg PO DAILY 10/27/22 11/07/22 History traMADol HCL 50 mg PO HS PRN 10/27/22 11/07/22 History Metoprolol Tartrate [Lopressor] 50 mg PO BID #60 tab 10/31/22 11/07/22 Rx Albuterol Nebulized [Ventolin 2.5 mg INHALATION RT-QID PRN 11/07/22 11/07/22 History Nebulized] Allergies Allergy/AdvReac Type Severity Reaction Status Date / Time sumatriptan [From Imitrex] AdvReac Chest Pain Verified 11/07/22 21:18 Physical Exam Vitals: Vital Signs Temp Pulse Pulse Resp BP BP Pulse Ox 11/08/22 13:30 89 11/08/22 12:18 89 16 154/67 96 11/08/22 09:00 98.2 F 103 H 16 156/81 95 11/08/22 04:00 98.6 F 75 18 133/66 98 11/08/22 00:00 87 18 135/86 98 11/07/22 22:15 98.3 F 73 18 154/65 98 11/07/22 21:35 98.1 F 79 16 132/89 100 11/07/22 18:41 98.7 F 79 18 131/77 99 Intake and Output 11/07/22 11/08/22 11/08/22 22:59 06:59 14:59 Intake Total 29.139 200 Balance 29.139 200 Intake: Intake, IV Titration 29.139 Amount Heparin Sod,Pork in 0.45% 29.139 NaCl 25,000 unit In 0.45 % NaCl 1 250ml.bag @ 12 UNITS/KG/HR 4.79 mls/hr IV .Q24H [facility] Rx#: [id number] Oral 200 Other: Voiding Method Bedpan Bedpan Diaper Diaper Incontinent Incontinent # Voids 1 Weight 39.916 kg 39.916 kg Results 11/08/22 01:45 11/08/22 10:16 Cardiac Enzymes 11/07/22 Range/Units 20:41 AST 60 H (14-36) U/L Coagulation 11/07/22 11/08/22 11/08/22 Range/Units 20:41 01:45 10:16 PT 10.9 11.5 (9.0-12.0) sec APTT 21.0 L 27.6 45.3 H (22.0-30.0) sec CBC 11/07/22 11/08/22 Range/Units 20:41 01:45 WBC 11.4 H 10.1 (3.8-10.6) k/uL RBC 4.10 3.76 L (3.80-5.40) m/uL Hgb 12.4 11.7 (11.4-16.0) gm/dL Hct 39.8 37.1 (34.0-46.0) % Plt Count 203 163 (150-450) k/uL Comprehensive Metabolic Panel 11/07/22 11/08/22 11/08/22 Range/Units 20:41 01:45 10:16 Sodium 135 L 132 L (137-145) mmol/L Potassium 4.3 5.9 H 5.1 (3.5-5.1) mmol/L Chloride 96 L 96 L (98-107) mmol/L Carbon Dioxide 36 H 35 H (22-30) mmol/L BUN 17 16 (7-17) mg/dL Creatinine 0.64 0.52 (0.52-1.04) mg/dL Glucose 88 113 H (74-99) mg/dL Calcium 8.2 L 7.7 L (8.4-10.2) mg/dL AST 60 H (14-36) U/L ALT 130 H (4-34) U/L Alkaline Phosphatase 166 H (38-126) U/L Total Protein 6.1 L (6.3-8.2) g/dL Albumin 3.1 L (3.5-5.0) g/dL Current Medications Generic Name Dose Route Start Last Admin Trade Name Freq PRN Reason Stop Dose Admin Acetaminophen 650 mg 11/07/22 21:05 11/08/22 12:23 Acetaminophen Tab 325 Mg Tab PO 650 mg Q6HR PRN Administration Mild Pain or Fever > 100.5 Acetaminophen 500 mg 11/08/22 10:04 Acetaminophen Tab 500 Mg Tab PO 11/10/22 06:00 Q6H PRN Mild to Moderate Pain (1 - 6) Albuterol Sulfate 2.5 mg 11/08/22 10:08 Albuterol Nebulized 2.5 Mg/3 Ml INHALATION RT-QID PRN Shortness Of Breath Albuterol Sulfate 1 puff 11/08/22 10:08 Albuterol Hfa Inhaler INHALATION RT-Q6H PRN Shortness Of Breath Alprazolam 0.25 mg 11/08/22 21:00 Alprazolam 0.25 Mg Tab PO HS [facility] Budesonide/Formoterol Fumarate 2 puff 11/08/22 20:00 Symbicort 80-4.5 Mcg Inhaler INHALATION RT-BID PRN Shortness Of Breath Escitalopram Oxalate 20 mg 11/09/22 09:00 Escitalopram 20 Mg Tab PO DAILY [facility] ANNE Furosemide 40 mg 11/08/22 16:00 Furosemide 40 Mg Tab PO BID@0900,1600 [facility] Gabapentin 100 mg 11/08/22 21:00 Gabapentin 100 Mg Cap PO BID MARY ANNE Heparin Sodium (Porcine) 0 unit 11/07/22 19:41 11/08/22 03:05 Heparin Sodium 1,000 Un/Ml (10ml Vl) IV 4,000 unit PER PROTOCOL PRN Administration Low PTT Protocol Heparin Sodium/Sodium Chloride 250 mls @ 4.79 mls/hr 11/07/22 19:45 11/08/22 03:00 25,000 unit/ Sodium Chloride IV 15 units/kg/hr .Q24H MARY ANNE 5.987 mls/hr Titration Protocol 12 UNITS/KG/HR Ipratropium [place] 0.5 mg 11/08/22 10:08 Ipratropium 0.5 Mg/2.5 Ml Nebu INHALATION RT-QID PRN Shortness Of Breath Metoprolol Tartrate 50 mg 11/08/22 21:00 Metoprolol Tartrate 50 Mg Tab PO BID [facility] Morphine Sulfate 4 mg 11/07/22 21:05 11/08/22 09:51 Morphine Sulfate 4 Mg/Ml Syringe IV 4 mg Q4HR PRN Administration Severe Pain (Scale 7 to 10) Naloxone HCl 0.2 mg 11/07/22 21:05 Naloxone 0.4 Mg/Ml 1 Ml Vial IV Q2M PRN Opioid Reversal Nitroglycerin 0.4 mg 11/08/22 10:08 Nitroglycerin Sl Tabs 0.4 Mg Tab SUBLINGUAL Q5M PRN Chest Pain Intake and Output 11/07/22 11/08/22 11/08/22 22:59 06:59 14:59 Intake Total 29.139 200 Balance 29.139 200 Intake: Intake, IV Titration 29.139 Amount Heparin Sod,Pork in 0.45% 29.139 NaCl 25,000 unit In 0.45 % NaCl 1 250ml.bag @ 12 UNITS/KG/HR 4.79 mls/hr IV .Q24H [facility] Rx#: [id number] Oral 200 Other: Voiding Method Bedpan Bedpan Diaper Diaper Incontinent Incontinent # Voids 1 Weight 39.916 kg 39.916 kg Patient Weight 11/09/22 06:59 Weight 39.916 kg 11/08/22 01:45 11/08/22 10:16
--- NOTE | 2022-11-08 16:43 | P.NPCON ---
History of Present Illness - Reason for Consult hyperkalemia - History of Present Illness Patient is a 77 yr old female with h/o PVD, Afib, CAD, admitted with c/o pain in left foot with discoloration and swelling. Noted to have significant cellulitis and bullae formation. Toes are discolored dark, almost black. Right foot is also erythematous. Maintained on IV heparin. Being followed by vascular surgery. K was 5.9 yesterday, decreased to 5.1 today. Voiding on her own. No АНДРЕЙ/I noted or NSAIDs Treated with IV cocktail and kayexalate. Past Medical History Past Medical History: Atrial Fibrillation, Coronary Artery Disease (CAD), Cancer, Heart Failure, COPD, CVA/TIA, Hyperlipidemia, Hypertension, Mitral Valve Prolapse (MVP), Neurologic Disorder, Osteoarthritis (OA), Pneumonia, Skin Disorder, Sleep Apnea/CPAP/BIPAP, Vascular Disorder Additional Past Medical History / Comment(s): right breast cancer (mastectomy november 2021).,. Multiple Sclerosis. ,PAD hx chronic wounds left foot/lower leg now healed., states feet are red & purple in color, edema both feet., peripheral neuropathy., CVA x2 Jul/Aug 2021 gait unsteady-uses w/c., generalized weakness., hx anemia with iron infusions., hx hospitalization for collapsed lung and respiratory failure with intubation., states lump on her vocal cord.,. oxygen at 2.5-4 L prn, sleep apnea (no machine) History of Any Multi-Drug Resistant Organisms: None Reported Past Surgical History: Appendectomy, Breast Surgery, Coronary Bypass/CABG, Heart Catheterization With Stent, Orthopedic Surgery, Tonsillectomy Additional Past Surgical History / Comment(s): 08/17/21 surgery at [place] for mass upper back., 11/2020 CABG 4 vessel, PCI/stents in , bilateral iliac arthrectomy/stents ., left foot wound debridements, bronchoscopy/lavage, bilateral breast biopsies, D&C, lumpectomy right breast 08/2021. Right ma stectomy (11/26/21) Past Anesthesia/Blood Transfusion Reactions: No Reported Reaction, Motion Sickness Additional Past Anesthesia/Blood Transfusion Reaction / Comment(s): No hx blood transfusion. Date of Last Stent Placement:: 2008 Past Psychological History: Anxiety, Depression Smoking Status: Current every day smoker Past Alcohol Use History: None Reported Past Drug Use History: None Reported - Past Family History Father Family Medical History: No Reported History Additional Family Medical History / Comment(s): alcoholism, deseased. Mother Family Medical History: Cancer Additional Family Medical History / Comment(s): Breast and brain cancer. Medications and Allergies Home Medications Medication Instructions Recorded Confirmed Type Apixaban [Eliquis] 5 mg PO BID #0 08/22/21 11/07/22 Rx Fluticasone/Umeclidin/Vilanter 1 puff INHALATION RT-DAILY PRN 11/01/21 11/07/22 History [Trelegy Ellipta 100-62.5-25] Nitroglycerin Sl Tabs [Nitrostat] 0.4 mg SUBLINGUAL Q5M PRN 04/16/22 11/07/22 History Furosemide [Lasix] 40 mg PO BID@0900,1600 #60 tab 08/06/22 11/07/22 Rx ALPRAZolam [Xanax] 0.25 mg PO HS 09/16/22 11/07/22 History Acetaminophen Tab [Tylenol] 500 - 1,500 mg PO Q6H PRN 09/16/22 11/07/22 History Albuterol Sulfate [Ventolin HFA] 1 puff INHALATION RT-Q6H PRN 09/16/22 11/07/22 History Gabapentin [Neurontin] 100 mg PO BID 09/16/22 11/07/22 History Collagenase [Santyl Ointment] 1 applic TOPICAL DAILY 30 Days #1 09/23/22 11/07/22 Rx each Escitalopram [Lexapro] 20 mg PO DAILY 10/27/22 11/07/22 History traMADol HCL 50 mg PO HS PRN 10/27/22 11/07/22 History Metoprolol Tartrate [Lopressor] 50 mg PO BID #60 tab 10/31/22 11/07/22 Rx Albuterol Nebulized [Ventolin 2.5 mg INHALATION RT-QID PRN 11/07/22 11/07/22 History Nebulized] Allergies Allergy/AdvReac Type Severity Reaction Status Date / Time sumatriptan [From Imitrex] AdvReac Chest Pain Verified 11/07/22 21:18 Physical Exam Vitals: Vital Signs Temp Pulse Pulse Resp BP BP Pulse Ox 11/08/22 15:14 98.9 F 91 16 148/75 97 11/08/22 13:30 89 11/08/22 12:18 89 16 154/67 96 11/08/22 09:00 98.2 F 103 H 16 156/81 95 11/08/22 04:00 98.6 F 75 18 133/66 98 11/08/22 00:00 87 18 135/86 98 11/07/22 22:15 98.3 F 73 18 154/65 98 11/07/22 21:35 98.1 F 79 16 132/89 100 11/07/22 18:41 98.7 F 79 18 131/77 99 Intake and Output 11/08/22 11/08/22 11/08/22 06:59 14:59 22:59 Intake Total 29.139 200 Balance 29.139 200 Intake: Intake, IV Titration 29.139 Amount Heparin Sod,Pork in 0.45% 29.139 NaCl 25,000 unit In 0.45 % NaCl 1 250ml.bag @ 12 UNITS/KG/HR 4.79 mls/hr IV .Q24H [facility] Rx#: [id number] Oral 200 Other: Voiding Method Bedpan Bedpan Diaper Diaper Incontinent Incontinent # Voids 1 3 Weight 39.916 kg Awake, comfortable, A and O x3 Lungs are clear. CVS S1 and S2 Abdomen is soft, nontender. Lower extremities show discolored toes left foot, dark in color, induration+, right foot is also erythematous. Results - Lab Results Most recent lab results Calcium 7.7 mg/dL (8.4-10.2) L 11/08/22 01:45 11/08/22 01:45 11/08/22 10:16 Assessment and Plan Assessment: 1. Hyperkalemia secondary to left ischemic toes, ? gangrene, improved. R/o urine retention. 2. Left foot ischemic changes, being followed by Vasc Sx. Aortogram to be scheduled. 3. CAD, s/p CABG 4. A fib, controlled rate. Plan: Check post void residual Repeat labs in am. Low potassium diet. Continue to avoid NSAIDs
[2022-11-08] MEDS ORDERED: SYMBICORT 80-4.5 MCG INHALER INHALATION PRN (20:00)
[2022-11-08] MEDS: METOPROLOL TARTRATE 50 MG TAB PO SCH (20:27)
[2022-11-08] MEDS: GABAPENTIN 100 MG CAP PO SCH (20:27)
[2022-11-08] MEDS: HEPARIN SOD,PORK IN 0.45% NACL 25,000 UNIT in 0.45% NACL 1 250ML.BAG IV SCH (21:58)
[2022-11-08] MEDS: ALPRAZolam 0.25 MG TAB PO SCH (21:59)
[2022-11-09] MEDS: METOPROLOL TARTRATE 50 MG TAB PO SCH ×2 (08:59→20:20)
[2022-11-09] MEDS: ESCITALOPRAM 20 MG TAB PO SCH (08:59)
[2022-11-09] MEDS: HEPARIN SOD,PORK IN 0.45% NACL 25,000 UNIT in 0.45% NACL 1 250ML.BAG IV SCH (08:59)
[2022-11-09] MEDS: GABAPENTIN 100 MG CAP PO SCH ×2 (08:59→20:20)
[2022-11-09] MEDS: FUROSEMIDE 40 MG TAB PO SCH ×2 (08:59→15:17)
[2022-11-09] MEDS: MORPHINE SULFATE 4 MG/ML SYRINGE IV PRN ×3 (09:00→18:25)
[2022-11-09 09:16] LABS: Basophils % (A) 0 %; Eosinophils # (A) 0.1 k/uL (0-0.7); Eosinophils % (A) 1 %; HCT 35.7 % (34.0-46.0); HGB 11.2 gm/dL (11.4-16.0); Hypochromasia Marked; Lymphocytes # (A) 1.4 k/uL (1.0-4.8); Lymphocytes % (A) 14 %; MCH 31.2 pg (25.0-35.0); MCHC 31.4 g/dL (31.0-37.0); MCV 99.3 fL (80.0-100.0); Macrocytosis Slight; Mean Platelet Volume 11.5; Monocytes # (A) 0.5 k/uL (0-1.0); Monocytes % (A) 5 %; Neutrophils # (A) 7.8 k/uL (1.3-7.7); Neutrophils % (A) 80 %; Platelet Count 150 k/uL (150-450); Poikilocytosis Slight; RBC 3.59 m/uL (3.80-5.40); RDW 15.6 % (11.5-15.5); WBC 9.8 k/uL (3.8-10.6)
--- NOTE | 2022-11-09 10:22 | P.PN ---
Subjective Patient is seen for follow-up for hyperkalemia. Etiology is significant left lower extremity ischemia with gangrene and cellulitis. Patient is being followed by vascular surgery Potassium was 5.1 yesterday. Labs are pending from today. Patient is voiding well. No urine retention noted. Objective - Vital Signs Vital signs: Vital Signs Temp 97.7 F 11/09/22 08:41 Pulse 78 11/09/22 08:41 Resp 16 11/09/22 08:41 BP 135/58 11/09/22 08:41 Pulse Ox 94 L 11/09/22 08:41 FiO2 Intake & Output 11/08/22 11/09/22 11/09/22 18:59 06:59 18:59 Intake Total 318 185.297 Output Total 400 Balance -82 185.297 Weight 39.916 kg Intake: Intake, IV Titration 185.297 Amount Heparin Sod,Pork in 0.45% 185.297 NaCl 25,000 unit In 0.45 % NaCl 1 250ml.bag @ 12 UNITS/KG/HR 4.79 mls/hr IV .Q24H [facility] Rx#: [id number] Oral 318 Output: Urine 400 Other: Voiding Method Bedpan Diaper Bedpan Diaper External Catheter Diaper Incontinent External Catheter # Voids 3 1 1 - Exam Awake, comfortable, A and O x3 Lungs are clear. CVS S1 and S2 Abdomen is soft, nontender. Lower extremities show discolored toes left foot, dark in color, induration+, right foot is also erythematous. - Labs CBC & Chem 7: 11/09/22 08:45 11/08/22 10:16 Labs: Abnormal Lab Results - Last 24 Hours (Table) 11/08/22 11/09/22 11/09/22 Range/Units 10:16 08:45 08:45 RBC 3.59 L (3.80-5.40) m/uL Hgb 11.2 L (11.4-16.0) gm/dL RDW 15.6 H (11.5-15.5) % APTT 45.3 H 34.3 H (22.0-30.0) sec Assessment and Plan Assessment: 1. Hyperkalemia secondary to left ischemic toes, possible gangrene, improved. No urine retention 2. Left foot ischemic changes, being followed by Vasc Sx. Aortogram to be scheduled. 3. CAD, s/p CABG 4. A fib, controlled rate. Plan: Check post void residual Repeat labs Low potassium diet. Continue to avoid NSAIDs
--- NOTE | 2022-11-09 10:22 | P.PN ---
Subjective Progress Note Date: 11/09/22 Patient seen and examined. No complaints. Resting comfortably. Objective - Vital Signs Vital signs: Vital Signs Temp 97.7 F 11/09/22 08:41 Pulse 78 11/09/22 08:41 Resp 16 11/09/22 08:41 BP 135/58 11/09/22 08:41 Pulse Ox 94 L 11/09/22 08:41 FiO2 Intake & Output 11/08/22 11/09/22 11/09/22 18:59 06:59 18:59 Intake Total 318 185.297 Output Total 400 Balance -82 185.297 Weight 39.916 kg Intake: Intake, IV Titration 185.297 Amount Heparin Sod,Pork in 0.45% 185.297 NaCl 25,000 unit In 0.45 % NaCl 1 250ml.bag @ 12 UNITS/KG/HR 4.79 mls/hr IV .Q24H [facility] Rx#: [id number] Oral 318 Output: Urine 400 Other: Voiding Method Bedpan Diaper Bedpan Diaper External Catheter Diaper Incontinent External Catheter # Voids 3 1 1 - Exam No acute distress resting comfortably. Pillow under the knees. Bilateral lower extremities slightly improved in coloration. Still with cyanotic changes to her great toe and distal tips of her second and third toes on the left. Bullae much improved. - Labs CBC & Chem 7: 11/09/22 08:45 11/08/22 10:16 Labs: Abnormal Lab Results - Last 24 Hours (Table) 11/08/22 11/09/22 11/09/22 Range/Units 10:16 08:45 08:45 RBC 3.59 L (3.80-5.40) m/uL Hgb 11.2 L (11.4-16.0) gm/dL RDW 15.6 H (11.5-15.5) % APTT 45.3 H 34.3 H (22.0-30.0) sec Assessment and Plan Assessment: #1. Left lower extremity discoloration and bullae 2. Chronic peripheral arterial disease 3. Chronic lower extremity wounds 3. History of bilateral iliac stents, patent on recent computed tomography scan 4. Weakness 5. Acute kidney injury 6. Atrial fibrillation 7. History of TIA Plan: Discussion had with the patient, we'll plan for angiogram a.m. 11/11. We will hold heparin at midnight prior to this and nothing by mouth at midnight on Thursday. Continue local care, will obtain medical boot so she does not obtain heel wounds
[2022-11-09] MEDS: ACETAMINOPHEN TAB 325 MG TAB PO PRN (10:39)
[2022-11-09] MEDS ORDERED: AMINOPHYLLINE 500 MG/20 ML VIAL IV PRN (10:52)
[2022-11-09] MEDS ORDERED: CAFFEINE CITRATE 60 MG/3 ML VIAL IV PRN (10:52)
[2022-11-09] MEDS ORDERED: diphenhydrAMINE 25 MG CAP PO STA (11:55)
[2022-11-09 12:28] LABS: AST 69 U/L (14-36); African American GFR (CKD) >90 (>60 ml/min/1.73 sqM); Albumin 2.5 g/dL (3.5-5.0); Anion Gap -1 mmol/L; Blood Urea Nitrogen 13 mg/dL (7-17); Calcium 7.4 mg/dL (8.4-10.2); Carbon Dioxide 32 mmol/L (22-30); Chloride 99 mmol/L (98-107); Non-African American GFR(CKD) >90 (>60 ml/min/1.73 sqM); Sodium 130 mmol/L (137-145); Total Bilirubin 1.3 mg/dL (0.2-1.3); Total Protein 5.4 g/dL (6.3-8.2)
--- NOTE | 2022-11-09 13:47 | P.PN ---
Subjective Progress Note Date: 11/09/22 This is a 77-year-old female past medical history significant for peripheral vascular disease, AAme bowers who was recently admitted for CHF exacerbation as well as hepatic congestion with transaminitis presented to the ER for increased discoloration to her toes .Patient has severe peripheral vascular disease and managed by vascular surgery along with wound care in the outpatient setting. Patient was seen and evaluated recently underwent CT aNGiO with runoff with no plans for immediate intervention and was placed back on anticoagulation, vascular surgery were planning intervention once cleared by cardiology. Patient was discharged on Thursday, beginning Thursday she started noticing blister on her left foot followed by bluish discoloration of her toes, wound care nurse was following up on her and she told her to come to ER. Initial lab work in the ER showed white count of 11.4, hemoglobin of 12.4, pl atelet count 203, sodium 135, potassium 4.3, chloride 96, carbon dioxide 36, BUN 17, creatinine 0.64 11/09. Patient seen and examined. States left foot pain has improved. WBCs 9.8, hemoglobin 11.2, sodium 130, BUN 30,. REVIEW OF SYSTEMS: CONSTITUTIONAL: No fever, no malaise,. CARDIOVASCULAR: No chest pain, no palpitations, no syncope. PULMONARY: No shortness of breath, no cough, GASTROINTESTINAL: No diarrhea, no nausea, no vomiting, no abdominal pain. NEUROLOGICAL: No headaches, no weakness, PHYSICAL EXAMINATION: GENERAL: The patient is alert and oriented x3, not in any acute distress. Well developed, well nourished. HEENT: Pupils are round and equally reacting to light. EOMI. No scleral icterus. No conjunctival pallor. Normocephalic, atraumatic. No pharyngeal erythema. No thyromegaly. CARDIOVASCULAR: S1 and S2 present. No murmurs, rubs, or gallops. PULMONARY: Chest is clear to auscultation, no wheezing or crackles. ABDOMEN: Soft, nontender, nondistended, normoactive bowel sounds. No palpable organomegaly. MUSCULOSKELETAL: No joint swelling or deformity. EXTREMITIES: Left foot blister noticeable on the dorsum of the foot, bluish discoloration noticeable NEUROLOGICAL: Gross neurological examination did not reveal any focal deficits. SKIN: No rashes. Assessment and plan Acute left limb ischemia of left foot Left lower extremity discoloration and bullae Peripheral vascular disease Hypertension Chronic hypoxic respiratory failure Chronic systolic CHF -Transaminitis Hyperkalemia -Atrial fibrillation paroxysmal -Hyperlipidemia -Hypertension -Coronary artery disease with stents in the past and CABG in the past Plan; Monitor vital signs Monitor CBC next monitor CMP Continue pharmacy dose heparin Low potassium diet. Vascular surgery on board for acute limb ischemia, they're planning possible angiogram Cardiology consulted for cardiac clearance, they ordered a Lexiscan for preoperative clearance, scheduled for Thursday morning, nothing by mouth after midnight Follow-up in nephrology recommendations Objective - Vital Signs Vital signs: Vital Signs Temp 97.7 F 11/09/22 08:41 Pulse 64 11/09/22 13:14 Resp 16 11/09/22 11:45 BP 134/66 11/09/22 11:45 Pulse Ox 94 L 11/09/22 11:45 FiO2 Intake & Output 11/08/22 11/09/22 11/09/22 18:59 06:59 18:59 Intake Total 318 185.297 Output Total 400 Balance -82 185.297 Weight 39.916 kg Intake: Intake, IV Titration 185.297 Amount Heparin Sod,Pork in 0.45% 185.297 NaCl 25,000 unit In 0.45 % NaCl 1 250ml.bag @ 12 UNITS/KG/HR 4.79 mls/hr IV .Q24H [facility] Rx#: [id number] Oral 318 Output: Urine 400 Other: Voiding Method Bedpan Diaper Bedpan Diaper External Catheter Diaper Incontinent External Catheter # Voids 3 1 1 - Labs CBC & Chem 7: 11/09/22 08:45 11/09/22 12:01 Labs: Abnormal Lab Results - Last 24 Hours (Table) 11/09/22 11/09/22 11/09/22 Range/Units 08:45 08:45 12:01 RBC 3.59 L (3.80-5.40) m/uL Hgb 11.2 L (11.4-16.0) gm/dL RDW 15.6 H (11.5-15.5) % Neutrophils # 7.8 H (1.3-7.7) k/uL APTT 34.3 H (22.0-30.0) sec Sodium 130 L (137-145) mmol/L Carbon Dioxide 32 H (22-30) mmol/L Calcium 7.4 L (8.4-10.2) mg/dL AST 69 H (14-36) U/L Total Protein 5.4 L (6.3-8.2) g/dL Albumin 2.5 L (3.5-5.0) g/dL
--- NOTE | 2022-11-09 14:14 | P.PN ---
Subjective Progress Note Date: 11/09/22 History of present illness: Patient has a pleasant 77-year-old female with significant past medical history of PVD, atrial fibrillation on Eliquis, breast cancer, CABG 4 vessels 11/2020, COPD, multiple sclerosis, status post PCI , ischemic cardiomyopathy, CVA, PAD status post prior angioplasty who presented to the emergency department with worsening discoloration of left foot and toes. She was recently admitted last week for the same for who she saw vascular surgery Dr. Tadeo. She sees Dr. Adame as her patient care assistant in the office. Cardiology was consulted for cardiac clearance for possible surgery. Patient reports that she has been dealing with issues with her left foot for the past 1 month, she also has a wound on the right lower extremity. She had an echo during her previous admission that revealed EF 3540%, moderate LVH, moderate mitral insufficiency and moderate tricuspid insufficiency. Her activity has been limited over the past 1 month due to her foot issues. She reports feeling short of breath, this is chronic and stable per her report. She denies any chest pain or palpitations. She does have complaints of dizziness. Labs reviewed: WBC 10.1, hemoglobin 1 1.7, potassium 5.1, creatinine 0.52. She is currently on a heparin drip and getting Lasix 40 mg by mouth twice a day. She is still smoking. She has not had a recent stress test. 11/09 Patient reports pain in bilateral feet. She denies any chest pain or shortness of breath. AM labs are pending. PHYSICAL EXAMINATION: This is a 77 year-old email in no apparent distress at the time of my examination. HEENT: Head is atraumatic, normocephalic. Pupils are equal, round. Sclerae anicteric. Conjunctivae are clear. Mucous membranes of the mouth are moist. Neck is supple. There is no jugular venous distention. No carotid bruit is heard. CHEST EXAMINATION: Lungs are clear to auscultation. No chest wall tenderness is noted on palpation or with deep breathing. HEART EXAMINATION: Heart regular rate and rhythm. S1, S2 heard. No murmurs, gallops or rub. ABDOMEN: Soft, nontender. Bowel sounds are heard. EXTREMITIES: Left foot with large blister on top, digits 1 through 3 are purple/black, pitting edema. Right foot toes are a deeper red color, pitting edema, right painter is wrapped in Kerlix. NEUROLOGIC EXAMINATION: Patient is awake, alert and oriented x3. IMPRESSION AND PLAN: Atrial fibrillation, on anticoagulation Ischemic cardiomyopathy, current EF 3540% Status post CABG 4 vessel 11/2020 and status post prior PCI PAD PVD Tobacco abuse PLAN: Vascular surgery planning for angiogram 11/11. We will check a Lexiscan stress test for preoperative clearance, this is be done on Thursday, nothing by mouth after midnight on Thursday night. Smoking cessation was strongly emphasized. We will follow. I am dictating on behalf of Dr. Seamus Jones's history/physical and assessment/plan. Objective - Vital Signs Vital signs: Vital Signs Temp 97.7 F 11/09/22 08:41 Pulse 78 11/09/22 08:41 Resp 16 11/09/22 08:41 BP 135/58 11/09/22 08:41 Pulse Ox 94 L 11/09/22 08:41 FiO2 Intake & Output 11/08/22 11/09/22 11/09/22 18:59 06:59 18:59 Intake Total 318 185.297 Output Total 400 Balance -82 185.297 Weight 39.916 kg Intake: Intake, IV Titration 185.297 Amount Heparin Sod,Pork in 0.45% 185.297 NaCl 25,000 unit In 0.45 % NaCl 1 250ml.bag @ 12 UNITS/KG/HR 4.79 mls/hr IV .Q24H [facility] Rx#: [id number] Oral 318 Output: Urine 400 Other: Voiding Method Bedpan Diaper Bedpan Diaper External Catheter Diaper Incontinent External Catheter # Voids 3 1 1 - Labs CBC & Chem 7: 11/09/22 08:45 11/08/22 10:16 Labs: Abnormal Lab Results - Last 24 Hours (Table) 11/08/22 11/09/22 11/09/22 Range/Units 10:16 08:45 08:45 RBC 3.59 L (3.80-5.40) m/uL Hgb 11.2 L (11.4-16.0) gm/dL RDW 15.6 H (11.5-15.5) % Neutrophils # 7.8 H (1.3-7.7) k/uL APTT 45.3 H 34.3 H (22.0-30.0) sec
[2022-11-09] MEDS: ALPRAZolam 0.25 MG TAB PO SCH (20:20)
[2022-11-10 06:54] LABS: Basophils % (A) 0 %; Eosinophils # (A) 0.1 k/uL (0-0.7); Eosinophils % (A) 1 %; HCT 36.5 % (34.0-46.0); HGB 11.3 gm/dL (11.4-16.0); Hypochromasia Marked; Lymphocytes # (A) 1.3 k/uL (1.0-4.8); Lymphocytes % (A) 15 %; MCH 30.6 pg (25.0-35.0); MCHC 30.8 g/dL (31.0-37.0); MCV 99.2 fL (80.0-100.0); Macrocytosis Slight; Mean Platelet Volume 8.2; Monocytes # (A) 0.4 k/uL (0-1.0); Monocytes % (A) 5 %; Neutrophils % (A) 78 %; Platelet Count 180 k/uL (150-450); Poikilocytosis Slight; RBC 3.68 m/uL (3.80-5.40); RDW 15.3 % (11.5-15.5); WBC 8.9 k/uL (3.8-10.6)
[2022-11-10] MEDS ORDERED: REGADENOSON 0.4 MG/5 ML SYRINGE IV PRN (07:00)
[2022-11-10 07:08] LABS: ALT 68 U/L (4-34); AST 38 U/L (14-36); African American GFR (CKD) >90 (>60 ml/min/1.73 sqM); Albumin 2.4 g/dL (3.5-5.0); Alkaline Phosphatase 109 U/L (38-126); Anion Gap -1 mmol/L; Blood Urea Nitrogen 12 mg/dL (7-17); Calcium 7.9 mg/dL (8.4-10.2); Carbon Dioxide 37 mmol/L (22-30); Chloride 98 mmol/L (98-107); Glucose 79 mg/dL (74-99); Non-African American GFR(CKD) >90 (>60 ml/min/1.73 sqM); Sodium 134 mmol/L (137-145); Total Bilirubin 0.8 mg/dL (0.2-1.3); Total Protein 5.1 g/dL (6.3-8.2)
[2022-11-10] MEDS: FUROSEMIDE 40 MG TAB PO SCH ×2 (08:13→13:58)
[2022-11-10] MEDS: MORPHINE SULFATE 4 MG/ML SYRINGE IV PRN ×3 (08:13→20:17)
[2022-11-10] MEDS: GABAPENTIN 100 MG CAP PO SCH ×2 (08:13→20:17)
[2022-11-10] MEDS: METOPROLOL TARTRATE 50 MG TAB PO SCH ×3 (08:13→20:17)
[2022-11-10] MEDS: ESCITALOPRAM 20 MG TAB PO SCH (08:13)
[2022-11-10] MEDS ORDERED: REGADENOSON 0.4 MG/5 ML SYRINGE IV ONE (09:00)
--- NOTE | 2022-11-10 10:41 | P.PN ---
Subjective Patient is seen in follow-up for hyperkalemia. Potassium level normal today. Renal function at baseline. Denies chest pain or shortness of breath. Scheduled for stress test today. Vital signs are stable. General: No acute distress. HEENT: Head exam is unremarkable. LUNGS: No audible rhonchi or wheezes. HEART: Rate and Rhythm are regular. ABDOMEN: No distention. EXTREMITITES: No edema. Objective - Vital Signs Vital signs: Vital Signs Temp 97.7 F 11/10/22 08:00 Pulse 62 11/10/22 08:00 Resp 18 11/10/22 08:00 BP 129/62 11/10/22 08:00 Pulse Ox 94 L 11/10/22 08:00 FiO2 Intake & Output 11/09/22 11/10/22 11/10/22 18:59 06:59 18:59 Intake Total 665.297 Output Total 700 850 Balance -34.703 -850 Intake: Intake, IV Titration 185.297 Amount Heparin Sod,Pork in 0.45% 185.297 NaCl 25,000 unit In 0.45 % NaCl 1 250ml.bag @ 12 UNITS/KG/HR 4.79 mls/hr IV .Q24H [facility] Rx#: [id number] Oral 480 Output: Urine 700 850 Other: Voiding Method Bedpan Bedpan Diaper Diaper External Catheter External Catheter # Voids 1 # Bowel Movements 1 - Labs CBC & Chem 7: 11/10/22 06:36 11/10/22 06:36 Labs: Abnormal Lab Results - Last 24 Hours (Table) 11/09/22 11/09/22 11/10/22 Range/Units 12:01 15:17 06:36 RBC 3.68 L (3.80-5.40) m/uL Hgb 11.3 L (11.4-16.0) gm/dL MCHC 30.8 L (31.0-37.0) g/dL APTT 47.5 H (22.0-30.0) sec Sodium 130 L (137-145) mmol/L Carbon Dioxide 32 H (22-30) mmol/L Calcium 7.4 L (8.4-10.2) mg/dL AST 69 H (14-36) U/L ALT (4-34) U/L Total Protein 5.4 L (6.3-8.2) g/dL Albumin 2.5 L (3.5-5.0) g/dL 11/10/22 11/10/22 Range/Units 06:36 06:36 RBC (3.80-5.40) m/uL Hgb (11.4-16.0) gm/dL MCHC (31.0-37.0) g/dL APTT 42.9 H (22.0-30.0) sec Sodium 134 L (137-145) mmol/L Carbon Dioxide 37 H (22-30) mmol/L Calcium 7.9 L (8.4-10.2) mg/dL AST 38 H (14-36) U/L ALT 68 H (4-34) U/L Total Protein 5.1 L (6.3-8.2) g/dL Albumin 2.4 L (3.5-5.0) g/dL Assessment and Plan Plan: Assessment: 1. Hyperkalemia. All the elevated potassium levels were hemolyzed samples. Today's sample is not hemolyzed and potassium level is completely normal. 2. Lower extremity gangrene/cellulitis. Being followed by vascular surgery. 3. Ischemic cardiomyopathy with ejection fraction of 35-40%. 4. Coronary artery disease status post PCI and CABG. Plan: Monitor labs periodically.
--- NOTE | 2022-11-10 12:36 | P.PN ---
Subjective Progress Note Date: 11/10/22 History of Present Illness: The patient is a 77-year-old female known history of CAD, status post CABG, hi story of severe PAD who presented with worsening ischemic left foot. She is scheduled to undergo angiogram and possible surgical intervention tomorrow. She's feeling well this morning, she denies any chest discomfort, dizziness or palpitations. She is supine without any shortness of breath. She has a known history of chronic tobacco use. She has a history of cardiomyopathy. She underwent an MPI today and the results are pending. Her echocardiogram showed an ejection fraction of 35-40% with moderate mitral regurgitation. She had her bypass in November 2020 and received a BAUTISTA to the LAD, SVG to the OM and to the RCA. She has a known history of chronic kidney disease Medications: Furosemide 40 mg twice a day, Neurontin, IV heparin, metoprolol 50 mg twice a day, Lexapro Review of Systems: Respiratory: She has dyspnea on exertion was chronic tobacco use GI: No nausea or vomiting . No history of peptic ulcer disease. No recent GI bleed. : No hematuria or dysuria. Nervous System: No stroke or seizure. Physical Examination: 77-year-old female, alert and oriented no apparent distress ,Blood pressure 129/60, Heart rate 62 Head: Normocephalic. Eyes: Sclerae nonicteric. Neck: Good carotid upstroke, no bruit, no jugular venous distention. Lungs: Clear to auscultation. Heart: Regular rate and rhythm, S1-S2, no S3, no rub. Systolic ejection murmur. Abdomen: Soft nontender, positive bowel sounds no organomegaly. Extremities: Large blister on the left foot and digits 1-3, black with 1+ edema, right foot right Labs: BUN 12, creatinine 0.57, potassium 4.0, hemoglobin 11.3 Impression: 1. Severe peripheral disease with severe ischemic changes of the left foot 2. Status post CABG 3. Ischemic cardiomyopathy 4. Paroxysmal atrial fibrillation 5. Chronic tobacco use 6. Renal failure improved Plan: 1. Add statin 2. Start low dose beta patti 3. Review the results of the nuclear scan 4. Depending on her progress further recommendations will be made 5. Prognosis is guarded Objective - Vital Signs Vital signs: Vital Signs Temp 97.7 F 11/10/22 08:00 Pulse 62 11/10/22 08:00 Resp 18 11/10/22 08:00 BP 129/62 11/10/22 08:00 Pulse Ox 94 L 11/10/22 08:00 FiO2 Intake & Output 11/09/22 11/10/22 11/10/22 18:59 06:59 18:59 Intake Total 665.297 Output Total 700 850 Balance -34.703 -850 Intake: Intake, IV Titration 185.297 Amount Heparin Sod,Pork in 0.45% 185.297 NaCl 25,000 unit In 0.45 % NaCl 1 250ml.bag @ 12 UNITS/KG/HR 4.79 mls/hr IV .Q24H [facility] Rx#: [id number] Oral 480 Output: Urine 700 850 Other: Voiding Method Bedpan Bedpan Diaper Diaper External Catheter External Catheter # Voids 1 # Bowel Movements 1 - Labs CBC & Chem 7: 11/10/22 06:36 11/10/22 06:36 Labs: Abnormal Lab Results - Last 24 Hours (Table) 11/09/22 11/09/22 11/10/22 Range/Units 12:01 15:17 06:36 RBC 3.68 L (3.80-5.40) m/uL Hgb 11.3 L (11.4-16.0) gm/dL MCHC 30.8 L (31.0-37.0) g/dL APTT 47.5 H (22.0-30.0) sec Sodium 130 L (137-145) mmol/L Carbon Dioxide 32 H (22-30) mmol/L Calcium 7.4 L (8.4-10.2) mg/dL AST 69 H (14-36) U/L ALT (4-34) U/L Total Protein 5.4 L (6.3-8.2) g/dL Albumin 2.5 L (3.5-5.0) g/dL 11/10/22 11/10/22 Range/Units 06:36 06:36 RBC (3.80-5.40) m/uL Hgb (11.4-16.0) gm/dL MCHC (31.0-37.0) g/dL APTT 42.9 H (22.0-30.0) sec Sodium 134 L (137-145) mmol/L Carbon Dioxide 37 H (22-30) mmol/L Calcium 7.9 L (8.4-10.2) mg/dL AST 38 H (14-36) U/L ALT 68 H (4-34) U/L Total Protein 5.1 L (6.3-8.2) g/dL Albumin 2.4 L (3.5-5.0) g/dL
--- NOTE | 2022-11-10 12:37 | P.CONS ---
History of Present Illness - Reason for Consult Consult date: 11/10/22 wound care - History of Present Illness Physical 77-year-old female known to the wound care center with a nonhealing ulceration to the right anterior lower extremity. Original cause of wound was Trauma. The date acquired was: 07/09/2022. The wound has been in treatment 1 weeks. The wound is currently classified as a Full Thickness Without Exposed Support Structures wound with etiology of To be determined and is located on the Right,Anterior Lower Leg. The wound measures 6.4cm length x 3.8cm width x 0.3cm depth; 19.101cm^2 area and 5.73cm^3 volume. The wound is limited to skin breakdown. There is no tunneling or undermining noted. There is a medium amount of serous drainage noted. The wound margin is distinct with the outline attached to the wound base. There is no granulation within the wound bed. There is a larg e (67-100%) amount of necrotic tissue within the wound bed including Adherent Slough. The periwound skin appearance had no abnormalities noted for texture. The periwound skin appearance had no abnormalities noted for color. The periwound skin appearance exhibited: Dry/Scaly. The periwound skin appearance did not exhibit: Maceration. Periwound temperature was noted as No Abnormality Review Of Systems: Constitutional: No fever, no chills, no night sweats. No weight change. No weakness, fatigue or lethargy. No daytime sleepiness. Integumentary:reports wounds, no lesions. No rash or pruritus. No unusual bruising. No change in hair or nails. Physical exam: General Appearance: Alert, cooperative, no distress, appears stated age. Skin: See HPI all other Skin color, texture, tugor normal, no rashes or lesions. Neurologic: Alert oriented x3 Assessment: 1. 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 Apply Santyl, saline moistened gauze, dry gauze, rolled gauze and secure with paper tape. Change daily. Patient will return to the wound care center on 11/17 at 10:15 Thank you for the consultation any questions please contact the wound care center DNP note has been reviewed and discussed with Dr. Dencklau and the impression and plan of care has been directed as dictated. Past Medical History Past Medical History: Atrial Fibrillation, Coronary Artery Disease (CAD), Cancer, Heart Failure, COPD, CVA/TIA, Hyperlipidemia, Hypertension, Mitral Valve Prolapse (MVP), Neurologic Disorder, Osteoarthritis (OA), Pneumonia, Skin Disorder, Sleep Apnea/CPAP/BIPAP, Vascular Disorder Additional Past Medical History / Comment(s): right breast cancer (mastectomy november 2021).,. Multiple Sclerosis. ,PAD hx chronic wounds left foot/lower leg now healed., states feet are red & purple in color, edema both feet., peripheral neuropathy., CVA x2 Jul/Aug 2021 gait unsteady-uses w/c., generalized weakness., hx anemia with iron infusions., hx hospitalization for collapsed lung and respiratory failure with intubation., states lump on her vocal cord.,. oxygen at 2.5-4 L prn, sleep apnea (no machine) History of Any Multi-Drug Resistant Organisms: None Reported Past Surgical History: Appendectomy, Breast Surgery, Coronary Bypass/CABG, Heart Catheterization With Stent, Orthopedic Surgery, Tonsillectomy Additional Past Surgical History / Comment(s): 08/17/21 surgery at [facility] for mass upper back., 11/2020 CABG 4 vessel, PCI/stents in , bilateral iliac arthrectomy/stents ., left foot wound debridements, bronchoscopy/lavage, bilater al breast biopsies, D&C, lumpectomy right breast 08/2021. Right mastectomy (11/26/21) Past Anesthesia/Blood Transfusion Reactions: No Reported Reaction, Motion Sickness Additional Past Anesthesia/Blood Transfusion Reaction / Comm: No hx blood transfusion. Date of Last Stent Placement:: 2008 Past Psychological History: Anxiety, Depression Smoking Status: Current every day smoker Past Alcohol Use History: None Reported Past Drug Use History: None Reported - Past Family History Father Family Medical History: No Reported History Additional Family Medical History / Comment(s): alcoholism, deseased. Mother Family Medical History: Cancer Additional Family Medical History / Comment(s): Breast and brain cancer. Medications and Allergies Home Medications Medication Instructions Recorded Confirmed Type Apixaban [Eliquis] 5 mg PO BID #0 08/22/21 11/07/22 Rx Fluticasone/Umeclidin/Vilanter 1 puff INHALATION RT-DAILY PRN 11/01/21 11/07/22 History [Trelegy Ellipta 100-62.5-25] Nitroglycerin Sl Tabs [Nitrostat] 0.4 mg SUBLINGUAL Q5M PRN 04/16/22 11/07/22 History Furosemide [Lasix] 40 mg PO BID@0900,1600 #60 tab 08/06/22 11/07/22 Rx ALPRAZolam [Xanax] 0.25 mg PO HS 09/16/22 11/07/22 History Acetaminophen Tab [Tylenol] 500 - 1,500 mg PO Q6H PRN 09/16/22 11/07/22 History Albuterol Sulfate [Ventolin HFA] 1 puff INHALATION RT-Q6H PRN 09/16/22 11/07/22 History Gabapentin [Neurontin] 100 mg PO BID 09/16/22 11/07/22 History Collagenase [Santyl Ointment] 1 applic TOPICAL DAILY 30 Days #1 09/23/22 11/07/22 Rx each Escitalopram [Lexapro] 20 mg PO DAILY 10/27/22 11/07/22 History traMADol HCL 50 mg PO HS PRN 10/27/22 11/07/22 History Metoprolol Tartrate [Lopressor] 50 mg PO BID #60 tab 10/31/22 11/07/22 Rx Albuterol Nebulized [Ventolin 2.5 mg INHALATION RT-QID PRN 11/07/22 11/07/22 History Nebulized] Allergies Allergy/AdvReac Type Severity Reaction Status Date / Time sumatriptan [From Imitrex] AdvReac Chest Pain Verified 11/07/22 21:18 Physical Exam Vitals: Vital Signs Temp Pulse Resp BP Pulse Ox 11/10/22 08:00 97.7 F 62 18 129/62 94 L 11/10/22 07:56 68 11/10/22 05:00 97.7 F 68 16 140/76 92 L 11/10/22 00:00 98.0 F 70 16 129/65 95 11/09/22 20:19 99.4 F 72 16 132/54 96 11/09/22 15:15 98.1 F 59 L 18 128/73 94 L 11/09/22 13:14 64 Intake and Output 11/09/22 11/10/2223 22:59 06:59 14:59 Intake Total 240 Output Total 1150 400 Balance -910 -400 Intake: Oral 240 Output: Urine 1150 400 Other: Voiding Method Bedpan Bedpan Diaper Diaper External Catheter External Catheter # Voids 1 # Bowel Movements 1 Results CBC & Chem 7: 11/10/22 06:36 11/10/22 06:36 Labs: Abnormal Lab Results - Last 24 Hours (Table) 11/09/22 11/09/22 11/10/22 Range/Units 12:01 15:17 06:36 RBC 3.68 L (3.80-5.40) m/uL Hgb 11.3 L (11.4-16.0) gm/dL MCHC 30.8 L (31.0-37.0) g/dL APTT 47.5 H (22.0-30.0) sec Sodium 130 L (137-145) mmol/L Carbon Dioxide 32 H (22-30) mmol/L Calcium 7.4 L (8.4-10.2) mg/dL AST 69 H (14-36) U/L ALT (4-34) U/L Total Protein 5.4 L (6.3-8.2) g/dL Albumin 2.5 L (3.5-5.0) g/dL 11/10/22 11/10/22 Range/Units 06:36 06:36 RBC (3.80-5.40) m/uL Hgb (11.4-16.0) gm/dL MCHC (31.0-37.0) g/dL APTT 42.9 H (22.0-30.0) sec Sodium 134 L (137-145) mmol/L Carbon Dioxide 37 H (22-30) mmol/L Calcium 7.9 L (8.4-10.2) mg/dL AST 38 H (14-36) U/L ALT 68 H (4-34) U/L Total Protein 5.1 L (6.3-8.2) g/dL Albumin 2.4 L (3.5-5.0) g/dL Assessment and Plan (1) Atherosclerosis of circle arteries of right leg with ulceration of calf Current Visit: Yes Status: Acute Code(s): I70.232 - ATHSCL [place] [employer] ARTERIES OF RIGHT LEG W ULCERATION OF CALF SNOMED Code(s): 494826665 (2) Atherosclerosis of circle arteries of right leg with ulceration of other part of foot Current Visit: No Status: Acute Code(s): I70.235 - ATHSCL [place] [employer] ARTERIES OF RIGHT LEG W ULCER OTH PRT FOOT SNOMED Code(s): 557900378 (3) Non-pressure chronic ulcer of other part of right lower leg with muscle inv olvement without evidence of necrosis Current Visit: No Status: Acute Code(s): L97.815 - NON-PRS CHR ULC OTH PRT R LOW LEG W MSL INVL W/O EVD OF NECR SNOMED Code(s): 17328401088397622
[2022-11-10] MEDS: ATORVASTATIN 40 MG TAB PO SCH (12:57)
[2022-11-10] MEDS: HEPARIN SOD,PORK IN 0.45% NACL 25,000 UNIT in 0.45% NACL 1 250ML.BAG IV SCH (12:57)
[2022-11-10] MEDS: COLLAGENASE 250 UNIT/GM OINTMENT 30 GM TUBE TOPICAL SCH (12:58)
--- NOTE | 2022-11-10 13:41 | P.PN ---
Subjective Progress Note Date: 11/10/22 This is a 77-year-old female past medical history significant for peripheral vascular disease, Narcisa bowers who was recently admitted for CHF exacerbation as well as hepatic congestion with transaminitis presented to the ER for increased discoloration to her toes .Patient has severe peripheral vascular disease and managed by vascular surgery along with wound care in the outpatient setting. Patient was seen and evaluated recently underwent CT aNGiO with runoff with no plans for immediate intervention and was placed back on anticoagulation, vascular surgery were planning intervention once cleared by cardiology. Patient was discharged on Thursday, beginning Thursday she started noticing blister on her left foot followed by bluish discoloration of her toes, wound care nurse was following up on her and she told her to come to ER. Initial lab work in the ER showed white count of 11.4, hemoglobin of 12.4, pl atelet count 203, sodium 135, potassium 4.3, chloride 96, carbon dioxide 36, BUN 17, creatinine 0.64 11/09. Patient seen and examined. States left foot pain has improved. WBCs 9.8, hemoglobin 11.2, sodium 130, BUN 30,. /. Patient seen and examined on labs reviewed. WBC 8.9, hemoglobin 11.3, sodium 134, potassium 4, BUN is 12, creatinine 0.57. Patient states left foot seems much better compared to yesterday. REVIEW OF SYSTEMS: CONSTITUTIONAL: No fever, no malaise,. CARDIOVASCULAR: No chest pain, no palpitations, no syncope. PULMONARY: No shortness of breath, no cough, GASTROINTESTINAL: No diarrhea, no nausea, no vomiting, no abdominal pain. NEUROLOGICAL: No headaches, no weakness, PHYSICAL EXAMINATION: GENERAL: The patient is alert and oriented x3, not in any acute distress. Well developed, well nourished. HEENT: Pupils are round and equally reacting to light. EOMI. No scleral icterus. No conjunctival pallor. Normocephalic, atraumatic. No pharyngeal erythema. No thyromegaly. CARDIOVASCULAR: S1 and S2 present. No murmurs, rubs, or gallops. PULMONARY: Chest is clear to auscultation, no wheezing or crackles. ABDOMEN: Soft, nontender, nondistended, normoactive bowel sounds. No palpable organomegaly. MUSCULOSKELETAL: No joint swelling or deformity. EXTREMITIES: Left foot blister noticeable on the dorsum of the foot, no tenderness NEUROLOGICAL: Gross neurological examination did not reveal any focal deficits. SKIN: No rashes. Assessment and plan Acute left limb ischemia of left foot Left lower extremity discoloration and bullae Peripheral vascular disease Hypertension Chronic hypoxic respiratory failure Chronic systolic CHF -Transaminitis Hyperkalemia -Atrial fibrillation paroxysmal -Hyperlipidemia -Hypertension -Coronary artery disease with stents in the past and CABG in the past Plan; Monitor vital signs Monitor CBC next monitor CMP Continue pharmacy dose heparin Low potassium diet. Vascular surgery on board for acute limb ischemia, they're planning possible angiogram Cardiology consulted for cardiac clearance, they ordered a Lexiscan for preoperative clearance, npo for Now, Going for Stress Test Today Follow-up in nephrology recommendations Objective - Vital Signs Vital signs: Vital Signs Temp 97.7 F 11/10/22 08:00 Pulse 62 11/10/22 08:00 Resp 18 11/10/22 08:00 BP 129/62 11/10/22 08:00 Pulse Ox 94 L 11/10/22 08:00 FiO2 Intake & Output 11/09/22 11/10/22 11/10/22 18:59 06:59 18:59 Intake Total 665.297 Output Total 700 850 Balance -34.703 -850 Intake: Intake, IV Titration 185.297 Amount Heparin Sod,Pork in 0.45% 185.297 NaCl 25,000 unit In 0.45 % NaCl 1 250ml.bag @ 12 UNITS/KG/HR 4.79 mls/hr IV .Q24H [facility] Rx#: [id number] Oral 480 Output: Urine 700 850 Other: Voiding Method Bedpan Bedpan Diaper Diaper External Catheter External Catheter # Voids 1 # Bowel Movements 1 - Labs CBC & Chem 7: 11/10/22 06:36 11/10/22 06:36 Labs: Abnormal Lab Results - Last 24 Hours (Table) 11/09/22 11/09/22 11/09/22 Range/Units 08:45 08:45 12:01 RBC (3.80-5.40) m/uL Hgb (11.4-16.0) gm/dL MCHC (31.0-37.0) g/dL Neutrophils # 7.8 H (1.3-7.7) k/uL APTT 34.3 H (22.0-30.0) sec Sodium 130 L (137-145) mmol/L Carbon Dioxide 32 H (22-30) mmol/L Calcium 7.4 L (8.4-10.2) mg/dL AST 69 H (14-36) U/L ALT (4-34) U/L Total Protein 5.4 L (6.3-8.2) g/dL Albumin 2.5 L (3.5-5.0) g/dL 11/09/22 11/10/22 11/10/22 Range/Units 15:17 06:36 06:36 RBC 3.68 L (3.80-5.40) m/uL Hgb 11.3 L (11.4-16.0) gm/dL MCHC 30.8 L (31.0-37.0) g/dL Neutrophils # (1.3-7.7) k/uL APTT 47.5 H (22.0-30.0) sec Sodium 134 L (137-145) mmol/L Carbon Dioxide 37 H (22-30) mmol/L Calcium 7.9 L (8.4-10.2) mg/dL AST 38 H (14-36) U/L ALT 68 H (4-34) U/L Total Protein 5.1 L (6.3-8.2) g/dL Albumin 2.4 L (3.5-5.0) g/dL 11/10/22 Range/Units 06:36 RBC (3.80-5.40) m/uL Hgb (11.4-16.0) gm/dL MCHC (31.0-37.0) g/dL Neutrophils # (1.3-7.7) k/uL APTT 42.9 H (22.0-30.0) sec Sodium (137-145) mmol/L Carbon Dioxide (22-30) mmol/L Calcium (8.4-10.2) mg/dL AST (14-36) U/L ALT (4-34) U/L Total Protein (6.3-8.2) g/dL Albumin (3.5-5.0) g/dL
--- NOTE | 2022-11-10 14:28 | NM ---
EXAMINATION TYPE: NM stress lexiscan cardiolite DATE OF EXAM: 11/10/2022 COMPARISON: NONE HISTORY: pre-op clearance , a-fib, hx CABG TECHNIQUE: After the intravenous administration of 10.25 mCi Tc 99m Sestamibi - Cardiolite resting S PECT images acquired 75 minutes post injection. The patient received 0.4mg Lexiscan, 23.4 mCi Tc 99m Sestamibi - Stress images obtained [address] injection FINDINGS: Review of stress and rest SPECT images demonstrates large area of fixed defect involving the cardiac apex as well as the lateral wall are also small adjacent areas of reversibility noted apical septal r egion and anterolateral region. Hypokinesia is also noted. Estimated ejection fraction 33%. IMPRESSION: Large area of fixed defect likely reflective of remote insult. 2 smaller areas of reversi bility noted suggesting stress-induced ischemia. Hypokinesia with diminished ejection fraction.
--- NOTE | 2022-11-10 15:16 | P.PN ---
Subjective Progress Note Date: 11/10/22 Patient is seen and examined today as a follow-up. She went for her Lexiscan stress test earlier today with findings reported as large area of fixed defect likely reflective of remote insult. 2 smaller areas of reversibility noted suggesting stress-induced ischemia. Hypokinesia with diminished ejection fraction. Patient currently denies any shortness of breath or chest pain. She denies any acute changes through the night. Still has pain in bilateral lower extremities, left greater than right. Currently on a heparin drip. Tentative plan was for angiogram with possible intervention tomorrow morning however will need to await clearance from cardiology. Objective - Vital Signs Vital signs: Vital Signs Temp 97.8 F 11/10/22 12:00 Pulse 70 11/10/22 14:00 Resp 18 11/10/22 12:00 BP 119/51 11/10/22 12:00 Pulse Ox 95 11/10/22 12:00 FiO2 Intake & Output 11/09/22 11/10/22 11/10/22 18:59 06:59 18:59 Intake Total 665.297 433.995 Output Total 700 850 100 Balance -34.703 -850 333.995 Intake: Intake, IV Titration 185.297 193.995 Amount Heparin Sod,Pork in 0.45% 185.297 193.995 NaCl 25,000 unit In 0.45 % NaCl 1 250ml.bag @ 12 UNITS/KG/HR 4.79 mls/hr IV .Q24H [facility] Rx#: [id number] Oral 480 240 Output: Urine 700 850 100 Stool 0 Other: Voiding Method Bedpan Bedpan Diaper Diaper External Catheter External Catheter # Voids 1 # Bowel Movements 1 - Exam No acute distress resting comfortably with eyes closed. Still with cyanotic changes to her great toe and distal tips of her second and third toes on the left with bullae on dorsal aspect of foot. - Labs CBC & Chem 7: 11/10/22 06:36 11/10/22 06:36 Labs: Abnormal Lab Results - Last 24 Hours (Table) 11/09/22 11/10/22 11/10/22 Range/Units 15:17 06:36 06:36 RBC 3.68 L (3.80-5.40) m/uL Hgb 11.3 L (11.4-16.0) gm/dL MCHC 30.8 L (31.0-37.0) g/dL APTT 47.5 H (22.0-30.0) sec Sodium 134 L (137-145) mmol/L Carbon Dioxide 37 H (22-30) mmol/L Calcium 7.9 L (8.4-10.2) mg/dL AST 38 H (14-36) U/L ALT 68 H (4-34) U/L Total Protein 5.1 L (6.3-8.2) g/dL Albumin 2.4 L (3.5-5.0) g/dL 11/10/22 Range/Units 06:36 RBC (3.80-5.40) m/uL Hgb (11.4-16.0) gm/dL MCHC (31.0-37.0) g/dL APTT 42.9 H (22.0-30.0) sec Sodium (137-145) mmol/L Carbon Dioxide (22-30) mmol/L Calcium (8.4-10.2) mg/dL AST (14-36) U/L ALT (4-34) U/L Total Protein (6.3-8.2) g/dL Albumin (3.5-5.0) g/dL Assessment and Plan Assessment: 1. Left lower extremity discoloration and bullae 2. Chronic peripheral arterial disease 3. Chronic lower extremity wounds 3. History of bilateral iliac stents, patent on recent computed tomography scan 4. Weakness 5. Acute kidney injury 6. Atrial fibrillation 7. History of TIA Plan: 1. Continue symptomatic supportive care 2. Await recommendations from cardiology 3. Continue IV heparin, discontinue at midnight 4. Tentative plan for angiogram with possible intervention tomorrow if cleared by cardiology 5. Nothing by mouth after midnight 6. Defer rest medical management to primary medical team Thank you for this consultation, we'll continue to follow. The impression and plan of care has been dictated as directed. I performed a history and examination of this patient, discussed the same with the dictator. I agree with the dictator's note ,documented as a scribe. Any additional findings or plans will be noted.
--- NOTE | 2022-11-10 18:08 | CA ---
Lexiscan Nuclear Stress Test Report Name: Sharmila Ayers Exam Date: 11/10/2022 09:56 Exam Location: [place] Stress Ht (in): 58 Wt (lb): 88 BSA: 1.28 Ordering Phys: Hayley Miguel Referring Phys: MOMO MICHELLE,, Technologist: Braeden Aldana Age: 77 Gender: F : 1945 Procedure CPT: Indications: Reflex order-Stress test ICD-10 Codes: Patient History: DIFFICULTY IN BREATHING, HTN, PRIOR STROKE, ELEVATED CHOLESTEROL LEVELS, FAMILY HX OF HEART DIESASE, CURRENT SMOKER, PRIOR IN, PRIOR CATH WITH 5 STENTS, PRIOR CABG, COPD Medications: Meds past 24 hrs: Pretest Chest Pain: STRESS TEST Lexiscan Protocol Exercise Duration (min:sec): 01:[address] Depressions (mm): Angina Score: Cantor Score: Resting HR (bpm): 71 Peak HR (bpm): 80 Resting BP (mmHg): 144 / 74 Peak BP (mmHg): 167 / 84 MPHR: 145 Target HR: 123 % MPHR: 55 METS: 1.0 Total Dose: Peak Dose: Atropine: Double Product: 47903 BP Response: Stress Termination: INFUSION COMPLETE Stress Symptoms: NO SYMPTOMS Stress Summary: ECG ANALYSIS Resting ECG: Baseline EKG shows sinus rhythm PVCs and nonspecific ST-T wave changes Stress ECG: Patient was given intravenous Lexiscan as a protocol did not have chest pain or diagnostic ST segment depression CONCLUSIONS Nondiagnostic EKG changes with Lexiscan infusion Cardiolite portion of the stress test will be reported separately Dr. Fernando Gutierrez MD (Electronically Signed) Final Date: 10 November 2022 18:06
[2022-11-10] MEDS: HEPARIN SODIUM 1,000 UN/ML (10ML VL) IV PRN (21:43)
[2022-11-10] MEDS: ALPRAZolam 0.25 MG TAB PO SCH (21:44)
[2022-11-11] MEDS: MORPHINE SULFATE 4 MG/ML SYRINGE IV PRN ×4 (05:13→23:20)
[2022-11-11] MEDS ORDERED: LIDOCAINE 1% INJ 10MG/ML (20 ML MDV) ONE (07:17)
[2022-11-11] MEDS ORDERED: fentaNYL (PF) 50 MCG/ML 2 ML AMP ONE (07:31)
[2022-11-11] MEDS ORDERED: IV FLUID CONTINUATION 1,000 ML IV ONE (07:39)
[2022-11-11] MEDS: fentaNYL (PF) 50 MCG/ML 2 ML AMP IV ONE ×2 (07:39→08:55)
[2022-11-11] MEDS ORDERED: MIDAZOLAM 2 MG/2 ML VIAL IV ONE (07:39)
[2022-11-11] MEDS ORDERED: LIDOCAINE 1% INJ 10MG/ML (20 ML MDV) SQ ONE (07:41)
[2022-11-11] MEDS ORDERED: IOPAMIDOL-250 100ML BTL INTRAARTER ONE ×2 (08:43)
--- NOTE | 2022-11-11 09:00 | P.OP ---
Date of Procedure: 11/11/22 Description of Procedure: Preoperative diagnosis: Bilateral lower extremity critical limb ischemia, left toe gangrene Postop diagnosis: Same, right SFA occlusion with reconstitution above-knee popliteal artery, left SFA in-stent stenosis 3, two-vessel runoff to the foot bilaterally Procedure: Aortogram with bilateral lower extremity runoffs via right common femoral artery access under ultrasound guidance, selective left lower extremity femoral, tibial angiogram, percutaneous transluminal balloon angioplasty of the left SFA in-stent stenosis, percutaneous closure of the right common femoral artery with vascade device Surgeon: Ivette Anesthesia: Moderate sedation times 58 minutes Estimated blood loss: 5 mL Complications: None Condition: Stable Findings: Aorta: Patent with out any significant atherosclerotic or stenotic disease, bilateral renal arteries are patent without stenosis Iliacs: Bilateral common iliac arteries are patent with mild atherosclerotic disease throughout. No stenosis. Internal iliac is patent bilaterally. External iliac artery stents are patent without any stenosis Femorals: Right common femoral artery is patent, profundus is patent without any stenosis. SFA is occluded with reconstitution above-knee popliteal artery. Left femoral, profunda and SFA are patent. The SFA stent has through areas of stenosis roughly 60% but is patent throughout. Popliteal: Bilateral popliteal arteries are patent with mild atherosclerotic disease without any significant stenosis. Tibials: Tibioperoneal trunk bilaterally is patent with mild atherosclerotic disease throughout. Three-vessel takeoff is noted with two-vessel runoff bilaterally. Left posterior tibial artery is filling to the feet. Anterior tibial artery goes to the ankle and extends to her dorsal aspect of her foot but then becomes diminutive. Operative narrative: After written informed consent was obtained the patient all risks benefits competitions were described the patient is brought to the [employer] and laid in a supine position. The area of the right groin was prepped and draped in the usual sterile fashion. Local anesthesia with moderate sedation was performed with continuous pulse ox monitoring and EKG monitoring. Utilizing ultrasound the right common femoral artery was visualized and shown to be patent without any significant plaque. Utilizing a multipurpose needle under ultrasound guidance the artery was accessed. Guidewire was placed followed by 5-Macedonian sheath. 035 Glidewire was then placed into the aorta followed by pigtail catheter. Angiogram was then obtained of the aorta. Catheter was then placed at the bifurcation and lower extremity runoffs were obtained. Guidewire was then placed in the left iliac artery extending into the SFA stents followed by an RBI catheter. Distal angiogram was obtained demonstrating brisk flow to the ankle with cut off to the toes on the dorsal aspect from the anterior tibial artery. The posterior tibial artery does fill around the foot to the toes. Due to the 3 areas of stenosis in the SFA stents a guidewire was placed and balloon angioplasty was performed with a 5 x 200 mm drug-eluting balloon and the sheath was upsized to a 6-Macedonian. Final angiogram was then obtained demonstrating brisk flow through the stents with improved stenosis. There is two-vessel runoff to the ankle. Once completed all guidewires, catheters and sheaths were removed and a vascade was placed and pressure was placed for hemostasis. Patient tolerated procedure well, had palpable PT pulse on the left with good capillary refill at the dorsal aspect of the foot and was sent back to the room for recovery.
[2022-11-11] MEDS: ATORVASTATIN 40 MG TAB PO SCH (09:48)
[2022-11-11] MEDS: METOPROLOL TARTRATE 50 MG TAB PO SCH ×2 (09:48→21:26)
[2022-11-11] MEDS: ESCITALOPRAM 20 MG TAB PO SCH (09:48)
[2022-11-11] MEDS: GABAPENTIN 100 MG CAP PO SCH ×2 (09:48→21:26)
[2022-11-11] MEDS: COLLAGENASE 250 UNIT/GM OINTMENT 30 GM TUBE TOPICAL SCH (09:48)
[2022-11-11] MEDS: FUROSEMIDE 40 MG TAB PO SCH ×2 (09:48→15:50)
[2022-11-11 10:13] LABS: HGB 13.7 gm/dL (11.4-16.0); Hypochromasia Marked; MCH 31.2 pg (25.0-35.0); MCHC 30.3 g/dL (31.0-37.0); Macrocytosis Moderate; Mean Platelet Volume 8.4; Platelet Count 146 k/uL (150-450); Poikilocytosis Slight; RBC 4.37 m/uL (3.80-5.40); RDW 15.5 % (11.5-15.5); WBC 11.4 k/uL (3.8-10.6)
--- NOTE | 2022-11-11 11:26 | P.PN ---
Subjective Progress Note Date: 11/11/22 HISTORY OF PRESENT ILLNESS: The patient is a 77-year-old female known history of CAD, status post CABG, history of severe PAD who presented with worsening ischemic left foot. She is scheduled to undergo angiogram and possible surgical intervention tomorrow. She's feeling well this morning, she denies any chest discomfort, dizziness or palpitations. She is supine without any shortness of breath. She has a known history of chronic tobacco use. She has a history of cardiomyopathy. She underwent an MPI today and the results are pending. Her echocardiogram showed an ejection fraction of 35-40% with moderate mitral regurgitation. She had her bypass in November 2020 and received a BAUTISTA to the LAD, SVG to the OM and to the RCA. She has a known history of chronic kidney disease Medications: Furosemide 40 mg twice a day, Neurontin, IV heparin, metoprolol 50 mg twice a day, Lexapro 11/11/2022 Patient underwent Lexiscan stress test yesterday revealing large area of fixed defect likely reflective of remote insult. 2 smaller areas of reversibility noted suggesting stress-induced ischemia. Hypokinesia with diminished EF noted. Results reviewed with Dr. Marshall who gave cardiac clearance for patient to undergo angiogram with intervention with vascular surgery. The patient is status post angiogram with balloon angioplasty of the left SFA in-stent s tenosis. Patient examined this morning at the bedside. Patient denies chest pain or pressure. She denies shortness of breath. The patient remains on IV heparin. Vital signs are stable. Telemetry reveals sinus mechanism. PHYSICAL EXAM: VITAL SIGNS: Reviewed. GENERAL: Well-developed in no acute distress. NECK: Supple. No JVD or thyromegaly LUNGS: Respirations even and unlabored. Lungs essentially clear to auscultation bilaterally. HEART: Regular rate and rhythm. S1 and S2 heard. + systolic murmur. EXTREMITIES: Normal range of motion. No clubbing or cyanosis. Large blister on the left foot and digits 1-3, black with 1+ edema ASSESSMENT: Severe peripheral disease with severe ischemic changes of left foot, status post balloon angioplasty of left SFA in-stent stenosis Coronary artery disease with previous CABG Ischemic cardiomyopathy, ejection fraction 35-40% Hypertension Hyperlipidemia Acute renal failure, improved Paroxysmal atrial fibrillation Paroxysmal typical atrial flutter History of congestive heart failure Nicotine dependence PLAN: Continue current cardiac medications Add lisinopril for cardiomyopathy. Monitor renal function. Continue IV heparin. Resume Eliquis when okay with vascular surgery Further recommendations pending patient course Nurse practitioner note has been reviewed by physician. Signing provider agrees with the documented findings, assessment, and plan of care. Objective - Vital Signs Vital signs: Vital Signs Temp 98.4 F 11/11/22 08:00 Pulse 76 11/11/22 08:00 Resp 18 11/11/22 08:00 BP 159/62 11/11/22 08:00 Pulse Ox 92 L 11/11/22 08:00 FiO2 Intake & Output 11/10/22 11/11/22 11/11/22 18:59 06:59 18:59 Intake Total 974.354 96.210 740 Output Total 100 400 100 Balance 874.354 -303.790 640 Intake: IV 500 Intake, IV Titration 194.354 96.210 0 Amount Heparin Sod,Pork in 0.45% 194.354 96.210 0 NaCl 25,000 unit In 0.45 % NaCl 1 250ml.bag @ 12 UNITS/KG/HR 4.79 mls/hr IV .Q24H [facility] Rx#: [id number] Oral 780 240 Output: Urine 100 400 100 Stool 0 Other: Voiding Method Bedpan External Catheter Diaper External Catheter # Bowel Movements 1 - Labs CBC & Chem 7: 11/11/22 09:36 11/10/22 06:36 Labs: Abnormal Lab Results - Last 24 Hours (Table) 11/10/22 11/11/22 Range/Units 20:26 09:36 WBC 11.4 H (3.8-10.6) k/uL MCV 103.0 H (80.0-100.0) fL MCHC 30.3 L (31.0-37.0) g/dL Plt Count 146 L (150-450) k/uL APTT 39.2 H (22.0-30.0) sec
[2022-11-11] MEDS: lisinopriL 5 MG TAB PO SCH (11:34)
[2022-11-11 11:50] LABS: ALT 70 U/L (4-34); African American GFR (CKD) >90 (>60 ml/min/1.73 sqM); Anion Gap 10 mmol/L; Blood Urea Nitrogen 13 mg/dL (7-17); Calcium 8.8 mg/dL (8.4-10.2); Carbon Dioxide 25 mmol/L (22-30); Chloride 99 mmol/L (98-107); Glucose 84 mg/dL (74-99); Non-African American GFR(CKD) >90 (>60 ml/min/1.73 sqM); Sodium 134 mmol/L (137-145); Total Protein 6.2 g/dL (6.3-8.2)
[2022-11-11 11:57] LABS: AST 44 U/L (14-36)
[2022-11-11 11:59] LABS: Alkaline Phosphatase 120 U/L (38-126)
--- NOTE | 2022-11-11 13:42 | P.PN ---
Subjective Progress Note Date: 11/11/22 This is a 77-year-old female past medical history significant for peripheral vascular disease, A. robinson who was recently admitted for CHF exacerbation as well as hepatic congestion with transaminitis presented to the ER for increased discoloration to her toes .Patient has severe peripheral vascular disease and managed by vascular surgery along with wound care in the outpatient setting. Patient was seen and evaluated recently underwent CT aNGiO with runoff with no plans for immediate intervention and was placed back on anticoagulation, vascular surgery were planning intervention once cleared by cardiology. Patient was discharged on Thursday, beginning Thursday she started noticing blister on her left foot followed by bluish discoloration of her toes, wound care nurse was following up on her and she told her to come to ER. Initial lab work in the ER showed white count of 11.4, hemoglobin of 12.4, pl atelet count 203, sodium 135, potassium 4.3, chloride 96, carbon dioxide 36, BUN 17, creatinine 0.64 11/09. Patient seen and examined. States left foot pain has improved. WBCs 9.8, hemoglobin 11.2, sodium 130, BUN 30,. 11/10. Patient seen and examined on labs reviewed. WBC 8.9, hemoglobin 11.3, sodium 134, potassium 4, BUN is 12, creatinine 0.57. Patient states left foot seems much better compared to yesterday. 11/11. Patient seen and examined. No acute issues overnight. Currently nothing by mouth undergoing a procedure today. White count this morning is about 4, hemoglobin 13.7, sodium 134, potassium 5, BUN 13, creatinine 0.53 REVIEW OF SYSTEMS: CONSTITUTIONAL: No fever, no malaise,. CARDIOVASCULAR: No chest pain, no palpitations, no syncope. PULMONARY: No shortness of breath, no cough, GASTROINTESTINAL: No diarrhea, no nausea, no vomiting, no abdominal pain. NEUROLOGICAL: No headaches, no weakness, PHYSICAL EXAMINATION: GENERAL: The patient is alert and oriented x3, not in any acute distress. Well developed, well nourished. HEENT: Pupils are round and equally reacting to light. EOMI. No scleral icterus. No conjunctival pallor. Normocephalic, atraumatic. No pharyngeal erythema. No thyromegaly. CARDIOVASCULAR: S1 and S2 present. No murmurs, rubs, or gallops. PULMONARY: Chest is clear to auscultation, no wheezing or crackles. ABDOMEN: Soft, nontender, nondistended, normoactive bowel sounds. No palpable organomegaly. MUSCULOSKELETAL: No joint swelling or deformity. EXTREMITIES: Left foot blister noticeable on the dorsum of the foot, no tenderness NEUROLOGICAL: Gross neurological examination did not reveal any focal deficits. SKIN: No rashes. Assessment and plan Acute left limb ischemia of left foot Left lower extremity discoloration and bullae Peripheral vascular disease Hypertension Chronic hypoxic respiratory failure Chronic systolic CHF -Transaminitis Hyperkalemia -Atrial fibrillation paroxysmal -Hyperlipidemia -Hypertension -Coronary artery disease with stents in the past and CABG in the past Plan; Monitor vital signs Monitor CBC next monitor CMP Continue pharmacy dose heparin Vascular surgery on board for acute limb ischemia, they're planning possible angiogram today, currently nothing by mouth Cardiology consulted for cardiac clearance, they ordered a Lexiscan for preoperative clearance, cardiology cleared the patient for procedure Follow-up in nephrology recommendations Objective - Vital Signs Vital signs: Vital Signs Temp 98.4 F 11/11/22 08:00 Pulse 76 11/11/22 08:00 Resp 18 11/11/22 08:00 BP 159/62 11/11/22 08:00 Pulse Ox 92 L 11/11/22 08:00 FiO2 Intake & Output 11/10/22 11/11/22 11/11/22 18:59 06:59 18:59 Intake Total 974.354 96.210 858 Output Total 100 400 100 Balance 874.354 -303.790 758 Intake: IV 500 Intake, IV Titration 194.354 96.210 0 Amount Heparin Sod,Pork in 0.45% 194.354 96.210 0 NaCl 25,000 unit In 0.45 % NaCl 1 250ml.bag @ 12 UNITS/KG/HR 4.79 mls/hr IV .Q24H [facility] Rx#: [id number] Oral 780 358 Output: Urine 100 400 100 Stool 0 Other: Voiding Method Bedpan External Catheter Diaper External Catheter # Bowel Movements 1 - Labs CBC & Chem 7: 11/11/22 09:36 11/11/22 09:36 Labs: Abnormal Lab Results - Last 24 Hours (Table) 11/10/22 11/11/22 11/11/22 Range/Units 20:26 09:36 09:36 WBC 11.4 H (3.8-10.6) k/uL MCV 103.0 H (80.0-100.0) fL MCHC 30.3 L (31.0-37.0) g/dL Plt Count 146 L (150-450) k/uL APTT 39.2 H (22.0-30.0) sec Sodium 134 L (137-145) mmol/L AST 44 H (14-36) U/L ALT 70 H (4-34) U/L Total Protein 6.2 L (6.3-8.2) g/dL Albumin 3.0 L (3.5-5.0) g/dL
--- NOTE | 2022-11-11 15:11 | IR ---
EXAMINATION TYPE: IR angio abdominal w runoff DATE OF EXAM: 11/11/2022 CLINICAL HISTORY: Left leg pain. TECHNIQUE: Fluoroscopy. COMPARISON: None. FINDINGS: Fluoroscopic guidance was provided during abdominal angiogram with lower extremity runoff procedure performed by Dr. Steele. A total of 11.3 minute of fluoroscopic time was utilized during the procedure and 1011 spot images was acquired. Please refer to procedure note for further details. IMPRESSION: As Above. TOTAL DAP = 11.7 Gy x cm2
[2022-11-11] MEDS: HEPARIN SOD,PORK IN 0.45% NACL 25,000 UNIT in 0.45% NACL 1 250ML.BAG IV SCH (16:29)
[2022-11-11] MEDS: ACETAMINOPHEN TAB 325 MG TAB PO PRN (21:26)
[2022-11-11] MEDS: ALPRAZolam 0.25 MG TAB PO SCH (21:26)
[2022-11-12] MEDS: HEPARIN SOD,PORK IN 0.45% NACL 25,000 UNIT in 0.45% NACL 1 250ML.BAG IV SCH (02:11)
[2022-11-12 03:16] LABS: Basophils % (A) 0 %; Eosinophils % (A) 0 %; HCT 35.9 % (34.0-46.0); HGB 11.5 gm/dL (11.4-16.0); Hypochromasia Moderate; Lymphocytes # (A) 1.7 k/uL (1.0-4.8); Lymphocytes % (A) 19 %; MCH 31.5 pg (25.0-35.0); MCV 98.4 fL (80.0-100.0); Macrocytosis Slight; Mean Platelet Volume 8.5; Monocytes # (A) 0.5 k/uL (0-1.0); Monocytes % (A) 6 %; Neutrophils # (A) 6.7 k/uL (1.3-7.7); Neutrophils % (A) 73 %; Platelet Count 190 k/uL (150-450); Poikilocytosis Slight; RBC 3.65 m/uL (3.80-5.40); RDW 15.9 % (11.5-15.5); WBC 9.2 k/uL (3.8-10.6)
[2022-11-12 03:20] LABS: African American GFR (CKD) >90 (>60 ml/min/1.73 sqM); Anion Gap 2 mmol/L; Blood Urea Nitrogen 13 mg/dL (7-17); Carbon Dioxide 33 mmol/L (22-30); Chloride 98 mmol/L (98-107); Glucose 90 mg/dL (74-99); Non-African American GFR(CKD) 87 (>60 ml/min/1.73 sqM); Potassium 3.6 mmol/L (3.5-5.1); Sodium 133 mmol/L (137-145)
[2022-11-12] MEDS: MORPHINE SULFATE 4 MG/ML SYRINGE IV PRN ×2 (05:11→11:22)
[2022-11-12] MEDS: ACETAMINOPHEN TAB 325 MG TAB PO PRN (06:25)
[2022-11-12] MEDS: ESCITALOPRAM 20 MG TAB PO SCH (08:02)
[2022-11-12] MEDS: GABAPENTIN 100 MG CAP PO SCH (08:02)
[2022-11-12] MEDS: COLLAGENASE 250 UNIT/GM OINTMENT 30 GM TUBE TOPICAL SCH (08:02)
[2022-11-12] MEDS: FUROSEMIDE 40 MG TAB PO SCH (08:02)
[2022-11-12] MEDS: lisinopriL 5 MG TAB PO SCH (08:02)
[2022-11-12] MEDS: ATORVASTATIN 40 MG TAB PO SCH (08:02)
[2022-11-12] MEDS: METOPROLOL TARTRATE 50 MG TAB PO SCH (08:02)
[2022-11-12 11:01] VITALS: RESP 16
--- NOTE | 2022-11-12 11:41 | P.PN ---
Subjective Progress Note Date: 11/12/22 Patient was seen and examined today as follow-up. Yesterday patient underwent aortogram with bilateral lower extremity runoff with percutaneous balloon angioplasty of the left SFA in-stent stenosis, with closure of the right common femoral artery with SK device. Patient is lying in bed. States she has pain down both her legs. Patient has palpable left lower extremity PT pulses. Left foot no change, blister intact. Objective - Vital Signs Vital signs: Vital Signs Temp 97.6 F 11/12/22 04:00 Pulse 41 L 11/12/22 04:00 Resp 18 11/12/22 04:00 BP 123/67 11/12/22 04:00 Pulse Ox 94 L 11/12/22 04:00 FiO2 Intake & Output 11/11/22 11/12/22 11/12/22 18:59 06:59 18:59 Intake Total 1098 162.245 598 Output Total 700 950 Balance 398 -787.755 598 Weight 39.916 kg Intake: IV 500 10 0.9 10 Intake, IV Titration 0 152.245 Amount Heparin Sod,Pork in 0.45% 0 152.245 NaCl 25,000 unit In 0.45 % NaCl 1 250ml.bag @ 12 UNITS/KG/HR 4.79 mls/hr IV .Q24H [facility] Rx#: [id number] Oral 598 598 Output: Urine 700 950 Other: Voiding Method External Catheter External Catheter - Exam No acute distress resting comfortably with eyes closed. Still with cyanotic changes to her great toe and distal tips of her second and third toes on the left with bullae on dorsal aspect of foot. Palpable PT pulse. Right lower extremity with dressing in place. - Labs CBC & Chem 7: 11/12/22 02:44 11/12/22 02:44 Labs: Abnormal Lab Results - Last 24 Hours (Table) 11/11/22 11/11/22 11/11/22 Range/Units 09:36 09:36 18:24 WBC 11.4 H (3.8-10.6) k/uL RBC (3.80-5.40) m/uL MCV 103.0 H (80.0-100.0) fL MCHC 30.3 L (31.0-37.0) g/dL RDW (11.5-15.5) % Plt Count 146 L (150-450) k/uL APTT 42.5 H (22.0-30.0) sec Sodium 134 L (137-145) mmol/L Carbon Dioxide (22-30) mmol/L Calcium (8.4-10.2) mg/dL AST 44 H (14-36) U/L ALT 70 H (4-34) U/L Total Protein 6.2 L (6.3-8.2) g/dL Albumin 3.0 L (3.5-5.0) g/dL 11/12/22 11/12/22 11/12/22 Range/Units 02:37 02:44 02:44 WBC (3.8-10.6) k/uL RBC 3.65 L (3.80-5.40) m/uL MCV (80.0-100.0) fL MCHC (31.0-37.0) g/dL RDW 15.9 H (11.5-15.5) % Plt Count (150-450) k/uL APTT 70.3 H (22.0-30.0) sec Sodium 133 L (137-145) mmol/L Carbon Dioxide 33 H (22-30) mmol/L Calcium 8.0 L (8.4-10.2) mg/dL AST (14-36) U/L ALT (4-34) U/L Total Protein (6.3-8.2) g/dL Albumin (3.5-5.0) g/dL Assessment and Plan Assessment: 1. Bilateral lower extremity critical limb ischemia, left toe gangrene 2. Right SFA occlusion with reconstitution [id number] popliteal artery left SFA stent stenosis 3 two-vessel runoff to the foot bilaterally. 3. Status post aortogram with balloon angioplasty of the left SFA in-stent stenosis, with percutaneous closure of the right common femoral artery with vascular device 4. Chronic peripheral arterial disease 5. Chronic lower extremity wounds 6. History of bilateral iliac stents, patent on recent computed tomography scan 7. Weakness 8. Acute kidney injury 9. Atrial fibrillation 10. History of TIA Plan: 1. Recommend PT and OT 2. Patient may resume all questions this evening 3. No further plans for vascular surgical intervention during this hospitalization 4. Patient is cleared for discharge from vascular surgery, patient is to follow-up in office with Dr. Tadeo 1-2 weeks to discuss further outpatient surgical recommendations Thank you for this consultation, we will sign off at this time. The impression and plan of care has been dictated as directed. I performed a history and examination of this patient, discussed the same with the dictator. I agree with the dictator's note ,documented as a scribe. Any additional findings or plans will be noted.
--- NOTE | 2022-11-12 13:08 | P.PN ---
Subjective Progress Note Date: 11/12/22 HISTORY OF PRESENT ILLNESS: The patient is a 77-year-old female known history of CAD, status post CABG, history of severe PAD who presented with worsening ischemic left foot. She is scheduled to undergo angiogram and possible surgical intervention tomorrow. She's feeling well this morning, she denies any chest discomfort, dizziness or palpitations. She is supine without any shortness of breath. She has a known history of chronic tobacco use. She has a history of cardiomyopathy. She underwent an MPI today and the results are pending. Her echocardiogram showed an ejection fraction of 35-40% with moderate mitral regurgitation. She had her bypass in November 2020 and received a BAUTISTA to the LAD, SVG to the OM and to the RCA. She has a known history of chronic kidney disease Medications: Furosemide 40 mg twice a day, Neurontin, IV heparin, metoprolol 50 mg twice a day, Lexapro 11/11/2022 Patient underwent Lexiscan stress test yesterday revealing large area of fixed defect likely reflective of remote insult. 2 smaller areas of reversibility noted suggesting stress-induced ischemia. Hypokinesia with diminished EF noted. Results reviewed with Dr. Marshall who gave cardiac clearance for patient to undergo angiogram with intervention with vascular surgery. The patient is status post angiogram with balloon angioplasty of the left SFA in-stent s tenosis. Patient examined this morning at the bedside. Patient denies chest pain or pressure. She denies shortness of breath. The patient remains on IV heparin. Vital signs are stable. Telemetry reveals sinus mechanism. 11/12/2022 Patient examined this morning at the bedside. Patient states she is feeling well this morning. She denies any chest pain or pressure. She denies any shortness of breath. She remains on IV heparin. Vital signs are stable. PHYSICAL EXAM: VITAL SIGNS: Reviewed. GENERAL: Well-developed in no acute distress. NECK: Supple. No JVD or thyromegaly LUNGS: Respirations even and unlabored. Lungs essentially clear to auscultation bilaterally. HEART: Regular rate and rhythm. S1 and S2 heard. + systolic murmur. EXTREMITIES: Normal range of motion. No clubbing or cyanosis. Large blister on the left foot and digits 1-3, black with 1+ edema ASSESSMENT: Severe peripheral disease with severe ischemic changes of left foot, status post balloon angioplasty of left SFA in-stent stenosis Coronary artery disease with previous CABG Ischemic cardiomyopathy, ejection fraction 35-40% Hypertension Hyperlipidemia Acute renal failure, improved Paroxysmal atrial fibrillation Paroxysmal typical atrial flutter History of congestive heart failure Nicotine dependence PLAN: Continue current cardiac medications Resume Eliquis tonight at 2100. Discontinue IV heparin at that time. Spoke with vascular surgery and okay to transition back to Eliquis. Further recommendations pending patient course Nurse practitioner note has been reviewed by physician. Signing provider agrees with the documented findings, assessment, and plan of care. Objective - Vital Signs Vital signs: Vital Signs Temp 97.5 F L 11/12/22 08:00 Pulse 50 L 11/12/22 08:00 Resp 16 11/12/22 08:00 BP 139/64 11/12/22 08:00 Pulse Ox 96 11/12/22 08:00 FiO2 Intake & Output 11/11/22 11/12/22 11/12/22 18:59 06:59 18:59 Intake Total 1098 162.245 598 Output Total 700 950 Balance 398 -787.755 598 Weight 39.916 kg Intake: IV 500 10 0.9 10 Intake, IV Titration 0 152.245 Amount Heparin Sod,Pork in 0.45% 0 152.245 NaCl 25,000 unit In 0.45 % NaCl 1 250ml.bag @ 12 UNITS/KG/HR 4.79 mls/hr IV .Q24H [facility] Rx#: [id number] Oral 598 598 Output: Urine 700 950 Other: Voiding Method External Catheter External Catheter External Catheter - Labs CBC & Chem 7: 11/12/22 02:44 11/12/22 02:44 Labs: Abnormal Lab Results - Last 24 Hours (Table) 11/11/22 11/12/22 11/12/22 Range/Units 18:24 02:37 02:44 RBC (3.80-5.40) m/uL RDW (11.5-15.5) % APTT 42.5 H 70.3 H (22.0-30.0) sec Sodium 133 L (137-145) mmol/L Carbon Dioxide 33 H (22-30) mmol/L Calcium 8.0 L (8.4-10.2) mg/dL 11/12/22 Range/Units 02:44 RBC 3.65 L (3.80-5.40) m/uL RDW 15.9 H (11.5-15.5) % APTT (22.0-30.0) sec Sodium (137-145) mmol/L Carbon Dioxide (22-30) mmol/L Calcium (8.4-10.2) mg/dL
[2022-11-12] MEDS ORDERED: APIXABAN 5 MG TAB PO STA (13:50)
[2022-11-12 15:36] VITALS: BP 125/56; PULSE 51; TEMP 97.7
[2022-11-12] MEDS ORDERED: APIXABAN 5 MG TAB PO SCH (21:00)
--- NOTE | 2022-11-13 08:33 | P.DS ---
Providers Date of admission: 11/07/22 21:08 Attending physician: Kory Lancaster MD Consults: 11/07/22 21:05 Consult Physician Urgent Consulting Provider: Tiesha Tadeo Consult Reason/Comments: Acute on chronic vascular insufficiency left lower extremity Do you want consulting provider notified?: Already Contacted 11/08/22 09:58 Consult Physician Urgent Consulting Provider: Seamus Jones Consult Reason/Comments: History of A. fib, vascular surgery needing cardiology clearance Do you want consulting provider notified?: Yes 11/08/22 10:17 Consult Physician Routine Consulting Provider: Gail Wells Consult Reason/Comments: Hyperkalemia Do you want consulting provider notified?: Yes Primary care physician: Sydnie Reynolds Hospital Course: Diagnoses: Bilateral lower extremity ischemic changes with Gangrenous toes of the left footStatus post angioplasty to L-SFA in-stent stenosis History of coronary artery disease status post CABG Ischemic cardiomyopathy with ejection fraction of 35-40% patient clinically euvolemic, and not in heart failure clinically Paroxysmal atrial fibrillation with controlled chronic anemia Mildly elevated liver enzymes, symptomatic Chronic heart failure, no acute exacerbation History of CVA/TIA COPD, no acute exacerbation History of recent arthritis History of sleep apnea on CPAP/BiPAP History of right breast cancer status post mastectomy History of multiple sclerosis Peripheral neuropathy Hospital course: This is a 77-year-old female past medical history significant for peripheral vascular disease, A. fib who was recently admitted for CHF exacerbation as well as hepatic congestion with transaminitis presented to the ER for increased discoloration to her toes .Patient has severe peripheral vascular disease and managed by vascular surgery along with wound care in the outpatient setting. Patient was seen and evaluated recently underwent CT aNGiO with runoff with no plans for immediate intervention and was placed back on anticoagulation, vas cular surgery were planning intervention once cleared by cardiology. Patient was discharged on Thursday, beginning Thursday she started noticing blister on her left foot followed by bluish discoloration of her toes, wound care nurse was following up on her and she told her to come to ER.Patient was evaluated by vascular surgery and on 11/11 she underwent (Aortogram with bilateral lower extremity runoffs via right common femoral artery access under ultrasound guidance, selective left lower extremity femoral, tibial angiogram, percutaneous transluminal balloon angioplasty of the left SFA in-stent stenosis, percutaneous closure of the right common femoral artery with vascade device) postoperatively patient was doing well, ischemic changes looks improving and patient denies any pain in her lower extremities. I discussed the case with vascular surgery team today related to switch her to a eliquis and cleared her for discharge after PT/OT who recommended home with home care. Patient also was adamant not to go to subacute rehab upon discharge. On the day of discharge patient denies any other complaints, no chest pain or dyspnea. No change in urine or bowel habits. No fever. Patient was cleared for discharge by all consults is occluded vascular surgery to director chemistry Problems and management plan were discussed with the patient and he verbalized understanding and acceptance Patient was found stable and can be discharged home in guarded prognosis however he needs follow-up as an outpatient. Patient was instructed to follow up with PCP Dr. Reynolds within one week and patient agrees Patient was instructed to follow up with vascular surgeon Dr. Tadeo in 1-2 weeks and she agrees to call and make an appointment Physical exam Gen: patient is a AAOx3, no distress CVS: S1-S2, RRR, no murmur Lungs: B/L CTA, no wheezing Abdomen: soft, no distention, no tenderness, positive bowel sounds -Extremity: no leg edema or induration. Bilateral feet erythema, improving with some gangrenous changes on the left foot toes. Left with a posterior with no rupture., Improvement Time spent more than 35 minutes Patient Condition at Discharge: Serious Plan - Discharge Summary Discharge Rx Participant: No New Discharge Prescriptions: New Atorvastatin [Lipitor] 40 mg PO DAILY #30 tab lisinopriL [Zestril] 5 mg PO DAILY #30 tab HYDROcodone/APAP 5-325MG [[place] 5-325] 1 tab PO Q8HR PRN 5 Days #15 tab PRN Reason: Severe Pain (Scale 7 To 10) Continue Fluticasone/Umeclidin/Vilanter [Trelegy Ellipta 100-62.5-25] 1 puff INHALATION RT-DAILY PRN PRN Reason: Shortness Of Breath Gabapentin [Neurontin] 100 mg PO BID Acetaminophen Tab [Tylenol] 500 - 1,500 mg PO Q6H PRN PRN Reason: Pain Escitalopram [Lexapro] 20 mg PO DAILY Albuterol Nebulized [Ventolin Nebulized] 2.5 mg INHALATION RT-QID PRN PRN Reason: Shortness Of Breath Apixaban [Eliquis] 5 mg PO BID 30 Days #60 tab Furosemide [Lasix] 40 mg PO BID@0900,1600 30 Days #60 tab Nitroglycerin Sl Tabs [Nitrostat] 0.4 mg SUBLINGUAL Q5M PRN PRN Reason: Chest Pain Albuterol Sulfate [Ventolin HFA] 1 puff INHALATION RT-Q6H PRN PRN Reason: Shortness Of Breath ALPRAZolam [Xanax] 0.25 mg PO HS Collagenase [Santyl Ointment] 1 applic TOPICAL DAILY 30 Days #1 each Metoprolol Tartrate [Lopressor] 50 mg PO BID #60 tab Discontinued traMADol HCL 50 mg PO HS PRN PRN Reason: Pain Discharge Medication List Fluticasone/Umeclidin/Vilanter [Trelegy Ellipta 100-62.5-25] 1 puff INHALATION RT-DAILY PRN 11/01/21 [History] Nitroglycerin Sl Tabs [Nitrostat] 0.4 mg SUBLINGUAL Q5M PRN 04/16/22 [History] ALPRAZolam [Xanax] 0.25 mg PO HS 09/16/22 [History] Acetaminophen Tab [Tylenol] 500 - 1,500 mg PO Q6H PRN 09/16/22 [History] Albuterol Sulfate [Ventolin HFA] 1 puff INHALATION RT-Q6H PRN 09/16/22 [History] Gabapentin [Neurontin] 100 mg PO BID 09/16/22 [History] Collagenase [Santyl Ointment] 1 applic TOPICAL DAILY 30 Days #1 each 09/23/22 [Rx] Escitalopram [Lexapro] 20 mg PO DAILY 10/27/22 [History] Metoprolol Tartrate [Lopressor] 50 mg PO BID #60 tab 10/31/22 [Rx] Albuterol Nebulized [Ventolin Nebulized] 2.5 mg INHALATION RT-QID PRN 11/07/22 [History] Apixaban [Eliquis] 5 mg PO BID 30 Days #60 tab 11/12/22 [Rx] Atorvastatin [Lipitor] 40 mg PO DAILY #30 tab 11/12/22 [Rx] Furosemide [Lasix] 40 mg PO BID@0900,1600 30 Days #60 tab 11/12/22 [Rx] HYDROcodone/APAP 5-325MG [[place] 5-325] 1 tab PO Q8HR PRN 5 Days #15 tab 11/12/22 [Rx] lisinopriL [Zestril] 5 mg PO DAILY #30 tab 11/12/22 [Rx] Follow up Appointment(s)/Referral(s): Tiesha Tadeo DO [STAFF PHYSICIAN] - 11/26/22 2:15 pm [facility], [NON-STAFF] - Sydnie Reynolds MD [Primary Care Provider] - 11/18/22 11:40 am Patient Instructions/Handouts: Peripheral Vascular Disease (DC) Activity/Diet/Wound Care/Special Instructions: heart healthy diet activity is restricted till you see your doctor Discharge Disposition: HOME WITH HOME HEALTH SERVICES
== END 2022-11-12 16:56 | disposition home health service (06) | DRG 253 ==
LOC: EC 18:40 → 3SCARD 21:08
PROVIDERS: ADMIT Internal Medicine; ATTEND Internal Medicine
PROC: 047L3Z1 Dilation of Left Femoral Artery using Drug-Coated Balloon, Percutaneous Approach (ICD-10-PCS; principal; 2022-11-11 07:30)
PROC: B41D1ZZ Fluoroscopy of Aorta and Bilateral Lower Extremity Arteries using Low Osmolar Contrast (ICD-10-PCS; 2022-11-11 07:30)
DX: T82.856A Stenosis of peripheral vascular stent, initial encounter (principal); E11.52 Type 2 diabetes mellitus with diabetic peripheral angiopathy with gangrene; N17.9 Acute kidney failure, unspecified; I13.0 Hypertensive heart and chronic kidney disease with heart failure and stage 1 through stage 4 chronic kidney disease, or unspecified chronic kidney disease; J96.11 Chronic respiratory failure with hypoxia; I50.22 Chronic systolic (congestive) heart failure; I48.3 Typical atrial flutter; L03.116 Cellulitis of left lower limb; L97.812 Non-pressure chronic ulcer of other part of right lower leg with fat layer exposed; L97.815 Non-pressure chronic ulcer of other part of right lower leg with muscle involvement without evidence of necrosis; L97.419 Non-pressure chronic ulcer of right heel and midfoot with unspecified severity; L02.611 Cutaneous abscess of right foot; I70.234 Atherosclerosis of native arteries of right leg with ulceration of heel and midfoot; I70.223 Atherosclerosis of native arteries of extremities with rest pain, bilateral legs; K76.1 Chronic passive congestion of liver; I70.244 Atherosclerosis of native arteries of left leg with ulceration of heel and midfoot; G35 Multiple sclerosis; I69.998 Other sequelae following unspecified cerebrovascular disease; D50.8 Other iron deficiency anemias; J44.9 Chronic obstructive pulmonary disease, unspecified; I08.1 Rheumatic disorders of both mitral and tricuspid valves; I70.232 Atherosclerosis of native arteries of right leg with ulceration of calf; N18.9 Chronic kidney disease, unspecified; I25.10 Atherosclerotic heart disease of native coronary artery without angina pectoris; F17.210 Nicotine dependence, cigarettes, uncomplicated; G47.30 Sleep apnea, unspecified; R26.89 Other abnormalities of gait and mobility; I48.0 Paroxysmal atrial fibrillation; E78.5 Hyperlipidemia, unspecified; E87.5 Hyperkalemia; R53.81 Other malaise; R23.8 Other skin changes; I25.5 Ischemic cardiomyopathy; R01.1 Cardiac murmur, unspecified; Y71.1 Therapeutic (nonsurgical) and rehabilitative cardiovascular devices associated with adverse incidents; E11.42 Type 2 diabetes mellitus with diabetic polyneuropathy; E11.621 Type 2 diabetes mellitus with foot ulcer; E11.22 Type 2 diabetes mellitus with diabetic chronic kidney disease; E11.628 Type 2 diabetes mellitus with other skin complications; E11.622 Type 2 diabetes mellitus with other skin ulcer; Z95.5 Presence of coronary angioplasty implant and graft; Z95.820 Peripheral vascular angioplasty status with implants and grafts; Z95.1 Presence of aortocoronary bypass graft; Z90.11 Acquired absence of right breast and nipple; Z85.3 Personal history of malignant neoplasm of breast; Z88.8 Allergy status to other drugs, medicaments and biological substances; Z79.899 Other long term (current) drug therapy; Z79.01 Long term (current) use of anticoagulants
CPT/HCPCS: 36410; 36415; 37224; 75625; 75716; 76937; 78452; 80048; 80053; 83605; 84132; 85025; 85027; 85610; 85730; 93017; 96365; 96375; 99285

== ENCOUNTER 2022-12-03 12:25 | Day surgery (SDC) | payer MEDICARE ==
[~2022-12-03 12:25] MED LIST changes: +ALPRAZolam 0.5 MG TAB PO PRN; +ASPIRIN 325 MG TAB PO STA; +ATORVASTATIN 80 MG TAB PO STA; +HEPARIN SODIUM,PORCINE 10,000 UNIT in SODIUM CHLORIDE 0.9% 1,000 ML IRRIGATION PRN; +HEPARIN SODIUM,PORCINE 2,500 UNIT in SODIUM CHLORIDE 0.9% 250 ML IRRIGATION PRN; +NITROGLYCERIN SL TABS 0.4 MG TAB SUBLINGUAL PRN; -Pre Op ABX Message 1 EACH MISC MISCELLANE ONE
[2022-12-03] MEDS ORDERED: HYDROcodone/APAP 5-325MG 1 EACH TAB PO STA (13:04)
[2022-12-03] MEDS: ALPRAZolam 0.25 MG TAB PO PRN (13:10)
[2022-12-03] MEDS: SODIUM CHLORIDE 0.9% 1,000 ML in EMPTY BAG 1 BAG IV SCH (13:13)
[2022-12-03] MEDS ORDERED: ALBUTEROL NEBULIZED 2.5 MG/3 ML INHALATION PRN (13:37)
[2022-12-03] MEDS: SODIUM CHLORIDE 0.9% 1,000 ML IV SCH (15:09)
[2022-12-03] MEDS: NICOTINE 7MG/24HR PATCH TRANSDERM SCH (15:20)
[2022-12-03] MEDS: FUROSEMIDE 40 MG TAB PO SCH (15:20)
[2022-12-03] MEDS: HYDROcodone/APAP 5-325MG 1 EACH TAB PO PRN (17:27)
[2022-12-03] MEDS: ALBUTEROL NEBULIZED 2.5 MG/3 ML INHALATION PRN (18:41)
[2022-12-03] MEDS: GABAPENTIN 100 MG CAP PO SCH (20:12)
[2022-12-03] MEDS: HEPARIN SODIUM,PORCINE/PF 5,000 UNIT/0.5 ML SYRINGE SQ SCH (20:12)
[2022-12-03] MEDS: METOPROLOL TARTRATE 50 MG TAB PO SCH (20:12)
[2022-12-04] MEDS: HYDROcodone/APAP 5-325MG 1 EACH TAB PO PRN ×3 (02:33→18:30)
[2022-12-04] MEDS: SODIUM CHLORIDE 0.9% 1,000 ML in EMPTY BAG 1 BAG IV SCH (02:39)
[2022-12-04] MEDS: ATORVASTATIN 40 MG TAB PO SCH (06:53)
[2022-12-04] MEDS ORDERED: LIDOCAINE 1% INJ 10MG/ML (20 ML MDV) ONE (07:24)
[2022-12-04] MEDS ORDERED: IV FLUID CONTINUATION 850 ML IV ONE (07:28)
[2022-12-04] MEDS: MIDAZOLAM 2 MG/2 ML VIAL IV ONE ×2 (07:48→08:35)
[2022-12-04] MEDS ORDERED: LIDOCAINE 1% INJ 10MG/ML (20 ML MDV) SQ ONE (07:50)
[2022-12-04] MEDS ORDERED: fentaNYL (PF) 50 MCG/ML 2 ML AMP ONE (07:53)
[2022-12-04] MEDS: fentaNYL (PF) 50 MCG/ML 2 ML AMP IV ONE ×2 (07:55→08:14)
[2022-12-04] MEDS ORDERED: MIDAZOLAM 2 MG/2 ML VIAL IV ONE (09:00)
[2022-12-04] MEDS ORDERED: ASPIRIN 325 MG TAB PO SCH (09:00)
[2022-12-04] MEDS ORDERED: IOPAMIDOL-370 200ML BTL INJ ONE (09:37)
[2022-12-04] MEDS ORDERED: CLOPIDOGREL 75 MG TAB ONE (09:48)
[2022-12-04] MEDS ORDERED: CLOPIDOGREL 75 MG TAB PO ONE (09:54)
[2022-12-04] MEDS ORDERED: MAG HYDROX/AL HYDROX/SIMETH 30 ML CUP PO PRN (09:55)
[2022-12-04] MEDS ORDERED: RX INFO: IV CONTRAST WAS GIVEN 1 EACH MISC MISCELLANE PRN (09:55)
[2022-12-04] MEDS ORDERED: ATROPINE SULFATE 0.1 MG/ML 10ML SYRINGE IV PRN (09:55)
[2022-12-04] MEDS ORDERED: IOPAMIDOL-370 100ML BTL INJ ONE (09:55)
[2022-12-04] MEDS ORDERED: ZOLPIDEM 5 MG TAB PO PRN (09:55)
[2022-12-04] MEDS ORDERED: hydrALAZINE HCL 20 MG/ML 1 ML VIAL IVP STA (10:44)
[2022-12-04] MEDS: FUROSEMIDE 40 MG TAB PO SCH ×2 (12:17→16:52)
[2022-12-04 12:32] VITALS: BMI 17.1
[2022-12-04] MEDS ORDERED: HYDROmorphone 1 MG/ML 1 ML SYRINGE IVP STA (12:50)
[2022-12-04] MEDS: lisinopriL 5 MG TAB PO SCH (13:07)
[2022-12-04] MEDS: GABAPENTIN 100 MG CAP PO SCH ×2 (13:07→21:06)
[2022-12-04] MEDS: METOPROLOL TARTRATE 50 MG TAB PO SCH ×2 (13:07→21:06)
[2022-12-04] MEDS: HEPARIN SODIUM,PORCINE/PF 5,000 UNIT/0.5 ML SYRINGE SQ SCH ×2 (13:07→21:06)
[2022-12-04] MEDS: ESCITALOPRAM 20 MG TAB PO SCH (13:07)
[2022-12-04] MEDS: NICOTINE 7MG/24HR PATCH TRANSDERM SCH (13:07)
[2022-12-04] MEDS: ALBUTEROL NEBULIZED 2.5 MG/3 ML INHALATION PRN ×2 (14:29→18:45)
[2022-12-04] MEDS: SODIUM CHLORIDE 0.9% 1,000 ML IV SCH (16:40)
[2022-12-04 18:20] LABS: Glucose,Whole Blood 97 mg/dL (70-110)
--- NOTE | 2022-12-04 19:57 | P.PCN ---
Date of Procedure: 12/04/22 Operative Findings: CARDIAC CATHETERIZATION AND PERCUTANEOUS CORONARY INTERVENTION PERFORMING PHYSICIAN: Aakash Adame MD, [facility] PROCEDURE PERFORMED: 1. Selective right and left coronary angiogram 2. SVG to LAD angiogram, BAUTISTA to LCx angiogram, and SVG to RCA and 3.Successful stenting of proximal LCx using 0 x 15 Xience ALICIA with an excellent angiographic results with adjunctive use of IVUS 4. Selective right common femoral artery angiogram and ultrasound guided access of the right common femoral artery INDICATION: The patient is a pleasant 77-year-old female patient with coronary artery disease and status post CABG 3 with BAUTISTA to OM and SVG to LAD and SVG to RCA as well as diabetes and hypertension and dyslipidemia as well as lower excellent his PAD was diagnosed recently was critical limb ischemia of the left foot and she is in process of having vascular surgery she underwent myocardial perfusion imaging stress is because she was experiencing shortness of breath with exertion and that came in to be abnormal showing ischemia in the lateral wall as well as anterior wall of the LV. In the light of that the heart catheterization was advised COMPLICATION: None APPROACH: Right common femoral artery LEVEL OF SEDATION: Moderate with the sedation time off 45 minutes PROCEDURE DESCRIPTION: After obtaining an informed consent the patient was brought to the cardiac helper animal laboratory. The right common femoral artery was cannulated using micropuncture technique under ultrasound guidance, the micropuncture wire passed easily then I placed a 6-Saudi [place] 11 cm at the right common femoral artery. At that point I did selective right and left coronary angiogram. Selective left coronary angiogram was performed using JL4 catheter and selective right coronary angiogram was performed using JR4 catheter. After that coronary bypasses angiogram was performed. The BATUISTA to OM angiogram was performed using the JR4 catheter. The SVG to LAD angiogram was also performed using the JR4 catheter. The SVG to RCA angiogram was performed using multipurpose catheter. After that I decided to intervene on the left circumflex. The procedure was completed was no complication. SELECTIVE CORONARY ANGIOGRAM: The right coronary artery: Is chronically occluded by the proximal portion and appears to be heavily calcified Left main: Is calcified was mild to moderate disease. Bifurcates into an LCx and LAD The left circumflex: Proximal LCx appears to be extremely calcified with severe lesion appeared to be in the range of 70%. The circumflex after that gives rise into an OM1 which has an ostial lesion appears to be in the range of 70-80% and OM 2 which is occluded. The BAUTISTA was attached to OM 2. No competitive flow was identified. The left anterior descending artery: Is extremely calcified was subtotal occlusion in the midportion. CORONARY BYPASSES ANGIOGRAM: The SVG to LAD is patent with intermediate to severe disease in the midportion. The LAD distal to SVG anastomosis has a critical lesion. The BAUTISTA to OM is occluded The SVG to RCA is patent PCI OF THE LCx: Anticoagulation was initiated using heparin with continuous ACT monitoring throughout the case. I did engage the left main using a CLS guiding catheter. Subsequently attempting wiring the distal left circumflex going to M2 was unsuccessful. At that point I decided to fix the left circumflex in the proximal portion. Predilatation was performed initially using 2.5 mm balloon but the balloon was not fully inflated because the lesion was heavily calcified. Subsequently I did a predilatation again using this time 2.0 x 12 mm noncompliant balloon which was inflated under 20 lisa for 20 seconds. After that I did predilatation again using at that point chocolate balloon which was 2.0 mm balloon. I was able to open the artery using the chocolate balloon. After that using guide liner I was able to advance 3.0 x 15 mm stent where the stent was positioned under fluoroscopy guidance and deployed under 12 lisa for 20 seconds. I did before I deployed the stent intravascular ultrasound which showed a diameter around 3 mm and the artery was extremely calcified. The procedure was completed was no complication. CONCLUSION: 1. Extremely calcified right and left coronary system was severe triple-vessel coronary artery disease 2. Intermediate to severe disease involving the SVG to LAD and a critical disease involving the LAD distal to SVG anastomosis 3. Occluded BAUTISTA to OM/LCx 4. Patent SVG to RCA 5. Successful stenting of the proximal left circumflex as described above POSTPROCEDURE MANAGEMENT: 1. Dual antiplatelet therapy using aspirin and Plavix for 12 month 2. PCI of the LAD and assess the hemodynamic significance of the SVG to LAD using FFR 3. Follow-up with the patient
[2022-12-04 21:15] LABS: Glucose,Whole Blood 105 mg/dL (70-110)
[2022-12-04] MEDS: ALPRAZolam 0.25 MG TAB PO PRN (21:16)
[2022-12-05] MEDS: SODIUM CHLORIDE 0.9% 1,000 ML IV SCH (00:19)
[2022-12-05] MEDS: HYDROcodone/APAP 5-325MG 1 EACH TAB PO PRN ×2 (02:13→09:46)
[2022-12-05] MEDS: ALBUTEROL NEBULIZED 2.5 MG/3 ML INHALATION PRN ×2 (07:48→11:10)
[2022-12-05 07:49] LABS: Glucose,Whole Blood 76 mg/dL (70-110)
--- NOTE | 2022-12-05 07:54 | P.DS ---
Providers Attending physician: Aakash Adame Consults: 12/04/22 09:55 Consult Physician Routine Consulting Provider: [facility] Consult Reason/Comments: Post Interventional patient Do you want consulting provider notified?: Already Contacted Primary care physician: Sydnie Reynolds [facility] Course: The patient is a pleasant 77-year-old female patient with CAD and status post CABG as well as VAD hypertension and dyslipidemia who was admitted to the hospital yesterday and underwent a heart catheterization and that revealed severe disease involving the left circumflex which was stented. She was seen this morning. The right groin is soft and nontender with no bruises. The patient is going to be discharged home on anticoagulation and antiplatelet and I'll follow-up with the patient next week in the office Plan - Discharge Summary Discharge Rx Participant: Yes New Discharge Prescriptions: New Apixaban [Eliquis] 2.5 mg PO BID #180 tab Clopidogrel [Plavix] 75 mg PO DAILY #90 tablet Continue Fluticasone/Umeclidin/Vilanter [Trelegy Ellipta 100-62.5-25] 1 puff INHALATION RT-DAILY PRN PRN Reason: Shortness Of Breath Gabapentin [Neurontin] 100 mg PO BID Acetaminophen Tab [Tylenol] 500 - 1,500 mg PO Q6H PRN PRN Reason: Pain Escitalopram [Lexapro] 20 mg PO DAILY Albuterol Nebulized [Ventolin Nebulized] 2.5 mg INHALATION RT-QID PRN PRN Reason: Shortness Of Breath Atorvastatin [Lipitor] 40 mg PO DAILY #30 tab lisinopriL [Zestril] 5 mg PO DAILY #30 tab Furosemide [Lasix] 40 mg PO BID@0900,1600 30 Days #60 tab HYDROcodone/APAP 5-325MG [[place] 5-325] 1 tab PO Q8HR PRN 5 Days #15 tab PRN Reason: Severe Pain (Scale 7 To 10) Nitroglycerin Sl Tabs [Nitrostat] 0.4 mg SUBLINGUAL Q5M PRN PRN Reason: Chest Pain Albuterol Sulfate [Ventolin HFA] 1 puff INHALATION RT-Q6H PRN PRN Reason: Shortness Of Breath ALPRAZolam [Xanax] 0.25 mg PO HS Collagenase [Santyl Ointment] 1 applic TOPICAL DAILY 30 Days #1 each Metoprolol Tartrate [Lopressor] 50 mg PO BID #60 tab Discontinued Apixaban [Eliquis] 5 mg PO BID 30 Days #60 tab Discharge Medication List Fluticasone/Umeclidin/Vilanter [Trelegy Ellipta 100-62.5-25] 1 puff INHALATION RT-DAILY PRN 11/01/21 [History] Nitroglycerin Sl Tabs [Nitrostat] 0.4 mg SUBLINGUAL Q5M PRN 04/16/22 [History] ALPRAZolam [Xanax] 0.25 mg PO HS 09/16/22 [History] Acetaminophen Tab [Tylenol] 500 - 1,500 mg PO Q6H PRN 09/16/22 [History] Albuterol Sulfate [Ventolin HFA] 1 puff INHALATION RT-Q6H PRN 09/16/22 [History] Gabapentin [Neurontin] 100 mg PO BID 09/16/22 [History] Collagenase [Santyl Ointment] 1 applic TOPICAL DAILY 30 Days #1 each 09/23/22 [Rx] Escitalopram [Lexapro] 20 mg PO DAILY 10/27/22 [History] Metoprolol Tartrate [Lopressor] 50 mg PO BID #60 tab 10/31/22 [Rx] Albuterol Nebulized [Ventolin Nebulized] 2.5 mg INHALATION RT-QID PRN 11/07/22 [History] Atorvastatin [Lipitor] 40 mg PO DAILY #30 tab 11/12/22 [Rx] Furosemide [Lasix] 40 mg PO BID@0900,1600 30 Days #60 tab 11/12/22 [Rx] HYDROcodone/APAP 5-325MG [[place] 5-325] 1 tab PO Q8HR PRN 5 Days #15 tab 11/12/22 [Rx] lisinopriL [Zestril] 5 mg PO DAILY #30 tab 11/12/22 [Rx] Apixaban [Eliquis] 2.5 mg PO BID #180 tab 12/05/22 [Rx] Clopidogrel [Plavix] 75 mg PO DAILY #90 tablet 12/05/22 [Rx] Follow up Appointment(s)/Referral(s): Aakash Adame MD [STAFF PHYSICIAN] - 1 Week (APPOINTMENT MADE ON THURSDAY, November @ 2:15PM ) Patient Instructions/Handouts: Moderate Sedation (DC), After Radial Heart Catheterization (GEN) Activity/Diet/Wound Care/Special Instructions: *NO LIFTING, PUSHING, OR PULLING ANYTHING OVER 5 POUNDS FOR 5 DAYS *NO DRIVING FOR 3 DAYS *YOU CAN SHOWER TOMORROW BUT DO NOT SUBMERSE YOUR PUNCTURE SITE IN WATER FOR A FEW DAYS TO PREVENT INFECTION - SO NO TUB BATHS, POOLS, HOT TUBS, DISHES...ETC *ANY SIGNS OF BLEEDING (HARDNESS, SWELLING, OR EXCESSIVE BRUISING) HOLD DIRECT PRESSURE ON YOUR PUNCTURE SITE AND COME TO THE NEAREST EMERGENCY ROOM TO GET YOUR PUNCTURE SITE LOOKED AT - DO NOT DRIVE YOURSELF! EITHER CALL EMS OR HAVE SOMEONE DRIVE YOU!
[2022-12-05 08:04] LABS: Basophils % (A) 0 %; Eosinophils # (A) 0.1 k/uL (0-0.7); Eosinophils % (A) 1 %; HCT 41.7 % (34.0-46.0); HGB 12.7 gm/dL (11.4-16.0); Hypochromasia Marked; Lymphocytes # (A) 1.6 k/uL (1.0-4.8); Lymphocytes % (A) 12 %; MCH 29.9 pg (25.0-35.0); MCHC 30.3 g/dL (31.0-37.0); MCV 98.5 fL (80.0-100.0); Macrocytosis Slight; Mean Platelet Volume 8.2; Monocytes # (A) 0.5 k/uL (0-1.0); Monocytes % (A) 4 %; Neutrophils # (A) 10.4 k/uL (1.3-7.7); Neutrophils % (A) 82 %; Platelet Count 186 k/uL (150-450); RBC 4.24 m/uL (3.80-5.40); RDW 15.8 % (11.5-15.5); WBC 12.7 k/uL (3.8-10.6)
[2022-12-05 08:33] LABS: African American GFR (CKD) >90 (>60 ml/min/1.73 sqM); Anion Gap 8 mmol/L; Blood Urea Nitrogen 10 mg/dL (7-17); Calcium 8.5 mg/dL (8.4-10.2); Carbon Dioxide 27 mmol/L (22-30); Chloride 105 mmol/L (98-107); Glucose 84 mg/dL (74-99); Non-African American GFR(CKD) >90 (>60 ml/min/1.73 sqM); Potassium 4.1 mmol/L (3.5-5.1); Sodium 140 mmol/L (137-145)
[2022-12-05] MEDS ORDERED: ASPIRIN 81 MG PO SCH (09:00)
[2022-12-05] MEDS ORDERED: CLOPIDOGREL 75 MG TAB PO SCH (09:00)
[2022-12-05] MEDS: HEPARIN SODIUM,PORCINE/PF 5,000 UNIT/0.5 ML SYRINGE SQ SCH (09:59)
[2022-12-05] MEDS: ATORVASTATIN 40 MG TAB PO SCH (10:00)
[2022-12-05] MEDS: ESCITALOPRAM 20 MG TAB PO SCH (10:00)
[2022-12-05] MEDS: GABAPENTIN 100 MG CAP PO SCH (10:00)
[2022-12-05] MEDS: NICOTINE 7MG/24HR PATCH TRANSDERM SCH ×2 (10:00→13:37)
[2022-12-05] MEDS: lisinopriL 5 MG TAB PO SCH (10:00)
[2022-12-05] MEDS: FUROSEMIDE 40 MG TAB PO SCH (10:00)
[2022-12-05] MEDS: METOPROLOL TARTRATE 50 MG TAB PO SCH (10:00)
[2022-12-05 12:40] LABS: Glucose,Whole Blood 104 mg/dL (70-110)
[2022-12-05 14:30] VITALS: BP 108/55; PULSE 78; RESP 20; TEMP 98
== END 2022-12-05 15:48 | disposition home or self-care (01) ==
LOC: CATHCVL 12:25 → 6NMEDSUR 13:42 → CATHCVL 12-05 15:48
PROVIDERS: ATTEND Internal Medicine Interventional Cardiology
DX: I25.10 Atherosclerotic heart disease of native coronary artery without angina pectoris (principal); Z95.1 Presence of aortocoronary bypass graft; I25.9 Chronic ischemic heart disease, unspecified; I25.5 Ischemic cardiomyopathy; I10 Essential (primary) hypertension; E78.5 Hyperlipidemia, unspecified; E11.52 Type 2 diabetes mellitus with diabetic peripheral angiopathy with gangrene; J44.9 Chronic obstructive pulmonary disease, unspecified; F17.210 Nicotine dependence, cigarettes, uncomplicated; I48.0 Paroxysmal atrial fibrillation; I34.0 Nonrheumatic mitral (valve) insufficiency; Z86.718 Personal history of other venous thrombosis and embolism; Z79.82 Long term (current) use of aspirin; Z79.51 Long term (current) use of inhaled steroids; Z79.899 Other long term (current) drug therapy
CPT/HCPCS: 99152; 99153 ×2; 94640 ×5; 94760 ×2; 92978; 93455; 80048; 85025; C9600; C1769 ×7; C1887 ×4; C1725 ×4; C1894; C1753; C1874; S4990 ×3; J2250; J0360; J2001; J3010; J1170; J1644 ×4; Q9967 ×2

== ENCOUNTER 2022-12-18 12:22 | Observation (INO) | payer MEDICARE ==
[2022-12-18] MEDS ORDERED: KETOROLAC 15 MG/ML 1 ML VIAL IVP STA (12:53)
[2022-12-18] MEDS ORDERED: MORPHINE SULFATE 2 MG/ML SYRINGE IVP STA ×2 (12:54→14:10)
--- NOTE | 2022-12-18 13:07 | ED ---
General Adult HPI - General Chief complaint: Extremity Problem,Nontraumatic Stated complaint: lt foot wound Time Seen by Provider: 12/18/22 12:40 Source: patient, family, RN notes reviewed, old records reviewed Mode of arrival: wheelchair Limitations: no limitations - History of Present Illness Initial comments: This is 77-year-old female who presents emergency Department complaining that her left foot is extremely painful she has gangrene of the first and second toe. Patient states she wants amputated because she can't deal with the pain anymore. Patient states she has seen Dr. Tadeo but she cannot wait until I to see her again because the pain is excruciating. Patient states she was told to come in by her primary medical care doctor and get admitted and he cleared for surgery and hopefully they can do the procedure on this hospitalization. Patient denies any fever chills per patient denies any worsening of the gangrene she states it looks about the same for the last 3 weeks. Patient denies any other symptoms at this time. - Related Data Home Medications Medication Instructions Recorded Confirmed Fluticasone/Umeclidin/Vilanter 1 puff INHALATION RT-DAILY PRN 11/01/21 12/18/22 [Trelegy Ellipta 100-62.5-25] Nitroglycerin Sl Tabs [Nitrostat] 0.4 mg SL Q5M PRN 04/16/22 12/18/22 ALPRAZolam [Xanax] 0.25 mg PO HS 09/16/22 12/18/22 Acetaminophen Tab [Tylenol] 500 - 1,500 mg PO Q6H PRN 09/16/22 12/18/22 Albuterol Sulfate [Ventolin HFA] 1 puff INHALATION RT-Q6H PRN 09/16/22 12/18/22 Gabapentin [Neurontin] 100 mg PO BID 09/16/22 12/18/22 Escitalopram [Lexapro] 20 mg PO DAILY 10/27/22 12/18/22 Albuterol Nebulized [Ventolin 2.5 mg INHALATION RT-QID PRN 11/07/22 12/18/22 Nebulized] Atorvastatin [Lipitor] 40 mg PO HS 12/18/22 12/18/22 Collagenase [Santyl Ointment] 1 applic TOPICAL DAILY 12/18/22 12/18/22 HYDROcodone/APAP 5-325MG [Felicity 1 tab PO BID PRN 12/18/22 12/18/22 5-325] Metoprolol Tartrate [Lopressor] 75 mg PO BID 12/18/22 12/18/22 Previous Rx's Medication Instructions Recorded Furosemide [Lasix] 40 mg PO BID@0900,1600 30 Days #60 11/12/22 tab lisinopriL [Zestril] 5 mg PO DAILY #30 tab 11/12/22 Apixaban [Eliquis] 2.5 mg PO BID #180 tab 12/05/22 Clopidogrel [Plavix] 75 mg PO DAILY #90 tablet 12/05/22 Allergies Allergy/AdvReac Type Severity Reaction Status Date / Time sumatriptan [From Imitrex] AdvReac Chest Pain Verified 12/18/22 14:21 Review of Systems ROS Statement: Those systems with pertinent positive or pertinent negative responses have been documented in the HPI. ROS Other: All systems not noted in ROS Statement are negative. Past Medical History Past Medical History: Atrial Fibrillation, Coronary Artery Disease (CAD), Cancer, Heart Failure, COPD, CVA/TIA, Hyperlipidemia, Hypertension, Mitral Valve Prolapse (MVP), Neurologic Disorder, Osteoarthritis (OA), Pneumonia, Skin Disorder, Sleep Apnea/CPAP/BIPAP, Vascular Disorder Additional Past Medical History / Comment(s): BLISTER TO LEFT FOOT HAS BROKEN OPEN-HAS BANDAGE ON IT, STILL HAS WOUND TO RT LEG. right breast cancer (mastectomy november 2021).,. Multiple Sclerosis. ,PAD hx chronic wounds left foot/lower leg now healed., states feet are red & purple in color, edema both feet., peripheral neuropathy., CVA x2 Jul/Aug 2021 gait unsteady-uses w/c., generalized weakness., hx anemia with iron infusions., hx hospitalization for collapsed lung and respiratory failure with intubation., states lump on her vocal cord., oxygen at 2.5-4 L prn, sleep apnea (no machine) History of Any Multi-Drug Resistant Organisms: None Reported Past Surgical History: Appendectomy, Breast Surgery, Coronary Bypass/CABG, Heart Catheterization With Stent, Orthopedic Surgery, Tonsillectomy Additional Past Surgical History / Comment(s): 08/17/21 surgery at [place] for mass upper back., 11/2020 CABG 4 vessel, PCI/stents in , bilateral iliac arthrectomy/stents ., left foot wound debridements, bronchoscopy/lavage, bilateral breast biopsies, D&C, lumpectomy right breast 08/2021. Right mastectomy (11/26/21), BX TONGUE LESION AND MICROLARYNGOSCOPY + FOR CANCER Past Anesthesia/Blood Transfusion Reactions: No Reported Reaction, Motion Sickness Additional Past Anesthesia/Blood Transfusion Reaction / Comment(s): No hx blood transfusion. Date of Last Stent Placement:: 2008 Past Psychological History: Anxiety, Depression Smoking Status: Current every day smoker Past Alcohol Use History: None Reported Past Drug Use History: None Reported - Past Family History Father Family Medical History: No Reported History Additional Family Medical History / Comment(s): alcoholism, . Mother Family Medical History: Cancer Additional Family Medical History / Comment(s): Breast and brain cancer. General Exam - General Exam Comments Initial Comments: GENERAL: Patient is well-developed and well-nourished. Patient is nontoxic and well- hydrated and is in mild distress. ENT: Neck is soft and supple. No significant lymphadenopathy is noted. Oropharynx is clear. Moist mucous membranes. Neck has full range of motion without eliciting any pain. EYES: The sclera were anicteric and conjunctiva were pink and moist. Extraocular movements were intact and pupils were equal round and reactive to light. Eyelids were unremarkable. PULMONARY: Unlabored respirations. Good breath sounds bilaterally. No audible rales rhon chi or wheezing was noted. CARDIOVASCULAR: There is a regular rate and rhythm without any murmurs gallops or rubs. ABDOMEN: Soft and nontender with normal bowel sounds. SKIN: Skin is clear with no lesions or rashes and otherwise unremarkable. NEUROLOGIC: Patient is alert and oriented x3. Cranial nerves II through XII are grossly intact. Motor and sensory are also intact. Normal speech, volume and content. Symmetrical smile. MUSCULOSKELETAL: Left foot has gangrenous first and second toe. Foot is cold. Right foot is also cold and but there is no gangrene. LYMPHATICS: No significant lymphadenopathy is noted PSYCHIATRIC: Normal psychiatric evaluation. Limitations: no limitations Course Vital Signs 12/18/22 12:27 Temperature 97.8 F Pulse Rate 68 Respiratory 22 Rate Blood Pressure 110/56 O2 Sat by Pulse 95 Oximetry Medical Decision Making - Medical Decision Making EKG was interpreted by myself. EKG shows sinus rhythm with occasional PVC at 92 bpm AK interval 280 [place] is 89 kg 370 QTC is 420. Patient's EKG shows no ST segment elevation or depression. Was pt. sent in by a medical professional or institution (, [facility], [facility], urgent care, hospital, or care home...) When possible be specific @ -Patient was sent in by Dr. Reynolds Did you speak to anyone other than the patient for history (EMS, parent, family, police, friend...)? What history was obtained from this source @ -I spoke with Dr. Reynolds about the patient's condition currently Did you review nursing and triage notes (agree or disagree)? Why? @ -I reviewed and agree with nursing and triage notes Were old charts reviewed (outside hosp., previous admission, EMS record, old EKG, old radiological studies, urgent care reports/EKG's, care home records)? Report findings @ -I reviewed prior charts and lab work on this patient Differential Diagnosis (chest pain, altered mental status, abdominal pain women, abdominal pain men, vaginal bleeding, weakness, fever, dyspnea, syncope, hea dache, dizziness, GI bleed, back pain, seizure, CVA, palpatations, mental health, musculoskeletal)? @ -Differential Musculoskeletal Gangrene toes, cellulitis, arterial insufficiency, this is not LIST EKG interpreted by me (3pts min.). @ -As above X-rays interpreted by me (1pt min.). @ -None done CT interpreted by me (1pt min.). @ -None done U/S interpreted by me (1pt. min.). @ -None done What testing was considered but not performed or refused? (CT, X-rays, U/S, labs)? Why? @ -None What meds were considered but not given or refused? Why? @ -None Did you discuss the management of the patient with other professionals (professionals i.e. [facility], [facility], lab, RT, psych nurse, social worker clinical, diamond saw operator, teacher, media liaison officer, case maker)? Give summary @ -With Dr. Tadeo she agreed that the patient should be admitted she will be on consult. I spoke with Dr. Rouse he agreed to admit the patient. Was smoking cessation discussed for >3mins.? @ -No Was critical care preformed (if so, how long)? @ -No Were there social determinants of health that impacted care today? How? (Homelessness, low income, unemployed, alcoholism, drug addiction, transportation, low edu. Level, literacy, decrease access to med. care, assisted, rehab)? @ -No Was there de-escalation of care discussed even if they declined (Discuss DNR or withdrawal of care, Hospice)? DNR status @ -No What co-morbidities impacted this encounter? (DM, HTN, Smoking, COPD, CAD, Cancer, CVA, ARF, Chemo, Hep., AIDS, mental health diagnosis, sleep apnea, morbid obesity)? @ -None Was patient admitted / discharged? Hospital course, mention meds given and route, prescriptions, significant lab abnormalities, going to OR and other pertinent info. @ -Patient's foot had gangrene on the left first and second toe . They did not look to be an acute infection there was no white count. I spoke with Dr. Tadeo she agreed to admit the patient admitted the patient I consulted her. I spoke with Dr. Rouse he agreed to admit the patient wrote admitting orders. Patient received morphine and Toradol for pain Undiagnosed new problem with uncertain prognosis? @ -No Drug Therapy requiring intensive monitoring for toxicity (Heparin, Nitro, Insulin, Cardizem)? @ -No Were any procedures done? @ -No Diagnosis/symptom? @ -Gangrene toes Acute, or Chronic, or Acute on Chronic? @ -Acute Uncomplicated (without systemic symptoms) or Complicated (systemic symptoms)? @ -Complicated Side effects of treatment? @ -No Exacerbation, Progression, or Severe Exacerbation? @ -No Poses a threat to life or bodily function? How? (Chest pain, [place], ID, pneumonia, PE, COPD, DKA, ARF, appy, cholecystitis, CVA, Diverticulitis, Homicidal, Suicidal, threat to staff... and all critical care pts) @ -Yes this could lead to sepsis and end organ dysfunction - Lab Data Result diagrams: 12/18/22 13:14 12/18/22 13:14 Lab Results 12/18/22 12/18/22 12/18/22 Range/Units 13:14 13:14 13:14 WBC 9.8 (3.8-10.6) k/uL RBC 4.04 (3.80-5.40) m/uL Hgb 12.1 (11.4-16.0) gm/dL Hct 38.2 (34.0-46.0) % MCV 94.4 (80.0-100.0) fL MCH 30.0 (25.0-35.0) pg MCHC 31.8 (31.0-37.0) g/dL RDW 15.8 H (11.5-15.5) % Plt Count 341 (150-450) k/uL MPV 7.7 Neutrophils % 74 % Lymphocytes % 21 % Monocytes % 4 % Eosinophils % 1 % Basophils % 0 % Neutrophils # 7.2 (1.3-7.7) k/uL Lymphocytes # 2.0 (1.0-4.8) k/uL Monocytes # 0.4 (0-1.0) k/uL Eosinophils # 0.1 (0-0.7) k/uL Basophils # 0.0 (0-0.2) k/uL Hypochromasia Slight Sodium 142 (137-145) mmol/L Potassium 3.3 L (3.5-5.1) mmol/L Chloride 101 (98-107) mmol/L Carbon Dioxide 36 H (22-30) mmol/L Anion Gap 5 mmol/L BUN 15 (7-17) mg/dL Creatinine 0.46 L (0.52-1.04) mg/dL Est GFR (CKD-EPI)AfAm >90 (>60 ml/min/1.73 sqM) Est GFR (CKD-EPI)NonAf >90 (>60 ml/min/1.73 sqM) Glucose 129 H (74-99) mg/dL Plasma Lactic Acid Harrison 3.0 H* (0.7-2.0) mmol/L Calcium 8.3 L (8.4-10.2) mg/dL Magnesium 2.1 (1.6-2.3) mg/dL Total Bilirubin 0.4 (0.2-1.3) mg/dL AST 29 (14-36) U/L ALT 17 (4-34) U/L Alkaline Phosphatase 132 H (38-126) U/L Total Protein 6.3 (6.3-8.2) g/dL Albumin 3.0 L (3.5-5.0) g/dL Disposition Clinical Impression: Gangrene of toe Disposition: ADMITTED IP TO THIS HOSP Referrals: Sydnie Reynolds MD [Primary Care Provider] - 1-2 days Time of Disposition: 14:42
[2022-12-18 13:37] LABS: Basophils % (A) 0 %; Eosinophils # (A) 0.1 k/uL (0-0.7); Eosinophils % (A) 1 %; HCT 38.2 % (34.0-46.0); HGB 12.1 gm/dL (11.4-16.0); Hypochromasia Slight; Lymphocytes % (A) 21 %; MCHC 31.8 g/dL (31.0-37.0); MCV 94.4 fL (80.0-100.0); Mean Platelet Volume 7.7; Monocytes # (A) 0.4 k/uL (0-1.0); Monocytes % (A) 4 %; Neutrophils # (A) 7.2 k/uL (1.3-7.7); Neutrophils % (A) 74 %; Platelet Count 341 k/uL (150-450); RBC 4.04 m/uL (3.80-5.40); RDW 15.8 % (11.5-15.5); WBC 9.8 k/uL (3.8-10.6)
[2022-12-18 13:54] LABS: ALT 17 U/L (4-34); AST 29 U/L (14-36); African American GFR (CKD) >90 (>60 ml/min/1.73 sqM); Alkaline Phosphatase 132 U/L (38-126); Anion Gap 5 mmol/L; Blood Urea Nitrogen 15 mg/dL (7-17); Calcium 8.3 mg/dL (8.4-10.2); Carbon Dioxide 36 mmol/L (22-30); Chloride 101 mmol/L (98-107); Glucose 129 mg/dL (74-99); Magnesium 2.1 mg/dL (1.6-2.3); Non-African American GFR(CKD) >90 (>60 ml/min/1.73 sqM); Potassium 3.3 mmol/L (3.5-5.1); Sodium 142 mmol/L (137-145); Total Bilirubin 0.4 mg/dL (0.2-1.3); Total Protein 6.3 g/dL (6.3-8.2)
[2022-12-18] MEDS ORDERED: SODIUM CHLORIDE 0.9% 1,000 ML IV ONE (14:42)
[2022-12-18] MEDS: MORPHINE SULFATE 2 MG/ML SYRINGE IVP PRN (22:39)
[2022-12-18] MEDS ORDERED: SYMBICORT 80-4.5 MCG INHALER INHALATION PRN (23:15)
[2022-12-18] MEDS ORDERED: ALBUTEROL NEBULIZED 2.5 MG/3 ML INHALATION PRN (23:15)
[2022-12-18] MEDS ORDERED: ACETAMINOPHEN TAB 500 MG TAB PO PRN (23:15)
[2022-12-18] MEDS ORDERED: HYDROcodone/APAP 5-325MG 1 EACH TAB PO PRN (23:15)
--- NOTE | 2022-12-18 23:16 | P.HPIM ---
History of Present Illness H&P Date: 12/18/22 Chief Complaint: left leg pain Patient is a 77-year-old female with a known history of paroxysmal atrial fibrillation on anticoagulation with Eliquis, coronary artery history of CABG four-vessel, history of cardiac catheterization and stent placement, hypertension, hyperlipidemia, history of CVA/TIA, right breast cancer status postmastectomy, obstructive sleep apnea, multiple sclerosis, peripheral vascular disease and chronic left foot/toes gangrenous changes presents to ER with complaints of worsening pain of the left lower extremity. Patient has been having symptoms for the past few months. Patient has gangrenous changes of the left first second and third toes. Patient was seen by vascular surgery previously. Presently acute excluding pain. Denies any fever or chills. Denies any nausea vomiting abdominal pain or diarrhea. No cough or sputum production. EKG showed sinus rhythm with frequent ventricular premature complexes. Patient is on Plavix and apixaban at home. Patient stopped taking his medications for possible surgery. Seen by her primary care physician and was suggested to go to ER. Laboratory data showed WBC 9.8 hemoglobin 12.1 and platelets 341 Sodium 142 potassium 3.3 chloride 101 bicarb is 36 BUN 15 and creatinine 0.46 and lactic acid 3.0 and albumin 3.0 liver enzymes are not elevated. Review of Systems Constitutional: Patient denies any fever or chills . no Generalized weakness. Abdomen: Patient denied any nausea or vomiting or abd. pain Cardiovascular: Patient denies any chest pain or short of breath no palpitations. Respiratory: patient denied any cough . no sputum production. No shortness of b reath Neurologic: Patient denied any numbness or tingling headache. Musculoskeletal: Patient denies any complaints of joint swelling or deformity. Left leg pain. Skin: Negative Psychiatric: Negative Endocrine: No heat or cold intolerance. No recent weight gain. Genitourinary: No dysuria or hematuria. All other 14 point ROS negative except the above Past Medical History Past Medical History: Atrial Fibrillation, Coronary Artery Disease (CAD), Cancer, Heart Failure, COPD, CVA/TIA, Hyperlipidemia, Hypertension, Mitral Valve Prolapse (MVP), Neurologic Disorder, Osteoarthritis (OA), Pneumonia, Skin Disorder, Sleep Apnea/CPAP/BIPAP, Vascular Disorder Additional Past Medical History / Comment(s): BLISTER TO LEFT FOOT HAS BROKEN O PEN-HAS BANDAGE ON IT, STILL HAS WOUND TO RT LEG. right breast cancer (mastectomy november 2021).,. Multiple Sclerosis. ,PAD hx chronic wounds left foot/lower leg now healed., states feet are red & purple in color, edema both feet., peripheral neuropathy., CVA x2 Jul/Aug 2021 gait unsteady-uses w/c., generalized weakness., hx anemia with iron infusions., hx hospitalization for collapsed lung and respiratory failure with intubation., states lump on her vocal cord., oxygen at 2.5-4 L prn, sleep apnea (no machine) History of Any Multi-Drug Resistant Organisms: None Reported Past Surgical History: Appendectomy, Breast Surgery, Coronary Bypass/CABG, Heart Catheterization With Stent, Orthopedic Surgery, Tonsillectomy Additional Past Surgical History / Comment(s): 08/17/21 surgery at [place] for mass upper back., 11/2020 CABG 4 vessel, PCI/stents in , bilateral iliac arthrectomy/stents ., left foot wound debridements, bronchoscopy/lavage, bilateral breast biopsies, D&C, lumpectomy right breast 08/2021. Right mastectomy (11/26/21), BX TONGUE LESION AND MICROLARYNGOSCOPY + FOR CANCER Past Anesthesia/Blood Transfusion Reactions: No Reported Reaction, Motion Sickness Additional Past Anesthesia/Blood Transfusion Reaction / Comment(s): No hx blood transfusion. Date of Last Stent Placement:: 2008 Past Psychological History: Anxiety, Depression Additional Psychological History / Comment(s): Pt's due to Covid beginning of July 2021. Smoking Status: Current every day smoker Past Alcohol Use History: None Reported Additional Past Alcohol Use History / Comment(s): started smoking 1960 (up to 3 ppd), quit may 2020 and restarted (07/28-1 ppd). Past Drug Use History: None Reported Additional Drug Use History / Comment(s): . - Past Family History Father Family Medical History: No Reported History Additional Family Medical History / Comment(s): alcoholism, . Mother Family Medical History: Cancer Additional Family Medical History / Comment(s): Breast and brain cancer. Medications and Allergies Home Medications Medication Instructions Recorded Confirmed Type Fluticasone/Umeclidin/Vilanter 1 puff INHALATION RT-DAILY PRN 11/01/21 12/18/22 History [Trelegy Ellipta 100-62.5-25] Nitroglycerin Sl Tabs [Nitrostat] 0.4 mg SL Q5M PRN 04/16/22 12/18/22 History ALPRAZolam [Xanax] 0.25 mg PO HS 09/16/22 12/18/22 History Acetaminophen Tab [Tylenol] 500 - 1,500 mg PO Q6H PRN 09/16/22 12/18/22 History Albuterol Sulfate [Ventolin HFA] 1 puff INHALATION RT-Q6H PRN 09/16/22 12/18/22 History Gabapentin [Neurontin] 100 mg PO BID 09/16/22 12/18/22 History Escitalopram [Lexapro] 20 mg PO DAILY 10/27/22 12/18/22 History Albuterol Nebulized [Ventolin 2.5 mg INHALATION RT-QID PRN 11/07/22 12/18/22 History Nebulized] Furosemide [Lasix] 40 mg PO BID@0900,1600 30 Days #60 11/12/22 12/18/22 Rx tab lisinopriL [Zestril] 5 mg PO DAILY #30 tab 11/12/22 12/18/22 Rx Apixaban [Eliquis] 2.5 mg PO BID #180 tab 12/05/22 12/18/22 Rx Clopidogrel [Plavix] 75 mg PO DAILY #90 tablet 12/05/22 12/18/22 Rx Atorvastatin [Lipitor] 40 mg PO HS 12/18/22 12/18/22 History Collagenase [Santyl Ointment] 1 applic TOPICAL DAILY 12/18/22 12/18/22 History HYDROcodone/APAP 5-325MG [[place] 1 tab PO BID PRN 12/18/22 12/18/22 History 5-325] Metoprolol Tartrate [Lopressor] 75 mg PO BID 12/18/22 12/18/22 History Allergies Allergy/AdvReac Type Severity Reaction Status Date / Time sumatriptan [From Imitrex] AdvReac Chest Pain Verified 12/18/22 14:21 Physical Exam Vitals: Vital Signs Temp Pulse Pulse Resp BP BP Pulse Ox 12/18/22 20:00 98.7 F 78 21 128/63 92 L 12/18/22 16:41 98.4 F 73 15 130/63 99 12/18/22 15:09 67 18 137/72 92 L 12/18/22 12:27 97.8 F 68 22 110/56 95 Intake and Output 12/18/22 12/18/22 12/19/22 14:59 22:59 06:59 Output Total 50 Balance -50 Output: Urine 50 Other: Voiding Method External Catheter Weight 38.555 kg 38.555 kg PHYSICAL EXAMINATION: Patient is lying in the bed comfortably, no acute distress, awake alert and oriented.. Appears to be in pain. HEENT: Normocephalic. Neck is supple. Pupils reactive. Nostrils clear. Oral cavity is moist. Neck reveals no JVD, carotid bruits, or thyromegaly. CHEST EXAMINATION: Trachea is central. Symmetrical expansion. Lung howard clear to auscultation and percussion. CARDIAC: Normal S1, S2 with no gallops. +murmur ABDOMEN: Soft. Bowel sounds present. Nontender. No organomegaly. No abdominal bruits. Extremities: reveal no edema. No clubbing or cyanosis Patient does have left first second and third toe dry gangrenous changes Neurologically awake, alert, oriented x3 with well-coordinated movements. No focal deficits noted Skin: No rash or skin lesions. Psychiatric: Coperative. Nonsuicidal, Musculoskeletal: No joint swelling or deformity. Normal range of motion. Results CBC & Chem 7: 12/18/22 13:14 12/19/22 14:17 Labs: Abnormal Lab Results - Last 24 Hours (Table) 12/18/22 12/18/22 12/18/22 Range/Units 13:14 13:14 13:14 RDW 15.8 H (11.5-15.5) % Potassium 3.3 L (3.5-5.1) mmol/L Carbon Dioxide 36 H (22-30) mmol/L Creatinine 0.46 L (0.52-1.04) mg/dL Glucose 129 H (74-99) mg/dL Plasma Lactic Acid Harrison 3.0 H* (0.7-2.0) mmol/L Calcium 8.3 L (8.4-10.2) mg/dL Alkaline Phosphatase 132 H (38-126) U/L Albumin 3.0 L (3.5-5.0) g/dL 12/18/22 Range/Units 16:42 RDW (11.5-15.5) % Potassium (3.5-5.1) mmol/L Carbon Dioxide (22-30) mmol/L Creatinine (0.52-1.04) mg/dL Glucose (74-99) mg/dL Plasma Lactic Acid Harrison 2.7 H* (0.7-2.0) mmol/L Calcium (8.4-10.2) mg/dL Alkaline Phosphatase (38-126) U/L Albumin (3.5-5.0) g/dL Thrombosis Risk Factor Assmnt - DVT/VTE Prophylaxis DVT/VTE Prophylaxis: Pharmacologic Prophylaxis ordered - Choose All That Apply Any of the Below Risk Factors Present?: Yes Each Factor Represents 1 point: Swollen legs (current) Other Risk Factors: Yes Each Risk Factor Represents 3 Points: Age 75 years or older Thrombosis Risk Factor Assessment Total Risk Factor Score: 4 Thrombosis Risk Factor Assessment Level: Moderate Risk Assessment and Plan Assessment: Left lower extremity severe pain with gangrenous changes to the first second and third toes. History of recent left SFA angioplasty of in-stent stenosis in October 2022 Peripheral vascular disease Paroxysmal atrial fibrillation on anticoagulation with Eliquis Coronary artery disease with history of CABG four-vessel. Recent history of stent placement to proximal left circumflex artery on 12/04/[address] Montoya. Chronic CHF with systolic dysfunction ejection fraction 35 to 40% Hypertension Hyperlipidemia History of mitral valve prolapse Bilateral peripheral neuropathy nondiabetic Obstructive sleep apnea not on CPAP History of right breast cancer status postmastectomy in November 2021 History of CVA x2 in July 2021 with gait unsteadiness and uses walker COPD on home oxygen at 2 to 4 L via nasal cannula. Anxiety/depression Currently everyday smoker DVT prophylaxis patient is already on full anticoagulation Plan: Patient will be continued on telemetry monitoring. Continue with pain management with morphine, Tylenol and gabapentin. Continue with antiplatelets and cardiology and vascular surgery recommendations. Eliquis is on hold. Continue with DuoNebs and Symbicort and oxygen supplementation. Follow-up closely. Prognosis guarded with multiple medical problems and comorbid conditions. Time with Patient: Greater than 30
[2022-12-19] MEDS: MORPHINE SULFATE 2 MG/ML SYRINGE IVP PRN ×3 (04:28→13:34)
[2022-12-19] MEDS: CLOPIDOGREL 75 MG TAB PO SCH ×2 (07:17→08:30)
--- NOTE | 2022-12-19 08:18 | P.GSCN ---
History of Present Illness Consult date: 12/19/22 Reason for Consult: Gangrene toes Requesting physician: Jose J Benson History of present illness: Sharmila is a 77-year-old female with known severe chronic peripheral arterial disease. She presented to the emergency department with complaints of increased pain to her left foot stating she is unable to walk on it, it's getting worse and she is not able to tolerate any longer. She has dry gangrene to her first through third toes, she states no change. She did have some bleeding. She's denies any fever, chills, body aches. Denies any chest pain, has some shortness of breath however this is chronic wears home O2. Past medical history includes atrial fibrillation, coronary artery disease heart failure, COPD, CVA/TIA, hyperlipidemia, hypertension, mitral valve prolapse, sleep apnea, chronic anemia, and underwent recent cardiac catheterization with stenting of the proximal left circumflex on 12/04/2022. Patient is supposed to be on Eliquis 2.5 mg twice a day and Plavix 75 mg daily however states she stopped taking them on Thursday in case she was quite Possible intervention. Jones labs WBC 9.8 hemoglobin 12 platelet count 341,000 sodium 142 potassium 3.3 BUN 15 creatinine 0.46 glucose 129 lactic acid 3.0 Review of Systems A 14 point review systems was completed all pertinent positives and negatives as stated in the HPI. Past Medical History Past Medical History: Atrial Fibrillation, Coronary Artery Disease (CAD), Cancer, Heart Failure, COPD, CVA/TIA, Hyperlipidemia, Hypertension, Mitral Valve Prolapse (MVP), Neurologic Disorder, Osteoarthritis (OA), Pneumonia, Skin Disorder, Sleep Apnea/CPAP/BIPAP, Vascular Disorder Additional Past Medical History / Comment(s): BLISTER TO LEFT FOOT HAS BROKEN OPEN-HAS BANDAGE ON IT, STILL HAS WOUND TO RT LEG. right breast cancer (mastectomy november 2021).,. Multiple Sclerosis. ,PAD hx chronic wounds left foot/lower leg now healed., states feet are red & purple in color, edema both feet., peripheral neuropathy., CVA x2 Jul/Aug 2021 gait unsteady-uses w/c., generalized weakness., hx anemia with iron infusions., hx hospitalization for collapsed lung and respiratory failure with intubation., states lump on her vocal cord., oxygen at 2.5-4 L prn, sleep apnea (no machine) History of Any Multi-Drug Resistant Organisms: None Reported Past Surgical History: Appendectomy, Breast Surgery, Coronary Bypass/CABG, Heart Catheterization With Stent, Orthopedic Surgery, Tonsillectomy Additional Past Surgical History / Comment(s): 08/17/21 surgery at [place] for mass upper back., 11/2020 CABG 4 vessel, PCI/stents in , bilateral iliac arthrectomy/stents ., left foot wound debridements, bronchoscopy/lavage, bilateral breast biopsies, D&C, lumpectomy right breast 08/2021. Right mastectomy (11/26/21), BX TONGUE LESION AND MICROLARYNGOSCOPY + FOR CANCER Past Anesthesia/Blood Transfusion Reactions: No Reported Reaction, Motion Sickness Additional Past Anesthesia/Blood Transfusion Reaction / Comm: No hx blood transfusion. Date of Last Stent Placement:: 2008 Past Psychological History: Anxiety, Depression Additional Psychological History / Comment(s): Pt's due to Covid beginning of July 2021. Smoking Status: Current every day smoker Past Alcohol Use History: None Reported Additional Past Alcohol Use History / Comment(s): started smoking 1960 (up to 3 ppd), quit may 2020 and restarted (07/28-1 ppd). Past Drug Use History: None Reported Additional Drug Use History / Comment(s): . - Past Family History Father Family Medical History: No Reported History Additional Family Medical History / Comment(s): alcoholism, . Mother Family Medical History: Cancer Additional Family Medical History / Comment(s): Breast and brain cancer. Medications and Allergies Home Medications Medication Instructions Recorded Confirmed Type Fluticasone/Umeclidin/Vilanter 1 puff INHALATION RT-DAILY PRN 11/01/21 12/18/22 History [Trelegy Ellipta 100-62.5-25] Nitroglycerin Sl Tabs [Nitrostat] 0.4 mg SL Q5M PRN 04/16/22 12/18/22 History ALPRAZolam [Xanax] 0.25 mg PO HS 09/16/22 12/18/22 History Acetaminophen Tab [Tylenol] 500 - 1,500 mg PO Q6H PRN 09/16/22 12/18/22 History Albuterol Sulfate [Ventolin HFA] 1 puff INHALATION RT-Q6H PRN 09/16/22 12/18/22 History Gabapentin [Neurontin] 100 mg PO BID 09/16/22 12/18/22 History Escitalopram [Lexapro] 20 mg PO DAILY 10/27/22 12/18/22 History Albuterol Nebulized [Ventolin 2.5 mg INHALATION RT-QID PRN 11/07/22 12/18/22 History Nebulized] Furosemide [Lasix] 40 mg PO BID@0900,1600 30 Days #60 11/12/22 12/18/22 Rx tab lisinopriL [Zestril] 5 mg PO DAILY #30 tab 11/12/22 12/18/22 Rx Apixaban [Eliquis] 2.5 mg PO BID #180 tab 12/05/22 12/18/22 Rx Clopidogrel [Plavix] 75 mg PO DAILY #90 tablet 12/05/22 12/18/22 Rx Atorvastatin [Lipitor] 40 mg PO HS 12/18/22 12/18/22 History Collagenase [Santyl Ointment] 1 applic TOPICAL DAILY 12/18/22 12/18/22 History HYDROcodone/APAP 5-325MG [[place] 1 tab PO BID PRN 12/18/22 12/18/22 History 5-325] Metoprolol Tartrate [Lopressor] 75 mg PO BID 12/18/22 12/18/22 History Allergies Allergy/AdvReac Type Severity Reaction Status Date / Time sumatriptan [From Imitrex] AdvReac Chest Pain Verified 12/18/22 14:21 Surgical - Exam Vital Signs Temp Pulse Resp BP Pulse Ox 97.8 F 68 22 110/56 95 12/18/22 12:27 12/18/22 12:27 12/18/22 12:27 12/18/22 12:27 12/18/22 12:27 General appearance: The patient is alert, oriented, appears in no acute distress. On 2 L nasal cannula. HET: Head is normocephalic and atraumatic. Pupils are equal and reactive. Neck: Supple. Heart: Regular. Lungs: Equal expansion, normal respiratory effort. Abdomen: Soft, nontender, nondistended. Extremities: Palpable bilateral femoral pulses. No edema. Right foot with sloughing of skin, pink, great toe with area of ischemia, good capillary refill, PT Doppler signal present. Left foot cool to the touch, some discoloration up through the mid dorsal aspect of foot, with dry gangrene of first through third toes. PT Doppler signal present. Neurological: No focal deficits. Sensorimotor intact. Results - Labs 12/18/22 13:14 12/18/22 13:14 Abnormal Lab Results - Last 24 Hours (Table) 12/18/22 12/18/22 12/18/22 Range/Units 13:14 13:14 13:14 RDW 15.8 H (11.5-15.5) % Potassium 3.3 L (3.5-5.1) mmol/L Carbon Dioxide 36 H (22-30) mmol/L Creatinine 0.46 L (0.52-1.04) mg/dL Glucose 129 H (74-99) mg/dL Plasma Lactic Acid Harrison 3.0 H* (0.7-2.0) mmol/L Calcium 8.3 L (8.4-10.2) mg/dL Alkaline Phosphatase 132 H (38-126) U/L Albumin 3.0 L (3.5-5.0) g/dL 12/18/22 Range/Units 16:42 RDW (11.5-15.5) % Potassium (3.5-5.1) mmol/L Carbon Dioxide (22-30) mmol/L Creatinine (0.52-1.04) mg/dL Glucose (74-99) mg/dL Plasma Lactic Acid Harrison 2.7 H* (0.7-2.0) mmol/L Calcium (8.4-10.2) mg/dL Alkaline Phosphatase (38-126) U/L Albumin (3.5-5.0) g/dL Diabetes panel 12/18/22 Range/Units 13:14 Sodium 142 (137-145) mmol/L Potassium 3.3 L (3.5-5.1) mmol/L Chloride 101 (98-107) mmol/L Carbon Dioxide 36 H (22-30) mmol/L BUN 15 (7-17) mg/dL Creatinine 0.46 L (0.52-1.04) mg/dL Glucose 129 H (74-99) mg/dL Calcium 8.3 L (8.4-10.2) mg/dL AST 29 (14-36) U/L ALT 17 (4-34) U/L Alkaline Phosphatase 132 H (38-126) U/L Total Protein 6.3 (6.3-8.2) g/dL Albumin 3.0 L (3.5-5.0) g/dL Calcium panel 12/18/22 Range/Units 13:14 Calcium 8.3 L (8.4-10.2) mg/dL Albumin 3.0 L (3.5-5.0) g/dL Pituitary panel 12/18/22 Range/Units 13:14 Sodium 142 (137-145) mmol/L Potassium 3.3 L (3.5-5.1) mmol/L Chloride 101 (98-107) mmol/L Carbon Dioxide 36 H (22-30) mmol/L BUN 15 (7-17) mg/dL Creatinine 0.46 L (0.52-1.04) mg/dL Glucose 129 H (74-99) mg/dL Calcium 8.3 L (8.4-10.2) mg/dL Adrenal panel 12/18/22 Range/Units 13:14 Sodium 142 (137-145) mmol/L Potassium 3.3 L (3.5-5.1) mmol/L Chloride 101 (98-107) mmol/L Carbon Dioxide 36 H (22-30) mmol/L BUN 15 (7-17) mg/dL Creatinine 0.46 L (0.52-1.04) mg/dL Glucose 129 H (74-99) mg/dL Calcium 8.3 L (8.4-10.2) mg/dL Total Bilirubin 0.4 (0.2-1.3) mg/dL AST 29 (14-36) U/L ALT 17 (4-34) U/L Alkaline Phosphatase 132 H (38-126) U/L Total Protein 6.3 (6.3-8.2) g/dL Albumin 3.0 L (3.5-5.0) g/dL Assessment and Plan Assessment: 1. Chronic bilateral peripheral arterial disease with left toes one through 3 dry gangrene 2. Status post recent left SFA angioplasty of in stent stenosis 11/11/2022 3. Coronary artery disease status post recent stenting of the proximal left circumflex on 12/04/2022 4. Atrial fibrillation on Eliquis 2.5 mg BID 5. History of TIA 6. COPD Plan: 1. Continue with symptomatic and supportive care 2. Hold eliquis 3. Resume Plavix 4. Consult to cardiology for cardiac clearance and anesthesia recommendation for left toe amputation/transmetatarsal amputation 5. Continue pain management Thank you for this consultation, further recommendations forthcoming from vascular surgeon. The impression and plan of care has been dictated as directed. I performed a history and examination of this patient, discussed the same with the dictator. I agree with the dictator's note ,documented as a scribe. Any additional findings or plans will be noted.
[2022-12-19] MEDS: HEPARIN SODIUM,PORCINE/PF 5,000 UNIT/0.5 ML SYRINGE SQ SCH ×2 (08:30→20:58)
[2022-12-19] MEDS: METOPROLOL TARTRATE 50 MG TAB PO SCH ×2 (08:30→20:58)
[2022-12-19] MEDS: lisinopriL 5 MG TAB PO SCH (08:30)
[2022-12-19] MEDS: ESCITALOPRAM 20 MG TAB PO SCH (08:30)
[2022-12-19] MEDS: GABAPENTIN 100 MG CAP PO SCH ×2 (08:30→20:58)
[2022-12-19] MEDS ORDERED: APIXABAN 2.5 MG TABLET PO SCH (09:00)
[2022-12-19] MEDS: IPRATROPIUM 0.5 MG/2.5 ML NEBU INHALATION SCH ×4 (09:04→20:48)
[2022-12-19] MEDS: HYDROcodone/APAP 5-325MG 1 EACH TAB PO PRN ×3 (11:19→21:08)
--- NOTE | 2022-12-19 12:03 | P.CRDCN ---
History of Present Illness History of present illness: HISTORY OF PRESENT ILLNESS: This is a 77-year-old female with a past medical history significant for peripheral vascular disease, atrial fibrillation, breast cancer, coronary artery disease with previous CABG in 2020 and subsequent stenting, COPD, multiple sclerosis, ischemic cardiomyopathy, and CVA. Patient follows in the office with Dr. Adame. We have been asked to see the patient in consultation for cardiac clearance. Patient examined at the bedside. Patient denies chest pain or pressure. She denies shortness of breath. She denies dizziness or lightheaded ness. Patient is scheduled to undergo left-sided transmetatarsal amputation tomorrow with vascular surgery. Vital signs are stable. * EKG reveals sinus mechanism with PACs and PVCs * Laboratory data: WBC 9.8. Hemoglobin 12.1 platelet count 341. Sodium 142. Potassium 3.3. BUN 15. Creatinine 0.46. Lactic acid 3.0. Repeat 1.6. * Current home cardiac medications include lisinopril 5 mg daily, metoprolol tartrate 75 mg twice a day, Lasix 40 mg twice a day, Plavix 75 mg daily, Lipitor 40 mg at night, and Eliquis 2.5mg BID * Most recent echocardiogram obtained in October 2022 revealing ejection fraction 35-40%, mild pulmonary hypertension, moderate mitral regurgitation and mild tricuspid regurgitation [id number] pulmonic regurgitation and small pericardial effusion * Cardiac catheterization history: 12/04/[address] Montoya revealing extremely calcified right and left coronary system with severe triple vessel coronary artery disease. Intermediate to severe disease involving the SVG to LAD and a critical disease involving the LAD distal to the SVG anastomosis. Occluded BAUTISTA to OM/left circumflex. Patent SVG to RCA. Patient underwent successful stenting of the proximal left circumflex. REVIEW OF SYSTEMS: At the time of my exam: CONSTITUTIONAL: Denies fever or chills. HEENT: Denies blurred vision, vision changes, or eye pain. Denies hemoptysis CARDIOVASCULAR: Denies chest pain. Denies orthopnea. Denies PND. Denies palpitations RESPIRATORY: Denies shortness of breath. GASTROINTESTINAL: Denies abdominal pain. Denies nausea or vomiting. HEMATOLOGIC: Denies bleeding disorders. GENITOURINARY: Denies any blood in urine. SKIN: Denies pruitis. Denies rash. PHYSICAL EXAM: VITAL SIGNS: Reviewed. GENERAL: Well-developed in no acute distress. HEENT: Head is normocephalic. Pupils are equal, round. Sclerae anicteric. Mucous membranes of the mouth are moist. Neck supple. No JVD or thyromegaly LUNGS: Respirations even and unlabored. Lungs essentially clear to auscultation bilaterally. HEART: Regular rate and rhythm. S1 and S2 heard. ABDOMEN: Soft. Nondistended. Nontender. EXTREMITIES: Normal range of motion. No clubbing or cyanosis. Necrosis noted to left toes. NEUROLOGIC: Awake and alert. Oriented x 3. ASSESSMENT: Left lower extremity pain with difficulty ambulating Dry gangrene of left toes 13 Peripheral arterial disease Recent left SFA angioplasty of in-stent stenosis, October 2022 Coronary artery disease with previous four-vessel CABG in 2020 and recent stenting of proximal left circumflex on 12/04/2022 Paroxysmal atrial fibrillation Ischemic cardiomyopathy, EF 35-40% COPD Multiple sclerosis History of breast cancer History of CVA PLAN: No need to repeat echo cardiac emesis was performed in October 2022 Continue current cardiac medications Do not discontinue Plavix May hold Eliquis for 1-2 days for surgery. Resume postoperatively. Patient scheduled for transmetatarsal amputation tomorrow with vascular surgery Patient is high risk to undergo surgery however there are no absolute contraindications from a cardiac standpoint Further recommendations pending patient's course Nurse practitioner note has been reviewed by physician. Signing provider agrees with the documented findings, assessment, and plan of care. Past Medical History Past Medical History: Atrial Fibrillation, Coronary Artery Disease (CAD), Cancer, Heart Failure, COPD, CVA/TIA, Hyperlipidemia, Hypertension, Mitral Valve Prolapse (MVP), Neurologic Disorder, Osteoarthritis (OA), Pneumonia, Skin Disorder, Sleep Apnea/CPAP/BIPAP, Vascular Disorder Additional Past Medical History / Comment(s): BLISTER TO LEFT FOOT HAS BROKEN OPEN-HAS BANDAGE ON IT, STILL HAS WOUND TO RT LEG. right breast cancer (mastectomy november 2021).,. Multiple Sclerosis. ,PAD hx chronic wounds left foot/lower leg now healed., states feet are red & purple in color, edema both feet., peripheral neuropathy., CVA x2 Jul/Aug 2021 gait unsteady-uses w/c., generalized weakness., hx anemia with iron infusions., hx hospitalization for collapsed lung and respiratory failure with intubation., states lump on her voc al cord., oxygen at 2.5-4 L prn, sleep apnea (no machine) History of Any Multi-Drug Resistant Organisms: None Reported Past Surgical History: Appendectomy, Breast Surgery, Coronary Bypass/CABG, Heart Catheterization With Stent, Orthopedic Surgery, Tonsillectomy Additional Past Surgical History / Comment(s): 08/17/21 surgery at [place] for mass upper back., 11/2020 CABG 4 vessel, PCI/stents in , bilateral iliac arthrectomy/stents ., left foot wound debridements, bronchoscopy/lavage, bilateral breast biopsies, D&C, lumpectomy right breast 08/2021. Right mastectomy (11/26/21), BX TONGUE LESION AND MICROLARYNGOSCOPY + FOR CANCER Past Anesthesia/Blood Transfusion Reactions: No Reported Reaction, Motion Sickness Additional Past Anesthesia/Blood Transfusion Reaction / Comment(s): No hx blood transfusion. Date of Last Stent Placement:: 2008 Past Psychological History: Anxiety, Depression Additional Psychological History / Comment(s): Pt's due to Covid beginning of July 2021. Smoking Status: Current every day smoker Past Alcohol Use History: None Reported Additional Past Alcohol Use History / Comment(s): started smoking 1960 (up to 3 ppd), quit may 2020 and restarted (07/28-1 ppd). Past Drug Use History: None Reported Additional Drug Use History / Comment(s): . - Past Family History Father Family Medical History: No Reported History Additional Family Medical History / Comment(s): alcoholism, . Mother Family Medical History: Cancer Additional Family Medical History / Comment(s): Breast and brain cancer. Medications and Allergies Home Medications Medication Instructions Recorded Confirmed Type Fluticasone/Umeclidin/Vilanter 1 puff INHALATION RT-DAILY PRN 11/01/21 12/18/22 History [Trelegy Ellipta 100-62.5-25] Nitroglycerin Sl Tabs [Nitrostat] 0.4 mg SL Q5M PRN 04/16/22 12/18/22 History ALPRAZolam [Xanax] 0.25 mg PO HS 09/16/22 12/18/22 History Acetaminophen Tab [Tylenol] 500 - 1,500 mg PO Q6H PRN 09/16/22 12/18/22 History Albuterol Sulfate [Ventolin HFA] 1 puff INHALATION RT-Q6H PRN 09/16/22 12/18/22 History Gabapentin [Neurontin] 100 mg PO BID 09/16/22 12/18/22 History Escitalopram [Lexapro] 20 mg PO DAILY 10/27/22 12/18/22 History Albuterol Nebulized [Ventolin 2.5 mg INHALATION RT-QID PRN 11/07/22 12/18/22 History Nebulized] Furosemide [Lasix] 40 mg PO BID@0900,1600 30 Days #60 11/12/22 12/18/22 Rx tab lisinopriL [Zestril] 5 mg PO DAILY #30 tab 11/12/22 12/18/22 Rx Apixaban [Eliquis] 2.5 mg PO BID #180 tab 12/05/22 12/18/22 Rx Clopidogrel [Plavix] 75 mg PO DAILY #90 tablet 12/05/22 12/18/22 Rx Atorvastatin [Lipitor] 40 mg PO HS 12/18/22 12/18/22 History Collagenase [Santyl Ointment] 1 applic TOPICAL DAILY 12/18/22 12/18/22 History HYDROcodone/APAP 5-325MG [[place] 1 tab PO BID PRN 12/18/22 12/18/22 History 5-325] Metoprolol Tartrate [Lopressor] 75 mg PO BID 12/18/22 12/18/22 History Allergies Allergy/AdvReac Type Severity Reaction Status Date / Time sumatriptan [From Imitrex] AdvReac Chest Pain Verified 12/18/22 14:21 Physical Exam Vitals: Vital Signs Temp Pulse Pulse Resp BP BP Pulse Ox 12/19/22 09:05 97 12/19/22 07:07 98.5 F 109 H 14 155/82 97 12/19/22 01:56 98.7 F 98 20 159/71 93 L 12/18/22 20:00 98.7 F 78 21 128/63 92 L 12/18/22 16:41 98.4 F 73 15 130/63 99 12/18/22 15:09 67 18 137/72 92 L 12/18/22 12:27 97.8 F 68 22 110/56 95 Intake and Output 12/18/22 12/19/22 12/19/22 22:59 06:59 14:59 Output Total 50 Balance -50 Output: Urine 50 Other: Voiding Method External Catheter External Catheter # Voids 2 Weight 38.555 kg Results 12/18/22 13:14 12/18/22 13:14 Cardiac Enzymes 12/18/22 Range/Units 13:14 AST 29 (14-36) U/L CBC 12/18/22 Range/Units 13:14 WBC 9.8 (3.8-10.6) k/uL RBC 4.04 (3.80-5.40) m/uL Hgb 12.1 (11.4-16.0) gm/dL Hct 38.2 (34.0-46.0) % Plt Count 341 (150-450) k/uL Comprehensive Metabolic Panel 12/18/22 Range/Units 13:14 Sodium 142 (137-145) mmol/L Potassium 3.3 L (3.5-5.1) mmol/L Chloride 101 (98-107) mmol/L Carbon Dioxide 36 H (22-30) mmol/L BUN 15 (7-17) mg/dL Creatinine 0.46 L (0.52-1.04) mg/dL Glucose 129 H (74-99) mg/dL Calcium 8.3 L (8.4-10.2) mg/dL AST 29 (14-36) U/L ALT 17 (4-34) U/L Alkaline Phosphatase 132 H (38-126) U/L Total Protein 6.3 (6.3-8.2) g/dL Albumin 3.0 L (3.5-5.0) g/dL Current Medications Generic Name Dose Route Start Last Admin Trade Name Freq PRN Reason Stop Dose Admin Acetaminophen 500 mg 12/18/22 23:15 Acetaminophen Tab 500 Mg Tab PO Q6H PRN Pain Hydrocodone Bitart/Acetaminophen 1 each 12/19/22 08:02 12/19/22 11:19 Hydrocodone/Apap 5-325mg 1 Each Tab PO 1 each Q4H PRN Administration Severe Pain (Scale 7 to 10) Albuterol Sulfate 2.5 mg 12/18/22 23:15 Albuterol Nebulized 2.5 Mg/3 Ml INHALATION RT-QID PRN Shortness Of Breath Alprazolam 0.25 mg 12/19/22 21:00 Alprazolam 0.25 Mg Tab PO HS [facility] Atorvastatin Calcium 40 mg 12/19/22 21:00 Atorvastatin 40 Mg Tab PO HS [facility] Budesonide/Formoterol Fumarate 2 puff 12/18/22 23:15 Symbicort 80-4.5 Mcg Inhaler INHALATION RT-BID PRN Shortness Of Breath Clopidogrel Bisulfate 75 mg 12/19/22 09:00 12/19/22 08:30 Clopidogrel 75 Mg Tab PO 75 mg DAILY MARY ANNE Administration Escitalopram Oxalate 20 mg 12/19/22 09:00 12/19/22 08:30 Escitalopram 20 Mg Tab PO 20 mg DAILY MARY ANNE Administration Gabapentin 100 mg 12/19/22 09:00 12/19/22 08:30 Gabapentin 100 Mg Cap PO 100 mg BID MARY ANNE Administration Heparin Sodium (Porcine) 5,000 unit 12/19/22 09:00 12/19/22 08:30 Heparin Sodium,Porcine/Pf 5,000 Unit/0.5 Ml Syringe SQ 5,000 unit Q12HR MARY ANNE Administration Ipratropium [place] 0.5 mg 12/19/22 08:00 12/19/22 11:39 Ipratropium 0.5 Mg/2.5 Ml Nebu INHALATION Not Given RT-QID [facility] Lisinopril 5 mg 12/19/22 09:00 12/19/22 08:30 Lisinopril 5 Mg Tab PO 5 mg DAILY MARY ANNE Administration Metoprolol Tartrate 75 mg 12/19/22 09:00 12/19/22 08:30 Metoprolol Tartrate 50 Mg Tab PO 75 mg BID MARY ANNE Administration Morphine Sulfate 2 mg 12/18/22 14:43 12/19/22 08:29 Morphine Sulfate 2 Mg/Ml Syringe IVP 2 mg Q4HR PRN Administration Pain/Discomfort Intake and Output 12/18/22 12/19/22 12/19/22 22:59 06:59 14:59 Output Total 50 Balance -50 Output: Urine 50 Other: Voiding Method External Catheter External Catheter # Voids 2 Weight 38.555 kg 12/18/22 13:14 12/18/22 13:14
[2022-12-19 12:40] VITALS: BMI 17.7
[2022-12-19 15:19] LABS: African American GFR (CKD) >90 (>60 ml/min/1.73 sqM); Anion Gap 5 mmol/L; Blood Urea Nitrogen 12 mg/dL (7-17); Carbon Dioxide 29 mmol/L (22-30); Chloride 105 mmol/L (98-107); Glucose 88 mg/dL (74-99); Non-African American GFR(CKD) >90 (>60 ml/min/1.73 sqM); Potassium 4.4 mmol/L (3.5-5.1); Sodium 139 mmol/L (137-145)
[2022-12-19] MEDS: ALPRAZolam 0.25 MG TAB PO SCH (20:58)
[2022-12-19] MEDS: ATORVASTATIN 40 MG TAB PO SCH (20:58)
--- NOTE | 2022-12-20 00:01 | P.PN ---
Subjective Progress Note Date: 12/19/22 Patient is a 77-year-old female with a known history of paroxysmal atrial fibrillation on anticoagulation with Eliquis, coronary artery history of CABG four-vessel, history of cardiac catheterization and stent placement, hypertension, hyperlipidemia, history of CVA/TIA, right breast cancer status postmastectomy, obstructive sleep apnea, multiple sclerosis, peripheral vascular disease and chronic left foot/toes gangrenous changes presents to ER with complaints of worsening pain of the left lower extremity. Patient has been having symptoms for the past few months. Patient has gangrenous changes of the left first second and third toes. Patient was seen by vascular surgery previously. Presently acute excluding pain. Denies any fever or chills. Denies any nausea vomiting abdominal pain or diarrhea. No cough or sputum production. EKG showed sinus rhythm with frequent ventricular premature complexes. Patient is on Plavix and apixaban at home. Patient stopped taking his medications for possible surgery. Seen by her primary care physician and was suggested to go to ER. Laboratory data showed WBC 9.8 hemoglobin 12.1 and platelets 341 Sodium 142 potassium 3.3 chloride 101 bicarb is 36 BUN 15 and creatinine 0.46 and lactic acid 3.0 and albumin 3.0 liver enzymes are not elevated. 12/19/2022 Patient is currently lying in the bed. Awake alert and oriented. No complaints of chest pain or shortness of breath. Left lower extremity pain is better. No complaints of fever or chills. No cough or sputum production. Patient was seen by vascular surgery and is planning for left foot ray amp utation. Eliquis is on hold. Cardiology recommends to continue Plavix with recent history of PCI. Lactic acid came down to 1.6. Sodium 139 potassium 4.4 chloride 105 bicarb is 29 BUN 12 and creatinine 0.39 and calcium 8.0. Current medications reviewed. Objective - Vital Signs Vital signs: Vital Signs Temp 98.6 F 12/19/22 20:00 Pulse 70 12/19/22 20:00 Resp 16 12/19/22 20:00 BP 149/75 12/19/22 20:00 Pulse Ox 97 12/19/22 20:00 FiO2 Intake & Output 12/19/22 12/19/22 12/20/22 06:59 18:59 06:59 Intake Total 800 Output Total 450 Balance 350 Weight 38.555 kg Intake: Oral 800 Output: Urine 450 Other: Voiding Method External Catheter External Catheter External Catheter # Voids 2 # Bowel Movements 1 - Exam PHYSICAL EXAMINATION: Patient is lying in the bed comfortably, no acute distress, awake alert and oriented. HEENT: Normocephalic. Neck is supple. Pupils reactive. Nostrils clear. Oral cavity is moist. Neck reveals no JVD, carotid bruits, or thyromegaly. CHEST EXAMINATION: Trachea is central. Symmetrical expansion. Lung howard clear to auscultation and percussion. CARDIAC: Normal S1, S2 with no gallops. +murmur ABDOMEN: Soft. Bowel sounds present. Nontender. No organomegaly. No abdominal bruits. Extremities: reveal no edema. No clubbing or cyanosis Patient does have left first second and third toe dry gangrenous changes Neurologically awake, alert, oriented x3 with well-coordinated movements. No focal deficits noted Skin: No rash or skin lesions. Psychiatric: Coperative. Nonsuicidal, Musculoskeletal: No joint swelling or deformity. Normal range of motion. - Labs CBC & Chem 7: 12/18/22 13:14 12/19/22 14:17 Labs: Abnormal Lab Results - Last 24 Hours (Table) 12/19/22 Range/Units 14:17 Creatinine 0.39 L (0.52-1.04) mg/dL Calcium 8.0 L (8.4-10.2) mg/dL Assessment and Plan Assessment: Left lower extremity severe pain with gangrenous changes to the first second and third toes. History of recent left SFA angioplasty of in-stent stenosis in October 2022 Peripheral vascular disease Paroxysmal atrial fibrillation on anticoagulation with Eliquis Coronary artery disease with history of CABG four-vessel. Recent history of stent placement to proximal left circumflex artery on 12/04/[address] Montoya. Chronic CHF with systolic dysfunction ejection fraction 35 to 40% Hypertension Hyperlipidemia History of mitral valve prolapse Bilateral peripheral neuropathy nondiabetic Obstructive sleep apnea not on CPAP History of right breast cancer status postmastectomy in November 2021 History of CVA x2 in July 2021 with gait unsteadiness and uses walker COPD on home oxygen at 2 to 4 L via nasal cannula. Anxiety/depression Currently everyday smoker DVT prophylaxis patient is already on full anticoagulation Plan: Patient will be continued on telemetry monitoring. Continue with pain management with morphine, Tylenol and gabapentin. Will be continued fluids. Vascular surgery and cardiology is on board. Eliquis is on hold. Vascular surgery is planning for left foot ray amputation. Eliquis is on hold. Continue with DuoNebs and Symbicort and oxygen supplementation. Follow-up closely. Prognosis guarded with multiple medical problems and comorbid conditions. Time with Patient: Greater than 30
[2022-12-20 00:36] LABS: Anisocytosis Slight; Basophils % (A) 0 %; Eosinophils # (A) 0.1 k/uL (0-0.7); Eosinophils % (A) 1 %; HCT 33.9 % (34.0-46.0); HGB 10.6 gm/dL (11.4-16.0); Hypochromasia Slight; Lymphocytes # (A) 2.5 k/uL (1.0-4.8); Lymphocytes % (A) 25 %; MCH 29.4 pg (25.0-35.0); MCHC 31.2 g/dL (31.0-37.0); MCV 94.4 fL (80.0-100.0); Mean Platelet Volume 8.1; Monocytes # (A) 0.4 k/uL (0-1.0); Monocytes % (A) 4 %; Neutrophils # (A) 6.9 k/uL (1.3-7.7); Neutrophils % (A) 68 %; Platelet Count 273 k/uL (150-450); RBC 3.59 m/uL (3.80-5.40); RDW 16.4 % (11.5-15.5); WBC 10.1 k/uL (3.8-10.6)
[2022-12-20] MEDS ORDERED: MIDAZOLAM 2 MG/2 ML VIAL IVP ONE (07:52)
[2022-12-20] MEDS: HEPARIN SODIUM,PORCINE/PF 5,000 UNIT/0.5 ML SYRINGE SQ SCH (07:57)
[2022-12-20] MEDS ORDERED: LACTATED RINGERS 1,000 ML IV ONE (08:04)
[2022-12-20] MEDS ORDERED: DEXAMETHASONE SOD PHOSPHATE 4 MG/ML 1 ML VIAL ONE (08:05)
[2022-12-20] MEDS ORDERED: PROPOFOL 10 MG/ML 20 ML VIAL IV ONE (08:05)
[2022-12-20] MEDS ORDERED: MIDAZOLAM 2 MG/2 ML VIAL ONE (08:05)
[2022-12-20] MEDS ORDERED: ROPIVACAINE 5 MG/ML 30 ML VIAL ONE (08:05)
[2022-12-20] MEDS ORDERED: KETAMINE 10 MG/ML 20 ML VIAL ONE (08:05)
[2022-12-20] MEDS: IPRATROPIUM 0.5 MG/2.5 ML NEBU INHALATION SCH ×4 (08:06→20:36)
--- NOTE | 2022-12-20 08:44 | P.ANPRN ---
Procedure Note - Anesthesia - Nerve Block Performed Left Adductor Canal Single Time Out Performed: Yes Date of Procedure: 12/20/22 Procedure Start Time: 07:51 Procedure Stop Time: 07:55 Location of Patient: PreOp Indication: Acute Post-Operative Pain, Requested by Surgeon Sedation Type: Sedate with meaningful contact maintained Preparation: Sterile Prep, Sterile Dressing Position: Supine Catheter: None Needle Types: Facet Needle Gauge: 21 Ultrasound used to visualize needle placement: Yes Ultrasound used to observe medication spread: Yes Injectate: 0.5% Ropivacaine (see comment for volume) (10 ml + decadron 5 mg) Blood Aspirated: No Pain Paresthesia on Injection Noted: No Resistance on Injection: Normal Image Stored and Saved: Yes Events: Uneventful and Well Tolerated Left Popliteal Single Time Out Performed: Yes Date of Procedure: 12/20/22 Procedure Start Time: 07:56 Procedure Stop Time: 08:02 Location of Patient: PreOp Indication: Acute Post-Operative Pain, Requested by Surgeon Sedation Type: Sedate with meaningful contact maintained Preparation: Sterile Prep, Sterile Dressing Position: Right Lateral Catheter: None Needle Types: Facet Needle Gauge: 21 Ultrasound used to visualize needle placement: Yes Ultrasound used to observe medication spread: Yes Injectate: 0.5% Ropivacaine (see comment for volume) (10 ml + decadron 5 mg) Blood Aspirated: No Pain Paresthesia on Injection Noted: No Resistance on Injection: Normal Image Stored and Saved: Yes Events: Uneventful and Well Tolerated
--- NOTE | 2022-12-20 08:57 | P.OP ---
Date of Procedure: 12/20/22 Description of Procedure: DATE OF SERVICE: 12/20/2022 SURGEON: Tiesha Tadeo DO PREOPERATIVE DIAGNOSIS: Dry gangrene left first through third toes POSTOPERATIVE DIAGNOSIS: Same OPERATION: Left transmetatarsal amputation ANESTHESIA: Regional block with sedation ESTIMATED BLOOD LOSS: 10 mL SPECIMENS REMOVED: Left forefoot COMPLICATIONS: None DESCRIPTION OF PROCEDURE: This patient is a 77-year-old female with history of peripheral vascular disease who recently underwent revascularization and subsequently has dry gangrene of her first through third toes with some cyanotic changes to the periwound area. She has pain in the foot and at this time is recommended to undergo transmetatarsal amputation. Risks and benefits were discussed including but not limited to bleeding, infection and poor wound healing. She seemingly understands and is willing to proceed. She maintains a palpable posterior tibial pulse. The patient was brought to the operating room under local IV sedation and previous block was performed. An incision at the mid foot was performed and plantar flap and subsequently deepened through the skin, fat, and tendons. Tendons were divided prior to plantar and dorsal aspect of the forefoot. The bone saw was used to transect the metatarsals. Electrocautery was used to remove the plantar portion of the tissues. Hemostasis was achieved with electrocautery. The rasp was utilized to remove sharp edges from the bone. The wound was irrigated. The flap was then reapproximated with interrupted sutures of 3-0 Vicryl in the subcutaneous space and skin with 3-0 nylon interrupted mattress suture. Dressing applied. The patient tolerated the procedure well.
[2022-12-20 09:42] LABS: Prothrombin Time 10.6 sec (9.0-12.0)
[2022-12-20] MEDS: METOPROLOL TARTRATE 50 MG TAB PO SCH ×2 (10:20→20:27)
[2022-12-20] MEDS: ESCITALOPRAM 20 MG TAB PO SCH (10:20)
[2022-12-20] MEDS: GABAPENTIN 100 MG CAP PO SCH ×2 (10:20→20:28)
[2022-12-20] MEDS: CLOPIDOGREL 75 MG TAB PO SCH (10:20)
[2022-12-20] MEDS: lisinopriL 5 MG TAB PO SCH (10:20)
[2022-12-20 10:24] LABS: African American GFR (CKD) 103.3 (60.0-200.0); Anion Gap 10.3 mmol/L (10.00-18.00); BUN/Creat Ratio 21.17 Ratio (12.00-20.00); Blood Urea Nitrogen 12.7 mg/dL (9.0-27.0); Calcium 8.9 mg/dL (8.7-10.3); Carbon Dioxide 23.7 mmol/L (20.0-27.5); Non-African American GFR(CKD) 89.2 (60.0-200.0); Potassium 6.1 mmol/L (3.5-5.5)
--- NOTE | 2022-12-20 12:41 | P.PN ---
Subjective Progress Note Date: 12/20/22 The patient is a 77-year-old female who follows in the office with Dr. Montoya. She is currently admitted to the hospital with gangrene of her left first through third toes. Cardiology was consulted for preoperative clearance and recommendations. The patient underwent left transmetatarsal amputation this morning with Dr. Tadeo. The patient tolerated the procedure well. The patient has no complaints other than some minor discomfort in her left lower extremity. She denies any cardiac symptoms and requests to be left alone to rest. GENERAL: Well-appearing, well-nourished and in no acute distress. NECK: Supple without JVD or thyromegaly. LUNGS: Breath sounds diminished to auscultation bilaterally. Respiration equal and unlabored. No wheezes, rales or rhonchi. HEART: Regular rate and rhythm without murmurs, rubs or gallops. S1 and S2 heard. EXTREMITIES: Normal range of motion, mild edema. Cyanosis and discoloration to right lower extremity. Left lower extremity in surgical bandage. TELEMETRY: Sinus rhythm IMPRESSION: Severe peripheral vascular disease Status post left transmetatarsal amputation Coronary artery disease Status post recent stenting of the left circumflex Paroxysmal atrial fibrillation Ischemic cardiomyopathy, EF 35-40% Hyperkalemia, defer to primary team PLAN: Resume Eliquis when cleared by surgery No further recommendations from the cardiac standpoint Outpatient follow-up with primary research scientist Dr. Montoya I am dictating on behalf of Dr Luis Armijo's history/physical and assessment/plan. Objective - Vital Signs Vital signs: Vital Signs Temp 98.0 F 12/20/22 09:55 Pulse 69 12/20/22 10:20 Resp 17 12/20/22 10:20 BP 153/80 12/20/22 09:55 Pulse Ox 97 12/20/22 09:55 FiO2 Intake & Output 12/19/22 12/20/22 12/20/22 18:59 06:59 18:59 Intake Total 800 500 Output Total 450 10 Balance 350 490 Weight 38.555 kg Intake: IV 500 Oral 800 Output: Urine 450 Estimated Blood Loss 10 Other: Voiding Method External Catheter External Catheter External Catheter # Voids 3 # Bowel Movements 1 - Labs CBC & Chem 7: 12/20/22 00:10 12/20/22 10:59 Labs: Abnormal Lab Results - Last 24 Hours (Table) 12/19/22 12/20/22 12/20/22 Range/Units 14:17 00:10 06:02 RBC 3.59 L (3.80-5.40) m/uL Hgb 10.6 L (11.4-16.0) gm/dL Hct 33.9 L (34.0-46.0) % RDW 16.4 H (11.5-15.5) % Potassium 6.1 H* (3.5-5.5) mmol/L Creatinine 0.39 L (0.52-1.04) mg/dL BUN/Creatinine Ratio 21.17 H (12.00-20.00) Ratio Calcium 8.0 L (8.4-10.2) mg/dL 12/20/22 Range/Units 10:59 RBC (3.80-5.40) m/uL Hgb (11.4-16.0) gm/dL Hct (34.0-46.0) % RDW (11.5-15.5) % Potassium 5.3 H (3.5-5.5) mmol/L Creatinine (0.52-1.04) mg/dL BUN/Creatinine Ratio (12.00-20.00) Ratio Calcium (8.4-10.2) mg/dL Microbiology - Last 24 Hours (Table) 12/18/22 13:14 Blood Culture - Preliminary Blood
[2022-12-20] MEDS: HYDROcodone/APAP 5-325MG 1 EACH TAB PO PRN ×3 (14:12→22:29)
[2022-12-20] MEDS: ATORVASTATIN 40 MG TAB PO SCH (20:27)
[2022-12-20] MEDS: APIXABAN 2.5 MG TABLET PO SCH (20:28)
[2022-12-20] MEDS: ALPRAZolam 0.25 MG TAB PO SCH (20:28)
[2022-12-21] MEDS: HYDROcodone/APAP 5-325MG 1 EACH TAB PO PRN ×5 (01:34→20:40)
[2022-12-21] MEDS: MORPHINE SULFATE 2 MG/ML SYRINGE IVP PRN ×3 (06:15→23:39)
[2022-12-21] MEDS: IPRATROPIUM 0.5 MG/2.5 ML NEBU INHALATION SCH ×4 (08:28→20:21)
[2022-12-21] MEDS: ESCITALOPRAM 20 MG TAB PO SCH (09:14)
[2022-12-21] MEDS: METOPROLOL TARTRATE 50 MG TAB PO SCH ×2 (09:14→20:40)
[2022-12-21] MEDS: APIXABAN 2.5 MG TABLET PO SCH ×2 (09:14→20:41)
[2022-12-21] MEDS: GABAPENTIN 100 MG CAP PO SCH ×2 (09:15→20:41)
[2022-12-21] MEDS: CLOPIDOGREL 75 MG TAB PO SCH (09:15)
[2022-12-21] MEDS: lisinopriL 5 MG TAB PO SCH (09:15)
--- NOTE | 2022-12-21 12:47 | P.PN ---
Subjective Progress Note Date: 12/21/22 pt s/e doing well. no complaints, pain improved from prior to surgery Objective - Vital Signs Vital signs: Vital Signs Temp 98.6 F 12/21/22 07:38 Pulse 64 12/21/22 08:55 Resp 17 12/21/22 08:55 BP 133/54 12/21/22 07:38 Pulse Ox 100 12/21/22 08:26 FiO2 Intake & Output 12/20/22 12/21/22 12/21/22 18:59 06:59 18:59 Intake Total 500 Output Total 10 Balance 490 Intake: IV 500 Output: Estimated Blood Loss 10 Other: Voiding Method External Catheter External Catheter External Catheter # Voids 1 3 # Bowel Movements 1 - Exam dressing in place, c/d/i discoloration to right toes, likely mixed cyanotic changes and venous congestion - Labs CBC & Chem 7: 12/20/22 00:10 12/20/22 10:59 Labs: Abnormal Lab Results - Last 24 Hours (Table) 12/20/22 Range/Units 06:02 Potassium 6.1 H* (3.5-5.5) mmol/L BUN/Creatinine Ratio 21.17 H (12.00-20.00) Ratio Microbiology - Last 24 Hours (Table) 12/18/22 13:14 Blood Culture - Preliminary Blood Assessment and Plan Assessment: severe PAD L toes gangrene s/p TMA Plan: non weight bearing of LLE for now, may increase to heel touch only in next few days. Need post op shoe. Okay for DC from vascular standpoint when medically cleared, f/u in 2 weeks
[2022-12-21] MEDS: COLLAGENASE 250 UNIT/GM OINTMENT 30 GM TUBE TOPICAL SCH (17:27)
[2022-12-21] MEDS: ATORVASTATIN 40 MG TAB PO SCH (20:40)
[2022-12-21] MEDS: ALPRAZolam 0.25 MG TAB PO SCH (20:40)
[2022-12-22] MEDS: HYDROcodone/APAP 5-325MG 1 EACH TAB PO PRN ×4 (00:26→18:17)
--- NOTE | 2022-12-22 03:09 | P.PN ---
Subjective Progress Note Date: 12/20/22 Patient is a 77-year-old female with a known history of paroxysmal atrial fibrillation on anticoagulation with Eliquis, coronary artery history of CABG four-vessel, history of cardiac catheterization and stent placement, hypertension, hyperlipidemia, history of CVA/TIA, right breast cancer status postmastectomy, obstructive sleep apnea, multiple sclerosis, peripheral vascular disease and chronic left foot/toes gangrenous changes presents to ER with complaints of worsening pain of the left lower extremity. Patient has been having symptoms for the past few months. Patient has gangrenous changes of the left first second and third toes. Patient was seen by vascular surgery previously. Presently acute excluding pain. Denies any fever or chills. Denies any nausea vomiting abdominal pain or diarrhea. No cough or sputum production. EKG showed sinus rhythm with frequent ventricular premature complexes. Patient is on Plavix and apixaban at home. Patient stopped taking his medications for possible surgery. Seen by her primary care physician and was suggested to go to ER. Laboratory data showed WBC 9.8 hemoglobin 12.1 and platelets 341 Sodium 142 potassium 3.3 chloride 101 bicarb is 36 BUN 15 and creatinine 0.46 and lactic acid 3.0 and albumin 3.0 liver enzymes are not elevated. 12/19/2022 Patient is currently lying in the bed. Awake alert and oriented. No complaints of chest pain or shortness of breath. Left lower extremity pain is better. No complaints of fever or chills. No cough or sputum production. Patient was seen by vascular surgery and is planning for left foot ray amp utation. Eliquis is on hold. Cardiology recommends to continue Plavix with recent history of PCI. Lactic acid came down to 1.6. Sodium 139 potassium 4.4 chloride 105 bicarb is 29 BUN 12 and creatinine 0.39 and calcium 8.0. 12/20/2022 Patient is currently lying in the bed. Awake alert and oriented. No complaints of chest pain or shortness of breath. Patient is s/p left transmetatarsal amputation. Pain is fairly controlled. No complaints of fever or chills. No nausea vomiting abdominal pain or diarrhea. No cough or sputum production. Laboratory data showed WBC 10.1 hemoglobin 10.6 and platelets 273 Sodium 140 potassium 6.1, hemolyzed. Chloride 106 bicarb is 23.7 BUN 12.7 creatinine 0.6. Vascular surgery and cardiology is on board. Current medications reviewed. Objective - Vital Signs Vital signs: Vital Signs Temp 98.2 F 12/20/22 18:57 Pulse 69 12/20/22 18:57 Resp 20 12/20/22 18:57 BP 162/65 12/20/22 18:57 Pulse Ox 99 12/20/22 18:57 FiO2 Intake & Output 12/20/22 12/20/22 12/21/22 06:59 18:59 06:59 Intake Total 500 Output Total 10 Balance 490 Intake: IV 500 Output: Estimated Blood Loss 10 Other: Voiding Method External Catheter External Catheter External Catheter # Voids 3 1 # Bowel Movements 1 - Exam PHYSICAL EXAMINATION: Patient is lying in the bed comfortably, no acute distress, awake alert and oriented. HEENT: Normocephalic. Neck is supple. Pupils reactive. Nostrils clear. Oral cavity is moist. Neck reveals no JVD, carotid bruits, or thyromegaly. CHEST EXAMINATION: Trachea is central. Symmetrical expansion. Lung howard clear to auscultation and percussion. CARDIAC: Normal S1, S2 with no gallops. +murmur ABDOMEN: Soft. Bowel sounds present. Nontender. No organomegaly. No abdominal bruits. Extremities: reveal no edema. No clubbing or cyanosis Left first metatarsal amputation surgical site bandaged. Neurologically awake, alert, oriented x3 with well-coordinated movements. No focal deficits noted Skin: No rash or skin lesions. Psychiatric: Coperative. Nonsuicidal, Musculoskeletal: No joint swelling or deformity. Normal range of motion. - Labs CBC & Chem 7: 12/20/22 00:10 12/20/22 10:59 Labs: Abnormal Lab Results - Last 24 Hours (Table) 12/20/22 12/20/22 12/20/22 Range/Units 00:10 06:02 10:59 RBC 3.59 L (3.80-5.40) m/uL Hgb 10.6 L (11.4-16.0) gm/dL Hct 33.9 L (34.0-46.0) % RDW 16.4 H (11.5-15.5) % Potassium 6.1 H* 5.3 H (3.5-5.5) mmol/L BUN/Creatinine Ratio 21.17 H (12.00-20.00) Ratio Microbiology - Last 24 Hours (Table) 12/18/22 13:14 Blood Culture - Preliminary Blood Assessment and Plan Assessment: Left lower extremity severe pain with gangrenous changes to the first second and third toes.Status post transmetatarsal amputation on 12/20/2022. History of recent left SFA angioplasty of in-stent stenosis in October 2022 Peripheral vascular disease Paroxysmal atrial fibrillation on anticoagulation with Eliquis Coronary artery disease with history of CABG four-vessel. Recent history of stent placement to proximal left circumflex artery on 12/04/[address] Montoya. Chronic CHF with systolic dysfunction ejection fraction 35 to 40% Hypertension Hyperlipidemia History of mitral valve prolapse Bilateral peripheral neuropathy nondiabetic Obstructive sleep apnea not on CPAP History of right breast cancer status postmastectomy in November 2021 History of CVA x2 in July 2021 with gait unsteadiness and uses walker COPD on home oxygen at 2 to 4 L via nasal cannula. Anxiety/depression Currently everyday smoker DVT prophylaxis patient is already on full anticoagulation Plan: Patient will be continued on telemetry monitoring. Continue with pain management with morphine, Tylenol and gabapentin. Will be continued fluids. Vascular surgery and cardiology is on board. Patient is status post transmetatarsal amputation left.. Restart Eliquis once cleared by surgery. Continue with DuoNebs and Symbicort and oxygen supplementation. Follow-up closely. Prognosis guarded with multiple medical problems and comorbid conditions. Time with Patient: Greater than 30
--- NOTE | 2022-12-22 03:11 | P.PN ---
Subjective Progress Note Date: 12/21/22 Patient is a 77-year-old female with a known history of paroxysmal atrial fibrillation on anticoagulation with Eliquis, coronary artery history of CABG four-vessel, history of cardiac catheterization and stent placement, hypertension, hyperlipidemia, history of CVA/TIA, right breast cancer status postmastectomy, obstructive sleep apnea, multiple sclerosis, peripheral vascular disease and chronic left foot/toes gangrenous changes presents to ER with complaints of worsening pain of the left lower extremity. Patient has been having symptoms for the past few months. Patient has gangrenous changes of the left first second and third toes. Patient was seen by vascular surgery previously. Presently acute excluding pain. Denies any fever or chills. Denies any nausea vomiting abdominal pain or diarrhea. No cough or sputum production. EKG showed sinus rhythm with frequent ventricular premature complexes. Patient is on Plavix and apixaban at home. Patient stopped taking his medications for possible surgery. Seen by her primary care physician and was suggested to go to ER. Laboratory data showed WBC 9.8 hemoglobin 12.1 and platelets 341 Sodium 142 potassium 3.3 chloride 101 bicarb is 36 BUN 15 and creatinine 0.46 and lactic acid 3.0 and albumin 3.0 liver enzymes are not elevated. 12/19/2022 Patient is currently lying in the bed. Awake alert and oriented. No complaints of chest pain or shortness of breath. Left lower extremity pain is better. No complaints of fever or chills. No cough or sputum production. Patient was seen by vascular surgery and is planning for left foot ray amp utation. Eliquis is on hold. Cardiology recommends to continue Plavix with recent history of PCI. Lactic acid came down to 1.6. Sodium 139 potassium 4.4 chloride 105 bicarb is 29 BUN 12 and creatinine 0.39 and calcium 8.0. 12/20/2022 Patient is currently lying in the bed. Awake alert and oriented. No complaints of chest pain or shortness of breath. Patient is s/p left transmetatarsal amputation. Pain is fairly controlled. No complaints of fever or chills. No nausea vomiting abdominal pain or diarrhea. No cough or sputum production. Laboratory data showed WBC 10.1 hemoglobin 10.6 and platelets 273 Sodium 140 potassium 6.1, hemolyzed. Chloride 106 bicarb is 23.7 BUN 12.7 creatinine 0.6. Vascular surgery and cardiology is on board. 12/21/2022 Patient is currently lying in bed. Pain is controlled. Afebrile. No nausea vomiting abdominal pain or diarrhea. No cough or sputum production. Patient was started back on Eliquis last night. No nausea vomiting no headache or dizziness lightheadedness. Dressing change as per vascular surgery recommendations. No other acute overnight issues. Current medications reviewed. Objective - Vital Signs Vital signs: Vital Signs Temp 98.3 F 12/21/22 19:05 Pulse 63 12/21/22 19:05 Resp 18 12/21/22 19:05 BP 137/67 12/21/22 19:05 Pulse Ox 99 12/21/22 19:05 FiO2 Intake & Output 12/21/22 12/21/22 12/22/22 06:59 18:59 06:59 Other: Voiding Method External Catheter External Catheter External Catheter # Voids 3 2 - Exam PHYSICAL EXAMINATION: Patient is lying in the bed comfortably, no acute distress, awake alert and oriented. HEENT: Normocephalic. Neck is supple. Pupils reactive. Nostrils clear. Oral cavity is moist. Neck reveals no JVD, carotid bruits, or thyromegaly. CHEST EXAMINATION: Trachea is central. Symmetrical expansion. Lung howard clear to auscultation and percussion. CARDIAC: Normal S1, S2 with no gallops. +murmur ABDOMEN: Soft. Bowel sounds present. Nontender. No organomegaly. No abdominal bruits. Extremities: reveal no edema. No clubbing or cyanosis Left first metatarsal amputation surgical site bandaged. Neurologically awake, alert, oriented x3 with well-coordinated movements. No focal deficits noted Skin: No rash or skin lesions. Psychiatric: Coperative. Nonsuicidal, Musculoskeletal: No joint swelling or deformity. Normal range of motion. - Labs CBC & Chem 7: 12/20/22 00:10 12/20/22 10:59 Labs: Microbiology - Last 24 Hours (Table) 12/18/22 13:14 Blood Culture - Preliminary Blood Assessment and Plan Assessment: Left lower extremity severe pain with gangrenous changes to the first second and third toes.Status post transmetatarsal amputation on 12/20/2022. History of recent left SFA angioplasty of in-stent stenosis in October 2022 Peripheral vascular disease Paroxysmal atrial fibrillation on anticoagulation with Eliquis Coronary artery disease with history of CABG four-vessel. Recent history of stent placement to proximal left circumflex artery on 12/04/[address] Montoya. Chronic CHF with systolic dysfunction ejection fraction 35 to 40% Hypertension Hyperlipidemia History of mitral valve prolapse Bilateral peripheral neuropathy nondiabetic Obstructive sleep apnea not on CPAP History of right breast cancer status postmastectomy in November 2021 History of CVA x2 in July 2021 with gait unsteadiness and uses walker COPD on home oxygen at 2 to 4 L via nasal cannula. Anxiety/depression Currently everyday smoker DVT prophylaxis patient is already on full anticoagulation Plan: Patient will be continued on telemetry monitoring. Continue with pain management with morphine, Tylenol and gabapentin. Will be continued fluids. Vascular surgery and cardiology is on board. Patient is status post transmetatarsal amputation left.. Restarted Eliquis once cleared by surgery. Continue with DuoNebs and Symbicort and oxygen supplementation. Follow-up closely. Prognosis guarded with multiple medical problems and co morbid conditions. Anticipate discharge in the next 24 hours. Time with Patient: Greater than 30
[2022-12-22] MEDS: MORPHINE SULFATE 2 MG/ML SYRINGE IVP PRN ×3 (05:39→14:44)
[2022-12-22 06:55] LABS: African American GFR (CKD) >90 (>60 ml/min/1.73 sqM); Anion Gap 2 mmol/L; Blood Urea Nitrogen 19 mg/dL (7-17); Calcium 8.4 mg/dL (8.4-10.2); Carbon Dioxide 31 mmol/L (22-30); Chloride 106 mmol/L (98-107); Glucose 61 mg/dL (74-99); Non-African American GFR(CKD) >90 (>60 ml/min/1.73 sqM); Potassium 4.6 mmol/L (3.5-5.1); Sodium 139 mmol/L (137-145)
[2022-12-22] MEDS: IPRATROPIUM 0.5 MG/2.5 ML NEBU INHALATION SCH ×4 (08:37→21:53)
[2022-12-22] MEDS: CLOPIDOGREL 75 MG TAB PO SCH (09:21)
[2022-12-22] MEDS: lisinopriL 5 MG TAB PO SCH (09:21)
[2022-12-22] MEDS: APIXABAN 2.5 MG TABLET PO SCH ×2 (09:21→20:30)
[2022-12-22] MEDS: GABAPENTIN 100 MG CAP PO SCH ×2 (09:21→20:30)
[2022-12-22] MEDS: METOPROLOL TARTRATE 50 MG TAB PO SCH ×2 (09:21→20:30)
[2022-12-22] MEDS: COLLAGENASE 250 UNIT/GM OINTMENT 30 GM TUBE TOPICAL SCH (09:22)
[2022-12-22] MEDS: ESCITALOPRAM 20 MG TAB PO SCH (09:22)
[2022-12-22 10:02] LABS: Anisocytosis Slight; Basophils % (A) 0 %; Eosinophils # (A) 0.1 k/uL (0-0.7); Eosinophils % (A) 1 %; HCT 33.2 % (34.0-46.0); HGB 10.5 gm/dL (11.4-16.0); Hypochromasia Slight; Lymphocytes % (A) 16 %; MCH 29.9 pg (25.0-35.0); MCHC 31.7 g/dL (31.0-37.0); MCV 94.3 fL (80.0-100.0); Monocytes # (A) 0.6 k/uL (0-1.0); Monocytes % (A) 5 %; Neutrophils # (A) 9.5 k/uL (1.3-7.7); Neutrophils % (A) 77 %; Platelet Count 279 k/uL (150-450); RBC 3.52 m/uL (3.80-5.40); RDW 16.9 % (11.5-15.5); WBC 12.4 k/uL (3.8-10.6)
[2022-12-22] MEDS ORDERED: LACTATED RINGERS 1,000 ML IV SCH (20:02)
[2022-12-22] MEDS ORDERED: HYDROmorphone 0.5 MG/0.5 ML SYRINGE IVP PRN (20:02)
[2022-12-22] MEDS ORDERED: METOCLOPRAMIDE 5 MG/ML 2 ML VIAL IVP PRN (20:02)
[2022-12-22] MEDS ORDERED: LIDOCAINE 1% (10MG/ML) FOR IV START INTRADERMA PRN (20:02)
[2022-12-22] MEDS ORDERED: ONDANSETRON 4 MG/2 ML VIAL IVP ONE (20:02)
[2022-12-22] MEDS: ATORVASTATIN 40 MG TAB PO SCH (20:30)
[2022-12-22] MEDS: ALPRAZolam 0.25 MG TAB PO SCH (20:30)
--- NOTE | 2022-12-22 20:58 | P.PN ---
Subjective Patient is a 77-year-old female with a known history of paroxysmal atrial fibrillation on anticoagulation with Eliquis, coronary artery history of CABG four-vessel, history of cardiac catheterization and stent placement, hypertension, hyperlipidemia, history of CVA/TIA, right breast cancer status postmastectomy, obstructive sleep apnea, multiple sclerosis, peripheral vascular disease and chronic left foot/toes gangrenous changes presents to ER with complaints of worsening pain of the left lower extremity. Patient has been having symptoms for the past few months. Patient has gangrenous changes of the left first second and third toes. Patient was seen by vascular surgery previously. Presently acute excluding pain. Denies any fever or chills. Denies any nausea vomiting abdominal pain or diarrhea. No cough or sputum production. EKG showed sinus rhythm with frequent ventricular premature complexes. Patient is on Plavix and apixaban at home. Patient stopped taking his medications for possible surgery. Seen by her primary care physician and was suggested to go to ER. Laboratory data showed WBC 9.8 hemoglobin 12.1 and platelets 341 Sodium 142 potassium 3.3 chloride 101 bicarb is 36 BUN 15 and creatinine 0.46 and lactic acid 3.0 and albumin 3.0 liver enzymes are not elevated. 12/19/2022 Patient is currently lying in the bed. Awake alert and oriented. No complaints of chest pain or shortness of breath. Left lower extremity pain is better. No complaints of fever or chills. No cough or sputum production. Patient was seen by vascular surgery and is planning for left foot ray amputation. Eliquis is on hold. Cardiology recommends to continue Plavix with recent history of PCI. Lactic acid came down to 1.6. Sodium 139 potassium 4.4 chloride 105 bicarb is 29 BUN 12 and creatinine 0.39 and calcium 8.0. 12/20/2022 Patient is currently lying in the bed. Awake alert and oriented. No complaints of chest pain or shortness of breath. Patient is s/p left transmetatarsal amputation. Pain is fairly controlled. No complaints of fever or chills. No nausea vomiting abdominal pain or diarrhea. No cough or sputum production. Laboratory data showed WBC 10.1 hemoglobin 10.6 and platelets 273 Sodium 140 potassium 6.1, hemolyzed. Chloride 106 bicarb is 23.7 BUN 12.7 creatinine 0.6. Vascular surgery and cardiology is on board. 12/21/2022 Patient is currently lying in bed. Pain is controlled. Afebrile. No nausea vomiting abdominal pain or diarrhea. No cough or sputum production. Patient was started back on Eliquis last night. No nausea vomiting no headache or dizziness lightheadedness. Dressing change as per vascular surgery recommendations. No other acute overnight issues. 12/22/2022 Patient was sent by her PCP Dr. Reynolds for gangrenous foot, a relative by vascular surgery and went left tarsometatarsal amputation. Postoperatively she is doing well however she still complaining from pain at the left heel area, dressing and a Place. Patient reports difficulty walking and required physical therapy evaluation patient does not feel she is ready to go home today. Also patient developed by training and development coordinator Labs reviewed, hemoglobin 10.5, potassium 4.6 and WBC 12.4. Patient was treated for discharge by vascular surgery and training and development coordinator pending PT evaluation Eliquis is resumed, patient Rach me she has Eliquis at home and she does not need a prescription Objective - Vital Signs Vital signs: Vital Signs Temp 98.1 F 12/22/22 07:21 Pulse 72 12/22/22 08:45 Resp 16 12/22/22 07:21 BP 133/58 12/22/22 07:21 Pulse Ox 97 12/22/22 07:21 FiO2 Intake & Output 12/21/22 12/22/22 12/22/22 18:59 06:59 18:59 Intake Total 480 Output Total 660 Balance -180 Intake: Intake, IV Titration 0 Amount Lactated Ringers 1,000 ml 0 @ 0 mls/hr IV .[employer] Rx#:[id number] Oral 480 Output: Urine 660 Other: Voiding Method External Catheter External Catheter # Voids 2 1 # Bowel Movements 2 - Exam GENERAL: The patient is alert and oriented x3, not in any acute distress. Well developed, well nourished. HEENT: Pupils are round and equally reacting to light. EOMI. No scleral icterus. No conjunctival pallor. Normocephalic, atraumatic. No pharyngeal erythema. No thyromegaly. CARDIOVASCULAR: S1 and S2 present. No murmurs, rubs, or gallops. PULMONARY: Chest is clear to auscultation, no wheezing . no crackles. ABDOMEN: Soft, nontender, nondistended, normoactive bowel sounds. No palpable organomegaly. MUSCULOSKELETAL: No joint swelling or deformity. -EXTREMITIES: No cyanosis, clubbing, or pedal edema. Status post left TMA, dressing is in place NEUROLOGICAL: Gross neurological examination did not reveal any focal deficits. SKIN: No rashes. no petechiae. - Labs CBC & Chem 7: 12/22/22 09:09 12/22/22 06:19 Labs: Abnormal Lab Results - Last 24 Hours (Table) 12/22/22 Range/Units 06:19 Carbon Dioxide 31 H (22-30) mmol/L BUN 19 H (7-17) mg/dL Glucose 61 L (74-99) mg/dL Microbiology - Last 24 Hours (Table) 12/18/22 13:14 Blood Culture - Preliminary Blood Assessment and Plan Assessment: Left lower extremity severe pain with gangrenous changes to the first second and third toes.Status post transmetatarsal amputation on 12/20/2022. History of recent left SFA angioplasty of in-stent stenosis in October 2022 Peripheral vascular disease Paroxysmal atrial fibrillation on anticoagulation with Eliquis Coronary artery disease with history of CABG four-vessel. Recent history of stent placement to proximal left circumflex artery on 12/04/[address] Montoya. Chronic CHF with systolic dysfunction ejection fraction 35 to 40% Hypertension Hyperlipidemia History of mitral valve prolapse Bilateral peripheral neuropathy nondiabetic Obstructive sleep apnea not on CPAP History of right breast cancer status postmastectomy in November 2021 History of CVA x2 in July 2021 with gait unsteadiness and uses walker COPD on home oxygen at 2 to 4 L via nasal cannula. Anxiety/depression Currently everyday smoker Plan: Patient appeared by vascular surgery and training and development coordinator for discharge Pending PT evaluation and pain control Patient on [place] 5 Labs and medication were reviewed.. Continue same treatment. Continue with symptomatic treatment. Resume home medication. Monitor labs and vitals. DVT and GI prophylaxis. Further recommendations as per clinical course of the patient DVT prophylaxis:eliquis GI Prophylaxis: Pepcid PT/OT: Pending Prognosis is guarded
[2022-12-22] MEDS: FAMOTIDINE 20 MG/2 ML VIAL IV SCH (23:01)
[2022-12-23] MEDS: HYDROcodone/APAP 5-325MG 1 EACH TAB PO PRN ×3 (01:10→09:20)
[2022-12-23] MEDS: MORPHINE SULFATE 2 MG/ML SYRINGE IVP PRN ×2 (02:14→06:11)
[2022-12-23 07:50] VITALS: BP 136/93; RESP 16; TEMP 97.6
[2022-12-23] MEDS: IPRATROPIUM 0.5 MG/2.5 ML NEBU INHALATION SCH ×2 (07:51→11:00)
[2022-12-23] MEDS: APIXABAN 2.5 MG TABLET PO SCH (09:04)
[2022-12-23] MEDS: lisinopriL 5 MG TAB PO SCH (09:04)
[2022-12-23] MEDS: ESCITALOPRAM 20 MG TAB PO SCH (09:04)
[2022-12-23] MEDS: GABAPENTIN 100 MG CAP PO SCH (09:04)
[2022-12-23] MEDS: CLOPIDOGREL 75 MG TAB PO SCH (09:04)
[2022-12-23] MEDS: METOPROLOL TARTRATE 50 MG TAB PO SCH (09:04)
[2022-12-23] MEDS: FAMOTIDINE 20 MG/2 ML VIAL IV SCH (09:05)
[2022-12-23] MEDS: COLLAGENASE 250 UNIT/GM OINTMENT 30 GM TUBE TOPICAL SCH (09:06)
--- NOTE | 2022-12-23 10:47 | P.PN ---
Subjective Progress Note Date: 12/23/22 Patient seen and examined as a follow-up. Patient is postop day #3 for left transmetatarsal amputation. Dressing has not been changed yet. Patient states she does have surgical pain however ischemic pain of is resolved. She's been afebrile. Patient is declining subacute rehab. Physical therapy on consult, await their recommendations. Objective - Vital Signs Vital signs: Vital Signs Temp 97.6 F 12/23/22 07:10 Pulse 72 12/23/22 08:01 Resp 16 12/23/22 07:10 BP 136/93 12/23/22 07:10 Pulse Ox 96 12/23/22 07:53 FiO2 Intake & Output 12/22/22 12/23/22 12/23/22 18:59 06:59 18:59 Output Total 300 Balance -300 Output: Urine 300 Other: Voiding Method External Catheter External Catheter # Voids 1 - Exam General appearance: The patient is alert, oriented, appears in no acute distress. HET: Head is normocephalic and atraumatic. Pupils are equal and reactive. Neck: Supple. Extremities: Left TMA site well approximated with sutures, scant amount of serosanguineous drainage. Surrounding tissue pink warm. Right foot with is chemic changes noted to toes with purple discoloration. Sensorimotor intact. Good capillary refill. Neurological: Alert and oriented. Sensorimotor intact. - Labs CBC & Chem 7: 12/22/22 09:09 12/22/22 06:19 Labs: Microbiology - Last 24 Hours (Table) 12/18/22 13:14 Blood Culture - Preliminary Blood Assessment and Plan Assessment: 1. 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 Status post recent left SFA angioplasty of in stent stenosis 11/11/2022 3. Coronary artery disease status post recent stenting of the proximal left circumflex on 12/04/2022 4. Atrial fibrillation on Eliquis 2.5 mg BID 5. History of TIA 6. COPD Plan: 1. Daily dressing change with Vaseline gauze, 4 x 4, Kerlix 2. Recommend PT/OT evaluation and treatment 3. Offload weight on left foot until or Thursday of this week and then may apply heel touch 4. Postop shoe to left foot 5. Patient is clear from vascular surgery for discharge. Follow-up in [address] Tadeo Thank you for this consultation, we will sign off at this time. The impression and plan of care has been dictated as directed. I performed a history and examination of this patient, discussed the same with the dictator. I agree with the dictator's note ,documented as a scribe. Any additional findings or plans will be noted.
[2022-12-23 11:11] VITALS: PULSE 76
--- NOTE | 2022-12-24 00:49 | P.DS ---
Providers Date of admission: 12/18/22 14:43 Attending physician: Be Rouse Consults: 12/18/22 14:42 Consult Physician Urgent Consulting Provider: Tiesha Tadeo Consult Reason/Comments: Gangrene toes Do you want consulting provider notified?: Yes 12/19/22 07:58 Consult Physician Routine Consulting Provider: Luis Armijo Consult Reason/Comments: cardiac clearance, anesthesia recommendation for TMA Do you want consulting provider notified?: Yes Primary care physician: Sydnie Reynolds Hospital Course: Diagnoses: Left lower extremity severe pain with gangrenous changes to the first second and third toes.Status post transmetatarsal amputation on 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 History of recent left SFA angioplasty of in-stent stenosis in October 2022 Peripheral vascular disease Paroxysmal atrial fibrillation on anticoagulation with Eliquis Coronary artery disease with history of CABG four-vessel. Recent history of stent placement to proximal left circumflex artery on 12/04/[address] Montoya. Chronic CHF with systolic dysfunction ejection fraction 35 to 40% Hypertension Hyperlipidemia History of mitral valve prolapse Bilateral peripheral neuropathy nondiabetic Obstructive sleep apnea not on CPAP History of right breast cancer status postmastectomy in November 2021 History of CVA x2 in July 2021 with gait unsteadiness and uses walker COPD on home oxygen at 2 to 4 L via nasal cannula. Anxiety/depression Currently everyday smoker Hospital course: Patient is a 77-year-old female with a known history of paroxysmal atrial fibrillation on anticoagulation with Eliquis, coronary artery history of CABG four-vessel, history of cardiac catheterization and stent placement, hypertension, hyperlipidemia, history of CVA/TIA, right breast cancer status postmastectomy, obstructive sleep apnea, multiple sclerosis, peripheral vascular disease and chronic left foot/toes gangrenous changes presents to ER with complaints of worsening pain of the left lower extremity. Patient was sent by her PCP Dr. Reynolds for gangrenous left foot, patient evaluated by vascular surgery team and she underwent tarsometatarsal amputation on 12/20, she is doing well generally and she was cleared for discharge by vascular surgery team Today patient is at baseline, she still complaining from some pain in her left surgical site, but is improving compared to yesterday. She still taken [place] to control her pain, risks benefits are explained for her as well as call of treatment and she verbalized understanding and acceptance Patient denies any new symptoms and she is agreeable to go home today. Patient declines going to subacute rehab even if it's recommended for her, risk of falling explained for her especially she is a blood thinner and she verbalized understanding and acceptance to go home She declined rehab Patient was cleared for discharge by public interviewer and vascular surgery team Patient states that she's been taking Eliquis for 1.5 years at home, today she told me she needs a prescription for Eliquis was provided, risk of bleeding are explained for her and she is agreeable Problems and management plan were discussed with the patient and he verbalized understanding and acceptance Patient was found stable and can be discharged home in guarded prognosis however he needs follow-up as an outpatient. Patient was instructed to follow up with PCP Dr. Reynolds patient instructed to follow up with vascular surgeon Dr. Tadeo in 2 weeks and she is agreeable to call and make her own appointment within one week and patient agrees Patient discharged with home health care service and wound care nurse requested Physical exam Gen: patient is a AAOx3, no distress CVS: S1-S2, RRR, no murmur Lungs: B/L CTA, no wheezing Abdomen: soft, no distention, no tenderness, positive bowel sounds -Extremity: no leg edema or induration. Left foot wound is healing with a dressing in place Time spent more than 35 minutes Plan - Discharge Summary New Discharge Prescriptions: Continue Fluticasone/Umeclidin/Vilanter [Trelegy Ellipta 100-62.5-25] 1 puff INHALATION RT-DAILY PRN PRN Reason: Shortness Of Breath Gabapentin [Neurontin] 100 mg PO BID Acetaminophen Tab [Tylenol] 500 - 1,500 mg PO Q6H PRN PRN Reason: Pain Escitalopram [Lexapro] 20 mg PO DAILY Albuterol Nebulized [Ventolin Nebulized] 2.5 mg INHALATION RT-QID PRN PRN Reason: Shortness Of Breath lisinopriL [Zestril] 5 mg PO DAILY #30 tab Furosemide [Lasix] 40 mg PO BID@0900,1600 30 Days #60 tab Metoprolol Tartrate [Lopressor] 75 mg PO BID Collagenase [Santyl Ointment] 1 applic TOPICAL DAILY Atorvastatin [Lipitor] 40 mg PO HS Nitroglycerin Sl Tabs [Nitrostat] 0.4 mg SL Q5M PRN PRN Reason: Chest Pain Albuterol Sulfate [Ventolin HFA] 1 puff INHALATION RT-Q6H PRN PRN Reason: Shortness Of Breath Clopidogrel [Plavix] 75 mg PO DAILY #90 tablet Apixaban [Eliquis] 2.5 mg PO BID #60 tab Changed HYDROcodone/APAP 5-325MG [[place] 5-325] 1 tab PO Q6HR PRN 3 Days #12 tab PRN Reason: Severe Pain (Scale 7 To 10) Discontinued ALPRAZolam [Xanax] 0.25 mg PO HS Discharge Medication List Fluticasone/Umeclidin/Vilanter [Trelegy Ellipta 100-62.5-25] 1 puff INHALATION RT-DAILY PRN 11/01/21 [History] Nitroglycerin Sl Tabs [Nitrostat] 0.4 mg SL Q5M PRN 04/16/22 [History] Acetaminophen Tab [Tylenol] 500 - 1,500 mg PO Q6H PRN 09/16/22 [History] Albuterol Sulfate [Ventolin HFA] 1 puff INHALATION RT-Q6H PRN 09/16/22 [History] Gabapentin [Neurontin] 100 mg PO BID 09/16/22 [History] Escitalopram [Lexapro] 20 mg PO DAILY 10/27/22 [History] Albuterol Nebulized [Ventolin Nebulized] 2.5 mg INHALATION RT-QID PRN 11/07/22 [History] Furosemide [Lasix] 40 mg PO BID@0900,1600 30 Days #60 tab 11/12/22 [Rx] lisinopriL [Zestril] 5 mg PO DAILY #30 tab 11/12/22 [Rx] Clopidogrel [Plavix] 75 mg PO DAILY #90 tablet 12/05/22 [Rx] Atorvastatin [Lipitor] 40 mg PO HS 12/18/22 [History] Collagenase [Santyl Ointment] 1 applic TOPICAL DAILY 12/18/22 [History] Metoprolol Tartrate [Lopressor] 75 mg PO BID 12/18/22 [History] Apixaban [Eliquis] 2.5 mg PO BID #60 tab 12/23/22 [Rx] HYDROcodone/APAP 5-325MG [[place] 5-325] 1 tab PO Q6HR PRN 3 Days #12 tab 12/23/22 [Rx] Follow up Appointment(s)/Referral(s): Aakash Adame MD [STAFF PHYSICIAN] - 2 Weeks (office not answering Please call to schedule appointment ) Tiesha Tadeo DO [STAFF PHYSICIAN] - 01/07/23 9:30 am [facility], [NON-STAFF] - 1-2 Days Sydnie Reynolds MD [Primary Care Provider] - 12/25/22 4:20 pm Patient Instructions/Handouts: Gangrene (DC), Toe Amputation (DC) Activity/Diet/Wound Care/Special Instructions: non weight bearing of LLE for now, may increase to heel touch only in next few days by 12/25-12/26/22. Need post op shoe. Recommend physical therapy Dressing change daily with vaseline gauze, 4 x 4, and Kerlix. heart healthy diet activity is restricted till you see your doctor Discharge Disposition: HOME WITH HOME HEALTH SERVICES
== END 2022-12-23 12:35 | disposition home health service (06) ==
LOC: EC 12:22 → INTOOBSV 14:43 → 4SSUR 14:43
PROVIDERS: ADMIT Internal Medicine; ATTEND Internal Medicine
DX: I73.9 Peripheral vascular disease, unspecified (principal); I48.0 Paroxysmal atrial fibrillation; E87.5 Hyperkalemia; I11.0 Hypertensive heart disease with heart failure; I50.22 Chronic systolic (congestive) heart failure; I25.810 Atherosclerosis of coronary artery bypass graft(s) without angina pectoris; T82.856D Stenosis of peripheral vascular stent, subsequent encounter; I25.5 Ischemic cardiomyopathy; I27.20 Pulmonary hypertension, unspecified; I08.8 Other rheumatic multiple valve diseases; G62.9 Polyneuropathy, unspecified; G35 Multiple sclerosis; E78.5 Hyperlipidemia, unspecified; J44.9 Chronic obstructive pulmonary disease, unspecified; Z99.81 Dependence on supplemental oxygen; G47.33 Obstructive sleep apnea (adult) (pediatric); I69.998 Other sequelae following unspecified cerebrovascular disease; R26.89 Other abnormalities of gait and mobility; M19.90 Unspecified osteoarthritis, unspecified site; F17.210 Nicotine dependence, cigarettes, uncomplicated; F41.9 Anxiety disorder, unspecified; F32.A Depression, unspecified; Z79.02 Long term (current) use of antithrombotics/antiplatelets; Z79.01 Long term (current) use of anticoagulants; Z79.51 Long term (current) use of inhaled steroids; Z79.899 Other long term (current) drug therapy; Z88.8 Allergy status to other drugs, medicaments and biological substances; Z95.1 Presence of aortocoronary bypass graft; Z95.820 Peripheral vascular angioplasty status with implants and grafts; Z95.5 Presence of coronary angioplasty implant and graft; Z85.3 Personal history of malignant neoplasm of breast; Z90.11 Acquired absence of right breast and nipple; Z87.01 Personal history of pneumonia (recurrent); Z85.810 Personal history of malignant neoplasm of tongue; Z90.49 Acquired absence of other specified parts of digestive tract; Z98.890 Other specified postprocedural states; Z81.1 Family history of alcohol abuse and dependence; Z80.3 Family history of malignant neoplasm of breast; Z80.8 Family history of malignant neoplasm of other organs or systems
CPT/HCPCS: 28805; 96376 ×3; 96361 ×3; 96374; 96375; 99285; 36415; 94640 ×4; 94760 ×3; 93005; 97162; 97166; 64447; 64445; 80053; 80048 ×3; 83605; 83735; 84132; 85025 ×3; 85610; 87040; G0378 ×5; J2250; J1100; J2270 ×5; J2795; J1885; J2704; J1644

== ENCOUNTER 2023-01-14 12:50 | Day surgery (SDC) | payer MEDICARE ==
[~2023-01-14 12:50] MED LIST changes: -ALPRAZolam 0.5 MG TAB PO PRN; -ASPIRIN 325 MG TAB PO STA; -ATORVASTATIN 80 MG TAB PO STA; +DEXAMETHASONE SOD PHOSPHATE 4 MG/ML 1 ML VIAL IV ONE; -HEPARIN SODIUM,PORCINE 10,000 UNIT in SODIUM CHLORIDE 0.9% 1,000 ML IRRIGATION PRN; -HEPARIN SODIUM,PORCINE 2,500 UNIT in SODIUM CHLORIDE 0.9% 250 ML IRRIGATION PRN; +HYDROmorphone 0.5 MG/0.5 ML SYRINGE IVP PRN; +LACTATED RINGERS 1,000 ML IV SCH; -NITROGLYCERIN SL TABS 0.4 MG TAB SUBLINGUAL PRN; +ONDANSETRON 4 MG/2 ML VIAL IVP ONE
[2023-01-14] MEDS ORDERED: MIDAZOLAM 2 MG/2 ML VIAL IVP ONE (14:01)
[2023-01-14] MEDS ORDERED: PROPOFOL 10 MG/ML 20 ML VIAL IV ONE (14:40)
[2023-01-14] MEDS ORDERED: LIDOCAINE 2% INJ 20 MG/ML (2 ML VIAL) ONE (14:40)
[2023-01-14] MEDS ORDERED: LIDOCAINE 1% INJ 10MG/ML (20 ML MDV) SQ ONE ×2 (14:57)
--- NOTE | 2023-01-14 15:35 | P.OP ---
Date of Procedure: 01/14/23 Description of Procedure: DATE OF SERVICE: 01/14/2023 SURGEON: Tiesha Tadeo DO COMPONENT ASSEMBLER: None PREOPERATIVE DIAGNOSIS: [Gangrene right first and second toe, atherosclerosis]. POSTOPERATIVE DIAGNOSIS: [Same]. OPERATION: Right first and second toe amputation ANESTHESIA: Sedation with local ESTIMATED BLOOD LOSS: 5 mL SPECIMENS REMOVED: Right first and second toe for disposal COMPLICATIONS: None OPERATIVE FINDINGS: Patient is a 77-year-old female with severe peripheral vascular disease who has now developed gangrene of her right first and second toe. Discussed going forward with amputation and then further revascularization pending healing. She still understands with plan to proceed. DESCRIPTION OF PROCEDURE: The patient was brought to the operating room under local IV sedation and ring block was performed, and a circular incision was made at the base of the proximal phalanx of the first and second toe, deepened through the skin, fat, and tendons. Tendons were divided prior to plantar and dorsal aspect of the first and second toe. After that, proximal phalanx was dislocated from the metatarsal joint. The bone biters was used to transect the metatarsal. A Tha and rasp were utilized to smooth the edges of the bone. The sesamoid bone was excised. There is then copiously irrigated . Hemostasis was well controlled and incision was approximated with 3-0 nylon interrupted suture. Dressing applied. The patient tolerated the procedure well. Plan - Discharge Summary Discharge Rx Participant: No New Discharge Prescriptions: No Action Fluticasone/Umeclidin/Vilanter [Trelegy Ellipta 100-62.5-25] 1 puff INHALATION RT-DAILY PRN PRN Reason: Shortness Of Breath Gabapentin [Neurontin] 100 mg PO BID Acetaminophen Tab [Tylenol] 500 - 1,500 mg PO Q6H PRN PRN Reason: Pain Escitalopram [Lexapro] 20 mg PO QAM Albuterol Nebulized [Ventolin Nebulized] 2.5 mg INHALATION RT-QID PRN PRN Reason: Shortness Of Breath Furosemide [Lasix] 40 mg PO BID@0900,1600 30 Days #60 tab Metoprolol Tartrate [Lopressor] 75 mg PO BID Collagenase [Santyl Ointment] 1 applic TOPICAL DAILY Atorvastatin [Lipitor] 40 mg PO HS lisinopriL [Zestril] 5 mg PO QAM Nitroglycerin Sl Tabs [Nitrostat] 0.4 mg SL Q5M PRN PRN Reason: Chest Pain Albuterol Sulfate [Ventolin HFA] 1 puff INHALATION RT-Q6H PRN PRN Reason: Shortness Of Breath Apixaban [Eliquis] 2.5 mg PO BID #60 tab HYDROcodone/APAP 5-325MG [[place] 5-325] 1 tab PO Q6HR PRN 3 Days #12 tab PRN Reason: Severe Pain (Scale 7 To 10) Letrozole 2.5 mg PO QAM Clopidogrel [Plavix] 75 mg PO QAM Discharge Medication List Fluticasone/Umeclidin/Vilanter [Trelegy Ellipta 100-62.5-25] 1 puff INHALATION RT-DAILY PRN 11/01/21 [History] Nitroglycerin Sl Tabs [Nitrostat] 0.4 mg SL Q5M PRN 04/16/22 [History] Acetaminophen Tab [Tylenol] 500 - 1,500 mg PO Q6H PRN 09/16/22 [History] Albuterol Sulfate [Ventolin HFA] 1 puff INHALATION RT-Q6H PRN 09/16/22 [History] Gabapentin [Neurontin] 100 mg PO BID 09/16/22 [History] Escitalopram [Lexapro] 20 mg PO QAM 10/27/22 [History] Albuterol Nebulized [Ventolin Nebulized] 2.5 mg INHALATION RT-QID PRN 11/07/22 [History] Furosemide [Lasix] 40 mg PO BID@0900,1600 30 Days #60 tab 11/12/22 [Rx] Atorvastatin [Lipitor] 40 mg PO HS 12/18/22 [History] Collagenase [Santyl Ointment] 1 applic TOPICAL DAILY 12/18/22 [History] Metoprolol Tartrate [Lopressor] 75 mg PO BID 12/18/22 [History] Apixaban [Eliquis] 2.5 mg PO BID #60 tab 12/23/22 [Rx] HYDROcodone/APAP 5-325MG [[place] 5-325] 1 tab PO Q6HR PRN 3 Days #12 tab 12/23/22 [Rx] Clopidogrel [Plavix] 75 mg PO QAM 01/13/23 [History] Letrozole 2.5 mg PO QAM 01/13/23 [History] lisinopriL [Zestril] 5 mg PO QAM 01/13/23 [History]
[2023-01-14 15:36] VITALS: TEMP 98.4
[2023-01-14 16:11] VITALS: RESP 16
[2023-01-14 16:35] VITALS: PULSE 55
[2023-01-14 17:03] VITALS: BP 128/74
== END 2023-01-14 17:02 | disposition home or self-care (01) ==
LOC: OR 12:50
PROVIDERS: ATTEND Surgery
DX: I96 Gangrene, not elsewhere classified (principal); I25.10 Atherosclerotic heart disease of native coronary artery without angina pectoris; I11.0 Hypertensive heart disease with heart failure; I50.9 Heart failure, unspecified; E78.5 Hyperlipidemia, unspecified; J44.9 Chronic obstructive pulmonary disease, unspecified; I48.91 Unspecified atrial fibrillation; F17.210 Nicotine dependence, cigarettes, uncomplicated; G47.33 Obstructive sleep apnea (adult) (pediatric); G35 Multiple sclerosis; G40.909 Epilepsy, unspecified, not intractable, without status epilepticus; Z95.5 Presence of coronary angioplasty implant and graft; Z90.89 Acquired absence of other organs; Z79.02 Long term (current) use of antithrombotics/antiplatelets; Z79.899 Other long term (current) drug therapy; Z79.51 Long term (current) use of inhaled steroids
CPT/HCPCS: 28820 ×2; J2250; J1100; J2405; J0690; J2001 ×2; J2704

== ENCOUNTER 2023-02-19 08:39 | Day surgery (SDC) | payer MEDICARE ==
[2023-02-16 13:10] VITALS: BMI 17.7
[~2023-02-19 08:39] MED LIST changes: +ALPRAZolam 0.25 MG TAB PO PRN; +ALPRAZolam 0.5 MG TAB PO PRN; +ASPIRIN 325 MG TAB PO PRN; -DEXAMETHASONE SOD PHOSPHATE 4 MG/ML 1 ML VIAL IV ONE; +HEPARIN SODIUM,PORCINE 10,000 UNIT in SODIUM CHLORIDE 0.9% 1,000 ML IRRIGATION PRN; +HEPARIN SODIUM,PORCINE 2,500 UNIT in SODIUM CHLORIDE 0.9% 250 ML IRRIGATION PRN; -HYDROmorphone 0.5 MG/0.5 ML SYRINGE IVP PRN; -LACTATED RINGERS 1,000 ML IV SCH; -ONDANSETRON 4 MG/2 ML VIAL IVP ONE; +SODIUM CHLORIDE 0.9% 1,000 ML in EMPTY BAG 1 BAG IV ONE; +ZOLPIDEM 5 MG TAB PO PRN
[2023-02-19 09:29] VITALS: TEMP 99.9
[2023-02-19] MEDS ORDERED: LIDOCAINE 1% INJ 10MG/ML (20 ML MDV) ONE (09:35)
[2023-02-19 10:06] LABS: Anisocytosis Slight; Basophils % (A) 0 %; Eosinophils # (A) 0.2 k/uL (0-0.7); Eosinophils % (A) 2 %; HCT 38.9 % (34.0-46.0); HGB 12.3 gm/dL (11.4-16.0); Hypochromasia Slight; Lymphocytes # (A) 1.9 k/uL (1.0-4.8); Lymphocytes % (A) 21 %; MCH 29.2 pg (25.0-35.0); MCHC 31.5 g/dL (31.0-37.0); MCV 92.7 fL (80.0-100.0); Mean Platelet Volume 8.3; Monocytes # (A) 0.5 k/uL (0-1.0); Monocytes % (A) 6 %; Neutrophils # (A) 6.3 k/uL (1.3-7.7); Neutrophils % (A) 70 %; Platelet Count 307 k/uL (150-450); RDW 17.1 % (11.5-15.5); WBC 9.1 k/uL (3.8-10.6)
[2023-02-19] MEDS ORDERED: fentaNYL (PF) 50 MCG/ML 2 ML AMP IVP ONE ×4 (10:13→11:40)
[2023-02-19] MEDS ORDERED: MIDAZOLAM 2 MG/2 ML VIAL IVP ONE ×2 (10:17→11:40)
[2023-02-19 10:30] LABS: African American GFR (CKD) >90 (>60 ml/min/1.73 sqM); Anion Gap 6 mmol/L; Blood Urea Nitrogen 14 mg/dL (7-17); Carbon Dioxide 32 mmol/L (22-30); Chloride 100 mmol/L (98-107); Glucose 97 mg/dL (74-99); Non-African American GFR(CKD) >90 (>60 ml/min/1.73 sqM); Potassium 4.1 mmol/L (3.5-5.1); Sodium 138 mmol/L (137-145)
[2023-02-19] MEDS ORDERED: IOPAMIDOL-250 100ML BTL INTRAARTER ONE (11:48)
--- NOTE | 2023-02-19 12:27 | P.OP ---
Date of Procedure: 02/19/23 Description of Procedure: Preoperative diagnosis: Catrina 5 peripheral arterial disease, superficial femoral artery occlusion, infrapopliteal disease Postoperative diagnosis: Same Procedure: #1 ultrasound guided left common femoral artery access #2 selective right lower extremity angiogram third order to the popliteal artery #3 percutaneous transluminal balloon angioplasty 4 x 200, 5 x 200 right superficial femoral artery #4 Percutaneous transluminal is over stent placement 6 x 140(2), 6 x 100 #5 moderate conscious sedation 91 minutes with personal monitoring of certified RN administration and personal hemodynamic monitoring Surgeon: Tiesha Tadeo D.O. EBL: Less than 5 mL IV fluids: See records Urine output: Not measured Drains: None Complications: None immediately apparent Condition: Stable Operative indication and findings: Patient is a 77-year-old female with severe peripheral arterial disease and previous need for toe amputations due to gangrene, she has continued nonhealing and is here today for angiogram with intervention. Procedure in detail: Patient was taken to the special suite and placed in supine position. Bilateral groins are prepped and draped in usual sterile fashion. A procedural timeout performed, all parties were in agreement. Using the ultrasound, the left common femoral artery was identified. The skin overlying was anesthetized 1% lidocaine plain. Using the ultrasound, permanent images sort, the vessels found to be patent and free of significant calcific disease. There was a superficial femoral artery stent visualized as well as an external iliac artery stent. The artery was accessed under direct visualization and Seldinger technique was used to place a 6-[place] sheath without any resistance. The catheters and wires were then used to access the right iliac system. A right iliofemoral angiogram was performed which revealed a patent right iliac stent, patent right common and profunda femoralis vessels. The superficial femoral artery occluded shortly after it's takeoff with reconstitution at the proximal P1 popliteal artery via collaterals. At that point a decision was made to exchange for an Up & Over sheath, a 6 Damon was placed over a stiff wire. Catheters and wires were then used diligently to traverse the lesion. There was evidence of dissection, however we were able to traverse appropriately and confirm luminal gain at the proximal popliteal artery. Due to the occlusion, it was decided to balloon angioplasty with a 4 x 200 balloon. This was done for the length of the occlusion to the nubbin of the proximal superficial femoral artery. Repeat imaging showed no significant luminal gain therefore was decided a stent would be necessary to open the area flap from previous dissection. After appropriate measurements, a 6 x 1 40, 6 x 1 40 and a 6 x 100 Zilver drug- eluting stents were placed through the superficial femoral artery. Repeat imaging showed patent in-line flow. The 5 x 200 balloon was then utilized for post-stent dilation with 5x200 balloon. THere was significant improvement on repeat image. With brisk contrast flow through the vessel. Upon evaluation of the infrapopliteal segments the tibial peroneal trunk appeared patent, the anterior tibial artery appeared patent with brisk filling flow. The peroneal arteries difficult to visualize due to contrast flow. At this point procedure was concluded. Catheters and wires were removed. The sheath was exchanged for a short 6-[place]. The patient was taken to recovery for the sheath pulling. The patient tolerated the procedure well. Plan - Discharge Summary Discharge Rx Participant: No New Discharge Prescriptions: No Action Fluticasone/Umeclidin/Vilanter [Trelegy Ellipta 100-62.5-25] 1 puff INHALATION RT-DAILY PRN PRN Reason: Shortness Of Breath Gabapentin [Neurontin] 300 mg PO TID Acetaminophen Tab [Tylenol] 500 - 1,500 mg PO Q6H PRN PRN Reason: Pain Escitalopram [Lexapro] 20 mg PO QAM Albuterol Nebulized [Ventolin Nebulized] 2.5 mg INHALATION RT-QID PRN PRN Reason: Shortness Of Breath Metoprolol Tartrate [Lopressor] 75 mg PO BID Atorvastatin [Lipitor] 40 mg PO HS lisinopriL [Zestril] 5 mg PO QAM HYDROcodone/APAP 5-325MG [[place] 5-325] 1 tab PO Q6HR PRN PRN Reason: Pain Nitroglycerin Sl Tabs [Nitrostat] 0.4 mg SL Q5M PRN PRN Reason: Chest Pain Albuterol Sulfate [Ventolin HFA] 1 puff INHALATION RT-Q6H PRN PRN Reason: Shortness Of Breath Apixaban [Eliquis] 2.5 mg PO BID #60 tab Letrozole 2.5 mg PO QAM Clopidogrel [Plavix] 75 mg PO QAM Furosemide [Lasix] 20 mg PO BID Discharge Medication List Fluticasone/Umeclidin/Vilanter [Trelegy Ellipta 100-62.5-25] 1 puff INHALATION RT-DAILY PRN 11/01/21 [History] Nitroglycerin Sl Tabs [Nitrostat] 0.4 mg SL Q5M PRN 04/16/22 [History] Acetaminophen Tab [Tylenol] 500 - 1,500 mg PO Q6H PRN 09/16/22 [History] Albuterol Sulfate [Ventolin HFA] 1 puff INHALATION RT-Q6H PRN 09/16/22 [History] Gabapentin [Neurontin] 300 mg PO TID 09/16/22 [History] Escitalopram [Lexapro] 20 mg PO QAM 10/27/22 [History] Albuterol Nebulized [Ventolin Nebulized] 2.5 mg INHALATION RT-QID PRN 11/07/22 [History] Atorvastatin [Lipitor] 40 mg PO HS 12/18/22 [History] Metoprolol Tartrate [Lopressor] 75 mg PO BID 12/18/22 [History] Apixaban [Eliquis] 2.5 mg PO BID #60 tab 12/23/22 [Rx] Clopidogrel [Plavix] 75 mg PO QAM 01/13/23 [History] Letrozole 2.5 mg PO QAM 01/13/23 [History] lisinopriL [Zestril] 5 mg PO QAM 01/13/23 [History] Furosemide [Lasix] 20 mg PO BID 02/16/23 [History] HYDROcodone/APAP 5-325MG [[place] 5-325] 1 tab PO Q6HR PRN 02/16/23 [History] Follow up Appointment(s)/Referral(s): Tiesha Tadeo DO [STAFF PHYSICIAN] - 1 Week Activity/Diet/Wound Care/Special Instructions: Continue home medications, resume oral anticoagulation and antiplatelet medication tomorrow. Resume home diet. Resume light activity. No heavy lifting. Discharge Disposition: HOME SELF-CARE
[2023-02-19] MEDS ORDERED: HYDROcodone/APAP 5-325MG 1 EACH TAB ONE (13:16)
[2023-02-19 20:43] VITALS: BP 133/60; PULSE 60; RESP 16
--- NOTE | 2023-02-20 13:41 | IR ---
EXAMINATION TYPE: IR stent intravas non coronary DATE OF EXAM: 02/19/2023 COMPARISON: NONE HISTORY: Right foot ulcer/pain, 30.4 minutes, 9.871 DAP. Fluoroscopy was provided to the referring clinician.
== END 2023-02-19 18:32 | disposition home or self-care (01) ==
LOC: CATHCVL 08:39
PROVIDERS: ATTEND Surgery
DX: I73.9 Peripheral vascular disease, unspecified (principal); Z79.01 Long term (current) use of anticoagulants; Z79.811 Long term (current) use of aromatase inhibitors; Z79.02 Long term (current) use of antithrombotics/antiplatelets
CPT/HCPCS: 37226; 80048; 85025; C1894 ×2; C1769 ×5; C1887; C1725; C1874 ×2; J2250; J3010; Q9966

== ENCOUNTER 2023-05-20 14:17 | Inpatient (IN) | payer MEDICARE ==
--- NOTE | 2023-05-20 15:23 | XR ---
EXAMINATION TYPE: XR chest 2V DATE OF EXAM: 05/20/2023 COMPARISON: 10/27/2022 HISTORY: Shortness of breath TECHNIQUE: Frontal and lateral views of the chest are obtained. FINDINGS: Scattered senescent parenchymal changes noted. Hyperinflation compatible with COPD. No evidence for infiltrate. No evidence for atelectasis. Cardiomegaly with pulmonary venous congestion without overt failure. Mediastinal structures are stable and grossly unremarkable. No evidence for hilar prominence. Degenerative changes dorsal spine. IMPRESSION: 1. Cardiomegaly with pulmonary venous congestion without overt failure.
[2023-05-20 15:42] LABS: INR 1.1 (<1.2); Partial Thromboplastin Time 23.7 sec (22.0-30.0); Prothrombin Time 11.9 sec (10.0-12.5)
[2023-05-20] MEDS ORDERED: SODIUM CHLORIDE 0.9% 1,000 ML IV STA (15:54)
[2023-05-20] MEDS ORDERED: METOPROLOL TARTRATE 5 MG/5 ML VIAL IVP STA (15:54)
[2023-05-20] MEDS ORDERED: DILTIAZEM DRIP BOLUS FROM BAG 1 MG SOLN IV ONE ×2 (15:54→17:42)
[2023-05-20 15:58] LABS: Anisocytosis Slight; Basophils % (A) 0 %; Eosinophils # (A) 0.1 k/uL (0-0.7); Eosinophils % (A) 1 %; HCT 36.7 % (34.0-46.0); HGB 10.8 gm/dL (11.4-16.0); Hypochromasia Marked; Lymphocytes # (A) 1.7 k/uL (1.0-4.8); Lymphocytes % (A) 20 %; MCHC 29.5 g/dL (31.0-37.0); MCV 84.5 fL (80.0-100.0); Mean Platelet Volume 8.7; Monocytes # (A) 0.3 k/uL (0-1.0); Monocytes % (A) 4 %; Neutrophils # (A) 6.5 k/uL (1.3-7.7); Neutrophils % (A) 74 %; Platelet Count 265 k/uL (150-450); RBC 4.34 m/uL (3.80-5.40); WBC 8.8 k/uL (3.8-10.6)
[2023-05-20] MEDS ORDERED: SODIUM CHLORIDE 0.9% 1,000 ML IV SCH (16:00)
[2023-05-20] MEDS: DILTIAZEM 125 MG in SODIUM CHLORIDE 0.9% 100 ML IV SCH (16:12)
--- NOTE | 2023-05-20 16:23 | ED ---
Chest Pain HPI - General Chief Complaint: Chest Pain Stated Complaint: Chest Pain,Sob Time Seen by Provider: 05/20/23 15:44 Source: patient, RN notes reviewed, old records reviewed Mode of arrival: wheelchair Limitations: no limitations - History of Present Illness Initial Comments: This is a 77-year-old female to the emergency department for evaluation. She presents today for evaluation of shortness of breath and chest pain. Weakness fatigue. Patient states she has a strong cardiac history and recent amputation of her toes. Patient was placed the Tadeo catheter to decrease her range of motion and she has been at home. Color of urine has changed, she does admit to some fatigue decreased oral intake and severe shortness of breath elevated heart rate. Patient states she has history of atrial fibrillation and has recent SURGERY MD Complaint: chest pain, other (Atrial fibrillation with RVR) -: days(s) Onset: during rest, during exertion Pain Location: substernal Pain Radiation: none Severity: moderate Severity scale (1-10): 6 Quality: tightness, heaviness Consistency: constant Worsens With: nothing Context: recent illness, recent surgery Anginal Symptoms: nausea, dyspnea, sense of impending doom Other Symptoms: palpitations Treatments Prior to Arrival: none - Related Data Home Medications Medication Instructions Recorded Confirmed Fluticasone/Umeclidin/Vilanter 1 puff INHALATION RT-DAILY PRN 11/01/21 05/20/23 [Trelegy Ellipta 100-62.5-25] Nitroglycerin Sl Tabs [Nitrostat] 0.4 mg SL Q5M PRN 04/16/22 05/20/23 Albuterol Sulfate [Ventolin HFA] 1 puff INHALATION RT-Q6H PRN 09/16/22 05/20/23 Gabapentin [Neurontin] 300 mg PO TID 09/16/22 05/20/23 Albuterol Nebulized [Ventolin 2.5 mg INHALATION RT-QID PRN 11/07/22 05/20/23 Nebulized] Clopidogrel [Plavix] 75 mg PO QAM 01/13/23 05/20/23 Letrozole 2.5 mg PO QAM 01/13/23 05/20/23 HYDROcodone/APAP 5-325MG [[place] 1 tab PO DAILY PRN 02/16/23 05/20/23 5-325] Furosemide [Lasix] 20 mg PO DAILY 05/20/23 05/20/23 Previous Rx's Medication Instructions Recorded Amiodarone [Cordarone] 200 mg PO DIRECTED 30 Days #90 05/25/23 tab Famotidine [Pepcid] 20 mg PO DAILY #30 tab 05/25/23 Metoprolol Succinate (ER) [Toprol 12.5 mg PO DAILY #15 tab 05/25/23 XL] Sertraline [Zoloft] 25 mg PO DAILY #30 tablet 05/25/23 Warfarin [Coumadin] 5 mg PO DAILY@1800 30 Days #15 tab 05/25/23 cefUROXime axetiL [Ceftin] 500 mg PO BID 10 Days #20 tab 05/25/23 Allergies Allergy/AdvReac Type Severity Reaction Status Date / Time sumatriptan [From Imitrex] AdvReac Chest Pain Verified 05/20/23 16:30 Review of Systems ROS Statement: Those systems with pertinent positive or pertinent negative responses have been documented in the HPI. ROS Other: All systems not noted in ROS Statement are negative. EKG Findings - EKG Comments: EKG Findings:: EKG is atrial flutter rate 155 QRS 84 QTc 3:30 Past Medical History Past Medical History: Atrial Fibrillation, Coronary Artery Disease (CAD), Cancer, Heart Failure, COPD, CVA/TIA, Hyperlipidemia, Hypertension, Mitral Valve Prolapse (MVP), Neurologic Disorder, Osteoarthritis (OA), Pneumonia, Skin Disorder, Sleep Apnea/CPAP/BIPAP, Vascular Disorder Additional Past Medical History / Comment(s): right breast cancer (mastectomy november 2021)., multiple Sclerosis ,PAD, states feet are red & purple in color, edema both feet., peripheral neuropathy., CVA x2 Jul/Aug 2021 gait unsteady- uses w/c., generalized weakness., hx anemia with iron infusions., hx hospitalization for collapsed lung and respiratory failure with intubation., states lump on her vocal cord/biopsy neg., oxygen at 2.5-4 L prn, sleep apnea (no machine) History of Any Multi-Drug Resistant Organisms: None Reported Past Surgical History: Appendectomy, Breast Surgery, Coronary Bypass/CABG, Heart Catheterization With Stent, Orthopedic Surgery, Tonsillectomy Additional Past Surgical History / Comment(s): 08/17/21 surgery at [facility] for benign mass upper back., 11/2020 CABG 4 vessel, PCI/stents in and lastly 12/04/22, bilateral iliac arthrectomy/stents ., left foot wound debridements, bronchoscopy/lavage, bilateral breast biopsies, D&C, lumpectomy right breast 08/2021. Right mastectomy (11/26/21), BX TONGUE LESION AND MICROLARYNGOSCOPY negative FOR CANCER, RIGHT FOOT TOE AMPUTATION Past Anesthesia/Blood Transfusion Reactions: No Reported Reaction, Motion Sickness Additional Past Anesthesia/Blood Transfusion Reaction / Comment(s): No hx blood transfusion. Date of Last Stent Placement:: 12/04/22 Past Psychological History: Anxiety, Depression Smoking Status: Current every day smoker Past Alcohol Use History: None Reported Past Drug Use History: None Reported - Past Family History Father Family Medical History: No Reported History Additional Family Medical History / Comment(s): alcoholism, . Mother Family Medical History: Cancer Additional Family Medical History / Comment(s): Breast and brain cancer. General Exam General appearance: alert, in no apparent distress, anxious Head exam: Present: atraumatic, normocephalic, normal inspection Eye exam: Present: normal appearance, PERRL, EOMI. Absent: scleral icterus, conjunctival injection, periorbital swelling ENT exam: Present: normal exam, mucous membranes dry Neck exam: Present: normal inspection. Absent: tenderness, meningismus, lymphadenopathy Respiratory exam: Present: normal lung sounds bilaterally. Absent: respiratory distress, wheezes, rales, rhonchi, stridor Cardiovascular Exam: Present: tachycardia, irregular rhythm, normal heart sounds. Absent: systolic murmur, diastolic murmur, rubs, gallop, clicks GI/Abdominal exam: Present: soft, normal bowel sounds. Absent: distended, tenderness, guarding, rebound, rigid Extremities exam: Present: normal inspection, full ROM, normal capillary refill. Absent: tenderness, pedal edema, joint swelling, calf tenderness Back exam: Present: normal inspection Neurological exam: Present: alert, oriented X3, CN II-XII intact Psychiatric exam: Present: normal affect, normal mood Skin exam: Present: warm, dry, intact, normal color. Absent: rash Course Vital Signs 05/20/23 05/20/23 05/20/23 14:20 14:22 15:22 Temperature 98.2 F Pulse Rate 66 140 H 156 H Pulse Rate [ Left Pulse Oximetery] Respiratory 18 18 Rate Blood Pressure 120/74 133/72 Blood Pressure [Left Arm] O2 Sat by Pulse 92 L 99 Oximetry 05/20/23 05/20/23 05/20/23 16:00 16:19 17:00 Temperature Pulse Rate 137 H 85 Pulse Rate [ 170 H Left Pulse Oximetery] Respiratory 19 19 Rate Blood Pressure 109/87 111/63 Blood Pressure [Left Arm] O2 Sat by Pulse 100 93 L Oximetry 05/20/23 05/20/23 05/20/23 18:00 19:15 20:00 Temperature 98.3 F 98.1 F Pulse Rate 98 100 Pulse Rate [ 111 H Left Pulse Oximetery] Respiratory 18 20 20 Rate Blood Pressure 111/63 115/73 Blood Pressure 107/72 [Left Arm] O2 Sat by Pulse 93 L 96 95 Oximetry 05/20/23 05/20/23 20:08 21:40 Temperature Pulse Rate 112 H 110 H Pulse Rate [ Left Pulse Oximetery] Respiratory 24 24 Rate Blood Pressure 123/82 128/86 Blood Pressure [Left Arm] O2 Sat by Pulse 95 96 Oximetry - Reevaluation(s) Reevaluation #1: 05/20/23 17:27 Medical records reviewed Reevaluation #2: 05/20/23 17:27 Patient's symptoms improving Reevaluation #3: 05/20/23 19:06 Patient informed results questions answered Reevaluation #4: 05/20/23 17:27 Was pt. sent in by a medical professional or institution (, PA, BAIT MAN, urgent care, hospital, or penitentiary...) When possible be specific @ -no Did you speak to anyone other than the patient for history (EMS, parent, family, police, friend...)? What history was obtained from this source @ -no Did you review nursing and triage notes (agree or disagree)? Why? @ -agree Are old charts reviewed (outside hosp., previous admission, EMS record, old EKG, old radiological studies, urgent care reports/EKG's, penitentiary records)? Report findings @ -yes Differential Diagnosis (chest pain, altered mental status, abdominal pain women, abdominal pain men, vaginal bleeding, weakness, fever, dyspnea, syncope, headache, dizziness, GI bleed, back pain, seizure, CVA, palpatations, mental health, musculoskeletal)? @ -prior EKG interpreted by me (3pts min.). @ -yes X-rays interpreted by me (1pt min.). @ -yes CT interpreted by me (1pt min.). @ -no U/S interpreted by me (1pt. min.). @ -no What testing was considered but not performed or refused? (CT, X-rays, U/S, labs)? Why? @ -none What meds were considered but not given or refused? Why? @ -none Did you discuss the management of the patient with other professionals (professionals i.e. , PA, BAIT MAN, lab, RT, psych nurse, social media marketing specialist, human resources clerk, teacher, ecological technical officer, residential case manager)? Give summary @ -no Was smoking cessation discussed for >3mins.? @ -no Was critical care preformed (if so, how long)? @ -no Were there social determinants of health that impacted care today? How? (Homelessness, low income, unemployed, alcoholism, drug addiction, transportation, low edu. Level, literacy, decrease access to med. care, fci, rehab)? @ -none Was there de-escalation of care discussed even if they declined (Discuss DNR or withdrawal of care, Hospice)? DNR status @ -no What co-morbidities impacted this encounter? (DM, HTN, Smoking, COPD, CAD, Cancer, CVA, ARF, Chemo, Hep., AIDS, mental health diagnosis, sleep apnea, morbid obesity)? @ -none Was patient admitted / discharged? Hospital course, mention meds given and route, prescriptions, significant lab abnormalities, going to OR and other pertinent info. @ - 77 female in A. fib with RVR patient presents for chest pain, found to be in A. fib with RVR, rate currently controlled. Patient does have urinary tract infection this patient will be admitted for IV antibiotics Admitted A. fib with RVR and UTI Undiagnosed new problem with uncertain prognosis? @ -no Drug Therapy requiring intensive monitoring for toxicity (Heparin, Nitro, Insulin, Cardizem)? @ -no Were any procedures done? @ -no Diagnosis/symptom? @ - Acute, or Chronic, or Acute on Chronic? @ -Acute Uncomplicated (without systemic symptoms) or Complicated (systemic symptoms)? @ -Complicated Side effects of treatment? @ -no Exacerbation, Progression, or Severe Exacerbation? @ -exacerbation Poses a threat to life or bodily function? How? (Chest pain, [place], [place], pneumonia, PE, COPD, DKA, ARF, appy, cholecystitis, CVA, Diverticulitis, Homicidal, Suicidal, threat to staff... and all critical care pts) @ -yes with arrhythmia Reevaluation #5: 05/20/23 17:27 Differential Chest Pain: Stable Angina, Unstable Angina, STEMI, NSTEMI Aortic Dissection, Pneumothorax, Musculoskeletal, Esophageal Spasm GERD, Cholecystitis, Pancreatitis, Zoster, this is not meant to be an all-inclusive list. - Consultations Consultation #1: Spoke with [facility] were agrees to admit this patient Procedures - [facility] Protocol (Time Out) Nurse: Kavin Douglas Chest Pain MDM - MDM 77 female in A. fib with RVR patient presents for chest pain, found to be in A. fib with RVR, rate currently controlled. Patient does have urinary tract infection this patient will be admitted for IV antibiotics Critical Care Time Critical Care Time: Yes Total Critical Care Time: 31 Disposition Clinical Impression: Atrial fibrillation with RVR, COPD exacerbation, Weakness, UTI (urinary tract infection), Postoperative pain Disposition: ADMITTED IP TO THIS HOSP Condition: Serious Is patient prescribed a controlled substance at d/c from ED?: No Time of Disposition: 19:00
[2023-05-20 16:27] LABS: ALT 15 U/L (4-34); AST 25 U/L (14-36); African American GFR (CKD) >90 (>60 ml/min/1.73 sqM); Alkaline Phosphatase 116 U/L (38-126); Anion Gap 7 mmol/L; Blood Urea Nitrogen 14 mg/dL (7-17); Calcium 8.9 mg/dL (8.4-10.2); Carbon Dioxide 30 mmol/L (22-30); Chloride 103 mmol/L (98-107); Glucose 117 mg/dL (74-99); Magnesium 1.9 mg/dL (1.6-2.3); Non-African American GFR(CKD) >90 (>60 ml/min/1.73 sqM); Potassium 4.2 mmol/L (3.5-5.1); Sodium 140 mmol/L (137-145); Total Bilirubin 0.7 mg/dL (0.2-1.3); Total Protein 6.5 g/dL (6.3-8.2)
[2023-05-20] MEDS ORDERED: NALOXONE 0.4 MG/ML 1 ML VIAL IV PRN (19:02)
[2023-05-20] MEDS ORDERED: ONDANSETRON 4 MG/2 ML VIAL IVP PRN (19:02)
[2023-05-20] MEDS ORDERED: MORPHINE SULFATE 4 MG/ML SYRINGE IV PRN (19:02)
[2023-05-20 19:08] LABS: Appearance,Urine Cloudy (Clear); Bilirubin,Urine Negative (Negative); Blood,Urine Moderate (Negative); Color,Urine Yellow; Glucose,Urine (UA) Negative (Negative); Ketones,Urine Negative (Negative); PH, Urine 5.5 (5.0-8.0); Protein,Urine 1+ (Negative); Specific Gravity,Urine >1.030 (1.001-1.035)
[2023-05-20 19:09] LABS: Leukocyte Esterase,Urine Large (Negative); Nitrite,Urine Positive (Negative)
[2023-05-20 19:24] LABS: Amorphous Sediment,Urine Rare /hpf; Bacteria,Urine Rare /hpf; Hyaline Casts,Urine 5 /lpf (0-2); Mucus,Urine Many /hpf; RBC,Urine 23 /hpf (0-5); Squamous Epithelial Cell,Urine 2 /hpf (0-4); WBC,Urine 166 /hpf (0-5)
[2023-05-20] MEDS: SODIUM CHLORIDE 0.9% 1,000 ML IV SCH (19:30)
[2023-05-20] MEDS ORDERED: NITROGLYCERIN SL TABS 0.4 MG TAB SUBLINGUAL PRN (20:07)
[2023-05-20] MEDS ORDERED: ALBUTEROL HFA INHALER INHALATION PRN (20:07)
[2023-05-20] MEDS ORDERED: ALBUTEROL NEBULIZED 2.5 MG/3 ML INHALATION PRN (20:07)
[2023-05-20] MEDS ORDERED: APIXABAN 2.5 MG TABLET PO SCH (21:00)
[2023-05-20] MEDS: GABAPENTIN 300 MG CAP PO SCH (21:51)
[2023-05-20] MEDS ORDERED: GABAPENTIN 100 MG CAP PO SCH (22:00)
[2023-05-21] MEDS: HYDROcodone/APAP 5-325MG 1 EACH TAB PO PRN (00:14)
[2023-05-21] MEDS ORDERED: HEPARIN SODIUM 1,000 UN/ML (10ML VL) IV PRN (02:30)
[2023-05-21] MEDS ORDERED: HEPARIN SODIUM 1,000 UN/ML (10ML VL) IV ONE (02:45)
[2023-05-21] MEDS: DILTIAZEM 125 MG in SODIUM CHLORIDE 0.9% 100 ML IV SCH (03:21)
[2023-05-21] MEDS: HEPARIN SOD,PORK IN 0.45% NACL 25,000 UNIT in 0.45% NACL 1 250ML.BAG IV SCH (03:22)
[2023-05-21] MEDS: IPRATROPIUM 0.5 MG/2.5 ML NEBU INHALATION SCH ×5 (08:34→21:08)
[2023-05-21] MEDS: SYMBICORT 80-4.5 MCG INHALER INHALATION SCH ×2 (08:38→21:05)
[2023-05-21] MEDS ORDERED: COLLAGENASE 250 UNIT/GM OINTMENT 30 GM TUBE TOPICAL SCH (09:00)
[2023-05-21] MEDS ORDERED: METOPROLOL TARTRATE 50 MG TAB PO SCH (09:00)
[2023-05-21 09:10] LABS: Anisocytosis Slight; Basophils % (A) 0 %; Eosinophils # (A) 0.1 k/uL (0-0.7); Eosinophils % (A) 1 %; HCT 36.1 % (34.0-46.0); HGB 10.8 gm/dL (11.4-16.0); Hypochromasia Marked; Lymphocytes # (A) 1.8 k/uL (1.0-4.8); Lymphocytes % (A) 20 %; MCH 25.4 pg (25.0-35.0); MCHC 29.9 g/dL (31.0-37.0); Mean Platelet Volume 8.7; Monocytes # (A) 0.4 k/uL (0-1.0); Monocytes % (A) 4 %; Neutrophils # (A) 6.6 k/uL (1.3-7.7); Neutrophils % (A) 74 %; Platelet Count 249 k/uL (150-450); RBC 4.25 m/uL (3.80-5.40); WBC 8.9 k/uL (3.8-10.6)
[2023-05-21 09:23] LABS: ALT 15 U/L (4-34); AST 40 U/L (14-36); African American GFR (CKD) >90 (>60 ml/min/1.73 sqM); Albumin 3.1 g/dL (3.5-5.0); Alkaline Phosphatase 123 U/L (38-126); Anion Gap 9 mmol/L; Blood Urea Nitrogen 14 mg/dL (7-17); Calcium 8.5 mg/dL (8.4-10.2); Carbon Dioxide 24 mmol/L (22-30); Chloride 106 mmol/L (98-107); Glucose 91 mg/dL (74-99); Magnesium 1.9 mg/dL (1.6-2.3); Non-African American GFR(CKD) >90 (>60 ml/min/1.73 sqM); Phosphorus 3.2 mg/dL (2.5-4.5); Sodium 139 mmol/L (137-145); Total Bilirubin 0.7 mg/dL (0.2-1.3); Total Protein 6.6 g/dL (6.3-8.2)
[2023-05-21 09:24] LABS: Potassium 4.6 mmol/L (3.5-5.1)
[2023-05-21] MEDS: LETROZOLE 2.5 MG TAB PO SCH (10:01)
[2023-05-21] MEDS: GABAPENTIN 300 MG CAP PO SCH ×3 (10:01→21:06)
[2023-05-21] MEDS: ESCITALOPRAM 20 MG TAB PO SCH (10:02)
[2023-05-21] MEDS: FUROSEMIDE 20 MG TAB PO SCH (10:03)
[2023-05-21] MEDS: CLOPIDOGREL 75 MG TAB PO SCH (10:03)
--- NOTE | 2023-05-21 11:57 | P.GSCN ---
History of Present Illness Consult date: 05/21/23 Reason for Consult: Known Requesting physician: Jose J Dasilva History of present illness: This a pleasant 77-year-old female with multiple comorbidities including atrial fibrillation, peripheral arterial disease, coronary artery disease, heart failure, COPD, CVA/TIA, hyperlipidemia, hypertension, mild mitral valve prolapse, breast cancer, peripheral neuropathy, and tobacco abuse. She had presented to the emergency department yesterday with complaints of shortness of breath and chest pain. She was admitted for atrial fibrillation with RVR, elevated troponins and a urinary tract infection. Patient has a chronic indwelling Tadeo catheter. Patient currently denies any shortness of breath or chest pain, and she has 3 L nasal cannula on. Denies of any changes to her right lower extremity wound. She is seen in the wound clinic with Dr. Sanchez weekly. She is scheduled next week with Dr. Tadeo for debridement of the right toe amputation site. Left TMA well-healed. She denies any fevers or chills. Vascular surgery was consulted as "known"to patient. Again patient is without any complaints of lower extremity pain, no changes in the wound. Review of Systems A 14 point review systems was completed all pertinent positives and negatives as stated in the HPI. Past Medical History Past Medical History: Atrial Fibrillation, Coronary Artery Disease (CAD), Cancer, Heart Failure, COPD, CVA/TIA, Hyperlipidemia, Hypertension, Mitral Valve Prolapse (MVP), Neurologic Disorder, Osteoarthritis (OA), Pneumonia, Skin Disorder, Sleep Apnea/CPAP/BIPAP, Vascular Disorder Additional Past Medical History / Comment(s): right breast cancer (mastectomy november 2021)., multiple Sclerosis ,PAD, states feet are red & purple in color, edema both feet., peripheral neuropathy., CVA x2 Jul/Aug 2021 gait unsteady- uses w/c., generalized weakness., hx anemia with iron infusions., hx hospita lization for collapsed lung and respiratory failure with intubation., states lump on her vocal cord/biopsy neg., oxygen at 2.5-4 L prn, sleep apnea (no machine) History of Any Multi-Drug Resistant Organisms: None Reported Past Surgical History: Appendectomy, Breast Surgery, Coronary Bypass/CABG, Heart Catheterization With Stent, Orthopedic Surgery, Tonsillectomy Additional Past Surgical History / Comment(s): 08/17/21 surgery at [facility] for benign mass upper back., 11/2020 CABG 4 vessel, PCI/stents in and lastly 12/04/22, bilateral iliac arthrectomy/stents ., left foot wound debridements, bronchoscopy/lavage, bilateral breast biopsies, D&C, lumpectomy right breast 08/2021. Right mastectomy (11/26/21), BX TONGUE LESION AND MICROLARYNGOSCOPY negative FOR CANCER, RIGHT FOOT TOE AMPUTATION Past Anesthesia/Blood Transfusion Reactions: No Reported Reaction, Motion Sickness Additional Past Anesthesia/Blood Transfusion Reaction / Comm: No hx blood transfusion. Date of Last Stent Placement:: 12/04/22 Past Psychological History: Anxiety, Depression Additional Psychological History / Comment(s): Pt's due to Covid beginning of July 2021. Pt resides with 2 grandsons and [id number]. Smoking Status: Current every day smoker Past Alcohol Use History: None Reported Additional Past Alcohol Use History / Comment(s): started smoking 1960 (up to 3 ppd), quit may 2020 and restarted in 2021 (1/2-1 ppd). Past Drug Use History: None Reported Additional Drug Use History / Comment(s): . - Past Family History Father Family Medical History: No Reported History Additional Family Medical History / Comment(s): alcoholism, . Mother Family Medical History: Cancer Additional Family Medical History / Comment(s): Breast and brain cancer. Medications and Allergies Home Medications Medication Instructions Recorded Confirmed Type Fluticasone/Umeclidin/Vilanter 1 puff INHALATION RT-DAILY PRN 11/01/21 05/20/23 History [Trelegy Ellipta 100-62.5-25] Nitroglycerin Sl Tabs [Nitrostat] 0.4 mg SL Q5M PRN 04/16/22 05/20/23 History Albuterol Sulfate [Ventolin HFA] 1 puff INHALATION RT-Q6H PRN 09/16/22 05/20/23 History Gabapentin [Neurontin] 300 mg PO TID 09/16/22 05/20/23 History Escitalopram [Lexapro] 20 mg PO QAM 10/27/22 05/20/23 History Albuterol Nebulized [Ventolin 2.5 mg INHALATION RT-QID PRN 11/07/22 05/20/23 History Nebulized] Apixaban [Eliquis] 2.5 mg PO BID #60 tab 12/23/22 05/20/23 Rx Clopidogrel [Plavix] 75 mg PO QAM 01/13/23 05/20/23 History Letrozole 2.5 mg PO QAM 01/13/23 05/20/23 History HYDROcodone/APAP 5-325MG [[place] 1 tab PO DAILY PRN 02/16/23 05/20/23 History 5-325] Furosemide [Lasix] 20 mg PO DAILY 05/20/23 05/20/23 History Metoprolol Tartrate [Lopressor] 50 mg PO DAILY 05/20/23 05/20/23 History Allergies Allergy/AdvReac Type Severity Reaction Status Date / Time sumatriptan [From Imitrex] AdvReac Chest Pain Verified 05/20/23 16:30 Surgical - Exam Vital Signs Temp Pulse Resp BP Pulse Ox 98.2 F 66 18 120/74 92 L 05/20/23 14:20 05/20/23 14:20 05/20/23 14:20 05/20/23 14:20 05/20/23 14:20 General appearance: The patient is alert, oriented, appears in no acute distress. HET: Head is normocephalic and atraumatic. Pupils are equal and reactive. Neck: Supple. Heart: Irregular. Lungs: Equal expansion, normal respiratory effort. Diminished lung sounds. Abdomen: Soft, nondistended. Extremities: Right lower extremity first and second toe amputation, site with minimal drainage, no foul odor. Good capillary refill, warm to the touch. Left previous TMA site well healed, warm to touch with good capillary refill. Neurological: No focal deficits. Results - Labs 05/21/23 08:09 05/21/23 08:09 Abnormal Lab Results - Last 24 Hours (Table) 05/20/23 05/20/23 05/20/23 Range/Units 14:59 14:59 15:38 Hgb 10.8 L (11.4-16.0) gm/dL MCHC 29.5 L (31.0-37.0) g/dL RDW 19.0 H (11.5-15.5) % Glucose 117 H (74-99) mg/dL Troponin I 0.055 H* (0.000-0.034) ng/mL Albumin 3.0 L (3.5-5.0) g/dL Urine Appearance (Clear) Urine RBC (0-5) /hpf Urine WBC (0-5) /hpf Amorphous Sediment (None) /hpf Urine Bacteria (None) /hpf Hyaline Casts (0-2) /lpf Urine Mucus (None) /hpf 05/20/23 05/20/23 05/21/23 Range/Units 18:01 21:13 00:51 Hgb (11.4-16.0) gm/dL MCHC (31.0-37.0) g/dL RDW (11.5-15.5) % Glucose (74-99) mg/dL Troponin I 0.575 H* 0.727 H* (0.000-0.034) ng/mL Albumin (3.5-5.0) g/dL Urine Appearance Cloudy H (Clear) Urine RBC 23 H (0-5) /hpf Urine WBC 166 H (0-5) /hpf Amorphous Sediment Rare H (None) /hpf Urine Bacteria Rare H (None) /hpf Hyaline Casts 5 H (0-2) /lpf Urine Mucus Many H (None) /hpf Diabetes panel 05/20/23 Range/Units 15:38 Sodium 140 (137-145) mmol/L Potassium 4.2 (3.5-5.1) mmol/L Chloride 103 (98-107) mmol/L Carbon Dioxide 30 (22-30) mmol/L BUN 14 (7-17) mg/dL Creatinine 0.56 (0.52-1.04) mg/dL Glucose 117 H (74-99) mg/dL Calcium 8.9 (8.4-10.2) mg/dL AST 25 (14-36) U/L ALT 15 (4-34) U/L Alkaline Phosphatase 116 (38-126) U/L Total Protein 6.5 (6.3-8.2) g/dL Albumin 3.0 L (3.5-5.0) g/dL Calcium panel 05/20/23 Range/Units 15:38 Calcium 8.9 (8.4-10.2) mg/dL Albumin 3.0 L (3.5-5.0) g/dL Pituitary panel 05/20/23 Range/Units 15:38 Sodium 140 (137-145) mmol/L Potassium 4.2 (3.5-5.1) mmol/L Chloride 103 (98-107) mmol/L Carbon Dioxide 30 (22-30) mmol/L BUN 14 (7-17) mg/dL Creatinine 0.56 (0.52-1.04) mg/dL Glucose 117 H (74-99) mg/dL Calcium 8.9 (8.4-10.2) mg/dL Adrenal panel 05/20/23 Range/Units 15:38 Sodium 140 (137-145) mmol/L Potassium 4.2 (3.5-5.1) mmol/L Chloride 103 (98-107) mmol/L Carbon Dioxide 30 (22-30) mmol/L BUN 14 (7-17) mg/dL Creatinine 0.56 (0.52-1.04) mg/dL Glucose 117 H (74-99) mg/dL Calcium 8.9 (8.4-10.2) mg/dL Total Bilirubin 0.7 (0.2-1.3) mg/dL AST 25 (14-36) U/L ALT 15 (4-34) U/L Alkaline Phosphatase 116 (38-126) U/L Total Protein 6.5 (6.3-8.2) g/dL Albumin 3.0 L (3.5-5.0) g/dL - Imaging Chest x-ray: report reviewed (Cardiomegaly with pulmonary venous congestion without overt failure) Assessment and Plan Assessment: 1. Chest pain 2. Shortness of breath 3. Atrial fibrillation with RVR 4. Urinary tract infection 5. Right toe amputation site wound, currently under wound care 6. Peripheral arterial disease 7. Chronic tobacco abuse 8. History COPD 9. Peripheral neuropathy Plan: There is no indication for any vascular surgical intervention. Continue local wound care with Santyl, saline gauze, dry gauze, Kerlix. Continue further workup/recommendations from cardiology. The rest of patient's care deferred to primary medical team. Patient is stable from a vascular surgical standpoint and may be discharged at the discretion of primary medical team. Patient to follow- up with Dr. Tadeo as previously scheduled. The impression and plan of care has been dictated as directed. Dr.Giliberto Batista performed a history and examination of this patient, discussed the same with the dictator. I agree with the dictator's note ,documented as a scribe. Any additional findings or plans will be noted.
--- NOTE | 2023-05-21 15:20 | P.CRDCN ---
History of Present Illness History of present illness: HISTORY OF PRESENT ILLNESS: This is a 77-year-old female with a past medical history significant for peripheral vascular disease, atrial fibrillation, breast cancer, coronary artery disease with previous CABG in 2020 and subsequent stenting, COPD, multiple sclerosis, ischemic cardiomyopathy, and CVA. Patient follows in the office with Dr. Adame. We have been asked to see the patient in consultation for chest pain and NSTEMI. She states she was on her way to wound clinic when she started having chest pain which would not improve with 2 nitros and then attempted to go to wound clinic however was redirected to the emergency department. Chest pain was somewhat more significant than the majority of her other types of chest pain. She has been noticing she has been feeling short of breath the last 2-3 weeks as well. In addition her right lower extremity wound is not healing well and is scheduled to see Dr. Tadeo with vascular surgery in the next few weeks. Her right lower extremity is cool to touch and does not have good feeling in it. She was placed on Cardizem drip however converted to normal sinus rhythm. Troponins 0.05, 0.5, 0.7. Currently denies any chest pain. She is unsure when she is in A. fib however usually does not have this prolonged episodes of chest pain. * Most recent echocardiogram obtained in October 2022 revealing ejection fraction 35-40%, mild pulmonary hypertension, moderate mitral regurgitation and mild tricuspid regurgitation [id number] pulmonic regurgitation and small pericardial effusion * Cardiac catheterization history: 12/04/[address] Montoya revealing extremely calcified right and left coronary system with severe triple vessel coronary artery disease. Intermediate to severe disease involving the SVG to LAD and a critical disease involving the LAD distal to the SVG anastomosis. Occluded BAUTISTA to OM/left circumflex. Patent SVG to RCA. Patient underwent successful stenting of the proximal left circumflex. REVIEW OF SYSTEMS: At the time of my exam: CONSTITUTIONAL: Denies fever or chills. HEENT: Denies blurred vision, vision changes, or eye pain. Denies hemoptysis CARDIOVASCULAR: + chest pain. Denies orthopnea. Denies PND. Denies palpitations RESPIRATORY: +shortness of breath. GASTROINTESTINAL: Denies abdominal pain. Denies nausea or vomiting. HEMATOLOGIC: Denies bleeding disorders. GENITOURINARY: Denies any blood in urine. SKIN: Denies pruitis. Denies rash. PHYSICAL EXAM: VITAL SIGNS: Reviewed. GENERAL: Well-developed in no acute distress, chronically ill appearing HEENT: Head is normocephalic. Pupils are equal, round. Sclerae anicteric. Mucous membranes of the mouth are moist. Neck supple. No JVD or thyromegaly LUNGS: Respirations even and unlabored. Lungs essentially clear to auscultation bilaterally. HEART: Regular rate and rhythm. S1 and S2 heard. ABDOMEN: Soft. Nondistended. Nontender. EXTREMITIES: Normal range of motion. No clubbing or cyanosis. Necrosis noted to left toes with nonhealing incision, cool extremities. NEUROLOGIC: Awake and alert. Oriented x 3. ASSESSMENT: Chest pain, NSTEMI, appears mostly related to Afib with RVR Left lower extremity PAD Recent left SFA angioplasty of in-stent stenosis, October 2022 Coronary artery disease with previous four-vessel CABG in 2020 and recent stenting of proximal left circumflex on 12/04/2022 Paroxysmal atrial fibrillation Ischemic cardiomyopathy, EF 35-40% COPD Multiple sclerosis History of breast cancer History of CVA PLAN: Patient with acute onset of chest pain however likely more related to A. fib with RVR and non-STEMI. Recent heart catheterization from November with multiple etiologies of ischemia however majority of symptoms appear related to A. fib with RVR. We therefore will attempt rhythm control with amiodarone. We will also decrease the metoprolol from 50-25 mg daily given some borderline bradycardia heart rates in the 50s while she is in sinus rhythm. May benefit from ablation long-term. Continue with heparin drip for 24 hours and if has more chest pain may consider heart catheterization. Check 2-D echo. Further recommendations to follow. Past Medical History Past Medical History: Atrial Fibrillation, Coronary Artery Disease (CAD), Cancer, Heart Failure, COPD, CVA/TIA, Hyperlipidemia, Hypertension, Mitral Valve Prolapse (MVP), Neurologic Disorder, Osteoarthritis (OA), Pneumonia, Skin Disorder, Sleep Apnea/CPAP/BIPAP, Vascular Disorder Additional Past Medical History / Comment(s): right breast cancer (mastectomy november 2021)., multiple Sclerosis ,PAD, states feet are red & purple in color, edema both feet., peripheral neuropathy., CVA x2 Jul/Aug 2021 gait unsteady- uses w/c., generalized weakness., hx anemia with iron infusions., hx hospitalization for collapsed lung and respiratory failure with intubation., states lump on her vocal cord/biopsy neg., oxygen at 2.5-4 L prn, sleep apnea (no machine) History of Any Multi-Drug Resistant Organisms: None Reported Past Surgical History: Appendectomy, Breast Surgery, Coronary Bypass/CABG, Heart Catheterization With Stent, Orthopedic Surgery, Tonsillectomy Additional Past Surgical History / Comment(s): 08/17/21 surgery at [place] for benign mass upper back., 11/2020 CABG 4 vessel, PCI/stents in and lastly 12/04/22, bilateral iliac arthrectomy/stents ., left foot wound debridements, bronchoscopy/lavage, bilateral breast biopsies, D&C, lumpectomy right breast 08/2021. Right mastectomy (11/26/21), BX TONGUE LESION AND MICROLARYNGOSCOPY negative FOR CANCER, RIGHT FOOT TOE AMPUTATION Past Anesthesia/Blood Transfusion Reactions: No Reported Reaction, Motion Sickness Additional Past Anesthesia/Blood Transfusion Reaction / Comment(s): No hx blood transfusion. Date of Last Stent Placement:: 12/04/22 Past Psychological History: Anxiety, Depression Additional Psychological History / Comment(s): Pt's due to Covid beginning of July 2021. Pt resides with 2 grandsons and [id number]. Smoking Status: Current every day smoker Past Alcohol Use History: None Reported Additional Past Alcohol Use History / Comment(s): started smoking 1960 (up to 3 ppd), quit may 2020 and restarted in 2021 (1/2-1 ppd). Past Drug Use History: None Reported Additional Drug Use History / Comment(s): . - Past Family History Father Family Medical History: No Reported History Additional Family Medical History / Comment(s): alcoholism, . Mother Family Medical History: Cancer Additional Family Medical History / Comment(s): Breast and brain cancer. Medications and Allergies Home Medications Medication Instructions Recorded Confirmed Type Fluticasone/Umeclidin/Vilanter 1 puff INHALATION RT-DAILY PRN 11/01/21 05/20/23 History [Trelegy Ellipta 100-62.5-25] Nitroglycerin Sl Tabs [Nitrostat] 0.4 mg SL Q5M PRN 04/16/22 05/20/23 History Albuterol Sulfate [Ventolin HFA] 1 puff INHALATION RT-Q6H PRN 09/16/22 05/20/23 History Gabapentin [Neurontin] 300 mg PO TID 09/16/22 05/20/23 History Escitalopram [Lexapro] 20 mg PO QAM 10/27/22 05/20/23 History Albuterol Nebulized [Ventolin 2.5 mg INHALATION RT-QID PRN 11/07/22 05/20/23 History Nebulized] Apixaban [Eliquis] 2.5 mg PO BID #60 tab 12/23/22 05/20/23 Rx Clopidogrel [Plavix] 75 mg PO QAM 01/13/23 05/20/23 History Letrozole 2.5 mg PO QAM 01/13/23 05/20/23 History HYDROcodone/APAP 5-325MG [[place] 1 tab PO DAILY PRN 02/16/23 05/20/23 History 5-325] Furosemide [Lasix] 20 mg PO DAILY 05/20/23 05/20/23 History Metoprolol Tartrate [Lopressor] 50 mg PO DAILY 05/20/23 05/20/23 History Allergies Allergy/AdvReac Type Severity Reaction Status Date / Time sumatriptan [From Imitrex] AdvReac Chest Pain Verified 05/20/23 16:30 Physical Exam Vitals: Vital Signs Temp Pulse Pulse Resp BP BP Pulse Ox 05/21/23 11:48 97.1 F L 50 L 16 100/50 96 05/21/23 11:27 72 05/21/23 11:17 70 05/21/23 08:47 70 05/21/23 08:34 68 05/21/23 08:00 97.8 F 64 18 120/70 94 L 05/21/23 04:00 97.4 F L 100 16 136/74 94 L 05/21/23 02:00 150 H 20 05/21/23 00:00 97.6 F 120 H 20 123/76 96 05/20/23 21:40 110 H 24 128/86 96 05/20/23 20:08 112 H 24 123/82 95 05/20/23 20:00 98.1 F 111 H 20 107/72 95 05/20/23 19:15 100 20 115/73 96 05/20/23 18:00 98.3 F 98 18 111/63 93 L 05/20/23 17:00 85 19 111/63 93 L 05/20/23 16:19 170 H 05/20/23 16:00 137 H 19 109/87 100 05/20/23 15:22 156 H Intake and Output 05/21/23 05/21/23 05/21/23 06:59 14:59 22:59 Intake Total 62.0 145.333 Output Total 175 200 Balance -113.0 -54.667 Intake: IV 10 Invasive Line 1 10 Intake, IV Titration 62.0 135.333 Amount Diltiazem 125 mg In 62.0 85.333 Sodium Chloride 0.9% 100 ml @ 5 MG/HR 5 mls/hr IV .Q24H [facility] Rx#:[id number] cefTRIAXone 2 gm In 50 Sodium Chloride 0.9% 50 ml @ 100 mls/hr IVPB ONCE STA Rx#:[id number] Output: Urine 175 200 Other: Voiding Method Indwelling Catheter Indwelling Catheter # Bowel Movements 1 Weight 37.875 kg Results 05/21/23 08:09 05/21/23 08:09 Cardiac Enzymes 05/20/23 05/20/23 05/20/23 Range/Units 14:59 15:38 21:13 AST 25 (14-36) U/L Troponin I 0.055 H* 0.575 H* (0.000-0.034) ng/mL 05/21/23 05/21/23 Range/Units 00:51 08:09 AST 40 H (14-36) U/L Troponin I 0.727 H* (0.000-0.034) ng/mL Coagulation 05/20/23 05/21/23 Range/Units 14:59 08:09 PT 11.9 (10.0-12.5) sec APTT 23.7 26.2 (22.0-30.0) sec CBC 05/20/23 05/21/23 Range/Units 14:59 08:09 WBC 8.8 8.9 (3.8-10.6) k/uL RBC 4.34 4.25 (3.80-5.40) m/uL Hgb 10.8 L 10.8 L (11.4-16.0) gm/dL Hct 36.7 36.1 (34.0-46.0) % Plt Count 265 249 (150-450) k/uL Comprehensive Metabolic Panel 05/20/23 05/21/23 Range/Units 15:38 08:09 Sodium 140 139 (137-145) mmol/L Potassium 4.2 4.6 (3.5-5.1) mmol/L Chloride 103 106 (98-107) mmol/L Carbon Dioxide 30 24 (22-30) mmol/L BUN 14 14 (7-17) mg/dL Creatinine 0.56 0.53 (0.52-1.04) mg/dL Glucose 117 H 91 (74-99) mg/dL Calcium 8.9 8.5 (8.4-10.2) mg/dL AST 25 40 H (14-36) U/L ALT 15 15 (4-34) U/L Alkaline Phosphatase 116 123 (38-126) U/L Total Protein 6.5 6.6 (6.3-8.2) g/dL Albumin 3.0 L 3.1 L (3.5-5.0) g/dL Current Medications Generic Name Dose Route Start Last Admin Trade Name Freq PRN Reason Stop Dose Admin Acetaminophen 650 mg 05/20/23 19:02 Acetaminophen Tab 325 Mg Tab PO Q6HR PRN Mild Pain or Fever > 100.5 Hydrocodone Bitart/Acetaminophen 1 each 05/20/23 20:07 05/21/23 00:14 Hydrocodone/Apap 5-325mg 1 Each Tab PO 1 each DAILY PRN Administration Pain Albuterol Sulfate 2.5 mg 05/20/23 20:07 Albuterol Nebulized 2.5 Mg/3 Ml INHALATION RT-QID PRN Shortness Of Breath Budesonide/Formoterol Fumarate 2 puff 05/21/23 08:00 05/21/23 08:38 Symbicort 80-4.5 Mcg Inhaler INHALATION 2 puff RT-BID MARY ANNE Administration Clopidogrel Bisulfate 75 mg 05/21/23 09:00 05/21/23 10:03 Clopidogrel 75 Mg Tab PO 75 mg QAM MARY ANNE Administration Escitalopram Oxalate 20 mg 05/21/23 09:00 05/21/23 10:02 Escitalopram 20 Mg Tab PO 20 mg QAM MARY ANNE Administration Furosemide 20 mg 05/21/23 09:00 05/21/23 10:03 Furosemide 20 Mg Tab PO 20 mg DAILY MARY ANNE Administration Gabapentin 300 mg 05/20/23 22:00 05/21/23 10:01 Gabapentin 300 Mg Cap PO 300 mg TID MARY ANNE Administration Heparin Sodium (Porcine) 0 unit 05/21/23 02:30 05/21/23 10:16 Heparin Sodium 1,000 Un/Ml (10ml Vl) IV 10,000 unit PER PROTOCOL PRN Administration Low PTT Protocol Diltiazem HCl 125 mg/ Sodium 125 mls @ 5 mls/hr 05/20/23 16:30 05/21/23 11:53 Chloride IV 0 mg/hr .Q24H MARY ANNE 0 mls/hr Infusion 5 MG/HR Sodium Chloride 1,000 mls @ 75 mls/hr 05/20/23 19:15 05/20/23 19:30 Saline 0.9% IV 75 mls/hr .[id number] MARY ANNE Administration Ceftriaxone Sodium 2 gm/ 50 mls @ 100 mls/hr 05/21/23 09:00 05/21/23 10:17 Sodium Chloride IVPB 100 mls/hr Q24HR MARY ANNE Administration Protocol Heparin Sodium/Sodium Chloride 250 mls @ 4.545 mls/hr 05/21/23 02:45 05/21/23 03:22 25,000 unit/ Sodium Chloride IV 12 units/kg/hr .Q24H MARY ANNE 4.545 mls/hr Administration Protocol 12 UNITS/KG/HR Ipratropium [place] 0.5 mg 05/21/23 08:00 05/21/23 11:16 Ipratropium 0.5 Mg/2.5 Ml Nebu INHALATION 0.5 mg RT-QID MARY ANNE Administration Letrozole 2.5 mg 05/21/23 09:00 05/21/23 10:01 Letrozole 2.5 Mg Tab PO 2.5 mg QAM MARY ANNE Administration Metoprolol Tartrate 50 mg 05/21/23 09:00 05/21/23 10:01 Metoprolol Tartrate 50 Mg Tab PO 50 mg DAILY MARY ANNE Administration Morphine Sulfate 4 mg 05/20/23 19:02 Morphine Sulfate 4 Mg/Ml Syringe IV Q4HR PRN Severe Pain (Scale 7 to 10) Naloxone HCl 0.2 mg 05/20/23 19:02 Naloxone 0.4 Mg/Ml 1 Ml Vial IV Q2M PRN Opioid Reversal Nitroglycerin 0.4 mg 10/25/23 20:07 Nitroglycerin Sl Tabs 0.4 Mg Tab SUBLINGUAL Q5M PRN Chest Pain Collagenase 250 Unit 1 each 05/21/23 14:30 /Gm Ointment 30 Gm TOPICAL Tube DAILY [facility] Protocol Ondansetron HCl 4 mg 05/20/23 19:02 Ondansetron 4 Mg/2 Ml Vial IVP Q8HR PRN Nausea And Vomiting Intake and Output 05/21/23 05/21/23 05/21/23 06:59 14:59 22:59 Intake Total 62.0 145.333 Output Total 175 200 Balance -113.0 -54.667 Intake: IV 10 Invasive Line 1 10 Intake, IV Titration 62.0 135.333 Amount Diltiazem 125 mg In 62.0 85.333 Sodium Chloride 0.9% 100 ml @ 5 MG/HR 5 mls/hr IV .Q24H [facility] Rx#:[id number] cefTRIAXone 2 gm In 50 Sodium Chloride 0.9% 50 ml @ 100 mls/hr IVPB ONCE STA Rx#:[id number] Output: Urine 175 200 Other: Voiding Method Indwelling Catheter Indwelling Catheter # Bowel Movements 1 Weight 37.875 kg Patient Weight 05/22/23 06:59 Weight 37.875 kg 05/21/23 08:09 05/21/23 08:09
[2023-05-21] MEDS: COLLAGENASE 250 UNIT/GM OINTMENT 30 GM TUBE TOPICAL SCH (15:30)
[2023-05-21] MEDS: AMIODARONE 200 MG TAB PO SCH ×2 (16:17→21:06)
[2023-05-21] MEDS: SODIUM CHLORIDE 0.9% 1,000 ML IV SCH ×2 (17:24→23:04)
--- NOTE | 2023-05-21 19:46 | HP ---
HISTORY AND PHYSICAL CHIEF COMPLAINT: Multiple chief complaints including shortness of breath, chest discomfort, and palpitation. HISTORY OF PRESENT ILLNESS: This is a 77-year-old woman with a past medical history of multiple medical problems including atrial fibrillation, CAD, COPD, and CHF, who was complaining of shortness of breath, chest discomfort, and multiple symptomatology. The patient came to [facility]. The patient was admitted and evaluated further. The chest x-ray on admission, which I reviewed, showed cardiomegaly with pulmonary venous congestion. The BNP is not available at this time. The troponin is elevated up to 0.727. There is no history of any fever, rigor, or chills. The patient also had evidence of some UTI. The patient also had recent bilateral foot surgery. PAST MEDICAL HISTORY: Reviewed includes CAD, COPD, and CHF. Rest of the history and rest of the chart are also reviewed. HOME MEDICATIONS: Reviewed include nitroglycerin. Doses and rest of the medications are reviewed. ALLERGIES: Imitrex. FAMILY HISTORY: History of alcoholism in the family. SOCIAL HISTORY: Continued ongoing smoking. REVIEW OF SYSTEMS: Fourteen-point review is negative except as mentioned earlier. PHYSICAL EXAMINATION: VITAL SIGNS: Pulse is 50, blood pressure 100/50, respirations 16. HEENT: Conjunctivae are normal. NECK: No jugular venous distention. CARDIOVASCULAR: S1 and S2. RESPIRATORY: Breath sounds diminished at the bases. Scattered rhonchi and crackles. Expiratory wheezing. ABDOMEN: Soft and nontender. LEGS: Bilateral surgery, amputations. SKIN: No ulcers or rashes. JOINTS: No active deforming arthropathy. LABORATORY DATA: Reviewed. IMAGING STUDIES: Chest x-ray reviewed. ASSESSMENT: 1. Chest pain, possible acute eci-WF-qeyopvx-elevation myocardial infarction. 2. Shortness of breath, possibly chronic obstructive pulmonary disease and congestive heart failure exacerbations combination. 3. Rule out acute urinary tract infection present on admission. 4. History of peripheral vascular disease and surgery. 5. History of coronary artery disease. 6. Atrial fibrillation with fast ventricular rate present on admission. 7. Multiple complex medical issues. RECOMMENDATIONS AND DISCUSSION: In this 77-year-old woman presented with multiple complex medical issues, we will monitor the patient closely, continue with current medications, and continue symptomatic treatment. The patient is on Cardizem drip. The patient received Cardizem drip at this time. At this time, the patient is also on IV heparin, and also, I would recommend to continue the current medication and bronchodilators. Cardiology and Pulmonology consultations and Infectious Disease evaluation for the UTI, empiric antibiotics. Prognosis is guarded because of multiple complex medical issues. Further recommendations to follow. Also, recommend PT, OT, and possible ECF rehab also because of multiple complex medical issues as listed above in this frail individual. MMODL / IJN: [id number] /
--- NOTE | 2023-05-21 22:18 | P.CONS ---
History of Present Illness - Reason for Consult Consult date: 05/21/23 UTI Requesting physician: Valeri Fritz - Chief Complaint Shortness of breath and weakness x few days - History of Present Illness Patient is a 77-year-old female with a past medical history significant for atrial fibrillation coronary disease heart failure with CVA TIA hypertension hyperlipidemia in this patient also with history of peripheral arterial disease and recently did have a right ist and second toe amputated patient presenting to the ER for evaluation of chest pain and increasing shortness of breath patient still has going on for a day or 2 before presentation to the hospital patient also complaining of feeling weak and fatigue patient did have a chronic indwelling Tadeo catheter for urine retention last changed about 2 weeks ago and was supposed to be change yesterday however the patient ended up coming to the hospital on presentation to the hospital the patient was afebrile and no fever have recorded subsequently patient was mildly hypoxic on supplemental oxygen patient did have normal white count creatinine was normal troponins were elevated liver exams are normal urine was positive patient did have a chest x-ray cardiomegaly with pulmonary vascular congestion with concern for catheter associated UTI patient started on Rocephin infectious disease was consulted for further management of antibiotic therapy, patient main symptom remains to be chest pain and shortness of breath pain is mostly central moderate intensity without radiation denies significant cough or sputum production no nausea no vomiting no abdominal pain or diarrhea patient did have a Tadeo catheter as mentioned earlier last changed 2 weeks ago denies having any leakage of urine around the catheter urine is cloudy though and did have some smell Review of Systems Positive point and negatives has been mentioned in the HPI, complete review of systems was performed and all other systems are negative Past Medical History Past Medical History: Atrial Fibrillation, Coronary Artery Disease (CAD), Cancer, Heart Failure, COPD, CVA/TIA, Hyperlipidemia, Hypertension, Mitral Valve Prolapse (MVP), Neurologic Disorder, Osteoarthritis (OA), Pneumonia, Skin Disorder, Sleep Apnea/CPAP/BIPAP, Vascular Disorder Additional Past Medical History / Comment(s): right breast cancer (mastectomy november 2021)., multiple Sclerosis ,PAD, states feet are red & purple in color, edema both feet., peripheral neuropathy., CVA x2 Jul/Aug 2021 gait unsteady- uses w/c., generalized weakness., hx anemia with iron infusions., hx hospitalization for collapsed lung and respiratory failure with intubation., states lump on her vocal cord/biopsy neg., oxygen at 2.5-4 L prn, sleep apnea (n o machine) History of Any Multi-Drug Resistant Organisms: None Reported Past Surgical History: Appendectomy, Breast Surgery, Coronary Bypass/CABG, Heart Catheterization With Stent, Orthopedic Surgery, Tonsillectomy Additional Past Surgical History / Comment(s): 08/17/21 surgery at [facility] for benign mass upper back., 11/2020 CABG 4 vessel, PCI/stents in and lastly 12/04/22, bilateral iliac arthrectomy/stents ., left foot wound debridements, bronchoscopy/lavage, bilateral breast biopsies, D&C, lumpectomy right breast 08/2021. Right mastectomy (11/26/21), BX TONGUE LESION AND MICROLARYNGOSCOPY negative FOR CANCER, RIGHT FOOT TOE AMPUTATION Past Anesthesia/Blood Transfusion Reactions: No Reported Reaction, Motion Sickness Additional Past Anesthesia/Blood Transfusion Reaction / Comm: No hx blood transfusion. Date of Last Stent Placement:: 12/04/22 Past Psychological History: Anxiety, Depression Additional Psychological History / Comment(s): Pt's due to Covid beginning of July 2021. Pt resides with 2 grandsons and [id number]. Smoking Status: Current every day smoker Past Alcohol Use History: None Reported Additional Past Alcohol Use History / Comment(s): started smoking 1960 (up to 3 ppd), quit may 2020 and restarted in 2021 (1/2-1 ppd). Past Drug Use History: None Reported Additional Drug Use History / Comment(s): . - Past Family History Father Family Medical History: No Reported History Additional Family Medical History / Comment(s): alcoholism, . Mother Family Medical History: Cancer Additional Family Medical History / Comment(s): Breast and brain cancer. Medications and Allergies Home Medications Medication Instructions Recorded Confirmed Type Fluticasone/Umeclidin/Vilanter 1 puff INHALATION RT-DAILY PRN 11/01/21 05/20/23 History [Trelegy Ellipta 100-62.5-25] Nitroglycerin Sl Tabs [Nitrostat] 0.4 mg SL Q5M PRN 04/16/22 05/20/23 History Albuterol Sulfate [Ventolin HFA] 1 puff INHALATION RT-Q6H PRN 09/16/22 05/20/23 History Gabapentin [Neurontin] 300 mg PO TID 09/16/22 05/20/23 History Albuterol Nebulized [Ventolin 2.5 mg INHALATION RT-QID PRN 11/07/22 05/20/23 History Nebulized] Clopidogrel [Plavix] 75 mg PO QAM 01/13/23 05/20/23 History Letrozole 2.5 mg PO QAM 01/13/23 05/20/23 History HYDROcodone/APAP 5-325MG [[place] 1 tab PO DAILY PRN 02/16/23 05/20/23 History 5-325] Furosemide [Lasix] 20 mg PO DAILY 05/20/23 05/20/23 History Amiodarone [Cordarone] 200 mg PO DIRECTED 30 Days #90 05/25/23 Rx tab Famotidine [Pepcid] 20 mg PO DAILY #30 tab 05/25/23 Rx Metoprolol Succinate (ER) [Toprol 12.5 mg PO DAILY #15 tab 05/25/23 Rx XL] Sertraline [Zoloft] 25 mg PO DAILY #30 tablet 05/25/23 Rx Warfarin [Coumadin] 5 mg PO DAILY@1800 30 Days #15 tab 05/25/23 Rx cefUROXime axetiL [Ceftin] 500 mg PO BID 10 Days #20 tab 05/25/23 Rx Allergies Allergy/AdvReac Type Severity Reaction Status Date / Time sumatriptan [From Imitrex] AdvReac Chest Pain Verified 05/20/23 16:30 Physical Exam Vitals: Vital Signs Temp Pulse Pulse Resp BP BP Pulse Ox 05/21/23 08:47 70 05/21/23 08:34 68 05/21/23 08:00 97.8 F 64 18 120/70 94 L 05/21/23 04:00 97.4 F L 100 16 136/74 94 L 05/21/23 02:00 150 H 20 05/21/23 00:00 97.6 F 120 H 20 123/76 96 05/20/23 21:40 110 H 24 128/86 96 05/20/23 20:08 112 H 24 123/82 95 05/20/23 20:00 98.1 F 111 H 20 107/72 95 05/20/23 19:15 100 20 115/73 96 05/20/23 18:00 98.3 F 98 18 111/63 93 L 05/20/23 17:00 85 19 111/63 93 L 05/20/23 16:19 170 H 05/20/23 16:00 137 H 19 109/87 100 05/20/23 15:22 156 H 05/20/23 14:22 140 H 18 133/72 99 05/20/23 14:20 98.2 F 66 18 120/74 92 L Intake and Output 05/20/23 05/21/23 05/21/23 22:59 06:59 14:59 Intake Total 62.0 10 Output Total 175 Balance -113.0 10 Intake: IV 10 Invasive Line 1 10 Intake, IV Titration 62.0 Amount Diltiazem 125 mg In 62.0 Sodium Chloride 0.9% 100 ml @ 5 MG/HR 5 mls/hr IV .Q24H [facility] Rx#:[id number] Output: Urine 175 Other: Voiding Method Indwelling Catheter Indwelling Catheter # Bowel Movements 1 Weight 37.875 kg GENERAL DESCRIPTION: Elderly female lying in bed, no distress. No tachypnea or accessory muscle of respiration use. HEENT: Shows Pallor , no scleral icterus. Oral mucous membrane is dry. No pharyngeal erythema or thrush NECK: Trachea central, no thyromegaly. LUNGS: Unlabored breathing. Coarse breath sounds bilaterally HEART: S1, S2, regular rate and rhythm. No loud murmur ABDOMEN: Soft, no tenderness , guarding or rigidity, no organomegaly EXTREMITIES: Right foot toe amputation site with wound dehiscencesignificant redness or foul-smelling drainage. SKIN: No rash, no masses palpable. NEUROLOGICAL: The patient is awake, alert, oriented x3, mood and affect normal. Results CBC & Chem 7: 05/22/23 02:27 05/22/23 02:27 Labs: Abnormal Lab Results - Last 24 Hours (Table) 05/20/23 05/20/23 05/20/23 Range/Units 14:59 14:59 15:38 Hgb 10.8 L (11.4-16.0) gm/dL MCHC 29.5 L (31.0-37.0) g/dL RDW 19.0 H (11.5-15.5) % Glucose 117 H (74-99) mg/dL AST (14-36) U/L Troponin I 0.055 H* (0.000-0.034) ng/mL Albumin 3.0 L (3.5-5.0) g/dL Urine Appearance (Clear) Urine RBC (0-5) /hpf Urine WBC (0-5) /hpf Amorphous Sediment (None) /hpf Urine Bacteria (None) /hpf Hyaline Casts (0-2) /lpf Urine Mucus (None) /hpf 05/20/23 05/20/23 05/21/23 Range/Units 18:01 21:13 00:51 Hgb (11.4-16.0) gm/dL MCHC (31.0-37.0) g/dL RDW (11.5-15.5) % Glucose (74-99) mg/dL AST (14-36) U/L Troponin I 0.575 H* 0.727 H* (0.000-0.034) ng/mL Albumin (3.5-5.0) g/dL Urine Appearance Cloudy H (Clear) Urine RBC 23 H (0-5) /hpf Urine WBC 166 H (0-5) /hpf Amorphous Sediment Rare H (None) /hpf Urine Bacteria Rare H (None) /hpf Hyaline Casts 5 H (0-2) /lpf Urine Mucus Many H (None) /hpf 05/21/23 05/21/23 Range/Units 08:09 08:09 Hgb 10.8 L (11.4-16.0) gm/dL MCHC 29.9 L (31.0-37.0) g/dL RDW 19.0 H (11.5-15.5) % Glucose (74-99) mg/dL AST 40 H (14-36) U/L Troponin I (0.000-0.034) ng/mL Albumin 3.1 L (3.5-5.0) g/dL Urine Appearance (Clear) Urine RBC (0-5) /hpf Urine WBC (0-5) /hpf Amorphous Sediment (None) /hpf Urine Bacteria (None) /hpf Hyaline Casts (0-2) /lpf Urine Mucus (None) /hpf Assessment and Plan (1) UTI (urinary tract infection) Status: Acute Code(s): N39.0 - URINARY TRACT INFECTION, SITE NOT SPECIFIED SNOMED Code(s): 37735731 (2) Ulcer of right leg Status: Acute Code(s): L97.919 - NON-PRS CHRONIC ULC UNSP PRT OF R LOW LEG W UNSP SEVERITY SNOMED Code(s): 37605769 Plan: 1patient with positive UA in this patient who did have a chronic indwelling Tadeo catheter last changed about 2 weeks ago did have some cloudy urine positive UA concerning for possible catheter associated UTI 2-patient did have a wound to the right first and second ablation site however overall wound base looks clean with no surrounding swelling redness or any drainage clinic suspicious low for infection at the right first and second amputation site 3-Tadeo catheter should be changed and urine culture obtained from the new Tadeo 4-continue with Rocephin while waiting for the culture to finalize We will follow on clinical condition and cultures to further adjust medication if needed Thank you for this consultation we will follow the patient along with you Dictation was produced using [employer] dictation software. please excuse any grammatical, word or spelling errors. Time with Patient: Greater than 30
[2023-05-22 03:08] LABS: Anisocytosis Slight; Basophils % (A) 0 %; Eosinophils # (A) 0.1 k/uL (0-0.7); Eosinophils % (A) 1 %; HCT 32.6 % (34.0-46.0); HGB 9.6 gm/dL (11.4-16.0); Hypochromasia Marked; Lymphocytes # (A) 1.9 k/uL (1.0-4.8); Lymphocytes % (A) 24 %; MCHC 29.6 g/dL (31.0-37.0); MCV 84.4 fL (80.0-100.0); Mean Platelet Volume 7.5; Monocytes # (A) 0.4 k/uL (0-1.0); Monocytes % (A) 5 %; Neutrophils # (A) 5.5 k/uL (1.3-7.7); Neutrophils % (A) 70 %; Platelet Count 266 k/uL (150-450); RBC 3.86 m/uL (3.80-5.40); RDW 19.1 % (11.5-15.5); WBC 7.9 k/uL (3.8-10.6)
[2023-05-22] MEDS: HEPARIN SOD,PORK IN 0.45% NACL 25,000 UNIT in 0.45% NACL 1 250ML.BAG IV SCH (03:14)
[2023-05-22 03:15] LABS: ALT 13 U/L (4-34); AST 23 U/L (14-36); African American GFR (CKD) >90 (>60 ml/min/1.73 sqM); Albumin 2.9 g/dL (3.5-5.0); Alkaline Phosphatase 124 U/L (38-126); Anion Gap 8 mmol/L; Blood Urea Nitrogen 14 mg/dL (7-17); Calcium 8.5 mg/dL (8.4-10.2); Carbon Dioxide 26 mmol/L (22-30); Chloride 104 mmol/L (98-107); Glucose 115 mg/dL (74-99); Non-African American GFR(CKD) 85 (>60 ml/min/1.73 sqM); Potassium 4.1 mmol/L (3.5-5.1); Sodium 138 mmol/L (137-145); Total Bilirubin 0.5 mg/dL (0.2-1.3)
[2023-05-22 03:22] LABS: INR 1.2 (<1.2); Partial Thromboplastin Time 27.3 sec (22.0-30.0); Prothrombin Time 12.5 sec (10.0-12.5)
[2023-05-22] MEDS: LETROZOLE 2.5 MG TAB PO SCH (08:44)
[2023-05-22] MEDS: GABAPENTIN 300 MG CAP PO SCH ×3 (08:44→20:50)
[2023-05-22] MEDS: ESCITALOPRAM 20 MG TAB PO SCH (08:44)
[2023-05-22] MEDS: CLOPIDOGREL 75 MG TAB PO SCH (08:44)
[2023-05-22] MEDS: AMIODARONE 200 MG TAB PO SCH ×2 (08:44→20:50)
[2023-05-22] MEDS: FUROSEMIDE 20 MG TAB PO SCH (08:44)
[2023-05-22] MEDS ORDERED: METOPROLOL SUCCINATE (ER) 25 MG TAB.ER.24H PO SCH (09:00)
--- NOTE | 2023-05-22 09:18 | P.PN ---
Subjective Progress Note Date: 05/22/23 Principal diagnosis: Right foot wound Patient is seen and examined today as a follow-up. She denies any chest pain, states shortness of breath is her normal. Denies any pain in her lower extremities, no fevers, chills or body aches. Currently on a heparin drip, cardiology following for chest pain, A. fib with RVR. Objective - Vital Signs Vital signs: Vital Signs Temp 97.7 F 05/22/23 08:00 Pulse 66 05/22/23 08:00 Resp 16 05/22/23 08:00 BP 120/75 05/22/23 08:00 Pulse Ox 97 05/22/23 08:00 FiO2 Intake & Output 05/21/23 05/22/23 05/22/23 18:59 06:59 18:59 Intake Total 145.333 319.929 358 Output Total 200 250 Balance -54.667 319.929 108 Weight 37.875 kg 52.5 kg Intake: IV 10 Invasive Line 1 10 Intake, IV Titration 135.333 119.929 Amount Diltiazem 125 mg In 85.333 Sodium Chloride 0.9% 100 ml @ 5 MG/HR 5 mls/hr IV .Q24H [facility] Rx#:[id number] Heparin Sod,Pork in 0.45% 119.929 NaCl 25,000 unit In 0.45 % NaCl 1 250ml.bag @ 12 UNITS/KG/HR 4.545 mls/hr IV .Q24H [facility] Rx#: [id number] cefTRIAXone 2 gm In 50 Sodium Chloride 0.9% 50 ml @ 100 mls/hr IVPB [facility] Rx#:[id number] Oral 200 358 Output: Urine 200 250 Other: Voiding Method Indwelling Catheter Indwelling Catheter - Exam General appearance: The patient is alert, oriented, appears in no acute distress. HET: Head is normocephalic and atraumatic. Neck: Supple. Abdomen: Soft, nondistended. Extremities: Right lower extremity first and second toe amputation, site with minimal drainage, no foul odor. Good capillary refill, warm to the touch. Left previous TMA site well healed, warm to touch with good capillary refill. Neurological: No focal deficits. - Labs CBC & Chem 7: 05/22/23 02:27 05/22/23 02:27 Labs: Abnormal Lab Results - Last 24 Hours (Table) 05/21/23 05/21/23 05/21/23 Range/Units 08:09 08:09 15:37 Hgb 10.8 L (11.4-16.0) gm/dL Hct (34.0-46.0) % MCHC 29.9 L (31.0-37.0) g/dL RDW 19.0 H (11.5-15.5) % INR (<1.2) APTT 74.6 H (22.0-30.0) sec Glucose (74-99) mg/dL AST 40 H (14-36) U/L Total Protein (6.3-8.2) g/dL Albumin 3.1 L (3.5-5.0) g/dL 05/21/23 05/22/23 05/22/23 Range/Units 21:30 02:27 02:27 Hgb 9.6 L (11.4-16.0) gm/dL Hct 32.6 L (34.0-46.0) % MCHC 29.6 L (31.0-37.0) g/dL RDW 19.1 H (11.5-15.5) % INR 1.2 H (<1.2) APTT 50.7 H (22.0-30.0) sec Glucose (74-99) mg/dL AST (14-36) U/L Total Protein (6.3-8.2) g/dL Albumin (3.5-5.0) g/dL 05/22/23 Range/Units 02:27 Hgb (11.4-16.0) gm/dL Hct (34.0-46.0) % MCHC (31.0-37.0) g/dL RDW (11.5-15.5) % INR (<1.2) APTT (22.0-30.0) sec Glucose 115 H (74-99) mg/dL AST (14-36) U/L Total Protein 6.0 L (6.3-8.2) g/dL Albumin 2.9 L (3.5-5.0) g/dL Assessment and Plan Assessment: 1. Chest pain 2. Shortness of breath 3. Atrial fibrillation with RVR 4. Urinary tract infection 5. Right toe amputation site wound, currently under wound care 6. Peripheral arterial disease 7. Chronic tobacco abuse 8. History COPD 9. Peripheral neuropathy Plan: There is no indication for any vascular surgical intervention. Wound care clinic on consult, continue local wound care per their recommendations. Continue further workup/recommendations from cardiology. The rest of patient's care deferred to primary medical team. Patient is stable from a vascular surgical standpoint and may be discharged at the discretion of primary medical team. Patient to follow-up with Dr. Tadeo as previously scheduled. The impression and plan of care has been dictated as directed. I performed a history and examination of this patient, discussed the same with the dictator. I agree with the dictator's note ,documented as a scribe. Any additional findings or plans will be noted.
--- NOTE | 2023-05-22 09:24 | P.CONS ---
History of Present Illness - Reason for Consult Consult date: 05/22/23 wound care - History of Present Illness This is a 77-year-old patient known to the wound care center being seen on for nonhealing ulceration to the right foot indication site. The wound has been in treatment 10 weeks. The wound is currently classified as a Full Thickness With Exposed Support Structures wound with etiology of Arterial Insufficiency Ulcer and is located on the Right,Medial Amputation Site - Toe. T he wound measures 1cm length x 0.9cm width x 0.9cm depth; 0.707cm^2 area and 0.636cm^3 volume. There is Fat Layer (Subcutaneous Tissue) exposed. There is no tunneling or undermining noted. There is a medium amount of serosanguineous drainage noted. The wound margin is well defined and not attached to the wound base. There is medium (34-66%) red granulation within the wound bed. There is a medium (34-66%) amount of necrotic tissue within the wound bed including Adherent Slough. The periwound skin appearance exhibited: Scarring, Erythema. The periwound has tenderness on palpation. The ulceration has appeared to decline compared to last visit. Review Of Systems: Constitutional: No fever, no chills, no night sweats. No weight change. No weakness, fatigue or lethargy. No daytime sleepiness. Integumentary:reports wounds, no lesions. No rash or pruritus. No unusual bruising. No change in hair or nails. Physical exam: General Appearance: Alert, cooperative, no distress, appears stated age. Skin: See HPI all other Skin color, texture, tugor normal, no rashes or lesions. Neurologic: Alert oriented x3 Assessment: 1.Atherosclerosis of [place] arteries of left leg with ulceration of other part of foot 2. Atherosclerosis of [place] arteries of right leg with ulceration of other part of foot 3. Non-pressure chronic ulcer of other part of left foot with necrosis of bone 4. Non-pressure chronic ulcer of other part of right foot with necrosis of bone Plan: 1. Apply Santyl, saline moistened gauze, dry gauze, rolled gauze and secure with paper tape. Wound culture obtained. Patient returned to the wound care center on May at 1:45. Thank you for the consultation any questions please contact the wound care center. DNP note has been reviewed and discussed with Dr. Sanchez and the impression and plan of care has been directed as dictated. Past Medical History Past Medical History: Atrial Fibrillation, Coronary Artery Disease (CAD), Cancer, Heart Failure, COPD, CVA/TIA, Hyperlipidemia, Hypertension, Mitral Valve Prolapse (MVP), Neurologic Disorder, Osteoarthritis (OA), Pneumonia, Skin Disorder, Sleep Apnea/CPAP/BIPAP, Vascular Disorder Additional Past Medical History / Comment(s): right breast cancer (mastectomy november 2021)., multiple Sclerosis ,PAD, states feet are red & purple in color, marlys a both feet., peripheral neuropathy., CVA x2 Jul/Aug 2021 gait unsteady-uses w/c., generalized weakness., hx anemia with iron infusions., hx hospitalization for collapsed lung and respiratory failure with intubation., states lump on her vocal cord/biopsy neg., oxygen at 2.5-4 L prn, sleep apnea (no machine) History of Any Multi-Drug Resistant Organisms: None Reported Past Surgical History: Appendectomy, Breast Surgery, Coronary Bypass/CABG, Heart Catheterization With Stent, Orthopedic Surgery, Tonsillectomy Additional Past Surgical History / Comment(s): 08/17/21 surgery at [place] for benign mass upper back., 11/2020 CABG 4 vessel, PCI/stents in and lastly 12/04/22, bilateral iliac arthrectomy/stents ., left foot wound debridements, bronchoscopy/lavage, bilateral breast biopsies, D&C, lumpectomy right breast 08/2021. Right mastectomy (11/26/21), BX TONGUE LESION AND MICROLARYNGOSCOPY negative FOR CANCER, RIGHT FOOT TOE AMPUTATION Past Anesthesia/Blood Transfusion Reactions: No Reported Reaction, Motion Sickness Additional Past Anesthesia/Blood Transfusion Reaction / Comm: No hx blood transfusion. Date of Last Stent Placement:: 12/04/22 Past Psychological History: Anxiety, Depression Additional Psychological History / Comment(s): Pt's due to Covid beginning of July 2021. Pt resides with 2 grandsons and [id number]. Smoking Status: Current every day smoker Past Alcohol Use History: None Reported Additional Past Alcohol Use History / Comment(s): started smoking 1960 (up to 3 ppd), quit may 2020 and restarted in 2021 (1/2-1 ppd). Past Drug Use History: None Reported Additional Drug Use History / Comment(s): . - Past Family History Father Family Medical History: No Reported History Additional Family Medical History / Comment(s): alcoholism, . Mother Family Medical History: Cancer Additional Family Medical History / Comment(s): Breast and brain cancer. Medications and Allergies Home Medications Medication Instructions Recorded Confirmed Type Fluticasone/Umeclidin/Vilanter 1 puff INHALATION RT-DAILY PRN 11/01/21 05/20/23 History [Trelegy Ellipta 100-62.5-25] Nitroglycerin Sl Tabs [Nitrostat] 0.4 mg SL Q5M PRN 04/16/22 05/20/23 History Albuterol Sulfate [Ventolin HFA] 1 puff INHALATION RT-Q6H PRN 09/16/22 05/20/23 History Gabapentin [Neurontin] 300 mg PO TID 09/16/22 05/20/23 History Escitalopram [Lexapro] 20 mg PO QAM 10/27/22 05/20/23 History Albuterol Nebulized [Ventolin 2.5 mg INHALATION RT-QID PRN 11/07/22 05/20/23 History Nebulized] Clopidogrel [Plavix] 75 mg PO QAM 01/13/23 05/20/23 History Letrozole 2.5 mg PO QAM 01/13/23 05/20/23 History HYDROcodone/APAP 5-325MG [[place] 1 tab PO DAILY PRN 02/16/23 05/20/23 History 5-325] Furosemide [Lasix] 20 mg PO DAILY 05/20/23 05/20/23 History Metoprolol Tartrate [Lopressor] 50 mg PO DAILY 05/20/23 05/20/23 History Allergies Allergy/AdvReac Type Severity Reaction Status Date / Time sumatriptan [From Imitrex] AdvReac Chest Pain Verified 05/20/23 16:30 Physical Exam Vitals: Vital Signs Temp Pulse Pulse Resp BP Pulse Ox 05/22/23 08:00 97.7 F 66 16 120/75 97 05/22/23 04:00 98.2 F 53 L 16 147/69 99 05/22/23 02:00 55 L 16 05/22/23 00:00 97.6 F 55 L 16 132/72 98 05/21/23 20:00 65 16 116/67 96 05/21/23 16:15 56 L 16 117/75 99 05/21/23 15:49 62 05/21/23 15:39 60 05/21/23 11:48 97.1 F L 50 L 16 100/50 96 05/21/23 11:27 72 05/21/23 11:17 70 Intake and Output 05/21/23 05/22/23 05/22/23 22:59 06:59 14:59 Intake Total 285.37 34.559 358 Output Total 250 Balance 285.37 34.559 108 Intake: Intake, IV Titration 85.37 34.559 Amount Heparin Sod,Pork in 0.45% 85.37 34.559 NaCl 25,000 unit In 0.45 % NaCl 1 250ml.bag @ 12 UNITS/KG/HR 4.545 mls/hr IV .Q24H [facility] Rx#: [id number] Oral 200 358 Output: Urine 250 Other: Voiding Method Indwelling Catheter Indwelling Catheter Weight 52.5 kg Results CBC & Chem 7: 05/22/23 02:27 05/22/23 02:27 Labs: Abnormal Lab Results - Last 24 Hours (Table) 05/21/23 05/21/23 05/21/23 Range/Units 08:09 15:37 21:30 Hgb (11.4-16.0) gm/dL Hct (34.0-46.0) % MCHC (31.0-37.0) g/dL RDW (11.5-15.5) % INR (<1.2) APTT 74.6 H 50.7 H (22.0-30.0) sec Glucose (74-99) mg/dL AST 40 H (14-36) U/L Total Protein (6.3-8.2) g/dL Albumin 3.1 L (3.5-5.0) g/dL 05/22/23 05/22/23 05/22/23 Range/Units 02:27 02:27 02:27 Hgb 9.6 L (11.4-16.0) gm/dL Hct 32.6 L (34.0-46.0) % MCHC 29.6 L (31.0-37.0) g/dL RDW 19.1 H (11.5-15.5) % INR 1.2 H (<1.2) APTT (22.0-30.0) sec Glucose 115 H (74-99) mg/dL AST (14-36) U/L Total Protein 6.0 L (6.3-8.2) g/dL Albumin 2.9 L (3.5-5.0) g/dL
[2023-05-22] MEDS: IPRATROPIUM 0.5 MG/2.5 ML NEBU INHALATION SCH ×4 (09:43→21:03)
[2023-05-22] MEDS: SYMBICORT 80-4.5 MCG INHALER INHALATION SCH ×2 (09:43→21:03)
[2023-05-22] MEDS: COLLAGENASE 250 UNIT/GM OINTMENT 30 GM TUBE TOPICAL SCH ×2 (11:02→11:58)
[2023-05-22] MEDS: SODIUM CHLORIDE 0.9% 1,000 ML IV SCH (11:50)
--- NOTE | 2023-05-22 12:03 | CA ---
Transthoracic Echo Report Name: Sharmila Ayers Age: 77 Gender: F : 1945 Exam Date: 05/22/2023 09:23 Exam Location: [place] [facility] Ht (in): 58 Wt (lb): 83 Ordering Physician: Seamus Jones DO ([email or web address]) Attending/Referring Phys: Clerk Checker Procedure CPT: Indications: re: NSTEMI Cardiac Hx: Technical Quality: Fair Contrast 1: Total Dose (mL): Contrast 2: Total Dose (mL): MEASUREMENTS (Male / Female) Normal Values 2D ECHO LV Diastolic Diameter PLAX 3.9 cm 4.2 - 5.9 / 3.9 - 5.3 cm LV Systolic Diameter PLAX 3.1 cm IVS Diastolic Thickness 1.4 cm 0.6 - 1.0 / 0.6 - 0.9 cm LVPW Diastolic Thickness 1.1 cm 0.6 - 1.0 / 0.6 - 0.9 cm LV Relative Wall Thickness 0.6 RV Internal Dim ED PLAX 3.0 cm LVOT Diameter 1.6 cm Aortic Root Diameter 2.4 cm LA Systolic Diameter LX 3.1 cm 3.0 - 4.0 / 2.7 - 3.8 cm LV Diastolic Volume MOD BP 52.7 cm??? 67 - 155 / 56 - 104 cm??? LV Systolic Volume MOD BP 33.0 cm??? - / 19 - 49 cm??? LV Ejection Fraction MOD BP 37.5 % >= 55 % LV Cardiac Index MOD BP 1038.1 cm???/min???m??? LV Diastolic Volume MOD 4C 36.8 cm??? LV Systolic Volume MOD 4C 19.2 cm??? LV Ejection Fraction MOD 4C 47.9 % LV Cardiac Index MOD 4C 928.2 cm???/min???m??? LV Diastolic Length 4C 6.7 cm LV Systolic Length 4C 6.1 cm LV Diastolic Volume MOD 2C 69.6 cm??? LV Systolic Volume MOD 2C 49.5 cm??? LV Ejection Fraction MOD 2C 28.9 % LV Cardiac Index MOD 2C 1057.3 cm???/min???m??? LV Diastolic Length 2C 7.3 cm LV Systolic Length 2C 7.0 cm LA Volume 62.8 cm??? 18 - 58 / 22 - 52 cm??? LA Volume Index 50.8 cm???/m??? 16 - 28 cm???/m??? DOPPLER AV Peak Velocity 102.4 cm/s AV Peak Gradient 4.2 mmHg LVOT Peak Velocity 63.3 cm/s LVOT Peak Gradient 1.6 mmHg LVOT Velocity Time Integral 10.7 cm LVOT Stroke Volume 21.8 cm??? LVOT Stroke Volume Index 17.4 ml/m??? LVOT Cardiac Index 1148.4 cm???/min???m??? AV Area Cont Eq pk 1.3 cm??? MV Peak Velocity 107.1 cm/s MV Peak Gradient 4.6 mmHg MV Mean Velocity 36.2 cm/s MV Mean Gradient 0.8 mmHg MV Velocity Time Integral 30.3 cm MR Peak Velocity 460.0 cm/s MR Peak Gradient 84.6 mmHg Mitral E Point Velocity 113.3 cm/s Mitral A Point Velocity 43.8 cm/s Mitral E to A Ratio 2.6 MV Deceleration Time 143.4 ms MV E' Velocity 2.8 cm/s Mitral E to MV E' Ratio 41.1 TR Peak Velocity 210.3 cm/s TR Peak Gradient 17.7 mmHg Right Ventricular Systolic Press 23.0 mmHg PV Peak Velocity 89.9 cm/s PV Peak Gradient 3.2 mmHg FINDINGS Left Ventricle Normal LV size. Moderate concentric LVH. Moderately reduced global LV systolic function. LVEF estimated at 40-45%. Inferior and inferolateral wall hypokinesia. Grade III diastolic dysfunction Right Ventricle Normal right ventricular size. RVSP estimated at 30 mmHg Right Atrium Mild right atrial dilatation. Left Atrium Moderate left atrial dilatation. Elevated left atrial pressures. LA volume index= 50ml/m2. Mitral Valve Structurally normal mitral valve. Moderate MR. Aortic Valve Trileaflet aortic valve. Mild AV sclerosis/calcification. Tricuspid Valve Structurally normal tricuspid valve. Pulmonic Valve Pulmonic valve not well visualized. Moderate PI. Pericardium Normal pericardium. Aorta Normal size aortic root. CONCLUSIONS LVEF estimated at 40-45% Moderately reduced global LV systolic function Moderate concentric LVH Inferior and inferolateral wall hypokinesia next and grade 2 diastolic dysfunction Moderate left atrial dilatation with elevated left atrial pressures Moderate mitral regurgitation RVSP estimated at 30 mmHg. No pericardial effusion Previewed by: Dr Hector Aragon (Electronically Signed) Final Date: 22 May 2023 12:02
--- NOTE | 2023-05-22 13:07 | P.PN ---
Subjective Progress Note Date: 05/22/23 Principal diagnosis: Catheter associated urinary tract infection Patient is a 77-year-old female with a past medical history significant for atrial fibrillation coronary disease heart failure with CVA TIA hypertension hyperlipidemia in this patient also with history of peripheral arterial disease and recently did have a right first and second toe amputated, presenting to the ER for evaluation of chest pain shortness of breath also noticed to have a positive Jaime concerning for catheter associated UTI, the patient Tadeo catheter was seen yesterday On today's evaluation that is 05/22/2023, the patient denies any fever or any chills, the patient is breathing comfortably on 2 L nasal cannula supplemental oxygen, the patient denies any chest pain or cough, patient denies any nausea/vomiting or diarrhea and no abdominal pain. Patient did have white count of 7.9 creatinine 0.70 cultures are pending Objective - Vital Signs Vital signs: Vital Signs Temp 97.7 F 05/22/23 08:00 Pulse 66 05/22/23 08:00 Resp 16 05/22/23 08:00 BP 120/75 05/22/23 08:00 Pulse Ox 97 05/22/23 08:00 FiO2 Intake & Output 05/21/23 05/22/23 05/22/23 18:59 06:59 18:59 Intake Total 145.333 319.929 368 Output Total 200 250 Balance -54.667 319.929 118 Weight 37.875 kg 52.5 kg Intake: IV 10 10 Invasive Line 1 10 10 Intake, IV Titration 135.333 119.929 Amount Diltiazem 125 mg In 85.333 Sodium Chloride 0.9% 100 ml @ 5 MG/HR 5 mls/hr IV .Q24H [facility] Rx#:[id number] Heparin Sod,Pork in 0.45% 119.929 NaCl 25,000 unit In 0.45 % NaCl 1 250ml.bag @ 12 UNITS/KG/HR 4.545 mls/hr IV .Q24H [facility] Rx#: [id number] cefTRIAXone 2 gm In 50 Sodium Chloride 0.9% 50 ml @ 100 mls/hr IVPB ONCE [facility] Rx#:[id number] Oral 200 358 Output: Urine 200 250 Other: Voiding Method Indwelling Catheter Indwelling Catheter Indwelling Catheter - Exam GENERAL DESCRIPTION: An elderly female lying in bed in no distress RESPIRATORY SYSTEM: Unlabored breathing , clear to auscultation anteriorly HEART: S1 S2 regular rate and rhythm , ABDOMEN: Soft , no tenderness EXTREMITIES: Right foot amputation site wound is currently dressed - Labs CBC & Chem 7: 05/22/23 02:27 05/22/23 02:27 Labs: Abnormal Lab Results - Last 24 Hours (Table) 05/21/23 05/21/23 05/22/23 Range/Units 15:37 21:30 02:27 Hgb (11.4-16.0) gm/dL Hct (34.0-46.0) % MCHC (31.0-37.0) g/dL RDW (11.5-15.5) % INR 1.2 H (<1.2) APTT 74.6 H 50.7 H (22.0-30.0) sec Glucose (74-99) mg/dL Total Protein (6.3-8.2) g/dL Albumin (3.5-5.0) g/dL 05/22/23 05/22/23 05/22/23 Range/Units 02:27 02:27 09:55 Hgb 9.6 L (11.4-16.0) gm/dL Hct 32.6 L (34.0-46.0) % MCHC 29.6 L (31.0-37.0) g/dL RDW 19.1 H (11.5-15.5) % INR (<1.2) APTT 34.4 H (22.0-30.0) sec Glucose 115 H (74-99) mg/dL Total Protein 6.0 L (6.3-8.2) g/dL Albumin 2.9 L (3.5-5.0) g/dL Assessment and Plan (1) UTI (urinary tract infection) Current Visit: Yes Status: Acute Code(s): N39.0 - URINARY TRACT INFECTION, SITE NOT SPECIFIED SNOMED Code(s): 38314165 Plan: 1patient with positive UA in this patient who did have a chronic indwelling Tadeo catheter last changed about 2 weeks ago did have some cloudy urine positiv e UA concerning for possible catheter associated UTI 2-patient did have a wound to the right first and second ablation site however overall wound base looks clean with no surrounding swelling redness or any drainage clinic suspicious low for infection at the right first and second amputation site 3-Tadeo catheter has been changed and urine culture currently pending 4-patient to continue with Rocephin while waiting for the culture to finalize Dictation was produced using [employer] dictation software. please excuse any grammatical, word or spelling errors. Time with Patient: Less than 30
--- NOTE | 2023-05-22 15:02 | P.PN ---
Subjective Progress Note Date: 05/22/23 HISTORY OF PRESENT ILLNESS: This is a 77-year-old female with a past medical history significant for pe ripheral vascular disease, atrial fibrillation, breast cancer, coronary artery disease with previous CABG in 2020 and subsequent stenting, COPD, multiple sclerosis, ischemic cardiomyopathy, and CVA. Patient follows in the office with Dr. Adame. We have been asked to see the patient in consultation for chest pain and NSTEMI. She states she was on her way to wound clinic when she started having chest pain which would not improve with 2 nitros and then attempted to go to wound clinic however was redirected to the emergency department. Chest pain was somewhat more significant than the majority of her other types of chest pain. She has been noticing she has been feeling short of breath the last 2-3 weeks as well. In addition her right lower extremity wound is not healing well and is scheduled to see Dr. Tadeo with vascular surgery in the next few weeks. Her right lower extremity is cool to touch and does not have good feeling in it. She was placed on Cardizem drip however converted to normal sinus rhythm. Troponins 0.05, 0.5, 0.7. Currently denies any chest pain. She is unsure when she is in A. fib however usually does not have this prolonged episodes of chest pain. * Most recent echocardiogram obtained in October 2022 revealing ejection fraction 35-40%, mild pulmonary hypertension, moderate mitral regurgitation and mild tricuspid regurgitation [id number] pulmonic regurgitation and small pericardial effusion * Cardiac catheterization history: 12/04/[address] Mnotoya revealing extremely calcified right and left coronary system with severe triple vessel coronary artery disease. Intermediate to severe disease involving the SVG to LAD and a critical disease involving the LAD distal to the SVG anastomosis. Occluded BAUTISTA to OM/left circumflex. Patent SVG to RCA. Patient underwent successful stenting of the proximal left circumflex. 05/22 Patient is seen today in follow-up. Telemetry is sinus rhythm. Blood pressure 130/79, heart rate is in the 50s and 60s, pulse ox 90% on 3 L nasal cannula patient has been started on amiodarone 400 mg twice daily for rhythm control. Patient is also on heparin drip. Echocardiogram reveals EF of 40-45%, moderate concentric left hypertrophy, moderate mitral regurgitation. Patient states that breathing is better. She denies palpitations. No chest pain today. Patient is nonambulatory. PHYSICAL EXAM: VITAL SIGNS: Reviewed. GENERAL: Well-developed in no acute distress, chronically ill appearing HEENT: Head is normocephalic. Pupils are equal, round. Sclerae anicteric. Mucous membranes of the mouth are moist. Neck supple. No JVD or thyromegaly LUNGS: Respirations even and unlabored. Lungs essentially clear to auscultation bilaterally. HEART: Regular rate and rhythm. S1 and S2 heard. ABDOMEN: Soft. Nondistended. Nontender. EXTREMITIES: Normal range of motion. No clubbing or cyanosis. Necrosis noted to left toes with nonhealing incision, cool extremities. NEUROLOGIC: Awake and alert. Oriented x 3. ASSESSMENT: Chest pain, NSTEMI, appears mostly related to Afib with RVR Left lower extremity PAD Recent left SFA angioplasty of in-stent stenosis, October 2022 Coronary artery disease with previous four-vessel CABG in 2020 and recent stenting of proximal left circumflex on 12/04/2022 Paroxysmal atrial fibrillation Ischemic cardiomyopathy, EF 35-40%, now 40-45% COPD Multiple sclerosis History of breast cancer History of CVA Moderate mitral regurgitation PLAN: Patient with acute onset of chest pain however likely more related to A. fib with RVR and non-STEMI. Recent heart catheterization from November with multiple etiologies of ischemia however majority of symptoms appear related to A. fib with RVR. We therefore will attempt rhythm control with amiodarone. Continue amiodarone 400 mg twice daily for 7 days, 200 mg twice daily for 7 days and then 200 mg daily Decrease metoprolol to 12.5 mg Discontinue heparin drip and start eliquis 5 mg twice daily No plan for cardiac catheterization at this time Continue to monitor overnight and possible discharge tomorrow Further recommendations to follow. Nurse practitioner note has been reviewed, I agree with the documented findings and plan of care. Patient was seen and examined. Objective - Vital Signs Vital signs: Vital Signs Temp 97.7 F 05/22/23 08:00 Pulse 57 L 05/22/23 12:21 Resp 16 05/22/23 12:21 BP 130/79 05/22/23 12:21 Pulse Ox 98 05/22/23 12:21 FiO2 Intake & Output 05/21/23 05/22/23 05/22/23 18:59 06:59 18:59 Intake Total 145.333 319.929 423.226 Output Total 200 250 Balance -54.667 319.929 173.226 Weight 37.875 kg 52.5 kg Intake: IV 10 10 Invasive Line 1 10 10 Intake, IV Titration 135.333 119.929 55.226 Amount Diltiazem 125 mg In 85.333 Sodium Chloride 0.9% 100 ml @ 5 MG/HR 5 mls/hr IV .Q24H [facility] Rx#:[id number] Heparin Sod,Pork in 0.45% 119.929 55.226 NaCl 25,000 unit In 0.45 % NaCl 1 250ml.bag @ 12 UNITS/KG/HR 4.545 mls/hr IV .Q24H [facility] Rx#: [id number] cefTRIAXone 2 gm In 50 Sodium Chloride 0.9% 50 ml @ 100 mls/hr IVPB ONCE STA Rx#:[id number] Oral 200 358 Output: Urine 200 250 Other: Voiding Method Indwelling Catheter Indwelling Catheter Indwelling Catheter - Labs CBC & Chem 7: 05/22/23 02:27 05/22/23 02:27 Labs: Abnormal Lab Results - Last 24 Hours (Table) 05/21/23 05/21/23 05/22/23 Range/Units 15:37 21:30 02:27 Hgb (11.4-16.0) gm/dL Hct (34.0-46.0) % MCHC (31.0-37.0) g/dL RDW (11.5-15.5) % INR 1.2 H (<1.2) APTT 74.6 H 50.7 H (22.0-30.0) sec Glucose (74-99) mg/dL Total Protein (6.3-8.2) g/dL Albumin (3.5-5.0) g/dL 05/22/23 05/22/23 05/22/23 Range/Units 02:27 02:27 09:55 Hgb 9.6 L (11.4-16.0) gm/dL Hct 32.6 L (34.0-46.0) % MCHC 29.6 L (31.0-37.0) g/dL RDW 19.1 H (11.5-15.5) % INR (<1.2) APTT 34.4 H (22.0-30.0) sec Glucose 115 H (74-99) mg/dL Total Protein 6.0 L (6.3-8.2) g/dL Albumin 2.9 L (3.5-5.0) g/dL
[2023-05-22 16:31] LABS: Appearance,Urine Slightly Cloudy (Clear); Bilirubin,Urine Negative (Negative); Color,Urine Yellow; Glucose,Urine (UA) Negative (Negative); Ketones,Urine Negative (Negative); Protein,Urine 1+ (Negative); Specific Gravity,Urine 1.025 (1.001-1.035)
[2023-05-22 16:32] LABS: Blood,Urine Trace (Negative); Leukocyte Esterase,Urine Moderate (Negative); Nitrite,Urine Negative (Negative); Urobilinogen,Urine <2.0 mg/dL (<2.0)
[2023-05-22] MEDS: ACETAMINOPHEN TAB 325 MG TAB PO PRN (16:33)
[2023-05-22 16:34] LABS: Hyaline Casts,Urine 25 /lpf (0-2); Mucus,Urine Rare /hpf; RBC,Urine 25 /hpf (0-5); Squamous Epithelial Cell,Urine 1 /hpf (0-4); WBC,Urine 23 /hpf (0-5)
--- NOTE | 2023-05-22 18:53 | P.PN ---
Subjective This is a pleasant 77 years old female with multiple medical problems. Patient presents on 05/20 where chest pain was relieved by nitro. Patient is bothered by wire communications engineer and found to have non-STEMI with elevated troponin and she was treated with heparin drip for 24 hours which is a stop today and switch to oral Eliquis. Patient states that before she could not afford Eliquis and she was getting samples from her wire communications engineer. We will check the co-pay for Eliquis and case was discussed with case checker. Vascular surgeon also evaluated the patient for lower extremity peripheral artery disease. Patient was cleared for discharge by [facility] surgery team. She told me she has appointment with Dr. Mills on 06/04 she intends to follow up wit h. Patient herself she feels she can go home today. However wire communications engineer change some of her medications and she will be monitored today. She was placed on tapered dose of amiodarone started 400 mg twice daily, small dose of metoprolol 12.5 mg as well as a blood thinner. Cardiology team following with the patient. Also patient with evidence of UTI and possible wound infection and currently the urine culture and wound culture are still pending. She remains on ceftriaxone. patient awake alert she looks comfortable, she denies chest pain. No dyspnea. No other new complaints. Patient states at home she is wheelchair bound and she is not walking a lot. Objective - Vital Signs Vital signs: Vital Signs Temp 97.8 F 05/22/23 16:49 Pulse 62 05/22/23 17:56 Resp 18 05/22/23 16:49 BP 121/71 05/22/23 16:49 Pulse Ox 99 05/22/23 16:49 FiO2 Intake & Output 05/21/23 05/22/23 05/22/23 18:59 06:59 18:59 Intake Total 145.333 319.929 423.226 Output Total 200 250 Balance -54.667 319.929 173.226 Weight 37.875 kg 52.5 kg Intake: IV 10 10 Invasive Line 1 10 10 Intake, IV Titration 135.333 119.929 55.226 Amount Diltiazem 125 mg In 85.333 Sodium Chloride 0.9% 100 ml @ 5 MG/HR 5 mls/hr IV .Q24H [facility] Rx#:[id number] Heparin Sod,Pork in 0.45% 119.929 55.226 NaCl 25,000 unit In 0.45 % NaCl 1 250ml.bag @ 12 UNITS/KG/HR 4.545 mls/hr IV .Q24H [facility] Rx#: [id number] cefTRIAXone 2 gm In 50 Sodium Chloride 0.9% 50 ml @ 100 mls/hr IVPB ONCE STA Rx#:[id number] Oral 200 358 Output: Urine 200 250 Other: Voiding Method Indwelling Catheter Indwelling Catheter Indwelling Catheter - Exam GENERAL: The patient is alert and oriented x3, not in any acute distress. Well developed, well nourished. HEENT: Pupils are round and equally reacting to light. EOMI. No scleral icterus. No conjunctival pallor. Normocephalic, atraumatic. No pharyngeal erythema. No thyromegaly. CARDIOVASCULAR: S1 and S2 present. No murmurs, rubs, or gallops. PULMONARY: Chest is clear to auscultation, no wheezing , no crackles. ABDOMEN: Soft, nontender, nondistended, normoactive bowel sounds. No palpable organomegaly. MUSCULOSKELETAL: No joint swelling or deformity. EXTREMITIES: No cyanosis, clubbing, or pedal edema. NEUROLOGICAL: Gross neurological examination did not reveal any focal deficits. SKIN: No rashes. no petechiae. - Labs CBC & Chem 7: 05/22/23 02:27 05/22/23 02:27 Labs: Abnormal Lab Results - Last 24 Hours (Table) 05/21/23 05/21/23 05/22/23 Range/Units 18:01 21:30 02:27 Hgb (11.4-16.0) gm/dL Hct (34.0-46.0) % MCHC (31.0-37.0) g/dL RDW (11.5-15.5) % INR 1.2 H (<1.2) APTT 50.7 H (22.0-30.0) sec Glucose (74-99) mg/dL Total Protein (6.3-8.2) g/dL Albumin (3.5-5.0) g/dL Urine Appearance Slightly Cloudy H (Clear) Urine Protein 1+ H (Negative) Urine RBC 25 H (0-5) /hpf Urine WBC 23 H (0-5) /hpf Hyaline Casts 25 H (0-2) /lpf Urine Mucus Rare H (None) /hpf 05/22/23 05/22/23 05/22/23 Range/Units 02:27 02:27 09:55 Hgb 9.6 L (11.4-16.0) gm/dL Hct 32.6 L (34.0-46.0) % MCHC 29.6 L (31.0-37.0) g/dL RDW 19.1 H (11.5-15.5) % INR (<1.2) APTT 34.4 H (22.0-30.0) sec Glucose 115 H (74-99) mg/dL Total Protein 6.0 L (6.3-8.2) g/dL Albumin 2.9 L (3.5-5.0) g/dL Urine Appearance (Clear) Urine Protein (Negative) Urine RBC (0-5) /hpf Urine WBC (0-5) /hpf Hyaline Casts (0-2) /lpf Urine Mucus (None) /hpf Assessment and Plan Assessment: A. fib with RVR, present on admission Acute urinary tract infection Elevated troponin secondary to non-STEMI Left lower extremity peripheral artery disease Recent L SFA angioplasty on 10/2022 Coronary artery disease status post CABG on 11/2022 Chronic systolic heart failure with ejection fraction 35-40% Multiple sclerosis, history of 2. Breast cancer History of CVA Plan: Continue with ceftriaxone Follow-up urine culture and wound culture [facility] disease team on the case. Vp Site following the patient as well Continue with amiodarone, small dose of metoprolol and Eliquis manager employee benefits to check for Eliquis Labs and medication were reviewed.. Continue same treatment. Continue with symptomatic treatment. Resume home medication. Monitor labs and vitals. DVT and GI prophylaxis. Further recommendations as per clinical course of the patient DVT prophylaxis: Eliquis GI Prophylaxis: Pepcid PT/OT: Pending Prognosis is guarded
[2023-05-22] MEDS: APIXABAN 5 MG TAB PO SCH (20:50)
[2023-05-22] MEDS ORDERED: FAMOTIDINE 20 MG/2 ML VIAL IV SCH (21:00)
[2023-05-23] MEDS: SODIUM CHLORIDE 0.9% 1,000 ML IV SCH ×2 (01:51→18:41)
[2023-05-23] MEDS: IPRATROPIUM 0.5 MG/2.5 ML NEBU INHALATION SCH ×4 (07:29→21:02)
[2023-05-23] MEDS: SYMBICORT 80-4.5 MCG INHALER INHALATION SCH ×2 (07:30→21:02)
[2023-05-23] MEDS: GABAPENTIN 300 MG CAP PO SCH ×3 (08:37→19:49)
[2023-05-23] MEDS: METOPROLOL SUCCINATE (ER) 25 MG TAB.ER.24H PO SCH (08:38)
[2023-05-23] MEDS: FUROSEMIDE 20 MG TAB PO SCH (08:38)
[2023-05-23] MEDS: CLOPIDOGREL 75 MG TAB PO SCH (08:38)
[2023-05-23] MEDS: LETROZOLE 2.5 MG TAB PO SCH (08:38)
[2023-05-23] MEDS: FAMOTIDINE 20 MG TAB PO SCH ×2 (08:38→19:49)
[2023-05-23] MEDS: AMIODARONE 200 MG TAB PO SCH ×2 (08:38→19:49)
[2023-05-23] MEDS: APIXABAN 5 MG TAB PO SCH ×2 (08:38→19:49)
[2023-05-23] MEDS: ESCITALOPRAM 20 MG TAB PO SCH (08:38)
[2023-05-23] MEDS: HYDROcodone/APAP 5-325MG 1 EACH TAB PO PRN (08:41)
--- NOTE | 2023-05-23 10:44 | P.PN ---
Subjective This is a pleasant 77 years old female with multiple medical problems. Patient presents on 05/20 where chest pain was relieved by nitro. Patient is bothered by power supply engineer and found to have non-STEMI with elevated troponin and she was treated with heparin drip for 24 hours which is a stop today and switch to oral Eliquis. Patient states that before she could not afford Eliquis and she was getting samples from her power supply engineer. We will check the co-pay for Eliquis and case was discussed with watch caser. Vascular surgeon also evaluated the patient for lower extremity peripheral artery disease. Patient was cleared for discharge by [facility] surgery team. She told me she has appointment with Dr. Mills on 06/04 she intends to follow up wit h. Patient herself she feels she can go home today. However power supply engineer change some of her medications and she will be monitored today. She was placed on tapered dose of amiodarone started 400 mg twice daily, small dose of metoprolol 12.5 mg as well as a blood thinner. Cardiology team following with the patient. Also patient with evidence of UTI and possible wound infection and currently the urine culture and wound culture are still pending. She remains on ceftriaxone. patient awake alert she looks comfortable, she denies chest pain. No dyspnea. No other new complaints. Patient states at home she is wheelchair bound and she is not walking a lot. 05/23/2023 Patient says that she feels fine. No chest pain. No leg pain. No other new complaint. She is afebrile and vitals stable. Her blood pressure slightly elevated this morning, power supply engineer on the case. Metoprolol dose was lowered to 12.5 physical bradycardia. Also she is kept on amiodarone taper upon discharge. Cardiovascular start her on eliquis which she was taking at home as samples from her power supply engineer. Currently her co-pay for Eliquis is $138 and she says she cannot afford that. She remains on ceftriaxone. Urine culture showing polymicrobial growth. I discussed the case todayv with vascular Surgery or the evaluated the patient and site of the case Objective - Vital Signs Vital signs: Vital Signs Temp 97.3 F L 05/23/23 08:35 Pulse 69 05/23/23 08:35 Resp 16 05/23/23 08:35 BP 182/70 05/23/23 08:35 Pulse Ox 97 05/23/23 08:35 FiO2 Intake & Output 05/22/23 05/23/23 05/23/23 18:59 06:59 18:59 Intake Total 423.226 20 Output Total 500 100 Balance -76.774 -100 20 Intake: IV 10 20 Invasive Line 1 10 10 Invasive Line 2 10 Intake, IV Titration 55.226 Amount Heparin Sod,Pork in 0.45% 55.226 NaCl 25,000 unit In 0.45 % NaCl 1 250ml.bag @ 12 UNITS/KG/HR 4.545 mls/hr IV .Q24H [facility] Rx#: [id number] Oral 358 Output: Urine 500 100 Other: Voiding Method Indwelling Catheter Indwelling Catheter Indwelling Catheter - Exam GENERAL: The patient is alert and oriented x3, not in any acute distress. Well developed, well nourished. HEENT: Pupils are round and equally reacting to light. EOMI. No scleral icterus. No conjunctival pallor. Normocephalic, atraumatic. No pharyngeal erythema. No thyromegaly. CARDIOVASCULAR: S1 and S2 present. No murmurs, rubs, or gallops. PULMONARY: Chest is clear to auscultation, no wheezing , no crackles. ABDOMEN: Soft, nontender, nondistended, normoactive bowel sounds. No palpable organomegaly. MUSCULOSKELETAL: No joint swelling or deformity. EXTREMITIES: No cyanosis, clubbing, or pedal edema. NEUROLOGICAL: Gross neurological examination did not reveal any focal deficits. SKIN: No rashes. no petechiae. - Labs CBC & Chem 7: 05/22/23 02:27 05/22/23 02:27 Labs: Abnormal Lab Results - Last 24 Hours (Table) 05/21/23 05/22/23 Range/Units 18:01 09:55 APTT 34.4 H (22.0-30.0) sec Urine Appearance Slightly Cloudy H (Clear) Urine Protein 1+ H (Negative) Urine RBC 25 H (0-5) /hpf Urine WBC 23 H (0-5) /hpf Hyaline Casts 25 H (0-2) /lpf Urine Mucus Rare H (None) /hpf Microbiology - Last 24 Hours (Table) 05/20/23 18:01 Urine Culture - Final Urine,Voided Assessment and Plan Assessment: A. fib with RVR, present on admission Acute urinary tract infection Elevated troponin secondary to non-STEMI Left lower extremity peripheral artery disease Recent L SFA angioplasty on 10/2022 Coronary artery disease status post CABG on 11/2022 Chronic systolic heart failure with ejection fraction 35-40% Multiple sclerosis, history of 2. Breast cancer History of CVA Plan: Continue with ceftriaxone Follow-up urine culture and wound culture [facility] disease team on the case. Assistant Real Estate Manager following the patient as well Continue with amiodarone, small dose of metoprolol and Eliquis strategic accounts manager to check for Eliquis Labs and medication were reviewed.. Continue same treatment. Continue with symptomatic treatment. Resume home medication. Monitor labs and vitals. DVT and GI prophylaxis. Further recommendations as per clinical course of the patient DVT prophylaxis: Eliquis GI Prophylaxis: Pepcid PT/OT: Pending Prognosis is guarded
--- NOTE | 2023-05-23 10:44 | P.PN ---
Subjective Progress Note Date: 05/23/23 HISTORY OF PRESENT ILLNESS: This is a 77-year-old female with a past medical history significant for pe ripheral vascular disease, atrial fibrillation, breast cancer, coronary artery disease with previous CABG in 2020 and subsequent stenting, COPD, multiple sclerosis, ischemic cardiomyopathy, and CVA. Patient follows in the office with Dr. Adame. We have been asked to see the patient in consultation for chest pain and NSTEMI. She states she was on her way to wound clinic when she started having chest pain which would not improve with 2 nitros and then attempted to go to wound clinic however was redirected to the emergency department. Chest pain was somewhat more significant than the majority of her other types of chest pain. She has been noticing she has been feeling short of breath the last 2-3 weeks as well. In addition her right lower extremity wound is not healing well and is scheduled to see Dr. Tadeo with vascular surgery in the next few weeks. Her right lower extremity is cool to touch and does not have good feeling in it. She was placed on Cardizem drip however converted to normal sinus rhythm. Troponins 0.05, 0.5, 0.7. Currently denies any chest pain. She is unsure when she is in A. fib however usually does not have this prolonged episodes of chest pain. * Most recent echocardiogram obtained in October 2022 revealing ejection fraction 35-40%, mild pulmonary hypertension, moderate mitral regurgitation and mild tricuspid regurgitation [id number] pulmonic regurgitation and small pericardial effusion * Cardiac catheterization history: 12/04/[address] Montoya revealing extremely calcified right and left coronary system with severe triple vessel coronary artery disease. Intermediate to severe disease involving the SVG to LAD and a critical disease involving the LAD distal to the SVG anastomosis. Occluded BAUTISTA to OM/left circumflex. Patent SVG to RCA. Patient underwent successful stenting of the proximal left circumflex. 05/22 Patient is seen today in follow-up. Telemetry is sinus rhythm. Blood pressure 130/79, heart rate is in the 50s and 60s, pulse ox 90% on 3 L nasal cannula patient has been started on amiodarone 400 mg twice daily for rhythm control. Patient is also on heparin drip. Echocardiogram reveals EF of 40-45%, moderate concentric left hypertrophy, moderate mitral regurgitation. Patient states that breathing is better. She denies palpitations. No chest pain today. Patient is nonambulatory. 05/23 Yesterday, heparin drip was discontinued and patient started on eliquis and metoprolol was decreased 12.5 mg twice daily. Patient has been continued on amiodarone which will be a tapering dose outpatient. Telemetry is controlled rate. Patient complains of ST and chest pain that feels like indigestion. Both symptoms started this morning. PHYSICAL EXAM: VITAL SIGNS: Reviewed. GENERAL: Well-developed in no acute distress, chronically ill appearing HEENT: Head is normocephalic. Pupils are equal, round. Sclerae anicteric. Mucous membranes of the mouth are moist. Neck supple. No JVD or thyromegaly LUNGS: Respirations even and unlabored. Lungs essentially clear to auscultation bilaterally. HEART: Regular rate and rhythm. S1 and S2 heard. ABDOMEN: Soft. Nondistended. Nontender. EXTREMITIES: Normal range of motion. No clubbing or cyanosis. Necrosis noted to left toes with nonhealing incision, cool extremities. NEUROLOGIC: Awake and alert. Oriented x 3. ASSESSMENT: Chest pain, NSTEMI, appears mostly related to Afib with RVR Left lower extremity PAD Recent left SFA angioplasty of in-stent stenosis, October 2022 Coronary artery disease with previous four-vessel CABG in 2020 and recent stenting of proximal left circumflex on 12/04/2022 Paroxysmal atrial fibrillation Ischemic cardiomyopathy, EF 35-40%, now 40-45% COPD Multiple sclerosis History of breast cancer History of CVA Moderate mitral regurgitation Indigestion and sore throat- onset 05/23 PLAN: Patient with acute onset of chest pain however likely more related to A. fib with RVR and non-STEMI. Recent heart catheterization from November with multiple e tiologies of ischemia however majority of symptoms appear related to A. fib with RVR. We therefore will attempt rhythm control with amiodarone. Continue amiodarone 400 mg twice daily for 7 days, 200 mg twice daily for 7 days and then 200 mg daily Metoprolol to 12.5 mg Continue eliquis 5 mg twice daily No plan for cardiac catheterization at this time Obtain troponin and CXR Patient is cleared for discharge from cardiology and may follow-up in the office in one to [address] Adame. Nurse practitioner note has been reviewed, I agree with the documented findings and plan of care. Patient was seen and examined. Objective - Vital Signs Vital signs: Vital Signs Temp 97.3 F L 05/23/23 08:35 Pulse 69 05/23/23 08:35 Resp 16 05/23/23 08:35 BP 182/70 05/23/23 08:35 Pulse Ox 97 05/23/23 08:35 FiO2 Intake & Output 05/22/23 05/23/23 05/23/23 18:59 06:59 18:59 Intake Total 423.226 20 Output Total 500 100 Balance -76.774 -100 20 Intake: IV 10 20 Invasive Line 1 10 10 Invasive Line 2 10 Intake, IV Titration 55.226 Amount Heparin Sod,Pork in 0.45% 55.226 NaCl 25,000 unit In 0.45 % NaCl 1 250ml.bag @ 12 UNITS/KG/HR 4.545 mls/hr IV .Q24H [facility] Rx#: [id number] Oral 358 Output: Urine 500 100 Other: Voiding Method Indwelling Catheter Indwelling Catheter - Labs CBC & Chem 7: 05/22/23 02:27 05/22/23 02:27 Labs: Abnormal Lab Results - Last 24 Hours (Table) 05/21/23 05/22/23 Range/Units 18:01 09:55 APTT 34.4 H (22.0-30.0) sec Urine Appearance Slightly Cloudy H (Clear) Urine Protein 1+ H (Negative) Urine RBC 25 H (0-5) /hpf Urine WBC 23 H (0-5) /hpf Hyaline Casts 25 H (0-2) /lpf Urine Mucus Rare H (None) /hpf Microbiology - Last 24 Hours (Table) 05/20/23 18:01 Urine Culture - Final Urine,Voided
--- NOTE | 2023-05-23 13:17 | P.PN ---
Subjective Progress Note Date: 05/23/23 Principal diagnosis: Catheter associated urinary tract infection Patient is a 77-year-old female with a past medical history significant for atrial fibrillation coronary disease heart failure with CVA TIA hypertension hyperlipidemia in this patient also with history of peripheral arterial disease and recently did have a right first and second toe amputated, presenting to the ER for evaluation of chest pain shortness of breath also noticed to have a positive Jaime concerning for catheter associated UTI, the patient Tadeo catheter was seen yesterday On today's evaluation that is 05/23/2023, the patient remains to be afebrile, the patient is breathing comfortably on 3 L nasal cannula oxygen denies any shortness of breath, the patient denies any chest pain or cough, patient denies Abdominal pain and no nausea/vomiting or diarrhea Patient did have white count of 7.9 creatinine 0.70 as of yesterday Objective - Vital Signs Vital signs: Vital Signs Temp 97.3 F L 05/23/23 08:35 Pulse 61 05/23/23 11:57 Resp 18 05/23/23 11:57 BP 153/87 05/23/23 11:57 Pulse Ox 100 05/23/23 11:57 FiO2 Intake & Output 05/22/23 05/23/23 05/23/23 18:59 06:59 18:59 Intake Total 423.226 20 Output Total 500 100 Balance -76.774 -100 20 Intake: IV 10 20 Invasive Line 1 10 10 Invasive Line 2 10 Intake, IV Titration 55.226 Amount Heparin Sod,Pork in 0.45% 55.226 NaCl 25,000 unit In 0.45 % NaCl 1 250ml.bag @ 12 UNITS/KG/HR 4.545 mls/hr IV .Q24H [facility] Rx#: [id number] Oral 358 Output: Urine 500 100 Other: Voiding Method Indwelling Catheter Indwelling Catheter Indwelling Catheter - Exam GENERAL DESCRIPTION: An elderly female lying in bed in no distress RESPIRATORY SYSTEM: Unlabored breathing , clear to auscultation anteriorly HEART: S1 S2 regular rate and rhythm , ABDOMEN: Soft , no tenderness EXTREMITIES: Right foot amputation site wound is currently dressed - Labs CBC & Chem 7: 05/22/23 02:27 05/22/23 02:27 Labs: Abnormal Lab Results - Last 24 Hours (Table) 05/21/23 05/23/23 Range/Units 18:01 11:09 Troponin I 0.139 H* (0.000-0.034) ng/mL Urine Appearance Slightly Cloudy H (Clear) Urine Protein 1+ H (Negative) Urine RBC 25 H (0-5) /hpf Urine WBC 23 H (0-5) /hpf Hyaline Casts 25 H (0-2) /lpf Urine Mucus Rare H (None) /hpf Microbiology - Last 24 Hours (Table) 05/20/23 18:01 Urine Culture - Final Urine,Voided Assessment and Plan (1) UTI (urinary tract infection) Current Visit: Yes Status: Acute Code(s): N39.0 - URINARY TRACT INFECTION, SITE NOT SPECIFIED SNOMED Code(s): 90455232 Plan: 1patient with positive UA in this patient who did have a chronic indwelling Tadeo catheter last changed about 2 weeks ago did have some cloudy urine positive UA concerning for possible catheter associated UTI 2-patient did have a wound to the right first and second ablation site however overall wound base looks clean with no surrounding swelling redness or any drainage clinic suspicious low for infection at the right first and second amputation site 3-Tadeo catheter has been changed and urine culture currently pending 4-patient has shown clinical improvement and will continue with Rocephin and monitor clinical course closely Dictation was produced using [employer] dictation software. please excuse any grammatical, word or spelling errors. Time with Patient: Less than 30
[2023-05-23] MEDS: COLLAGENASE 250 UNIT/GM OINTMENT 30 GM TUBE TOPICAL SCH (14:24)
--- NOTE | 2023-05-23 17:11 | XR ---
EXAMINATION TYPE: XR chest 1V DATE OF EXAM: 05/23/2023 11:08 AM CLINICAL INDICATION:Female, 77 years old with history of chest pain, cough; PHH COMPARISON: 2V chest 05/20/2023 TECHNIQUE: XR chest 1V Frontal view of the chest. FINDINGS: Lungs/Pleura: New or increased small right pleural effusion with some layering along the horizontal f issure. There appears to be an edge projecting over the left lung apex, without distinct pleural line and there are pulmonary markings peripheral to this, favoring artifact over pneumothorax. Possible t race left pleural effusion. Background chronic lung changes likely related to COPD. Pulmonary vascularity: Stable mild vascular congestion. Heart/mediastinum: Stable cardiac mediastinal silhouette. Heart is mildly enlarged with coronary jessi rial calcifications and aortic calcifications noted. Stable left atrial occlusion device. Musculoskeletal: Mild diffuse degenerative changes. No clearly acute bony abnormality. Regional soft tissues show no acute abnormality. Other findings: Postsurgical changes with clips projected along the left side cardiomediastinal silho uette. Lines/Tubes: EKG leads overlie the chest. No indwelling lines are seen. IMPRESSION: 1. Mild cardiomegaly and mild pulmonary vascular congestion, similar to prior. 2. Small, increased right pleural effusion. 3. Probable artifact at the left lung apex. Attention on follow-up.
[2023-05-23] MEDS: ACETAMINOPHEN TAB 325 MG TAB PO PRN (19:51)
[2023-05-24] MEDS: SODIUM CHLORIDE 0.9% 1,000 ML IV SCH ×2 (06:17→18:42)
[2023-05-24] MEDS: IPRATROPIUM 0.5 MG/2.5 ML NEBU INHALATION SCH ×4 (08:20→21:34)
[2023-05-24] MEDS: SYMBICORT 80-4.5 MCG INHALER INHALATION SCH ×2 (08:20→21:34)
[2023-05-24] MEDS: METOPROLOL SUCCINATE (ER) 25 MG TAB.ER.24H PO SCH (09:06)
[2023-05-24] MEDS: FUROSEMIDE 20 MG TAB PO SCH (09:07)
[2023-05-24] MEDS: LETROZOLE 2.5 MG TAB PO SCH (09:07)
[2023-05-24] MEDS: ESCITALOPRAM 20 MG TAB PO SCH (09:07)
[2023-05-24] MEDS: AMIODARONE 200 MG TAB PO SCH ×2 (09:07→19:38)
[2023-05-24] MEDS: CLOPIDOGREL 75 MG TAB PO SCH (09:07)
[2023-05-24] MEDS: APIXABAN 5 MG TAB PO SCH ×2 (09:07→19:38)
[2023-05-24] MEDS: GABAPENTIN 300 MG CAP PO SCH ×3 (09:08→19:38)
[2023-05-24] MEDS: FAMOTIDINE 20 MG TAB PO SCH ×2 (09:11→19:38)
--- NOTE | 2023-05-24 09:53 | P.PN ---
Subjective This is a pleasant 77 years old female with multiple medical problems. Patient presents on 05/20 where chest pain was relieved by nitro. Patient is bothered by circular shear operator and found to have non-STEMI with elevated troponin and she was treated with heparin drip for 24 hours which is a stop today and switch to oral Eliquis. Patient states that before she could not afford Eliquis and she was getting samples from her circular shear operator. We will check the co-pay for Eliquis and case was discussed with trimming caser. Vascular surgeon also evaluated the patient for lower extremity peripheral artery disease. Patient was cleared for discharge by [facility] surgery team. She told me she has appointment with Dr. Mills on 06/04 she intends to follow up wit h. Patient herself she feels she can go home today. However circular shear operator change some of her medications and she will be monitored today. She was placed on tapered dose of amiodarone started 400 mg twice daily, small dose of metoprolol 12.5 mg as well as a blood thinner. Cardiology team following with the patient. Also patient with evidence of UTI and possible wound infection and currently the urine culture and wound culture are still pending. She remains on ceftriaxone. patient awake alert she looks comfortable, she denies chest pain. No dyspnea. No other new complaints. Patient states at home she is wheelchair bound and she is not walking a lot. 05/23/2023 Patient says that she feels fine. No chest pain. No leg pain. No other new complaint. She is afebrile and vitals stable. Her blood pressure slightly elevated this morning, circular shear operator on the case. Metoprolol dose was lowered to 12.5 physical bradycardia. Also she is kept on amiodarone taper upon discharge. Cardiovascular start her on eliquis which she was taking at home as samples from her circular shear operator. Currently her co-pay for Eliquis is $138 and she says she cannot afford that. She remains on ceftriaxone. Urine culture showing polymicrobial growth. I discussed the case todayv with vascular Surgery or the evaluated the patient and site of the case 05/24/2023 George Lees, looks comfortable No chest pain or dyspnea. No new complaint. She remains on ceftriaxone for UTI and Eliquis but patient says she cannot afford it at home. Objective - Vital Signs Vital signs: Vital Signs Temp 98.2 F 05/24/23 03:10 Pulse 65 05/24/23 08:31 Resp 20 05/24/23 03:10 BP 148/62 05/24/23 03:10 Pulse Ox 99 05/24/23 03:10 FiO2 Intake & Output 05/23/23 05/24/23 05/24/23 18:59 06:59 18:59 Intake Total 580 Output Total 100 Balance 480 Intake: IV 40 Invasive Line 1 20 Invasive Line 2 20 Oral 540 Output: Urine 100 Other: Voiding Method Indwelling Catheter Indwelling Catheter # Bowel Movements 1 1 - Exam GENERAL: The patient is alert and oriented x3, not in any acute distress. Well developed, well nourished. HEENT: Pupils are round and equally reacting to light. EOMI. No scleral icterus. No conjunctival pallor. Normocephalic, atraumatic. No pharyngeal erythema. No thyromegaly. CARDIOVASCULAR: S1 and S2 present. No murmurs, rubs, or gallops. PULMONARY: Chest is clear to auscultation, no wheezing , no crackles. ABDOMEN: Soft, nontender, nondistended, normoactive bowel sounds. No palpable o rganomegaly. MUSCULOSKELETAL: No joint swelling or deformity. EXTREMITIES: No cyanosis, clubbing, or pedal edema. NEUROLOGICAL: Gross neurological examination did not reveal any focal deficits. SKIN: No rashes. no petechiae. - Labs CBC & Chem 7: 05/22/23 02:27 05/22/23 02:27 Labs: Abnormal Lab Results - Last 24 Hours (Table) 05/23/23 Range/Units 11:09 Troponin I 0.139 H* (0.000-0.034) ng/mL Microbiology - Last 24 Hours (Table) 05/22/23 09:10 Gram Stain - Preliminary Foot - Right Wound Culture - Preliminary Gram Neg Bacilli 05/20/23 18:01 Urine Culture - Final Urine,Voided Assessment and Plan Assessment: A. fib with RVR, present on admission Acute urinary tract infection Elevated troponin secondary to non-STEMI Left lower extremity peripheral artery disease Recent L SFA angioplasty on 10/2022 Coronary artery disease status post CABG on 11/2022 Chronic systolic heart failure with ejection fraction 35-40% Multiple sclerosis, history of 2. Breast cancer History of CVA Plan: Continue with ceftriaxone Follow-up urine culture and wound culture Pictures disease team on the case. Acetylene Torch Solderer following the patient as well Continue with amiodarone, small dose of metoprolol and Eliquis manager event to check for Eliquis Labs and medication were reviewed.. Continue same treatment. Continue with symptomatic treatment. Resume home medication. Monitor labs and vitals. DVT and GI prophylaxis. Further recommendations as per clinical course of the patient DVT prophylaxis: Eliquis GI Prophylaxis: Pepcid PT/OT: Pending Prognosis is guarded
--- NOTE | 2023-05-24 12:59 | P.PN ---
Subjective HISTORY OF PRESENT ILLNESS: This is a 77-year-old female with a past medical history significant for peripheral vascular disease, atrial fibrillation, breast cancer, coronary artery disease with previous CABG in 2020 and subsequent stenting, COPD, multiple sclerosis, ischemic cardiomyopathy, and CVA. Patient follows in the office with Dr. Adame. We have been asked to see the patient in consultation for chest pain and NSTEMI. She states she was on her way to wound clinic when she started having chest pain which would not improve with 2 nitros and then attempted to go to wound clinic however was redirected to the emergency department. Chest pain was somewhat more significant than the majority of her other types of chest pain. She has been noticing she has been feeling short of breath the last 2-3 weeks as well. In addition her right lower extremity wound is not healing well and is scheduled to see Dr. Tadeo with vascular surgery in the next few weeks. Her right lower extremity is cool to touch and does not have good feeling in it. She was placed on Cardizem drip however converted to normal sinus rhythm. Troponins 0.05, 0.5, 0.7. Currently denies any chest pain. She is unsure when she is in A. fib however usually does not have this prolonged episodes of chest pain. * Most recent echocardiogram obtained in October 2022 revealing ejection fraction 35-40%, mild pulmonary hypertension, moderate mitral regurgitation and mild tricuspid regurgitation [id number] pulmonic regurgitation and small pericardial effusion * Cardiac catheterization history: 12/04/[address] Montoya revealing extremely calcified right and left coronary system with severe triple vessel coronary artery disease. Intermediate to severe disease involving the SVG to LAD and a critical disease involving the LAD distal to the SVG anastomosis. Occluded BAUTISTA to OM/left circumflex. Patent SVG to RCA. Patient underwent successful stenting of the proximal left circumflex. 05/22 Patient is seen today in follow-up. Telemetry is sinus rhythm. Blood pressure 130/79, heart rate is in the 50s and 60s, pulse ox 90% on 3 L nasal cannula patient has been started on amiodarone 400 mg twice daily for rhythm control. Patient is also on heparin drip. Echocardiogram reveals EF of 40-45%, moderate concentric left hypertrophy, moderate mitral regurgitation. Patient states that breathing is better. She denies palpitations. No chest pain today. Patient is nonambulatory. 05/23 Yesterday, heparin drip was discontinued and patient started on eliquis and metoprolol was decreased 12.5 mg twice daily. Patient has been continued on amiodarone which will be a tapering dose outpatient. Telemetry is controlled rate. Patient complains of ST and chest pain that feels like indigestion. Both symptoms started this morning. 05/24 Patient seen and examined. Patient remains in sinus rhythm. She states she had an episode of feeling nauseous this morning however improved. Troponin down to 0.1. Denies any chest pain or pressure. No significant bradycardia and heart rates normally more in the 60 range. PHYSICAL EXAM: VITAL SIGNS: Reviewed. GENERAL: Well-developed in no acute distress, chronically ill appearing HEENT: Head is normocephalic. Pupils are equal, round. Sclerae anicteric. Mucous membranes of the mouth are moist. Neck supple. No JVD or thyromegaly LUNGS: Respirations even and unlabored. Lungs essentially clear to auscultation bilaterally. HEART: Regular rate and rhythm. S1 and S2 heard. ABDOMEN: Soft. Nondistended. Nontender. EXTREMITIES: Normal range of motion. No clubbing or cyanosis. Necrosis noted to left toes with nonhealing incision, cool extremities. NEUROLOGIC: Awake and alert. Oriented x 3. ASSESSMENT: Chest pain, NSTEMI, appears mostly related to Afib with RVR Left lower extremity PAD Recent left SFA angioplasty of in-stent stenosis, October 2022 Coronary artery disease with previous four-vessel CABG in 2020 and recent stenting of proximal left circumflex on 12/04/2022 Paroxysmal atrial fibrillation Ischemic cardiomyopathy, EF 35-40%, now 40-45% COPD Multiple sclerosis History of breast cancer History of CVA Moderate mitral regurgitation Indigestion and sore throat- onset 05/23 PLAN: Patient with acute onset of chest pain however likely more related to A. fib with RVR and non-STEMI. Recent heart catheterization from November with multiple etiologies of ischemia however majority of symptoms appear related to A. fib with RVR. We therefore will attempt rhythm control with amiodarone. Continue amiodarone 400 mg twice daily for 7 days, 200 mg twice daily for 7 days and then 200 mg daily Metoprolol to 12.5 mg Continue eliquis 5 mg twice daily. If unable to afford this we will transition patient to Coumadin If continues to have and a type symptoms may consider stress test in the office. Patient is cleared for discharge from cardiology and may follow-up in the office in one to [address] Adame. Objective - Vital Signs Vital signs: Vital Signs Temp 97.9 F 05/24/23 07:41 Pulse 72 05/24/23 12:06 Resp 16 05/24/23 07:41 BP 150/70 05/24/23 07:41 Pulse Ox 97 05/24/23 07:41 FiO2 Intake & Output 05/23/23 05/24/23 05/24/23 18:59 06:59 18:59 Intake Total 580 320 Output Total 100 Balance 480 320 Intake: IV 40 Invasive Line 1 20 Invasive Line 2 20 Oral 540 320 Output: Urine 100 Other: Voiding Method Indwelling Catheter Indwelling Catheter Indwelling Catheter # Bowel Movements 1 1 - Labs CBC & Chem 7: 05/22/23 02:27 05/22/23 02:27 Labs: Microbiology - Last 24 Hours (Table) 05/22/23 09:10 Gram Stain - Preliminary Foot - Right Wound Culture - Preliminary Gram Neg Bacilli
[2023-05-24] MEDS: COLLAGENASE 250 UNIT/GM OINTMENT 30 GM TUBE TOPICAL SCH (15:00)
--- NOTE | 2023-05-24 15:24 | P.PN ---
Subjective Progress Note Date: 05/24/23 Principal diagnosis: Catheter associated urinary tract infection Patient is a 77-year-old female with a past medical history significant for atrial fibrillation coronary disease heart failure with CVA TIA hypertension hyperlipidemia in this patient also with history of peripheral arterial disease and recently did have a right first and second toe amputated, presenting to the ER for evaluation of chest pain shortness of breath also noticed to have a positive Jaime concerning for catheter associated UTI, the patient Tadeo catheter was seen yesterday On today's evaluation that is 05/24/2023, the patient denies any fever or chills, the patient is breathing comfortably on 3 L nasal cannula supplemental oxygen, the patient denies any chest pain or cough, patient denies nausea/vomiting or diarrhea and no abdominal pain, did have some mild pain to the right foot wound area Patient did have white count of 7.9 creatinine 0.70 as of 05/22/2023, urine culture negative patient did have cultures obtained from the right foot wound which is growing gram-negative bacilli Objective - Vital Signs Vital signs: Vital Signs Temp 97.9 F 05/24/23 07:41 Pulse 72 05/24/23 12:06 Resp 18 05/24/23 12:00 BP 134/67 05/24/23 12:00 Pulse Ox 96 05/24/23 12:00 FiO2 Intake & Output 05/23/23 05/24/23 05/24/23 18:59 06:59 18:59 Intake Total 580 320 Output Total 100 Balance 480 320 Intake: IV 40 Invasive Line 1 20 Invasive Line 2 20 Oral 540 320 Output: Urine 100 Other: Voiding Method Indwelling Catheter Indwelling Catheter Indwelling Catheter # Bowel Movements 1 1 - Exam GENERAL DESCRIPTION: An elderly female lying in bed in no distress RESPIRATORY SYSTEM: Unlabored breathing , clear to auscultation anteriorly HEART: S1 S2 regular rate and rhythm , ABDOMEN: Soft , no tenderness EXTREMITIES: Right foot amputation site wound with significant maceration and the foot is cold - Labs CBC & Chem 7: 05/22/23 02:27 05/22/23 02:27 Labs: Microbiology - Last 24 Hours (Table) 05/22/23 09:10 Gram Stain - Preliminary Foot - Right Wound Culture - Preliminary Gram Neg Bacilli Assessment and Plan (1) UTI (urinary tract infection) Current Visit: Yes Status: Acute Code(s): N39.0 - URINARY TRACT INFECTION, SITE NOT SPECIFIED SNOMED Code(s): 19905072 Plan: 1patient with positive UA in this patient who did have a chronic indwelling Tadeo catheter last changed about 2 weeks ago did have some cloudy urine positive UA concerning for possible catheter associated UTI 2-patient did have a wound to the right first and second ablation site however overall wound base looks clean with no surrounding swelling redness or any drain age clinic suspicious low for infection at the right first and second amputation site 3-Tadeo catheter has been changed and urine culture has been negative so far 4-patient did have cultures obtained from the right foot wound area for not cleared reason and is no evidence of any cellulitis patient has significant maceration is installed been told not to use' santyl, we will apply under Aquacel silver dressing continue with Rocephin cultures will be followed Dictation was produced using [employer] dictation software. please excuse any grammatical, word or spelling errors. she Time with Patient: Less than 30
[2023-05-25] MEDS: SODIUM CHLORIDE 0.9% 1,000 ML IV SCH (05:39)
[2023-05-25] MEDS: IPRATROPIUM 0.5 MG/2.5 ML NEBU INHALATION SCH ×3 (08:03→15:34)
[2023-05-25] MEDS: SYMBICORT 80-4.5 MCG INHALER INHALATION SCH (08:03)
[2023-05-25 09:51] VITALS: TEMP 97.9
[2023-05-25] MEDS: CLOPIDOGREL 75 MG TAB PO SCH (09:54)
[2023-05-25] MEDS: FUROSEMIDE 20 MG TAB PO SCH (09:54)
[2023-05-25] MEDS: METOPROLOL SUCCINATE (ER) 25 MG TAB.ER.24H PO SCH (09:54)
[2023-05-25] MEDS: ESCITALOPRAM 20 MG TAB PO SCH (09:54)
[2023-05-25] MEDS: GABAPENTIN 300 MG CAP PO SCH ×2 (09:54→17:26)
[2023-05-25] MEDS: FAMOTIDINE 20 MG TAB PO SCH (09:54)
[2023-05-25] MEDS: LETROZOLE 2.5 MG TAB PO SCH (09:55)
[2023-05-25] MEDS: AMIODARONE 200 MG TAB PO SCH (09:55)
[2023-05-25] MEDS: APIXABAN 5 MG TAB PO SCH (09:55)
--- NOTE | 2023-05-25 11:05 | P.PN ---
Subjective HISTORY OF PRESENT ILLNESS: This is a 77-year-old female with a past medical history significant for peripheral vascular disease, atrial fibrillation, breast cancer, coronary artery disease with previous CABG in 2020 and subsequent stenting, COPD, multiple sclerosis, ischemic cardiomyopathy, and CVA. Patient follows in the office with Dr. Adame. We have been asked to see the patient in consultation for chest pain and NSTEMI. She states she was on her way to wound clinic when she started having chest pain which would not improve with 2 nitros and then attempted to go to wound clinic however was redirected to the emergency department. Chest pain was somewhat more significant than the majority of her other types of chest pain. She has been noticing she has been feeling short of breath the last 2-3 weeks as well. In addition her right lower extremity wound is not healing well and is scheduled to see Dr. Tadeo with vascular surgery in the next few weeks. Her right lower extremity is cool to touch and does not have good feeling in it. She was placed on Cardizem drip however converted to normal sinus rhythm. Troponins 0.05, 0.5, 0.7. Currently denies any chest pain. She is unsure when she is in A. fib however usually does not have this prolonged episodes of chest pain. * Most recent echocardiogram obtained in October 2022 revealing ejection fraction 35-40%, mild pulmonary hypertension, moderate mitral regurgitation and mild tricuspid regurgitation [id number] pulmonic regurgitation and small pe ricardial effusion * Cardiac catheterization history: 12/04/[address] Montoya revealing extremely calcified right and left coronary system with severe triple vessel coronary artery disease. Intermediate to severe disease involving the SVG to LAD and a critical disease involving the LAD distal to the SVG anastomosis. Occluded BAUTISTA to OM/left circumflex. Patent SVG to RCA. Patient underwent successful stenting of the proximal left circumflex. 05/22 Patient is seen today in follow-up. Telemetry is sinus rhythm. Blood pressure 130/79, heart rate is in the 50s and 60s, pulse ox 90% on 3 L nasal cannula patient has been started on amiodarone 400 mg twice daily for rhythm control. Patient is also on heparin drip. Echocardiogram reveals EF of 40-45%, moderate concentric left hypertrophy, moderate mitral regurgitation. Patient states that breathing is better. She denies palpitations. No chest pain today. Patient is nonambulatory. 05/23 Yesterday, heparin drip was discontinued and patient started on eliquis and metoprolol was decreased 12.5 mg twice daily. Patient has been continued on amiodarone which will be a tapering dose outpatient. Telemetry is controlled rate. Patient complains of ST and chest pain that feels like indigestion. Both symptoms started this morning. 05/24 Patient seen and examined. Patient remains in sinus rhythm. She states she had an episode of feeling nauseous this morning however improved. Troponin down to 0.1. Denies any chest pain or pressure. No significant bradycardia and heart rates normally more in the 60 range. 05/25/2023 Patient examined this morning at the bedside. Patient currently denies chest pain or pressure. She denies shortness of breath. Telemetry reveals atrial fibrillation with controlled ventricular rates. Patient is currently on Eliquis. However she states that she cannot afford this and has been receiving samples from the office. PHYSICAL EXAM: VITAL SIGNS: Reviewed. GENERAL: Well-developed in no acute distress. NECK: Supple. No JVD or thyromegaly LUNGS: Respirations even and unlabored. Lungs essentially clear to auscultation bilaterally. HEART: Irregular rate and rhythm. S1 and S2 heard. EXTREMITIES: Normal range of motion. No clubbing or cyanosis. Peripheral pulses intact. No lower extremity edema ASSESSMENT: Chest pain, NSTEMI, appears mostly related to Afib with RVR Left lower extremity PAD Recent left SFA angioplasty of in-stent stenosis, October 2022 Coronary artery disease with previous four-vessel CABG in 2020 and recent stenting of proximal left circumflex on 12/04/2022 Paroxysmal atrial fibrillation Ischemic cardiomyopathy, EF 35-40%, now 40-45% COPD Multiple sclerosis History of breast cancer History of CVA Moderate mitral regurgitation Indigestion and sore throat- onset 05/23 PLAN: Discontinue Eliquis Begin Coumadin with goal INR 23 Continue additional cardiac medications Continue amiodarone 400 mg twice a day. Decrease dosage to 200 mg twice a day after one week. Continue telemetry monitoring Patient is currently stable from a cardiac perspective Nurse practitioner note has been reviewed by physician. Signing provider agrees with the documented findings, assessment, and plan of care. Objective - Vital Signs Vital signs: Vital Signs Temp 98.2 F 05/25/23 02:44 Pulse 64 05/25/23 08:24 Resp 18 05/25/23 02:44 BP 144/66 05/25/23 02:44 Pulse Ox 97 05/25/23 08:07 FiO2 Intake & Output 05/24/23 05/25/23 05/25/23 18:59 06:59 18:59 Intake Total 320 Output Total 450 400 Balance -130 -400 Intake: Oral 320 Output: Urine 450 400 Other: Voiding Method Indwelling Catheter Indwelling Catheter # Bowel Movements 1 - Labs CBC & Chem 7: 05/22/23 02:27 05/22/23 02:27 Labs: Microbiology - Last 24 Hours (Table) 05/22/23 11:10 Anaerobic Culture - Preliminary Foot - Right 05/22/23 09:10 Gram Stain - Final Foot - Right Wound Culture - Final Klebsiella oxytoca
[2023-05-25] MEDS: HYDROcodone/APAP 5-325MG 1 EACH TAB PO PRN (12:46)
[2023-05-25 15:12] VITALS: BMI 24.2
[2023-05-25 17:42] VITALS: BP 145/75; PULSE 58; RESP 16
[2023-05-25] MEDS ORDERED: WARFARIN 5 MG TAB PO ONE (18:00)
--- NOTE | 2023-05-26 05:45 | P.DS ---
Providers Date of admission: 05/20/23 19:06 Attending physician: Quintin Elizondo Consults: 05/20/23 19:02 Consult Physician Routine Consulting Provider: Mitchell Marshall Consult Reason/Comments: [email or web address] Do you want consulting provider notified?: Yes 05/20/23 20:09 Consult Physician Urgent Consulting Provider: Dell Carcamo Consult Reason/Comments: uti Do you want consulting provider notified?: Yes Primary care physician: Sydnie Reynolds Hospital Course: Diagnoses: A. fib with RVR, present on admission Acute urinary tract infection Elevated troponin secondary to non-STEMI Left lower extremity peripheral artery disease Recent L SFA angioplasty on 10/2022 Coronary artery disease status post CABG on 11/2022 Chronic systolic heart failure with ejection fraction 35-40% history of Multiple sclerosis history of Breast cancer History of CVA Hospital course: This is a pleasant 77 years old female with multiple medical problems as above. Patient presents on 05/20 whith chest pain was relieved by nitro. Patient is evaluated by warehouse pricing and inventory clerk and found to have non-STEMI with elevated troponin and she was treated with heparin drip for 24 hours which is a stopped now and switch to oral Eliquis. Patient states that before she could not afford Eliquis as the copay is about $138 and she was getting samples from her warehouse pricing and inventory clerk . We checked with cardiology team and patient was switched to Coumadin upon discharge and patient is agreeable with plan for follow-up with INR as an outpatient. Also patient On amiodarone and low-dose metoprolol 12.5 mg upon discharge Vascular surgeon also evaluated the patient for lower extremity peripheral artery disease. Patient was cleared for discharge by their vascular surgery team. She told me she has appointment with Dr. Mills on 06/04 she intends to f ollow up with. Also patient with evidence of UTI and possible wound infection and currently the urine culture: Polymicrobial organisms and wound culture: Klebsiella. She remains on ceftriaxone.And upon discharge switched to Ceftin 10 days by ID team patient awake alert she looks comfortable, she denies chest pain. No dyspnea. No other new complaints. Patient states at home she is wheelchair bound and she is not walking a lot.She agrees to go home. She is wheelchair and bed-bound. Also patient has a Tadeo catheter that she intends to keep upon discharge and patient will follow up with her PCP Patient was cleared for discharge by all consultants including warehouse pricing and inventory clerk, vascular surgery and infectious disease teams Problems and management plan were discussed with the patient and he verbalized understanding and acceptance Patient was found stable and can be discharged home in guarded prognosis however he needs follow-up as an outpatient. Patient was instructed to follow up with PCP Dr. Reynolds within one week and patient agrees on 05/27 Patient was instructed to follow up with warehouse pricing and inventory clerk Dr. Winters within 7-10 days and she has appointment on 06/05. Also patient instructed to go to Dr. Winters office in 2 days to check her INR and she agrees. She was discharged on Coumadin 5 mg and she will adjust the dose with her warehouse pricing and inventory clerk and primary doctor accordingly. Risks, benefits and alternatives are explained for the patient extensively and she verbalized understanding and acceptance. Patient also was instructed to follow up with Dr. Tadeo and she already has appointment with her on 06/03 and she agrees. Physical exam Gen: patient is a AAOx3, no distress CVS: S1-S2, RRR, no murmur Lungs: B/L CTA, no wheezing Abdomen: soft, no distention, no tenderness, positive bowel sounds -Extremity: no leg edema or induration. Wound is healing Time spent more than 35 minutes Patient Condition at Discharge: Good Plan - Discharge Summary Discharge Rx Participant: No New Discharge Prescriptions: New Amiodarone [Cordarone] 200 mg PO DIRECTED 30 Days #90 tab Warfarin [Coumadin] 5 mg PO DAILY@1800 30 Days #15 tab cefUROXime axetiL [Ceftin] 500 mg PO BID 10 Days #20 tab Famotidine [Pepcid] 20 mg PO DAILY #30 tab Metoprolol Succinate (ER) [Toprol XL] 12.5 mg PO DAILY #15 tab Sertraline [Zoloft] 25 mg PO DAILY #30 tablet Continue Fluticasone/Umeclidin/Vilanter [Trelegy Ellipta 100-62.5-25] 1 puff INHALATION RT-DAILY PRN PRN Reason: Shortness Of Breath Gabapentin [Neurontin] 300 mg PO TID Albuterol Nebulized [Ventolin Nebulized] 2.5 mg INHALATION RT-QID PRN PRN Reason: Shortness Of Breath HYDROcodone/APAP 5-325MG [[place] 5-325] 1 tab PO DAILY PRN PRN Reason: Pain Furosemide [Lasix] 20 mg PO DAILY Nitroglycerin Sl Tabs [Nitrostat] 0.4 mg SL Q5M PRN PRN Reason: Chest Pain Albuterol Sulfate [Ventolin HFA] 1 puff INHALATION RT-Q6H PRN PRN Reason: Shortness Of Breath Letrozole 2.5 mg PO QAM Clopidogrel [Plavix] 75 mg PO QAM Discontinued Escitalopram [Lexapro] 20 mg PO QAM Apixaban [Eliquis] 2.5 mg PO BID #60 tab Metoprolol Tartrate [Lopressor] 50 mg PO DAILY Discharge Medication List Fluticasone/Umeclidin/Vilanter [Trelegy Ellipta 100-62.5-25] 1 puff INHALATION RT-DAILY PRN 11/01/21 [History] Nitroglycerin Sl Tabs [Nitrostat] 0.4 mg SL Q5M PRN 04/16/22 [History] Albuterol Sulfate [Ventolin HFA] 1 puff INHALATION RT-Q6H PRN 09/16/22 [History] Gabapentin [Neurontin] 300 mg PO TID 09/16/22 [History] Albuterol Nebulized [Ventolin Nebulized] 2.5 mg INHALATION RT-QID PRN 11/07/22 [History] Clopidogrel [Plavix] 75 mg PO QAM 01/13/23 [History] Letrozole 2.5 mg PO QAM 01/13/23 [History] HYDROcodone/APAP 5-325MG [[place] 5-325] 1 tab PO DAILY PRN 02/16/23 [History] Furosemide [Lasix] 20 mg PO DAILY 05/20/23 [History] Amiodarone [Cordarone] 200 mg PO DIRECTED 30 Days #90 tab 05/25/23 [Rx] Famotidine [Pepcid] 20 mg PO DAILY #30 tab 05/25/23 [Rx] Metoprolol Succinate (ER) [Toprol XL] 12.5 mg PO DAILY #15 tab 05/25/23 [Rx] Sertraline [Zoloft] 25 mg PO DAILY #30 tablet 05/25/23 [Rx] Warfarin [Coumadin] 5 mg PO DAILY@1800 30 Days #15 tab 05/25/23 [Rx] cefUROXime axetiL [Ceftin] 500 mg PO BID 10 Days #20 tab 05/25/23 [Rx] Follow up Appointment(s)/Referral(s): Kari Winters MD [STAFF PHYSICIAN] - 06/05/23 9:30 am Tiesha Tadeo DO [STAFF PHYSICIAN] - 06/03/23 9:45 am Sydnie Reynolds MD [Primary Care Provider] - 05/27/23 11:20 am Patient Instructions/Handouts: A-fib (Atrial Fibrillation) (DC), Urinary Tract Infection in Women (DC) Activity/Diet/Wound Care/Special Instructions: heart healthy diet activity is restricted till you see your doctor please go to Dr. Winters office in 2 days, to check your INR level (while you are using coudamin blood thinner )... your goal INR is (2.0-3.0) if your INR is more than 3.0 then stop taking the coumadin and contact your doctor right away please (risk of bleeding) Discharge Disposition: HOME WITH HOME HEALTH SERVICES
--- NOTE | 2023-05-31 14:48 | P.PN ---
Subjective Progress Note Date: 05/25/23 Principal diagnosis: Catheter associated urinary tract infection Patient is a 77-year-old female with a past medical history significant for atrial fibrillation coronary disease heart failure with CVA TIA hypertension hyperlipidemia in this patient also with history of peripheral arterial disease and recently did have a right first and second toe amputated, presenting to the ER for evaluation of chest pain shortness of breath also noticed to have a positive Jaime concerning for catheter associated UTI, the patient Tadeo catheter was seen yesterday On today's evaluation that is 05/25/2023, the patient continues to be afebrile , the patient is breathing comfortably on 3 L nasal cannula oxygen and denies any shortness of breath, the patient denies any chest pain or cough, patient denies abdominal pain and no nausea/vomiting or diarrhea , the patient did have have some mild pain to the right foot wound area Patient did have white count of 7.9 creatinine 0.70 as of 05/22/2023, urine culture negative patient did have cultures obtained from the right foot wound which is growing Klebsiella sensitive to Rocephin Objective - Vital Signs Vital signs: Vital Signs Temp 97.9 F 05/25/23 08:00 Pulse 70 05/25/23 11:35 Resp 18 05/25/23 08:00 BP 131/77 05/25/23 08:00 Pulse Ox 97 05/25/23 08:07 FiO2 Intake & Output 05/24/23 05/25/23 05/25/23 18:59 06:59 18:59 Intake Total 320 250 Output Total 450 400 Balance -130 -400 250 Intake: IV 10 Invasive Line 2 10 Oral 320 240 Output: Urine 450 400 Other: Voiding Method Indwelling Catheter Indwelling Catheter Indwelling Catheter # Bowel Movements 1 - Exam GENERAL DESCRIPTION: An elderly female lying in bed in no distress RESPIRATORY SYSTEM: Unlabored breathing , clear to auscultation anteriorly HEART: S1 S2 regular rate and rhythm , ABDOMEN: Soft , no tenderness EXTREMITIES: Right foot amputation site wound is currently dressed no drainage on the dressing - Labs CBC & Chem 7: 05/22/23 02:27 05/22/23 02:27 Labs: Microbiology - Last 24 Hours (Table) 05/22/23 11:10 Anaerobic Culture - Preliminary Foot - Right 05/22/23 09:10 Gram Stain - Final Foot - Right Wound Culture - Final Klebsiella oxytoca Assessment and Plan (1) UTI (urinary tract infection) Status: Acute Code(s): N39.0 - URINARY TRACT INFECTION, SITE NOT SPECIFIED SNOMED Code(s): 24257026 Plan: 1patient with positive UA in this patient who did have a chronic indwelling Tadeo catheter last changed about 2 weeks ago did have some cloudy urine positive UA concerning for possible catheter associated UTI 2-patient did have a wound to the right first and second ablation site however overall wound base looks clean with no surrounding swelling redness or any drainage clinic suspicious low for infection at the right first and second amputation site 3-Tadeo catheter has been changed and urine culture has been negative so far 4-local wound care with Aquacel silver dressing changed every 48 hour 5-patient did have cultures obtained from the right foot wound area which is growing Klebsiella patient is covered with a Rocephin , patient will benefit from short course of oral Ceftin on discharge Dictation was produced using [employer] dictation software. please excuse any grammatical, word or spelling errors. she Time with Patient: Less than 30
== END 2023-05-25 18:06 | disposition home health service (06) | DRG 592 ==
LOC: EC 14:17 → 3SCARD 19:06
PROVIDERS: ADMIT Hospitalist; ATTEND Hospitalist
PROC: 3E0F7SF Introduction of Other Gas into Respiratory Tract, Via Natural or Artificial Opening (ICD-10-PCS; principal; 2023-05-20)
DX: L97.514 Non-pressure chronic ulcer of other part of right foot with necrosis of bone (principal); I21.4 Non-ST elevation (NSTEMI) myocardial infarction; N39.0 Urinary tract infection, site not specified; T83.518A Infection and inflammatory reaction due to other urinary catheter, initial encounter; I25.810 Atherosclerosis of coronary artery bypass graft(s) without angina pectoris; J44.1 Chronic obstructive pulmonary disease with (acute) exacerbation; I50.22 Chronic systolic (congestive) heart failure; I11.0 Hypertensive heart disease with heart failure; Y84.6 Urinary catheterization as the cause of abnormal reaction of the patient, or of later complication, without mention of misadventure at the time of the procedure; I27.20 Pulmonary hypertension, unspecified; I50.9 Heart failure, unspecified; I48.0 Paroxysmal atrial fibrillation; G35 Multiple sclerosis; J44.9 Chronic obstructive pulmonary disease, unspecified; I70.235 Atherosclerosis of native arteries of right leg with ulceration of other part of foot; I70.245 Atherosclerosis of native arteries of left leg with ulceration of other part of foot; F17.210 Nicotine dependence, cigarettes, uncomplicated; G62.9 Polyneuropathy, unspecified; Z79.01 Long term (current) use of anticoagulants; I08.1 Rheumatic disorders of both mitral and tricuspid valves; Z79.02 Long term (current) use of antithrombotics/antiplatelets; Z86.73 Personal history of transient ischemic attack (TIA), and cerebral infarction without residual deficits; Z90.11 Acquired absence of right breast and nipple; Z85.3 Personal history of malignant neoplasm of breast; E78.5 Hyperlipidemia, unspecified; I25.5 Ischemic cardiomyopathy; L97.524 Non-pressure chronic ulcer of other part of left foot with necrosis of bone; Z74.01 Bed confinement status; Z79.899 Other long term (current) drug therapy; Z99.3 Dependence on wheelchair
CPT/HCPCS: 36415; 71045; 71046; 80053; 81001; 83735; 84100; 84484; 85025; 85610; 85730; 87070; 87075; 87077; 87086; 87186; 87205; 93005; 93306; 94640; 94760; 96365; 96366; 96368; 96375; 99291

== ENCOUNTER 2023-06-04 10:52 | Day surgery (SDC) | payer MEDICARE ==
[~2023-06-04 10:52] MED LIST changes: -ALPRAZolam 0.25 MG TAB PO PRN; -ALPRAZolam 0.5 MG TAB PO PRN; -ASPIRIN 325 MG TAB PO PRN; -HEPARIN SODIUM,PORCINE 10,000 UNIT in SODIUM CHLORIDE 0.9% 1,000 ML IRRIGATION PRN; -HEPARIN SODIUM,PORCINE 2,500 UNIT in SODIUM CHLORIDE 0.9% 250 ML IRRIGATION PRN; +HYDROmorphone 0.5 MG/0.5 ML SYRINGE IVP PRN; +LACTATED RINGERS 1,000 ML IV SCH; +ONDANSETRON 4 MG/2 ML VIAL IVP ONE; -SODIUM CHLORIDE 0.9% 1,000 ML in EMPTY BAG 1 BAG IV ONE; -ZOLPIDEM 5 MG TAB PO PRN
[2023-06-04] MEDS ORDERED: PROPOFOL 10 MG/ML 20 ML VIAL IV ONE (13:47)
[2023-06-04] MEDS ORDERED: fentaNYL (PF) 50 MCG/ML 2 ML AMP ONE (13:47)
[2023-06-04] MEDS ORDERED: MIDAZOLAM 2 MG/2 ML VIAL ONE (13:47)
[2023-06-04] MEDS ORDERED: LIDOCAINE 2% INJ 20 MG/ML SQ ONE (14:00)
[2023-06-04 14:51] VITALS: TEMP 97.2
--- NOTE | 2023-06-04 14:53 | P.OP ---
Date of Procedure: 06/04/23 Description of Procedure: SURGEON: Tiesha Tadeo DO SALES ANALYST: None PREOPERATIVE DIAGNOSIS: Nonhealing right lower extremity first toe amputation site POSTOPERATIVE DIAGNOSIS: Same OPERATION: Revision of first toe ray amputation site Sharp excisional debridement 7 x 1.5 x 0.8 cm the subcutaneous tissue Placement of skin substitute, appendectomy 6 4 x 4.5 cm ANESTHESIA: Sedation ESTIMATED BLOOD LOSS: Less than 5 mL SPECIMENS REMOVED: Portion of First metatarsal for disposal COMPLICATIONS: None OPERATIVE FINDINGS: Patient is a 77-year-old female with significant past medical history including peripheral arterial disease after revascularization who had a first toe amputation now presents with evidence of partial healing of the medial portion of the wound however there is some contraction in the bone is exposed therefore she is here today for revision of this area. DESCRIPTION OF PROCEDURE: This patient was brought to the operating room, and given local and IV sedation. The operative foot was prepped and draped in sterile manner. The medial portion of the foot was anesthetized and incision was made along the metatarsal. The cautery was used and the tissue was dissected free from the metatarsal itself. The metatarsal was transected with bone cutters. The bone was removed. There were minimal bleeding points which were electrocoagulated and some of them were suture ligated. Base of the wound looked clean, and the wound was copiously irrigated with saline. The wound itself at the lateral portion had appearance of fibrinous looking tissue with mild exudate. Curet was used for sharp excisional debridement of this area. There was a bridge of tissue that appeared to be healing and between the metatarsal amputation site and this portion. Due to all this, a skin substitute epifix 4 x 4.5 was placed. The skin was then reapproximated with interrupted sutures of 3-0 nylon. Dressings were placed. The patient transferred to recovery The patient tolerated the procedure well. Plan - Discharge Summary Discharge Rx Participant: No New Discharge Prescriptions: No Action Fluticasone/Umeclidin/Vilanter [Trelegy Ellipta 100-62.5-25] 1 puff INHALATION RT-DAILY PRN PRN Reason: Shortness Of Breath Gabapentin [Neurontin] 300 mg PO TID Albuterol Nebulized [Ventolin Nebulized] 2.5 mg INHALATION RT-QID PRN PRN Reason: Shortness Of Breath HYDROcodone/APAP 5-325MG [[place] 5-325] 1 tab PO DAILY PRN PRN Reason: Pain Furosemide [Lasix] 20 mg PO QAM cefUROXime axetiL [Ceftin] 500 mg PO BID 10 Days #20 tab Sertraline [Zoloft] 25 mg PO QAM Warfarin [Coumadin] 2.5 mg PO DAILY@1800 Nitroglycerin Sl Tabs [Nitrostat] 0.4 mg SL Q5M PRN PRN Reason: Chest Pain Albuterol Sulfate [Ventolin HFA] 1 puff INHALATION RT-Q6H PRN PRN Reason: Shortness Of Breath Letrozole 2.5 mg PO QAM Clopidogrel [Plavix] 75 mg PO QAM Amiodarone [Cordarone] 400 mg PO BID Famotidine [Pepcid] 20 mg PO QAM Discharge Medication List Fluticasone/Umeclidin/Vilanter [Trelegy Ellipta 100-62.5-25] 1 puff INHALATION RT-DAILY PRN 11/01/21 [History] Nitroglycerin Sl Tabs [Nitrostat] 0.4 mg SL Q5M PRN 04/16/22 [History] Albuterol Sulfate [Ventolin HFA] 1 puff INHALATION RT-Q6H PRN 09/16/22 [History] Gabapentin [Neurontin] 300 mg PO TID 09/16/22 [History] Albuterol Nebulized [Ventolin Nebulized] 2.5 mg INHALATION RT-QID PRN 11/07/22 [History] Clopidogrel [Plavix] 75 mg PO QAM 01/13/23 [History] Letrozole 2.5 mg PO QAM 01/13/23 [History] HYDROcodone/APAP 5-325MG [[place] 5-325] 1 tab PO DAILY PRN 02/16/23 [History] Furosemide [Lasix] 20 mg PO QAM 05/20/23 [History] cefUROXime axetiL [Ceftin] 500 mg PO BID 10 Days #20 tab 05/25/23 [Rx] Amiodarone [Cordarone] 400 mg PO BID 06/03/23 [History] Famotidine [Pepcid] 20 mg PO QAM 06/03/23 [History] Sertraline [Zoloft] 25 mg PO QAM 06/03/23 [History] Warfarin [Coumadin] 2.5 mg PO DAILY@1800 06/03/23 [History] Follow up Appointment(s)/Referral(s): Tiesha Tadeo DO [STAFF PHYSICIAN] - 1 Week Activity/Diet/Wound Care/Special Instructions: Resume activity as tolerated. Resume regular diet. May resume medication starting tomorrow. Continue offloading. Discharge Disposition: HOME SELF-CARE
--- NOTE | 2023-06-04 14:55 | P.PN ---
Progress Note - Text Progress Note Date: 06/04/23 Patient currently without overt need for reason for admission. She is on home oxygen. Long discussion had with her grandson who is her visual manager about potential admission to the hospital for rehab placement. He states it is not some and he is interested in unless it is medically necessary. Discussed with him that we will continue to monitor and recovery and if she appears to be continuing to tolerate post-sedation well likely could go home. At this point she was maintaining her oxygen saturation on O2, which she is on at home. We'll plan for short follow-up with myself as well as primary
[2023-06-04 16:04] VITALS: RESP 17
[2023-06-04 16:28] VITALS: BP 147/70; PULSE 75
== END 2023-06-04 17:04 | disposition home or self-care (01) ==
LOC: OR 10:52
PROVIDERS: ATTEND Surgery
DX: T87.89 Other complications of amputation stump (principal); Y83.8 Other surgical procedures as the cause of abnormal reaction of the patient, or of later complication, without mention of misadventure at the time of the procedure; I11.0 Hypertensive heart disease with heart failure; E78.5 Hyperlipidemia, unspecified; I48.91 Unspecified atrial fibrillation; J44.9 Chronic obstructive pulmonary disease, unspecified; G47.33 Obstructive sleep apnea (adult) (pediatric); Z86.73 Personal history of transient ischemic attack (TIA), and cerebral infarction without residual deficits; Z88.9 Allergy status to unspecified drugs, medicaments and biological substances; Z79.01 Long term (current) use of anticoagulants; Z79.02 Long term (current) use of antithrombotics/antiplatelets; Z99.81 Dependence on supplemental oxygen; Z79.811 Long term (current) use of aromatase inhibitors; Z79.899 Other long term (current) drug therapy
CPT/HCPCS: 15271; 15275; J2001; J2250; J0690; J3010; J2704